=== PATIENT | male | born 1940 | race Caucasian/White ===

== ENCOUNTER 2018-08-19 12:49 | Inpatient (IN) | payer MEDICARE, SELFPAY ==
[2018-08-19 12:50] VITALS: BP 153/75; PULSE 55; RESP 16; TEMP 36.6; O2SAT 95; BMI 29.8
[2018-08-19 12:54] VITALS: PULSE 55; RESP 18; O2SAT 94
--- NOTE | 2018-08-19 13:23 | RAD_ITS ---
STUDY: X-RAY CHEST REASON FOR EXAM: Male, 78 years old. Preoperative evaluation. TECHNIQUE: Single AP portable view of the chest. COMPARISON: Comparison is made with prior study dated November 22, 2015. FINDINGS: Stable elevation of the left hemidiaphragm. Mild increased markings at the left lung base suggests above the scarring. There is no demonstrated pleural abnormality. Normal size heart. Normal mediastinum and cuca. Normal visualized pulmonary arteries. There is atherosclerotic tortuosity of the aortic arch and descending thoracic aorta. There are diffuse degenerative changes of the visualized thoracic spine. Prior fusion of the lower cervical spine. Surgical clips are seen in the left upper quadrant. RAD/Chest 1 View (Portable) IMPRESSION: Stable elevation of the left hemidiaphragm with mild left basilar scarring. Electronically Signed: Missael Sterling MD at 14:18 EDT Tel [phone], Service support ,
--- NOTE | 2018-08-19 13:23 | RAD_ITS ---
STUDY: X-RAY - PELVIS AND RIGHT HIP REASON FOR EXAM: Male, 78 years old. Right hip pain following a fall. TECHNIQUE: Radiological exam, hip, unilateral, with pelvis when performed; 2 or 3 views. COMPARISON: None. FINDINGS: There is a non-specific bowel gas pattern. There are atherosclerotic vascular calcifications of the pelvic arteries. Nondisplaced transcervical fracture of the proximal right femur. RAD/HIP, UNI W/ Pelvis 2-3 Views IMPRESSION: Nondisplaced transcervical fracture of the proximal right femur. Electronically Signed: Missael Sterling MD at 14:18 EDT Tel [phone], Service support ,
--- NOTE | 2018-08-19 13:23 | EKG12_ITS ---
Test Reason : FALL Blood Pressure : / mmHG Vent. Rate : 056 BPM Atrial Rate : 056 BPM P-R Int : 188 ms QRS Dur : 136 ms QT Int : 506 ms P-R-T Axes : 034 -18 124 degrees QTc Int : 488 ms Sinus bradycardia Left bundle branch block Abnormal ECG Confirmed by NATALIO MALCOLM, CHERRY ([id number]), book or script editor DINA KURTZ ([id number] on 08/25/2018 3:31:29 PM Referred By: James Griffiths Confirmed By:CHERRY LANCE MD
[2018-08-19] MEDS: Ondansetron 4 MG/2 ML Vial IV ×2 (13:44→20:41)
[2018-08-19] MEDS: Morphine 4 MG/ML Syringe IV ×2 (13:45→20:41)
[2018-08-19 13:50] LABS: Absolute Lymphocyte Count 2.02 X10^3/ul (0.83-4.51); Absolute Neutrophil Count 8.8 X10^3/uL (2.0-7.7); Basophil# 0.01 X10^3/uL; Basophil% 0.1 % (0-1); Eosinophil# 0.03 X10^3/uL; Eosinophils% 0.3 % (0-5); Hemoglobin 13.6 g/dl (13.0-16.5); Lymphocyte # 2.02 X10^3/ul (4.0); Lymphocyte % 17.8 % (19-41); Mean Corpuscular Hgb 31.8 pg (27.0-32.0); Mean Corpuscular Volume 93.5 fL (80-94); Mean Platelet Vol. 9.4 fl (6.2-12.0); Monocyte# 0.49 X10^3/uL; Monocyte% 4.3 % (0-10); Neutrophil # 8.76 X10^3/uL (2.7-7.7); Neutrophil % 77.3 % (47-70); POSITIVE COUNT NO; POSITIVE DIFFERENTIAL NO; POSITIVE MORPHOLOGY NO; Platelet Count 190 K/mm3 (150-450); RBC Distribution Width CV 16.2 % (11.6-14.6); RBC Distribution Width SD 53.6 fl (35.1-43.9); Red Blood Count 4.28 M/mm3 (4.6-6.2); White Blood Count 11.3 K/mm3 (4.4-11.0)
[2018-08-19 13:51] LABS: International Normalized Ratio 1.1; Prothrombin Time (Protime)PT. 14.1 SECONDS (11.7-14.9)
[2018-08-19 13:56] LABS: Anion Gap 5 (5-15); BUN 20 mg/dL (7-18); BUN/Creat Ratio 21.6 RATIO (10-20); Calcium,Total 9.2 mg/dL (8.5-10.1); Chloride 108 mmol/L (98-107); Creatinine, Serum 0.93 mg/dL (0.70-1.30); EST Glomerular Filtration Rate 84 mL/min (>60); Est Glom Filt Rate - Afr Amer 102 mL/min (>60); Estimated Creatinine Clearance 58.78 ml/min; Glucose 90 mg/dL (74-106); Potassium 4.4 mmol/L (3.5-5.1); Sodium Level 140 mmol/L (136-145)
[2018-08-19 14:47] VITALS: BP 118/58; PULSE 58; RESP 16; O2SAT 93
--- NOTE | 2018-08-19 15:12 | ED.DCSUM_ITS ---
- ER Visit Summary Date of Service: 08/19/18 Chief Complaint: Hip pain History of Present Illness: Is a pleasant 78-year-old male who presents with right hip pain after a fall. He fell while walking down the steps. He states he lost his balance. He fell down about 3 steps onto his right side. He complains of right hip pain. This is only mild while laying in the bed but is severe with attempts at movement. He was unable to ambulate unable to get up on his own. He did not have a phone with him. He was found by family member when they came home for lunch a few hours later. He denies any significant head injury. He denies loss of consciousness amnesia headache or vomiting. He is not anticoagulated. He complains of isolated right hip pain. Physical Examination: Afebrile vitals unremarkable No distress Heart regular rate and rhythm Lungs clear Abdomen soft Painful limited range of motion of the right hip he is neurovascularly intact distally with brisk capillary refill normal sensation light touch active full range of motion of the left lower and bilateral upper extremities GCS of 15 with no focal or lateralizing neurological deficits Test Results: EKG shows sinus rhythm at a rate of 56. Chest x-ray shows left basilar scarring. Right hip x-ray shows a transcervical right femur fracture. Serum laboratory studies are unremarkable. Emergency Department Course and Treatment: Patient was treated with morphine and Zofran here. Workup as above notable for right hip fracture. I spoke to Dr. Parker who will see the patient in consultation and the patient was admitted under the hospitalist service. Treatment Plan: [] Disposition: Admit Impression: Right hip fracture This note was generated with [employer] dictation software. It may contain incorrect words, spelling, and punctuation that were not noted in review of the chart prior to signing ED Disposition - Plan for ED Patient: Chief Complaint: Fall Referrals: Wilfred Vázquez III, MD [Primary Care Provider] -
--- NOTE | 2018-08-19 15:28 | PCM.HP.STD ---
<Estrella Rendon - Last Filed: 08/19/18 15:43> Problem List (1) BPH Status: Chronic (2) Chronic systolic congestive heart failur Status: Chronic Comment: Ejection fraction 35% in 2013, following with Dr. 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 Zamoarno, in remission Follow up with Dr. Mercado after discharge. (6) Hypertension Status: Chronic (7) Multilobar Pneumonia Status: Resolved (8) Ethmoid sinusitis Status: Resolved (9) Tendonitis Status: Resolved Comment: Acute Longus Colii tendonitis noted on MRI C-spine. (10) Acute kidney injury Status: Resolved Comment: Prerenal azotemia secondary to poor oral intake. (11) Hyperlipidemia Status: Chronic History of Present Illness Date of Admission: 08/19/18 Chief Complaint: Fall, right hip pain. The patient is a 78 year old M who presents to the emergency room with right hip pain after sustaining a fall this morning at home. Patient states he was walking down the steps and thinks he missed the bottom step, causing him to fall. He denies syncope. Denies hitting head. He was not able to get up due to hip pain and remained on the floor for 3 hours until returned home. He denies symptoms prior to fall. Denies recent or frequent falls at home. He has a past medical history of type 2 diabetes mellitus, chronic systolic CHF, BPH, gout, hypertension, hyperlipidemia, and remote history of hairy cell leukemia. Past Medical History Past Medical History (Chronic Problems): Chronic Problems (Last Updated 04/29/18 @ 15:17 by Pushpa Diez) BPH (Chronic) Chronic systolic congestive heart failur (Chronic) Ejection fraction 35% in 2013, following with Dr. Oliva Status post cardiac catheterization 2004, without obstructive coronary artery disease Diabetes mellitus type II (Chronic) Gout (Chronic) History of remote hairy cell leukemia (Chronic) Was following with Dr. Zamorano, in remission Follow up with Dr. Mercado after discharge. Hypertension (Chronic) Hyperlipidemia (Chronic) Medical History: Medical History (Last Updated 04/29/18 @ 15:17 by Pushpa Diez) Encephalopathy G93.40 Hairy cell leukemia C91.40 Allergies No Known Allergies Allergy (Verified 08/19/18 12:53) Home Medications: Ambulatory Orders Medication Instructions Recorded Atorvastatin Calcium [Lipitor] 10 mg PO QHS 11/20/15 Doxazosin Mesylate [Cardura] 1 mg PO QHS 11/20/15 Metformin HCl [Glucophage] 500 mg PO BIDCM 11/20/15 Donepezil HCl [Aricept] 5 mg PO DAILY 11/28/17 Meloxicam 7.5 mg PO DAILY 11/28/17 Paroxetine [Paxil] 10 mg PO DAILY 11/28/17 Allopurinol [Zyloprim] 300 mg PO DAILY 04/30/18 Surgical History: - - Splenectomy, back surgery x2, tonsillectomy, knee surgery. Psychiatric History: No pertinent psych hx Lives: Spouse/ Significant Other Smoking Status: Former smoker - 16-buog-qibi smoking history, quit in 1998. Alcohol: None Drugs: None - *Family History Maternal History Items: Cancer - Ovarian Paternal History Items: Hypertension - Passed from MD Review of Systems Constitutional: Denies: Chills, Fever, Weight Change HEENT: Denies: Head Aches, Sinus Congestion, Sinus Drainage Cardiovascular: Denies: Chest Pain, Palpitations Respiratory: Denies: Cough, Shortness of breath at rest, Sputum production Gastrointestinal: Denies: Abdominal Pain, Nausea, Vomiting Genitourinary: Denies: Dysuria Musculoskeletal: Reports: - - Right hip pain. Skin: Denies: Rash, Wounds Neurological: Denies: Numbness, Tingling, Focal weakness Psychiatric: Denies: Anxiety, Depression, Homicidal Ideations, Suicidal Ideations Hematologic/ Lymphatic: Denies: Easy Bruising, Easy Bleeding VTE Information - Inpt Only VTE Present on Admission: No VTE Mechan Device Prophylaxis: None VTE Pharm Prophylaxis ordered?: Yes Patient Problems: Active and Suspected Problems (Last Updated 04/29/18 @ 15:17 by Pushpa Diez) Closed right hip fracture (Acute) - Physical Exam General: Alert, Oriented x3, Cooperative, No apparent distress HEENT: Atraumatic, PERRLA, EOMI, Normocephalic Neck: Supple, No JVD, Negative Carotid Bruits Lungs: Clear to auscultation, Normal air movement Cardiovascular: Regular Rhythm, Normal S1, Normal S2, No murmurs, Bradycardic - Mild Abdomen: Bowel Sounds Present, Soft, Non Tender, Non-Distended Extremities: No clubbing, No cyanosis, No edema, Capillary Refill Less than 3 Seconds Skin: No rashes, No breakdown, - - Left arm skin tears. BLUE ecchymosis. Musculoskeletal: Tenderness - Right hip Neurological: Cranial nerves II-XII grossly intact, Neuro grossly intact Psych/Mental Status: Normal Affect, Appropriate Vital Signs Temp Pulse Resp BP Pulse Ox 97.8 F 58 L 16 118/58 L 93 08/19/18 12:50 08/19/18 14:47 08/19/18 14:47 08/19/18 14:47 08/19/18 14:47 Oxygen Delivery Method Room Air Weight: 179 lb 3.773 oz Body Mass Index (BMI) 29.8 Laboratory Tests Past 24 Hrs 08/19/18 08/19/18 08/19/18 13:35 13:35 13:35 WBC 11.3 H RBC 4.28 L Hgb 13.6 Hct 40.0 MCV 93.5 MCH 31.8 MCHC 34.0 RDW 16.2 H RDW Differential 53.6 H Plt Count 190 MPV 9.4 Immature Gran % (Auto) 0.200 Neut % (Auto) 77.3 H Lymph % (Auto) 17.8 L Walton % (Auto) 4.3 Eos % (Auto) 0.3 Baso % (Auto) 0.1 Absolute Neuts (auto) 8.8 H Absolute Lymphs (auto) 2.02 Total Counted Not Reportable PT 14.1 INR 1.1 Sodium 140 Potassium 4.4 Chloride 108 H Carbon Dioxide 27.0 Anion Gap 5 BUN 20 H Creatinine 0.93 Estim Creat Clear Calc 58.78 Est GFR (MDRD) Af Amer 102 Est GFR (MDRD) Non-Af 84 BUN/Creatinine Ratio 21.6 H Glucose 90 Calcium 9.2 Assessment/Plan All Active Problems (Last Updated 04/29/18 @ 15:17 by Pushpa Diez) Closed right hip fracture (Acute) Acute kidney injury (Resolved) Ethmoid sinusitis (Resolved) Multilobar Pneumonia (Resolved) Tendonitis (Resolved) 1. Traumatic proximal right femur fracture, nondisplaced, secondary to mechanical fall prior to admission- Dr. Parker, ortho consulted from ER. PT/OT. PRN pain regimen. 2. Hypertension-mildly elevated on admission, suspect secondary to pain. Patient not on regimen although reported history of HTN. Continue to monitor. 3. Hyperlipidemia-continue statin. 4. Type 2 diabetes mellitus-hold metformin regimen. Accu-Cheks before meals at bedtime with sliding scale insulin. 5. Chronic systolic CHF-patient follows with Dr. Wells, [facility] cardiology. EF reported to be 35% in 2013. Patient states he had routine cardiac workup [address] Shah which included repeat echo and EKG. Request records. 6. BPH-continue doxazosin regimen. 7. Gout-continue allopurinol regimen. 8. 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 Continue outpatient routine follow-up with oncology. 9. Mild cognitive impairment/depression-continue home Aricept and paroxetine regimen. DVT prophylaxis- Lovenox sc. This patient was seen by TAMMY Jimenez under the supervision of Dr. Griffiths. <James Griffiths - Last Filed: 08/19/18 15:54> Problem List (1) Closed right hip fracture Status: Acute Qualifiers: Encounter type: initial encounter Qualified Code(s): S72.001A - Fracture of unspecified part of neck of right femur, initial encounter for closed fracture History of Present Illness The patient is a 78 year old M who slipped off a step landed on his right hip. Patient was unable to get up and unable to contact anyone so he laid on his back for about 3 hours. Patient's arrived and noticed that he was on the floor and then 911. Patient presented to the emergency room and had a proximal right femur fracture. Dr. Sandoval of orthopedics was contacted and would see the patient in consultation. The hospital service will be admitting. [] Past Medical History Medical History: Medical History (Last Updated 08/19/18 @ 15:49 by James Griffiths DO) DM2 (diabetes mellitus, type 2) E11.9 Gout M10.9 Heart failure with reduced ejection fraction I50.20 HTN (hypertension) I10 Encephalopathy G93.40 Hairy cell leukemia C91.40 Allergies No Known Allergies Allergy (Verified 08/19/18 12:53) Surgical History: - Psychiatric History: No pertinent psych hx Lives: Spouse/ Significant Other Smoking Status: Former smoker Alcohol: None Drugs: None - *Family History Maternal History Items: Cancer Paternal History Items: Hypertension Review of Systems Constitutional: Denies: Chills, Fever, Weight Change HEENT: Denies: Head Aches, Sinus Congestion, Sinus Drainage Cardiovascular: Denies: Chest Pain, Palpitations Respiratory: Denies: Cough, Shortness of breath at rest, Sputum production Gastrointestinal: Denies: Abdominal Pain, Nausea, Vomiting Genitourinary: Denies: Dysuria Musculoskeletal: Reports: - Skin: Denies: Rash, Wounds Neurological: Denies: Focal weakness, Numbness, Tingling Psychiatric: Denies: Anxiety, Depression, Homicidal Ideations, Suicidal Ideations Hematologic/ Lymphatic: Denies: Easy Bruising, Easy Bleeding Comment: All review of systems are negative except as mentioned in the history of present illness and the other review of systems. VTE Information - Inpt Only VTE Present on Admission: No VTE Mechan Device Prophylaxis: SCD's VTE Pharm Prophylaxis ordered?: No - Physical Exam General: Alert, Cooperative, No apparent distress HEENT: Atraumatic, Normocephalic Neck: No Nodes, Thyroid Normal Size and Texture Lungs: Clear to auscultation, Normal air movement Cardiovascular: Regular Rhythm, Normal S1, Normal S2, No murmurs Abdomen: Bowel Sounds Present, Soft, Non Tender, Non-Distended Extremities: No edema, No Calf Tenderness, - - Shortened right lower extremity as compared to the left Skin: No rashes, No breakdown, - Musculoskeletal: Tenderness Neurological: Cranial nerves II-XII grossly intact, Neuro grossly intact Psych/Mental Status: Normal Affect, Appropriate Vital Signs Temp Pulse Resp BP Pulse Ox 36.6 C 58 L 16 118/58 L 93 08/19/18 12:50 08/19/18 14:47 08/19/18 14:47 08/19/18 14:47 08/19/18 14:47 Oxygen Delivery Method Room Air Weight: 81.3 kg Body Mass Index (BMI) 29.8 Laboratory Tests Past 24 Hrs 08/19/18 08/19/18 08/19/18 13:35 13:35 13:35 WBC 11.3 H RBC 4.28 L Hgb 13.6 Hct 40.0 MCV 93.5 MCH 31.8 MCHC 34.0 RDW 16.2 H RDW Differential 53.6 H Plt Count 190 MPV 9.4 Immature Gran % (Auto) 0.200 Neut % (Auto) 77.3 H Lymph % (Auto) 17.8 L Walton % (Auto) 4.3 Eos % (Auto) 0.3 Baso % (Auto) 0.1 Absolute Neuts (auto) 8.8 H Absolute Lymphs (auto) 2.02 Total Counted Not Reportable PT 14.1 INR 1.1 Sodium 140 Potassium 4.4 Chloride 108 H Carbon Dioxide 27.0 Anion Gap 5 BUN 20 H Creatinine 0.93 Estim Creat Clear Calc 58.78 Est GFR (MDRD) Af Amer 102 Est GFR (MDRD) Non-Af 84 BUN/Creatinine Ratio 21.6 H Glucose 90 Calcium 9.2 Clinical Impression(s) from Imaging Studies Chest X-Ray 08/19/18 13:23 IMPRESSION: Stable elevation of the left hemidiaphragm with mild left basilar scarring. Electronically Signed: Missael Sterling MD at 14:18 EDT Tel [phone], Service support , Hip/Pelvis X-Ray 08/19/18 13:23 IMPRESSION: Nondisplaced transcervical fracture of the proximal right femur. Electronically Signed: Missael Sterling MD at 14:18 EDT Tel [phone], Service support , EKG reviewed and showed normal sinus with a left bundle branch block. Unchanged from November 20, 2015. Assessment/Plan Patient seen and examined independently. Data reviewed. I agree with the above note by the nurse practitioner. 1. Right hip fracture/proximal right femur fracture Due to a mechanical fall Patient able to engage in greater than 4 mets of activity so patient is medically cleared to proceed with surgery Will check a 25-hydroxy vitamin D level and patient may require supplementation with vitamin D supplements based on those results. 2. Heart failure with reduced ejection fraction EF of 35% based on echocardiogram from 2013 Recently saw his beach attendant and was deemed stable at that time Caution with IV fluids if necessary 3. Diabetes mellitus type 2 Hold metformin for now Moderate dose sliding scale 4. DVT prophylaxis with SCDs for now after surgery, though will be to the discretion of orthopedics. Code Visit Inpatient E&M: 45424 Init Hosp L3
--- NOTE | 2018-08-19 15:32 | HP.PCM_ITS ---
<Estrella Rendon - Last Filed: 08/19/18 15:43> Problem List (1) BPH Status: Chronic (2) Chronic systolic congestive heart failur Status: Chronic Comment: Ejection fraction 35% in 2013, following with Dr. 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 Zamorano, in remission Follow up with Dr. Mercado after discharge. (6) Hypertension Status: Chronic (7) Multilobar Pneumonia Status: Resolved (8) Ethmoid sinusitis Status: Resolved (9) Tendonitis Status: Resolved Comment: Acute Longus Colii tendonitis noted on MRI C-spine. (10) Acute kidney injury Status: Resolved Comment: Prerenal azotemia secondary to poor oral intake. (11) Hyperlipidemia Status: Chronic History of Present Illness Date of Admission: 08/19/18 Chief Complaint: Fall, right hip pain. The patient is a 78 year old M who presents to the emergency room with right hip pain after sustaining a fall this morning at home. Patient states he was walking down the steps and thinks he missed the bottom step, causing him to fall. He denies syncope. Denies hitting head. He was not able to get up due to hip pain and remained on the floor for 3 hours until returned home. He denies symptoms prior to fall. Denies recent or frequent falls at home. He has a past medical history of type 2 diabetes mellitus, chronic systolic CHF, BPH, gout, hypertension, hyperlipidemia, and remote history of hairy cell leukemia. Past Medical History Past Medical History (Chronic Problems): Chronic Problems (Last Updated 04/29/18 @ 15:17 by Pushpa Diez) BPH (Chronic) Chronic systolic congestive heart failur (Chronic) Ejection fraction 35% in 2013, following with Dr. Oliva Status post cardiac catheterization 2004, without obstructive coronary artery disease Diabetes mellitus type II (Chronic) Gout (Chronic) History of remote hairy cell leukemia (Chronic) Was following with Dr. Zamorano, in remission Follow up with Dr. Mercado after discharge. Hypertension (Chronic) Hyperlipidemia (Chronic) Medical History: Medical History (Last Updated 04/29/18 @ 15:17 by Pushpa Diez) Encephalopathy G93.40 Hairy cell leukemia C91.40 Allergies No Known Allergies Allergy (Verified 08/19/18 12:53) Home Medications: Ambulatory Orders Medication Instructions Recorded Atorvastatin Calcium [Lipitor] 10 mg PO QHS 11/20/15 Doxazosin Mesylate [Cardura] 1 mg PO QHS 11/20/15 Metformin HCl [Glucophage] 500 mg PO BIDCM 11/20/15 Donepezil HCl [Aricept] 5 mg PO DAILY 11/28/17 Meloxicam 7.5 mg PO DAILY 11/28/17 Paroxetine [Paxil] 10 mg PO DAILY 11/28/17 Allopurinol [Zyloprim] 300 mg PO DAILY 04/30/18 Surgical History: - - Splenectomy, back surgery x2, tonsillectomy, knee surgery. Psychiatric History: No pertinent psych hx Lives: Spouse/ Significant Other Smoking Status: Former smoker - [id number] smoking history, quit in 1998. Alcohol: None Drugs: None - *Family History Maternal History Items: Cancer - Ovarian Paternal History Items: Hypertension - Passed from [place] Review of Systems Constitutional: Denies: Chills, Fever, Weight Change HEENT: Denies: Head Aches, Sinus Congestion, Sinus Drainage Cardiovascular: Denies: Chest Pain, Palpitations Respiratory: Denies: Cough, Shortness of breath at rest, Sputum production Gastrointestinal: Denies: Abdominal Pain, Nausea, Vomiting Genitourinary: Denies: Dysuria Musculoskeletal: Reports: - - Right hip pain. Skin: Denies: Rash, Wounds Neurological: Denies: Numbness, Tingling, Focal weakness Psychiatric: Denies: Anxiety, Depression, Homicidal Ideations, Suicidal Ideations Hematologic/ Lymphatic: Denies: Easy Bruising, Easy Bleeding VTE Information - Inpt Only VTE Present on Admission: No VTE Mechan Device Prophylaxis: None VTE Pharm Prophylaxis ordered?: Yes Patient Problems: Active and Suspected Problems (Last Updated 04/29/18 @ 15:17 by Pushpa Diez) Closed right hip fracture (Acute) - Physical Exam General: Alert, Oriented x3, Cooperative, No apparent distress HEENT: Atraumatic, PERRLA, EOMI, Normocephalic Neck: Supple, No JVD, Negative Carotid Bruits Lungs: Clear to auscultation, Normal air movement Cardiovascular: Regular Rhythm, Normal S1, Normal S2, No murmurs, Bradycardic - Mild Abdomen: Bowel Sounds Present, Soft, Non Tender, Non-Distended Extremities: No clubbing, No cyanosis, No edema, Capillary Refill Less than 3 Seconds Skin: No rashes, No breakdown, - - Left arm skin tears. BLUE ecchymosis. Musculoskeletal: Tenderness - Right hip Neurological: Cranial nerves II-XII grossly intact, Neuro grossly intact Psych/Mental Status: Normal Affect, Appropriate Vital Signs Temp Pulse Resp BP Pulse Ox 97.8 F 58 L 16 118/58 L 93 08/19/18 12:50 08/19/18 14:47 08/19/18 14:47 08/19/18 14:47 08/19/18 14:47 Oxygen Delivery Method Room Air Weight: 179 lb 3.773 oz Body Mass Index (BMI) 29.8 Laboratory Tests Past 24 Hrs 08/19/18 08/19/18 08/19/18 13:35 13:35 13:35 WBC 11.3 H RBC 4.28 L Hgb 13.6 Hct 40.0 MCV 93.5 MCH 31.8 MCHC 34.0 RDW 16.2 H RDW Differential 53.6 H Plt Count 190 MPV 9.4 Immature Gran % (Auto) 0.200 Neut % (Auto) 77.3 H Lymph % (Auto) 17.8 L [place] % (Auto) 4.3 Eos % (Auto) 0.3 Baso % (Auto) 0.1 Absolute Neuts (auto) 8.8 H Absolute Lymphs (auto) 2.02 Total Counted Not Reportable PT 14.1 INR 1.1 Sodium 140 Potassium 4.4 Chloride 108 H Carbon Dioxide 27.0 Anion Gap 5 BUN 20 H Creatinine 0.93 Estim Creat Clear Calc 58.78 Est GFR (MDRD) Af Amer 102 Est GFR (MDRD) Non-Af 84 BUN/Creatinine Ratio 21.6 H Glucose 90 Calcium 9.2 Assessment/Plan All Active Problems (Last Updated 04/29/18 @ 15:17 by Pushpa Diez) Closed right hip fracture (Acute) Acute kidney injury (Resolved) Ethmoid sinusitis (Resolved) Multilobar Pneumonia (Resolved) Tendonitis (Resolved) 1. Traumatic proximal right femur fracture, nondisplaced, secondary to mechanical fall prior to admission- Dr. Parker, ortho consulted from ER. PT/OT. PRN pain regimen. 2. Hypertension-mildly elevated on admission, suspect secondary to pain. Patient not on regimen although reported history of HTN. Continue to monitor. 3. Hyperlipidemia-continue statin. 4. Type 2 diabetes mellitus-hold metformin regimen. Accu-Cheks before meals at bedtime with sliding scale insulin. 5. Chronic systolic CHF-patient follows with Dr. Wells, [facility] cardiology. EF reported to be 35% in 2013. Patient states he had routine cardiac workup [address] Shah which included repeat echo and EKG. Request records. 6. BPH-continue doxazosin regimen. 7. Gout-continue allopurinol regimen. 8. 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 Continue outpatient routine follow-up with oncology. 9. Mild cognitive impairment/depression-continue home Aricept and paroxetine regimen. DVT prophylaxis- Lovenox sc. This patient was seen by TAMMY Jimenez under the supervision of Dr. Griffiths. <James Griffiths - Last Filed: 08/19/18 15:54> Problem List (1) Closed right hip fracture Status: Acute Qualifiers: Encounter type: initial encounter Qualified Code(s): S72.001A - Fracture of unspecified part of neck of right femur, initial encounter for closed fracture History of Present Illness The patient is a 78 year old M who slipped off a step landed on his right hip. Patient was unable to get up and unable to contact anyone so he laid on his back for about 3 hours. Patient's arrived and noticed that he was on the floor and then 911. Patient presented to the emergency room and had a proximal right femur fracture. Dr. Sandoval of orthopedics was contacted and would see the patient in consultation. The hospital service will be admitting. [] Past Medical History Medical History: Medical History (Last Updated 08/19/18 @ 15:49 by James Griffiths DO) DM2 (diabetes mellitus, type 2) E11.9 Gout M10.9 Heart failure with reduced ejection fraction I50.20 HTN (hypertension) I10 Encephalopathy G93.40 Hairy cell leukemia C91.40 Allergies No Known Allergies Allergy (Verified 08/19/18 12:53) Surgical History: - Psychiatric History: No pertinent psych hx Lives: Spouse/ Significant Other Smoking Status: Former smoker Alcohol: None Drugs: None - *Family History Maternal History Items: Cancer Paternal History Items: Hypertension Review of Systems Constitutional: Denies: Chills, Fever, Weight Change HEENT: Denies: Head Aches, Sinus Congestion, Sinus Drainage Cardiovascular: Denies: Chest Pain, Palpitations Respiratory: Denies: Cough, Shortness of breath at rest, Sputum production Gastrointestinal: Denies: Abdominal Pain, Nausea, Vomiting Genitourinary: Denies: Dysuria Musculoskeletal: Reports: - Skin: Denies: Rash, Wounds Neurological: Denies: Focal weakness, Numbness, Tingling Psychiatric: Denies: Anxiety, Depression, Homicidal Ideations, Suicidal Ideations Hematologic/ Lymphatic: Denies: Easy Bruising, Easy Bleeding Comment: All review of systems are negative except as mentioned in the history of present illness and the other review of systems. VTE Information - Inpt Only VTE Present on Admission: No VTE Mechan Device Prophylaxis: SCD's VTE Pharm Prophylaxis ordered?: No - Physical Exam General: Alert, Cooperative, No apparent distress HEENT: Atraumatic, Normocephalic Neck: No Nodes, Thyroid Normal Size and Texture Lungs: Clear to auscultation, Normal air movement Cardiovascular: Regular Rhythm, Normal S1, Normal S2, No murmurs Abdomen: Bowel Sounds Present, Soft, Non Tender, Non-Distended Extremities: No edema, No Calf Tenderness, - - Shortened right lower extremity as compared to the left Skin: No rashes, No breakdown, - Musculoskeletal: Tenderness Neurological: Cranial nerves II-XII grossly intact, Neuro grossly intact Psych/Mental Status: Normal Affect, Appropriate Vital Signs Temp Pulse Resp BP Pulse Ox 36.6 C 58 L 16 118/58 L 93 08/19/18 12:50 08/19/18 14:47 08/19/18 14:47 08/19/18 14:47 08/19/18 14:47 Oxygen Delivery Method Room Air Weight: 81.3 kg Body Mass Index (BMI) 29.8 Laboratory Tests Past 24 Hrs 08/19/18 08/19/18 08/19/18 13:35 13:35 13:35 WBC 11.3 H RBC 4.28 L Hgb 13.6 Hct 40.0 MCV 93.5 MCH 31.8 MCHC 34.0 RDW 16.2 H RDW Differential 53.6 H Plt Count 190 MPV 9.4 Immature Gran % (Auto) 0.200 Neut % (Auto) 77.3 H Lymph % (Auto) 17.8 L [place] % (Auto) 4.3 Eos % (Auto) 0.3 Baso % (Auto) 0.1 Absolute Neuts (auto) 8.8 H Absolute Lymphs (auto) 2.02 Total Counted Not Reportable PT 14.1 INR 1.1 Sodium 140 Potassium 4.4 Chloride 108 H Carbon Dioxide 27.0 Anion Gap 5 BUN 20 H Creatinine 0.93 Estim Creat Clear Calc 58.78 Est GFR (MDRD) Af Amer 102 Est GFR (MDRD) Non-Af 84 BUN/Creatinine Ratio 21.6 H Glucose 90 Calcium 9.2 Clinical Impression(s) from Imaging Studies Chest X-Ray 08/19/18 13:23 IMPRESSION: Stable elevation of the left hemidiaphragm with mild left basilar scarring. Electronically Signed: Missael Sterling MD at 14:18 EDT Tel [phone], Service support , Hip/Pelvis X-Ray 08/19/18 13:23 IMPRESSION: Nondisplaced transcervical fracture of the proximal right femur. Electronically Signed: Missael Sterling MD at 14:18 EDT Tel [phone], Service support , EKG reviewed and showed normal sinus with a left bundle branch block. Unchanged from November 20, 2015. Assessment/Plan Patient seen and examined independently. Data reviewed. I agree with the above note by the nurse practitioner. 1. Right hip fracture/proximal right femur fracture * Due to a mechanical fall * Patient able to engage in greater than 4 mets of activity so patient is medically cleared to proceed with surgery * Will check a 25-hydroxy vitamin D level and patient may require supplementation with vitamin D supplements based on those results. 2. Heart failure with reduced ejection fraction * EF of 35% based on echocardiogram from 2013 * Recently saw his enterprise systems manager and was deemed stable at that time * Caution with IV fluids if necessary 3. Diabetes mellitus type 2 * Hold metformin for now * Moderate dose sliding scale 4. DVT prophylaxis with SCDs for now after surgery, though will be to the discretion of orthopedics. Code Visit Inpatient E&M: 85228 Init Hosp L3
--- NOTE | 2018-08-19 15:34 | CM.ED ---
Patient lives in a one story home with stairs to the basement. He fell walking down the stairs today and now has a femur fracture. Discussed options for discharge planning with patient and spouse. Patient states his preference is for TCU. He stayed on TCU, in 2016, following a hospital admission. Call placed to Referral Line. Case discussed with Carmelina Davenport. She states she will have bed availability and will reserve a bed for the patient on TCU.
[2018-08-19 15:57] VITALS: BP 145/68; PULSE 52; RESP 16; TEMP 36.3; O2SAT 95
[2018-08-19] MEDS: Morphine 2 MG/ML Syringe IV (16:01)
[2018-08-19 16:11] VITALS: BMI 25.9
[2018-08-19 16:12] VITALS: BMI 26.0
--- NOTE | 2018-08-19 16:41 | CON.PCM_ITS ---
Reason for Consult Date of Consultation: 08/19/18 Reason for Consultation: right hip pain History of Present Illness: The patient is a 78 year old M [who fell at home today going down the stairs. He presented to [facility] ED reporting right hip pain. X-rays showed a subcapital fracture of the right hip. He was admitted to the hospital by the hospitalist and complains of only right hip pain. Denies N/T/P or other areas of pain.] Past Medical History Past Medical History (Chronic Problems): Chronic Problems (Last Updated 08/19/18 @ 15:49 by James Griffiths DO) BPH (Chronic) Chronic systolic congestive heart failur (Chronic) Ejection fraction 35% in 2013, following with Dr. Oliva Status post cardiac catheterization 2004, without obstructive coronary artery disease Diabetes mellitus type II (Chronic) Gout (Chronic) History of remote hairy cell leukemia (Chronic) Was following with Dr. Zamorano, in remission Follow up with Dr. Mercado after discharge. Hypertension (Chronic) Hyperlipidemia (Chronic) Medical History: Medical History (Last Updated 08/19/18 @ 15:49 by James Griffiths DO) DM2 (diabetes mellitus, type 2) E11.9 Gout M10.9 Heart failure with reduced ejection fraction I50.20 HTN (hypertension) I10 Encephalopathy G93.40 Hairy cell leukemia C91.40 Allergies No Known Allergies Allergy (Verified 08/19/18 12:53) Home Medications: Ambulatory Orders Medication Instructions Recorded Atorvastatin Calcium [Lipitor] 10 mg PO QHS 11/20/15 Doxazosin Mesylate [Cardura] 1 mg PO QHS 11/20/15 Metformin HCl [Glucophage] 500 mg PO BIDCM 11/20/15 Donepezil HCl [Aricept] 5 mg PO QHS 11/28/17 Meloxicam 7.5 mg PO DAILY 11/28/17 Paroxetine [Paxil] 10 mg PO DAILY 11/28/17 Allopurinol [Zyloprim] 300 mg PO DAILY 04/30/18 Surgical History: - Psychiatric History: No pertinent psych hx Lives: Spouse/ Significant Other Smoking Status: Former smoker Tobacco Use: Cigarettes Alcohol: None Drugs: None - *Family History Maternal History Items: Cancer Paternal History Items: Hypertension Patient Problems: Active and Suspected Problems (Last Updated 08/19/18 @ 15:49 by James Griffiths DO) Closed right hip fracture (Acute) - Physical Exam General: Alert, Oriented x3, No apparent distress HEENT: Atraumatic Neck: Supple, Trachea Midline Extremities: No clubbing, No cyanosis, Capillary Refill Less than 3 Seconds, No Calf Tenderness, Tenderness - Right hip RLE shortened and externally rotated. ROM not tested due to known fracture. Neurological: Neuro grossly intact Psych/Mental Status: Appropriate Vital Signs Temp Pulse Resp BP Pulse Ox 97.4 F L 52 L 16 145/68 H 95 08/19/18 15:57 08/19/18 15:57 08/19/18 15:57 08/19/18 15:57 08/19/18 15:57 Oxygen Flow Rate (L/min) 2 Oxygen Delivery Method Nasal Cannula Weight: 161 lb 2.526 oz Body Mass Index (BMI) 25.9 Laboratory Tests Past 24 Hrs 08/19/18 08/19/18 08/19/18 13:35 13:35 13:35 WBC 11.3 H RBC 4.28 L Hgb 13.6 Hct 40.0 MCV 93.5 MCH 31.8 MCHC 34.0 RDW 16.2 H RDW Differential 53.6 H Plt Count 190 MPV 9.4 Immature Gran % (Auto) 0.200 Neut % (Auto) 77.3 H Lymph % (Auto) 17.8 L [place] % (Auto) 4.3 Eos % (Auto) 0.3 Baso % (Auto) 0.1 Absolute Neuts (auto) 8.8 H Absolute Lymphs (auto) 2.02 Total Counted Not Reportable PT 14.1 INR 1.1 Sodium 140 Potassium 4.4 Chloride 108 H Carbon Dioxide 27.0 Anion Gap 5 BUN 20 H Creatinine 0.93 Estim Creat Clear Calc 58.78 Est GFR (MDRD) Af Amer 102 Est GFR (MDRD) Non-Af 84 BUN/Creatinine Ratio 21.6 H Glucose 90 Calcium 9.2 Assessment/Plan All Active Problems (Last Updated 08/19/18 @ 15:49 by James Griffiths DO) Closed right hip fracture (Acute) Acute kidney injury (Resolved) Ethmoid sinusitis (Resolved) Multilobar Pneumonia (Resolved) Tendonitis (Resolved) Garden classification IV right subcapital hip fracture Will plan on cemented hemiarthroplasty of the right hip tomorrow PM. All risks, benefits, potential complications and alternatives to surgery discusses with patient.
[2018-08-19] MEDS: oxyCODONE 5 MG Tablet PO ×2 (16:43→22:43)
[2018-08-19] MEDS: Acetaminophen 325 MG Tablet 650 MG PO ×2 (16:43→22:43)
[2018-08-19 16:55] LABS: Bedside Glucose 83 mg/dL (70-110)
[2018-08-19 20:26] VITALS: BP 134/59; PULSE 62; RESP 16; TEMP 36.6; O2SAT 97
[2018-08-19] MEDS: Atorvastatin Calcium 10 MG Tablet PO (20:41)
[2018-08-19] MEDS: Doxazosin 1 MG Tablet PO (20:41)
[2018-08-19] MEDS: 0.9% NaCl Peripheral Flush Adult/Peds IV (20:41)
[2018-08-19] MEDS: Donepezil HCl 5 MG Tablet PO (20:41)
[2018-08-19 22:41] LABS: Bedside Glucose 113 mg/dL (70-110)
[2018-08-20] VITALS (14 sets, daily range): BP systolic 108–151; BP diastolic 53–118; PULSE 58–122; RESP 16–18; TEMP 36.4–37.7; O2SAT 91–98; BMI 25.9; BMI 26.0
[2018-08-20] MEDS: 0.9% NaCl Peripheral Flush Adult/Peds IV ×2 (01:11→15:02)
[2018-08-20] MEDS: Morphine 4 MG/ML Syringe IV ×2 (01:11→21:18)
[2018-08-20] MEDS: oxyCODONE 5 MG Tablet PO (05:29)
[2018-08-20] MEDS: Acetaminophen 325 MG Tablet 650 MG PO (05:29)
[2018-08-20 06:31] LABS: Bedside Glucose 99 mg/dL (70-110)
[2018-08-20 06:34] LABS: Absolute Lymphocyte Count 1.89 X10^3/ul (0.83-4.51); Absolute Neutrophil Count 5.1 X10^3/uL (2.0-7.7); Basophil# 0.01 X10^3/uL; Basophil% 0.1 % (0-1); Eosinophil# 0.18 X10^3/uL; Eosinophils% 2.4 % (0-5); Hematocrit 41.3 % (40-54); Hemoglobin 13.1 g/dl (13.0-16.5); Lymphocyte # 1.89 X10^3/ul (4.0); Mean Corp Hgb Conc 31.7 g/gl (32-36); Mean Corpuscular Hgb 30.3 pg (27.0-32.0); Mean Corpuscular Volume 95.6 fL (80-94); Monocyte# 0.34 X10^3/uL; Monocyte% 4.5 % (0-10); Neutrophil # 5.13 X10^3/uL (2.7-7.7); Neutrophil % 67.9 % (47-70); POSITIVE COUNT NO; POSITIVE DIFFERENTIAL NO; POSITIVE MORPHOLOGY NO; Platelet Count 185 K/mm3 (150-450); RBC Distribution Width CV 16.4 % (11.6-14.6); RBC Distribution Width SD 58.1 fl (35.1-43.9); Red Blood Count 4.32 M/mm3 (4.6-6.2); White Blood Count 7.6 K/mm3 (4.4-11.0)
[2018-08-20 06:43] LABS: Anion Gap 6 (5-15); BUN 29 mg/dL (7-18); BUN/Creat Ratio 23.2 RATIO (10-20); Chloride 107 mmol/L (98-107); Creatinine, Serum 1.25 mg/dL (0.70-1.30); EST Glomerular Filtration Rate 60 mL/min (>60); Est Glom Filt Rate - Afr Amer 72 mL/min (>60); Estimated Creatinine Clearance 45.37 ml/min; Glucose 109 mg/dL (74-106); Potassium 4.5 mmol/L (3.5-5.1); Sodium Level 142 mmol/L (136-145)
[2018-08-20] MEDS: PARoxetine 10 MG Tablet PO (08:21)
[2018-08-20] MEDS: Allopurinol 300 MG Tablet PO (08:21)
[2018-08-20 08:42] LABS: Hemoglobin A1c 5.9 % (4.2-6.3)
[2018-08-20 09:17] LABS: Vitamin D,25 Hydroxy 18.3 ng/mL (29.95-100.01)
--- NOTE | 2018-08-20 10:21 | PN_ITS ---
<Estrella Rendon - Last Filed: 08/20/18 10:22> Patient Problems: Active and Suspected Problems (Last Updated 08/19/18 @ 15:49 by James Griffiths DO) Closed right hip fracture (Acute) Subjective: Patient seen and examined. Complains of increased right hip pain following recent repositioning. Denies other complaints. - Physical Exam General: Alert, Oriented x3, Cooperative HEENT: Atraumatic, PERRLA, EOMI, Normocephalic Neck: Supple, No JVD, Negative Carotid Bruits Lungs: Clear to auscultation, Normal air movement Cardiovascular: Regular rate, Regular Rhythm, Normal S1, Normal S2, No murmurs Abdomen: Bowel Sounds Present, Soft, Non Tender Extremities: No clubbing, No cyanosis, No edema, Capillary Refill Less than 3 Seconds Skin: No rashes, No breakdown Musculoskeletal: No Tenderness to Palpation of Joints or Extremities Neurological: Cranial nerves II-XII grossly intact, Neuro grossly intact Psych/Mental Status: Normal Affect, Appropriate Vital Signs Temp Pulse Resp BP Pulse Ox 98 F 80 16 134/84 H 97 08/20/18 05:33 08/20/18 05:33 08/20/18 05:33 08/20/18 05:33 08/20/18 05:33 Oxygen Flow Rate (L/min) 2 Oxygen Delivery Method Nasal Cannula Weight: 161 lb 2.526 oz Body Mass Index (BMI) 25.9 Intake and Output for Last 24 Hours 08/18/18 08/19/18 08/20/18 23:59 23:59 23:59 Intake Total 300 / 300 Output Total 125 / 125 275 / 275 Balance 175 / 175 -275 / -275 Laboratory Tests Past 24 Hrs 08/19/18 08/19/18 08/19/18 13:35 13:35 13:35 WBC 11.3 H RBC 4.28 L Hgb 13.6 Hct 40.0 MCV 93.5 MCH 31.8 MCHC 34.0 RDW 16.2 H RDW Differential 53.6 H Plt Count 190 MPV 9.4 Immature Gran % (Auto) 0.200 Neut % (Auto) 77.3 H Lymph % (Auto) 17.8 L [place] % (Auto) 4.3 Eos % (Auto) 0.3 Baso % (Auto) 0.1 Absolute Neuts (auto) 8.8 H Absolute Lymphs (auto) 2.02 Total Counted Not Reportable PT 14.1 INR 1.1 Sodium 140 Potassium 4.4 Chloride 108 H Carbon Dioxide 27.0 Anion Gap 5 BUN 20 H Creatinine 0.93 Estim Creat Clear Calc 58.78 Est GFR (MDRD) Af Amer 102 Est GFR (MDRD) Non-Af 84 BUN/Creatinine Ratio 21.6 H Glucose 90 Hemoglobin A1c Calcium 9.2 Vitamin D 25-Hydroxy Blood Type Antibody Screen 08/20/18 08/20/18 08/20/18 05:45 05:45 05:45 WBC 7.6 RBC 4.32 L Hgb 13.1 Hct 41.3 MCV 95.6 H MCH 30.3 MCHC 31.7 L RDW 16.4 H RDW Differential 58.1 H Plt Count 185 MPV 10.0 Immature Gran % (Auto) 0.100 Neut % (Auto) 67.9 Lymph % (Auto) 25.0 [place] % (Auto) 4.5 Eos % (Auto) 2.4 Baso % (Auto) 0.1 Absolute Neuts (auto) 5.1 Absolute Lymphs (auto) 1.89 Total Counted Not Reportable PT INR Sodium 142 Potassium 4.5 Chloride 107 Carbon Dioxide 29.0 Anion Gap 6 BUN 29 H Creatinine 1.25 Estim Creat Clear Calc 45.37 Est GFR (MDRD) Af Amer 72 Est GFR (MDRD) Non-Af 60 BUN/Creatinine Ratio 23.2 H Glucose 109 H Hemoglobin A1c Calcium 9.0 Vitamin D 25-Hydroxy 18.3 L Blood Type Antibody Screen 08/20/18 08/20/18 05:45 05:45 WBC RBC Hgb Hct MCV MCH MCHC RDW RDW Differential Plt Count MPV Immature Gran % (Auto) Neut % (Auto) Lymph % (Auto) [place] % (Auto) Eos % (Auto) Baso % (Auto) Absolute Neuts (auto) Absolute Lymphs (auto) Total Counted PT INR Sodium Potassium Chloride Carbon Dioxide Anion Gap BUN Creatinine Estim Creat Clear Calc Est GFR (MDRD) Af Amer Est GFR (MDRD) Non-Af BUN/Creatinine Ratio Glucose Hemoglobin A1c 5.9 Calcium Vitamin D 25-Hydroxy Blood Type O POSITIVE Antibody Screen NEGATIVE POC Glucose 08/20/18 08/19/18 08/19/18 06:25 22:35 16:47 POC Glucose 99 113 H 83 Medical Necessity - Tobacco Use Smoking Status: Former smoker Tobacco Use: Cigarettes Assessment/Plan All Active Problems (Last Updated 08/19/18 @ 15:49 by James Griffiths DO) Closed right hip fracture (Acute) Acute kidney injury (Resolved) Ethmoid sinusitis (Resolved) Multilobar Pneumonia (Resolved) Tendonitis (Resolved) 1. Traumatic proximal right femur fracture, nondisplaced, secondary to mechanical fall prior to admission- Dr. Parker, ortho consulted from ER. PT/OT. PRN pain regimen. Plan for surgery this afternoon. 2. Hypertension-mildly elevated on admission, suspect secondary to pain. [place] ent not on regimen although reported history of HTN. Continue to monitor. 3. Hyperlipidemia-continue statin. 4. Type 2 diabetes mellitus-hold metformin regimen. Accu-Cheks before meals at bedtime with sliding scale insulin. Hemoglobin A1c 5.9%. 5. Chronic systolic CHF-patient follows with Dr. Wells, F cardiology. EF reported to be 35% in 2013. Patient states he had routine cardiac workup [address] Shah which included repeat echo and EKG. Request records. 6. BPH-continue doxazosin regimen. 7. Gout-continue allopurinol regimen. 8. 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 Continue outpatient routine follow-up with oncology. Cautious of infection given immunocompromised status, S/P splenectomy. 9. Mild cognitive impairment/depression-continue home Aricept and paroxetine regimen. DVT prophylaxis- Lovenox sc. This patient was seen by TAMMY Jimenez under the supervision of Dr. Waddell. <Sabrina Waddell - Last Filed: 08/20/18 17:21> - Physical Exam Vital Signs Temp Pulse Resp BP Pulse Ox 99.2 F H 78 18 138/82 H 98 08/20/18 15:05 08/20/18 15:05 08/20/18 15:05 08/20/18 15:05 08/20/18 10:45 Oxygen Flow Rate (L/min) 2 Oxygen Delivery Method Nasal Cannula Weight: 73.1 kg Body Mass Index (BMI) 25.9 Intake and Output for Last 24 Hours 08/18/18 08/19/18 08/20/18 23:59 23:59 23:59 Intake Total 300 / 300 240 / 240 Output Total 125 / 125 425 / 425 Balance 175 / 175 -185 / -185 Laboratory Tests Past 24 Hrs 08/20/18 08/20/18 08/20/18 05:45 05:45 05:45 WBC 7.6 RBC 4.32 L Hgb 13.1 Hct 41.3 MCV 95.6 H MCH 30.3 MCHC 31.7 L RDW 16.4 H RDW Differential 58.1 H Plt Count 185 MPV 10.0 Immature Gran % (Auto) 0.100 Neut % (Auto) 67.9 Lymph % (Auto) 25.0 [place] % (Auto) 4.5 Eos % (Auto) 2.4 Baso % (Auto) 0.1 Absolute Neuts (auto) 5.1 Absolute Lymphs (auto) 1.89 Total Counted Not Reportable Sodium 142 Potassium 4.5 Chloride 107 Carbon Dioxide 29.0 Anion Gap 6 BUN 29 H Creatinine 1.25 Estim Creat Clear Calc 45.37 Est GFR (MDRD) Af Amer 72 Est GFR (MDRD) Non-Af 60 BUN/Creatinine Ratio 23.2 H Glucose 109 H Hemoglobin A1c Calcium 9.0 Vitamin D 25-Hydroxy 18.3 L Blood Type Antibody Screen 08/20/18 08/20/18 05:45 05:45 WBC RBC Hgb Hct MCV MCH MCHC RDW RDW Differential Plt Count MPV Immature Gran % (Auto) Neut % (Auto) Lymph % (Auto) [place] % (Auto) Eos % (Auto) Baso % (Auto) Absolute Neuts (auto) Absolute Lymphs (auto) Total Counted Sodium Potassium Chloride Carbon Dioxide Anion Gap BUN Creatinine Estim Creat Clear Calc Est GFR (MDRD) Af Amer Est GFR (MDRD) Non-Af BUN/Creatinine Ratio Glucose Hemoglobin A1c 5.9 Calcium Vitamin D 25-Hydroxy Blood Type O POSITIVE Antibody Screen NEGATIVE POC Glucose 08/20/18 08/20/18 08/19/18 11:50 06:25 22:35 POC Glucose 132 H 99 113 H Assessment/Plan This patient was seen in conjunction with Estrella Rendon NP. I have independently interviewed and examined the patient and reviewed pertinent historical, laboratory, and other data. Please refer to her note for patient's presentation, findings, and recommendations. 78-year-old male with past medical history of chronic systolic CHF, type II DM, history of remote heavy cell leukemia status post splenectomy who comes in after a fall and sustains right hip pain with resultant fracture. Patient was seen and examined. His pain is controlled, rates his at 4/10, will be going for hip placement in the afternoon. No acute events overnight. Records from Dr. Shah's office are pending. Denied any active cardiac symptoms such as chest pain, dizziness, palpitations or leg swelling orthopnea or PND. Vitals were reviewed -stable Reviewed, leukocytosis resolved, slight increase in his creatinine likely secondary to dehydration Physical Exam: Gen: Looks in some discomfort, not pale, not jaundiced, alert oriented x3 CVS:HS I +II, regular, no murmurs RESP: Diminished at lung bases GI: Full, firm, nontender, no ballotable organs EXT:No edema, tenderness over the right hip ASSESSMENT: 1. Acute right hip fracture, traumatic, status post acute mechanical fall 2. CHF with reduced EF, EF of 35%, follows up with Dr. Shah, will get records 3. Type II DM, sugars are controlled 4. Hypertension 5. Hyperlipidemia 6. BPH 7. Gout 8. Remote history of hairy cell leukemia 9. Dementia, mild/depression Meds reviewed Plan: We will follow-up per surgical recommendations, continue all meds Code Visit Inpatient E&M: 39471 Subs Hosp L2
[2018-08-20 11:55] LABS: Bedside Glucose 132 mg/dL (70-110)
[2018-08-20] MEDS: Morphine 2 MG/ML Syringe IV (15:02)
--- NOTE | 2018-08-20 15:31 | CHAPLAIN ---
Type of Pastoral Visit _x__ Initial Visit ___ Follow-up Visit ___ On-call Visit ___ General Patient Visit ___ Spiritual Assessment ___ Family Conference ___ Bereavement ___ Rapid Response ___ Code Blue ___ Other (describe below) Pastoral Care Referral From _x__ Patient _x__ Family ___ Nurse ___ Physician ___ Bread Slicer Machine ___ Head Of Sales Promotion ___ Other (describe below) Sacrament/Intervention _x__ Active listening ___ Anointing ___ Mormonism ___ Bereavement ___ Communion ___ Alannah exploration ___ ___ Life review _x__ Prayer ___ Reconciliation ___ Sacrament of Sick ___ Supportive presence ___ Wedding ___ Other (describe below) Pastoral Comments patient and spouse welcome spiritual support and request that transportation broker will call [place] [place] to notify of patient surgery and hospitalization; transportation broker completed request
--- NOTE | 2018-08-20 16:01 | RAD_ITS ---
STUDY: X-RAY - PELVIS AND RIGHT HIP REASON FOR EXAM: Male, 78 years old. Fracture TECHNIQUE: Radiological exam, hip, unilateral, with pelvis when performed; 2 or 3 views. COMPARISON: August 19, 2018 FINDINGS: Status post hip replacement of the right hip. The hardware components are well aligned. Postsurgical changes in the adjacent soft tissues with skin gilda laterally.. RAD/Hip Min 2 Views (Portable) IMPRESSION: Status post total replacement of the right hip. Electronically Signed: George Boston DO at 18:43 EDT Tel [phone], Service support ,
[2018-08-20] MEDS: Cefazolin 2 GM in 0.9% Normal Saline 100 ML IV (16:14)
--- NOTE | 2018-08-20 17:04 | PCM.IMDPSTOP ---
Immediate Post-Op Note Date of Procedure: 08/20/18 Primary Surgeon/Physician: Kolby Parker crate repairer: Sonny Peacock Pre-Operative Diagnosis: Garden classification IV fracture right hip Post-Operative Diagnosis: same Surgery/Procedure Performed:: Cemented Hemiarthroplasty right hip Description of Surgical Findings:: see op note Estimated Blood Loss: 125 cc Specimen's removed: femoral head Type of Anesthesia:: General ASA Class: ASA3 Severe Disease - Admit VTE Documentation VTE Present on Admission: No VTE Mechan Device Prophylaxis: SCD's, Thigh High ALIZA Hose VTE Pharm Prophylaxis ordered?: Yes
--- NOTE | 2018-08-20 17:07 | OP.PN_ITS ---
Immediate Post-Op Note Date of Procedure: 08/20/18 Primary Surgeon/Physician: Kolby Parker slat pickler: Sonny Peacock Pre-Operative Diagnosis: Garden classification IV fracture right hip Post-Operative Diagnosis: same Surgery/Procedure Performed:: Cemented Hemiarthroplasty right hip Description of Surgical Findings:: see op note Estimated Blood Loss: 125 cc Specimen's removed: femoral head Type of Anesthesia:: General ASA Class: ASA3 Severe Disease - Admit VTE Documentation VTE Present on Admission: No VTE Mechan Device Prophylaxis: SCD's, Thigh High ALIZA Hose VTE Pharm Prophylaxis ordered?: Yes
--- NOTE | 2018-08-20 17:08 | PCM.OP.BLANK ---
Operative Report Date of Procedure: 08/20/18 Primary Surgeon/Physician: Kolby Parker center line cutter operator: Allen Peacock PA-C center line cutter operator: Pre-Operative Diagnosis: Garden IV fracture right hip Post-Operative Diagnosis: same Surgery/Procedure Performed: Cemented Hemiarthroplasty right hip Estimated Blood Loss: 125 cc Specimen's Removed: femoral head Type of Anesthesia: general ASA Class: 3 Implants: [Chloe Accolade C size 6 stem 127 degrees, 52 mm +4 bipolar head ] Surgical Indications: Patient has fracture of the [right ] hip. Patient was cleared from a medical standpoint. The risks of the surgery was discussed with the patient and family at length. Procedure Description: The patient was greeted in the preoperative area. The [right ] hip was marked with surgical marker and preoperative antibiotics administered. The patient was then taken to OR suite in stable condition. Once the patient was placed in the supine position on the operating room table and once adequate anesthesia was obtained the patient was then placed in the lateral decubitus position with the surgical hip facing the field. All bony prominences were well-padded. A commercial hip position was utilized. The appropriate extremity was then prepped and draped in usual sterile fashion. Ioban was placed on the skin. Surgical timeout was performed and surgery was commenced. Standard posterior approach to the hip was then performed incision was planned and carried out with a #10 blade. Dissection was then carried length of the incision to the tensor fascia which was split proximally and distally. A Charnley retractor was then placed for soft tissue retraction exposing the gluteus medius. The hip was then approached through a posterior approach and dislocated through a posterior capsulectomy. The incarcerated femoral head was removed and measured on the back table. Findings are consistent with a femoral neck fracture. A femoral osteotomy was then created approximately 1 fingerbreadth above the lesser trochanter. No significant abnormality of the acetabulum is identified. Any remaining tissue or bone was removed from the acetabulum Attention was then turned to the femoral preparation. The hip was placed in the 90/90 position and a lateralizing box osteotome was utilized. Femoral starting awl was used followed by sequential broaching to the appropriate size. Excellent purchase was obtained with the stem no stem subsidence and excellent rotational stability was confirmed. A calcar reamer was then used in the trial head neck was placed on the broach. The hip was then located and taken through full range of motion flexion internal and external rotation as well as extension. Excellent stability was noted no impingement was identified of the components and leg lengths appear to be appropriate. The hip was at this point dislocated and the trial femoral components were removed. Cement was mixed under third generation technique and the canal was prepared with pulsatile lavage. The cement was then placed in the femoral canal in an antegrade fashion and pressurized. The final femoral stem was then implanted and impacted to the appropriate depth. Again excellent purchase was obtained no stem subsidence or rotational instability was noted. The hip was once again trialed and confirmation of leg length and stability was performed. Soft tissue tension also appeared to be appropriate. At this point the hip was redislocated and the trunnion was cleaned and dried meticulously in the appropriate size femoral head was placed on the clean dry trunnion using a 12/14 Francisco taper. The hip was once again relocated and again taken through full range of motion. Copious irrigation was performed. Anatomic closure of the gluteus medius and minimus was performed with #1 Vicryl [id number] type fashion followed by closure of the IT band with #1 Vicryl 0 Vicryl was utilized in subcutaneous tissue and surgical gilda were placed in the skin. A well-padded nonadherent dressing was applied. Patient was taken to PACU in stable condition. No complications were identified. Will follow standard postop protocol for hemiarthroplasty. My paralegal assistant, Mr. Peacock, was vital to the completion of this procedure. He assisted in positioning and provided visualization during preparation of the bone and placement of the prosthesis. Subsequently, under my direct supervision, he closed the wound and applied the sterile post-op dressing.
--- NOTE | 2018-08-20 17:17 | OP.PCM_ITS ---
Operative Report Date of Procedure: 08/20/18 Primary Surgeon/Physician: Kolby Parker venetian blind installer: Allen Peacock PA-C venetian blind installer: Pre-Operative Diagnosis: Garden IV fracture right hip Post-Operative Diagnosis: same Surgery/Procedure Performed: Cemented Hemiarthroplasty right hip Estimated Blood Loss: 125 cc Specimen's Removed: femoral head Type of Anesthesia: general ASA Class: 3 Implants: [Chloe Accolade C size 6 stem 127 degrees, 52 mm +4 bipolar head ] Surgical Indications: Patient has fracture of the [right ] hip. Patient was cleared from a medical standpoint. The risks of the surgery was discussed with the patient and family at length. Procedure Description: The patient was greeted in the preoperative area. The [right ] hip was marked with surgical marker and preoperative antibiotics adm inistered. The patient was then taken to OR suite in stable condition. Once the patient was placed in the supine position on the operating room table and once adequate anesthesia was obtained the patient was then placed in the lateral decubitus position with the surgical hip facing the field. All bony prominences were well-padded. A commercial hip position was utilized. The appropriate extremity was then prepped and draped in usual sterile fashion. Ioban was placed on the skin. Surgical timeout was performed and surgery was commenced. Standard posterior approach to the hip was then performed incision was planned and carried out with a #10 blade. Dissection was then carried length of the incision to the tensor fascia which was split proximally and distally. A Charnley retractor was then placed for soft tissue retraction exposing the gluteus medius. The hip was then approached through a posterior approach and dislocated through a posterior capsulectomy. The incarcerated femoral head was removed and measured on the back table. Findings are consistent with a femoral neck fracture. A femoral osteotomy was then created approximately 1 fingerbreadth above the lesser trochanter. No significant abnormality of the acetabulum is identified. Any remaining tissue or bone was removed from the acetabulum Attention was then turned to the femoral preparation. The hip was placed in the 90/90 position and a lateralizing box osteotome was utilized. Femoral starting awl was used followed by sequential broaching to the appropriate size. Excellent purchase was obtained with the stem no stem subsidence and excellent rotational stability was confirmed. A calcar reamer was then used in the trial head neck was placed on the broach. The hip was then located and taken through full range of motion flexion internal and external rotation as well as extension. Excellent stability was noted no impingement was identified of the components and leg lengths appear to be appropriate. The hip was at this point dislocated and the trial femoral components were removed. Cement was mixed under third generation technique and the canal was prepared with pulsatile lavage. The cement was then placed in the femoral canal in an antegrade fashion and pressurized. The final femoral stem was then implanted and impacted to the appropriate depth. Again excellent purchase was obtained no stem subsidence or rotational instability was noted. The hip was once again trialed and confirmation of leg length and stability was performed. Soft tissue tension also appeared to be appropriate. At this point the hip was redislocated and the trunnion was cleaned and dried meticulously in the appropriate size femoral head was placed on the clean dry trunnion using a 12/14 Francisco taper. The hip was once again relocated and again taken through full range of motion. Copious irrigation was performed. Anatomic closure of the gluteus medius and minimus was performed with #1 Vicryl [id number]-jy-dmdka type fashion followed by closure of the IT band with #1 Vicryl 0 Vicryl was utilized in subcutaneous tissue and surgical gilda were placed in the skin. A well-padded nonadherent dressing was applied. Patient was taken to PACU in stable condition. No complications were identified. Will follow standard postop protocol for hemiarthroplasty. My costumer assistant, Mr. Peacock, was vital to the completion of this procedure. He assisted in positioning and provided visualization during preparation of the bone and placement of the prosthesis. Subsequently, under my direct supervision, he closed the wound and applied the sterile post-op dressing.
[2018-08-20 17:50] LABS: Bedside Glucose 99 mg/dL (70-110)
--- NOTE | 2018-08-20 18:00 | EKG12_ITS ---
Test Reason : POSTOP Blood Pressure : / mmHG Vent. Rate : 109 BPM Atrial Rate : 109 BPM P-R Int : 166 ms QRS Dur : 132 ms QT Int : 384 ms P-R-T Axes : 053 -07 148 degrees QTc Int : 517 ms Sinus tachycardia Left bundle branch block Abnormal ECG When compared with ECG of 19-AUG-2018 13:30, MANUAL COMPARISON REQUIRED, DATA IS UNCONFIRMED Confirmed by NATALIO MALCOLM, CHERRY ([id number]), material expeditor DINA KURTZ ([id number]) on 08/25/2018 4:00:17 PM Referred By: James Griffiths Confirmed By:CHERRY LANCE MD
[2018-08-20 18:15] LABS: Hematocrit 40.2 % (40-54); Hemoglobin 12.8 g/dl (13.0-16.5); Mean Corp Hgb Conc 31.8 g/gl (32-36); Mean Corpuscular Hgb 30.6 pg (27.0-32.0); Mean Corpuscular Volume 96.2 fL (80-94); Mean Platelet Vol. 10.2 fl (6.2-12.0); Platelet Count 171 K/mm3 (150-450); RBC Distribution Width CV 16.5 % (11.6-14.6); RBC Distribution Width SD 58.2 fl (35.1-43.9); Red Blood Count 4.18 M/mm3 (4.6-6.2); White Blood Count 15.2 K/mm3 (4.4-11.0)
[2018-08-20 18:23] LABS: Scan Indicated on CBC? Y/N NO
[2018-08-20] MEDS: Atorvastatin Calcium 10 MG Tablet PO (21:19)
[2018-08-20] MEDS: Donepezil HCl 5 MG Tablet PO (21:19)
[2018-08-20] MEDS: Doxazosin 1 MG Tablet PO (21:19)
[2018-08-20] MEDS: Senna/Docusate Sodium 1 Tablet 2 TABLET PO (21:20)
[2018-08-20] MEDS: Acetaminophen 500 MG Tablet 1000 MG PO (21:20)
--- NOTE | 2018-08-20 22:19 | NURSING ---
PATIENT AGITATED, UNABLE TO URINATE, STOOD AT BEDSIDE X2 WITH 2 ASSIST, PATIENT WOBBLY AND UNSTEADY ON FEET. PATIENT STRAIGHT CATHED FOR 375ML
[2018-08-20] MEDS: Cefazolin 1 GM/50 ML BAG IV (23:35)
[2018-08-21] VITALS (8 sets, daily range): BP systolic 98–131; BP diastolic 46–74; PULSE 59–87; RESP 16–18; TEMP 36.6–36.9; O2SAT 94–98; BMI 26.0
--- NOTE | 2018-08-21 | HIP_PTH ---
PATIENT: JEN MULLINS LOC: [id number] U#:[id number] AGE/SX: 78/M ROOM: [facility] RE08/19/[address]: Dr. Paty Morgan MD : [id number] BED: 1 DIS: 08/22/2018 SPEC #: [id number] RECD: 08/21/18 13:29 STATUS: DONAVAN REQ #: [id number] ANDERSON: 08/21/18 00:[address]: Kolby Parker DEPT: SURGICAL PATHOLOGY RECD BY: Rafael Akers ENTERED: 08/21/18 13:29 SP TYPE: TOTAL HIP OTHR DR: MD Dr. James Fontenot DO Dr. Frank A Cebul III, MD Dr. Michael Knapic, Tissues: Hip, NOS Procedures: Decalcification bone/plaque Surgery Specimen Level IV Comments: @ Ordering doctor for DEC edited from to DR.MKNAPI Law TAO at 08/21/18 141 @ Ordering doctor for SUIV edited from to @ by DINH at 08/21/18 141 @ Submitting doctor edited from to @ by DINH at 08/21/18 1416 HEADER OPERATION: Hemiarthroplasty, hip PRE-OP DIAGNOSIS: Right hip fracture/proximal right femur fracture TISSUE SUBMITTED: Femoral head - right MICROSCOPIC DIAGNOSIS Femoral head, hemiarthroplasty: Femoral head and detached pieces of bone with focal area of hemorrhage, clinically right hip fracture/proximal right femur fracture. Fragments of fibroadipose tissue, fibroconnective tissue and synovial tissue. ANNELISE:irineo 08/27/18 MICROSCOPIC DESCRIPTION Slides are reviewed. GROSS DESCRIPTION Received is one container designated right femoral head. The specimen consists of a femoral head measuring 6 x 5 x 5 cm. The articular surface is smooth. The resection margins are irregular and hemorrhagic. Also present in the container are multiple pieces of bone measuring in aggregate 5 x 4 x 2 cm. Also present in the container are two pieces of soft tissue measuring in aggregate 1.5 x 1 x 0.3 cm. Printer Maintainer sections are submitted in two cassettes as follows: 1 - soft tissue, 2 - detached pieces of bone, 3 - femoral head. Cassettes 2 & 3 are submitted after decalcification. / Neo 08/21/18 TC:5 [facility]: [id number], [id number]
[2018-08-21] MEDS: Morphine 4 MG/ML Syringe IV (02:54)
--- NOTE | 2018-08-21 03:26 | NURSING ---
PATIENT WOKE DISORIENTED, CONFUSED AND AGITATED. UNABLE TO URINATE; BLADDER SCANNED FOR 105ML. STATED THIS SAME THING HAPPENED WITH HIS PREVIOUS SURGERY AT THE [facility]. HE WAS VERY ANXIOUS, COMBATIVE AND SHAKING. HE HAD BEEN ON ATIVAN AT THAT TIME, SO THEY WERE UNSURE IF IT WAS THE ATIVAN OR THE ANESTHESIA. PATIENT C/O PAIN, MORPHINE GIVEN.
[2018-08-21 05:18] LABS: Hematocrit 34.5 % (40-54); Hemoglobin 11.4 g/dl (13.0-16.5); Mean Corpuscular Hgb 31.6 pg (27.0-32.0); Mean Corpuscular Volume 95.6 fL (80-94); Mean Platelet Vol. 9.9 fl (6.2-12.0); Platelet Count 148 K/mm3 (150-450); RBC Distribution Width CV 16.7 % (11.6-14.6); Red Blood Count 3.61 M/mm3 (4.6-6.2); White Blood Count 8.7 K/mm3 (4.4-11.0)
[2018-08-21 05:32] LABS: Anion Gap 6 (5-15); BUN 29 mg/dL (7-18); BUN/Creat Ratio 24.6 RATIO (10-20); Calcium,Total 8.5 mg/dL (8.5-10.1); Chloride 107 mmol/L (98-107); Creatinine, Serum 1.18 mg/dL (0.70-1.30); EST Glomerular Filtration Rate 64 mL/min (>60); Est Glom Filt Rate - Afr Amer 77 mL/min (>60); Estimated Creatinine Clearance 48.06 ml/min; Glucose 103 mg/dL (74-106); Potassium 4.6 mmol/L (3.5-5.1); Sodium Level 141 mmol/L (136-145)
[2018-08-21 05:36] LABS: Scan Indicated on CBC? Y/N NO
[2018-08-21] MEDS: Rivaroxaban 10 MG Tablet PO (06:53)
[2018-08-21] MEDS: Acetaminophen 500 MG Tablet 1000 MG PO ×3 (06:53→22:05)
[2018-08-21 07:01] LABS: Bedside Glucose 82 mg/dL (70-110)
--- NOTE | 2018-08-21 07:42 | PCM.PN.ORT ---
Patient Problems: Active and Suspected Problems (Last Updated 08/19/18 @ 15:49 by James Griffiths DO) Closed right hip fracture (Acute) Subjective: Patient lying in bed sleeping, easy to awake. Patient was slightly confused place and time. Alert to person date. Patient denies chest pain, shortness breath, calf pain, nausea vomiting. No other complaints at this time Objective: Dressing is clean dry intact. Negative signs and symptoms of DVT. Vital signs labs within normal limits. Patient is afebrile neurovascular is intact. - Physical Exam General: Alert HEENT: PERRLA Oral: Moist Mucosa Neurological: Cranial nerves II-XII grossly intact Psych/Mental Status: Normal Affect Vital Signs Temp Pulse Resp BP Pulse Ox 97.9 F 87 16 131/74 H 95 08/21/18 05:00 08/21/18 05:00 08/21/18 05:00 08/21/18 05:00 08/21/18 07:21 Oxygen Flow Rate (L/min) 4 Oxygen Delivery Method Nasal Cannula Weight: 73.1 kg Body Mass Index (BMI) 25.9 Intake and Output for Last 24 Hours 08/19/18 08/20/18 08/21/18 23:59 23:59 23:59 Intake Total 300 / 300 1340 / 1340 1074 / 1074 Output Total 125 / 125 800 / 800 Balance 175 / 175 540 / 540 1074 / 1074 Laboratory Tests Past 24 Hrs 08/20/18 08/20/18 08/20/18 05:45 05:45 18:06 WBC 15.2 H RBC 4.18 L Hgb 12.8 L Hct 40.2 MCV 96.2 H MCH 30.6 MCHC 31.8 L RDW 16.5 H RDW Differential 58.2 H Plt Count 171 MPV 10.2 Sodium Potassium Chloride Carbon Dioxide Anion Gap BUN Creatinine Estim Creat Clear Calc Est GFR (MDRD) Af Amer Est GFR (MDRD) Non-Af BUN/Creatinine Ratio Glucose Hemoglobin A1c 5.9 Calcium Troponin I Vitamin D 25-Hydroxy 18.3 L 08/20/18 08/21/18 08/21/18 18:06 05:00 05:00 WBC 8.7 RBC 3.61 L Hgb 11.4 L Hct 34.5 L MCV 95.6 H MCH 31.6 MCHC 33.0 RDW 16.7 H RDW Differential 56.0 H Plt Count 148 L MPV 9.9 Sodium 141 Potassium 4.6 Chloride 107 Carbon Dioxide 28.0 Anion Gap 6 BUN 29 H Creatinine 1.18 Estim Creat Clear Calc 48.06 Est GFR (MDRD) Af Amer 77 Est GFR (MDRD) Non-Af 64 BUN/Creatinine Ratio 24.6 H Glucose 103 Hemoglobin A1c Calcium 8.5 Troponin I < 0.015 Vitamin D 25-Hydroxy POC Glucose 08/21/18 08/20/18 08/20/18 06:48 17:45 11:50 POC Glucose 82 99 132 H Medical Necessity - Tobacco Use Smoking Status: Former smoker Tobacco Use: Cigarettes Assessment/Plan All Active Problems (Last Updated 08/19/18 @ 15:49 by James Griffiths DO) Closed right hip fracture (Acute) Acute kidney injury (Resolved) Ethmoid sinusitis (Resolved) Multilobar Pneumonia (Resolved) Tendonitis (Resolved) Status post right hip hemiarthroplasty status post fracture Plan 1. Continue all pain medications as prescribed 2. Begin physical therapy today weight-bear as tolerated with walker 3. Xarelto as prescribed and directed by medicine for postop DVT prophylaxis 4. Encourage incentive spirometry 5. Possible discharge home tomorrow when cleared by medicine.
[2018-08-21] MEDS: Cefazolin 1 GM/50 ML BAG IV (08:23)
[2018-08-21] MEDS: 0.9% NaCl Peripheral Flush Adult/Peds IV (08:23)
[2018-08-21] MEDS: Ketorolac 15 MG/ML Vial IV (08:23)
[2018-08-21] MEDS: Allopurinol 300 MG Tablet PO (08:24)
[2018-08-21] MEDS: PARoxetine 10 MG Tablet PO (08:24)
[2018-08-21] MEDS: Senna/Docusate Sodium 1 Tablet 2 TABLET PO ×2 (08:24→22:05)
--- NOTE | 2018-08-21 10:00 | PCM.PN.HOSP ---
Patient Problems: Active and Suspected Problems (Last Updated 08/19/18 @ 15:49 by James Griffiths DO) Closed right hip fracture (Acute) Subjective: Patient with no acute events overnight per self and per nursing report. Patient and son do note that patient has had past poor reactions following anesthetic usage similar to current presentation with agitation and anxiety but this has since improved. He additionally had urinary retention and did require catheter which is similar to his prior presentations with anesthetics as well. Patient notes therapies are being well tolerated and he is progressing well postoperative day #1 now. Patient notes intention for transition to [facility] facility for ongoing therapies. Patient denies fevers, chills, nausea, emesis, abdominal pain, chest pain or dyspnea. Objective: Physical Examination: General: awake, alert, oriented x 3 and cooperative, seated upright in bedside chair, in no apparent distress. Skin: normal color, turgor, no icterus, cyanosis, s/p R hip fx repair w/ dressing in place. HEENT: AT/NC, EOMI, PERRLA, MMM. Lungs: CTA bilaterally, moderate effort, mild decrease BL bases, no rales, ronchi or wheezing. Heart: Regular rate and rhythm; no gallop, rub audible. Abdomen: soft, NTTP, ND, normal BS. Extremities: no cyanosis, clubbing, s/p R hip fx repair, dressing in place. Neurological: patient awake, alert, oriented x 3; cognitive function intact; pupils equally reactive to light and accomodation; cranial nerves II-XII grossly normal, moving all 4 extremities although limited RLE given recent R hip fx s/p repair, strength accordingly moderately to severely globally decreased. Psychiatric: affect appears normal, no acute evidence of depressive or anxiety feelings. Vitals/I&O's: Vital Signs Temp Pulse Resp BP Pulse Ox 97.9 F 87 16 131/74 H 95 08/21/18 05:00 08/21/18 05:00 08/21/18 05:00 08/21/18 05:00 08/21/18 07:21 Oxygen Flow Rate (L/min) 4 Oxygen Delivery Method Nasal Cannula Weight: 161 lb 2.526 oz Body Mass Index (BMI) 25.9 Intake and Output for Last 24 Hours 08/19/18 08/20/18 08/21/18 23:59 23:59 23:59 Intake Total 300 / 300 1340 / 1340 1074 / 1074 Output Total 125 / 125 800 / 800 Balance 175 / 175 540 / 540 1074 / 1074 Laboratory Results 08/20/18 11:50: POC Glucose 132 H 08/20/18 17:45: POC Glucose 99 08/20/18 18:06: WBC 15.2 H, RBC 4.18 L, Hgb 12.8 L, Hct 40.2, MCV 96.2 H, MCH 30.6, MCHC 31.8 L, RDW 16.5 H, RDW Differential 58.2 H, Plt Count 171, MPV 10.2 08/20/18 18:06: Troponin I < 0.015 08/21/18 05:00: WBC 8.7, RBC 3.61 L, Hgb 11.4 L, Hct 34.5 L, MCV 95.6 H, MCH 31.6, MCHC 33.0, RDW 16.7 H, RDW Differential 56.0 H, Plt Count 148 L, MPV 9.9 08/21/18 05:00: Sodium 141, Potassium 4.6, Chloride 107, Carbon Dioxide 28.0, Anion Gap 6, BUN 29 H, Creatinine 1.18, Estim Creat Clear Calc 48.06, Est GFR (MDRD) Af Amer 77, Est GFR (MDRD) Non-Af 64, BUN/Creatinine Ratio 24.6 H, Glucose 103, Calcium 8.5 08/21/18 06:48: POC Glucose 82 Current Medications Acetaminophen (Tylenol) 1,000 mg PO Q8 [facility] Last Admin: 08/21/18 06:53 Dose: 1,000 mg Allopurinol (Zyloprim) 300 mg PO DAILY@0800 [facility] Last Admin: 08/21/18 08:24 Dose: 300 mg Atorvastatin Calcium (Lipitor) 10 mg PO QHS [facility] Last Admin: 08/20/18 21:19 Dose: 10 mg Dextrose (D50w Syringe) 0 gm IV X1 PRN; Protocol PRN Reason: Hypoglycemia Donepezil HCl (Aricept) 5 mg PO DAILY@2200 [facility] Last Admin: 08/20/18 21:19 Dose: 5 mg Doxazosin Mesylate (Cardura) 1 mg PO QHS [facility] Last Admin: 08/20/18 21:19 Dose: 1 mg Glucagon () 1 mg IM .X1 PRN PRN Reason: Hypoglycemia Insulin Human Lispro (Humalog Kwikpen (Bkc)) 0 unit SQ TIDAC [facility]; Protocol Last Admin: 08/21/18 06:51 Dose: Not Given Ketorolac Tromethamine (Toradol) 15 mg IV Q6H PRN PRN PRN Reason: MILD-MOD PAIN (1-5/10) Last Admin: 08/21/18 08:23 Dose: 15 mg Magnesium Hydroxide (Milk Of Magnesia) 30 ml PO DAILY PRN PRN PRN Reason: Constipation Morphine Sulfate () 2 - 4 mg IV Q3H PRN PRN PRN Reason: Severe Pain (pain scale 6-10) Last Admin: 08/20/18 15:02 Dose: 2 mg Morphine Sulfate () 2 - 4 mg IV Q3H PRN PRN PRN Reason: Severe Pain (pain scale 6-10) Last Admin: 08/21/18 02:54 Dose: 4 mg Ondansetron HCl (Zofran) 4 mg IV Q8H PRN PRN PRN Reason: NAUSEA Oxycodone HCl (Oxyir) 5 mg PO Q4H PRN PRN PRN Reason: Moderate Pain (pain scale 4-5) Last Admin: 08/20/18 05:29 Dose: 5 mg Paroxetine HCl (Paxil) 10 mg PO DAILY [facility] Last Admin: 08/21/18 08:24 Dose: 10 mg Promethazine HCl (Phenergan) 12.5 mg IM Q6H PRN PRN; Protocol PRN Reason: NAUSEA/VOMITING Rivaroxaban (Xarelto) 10 mg PO DAILY@0600 [facility] Last Admin: 08/21/18 06:53 Dose: 10 mg Senna/Docusate Sodium (Senokot-S, Bertha-Colace) 2 tablet PO BID [facility] Last Admin: 08/21/18 08:24 Dose: 2 tablet Sodium Chloride () 5 - 30 ml IV UD PRN PRN Reason: SALINE FLUSH Last Admin: 08/21/18 08:23 Dose: 10 ml Medical Necessity - Tobacco Use Smoking Status: Former smoker Tobacco Use: Cigarettes Assessment/Plan All Active Problems (Last Updated 08/19/18 @ 15:49 by James Griffiths DO) Closed right hip fracture (Acute) Acute kidney injury (Resolved) Ethmoid sinusitis (Resolved) Multilobar Pneumonia (Resolved) Tendonitis (Resolved) The patient is a 75 y/o M w/ PMHx: Hairy Cell Leukemia following w/ Dr. Mercado, Chronic Systolic CHF (EF 35%, following w/ Dr. Wells, s/p cath 2004), Hypertension, Gout, Diabetes mellitus type II, BPH who presents to the [facility] ED on 08/19/18 with history of mechanical fall w/ resulting R hip pain, debility. (1) General debility, R hip pain s/p mechanical fall w/ Nondisplaced transcervical fracture of the proximal right femur: Plain film noting Nondisplaced transcervical fracture of the proximal right femur. Orthopedic surgery consulted from ED. Admitted to [place], [place] 08/20/18 w/ Dr. Parker, s/p cemented hemiarthroplasty right hip, PRN pain regimen, PRN antiemetics. PT/OT following operative intervention. CM consulted for discharge planning. Vitamin D 18.3 c/w vitamin D Deficiency, will start on vitamin D weekly 50,000 supplementation x 8 weeks with then oral transition. Plan SNF discharge tomorrow if felt appropriate per Surgery. (2) Chronic systolic congestive heart failure, nonischemic: Noted last ECHO 2013 w/ EF 35%, following w/ Dr. Shah, intolerance to beta blockers, maintain on statin. Prior was on on ARB and HCTZ, not on currently. (3) Hypertension: Not on regimen, previously had been on ARB, HCTZ, unclear why discontinued, monitor BP and if needed add regimen, following w/ [employer] thus would defer to their discretion. (4) Hyperlipidemia: Continue home statin regimen. (5) Diabetes mellitus type II: HgbA1c 5.9%. Hold oral home regimen, ADA diet, accu checks w/ ISS. (6) Depression: Continue home paxil regimen. (7) Dementia, Unclear type: Unclear behavioral disturbance history, maintain on home aricept regimen. (8) DVT prophylaxis: SCDs, xarelto. (9) CODE status: Discussed CODE status at length including difference between FULL code, DNR-CCA and DNR-CC status w/ patient and family given planned SNF transition and need for status for transition. Following discussions about the differences in these status, requested Full Code status. Patient and son present note his is his HCPOA. Advanced Care Planning Face to Face Time: 16 minutes. Code Visit Inpatient E&M: 93112 Subs Hosp L2 Procedures: 50960 Advncd Care Plan 30 Min
--- NOTE | 2018-08-21 10:08 | PN_ITS ---
Patient Problems: Active and Suspected Problems (Last Updated 08/19/18 @ 15:49 by James Griffiths DO) Closed right hip fracture (Acute) Subjective: Patient with no acute events overnight per self and per nursing report. Patient and son do note that patient has had past poor reactions following anesthetic usage similar to current presentation with agitation and anxiety but this has since improved. He additionally had urinary retention and did require catheter which is similar to his prior presentations with anesthetics as well. Patient notes therapies are being well tolerated and he is progressing well postoperative day #1 now. Patient notes intention for transition to [facility] facility for ongoing therapies. Patient denies fevers, chills, nausea, emesis, abdominal pain, chest pain or dyspnea. Objective: Physical Examination: General: awake, alert, oriented x 3 and cooperative, seated upright in bedside chair, in no apparent distress. Skin: normal color, turgor, no icterus, cyanosis, s/p R hip fx repair w/ dressing in place. HEENT: AT/NC, EOMI, PERRLA, MMM. Lungs: CTA bilaterally, moderate effort, mild decrease BL bases, no rales, ronchi or wheezing. Heart: Regular rate and rhythm; no gallop, rub audible. Abdomen: soft, NTTP, ND, normal BS. Extremities: no cyanosis, clubbing, s/p R hip fx repair, dressing in place. Neurological: patient awake, alert, oriented x 3; cognitive function intact; pupils equally reactive to light and accomodation; cranial nerves II-XII grossly normal, moving all 4 extremities although limited RLE given recent R hip fx s/p repair, strength accordingly moderately to severely globally decreased. Psychiatric: affect appears normal, no acute evidence of depressive or anxiety feelings. Vitals/I&O's: Vital Signs Temp Pulse Resp BP Pulse Ox 97.9 F 87 16 131/74 H 95 08/21/18 05:00 08/21/18 05:00 08/21/18 05:00 08/21/18 05:00 08/21/18 07:21 Oxygen Flow Rate (L/min) 4 Oxygen Delivery Method Nasal Cannula Weight: 161 lb 2.526 oz Body Mass Index (BMI) 25.9 Intake and Output for Last 24 Hours 08/19/18 08/20/18 08/21/18 23:59 23:59 23:59 Intake Total 300 / 300 1340 / 1340 1074 / 1074 Output Total 125 / 125 800 / 800 Balance 175 / 175 540 / 540 1074 / 1074 Laboratory Results 08/20/18 11:50: POC Glucose 132 H 08/20/18 17:45: POC Glucose 99 08/20/18 18:06: WBC 15.2 H, RBC 4.18 L, Hgb 12.8 L, Hct 40.2, MCV 96.2 H, MCH 30.6, MCHC 31.8 L, RDW 16.5 H, RDW Differential 58.2 H, Plt Count 171, MPV 10.2 08/20/18 18:06: Troponin I < 0.015 08/21/18 05:00: WBC 8.7, RBC 3.61 L, Hgb 11.4 L, Hct 34.5 L, MCV 95.6 H, MCH 31.6, MCHC 33.0, RDW 16.7 H, RDW Differential 56.0 H, Plt Count 148 L, MPV 9.9 08/21/18 05:00: Sodium 141, Potassium 4.6, Chloride 107, Carbon Dioxide 28.0, Anion Gap 6, BUN 29 H, Creatinine 1.18, Estim Creat Clear Calc 48.06, Est GFR (MDRD) Af Amer 77, Est GFR (MDRD) Non-Af 64, BUN/Creatinine Ratio 24.6 H, Glucose 103, Calcium 8.5 08/21/18 06:48: POC Glucose 82 Current Medications Acetaminophen (Tylenol) 1,000 mg PO Q8 [facility] Last Admin: 08/21/18 06:53 Dose: 1,000 mg Allopurinol (Zyloprim) 300 mg PO DAILY@0800 [facility] Last Admin: 08/21/18 08:24 Dose: 300 mg Atorvastatin Calcium (Lipitor) 10 mg PO QHS [facility] Last Admin: 08/20/18 21:19 Dose: 10 mg Dextrose (D50w Syringe) 0 gm IV X1 PRN; Protocol PRN Reason: Hypoglycemia Donepezil HCl (Aricept) 5 mg PO DAILY@2200 [facility] Last Admin: 08/20/18 21:19 Dose: 5 mg Doxazosin Mesylate (Cardura) 1 mg PO QHS [facility] Last Admin: 08/20/18 21:19 Dose: 1 mg Glucagon () 1 mg IM .X1 PRN PRN Reason: Hypoglycemia Insulin Human Lispro (Humalog Kwikpen (Bkc)) 0 unit SQ TIDAC [facility]; Protocol Last Admin: 08/21/18 06:51 Dose: Not Given Ketorolac Tromethamine (Toradol) 15 mg IV Q6H PRN PRN PRN Reason: MILD-MOD PAIN (1-5/10) Last Admin: 08/21/18 08:23 Dose: 15 mg Magnesium Hydroxide (Milk Of Magnesia) 30 ml PO DAILY PRN PRN PRN Reason: Constipation Morphine Sulfate () 2 - 4 mg IV Q3H PRN PRN PRN Reason: Severe Pain (pain scale 6-10) Last Admin: 08/20/18 15:02 Dose: 2 mg Morphine Sulfate () 2 - 4 mg IV Q3H PRN PRN PRN Reason: Severe Pain (pain scale 6-10) Last Admin: 08/21/18 02:54 Dose: 4 mg Ondansetron HCl (Zofran) 4 mg IV Q8H PRN PRN PRN Reason: NAUSEA Oxycodone HCl (Oxyir) 5 mg PO Q4H PRN PRN PRN Reason: Moderate Pain (pain scale 4-5) Last Admin: 08/20/18 05:29 Dose: 5 mg Paroxetine HCl (Paxil) 10 mg PO DAILY [facility] Last Admin: 08/21/18 08:24 Dose: 10 mg Promethazine HCl (Phenergan) 12.5 mg IM Q6H PRN PRN; Protocol PRN Reason: NAUSEA/VOMITING Rivaroxaban (Xarelto) 10 mg PO DAILY@0600 [facility] Last Admin: 08/21/18 06:53 Dose: 10 mg Senna/Docusate Sodium (Senokot-S, Bertha-Colace) 2 tablet PO BID [facility] Last Admin: 08/21/18 08:24 Dose: 2 tablet Sodium Chloride () 5 - 30 ml IV UD PRN PRN Reason: SALINE FLUSH Last Admin: 08/21/18 08:23 Dose: 10 ml Medical Necessity - Tobacco Use Smoking Status: Former smoker Tobacco Use: Cigarettes Assessment/Plan All Active Problems (Last Updated 08/19/18 @ 15:49 by James Griffiths DO) Closed right hip fracture (Acute) Acute kidney injury (Resolved) Ethmoid sinusitis (Resolved) Multilobar Pneumonia (Resolved) Tendonitis (Resolved) The patient is a 75 y/o M w/ PMHx: Hairy Cell Leukemia following w/ Dr. Mercado, Chronic Systolic CHF (EF 35%, following w/ Dr. Wells, s/p cath 2004), Hypertension, Gout, Diabetes mellitus type II, BPH who presents to the [facility] ED on 08/19/18 with history of mechanical fall w/ resulting R hip pain, debility. (1) General debility, R hip pain s/p mechanical fall w/ Nondisplaced transcervical fracture of the proximal right femur: Plain film noting Nondisplaced transcervical fracture of the proximal right femur. Orthopedic surgery consulted from ED. Admitted to [place], [place] 08/20/18 w/ Dr. Parker, s/p cement ed hemiarthroplasty right hip, PRN pain regimen, PRN antiemetics. PT/OT following operative intervention. CM consulted for discharge planning. Vitamin D 18.3 c/w vitamin D Deficiency, will start on vitamin D weekly 50,000 supplementation x 8 weeks with then oral transition. Plan SNF discharge tomorrow if felt appropriate per Surgery. (2) Chronic systolic congestive heart failure, nonischemic: Noted last ECHO 2013 w/ EF 35%, following w/ Dr. Shah, intolerance to beta blockers, maintain on statin. Prior was on on ARB and HCTZ, not on currently. (3) Hypertension: Not on regimen, previously had been on ARB, HCTZ, unclear why discontinued, monitor BP and if needed add regimen, following w/ [employer] thus would defer to their discretion. (4) Hyperlipidemia: Continue home statin regimen. (5) Diabetes mellitus type II: HgbA1c 5.9%. Hold oral home regimen, ADA diet, accu checks w/ ISS. (6) Depression: Continue home paxil regimen. (7) Dementia, Unclear type: Unclear behavioral disturbance history, maintain on home aricept regimen. (8) DVT prophylaxis: SCDs, xarelto. (9) CODE status: Discussed CODE status at length including difference between FULL code, DNR-CCA and DNR-CC status w/ patient and family given planned SNF transition and need for status for transition. Following discussions about the differences in these status, requested Full Code status. Patient and son present note his is his HCPOA. Advanced Care Planning Face to Face Time: 16 minutes. Code Visit Inpatient E&M: 30415 Subs Hosp L2 Procedures: 24234 Advncd Care Plan 30 Min
--- NOTE | 2018-08-21 10:20 | CASEMGMT ---
Social Work Note SW faxed clinicals to [facility]. Plan: TCU pending approval from [facility] [employer]ascale Phillips RELIGIOUS STUDIES PROFESSOR, SORTING LIVESTOCK WORKER
[2018-08-21 10:42] LABS: Magnesium 1.7 mg/dL (1.6-2.6)
[2018-08-21 11:46] LABS: Bedside Glucose 151 mg/dL (70-110)
[2018-08-21] MEDS: Insulin Lispro 100 UNIT/ML INSULN.PEN SQ ×2 (11:47→17:16)
--- NOTE | 2018-08-21 13:36 | CASEMGMT ---
Social Work Note SW received message from Ayana at [facility] who states she agrees to SNF at discharge for pt. SW placed a call to Екатерина in TCU and left her a message informing her of this. 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
[2018-08-21] MEDS: oxyCODONE 5 MG Tablet PO (14:46)
[2018-08-21] MEDS: Tamsulosin HCl 0.4 MG Capsule PO (17:16)
[2018-08-21 17:20] LABS: Bedside Glucose 119 mg/dL (70-110)
[2018-08-21] MEDS: Donepezil HCl 5 MG Tablet PO (22:04)
[2018-08-21] MEDS: Atorvastatin Calcium 10 MG Tablet PO (22:05)
[2018-08-21] MEDS: Doxazosin 1 MG Tablet PO (22:05)
[2018-08-22 02:30] VITALS: BP 126/61; PULSE 74; RESP 18; TEMP 36.7; O2SAT 95
[2018-08-22] MEDS: Acetaminophen 500 MG Tablet 1000 MG PO (05:25)
[2018-08-22] MEDS: Rivaroxaban 10 MG Tablet PO (05:25)
[2018-08-22 07:01] LABS: Bedside Glucose 119 mg/dL (70-110)
[2018-08-22 07:43] VITALS: BP 123/63; PULSE 72; RESP 21; TEMP 36.9; O2SAT 90; O2SAT 96
--- NOTE | 2018-08-22 07:55 | PCM.TXEXTCAR ---
- Diet 08/21/18 09:12 Diet: Diabetic Diet Is pt able to select menu?: Yes - Routine Orders/Code Status Enema Type: Fleetz Enema Frequency: Daily PRN Suppository Type: Dulcolax 10mg Suppository Frequency: Daily PRN Routine Lab Work: - - Repeat CBC, BMP within 1 week. Code Status: Full Code - Wound(s) LT ELBOW Wound Type: Abrasion LT WRIST Wound Type: Abrasion rt hip Wound Type: Surgical Incision Dressing Change: mepilex - Suggestions for Active Care Change Position every (hours): 2 Hours to sit in a chair: 6 Times a day to sit in chair: 3 - Therapies Weight Bearing: Weight bearing as tolerated Physical Therapy: Eval and Treat Occupational Therapy: Eval and Treat - Problem/Diagnosis (1) Closed right hip fracture Status: Acute Current Visit: Yes (2) Vitamin D deficiency Status: Acute Current Visit: Yes (3) BPH Status: Chronic Current Visit: No (4) Chronic systolic congestive heart failur Status: Chronic Comment: Ejection fraction 35% in 2013, following with Dr. Oliva Status post cardiac catheterization 2004, without obstructive coronary artery disease Current Visit: No (5) Diabetes mellitus type II Status: Chronic Current Visit: No (6) Gout Status: Chronic Current Visit: No (7) History of remote hairy cell leukemia Status: Chronic Comment: Was following with Dr. Zamorano, in remission Follow up with Dr. Mercado after discharge. Current Visit: No (8) Hypertension Status: Chronic Current Visit: No (9) Hyperlipidemia Status: Chronic Current Visit: No - Allergies/Procedures Done in Hospital Allergies/Adverse Reactions: Allergies No Known Allergies Allergy (Verified 08/19/18 19:28) Procedures: EKG, - - OR 08/20/18 w/ Dr. Parker, s/p cemented hemiarthroplasty right hip. - Type of Care/Length of Stay Estimated LOS: Convalescent Care Less Than 30 days Type of Care Needed: Skilled Rehab Potential: Good Prognosis: Good - Additional Orders/Day of Discharge Additional Orders: (1) HOB. (2) IS 10x/hr 7a-7p. (3) Fall precautions. (4) Continue vitamin D weekly supplementation x 6-8 weeks as noted and then will need transitioned to oral regimen following secondary to vitamin D deficiency noted during admission. (5) History of dementia, reorient as needed. (6) Orthopedic incision care per their discretion and please continue xarelto DVT Prophylaxis per their discretion. H&P will serve as current which was dated: 08/19/18 Day of Discharge: 08/22/18 - Follow Up Care Primary Care Physician: Wilfred Vázquez III, MD [Primary Care Provider] - Please follow up with your Primary Care Physician in: Follow-up within 1-2 days SNF discharge or within 3-5 days if prolonged SNF Please Follow Up With: Kolby Parker, DO When: Follow-up 1-2 weeks.
[2018-08-22 07:58] LABS: Hemoglobin 10.2 g/dl (13.0-16.5); Mean Corp Hgb Conc 32.9 g/gl (32-36); Mean Corpuscular Volume 94.2 fL (80-94); Mean Platelet Vol. 9.7 fl (6.2-12.0); Platelet Count 142 K/mm3 (150-450); RBC Distribution Width CV 16.4 % (11.6-14.6); Red Blood Count 3.29 M/mm3 (4.6-6.2); White Blood Count 7.3 K/mm3 (4.4-11.0)
--- NOTE | 2018-08-22 08:01 | PCM.PN.ORT ---
Patient Problems: Active and Suspected Problems (Last Updated 08/19/18 @ 15:49 by James Griffiths DO) Closed right hip fracture (Acute) Vitamin D deficiency (Acute) Subjective: Patient doing well. Wants to go home soon. - Physical Exam General: Alert, Oriented x3, No apparent distress Oral: Moist Mucosa Extremities: No cyanosis, Capillary Refill Less than 3 Seconds, No Calf Tenderness Skin: Incision - stable Neurological: Neuro grossly intact Vital Signs Temp Pulse Resp BP Pulse Ox 98.1 F 74 18 126/61 H 95 08/22/18 02:30 08/22/18 02:30 08/22/18 02:30 08/22/18 02:30 08/22/18 02:30 Oxygen Flow Rate (L/min) 2 Oxygen Delivery Method Room Air Weight: 161 lb 2.526 oz Body Mass Index (BMI) 25.9 Intake and Output for Last 24 Hours 08/20/18 08/21/18 08/22/18 23:59 23:59 23:59 Intake Total 1340 / 1340 2071 / 2071 250 / 250 Output Total 800 / 800 675 / 675 400 / 400 Balance 540 / 540 1396 / 1396 -150 / -150 Laboratory Tests Past 24 Hrs 08/21/18 08/22/18 08/22/18 05:00 07:28 07:28 WBC Pending RBC Pending Hgb Pending Hct Pending MCV Pending MCH Pending MCHC Pending RDW Pending RDW Differential Pending Plt Count Pending Sodium Pending Potassium Pending Chloride Pending Carbon Dioxide Pending Anion Gap Pending BUN Pending Creatinine Pending Est GFR (MDRD) Af Amer Pending Est GFR (MDRD) Non-Af Pending BUN/Creatinine Ratio Pending Glucose Pending Calcium Pending Magnesium 1.7 POC Glucose 08/22/18 08/21/18 08/21/18 06:45 16:54 11:40 POC Glucose 119 H 119 H 151 H Medical Necessity - Tobacco Use Smoking Status: Former smoker Tobacco Use: Cigarettes Assessment/Plan All Active Problems (Last Updated 08/19/18 @ 15:49 by James Griffiths DO) Closed right hip fracture (Acute) Vitamin D deficiency (Acute) Acute kidney injury (Resolved) Ethmoid sinusitis (Resolved) Multilobar Pneumonia (Resolved) Tendonitis (Resolved) s/p Hemiarthroplasty right hip for fracture May be d/donato when stable per hospitalist continue current DVT prophylaxis Will follow in office 10 days to 2 weeks after discharge
[2018-08-22 08:03] LABS: Scan Indicated on CBC? Y/N NO
--- NOTE | 2018-08-22 08:03 | DS.PCM_ITS ---
Discharge Date and Diagnosis - Problem List Patient Problems: Active and Suspected Problems (Last Updated 08/19/18 @ 15:49 by James Griffiths DO) Closed right hip fracture (Acute) Vitamin D deficiency (Acute) Date of Admission: 08/19/18 Date of Discharge: 08/22/18 - Primary Discharge Diagnosis Active and Suspected Problems (Last Updated 08/19/18 @ 15:49 by James Griffiths DO) (1) General debility, R hip pain s/p mechanical fall w/ Nondisplaced transcervical fracture of the proximal right femur (2) Chronic systolic congestive heart failure, nonischemic (3) Hypertension (4) Hyperlipidemia (5) Diabetes mellitus type II (6) Depression (7) Dementia, Unclear type (8) Vitamin D deficiency (9) CKD stage III (baseline Cr 1.1-1.2) - Secondary Discharge Diagnosis Chronic Problems (Last Updated 08/19/18 @ 15:49 by James Griffiths DO) BPH (Chronic) Chronic systolic congestive heart failur (Chronic) Ejection fraction 35% in 2013, following with Dr. Oliva Status post cardiac catheterization 2004, without obstructive coronary artery disease Diabetes mellitus type II (Chronic) Gout (Chronic) History of remote hairy cell leukemia (Chronic) Was following with Dr. Zamorano, in remission Follow up with Dr. Mercado after discharge. Hypertension (Chronic) Hyperlipidemia (Chronic) Hospital Course and Treatment Dr. Parker Orthopedic surgery Operations: - - 08/20/18 w/ Dr. Parker, s/p cemented hemiarthroplasty right hip. Procedures: None, EKG Summary of Care Provided: The patient is a 75 y/o M w/ PMHx: CKD stage III, Hairy Cell Leukemia following w/ Dr. Mercado, Chronic Systolic CHF (EF 35%, following w/ Dr. Wells, s/p cath 2004), Hypertension, Gout, Diabetes mellitus type II, BPH who presented to the [facility] ED on 08/19/18 with history of mechanical fall w/ resulting R hip pain, debility. Plain film noting Nondisplaced transcervical fracture of the proximal right femur. Orthopedic surgery consulted from ED. Admitted to [place], OR 08/20/18 w/ Dr. Parker, s/p cemented hemiarthroplasty right hip, PRN pain regimen, PRN antiemetics. PT/OT following operative intervention. CM consulted for discharge planning w/ SNF arranged. Vitamin D 18.3 c/w vitamin D Deficiency, started on vitamin D weekly 50,000 supplementation x 8 weeks with then recommended oral transition. Patient w/ history of Chronic systolic congestive heart failure, nonischemic w/ last ECHO 2013 w/ EF 35%, following w/ Dr. Shah, intolerance to beta blockers, maintained on statin w/ recent cardiology visit prior to ad mission. HgbA1c 5.9%. Held oral home regimen which was restarted again upon discharge w/ ADA diet, accu checks w/ ISS. Patient discharged to SNF in stable, improved condition for ongoing therapies w/ recommended PCP and Orthopedic surgery follow-up. Upon discharge to SNF, BUN/Cr 35/1.36, requested gentle amount of fluids, baseline Cr 1.1-1.2 with repeat BMP at SNF. DAY OF DISCHARGE PROGRESS NOTE: Subjective: Patient without acute event overnight per self and nursing report. Patient notes pain well controlled currently. Eager for transition to SNF from hospital setting. Patient denies fever, chills, nausea, emesis, abdominal pain, chest pain or dyspnea. Patient agreeable to discharge to SNF. Patient will be discharged with follow-up with primary care physician in addition to Orthopedic surgery. Objective: T 98.1, heart rate 74, BP 126/61, respiratory rate 16, 95% on room air. Physical Examination: General: awake, alert, oriented x 3 and cooperative, seated upright in bedside chair, in no apparent distress. Skin: normal color, turgor, no icterus, cyanosis, s/p R hip fx repair w/ dressing in place. HEENT: AT/NC, EOMI, PERRLA, MMM. Lungs: CTA bilaterally, moderate effort, mild decrease BL bases, no rales, ronchi or wheezing. Heart: Regular rate and rhythm; no gallop, rub audible. Abdomen: soft, NTTP, ND, normal BS. Extremities: no cyanosis, clubbing, s/p R hip fx repair, dressing in place. Neurological: patient awake, alert, oriented x 3; cognitive function intact; pupils equally reactive to light and accomodation; cranial nerves II-XII grossly normal, moving all 4 extremities although limited RLE given recent R hip fx s/p repair, strength accordingly moderately to severely globally decreased. Psychiatric: affect appears normal, no acute evidence of depressive or anxiety feelings. Assessment and Plan: Please see hospital summary above. Home Medications: Medications to take at Discharge Atorvastatin Calcium [Lipitor] 10 mg PO QHS 11/20/15 Doxazosin Mesylate [Cardura] 1 mg PO QHS 11/20/15 Metformin HCl [Glucophage] 500 mg PO BIDCM 11/20/15 Donepezil HCl [Aricept] 5 mg PO QHS 11/28/17 Meloxicam 7.5 mg PO DAILY 11/28/17 Paroxetine [Paxil] 10 mg PO DAILY 11/28/17 Allopurinol [Zyloprim] 300 mg PO DAILY 04/30/18 Acetaminophen [Tylenol] 1,000 mg PO Q8 3 Days tablet 08/22/18 Ergocalciferol [Vitamin D] 50,000 unit PO Q7D@1000 capsule 08/22/18 Insulin Lispro [Humalog KwikPen] See Protocol SQ TIDAC insuln.pen 08/22/18 Oxycodone [Oxyir] 5 mg PO Q4H PRN PRN 5 Days #30 tablet 08/22/18 Rivaroxaban [Xarelto] 10 mg PO DAILY@0600 tablet 08/22/18 Senna/Docusate Sodium [Senokot-S] 2 tablet PO BID tablet 08/22/18 Tamsulosin HCl [Flomax] 0.4 mg PO DAILY@1730 capsule 08/22/18 Primary Care Physician: Wilfred Vázquez III, MD [Primary Care Provider] - Please follow up with your Primary Care Physician in: Follow-up within 1-2 days SNF discharge or within 3-5 days if prolonged SNF Please Follow Up With: Kolby Parker DO When: Follow-up 1-2 weeks. Disposition: [facility] facility Minutes spent on discharge:: 35 Patient Condition:: Fair Medical Necessity - Tobacco Use Smoking Status: Former smoker Tobacco Use: Cigarettes Meaningful Use Info Meaningful Use Diagnoses (Choose all that apply): None applicable Code Visit Inpatient E&M: 89208 Disch Hosp
[2018-08-22 08:20] LABS: Anion Gap 6 (5-15); BUN 35 mg/dL (7-18); BUN/Creat Ratio 25.7 RATIO (10-20); Calcium,Total 8.4 mg/dL (8.5-10.1); Chloride 106 mmol/L (98-107); Creatinine, Serum 1.36 mg/dL (0.70-1.30); EST Glomerular Filtration Rate 54 mL/min (>60); Est Glom Filt Rate - Afr Amer 66 mL/min (>60); Glucose 140 mg/dL (74-106); Sodium Level 139 mmol/L (136-145)
[2018-08-22] MEDS: Allopurinol 300 MG Tablet PO (08:41)
[2018-08-22] MEDS: PARoxetine 10 MG Tablet PO (08:41)
[2018-08-22] MEDS: oxyCODONE 5 MG Tablet PO (08:42)
[2018-08-22] MEDS: Senna/Docusate Sodium 1 Tablet 2 TABLET PO (08:43)
--- NOTE | 2018-08-22 10:23 | CASEMGMT ---
Social Work Note PER received message from Екатерина in TCU stating that pre-cert has been obtained and pt is able to discharge today. PER updated physician, marketing secretary Christal, Charge Nurse Viridiana and RN Holly of this. PER in to update pt on this. Pt states understanding and requesting to have this SW call his Annemarie and his son Vargas. PER placed a call to pt's Annemarie and left a message and spoke with pt's son Vargas and updated them that pt has been approved and will be discharged today to TCU. Vargas states understanding. 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
--- NOTE | 2018-08-22 10:53 | NURSING ---
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
== END 2018-08-22 10:45 | disposition skilled nursing facility (03) | DRG 470 ==
LOC: ED 13:34 → MS3 15:17
PROVIDERS: Anesthesiology; Internal Medicine; Nurse Practitioner Family; Orthopaedic Surgery; Emergency Provider Emergency Medicine; Family Provider Family Medicine; PCP Family Medicine; Visit Provider Family Medicine
PROC: 0SRR0J9 Replacement of Right Hip Joint, Femoral Surface with Synthetic Substitute, Cemented, Open Approach (ICD-10-PCS; CPT 27125; principal; 2018-08-20 07:15)
DX: S72.034A Nondisplaced midcervical fracture of right femur, initial encounter for closed fracture (principal); C91.41 Hairy cell leukemia, in remission; I50.22 Chronic systolic (congestive) heart failure; F03.91 Unspecified dementia, unspecified severity, with behavioral disturbance; I13.0 Hypertensive heart and chronic kidney disease with heart failure and stage 1 through stage 4 chronic kidney disease, or unspecified chronic kidney disease; W10.9XXA Fall (on) (from) unspecified stairs and steps, initial encounter; Y92.018 Other place in single-family (private) house as the place of occurrence of the external cause; M10.9 Gout, unspecified; E78.5 Hyperlipidemia, unspecified; Z79.84 Long term (current) use of oral hypoglycemic drugs; Z79.899 Other long term (current) drug therapy; E55.9 Vitamin D deficiency, unspecified; F32.9 Major depressive disorder, single episode, unspecified; E11.22 Type 2 diabetes mellitus with diabetic chronic kidney disease; N18.3 Chronic kidney disease, stage 3 (moderate); Z87.891 Personal history of nicotine dependence
CPT/HCPCS: 36415; 71045; 73502; 80048; 82306; 82962; 83036; 83735; 84484; 85025; 85027; 85610; 86850; 86900; 88305; 88311; 93005; 97162; 97165; 99284; C1776; J7120; A4216; J2405

== ENCOUNTER 2018-08-22 11:00 | Inpatient (IN) | payer MEDICARE, SELFPAY ==
[2018-08-22 11:22] VITALS: BP 143/59; PULSE 67; PULSE 87; RESP 20; TEMP 37.2; O2SAT 92; O2SAT 93
--- NOTE | 2018-08-22 11:23 | NURSING ---
Pt admitted to room 12 from [facility]3 via bed. Patient oriented to room and call light system explained.
[2018-08-22 11:40] LABS: Bedside Glucose 120 mg/dL (70-110)
--- NOTE | 2018-08-22 12:40 | NURSING ---
Addendum entered by Zeina Jones 08/22/18 15:48: ALANA Walker called from [facility]. Order to d/c dressing on 08/27 and apply aquacel AG and CD and d/c gilda on 09/01. Original Note: Spoke with Dr. Parker's nurse, will find out when surgical dressing can be removed.
[2018-08-22 13:48] VITALS: BMI 28.8
--- NOTE | 2018-08-22 14:08 | PCM.HP.STD ---
Problem List (1) Fall Status: Acute (2) BPH (benign prostatic hyperplasia) Status: Chronic (3) Chronic systolic heart failure Status: Chronic (4) Diabetes mellitus Status: Chronic (5) Gout Status: Chronic (6) Hairy cell leukemia Status: Chronic (7) Hypertension Status: Chronic (8) Alzheimer's disease Status: Chronic (9) Depression Status: Chronic (10) Closed right hip fracture Status: Acute Qualifiers: History of Present Illness Date of Admission: 08/22/18 Chief Complaint: Here for rehabilitation, strengthening, prior to discharge home with spouse. The patient is a 78 year old Male with below past medical history presented to [facility] Emergency Department 08/19/2018 with right hip pain. 08/19/2018 Chest X-ray elevated left hemidiaphragm, mild left basilar scarring. 08/19/2018 X-ray pelvis, right hip showed right hip fracture. Fall, right hip pain. Labs okay. Morphine, Zofran IV given. 08/19/[address]. Parker consulted. PT/OT consulted. 08/20/2018 Dr. Parker performed right hip cemented hemiarthroplasty. 08/22/2018 Admit to TCU with debility, here for rehabilitation, strengthening, prior to discharge home with spouse. Past Medical History Past Medical History (Chronic Problems): Chronic Problems (Last Updated 08/19/18 @ 15:49 by James Griffiths DO) BPH (Chronic) Chronic systolic congestive heart failur (Chronic) Ejection fraction 35% in 2013, following with Dr. Oliva Status post cardiac catheterization 2004, without obstructive coronary artery disease Diabetes mellitus type II (Chronic) Gout (Chronic) History of remote hairy cell leukemia (Chronic) Was following with Dr. Zamorano, in remission Follow up with Dr. Mercado after discharge. Hypertension (Chronic) Hyperlipidemia (Chronic) BPH (benign prostatic hyperplasia) (Chronic) Chronic systolic heart failure (Chronic) Diabetes mellitus (Chronic) Gout (Chronic) Hairy cell leukemia (Chronic) Hypertension (Chronic) Alzheimer's disease (Chronic) Depression (Chronic) Medical History: Medical History (Last Updated 08/19/18 @ 15:49 by James Griffiths DO) DM2 (diabetes mellitus, type 2) E11.9 Encephalopathy G93.40 Gout M10.9 Hairy cell leukemia C91.40 Heart failure with reduced ejection fraction I50.20 HTN (hypertension) I10 Allergies No Known Allergies Allergy (Verified 08/19/18 19:28) Home Medications: Ambulatory Orders Medication Instructions Recorded Atorvastatin Calcium [Lipitor] 10 mg PO QHS 11/20/15 Doxazosin Mesylate [Cardura] 1 mg PO QHS 11/20/15 Metformin HCl [Glucophage] 500 mg PO BIDCM 11/20/15 Donepezil HCl [Aricept] 5 mg PO QHS 11/28/17 Meloxicam 7.5 mg PO DAILY 11/28/17 Paroxetine [Paxil] 10 mg PO DAILY 11/28/17 Allopurinol [Zyloprim] 300 mg PO DAILY 04/30/18 Acetaminophen [Tylenol] 1,000 mg PO Q8 08/22/18 Ergocalciferol [Vitamin D] 50,000 unit PO Q7D@1000 08/22/18 Insulin Lispro [Humalog KwikPen] See Protocol SQ TIDAC 08/22/18 Oxycodone [Oxyir] 5 mg PO Q4H PRN PRN 5 Days #30 08/22/18 tablet Rivaroxaban [Xarelto] 10 mg PO DAILY@0600 08/22/18 Senna/Docusate Sodium [Senokot-S] 2 tablet PO BID 08/22/18 Tamsulosin HCl [Flomax] 0.4 mg PO DAILY@1730 08/22/18 Surgical History: tonsillectomy, - - Splenectomy, back surgery x 2, knee surgery. Psychiatric History: Depression Lives: Spouse/ Significant Other Smoking Status: Former smoker Tobacco Use: Non-smoker Alcohol: None Drugs: None - *Family History Maternal History Items: Cancer Paternal History Items: Hypertension Review of Systems Constitutional: Denies: Chills, Fever, Weight Change HEENT: Denies: Head Aches, Sinus Congestion, Sinus Drainage Cardiovascular: Denies: Chest Pain, Palpitations Respiratory: Denies: Cough, Shortness of breath at rest, Sputum production Gastrointestinal: Denies: Abdominal Pain, Nausea, Vomiting Genitourinary: Denies: Dysuria Musculoskeletal: Denies: Joint Pain, Joint Tenderness Skin: Denies: Rash, Wounds Neurological: Denies: Numbness, Tingling, Focal weakness Psychiatric: Denies: Anxiety, Depression, Homicidal Ideations, Suicidal Ideations Hematologic/ Lymphatic: Denies: Easy Bruising, Easy Bleeding VTE Information - Inpt Only VTE Present on Admission: No VTE Mechan Device Prophylaxis: Knee High ALIZA Hose VTE Pharm Prophylaxis ordered?: Yes Patient Problems: Active and Suspected Problems (Last Updated 08/19/18 @ 15:49 by James Griffiths DO) Fall (Acute) - Physical Exam General: Alert, Oriented x3, Cooperative HEENT: Atraumatic, PERRLA, EOMI, Normocephalic Neck: Supple, No JVD, Negative Carotid Bruits Lungs: Clear to auscultation, Normal air movement Cardiovascular: Regular rate, No murmurs Abdomen: Bowel Sounds Present, Soft, Non Tender Extremities: No edema, Capillary Refill Less than 3 Seconds Skin: No rashes, No breakdown, Incision - Right hip clean, dry, intact. Musculoskeletal: No Tenderness to Palpation of Joints or Extremities Neurological: Cranial nerves II-XII grossly intact Psych/Mental Status: Normal Affect, Appropriate Vital Signs Temp Pulse Resp BP Pulse Ox 98.9 F 67 20 H 143/59 H 92 08/22/18 11:22 08/22/18 11:22 08/22/18 11:22 08/22/18 11:22 08/22/18 11:22 Oxygen Delivery Method Room Air Weight: 76.742 kg Body Mass Index (BMI) 28.8 POC Glucose 08/22/18 11:28 POC Glucose 120 H Assessment/Plan All Active Problems (Last Updated 08/19/18 @ 15:49 by James Griffiths DO) Closed right hip fracture (Acute) Vitamin D deficiency (Acute) Fall (Acute) Acute kidney injury (Resolved) Ethmoid sinusitis (Resolved) Multilobar Pneumonia (Resolved) Tendonitis (Resolved) 78 year old male with below past medical history hospitalized for right hip fracture, underwent right hip cemented hemiarthroplasty 08/20/[address] Parker, admitted to TCU with debility, here for rehabilitation, strengthening, prior to discharge home with spouse. Debility - PT/OT. Pain - Tylenol 1000MG Q8H, Oxycodone 5MG Q4H PRN moderate pain. Bowel - Miralax 17GM daily, senna/colace 2 tablets BID, Dulcolax 10MG daily PRN. Pneumonia vaccination - Administer Prevnar 13 and/or Pneumovax 23 as necessary. DVT prophylaxis - Xarelto 10MG daily thru 09/25/2018. Gout - Allopurinol 300MG daily. Hyperlipidemia - Atorvastatin 10MG QHS. Alzheimer's Disease - Donepezil 5MG QHS. Vitamin D deficiency - D2 50,000 units per week. Osteoarthritis - Meloxicam 7.5MG daily. Diabetes Mellitus II - Metformin 500MG BID. Depression - Paroxetine 10MG daily. BPH - Tamsulosin 0.4MG daily, stop Doxazosin, 1 alpha lynn is enough. Chronic systolic heart failure - EF 35%, beta blockers intolerable, start Entresto 24/26MG BID x 2 weeks, then 49/51MG BID x 2 weeks, then 97/103MG BID continuously to decrease risk of , hospitalized from heart failure.
--- NOTE | 2018-08-22 14:16 | HP.PCM_ITS ---
Problem List (1) Fall Status: Acute (2) BPH (benign prostatic hyperplasia) Status: Chronic (3) Chronic systolic heart failure Status: Chronic (4) Diabetes mellitus Status: Chronic (5) Gout Status: Chronic (6) Hairy cell leukemia Status: Chronic (7) Hypertension Status: Chronic (8) Alzheimer's disease Status: Chronic (9) Depression Status: Chronic (10) Closed right hip fracture Status: Acute Qualifiers: History of Present Illness Date of Admission: 08/22/18 Chief Complaint: Here for rehabilitation, strengthening, prior to discharge home with spouse. The patient is a 78 year old Male with below past medical history presented to [facility] Emergency Department 08/19/2018 with right hip pain. 08/19/2018 Chest X-ray elevated left hemidiaphragm, mild left basilar scarring. 08/19/2018 X-ray pelvis, right hip showed right hip fracture. Fall, right hip pain. Labs okay. Morphine, Zofran IV given. 08/19/[address]. Parker consulted. PT/OT consulted. 08/20/2018 Dr. Parker performed right hip cemented hemiarthroplasty. 08/22/2018 Admit to TCU with debility, here for rehabilitation, strengthening, prior to discharge home with spouse. Past Medical History Past Medical History (Chronic Problems): Chronic Problems (Last Updated 08/19/18 @ 15:49 by James Griffiths DO) BPH (Chronic) Chronic systolic congestive heart failur (Chronic) Ejection fraction 35% in 2013, following with Dr. Oliva Status post cardiac catheterization 2004, without obstructive coronary artery disease Diabetes mellitus type II (Chronic) Gout (Chronic) History of remote hairy cell leukemia (Chronic) Was following with Dr. Zamorano, in remission Follow up with Dr. Mercado after discharge. Hypertension (Chronic) Hyperlipidemia (Chronic) BPH (benign prostatic hyperplasia) (Chronic) Chronic systolic heart failure (Chronic) Diabetes mellitus (Chronic) Gout (Chronic) Hairy cell leukemia (Chronic) Hypertension (Chronic) Alzheimer's disease (Chronic) Depression (Chronic) Medical History: Medical History (Last Updated 08/19/18 @ 15:49 by James Griffiths DO) DM2 (diabetes mellitus, type 2) E11.9 Encephalopathy G93.40 Gout M10.9 Hairy cell leukemia C91.40 Heart failure with reduced ejection fraction I50.20 HTN (hypertension) I10 Allergies No Known Allergies Allergy (Verified 08/19/18 19:28) Home Medications: Ambulatory Orders Medication Instructions Recorded Atorvastatin Calcium [Lipitor] 10 mg PO QHS 11/20/15 Doxazosin Mesylate [Cardura] 1 mg PO QHS 11/20/15 Metformin HCl [Glucophage] 500 mg PO BIDCM 11/20/15 Donepezil HCl [Aricept] 5 mg PO QHS 11/28/17 Meloxicam 7.5 mg PO DAILY 11/28/17 Paroxetine [Paxil] 10 mg PO DAILY 11/28/17 Allopurinol [Zyloprim] 300 mg PO DAILY 04/30/18 Acetaminophen [Tylenol] 1,000 mg PO Q8 08/22/18 Ergocalciferol [Vitamin D] 50,000 unit PO Q7D@1000 08/22/18 Insulin Lispro [Humalog KwikPen] See Protocol SQ TIDAC 08/22/18 Oxycodone [Oxyir] 5 mg PO Q4H PRN PRN 5 Days #30 08/22/18 tablet Rivaroxaban [Xarelto] 10 mg PO DAILY@0600 08/22/18 Senna/Docusate Sodium [Senokot-S] 2 tablet PO BID 08/22/18 Tamsulosin HCl [Flomax] 0.4 mg PO DAILY@1730 08/22/18 Surgical History: tonsillectomy, - - Splenectomy, back surgery x 2, knee surgery. Psychiatric History: Depression Lives: Spouse/ Significant Other Smoking Status: Former smoker Tobacco Use: Non-smoker Alcohol: None Drugs: None - *Family History Maternal History Items: Cancer Paternal History Items: Hypertension Review of Systems Constitutional: Denies: Chills, Fever, Weight Change HEENT: Denies: Head Aches, Sinus Congestion, Sinus Drainage Cardiovascular: Denies: Chest Pain, Palpitations Respiratory: Denies: Cough, Shortness of breath at rest, Sputum production Gastrointestinal: Denies: Abdominal Pain, Nausea, Vomiting Genitourinary: Denies: Dysuria Musculoskeletal: Denies: Joint Pain, Joint Tenderness Skin: Denies: Rash, Wounds Neurological: Denies: Numbness, Tingling, Focal weakness Psychiatric: Denies: Anxiety, Depression, Homicidal Ideations, Suicidal Ideations Hematologic/ Lymphatic: Denies: Easy Bruising, Easy Bleeding VTE Information - Inpt Only VTE Present on Admission: No VTE Mechan Device Prophylaxis: Knee High ALIZA Hose VTE Pharm Prophylaxis ordered?: Yes Patient Problems: Active and Suspected Problems (Last Updated 08/19/18 @ 15:49 by James Griffiths DO) Fall (Acute) - Physical Exam General: Alert, Oriented x3, Cooperative HEENT: Atraumatic, PERRLA, EOMI, Normocephalic Neck: Supple, No JVD, Negative Carotid Bruits Lungs: Clear to auscultation, Normal air movement Cardiovascular: Regular rate, No murmurs Abdomen: Bowel Sounds Present, Soft, Non Tender Extremities: No edema, Capillary Refill Less than 3 Seconds Skin: No rashes, No breakdown, Incision - Right hip clean, dry, intact. Musculoskeletal: No Tenderness to Palpation of Joints or Extremities Neurological: Cranial nerves II-XII grossly intact Psych/Mental Status: Normal Affect, Appropriate Vital Signs Temp Pulse Resp BP Pulse Ox 98.9 F 67 20 H 143/59 H 92 08/22/18 11:22 08/22/18 11:22 08/22/18 11:22 08/22/18 11:22 08/22/18 11:22 Oxygen Delivery Method Room Air Weight: 76.742 kg Body Mass Index (BMI) 28.8 POC Glucose 08/22/18 11:28 POC Glucose 120 H Assessment/Plan All Active Problems (Last Updated 08/19/18 @ 15:49 by James Griffiths DO) Closed right hip fracture (Acute) Vitamin D deficiency (Acute) Fall (Acute) Acute kidney injury (Resolved) Ethmoid sinusitis (Resolved) Multilobar Pneumonia (Resolved) Tendonitis (Resolved) 78 year old male with below past medical history hospitalized for right hip fracture, underwent right hip cemented hemiarthroplasty 08/20/[address] Parker, admitted to TCU with debility, here for rehabilitation, strengthening, prior to discharge home with spouse. * Debility - PT/OT. * Pain - Tylenol 1000MG Q8H, Oxycodone 5MG Q4H PRN moderate pain. * Bowel - Miralax 17GM daily, senna/colace 2 tablets BID, Dulcolax 10MG daily PRN. * Pneumonia vaccination - Administer Prevnar 13 and/or Pneumovax 23 as necessary. * DVT prophylaxis - Xarelto 10MG daily thru 09/25/2018. * Gout - Allopurinol 300MG daily. * Hyperlipidemia - Atorvastatin 10MG QHS. * Alzheimer's Disease - Donepezil 5MG QHS. * Vitamin D deficiency - D2 50,000 units per week. * Osteoarthritis - Meloxicam 7.5MG daily. * Diabetes Mellitus II - Metformin 500MG BID. * Depression - Paroxetine 10MG daily. * BPH - Tamsulosin 0.4MG daily, stop Doxazosin, 1 alpha lynn is enough. * Chronic systolic heart failure - EF 35%, beta blockers intolerable, start Entresto 24/26MG BID x 2 weeks, then 49/51MG BID x 2 weeks, then 97/103MG BID continuously to decrease risk of , hospitalized from heart failure.
[2018-08-22 14:19] VITALS: BMI 28.9
[2018-08-22 15:53] VITALS: BP 151/78; PULSE 92; RESP 16; TEMP 37.2; O2SAT 96
[2018-08-22] MEDS: Acetaminophen 500 MG Tablet 1000 MG PO ×2 (16:08→22:29)
[2018-08-22 16:56] LABS: Bedside Glucose 141 mg/dL (70-110)
[2018-08-22] MEDS: SACUBITRIL/VALSARTAN 24/26 MG TABLET 1 EACH PO (17:37)
[2018-08-22] MEDS: Senna/Docusate Sodium 1 Tablet 2 TABLET PO (17:37)
[2018-08-22] MEDS: Tamsulosin HCl 0.4 MG Capsule PO (17:37)
--- NOTE | 2018-08-22 18:31 | NURSING ---
Patient having difficulty urinating, only dribbling very small amount of urine. Dr. De Jesus updated, okay to straight cath patient if unable to urinate, if have to sc 3 times, insert brooks and notify him.
[2018-08-22 21:25] LABS: Bedside Glucose 148 mg/dL (70-110)
[2018-08-22] MEDS: Atorvastatin Calcium 10 MG Tablet PO (22:29)
[2018-08-22] MEDS: Donepezil HCl 5 MG Tablet PO (22:29)
[2018-08-23] MEDS: Polyethylene Glycol 3350 17 GM PACKET PO (04:51)
[2018-08-23] MEDS: Senna/Docusate Sodium 1 Tablet 2 TABLET PO (04:52)
[2018-08-23] MEDS: PARoxetine 10 MG Tablet PO (04:52)
[2018-08-23] MEDS: Rivaroxaban 10 MG Tablet PO (04:52)
[2018-08-23] MEDS: Meloxicam 7.5 MG Tablet PO (04:52)
[2018-08-23] MEDS: SACUBITRIL/VALSARTAN 24/26 MG TABLET 1 EACH PO ×2 (04:52→16:57)
[2018-08-23] MEDS: Acetaminophen 500 MG Tablet 1000 MG PO ×3 (04:52→20:39)
[2018-08-23 06:41] LABS: Bedside Glucose 99 mg/dL (70-110)
[2018-08-23 07:17] LABS: Absolute Lymphocyte Count 1.56 X10^3/ul (0.83-4.51); Absolute Neutrophil Count 5.9 X10^3/uL (2.0-7.7); Basophil# 0.01 X10^3/uL; Basophil% 0.1 % (0-1); Eosinophils% 1.3 % (0-5); Hematocrit 29.8 % (40-54); Hemoglobin 10.1 g/dl (13.0-16.5); Lymphocyte # 1.56 X10^3/ul (4.0); Lymphocyte % 19.7 % (19-41); Mean Corp Hgb Conc 33.9 g/gl (32-36); Mean Corpuscular Hgb 31.6 pg (27.0-32.0); Mean Corpuscular Volume 93.1 fL (80-94); Mean Platelet Vol. 10.8 fl (6.2-12.0); Monocyte# 0.36 X10^3/uL; Monocyte% 4.6 % (0-10); Neutrophil # 5.86 X10^3/uL (2.7-7.7); Neutrophil % 74.2 % (47-70); Platelet Count 176 K/mm3 (150-450); RBC Distribution Width CV 16.6 % (11.6-14.6); White Blood Count 7.9 K/mm3 (4.4-11.0)
[2018-08-23 07:23] LABS: POSITIVE COUNT NO; POSITIVE DIFFERENTIAL NO; POSITIVE MORPHOLOGY NO
[2018-08-23 07:47] LABS: Anion Gap 7 (5-15); BUN 22 mg/dL (7-18); BUN/Creat Ratio 25.2 RATIO (10-20); Calcium,Total 8.6 mg/dL (8.5-10.1); Chloride 108 mmol/L (98-107); Creatinine, Serum 0.87 mg/dL (0.70-1.30); EST Glomerular Filtration Rate 90 mL/min (>60); Est Glom Filt Rate - Afr Amer 109 mL/min (>60); Estimated Creatinine Clearance 60.49 ml/min; Glucose 97 mg/dL (74-106); Potassium 4.1 mmol/L (3.5-5.1); Sodium Level 139 mmol/L (136-145)
[2018-08-23] MEDS: Allopurinol 300 MG Tablet PO (09:12)
[2018-08-23 11:41] LABS: Bedside Glucose 108 mg/dL (70-110)
[2018-08-23] MEDS: Tuberculin,Purif.prot.deriv. 50 TU/ML Vial 5 ML ID (12:47)
[2018-08-23 15:17] VITALS: TEMP 36.9
[2018-08-23 15:37] VITALS: BP 171/76; PULSE 90; RESP 16; TEMP 36.9; O2SAT 95
[2018-08-23] MEDS: Tamsulosin HCl 0.4 MG Capsule PO (16:57)
--- NOTE | 2018-08-23 19:20 | NURSING ---
pt urinated 200mL multiple times today in urinal w/o difficulty. Bladder scans x2 <200 both times. Pt denies any urinary discomfort. Will continue to monitor.
[2018-08-23] MEDS: Atorvastatin Calcium 10 MG Tablet PO (20:39)
[2018-08-23] MEDS: Donepezil HCl 5 MG Tablet PO (20:39)
[2018-08-24] MEDS: Acetaminophen 500 MG Tablet 1000 MG PO ×3 (04:46→20:13)
[2018-08-24] MEDS: Rivaroxaban 10 MG Tablet PO (04:46)
[2018-08-24] MEDS: Meloxicam 7.5 MG Tablet PO (04:46)
[2018-08-24] MEDS: SACUBITRIL/VALSARTAN 24/26 MG TABLET 1 EACH PO ×2 (04:46→17:03)
[2018-08-24] MEDS: PARoxetine 10 MG Tablet PO (04:46)
[2018-08-24] MEDS: oxyCODONE 5 MG Tablet PO (07:25)
[2018-08-24] MEDS: Allopurinol 300 MG Tablet PO (07:25)
[2018-08-24 07:26] LABS: Bedside Glucose 101 mg/dL (70-110)
[2018-08-24 15:46] VITALS: BP 159/68; PULSE 56; RESP 18; TEMP 36.6; O2SAT 95
[2018-08-24] MEDS: Tamsulosin HCl 0.4 MG Capsule PO (17:03)
[2018-08-24] MEDS: Atorvastatin Calcium 10 MG Tablet PO (20:14)
[2018-08-24] MEDS: Donepezil HCl 5 MG Tablet PO (20:15)
[2018-08-25] MEDS: Meloxicam 7.5 MG Tablet PO (05:53)
[2018-08-25] MEDS: SACUBITRIL/VALSARTAN 24/26 MG TABLET 1 EACH PO ×2 (05:53→17:13)
[2018-08-25] MEDS: Acetaminophen 500 MG Tablet 1000 MG PO ×3 (05:53→21:00)
[2018-08-25] MEDS: Rivaroxaban 10 MG Tablet PO (05:53)
[2018-08-25] MEDS: PARoxetine 10 MG Tablet PO (05:53)
[2018-08-25 06:30] LABS: Bedside Glucose 97 mg/dL (70-110)
[2018-08-25] MEDS: Allopurinol 300 MG Tablet PO (09:15)
[2018-08-25 10:00] VITALS: PULSE 70; O2SAT 96
--- NOTE | 2018-08-25 14:44 | PCM.PN.RX ---
<Rolando Schwartz D - Last Filed: 08/25/18 14:44> Progress Note - Pharmacy Subjective: TCU Admission Objective: Allergies No Known Allergies Allergy (Verified 08/19/18 19:28) Current Medications Generic Name Dose Route Start Last Admin Trade Name Freq PRN Reason Stop Dose Admin Acetaminophen 1,000 mg 08/22/18 14:00 08/25/18 05:53 Tylenol PO 1,000 mg Q8 [facility] Administration Allopurinol 300 mg 08/23/18 08:00 08/25/18 09:15 Zyloprim PO 300 mg DAILY@0800 [facility] Administration Atorvastatin Calcium 10 mg 08/22/18 22:00 08/24/18 20:14 Lipitor PO 10 mg QHS [facility] Administration Bisacodyl 10 mg 08/22/18 12:16 Dulcolax PO DAILY PRN Constipation Donepezil HCl 5 mg 08/22/18 22:00 08/24/18 20:15 Aricept PO 5 mg QHS [facility] Administration Ergocalciferol 50,000 unit 08/28/18 10:00 Vitamin D PO Q7D@1000 [facility] Meloxicam 7.5 mg 08/23/18 06:00 08/25/18 05:53 Mobic PO 7.5 mg DAILY [facility] Administration Metformin HCl 500 mg 08/22/18 17:00 08/25/18 09:15 Glucophage PO 500 mg BIDCM [facility] Administration Oxycodone HCl 5 mg 08/22/18 12:15 08/24/18 07:25 Oxyir PO 5 mg Q4H PRN PRN Administration Moderate Pain (pain scale 4-5) Paroxetine HCl 10 mg 08/23/18 06:00 08/25/18 05:53 Paxil PO 10 mg DAILY [facility] Administration Polyethylene Glycol 17 gm 08/23/18 06:00 08/25/18 05:54 Miralax PO Not Given DAILY [facility] Rivaroxaban 10 mg 08/23/18 06:00 08/25/18 05:53 Xarelto PO 09/25/18 23:59 10 mg DAILY@0600 [facility] Administration Senna/Docusate Sodium 2 tablet 08/22/18 18:00 08/25/18 05:54 Senokot-S, Bertha-Colace PO Not Given BID [facility] Tamsulosin HCl 0.4 mg 08/22/18 17:30 08/24/18 17:03 Flomax PO 0.4 mg DAILY@1730 [facility] Administration Tuberculin PPD 5 tu 08/30/18 10:00 Tubersol, Aplisol, Ppd ID 08/30/18 10:01 X1 ONE Problem List (Last Updated 08/19/18 @ 15:49 by James Griffiths DO) Fall (Acute) BPH (benign prostatic hyperplasia) (Chronic) Chronic systolic heart failure (Chronic) Diabetes mellitus (Chronic) Gout (Chronic) Hairy cell leukemia (Chronic) Hypertension (Chronic) Alzheimer's disease (Chronic) Depression (Chronic) Vital Signs Temp Pulse Resp BP Pulse Ox 97.8 F 70 18 159/68 H 96 08/24/18 15:46 08/25/18 10:00 08/24/18 15:46 08/24/18 15:46 08/25/18 10:00 Oxygen Delivery Method Room Air Weight: 71.668 kg Body Mass Index (BMI) 28.8 Sodium 139 mmol/L (136-145) 08/23/18 06:18 Potassium 4.1 mmol/L (3.5-5.1) 08/23/18 06:18 Chloride 108 mmol/L (98-107) H 08/23/18 06:18 Carbon Dioxide 24.0 mmol/L (21.0-32.0) 08/23/18 06:18 Anion Gap 7 (5-15) 08/23/18 06:18 BUN 22 mg/dL (7-18) H 08/23/18 06:18 Creatinine 0.87 mg/dL (0.70-1.30) 08/23/18 06:18 Est GFR (MDRD) Af Amer 109 mL/min (>60) 08/23/18 06:18 Est GFR (MDRD) Non-Af 90 mL/min (>60) 08/23/18 06:18 BUN/Creatinine Ratio 25.2 RATIO (10-20) H 08/23/18 06:18 Glucose 97 mg/dL (74-106) 08/23/18 06:18 Assessment/Plan: 1) Pain APAP, meloxicam, prn oxycodone. Continue to monitor prn medication use, daily pain scores. 2) CHF Sacubitril/valsartan. Continue to monitor swelling, renal function, electrolytes, BP/HR. 3) DM2 Metformin twice daily, atorvastatin. Continue to monitor renal function, BGT, lipids. 4) Gout Allopurinol daily. Continue to monitor gout sxs. 5) BPH Tamsulosin daily. Continue to monitor for sxs. 6) Alzheimer's Donepezil at HS. Continue to monitor clinically. 7) DVT PPx Rivaroxaban. Continue to monitor s/s bleeding/clot. Psychotropic Medications: 8) Depression Paroxetine daily. Continue to monitor s/s depression. Unnecessary Medications: None Bowel Regimen: 9) Senna/s, PEG, prn bisacodyl. Continue to monitor prn medication use, for constipation/diarrhea. Date of Note:: 08/25/18 - Provider Comments Provider responsibility: Provider responsible to enter orders to implement recommendations <Alexei De Jesus Chi - Last Filed: 08/25/18 17:39> Progress Note - Pharmacy Subjective: [] Objective: Allergies No Known Allergies Allergy (Verified 08/19/18 19:28) Current Medications Generic Name Dose Route Start Last Admin Trade Name Freq PRN Reason Stop Dose Admin Acetaminophen 1,000 mg 08/22/18 14:00 08/25/18 14:56 Tylenol PO 1,000 mg Q8 [facility] Administration Allopurinol 300 mg 08/23/18 08:00 08/25/18 09:15 Zyloprim PO 300 mg DAILY@0800 [facility] Administration Atorvastatin Calcium 10 mg 08/22/18 22:00 08/24/18 20:14 Lipitor PO 10 mg QHS [facility] Administration Bisacodyl 10 mg 08/22/18 12:16 Dulcolax PO DAILY PRN Constipation Donepezil HCl 5 mg 08/22/18 22:00 08/24/18 20:15 Aricept PO 5 mg QHS [facility] Administration Ergocalciferol 50,000 unit 08/28/18 10:00 Vitamin D PO Q7D@1000 [facility] Meloxicam 7.5 mg 08/23/18 06:00 08/25/18 05:53 Mobic PO 7.5 mg DAILY [facility] Administration Metformin HCl 500 mg 08/22/18 17:00 08/25/18 17:13 Glucophage PO 500 mg BIDCM [facility] Administration Oxycodone HCl 5 mg 08/22/18 12:15 08/24/18 07:25 Oxyir PO 5 mg Q4H PRN PRN Administration Moderate Pain (pain scale 4-5) Paroxetine HCl 10 mg 08/23/18 06:00 08/25/18 05:53 Paxil PO 10 mg DAILY [facility] Administration Polyethylene Glycol 17 gm 08/23/18 06:00 08/25/18 05:54 Miralax PO Not Given DAILY [facility] Rivaroxaban 10 mg 08/23/18 06:00 08/25/18 05:53 Xarelto PO 09/25/18 23:59 10 mg DAILY@0600 [facility] Administration Senna/Docusate Sodium 2 tablet 08/22/18 18:00 08/25/18 17:12 Senokot-S, Bertha-Colace PO Not Given BID [facility] Tamsulosin HCl 0.4 mg 08/22/18 17:30 08/25/18 17:13 Flomax PO 0.4 mg DAILY@1730 [facility] Administration Tuberculin PPD 5 tu 08/30/18 10:00 Tubersol, Aplisol, Ppd ID 08/30/18 10:01 X1 ONE Problem List (Last Updated 08/19/18 @ 15:49 by James Griffiths DO) Fall (Acute) BPH (benign prostatic hyperplasia) (Chronic) Chronic systolic heart failure (Chronic) Diabetes mellitus (Chronic) Gout (Chronic) Hairy cell leukemia (Chronic) Hypertension (Chronic) Alzheimer's disease (Chronic) Depression (Chronic) Vital Signs Temp Pulse Resp BP Pulse Ox 98.5 F 100 16 142/74 H 95 08/25/18 15:16 08/25/18 15:16 08/25/18 15:16 08/25/18 15:16 08/25/18 15:16 Oxygen Delivery Method Room Air Weight: 71.668 kg Body Mass Index (BMI) 28.8 Sodium 139 mmol/L (136-145) 08/23/18 06:18 Potassium 4.1 mmol/L (3.5-5.1) 08/23/18 06:18 Chloride 108 mmol/L (98-107) H 08/23/18 06:18 Carbon Dioxide 24.0 mmol/L (21.0-32.0) 08/23/18 06:18 Anion Gap 7 (5-15) 08/23/18 06:18 BUN 22 mg/dL (7-18) H 10/06/18 06:18 Creatinine 0.87 mg/dL (0.70-1.30) 08/23/18 06:18 Est GFR (MDRD) Af Amer 109 mL/min (>60) 08/23/18 06:18 Est GFR (MDRD) Non-Af 90 mL/min (>60) 08/23/18 06:18 BUN/Creatinine Ratio 25.2 RATIO (10-20) H 08/23/18 06:18 Glucose 97 mg/dL (74-106) 08/23/18 06:18 Assessment/Plan: Psychotropic Medications: Unnecessary Medications: Bowel Regimen: - Provider Comments Provider responsibility: Provider responsible to enter orders to implement recommendations Provider Comments to Recommendations by Pharmacy: Agree
--- NOTE | 2018-08-25 14:49 | PHA.CONS_ITS ---
<Rolando Schwartz D - Last Filed: 08/25/18 14:44> Progress Note - Pharmacy Subjective: TCU Admission Objective: Allergies No Known Allergies Allergy (Verified 08/19/18 19:28) Current Medications Generic Name Dose Route Start Last Admin Trade Name Freq PRN Reason Stop Dose Admin Acetaminophen 1,000 mg 08/22/18 14:00 08/25/18 05:53 Tylenol PO 1,000 mg Q8 [facility] Administration Allopurinol 300 mg 08/23/18 08:00 08/25/18 09:15 Zyloprim PO 300 mg DAILY@0800 [facility] Administration Atorvastatin Calcium 10 mg 08/22/18 22:00 08/24/18 20:14 Lipitor PO 10 mg QHS [facility] Administration Bisacodyl 10 mg 08/22/18 12:16 Dulcolax PO DAILY PRN Constipation Donepezil HCl 5 mg 08/22/18 22:00 08/24/18 20:15 Aricept PO 5 mg QHS [facility] Administration Ergocalciferol 50,000 unit 08/28/18 10:00 Vitamin D PO Q7D@1000 [facility] Meloxicam 7.5 mg 08/23/18 06:00 08/25/18 05:53 Mobic PO 7.5 mg DAILY [facility] Administration Metformin HCl 500 mg 08/22/18 17:00 08/25/18 09:15 Glucophage PO 500 mg BIDCM [facility] Administration Oxycodone HCl 5 mg 08/22/18 12:15 08/24/18 07:25 Oxyir PO 5 mg Q4H PRN PRN Administration Moderate Pain (pain scale 4-5) Paroxetine HCl 10 mg 08/23/18 06:00 08/25/18 05:53 Paxil PO 10 mg DAILY [facility] Administration Polyethylene Glycol 17 gm 08/23/18 06:00 08/25/18 05:54 Miralax PO Not Given DAILY [facility] Rivaroxaban 10 mg 08/23/18 06:00 08/25/18 05:53 Xarelto PO 09/25/18 23:59 10 mg DAILY@0600 [facility] Administration Senna/Docusate Sodium 2 tablet 08/22/18 18:00 08/25/18 05:54 Senokot-S, Bertha-Colace PO Not Given BID [facility] Tamsulosin HCl 0.4 mg 08/22/18 17:30 08/24/18 17:03 Flomax PO 0.4 mg DAILY@1730 [facility] Administration Tuberculin PPD 5 tu 08/30/18 10:00 Tubersol, Aplisol, Ppd ID 08/30/18 10:01 X1 ONE Problem List (Last Updated 08/19/18 @ 15:49 by James Griffiths DO) Fall (Acute) BPH (benign prostatic hyperplasia) (Chronic) Chronic systolic heart failure (Chronic) Diabetes mellitus (Chronic) Gout (Chronic) Hairy cell leukemia (Chronic) Hypertension (Chronic) Alzheimer's disease (Chronic) Depression (Chronic) Vital Signs Temp Pulse Resp BP Pulse Ox 97.8 F 70 18 159/68 H 96 08/24/18 15:46 08/25/18 10:00 08/24/18 15:46 08/24/18 15:46 08/25/18 10:00 Oxygen Delivery Method Room Air Weight: 71.668 kg Body Mass Index (BMI) 28.8 Sodium 139 mmol/L (136-145) 08/23/18 06:18 Potassium 4.1 mmol/L (3.5-5.1) 08/23/18 06:18 Chloride 108 mmol/L (98-107) H 08/23/18 06:18 Carbon Dioxide 24.0 mmol/L (21.0-32.0) 08/23/18 06:18 Anion Gap 7 (5-15) 08/23/18 06:18 BUN 22 mg/dL (7-18) H 08/23/18 06:18 Creatinine 0.87 mg/dL (0.70-1.30) 08/23/18 06:18 Est GFR (MDRD) Af Amer 109 mL/min (>60) 08/23/18 06:18 Est GFR (MDRD) Non-Af 90 mL/min (>60) 08/23/18 06:18 BUN/Creatinine Ratio 25.2 RATIO (10-20) H 08/23/18 06:18 Glucose 97 mg/dL (74-106) 08/23/18 06:18 Assessment/Plan: 1) Pain APAP, meloxicam, prn oxycodone. Continue to monitor prn medication use, daily pain scores. 2) CHF Sacubitril/valsartan. Continue to monitor swelling, renal function, electrolytes, BP/HR. 3) DM2 Metformin twice daily, atorvastatin. Continue to monitor renal function, BGT, lipids. 4) Gout Allopurinol daily. Continue to monitor gout sxs. 5) BPH Tamsulosin daily. Continue to monitor for sxs. 6) Alzheimer's Donepezil at HS. Continue to monitor clinically. 7) DVT PPx Rivaroxaban. Continue to monitor s/s bleeding/clot. Psychotropic Medications: 8) Depression Paroxetine daily. Continue to monitor s/s depression. Unnecessary Medications: None Bowel Regimen: 9) Senna/s, PEG, prn bisacodyl. Continue to monitor prn medication use, for constipation/diarrhea. Date of Note:: 08/25/18 - Provider Comments Provider responsibility: Provider responsible to enter orders to implement recommendations <Alexei De Jesus Chi - Last Filed: 08/25/18 17:39> Progress Note - Pharmacy Subjective: [] Objective: Allergies No Known Allergies Allergy (Verified 08/19/18 19:28) Current Medications Generic Name Dose Route Start Last Admin Trade Name Freq PRN Reason Stop Dose Admin Acetaminophen 1,000 mg 08/22/18 14:00 08/25/18 14:56 Tylenol PO 1,000 mg Q8 [facility] Administration Allopurinol 300 mg 08/23/18 08:00 08/25/18 09:15 Zyloprim PO 300 mg DAILY@0800 [facility] Administration Atorvastatin Calcium 10 mg 08/22/18 22:00 08/24/18 20:14 Lipitor PO 10 mg QHS [facility] Administration Bisacodyl 10 mg 08/22/18 12:16 Dulcolax PO DAILY PRN Constipation Donepezil HCl 5 mg 08/22/18 22:00 08/24/18 20:15 Aricept PO 5 mg QHS [facility] Administration Ergocalciferol 50,000 unit 08/28/18 10:00 Vitamin D PO Q7D@1000 [facility] Meloxicam 7.5 mg 08/23/18 06:00 08/25/18 05:53 Mobic PO 7.5 mg DAILY [facility] Administration Metformin HCl 500 mg 08/22/18 17:00 08/25/18 17:13 Glucophage PO 500 mg BIDCM [facility] Administration Oxycodone HCl 5 mg 08/22/18 12:15 08/24/18 07:25 Oxyir PO 5 mg Q4H PRN PRN Administration Moderate Pain (pain scale 4-5) Paroxetine HCl 10 mg 08/23/18 06:00 08/25/18 05:53 Paxil PO 10 mg DAILY [facility] Administration Polyethylene Glycol 17 gm 08/23/18 06:00 08/25/18 05:54 Miralax PO Not Given DAILY [facility] Rivaroxaban 10 mg 08/23/18 06:00 08/25/18 05:53 Xarelto PO 09/25/18 23:59 10 mg DAILY@0600 [facility] Administration Senna/Docusate Sodium 2 tablet 08/22/18 18:00 08/25/18 17:12 Senokot-S, Bertha-Colace PO Not Given BID [facility] Tamsulosin HCl 0.4 mg 08/22/18 17:30 08/25/18 17:13 Flomax PO 0.4 mg DAILY@1730 [facility] Administration Tuberculin PPD 5 tu 08/30/18 10:00 Tubersol, Aplisol, Ppd ID 08/30/18 10:01 X1 ONE Problem List (Last Updated 08/19/18 @ 15:49 by James Griffiths DO) Fall (Acute) BPH (benign prostatic hyperplasia) (Chronic) Chronic systolic heart failure (Chronic) Diabetes mellitus (Chronic) Gout (Chronic) Hairy cell leukemia (Chronic) Hypertension (Chronic) Alzheimer's disease (Chronic) Depression (Chronic) Vital Signs Temp Pulse Resp BP Pulse Ox 98.5 F 100 16 142/74 H 95 08/25/18 15:16 08/25/18 15:16 08/25/18 15:16 08/25/18 15:16 08/25/18 15:16 Oxygen Delivery Method Room Air Weight: 71.668 kg Body Mass Index (BMI) 28.8 Sodium 139 mmol/L (136-145) 08/23/18 06:18 Potassium 4.1 mmol/L (3.5-5.1) 08/23/18 06:18 Chloride 108 mmol/L (98-107) H 08/23/18 06:18 Carbon Dioxide 24.0 mmol/L (21.0-32.0) 08/23/18 06:18 Anion Gap 7 (5-15) 08/23/18 06:18 BUN 22 mg/dL (7-18) H 10/06/18 06:18 Creatinine 0.87 mg/dL (0.70-1.30) 08/23/18 06:18 Est GFR (MDRD) Af Amer 109 mL/min (>60) 08/23/18 06:18 Est GFR (MDRD) Non-Af 90 mL/min (>60) 08/23/18 06:18 BUN/Creatinine Ratio 25.2 RATIO (10-20) H 08/23/18 06:18 Glucose 97 mg/dL (74-106) 08/23/18 06:18 Assessment/Plan: Psychotropic Medications: Unnecessary Medications: Bowel Regimen: - Provider Comments Provider responsibility: Provider responsible to enter orders to implement recommendations Provider Comments to Recommendations by Pharmacy: Agree
[2018-08-25 15:16] VITALS: BP 142/74; PULSE 100; RESP 16; TEMP 36.9; O2SAT 95
[2018-08-25] MEDS: Tamsulosin HCl 0.4 MG Capsule PO (17:13)
[2018-08-25] MEDS: Atorvastatin Calcium 10 MG Tablet PO (21:00)
[2018-08-25] MEDS: Donepezil HCl 5 MG Tablet PO (21:00)
[2018-08-26] MEDS: Rivaroxaban 10 MG Tablet PO (04:55)
[2018-08-26] MEDS: Meloxicam 7.5 MG Tablet PO (04:56)
[2018-08-26] MEDS: SACUBITRIL/VALSARTAN 24/26 MG TABLET 1 EACH PO ×2 (04:56→17:28)
[2018-08-26] MEDS: PARoxetine 10 MG Tablet PO (04:56)
[2018-08-26] MEDS: Acetaminophen 500 MG Tablet 1000 MG PO ×3 (04:56→21:45)
[2018-08-26 07:01] LABS: Bedside Glucose 105 mg/dL (70-110)
[2018-08-26] MEDS: Allopurinol 300 MG Tablet PO (08:16)
[2018-08-26 14:30] VITALS: PULSE 80; RESP 16
[2018-08-26 16:00] VITALS: BP 136/73; PULSE 74; RESP 18; TEMP 36.7; O2SAT 96
--- NOTE | 2018-08-26 16:32 | CHAPLAIN ---
Type of Pastoral Visit ___ Initial Visit _x__ Follow-up Visit ___ On-call Visit ___ General Patient Visit ___ Spiritual Assessment ___ Family Conference ___ Bereavement ___ Rapid Response ___ Code Blue ___ Other (describe below) Pastoral Care Referral From _x__ Patient ___ Family ___ Nurse ___ Physician ___ Bathroom Tiling Professional ___ Cleaning Handyman ___ Other (describe below) Sacrament/Intervention _x__ Active listening ___ Anointing ___ Gnosticism ___ Bereavement ___ Communion ___ Alannah exploration ___ _x__ Life review ___ Prayer ___ Reconciliation ___ Sacrament of Sick ___ Supportive presence ___ Wedding ___ Other (describe below) Pastoral Comments patient indicated that he would like to receive communion but first to have opportunity to make confession with the fitness and wellness director; I notified [facility] with this request
[2018-08-26] MEDS: Tamsulosin HCl 0.4 MG Capsule PO (17:28)
[2018-08-26] MEDS: Atorvastatin Calcium 10 MG Tablet PO (21:46)
[2018-08-26] MEDS: Donepezil HCl 5 MG Tablet PO (21:46)
[2018-08-26] MEDS: oxyCODONE 5 MG Tablet PO (23:26)
[2018-08-27] MEDS: SACUBITRIL/VALSARTAN 24/26 MG TABLET 1 EACH PO ×2 (06:08→16:48)
[2018-08-27] MEDS: Rivaroxaban 10 MG Tablet PO (06:08)
[2018-08-27] MEDS: PARoxetine 10 MG Tablet PO (06:09)
[2018-08-27] MEDS: Acetaminophen 500 MG Tablet 1000 MG PO ×3 (06:09→21:34)
[2018-08-27] MEDS: Meloxicam 7.5 MG Tablet PO (06:10)
[2018-08-27 06:55] LABS: Bedside Glucose 96 mg/dL (70-110)
[2018-08-27] MEDS: Allopurinol 300 MG Tablet PO (08:30)
--- NOTE | 2018-08-27 09:02 | CASEMGMT ---
Plan of care meeting held. Resident present as well as resident spouse. No discharge date set at this time. Resident with an insurance update due on 08/28/18. Resident and resident family aware that continued stay approval is not guaranteed. Resident plans to discharge to home with spouse. Resident to continue with further care and treatment on the Transitional Care Unit. Support given. Will continue to follow. Paty PHELAN, UTILITY PORTER
--- NOTE | 2018-08-27 15:28 | CHAPLAIN ---
Type of Pastoral Visit ___ Initial Visit _x__ Follow-up Visit ___ On-call Visit ___ General Patient Visit ___ Spiritual Assessment ___ Family Conference ___ Bereavement ___ Rapid Response ___ Code Blue ___ Other (describe below) Pastoral Care Referral From _x__ Patient ___ Family ___ Nurse ___ Physician ___ Dietary Director ___ Dedicated Intermodal Truck Driver ___ Other (describe below) Sacrament/Intervention ___ Active listening ___ Anointing ___ Congregation ___ Bereavement ___ Communion _x__ Alannah exploration ___ ___ Life review ___ Prayer ___ Reconciliation ___ Sacrament of Sick _x__ Supportive presence ___ Wedding ___ Other (describe below) Pastoral Comments returned today to speak with patient about his questions for communion and confession; this steam and gas turbine assembler made contact with [facility] for him and gave him the response I received; pt is satisfied with answer; pt would like added to the Shinto list for communion; made call to registration to ask for this inclusion of pt name
[2018-08-27 16:00] VITALS: BP 130/55; PULSE 67; RESP 18; TEMP 36.7; O2SAT 95
--- NOTE | 2018-08-27 16:10 | CASEMGMT ---
Brief interview for mental status (BIMS) and resident mood interview (PHQ-9) completed on this day. BIMS score 13/15. PHQ-9 score
[2018-08-27] MEDS: Tamsulosin HCl 0.4 MG Capsule PO (16:48)
[2018-08-27] MEDS: oxyCODONE 5 MG Tablet PO (21:34)
[2018-08-27] MEDS: Atorvastatin Calcium 10 MG Tablet PO (21:35)
[2018-08-27] MEDS: Donepezil HCl 5 MG Tablet PO (21:35)
[2018-08-28] MEDS: Rivaroxaban 10 MG Tablet PO (05:49)
[2018-08-28] MEDS: PARoxetine 10 MG Tablet PO (05:49)
[2018-08-28] MEDS: Acetaminophen 500 MG Tablet 1000 MG PO ×2 (05:49→13:51)
[2018-08-28] MEDS: Meloxicam 7.5 MG Tablet PO (05:49)
[2018-08-28] MEDS: SACUBITRIL/VALSARTAN 24/26 MG TABLET 1 EACH PO (05:49)
[2018-08-28 07:11] LABS: Bedside Glucose 104 mg/dL (70-110)
[2018-08-28] MEDS: oxyCODONE 5 MG Tablet PO (08:59)
[2018-08-28] MEDS: Allopurinol 300 MG Tablet PO (09:00)
--- NOTE | 2018-08-28 10:57 | CASEMGMT ---
Social Work Spoke with resident in room. Resident requesting for discharge date to be set for 08/28/18. Resident reporting to have had an anxiety attack last night and that last time this happened the anxiety attack's got worse as resident stayed in a facility. This social media analyst inquiring about possible other options other then resident discharging to home such as a bigger room or walking the halls in the evening. Resident declining to continue with stay any longer. Spoke with staff/therapy, 08/28/18 is an agreeable date. Resident is agreeable to home health services for physical and occupational therapy as well as penitentiary. Resident is requesting for home health services to be set up through [facility] ([facility] Resident reporting to have all needed durable medical equipment needs already set up within the home. Resident declining for this social media analyst to contact resident family in regards to discharge date/plan. Resident planning to contact resident spouse on own. Resident reporting that resident spouse will be able to provide transportation home for resident at time of discharge. Support given[facility] This social media analyst making referral for physical and occupational therapy along with penitentiary. Order to be completed. Proposed discharge date: 08/28/18 PLAN: Discharge to home with spouse and home health services. Paty PHELAN, ACCOUNTS RECEIVABLE ASSOCIATE
--- NOTE | 2018-08-28 12:07 | DCINST_ITS ---
- Discharge Diagnoses Current Active Problems: Current Active and Chronic Problems (Last Updated 08/19/18 @ 15:49 by James Griffiths DO) Fall (Acute) BPH (benign prostatic hyperplasia) (Chronic) Chronic systolic heart failure (Chronic) Diabetes mellitus (Chronic) Gout (Chronic) Hairy cell leukemia (Chronic) Hypertension (Chronic) Alzheimer's disease (Chronic) Depression (Chronic) You will use the following diet at home:: No restrictions, Regular Your food should be the consistency of: Regular Your liquids should be the consistency of: Regular/Thin Discharge Activity: Return to Normal Activity, May Shower, Use Walker Weight Bearing Status: Weight bearing as tolerated Call your doctor if you observe: Inability to have a bowel movement, Shortness of breath, Chest pain, Uncontrolled pain Allergies/Adverse Reactions: Allergies No Known Allergies Allergy (Verified 08/19/18 19:28) Medications to take at Discharge Atorvastatin Calcium [Lipitor] 10 mg PO QHS 11/20/15 Doxazosin Mesylate [Cardura] 1 mg PO QHS 11/20/15 Metformin HCl [Glucophage] 500 mg PO BIDCM 11/20/15 Donepezil HCl [Aricept] 5 mg PO QHS 11/28/17 Meloxicam 7.5 mg PO DAILY 11/28/17 Paroxetine [Paxil] 10 mg PO DAILY 11/28/17 Allopurinol [Zyloprim] 300 mg PO DAILY 04/30/18 Acetaminophen [Tylenol] 1,000 mg PO Q8 08/22/18 Ergocalciferol [Vitamin D] 50,000 unit PO Q7D@1000 08/22/18 Oxycodone [Oxyir] 5 mg PO Q4H PRN PRN 7 Days #30 tab 08/28/18 Polyethylene Glycol 3350 [Miralax] 17 gm PO DAILY #30 packet 08/28/18 Rivaroxaban [Xarelto] 10 mg PO DAILY@0600 #30 tablet 08/28/18 Sacubitril/Valsartan 24/26 mg [Entresto 24 mg-26 mg Tablet] 1 each PO BID #60 tablet 08/28/18 The following prescriptions were given: Oxycodone [Oxyir] 5 mg PO Q4H PRN PRN 7 Days #30 tab PRN Reason: Moderate Pain (pain scale 4-5) Polyethylene Glycol 3350 [Miralax] 17 gm PO DAILY #30 packet Rivaroxaban [Xarelto] 10 mg PO DAILY@0600 #30 tablet Sacubitril/Valsartan 24/26 mg [Entresto 24 mg-26 mg Tablet] 1 each PO BID #60 tablet Primary Care Physician: Wilfred Vázquez III, MD [Primary Care Provider] - Please follow up with your Primary Care Physician in: 1 week. Test Results: Test results from this visit will be discussed in further detail at your follow- up appointment, if applicable. Please Follow Up With: Dr. Parker When: 1-2 weeks Please Follow Up With: Dr. Wilfred Vázquez III When: 1 week after discharge Proposed Discharge Date: 08/28/18
--- NOTE | 2018-08-28 12:08 | PCM.DC.SUM ---
Discharge Date and Diagnosis - Problem List Patient Problems: Active and Suspected Problems (Last Updated 08/19/18 @ 15:49 by James Griffiths DO) Fall (Acute) Date of Admission: 08/22/18 Date of Discharge: 08/28/18 - Primary Discharge Diagnosis Active and Suspected Problems (Last Updated 08/19/18 @ 15:49 by James Griffiths DO) Fall (Acute) - Secondary Discharge Diagnosis Chronic Problems (Last Updated 08/19/18 @ 15:49 by James Griffiths DO) BPH (Chronic) Chronic systolic congestive heart failur (Chronic) Ejection fraction 35% in 2013, following with Dr. Oliva Status post cardiac catheterization 2004, without obstructive coronary artery disease Diabetes mellitus type II (Chronic) Gout (Chronic) History of remote hairy cell leukemia (Chronic) Was following with Dr. Zamorano, in remission Follow up with Dr. Mercado after discharge. Hypertension (Chronic) Hyperlipidemia (Chronic) BPH (benign prostatic hyperplasia) (Chronic) Chronic systolic heart failure (Chronic) Diabetes mellitus (Chronic) Gout (Chronic) Hairy cell leukemia (Chronic) Hypertension (Chronic) Alzheimer's disease (Chronic) Depression (Chronic) Hospital Course and Treatment Imaging Results: 08/22/18 12:24 Diet: Carbohydrate Controlled Labs (Last 48 Hours) 08/27/18 08/28/18 06:18 06:40 POC Glucose 96 104 Operations: None, - - 08/20/18 w/ Dr. Parker, s/p cemented hemiarthroplasty right hip. Procedures: None Summary of Care Provided: The patient is a 78 year old Male with below past medical history hospitalized for right hip fracture, underwent right hip cemented hemiarthroplasty 08/20/[address] Parker, admitted to TCU with debility, here for rehabilitation, strengthening, prior to discharge home with spouse. On Xarelto for DVT prophylaxis. On Entresto for systolic heart failure, consider titrating to maximum dose of 97/103 BID. Discharge home with spouse, and Home Health Services. Patient Problems: Active and Suspected Problems (Last Updated 08/19/18 @ 15:49 by James Griffiths DO) Fall (Acute) - Physical Exam Vital Signs Temp Pulse Resp BP Pulse Ox 98.1 F 67 18 130/55 H 95 08/27/18 16:00 08/27/18 16:00 08/27/18 16:00 08/27/18 16:00 08/27/18 16:00 Oxygen Delivery Method Room Air Weight: 71.356 kg Body Mass Index (BMI) 28.8 Intake and Output for Last 24 Hours 08/26/18 08/27/18 08/28/18 23:59 23:59 23:59 Intake Total 540 / 540 600 / 600 360 / 360 Balance 540 / 540 600 / 600 360 / 360 POC Glucose 08/28/18 06:40 POC Glucose 104 Discharge Diet: No Restrictions Discharge Activity: Return to Normal Activity, May Shower, Use Walker Weight Bearing Status: Weight bearing as tolerated Call your doctor if you observe: Inability to have a bowel movement, Shortness of breath, Chest pain, Uncontrolled pain Home Medications: Medications to take at Discharge Atorvastatin Calcium [Lipitor] 10 mg PO QHS 11/20/15 Doxazosin Mesylate [Cardura] 1 mg PO QHS 11/20/15 Metformin HCl [Glucophage] 500 mg PO BIDCM 11/20/15 Donepezil HCl [Aricept] 5 mg PO QHS 11/28/17 Meloxicam 7.5 mg PO DAILY 11/28/17 Paroxetine [Paxil] 10 mg PO DAILY 11/28/17 Allopurinol [Zyloprim] 300 mg PO DAILY 04/30/18 Acetaminophen [Tylenol] 1,000 mg PO Q8 08/22/18 Ergocalciferol [Vitamin D] 50,000 unit PO Q7D@1000 08/22/18 Oxycodone [Oxyir] 5 mg PO Q4H PRN PRN 7 Days #30 tab 08/28/18 Polyethylene Glycol 3350 [Miralax] 17 gm PO DAILY #30 packet 08/28/18 Rivaroxaban [Xarelto] 10 mg PO DAILY@0600 #30 tablet 08/28/18 Sacubitril/Valsartan 24/26 mg [Entresto 24 mg-26 mg Tablet] 1 each PO BID #60 tablet 08/28/18 Following Prescrptions Were Given to Patient: Oxycodone [Oxyir] 5 mg PO Q4H PRN PRN 7 Days #30 tab PRN Reason: Moderate Pain (pain scale 4-5) Polyethylene Glycol 3350 [Miralax] 17 gm PO DAILY #30 packet Rivaroxaban [Xarelto] 10 mg PO DAILY@0600 #30 tablet Sacubitril/Valsartan 24/26 mg [Entresto 24 mg-26 mg Tablet] 1 each PO BID #60 tablet Primary Care Physician: Wilfred Vázquez III, MD [Primary Care Provider] - Please follow up with your Primary Care Physician in: 1 week. Please Follow Up With: Dr. Parker When: 1-2 weeks Please Follow Up With: Dr. Wilfred Vázquez III When: 1 week after discharge Disposition: Home with Home Health Minutes spent on discharge:: 35 Patient Condition:: Stable Medical Necessity - Tobacco Use Smoking Status: Former smoker Tobacco Use: Non-smoker Meaningful Use Info Meaningful Use Diagnoses (Choose all that apply): None applicable
--- NOTE | 2018-08-28 12:10 | PCM.PN.HH ---
Home Health Note - Plan Overview of reason of hospitalization: The patient is a 78 year old Male with below past medical history hospitalized for right hip fracture, underwent right hip cemented hemiarthroplasty 08/20/[address] Parker, admitted to TCU with debility, here for rehabilitation, strengthening, prior to discharge home with spouse. On Xarelto for DVT prophylaxis. On Entresto for systolic heart failure, consider titrating to maximum dose of 97/103 BID. Discharge home with spouse, and Home Health Services. Problems: Patient was seen for (Last Updated 08/19/18 @ 15:49 by James Griffiths DO) Fall (Acute) BPH (benign prostatic hyperplasia) (Chronic) Chronic systolic heart failure (Chronic) Diabetes mellitus (Chronic) Gout (Chronic) Hairy cell leukemia (Chronic) Hypertension (Chronic) Alzheimer's disease (Chronic) Depression (Chronic) Complete List of Medical Problems (Last Updated 08/19/18 @ 15:49 by James Griffiths DO) BPH (Chronic) Chronic systolic congestive heart failur (Chronic) Diabetes mellitus type II (Chronic) Gout (Chronic) History of remote hairy cell leukemia (Chronic) Hypertension (Chronic) Hyperlipidemia (Chronic) Closed right hip fracture (Acute) Vitamin D deficiency (Acute) Fall (Acute) BPH (benign prostatic hyperplasia) (Chronic) Chronic systolic heart failure (Chronic) Diabetes mellitus (Chronic) Gout (Chronic) Hairy cell leukemia (Chronic) Hypertension (Chronic) Alzheimer's disease (Chronic) Depression (Chronic) - Requirements and Reasons Disciplines Needed/Ordered: Senior Care, Physical Therapy Reason for Disciplines: Disease Specific Monitoring/education, Medication Management/Knowledge Deficit, Wound Care, Gait Training, Stair Training, Fall Prevention, Home Safety/Equipment Instruction, Balance and/or Posture Training, Transfer Training Related To: Limited/Poor Endurance, Shortness of Breath with Activity, Physical Impairments, Unsteady Gait/Balance, Intractable Pain, Fall Risk Patient is unable to leave the home: Without Aid of Supportive Devices (crutches, cane, wheelchair, walker), Without the assistance of another person - Additional Disciplines Additional Disciplines Needed/Ordered: Occupational Therapy
--- NOTE | 2018-08-28 12:58 | CASEMGMT ---
Social Work Resident reporting to now need a front wheel wheeled walker at time of discharge as resident thought to have had one at home but to not have one. Resident reporting to not have a preference of [employer], [employer] to be utilized. Support given. Telephone call to Alannah Kearns. Alannah reporting to be able to deliver walker to resident room prior to resident discharge. Order faxed. Proposed discharge date: 08/28/18 PLAN: Discharge to home with spouse and home health services. Paty PHELAN, LITHOGRAPHIC ETCHER
[2018-08-28 14:59] VITALS: BP 112/54; PULSE 54; RESP 16; TEMP 36.4; O2SAT 97
--- NOTE | 2018-08-28 17:50 | CASEMGMT ---
Insurance Notified insurance of resident discharge on 08/28/18 to home with spouse and home health services. Auth#[id number] Paty PHELAN, SUGAR CONTROLLER
--- NOTE | 2018-09-04 10:13 | MDS.RN ---
Information for the mds was obtained from review of the clinical record, interview of resident, staff, and direct observation of resident's care.
== END 2018-08-28 15:00 | disposition home health service (06) | DRG 560 ==
PROVIDERS: Admitting Provider Family Medicine Geriatric Medicine; Family Provider Family Medicine; PCP Family Medicine; Referring Provider Family Medicine Geriatric Medicine; Visit Provider Family Medicine Geriatric Medicine
DX: S72.001D Fracture of unspecified part of neck of right femur, subsequent encounter for closed fracture with routine healing (principal); I50.22 Chronic systolic (congestive) heart failure; C91.41 Hairy cell leukemia, in remission; W19.XXXD Unspecified fall, subsequent encounter; Z96.641 Presence of right artificial hip joint; M10.9 Gout, unspecified; G30.9 Alzheimer's disease, unspecified; F02.80 Dementia in other diseases classified elsewhere, unspecified severity, without behavioral disturbance, psychotic disturbance, mood disturbance, and anxiety; N40.0 Benign prostatic hyperplasia without lower urinary tract symptoms; E78.5 Hyperlipidemia, unspecified; I11.0 Hypertensive heart disease with heart failure; F32.9 Major depressive disorder, single episode, unspecified; E11.9 Type 2 diabetes mellitus without complications; Z87.891 Personal history of nicotine dependence; M19.90 Unspecified osteoarthritis, unspecified site; E55.9 Vitamin D deficiency, unspecified; Z23 Encounter for immunization
CPT/HCPCS: 36415; 80048; 82962; 85025; 97110; 97116; 97163; 97166; 97530; 97535; 97802; 90686

== ENCOUNTER 2021-05-26 03:12 | Emergency (ER) | payer MEDICARE, SELFPAY ==
[2021-05-16 14:20] VITALS: BMI 26.1
[2021-05-26 03:15] VITALS: BP 170/79; PULSE 88; RESP 16; TEMP 37.2; O2SAT 95; BMI 25.4
--- NOTE | 2021-05-26 03:35 | RAD_ITS ---
STUDY: X-RAY CHEST REASON FOR EXAM: Male, 81 years old. mental status change TECHNIQUE: Single AP portable view of the chest. COMPARISON: None. FINDINGS: The lungs are underexpanded. There is no demonstrated pleural abnormality. Normal size heart. Normal mediastinum and cuca. Normal visualized pulmonary arteries. There is atherosclerotic tortuosity of the aortic arch and descending thoracic aorta. There are diffuse degenerative changes of the visualized thoracic spine. Normal visualized ribs, clavicles, and shoulders. There is no demonstrated abnormality of the visualized soft tissue structures of the upper abdomen. RAD/Chest 1 View (Portable) IMPRESSION: No acute injury of the chest. There is no evidence of pneumonia or neoplasm. Electronically Signed: Hemant Varela MD at 5:03 EDT Tel , Service support ,
--- NOTE | 2021-05-26 03:35 | CT_ITS ---
STUDY: CT BRAIN WITHOUT CONTRAST REASON FOR EXAM: Male, 81 years old. fall, confusion RADIATION DOSAGE (If Supplied By Facility): CTDIvol = ( 44.99 ) mGy, DLP = ( 846.73 ) mGycm TECHNIQUE: Transaxial CT imaging of the brain was performed without administration of intravenous contrast material. Individualized dose optimization techniques were used for this CT. COMPARISON: No relevant priors. FINDINGS: Normal soft tissue structures. Normal calvarium. There is moderate cerebral atrophy with widening of the extra-axial spaces and ventricular dilatation. There are areas of decreased attenuation within the white matter tracts of the supratentorial brain, consistent with microvascular disease changes. Normal basal ganglia and thalami. Normal brainstem. There is mild cerebellar atrophy. There is no intracranial hemorrhage. There are no findings of an acute ischemic infarction. Normal visualized paranasal sinuses. CT/Brain/Head without Contrast IMPRESSION: Chronic involutional changes of the brain. Electronically Signed: Hemant Varela MD at 5:04 EDT Tel , Service support ,
--- NOTE | 2021-05-26 03:39 | EX.ED.DYSGE1 ---
HPI History of Present Illness Chief Complaint: Confusion Informant: patient and spouse/S.O. Onset/Context/Timing Onset: Today (see below) Current Severity: Moderate Maximum Severity: Moderate Associated Symptoms Associated Symptoms: confusion, gen weakness Narrative Narrative: Patient has a baseline of some confusion, has had a shuffling gait for the past week or so, he has been monitored with hairy cell leukemia without current treatment, and no recent illness, he has urinary frequency and nocturia chronically, possibly related to his BPH, tonight he got up a couple hours ago and started shaving. This was around 2 in the morning, he was clearly confused according to his . She got back to bed and then woke up a short time later to him falling in the living room. Patient states that he had a light on and simply lost his balance, describing the shuffling gait that his did before. No known history of Parkinson's, she states he has had a mild tremor off and on recently but nothing consistent. No recent known illness. tried to get him up on his feet but he was unable to get himself up from lying on the floor and she was unable to lift him up. When EMS came to assist, they were able to get him to stand but not on his own as he was too weak. Initially while lying on his back at home he had complained that his back was sore, right now he denies any pain or apparent injury. EMS checked his blood sugar, 130. [facility] Medical History Anxiety Benign prostate hyperplasia Cardiomyopathy Degenerative disc disease, cervical DM2 (diabetes mellitus, type 2) Encephalopathy Gout Hairy cell leukemia Heart failure with reduced ejection fraction HTN (hypertension) Left bundle branch block Mild cognitive impairment with memory loss Home Medications atorvastatin 10 mg PO QHS 11/20/15 [History Last Taken 08/18/18] doxazosin 1 mg PO QHS 11/20/15 [History Last Taken 08/18/18] metformin 500 mg PO BIDCM 11/20/15 [History Last Taken 08/19/18] donepezil 10 mg PO QHS 11/28/17 [History Last Taken 08/18/18] meloxicam 7.5 mg PO DAILY 11/28/17 [History Last Taken 08/19/18] paroxetine HCl 10 mg PO DAILY 11/28/17 [History Last Taken 08/19/18] allopurinol [Zyloprim] 300 mg PO DAILY 04/30/18 [History Last Taken 08/19/18] acetaminophen 1,000 mg PO Q8 08/22/18 [History Last Taken 08/22/18 05:30] polyethylene glycol 3350 17 g PO DAILY #30 packet 08/28/18 [Rx Last Taken Unknown] losartan 25 mg PO DAILY 05/26/21 [History Last Taken Unknown] memantine 5 mg PO BID 05/26/21 [History Last Taken Unknown] tamsulosin 0.4 mg PO DAILY 05/26/21 [History Last Taken Unknown] Allergy/AdvReac Type Severity Reaction Status Date / Time gabapentin Allergy Other Verified 05/26/21 03:15 metoprolol [From Toprol XL] Allergy PT UNSURE Verified 05/26/21 03:15 OF REACTION ramipril [From Altace] Allergy PT UNSURE Verified 05/26/21 03:15 OF REACTION Surgical History H/O total hip arthroplasty Social History Smoking Status: Former smoker ROS ROS ED Constitutional Constitutional ED: Reports weakness; Denies chills or fever(s) Eyes Eyes: Denies change in vision or diplopia ENT ENT ED: Denies rhinorrhea or sore throat Cardiovascular Cardiovascular: Reports edema; Denies chest pain or palpitations Respiratory/Chest Respiratory/Chest: Denies cough or dyspnea Gastrointestinal Gastrointestinal: Denies abdominal pain, diarrhea, nausea or vomiting Genitourinary Genitourinary ED: Denies dysuria or hematuria Musculoskeletal Musculoskeletal: Reports other Details: Chronic discomfort right knee, no worse per patient. No other extremity or joint pain at this time. ; Denies back pain or neck pain Integumentary Denies abscess or rash Neurologic Neurologic: Reports as per HPI, behavior changes and confusion; Denies headache(s), paresthesias or weakness Psychiatric Psychiatric: Denies anxiety or suicidal thoughts EXAM Physical Exam Const Vital Signs: 05/26/21 03:15 Temperature 99 F Temperature Source Oral Pulse Rate 88 Respiratory Rate 16 Blood Pressure 170/79 H Blood Pressure Mean 109 Pulse Ox 95 Oxygen Delivery Method Room Air Positive well nourished and well developed General Appearance ED: well developed and NAD HEENT Reports moist mucous membranes normocephalic and atraumatic Eyes PERRL and EOMs intact bilaterally Neck full ROM and supple Resp normal respiratory effort and clear to auscultation bilaterally Cardio regular rate, regular rhythm and no murmurs GI non-tender and non-distended Auscultation: normoactive bowel sounds Palpation: soft Back/Spine no CVA tenderness, normal ROM, normal to inspection and thoraco-lumbar ROM normal Back/Spine Narrative: Nontender throughout spine, back, and rib cage including with lateral compression Extremity normal to inspection General Extremety ED: Yes edema; Negative for pulses abnormal or tenderness General Extremity: edema bilateral lower extremity Details: mild (and symmetric); Negative for pulses abnormal Neuro CN's II-XII intact bilaterally and no sensory deficits noted Sensorium / Orientation: awake, alert, oriented to person and oriented to place; Negative for oriented to time Motor Exam: strength 5/5 throughout Psych mental status grossly normal, thought process normal, cooperative and affect normal Skin no rashes or lesions noted and no wounds MDM MDM MDM Narrative Medical decision making narrative: Other than mild renal insufficiency and proteinuria, patient's work-up is negative. He does not have any apparent injury. CT head shows nothing acute, no signs of any infection. He is not anemic. Nurses were able to walk him to and from the bathroom, he did not have any pain or major issues but he did have a fairly shuffling gait that certainly could put him at risk for falling again. I discussed this with him and his and they are in agreement, and they do have access to a walker at home that they will start using for him all of the time until he is able to follow-up. He does not appear to have a resting tremor at this time to suggest that this is obviously Parkinson's disease. understands that he does have dementia, this could be just a sign of it progressing. We discussed reasons to return. Lab Data Attestation: I reviewed the patient's lab results. Labs: Laboratory Results - last 24 hr 05/26/21 05/26/21 05/26/21 03:30 03:30 04:10 WBC 10.2 RBC 4.42 L Hgb 13.7 Hct 41.7 MCV 94.3 H MCH 31.0 MCHC 32.9 RDW Std Deviation 56.2 H RDW Coeff of Eduarda 16.2 H Plt Count 234 MPV 11.5 Immature Gran % (Auto) 0.300 Neut % (Auto) 86.7 H Lymph % (Auto) 9.9 L [place] % (Auto) 2.9 Eos % (Auto) 0.0 Baso % (Auto) 0.2 Absolute Neuts (auto) 8.8 H Absolute Lymphs (auto) 1.01 Nucleated RBC % 0.2 Sodium 138 Potassium 4.6 Chloride 106 Carbon Dioxide 26.0 Anion Gap 6 BUN 19 H Creatinine 1.31 H Estim Creat Clear Calc 42.75 Est GFR (MDRD) Af Amer 68 Est GFR (MDRD) Non-Af 56 L BUN/Creatinine Ratio 14.5 Glucose 124 H Calcium 9.2 Troponin I High Sens 26.7 Urine Color Yellow Urine Clarity Clear Urine pH 7.0 Ur Specific [place] 1.010 Urine Protein 500 H Urine Glucose (UA) Normal Urine Ketones Negative Urine Occult Blood 50 H Urine Nitrite Negative Urine Bilirubin Negative Urine Urobilinogen Normal Ur Leukocyte Esterase 25 H Urine RBC 0-5 SEEN Urine WBC 0-5 SEEN Ur Squamous Epith Cells 0 SEEN Urine Bacteria 1+ Hyaline Casts 0-5 SEEN Urine Mucus 0 SEEN Radiography Chest X-Ray - ED: 1 View, Read by ED Physician and No Acute Disease Diagnostic Testing: Radiology Impression Brain CT 05/26/21 03:35 IMPRESSION: Chronic involutional changes of the brain. Electronically Signed: Hemant Varela MD at 5:04 EDT Tel , Service support , Chest X-Ray 05/26/21 03:35 IMPRESSION: No acute injury of the chest. There is no evidence of pneumonia or neoplasm. Electronically Signed: Hemant Varela MD at 5:03 EDT Tel , Service support , Discharge Plan Triage Chief Complaint: Confusion ED Provider: Luke Terry Dx/Rx/DC Orders Clinical Impression: Chronic confusion, Mild renal insufficiency, Shuffling gait, Accidental fall Instructions: Fitting Your Walker, Preventing Falls Moving Safely ..., ED Renal Insufficiency Prescriptions: No Action metformin 500 MG tablet 500 mg PO BIDCM RF: 0 atorvastatin 10 MG tablet 10 mg PO QHS RF: 0 doxazosin 1 MG tablet 1 mg PO QHS RF: 0 allopurinol [Zyloprim] 300 MG tablet 300 mg PO DAILY RF: 0 paroxetine HCl 10 MG tablet 10 mg PO DAILY RF: 0 donepezil 5 MG tablet 10 mg PO QHS RF: 0 meloxicam 7.5 MG tablet 7.5 mg PO DAILY RF: 0 acetaminophen 500 MG tablet 1,000 mg PO Q8 RF: 0 polyethylene glycol 3350 17 GM packet 17 g PO DAILY Qty: 30 RF: 0 tamsulosin 0.4 mg capsule 0.4 mg PO DAILY RF: 0 losartan 25 mg tablet 25 mg PO DAILY RF: 0 memantine 5 mg tablet 5 mg PO BID RF: 0 Primary Care Provider: Wilfred Vázquez III Referrals: Wilfred Vázquez III, MD [Primary Care Provider] - 3-5 Days Disposition Disposition: Home, Self Care
[2021-05-26 03:49] LABS: Absolute Lymphocyte Count 1.01 X10^3/uL (0.83-4.51); Absolute Neutrophil Count 8.8 X10^3/uL (2.0-7.7); Basophil# 0.02 X10^3/uL; Basophil% 0.2 % (0-1); Hematocrit 41.7 % (40-54); Hemoglobin 13.7 g/dL (13.0-16.5); Lymphocyte # 1.01 X10^3/ul (0.83-4.51); Lymphocyte % 9.9 % (19-41); Mean Corp Hgb Conc 32.9 g/dL (32-36); Mean Corpuscular Volume 94.3 fL (80-94); Mean Platelet Vol. 11.5 fl (6.2-12.0); Monocyte% 2.9 % (0-10); NRBC Flagged by Analyzer 0.2 % (0-5); Neutrophil # 8.81 X10^3/uL (2.7-7.7); Neutrophil % 86.7 % (47-70); Platelet Count 234 K/mm3 (150-450); RBC Distribution Width CV 16.2 % (11.6-14.6); RBC Distribution Width SD 56.2 fl (35.1-43.9); Red Blood Count 4.42 M/mm3 (4.6-6.2); White Blood Count 10.2 K/mm3 (4.4-11.0)
[2021-05-26 04:06] LABS: Anion Gap 6 (5-15); BUN 19 mg/dL (7-18); BUN/Creat Ratio 14.5 RATIO (10-20); Calcium,Total 9.2 mg/dL (8.5-10.1); Chloride 106 mmol/L (98-107); Creatinine, Serum 1.31 mg/dL (0.70-1.30); EST Glomerular Filtration Rate 56 mL/min (>60); Est Glom Filt Rate - Afr Amer 68 mL/min (>60); Estimated Creatinine Clearance 42.75 ml/min; Glucose 124 mg/dL (74-106); Potassium 4.6 mmol/L (3.5-5.1); Sodium Level 138 mmol/L (136-145); Troponin-I HS 26.7 pg/mL (3.0-78.5)
[2021-05-26 04:15] LABS: Mucous, Urine 0 SEEN /hpf (<or=2+); Squamous Epithelial Cells - UA 0 SEEN /hpf (0-5)
[2021-05-26 04:16] LABS: Color, Urine Yellow (Yellow); Glucose, Dipstick Normal (Normal); Ketone-Dipstick Negative (Negative); Leukocyte Esterase-Dipstick 25 /ul (Negative); Nitrite-Dipstick Negative (Negative); Occult Blood-Urine 50 /ul (Negative); Protein-Dipstick 500 mg/dl (Negative); Urine Bilirubin Dipstick Negative (Negative); Urine Clarity Clear (Clear); Urine Urobilinogen Normal (Normal)
[2021-05-26 04:30] LABS: Bacteria 1+ /hpf (None Seen); Hyaline Cast 0-5 SEEN /lpf (0-5); Red Blood Cells-Urine 0-5 SEEN /hpf (0-5); White Blood Cells 0-5 SEEN /hpf (0-5)
[2021-05-26 05:38] VITALS: PULSE 98; RESP 16
== END 2021-05-26 05:39 | disposition home or self-care (01) ==
PROVIDERS: Emergency Provider Emergency Medicine; PCP Family Medicine
DX: R41.0 Disorientation, unspecified (principal); N28.9 Disorder of kidney and ureter, unspecified; R26.89 Other abnormalities of gait and mobility; E11.9 Type 2 diabetes mellitus without complications; I50.9 Heart failure, unspecified; Z87.891 Personal history of nicotine dependence; Z79.899 Other long term (current) drug therapy; Z79.84 Long term (current) use of oral hypoglycemic drugs
CPT/HCPCS: 70450; 71045; 80048; 81001; 84484; 85025; 99285; A4216

== ENCOUNTER 2021-05-27 21:16 | Inpatient (IN) | payer MEDICARE, SELFPAY ==
[2021-05-26 03:15] VITALS: BMI 25.4
[2021-05-27 21:17] VITALS: BP 121/65; PULSE 65; RESP 16; TEMP 37.5; O2SAT 91; BMI 24.5
[2021-05-27 21:44] VITALS: BP 129/87; PULSE 65; RESP 23; TEMP 37.2; O2SAT 91
--- NOTE | 2021-05-27 22:10 | EKG12_ITS ---
Test Reason : FEVER Blood Pressure : / mmHG Vent. Rate : 066 BPM Atrial Rate : 066 BPM P-R Int : 168 ms QRS Dur : 132 ms QT Int : 422 ms P-R-T Axes : 024 -14 176 degrees QTc Int : 442 ms Normal sinus rhythm Left bundle branch block Abnormal ECG Confirmed by RADHA MALCOLM, GABBY ([id number]), editorial project manager ELGIN ROJO ([id number]) on 05/31/2021 9:13:59 AM Referred By: SHEEBA Confirmed By:GABBY GARCIA MD
--- NOTE | 2021-05-27 22:11 | EDS_ITS ---
HPI History of Present Illness Chief Complaint: Fever Narrative Narrative: fevers,Patient presents with walks without weakness, apparently he normally a walker and can drive himself around today he can barely get out of his bed, he has had 5 or 6 episodes of loose stools. He has no cough or congestion. He has no abdominal pain. He has no dysuria or frequency. He denies any neck pain or stiffness. He is weak with not confused. His highest temperature at home was 101 Fahrenheit. [facility] Medical History Anxiety Benign prostate hyperplasia Cardiomyopathy Degenerative disc disease, cervical DM2 (diabetes mellitus, type 2) Encephalopathy Gout Hairy cell leukemia Heart failure with reduced ejection fraction HTN (hypertension) Left bundle branch block Mild cognitive impairment with memory loss Home Medications atorvastatin 10 mg PO QHS 11/20/15 [History Last Taken 08/18/18] doxazosin 1 mg PO QHS 11/20/15 [History Last Taken 08/18/18] metformin 500 mg PO BIDCM 11/20/15 [History Last Taken 08/19/18] donepezil 10 mg PO QHS 11/28/17 [History Last Taken 08/18/18] meloxicam 7.5 mg PO DAILY 11/28/17 [History Last Taken 08/19/18] paroxetine HCl 10 mg PO DAILY 11/28/17 [History Last Taken 08/19/18] allopurinol [Zyloprim] 300 mg PO DAILY 04/30/18 [History Last Taken 08/19/18] acetaminophen 1,000 mg PO Q8 08/22/18 [History Last Taken 08/22/18 05:30] polyethylene glycol 3350 17 g PO DAILY #30 packet 08/28/18 [Rx Last Taken Unknown] losartan 25 mg PO DAILY 05/26/21 [History Last Taken Unknown] memantine 5 mg PO BID 05/26/21 [History Last Taken Unknown] tamsulosin 0.4 mg PO DAILY 05/26/21 [History Last Taken Unknown] Allergy/AdvReac Type Severity Reaction Status Date / Time gabapentin Allergy Other Verified 05/26/21 03:15 metoprolol [From Toprol XL] Allergy PT UNSURE Verified 05/26/21 03:15 OF REACTION ramipril [From Altace] Allergy PT UNSURE Verified 05/26/21 03:15 OF REACTION Surgical History H/O total hip arthroplasty Social History Smoking Status: Former smoker ROS ROS ED ROS Narrative Past medical history: Reviewed, includes BPH, CHF, diabetes, gout, history of leukemia in remission, hypertension, hyperlipidemia, shuffling gait Medications: Reviewed in [facility] [place] Social history: Noncontributory Review of systems: All systems negative except as indicated General: Fever and generalized weakness Eyes: No visual changes ENT: No upper airway congestion, normal voice Neck: No neck pain Cardiovascular: No chest pain Respiratory: No shortness of breath or cough Gastrointestinal: No abdominal pain, nausea vomiting or diarrhea Genitourinary: No dysuria Musculoskeletal: No myalgias Skin: No rash Neurological: No memory loss, confusion or any focal weakness Psych: No recent behavioral changes Hematologic: No easy bleeding or easy bruising EXAM Physical Exam Narrative Exam Narrative: Physical exam General: Patient appears chronically ill, he does not seem like he is in acute distress. Head: Normocephalic, Atraumatic Eyes: Conjunctiva not pale ENT: Moist mucous membranes, no rhinorrhea or upper airway congestion Neck: Supple, Nontender, No lymphadenopathy Cardiovascular: Regular rate, Regular rhythm Respiratory: No distress, he is slightly tachypneic, he has coarse breath sounds worse on the right no wheezing. Abdomen: Soft, Nontender, Nondistended Back: Nontender, Normal Inspection. Negative for: CVA tenderness Extremities: Nontender, No edema Skin: Normal color, No rash Neurological: Alert, Normal Strength, Normal Sensation Psychological: Normal affect, quite thankful Const Vital Signs: 05/27/21 21:17 05/27/21 21:44 05/27/21 21:48 Temperature 99.5 F H 99.0 F Temperature Source Temporal Oral Pulse Rate 65 65 Respiratory Rate 16 23 H Respiratory Effort Non-Labored Blood Pressure 121/65 H 129/87 H Blood Pressure Mean 83 101 Pulse Ox 91 91 Oxygen Delivery Method Room Air Room Air 05/27/21 22:14 05/27/21 23:07 05/27/21 23:43 Temperature 99.0 F 98.6 F 98.2 F Temperature Source Oral Oral Oral Pulse Rate 78 72 74 Respiratory Rate 24 H 20 H 17 Respiratory Effort Blood Pressure 129/76 H 127/70 H 127/70 H Blood Pressure Mean 93 89 89 Pulse Ox 93 94 94 Oxygen Delivery Method Room Air Room Air Room Air MDM MDM MDM Narrative Medical decision making narrative: Patient work-up is generally unremarkable there is some evidence of dehydration and uremia, his creatinine however is basically baseline. He received IV fluids. I cannot find a source of his infection right now, he had some loose stools and diarrhea which could be C. difficile however he give us a really small sample which we could not send to the lab due to the size of the sample but I doubt this is C. difficile. He came in with a pulse ox of 91% he was slightly tachypneic and when I first saw him and he had rales on the right side of his lung when I examined him, I believe this is an early pneumonia. I will treat him as such. Otherwise I will admit him to the hospital. Lab Data Labs: Laboratory Results - last 24 hr 05/27/21 05/27/21 05/27/21 21:40 21:40 21:40 WBC 4.1 L RBC 4.27 L Hgb 13.2 Hct 39.3 L MCV 92.0 MCH 30.9 MCHC 33.6 RDW Std Deviation 55.8 H RDW Coeff of Eduarda 16.4 H Plt Count 209 MPV 11.5 Immature Gran % (Auto) 0.200 Neut % (Auto) 66.2 Lymph % (Auto) 29.5 [place] % (Auto) 3.9 Eos % (Auto) 0.0 Baso % (Auto) 0.2 Absolute Neuts (auto) 2.7 Absolute Lymphs (auto) 1.22 Nucleated RBC % 0 Differential Comment SCANNED PT 14.0 INR 1.1 APTT 35.1 Sodium 134 L Potassium 3.8 Chloride 104 Carbon Dioxide 23.0 Anion Gap 7 BUN 46 H Creatinine 1.44 H Estim Creat Clear Calc 38.89 Est GFR (MDRD) Af Amer 61 Est GFR (MDRD) Non-Af 50 L BUN/Creatinine Ratio 31.9 H Glucose 115 H Lactic Acid Calcium 9.2 Total Bilirubin 0.40 AST 55 H ALT 21 Alkaline Phosphatase 105 Total Protein 6.1 L Albumin 2.8 L Globulin 3.3 Albumin/Globulin Ratio 0.8 L Urine Color Urine Clarity Urine pH Ur Specific [place] Urine Protein Urine Glucose (UA) Urine Ketones Urine Occult Blood Urine Nitrite Urine Bilirubin Urine Urobilinogen Ur Leukocyte Esterase Urine RBC Urine WBC Ur Squamous Epith Cells Urine Bacteria Urine Mucus 05/27/21 05/27/21 21:40 23:00 WBC RBC Hgb Hct MCV MCH MCHC RDW Std Deviation RDW Coeff of Eduarda Plt Count MPV Immature Gran % (Auto) Neut % (Auto) Lymph % (Auto) [place] % (Auto) Eos % (Auto) Baso % (Auto) Absolute Neuts (auto) Absolute Lymphs (auto) Nucleated RBC % Differential Comment PT INR APTT Sodium Potassium Chloride Carbon Dioxide Anion Gap BUN Creatinine Estim Creat Clear Calc Est GFR (MDRD) Af Amer Est GFR (MDRD) Non-Af BUN/Creatinine Ratio Glucose Lactic Acid 1.1 Calcium Total Bilirubin AST ALT Alkaline Phosphatase Total Protein Albumin Globulin Albumin/Globulin Ratio Urine Color Yellow Urine Clarity Cloudy Urine pH 5.0 Ur Specific [place] 1.020 Urine Protein 100 H Urine Glucose (UA) Normal Urine Ketones Negative Urine Occult Blood 150 H Urine Nitrite Negative Urine Bilirubin Negative Urine Urobilinogen Normal Ur Leukocyte Esterase Negative Urine RBC 0-5 SEEN Urine WBC 0 SEEN Ur Squamous Epith Cells 0-5 SEEN Urine Bacteria RARE Urine Mucus 0 SEEN Radiography Diagnostic Testin view chest x-ray read by me does not show any pneumonia. Normal cardiac silhouette. No other pathologies. Discharge Plan Triage Chief Complaint: Fever ED Provider: Adama Mata Dx/Rx/DC Orders Clinical Impression: Fever, Weakness, Dehydration Prescriptions: No Action metformin 500 MG tablet 500 mg PO BIDCM RF: 0 atorvastatin 10 MG tablet 10 mg PO QHS RF: 0 doxazosin 1 MG tablet 1 mg PO QHS RF: 0 allopurinol [Zyloprim] 300 MG tablet 300 mg PO DAILY RF: 0 paroxetine HCl 10 MG tablet 10 mg PO DAILY RF: 0 donepezil 5 MG tablet 10 mg PO QHS RF: 0 meloxicam 7.5 MG tablet 7.5 mg PO DAILY RF: 0 acetaminophen 500 MG tablet 1,000 mg PO Q8 RF: 0 polyethylene glycol 3350 17 GM packet 17 g PO DAILY Qty: 30 RF: 0 tamsulosin 0.4 mg capsule 0.4 mg PO DAILY RF: 0 losartan 25 mg tablet 25 mg PO DAILY RF: 0 memantine 5 mg tablet 5 mg PO BID RF: 0 Primary Care Provider: Wilfred Vázquez III Referrals: Wilfred Vázquez III, MD [Primary Care Provider] - Disposition Disposition: Acute Care Hospital [facility]
[2021-05-27 22:14] VITALS: BP 129/76; PULSE 78; RESP 24; TEMP 37.2; O2SAT 93
--- NOTE | 2021-05-27 22:16 | RAD_ITS ---
STUDY: X-RAY CHEST REASON FOR EXAM: Male, 81 years old. FEVER, DIARRHEA AND INTERMITTENT CONFUSION TECHNIQUE: Single AP portable view of the chest. COMPARISON: May 26, 2021 FINDINGS: Chronic hypoaeration of the left lung. No focal consolidation or infiltrates are seen in either lung. The appearance is stable when compared to the prior study. There is no demonstrated pleural abnormality. Normal size heart. Normal mediastinum and cuca. Normal visualized pulmonary arteries. There is atherosclerotic calcification of the aortic arch with tortuosity. Stable osseous structures. Stable surgical clips of the left upper quadrant. There is no demonstrated abnormality of the visualized soft tissue structures of the upper abdomen. RAD/Chest 1 View (Portable) IMPRESSION: Chronic hypoaeration of the left lung. No focal consolidation or infiltrates are seen in either lung. The appearance is stable when compared to the prior study. Electronically Signed: Chaz Goodwin MD at 23:57 EDT , Service support ,
[2021-05-27 22:35] LABS: Absolute Lymphocyte Count 1.22 X10^3/uL (0.83-4.51); Absolute Neutrophil Count 2.7 X10^3/uL (2.0-7.7); Basophil# 0.01 X10^3/uL; Basophil% 0.2 % (0-1); Hematocrit 39.3 % (40-54); Hemoglobin 13.2 g/dL (13.0-16.5); Lymphocyte # 1.22 X10^3/ul (0.83-4.51); Lymphocyte % 29.5 % (19-41); Mean Corp Hgb Conc 33.6 g/dL (32-36); Mean Corpuscular Hgb 30.9 pg (27.0-32.0); Mean Platelet Vol. 11.5 fl (6.2-12.0); Monocyte# 0.16 X10^3/uL; Monocyte% 3.9 % (0-10); NRBC Flagged by Analyzer 0 % (0-5); Neutrophil # 2.73 X10^3/uL (2.7-7.7); Neutrophil % 66.2 % (47-70); POSITIVE MORPHOLOGY YES; Platelet Count 209 K/mm3 (150-450); RBC Distribution Width CV 16.4 % (11.6-14.6); RBC Distribution Width SD 55.8 fl (35.1-43.9); Red Blood Count 4.27 M/mm3 (4.6-6.2); White Blood Count 4.1 K/mm3 (4.4-11.0)
[2021-05-27 22:38] LABS: Differential Indicated SCAN CRITERIA MET
[2021-05-27 22:40] LABS: International Normalized Ratio 1.1
[2021-05-27 22:41] LABS: Partial Thromboplast Time 35.1 Seconds (24.1-36.2)
[2021-05-27 22:49] LABS: ALB/GLOB Ratio 0.8 RATIO (0.9-2.4); AST(SGOT) 55 U/L (15-37); Alanine Aminotransfer ALT/SGPT 21 U/L (16-61); Albumin, Serum 2.8 g/dL (3.2-5.0); Alkaline Phosphatase 105 U/L (45-117); Anion Gap 7 (5-15); BUN 46 mg/dL (7-18); BUN/Creat Ratio 31.9 RATIO (10-20); Calcium,Total 9.2 mg/dL (8.5-10.1); Chloride 104 mmol/L (98-107); Creatinine, Serum 1.44 mg/dL (0.70-1.30); EST Glomerular Filtration Rate 50 mL/min (>60); Est Glom Filt Rate - Afr Amer 61 mL/min (>60); Estimated Creatinine Clearance 38.89 ml/min; Globulin 3.3 g/dL (2.2-4.2); Glucose 115 mg/dL (74-106); Potassium 3.8 mmol/L (3.5-5.1); Protein, Total 6.1 g/dL (6.4-8.2); Sodium Level 134 mmol/L (136-145)
[2021-05-27 22:58] LABS: Lactic Acid 1.1 mmol/L (0.4-1.9)
[2021-05-27 23:07] VITALS: BP 127/70; PULSE 72; RESP 20; TEMP 37; O2SAT 94
[2021-05-27 23:09] LABS: Mucous, Urine 0 SEEN /hpf (<or=2+); White Blood Cells 0 SEEN /hpf (0-5)
[2021-05-27 23:12] LABS: Color, Urine Yellow (Yellow); Glucose, Dipstick Normal (Normal); Ketone-Dipstick Negative (Negative); Leukocyte Esterase-Dipstick Negative /ul (Negative); Nitrite-Dipstick Negative (Negative); Occult Blood-Urine 150 /ul (Negative); Protein-Dipstick 100 mg/dl (Negative); Urine Bilirubin Dipstick Negative (Negative); Urine Clarity Cloudy (Clear); Urine Urobilinogen Normal (Normal)
[2021-05-27 23:13] LABS: Differential Comment SCANNED
[2021-05-27] MEDS: 0.9% Normal Saline 1,000 ML 999 ML IV (23:14)
[2021-05-27 23:18] LABS: Red Blood Cells-Urine 0-5 SEEN /hpf (0-5); Squamous Epithelial Cells - UA 0-5 SEEN /hpf (0-5)
[2021-05-27 23:19] LABS: Bacteria RARE /hpf (None Seen)
[2021-05-27] MEDS: Ceftriaxone 1 GM/50 ML BAG IV (23:42)
[2021-05-27 23:43] VITALS: BP 127/70; PULSE 74; RESP 17; TEMP 36.8; O2SAT 94
--- NOTE | 2021-05-27 23:47 | HP.PCM.HOS_ITS ---
[facility] - General General Date of Admission: 05/28/21 HPI Narrative JEN MULLINS, is a 81 M with a significant history of hairy cell leukemia; hypertension; and mild cognitive impairment with memory loss who presents to the emergency department with 1.5 days history of diarrhea. Patient has had multiple episodes of loose stools. At baseline he is incontinent of stool and urine. However the last 1.5 days as above patient's has been incontinent of stool and urine. Although at baseline he is able to walk and drive patient has been too weak and has been requiring a walker. Associated with symptoms is poor appetite and mild shortness of breath. Further, at home he had a fever with temperature of 101.4 Fahrenheit. Also he had chills. He denies any burning with urination. [facility] Medical History Anxiety Benign prostate hyperplasia Cardiomyopathy Degenerative disc disease, cervical DM2 (diabetes mellitus, type 2) Encephalopathy Gout Hairy cell leukemia Heart failure with reduced ejection fraction HTN (hypertension) Left bundle branch block Mild cognitive impairment with memory loss Home Medications atorvastatin 10 mg PO QHS 11/20/15 [History Last Taken 08/18/18] doxazosin 1 mg PO QHS 11/20/15 [History Last Taken 08/18/18] metformin 500 mg PO BIDCM 11/20/15 [History Last Taken 08/19/18] donepezil 10 mg PO QHS 11/28/17 [History Last Taken 08/18/18] meloxicam 7.5 mg PO DAILY 11/28/17 [History Last Taken 08/19/18] paroxetine HCl 10 mg PO DAILY 11/28/17 [History Last Taken 08/19/18] allopurinol [Zyloprim] 300 mg PO DAILY 04/30/18 [History Last Taken 08/19/18] acetaminophen 1,000 mg PO Q8 08/22/18 [History Last Taken 08/22/18 05:30] polyethylene glycol 3350 17 g PO DAILY #30 packet 08/28/18 [Rx Last Taken Unknown] losartan 25 mg PO DAILY 05/26/21 [History Last Taken Unknown] memantine 5 mg PO BID 05/26/21 [History Last Taken Unknown] tamsulosin 0.4 mg PO DAILY 05/26/21 [History Last Taken Unknown] Allergy/AdvReac Type Severity Reaction Status Date / Time gabapentin Allergy Other Verified 05/26/21 03:15 metoprolol [From Toprol XL] Allergy PT UNSURE Verified 05/26/21 03:15 OF REACTION ramipril [From Altace] Allergy PT UNSURE Verified 05/26/21 03:15 OF REACTION Family History Other Cancer Heart disease Surgical History H/O total hip arthroplasty Social History Smoking Status: Former smoker ROS ROS Narrative 12 point review of system is negative except as stated in HPI. Vital Signs Vital Signs Vital Signs: 05/27/21 21:17 05/27/21 21:44 05/27/21 21:48 Temperature 99.5 F H 99.0 F Temperature Source Temporal Oral Pulse Rate 65 65 Respiratory Rate 16 23 H Respiratory Effort Non-Labored Blood Pressure 121/65 H 129/87 H Blood Pressure Mean 83 101 Pulse Ox 91 91 Oxygen Delivery Method Room Air Room Air 05/27/21 22:14 05/27/21 23:07 05/27/21 23:43 Temperature 99.0 F 98.6 F 98.2 F Temperature Source Oral Oral Oral Pulse Rate 78 72 74 Respiratory Rate 24 H 20 H 17 Respiratory Effort Blood Pressure 129/76 H 127/70 H 127/70 H Blood Pressure Mean 93 89 89 Pulse Ox 93 94 94 Oxygen Delivery Method Room Air Room Air Room Air Weight Weight: 71.214 kg Body Mass Index (BMI) 24.5 Physical Exam Narrative Physical exam: General: Well-nourished, well-developed, no acute distress Head: Normocephalic, atraumatic, no tenderness Eyes: PERRLA, EOMI ENT, no trauma, moist mucous membranes, no rhinorrhea Neck: Nontender, full range of motion, no spinal tenderness, deformities, step- off CVS: Regular rate and rhythm Respiratory no acute distress, clear to auscultation bilaterally, chest wall n ontender, no wheezing Abdomen: Soft, nontender, nondistended, normal bowel sounds, no masses : Deferred Extremities: 2+ swelling of the right foot (chronic); left foot with no edema. Skin: Normal color, no trauma, abrasions Neuro: Alert, oriented, cranial nerves II through XII grossly intact. Results Lab / Micro Data Result Diagrams: 05/27/21 21:40 05/27/21 21:40 Labs: Laboratory Results - last 24 hr 05/27/21 05/27/21 07 21:40 21:40 21:40 WBC 4.1 L RBC 4.27 L Hgb 13.2 Hct 39.3 L MCV 92.0 MCH 30.9 MCHC 33.6 RDW Std Deviation 55.8 H RDW Coeff of Eduarda 16.4 H Plt Count 209 MPV 11.5 Immature Gran % (Auto) 0.200 Neut % (Auto) 66.2 Lymph % (Auto) 29.5 [place] % (Auto) 3.9 Eos % (Auto) 0.0 Baso % (Auto) 0.2 Absolute Neuts (auto) 2.7 Absolute Lymphs (auto) 1.22 Nucleated RBC % 0 Differential Comment SCANNED PT 14.0 INR 1.1 APTT 35.1 Sodium 134 L Potassium 3.8 Chloride 104 Carbon Dioxide 23.0 Anion Gap 7 BUN 46 H Creatinine 1.44 H Estim Creat Clear Calc 38.89 Est GFR (MDRD) Af Amer 61 Est GFR (MDRD) Non-Af 50 L BUN/Creatinine Ratio 31.9 H Glucose 115 H Lactic Acid Calcium 9.2 Total Bilirubin 0.40 AST 55 H ALT 21 Alkaline Phosphatase 105 Total Protein 6.1 L Albumin 2.8 L Globulin 3.3 Albumin/Globulin Ratio 0.8 L Urine Color Urine Clarity Urine pH Ur Specific [place] Urine Protein Urine Glucose (UA) Urine Ketones Urine Occult Blood Urine Nitrite Urine Bilirubin Urine Urobilinogen Ur Leukocyte Esterase Urine RBC Urine WBC Ur Squamous Epith Cells Urine Bacteria Urine Mucus 05/27/21 05/27/21 21:40 23:00 WBC RBC Hgb Hct MCV MCH MCHC RDW Std Deviation RDW Coeff of Eduarda Plt Count MPV Immature Gran % (Auto) Neut % (Auto) Lymph % (Auto) [place] % (Auto) Eos % (Auto) Baso % (Auto) Absolute Neuts (auto) Absolute Lymphs (auto) Nucleated RBC % Differential Comment PT INR APTT Sodium Potassium Chloride Carbon Dioxide Anion Gap BUN Creatinine Estim Creat Clear Calc Est GFR (MDRD) Af Amer Est GFR (MDRD) Non-Af BUN/Creatinine Ratio Glucose Lactic Acid 1.1 Calcium Total Bilirubin AST ALT Alkaline Phosphatase Total Protein Albumin Globulin Albumin/Globulin Ratio Urine Color Yellow Urine Clarity Cloudy Urine pH 5.0 Ur Specific [place] 1.020 Urine Protein 100 H Urine Glucose (UA) Normal Urine Ketones Negative Urine Occult Blood 150 H Urine Nitrite Negative Urine Bilirubin Negative Urine Urobilinogen Normal Ur Leukocyte Esterase Negative Urine RBC 0-5 SEEN Urine WBC 0 SEEN Ur Squamous Epith Cells 0-5 SEEN Urine Bacteria RARE Urine Mucus 0 SEEN Assessment & Plan Assessment/Plan (1) Gastroenteritis: (2) Physical debility: PLAN: Acute gastroenteritis Emergency department labs reviewed showed white count of 4.1. Review of old records shows that baseline white count is between 7-10. Patient is a low-grade fever of 100.5 Fahrenheit at the hospital. Home medications include Tylenol [id number]. Received ceftriaxone and azithromycin at the emergency department. Acute gastroenteritis could be viral. However, with patient's age we will put patient on antibiotics. Ceftriaxone and metronidazole ordered inpatient. C. difficile was ordered at the emergency department patient did not produce enough stool for test to be done. Enteropathogenic panel and O&P ordered. Gentle IV hydration ordered. Diabetes mellitus with nephropathy Review of urinalysis showed proteinuria. Patient with mild hyperglycemia on presentation. Hold Metformin the hospital setting. Accu-Chek QA CHS with correction scale insulin ordered. MOISES Review of labs showed creatinine of 1.44 Creatinine baseline is around 1.13. BUN is 46. BUN compared to previous is about doubled. BUN over creatinine is 31.9. Likely prerenal from dehydration. Avoid nephrotoxins. Losartan held. Meloxicam held. Gentle IV hydration. [place] BMP. Debility secondary to medical illness PT OT work with patient. Hypertension Blood pressure is stable in regard to his age Losartan held secondary to MOISES. As needed hydralazine ordered. Trend blood pressure and adjust blood pressure medications. Alzheimer dementia Aricept and Namenda continued Hyperlipidemia Lipitor continued Depression Prazosin continued BPH Flomax continued DVT prophylaxis Subcutaneous heparin ordered. Charges/Coding Visit Charges Inpatient E&M: 11577 Init Hosp L3
[2021-05-28] VITALS (7 sets, daily range): BP systolic 131–150; BP diastolic 63–80; PULSE 64–74; RESP 16–22; TEMP 36.6–37.1; O2SAT 92–94; BMI 24.8
[2021-05-28] MEDS: 0.9% Normal Saline 1,000 ML 75 ML IV ×2 (02:06→15:45)
[2021-05-28] MEDS: metroNIDAZOLE 500 MG/100 ML BAG 100 MG IV (02:07)
[2021-05-28] MEDS: Acetaminophen 500 MG Tablet 1000 MG PO ×3 (05:27→21:22)
[2021-05-28 06:16] LABS: Bedside Glucose 104 mg/dL (70-110)
[2021-05-28 06:23] LABS: Absolute Lymphocyte Count 1.56 X10^3/uL (0.83-4.51); Absolute Neutrophil Count 3.2 X10^3/uL (2.0-7.7); Basophil# 0.02 X10^3/uL; Basophil% 0.4 % (0-1); Eosinophil# 0.01 X10^3/uL; Eosinophils% 0.2 % (0-5); Hematocrit 39.7 % (40-54); Hemoglobin 12.8 g/dL (13.0-16.5); Lymphocyte # 1.56 X10^3/ul (0.83-4.51); Lymphocyte % 31.3 % (19-41); Mean Corp Hgb Conc 32.2 g/dL (32-36); Mean Corpuscular Hgb 30.3 pg (27.0-32.0); Mean Corpuscular Volume 93.9 fL (80-94); Mean Platelet Vol. 11.8 fl (6.2-12.0); Monocyte# 0.23 X10^3/uL; Monocyte% 4.6 % (0-10); NRBC Flagged by Analyzer 0 % (0-5); Neutrophil # 3.16 X10^3/uL (2.7-7.7); Neutrophil % 63.3 % (47-70); POSITIVE MORPHOLOGY YES; Platelet Count 191 K/mm3 (150-450); RBC Distribution Width CV 16.7 % (11.6-14.6); RBC Distribution Width SD 57.7 fl (35.1-43.9); Red Blood Count 4.23 M/mm3 (4.6-6.2)
[2021-05-28 06:24] LABS: Differential Indicated SCAN CRITERIA MET
[2021-05-28 06:33] LABS: Anion Gap 9 (5-15); BUN 41 mg/dL (7-18); BUN/Creat Ratio 30.1 RATIO (10-20); Calcium,Total 8.8 mg/dL (8.5-10.1); Chloride 105 mmol/L (98-107); Creatinine, Serum 1.36 mg/dL (0.70-1.30); EST Glomerular Filtration Rate 54 mL/min (>60); Est Glom Filt Rate - Afr Amer 65 mL/min (>60); Estimated Creatinine Clearance 41.18 ml/min; Glucose 103 mg/dL (74-106); Potassium 3.7 mmol/L (3.5-5.1); Sodium Level 137 mmol/L (136-145)
[2021-05-28 06:57] LABS: Atypical Lymphocyte RARE %; Differential Comment SCANNED
[2021-05-28] MEDS: PARoxetine 10 MG Tablet PO (08:37)
[2021-05-28] MEDS: Heparin Injection (Vial) 5,000 UNIT/ML VIAL 5000 UNIT SC ×2 (08:37→21:21)
[2021-05-28] MEDS: Memantine Hydrochloride 5 MG Tablet PO ×2 (08:37→21:22)
[2021-05-28] MEDS: Tamsulosin HCl 0.4 MG Capsule PO (08:37)
[2021-05-28] MEDS: Allopurinol 300 MG Tablet PO (08:37)
[2021-05-28] MEDS: Glucerna Shake 120 ML LIQUID PO ×4 (08:38→21:21)
--- NOTE | 2021-05-28 10:00 | PN.HOSP_ITS ---
Subjective Subjective Doing well, feels a bit better. Still having diarrhea. Objective Data Objective Data Vital Signs: Vital Signs Temp Pulse Resp BP Pulse Ox 98.6 F 72 16 131/69 H 92 05/28/21 08:01 05/28/21 08:01 05/28/21 08:01 05/28/21 08:01 05/28/21 09:44 Oxygen Delivery Method Room Air Weight: 158 lb 8.198 oz Body Mass Index (BMI) 24.8 Intake & Output: Intake and Output for Last 24 Hours 05/27/21 05/28/21 05/29/21 03:59 03:59 03:59 Intake Total 1406.25 / 1406.25 200 / 200 Balance 1406.25 / 1406.25 200 / 200 Lab / Micro Data Result Diagrams: 05/28/21 05:28 05/28/21 05:28 Labs: Laboratory Results - last 24 hr 05/27/21 05/27/21 05/27/21 21:40 21:40 21:40 WBC 4.1 L RBC 4.27 L Hgb 13.2 Hct 39.3 L MCV 92.0 MCH 30.9 MCHC 33.6 RDW Std Deviation 55.8 H RDW Coeff of Eduarda 16.4 H Plt Count 209 MPV 11.5 Immature Gran % (Auto) 0.200 Neut % (Auto) 66.2 Lymph % (Auto) 29.5 [place] % (Auto) 3.9 Eos % (Auto) 0.0 Baso % (Auto) 0.2 Absolute Neuts (auto) 2.7 Absolute Lymphs (auto) 1.22 Nucleated RBC % 0 Differential Comment SCANNED Atypical Lymphocytes PT 14.0 INR 1.1 APTT 35.1 Sodium 134 L Potassium 3.8 Chloride 104 Carbon Dioxide 23.0 Anion Gap 7 BUN 46 H Creatinine 1.44 H Estim Creat Clear Calc 38.89 Est GFR (MDRD) Af Amer 61 Est GFR (MDRD) Non-Af 50 L BUN/Creatinine Ratio 31.9 H Glucose 115 H Lactic Acid Calcium 9.2 Total Bilirubin 0.40 AST 55 H ALT 21 Alkaline Phosphatase 105 Total Protein 6.1 L Albumin 2.8 L Globulin 3.3 Albumin/Globulin Ratio 0.8 L Urine Color Urine Clarity Urine pH Ur Specific [place] Urine Protein Urine Glucose (UA) Urine Ketones Urine Occult Blood Urine Nitrite Urine Bilirubin Urine Urobilinogen Ur Leukocyte Esterase Urine RBC Urine WBC Ur Squamous Epith Cells Urine Bacteria Urine Mucus POC Glucose 05/27/21 05/27/21 05/28/21 21:40 23:00 05:28 WBC 5.0 RBC 4.23 L Hgb 12.8 L Hct 39.7 L MCV 93.9 MCH 30.3 MCHC 32.2 RDW Std Deviation 57.7 H RDW Coeff of Eduarda 16.7 H Plt Count 191 MPV 11.8 Immature Gran % (Auto) 0.200 Neut % (Auto) 63.3 Lymph % (Auto) 31.3 [place] % (Auto) 4.6 Eos % (Auto) 0.2 Baso % (Auto) 0.4 Absolute Neuts (auto) 3.2 Absolute Lymphs (auto) 1.56 Nucleated RBC % 0 Differential Comment SCANNED Atypical Lymphocytes RARE PT INR APTT Sodium Potassium Chloride Carbon Dioxide Anion Gap BUN Creatinine Estim Creat Clear Calc Est GFR (MDRD) Af Amer Est GFR (MDRD) Non-Af BUN/Creatinine Ratio Glucose Lactic Acid 1.1 Calcium Total Bilirubin AST ALT Alkaline Phosphatase Total Protein Albumin Globulin Albumin/Globulin Ratio Urine Color Yellow Urine Clarity Cloudy Urine pH 5.0 Ur Specific [place] 1.020 Urine Protein 100 H Urine Glucose (UA) Normal Urine Ketones Negative Urine Occult Blood 150 H Urine Nitrite Negative Urine Bilirubin Negative Urine Urobilinogen Normal Ur Leukocyte Esterase Negative Urine RBC 0-5 SEEN Urine WBC 0 SEEN Ur Squamous Epith Cells 0-5 SEEN Urine Bacteria RARE Urine Mucus 0 SEEN POC Glucose 05/28/21 05/28/21 05:28 06:08 WBC RBC Hgb Hct MCV MCH MCHC RDW Std Deviation RDW Coeff of Eduarda Plt Count MPV Immature Gran % (Auto) Neut % (Auto) Lymph % (Auto) [place] % (Auto) Eos % (Auto) Baso % (Auto) Absolute Neuts (auto) Absolute Lymphs (auto) Nucleated RBC % Differential Comment Atypical Lymphocytes PT INR APTT Sodium 137 Potassium 3.7 Chloride 105 Carbon Dioxide 23.0 Anion Gap 9 BUN 41 H Creatinine 1.36 H Estim Creat Clear Calc 41.18 Est GFR (MDRD) Af Amer 65 Est GFR (MDRD) Non-Af 54 L BUN/Creatinine Ratio 30.1 H Glucose 103 Lactic Acid Calcium 8.8 Total Bilirubin AST ALT Alkaline Phosphatase Total Protein Albumin Globulin Albumin/Globulin Ratio Urine Color Urine Clarity Urine pH Ur Specific [place] Urine Protein Urine Glucose (UA) Urine Ketones Urine Occult Blood Urine Nitrite Urine Bilirubin Urine Urobilinogen Ur Leukocyte Esterase Urine RBC Urine WBC Ur Squamous Epith Cells Urine Bacteria Urine Mucus POC Glucose 104 Micro: Microbiology 05/28/21 05:26 Stool Stool Lactoferrin - Final 05/28/21 05:26 Stool Enteric Bacteriology - Final Campylobacter species 05/27/21 22:13 Stool C. difficile DNA Amplification - Final Radiography Diagnostic Testing: Radiology Impression Chest X-Ray 05/27/21 22:16 IMPRESSION: Chronic hypoaeration of the left lung. No focal consolidation or infiltrates are seen in either lung. The appearance is stable when compared to the prior study. Electronically Signed: Chaz Goodwin MD at 23:57 EDT , Service support , Physical Exam Const alert, oriented x3 and no apparent distress HEENT moist oral mucous membranes Head and Scalp: normocephalic Eyes PERRL, EOMs intact bilaterally and conjunctivae normal Neck supple and no JVD Resp normal respiratory effort, no retractions, no use of accessory muscles and clear to auscultation bilaterally Auscultation: Negative for crackles, rales, rhonchi or wheezes Cardio regular rate, regular rhythm, S1 normal heart sound, S2 normal heart sound and no murmurs GI soft to palpation, non-tender and non-distended; Negative for hepatosplenomegaly Extremity no clubbing, cyanosis or edema Skin no rashes or lesions noted Neuro no focal motor deficits and no sensory deficits noted Psych affect normal Appearance: appropriate Assessment & Plan Assessment/Plan (1) Gastroenteritis: (2) Physical debility: PLAN: 1. Gastroenteritis secondary to Campylobacter/debility -No antibiotics -Continue with IV fluids -Continue with PT/OT for his weakness and gait instability. He does have a history of dementia 2. DM 2/MOISES -Renal function is improving, will continue to monitor -Continue with sliding scale insulin and Accu-Cheks AC at bedtime -We will make adjustments as necessary 3. HTN/HLD -Continue with his blood pressure medications, will hold his ARB secondary to his MOISES -We will make adjustments as necessary -Continue with Lipitor 4. Alzheimer's dementia/depression -Continue with his home meds -Appears stable at this time -Continue with Paxil 5. BPH -Stable -Continue with doxazosin and Flomax DVT: Heparin Charges/Coding Visit Charges Inpatient E&M: 55062 Subs Hosp L2
[2021-05-28] MEDS: Atorvastatin Calcium 10 MG Tablet PO (21:21)
[2021-05-28] MEDS: Donepezil HCl 10 MG Tablet PO (21:21)
[2021-05-28] MEDS: Doxazosin 1 MG Tablet PO (21:22)
[2021-05-28 21:41] LABS: Bedside Glucose 138 mg/dL (70-110)
[2021-05-29 03:24] VITALS: BP 159/68; PULSE 65; RESP 16; TEMP 36.6; O2SAT 95
[2021-05-29] MEDS: 0.9% Normal Saline 1,000 ML 75 ML IV ×2 (03:29→17:40)
[2021-05-29 06:06] LABS: Anion Gap 5 (5-15); BUN 33 mg/dL (7-18); BUN/Creat Ratio 26.6 RATIO (10-20); Calcium,Total 8.4 mg/dL (8.5-10.1); Chloride 111 mmol/L (98-107); Creatinine, Serum 1.24 mg/dL (0.70-1.30); EST Glomerular Filtration Rate 60 mL/min (>60); Est Glom Filt Rate - Afr Amer 72 mL/min (>60); Estimated Creatinine Clearance 45.16 ml/min; Glucose 89 mg/dL (74-106); Potassium 3.5 mmol/L (3.5-5.1); Sodium Level 139 mmol/L (136-145)
[2021-05-29] MEDS: Acetaminophen 500 MG Tablet 1000 MG PO ×3 (06:44→22:35)
[2021-05-29 06:50] LABS: Bedside Glucose 83 mg/dL (70-110)
[2021-05-29 07:33] VITALS: O2SAT 94
[2021-05-29] MEDS: Allopurinol 300 MG Tablet PO (08:33)
[2021-05-29] MEDS: Glucerna Shake 120 ML LIQUID PO ×4 (10:51→22:34)
[2021-05-29] MEDS: Heparin Injection (Vial) 5,000 UNIT/ML VIAL 5000 UNIT SC ×2 (10:52→22:36)
[2021-05-29] MEDS: Memantine Hydrochloride 5 MG Tablet PO ×2 (10:52→22:36)
[2021-05-29] MEDS: Tamsulosin HCl 0.4 MG Capsule PO (10:52)
[2021-05-29] MEDS: PARoxetine 10 MG Tablet PO (10:53)
[2021-05-29 10:58] VITALS: BP 155/64; PULSE 60; RESP 18; TEMP 36.5; O2SAT 97
--- NOTE | 2021-05-29 11:19 | CASEMGMT ---
Social Work Assessment Referral Date: 05/29/2021 Date of Assessment: 05/29/2021 Reason for consult: Possible SNF placement Informant: Personal Status: SW met with pt to complete initial assessment. Pt is alert and orientated x3. SW introduced self and role at [facility]. Pt agreeable to participating in assessment and answers questions appropriately. Living Arrangements: Pt states he lives with his in a one story home with three steps to enter. Pt states he has railings on one side of the steps. DME: Pt states he has a cane, walker. PCP: Pt states The retired Dr. Vázquez. Pt states he needs to get in contact with the new doctor that is taking over for Dr. Vázquez. Pharmacy: Pt states he is unable to remember the name of his pharmacy. Pt states it is somewhere in [place], past the clinic. ADLS: Pt states he was previously independent with ADLs. Pt states his is able to assist if needed. Transportation: Pt states he still drives. HHC: Pt states he has had HHC in the past, unable to recall name of the agency. Per pt's previous vists, pt was arranged with [facility] from [facility] in 2018. SNF: Pt states he has't been to a SNF before, but pt's chart states he has been to [facility] in .8 Substance Abuse Hx: Pt denied. Mental Health Hx: Pt denied, but pt's chart does state pt has history of depression. Advanced Directives: Pt states he has completed both, states his is his HCPOA. PER informed pt that documents are not on file at [facility]. Pt states his is coming to [facility] today, she is able to bring in copies. Pt then made a phone call to his to bring in documents. PER spoke with pt about discharge plans. Pt states he was able to work with PT/OT, states he was able to walk in the hallways with his walker. Pt states he is wanting to discharge home. PER spoke with pt about HHC. Pt agreeable to HHC. SW informed pt that a HHC list will be provided to pt. Pt states his is coming to [facility]. PER informed pt that HHC can be addressed with both him and his to make sure everyone is on the same page. Pt agreeable to this. SW updated RN CM. Plan: Home with HHC, family support Pascale Phillips PROJECT SPECIALIST, LETTERER
--- NOTE | 2021-05-29 11:31 | CASEMGMT ---
Social Work Note Per skidder driver questions, pt has completed HCPOA and LW and provided documents to [facility]. SW reviewed chart, no documents found. While SW was completing assessment with pt, SW informed pt that HCPOA and LW were not on file at [facility]. Pt states his is able to bring in copies. Pascale Phillips ASSOCIATE PROFESSOR PLANT PATHOLOGY, LABORATORY SPECIALIST
[2021-05-29 12:31] LABS: Bedside Glucose 85 mg/dL (70-110)
--- NOTE | 2021-05-29 12:54 | PCM.PN.HOSP ---
Subjective Subjective Looks and feels much better, tolerating his breakfast but he still having diarrhea and family is concerned about being able to get him to the bathroom in time if they take him home. He does not want to go to SNF, but is amenable to home health care. Objective Data Objective Data Vital Signs: Vital Signs Temp Pulse Resp BP Pulse Ox 97.7 F L 60 18 155/64 H 97 05/29/21 10:58 05/29/21 10:58 05/29/21 10:58 05/29/21 10:58 05/29/21 10:58 Oxygen Delivery Method Room Air Weight: 158 lb 8.198 oz Body Mass Index (BMI) 24.8 Intake & Output: Intake and Output for Last 24 Hours 05/28/21 05/29/21 05/30/21 03:59 03:59 03:59 Intake Total 1406.25 / 1406.25 3177.5 / 3177.5 450 / 450 Balance 1406.25 / 1406.25 3177.5 / 3177.5 450 / 450 Lab / Micro Data Result Diagrams: 05/28/21 05:28 05/29/21 05:30 Labs: Laboratory Results - last 24 hr 05/28/21 21:20: POC Glucose 138 H 05/29/21 05:30: Sodium 139, Potassium 3.5, Chloride 111 H, Carbon Dioxide 23.0, Anion Gap 5, BUN 33 H, Creatinine 1.24, Estim Creat Clear Calc 45.16, Est GFR (MDRD) Af Amer 72, Est GFR (MDRD) Non-Af 60, BUN/Creatinine Ratio 26.6 H, Glucose 89, Calcium 8.4 L 05/29/21 06:43: POC Glucose 83 05/29/21 12:24: POC Glucose 85 Micro: Microbiology 05/27/21 23:00 Urine, Clean Catch Urine Culture - Preliminary Culture exhibits no growth. 05/28/21 05:26 Stool Stool Lactoferrin - Final 05/28/21 05:26 Stool Enteric Bacteriology - Final Campylobacter species 05/27/21 22:13 Stool C. difficile DNA Amplification - Final Physical Exam Const alert and no apparent distress HEENT moist oral mucous membranes Eyes PERRL, EOMs intact bilaterally and conjunctivae normal Neck supple and no JVD Resp normal respiratory effort, no retractions, no use of accessory muscles and clear to auscultation bilaterally Auscultation: Negative for crackles, rales, rhonchi or wheezes Cardio regular rate, regular rhythm, S1 normal heart sound, S2 normal heart sound and no murmurs GI soft to palpation, non-tender and non-distended; Negative for hepatosplenomegaly Extremity no clubbing, cyanosis or edema Skin no rashes or lesions noted Neuro no focal motor deficits and no sensory deficits noted Psych affect normal Appearance: appropriate Assessment & Plan Assessment/Plan (1) Gastroenteritis: (2) Physical debility: (3) Acute kidney injury: PLAN: 1. Gastroenteritis secondary to Campylobacter/debility -No antibiotics -Continue with IV fluids -Continue with PT/OT for his weakness and gait instability. He does have a history of dementia -Disposition will be home with home health, family does not want SNF 2. DM 2/MOISES -Renal function is improving, will continue to monitor -Continue with sliding scale insulin and Accu-Cheks AC at bedtime -We will make adjustments as necessary -MOISES has resolved 3. HTN/HLD -Continue with his blood pressure medications, will hold his ARB secondary to his MOISES -We will make adjustments as necessary -Continue with Lipitor 4. Alzheimer's dementia/depression -Continue with his home meds -Appears stable at this time -Continue with Paxil 5. BPH -Stable -Continue with doxazosin and Flomax DVT: Heparin Charges/Coding Visit Charges Inpatient E&M: 27189 Subs Hosp L2
[2021-05-29 13:48] VITALS: BP 143/75; PULSE 61; RESP 18; TEMP 36.5; O2SAT 96
--- NOTE | 2021-05-29 15:25 | CHAPLAIN ---
Type of Pastoral Visit _x__ Initial Visit ___ Follow-up Visit ___ On-call Visit ___ General Patient Visit ___ Spiritual Assessment ___ Family Conference ___ Bereavement ___ Rapid Response ___ Code Blue ___ Other (describe below) Pastoral Care Referral From _x__ Patient ___ Family ___ Nurse ___ Physician ___ Police Chief ___ Government Affairs Specialist ___ Other (describe below) Sacrament/Intervention _x__ Active listening ___ Anointing ___ Yarsanism ___ Bereavement ___ Communion ___ Alannah exploration ___ _x__ Life review _x__ Prayer ___ Reconciliation ___ Sacrament of Sick ___ Supportive presence ___ Wedding ___ Other (describe below) Pastoral Comments
--- NOTE | 2021-05-29 15:32 | CASEMGMT ---
Social Work Note SW reviewed PT/OT, pt walked 110ft x2 with min assist. SW in to speak with pt. Pt states his Annemarie was at [facility] already today and may be back later today. SW asked pt if he spoke with her about HHC and pt states he did. Pt states she was agreeable to [facility]. Pt states he had HHC 3-4 years in the past and it was through [facility]. Pt agreeable to [facility] again. PER updated RN CM who will call pt's . Pascale Phillips BROADBAND ENGINEER, QUALITY ASSURANCE
--- NOTE | 2021-05-29 16:15 | CASEMGMT ---
RN MARK NOTE: Per Pascale ALBARADO, pt is requesting to go home and would like [facility]. Call placed to pt's , Annemarie, via TC. states she was in to visit pt today and states she saw him OOB and walking. She states she feels she can manage him at home and would like to take him home and is agreeable to [facility] for therapy. Reviewed list of local [facility] agencies over the phone and she was made aware a more complete list of providers including quality and resource use data would be provided as well. She states would like referral sent to [facility]. Discussed options of SN, therapies, and aide. states she plans to start managing pt's medications and would like SN for teaching/education. She denies need for an aide at this time. TC to Meera @ [facility] and referral made. She was made aware anticipate pt will be ready for discharge tomorrow. TC received from Meera and they are able to accept pt. Odalys SANTIAGO RN CM
[2021-05-29 17:06] LABS: Bedside Glucose 111 mg/dL (70-110)
[2021-05-29 18:22] VITALS: BP 144/90; PULSE 58; RESP 18; TEMP 37.1; O2SAT 96
[2021-05-29 22:28] VITALS: BP 152/87; PULSE 68; RESP 17; TEMP 36.9; O2SAT 95
[2021-05-29] MEDS: Doxazosin 1 MG Tablet PO (22:36)
[2021-05-29] MEDS: Donepezil HCl 10 MG Tablet PO (22:36)
[2021-05-29] MEDS: Atorvastatin Calcium 10 MG Tablet PO (22:36)
[2021-05-29 22:45] LABS: Bedside Glucose 88 mg/dL (70-110)
[2021-05-30 02:30] VITALS: BP 138/73; PULSE 63; RESP 17; TEMP 37.2; O2SAT 92
[2021-05-30] MEDS: 0.9% Normal Saline 1,000 ML 75 ML IV (06:14)
[2021-05-30] MEDS: Acetaminophen 500 MG Tablet 1000 MG PO (06:14)
[2021-05-30 06:26] LABS: Bedside Glucose 73 mg/dL (70-110)
[2021-05-30 10:22] VITALS: BP 158/75; PULSE 67; RESP 18; TEMP 36.6; O2SAT 94
[2021-05-30] MEDS: Allopurinol 300 MG Tablet PO (10:27)
[2021-05-30] MEDS: Tamsulosin HCl 0.4 MG Capsule PO (10:27)
[2021-05-30] MEDS: Glucerna Shake 120 ML LIQUID PO (10:29)
[2021-05-30] MEDS: Memantine Hydrochloride 5 MG Tablet PO (10:29)
[2021-05-30] MEDS: Heparin Injection (Vial) 5,000 UNIT/ML VIAL 5000 UNIT SC (10:30)
[2021-05-30] MEDS: PARoxetine 10 MG Tablet PO (10:30)
--- NOTE | 2021-05-30 11:04 | PCM.DC ---
Discharge Instructions Diet Discharge Diet: 1800 Calorie Control Diet Activity Discharge Activity: Return to Normal Activity Weight Bearing Status: Full weight bearing Follow Up Care Test Results: Test results from this visit will be discussed in further detail at your follow-up appointment, if applicable. Discharge Plan Admission Admit Date/Time: 05/28/21 00:16 Primary Reason for Your Visit: enteritis Attending Provider: Vern Rao Primary Care Provider: Wilfred Vázquez III Discharge Orders/Prescriptions Prescriptions: Continued metformin 500 MG tablet 500 mg PO BIDCM RF: 0 atorvastatin 10 MG tablet 10 mg PO QHS RF: 0 doxazosin 1 MG tablet 1 mg PO QHS RF: 0 allopurinol [Zyloprim] 300 MG tablet 300 mg PO DAILY RF: 0 paroxetine HCl 10 MG tablet 10 mg PO DAILY RF: 0 donepezil 5 MG tablet 10 mg PO QHS RF: 0 meloxicam 7.5 MG tablet 7.5 mg PO DAILY RF: 0 tamsulosin 0.4 mg capsule 0.4 mg PO DAILY RF: 0 losartan 25 mg tablet 25 mg PO DAILY RF: 0 memantine 5 mg tablet 5 mg PO BID RF: 0 acetaminophen 500 mg Tablet 1,000 mg PO BID RF: 0 Referrals / Follow Up: Wilfred Vázquez III, MD [Primary Care Provider] - Within 1 Month Disposition Disposition (needs filled in before D/C Order can be placed): Home, Self Care
--- NOTE | 2021-05-30 12:18 | CASEMGMT ---
TRACY FLORES NOTE: Pt being discharged home. TRACY FLORES to room to talk w/pt and who is at bedside. They were both made aware [facility] able to accept pt. voices appreciation that a nurse will be f/u with them for med mgmt. Also discussed CCN and is interested in same. She was made aware CCN would f/u after [facility] completed to discuss their program. Order for CCN referral placed and TC to Tomy @ [facility] to notify her of referral. Call placed to Meera @ [facility] and she was notified pt is being discharged today and also CCN referral. also provided information on [facility] support group and she voices appreciation of same. She states the kids have just been besides themselves and don't know what to do. This will be so helpful. Pt screened with [facility] Palliative Care Screening Tool for strata 3, pt did not meet criteria. Odalys SANTIAGO RN, CM
[2021-05-30 13:05] VITALS: BP 138/72; PULSE 68; RESP 18; TEMP 36.5; O2SAT 95
--- NOTE | 2021-05-31 15:09 | CASEMGMT ---
TRACY FLORES Discharge Follow-up Phone Call: JAI: Theresa Strata: 3 Call Date: 05/30/12 Discharge Date: 05/31/21 Time of Call: 1505 Duration: 5 min Admitting Diagnosis: Acute Gastroenteritis TRACY FLORES completed follow-up phone call after recent hospitalization. Patient states he is doing better every hour. Patient had no questions or concerns regarding discharge instructions. Patient had no new prescriptions. Patient states his PCP is retired and is looking for new PCP and will probably see his 's PCP. TRACY FLORES encourage patient to schedule appt to get established with new PCP. Patient voiced understanding and had no further questions or concerns at this time.
--- NOTE | 2021-06-01 08:43 | DS.PCM_ITS ---
Providers Date of Admission: 05/28/21 Date of Discharge: 05/30/21 Primary Care Physician: Dr. Wilfred Vázquez III, MD Reason For Visit: ACUTE GASTROENTERITIS Diagnosis Discharge Diagnosis (1) Gastroenteritis: Status: Acute Code(s): K52.9 - Noninfective gastroenteritis and colitis, unspecified (2) Physical debility: Status: Acute Code(s): R53.81 - Other malaise (3) Acute kidney injury: Status: Resolved Code(s): N17.9 - Acute kidney failure, unspecified Plan: 1. Acute gastroenteritis secondary to Campylobacter #2 Dehydration #3 type 2 diabetes #4 essential hypertension #5 hyperlipidemia #6 Alzheimer's dementia Acute kidney injury was ruled out Medications at Discharge Home Medications atorvastatin 10 mg PO QHS 11/20/15 doxazosin 1 mg PO QHS 11/20/15 metformin 500 mg PO BIDCM 11/20/15 donepezil 10 mg PO QHS 11/28/17 meloxicam 7.5 mg PO DAILY 11/28/17 paroxetine HCl 10 mg PO DAILY 11/28/17 allopurinol [Zyloprim] 300 mg PO DAILY 04/30/18 losartan 25 mg PO DAILY 05/26/21 memantine 5 mg PO BID 05/26/21 tamsulosin 0.4 mg PO DAILY 05/26/21 acetaminophen 1,000 mg PO BID 05/28/21 Hospital Course Operations None Procedures None Summary of Care Provided Minutes Spent on Discharge: 31 Hospital Course: This 81-year-old white male was brought to the emergency room at [facility] by his family with complaints of diarrhea and fever. Patient has a history of Alzheimer's dementia. Work-up in the emergency room revealed a normal white blood cell count on his CBC, Leon profile showed an elevated creatinine at 1.44 with an elevated BUN of 46. Patient was admitted to [place] [address] for dehydration and enteritis, he was given IV fluids, and seen by physical therapy. Enteric panel was obtained of the patient's stool which was positive for Campylobacter. Patient's diarrhea resolved during his hospital stay. On 05/30/2021, patient was seen and examined: On examination he appeared in good health and spirits, patient was moderately confused. Vital signs as documented. Skin warm and dry and without overt rashes. Neck without JVD, neck was supple, trachea midline, thyroid was normal. Lungs clear bilaterally, normal air movement was noted. Heart exam notable for regular rhythm, normal sounds and absence of murmurs, rubs or gallops. Abdomen unremarkable and without evidence of organomegaly, masses, or abdominal aortic enlargement. Bowel sounds are pres ent, abdomen is not distended. Extremities nonedematous, no cyanosis was noted, no clubbing was noted. Neuro: Cranial nerves II through XII are grossly intact, no focal motor deficits were noted, sensation to light touch and pinprick intact, motor exam 5/5 throughout. Psych: Patient is alert, he is confused On 05/30/2021, patient was discharged home in stable condition. Weight / BMI Weight Weight: 71.9 kg Body Mass Index (BMI) 24.8 ABG / Lab / Microbiology Data Result Diagrams: 05/28/21 05:28 05/29/21 05:30 Microbiology: Microbiology 05/27/21 23:00 Urine, Clean Catch Urine Culture - Final Culture exhibits no growth. 05/27/21 22:40 Blood Culture (Wb) - Right Hand Blood Culture - Preliminary No growth in 48 hours. 05/27/21 21:40 Blood Culture (Wb) - Left Forearm Bacteria Detection (PCR) - Final 05/27/21 21:40 Blood Culture (Wb) - Left Forearm Blood Culture - Preliminary Presumptive Micrococcus spp. 05/28/21 05:26 Stool Stool Lactoferrin - Final 05/28/21 05:26 Stool Enteric Bacteriology - Final Campylobacter species 05/27/21 22:13 Stool C. difficile DNA Amplification - Final D/C Instructions Discharge Diet: 1800 Calorie Control Diet Weight Bearing Status: Full weight bearing Meaningful Use Info Meaningful Use Diagnoses (Choose all that apply): None applicable Discharge Plan Admission Admit Date/Time: 05/28/21 00:16 Primary Reason for Your Visit: enteritis Attending Provider: Vern Rao Primary Care Provider: Wilfred Vázquez III Discharge Orders/Prescriptions Prescriptions: Continued metformin 500 MG tablet 500 mg PO BIDCM RF: 0 atorvastatin 10 MG tablet 10 mg PO QHS RF: 0 doxazosin 1 MG tablet 1 mg PO QHS RF: 0 allopurinol [Zyloprim] 300 MG tablet 300 mg PO DAILY RF: 0 paroxetine HCl 10 MG tablet 10 mg PO DAILY RF: 0 donepezil 5 MG tablet 10 mg PO QHS RF: 0 meloxicam 7.5 MG tablet 7.5 mg PO DAILY RF: 0 tamsulosin 0.4 mg capsule 0.4 mg PO DAILY RF: 0 losartan 25 mg tablet 25 mg PO DAILY RF: 0 memantine 5 mg tablet 5 mg PO BID RF: 0 acetaminophen 500 mg Tablet 1,000 mg PO BID RF: 0 Referrals / Follow Up: Wilfred Vázquez III, MD [Primary Care Provider] - Within 1 Month Disposition Disposition (needs filled in before D/C Order can be placed): Home, Self Care Charges/Coding Visit Charges Inpatient E&M: 67882 Disch Hosp
== END 2021-05-30 13:04 | disposition home health service (06) | DRG 372 ==
LOC: ED 05-28 00:05 → MS3 05-28 05:46
PROVIDERS: Family Medicine; Admitting Provider Hospitalist; Emergency Provider Emergency Medicine; PCP Family Medicine; Visit Provider Internal Medicine
DX: A04.5 Campylobacter enteritis (principal); I50.20 Unspecified systolic (congestive) heart failure; I42.9 Cardiomyopathy, unspecified; E86.0 Dehydration; I11.0 Hypertensive heart disease with heart failure; E78.5 Hyperlipidemia, unspecified; G30.9 Alzheimer's disease, unspecified; F02.80 Dementia in other diseases classified elsewhere, unspecified severity, without behavioral disturbance, psychotic disturbance, mood disturbance, and anxiety; M50.30 Other cervical disc degeneration, unspecified cervical region; N40.0 Benign prostatic hyperplasia without lower urinary tract symptoms; M10.9 Gout, unspecified; R15.9 Full incontinence of feces; R32 Unspecified urinary incontinence; E11.21 Type 2 diabetes mellitus with diabetic nephropathy; Z79.899 Other long term (current) drug therapy; Z79.84 Long term (current) use of oral hypoglycemic drugs; Z85.6 Personal history of leukemia; Z87.891 Personal history of nicotine dependence; F32.9 Major depressive disorder, single episode, unspecified
CPT/HCPCS: 36415; 70450; 71045; 80048; 80053; 81001; 82962; 83605; 83630; 84484; 85025; 85610; 85730; 87040; 87086; 87149; 87177; 87209; 87493; 87506; 93005; 97110; 97162; 97166; 97530; 97535; 97802; 99285; J7030; J7050; A4216

== ENCOUNTER 2021-07-01 19:45 | Inpatient (IN) | payer MEDICARE, SELFPAY ==
[2021-05-28 01:17] VITALS: BMI 24.8
[2021-07-01] VITALS (10 sets, daily range): BP systolic 129–146; BP diastolic 56–68; PULSE 66–87; RESP 22–28; TEMP 36.9–37.5; O2SAT 88–96; BMI 24.2
--- NOTE | 2021-07-01 20:10 | RAD_ITS ---
INDICATION: cough hypoxia EXAMINATION/TECHNIQUE: X-RAY - XR Chest 1 View COMPARISON: 05/27/2021 FINDINGS: LINES/DEVICES: Overlying heart monitoring wires. LUNGS: Patchy airspace disease seen throughout the lungs obscuring the heart border. No visible pleural fluid. No pneumothorax. There are decreased lung volumes with asymmetric elevation left hemidiaphragm. This appears to be chronic. MEDIASTINUM AND CARDIOVASCULAR STRUCTURES: Cardiac silhouette not enlarged. Central airways are unremarkable. Heart margins are somewhat obscured by airspace disease. BONES AND SOFT TISSUES: Surgical clips left upper quadrant. Fusion hardware distal cervical spine. Multilevel degenerative endplate sclerotic and bony proliferative changes. Suspect mild vertebral body height loss at T8, poorly visualized. RAD/Chest 1 View (Portable) IMPRESSION: Patchy airspace disease seen throughout the lungs consistent with pneumonia. Asymmetric elevation left hemidiaphragm. Suspect mild vertebral body height loss at T8. Consider thoracic spine x-rays. Postsurgical changes distal cervical spine and surgical clips left upper quadrant. Electronically Signed: Kolby Giraldo DO at 22:10 EDT Tel , Service support ,
--- NOTE | 2021-07-01 20:53 | EKG12_ITS ---
Test Reason : SOB Blood Pressure : / mmHG Vent. Rate : 071 BPM Atrial Rate : 071 BPM P-R Int : 164 ms QRS Dur : 142 ms QT Int : 446 ms P-R-T Axes : 041 -10 153 degrees QTc Int : 484 ms Normal sinus rhythm Left bundle branch block Abnormal ECG Confirmed by NATALIO MALCOLM, CHERRY ([id number]), slot editor ELGIN ROJO ([id number]) on 07/04/2021 9:36:25 AM Referred By: Confirmed By:CHERRY LANCE MD
--- NOTE | 2021-07-01 20:55 | EX.ED.DYSGE1 ---
HPI History of Present Illness Chief Complaint: General Illness Informant: patient Narrative Narrative: 81-year-old male presents to the emergency department feeling ill. Patient was hospitalized he states about a month ago with gastroenteritis. He had recovered and was doing well. And then last Saturday he generally started feeling weak. Saturday he developed diarrhea again for about mid week and that has subsided. He notes basically no food or water intake for the past couple days. He notes a cough and some shortness of breath. He denies any headache. He notes chills. No abdominal pain. He has not been eating because food does not sound good to him. [facility] Medical History Anxiety Benign prostate hyperplasia Cardiomyopathy Degenerative disc disease, cervical Dehydration DM2 (diabetes mellitus, type 2) Encephalopathy Fever Former smoker Gout Hairy cell leukemia Heart failure with reduced ejection fraction HTN (hypertension) Left bundle branch block Leukemia Mild cognitive impairment with memory loss Weakness Home Medications atorvastatin 10 mg PO QHS 11/20/15 [History Last Taken 05/26/21 22:00] doxazosin 1 mg PO QHS 11/20/15 [History Last Taken 05/26/21 22:00] metformin 500 mg PO BIDCM 11/20/15 [History Last Taken 05/27/21 08:00] donepezil 10 mg PO QHS 11/28/17 [History Last Taken 05/26/21 22:00] meloxicam 7.5 mg PO DAILY 11/28/17 [History Last Taken 05/27/21 08:00] paroxetine HCl 10 mg PO DAILY 11/28/17 [History Last Taken 05/27/21 08:00] allopurinol [Zyloprim] 300 mg PO DAILY 04/30/18 [History Last Taken 05/27/21 08:00] losartan 25 mg PO DAILY 05/26/21 [History Last Taken 05/27/21 08:00] memantine 5 mg PO BID 05/26/21 [History Last Taken 05/27/21 08:00] tamsulosin 0.4 mg PO DAILY 05/26/21 [History Last Taken 05/27/21 08:00] acetaminophen 1,000 mg PO BID 05/28/21 [History Last Taken 05/27/21 08:00] finasteride 5 mg PO DAILY 07/01/21 [History Last Taken Unknown] Allergy/AdvReac Type Severity Reaction Status Date / Time gabapentin Allergy tremors Verified 05/28/21 01:20 metoprolol [From Toprol XL] Allergy PT UNSURE Verified 05/26/21 03:15 OF REACTION ramipril [From Altace] Allergy PT UNSURE Verified 05/26/21 03:15 OF REACTION Family History Other Cancer Heart disease Surgical History H/O total hip arthroplasty History of appendectomy Hx of splenectomy Social History Smoking Status: Former smoker ROS ROS ED ROS Narrative Generalized weakness Constitutional Constitutional ED: Reports chills; Denies weight loss Eyes Eyes: Denies change in vision or diplopia ENT ENT ED: Denies ear pain, rhinorrhea or sore throat Cardiovascular Cardiovascular: Denies chest pain, orthopnea, palpitations or racing heartbeat Respiratory/Chest Respiratory/Chest: Reports cough, dyspnea and dyspnea on exertion; Denies orthopnea Gastrointestinal Gastrointestinal: Reports diarrhea; Denies abdominal pain, nausea or vomiting Genitourinary Genitourinary ED: Denies dysuria, hematuria or urinary frequency Musculoskeletal Musculoskeletal: Reports myalgias; Denies arthralgias Integumentary Denies abscess or rash Neurologic Neurologic: Denies headache(s) or weakness Psychiatric Psychiatric: Denies anxiety, depression, suicidal ideation or suicidal thoughts Endocrine Endocrinology: Denies polydipsia, polyphagia or polyuria Allergic/Immunologic Allergic/Immunologic ED: Denies mouth swelling, tongue swelling or urticaria EXAM Physical Exam Const Vital Signs: 07/01/21 19:46 07/01/21 19:52 07/01/21 20:29 Temperature 99.5 F H 99.5 F H Temperature Source Oral Oral Pulse Rate 71 71 Respiratory Rate 27 H 27 H Respiratory Effort Normal Respiratory Pattern Normal Blood Pressure 134/57 H Blood Pressure Mean 82 Pulse Ox 88 93 Oxygen Delivery Method Nasal Cannula Nasal Cannula Oxygen Flow Rate (L/min) 6 6 07/01/21 20:54 07/01/21 20:56 07/01/21 21:21 Temperature 99.5 F H 98.6 F 98.6 F Temperature Source Oral Oral Oral Pulse Rate 71 67 Respiratory Rate 27 H 28 H Respiratory Effort Respiratory Pattern Blood Pressure 134/57 H 139/56 H Blood Pressure Mean 82 83 Pulse Ox 93 92 Oxygen Delivery Method Nasal Cannula Non-Rebreather Oxygen Flow Rate (L/min) 6 15 07/01/21 22:01 07/01/21 22:18 07/01/21 23:06 Temperature 98.6 F 98.4 F 98.4 F Temperature Source Oral Oral Oral Pulse Rate 76 87 66 Respiratory Rate 22 H 22 H 22 H Respiratory Effort Respiratory Pattern Blood Pressure 129/68 H 146/65 H 130/64 H Blood Pressure Mean 88 92 86 Pulse Ox 93 96 92 Oxygen Delivery Method Non-Rebreather Non-Rebreather Airvo Oxygen Flow Rate (L/min) 07/01/21 23:08 07/01/21 23:11 Temperature 98.4 F 98.4 F Temperature Source Oral Oral Pulse Rate 66 Respiratory Rate 22 H Respiratory Effort Respiratory Pattern Blood Pressure 130/64 H Blood Pressure Mean 86 Pulse Ox 92 Oxygen Delivery Method Airvo Oxygen Flow Rate (L/min) 15 Positive well nourished and well developed General Appearance ED: well developed HEENT Reports normocephalic, head/scalp atraumatic and moist mucous membranes Eyes PERRL and EOMs intact bilaterally Neck no lymphadenopathy, supple and no JVD Resp clear to auscultation bilaterally Resp Narrative: Patient is tachypneic using accessory muscles Cardio regular rate, regular rhythm and no murmurs GI normal to inspection, nondistended, normoactive bowel sounds and non-tender Palpation: soft Back/Spine no CVA tenderness and normal ROM Extremity normal to inspection General Extremety ED: Negative for edema General Extremity: Negative for edema Neuro oriented x3 and CN's II-XII intact bilaterally Sensorium / Orientation: alert Motor Exam: strength 5/5 throughout Psych mental status grossly normal Mood & Affect: Negative for depressed or tearful Skin no rashes or lesions noted and no wounds MDM MDM MDM Narrative Medical decision making narrative: Patient's white count is elevated 18.9. INR 1.1. BUN of 40 creatinine 1.91. Lactic acid 1.2. Covid test is positive. My interpretation of the chest x-ray is multifocal areas of pneumonitis. Patient had high oxygen demands and was placed on high flow nasal cannula at 15 L. He received a dose of Decadron some mild fluid hydration. Plan is admission into the ICU. I spoke with Dr. Riddle and Dr. Young. CTA will be performed prior to admission to the ICU. Lab Data Attestation: I reviewed the patient's lab results. Labs: Laboratory Results - last 24 hr 07/01/21 07/01/21 07/01/21 19:25 19:25 19:25 WBC 18.9 H RBC 4.02 L Hgb 12.2 L Hct 37.7 L MCV 93.8 MCH 30.3 MCHC 32.4 RDW Std Deviation 60.5 H RDW Coeff of Eduarda 17.5 H Plt Count 246 MPV 11.7 Immature Gran % (Auto) 3.100 H Neut % (Auto) 89.5 H Lymph % (Auto) 5.4 L [place] % (Auto) 1.0 Eos % (Auto) 0.8 Baso % (Auto) 0.2 Absolute Neuts (auto) 16.9 H Absolute Lymphs (auto) 1.02 Nucleated RBC % 0 PT 13.3 INR 1.1 APTT 38.4 H Sodium 133 L Potassium 5.7 H Chloride 101 Carbon Dioxide 24.0 Anion Gap 8 BUN 40 H Creatinine 1.91 H Estim Creat Clear Calc 29.32 Est GFR (MDRD) Af Amer 44 L Est GFR (MDRD) Non-Af 36 L BUN/Creatinine Ratio 20.9 H Glucose 82 Lactic Acid Calcium 8.9 Total Bilirubin 0.60 AST 95 H ALT 33 Alkaline Phosphatase 114 Total Protein 7.0 Albumin 2.8 L Globulin 4.2 Albumin/Globulin Ratio 0.7 L Urine Color Urine Clarity Urine pH Ur Specific [place] Urine Protein Urine Glucose (UA) Urine Ketones Urine Occult Blood Urine Nitrite Urine Bilirubin Urine Urobilinogen Ur Leukocyte Esterase Urine RBC Urine WBC Ur Squamous Epith Cells Amorphous Sediment Urine Bacteria Fine Granular Casts Urine Mucus 07/01/21 07/01/21 20:00 22:12 WBC RBC Hgb Hct MCV MCH MCHC RDW Std Deviation RDW Coeff of Eduarda Plt Count MPV Immature Gran % (Auto) Neut % (Auto) Lymph % (Auto) [place] % (Auto) Eos % (Auto) Baso % (Auto) Absolute Neuts (auto) Absolute Lymphs (auto) Nucleated RBC % PT INR APTT Sodium Potassium Chloride Carbon Dioxide Anion Gap BUN Creatinine Estim Creat Clear Calc Est GFR (MDRD) Af Amer Est GFR (MDRD) Non-Af BUN/Creatinine Ratio Glucose Lactic Acid 1.2 Calcium Total Bilirubin AST ALT Alkaline Phosphatase Total Protein Albumin Globulin Albumin/Globulin Ratio Urine Color Yellow Urine Clarity Sl. Cloudy Urine pH 5.0 Ur Specific [place] 1.020 Urine Protein 100 H Urine Glucose (UA) Normal Urine Ketones 5 H Urine Occult Blood 150 H Urine Nitrite Negative Urine Bilirubin Negative Urine Urobilinogen Normal Ur Leukocyte Esterase Negative Urine RBC 25-50 SEEN Urine WBC 0-5 SEEN Ur Squamous Epith Cells 0 SEEN Amorphous Sediment 1+ Urine Bacteria 0 SEEN Fine Granular Casts 25-50 SEEN Urine Mucus 0 SEEN Radiography Diagnostic Testing: Radiology Impression Chest X-Ray 07/01/21 20:10 IMPRESSION: Patchy airspace disease seen throughout the lungs consistent with pneumonia. Asymmetric elevation left hemidiaphragm. Suspect mild vertebral body height loss at T8. Consider thoracic spine x-rays. Postsurgical changes distal cervical spine and surgical clips left upper quadrant. Electronically Signed: Kolby Giraldo DO at 22:10 EDT Tel , Service support , EKG Initial EKG: Attestation: I personally reviewed and interpreted this EKG as follows: Comments: Normal sinus rhythm at a rate of 71 with a left bundle branch block Critical Care Time Critical Care Time: Yes Critical care time (excluding procedures): 30-74 minutes (35 min), Including time spent:, Discussing w/Patient &/or Family/Director Quality Assurance, Discussing w/Consultants, Arranging Admission or Transfer and Performing Direct Patient Care at Bedside Discharge Plan Dx/Rx/DC Orders Clinical Impression: COVID-19, Encephalopathy acute, Acute hypoxemic respiratory failure due to COVID-19 Disposition Disposition: [facility]
[2021-07-01] MEDS: 0.9% Normal Saline 1,000 ML 250 ML IV (21:11)
[2021-07-01 21:15] LABS: Absolute Lymphocyte Count 1.02 X10^3/uL (0.83-4.51); Absolute Neutrophil Count 16.9 X10^3/uL (2.0-7.7); Basophil# 0.04 X10^3/uL; Basophil% 0.2 % (0-1); Eosinophil# 0.15 X10^3/uL; Eosinophils% 0.8 % (0-5); Hematocrit 37.7 % (40-54); Hemoglobin 12.2 g/dL (13.0-16.5); Lymphocyte # 1.02 X10^3/ul (0.83-4.51); Lymphocyte % 5.4 % (19-41); Mean Corp Hgb Conc 32.4 g/dL (32-36); Mean Corpuscular Hgb 30.3 pg (27.0-32.0); Mean Corpuscular Volume 93.8 fL (80-94); Mean Platelet Vol. 11.7 fl (6.2-12.0); Monocyte# 0.19 X10^3/uL; NRBC Flagged by Analyzer 0 % (0-5); Neutrophil # 16.93 X10^3/uL (2.7-7.7); Neutrophil % 89.5 % (47-70); Platelet Count 246 K/mm3 (150-450); RBC Distribution Width CV 17.5 % (11.6-14.6); RBC Distribution Width SD 60.5 fl (35.1-43.9); Red Blood Count 4.02 M/mm3 (4.6-6.2); White Blood Count 18.9 K/mm3 (4.4-11.0)
[2021-07-01 21:36] LABS: Lactic Acid 1.2 mmol/L (0.4-1.9)
[2021-07-01 21:36] LABS: ALB/GLOB Ratio 0.7 RATIO (0.9-2.4); AST(SGOT) 95 U/L (15-37); Alanine Aminotransfer ALT/SGPT 33 U/L (16-61); Albumin, Serum 2.8 g/dL (3.2-5.0); Alkaline Phosphatase 114 U/L (45-117); Anion Gap 8 (5-15); BUN 40 mg/dL (7-18); BUN/Creat Ratio 20.9 RATIO (10-20); Calcium,Total 8.9 mg/dL (8.5-10.1); Chloride 101 mmol/L (98-107); Creatinine, Serum 1.91 mg/dL (0.70-1.30); EST Glomerular Filtration Rate 36 mL/min (>60); Est Glom Filt Rate - Afr Amer 44 mL/min (>60); Estimated Creatinine Clearance 29.32 ml/min; Globulin 4.2 g/dL (2.2-4.2); Glucose 82 mg/dL (74-106); Potassium 5.7 mmol/L (3.5-5.1); Sodium Level 133 mmol/L (136-145)
[2021-07-01 21:38] LABS: International Normalized Ratio 1.1; Prothrombin Time (Protime)PT. 13.3 SECONDS (11.7-14.9)
[2021-07-01 21:39] LABS: Partial Thromboplast Time 38.4 Seconds (24.1-36.2)
--- NOTE | 2021-07-01 22:02 | ED.RN ---
per , try hiflow o2 before bipap.
[2021-07-01] MEDS: 0.9% Normal Saline 1,000 ML 999 ML IV (22:05)
[2021-07-01] MEDS: dexAMETHasone 4 MG Tablet 6 MG PO (22:05)
[2021-07-01 22:18] LABS: Bacteria 0 SEEN /hpf (None Seen); Mucous, Urine 0 SEEN /hpf (<or=2+); Squamous Epithelial Cells - UA 0 SEEN /hpf (0-5)
[2021-07-01 22:19] LABS: Color, Urine Yellow (Yellow); Glucose, Dipstick Normal (Normal); Ketone-Dipstick 5 mg/dl (Negative); Leukocyte Esterase-Dipstick Negative /ul (Negative); Nitrite-Dipstick Negative (Negative); Occult Blood-Urine 150 /ul (Negative); Protein-Dipstick 100 mg/dl (Negative); Urine Bilirubin Dipstick Negative (Negative); Urine Clarity Sl. Cloudy (Clear); Urine Urobilinogen Normal (Normal)
[2021-07-01 22:33] LABS: Fine Granular Cast- Urine 25-50 SEEN /lpf (0-5)
[2021-07-01 22:36] LABS: Red Blood Cells-Urine 25-50 SEEN /hpf (0-5)
[2021-07-01 22:37] LABS: White Blood Cells 0-5 SEEN /hpf (0-5)
[2021-07-01 22:40] LABS: Amorphous Sediment 1+
--- NOTE | 2021-07-01 22:56 | HP.PCM.HOS_ITS ---
HPI - General General Date of Admission: 07/02/21 HPI Narrative JEN MULLINS, is a 81 M with multiple comorbidities came to ER with shortness of breath, cough for 3 to 4 days. As per his , about a week ago he felt very weak on his legs and after that he had 3 to 4 days of 3 times loose bowel movements/diarrhea. About same time is getting progressively short of breath, weak and dry cough. Patient had Pfizer Covid vaccine in January completed second dose. His has been measuring temperature but denies fever or chills. Patient tested positive for COVID-19 here. He also has systemic symptoms of loss of appetite, generalized weakness, muscle aches and pain. [facility] Medical History Anxiety Benign prostate hyperplasia Cardiomyopathy Degenerative disc disease, cervical Dehydration DM2 (diabetes mellitus, type 2) Encephalopathy Fever Former smoker Gout Hairy cell leukemia Heart failure with reduced ejection fraction HTN (hypertension) Left bundle branch block Leukemia Mild cognitive impairment with memory loss Weakness Home Medications atorvastatin 10 mg PO QHS 11/20/15 [History Last Taken 05/26/21 22:00] doxazosin 1 mg PO QHS 11/20/15 [History Last Taken 05/26/21 22:00] metformin 500 mg PO BIDCM 11/20/15 [History Last Taken 05/27/21 08:00] donepezil 10 mg PO QHS 11/28/17 [History Last Taken 05/26/21 22:00] meloxicam 7.5 mg PO DAILY 11/28/17 [History Last Taken 05/27/21 08:00] paroxetine HCl 10 mg PO DAILY 11/28/17 [History Last Taken 05/27/21 08:00] allopurinol [Zyloprim] 300 mg PO DAILY 04/30/18 [History Last Taken 05/27/21 08:00] losartan 25 mg PO DAILY 05/26/21 [History Last Taken 05/27/21 08:00] memantine 5 mg PO BID 05/26/21 [History Last Taken 05/27/21 08:00] tamsulosin 0.4 mg PO DAILY 05/26/21 [History Last Taken 05/27/21 08:00] acetaminophen 1,000 mg PO BID 05/28/21 [History Last Taken 05/27/21 08:00] finasteride 5 mg PO DAILY 07/01/21 [History Last Taken Unknown] Allergy/AdvReac Type Severity Reaction Status Date / Time gabapentin Allergy tremors Verified 05/28/21 01:20 metoprolol [From Toprol XL] Allergy PT UNSURE Verified 05/26/21 03:15 OF REACTION ramipril [From Altace] Allergy PT UNSURE Verified 05/26/21 03:15 OF REACTION Family History Other Cancer Heart disease Surgical History H/O total hip arthroplasty History of appendectomy Hx of splenectomy Social History Smoking Status: Former smoker ROS ROS Narrative Constitutional: Reports fatigue and weakness HEENT: Reports systems reviewed and no addt'l complaints, except as documented Respiratory/Chest: Denies chest pain, but SOB at rest and exertion, as mentioned in HPI Gastrointestinal: Denies coffee ground emesis, hematemesis or vomiting Genitourinary: Denies burning urination or new urinary tract symptoms Musculoskeletal: Generalized muscle aches and pain. Denies joint pain and limited range of motion Neurologic: Denies seizure-like activity skin: No ulcer. No rash Endocrinology: Reports systems reviewed and no addt'l complaints, except as documented Hematologic/Lymphatic: Reports systems reviewed and no addt'l complaints, except as documented Rest 12 ROS are negative except as mentioned in HPI Vital Signs Vital Signs Vital Signs: 07/01/21 19:46 07/01/21 19:52 07/01/21 20:29 Temperature 99.5 F H 99.5 F H Temperature Source Oral Oral Pulse Rate 71 71 Respiratory Rate 27 H 27 H Respiratory Effort Normal Respiratory Pattern Normal Blood Pressure 134/57 H Blood Pressure Mean 82 Pulse Ox 88 93 Oxygen Delivery Method Nasal Cannula Nasal Cannula Oxygen Flow Rate (L/min) 6 6 07/01/21 20:54 07/01/21 20:56 07/01/21 21:21 Temperature 99.5 F H 98.6 F 98.6 F Temperature Source Oral Oral Oral Pulse Rate 71 67 Respiratory Rate 27 H 28 H Respiratory Effort Respiratory Pattern Blood Pressure 134/57 H 139/56 H Blood Pressure Mean 82 83 Pulse Ox 93 92 Oxygen Delivery Method Nasal Cannula Non-Rebreather Oxygen Flow Rate (L/min) 6 15 07/01/21 22:01 07/01/21 22:18 Temperature 98.6 F 98.4 F Temperature Source Oral Oral Pulse Rate 76 87 Respiratory Rate 22 H 22 H Respiratory Effort Respiratory Pattern Blood Pressure 129/68 H 146/65 H Blood Pressure Mean 88 92 Pulse Ox 93 96 Oxygen Delivery Method Non-Rebreather Non-Rebreather Oxygen Flow Rate (L/min) Weight Weight: 154 lb 12.232 oz Body Mass Index (BMI) 24.2 Physical Exam Narrative General: Alert, Oriented x3, Cooperative, short of breath HEENT: Atraumatic, PERRLA, EOMI, Normocephalic Oral: No Gingival or Mucosal Lesions/ Ulcerations. Dry mucosa Neck: Supple, No JVD, Negative Carotid Bruits Lungs: Air entry diminished in bilateral lung bases. Bilateral coarse crepitations and wheezing. Cardiovascular: Regular rate, Regular Rhythm, Normal S1, Normal S2, No murmurs Abdomen: Bowel Sounds Present, Soft, Non Tender, Non-Distended : No renal angle tenderness. No suprapubic tenderness. Extremities: No edema, Capillary Refill Less than 3 Seconds Skin: No rashes, No breakdown Musculoskeletal: No Tenderness to Palpation of Joints or Extremities Neurological: Cranial nerves II-XII grossly intact, DTR 2+/4 and Symmetrical, Neuro grossly intact Psych/Mental Status: Flat affect. Results Lab / Micro Data Result Diagrams: 07/01/21 19:25 07/01/21 19:25 Labs: Laboratory Results - last 24 hr 07/01/21 19:25: WBC 18.9 H, RBC 4.02 L, Hgb 12.2 L, Hct 37.7 L, MCV 93.8, MCH 30.3, MCHC 32.4, RDW Std Deviation 60.5 H, RDW Coeff of Eduarda 17.5 H, Plt Count 246, MPV 11.7, Immature Gran % (Auto) 3.100 H, Neut % (Auto) 89.5 H, Lymph % (Auto) 5.4 L, Wood % (Auto) 1.0, Eos % (Auto) 0.8, Baso % (Auto) 0.2, Absolute Neuts (auto) 16.9 H, Absolute Lymphs (auto) 1.02, Nucleated RBC % 0 07/01/21 19:25: PT 13.3, INR 1.1, APTT 38.4 H 07/01/21 19:25: Sodium 133 L, Potassium 5.7 H, Chloride 101, Carbon Dioxide 2 4.0, Anion Gap 8, BUN 40 H, Creatinine 1.91 H, Estim Creat Clear Calc 29.32, Est GFR (MDRD) Af Amer 44 L, Est GFR (MDRD) Non-Af 36 L, BUN/Creatinine Ratio 20.9 H , Glucose 82, Calcium 8.9, Total Bilirubin 0.60, AST 95 H, ALT 33, Alkaline Phosphatase 114, Total Protein 7.0, Albumin 2.8 L, Globulin 4.2, Albumin/Gl obulin Ratio 0.7 L 07/01/21 20:00: Lactic Acid 1.2 07/01/21 22:12: Urine Color Yellow, Urine Clarity Sl. Cloudy, Urine pH 5.0, Ur Specific [place] 1.020, Urine Protein 100 H, Urine Glucose (UA) Normal, Urine Ketones 5 H, Urine Occult Blood 150 H, Urine Nitrite Negative, Urine Bilirubin Negative, Urine Urobilinogen Normal, Ur Leukocyte Esterase Negative, Urine RBC 25-50 SEEN, Urine WBC 0-5 SEEN, Ur Squamous Epith Cells 0 SEEN, Amorphous Sediment 1+, Urine Bacteria 0 SEEN, Fine Granular Casts 25-50 SEEN, Urine Mucus 0 SEEN Micro: Microbiology 07/01/21 20:58 Mucosa - Nose SARS-CoV-2 Antigen (Rapid) - Final SARS-CoV-2 (COVID 19) Radiology Impression Chest X-Ray 07/01/21 20:10 IMPRESSION: Patchy airspace disease seen throughout the lungs consistent with pneumonia. Asymmetric elevation left hemidiaphragm. Suspect mild vertebral body height loss at T8. Consider thoracic spine x-rays. Postsurgical changes distal cervical spine and surgical clips left upper quadrant. Electronically Signed: Kolby Giraldo DO at 22:10 EDT Tel , Service support , Assessment & Plan Assessment/Plan (1) Acute hypoxemic respiratory failure due to COVID-19: PLAN: This is 72-year-old male being admitted with acute hypoxic respiratory failure secondary to bilateral COVID-19 pneumonia. 1. Acute hypoxic respiratory failure secondary to bilateral COVID-19 pneumonia: Patient is on high flow oxygen in ED. Admit in ICU on AIRVO/NIPPV. Started on Decadron and remdesivir. Inflammatory markers ordered. Awning Hanger and ID consult. 2. MOISES probably prerenal/ATN from Covid infection with hyponatremia and h yperkalemia: Creatinine is 1.91. BUN 40. Sodium 133, potassium 5.7. On IV fluid normal saline at 100 mill per hour. 3. Diabetes mellitus type 2: Accu-Chek insulin coverage with Humalog sliding sc ariana. Glucose is 82. 4. Hypertension and dyslipidemia: Hold ARB secondary to MOISES. Continue atorva statin. 5. Alzheimer's dementia/depression: Patient is on donezepil and memantine continued with holding pattern for lethargy/sedation. Continue Paxil. 5. BPH On Flomax and finasteride. DVT: Heparin 5000 subcutaneous 3 times daily. Living will/advanced directive/end of life care: Patient does have living will or advanced directive. His is power of district attorney for health after discussi on of benefits/risks procedures involved with full code, DNR CC arrest and DNR CC, the patient and his opted for DNR-CC Arrest with no intubation Patient does want artificial life support including intubation, tube feed, ventilator and/chest compression, central venous catheter, vasopressor and DC shock if needed Total time spent in [id number] encounter in discussion of advanced direct dwight 16 minutes. Charges/Coding Visit Charges Inpatient E&M: 21447 Init Hosp L3 Procedures Hospitalists Procedures: 20681 Advncd Care Plan 30 Min
--- NOTE | 2021-07-01 23:07 | CT_ITS ---
HISTORY: Cough, hypoxia, COVID 19+ EXAMINATION: CTA Chest WO/W Contrast Injection TECHNIQUE: Helically acquired images were obtained of the chest following IV contrast as per pulmonary angiogram protocol with 3D reconstructions. A radiation dose optimization technique was used for this scan. IV Contrast dosage and agent: 75mL [id number] COMPARISON: None FINDINGS: LUNGS, PLEURA AND LARGE AIRWAYS: Changes of bullous emphysema. Extensive bilateral groundglass and alveolar opacities with scattered areas of confluence and septal thickening. No large consolidations. No pleural effusion THYROID: No thyroid lesions. PULMONARY ARTERIES: Normal in caliber. No pulmonary embolism. AORTA AND GREAT VESSELS: No aneurysm or dissection. HEART AND PERICARDIUM: Heart size is normal. No pericardial effusion. MEDIASTINUM AND JACQUELYN: No mediastinal or hilar adenopathy. Esophagus is unremarkable. No hiatal hernia. UPPER ABDOMEN: No acute pathology. Spleen absent. Large left renal cyst. BONES: No acute or aggressive abnormality. CT/CTA Chest W/WO Contrast IMPRESSION: Negative CTA Chest. Pulmonary changes of emphysema with superimposed airspace disease, findings consistent with Covid pneumonia. Individualized dose optimization techniques were used for this CT. at 0024 Reported and signed by: Roberth Diez MD Electronically Signed: Roberth Diez MD at 0:23 EDT Tel , Service support ,
[2021-07-02] VITALS (39 sets, daily range): BP systolic 126–184; BP diastolic 56–100; PULSE 53–95; RESP 13–26; TEMP 35.8–37; O2SAT 88–96; BMI 24.3
--- NOTE | 2021-07-02 01:30 | ED.RN ---
PT is not keeping O2 up satisfactorily. Called for Airvo after speaking with Dr. Nunez. Still pending ICU bed.
[2021-07-02 01:51] LABS: Magnesium 2.1 mg/dL (1.6-2.6)
[2021-07-02] MEDS: 0.9% Normal Saline 1,000 ML 100 ML IV (05:05)
[2021-07-02] MEDS: Heparin Injection (Vial) 5,000 UNIT/ML VIAL 5000 UNIT SC (06:03)
[2021-07-02] MEDS: 0.9% Saline Lock 10 ML Syringe IV ×2 (06:10→10:27)
[2021-07-02 06:40] LABS: Absolute Lymphocyte Count 0.75 X10^3/uL (0.83-4.51); Absolute Neutrophil Count 13.5 X10^3/uL (2.0-7.7); Basophil# 0.02 X10^3/uL; Basophil% 0.1 % (0-1); Hematocrit 31.2 % (40-54); Hemoglobin 10.5 g/dL (13.0-16.5); Lymphocyte # 0.75 X10^3/ul (0.83-4.51); Lymphocyte % 5.1 % (19-41); Mean Corp Hgb Conc 33.7 g/dL (32-36); Mean Corpuscular Hgb 30.8 pg (27.0-32.0); Mean Corpuscular Volume 91.5 fL (80-94); Mean Platelet Vol. 11.8 fl (6.2-12.0); Monocyte# 0.08 X10^3/uL; Monocyte% 0.5 % (0-10); NRBC Flagged by Analyzer 0 % (0-5); Neutrophil # 13.47 X10^3/uL (2.7-7.7); Neutrophil % 90.8 % (47-70); POSITIVE MORPHOLOGY YES; Platelet Count 248 K/mm3 (150-450); RBC Distribution Width CV 17.5 % (11.6-14.6); RBC Distribution Width SD 58.4 fl (35.1-43.9); Red Blood Count 3.41 M/mm3 (4.6-6.2); White Blood Count 14.8 K/mm3 (4.4-11.0)
[2021-07-02 06:49] LABS: Differential Indicated SCAN CRITERIA MET
--- NOTE | 2021-07-02 06:49 | CON.PCM.CC_ITS ---
"Assessment & Plan Assessment/Plan (1) Acute hypoxemic respiratory failure due to COVID-19: PLAN: RECOMMENDATIONS: 1. Continue Airvo heated high flow and wean FiO2 to maintain oxygen saturations at or above 90%. 2. Continue remdesivir and Decadron to complete treatment courses. 3. Continue Lovenox twice daily. 4. Stop continuous IV fluids. 5. Encourage incentive spirometer use and mobilize patient as tolerated. IMPRESSIONS: 1. Acute hypoxemic respiratory failure secondary to COVID-19 pneumonia The patient was previously vaccinated in the spring 2020 and presented to the hospital with weakness and dyspnea over the course of the last week. The patient has already been initiated on remdesivir and Decadron, which will be continued. We will monitor liver and renal function accordingly. D-dimer was elevated at 1.96. However, CTA showed no evidence for PE. The patient will be continued on twice daily Lovenox. Plan to continue him on Airvo heated high flow and wean FiO2 to maintain oxygen saturations at or above 90%. 2. Acute kidney injury Likely prerenal in etiology, as the patient has responded to fluid resuscitation. Creatinine has normalized at this time. Will discontinue supplemental IV fluids. Continue to monitor urine output. No current indication for renal replacement therapy. 3. Advanced age/hypertension/hyperlipidemia/Alzheimer's dementia/BPH Complicates care, management, recovery and prognosis. Continue home medications as indicated. This note was generated with [employer] Any[employer] dictation software. It may contain incorrect words, spelling, and punctuation that were not noted in checking the note before signing. HPI Consult Data Date of Consult: 07/02/21 HPI Narrative Reason for Consultation: Acute hypoxemic respiratory failure secondary to COVID- 19 pneumonia HPI Narrative: The patient is a 81-year-old male, with a history as outlined below, who presented to the emergency department via EMS on July 01 with generalized malaise, weakness, diarrhea, decreased p.o. intake, cough and shortness of breath. The patient was recently discharged from the hospital on May 30 after being admitted with gastroenteritis and acute kidney injury due to Campylobacter. The patient does have baseline Alzheimer's dementia. The patient was apparently vaccinated for coronavirus in the spring 2020. On presentation to the emergency department, the patient was noted to have a low-grade fever and was tachypneic. He was otherwise hemodynamically stable. However, the patient was hypoxemic. Initial laboratory evaluation revealed a white blood cell count of 19,000. Chemistry profile was notable for a sodium of 133, potassium of 5.7, BUN of 40 and creatinine of 1.91. Lactate was within normal limits at 1.2. AST was noted to be 95 with an ALT of 33. CTA chest revealed extensive bilateral groundglass opacities with septal thickening. No PE was identified. The patient was initially started on supplemental IV fluid hydration, remdesivir and Decadron. He was admitted to the medical intensive care unit due to his need for high flow supplemental oxygen. [facility] Medical History Anxiety Benign prostate hyperplasia Cardiomyopathy Degenerative disc disease, cervical Dehydration DM2 (diabetes mellitus, type 2) Encephalopathy Fever Former smoker Gout Hairy cell leukemia Heart failure with reduced ejection fraction HTN (hypertension) Left bundle branch block Leukemia Mild cognitive impairment with memory loss Weakness Home Medications atorvastatin 10 mg PO QHS 11/20/15 [History Last Taken 05/26/21 22:00] doxazosin 1 mg PO QHS 11/20/15 [History Last Taken 05/26/21 22:00] metformin 500 mg PO BIDCM 11/20/15 [History Last Taken 05/27/21 08:00] donepezil 10 mg PO QHS 11/28/17 [History Last Taken 05/26/21 22:00] meloxicam 7.5 mg PO DAILY 11/28/17 [History Last Taken 05/27/21 08:00] paroxetine HCl 10 mg PO DAILY 11/28/17 [History Last Taken 05/27/21 08:00] allopurinol [Zyloprim] 300 mg PO DAILY 04/30/18 [History Last Taken 05/27/21 08:00] losartan 25 mg PO DAILY 05/26/21 [History Last Taken 05/27/21 08:00] memantine 5 mg PO BID 05/26/21 [History Last Taken 05/27/21 08:00] tamsulosin 0.4 mg PO DAILY 05/26/21 [History Last Taken 05/27/21 08:00] acetaminophen 1,000 mg PO BID 05/28/21 [History Last Taken 05/27/21 08:00] finasteride 5 mg PO DAILY 07/01/21 [History Last Taken Unknown] Allergy/AdvReac Type Severity Reaction Status Date / Time gabapentin Allergy tremors Verified 05/28/21 01:20 metoprolol [From Toprol XL] Allergy PT UNSURE Verified 05/26/21 03:15 OF REACTION ramipril [From Altace] Allergy PT UNSURE Verified 05/26/21 03:15 OF REACTION Family History Other Cancer Heart disease Surgical History H/O total hip arthroplasty History of appendectomy Hx of splenectomy Social History Smoking Status: Former smoker ROS Constitutional Constitutional: Reports fatigue; Denies chills or fever(s) Eyes Eyes: Denies blurry vision or change in vision ENT HEENT: Denies dizziness, dysphagia, loss taste/smell or nasal congestion Cardiovascular Cardiovascular: Reports dyspnea Respiratory/Chest Respiratory/Chest: Reports dyspnea; Denies chest tightness or cough Gastrointestinal Gastrointestinal: Denies abdominal pain, diarrhea, nausea or vomiting Genitourinary Genitourinary: Denies difficulty urinating Musculoskeletal Musculoskeletal: Denies arthralgias or back pain Integumentary Integumentary: Denies lesions, rash or skin ulcer Neurologic Neurologic: Reports confusion; Denies abnormal gait Psychiatric Psychiatric: Denies anxiety or depression Endocrine Endocrinology: Reports fatigue Hematologic/Lymphatic Hematologic/Lymphatic: Denies easy bleeding or easy bruising Physical Exam Const alert General Appearance: cooperative Orientation / Consciousness: confused HEENT normocephalic and head/scalp atraumatic Eyes PERRL and EOMs intact bilaterally Neck supple General: trachea midline Resp Effort and Inspection: tachypneic Auscultation: diminished lung sounds; Negative for rales, rhonchi or wheezes Cardio regular rate and regular rhythm GI normal to inspection, nondistended, normoactive bowel sounds Extremity no clubbing, cyanosis or edema Skin no rashes or lesions noted Neuro moves all extremities and no focal motor deficits Psych Activity / Motor Behavior: restless Lab / Micro Data Result Diagrams: 07/02/21 06:28 07/02/21 06:28 Labs: Laboratory Results - last 24 hr 07/01/21 19:25: WBC 18.9 H, RBC 4.02 L, Hgb 12.2 L, Hct 37.7 L, MCV 93.8, MCH 30.3, MCHC 32.4, RDW Std Deviation 60.5 H, RDW Coeff of Eduarda 17.5 H, Plt Count 246, MPV 11.7, Immature Gran % (Auto) 3.100 H, Neut % (Auto) 89.5 H, Lymph % (Auto) 5.4 L, [place] % (Auto) 1.0, Eos % (Auto) 0.8, Baso % (Auto) 0.2, Absolute Neuts (auto) 16.9 H, Absolute Lymphs (auto) 1.02, Nucleated RBC % 0 07/01/21 19:25: PT 13.3, INR 1.1, APTT 38.4 H 07/01/21 19:25: Sodium 133 L, Potassium 5.7 H, Chloride 101, Carbon Dioxide 24.0, Anion Gap 8, BUN 40 H, Creatinine 1.91 H, Estim Creat Clear Calc 29.32, Est GFR (MDRD) Af Amer 44 L, Est GFR (MDRD) Non-Af 36 L, BUN/Creatinine Ratio 20.9 H, Glucose 82, Calcium 8.9, Total Bilirubin 0.60, AST 95 H, ALT 33, Alkaline Phosphatase 114, Total Protein 7.0, Albumin 2.8 L, Globulin 4.2, Albumin/Globulin Ratio 0.7 L 07/01/21 19:25: Magnesium 2.1 07/01/21 20:00: Lactic Acid 1.2 07/01/21 22:12: Urine Color Yellow, Urine Clarity Sl. Cloudy, Urine pH 5.0, Ur Specific Scalf 1.020, Urine Protein 100 H, Urine Glucose (UA) Normal, Urine Ketones 5 H, Urine Occult Blood 150 H, Urine Nitrite Negative, Urine Bilirubin Negative, Urine Urobilinogen Normal, Ur Leukocyte Esterase Negative, Urine RBC 25-50 SEEN, Urine WBC 0-5 SEEN, Ur Squamous Epith Cells 0 SEEN, Amorphous Sediment 1+, Urine Bacteria 0 SEEN, Fine Granular Casts 25-50 SEEN, Urine Mucus 0 SEEN 07/02/21 06:28: WBC 14.8 H, RBC 3.41 L, Hgb 10.5 L, Hct 31.2 L, MCV 91.5, MCH 30.8, MCHC 33.7, RDW Std Deviation 58.4 H, RDW Coeff of Eduarda 17.5 H, Plt Count 248, MPV 11.8, Immature Gran % (Auto) 3.500 H, Neut % (Auto) 90.8 H, Lymph % (Auto) 5.1 L, [place] % (Auto) 0.5, Eos % (Auto) 0.0, Baso % (Auto) 0.1, Absolute Neuts (auto) 13.5 H, Absolute Lymphs (auto) 0.75 L, Nucleated RBC % 0 Micro: Microbiology 07/01/21 20:58 Mucosa - Nose SARS-CoV-2 Antigen (Rapid) - Final SARS-CoV-2 (COVID 19) Radiology Impression Chest X-Ray 07/01/21 20:10 IMPRESSION: Patchy airspace disease seen throughout the lungs consistent with pneumonia. Asymmetric elevation left hemidiaphragm. Suspect mild vertebral body height loss at T8. Consider thoracic spine x-rays. Postsurgical changes distal cervical spine and surgical clips left upper quadrant. Electronically Signed: Kolby Giraldo DO at 22:10 EDT Tel , Service support , Chest CTA 07/01/21 23:07 IMPRESSION: Negative CTA Chest. Pulmonary changes of emphysema with superimposed airspace disease, findings consistent with Covid pneumonia. Individualized dose optimization techniques were used for this CT. at 0024 Reported and signed by: Roberth Diez MD Electronically Signed: Roberth Diez MD at 0:23 EDT Tel , Service support , Charges/Coding Visit Charges Inpatient E&M: 47624 Init Hosp L3"
[2021-07-02 06:59] LABS: Fibrinogen 688 mg/dl (203-444)
[2021-07-02 07:04] LABS: D-Dimer Quantitative (DVT/PE) 1.96 FEU/ug/m (0.27-0.49)
[2021-07-02 07:05] LABS: Phosphorus 2.8 mg/dL (2.5-4.9)
[2021-07-02 07:12] LABS: Anisocytosis 1+
[2021-07-02 07:13] LABS: Burr Cells 1+; Hypochromasia 1+
[2021-07-02 07:23] LABS: Anion Gap 10 (5-15); BUN 30 mg/dL (7-18); BUN/Creat Ratio 28.8 RATIO (10-20); CPK Total, Creatine Kinase 120 U/L (39-308); Calcium,Total 7.3 mg/dL (8.5-10.1); Chloride 111 mmol/L (98-107); Creatinine, Serum 1.04 mg/dL (0.70-1.30); EST Glomerular Filtration Rate 73 mL/min (>60); Est Glom Filt Rate - Afr Amer 89 mL/min (>60); Estimated Creatinine Clearance 53.85 ml/min; Glucose 101 mg/dL (74-106); LDH 295 U/L (87-241); Potassium 4.1 mmol/L (3.5-5.1); Sodium Level 140 mmol/L (136-145); Troponin-I HS 29.2 pg/mL (3.0-78.5)
[2021-07-02 07:52] LABS: BNP,B-Type NATRIURETIC PEPTIDE 94.2 pg/mL (0-100)
[2021-07-02 09:20] LABS: Procalcitonin 0.41 ng/mL (0.00-0.09)
[2021-07-02] MEDS: dexAMETHasone 10 MG/ML Vial 6 MG IV (10:21)
[2021-07-02] MEDS: PARoxetine 10 MG Tablet PO (10:21)
[2021-07-02] MEDS: Finasteride 5 MG Tablet PO (10:21)
[2021-07-02] MEDS: Menthol/Lanolin/Calamine/Znox 113 GM Tube 1 APPLIC TOPICAL ×2 (10:21→20:48)
[2021-07-02] MEDS: Memantine Hydrochloride 5 MG Tablet PO ×2 (10:21→20:48)
[2021-07-02] MEDS: Tamsulosin HCl 0.4 MG Capsule PO (10:21)
[2021-07-02] MEDS: Allopurinol 300 MG Tablet PO (10:21)
[2021-07-02] MEDS: Enoxaparin 40 MG/0.4 ML Syringe SC ×2 (12:35→20:48)
--- NOTE | 2021-07-02 14:32 | PCM.PN.HOSP ---
Subjective Subjective Patient is currently resting comfortably in bed on air Vo. States he feels short of breath but appears comfortable at this time. No overnight events. Objective Data Objective Data Vital Signs: Vital Signs Temp Pulse Resp BP Pulse Ox 97.0 F L 87 21 H 181/81 H 93 07/02/21 12:00 07/02/21 14:24 07/02/21 14:24 07/02/21 13:00 07/02/21 14:24 Oxygen Flow Rate (L/min) 60 Oxygen Delivery Method Airvo Weight: 70.42 kg Body Mass Index (BMI) 24.3 Intake & Output: Intake and Output for Last 24 Hours 06/30/21 07/01/21 07/02/21 23:59 23:59 23:59 Intake Total 1237.5 / 1237.5 1212.5 / 1212.5 Output Total 250 / 250 Balance 1237.5 / 1237.5 962.5 / 962.5 Medical Nutrition Assessment Dietitian: Nutrition Therapy Diagnosis Start: 07/02/21 09:48 Freq: Status: Active Protocol: Document 07/02/21 09:57 AG (Rec: 07/02/21 09:57 [id number]) Nutrition Malnutrition Evidence of Malnutrition Exists No Intake Problem Inadequate Oral Intake Etiology r/t decreased appetite, increased oxygen requirements d/t COVID-19 Signs/Symptoms as evidenced by reported decreased appetite 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 Will add 120mL Glucerna ONS w/ meals. If PO intake is poor, will consider liberalizing to regular diet given risk for acute malnutrition. Lab / Micro Data Result Diagrams: 07/02/21 06:28 07/02/21 06:28 Labs: Laboratory Results - last 24 hr 07/01/21 19:25: WBC 18.9 H, RBC 4.02 L, Hgb 12.2 L, Hct 37.7 L, MCV 93.8, MCH 30.3, MCHC 32.4, RDW Std Deviation 60.5 H, RDW Coeff of Eduarda 17.5 H, Plt Count 246, MPV 11.7, Immature Gran % (Auto) 3.100 H, Neut % (Auto) 89.5 H, Lymph % (Auto) 5.4 L, [place] % (Auto) 1.0, Eos % (Auto) 0.8, Baso % (Auto) 0.2, Absolute Neuts (auto) 16.9 H, Absolute Lymphs (auto) 1.02, Nucleated RBC % 0 07/01/21 19:25: PT 13.3, INR 1.1, APTT 38.4 H 07/01/21 19:25: Sodium 133 L, Potassium 5.7 H, Chloride 101, Carbon Dioxide 24.0, Anion Gap 8, BUN 40 H, Creatinine 1.91 H, Estim Creat Clear Calc 29.32, Est GFR (MDRD) Af Amer 44 L, Est GFR (MDRD) Non-Af 36 L, BUN/Creatinine Ratio 20.9 H, Glucose 82, Calcium 8.9, Total Bilirubin 0.60, AST 95 H, ALT 33, Alkaline Phosphatase 114, Total Protein 7.0, Albumin 2.8 L, Globulin 4.2, Albumin/Globulin Ratio 0.7 L 07/01/21 19:25: Magnesium 2.1 07/01/21 20:00: Lactic Acid 1.2 07/01/21 22:12: Urine Color Yellow, Urine Clarity Sl. Cloudy, Urine pH 5.0, Ur Specific [facility] 1.020, Urine Protein 100 H, Urine Glucose (UA) Normal, Urine Ketones 5 H, Urine Occult Blood 150 H, Urine Nitrite Negative, Urine Bilirubin Negative, Urine Urobilinogen Normal, Ur Leukocyte Esterase Negative, Urine RBC 25-50 SEEN, Urine WBC 0-5 SEEN, Ur Squamous Epith Cells 0 SEEN, Amorphous Sediment 1+, Urine Bacteria 0 SEEN, Fine Granular Casts 25-50 SEEN, Urine Mucus 0 SEEN 07/02/21 06:28: Fibrinogen 688 H, D-Dimer Quant (PE/DVT) 1.96 H* 07/02/21 06:28: Sodium 140, Potassium 4.1, Chloride 111 H, Carbon Dioxide 19.0 L, Anion Gap 10, BUN 30 H, Creatinine 1.04, Estim Creat Clear Calc 53.85, Est GFR (MDRD) Af Amer 89, Est GFR (MDRD) Non-Af 73, BUN/Creatinine Ratio 28.8 H, Glucose 101, Calcium 7.3 L, Lactate Dehydrogenase 295 H, Total Creatine Kinase 120, Troponin I High Sens 29.2, C-React Prot Ext Range 259.00 H 08/15/21 06:28: B-Natriuretic Peptide 94.2 07/02/21 06:28: Procalcitonin 0.41 H 07/02/21 06:28: WBC 14.8 H, RBC 3.41 L, Hgb 10.5 L, Hct 31.2 L, MCV 91.5, MCH 30.8, MCHC 33.7, RDW Std Deviation 58.4 H, RDW Coeff of Eduarda 17.5 H, Plt Count 248, MPV 11.8, Immature Gran % (Auto) 3.500 H, Neut % (Auto) 90.8 H, Lymph % (Auto) 5.1 L, [place] % (Auto) 0.5, Eos % (Auto) 0.0, Baso % (Auto) 0.1, Absolute Neuts (auto) 13.5 H, Absolute Lymphs (auto) 0.75 L, Nucleated RBC % 0, Hypochromasia 1+, Anisocytosis 1+, Mauricio Cells 1+ 07/02/21 06:28: Phosphorus 2.8 Micro: Microbiology 07/02/21 05:35 Mucosa - Nasopharyngeal Respiratory Panel (PCR) - Final 07/02/21 07:00 Urine, Random Legionella Antigen - Final 07/02/21 07:00 Urine, Random Streptococcus pneumoniae Antigen (M - Final 07/01/21 20:58 Mucosa - Nose SARS-CoV-2 Antigen (Rapid) - Final SARS-CoV-2 (COVID 19) Radiography Diagnostic Testing: Radiology Impression Chest X-Ray 07/01/21 20:10 IMPRESSION: Patchy airspace disease seen throughout the lungs consistent with pneumonia. Asymmetric elevation left hemidiaphragm. Suspect mild vertebral body height loss at T8. Consider thoracic spine x-rays. Postsurgical changes distal cervical spine and surgical clips left upper quadrant. Electronically Signed: Kolby Giraldo DO at 22:10 EDT Tel , Service support , Chest CTA 07/01/21 23:07 IMPRESSION: Negative CTA Chest. Pulmonary changes of emphysema with superimposed airspace disease, findings consistent with Covid pneumonia. Individualized dose optimization techniques were used for this CT. at 0024 Reported and signed by: Roberth Diez MD Electronically Signed: Roberth Diez MD at 0:23 EDT Tel , Service support , Physical Exam Const alert and no apparent distress Constitutional Narrative: Confused elderly white male sitting up in bed, resting comfortably, on air Vo, patient with dementia at baseline Exam Limitations: other limitations HEENT head/scalp atraumatic and moist oral mucous membranes Head and Scalp: normocephalic Resp normal respiratory effort, no retractions, no use of accessory muscles and clear to auscultation bilaterally Resp Narrative: Diffusely diminished but clear, slight tachypnea Auscultation: Negative for crackles, rales, rhonchi or wheezes Cardio regular rate, regular rhythm, S1 normal heart sound, S2 normal heart sound, no murmurs, no rub, no gallops, no clicks and no JVD GI normal to inspection, nondistended, normoactive bowel sounds, soft to palpation, non-tender and non-distended; Negative for hepatosplenomegaly Extremity normal to inspection and no clubbing, cyanosis or edema Peripheral Pulses: Yes pulses 2+ throughout Skin no rashes or lesions noted, no wounds, skin turgor normal, no jaundice, no petechiae and no mottling Skin Narrative: Skin is pale Neuro CN's II-XII intact bilaterally, moves all extremities and no focal motor deficits Neuro Narrative: Generalized weakness Sensorium / Orientation: awake and alert Speech: speech normal Psych Psych Narrative: Confused but pleasant Assessment & Plan Assessment/Plan (1) Acute hypoxemic respiratory failure due to COVID-19: (2) COVID-19: (3) Encephalopathy acute: (4) Chronic systolic congestive heart failur: (5) Diabetes mellitus type II: (6) Hypertension: (7) Hyperlipidemia: (8) Alzheimer's disease: (9) Hairy cell leukemia, in remission: PLAN: Acute hypoxic respiratory failure secondary to COVID-19 pneumonia -Patient was vaccinated with Pfizer vaccine with second dose completed in January -Symptom onset 3 to 4 days ago--> will need quarantine until 07/19/2021 -Remdesivir day 2 of 5 -Decadron day 2 of 10 -Continue Lovenox twice daily -I-S as able--> may be difficult for patient with dementia -CTA done secondary to elevated D-dimer and was negative for PE but showed significant bilateral scattered ground glass appearance -Lasix 40 mg IV push x1 dose -Pulmonary following appreciate input MOISES -Resolved -IV fluids discontinued -1 dose of IV Lasix -Repeat lab in a.m. DM-2 -Patient is only on home metformin which is on hold at this time -If a.m. blood sugars start to elevate would recommend initiation of Accu-Cheks and sliding scale Hyperlipidemia -Continue atorvastatin Hypertension -Restart home losartan HFrEF -Patient with documented history of an EF of 35% in 2003 and had been following with Dr. Shah -No recent echocardiogram -Monitor for signs of volume overload -Consider echo if deteriorates from a cardiac standpoint History of hairy cell leukemia -in remission BPH -Continue tamoxifen -Continue finasteride Alzheimer's type dementia -Continue Namenda and Aricept DVT prophylaxis -Continue Lovenox 40 mg twice daily CODE STATUS -Full code Charges/Coding Visit Charges Inpatient E&M: 78270 Subs Hosp L2
[2021-07-02] MEDS: CHLORHEXIDINE GLUC 2% CLOTH 1 EACH TOWELETTE TOPICAL (15:52)
[2021-07-02] MEDS: Acetaminophen 325 MG Tablet 650 MG PO (16:13)
[2021-07-02] MEDS: Furosemide 40 MG/4 ML Vial IV (16:13)
[2021-07-02] MEDS: Donepezil HCl 10 MG Tablet PO (20:48)
[2021-07-02] MEDS: Atorvastatin Calcium 10 MG Tablet PO (20:48)
[2021-07-03] VITALS (33 sets, daily range): BP systolic 123–172; BP diastolic 57–114; PULSE 53–85; RESP 12–28; TEMP 36.4–36.7; O2SAT 90–98
[2021-07-03 04:05] LABS: Absolute Lymphocyte Count 0.61 X10^3/uL (0.83-4.51); Absolute Neutrophil Count 12.5 X10^3/uL (2.0-7.7); Basophil# 0.01 X10^3/uL; Basophil% 0.1 % (0-1); Hematocrit 35.4 % (40-54); Hemoglobin 12.2 g/dL (13.0-16.5); Lymphocyte # 0.61 X10^3/ul (0.83-4.51); Lymphocyte % 4.5 % (19-41); Mean Corp Hgb Conc 34.5 g/dL (32-36); Mean Corpuscular Hgb 30.4 pg (27.0-32.0); Mean Corpuscular Volume 88.3 fL (80-94); Mean Platelet Vol. 10.7 fl (6.2-12.0); Monocyte# 0.29 X10^3/uL; Monocyte% 2.1 % (0-10); NRBC Flagged by Analyzer 0 % (0-5); Neutrophil # 12.48 X10^3/uL (2.7-7.7); Neutrophil % 92.3 % (47-70); Platelet Count 302 K/mm3 (150-450); RBC Distribution Width CV 16.8 % (11.6-14.6); RBC Distribution Width SD 54.4 fl (35.1-43.9); Red Blood Count 4.01 M/mm3 (4.6-6.2); White Blood Count 13.5 K/mm3 (4.4-11.0)
[2021-07-03 04:38] LABS: ALB/GLOB Ratio 0.7 RATIO (0.9-2.4); AST(SGOT) 71 U/L (15-37); Alanine Aminotransfer ALT/SGPT 24 U/L (16-61); Albumin, Serum 2.3 g/dL (3.2-5.0); Alkaline Phosphatase 104 U/L (45-117); Anion Gap 9 (5-15); BUN 38 mg/dL (7-18); BUN/Creat Ratio 33.3 RATIO (10-20); Bilirubin, Direct 0.12 mg/dL (0.00-0.30); Calcium,Total 8.8 mg/dL (8.5-10.1); Chloride 108 mmol/L (98-107); Creatinine, Serum 1.14 mg/dL (0.70-1.30); EST Glomerular Filtration Rate 66 mL/min (>60); Est Glom Filt Rate - Afr Amer 80 mL/min (>60); Estimated Creatinine Clearance 49.12 ml/min; Globulin 3.4 g/dL (2.2-4.2); Glucose 148 mg/dL (74-106); Potassium 4.2 mmol/L (3.5-5.1); Protein, Total 5.7 g/dL (6.4-8.2); Sodium Level 139 mmol/L (136-145)
--- NOTE | 2021-07-03 07:29 | PCM.PN.HOSP ---
Subjective Subjective Patient was seen and examined. Remains on Bipap. No acute events overnight. Objective Data Objective Data Vital Signs: Vital Signs Temp Pulse Resp BP Pulse Ox 97.9 F 62 23 H 151/79 H 98 07/03/21 02:00 07/03/21 05:00 07/03/21 05:00 07/03/21 05:00 07/03/21 05:00 Oxygen Flow Rate (L/min) 60 Oxygen Delivery Method Bi-pap Weight: 67.086 kg Body Mass Index (BMI) 24.3 Intake & Output: Intake and Output for Last 24 Hours 07/01/21 07/02/21 07/03/21 23:59 23:59 23:59 Intake Total 1237.5 / 1237.5 2089.17 / 2089.17 250 / 250 Output Total 1450 / 1450 0 / 0 Balance 1237.5 / 1237.5 639.17 / 639.17 250 / 250 Medical Nutrition Assessment Dietitian: Nutrition Therapy Diagnosis Start: 07/02/21 09:48 Freq: Status: Active Protocol: Document 07/02/21 09:57 AG (Rec: 07/02/21 09:57 [id number]) Nutrition Malnutrition Evidence of Malnutrition Exists No Intake Problem Inadequate Oral Intake Etiology r/t decreased appetite, increased oxygen requirements d/t COVID-19 Signs/Symptoms as evidenced by 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 Will add 120mL Glucerna ONS w/ meals. If PO intake is poor, will consider liberalizing to regular diet given risk for acute malnutrition. Lab / Micro Data Result Diagrams: 07/03/21 03:55 07/03/21 03:55 Labs: Laboratory Results - last 24 hr 07/02/21 06:28: B-Natriuretic Peptide 94.2 07/02/21 06:28: Procalcitonin 0.41 H 07/03/21 03:55: Sodium 139, Potassium 4.2, Chloride 108 H, Carbon Dioxide 22.0, Anion Gap 9, BUN 38 H, Creatinine 1.14, Estim Creat Clear Calc 49.12, Est GFR (MDRD) Af Amer 80, Est GFR (MDRD) Non-Af 66, BUN/Creatinine Ratio 33.3 H, Glucose 148 H, Calcium 8.8, Total Bilirubin 0.40, Direct Bilirubin 0.12, AST 71 H, ALT 24, Alkaline Phosphatase 104, Total Protein 5.7 L, Albumin 2.3 L, Globulin 3.4, Albumin/Globulin Ratio 0.7 L 07/03/21 03:55: WBC 13.5 H, RBC 4.01 L, Hgb 12.2 L, Hct 35.4 L, MCV 88.3, MCH 30.4, MCHC 34.5, RDW Std Deviation 54.4 H, RDW Coeff of Eduarda 16.8 H, Plt Count 302, MPV 10.7, Immature Gran % (Auto) 1.000 H, Neut % (Auto) 92.3 H, Lymph % (Auto) 4.5 L, [place] % (Auto) 2.1, Eos % (Auto) 0.0, Baso % (Auto) 0.1, Absolute Neuts (auto) 12.5 H, Absolute Lymphs (auto) 0.61 L, Nucleated RBC % 0 Micro: Microbiology 07/02/21 05:35 Mucosa - Nasopharyngeal Respiratory Panel (PCR) - Final 07/02/21 07:00 Urine, Random Legionella Antigen - Final 07/02/21 07:00 Urine, Random Streptococcus pneumoniae Antigen (M - Final 07/01/21 20:58 Mucosa - Nose SARS-CoV-2 Antigen (Rapid) - Final SARS-CoV-2 (COVID 19) Physical Exam Narrative General: Alert, Oriented x3, Cooperative, on BiPAP HEENT: Atraumatic, PERRLA, EOMI, Normocephalic Oral: No Gingival or Mucosal Lesions/ Ulcerations. Dry mucosa Neck: Supple Lungs: Air entry diminished in bilateral lung bases. Bilateral coarse crepitations and wheezing. Cardiovascular: Regular rate, Regular Rhythm, Normal S1, Normal S2, No murmurs Abdomen: Bowel Sounds Present, Soft, Non Tender, Non-Distended Extremities: No edema Assessment & Plan Assessment/Plan (1) Acute hypoxemic respiratory failure due to COVID-19: (2) COVID-19: (3) Encephalopathy acute: (4) Chronic systolic congestive heart failur: (5) Diabetes mellitus type II: (6) Hypertension: (7) Hyperlipidemia: (8) Alzheimer's disease: (9) Hairy cell leukemia, in remission: PLAN: 1. Acute hypoxic respiratory failure secondary to COVID-19 pneumonia, remains about the same Status post Pfizer vaccine in January Continue on Remdesivir day , Decadron IVday Pulmonology following 2. MOISES, resolved 3. Rest of chronic medical problems -type II DM, hyperlipidemia, hypertension, heart failure with reduced EF, EF 35% Will continue on rest of home meds Charges/Coding Visit Charges Inpatient E&M: 02291 Subs Hosp L3
[2021-07-03] MEDS: Menthol/Lanolin/Calamine/Znox 113 GM Tube 1 APPLIC TOPICAL ×2 (09:43→21:51)
[2021-07-03] MEDS: CHLORHEXIDINE GLUC 2% CLOTH 1 EACH TOWELETTE TOPICAL (09:43)
[2021-07-03] MEDS: Enoxaparin 40 MG/0.4 ML Syringe SC ×2 (09:44→21:51)
[2021-07-03] MEDS: Finasteride 5 MG Tablet PO (09:44)
[2021-07-03] MEDS: PARoxetine 10 MG Tablet PO (09:44)
[2021-07-03] MEDS: dexAMETHasone 10 MG/ML Vial 6 MG IV (09:44)
[2021-07-03] MEDS: Allopurinol 300 MG Tablet PO (09:45)
[2021-07-03] MEDS: Tamsulosin HCl 0.4 MG Capsule PO (09:45)
[2021-07-03] MEDS: Memantine Hydrochloride 5 MG Tablet PO ×2 (09:45→21:51)
[2021-07-03] MEDS: Losartan Potassium 25 MG Tablet PO (09:45)
--- NOTE | 2021-07-03 09:58 | PCM.PN.INT ---
Assessment & Plan Assessment/Plan (1) Acute hypoxemic respiratory failure due to COVID-19: PLAN: RECOMMENDATIONS: 1. Continue Airvo/BiPAP and wean FiO2 to maintain oxygen saturations at or above 90%. We will continue BiPAP with sleep 2. Continue remdesivir and Decadron to complete treatment courses. Monitor liver functions 3. Continue Lovenox twice daily. 4. Stop continuous IV fluids. 5. Encourage incentive spirometer use and mobilize patient as tolerated. IMPRESSIONS: 1. Acute hypoxemic respiratory failure secondary to COVID-19 pneumonia The patient was previously vaccinated in the spring 2020 and presented to the hospital with weakness and dyspnea over the course of the last week. The patient has already been initiated on remdesivir and Decadron, which will be continued. We will monitor liver and renal function accordingly. D-dimer was elevated at 1.96. However, CTA showed no evidence for PE. The patient will be continued on twice daily Lovenox. Rapid improvement after initiation of BiPAP is suggestive of decreased recruitment. Will increase activity and encourage incentive spirometer as tolerated. Mucolytic will be added. Cannot exclude patient will require intubation, especially if he stops tolerating BiPAP rescue. Patient has had a slight increase in LFTs, but not enough to discontinue Remdesivir at this time. 2. Acute kidney injury Likely prerenal in etiology, as the patient has responded to fluid resuscitation. Creatinine has normalized at this time. Will discontinue supplemental IV fluids as this can lead to worsening respiratory status and COVID-19 pneumonia. Continue to monitor urine output. No current indication for renal replacement therapy. 3. Advanced age/hypertension/hyperlipidemia/Alzheimer's dementia/BPH Complicates care, management, recovery and prognosis. Continue home medications as indicated. Despite significant baseline reported dementia, family has elected to remain aggressive at this time. TIME: 35 minutes of critical care time spent addressing patient's acute hypoxic respiratory failure, COVID-19, acute kidney injury, delirium, review of all data and collaboration with care team (8 AM to 9 AM) Subjective Subjective Patient did okay overnight. Patient did have significant hypoxia requiring transition to BiPAP therapy. However, after initiation of BiPAP, patient's FiO2 requirements have improved significantly. Patient is not able to provide much additional information at this time. Objective Data Objective Data Vital Signs: Vital Signs Temp Pulse Resp BP Pulse Ox 36.6 C 62 24 H 160/82 H 97 08/16/21 02:00 07/03/21 08:00 07/03/21 08:00 07/03/21 08:00 07/03/21 08:00 Oxygen Flow Rate (L/min) 60 Oxygen Delivery Method Bi-pap Weight: 67.086 kg Body Mass Index (BMI) 24.3 Intake & Output: Intake and Output for Last 24 Hours 07/01/21 07/02/21 07/03/21 23:59 23:59 23:59 Intake Total 1237.5 / 1237.5 2089.17 / 2089.17 250 / 250 Output Total 1450 / 1450 0 / 0 Balance 1237.5 / 1237.5 639.17 / 639.17 250 / 250 Medical Nutrition Assessment Dietitian: Malnutrition Criteria Met Start: 07/02/21 09:48 Freq: Status: Active Protocol: Document 07/02/21 09:57 AG (Rec: 07/02/21 09:57 AG [id number]) Nutrition Malnutrition Evidence of Malnutrition Exists No Intake Problem Inadequate Oral Intake Etiology r/t decreased appetite, increased oxygen requirements d/t COVID-19 Signs/Symptoms as evidenced by 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 Will add 120mL Glucerna ONS w/ meals. If PO intake is poor, will consider liberalizing to regular diet given risk for acute malnutrition. Lab / Micro Data Result Diagrams: 07/03/21 03:55 07/03/21 03:55 Labs: Laboratory Results - last 24 hr 07/03/21 03:55: Sodium 139, Potassium 4.2, Chloride 108 H, Carbon Dioxide 22.0, Anion Gap 9, BUN 38 H, Creatinine 1.14, Estim Creat Clear Calc 49.12, Est GFR (MDRD) Af Amer 80, Est GFR (MDRD) Non-Af 66, BUN/Creatinine Ratio 33.3 H, Glucose 148 H, Calcium 8.8, Total Bilirubin 0.40, Direct Bilirubin 0.12, AST 71 H, ALT 24, Alkaline Phosphatase 104, Total Protein 5.7 L, Albumin 2.3 L, Globulin 3.4, Albumin/Globulin Ratio 0.7 L 07/03/21 03:55: WBC 13.5 H, RBC 4.01 L, Hgb 12.2 L, Hct 35.4 L, MCV 88.3, MCH 30.4, MCHC 34.5, RDW Std Deviation 54.4 H, RDW Coeff of Eduarda 16.8 H, Plt Count 302, MPV 10.7, Immature Gran % (Auto) 1.000 H, Neut % (Auto) 92.3 H, Lymph % (Auto) 4.5 L, Brule % (Auto) 2.1, Eos % (Auto) 0.0, Baso % (Auto) 0.1, Absolute Neuts (auto) 12.5 H, Absolute Lymphs (auto) 0.61 L, Nucleated RBC % 0 Micro: Microbiology 07/01/21 22:12 Urine, Clean Catch Urine Culture - Preliminary Culture exhibits no growth. 07/02/21 05:35 Mucosa - Nasopharyngeal Respiratory Panel (PCR) - Final 07/02/21 07:00 Urine, Random Legionella Antigen - Final 07/02/21 07:00 Urine, Random Streptococcus pneumoniae Antigen (M - Final 07/01/21 20:58 Mucosa - Nose SARS-CoV-2 Antigen (Rapid) - Final SARS-CoV-2 (COVID 19) Physical Exam Const alert General Appearance: cooperative and on BiPAP Orientation / Consciousness: confused Nutritional Appearance: thin HEENT normocephalic and head/scalp atraumatic Eyes PERRL and EOMs intact bilaterally Neck supple General: trachea midline Chest inspection of chest normal Chest: symmetrical chest wall rise Resp Effort and Inspection: tachypneic Auscultation: diminished lung sounds; Negative for rales, rhonchi or wheezes Cardio regular rate, regular rhythm, no murmurs, no rub and no gallops GI normal to inspection, nondistended, normoactive bowel sounds Extremity no clubbing, cyanosis or edema Skin no rashes or lesions noted Neuro moves all extremities and no focal motor deficits Psych Activity / Motor Behavior: restless Charges/Coding Procedures Hospitalists Procedures: 14817 Critial Care 1st Hr
[2021-07-03 11:36] LABS: Bedside Glucose 141 mg/dL (70-110)
--- NOTE | 2021-07-03 13:50 | CASEMGMT ---
RN CM called for initial transition planning/care coordination assessment as patient is confused and on continous BiPaP. RN CM introduced self and role at [facility]. Annemarie willing to participate in assessment and is able to answer all questions appropriately. Care providers, pharmacy, and demographics verified. wishes for patient to discharge home, with [facility] states she has no further needs or concerns at this time. CM to follow for discharge planning needs that may arise. PCP: PCP retired, had appt with Alex Kim FIRE REGULATOR to get established but had to cancel due to patient being admitted. 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 Per patient is indepenent at home. and patient able to isolate at home and have family to bring groceries and supplies if needed. Transportation: self/ DME/HHC: Patient has shower chair, raised toilet, cane, walker, grab bars at home. has no preference for DME and would like [employer] after list reviewed via phone. Patient is current with [facility] HHC for SN will monitor to add therapy. Patient has previously been to TCU. Disposition Plan: Patient to discharge home with resumption of HHC, family support, and follow-up plans in place. Pascale SANTIAGO, RN, CM
--- NOTE | 2021-07-03 14:56 | PCM.CONS.GEN ---
Assessment & Plan Assessment/Plan (1) COVID-19: PLAN: Sx started around 06/25. (+) vaccine. On dex and remdesivir. CT neg for PE. MOISES resolved. Tocilizumab unavailable. Will follow, thank you. (2) Acute hypoxemic respiratory failure due to COVID-19: HPI Consult Data Date of Consult: 07/03/21 HPI Narrative HPI Narrative: JEN MULLINS, is a 81 M who presented 07/02 with one week fever, chills, cough, SOB, aches, diarrhea, and change in taste. No sick contacts. Has completed covid vaccine. Admitted here on dex and remdesivir after (+) covid test. Feeling better. Full ROS performed and neg except as noted above. [facility] Medical History Anxiety Benign prostate hyperplasia Cardiomyopathy Degenerative disc disease, cervical Dehydration DM2 (diabetes mellitus, type 2) Encephalopathy Fever Former smoker Gout Hairy cell leukemia Heart failure with reduced ejection fraction HTN (hypertension) Left bundle branch block Leukemia Mild cognitive impairment with memory loss Weakness Home Medications atorvastatin 10 mg PO QHS 11/20/15 [History Last Taken 05/26/21 22:00] doxazosin 1 mg PO QHS 11/20/15 [History Last Taken 05/26/21 22:00] metformin 500 mg PO BIDCM 11/20/15 [History Last Taken 05/27/21 08:00] donepezil 10 mg PO QHS 11/28/17 [History Last Taken 05/26/21 22:00] meloxicam 7.5 mg PO DAILY 11/28/17 [History Last Taken 05/27/21 08:00] paroxetine HCl 10 mg PO DAILY 11/28/17 [History Last Taken 05/27/21 08:00] allopurinol [Zyloprim] 300 mg PO DAILY 04/30/18 [History Last Taken 05/27/21 08:00] losartan 25 mg PO DAILY 05/26/21 [History Last Taken 05/27/21 08:00] memantine 5 mg PO BID 05/26/21 [History Last Taken 05/27/21 08:00] tamsulosin 0.4 mg PO DAILY 05/26/21 [History Last Taken 05/27/21 08:00] acetaminophen 1,000 mg PO BID 05/28/21 [History Last Taken 05/27/21 08:00] finasteride 5 mg PO DAILY 07/01/21 [History Last Taken Unknown] Allergy/AdvReac Type Severity Reaction Status Date / Time gabapentin Allergy tremors Verified 05/28/21 01:20 metoprolol [From Toprol XL] Allergy PT UNSURE Verified 05/26/21 03:15 OF REACTION ramipril [From Altace] Allergy PT UNSURE Verified 05/26/21 03:15 OF REACTION Family History Other Cancer Heart disease Surgical History H/O total hip arthroplasty History of appendectomy Hx of splenectomy Social History Smoking Status: Former smoker Physical Exam Const alert General Appearance: cooperative Exam Limitations: no limitations HEENT normocephalic and head/scalp atraumatic Eyes PERRL and EOMs intact bilaterally Neck supple and No nodes Resp Auscultation: diminished lung sounds Cardio Rate: tachycardic GI normal to inspection, nondistended, normoactive bowel sounds Extremity no clubbing, cyanosis or edema Skin no rashes or lesions noted Neuro CN's II-XII intact bilaterally Medical Records Data Medical Nutrition Assessment Dietitian: Malnutrition Criteria Met Start: 07/02/21 09:48 Freq: Status: Active Protocol: Document 07/03/21 10:50 [facility] (Rec: 07/03/21 10:50 [facility] [id number]) Nutrition Malnutrition Evidence of Malnutrition Exists Yes Malnutrition (severe): Acute Illness/Injury Evidenced By Suboptimal Energy Intake ( Severe),Weight Loss (Severe) Intake Problem Inadequate Oral Intake Etiology . Signs/Symptoms . 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 Status Active Problem Recommendation Dietitian Recommendations/Changes Rec continue Consistent carbohydrate, 1800 calorie controlled diet. Will continue 120mL Glucerna ONS w/ meals. If PO intake is poor, will consider liberalizing to regular diet given signs and symptoms of acute malnutrition . Lab / Micro Data Result Diagrams: 07/03/21 03:55 07/03/21 03:55 Labs: Laboratory Results - last 24 hr 07/03/21 03:55: Sodium 139, Potassium 4.2, Chloride 108 H, Carbon Dioxide 22.0, Anion Gap 9, BUN 38 H, Creatinine 1.14, Estim Creat Clear Calc 49.12, Est GFR (MDRD) Af Amer 80, Est GFR (MDRD) Non-Af 66, BUN/Creatinine Ratio 33.3 H, Glucose 148 H, Calcium 8.8, Total Bilirubin 0.40, Direct Bilirubin 0.12, AST 71 H, ALT 24, Alkaline Phosphatase 104, Total Protein 5.7 L, Albumin 2.3 L, Globulin 3.4, Albumin/Globulin Ratio 0.7 L 07/03/21 03:55: WBC 13.5 H, RBC 4.01 L, Hgb 12.2 L, Hct 35.4 L, MCV 88.3, MCH 30.4, MCHC 34.5, RDW Std Deviation 54.4 H, RDW Coeff of Eduarda 16.8 H, Plt Count 302, MPV 10.7, Immature Gran % (Auto) 1.000 H, Neut % (Auto) 92.3 H, Lymph % (Auto) 4.5 L, Beckham % (Auto) 2.1, Eos % (Auto) 0.0, Baso % (Auto) 0.1, Absolute Neuts (auto) 12.5 H, Absolute Lymphs (auto) 0.61 L, Nucleated RBC % 0 07/03/21 11:15: POC Glucose 141 H Micro: Microbiology 07/02/21 07:00 Sputum, Expectorated/Coughed Gram Stain - Final 07/02/21 07:00 Sputum, Expectorated/Coughed Respiratory Culture - Preliminary Appears to be normal respiratory josemanuel. Further studies to follow. 07/01/21 22:12 Urine, Clean Catch Urine Culture - Preliminary Culture exhibits no growth.
[2021-07-03] MEDS: Insulin Lispro 100 UNIT/ML INSULN.PEN SC ×2 (16:22→21:53)
[2021-07-03 16:41] LABS: Bedside Glucose 152 mg/dL (70-110)
[2021-07-03] MEDS: Donepezil HCl 10 MG Tablet PO (21:51)
[2021-07-03] MEDS: Atorvastatin Calcium 10 MG Tablet PO (21:51)
[2021-07-03] MEDS: guaiFENesin 1,200 MG Tablet 1200 MG PO (21:51)
[2021-07-03 22:31] LABS: Bedside Glucose 160 mg/dL (70-110)
[2021-07-04] VITALS (33 sets, daily range): BP systolic 82–173; BP diastolic 62–120; PULSE 32–77; RESP 12–28; TEMP 36.2–36.7; O2SAT 20–98
[2021-07-04 05:50] LABS: Basophil# 0.01 X10^3/uL; Basophil% 0.1 % (0-1); Hematocrit 38.5 % (40-54); Hemoglobin 13.2 g/dL (13.0-16.5); Lymphocyte % 5.6 % (19-41); Mean Corp Hgb Conc 34.3 g/dL (32-36); Mean Corpuscular Hgb 30.4 pg (27.0-32.0); Mean Corpuscular Volume 88.7 fL (80-94); Monocyte# 0.36 X10^3/uL; NRBC Flagged by Analyzer 0 % (0-5); Neutrophil # 7.98 X10^3/uL (2.7-7.7); Neutrophil % 89.9 % (47-70); POSITIVE DIFFERENTIAL YES; Platelet Count 312 K/mm3 (150-450); RBC Distribution Width CV 17.2 % (11.6-14.6); RBC Distribution Width SD 55.9 fl (35.1-43.9); Red Blood Count 4.34 M/mm3 (4.6-6.2); White Blood Count 8.9 K/mm3 (4.4-11.0)
[2021-07-04 05:55] LABS: Differential Indicated SCAN CRITERIA MET
[2021-07-04 06:10] LABS: ALB/GLOB Ratio 0.6 RATIO (0.9-2.4); AST(SGOT) 75 U/L (15-37); Alanine Aminotransfer ALT/SGPT 29 U/L (16-61); Albumin, Serum 2.4 g/dL (3.2-5.0); Alkaline Phosphatase 104 U/L (45-117); Anion Gap 6 (5-15); BUN 42 mg/dL (7-18); BUN/Creat Ratio 41.2 RATIO (10-20); Calcium,Total 9.1 mg/dL (8.5-10.1); Chloride 111 mmol/L (98-107); Creatinine, Serum 1.02 mg/dL (0.70-1.30); EST Glomerular Filtration Rate 75 mL/min (>60); Est Glom Filt Rate - Afr Amer 91 mL/min (>60); Globulin 3.7 g/dL (2.2-4.2); Glucose 160 mg/dL (74-106); Potassium 5.2 mmol/L (3.5-5.1); Protein, Total 6.1 g/dL (6.4-8.2); Sodium Level 140 mmol/L (136-145)
[2021-07-04 06:47] LABS: Differential Comment SCANNED
--- NOTE | 2021-07-04 07:55 | PCM.PN.INT ---
Assessment & Plan Assessment/Plan (1) Acute hypoxemic respiratory failure due to COVID-19: PLAN: RECOMMENDATIONS: 1. Continue Airvo/BiPAP and wean FiO2 to maintain oxygen saturations at or above 90%. We will continue BiPAP with sleep 2. Continue remdesivir and Decadron to complete treatment courses. Monitor liver functions 3. Continue Lovenox twice daily. 4. Attempt to limit IV fluids. P.o. intake as tolerated on Airvo 5. Encourage incentive spirometer use and mobilize patient as tolerated. IMPRESSIONS: 1. Acute hypoxemic respiratory failure secondary to COVID-19 pneumonia The patient was previously vaccinated in the spring 2020 and presented to the hospital with weakness and dyspnea over the course of the last week. The patient has already been initiated on remdesivir and Decadron, which will be continued. We will monitor liver and renal function accordingly. D-dimer was elevated at 1.96. However, CTA showed no evidence for PE. The patient will be continued on twice daily Lovenox. Rapid improvement after initiation of BiPAP is suggestive of decreased recruitment. Will increase activity and encourage incentive spirometer as tolerated. Mucolytic added yesterday. Cannot exclude patient will require intubation, especially if he stops tolerating BiPAP rescue. Patient has had a slight increase in LFTs, but not enough to discontinue Remdesivir at this time. We will continue to monitor appropriate labs. 2. Acute kidney injury Improving. Likely prerenal in etiology, as the patient has responded to fluid resuscitation. Creatinine has normalized at this time. Will discontinue supplemental IV fluids as this can lead to worsening respiratory status and COVID-19 pneumonia. Continue to monitor urine output. No current indication for renal replacement therapy. 3. Advanced age/hypertension/hyperlipidemia/Alzheimer's dementia/BPH Complicates care, management, recovery and prognosis. Continue home medications as indicated. Despite significant baseline reported dementia, family has elected to remain aggressive at this time. TIME: 32 minutes of critical care time spent addressing patient's acute hypoxic respiratory failure, COVID-19, acute kidney injury, delirium, review of all data and collaboration with care team (6:45 AM to 7:45 AM) Subjective Subjective Patient did okay overnight. Patient has been on BiPAP while sleeping and Airvo during the day. Patient continues to have confusion, but is compliant with BiPAP. No acute events were reported by nursing. Objective Data Objective Data Vital Signs: Vital Signs Temp Pulse Resp BP Pulse Ox 36.2 C L 58 L 26 H 160/84 H 97 07/04/21 04:00 07/04/21 07:48 07/04/21 07:15 07/04/21 07:00 07/04/21 07:15 Oxygen Flow Rate (L/min) 60 Oxygen Delivery Method Bi-pap Weight: 67.086 kg Body Mass Index (BMI) 24.3 Intake & Output: Intake and Output for Last 24 Hours 07/02/21 07/03/21 07/04/21 23:59 23:59 23:59 Intake Total 2089.17 / 2089.17 500 / 500 250 / 250 Output Total 1450 / 1450 400 / 400 Balance 639.17 / 639.17 100 / 100 250 / 250 Medical Nutrition Assessment Dietitian: Malnutrition Criteria Met Start: 07/02/21 09:48 Freq: Status: Active Protocol: Document 07/03/21 10:50 SLA (Rec: 07/03/21 10:50 SLA [id number]) Nutrition Malnutrition Evidence of Malnutrition Exists Yes Malnutrition (severe): Acute Illness/Injury Evidenced By Suboptimal Energy Intake ( Severe),Weight Loss (Severe) Intake Problem Inadequate Oral Intake Etiology . Signs/Symptoms . 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 Status Active Problem Recommendation Dietitian Recommendations/Changes Rec continue Consistent carbohydrate, 1800 calorie controlled diet. Will continue 120mL Glucerna ONS w/ meals. If PO intake is poor, will consider liberalizing to regular diet given signs and symptoms of acute malnutrition . Lab / Micro Data Result Diagrams: 07/04/21 05:40 07/04/21 05:40 Labs: Laboratory Results - last 24 hr 07/03/21 11:15: POC Glucose 141 H 07/03/21 16:17: POC Glucose 152 H 07/03/21 21:53: POC Glucose 160 H 07/04/21 05:40: WBC 8.9, RBC 4.34 L, Hgb 13.2, Hct 38.5 L, MCV 88.7, MCH 30.4, MCHC 34.3, RDW Std Deviation 55.9 H, RDW Coeff of Eduarda 17.2 H, Plt Count 312, MPV 10.0, Immature Gran % (Auto) 0.400, Neut % (Auto) 89.9 H, Lymph % (Auto) 5.6 L, Churchill % (Auto) 4.0, Eos % (Auto) 0.0, Baso % (Auto) 0.1, Absolute Neuts (auto) 8.0 H, Absolute Lymphs (auto) 0.50 L, Nucleated RBC % 0, Differential Comment SCANNED 07/04/21 05:40: Sodium 140, Potassium 5.2 H, Chloride 111 H, Carbon Dioxide 23.0, Anion Gap 6, BUN 42 H, Creatinine 1.02, Estim Creat Clear Calc 54.90, Est GFR (MDRD) Af Amer 91, Est GFR (MDRD) Non-Af 75, BUN/Creatinine Ratio 41.2 H, Glucose 160 H, Calcium 9.1, Total Bilirubin 0.60, AST 75 H, ALT 29, Alkaline Phosphatase 104, Total Protein 6.1 L, Albumin 2.4 L, Globulin 3.7, Albumin/Globulin Ratio 0.6 L Micro: Microbiology 07/02/21 07:00 Sputum, Expectorated/Coughed Gram Stain - Final 07/02/21 07:00 Sputum, Expectorated/Coughed Respiratory Culture - Preliminary Appears to be normal respiratory josemanuel. Further studies to follow. 07/01/21 22:12 Urine, Clean Catch Urine Culture - Preliminary Culture exhibits no growth. 07/02/21 05:35 Mucosa - Nasopharyngeal Respiratory Panel (PCR) - Final 07/02/21 07:00 Urine, Random Legionella Antigen - Final 07/02/21 07:00 Urine, Random Streptococcus pneumoniae Antigen (M - Final 07/01/21 20:58 Mucosa - Nose SARS-CoV-2 Antigen (Rapid) - Final SARS-CoV-2 (COVID 19) Physical Exam Const Constitutional Narrative: Sleeping on my evaluation General Appearance: cooperative and on BiPAP Orientation / Consciousness: confused Nutritional Appearance: thin HEENT normocephalic and head/scalp atraumatic Eyes PERRL and EOMs intact bilaterally Neck supple General: trachea midline Chest inspection of chest normal Chest: symmetrical chest wall rise Resp Effort and Inspection: tachypneic Auscultation: diminished lung sounds; Negative for rales, rhonchi or wheezes Cardio regular rate, regular rhythm, no murmurs, no rub and no gallops GI normal to inspection, nondistended, normoactive bowel sounds Extremity no clubbing, cyanosis or edema Skin no rashes or lesions noted Neuro moves all extremities and no focal motor deficits Psych Activity / Motor Behavior: restless Charges/Coding Procedures Hospitalists Procedures: 45004 Critial Care 1st Hr
[2021-07-04] MEDS: dexAMETHasone 10 MG/ML Vial 6 MG IV (08:59)
[2021-07-04] MEDS: Enoxaparin 40 MG/0.4 ML Syringe SC ×2 (09:01→21:00)
[2021-07-04] MEDS: Insulin Lispro 100 UNIT/ML INSULN.PEN SC ×3 (09:41→21:01)
[2021-07-04] MEDS: Menthol/Lanolin/Calamine/Znox 113 GM Tube 1 APPLIC TOPICAL ×2 (09:41→21:00)
[2021-07-04] MEDS: guaiFENesin 1,200 MG Tablet 1200 MG PO ×2 (09:42→21:00)
[2021-07-04] MEDS: Memantine Hydrochloride 5 MG Tablet PO ×2 (09:42→21:00)
[2021-07-04] MEDS: Allopurinol 300 MG Tablet PO (09:42)
[2021-07-04] MEDS: Losartan Potassium 50 MG Tablet PO (09:42)
[2021-07-04] MEDS: Tamsulosin HCl 0.4 MG Capsule PO (09:42)
[2021-07-04] MEDS: PARoxetine 10 MG Tablet PO (09:42)
[2021-07-04] MEDS: Finasteride 5 MG Tablet PO (09:43)
--- NOTE | 2021-07-04 10:11 | PCM.PN.HOSP ---
Subjective Subjective Patient was seen and examined. He is Airvo 60 L. He denied any new complaints. He is alert oriented to self and time but not to place Objective Data Objective Data Vital Signs: Vital Signs Temp Pulse Resp BP Pulse Ox 97.2 F L 58 L 26 H 160/84 H 97 07/04/21 04:00 07/04/21 07:48 07/04/21 07:15 07/04/21 07:00 07/04/21 07:15 Oxygen Flow Rate (L/min) 60 Oxygen Delivery Method Bi-pap Weight: 67.086 kg Body Mass Index (BMI) 24.3 Intake & Output: Intake and Output for Last 24 Hours 07/02/21 07/03/21 07/04/21 23:59 23:59 23:59 Intake Total 2089.17 / 2089.17 500 / 500 250 / 250 Output Total 1450 / 1450 400 / 400 Balance 639.17 / 639.17 100 / 100 250 / 250 Medical Nutrition Assessment Dietitian: Malnutrition Criteria Met Start: 07/02/21 09:48 Freq: Status: Active Protocol: Document 07/03/21 10:50 SLA (Rec: 07/03/21 10:50 SLA [id number]) Nutrition Malnutrition Evidence of Malnutrition Exists Yes Malnutrition (severe): Acute Illness/Injury Evidenced By Suboptimal Energy Intake ( Severe),Weight Loss (Severe) Intake Problem Inadequate Oral Intake Etiology . Signs/Symptoms . 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 Status Active Problem Recommendation Dietitian Recommendations/Changes Rec continue Consistent carbohydrate, 1800 calorie controlled diet. Will continue 120mL Glucerna ONS w/ meals. If PO intake is poor, will consider liberalizing to regular diet given signs and symptoms of acute malnutrition . Lab / Micro Data Result Diagrams: 07/04/21 05:40 07/04/21 05:40 Labs: Laboratory Results - last 24 hr 07/03/21 11:15: POC Glucose 141 H 07/03/21 16:17: POC Glucose 152 H 07/03/21 21:53: POC Glucose 160 H 07/04/21 05:40: WBC 8.9, RBC 4.34 L, Hgb 13.2, Hct 38.5 L, MCV 88.7, MCH 30.4, MCHC 34.3, RDW Std Deviation 55.9 H, RDW Coeff of Eduarda 17.2 H, Plt Count 312, MPV 10.0, Immature Gran % (Auto) 0.400, Neut % (Auto) 89.9 H, Lymph % (Auto) 5.6 L, [place] % (Auto) 4.0, Eos % (Auto) 0.0, Baso % (Auto) 0.1, Absolute Neuts (auto) 8.0 H, Absolute Lymphs (auto) 0.50 L, Nucleated RBC % 0, Differential Comment SCANNED 07/04/21 05:40: Sodium 140, Potassium 5.2 H, Chloride 111 H, Carbon Dioxide 23.0, Anion Gap 6, BUN 42 H, Creatinine 1.02, Estim Creat Clear Calc 54.90, Est GFR (MDRD) Af Amer 91, Est GFR (MDRD) Non-Af 75, BUN/Creatinine Ratio 41.2 H, Glucose 160 H, Calcium 9.1, Total Bilirubin 0.60, AST 75 H, ALT 29, Alkaline Phosphatase 104, Total Protein 6.1 L, Albumin 2.4 L, Globulin 3.7, Albumin/Globulin Ratio 0.6 L Micro: Microbiology 07/01/21 20:20 Blood Culture (Wb) - Left Wrist Blood Culture - Preliminary No growth in 48 hours. 07/01/21 20:10 Blood Culture (Wb) - Anticubital Left Blood Culture - Preliminary No growth in 48 hours. 07/02/21 07:00 Sputum, Expectorated/Coughed Gram Stain - Final 07/02/21 07:00 Sputum, Expectorated/Coughed Respiratory Culture - Final 07/01/21 22:12 Urine, Clean Catch Urine Culture - Final Culture exhibits no growth. 07/02/21 05:35 Mucosa - Nasopharyngeal Respiratory Panel (PCR) - Final 07/02/21 07:00 Urine, Random Legionella Antigen - Final 07/02/21 07:00 Urine, Random Streptococcus pneumoniae Antigen (M - Final 07/01/21 20:58 Mucosa - Nose SARS-CoV-2 Antigen (Rapid) - Final SARS-CoV-2 (COVID 19) Physical Exam Narrative General: Alert, Oriented x3, Cooperative, on Airvo HEENT: Atraumatic, PERRLA, EOMI, Normocephalic Oral: Dry mucosa Neck: Supple Lungs: Air entry diminished in bilateral lung bases. Bilateral coarse crepitations and wheezing. Cardiovascular: Regular rate, Regular Rhythm, Normal S1, Normal S2, No murmurs Abdomen: Bowel Sounds Present, Soft, Non Tender, Non-Distended Extremities: No edema Assessment & Plan Assessment/Plan (1) Acute hypoxemic respiratory failure due to COVID-19: (2) COVID-19: (3) Encephalopathy acute: (4) Chronic systolic congestive heart failur: (5) Diabetes mellitus type II: (6) Hypertension: (7) Hyperlipidemia: (8) Alzheimer's disease: (9) Hairy cell leukemia, in remission: PLAN: 1. Acute hypoxic respiratory failure secondary to COVID-19 pneumonia, remains about the same Status post Pfizer vaccine in January Continue on Remdesivir day 3 of 5, Decadron IV day 4 of 10 Pulmonology following 2. MOISES, resolved 3. Hypertension, slightly uncontrolled, will increase losartan to 50 mg daily 4. Rest of chronic medical problems -type II DM, hyperlipidemia,heart failure with reduced EF, EF 35% Will continue on rest of home meds Charges/Coding Visit Charges Inpatient E&M: 20352 Subs Hosp L3
[2021-07-04] MEDS: CHLORHEXIDINE GLUC 2% CLOTH 1 EACH TOWELETTE TOPICAL (11:23)
[2021-07-04 12:46] LABS: Bedside Glucose 171 mg/dL (70-110)
--- NOTE | 2021-07-04 16:16 | CASEMGMT ---
Palliative screening tool completed for [facility] 3. Patient does not meets criteria for palliative consult at this time.
[2021-07-04 17:21] LABS: Bedside Glucose 143 mg/dL (70-110)
[2021-07-04] MEDS: Atorvastatin Calcium 10 MG Tablet PO (21:00)
[2021-07-04] MEDS: Donepezil HCl 10 MG Tablet PO (21:00)
[2021-07-04 21:11] LABS: Bedside Glucose 168 mg/dL (70-110)
[2021-07-05] VITALS (35 sets, daily range): BP systolic 102–174; BP diastolic 50–87; PULSE 44–85; RESP 12–26; TEMP 36.1–36.6; O2SAT 90–98
[2021-07-05 05:26] LABS: Absolute Lymphocyte Count 0.41 X10^3/uL (0.83-4.51); Absolute Neutrophil Count 7.5 X10^3/uL (2.0-7.7); Basophil# 0.01 X10^3/uL; Basophil% 0.1 % (0-1); Hematocrit 35.4 % (40-54); Hemoglobin 12.1 g/dL (13.0-16.5); Lymphocyte # 0.41 X10^3/ul (0.83-4.51); Mean Corp Hgb Conc 34.2 g/dL (32-36); Mean Corpuscular Hgb 30.6 pg (27.0-32.0); Mean Corpuscular Volume 89.4 fL (80-94); Mean Platelet Vol. 10.9 fl (6.2-12.0); Monocyte# 0.26 X10^3/uL; Monocyte% 3.2 % (0-10); NRBC Flagged by Analyzer 0 % (0-5); Neutrophil % 91.1 % (47-70); POSITIVE DIFFERENTIAL YES; POSITIVE MORPHOLOGY YES; Platelet Count 359 K/mm3 (150-450); RBC Distribution Width CV 17.2 % (11.6-14.6); RBC Distribution Width SD 56.2 fl (35.1-43.9); Red Blood Count 3.96 M/mm3 (4.6-6.2); White Blood Count 8.2 K/mm3 (4.4-11.0)
[2021-07-05 05:31] LABS: Differential Indicated SCAN CRITERIA MET
[2021-07-05 05:42] LABS: ALB/GLOB Ratio 0.7 RATIO (0.9-2.4); AST(SGOT) 51 U/L (15-37); Alanine Aminotransfer ALT/SGPT 27 U/L (16-61); Albumin, Serum 2.4 g/dL (3.2-5.0); Alkaline Phosphatase 104 U/L (45-117); Anion Gap 4 (5-15); BUN 44 mg/dL (7-18); BUN/Creat Ratio 43.1 RATIO (10-20); Chloride 112 mmol/L (98-107); Creatinine, Serum 1.02 mg/dL (0.70-1.30); EST Glomerular Filtration Rate 75 mL/min (>60); Est Glom Filt Rate - Afr Amer 91 mL/min (>60); Estimated Creatinine Clearance 54.43 ml/min; Globulin 3.3 g/dL (2.2-4.2); Glucose 179 mg/dL (74-106); Potassium 4.6 mmol/L (3.5-5.1); Protein, Total 5.7 g/dL (6.4-8.2); Sodium Level 142 mmol/L (136-145)
[2021-07-05 05:46] LABS: Differential Comment SCANNED
--- NOTE | 2021-07-05 07:26 | PCM.PN.HOSP ---
Subjective Subjective Patient was seen and examined. Remains on BiPAP and Air Vo. No other acute events overnight Objective Data Objective Data Vital Signs: Vital Signs Temp Pulse Resp BP Pulse Ox 97 F L 48 L 20 H 141/78 H 92 07/05/21 00:00 07/05/21 07:17 07/05/21 07:17 07/05/21 07:00 07/05/21 07:17 Oxygen Flow Rate (L/min) 60 Oxygen Delivery Method Bi-pap Weight: 65.529 kg Body Mass Index (BMI) 24.3 Intake & Output: Intake and Output for Last 24 Hours 07/03/21 07/04/21 07/05/21 23:59 23:59 23:59 Intake Total 500 / 500 856 / 856 Output Total 400 / 400 Balance 100 / 100 856 / 856 Medical Nutrition Assessment Dietitian: Malnutrition Criteria Met Start: 07/02/21 09:48 Freq: Status: Active Protocol: Document 07/03/21 10:50 SLA (Rec: 07/03/21 10:50 SLA [id number]) Nutrition Malnutrition Evidence of Malnutrition Exists Yes Malnutrition (severe): Acute Illness/Injury Evidenced By Suboptimal Energy Intake ( Severe),Weight Loss (Severe) Intake Problem Inadequate Oral Intake Etiology . Signs/Symptoms . 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 Will continue 120mL Glucerna ONS w/ meals. If PO intake is poor, will consider liberalizing to regular diet given signs and symptoms of acute malnutrition . Lab / Micro Data Result Diagrams: 07/05/21 05:15 07/05/21 05:15 Labs: Laboratory Results - last 24 hr 07/04/21 12:22: POC Glucose 171 H 07/04/21 16:57: POC Glucose 143 H 07/04/21 20:59: POC Glucose 168 H 07/05/21 05:15: WBC 8.2, RBC 3.96 L, Hgb 12.1 L, Hct 35.4 L, MCV 89.4, MCH 30.6, MCHC 34.2, RDW Std Deviation 56.2 H, RDW Coeff of Eduarda 17.2 H, Plt Count 359, MPV 10.9, Immature Gran % (Auto) 0.600, Neut % (Auto) 91.1 H, Lymph % (Auto) 5.0 L, [place] % (Auto) 3.2, Eos % (Auto) 0.0, Baso % (Auto) 0.1, Absolute Neuts (auto) 7.5, Absolute Lymphs (auto) 0.41 L, Nucleated RBC % 0, Differential Comment SCANNED 07/05/21 05:15: Sodium 142, Potassium 4.6, Chloride 112 H, Carbon Dioxide 26.0, Anion Gap 4 L, BUN 44 H, Creatinine 1.02, Estim Creat Clear Calc 54.43, Est GFR (MDRD) Af Amer 91, Est GFR (MDRD) Non-Af 75, BUN/Creatinine Ratio 43.1 H, Glucose 179 H, Calcium 9.0, Total Bilirubin 0.50, AST 51 H, ALT 27, Alkaline Phosphatase 104, Total Protein 5.7 L, Albumin 2.4 L, Globulin 3.3, Albumin/Globulin Ratio 0.7 L Micro: Microbiology 07/01/21 20:20 Blood Culture (Wb) - Left Wrist Blood Culture - Preliminary No growth in 48 hours. 07/01/21 20:10 Blood Culture (Wb) - Anticubital Left Blood Culture - Preliminary No growth in 48 hours. 07/02/21 07:00 Sputum, Expectorated/Coughed Gram Stain - Final 07/02/21 07:00 Sputum, Expectorated/Coughed Respiratory Culture - Final 07/01/21 22:12 Urine, Clean Catch Urine Culture - Final Culture exhibits no growth. 07/02/21 05:35 Mucosa - Nasopharyngeal Respiratory Panel (PCR) - Final 07/02/21 07:00 Urine, Random Legionella Antigen - Final 07/02/21 07:00 Urine, Random Streptococcus pneumoniae Antigen (M - Final 07/01/21 20:58 Mucosa - Nose SARS-CoV-2 Antigen (Rapid) - Final SARS-CoV-2 (COVID 19) Physical Exam Narrative General: Alert, Oriented x3, Cooperative, on Bipap HEENT: Atraumatic, PERRLA, EOMI, Normocephalic Oral: Dry mucosa Neck: Supple Lungs: Air entry diminished in bilateral lung bases. Bilateral coarse crepitations and wheezing. Cardiovascular: Regular rate, Regular Rhythm, Normal S1, Normal S2, No murmurs Abdomen: Bowel Sounds Present, Soft, Non Tender, Non-Distended Extremities: No edema Const Constitutional Narrative: Confused elderly white male sitting up in bed, resting comfortably, on air Vo, patient with dementia at baseline HEENT head/scalp atraumatic and moist oral mucous membranes Skin Skin Narrative: Skin is pale Neuro Neuro Narrative: Generalized weakness Psych Psych Narrative: Confused but pleasant Assessment & Plan Assessment/Plan (1) Acute hypoxemic respiratory failure due to COVID-19: (2) COVID-19: (3) Encephalopathy acute: (4) Chronic systolic congestive heart failur: (5) Diabetes mellitus type II: (6) Hypertension: (7) Hyperlipidemia: (8) Alzheimer's disease: (9) Hairy cell leukemia, in remission: PLAN: 1. Acute hypoxic respiratory failure secondary to COVID-19 pneumonia, remains about the same Status post Pfizer vaccine in January Continue on Remdesivir day 3 of , Decadron IV day 4 of 10 Pulmonology following 2. MOISES, resolved, secondary to prerenal causes from COVID; ATN ruled out in this admission 3. Hypertension, controlled, continue losartan 50 mg daily 4. Rest of chronic medical problems -type II DM, hyperlipidemia,heart failure with reduced EF, EF 35% Will continue on rest of home meds Charges/Coding Visit Charges Inpatient E&M: 70963 Subs Hosp L2
--- NOTE | 2021-07-05 07:45 | PN.CC_ITS ---
Assessment & Plan Assessment/Plan (1) Acute hypoxemic respiratory failure due to COVID-19: PLAN: RECOMMENDATIONS: 1. Continue Airvo/BiPAP and wean FiO2 to maintain oxygen saturations at or above 90%. We will continue BiPAP with sleep 2. Continue remdesivir and Decadron to complete treatment courses. Monitor liver functions 3. Continue Lovenox twice daily. 4. Attempt to limit IV fluids. P.o. intake as tolerated on Airvo. Challenge with diuretics 5. Encourage incentive spirometer use and mobilize patient as tolerated. IMPRESSIONS: 1. Acute hypoxemic respiratory failure secondary to COVID-19 pneumonia The patient was previously vaccinated in the spring 2020 and presented to the hospital with weakness and dyspnea over the course of the last week. The patient has already been initiated on remdesivir and Decadron, which will be continued. We will monitor liver and renal function accordingly. D-dimer was elevated at 1.96. However, CTA showed no evidence for PE. The patient will be continued on low-dose twice daily Lovenox. Rapid improvement after initiation of BiPAP is suggestive of decreased recruitment. Will increase activity and encourage incentive spirometer as tolerated. Mucolytic added yesterday. Cannot exclude patient will require intubation, especially if he stops tolerating BiPAP rescue. Patient has had a slight increase in LFTs, but not enough to discontinue Remdesivir at this time. We will continue to monitor appropriate labs. We will challenge patient with Lasix 2. Acute kidney injury Improving. Likely prerenal in etiology, as the patient has responded to fluid resuscitation. Creatinine has normalized at this time. Will discontinue supplemental IV fluids as this can lead to worsening respiratory status and COVID-19 pneumonia. Continue to monitor urine output. No current indication for renal replacement therapy. 3. Advanced age/hypertension/hyperlipidemia/Alzheimer's dementia/BPH Complicates care, management, recovery and prognosis. Continue home medications as indicated. Despite significant baseline reported dementia, family has elected to remain aggressive at this time. Subjective Subjective Patient did okay overnight. Patient was able to tolerate BiPAP while sleeping, but is still on Airvo during the day and 93% FiO2. Patient with no complaints this morning, but does remain confused and oriented only to self. Patient did have some bradycardia overnight, but this was all sinus without associated hypotension. Objective Data Objective Data Vital Signs: Vital Signs Temp Pulse Resp BP Pulse Ox 36.1 C L 44 L 20 H 141/78 H 92 07/05/21 00:00 07/05/21 07:42 07/05/21 07:17 07/05/21 07:00 07/05/21 07:17 Oxygen Flow Rate (L/min) 60 Oxygen Delivery Method Bi-pap Weight: 65.529 kg Body Mass Index (BMI) 24.3 Intake & Output: Intake and Output for Last 24 Hours 07/03/21 07/04/21 07/05/21 23:59 23:59 23:59 Intake Total 500 / 500 856 / 856 Output Total 400 / 400 Balance 100 / 100 856 / 856 Medical Nutrition Assessment Dietitian: Malnutrition Criteria Met Start: 07/02/21 09:48 Freq: Status: Active Protocol: Document 07/03/21 10:50 SLA (Rec: 07/03/21 10:50 SLA [id number]) Nutrition Malnutrition Evidence of Malnutrition Exists Yes Malnutrition (severe): Acute Illness/Injury Evidenced By Suboptimal Energy Intake ( Severe),Weight Loss (Severe) Intake Problem Inadequate Oral Intake Etiology . Signs/Symptoms . 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 Will continue 120mL Glucerna ONS w/ meals. If PO intake is poor, will consider liberalizing to regular diet given signs and symptoms of acute malnutrition . Lab / Micro Data Result Diagrams: 07/05/21 05:15 07/05/21 05:15 Labs: Laboratory Results - last 24 hr 07/04/21 12:22: POC Glucose 171 H 07/04/21 16:57: POC Glucose 143 H 07/04/21 20:59: POC Glucose 168 H 07/05/21 05:15: WBC 8.2, RBC 3.96 L, Hgb 12.1 L, Hct 35.4 L, MCV 89.4, MCH 30.6, MCHC 34.2, RDW Std Deviation 56.2 H, RDW Coeff of Eduarda 17.2 H, Plt Count 359, MPV 10.9, Immature Gran % (Auto) 0.600, Neut % (Auto) 91.1 H, Lymph % (Auto) 5.0 L, [place] % (Auto) 3.2, Eos % (Auto) 0.0, Baso % (Auto) 0.1, Absolute Neuts (auto) 7.5, Absolute Lymphs (auto) 0.41 L, Nucleated RBC % 0, Differential Comment SCANNED 07/05/21 05:15: Sodium 142, Potassium 4.6, Chloride 112 H, Carbon Dioxide 26.0, Anion Gap 4 L, BUN 44 H, Creatinine 1.02, Estim Creat Clear Calc 54.43, Est GFR (MDRD) Af Amer 91, Est GFR (MDRD) Non-Af 75, BUN/Creatinine Ratio 43.1 H, Glucose 179 H, Calcium 9.0, Total Bilirubin 0.50, AST 51 H, ALT 27, Alkaline Phosphatase 104, Total Protein 5.7 L, Albumin 2.4 L, Globulin 3.3, Albumin/Globulin Ratio 0.7 L Micro: Microbiology 07/01/21 20:20 Blood Culture (Wb) - Left Wrist Blood Culture - Preliminary No growth in 48 hours. 07/01/21 20:10 Blood Culture (Wb) - Anticubital Left Blood Culture - Preliminary No growth in 48 hours. 07/02/21 07:00 Sputum, Expectorated/Coughed Gram Stain - Final 07/02/21 07:00 Sputum, Expectorated/Coughed Respiratory Culture - Final 07/01/21 22:12 Urine, Clean Catch Urine Culture - Final Culture exhibits no growth. 07/02/21 05:35 Mucosa - Nasopharyngeal Respiratory Panel (PCR) - Final 07/02/21 07:00 Urine, Random Legionella Antigen - Final 07/02/21 07:00 Urine, Random Streptococcus pneumoniae Antigen (M - Final 07/01/21 20:58 Mucosa - Nose SARS-CoV-2 Antigen (Rapid) - Final SARS-CoV-2 (COVID 19) Physical Exam Const alert Constitutional Narrative: Sleeping on my evaluation General Appearance: cooperative and on BiPAP Orientation / Consciousness: confused Nutritional Appearance: thin HEENT normocephalic and head/scalp atraumatic Eyes PERRL and EOMs intact bilaterally Neck supple General: trachea midline Chest inspection of chest normal Chest: symmetrical chest wall rise Resp Effort and Inspection: tachypneic Auscultation: diminished lung sounds; Negative for rales, rhonchi or wheezes Cardio regular rate, regular rhythm, no murmurs, no rub and no gallops GI normal to inspection, nondistended, normoactive bowel sounds Extremity no clubbing, cyanosis or edema Skin no rashes or lesions noted Neuro moves all extremities and no focal motor deficits Psych Activity / Motor Behavior: restless Charges/Coding Visit Charges Inpatient E&M: 69759 Subs Hosp L3
[2021-07-05] MEDS: Enoxaparin 40 MG/0.4 ML Syringe SC ×2 (08:26→20:56)
[2021-07-05] MEDS: dexAMETHasone 10 MG/ML Vial 6 MG IV (08:28)
[2021-07-05] MEDS: Furosemide 40 MG/4 ML Vial IV (08:29)
[2021-07-05] MEDS: 0.9% Saline Lock 10 ML Syringe IV ×2 (08:30→20:57)
[2021-07-05] MEDS: guaiFENesin 1,200 MG Tablet 1200 MG PO ×2 (08:31→20:56)
[2021-07-05] MEDS: Allopurinol 300 MG Tablet PO (08:31)
[2021-07-05] MEDS: Memantine Hydrochloride 5 MG Tablet PO ×2 (08:32→20:56)
[2021-07-05] MEDS: Finasteride 5 MG Tablet PO (08:32)
[2021-07-05] MEDS: PARoxetine 10 MG Tablet PO (08:32)
[2021-07-05] MEDS: Tamsulosin HCl 0.4 MG Capsule PO (08:32)
[2021-07-05] MEDS: Losartan Potassium 50 MG Tablet PO (08:32)
[2021-07-05] MEDS: Insulin Lispro 100 UNIT/ML INSULN.PEN SC ×4 (08:35→20:59)
[2021-07-05] MEDS: CHLORHEXIDINE GLUC 2% CLOTH 1 EACH TOWELETTE TOPICAL (08:36)
[2021-07-05] MEDS: Menthol/Lanolin/Calamine/Znox 113 GM Tube 1 APPLIC TOPICAL ×2 (08:36→20:57)
--- NOTE | 2021-07-05 11:03 | PCS.PANDOC ---
PANDEMIC DOCUMENTATION INITIATED: Date: 07/03/2021 Time: 190
[2021-07-05] MEDS: Senna/Docusate Sodium 1 Tablet 2 TABLET PO (11:53)
[2021-07-05 11:56] LABS: Bedside Glucose 245 mg/dL (70-110)
--- NOTE | 2021-07-05 13:45 | CASEMGMT ---
LW and Healthcare POA forms both scanned into summary tab of pending sale to [facility], Annemarie is listed as healthcare POA. BRANDIE Dumont
--- NOTE | 2021-07-05 14:03 | CASEMGMT ---
SW called to offer support. states is not feeling too bad, she also has COVID, but is managing. She states she is having trouble sleeping at night. We spoke about difficulty having in hospital and she cannot visit, support given. She states that they have been for 58 years. She states her daughter is in [employer] teaching and she calls for updates, having a tough time with the unknown. understands though from physician that there is no cure. also brought up that she knows pt will not be able to return home, and will need rehab. SW explained when we get a little closer to that, SW will assist in finding a facility that takes their insurance and takes COVID patients. plans to be part of rounds tomorrow via phone, SW explained will be part of that and will speak w/her in rounds tomorrow. BRANDIE Dumont
[2021-07-05 15:46] LABS: Bedside Glucose 198 mg/dL (70-110)
[2021-07-05] MEDS: Atorvastatin Calcium 10 MG Tablet PO (20:56)
[2021-07-05] MEDS: Acetaminophen 325 MG Tablet 650 MG PO (20:56)
[2021-07-05] MEDS: Donepezil HCl 10 MG Tablet PO (20:56)
[2021-07-05 21:21] LABS: Bedside Glucose 189 mg/dL (70-110)
[2021-07-06] VITALS (32 sets, daily range): BP systolic 103–164; BP diastolic 72–110; PULSE 46–81; RESP 12–25; TEMP 35.9–36.8; O2SAT 87–97
[2021-07-06 05:41] LABS: Absolute Lymphocyte Count 0.46 X10^3/uL (0.83-4.51); Absolute Neutrophil Count 9.4 X10^3/uL (2.0-7.7); Basophil# 0.01 X10^3/uL; Basophil% 0.1 % (0-1); Hematocrit 38.3 % (40-54); Hemoglobin 12.9 g/dL (13.0-16.5); Lymphocyte # 0.46 X10^3/ul (0.83-4.51); Lymphocyte % 4.4 % (19-41); Mean Corp Hgb Conc 33.7 g/dL (32-36); Mean Corpuscular Hgb 30.1 pg (27.0-32.0); Mean Corpuscular Volume 89.3 fL (80-94); Mean Platelet Vol. 11.4 fl (6.2-12.0); Monocyte# 0.41 X10^3/uL; NRBC Flagged by Analyzer 0.2 % (0-5); Neutrophil % 90.8 % (47-70); POSITIVE COUNT YES; POSITIVE DIFFERENTIAL YES; Platelet Count 352 K/mm3 (150-450); RBC Distribution Width CV 17.2 % (11.6-14.6); RBC Distribution Width SD 56.4 fl (35.1-43.9); Red Blood Count 4.29 M/mm3 (4.6-6.2); White Blood Count 10.4 K/mm3 (4.4-11.0)
[2021-07-06 05:42] LABS: Differential Indicated SCAN CRITERIA MET
[2021-07-06 06:05] LABS: ALB/GLOB Ratio 0.8 RATIO (0.9-2.4); AST(SGOT) 37 U/L (15-37); Alanine Aminotransfer ALT/SGPT 29 U/L (16-61); Albumin, Serum 2.7 g/dL (3.2-5.0); Alkaline Phosphatase 113 U/L (45-117); Anion Gap 6 (5-15); BUN 51 mg/dL (7-18); Calcium,Total 9.1 mg/dL (8.5-10.1); Chloride 109 mmol/L (98-107); Creatinine, Serum 1.16 mg/dL (0.70-1.30); EST Glomerular Filtration Rate 65 mL/min (>60); Est Glom Filt Rate - Afr Amer 78 mL/min (>60); Estimated Creatinine Clearance 46.88 ml/min; Globulin 3.5 g/dL (2.2-4.2); Glucose 160 mg/dL (74-106); Protein, Total 6.2 g/dL (6.4-8.2); Sodium Level 142 mmol/L (136-145)
[2021-07-06 06:15] LABS: Differential Comment SCANNED
--- NOTE | 2021-07-06 07:05 | PN.CC_ITS ---
Assessment & Plan Assessment/Plan (1) Acute hypoxemic respiratory failure due to COVID-19: PLAN: RECOMMENDATIONS: 1. Continue Airvo/BiPAP and wean FiO2 to maintain oxygen saturations at or above 90%. We will continue BiPAP with sleep 2. Completed remdesivir. Continue Decadron to complete treatment courses. Monitor liver functions 3. Continue Lovenox twice daily. 4. Attempt to limit IV fluids. P.o. intake as tolerated on Airvo. Challenge with diuretics today 5. Encourage incentive spirometer use and mobilize patient as tolerated. IMPRESSIONS: 1. Acute hypoxemic respiratory failure secondary to COVID-19 pneumonia The patient was previously vaccinated in the spring 2020 and presented to the hospital with weakness and dyspnea over the course of the last week. The patient has already been initiated on remdesivir and Decadron, which will be continued. We will monitor liver and renal function accordingly. D-dimer was elevated at 1.96. However, CTA showed no evidence for PE. The patient will be continued on low-dose twice daily Lovenox. Rapid improvement after initiation of BiPAP is suggestive of decreased recruitment. Will increase activity and encourage incentive spirometer as tolerated. Mucolytic added yesterday. Cannot exclude patient will require intubation, especially if he stops tolerating BiPAP rescue. Patient has had a slight increase in LFTs, but has completed Remdesivir at this time. We will continue to monitor appropriate labs. We will challenge patient with Lasix 2. Acute kidney injury Improving. Likely prerenal in etiology, as the patient has responded to fluid resuscitation. Creatinine has normalized at this time. Will discontinue supplemental IV fluids as this can lead to worsening respiratory status and COVID-19 pneumonia. Continue to monitor urine output. No current indication for renal replacement therapy. 3. Advanced age/hypertension/hyperlipidemia/Alzheimer's dementia/BPH Complicates care, management, recovery and prognosis. Continue home medications as indicated. Despite significant baseline reported dementia, family has elected to remain aggressive at this time. Subjective Subjective Patient did okay overnight. Patient did have 3 bowel movements reported by nursing and was more confused. Patient was not tolerating the BiPAP as well as he has in the past. However, on my evaluation, patient was very pleasant and stated that he felt well. Patient did report that he was generalized cold, but improved after warm blanket. Patient had good BiPAP synchrony on my evaluation. Objective Data Objective Data Vital Signs: Vital Signs Temp Pulse Resp BP Pulse Ox 36.8 C 54 L 22 H 149/76 H 93 07/06/21 04:00 07/06/21 07:00 07/06/21 07:00 07/06/21 07:00 07/06/21 07:00 Oxygen Flow Rate (L/min) 88 Oxygen Delivery Method Bi-pap Weight: 64.183 kg Body Mass Index (BMI) 24.3 Intake & Output: Intake and Output for Last 24 Hours 07/04/21 07/05/21 07/06/21 23:59 23:59 23:59 Intake Total 856 / 856 386 / 506 370 / 370 Output Total 200 / 450 450 / 450 Balance 856 / 856 186 / 56 -80 / -80 Medical Nutrition Assessment Dietitian: Malnutrition Criteria Met Start: 07/02/21 09:48 Freq: Status: Active Protocol: Document 07/03/21 10:50 SLA (Rec: 07/03/21 10:50 SLA [id number]) Nutrition Malnutrition Evidence of Malnutrition Exists Yes Malnutrition (severe): Acute Illness/Injury Evidenced By Suboptimal Energy Intake ( Severe),Weight Loss (Severe) Intake Problem Inadequate Oral Intake Etiology . Signs/Symptoms . 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 Status Active Problem Recommendation Dietitian Recommendations/Changes Rec continue Consistent carbohydrate, 1800 calorie controlled diet. Will continue 120mL Glucerna ONS w/ meals. If PO intake is poor, will consider liberalizing to regular diet given signs and symptoms of acute malnutrition . Lab / Micro Data Result Diagrams: 07/06/21 05:20 07/06/21 05:20 Labs: Laboratory Results - last 24 hr 07/05/21 11:51: POC Glucose 245 H 07/05/21 15:42: POC Glucose 198 H 07/05/21 20:59: POC Glucose 189 H 07/06/21 05:20: WBC 10.4, RBC 4.29 L, Hgb 12.9 L, Hct 38.3 L, MCV 89.3, MCH 30.1, MCHC 33.7, RDW Std Deviation 56.4 H, RDW Coeff of Eduarda 17.2 H, Plt Count 352, MPV 11.4, Immature Gran % (Auto) 0.700, Neut % (Auto) 90.8 H, Lymph % (Auto) 4.4 L, [place] % (Auto) 4.0, Eos % (Auto) 0.0, Baso % (Auto) 0.1, Absolute Neuts (auto) 9.4 H, Absolute Lymphs (auto) 0.46 L, Nucleated RBC % 0.2, Differential Comment SCANNED 07/06/21 05:20: Sodium 142, Potassium 4.0, Chloride 109 H, Carbon Dioxide 27.0, Anion Gap 6, BUN 51 H, Creatinine 1.16, Estim Creat Clear Calc 46.88, Est GFR (MDRD) Af Amer 78, Est GFR (MDRD) Non-Af 65, BUN/Creatinine Ratio 44.0 H, Glucose 160 H, Calcium 9.1, Total Bilirubin 0.70, AST 37, ALT 29, Alkaline Phosphatase 113, Total Protein 6.2 L, Albumin 2.7 L, Globulin 3.5, Albumin/Globulin Ratio 0.8 L Micro: Microbiology 07/01/21 20:20 Blood Culture (Wb) - Left Wrist Blood Culture - Preliminary No growth in 48 hours. 07/01/21 20:10 Blood Culture (Wb) - Anticubital Left Blood Culture - Preliminary No growth in 48 hours. 07/02/21 07:00 Sputum, Expectorated/Coughed Gram Stain - Final 07/02/21 07:00 Sputum, Expectorated/Coughed Respiratory Culture - Final 07/01/21 22:12 Urine, Clean Catch Urine Culture - Final Culture exhibits no growth. 07/02/21 05:35 Mucosa - Nasopharyngeal Respiratory Panel (PCR) - Final 07/02/21 07:00 Urine, Random Legionella Antigen - Final 07/02/21 07:00 Urine, Random Streptococcus pneumoniae Antigen (M - Final 07/01/21 20:58 Mucosa - Nose SARS-CoV-2 Antigen (Rapid) - Final SARS-CoV-2 (COVID 19) Physical Exam Const alert Constitutional Narrative: Good BiPAP synchrony noted. Greeted me when I walked through the store. General Appearance: cooperative and on BiPAP Orientation / Consciousness: confused Nutritional Appearance: thin HEENT normocephalic and head/scalp atraumatic Eyes PERRL and EOMs intact bilaterally Neck supple General: trachea midline Chest inspection of chest normal Chest: symmetrical chest wall rise Resp Effort and Inspection: tachypneic Auscultation: diminished lung sounds; Negative for rales, rhonchi or wheezes Cardio regular rate, regular rhythm, no murmurs, no rub and no gallops GI normal to inspection, nondistended, normoactive bowel sounds Extremity no clubbing, cyanosis or edema Skin no rashes or lesions noted Neuro moves all extremities and no focal motor deficits Psych Activity / Motor Behavior: restless Charges/Coding Visit Charges Inpatient E&M: 11654 Subs Hosp L3
--- NOTE | 2021-07-06 08:12 | PCM.PN.HOSP ---
Subjective Subjective Patient was seen and examined. No new events. He remains on Airvo and Bipap. Objective Data Objective Data Vital Signs: Vital Signs Temp Pulse Resp BP Pulse Ox 98.3 F 49 L 22 H 149/76 H 93 07/06/21 04:00 07/06/21 07:00 07/06/21 07:00 07/06/21 07:00 07/06/21 07:00 Oxygen Flow Rate (L/min) 88 Oxygen Delivery Method Bi-pap Weight: 64.183 kg Body Mass Index (BMI) 24.3 Intake & Output: Intake and Output for Last 24 Hours 07/04/21 07/05/21 07/06/21 23:59 23:59 23:59 Intake Total 856 / 856 386 / 506 370 / 370 Output Total 200 / 450 450 / 450 Balance 856 / 856 186 / 56 -80 / -80 Medical Nutrition Assessment Dietitian: Malnutrition Criteria Met Start: 07/02/21 09:48 Freq: Status: Active Protocol: Document 07/03/21 10:50 SLA (Rec: 07/03/21 10:50 SLA [id number]) Nutrition Malnutrition Evidence of Malnutrition Exists Yes Malnutrition (severe): Acute Illness/Injury Evidenced By Suboptimal Energy Intake ( Severe),Weight Loss (Severe) Intake Problem Inadequate Oral Intake Etiology . Signs/Symptoms . 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 Status Active Problem Recommendation Dietitian Recommendations/Changes Rec continue Consistent carbohydrate, 1800 calorie controlled diet. Will continue 120mL Glucerna ONS w/ meals. If PO intake is poor, will consider liberalizing to regular diet given signs and symptoms of acute malnutrition . Lab / Micro Data Result Diagrams: 07/06/21 05:20 07/06/21 05:20 Labs: Laboratory Results - last 24 hr 07/05/21 11:51: POC Glucose 245 H 07/05/21 15:42: POC Glucose 198 H 07/05/21 20:59: POC Glucose 189 H 07/06/21 05:20: WBC 10.4, RBC 4.29 L, Hgb 12.9 L, Hct 38.3 L, MCV 89.3, MCH 30.1, MCHC 33.7, RDW Std Deviation 56.4 H, RDW Coeff of Eduarda 17.2 H, Plt Count 352, MPV 11.4, Immature Gran % (Auto) 0.700, Neut % (Auto) 90.8 H, Lymph % (Auto) 4.4 L, [place] % (Auto) 4.0, Eos % (Auto) 0.0, Baso % (Auto) 0.1, Absolute Neuts (auto) 9.4 H, Absolute Lymphs (auto) 0.46 L, Nucleated RBC % 0.2, Differential Comment SCANNED 07/06/21 05:20: Sodium 142, Potassium 4.0, Chloride 109 H, Carbon Dioxide 27.0, Anion Gap 6, BUN 51 H, Creatinine 1.16, Estim Creat Clear Calc 46.88, Est GFR (MDRD) Af Amer 78, Est GFR (MDRD) Non-Af 65, BUN/Creatinine Ratio 44.0 H, Glucose 160 H, Calcium 9.1, Total Bilirubin 0.70, AST 37, ALT 29, Alkaline Phosphatase 113, Total Protein 6.2 L, Albumin 2.7 L, Globulin 3.5, Albumin/Globulin Ratio 0.8 L Micro: Microbiology 07/01/21 20:20 Blood Culture (Wb) - Left Wrist Blood Culture - Preliminary No growth in 48 hours. 07/01/21 20:10 Blood Culture (Wb) - Anticubital Left Blood Culture - Preliminary No growth in 48 hours. 07/02/21 07:00 Sputum, Expectorated/Coughed Gram Stain - Final 07/02/21 07:00 Sputum, Expectorated/Coughed Respiratory Culture - Final 07/01/21 22:12 Urine, Clean Catch Urine Culture - Final Culture exhibits no growth. 07/02/21 05:35 Mucosa - Nasopharyngeal Respiratory Panel (PCR) - Final 07/02/21 07:00 Urine, Random Legionella Antigen - Final 07/02/21 07:00 Urine, Random Streptococcus pneumoniae Antigen (M - Final 07/01/21 20:58 Mucosa - Nose SARS-CoV-2 Antigen (Rapid) - Final SARS-CoV-2 (COVID 19) Physical Exam Narrative General: Alert, Oriented x3, Cooperative, on Airvo HEENT: Atraumatic, PERRLA, EOMI, Normocephalic Oral: Dry mucosa Neck: Supple Lungs: Air entry diminished in bilateral lung bases. Bilateral coarse crepitations and wheezing. Cardiovascular: Regular rate, Regular Rhythm, Normal S1, Normal S2, No murmurs Abdomen: Bowel Sounds Present, Soft, Non Tender, Non-Distended Extremities: No edema Assessment & Plan Assessment/Plan (1) Acute hypoxemic respiratory failure due to COVID-19: (2) COVID-19: (3) Encephalopathy acute: (4) Chronic systolic congestive heart failur: (5) Diabetes mellitus type II: (6) Hypertension: (7) Hyperlipidemia: (8) Alzheimer's disease: (9) Hairy cell leukemia, in remission: PLAN: 1. Acute hypoxic respiratory failure secondary to COVID-19 pneumonia, remains about the same Status post Pfizer vaccine in January Completed Remdesivir, Decadron IV day 5 of 10 Pulmonology following 2. MOISES, resolved, secondary to prerenal causes from COVID; ATN ruled out in this admission 3. Hypertension, controlled, continue losartan 50 mg daily 4. Rest of chronic medical problems -type II DM, hyperlipidemia,heart failure with reduced EF, EF 35% Will continue on rest of home meds Charges/Coding Visit Charges Inpatient E&M: 16034 Subs Hosp L3
[2021-07-06] MEDS: Furosemide 40 MG/4 ML Vial IV (08:47)
[2021-07-06] MEDS: Menthol/Lanolin/Calamine/Znox 113 GM Tube 1 APPLIC TOPICAL ×2 (08:48→21:20)
[2021-07-06] MEDS: Memantine Hydrochloride 5 MG Tablet PO ×2 (08:48→21:01)
[2021-07-06] MEDS: Losartan Potassium 50 MG Tablet PO (08:48)
[2021-07-06] MEDS: Allopurinol 300 MG Tablet PO (08:48)
[2021-07-06] MEDS: CHLORHEXIDINE GLUC 2% CLOTH 1 EACH TOWELETTE TOPICAL (08:48)
[2021-07-06] MEDS: guaiFENesin 1,200 MG Tablet 1200 MG PO ×2 (08:48→21:01)
[2021-07-06] MEDS: Tamsulosin HCl 0.4 MG Capsule PO (08:48)
[2021-07-06] MEDS: PARoxetine 10 MG Tablet PO (08:49)
[2021-07-06] MEDS: Enoxaparin 40 MG/0.4 ML Syringe SC ×2 (08:49→21:01)
[2021-07-06] MEDS: dexAMETHasone 10 MG/ML Vial 6 MG IV (08:49)
[2021-07-06] MEDS: Finasteride 5 MG Tablet PO (08:49)
[2021-07-06 09:06] LABS: Bedside Glucose 132 mg/dL (70-110)
[2021-07-06] MEDS: Insulin Lispro 100 UNIT/ML INSULN.PEN SC ×3 (12:01→21:11)
[2021-07-06 12:26] LABS: Bedside Glucose 181 mg/dL (70-110)
[2021-07-06] MEDS: Acetaminophen 325 MG Tablet 650 MG PO (13:20)
[2021-07-06 16:55] LABS: Bedside Glucose 169 mg/dL (70-110)
[2021-07-06] MEDS: Donepezil HCl 10 MG Tablet PO (21:01)
[2021-07-06] MEDS: Atorvastatin Calcium 10 MG Tablet PO (21:01)
[2021-07-06 21:50] LABS: Bedside Glucose 180 mg/dL (70-110)
[2021-07-07] VITALS (30 sets, daily range): BP systolic 93–145; BP diastolic 46–98; PULSE 49–79; RESP 12–23; TEMP 35.7–36.6; O2SAT 89–97
[2021-07-07 03:52] LABS: Absolute Lymphocyte Count 0.59 X10^3/uL (0.83-4.51); Absolute Neutrophil Count 8.9 X10^3/uL (2.0-7.7); Basophil# 0.02 X10^3/uL; Basophil% 0.2 % (0-1); Hematocrit 39.3 % (40-54); Hemoglobin 13.3 g/dL (13.0-16.5); Lymphocyte # 0.59 X10^3/ul (0.83-4.51); Lymphocyte % 5.9 % (19-41); Mean Corp Hgb Conc 33.8 g/dL (32-36); Mean Corpuscular Hgb 30.3 pg (27.0-32.0); Mean Corpuscular Volume 89.5 fL (80-94); Mean Platelet Vol. 11.6 fl (6.2-12.0); Monocyte# 0.34 X10^3/uL; Monocyte% 3.4 % (0-10); NRBC Flagged by Analyzer 0.2 % (0-5); Neutrophil # 8.93 X10^3/uL (2.7-7.7); POSITIVE DIFFERENTIAL YES; POSITIVE MORPHOLOGY YES; Platelet Count 399 K/mm3 (150-450); RBC Distribution Width SD 55.8 fl (35.1-43.9); Red Blood Count 4.39 M/mm3 (4.6-6.2); White Blood Count 9.9 K/mm3 (4.4-11.0)
[2021-07-07 03:53] LABS: Differential Indicated SCAN CRITERIA MET
[2021-07-07 04:08] LABS: ALB/GLOB Ratio 0.8 RATIO (0.9-2.4); AST(SGOT) 28 U/L (15-37); Alanine Aminotransfer ALT/SGPT 27 U/L (16-61); Albumin, Serum 2.6 g/dL (3.2-5.0); Alkaline Phosphatase 104 U/L (45-117); Anion Gap 5 (5-15); BUN 55 mg/dL (7-18); BUN/Creat Ratio 49.1 RATIO (10-20); Calcium,Total 9.1 mg/dL (8.5-10.1); Chloride 107 mmol/L (98-107); Creatinine, Serum 1.12 mg/dL (0.70-1.30); EST Glomerular Filtration Rate 67 mL/min (>60); Est Glom Filt Rate - Afr Amer 81 mL/min (>60); Estimated Creatinine Clearance 48.55 ml/min; Globulin 3.2 g/dL (2.2-4.2); Glucose 128 mg/dL (74-106); Potassium 4.3 mmol/L (3.5-5.1); Protein, Total 5.8 g/dL (6.4-8.2); Sodium Level 140 mmol/L (136-145)
[2021-07-07 04:17] LABS: Differential Comment SCANNED
[2021-07-07 04:18] LABS: Anisocytosis RARE; Microcytosis RARE
--- NOTE | 2021-07-07 07:30 | PCM.PN.INT ---
Assessment & Plan Assessment/Plan (1) Acute hypoxemic respiratory failure due to COVID-19: PLAN: RECOMMENDATIONS: 1. Continue Airvo/BiPAP and wean FiO2 to maintain oxygen saturations at or above 90%. We will continue BiPAP with sleep 2. Completed remdesivir. Continue Decadron to complete treatment courses. Monitor liver functions 3. Continue Lovenox twice daily. 4. Attempt to limit IV fluids. P.o. intake as tolerated on Airvo. Challenge with diuretics today 5. Encourage incentive spirometer use and mobilize patient as tolerated. IMPRESSIONS: 1. Acute hypoxemic respiratory failure secondary to COVID-19 pneumonia The patient was previously vaccinated in the spring 2020 and presented to the hospital with weakness and dyspnea over the course of the last week. The patient has already been initiated on remdesivir and Decadron, which will be continued. We will monitor liver and renal function accordingly. D-dimer was elevated at 1.96. However, CTA showed no evidence for PE. The patient will be continued on low-dose twice daily Lovenox. Rapid improvement after initiation of BiPAP is suggestive of decreased recruitment. Will increase activity and encourage incentive spirometer as tolerated. Patient appears to be slowly improving. Optimistic that intubation may not be necessary as long as patient can comply with nocturnal BiPAP. We will continue with diuresis as allowed by daily labs. 2. Acute kidney injury Resolved. Likely prerenal in etiology, as the patient has responded to fluid resuscitation. Creatinine has normalized at this time. Will discontinue supplemental IV fluids as this can lead to worsening respiratory status and COVID-19 pneumonia. Continue to monitor urine output. No current indication for renal replacement therapy. 3. Advanced age/hypertension/hyperlipidemia/Alzheimer's dementia/BPH Complicates care, management, recovery and prognosis. Continue home medications as indicated. Despite significant baseline reported dementia, family has elected to remain aggressive at this time. Subjective Subjective Patient did okay overnight. Patient still with intermittent confusion, but readily directable. Patient is reporting increased appetite this morning. Patient has been able to be weaned on supplemental oxygen. Patient does continue to have a cough. Objective Data Objective Data Vital Signs: Vital Signs Temp Pulse Resp BP Pulse Ox 36.2 C L 56 L 19 H 119/98 H 89 07/07/21 04:00 07/07/21 06:00 07/07/21 06:00 07/07/21 06:00 07/07/21 06:39 Oxygen Flow Rate (L/min) 60 Oxygen Delivery Method Bi-pap Weight: 64.183 kg Body Mass Index (BMI) 24.3 Intake & Output: Intake and Output for Last 24 Hours 07/05/21 07/06/21 07/07/21 23:59 23:59 23:59 Intake Total 386 / 506 370 / 370 Output Total 200 / 450 850 / 850 400 / 400 Balance 186 / 56 -480 / -480 -400 / -400 Medical Nutrition Assessment Dietitian: Malnutrition Criteria Met Start: 07/02/21 09:48 Freq: Status: Active Protocol: Document 07/06/21 10:44 AG (Rec: 07/06/21 10:44 AG [id number]) Nutrition Malnutrition Evidence of Malnutrition Exists Yes Malnutrition (severe): Acute Illness/Injury Evidenced By Suboptimal Energy Intake ( Severe),Weight Loss (Severe) Intake Problem Inadequate Oral Intake Etiology r/t inadequate energy intake d /t resp. failure Signs/Symptoms as evidenced by estimated PO intake meeting <50% of nutritional needs Status Active Problem Clinical Problem Acute Disease or Injury Related Malnutrition Etiology severe, acute related to acute illness and decreased appetite Signs/Symptoms as evidenced by 6.237kg/8.8% wt loss x 5 days; estimated PO intake meeting <50% of estimated nutritional needs x 1 week Status Active Problem Recommendation Dietitian Recommendations/Changes Will continue regular diet d/t malnutrition and 120mL Glucerna ONS w/ meals. Will fortify foods when possible. Lab / Micro Data Result Diagrams: 07/07/21 03:40 07/07/21 03:40 Labs: Laboratory Results - last 24 hr 07/06/21 08:45: POC Glucose 132 H 07/06/21 12:00: POC Glucose 181 H 07/06/21 16:40: POC Glucose 169 H 07/06/21 21:08: POC Glucose 180 H 07/07/21 03:40: WBC 9.9, RBC 4.39 L, Hgb 13.3, Hct 39.3 L, MCV 89.5, MCH 30.3, MCHC 33.8, RDW Std Deviation 55.8 H, RDW Coeff of Eduarda 17.0 H, Plt Count 399, MPV 11.6, Immature Gran % (Auto) 0.500, Neut % (Auto) 90.0 H, Lymph % (Auto) 5.9 L, [place] % (Auto) 3.4, Eos % (Auto) 0.0, Baso % (Auto) 0.2, Absolute Neuts (auto) 8.9 H, Absolute Lymphs (auto) 0.59 L, Nucleated RBC % 0.2, Differential Comment SCANNED, Anisocytosis RARE, Microcytosis RARE 07/07/21 03:40: Sodium 140, Potassium 4.3, Chloride 107, Carbon Dioxide 28.0, Anion Gap 5, BUN 55 H, Creatinine 1.12, Estim Creat Clear Calc 48.55, Est GFR (MDRD) Af Amer 81, Est GFR (MDRD) Non-Af 67, BUN/Creatinine Ratio 49.1 H, Glucose 128 H, Calcium 9.1, Total Bilirubin 0.90, AST 28, ALT 27, Alkaline Phosphatase 104, Total Protein 5.8 L, Albumin 2.6 L, Globulin 3.2, Albumin/Globulin Ratio 0.8 L Micro: Microbiology 07/01/21 20:20 Blood Culture (Wb) - Left Wrist Blood Culture - Preliminary No growth in 48 hours. 07/01/21 20:10 Blood Culture (Wb) - Anticubital Left Blood Culture - Preliminary No growth in 48 hours. 07/02/21 07:00 Sputum, Expectorated/Coughed Gram Stain - Final 07/02/21 07:00 Sputum, Expectorated/Coughed Respiratory Culture - Final 07/01/21 22:12 Urine, Clean Catch Urine Culture - Final Culture exhibits no growth. 07/02/21 05:35 Mucosa - Nasopharyngeal Respiratory Panel (PCR) - Final 07/02/21 07:00 Urine, Random Legionella Antigen - Final 07/02/21 07:00 Urine, Random Streptococcus pneumoniae Antigen (M - Final 07/01/21 20:58 Mucosa - Nose SARS-CoV-2 Antigen (Rapid) - Final SARS-CoV-2 (COVID 19) Physical Exam Const alert Constitutional Narrative: Tolerating Airvo well. Greeted me when I walked through the door. Mild conversational dyspnea General Appearance: cooperative Orientation / Consciousness: confused Nutritional Appearance: thin HEENT normocephalic and head/scalp atraumatic Eyes PERRL and EOMs intact bilaterally Neck supple General: trachea midline Chest inspection of chest normal Chest: symmetrical chest wall rise Resp Effort and Inspection: tachypneic Auscultation: diminished lung sounds; Negative for rales, rhonchi or wheezes Cardio regular rate, regular rhythm, no murmurs, no rub and no gallops GI normal to inspection, nondistended, normoactive bowel sounds Extremity no clubbing, cyanosis or edema Skin no rashes or lesions noted Neuro moves all extremities and no focal motor deficits Psych Activity / Motor Behavior: restless Charges/Coding Visit Charges Inpatient E&M: 31184 Subs Hosp L3
[2021-07-07] MEDS: Furosemide 40 MG/4 ML Vial IV (08:19)
[2021-07-07] MEDS: Menthol/Lanolin/Calamine/Znox 113 GM Tube 1 APPLIC TOPICAL ×2 (08:29→23:37)
--- NOTE | 2021-07-07 10:19 | CASEMGMT ---
SW participated in ICU rounds, SW explained to during rounds will continue to follow for anticipated correction facility placement. BRANDIE Dumont
[2021-07-07] MEDS: guaiFENesin 1,200 MG Tablet 1200 MG PO ×2 (10:43→23:37)
[2021-07-07] MEDS: Allopurinol 300 MG Tablet PO (10:43)
[2021-07-07] MEDS: PARoxetine 10 MG Tablet PO (10:43)
[2021-07-07] MEDS: Finasteride 5 MG Tablet PO (10:43)
[2021-07-07] MEDS: Memantine Hydrochloride 5 MG Tablet PO ×2 (10:43→23:37)
[2021-07-07] MEDS: Tamsulosin HCl 0.4 MG Capsule PO (10:43)
[2021-07-07] MEDS: Losartan Potassium 50 MG Tablet PO (10:43)
[2021-07-07] MEDS: dexAMETHasone 10 MG/ML Vial 6 MG IV (10:44)
[2021-07-07] MEDS: Enoxaparin 40 MG/0.4 ML Syringe SC ×2 (10:44→23:38)
[2021-07-07] MEDS: CHLORHEXIDINE GLUC 2% CLOTH 1 EACH TOWELETTE TOPICAL (10:44)
--- NOTE | 2021-07-07 11:44 | PCM.PN.HOSP ---
Subjective Subjective Patient was seen and examined. Remains on Airvo/Bipap. No acute events overnight Objective Data Objective Data Vital Signs: Vital Signs Temp Pulse Resp BP Pulse Ox 97.3 F L 62 19 H 142/77 H 97 07/07/21 09:00 07/07/21 11:00 07/07/21 11:00 07/07/21 11:00 07/07/21 11:00 Oxygen Flow Rate (L/min) 60 Oxygen Delivery Method Airvo Weight: 63.616 kg Body Mass Index (BMI) 24.3 Intake & Output: Intake and Output for Last 24 Hours 07/05/21 07/06/21 07/07/21 23:59 23:59 23:59 Intake Total 386 / 506 370 / 370 Output Total 200 / 450 850 / 850 1200 / 1200 Balance 186 / 56 -480 / -480 -1200 / -1200 Medical Nutrition Assessment Dietitian: Malnutrition Criteria Met Start: 07/02/21 09:48 Freq: Status: Active Protocol: Document 07/06/21 10:44 AG (Rec: 07/06/21 10:44 AG [id number]) Nutrition Malnutrition Evidence of Malnutrition Exists Yes Malnutrition (severe): Acute Illness/Injury Evidenced By Suboptimal Energy Intake ( Severe),Weight Loss (Severe) Intake Problem Inadequate Oral Intake Etiology r/t inadequate energy intake d /t resp. failure Signs/Symptoms as evidenced by estimated PO intake meeting <50% of nutritional needs Status Active Problem Clinical Problem Acute Disease or Injury Related Malnutrition Etiology severe, acute related to acute illness and decreased appetite Signs/Symptoms as evidenced by 6.237kg/8.8% wt loss x 5 days; estimated PO intake meeting <50% of estimated nutritional needs x 1 week Status Active Problem Recommendation Dietitian Recommendations/Changes Will continue regular diet d/t malnutrition and 120mL Glucerna ONS w/ meals. Will fortify foods when possible. Lab / Micro Data Result Diagrams: 07/07/21 03:40 07/07/21 03:40 Labs: Laboratory Results - last 24 hr 07/06/21 12:00: POC Glucose 181 H 07/06/21 16:40: POC Glucose 169 H 07/06/21 21:08: POC Glucose 180 H 07/07/21 03:40: WBC 9.9, RBC 4.39 L, Hgb 13.3, Hct 39.3 L, MCV 89.5, MCH 30.3, MCHC 33.8, RDW Std Deviation 55.8 H, RDW Coeff of Eduarda 17.0 H, Plt Count 399, MPV 11.6, Immature Gran % (Auto) 0.500, Neut % (Auto) 90.0 H, Lymph % (Auto) 5.9 L, [place] % (Auto) 3.4, Eos % (Auto) 0.0, Baso % (Auto) 0.2, Absolute Neuts (auto) 8.9 H, Absolute Lymphs (auto) 0.59 L, Nucleated RBC % 0.2, Differential Comment SCANNED, Anisocytosis RARE, Microcytosis RARE 07/07/21 03:40: Sodium 140, Potassium 4.3, Chloride 107, Carbon Dioxide 28.0, Anion Gap 5, BUN 55 H, Creatinine 1.12, Estim Creat Clear Calc 48.55, Est GFR (MDRD) Af Amer 81, Est GFR (MDRD) Non-Af 67, BUN/Creatinine Ratio 49.1 H, Glucose 128 H, Calcium 9.1, Total Bilirubin 0.90, AST 28, ALT 27, Alkaline Phosphatase 104, Total Protein 5.8 L, Albumin 2.6 L, Globulin 3.2, Albumin/Globulin Ratio 0.8 L Micro: Microbiology 07/01/21 20:10 Blood Culture (Wb) - Anticubital Left Blood Culture - Final No growth in 5 days. 07/01/21 20:20 Blood Culture (Wb) - Left Wrist Blood Culture - Final No growth in 5 days. 07/02/21 07:00 Sputum, Expectorated/Coughed Gram Stain - Final 07/02/21 07:00 Sputum, Expectorated/Coughed Respiratory Culture - Final 07/01/21 22:12 Urine, Clean Catch Urine Culture - Final Culture exhibits no growth. 07/02/21 05:35 Mucosa - Nasopharyngeal Respiratory Panel (PCR) - Final 07/02/21 07:00 Urine, Random Legionella Antigen - Final 07/02/21 07:00 Urine, Random Streptococcus pneumoniae Antigen (M - Final 07/01/21 20:58 Mucosa - Nose SARS-CoV-2 Antigen (Rapid) - Final SARS-CoV-2 (COVID 19) Physical Exam Narrative General: Alert, Oriented x3, Cooperative, on Airvo HEENT: Atraumatic, PERRLA, EOMI, Normocephalic Oral: Dry mucosa Neck: Supple Lungs: Air entry diminished in bilateral lung bases. Bilateral coarse crepitations and wheezing. Cardiovascular: Regular rate, Regular Rhythm, Normal S1, Normal S2, No murmurs Abdomen: Bowel Sounds Present, Soft, Non Tender, Non-Distended Extremities: No edema Assessment & Plan Assessment/Plan (1) Acute hypoxemic respiratory failure due to COVID-19: (2) COVID-19: (3) Encephalopathy acute: (4) Chronic systolic congestive heart failur: (5) Diabetes mellitus type II: (6) Hypertension: (7) Hyperlipidemia: (8) Alzheimer's disease: (9) Hairy cell leukemia, in remission: PLAN: 1. Acute hypoxic respiratory failure secondary to COVID-19 pneumonia, remains about the same Status post Pfizer vaccine in January Completed Remdesivir, Decadron IV day 6 of 10 Pulmonology following 2. MOISES, resolved, secondary to prerenal causes from COVID; ATN ruled out in this admission 3. Hypertension, controlled, continue losartan 50 mg daily 4. Rest of chronic medical problems -type II DM, hyperlipidemia,heart failure with reduced EF, EF 35% Will continue on rest of home meds Charges/Coding Visit Charges Inpatient E&M: 37455 Subs Hosp L3
[2021-07-07 13:46] LABS: Bedside Glucose 145 mg/dL (70-110)
[2021-07-07] MEDS: Insulin Lispro 100 UNIT/ML INSULN.PEN SC ×2 (16:51→23:38)
[2021-07-07 17:00] LABS: Bedside Glucose 107 mg/dL (70-110)
[2021-07-07 17:56] LABS: Bedside Glucose 194 mg/dL (70-110)
[2021-07-07] MEDS: Donepezil HCl 10 MG Tablet PO (23:37)
[2021-07-07] MEDS: oxyCODONE 5 MG Tablet PO (23:37)
[2021-07-07] MEDS: Atorvastatin Calcium 10 MG Tablet PO (23:37)
[2021-07-08] VITALS (35 sets, daily range): BP systolic 86–142; BP diastolic 52–89; PULSE 55–75; RESP 12–65; TEMP 36–36.6; O2SAT 88–95
[2021-07-08 00:06] LABS: Bedside Glucose 204 mg/dL (70-110)
[2021-07-08] MEDS: oxyCODONE 5 MG Tablet PO (05:15)
[2021-07-08 08:11] LABS: Absolute Lymphocyte Count 0.46 X10^3/uL (0.83-4.51); Basophil# 0.01 X10^3/uL; Basophil% 0.1 % (0-1); Eosinophil# 0.01 X10^3/uL; Eosinophils% 0.1 % (0-5); Hematocrit 39.4 % (40-54); Hemoglobin 13.2 g/dL (13.0-16.5); Lymphocyte # 0.46 X10^3/ul (0.83-4.51); Lymphocyte % 4.6 % (19-41); Mean Corp Hgb Conc 33.5 g/dL (32-36); Mean Corpuscular Hgb 30.1 pg (27.0-32.0); Mean Corpuscular Volume 89.7 fL (80-94); Mean Platelet Vol. 11.5 fl (6.2-12.0); Monocyte# 0.33 X10^3/uL; Monocyte% 3.3 % (0-10); NRBC Flagged by Analyzer 0.2 % (0-5); Neutrophil # 9.04 X10^3/uL (2.7-7.7); Neutrophil % 91.4 % (47-70); POSITIVE DIFFERENTIAL YES; POSITIVE MORPHOLOGY YES; Platelet Count 408 K/mm3 (150-450); RBC Distribution Width CV 17.1 % (11.6-14.6); Red Blood Count 4.39 M/mm3 (4.6-6.2); White Blood Count 9.9 K/mm3 (4.4-11.0)
[2021-07-08 08:21] LABS: Anion Gap 7 (5-15); BUN 55 mg/dL (7-18); BUN/Creat Ratio 49.1 RATIO (10-20); Calcium,Total 8.8 mg/dL (8.5-10.1); Chloride 105 mmol/L (98-107); Creatinine, Serum 1.12 mg/dL (0.70-1.30); EST Glomerular Filtration Rate 67 mL/min (>60); Est Glom Filt Rate - Afr Amer 81 mL/min (>60); Glucose 115 mg/dL (74-106); Sodium Level 138 mmol/L (136-145)
[2021-07-08 08:22] LABS: Differential Indicated SCAN CRITERIA MET
--- NOTE | 2021-07-08 08:33 | PCM.PN.INT ---
Assessment & Plan Assessment/Plan (1) Acute hypoxemic respiratory failure due to COVID-19: PLAN: RECOMMENDATIONS: 1. Continue Airvo/BiPAP and wean FiO2 to maintain oxygen saturations at or above 90%. We will continue BiPAP with sleep and rescue 2. Completed remdesivir. Continue Decadron to complete treatment courses. 3. Continue Lovenox twice daily. 4. Attempt to limit IV fluids. P.o. intake as tolerated on Airvo. Challenge with diuretics today 5. Encourage incentive spirometer use and mobilize patient as tolerated. IMPRESSIONS: 1. Acute hypoxemic respiratory failure secondary to COVID-19 pneumonia The patient was previously vaccinated in the spring 2020 and presented to the hospital with weakness and dyspnea over the course of the last week. The patient has already been initiated on remdesivir and Decadron, which will be continued. We will monitor liver and renal function accordingly. D-dimer was elevated at 1.96. However, CTA showed no evidence for PE. The patient will be continued on low-dose twice daily Lovenox. Clinical suspicion for worsening respiratory status secondary to derecruitment associated with sleeping without BiPAP. Will place patient on BiPAP for recruitment. Potentially transition to Airvo during the day, but would stressed the need for BiPAP with sleep. Diuretic challenge today. We will have to watch closely today. Cannot exclude the need for intubation if patient continues to refuse BiPAP. 2. Acute kidney injury Resolved. Likely prerenal in etiology, as the patient has responded to fluid resuscitation. Creatinine has normalized at this time. Will discontinue supplemental IV fluids as this can lead to worsening respiratory status and COVID-19 pneumonia. Continue to monitor urine output. No current indication for renal replacement therapy. 3. Advanced age/hypertension/hyperlipidemia/Alzheimer's dementia/BPH Complicates care, management, recovery and prognosis. Continue home medications as indicated. Despite significant baseline reported dementia, family has elected to remain aggressive at this time. TIME: 33 minutes critical care time spent addressing patient's acute hypoxic respiratory failure, delirium, review of all data and collaboration with care team (6:45 AM to 7:45 AM) Subjective Subjective Patient did okay overnight. Patient refused BiPAP therapy, but oxygenation was maintained on Airvo. However, this morning patient has had increased oxygen demands and had to be placed on BiPAP secondary to oxygenation. Patient denied any pain, but was feeling dyspneic this morning. Objective Data Objective Data Vital Signs: Vital Signs Temp Pulse Resp BP Pulse Ox 36.1 C L 57 L 18 118/76 94 07/08/21 05:00 07/08/21 07:42 07/08/21 07:42 07/08/21 07:00 07/08/21 08:24 Oxygen Flow Rate (L/min) 60 Oxygen Delivery Method Bi-pap Weight: 63.321 kg Body Mass Index (BMI) 24.3 Intake & Output: Intake and Output for Last 24 Hours 07/06/21 07/07/21 07/08/21 23:59 23:59 23:59 Intake Total 370 / 370 100 / 100 Output Total 850 / 850 1750 / 1750 450 / 450 Balance -480 / -480 -1750 / -1750 -350 / -350 Medical Nutrition Assessment Dietitian: Malnutrition Criteria Met Start: 07/02/21 09:48 Freq: Status: Active Protocol: Document 07/06/21 10:44 AG (Rec: 07/06/21 10:44 AG [id number]) Nutrition Malnutrition Evidence of Malnutrition Exists Yes Malnutrition (severe): Acute Illness/Injury Evidenced By Suboptimal Energy Intake ( Severe),Weight Loss (Severe) Intake Problem Inadequate Oral Intake Etiology r/t inadequate energy intake d /t resp. failure Signs/Symptoms as evidenced by estimated PO intake meeting <50% of nutritional needs Status Active Problem Clinical Problem Acute Disease or Injury Related Malnutrition Etiology severe, acute related to acute illness and decreased appetite Signs/Symptoms as evidenced by 6.237kg/8.8% wt loss x 5 days; estimated PO intake meeting <50% of estimated nutritional needs x 1 week Status Active Problem Recommendation Dietitian Recommendations/Changes Will continue regular diet d/t malnutrition and 120mL Glucerna ONS w/ meals. Will fortify foods when possible. Lab / Micro Data Result Diagrams: 07/08/21 08:00 07/08/21 08:00 Labs: Laboratory Results - last 24 hr 07/07/21 08:11: POC Glucose 107 07/07/21 12:24: POC Glucose 145 H 07/07/21 16:50: POC Glucose 194 H 07/07/21 23:35: POC Glucose 204 H 07/08/21 08:00: WBC 9.9, RBC 4.39 L, Hgb 13.2, Hct 39.4 L, MCV 89.7, MCH 30.1, MCHC 33.5, RDW Std Deviation 56.0 H, RDW Coeff of Eduarda 17.1 H, Plt Count 408, MPV 11.5, Immature Gran % (Auto) 0.500, Neut % (Auto) 91.4 H, Lymph % (Auto) 4.6 L, [place] % (Auto) 3.3, Eos % (Auto) 0.1, Baso % (Auto) 0.1, Absolute Neuts (auto) 9.0 H, Absolute Lymphs (auto) 0.46 L, Nucleated RBC % 0.2 07/08/21 08:00: Sodium 138, Potassium 4.0, Chloride 105, Carbon Dioxide 26.0, Anion Gap 7, BUN 55 H, Creatinine 1.12, Estim Creat Clear Calc 47.90, Est GFR (MDRD) Af Amer 81, Est GFR (MDRD) Non-Af 67, BUN/Creatinine Ratio 49.1 H, Glucose 115 H, Calcium 8.8 Micro: Microbiology 07/01/21 20:10 Blood Culture (Wb) - Anticubital Left Blood Culture - Final No growth in 5 days. 07/01/21 20:20 Blood Culture (Wb) - Left Wrist Blood Culture - Final No growth in 5 days. 07/02/21 07:00 Sputum, Expectorated/Coughed Gram Stain - Final 07/02/21 07:00 Sputum, Expectorated/Coughed Respiratory Culture - Final 07/01/21 22:12 Urine, Clean Catch Urine Culture - Final Culture exhibits no growth. 07/02/21 05:35 Mucosa - Nasopharyngeal Respiratory Panel (PCR) - Final 07/02/21 07:00 Urine, Random Legionella Antigen - Final 07/02/21 07:00 Urine, Random Streptococcus pneumoniae Antigen (M - Final 07/01/21 20:58 Mucosa - Nose SARS-CoV-2 Antigen (Rapid) - Final SARS-CoV-2 (COVID 19) Physical Exam Const alert Constitutional Narrative: Tolerating Airvo well. Greeted me when I walked through the door. Moderate conversational dyspnea General Appearance: cooperative Orientation / Consciousness: confused Nutritional Appearance: thin HEENT normocephalic and head/scalp atraumatic Eyes PERRL and EOMs intact bilaterally Neck supple General: trachea midline Chest inspection of chest normal Chest: symmetrical chest wall rise Resp Effort and Inspection: tachypneic Auscultation: diminished lung sounds; Negative for rales, rhonchi or wheezes Cardio regular rate, regular rhythm, no murmurs, no rub and no gallops GI normal to inspection, nondistended, normoactive bowel sounds Extremity no clubbing, cyanosis or edema Skin no rashes or lesions noted Neuro moves all extremities and no focal motor deficits Psych Activity / Motor Behavior: restless Charges/Coding Procedures Hospitalists Procedures: 03027 Critial Care 1st Hr
[2021-07-08] MEDS: Menthol/Lanolin/Calamine/Znox 113 GM Tube 1 APPLIC TOPICAL ×2 (08:35→21:24)
[2021-07-08 08:36] LABS: Bedside Glucose 127 mg/dL (70-110)
[2021-07-08] MEDS: guaiFENesin 1,200 MG Tablet 1200 MG PO ×2 (08:36→21:23)
[2021-07-08] MEDS: dexAMETHasone 10 MG/ML Vial 6 MG IV (08:36)
[2021-07-08] MEDS: Losartan Potassium 50 MG Tablet PO (08:36)
[2021-07-08] MEDS: Allopurinol 300 MG Tablet PO (08:36)
[2021-07-08] MEDS: Tamsulosin HCl 0.4 MG Capsule PO (08:36)
[2021-07-08] MEDS: PARoxetine 10 MG Tablet PO (08:36)
[2021-07-08] MEDS: Memantine Hydrochloride 5 MG Tablet PO ×2 (08:36→21:23)
[2021-07-08] MEDS: Finasteride 5 MG Tablet PO (08:36)
[2021-07-08] MEDS: Enoxaparin 40 MG/0.4 ML Syringe SC ×2 (08:37→21:23)
[2021-07-08] MEDS: Furosemide 40 MG/4 ML Vial IV (08:48)
--- NOTE | 2021-07-08 10:53 | PN.HOSP_ITS ---
Subjective Subjective Patient seen and examined. No new events. Objective Data Objective Data Vital Signs: Vital Signs Temp Pulse Resp BP Pulse Ox 97.0 F L 62 18 123/61 H 94 07/08/21 05:00 07/08/21 10:00 07/08/21 10:00 07/08/21 10:00 07/08/21 10:00 Oxygen Flow Rate (L/min) 60 Oxygen Delivery Method Bi-pap Weight: 63.321 kg Body Mass Index (BMI) 24.3 Intake & Output: Intake and Output for Last 24 Hours 07/06/21 07/07/21 07/08/21 23:59 23:59 23:59 Intake Total 370 / 370 100 / 100 Output Total 850 / 850 1750 / 1750 450 / 450 Balance -480 / -480 -1750 / -1750 -350 / -350 Medical Nutrition Assessment Dietitian: Malnutrition Criteria Met Start: 07/02/21 09:48 Freq: Status: Active Protocol: Document 07/08/21 10:49 BP (Rec: 07/08/21 10:50 BP [id number]) Nutrition Malnutrition Evidence of Malnutrition Exists Yes Malnutrition (severe): Acute Illness/Injury Evidenced By Suboptimal Energy Intake ( Severe),Weight Loss (Severe) Intake Problem Inadequate Oral Intake Etiology r/t inadequate energy intake d /t resp. failure Signs/Symptoms as evidenced by estimated PO intake meeting <50% of nutritional needs Status Active Problem Clinical Problem Acute Disease or Injury Related Malnutrition Etiology severe, acute related to acute illness and decreased appetite Signs/Symptoms as evidenced by 6.237kg/8.8% wt loss x 5 days; estimated PO intake meeting <50% of estimated nutritional needs x 1 week Status Active Problem Recommendation Dietitian Recommendations/Changes Will continue regular diet d/t signs and symptoms of malnutrition. Will continue to provide fortified foods at meals. Will continue 120mL Glucerna ONS w/ meals. Lab / Micro Data Result Diagrams: 07/08/21 08:00 07/08/21 08:00 Labs: Laboratory Results - last 24 hr 07/07/21 08:11: POC Glucose 107 07/07/21 12:24: POC Glucose 145 H 07/07/21 16:50: POC Glucose 194 H 07/07/21 23:35: POC Glucose 204 H 07/08/21 08:00: WBC 9.9, RBC 4.39 L, Hgb 13.2, Hct 39.4 L, MCV 89.7, MCH 30.1, MCHC 33.5, RDW Std Deviation 56.0 H, RDW Coeff of Eduarda 17.1 H, Plt Count 408, MPV 11.5, Immature Gran % (Auto) 0.500, Neut % (Auto) 91.4 H, Lymph % (Auto) 4.6 L, [place] % (Auto) 3.3, Eos % (Auto) 0.1, Baso % (Auto) 0.1, Absolute Neuts (auto) 9.0 H, Absolute Lymphs (auto) 0.46 L, Nucleated RBC % 0.2 07/08/21 08:00: Sodium 138, Potassium 4.0, Chloride 105, Carbon Dioxide 26.0, Anion Gap 7, BUN 55 H, Creatinine 1.12, Estim Creat Clear Calc 47.90, Est GFR (MDRD) Af Amer 81, Est GFR (MDRD) Non-Af 67, BUN/Creatinine Ratio 49.1 H, Glucose 115 H, Calcium 8.8 07/08/21 08:12: POC Glucose 127 H Micro: Microbiology 07/01/21 20:10 Blood Culture (Wb) - Anticubital Left Blood Culture - Final No growth in 5 days. 07/01/21 20:20 Blood Culture (Wb) - Left Wrist Blood Culture - Final No growth in 5 days. 07/02/21 07:00 Sputum, Expectorated/Coughed Gram Stain - Final 07/02/21 07:00 Sputum, Expectorated/Coughed Respiratory Culture - Final 07/01/21 22:12 Urine, Clean Catch Urine Culture - Final Culture exhibits no growth. 07/02/21 05:35 Mucosa - Nasopharyngeal Respiratory Panel (PCR) - Final 07/02/21 07:00 Urine, Random Legionella Antigen - Final 07/02/21 07:00 Urine, Random Streptococcus pneumoniae Antigen (M - Final 07/01/21 20:58 Mucosa - Nose SARS-CoV-2 Antigen (Rapid) - Final SARS-CoV-2 (COVID 19) Physical Exam Narrative General: Alert, Oriented x3, Cooperative, on Airvo HEENT: Atraumatic, PERRLA, EOMI, Normocephalic Oral: Dry mucosa Neck: Supple Lungs: Air entry diminished in bilateral lung bases. Bilateral coarse crepitations and wheezing. Cardiovascular: Regular rate, Regular Rhythm, Normal S1, Normal S2, No murmurs Abdomen: Bowel Sounds Present, Soft, Non Tender, Non-Distended Extremities: No edema Assessment & Plan Assessment/Plan (1) Acute hypoxemic respiratory failure due to COVID-19: (2) COVID-19: (3) Encephalopathy acute: (4) Chronic systolic congestive heart failur: (5) Diabetes mellitus type II: (6) Hypertension: (7) Hyperlipidemia: (8) Alzheimer's disease: (9) Hairy cell leukemia, in remission: PLAN: 1. Acute hypoxic respiratory failure secondary to COVID-19 pneumonia, remains about the same Status post Pfizer vaccine in January Completed Remdesivir, Decadron IV day 7 of 10 Pulmonology following 2. MOISES, resolved, secondary to prerenal causes from COVID; ATN ruled out in this admission 3. Hypertension, controlled, continue losartan 50 mg daily 4. Rest of chronic medical problems -type II DM, hyperlipidemia,heart failure with reduced EF, EF 35% Will continue on rest of home meds Charges/Coding Visit Charges Inpatient E&M: 43009 Subs Hosp L3
[2021-07-08] MEDS: Insulin Lispro 100 UNIT/ML INSULN.PEN SC ×3 (11:43→21:24)
[2021-07-08] MEDS: CHLORHEXIDINE GLUC 2% CLOTH 1 EACH TOWELETTE TOPICAL (11:44)
[2021-07-08 12:00] LABS: Bedside Glucose 169 mg/dL (70-110)
[2021-07-08 12:16] LABS: Differential Comment SCANNED
[2021-07-08 16:26] LABS: Bedside Glucose 271 mg/dL (70-110)
[2021-07-08] MEDS: Donepezil HCl 10 MG Tablet PO (21:23)
[2021-07-08] MEDS: Atorvastatin Calcium 10 MG Tablet PO (21:24)
[2021-07-08 21:46] LABS: Bedside Glucose 179 mg/dL (70-110)
[2021-07-09] VITALS (37 sets, daily range): BP systolic 101–134; BP diastolic 51–89; PULSE 60–88; RESP 14–31; TEMP 35.8–36.6; O2SAT 90–97
--- NOTE | 2021-07-09 03:04 | NURSING ---
CALLED INTO PT'S ROOM HE REPORTS SOB. SPO2 86%. O2 INCREASE TO 100% AND BIPAP PRESSURES INCREASED TO 14/10. 0305 RT PRESENT IN ROOM, PT'S SETTINGS CHANGED TO AVAP. SPO2 93%. PT REPORTS MILD IMPROVEMENT IN SOB.
--- NOTE | 2021-07-09 03:17 | CPS ---
Patient changed to AVAPS BiPAP mode for increased SOB on 12/8 settings. Patient oxygenation and breathing improved after this changed made.
[2021-07-09] MEDS: Acetaminophen 325 MG Tablet 650 MG PO ×2 (05:45→21:44)
[2021-07-09 05:46] LABS: Absolute Lymphocyte Count 0.45 X10^3/uL (0.83-4.51); Basophil# 0.01 X10^3/uL; Basophil% 0.1 % (0-1); Eosinophil# 0.01 X10^3/uL; Eosinophils% 0.1 % (0-5); Hematocrit 37.3 % (40-54); Hemoglobin 12.7 g/dL (13.0-16.5); Lymphocyte # 0.45 X10^3/ul (0.83-4.51); Lymphocyte % 3.5 % (19-41); Mean Corpuscular Hgb 30.4 pg (27.0-32.0); Mean Corpuscular Volume 89.2 fL (80-94); Mean Platelet Vol. 11.7 fl (6.2-12.0); Monocyte# 0.38 X10^3/uL; Monocyte% 2.9 % (0-10); NRBC Flagged by Analyzer 0 % (0-5); Neutrophil # 11.98 X10^3/uL (2.7-7.7); Neutrophil % 92.9 % (47-70); POSITIVE DIFFERENTIAL YES; Platelet Count 419 K/mm3 (150-450); RBC Distribution Width CV 17.1 % (11.6-14.6); RBC Distribution Width SD 55.6 fl (35.1-43.9); Red Blood Count 4.18 M/mm3 (4.6-6.2); White Blood Count 12.9 K/mm3 (4.4-11.0)
[2021-07-09 05:49] LABS: Differential Indicated SCAN CRITERIA MET
[2021-07-09 05:58] LABS: Anion Gap 8 (5-15); BUN 70 mg/dL (7-18); Calcium,Total 8.6 mg/dL (8.5-10.1); Chloride 103 mmol/L (98-107); EST Glomerular Filtration Rate 52 mL/min (>60); Est Glom Filt Rate - Afr Amer 63 mL/min (>60); Estimated Creatinine Clearance 38.32 ml/min; Glucose 127 mg/dL (74-106); Magnesium 2.2 mg/dL (1.6-2.6); Phosphorus 3.5 mg/dL (2.5-4.9); Potassium 4.1 mmol/L (3.5-5.1); Sodium Level 138 mmol/L (136-145)
[2021-07-09 06:01] LABS: Bedside Glucose 126 mg/dL (70-110)
[2021-07-09 06:24] LABS: Differential Comment SCANNED
--- NOTE | 2021-07-09 07:56 | PCM.PN.INT ---
Assessment & Plan Assessment/Plan (1) Acute hypoxemic respiratory failure due to COVID-19: PLAN: RECOMMENDATIONS: 1. Continue Airvo/BiPAP and wean FiO2 to maintain oxygen saturations at or above 90%. We will continue BiPAP with sleep and rescue 2. Completed remdesivir. Continue Decadron to complete treatment courses. 3. Continue Lovenox twice daily. 4. Attempt to limit IV fluids. P.o. intake as tolerated on Airvo. No Lasix today given increase in creatinine 5. Encourage incentive spirometer use and mobilize patient as tolerated. IMPRESSIONS: 1. Acute hypoxemic respiratory failure secondary to COVID-19 pneumonia The patient was previously vaccinated in the spring 2020 and presented to the hospital with weakness and dyspnea over the course of the last week. The patient has already been initiated on remdesivir and Decadron, which will be continued. We will monitor liver and renal function accordingly. D-dimer was elevated at 1.96. However, CTA showed no evidence for PE. The patient will be continued on low-dose twice daily Lovenox. Clinical suspicion for worsening respiratory status secondary to derecruitment associated with sleeping without BiPAP. Patient has responded well to BiPAP therapy. Continue to wean FiO2 as tolerated. Likely okay to use Airvo during the day while awake, but would continue to monitor in the intensive care unit as patient is still at high risk for intubation. 2. Acute kidney injury Worse today secondary to diuretics. Likely prerenal in etiology, as the patient has responded to fluid resuscitation. Creatinine has normalized at this time. Will discontinue supplemental IV fluids as this can lead to worsening respiratory status and COVID-19 pneumonia. Continue to monitor urine output. No current indication for renal replacement therapy. 3. Advanced age/hypertension/hyperlipidemia/Alzheimer's dementia/BPH Complicates care, management, recovery and prognosis. Continue home medications as indicated. Despite significant baseline reported mild dementia, family has elected to remain aggressive at this time. Subjective Subjective Patient appears to have stabilized from yesterday. Patient has essentially been on BiPAP continuously since yesterday. Patient with no complaints this morning. Objective Data Objective Data Vital Signs: Vital Signs Temp Pulse Resp BP Pulse Ox 36.6 C 66 21 H 119/68 91 07/09/21 04:00 07/09/21 07:27 07/09/21 07:27 07/09/21 06:00 07/09/21 07:27 Oxygen Flow Rate (L/min) 60 Oxygen Delivery Method Airvo Weight: 63.321 kg Body Mass Index (BMI) 24.3 Intake & Output: Intake and Output for Last 24 Hours 07/07/21 07/08/21 07/09/21 23:59 23:59 23:59 Intake Total 700 / 700 140 / 140 Output Total 1750 / 1750 1200 / 1200 405 / 405 Balance -1750 / -1750 -500 / -500 -265 / -265 Medical Nutrition Assessment Dietitian: Malnutrition Criteria Met Start: 07/02/21 09:48 Freq: Status: Active Protocol: Document 07/08/21 10:49 BP (Rec: 07/08/21 10:50 BP [id number]) Nutrition Malnutrition Evidence of Malnutrition Exists Yes Malnutrition (severe): Acute Illness/Injury Evidenced By Suboptimal Energy Intake ( Severe),Weight Loss (Severe) Intake Problem Inadequate Oral Intake Etiology r/t inadequate energy intake d /t resp. failure Signs/Symptoms as evidenced by estimated PO intake meeting <50% of nutritional needs Status Active Problem Clinical Problem Acute Disease or Injury Related Malnutrition Etiology severe, acute related to acute illness and decreased appetite Signs/Symptoms as evidenced by 6.237kg/8.8% wt loss x 5 days; estimated PO intake meeting <50% of estimated nutritional needs x 1 week Status Active Problem Recommendation Dietitian Recommendations/Changes Will continue regular diet d/t signs and symptoms of malnutrition. Will continue to provide fortified foods at meals. Will continue 120mL Glucerna ONS w/ meals. Lab / Micro Data Result Diagrams: 07/09/21 03:35 07/09/21 03:35 Labs: Laboratory Results - last 24 hr 07/08/21 08:00: WBC 9.9, RBC 4.39 L, Hgb 13.2, Hct 39.4 L, MCV 89.7, MCH 30.1, MCHC 33.5, RDW Std Deviation 56.0 H, RDW Coeff of Eduarda 17.1 H, Plt Count 408, MPV 11.5, Immature Gran % (Auto) 0.500, Neut % (Auto) 91.4 H, Lymph % (Auto) 4.6 L, [place] % (Auto) 3.3, Eos % (Auto) 0.1, Baso % (Auto) 0.1, Absolute Neuts (auto) 9.0 H, Absolute Lymphs (auto) 0.46 L, Nucleated RBC % 0.2, Differential Comment SCANNED 07/08/21 08:00: Sodium 138, Potassium 4.0, Chloride 105, Carbon Dioxide 26.0, Anion Gap 7, BUN 55 H, Creatinine 1.12, Estim Creat Clear Calc 47.90, Est GFR (MDRD) Af Amer 81, Est GFR (MDRD) Non-Af 67, BUN/Creatinine Ratio 49.1 H, Glucose 115 H, Calcium 8.8 07/08/21 08:12: POC Glucose 127 H 07/08/21 11:42: POC Glucose 169 H 07/08/21 15:59: POC Glucose 271 H 07/08/21 21:22: POC Glucose 179 H 07/09/21 03:35: WBC 12.9 H, RBC 4.18 L, Hgb 12.7 L, Hct 37.3 L, MCV 89.2, MCH 30.4, MCHC 34.0, RDW Std Deviation 55.6 H, RDW Coeff of Eduarda 17.1 H, Plt Count 419, MPV 11.7, Immature Gran % (Auto) 0.500, Neut % (Auto) 92.9 H, Lymph % (Auto) 3.5 L, [place] % (Auto) 2.9, Eos % (Auto) 0.1, Baso % (Auto) 0.1, Absolute Neuts (auto) 12.0 H, Absolute Lymphs (auto) 0.45 L, Nucleated RBC % 0, Differential Comment SCANNED 07/09/21 03:35: Sodium 138, Potassium 4.1, Chloride 103, Carbon Dioxide 27.0, Anion Gap 8, BUN 70 H, Creatinine 1.40 H, Estim Creat Clear Calc 38.32, Est GFR (MDRD) Af Amer 63, Est GFR (MDRD) Non-Af 52 L, BUN/Creatinine Ratio 50.0 H, Glucose 127 H, Calcium 8.6, Phosphorus 3.5, Magnesium 2.2 07/09/21 05:52: POC Glucose 126 H Micro: Microbiology 07/01/21 20:10 Blood Culture (Wb) - Anticubital Left Blood Culture - Final No growth in 5 days. 07/01/21 20:20 Blood Culture (Wb) - Left Wrist Blood Culture - Final No growth in 5 days. 07/02/21 07:00 Sputum, Expectorated/Coughed Gram Stain - Final 07/02/21 07:00 Sputum, Expectorated/Coughed Respiratory Culture - Final 07/01/21 22:12 Urine, Clean Catch Urine Culture - Final Culture exhibits no growth. 07/02/21 05:35 Mucosa - Nasopharyngeal Respiratory Panel (PCR) - Final 07/02/21 07:00 Urine, Random Legionella Antigen - Final 07/02/21 07:00 Urine, Random Streptococcus pneumoniae Antigen (M - Final 07/01/21 20:58 Mucosa - Nose SARS-CoV-2 Antigen (Rapid) - Final SARS-CoV-2 (COVID 19) Physical Exam Const alert Constitutional Narrative: Tolerating BiPAP well. General Appearance: cooperative Orientation / Consciousness: confused Nutritional Appearance: thin HEENT normocephalic and head/scalp atraumatic Eyes PERRL and EOMs intact bilaterally Neck supple General: trachea midline Chest inspection of chest normal Chest: symmetrical chest wall rise Resp Effort and Inspection: tachypneic Auscultation: diminished lung sounds; Negative for rales, rhonchi or wheezes Cardio regular rate, regular rhythm, no murmurs, no rub and no gallops GI normal to inspection, nondistended, normoactive bowel sounds Extremity no clubbing, cyanosis or edema Skin no rashes or lesions noted Neuro moves all extremities and no focal motor deficits Psych Activity / Motor Behavior: restless Charges/Coding Visit Charges Inpatient E&M: 29597 Subs Hosp L3
[2021-07-09] MEDS: Menthol/Lanolin/Calamine/Znox 113 GM Tube 1 APPLIC TOPICAL ×2 (08:46→21:47)
[2021-07-09] MEDS: Allopurinol 300 MG Tablet PO (08:47)
[2021-07-09] MEDS: Tamsulosin HCl 0.4 MG Capsule PO (08:47)
[2021-07-09] MEDS: Memantine Hydrochloride 5 MG Tablet PO ×2 (08:47→21:43)
[2021-07-09] MEDS: PARoxetine 10 MG Tablet PO (08:47)
[2021-07-09] MEDS: guaiFENesin 1,200 MG Tablet 1200 MG PO ×2 (08:47→21:44)
[2021-07-09] MEDS: Losartan Potassium 50 MG Tablet PO (08:47)
[2021-07-09] MEDS: Finasteride 5 MG Tablet PO (08:47)
[2021-07-09] MEDS: dexAMETHasone 10 MG/ML Vial 6 MG IV (08:47)
[2021-07-09] MEDS: Enoxaparin 40 MG/0.4 ML Syringe SC ×2 (08:48→21:43)
--- NOTE | 2021-07-09 09:32 | PN.HOSP_ITS ---
Subjective Subjective Patient was seen and examined. He remains about the same. He is down a little in his oxygen requirements to 45 L on Airvo. He was very sleepy today. ABG was unremarkable Objective Data Objective Data Vital Signs: Vital Signs Temp Pulse Resp BP Pulse Ox 96.5 F L 88 19 H 124/80 H 92 07/09/21 09:00 07/09/21 09:00 07/09/21 09:00 07/09/21 09:00 07/09/21 09:00 Oxygen Flow Rate (L/min) 60 Oxygen Delivery Method Bi-pap Weight: 63.321 kg Body Mass Index (BMI) 24.3 Intake & Output: Intake and Output for Last 24 Hours 07/07/21 07/08/21 07/09/21 23:59 23:59 23:59 Intake Total 700 / 700 380 / 380 Output Total 1750 / 1750 1200 / 1200 405 / 405 Balance -1750 / -1750 -500 / -500 -25 / -25 Medical Nutrition Assessment Dietitian: Malnutrition Criteria Met Start: 07/02/21 09:48 Freq: Status: Active Protocol: Document 07/08/21 10:49 BP (Rec: 07/08/21 10:50 BP [id number]) Nutrition Malnutrition Evidence of Malnutrition Exists Yes Malnutrition (severe): Acute Illness/Injury Evidenced By Suboptimal Energy Intake ( Severe),Weight Loss (Severe) Intake Problem Inadequate Oral Intake Etiology r/t inadequate energy intake d /t resp. failure Signs/Symptoms as evidenced by estimated PO intake meeting <50% of nutritional needs Status Active Problem Clinical Problem Acute Disease or Injury Related Malnutrition Etiology severe, acute related to acute illness and decreased appetite Signs/Symptoms as evidenced by 6.237kg/8.8% wt loss x 5 days; estimated PO intake meeting <50% of estimated nutritional needs x 1 week Status Active Problem Recommendation Dietitian Recommendations/Changes Will continue regular diet d/t signs and symptoms of malnutrition. Will continue to provide fortified foods at meals. Will continue 120mL Glucerna ONS w/ meals. Lab / Micro Data Result Diagrams: 07/09/21 03:35 07/09/21 03:35 Labs: Laboratory Results - last 24 hr 07/08/21 08:00: Differential Comment SCANNED 07/08/21 11:42: POC Glucose 169 H 07/08/21 15:59: POC Glucose 271 H 07/08/21 21:22: POC Glucose 179 H 07/09/21 03:35: WBC 12.9 H, RBC 4.18 L, Hgb 12.7 L, Hct 37.3 L, MCV 89.2, MCH 30.4, MCHC 34.0, RDW Std Deviation 55.6 H, RDW Coeff of Eduarda 17.1 H, Plt Count 419, MPV 11.7, Immature Gran % (Auto) 0.500, Neut % (Auto) 92.9 H, Lymph % (Auto) 3.5 L, [place] % (Auto) 2.9, Eos % (Auto) 0.1, Baso % (Auto) 0.1, Absolute Neuts (auto) 12.0 H, Absolute Lymphs (auto) 0.45 L, Nucleated RBC % 0, Differential Comment SCANNED 07/09/21 03:35: Sodium 138, Potassium 4.1, Chloride 103, Carbon Dioxide 27.0, Anion Gap 8, BUN 70 H, Creatinine 1.40 H, Estim Creat Clear Calc 38.32, Est GFR (MDRD) Af Amer 63, Est GFR (MDRD) Non-Af 52 L, BUN/Creatinine Ratio 50.0 H, Glucose 127 H, Calcium 8.6, Phosphorus 3.5, Magnesium 2.2 07/09/21 05:52: POC Glucose 126 H Micro: Microbiology 07/01/21 20:10 Blood Culture (Wb) - Anticubital Left Blood Culture - Final No growth in 5 days. 07/01/21 20:20 Blood Culture (Wb) - Left Wrist Blood Culture - Final No growth in 5 days. 07/02/21 07:00 Sputum, Expectorated/Coughed Gram Stain - Final 07/02/21 07:00 Sputum, Expectorated/Coughed Respiratory Culture - Final 07/01/21 22:12 Urine, Clean Catch Urine Culture - Final Culture exhibits no growth. 07/02/21 05:35 Mucosa - Nasopharyngeal Respiratory Panel (PCR) - Final 07/02/21 07:00 Urine, Random Legionella Antigen - Final 07/02/21 07:00 Urine, Random Streptococcus pneumoniae Antigen (M - Final 07/01/21 20:58 Mucosa - Nose SARS-CoV-2 Antigen (Rapid) - Final SARS-CoV-2 (COVID 19) Physical Exam Narrative General: Alert, Oriented x3, Cooperative, on Airvo HEENT: Atraumatic, PERRLA, EOMI, Normocephalic Oral: Dry mucosa Neck: Supple Lungs: Air entry diminished in bilateral lung bases. Bilateral coarse crepitations and wheezing. Cardiovascular: Regular rate, Regular Rhythm, Normal S1, Normal S2, No murmurs Abdomen: Bowel Sounds Present, Soft, Non Tender, Non-Distended Extremities: No edema Assessment & Plan Assessment/Plan (1) COVID-19: (2) Encephalopathy acute: (3) Acute hypoxemic respiratory failure due to COVID-19: (4) Chronic systolic congestive heart failur: (5) Diabetes mellitus type II: (6) Hypertension: (7) Hyperlipidemia: QUALIFIERS: Hyperlipidemia type: unspecified Qualified Code(s): E78.5 - Hyperlipidemia, unspecified (8) Alzheimer's disease: (9) Hairy cell leukemia, in remission: PLAN: 1. Acute hypoxic respiratory failure secondary to COVID-19 pneumonia, remains about the same Status post Pfizer vaccine in January Completed Remdesivir, Decadron IV day ; will complete on 07/10/21 Pulmonology following 2. MOISES, resolved, secondary to prerenal causes from COVID; ATN ruled out in this admission 3. Hypertension, controlled, continue losartan 50 mg daily 4. Rest of chronic medical problems -type II DM, hyperlipidemia,heart failure with reduced EF, EF 35% Will continue on rest of home meds Charges/Coding Visit Charges Inpatient E&M: 74006 Subs Hosp L2
[2021-07-09 11:31] LABS: Bedside Glucose 185 mg/dL (70-110)
[2021-07-09] MEDS: Insulin Lispro 100 UNIT/ML INSULN.PEN SC ×3 (11:32→21:53)
[2021-07-09 13:35] LABS: Base Excess -1 mmol/L (-2 to +2); Bicarbonate 23.7 mmol/L (22-26); Blood Gas Specimen Type ART; FI02 91; PO2 68 mmHG (75-100); SITE R Radial; SO2 94 % (95-99); Total Carbon Dioxide 25 mmol/L; pCO2 35.4 mmHg (35-45); pH 7.43 (7.35-7.45)
[2021-07-09] MEDS: Clotrimazole 1 APPLIC Tube TOPICAL ×2 (16:53→21:54)
[2021-07-09] MEDS: CHLORHEXIDINE GLUC 2% CLOTH 1 EACH TOWELETTE TOPICAL (16:53)
[2021-07-09 17:45] LABS: Bedside Glucose 205 mg/dL (70-110)
[2021-07-09] MEDS: Donepezil HCl 10 MG Tablet PO (21:43)
[2021-07-09] MEDS: oxyCODONE 5 MG Tablet PO (21:44)
[2021-07-09] MEDS: Atorvastatin Calcium 10 MG Tablet PO (21:47)
[2021-07-09 23:05] LABS: Bedside Glucose 255 mg/dL (70-110)
[2021-07-10] VITALS (31 sets, daily range): BP systolic 93–153; BP diastolic 52–93; PULSE 49–90; RESP 13–22; TEMP 36–37.2; O2SAT 91–98
--- NOTE | 2021-07-10 05:09 | CPS ---
decreased o2 to 88%
--- NOTE | 2021-07-10 06:45 | PCM.PN.INT ---
Assessment & Plan Assessment/Plan (1) Acute hypoxemic respiratory failure due to COVID-19: PLAN: RECOMMENDATIONS: 1. Continue to wean FiO2 as tolerated to maintain saturations at or above 90%. 2. Continue Lovenox twice daily. 3. Encourage incentive spirometer use and mobilize patient as tolerated. 4. Maintain euvolemic state with IV diuretic therapy as tolerated by hemodynamics and renal function. IMPRESSIONS: 1. Acute hypoxemic respiratory failure secondary to COVID-19 pneumonia The patient was previously vaccinated in the spring 2020 and presented to the hospital with weakness and dyspnea over the course of the last week. The patient has already been initiated on remdesivir and Decadron, which will be continued. We will monitor liver and renal function accordingly. D-dimer was elevated at 1.96. However, CTA showed no evidence for PE. The patient will be continued on low-dose twice daily Lovenox. Clinical suspicion for worsening respiratory status secondary to derecruitment associated with sleeping without BiPAP. Patient has responded well to BiPAP therapy. Continue to wean FiO2 as tolerated. Likely okay to use Airvo during the day while awake, but would continue to monitor in the intensive care unit as patient is still at high risk for intubation. 2. Acute kidney injury Likely prerenal in etiology, as the patient has responded to fluid resuscitation. Continue to monitor urine output. No current indication for renal replacement therapy. 3. Advanced age/hypertension/hyperlipidemia/Alzheimer's dementia/BPH Complicates care, management, recovery and prognosis. Continue home medications as indicated. Despite significant baseline reported mild dementia, family has elected to remain aggressive at this time. This note was generated with [employer] dictation software. It may contain incorrect words, spelling, and punctuation that were not noted in checking the note before signing. Subjective Subjective The patient was seen and examined at the bedside this morning. Events from the last 24 hours have been reviewed. The patient is currently afebrile, hemodynamically stable and maintaining appropriate oxygen saturations on Airvo heated high flow with an FiO2 requirement of 88% and flow rate of 45 L/min. The patient is still periodically requiring AVAPS support as well. The patient has already completed a treatment course of remdesivir, but remains on Decadron daily. Objective Data Objective Data The patient's most recent lab work, culture data and imaging studies have all been personally reviewed. Rapid coronavirus antigen testing was positive on July 01. Vital Signs: Vital Signs Temp Pulse Resp BP Pulse Ox 98 F 51 L 14 119/64 95 07/10/21 04:00 07/10/21 06:00 07/10/21 06:00 07/10/21 06:00 07/10/21 06:00 Oxygen Flow Rate (L/min) 45 Oxygen Delivery Method Airvo Weight: 63.321 kg Body Mass Index (BMI) 24.3 Intake & Output: Intake and Output for Last 24 Hours 07/08/21 07/09/21 07/10/21 23:59 23:59 23:59 Intake Total 700 / 700 1030 / 1030 270 / 270 Output Total 1200 / 1200 1205 / 1205 250 / 250 Balance -500 / -500 -175 / -175 Medical Nutrition Assessment Dietitian: Malnutrition Criteria Met Start: 07/02/21 09:48 Freq: Status: Active Protocol: Document 07/09/21 12:10 BP (Rec: 07/09/21 12:10 BP [id number]) Nutrition Malnutrition Evidence of Malnutrition Exists Yes Malnutrition (severe): Acute Illness/Injury Evidenced By Suboptimal Energy Intake ( Severe),Weight Loss (Severe) Intake Problem Inadequate Oral Intake Etiology r/t inadequate energy intake d /t resp. failure Signs/Symptoms as evidenced by estimated PO intake meeting <50% of nutritional needs Status Resolved Problem Clinical Problem Acute Disease or Injury Related Malnutrition Etiology severe, acute related to acute illness and decreased appetite Signs/Symptoms as evidenced by 6.237kg/8.8% wt loss x 5 days; estimated PO intake meeting <50% of estimated nutritional needs x 1 week Status Active Problem Recommendation Dietitian Recommendations/Changes Will continue regular diet d/t signs and symptoms of malnutrition. Will continue to provide fortified foods at meals. Will continue 120mL Glucerna ONS w/ meals. Lab / Micro Data Attestation: I reviewed the patient's lab results. Result Diagrams: 07/09/21 03:35 07/09/21 03:35 Labs: Laboratory Results - last 24 hr 07/09/21 11:15: POC Glucose 185 H 07/09/21 16:52: POC Glucose 205 H 07/09/21 21:52: POC Glucose 255 H Micro: Microbiology 07/01/21 20:10 Blood Culture (Wb) - Anticubital Left Blood Culture - Final No growth in 5 days. 07/01/21 20:20 Blood Culture (Wb) - Left Wrist Blood Culture - Final No growth in 5 days. 07/02/21 07:00 Sputum, Expectorated/Coughed Gram Stain - Final 07/02/21 07:00 Sputum, Expectorated/Coughed Respiratory Culture - Final 07/01/21 22:12 Urine, Clean Catch Urine Culture - Final Culture exhibits no growth. 07/02/21 05:35 Mucosa - Nasopharyngeal Respiratory Panel (PCR) - Final 07/02/21 07:00 Urine, Random Legionella Antigen - Final 07/02/21 07:00 Urine, Random Streptococcus pneumoniae Antigen (M - Final 07/01/21 20:58 Mucosa - Nose SARS-CoV-2 Antigen (Rapid) - Final SARS-CoV-2 (COVID 19) ABG Data ABG results: ABG 07/09/21 13:28 Specimen Type ART Sample Site R Radial pH 7.43 Bicarbonate Actual 23.7 Total CO2 25 Base Excess -1 O2 Saturation 94 L O2 % 91 ABG pCO2 35.4 ABG pO2 68 L Clinical Comments 91% Airvo 45L Physical Exam Const alert General Appearance: cooperative Orientation / Consciousness: confused Nutritional Appearance: thin HEENT normocephalic and head/scalp atraumatic Eyes PERRL, EOMs intact bilaterally and conjunctivae normal Neck supple General: trachea midline Chest Chest: symmetrical chest wall rise Resp Auscultation: diminished lung sounds; Negative for rales, rhonchi or wheezes Cardio regular rate, regular rhythm, no murmurs and no gallops GI normal to inspection, nondistended, normoactive bowel sounds Extremity no clubbing, cyanosis or edema Skin no rashes or lesions noted Neuro moves all extremities and no focal motor deficits Psych cooperative and affect normal Charges/Coding Visit Charges Inpatient E&M: 07356 Subs Hosp L3
--- NOTE | 2021-07-10 08:19 | PCM.PN.HOSP ---
Subjective Subjective A 81-year-old gentleman admitted with progressive shortness of breath diagnosed with acute hypoxic respiratory failure secondary to SARS-CoV-2 pneumonia Objective Data Objective Data Vital Signs: Vital Signs Temp Pulse Resp BP Pulse Ox 98 F 51 L 14 119/64 96 07/10/21 04:00 07/10/21 06:00 07/10/21 06:00 07/10/21 06:00 07/10/21 07:25 Oxygen Flow Rate (L/min) 45 Oxygen Delivery Method Airvo Weight: 63.321 kg Body Mass Index (BMI) 24.3 Intake & Output: Intake and Output for Last 24 Hours 07/08/21 07/09/21 07/10/21 23:59 23:59 23:59 Intake Total 700 / 700 1030 / 1030 270 / 270 Output Total 1200 / 1200 1205 / 1205 250 / 250 Balance -500 / -500 -175 / -175 Medical Nutrition Assessment Dietitian: Malnutrition Criteria Met Start: 07/02/21 09:48 Freq: Status: Active Protocol: Document 07/09/21 12:10 BP (Rec: 07/09/21 12:10 BP [id number]) Nutrition Malnutrition Evidence of Malnutrition Exists Yes Malnutrition (severe): Acute Illness/Injury Evidenced By Suboptimal Energy Intake ( Severe),Weight Loss (Severe) Intake Problem Inadequate Oral Intake Etiology r/t inadequate energy intake d /t resp. failure Signs/Symptoms as evidenced by estimated PO intake meeting <50% of nutritional needs Status Resolved Problem Clinical Problem Acute Disease or Injury Related Malnutrition Etiology severe, acute related to acute illness and decreased appetite Signs/Symptoms as evidenced by 6.237kg/8.8% wt loss x 5 days; estimated PO intake meeting <50% of estimated nutritional needs x 1 week Status Active Problem Recommendation Dietitian Recommendations/Changes Will continue regular diet d/t signs and symptoms of malnutrition. Will continue to provide fortified foods at meals. Will continue 120mL Glucerna ONS w/ meals. Lab / Micro Data Result Diagrams: 07/09/21 03:35 07/09/21 03:35 Labs: Laboratory Results - last 24 hr 07/09/21 11:15: POC Glucose 185 H 07/09/21 16:52: POC Glucose 205 H 07/09/21 21:52: POC Glucose 255 H Micro: Microbiology 07/01/21 20:10 Blood Culture (Wb) - Anticubital Left Blood Culture - Final No growth in 5 days. 07/01/21 20:20 Blood Culture (Wb) - Left Wrist Blood Culture - Final No growth in 5 days. 07/02/21 07:00 Sputum, Expectorated/Coughed Gram Stain - Final 07/02/21 07:00 Sputum, Expectorated/Coughed Respiratory Culture - Final 07/01/21 22:12 Urine, Clean Catch Urine Culture - Final Culture exhibits no growth. 07/02/21 05:35 Mucosa - Nasopharyngeal Respiratory Panel (PCR) - Final 07/02/21 07:00 Urine, Random Legionella Antigen - Final 07/02/21 07:00 Urine, Random Streptococcus pneumoniae Antigen (M - Final 07/01/21 20:58 Mucosa - Nose SARS-CoV-2 Antigen (Rapid) - Final SARS-CoV-2 (COVID 19) ABG Data ABG results: ABG 07/09/21 13:28 Specimen Type ART Sample Site R Radial pH 7.43 Bicarbonate Actual 23.7 Total CO2 25 Base Excess -1 O2 Saturation 94 L O2 % 91 ABG pCO2 35.4 ABG pO2 68 L Clinical Comments 91% Airvo 45L Physical Exam Narrative GENERAL: Dyspneic at rest on Airvo HEENT: Atraumatic; EYES; Anicteric, Normal Conjunctiva NECK; supple, normal thyroid, RESPIRATORY: Diminished to auscultation CARDIOVASCULAR: Regular S1 S2, GI: soft, normoactive bowel sounds, : No Renal angle tenderness; EXTREMITIES: No edema, no clubbing, MUSCULOSKELETAL: no muscle waisting NEURO: Awake; no lateralizing signs. SKIN: No Rash PSYCH; Flat affect Assessment & Plan Assessment/Plan (1) COVID-19: (2) Encephalopathy acute: (3) Acute hypoxemic respiratory failure due to COVID-19: (4) Chronic systolic congestive heart failur: (5) Diabetes mellitus type II: (6) Hypertension: (7) Hyperlipidemia: QUALIFIERS: Hyperlipidemia type: unspecified Qualified Code(s): E78.5 - Hyperlipidemia, unspecified (8) Alzheimer's disease: (9) Hairy cell leukemia, in remission: PLAN: A 81-year-old gentleman admitted with progressive shortness of breath diagnosed with acute hypoxic respiratory failure secondary to SARS-CoV-2 pneumonia 1. Acute hypoxic respiratory failure secondary to SARS-CoV-2 pneumonia. Patient has completed a course of remdesivir currently on Decadron which is due to be completed on 07/10/2021. Patient remains on supplemental oxygen via Airvo 2. Acute kidney injury ?Resolved was attributed to prerenal azotemia 3. Essential hypertension ?Patient blood pressure controlled currently on losartan did continue 4. BPH ?Patient is on both finasteride as well as tamsulosin did continue 5. Diabetes mellitus type 2 ?Patient is on Metformin at home held please on Accu-Cheks before meals and at bedtime with sliding scale coverage 6. Dyslipidemia -Patient is on statin therapy, continued at home dose 7. Chronic congestive heart failure with reduced ejection fraction ?EF 35% currently stable 8. DVT prophylaxis ?Lovenox 40 mg SC twice daily Charges/Coding Visit Charges Inpatient E&M: 02969 Subs Hosp L2
[2021-07-10] MEDS: Memantine Hydrochloride 5 MG Tablet PO ×2 (08:59→20:59)
[2021-07-10] MEDS: Losartan Potassium 50 MG Tablet PO (08:59)
[2021-07-10] MEDS: Tamsulosin HCl 0.4 MG Capsule PO (08:59)
[2021-07-10] MEDS: Enoxaparin 40 MG/0.4 ML Syringe SC ×2 (08:59→20:59)
[2021-07-10] MEDS: guaiFENesin 1,200 MG Tablet 1200 MG PO ×2 (08:59→20:59)
[2021-07-10] MEDS: PARoxetine 10 MG Tablet PO (08:59)
[2021-07-10] MEDS: Finasteride 5 MG Tablet PO (08:59)
[2021-07-10] MEDS: Allopurinol 300 MG Tablet PO (08:59)
[2021-07-10] MEDS: 0.9% Saline Lock 10 ML Syringe IV (08:59)
[2021-07-10] MEDS: dexAMETHasone 10 MG/ML Vial 6 MG IV (08:59)
[2021-07-10] MEDS: Clotrimazole 1 APPLIC Tube TOPICAL ×2 (09:00→20:59)
[2021-07-10] MEDS: Menthol/Lanolin/Calamine/Znox 113 GM Tube 1 APPLIC TOPICAL ×2 (09:00→20:58)
[2021-07-10] MEDS: CHLORHEXIDINE GLUC 2% CLOTH 1 EACH TOWELETTE TOPICAL (09:00)
[2021-07-10] MEDS: Insulin Lispro 100 UNIT/ML INSULN.PEN SC ×3 (11:29→20:59)
[2021-07-10 11:40] LABS: Bedside Glucose 229 mg/dL (70-110)
[2021-07-10 16:26] LABS: Bedside Glucose 198 mg/dL (70-110)
--- NOTE | 2021-07-10 16:59 | CASEMGMT ---
Social Work Note SW following for likely SNF placement. Pt on Airvo today. SW to meet with pt once pt is more stable to [facility] SNF. Plan: Likely SNF [facility] [employer], [employer]
[2021-07-10] MEDS: Atorvastatin Calcium 10 MG Tablet PO (20:59)
[2021-07-10] MEDS: Donepezil HCl 10 MG Tablet PO (20:59)
[2021-07-10 21:06] LABS: Bedside Glucose 202 mg/dL (70-110)
[2021-07-11] VITALS (34 sets, daily range): BP systolic 100–150; BP diastolic 51–85; PULSE 53–96; RESP 14–27; TEMP 35.9–36.4; O2SAT 74–97
[2021-07-11 04:48] LABS: Absolute Lymphocyte Count 0.44 X10^3/uL (0.83-4.51); Absolute Neutrophil Count 10.5 X10^3/uL (2.0-7.7); Basophil# 0.01 X10^3/uL; Basophil% 0.1 % (0-1); Eosinophil# 0.01 X10^3/uL; Eosinophils% 0.1 % (0-5); Hematocrit 35.2 % (40-54); Hemoglobin 11.8 g/dL (13.0-16.5); Lymphocyte # 0.44 X10^3/ul (0.83-4.51); Lymphocyte % 3.8 % (19-41); Mean Corp Hgb Conc 33.5 g/dL (32-36); Mean Corpuscular Hgb 30.2 pg (27.0-32.0); Mean Platelet Vol. 11.1 fl (6.2-12.0); Monocyte# 0.56 X10^3/uL; Monocyte% 4.8 % (0-10); NRBC Flagged by Analyzer 0 % (0-5); Neutrophil # 10.48 X10^3/uL (2.7-7.7); Neutrophil % 90.8 % (47-70); POSITIVE DIFFERENTIAL YES; Platelet Count 368 K/mm3 (150-450); RBC Distribution Width CV 17.2 % (11.6-14.6); Red Blood Count 3.91 M/mm3 (4.6-6.2); White Blood Count 11.6 K/mm3 (4.4-11.0)
[2021-07-11 04:58] LABS: Differential Indicated SCAN CRITERIA MET
[2021-07-11 05:03] LABS: Anion Gap 5 (5-15); BUN 55 mg/dL (7-18); BUN/Creat Ratio 59.8 RATIO (10-20); Calcium,Total 8.5 mg/dL (8.5-10.1); Chloride 103 mmol/L (98-107); Creatinine, Serum 0.92 mg/dL (0.70-1.30); EST Glomerular Filtration Rate 84 mL/min (>60); Est Glom Filt Rate - Afr Amer 102 mL/min (>60); Estimated Creatinine Clearance 58.51 ml/min; Glucose 107 mg/dL (74-106); Potassium 4.1 mmol/L (3.5-5.1); Sodium Level 136 mmol/L (136-145)
[2021-07-11 05:25] LABS: Differential Comment SCANNED
[2021-07-11] MEDS: 0.9% Saline Lock 10 ML Syringe IV ×2 (06:40→09:05)
[2021-07-11] MEDS: oxyCODONE 5 MG Tablet PO (06:41)
[2021-07-11] MEDS: Acetaminophen 325 MG Tablet 650 MG PO (06:41)
[2021-07-11 06:51] LABS: Bedside Glucose 96 mg/dL (70-110)
--- NOTE | 2021-07-11 07:19 | PN.HOSP_ITS ---
Subjective Subjective Patient still requiring high flow oxygen Objective Data Objective Data Vital Signs: Vital Signs Temp Pulse Resp BP Pulse Ox 96.7 F L 66 22 H 146/70 H 92 07/11/21 03:00 07/11/21 06:24 07/11/21 06:24 07/11/21 05:00 07/11/21 06:24 Oxygen Flow Rate (L/min) 45 Oxygen Delivery Method Bi-pap Weight: 64.92 kg Body Mass Index (BMI) 24.3 Intake & Output: Intake and Output for Last 24 Hours 07/09/21 07/10/21 07/11/21 23:59 23:59 23:59 Intake Total 1030 / 1030 2080 / 2080 120 / 120 Output Total 1205 / 1205 1600 / 1600 300 / 300 Balance -175 / -175 480 / 480 -180 / -180 Medical Nutrition Assessment Dietitian: Malnutrition Criteria Met Start: 07/02/21 09:48 Freq: Status: Active Protocol: Document 07/09/21 12:10 BP (Rec: 07/09/21 12:10 BP [id number]) Nutrition Malnutrition Evidence of Malnutrition Exists Yes Malnutrition (severe): Acute Illness/Injury Evidenced By Suboptimal Energy Intake ( Severe),Weight Loss (Severe) Intake Problem Inadequate Oral Intake Etiology r/t inadequate energy intake d /t resp. failure Signs/Symptoms as evidenced by estimated PO intake meeting <50% of nutritional needs Status Resolved Problem Clinical Problem Acute Disease or Injury Related Malnutrition Etiology severe, acute related to acute illness and decreased appetite Signs/Symptoms as evidenced by 6.237kg/8.8% wt loss x 5 days; estimated PO intake meeting <50% of estimated nutritional needs x 1 week Status Active Problem Recommendation Dietitian Recommendations/Changes Will continue regular diet d/t signs and symptoms of malnutrition. Will continue to provide fortified foods at meals. Will continue 120mL Glucerna ONS w/ meals. Lab / Micro Data Result Diagrams: 07/11/21 04:35 07/11/21 04:35 Labs: Laboratory Results - last 24 hr 07/10/21 11:27: POC Glucose 229 H 07/10/21 16:14: POC Glucose 198 H 07/10/21 20:57: POC Glucose 202 H 07/11/21 04:35: WBC 11.6 H, RBC 3.91 L, Hgb 11.8 L, Hct 35.2 L, MCV 90.0, MCH 30.2, MCHC 33.5, RDW Std Deviation 57.0 H, RDW Coeff of Eduarda 17.2 H, Plt Count 368, MPV 11.1, Immature Gran % (Auto) 0.400, Neut % (Auto) 90.8 H, Lymph % (Auto) 3.8 L, [place] % (Auto) 4.8, Eos % (Auto) 0.1, Baso % (Auto) 0.1, Absolute Neuts (auto) 10.5 H, Absolute Lymphs (auto) 0.44 L, Nucleated RBC % 0, Differential Comment SCANNED 07/11/21 04:35: Sodium 136, Potassium 4.1, Chloride 103, Carbon Dioxide 28.0, Anion Gap 5, BUN 55 H, Creatinine 0.92, Estim Creat Clear Calc 58.51, Est GFR (MDRD) Af Amer 102, Est GFR (MDRD) Non-Af 84, BUN/Creatinine Ratio 59.8 H, Glucose 107 H, Calcium 8.5 07/11/21 06:38: POC Glucose 96 Micro: Microbiology 07/01/21 20:10 Blood Culture (Wb) - Anticubital Left Blood Culture - Final No growth in 5 days. 07/01/21 20:20 Blood Culture (Wb) - Left Wrist Blood Culture - Final No growth in 5 days. 07/02/21 07:00 Sputum, Expectorated/Coughed Gram Stain - Final 07/02/21 07:00 Sputum, Expectorated/Coughed Respiratory Culture - Final 07/01/21 22:12 Urine, Clean Catch Urine Culture - Final Culture exhibits no growth. 07/02/21 05:35 Mucosa - Nasopharyngeal Respiratory Panel (PCR) - Final 07/02/21 07:00 Urine, Random Legionella Antigen - Final 07/02/21 07:00 Urine, Random Streptococcus pneumoniae Antigen (M - Final 07/01/21 20:58 Mucosa - Nose SARS-CoV-2 Antigen (Rapid) - Final SARS-CoV-2 (COVID 19) Physical Exam Narrative GENERAL: Dyspneic at rest on Airvo HEENT: Atraumatic; EYES; Anicteric, Normal Conjunctiva NECK; supple, normal thyroid, RESPIRATORY: Diminished to auscultation CARDIOVASCULAR: Regular S1 S2, GI: soft, normoactive bowel sounds, : No Renal angle tenderness; EXTREMITIES: No edema, no clubbing, MUSCULOSKELETAL: no muscle waisting NEURO: Awake; no lateralizing signs. SKIN: No Rash PSYCH; Flat affect Assessment & Plan Assessment/Plan (1) COVID-19: (2) Encephalopathy acute: (3) Acute hypoxemic respiratory failure due to COVID-19: (4) Chronic systolic congestive heart failur: (5) Diabetes mellitus type II: (6) Hypertension: (7) Hyperlipidemia: QUALIFIERS: Hyperlipidemia type: unspecified Qualified Code(s): E78.5 - Hyperlipidemia, unspecified (8) Alzheimer's disease: (9) Hairy cell leukemia, in remission: PLAN: A 81-year-old gentleman admitted with progressive shortness of breath diagnosed with acute hypoxic respiratory failure secondary to SARS-CoV-2 pneumonia 1. Acute hypoxic respiratory failure secondary to SARS-CoV-2 pneumonia. Patient has completed a course of remdesivir currently on Decadron which is due to be completed on 07/10/2021. Patient remains on supplemental oxygen via Airvo -07/11/2021; remains in ICU requiring high flow oxygen 2. Acute kidney injury ?Resolved was attributed to prerenal azotemia 3. Essential hypertension ?Patient blood pressure controlled currently on losartan did continue 4. BPH ?Patient is on both finasteride as well as tamsulosin did continue 5. Diabetes mellitus type 2 ?Patient is on Metformin at home held please on Accu-Cheks before meals and at bedtime with sliding scale coverage 6. Dyslipidemia -Patient is on statin therapy, continued at home dose 7. Chronic congestive heart failure with reduced ejection fraction ?EF 35% currently stable 8. DVT prophylaxis ?Lovenox 40 mg SC twice daily Charges/Coding Visit Charges Inpatient E&M: 51610 Subs Hosp L2
--- NOTE | 2021-07-11 07:26 | PCM.PN.INT ---
Assessment & Plan Assessment/Plan (1) Acute hypoxemic respiratory failure due to COVID-19: PLAN: RECOMMENDATIONS: 1. Continue to wean FiO2 as tolerated to maintain saturations at or above 90%. 2. Continue Lovenox twice daily. 3. Encourage incentive spirometer use and mobilize patient as tolerated. 4. Maintain euvolemic state with IV diuretic therapy as tolerated by hemodynamics and renal function. IMPRESSIONS: 1. Acute hypoxemic respiratory failure secondary to COVID-19 pneumonia The patient was previously vaccinated in the spring 2020 and presented to the hospital with weakness and dyspnea over the course of one week. The patient has since completed treatment courses of both remdesivir and Decadron. The patient will be continued on low-dose twice daily Lovenox. He will be continued on heated high flow oxygen as tolerated. Continue to wean FiO2 as tolerated. Recommend physical therapy to work with the patient. 2. Acute kidney injury Likely prerenal in etiology, as the patient has responded to fluid resuscitation. Continue to monitor urine output. No current indication for renal replacement therapy. 3. Advanced age/hypertension/hyperlipidemia/Alzheimer's dementia/BPH Complicates care, management, recovery and prognosis. Continue home medications as indicated. This note was generated with [employer] dictation software. It may contain incorrect words, spelling, and punctuation that were not noted in checking the note before signing. Subjective Subjective The patient was seen and examined at the bedside this morning. Events from the last 24 hours have been reviewed. The patient is currently afebrile, hemodynamically stable and maintaining appropriate oxygen saturations on Airvo heated high flow with an FiO2 requirement of 91%. The patient is currently documented to be overall net +413 mL for the hospital admission. The patient has completed treatment courses of both remdesivir and Decadron. Objective Data Objective Data The patient's most recent lab work, culture data and imaging studies have all been personally reviewed. Rapid coronavirus antigen testing was positive on July 01. Vital Signs: Vital Signs Temp Pulse Resp BP Pulse Ox 96.7 F L 66 22 H 146/70 H 92 07/11/21 03:00 07/11/21 06:24 07/11/21 06:24 07/11/21 05:00 07/11/21 06:24 Oxygen Flow Rate (L/min) 45 Oxygen Delivery Method Bi-pap Weight: 64.92 kg Body Mass Index (BMI) 24.3 Intake & Output: Intake and Output for Last 24 Hours 07/09/21 07/10/21 07/11/21 23:59 23:59 23:59 Intake Total 1030 / 1030 2080 / 2080 120 / 120 Output Total 1205 / 1205 1600 / 1600 300 / 300 Balance -175 / -175 480 / 480 -180 / -180 Medical Nutrition Assessment Dietitian: Malnutrition Criteria Met Start: 07/02/21 09:48 Freq: Status: Active Protocol: Document 07/09/21 12:10 BP (Rec: 07/09/21 12:10 BP [id number]) Nutrition Malnutrition Evidence of Malnutrition Exists Yes Malnutrition (severe): Acute Illness/Injury Evidenced By Suboptimal Energy Intake ( Severe),Weight Loss (Severe) Intake Problem Inadequate Oral Intake Etiology r/t inadequate energy intake d /t resp. failure Signs/Symptoms as evidenced by estimated PO intake meeting <50% of nutritional needs Status Resolved Problem Clinical Problem Acute Disease or Injury Related Malnutrition Etiology severe, acute related to acute illness and decreased appetite Signs/Symptoms as evidenced by 6.237kg/8.8% wt loss x 5 days; estimated PO intake meeting <50% of estimated nutritional needs x 1 week Status Active Problem Recommendation Dietitian Recommendations/Changes Will continue regular diet d/t signs and symptoms of malnutrition. Will continue to provide fortified foods at meals. Will continue 120mL Glucerna ONS w/ meals. Lab / Micro Data Attestation: I reviewed the patient's lab results. Result Diagrams: 07/11/21 04:35 07/11/21 04:35 Labs: Laboratory Results - last 24 hr 07/10/21 11:27: POC Glucose 229 H 07/10/21 16:14: POC Glucose 198 H 07/10/21 20:57: POC Glucose 202 H 07/11/21 04:35: WBC 11.6 H, RBC 3.91 L, Hgb 11.8 L, Hct 35.2 L, MCV 90.0, MCH 30.2, MCHC 33.5, RDW Std Deviation 57.0 H, RDW Coeff of Eduarda 17.2 H, Plt Count 368, MPV 11.1, Immature Gran % (Auto) 0.400, Neut % (Auto) 90.8 H, Lymph % (Auto) 3.8 L, [place] % (Auto) 4.8, Eos % (Auto) 0.1, Baso % (Auto) 0.1, Absolute Neuts (auto) 10.5 H, Absolute Lymphs (auto) 0.44 L, Nucleated RBC % 0, Differential Comment SCANNED 07/11/21 04:35: Sodium 136, Potassium 4.1, Chloride 103, Carbon Dioxide 28.0, Anion Gap 5, BUN 55 H, Creatinine 0.92, Estim Creat Clear Calc 58.51, Est GFR (MDRD) Af Amer 102, Est GFR (MDRD) Non-Af 84, BUN/Creatinine Ratio 59.8 H, Glucose 107 H, Calcium 8.5 07/11/21 06:38: POC Glucose 96 Micro: Microbiology 07/01/21 20:10 Blood Culture (Wb) - Anticubital Left Blood Culture - Final No growth in 5 days. 07/01/21 20:20 Blood Culture (Wb) - Left Wrist Blood Culture - Final No growth in 5 days. 07/02/21 07:00 Sputum, Expectorated/Coughed Gram Stain - Final 07/02/21 07:00 Sputum, Expectorated/Coughed Respiratory Culture - Final 07/01/21 22:12 Urine, Clean Catch Urine Culture - Final Culture exhibits no growth. 07/02/21 05:35 Mucosa - Nasopharyngeal Respiratory Panel (PCR) - Final 07/02/21 07:00 Urine, Random Legionella Antigen - Final 07/02/21 07:00 Urine, Random Streptococcus pneumoniae Antigen (M - Final 07/01/21 20:58 Mucosa - Nose SARS-CoV-2 Antigen (Rapid) - Final SARS-CoV-2 (COVID 19) Physical Exam Const alert and no apparent distress General Appearance: cooperative and frail Orientation / Consciousness: confused HEENT normocephalic and head/scalp atraumatic Eyes PERRL, EOMs intact bilaterally and conjunctivae normal Neck supple General: trachea midline Resp Auscultation: diminished lung sounds; Negative for rales, rhonchi or wheezes Cardio regular rate and regular rhythm GI normal to inspection, nondistended, normoactive bowel sounds Extremity no clubbing, cyanosis or edema Skin no rashes or lesions noted Neuro CN's II-XII intact bilaterally and no focal motor deficits Psych cooperative and affect normal Charges/Coding Visit Charges Inpatient E&M: 86275 Subs Hosp L3
[2021-07-11] MEDS: Clotrimazole 1 APPLIC Tube TOPICAL ×2 (09:00→21:56)
[2021-07-11] MEDS: Losartan Potassium 50 MG Tablet PO (09:00)
[2021-07-11] MEDS: guaiFENesin 1,200 MG Tablet 1200 MG PO ×2 (09:00→21:55)
[2021-07-11] MEDS: Tamsulosin HCl 0.4 MG Capsule PO (09:00)
[2021-07-11] MEDS: Finasteride 5 MG Tablet PO (09:00)
[2021-07-11] MEDS: Allopurinol 300 MG Tablet PO (09:00)
[2021-07-11] MEDS: PARoxetine 10 MG Tablet PO (09:00)
[2021-07-11] MEDS: Enoxaparin 40 MG/0.4 ML Syringe SC ×2 (09:00→21:55)
[2021-07-11] MEDS: Memantine Hydrochloride 5 MG Tablet PO ×2 (09:00→21:55)
[2021-07-11] MEDS: Menthol/Lanolin/Calamine/Znox 113 GM Tube 1 APPLIC TOPICAL ×2 (09:01→21:54)
[2021-07-11] MEDS: CHLORHEXIDINE GLUC 2% CLOTH 1 EACH TOWELETTE TOPICAL (09:01)
[2021-07-11 09:11] LABS: Bedside Glucose 97 mg/dL (70-110)
--- NOTE | 2021-07-11 11:08 | CASEMGMT ---
TRACY FLORES participated in ICU multidisciplinary rounds. Patient is currently on Airvo FiO2@85% 45lpm. Patient was requiring moderate assistance of 2 with therapy. Plan is for SNF when medically ready pending precert. SW following patient. CM will continue to follow this patient, monitor progress with care, and plan for a safe discharge.
[2021-07-11] MEDS: Insulin Lispro 100 UNIT/ML INSULN.PEN SC (12:52)
[2021-07-11 13:01] LABS: Bedside Glucose 156 mg/dL (70-110)
[2021-07-11 17:20] LABS: Bedside Glucose 125 mg/dL (70-110)
[2021-07-11] MEDS: Donepezil HCl 10 MG Tablet PO (21:55)
[2021-07-11] MEDS: Atorvastatin Calcium 10 MG Tablet PO (21:55)
[2021-07-12] VITALS (35 sets, daily range): BP systolic 92–151; BP diastolic 47–78; PULSE 68–99; RESP 14–50; TEMP 36–36.6; O2SAT 88–509
[2021-07-12 00:46] LABS: Bedside Glucose 125 mg/dL (70-110)
[2021-07-12] MEDS: CHLORHEXIDINE GLUC 2% CLOTH 1 EACH TOWELETTE TOPICAL (06:25)
--- NOTE | 2021-07-12 06:48 | PCM.PN.INT ---
Assessment & Plan Assessment/Plan (1) Acute hypoxemic respiratory failure due to COVID-19: PLAN: RECOMMENDATIONS: 1. Continue to wean FiO2 as tolerated to maintain saturations at or above 90%. 2. Continue Lovenox twice daily. 3. Encourage incentive spirometer use and mobilize patient as tolerated. 4. Maintain euvolemic state with IV diuretic therapy as tolerated by hemodynamics and renal function. IMPRESSIONS: 1. Acute hypoxemic respiratory failure secondary to COVID-19 pneumonia The patient was previously vaccinated in the spring 2020 and presented to the hospital with weakness and dyspnea over the course of one week. The patient has since completed treatment courses of both remdesivir and Decadron. The patient will be continued on low-dose twice daily Lovenox. He will be continued on heated high flow oxygen as tolerated. Continue to wean FiO2 as tolerated. Recommend physical therapy to work with the patient. 2. Acute kidney injury Likely prerenal in etiology, as the patient has responded to fluid resuscitation. Continue to monitor urine output. No current indication for renal replacement therapy. 3. Advanced age/hypertension/hyperlipidemia/Alzheimer's dementia/BPH Complicates care, management, recovery and prognosis. Continue home medications as indicated. This note was generated with [employer] dictation software. It may contain incorrect words, spelling, and punctuation that were not noted in checking the note before signing. Subjective Subjective The patient was seen and examined at the bedside this morning. Events from the last 24 hours have been reviewed. The patient is currently afebrile, hemodynamically stable and maintaining appropriate oxygen saturations on BiPAP with an FiO2 requirement of 60%. Yesterday, the patient was able to be maintained on Airvo heated high flow with an FiO2 requirement of 90% and flow rate of 50 L/min. The patient is documented to be overall net +1 L for the hospital admission. Objective Data Objective Data The patient's most recent lab work, culture data and imaging studies have all been personally reviewed. Rapid coronavirus antigen testing was positive on July 01. Vital Signs: Vital Signs Temp Pulse Resp BP Pulse Ox 96.9 F L 71 21 H 119/67 94 07/12/21 04:00 07/12/21 05:01 07/12/21 05:01 07/12/21 05:00 07/12/21 05:01 Oxygen Flow Rate (L/min) 60 Oxygen Delivery Method Bi-pap Weight: 64.319 kg Body Mass Index (BMI) 24.3 Intake & Output: Intake and Output for Last 24 Hours 07/10/21 07/11/21 07/12/21 23:59 23:59 23:59 Intake Total 2080 / 2080 1560 / 1560 Output Total 1600 / 1600 600 / 825 500 / 500 Balance 480 / 480 960 / 735 -500 / -500 Medical Nutrition Assessment Dietitian: Malnutrition Criteria Met Start: 07/02/21 09:48 Freq: Status: Active Protocol: Document 07/11/21 11:02 RMA (Rec: 07/11/21 11:03 RMA [id number]) Nutrition Malnutrition Evidence of Malnutrition Exists Yes Malnutrition (severe): Acute Illness/Injury Evidenced By Suboptimal Energy Intake ( Severe),Weight Loss (Severe) Clinical Problem Acute Disease or Injury Related Malnutrition Etiology severe, acute related to acute illness and decreased appetite Signs/Symptoms as evidenced by 6.237kg/8.8% wt loss x 5 days; estimated PO intake meeting <50% of estimated nutritional needs x 1-2 weeks Status Active Problem Recommendation Dietitian Recommendations/Changes Will continue regular diet d/t signs and symptoms of malnutrition; restrict carbohydrates as needed once intake optimal at meals. Will continue to provide fortified foods at meals. Will continue 120mL Glucerna Shake TID w/ meals. Lab / Micro Data Attestation: I reviewed the patient's lab results. Result Diagrams: 07/12/21 04:19 07/12/21 04:19 Labs: Laboratory Results - last 24 hr 07/11/21 06:38: POC Glucose 96 07/11/21 08:50: POC Glucose 97 07/11/21 11:00: POC Glucose 156 H 07/11/21 17:09: POC Glucose 125 H 07/11/21 21:53: POC Glucose 125 H Micro: Microbiology 07/01/21 20:10 Blood Culture (Wb) - Anticubital Left Blood Culture - Final No growth in 5 days. 07/01/21 20:20 Blood Culture (Wb) - Left Wrist Blood Culture - Final No growth in 5 days. 07/02/21 07:00 Sputum, Expectorated/Coughed Gram Stain - Final 07/02/21 07:00 Sputum, Expectorated/Coughed Respiratory Culture - Final 07/01/21 22:12 Urine, Clean Catch Urine Culture - Final Culture exhibits no growth. 07/02/21 05:35 Mucosa - Nasopharyngeal Respiratory Panel (PCR) - Final 07/02/21 07:00 Urine, Random Legionella Antigen - Final 07/02/21 07:00 Urine, Random Streptococcus pneumoniae Antigen (M - Final 07/01/21 20:58 Mucosa - Nose SARS-CoV-2 Antigen (Rapid) - Final SARS-CoV-2 (COVID 19) Physical Exam Const alert and no apparent distress General Appearance: cooperative and frail Orientation / Consciousness: confused HEENT normocephalic and head/scalp atraumatic Eyes PERRL, EOMs intact bilaterally and conjunctivae normal Neck supple General: trachea midline Resp Auscultation: diminished lung sounds; Negative for rales, rhonchi or wheezes Cardio regular rate and regular rhythm GI normal to inspection, nondistended, normoactive bowel sounds Extremity no clubbing, cyanosis or edema Skin no rashes or lesions noted Neuro CN's II-XII intact bilaterally and no focal motor deficits Psych cooperative and affect normal Charges/Coding Visit Charges Inpatient E&M: 78622 Subs Hosp L3
--- NOTE | 2021-07-12 07:05 | PCM.PN.HOSP ---
Subjective Subjective Patient seen remains in ICU no significant change in his clinical condition still requiring high flow oxygen. Objective Data Objective Data Vital Signs: Vital Signs Temp Pulse Resp BP Pulse Ox 96.9 F L 69 22 H 120/74 96 07/12/21 04:00 07/12/21 07:00 07/12/21 07:00 07/12/21 07:00 07/12/21 07:00 Oxygen Flow Rate (L/min) 40 Oxygen Delivery Method Bi-pap Weight: 64.319 kg Body Mass Index (BMI) 24.3 Intake & Output: Intake and Output for Last 24 Hours 07/10/21 07/11/21 07/12/21 23:59 23:59 23:59 Intake Total 2080 / 2080 1560 / 1560 Output Total 1600 / 1600 600 / 825 500 / 500 Balance 480 / 480 960 / 735 -500 / -500 Medical Nutrition Assessment Dietitian: Malnutrition Criteria Met Start: 07/02/21 09:48 Freq: Status: Active Protocol: Document 07/11/21 11:02 RMA (Rec: 07/11/21 11:03 RMA [id number]) Nutrition Malnutrition Evidence of Malnutrition Exists Yes Malnutrition (severe): Acute Illness/Injury Evidenced By Suboptimal Energy Intake ( Severe),Weight Loss (Severe) Clinical Problem Acute Disease or Injury Related Malnutrition Etiology severe, acute related to acute illness and decreased appetite Signs/Symptoms as evidenced by 6.237kg/8.8% wt loss x 5 days; estimated PO intake meeting <50% of estimated nutritional needs x 1-2 weeks Status Active Problem Recommendation Dietitian Recommendations/Changes Will continue regular diet d/t signs and symptoms of malnutrition; restrict carbohydrates as needed once intake optimal at meals. Will continue to provide fortified foods at meals. Will continue 120mL Glucerna Shake TID w/ meals. Lab / Micro Data Result Diagrams: 07/11/21 04:35 07/11/21 04:35 Labs: Laboratory Results - last 24 hr 07/11/21 08:50: POC Glucose 97 07/11/21 11:00: POC Glucose 156 H 07/11/21 17:09: POC Glucose 125 H 07/11/21 21:53: POC Glucose 125 H Micro: Microbiology 07/01/21 20:10 Blood Culture (Wb) - Anticubital Left Blood Culture - Final No growth in 5 days. 07/01/21 20:20 Blood Culture (Wb) - Left Wrist Blood Culture - Final No growth in 5 days. 07/02/21 07:00 Sputum, Expectorated/Coughed Gram Stain - Final 07/02/21 07:00 Sputum, Expectorated/Coughed Respiratory Culture - Final 07/01/21 22:12 Urine, Clean Catch Urine Culture - Final Culture exhibits no growth. 07/02/21 05:35 Mucosa - Nasopharyngeal Respiratory Panel (PCR) - Final 07/02/21 07:00 Urine, Random Legionella Antigen - Final 07/02/21 07:00 Urine, Random Streptococcus pneumoniae Antigen (M - Final 07/01/21 20:58 Mucosa - Nose SARS-CoV-2 Antigen (Rapid) - Final SARS-CoV-2 (COVID 19) Physical Exam Narrative GENERAL: Dyspneic at rest on BiPAP HEENT: Atraumatic; EYES; Anicteric, Normal Conjunctiva NECK; supple, normal thyroid, RESPIRATORY: Diminished to auscultation CARDIOVASCULAR: Regular S1 S2, GI: soft, normoactive bowel sounds, : No Renal angle tenderness; EXTREMITIES: No edema, no clubbing, MUSCULOSKELETAL: no muscle waisting NEURO: Awake; no lateralizing signs. SKIN: No Rash PSYCH; Flat affect Assessment & Plan Assessment/Plan (1) COVID-19: (2) Encephalopathy acute: (3) Acute hypoxemic respiratory failure due to COVID-19: (4) Chronic systolic congestive heart failur: (5) Diabetes mellitus type II: (6) Hypertension: (7) Hyperlipidemia: QUALIFIERS: Hyperlipidemia type: unspecified Qualified Code(s): E78.5 - Hyperlipidemia, unspecified (8) Alzheimer's disease: (9) Hairy cell leukemia, in remission: PLAN: A 81-year-old gentleman admitted with progressive shortness of breath diagnosed with acute hypoxic respiratory failure secondary to SARS-CoV-2 pneumonia 1. Acute hypoxic respiratory failure secondary to SARS-CoV-2 pneumonia. Patient has completed a course of remdesivir currently on Decadron which is due to be completed on 07/10/2021. Patient remains on supplemental oxygen via Airvo -07/11/2021; remains in ICU requiring high flow oxygen -07/12/2021; patient remains in ICU with no significant improvement. Will discuss with case management regarding possible consideration for a long-term acute care 2. Acute kidney injury ?Resolved was attributed to prerenal azotemia 3. Essential hypertension ?Patient blood pressure controlled currently on losartan did continue 4. BPH ?Patient is on both finasteride as well as tamsulosin did continue 5. Diabetes mellitus type 2 ?Patient is on Metformin at home held please on Accu-Cheks before meals and at bedtime with sliding scale coverage 6. Dyslipidemia -Patient is on statin therapy, continued at home dose 7. Chronic congestive heart failure with reduced ejection fraction ?EF 35% currently stable 8. DVT prophylaxis ?Lovenox 40 mg SC twice daily Charges/Coding Visit Charges Inpatient E&M: 13751 Subs Hosp L2
[2021-07-12 09:01] LABS: Bedside Glucose 97 mg/dL (70-110)
[2021-07-12 09:09] LABS: Absolute Lymphocyte Count 0.45 X10^3/uL (0.83-4.51); Absolute Neutrophil Count 8.8 X10^3/uL (2.0-7.7); Eosinophil# 0.01 X10^3/uL; Eosinophils% 0.1 % (0-5); Hematocrit 37.7 % (40-54); Hemoglobin 12.6 g/dL (13.0-16.5); Lymphocyte # 0.45 X10^3/ul (0.83-4.51); Lymphocyte % 4.6 % (19-41); Mean Corp Hgb Conc 33.4 g/dL (32-36); Mean Corpuscular Hgb 30.2 pg (27.0-32.0); Mean Corpuscular Volume 90.4 fL (80-94); Mean Platelet Vol. 11.9 fl (6.2-12.0); Monocyte# 0.48 X10^3/uL; Monocyte% 4.9 % (0-10); NRBC Flagged by Analyzer 0 % (0-5); Neutrophil # 8.81 X10^3/uL (2.7-7.7); POSITIVE DIFFERENTIAL YES; Platelet Count 392 K/mm3 (150-450); RBC Distribution Width CV 17.1 % (11.6-14.6); RBC Distribution Width SD 56.2 fl (35.1-43.9); Red Blood Count 4.17 M/mm3 (4.6-6.2); White Blood Count 9.8 K/mm3 (4.4-11.0)
[2021-07-12 09:11] LABS: Differential Indicated SCAN CRITERIA MET
[2021-07-12 09:20] LABS: Anion Gap 5 (5-15); BUN 54 mg/dL (7-18); BUN/Creat Ratio 49.1 RATIO (10-20); Calcium,Total 8.7 mg/dL (8.5-10.1); Chloride 107 mmol/L (98-107); EST Glomerular Filtration Rate 69 mL/min (>60); Est Glom Filt Rate - Afr Amer 83 mL/min (>60); Estimated Creatinine Clearance 49.54 ml/min; Glucose 103 mg/dL (74-106); Magnesium 2.6 mg/dL (1.6-2.6); Sodium Level 138 mmol/L (136-145)
[2021-07-12] MEDS: Menthol/Lanolin/Calamine/Znox 113 GM Tube 1 APPLIC TOPICAL ×2 (09:33→21:06)
[2021-07-12] MEDS: Tamsulosin HCl 0.4 MG Capsule PO (09:33)
[2021-07-12] MEDS: Losartan Potassium 50 MG Tablet PO (09:33)
[2021-07-12] MEDS: Memantine Hydrochloride 5 MG Tablet PO ×2 (09:33→21:05)
[2021-07-12] MEDS: Furosemide 40 MG/4 ML Vial IV (09:33)
[2021-07-12] MEDS: Enoxaparin 40 MG/0.4 ML Syringe SC ×2 (09:33→21:05)
[2021-07-12] MEDS: guaiFENesin 1,200 MG Tablet 1200 MG PO ×2 (09:34→21:05)
[2021-07-12] MEDS: Clotrimazole 1 APPLIC Tube TOPICAL ×2 (09:34→21:07)
[2021-07-12] MEDS: PARoxetine 10 MG Tablet PO (09:34)
[2021-07-12] MEDS: Allopurinol 300 MG Tablet PO (09:34)
[2021-07-12] MEDS: Finasteride 5 MG Tablet PO (09:34)
[2021-07-12] MEDS: 0.9% Saline Lock 10 ML Syringe IV (09:35)
[2021-07-12 12:36] LABS: Bedside Glucose 111 mg/dL (70-110)
--- NOTE | 2021-07-12 14:12 | CASEMGMT ---
SW called to check in w/her in regard to discharge plan. still in agreement w/pt needing [facility] facility. SW reviewed w/ on the phone list of nursing homes in their preferred geographic area, that take their insurance, will take pt with [facility] recently, and quality data. asked specifically about [facility]. SW explained that they require 2 negative tests and pt will likely not test negative at this time. Also, they are not in network w/insurance. After some discussion SW did offer to find out SNF benefits for in and out of network, to see if this may offer additional choices. SW called [facility]. Pt has no out of network benefits for [facility] facility. For in network, pt would be covered at 100% for days 1-20, and would have a copay days 21-100 of $184/day, until maximum out of pocket is reached. Pt's maximum out of pocket is $4500, pt has spent $1184. SW reviewed all of this information w/ over the phone. SW explained the cost of SNF if they do not go through insurance. states that they cannot afford this, spoke about wishing they had supplemental insurance. SW offered support to . plans to call [facility] and [facility] as these are the two closest facilities that will take a pt with [facility] and take their insurance. She would like to go visit them, and will call SW back with what she would like to do. We did speak about if pt would need community engagement manager care, they could look into Medicaid. SW will continue to follow, will make referral when appropriate to SNF of 's choice, will also send information to O to start the process to get the okay to start the prior authorization. BRANDIE Dumont
[2021-07-12 17:11] LABS: Bedside Glucose 118 mg/dL (70-110)
[2021-07-12] MEDS: Donepezil HCl 10 MG Tablet PO (21:05)
[2021-07-12] MEDS: Atorvastatin Calcium 10 MG Tablet PO (21:05)
[2021-07-12 21:21] LABS: Bedside Glucose 138 mg/dL (70-110)
[2021-07-13] VITALS (20 sets, daily range): BP systolic 100–130; BP diastolic 41–95; PULSE 61–91; RESP 14–92; TEMP 36.3–37.2; O2SAT 80–96
[2021-07-13 05:29] LABS: Absolute Lymphocyte Count 0.72 X10^3/uL (0.83-4.51); Absolute Neutrophil Count 8.8 X10^3/uL (2.0-7.7); Basophil# 0.01 X10^3/uL; Basophil% 0.1 % (0-1); Eosinophil# 0.04 X10^3/uL; Eosinophils% 0.4 % (0-5); Lymphocyte # 0.72 X10^3/ul (0.83-4.51); Lymphocyte % 7.1 % (19-41); Mean Corp Hgb Conc 33.3 g/dL (32-36); Mean Corpuscular Hgb 30.6 pg (27.0-32.0); Mean Corpuscular Volume 91.8 fL (80-94); Mean Platelet Vol. 11.3 fl (6.2-12.0); Monocyte# 0.59 X10^3/uL; Monocyte% 5.8 % (0-10); NRBC Flagged by Analyzer 0 % (0-5); Neutrophil # 8.78 X10^3/uL (2.7-7.7); POSITIVE MORPHOLOGY YES; Platelet Count 363 K/mm3 (150-450); RBC Distribution Width CV 17.6 % (11.6-14.6); RBC Distribution Width SD 58.5 fl (35.1-43.9); Red Blood Count 3.92 M/mm3 (4.6-6.2); White Blood Count 10.2 K/mm3 (4.4-11.0)
[2021-07-13 05:41] LABS: Differential Indicated SCAN CRITERIA MET
[2021-07-13 05:58] LABS: BUN 58 mg/dL (7-18); Creatinine, Serum 1.43 mg/dL (0.70-1.30); Estimated Creatinine Clearance 36.84 ml/min; Glucose 119 mg/dL (74-106)
[2021-07-13 05:59] LABS: Anion Gap 4 (5-15); BUN/Creat Ratio 40.6 RATIO (10-20); Calcium,Total 9.3 mg/dL (8.5-10.1); Chloride 105 mmol/L (98-107); EST Glomerular Filtration Rate 51 mL/min (>60); Est Glom Filt Rate - Afr Amer 61 mL/min (>60); Potassium 5.6 mmol/L (3.5-5.1); Sodium Level 138 mmol/L (136-145)
--- NOTE | 2021-07-13 06:19 | PN.CC_ITS ---
Assessment & Plan Assessment/Plan (1) Acute hypoxemic respiratory failure due to COVID-19: PLAN: RECOMMENDATIONS: 1. Transition to nasal cannula supplemental oxygen and wean to maintain satu rations at or above 90%. 2. Continue Lovenox twice daily. 3. Encourage incentive spirometer use and mobilize patient as tolerated. 4. Maintain euvolemic state with IV diuretic therapy as tolerated by hemodynamics and renal function. 5. Proceed with disposition planning. IMPRESSIONS: 1. Acute hypoxemic respiratory failure secondary to COVID-19 pneumonia The patient was previously vaccinated in the spring 2020 and presented to the hospital with weakness and dyspnea over the course of one week. The patient has since completed treatment courses of both remdesivir and Decadron. The patient will be continued on low-dose twice daily Lovenox. He will be continued on supplemental oxygen to maintain saturations at or above 90%. 2. Acute kidney injury Likely prerenal in etiology, as the patient has responded to fluid resuscitation. Continue to monitor urine output. No current indication for renal replacement therapy. Hold diuretics for now. 3. Advanced age/hypertension/hyperlipidemia/Alzheimer's dementia/BPH Complicates care, management, recovery and prognosis. Continue home medications as indicated. This note was generated with [employer] dictation software. It may contain incorrect words, spelling, and punctuation that were not noted in checking the note before signing. Subjective Subjective The patient was seen and examined at the bedside this morning. Events from the last 24 hours have been reviewed. The patient is currently afebrile, hemodynamically stable and maintaining appropriate oxygen saturations on Airvo heated high flow with an FiO2 requirement of 70% and flow rate of 50 L/min. The patient was maintained on BiPAP all night, which he tolerated well. He did have periods of confusion overnight noted by the nursing staff. The patient is currently documented to be overall net +850 mL for the hospital admission. The patient did receive a one-time dose of IV Lasix yesterday. Potassium is elevated this morning at 5.6. Creatinine has increased to 1.43. Objective Data Objective Data The patient's most recent lab work, culture data and imaging studies have all been personally reviewed. Rapid coronavirus antigen testing was positive on July 01. Vital Signs: Vital Signs Temp Pulse Resp BP Pulse Ox 98 F 78 24 H 100/56 L 93 07/13/21 00:00 07/13/21 04:15 07/13/21 04:15 07/13/21 00:00 07/13/21 04:15 Oxygen Flow Rate (L/min) 50 Oxygen Delivery Method Airvo Weight: 62.188 kg Body Mass Index (BMI) 24.3 Intake & Output: Intake and Output for Last 24 Hours 07/11/21 07/12/21 07/13/21 23:59 23:59 23:59 Intake Total 1560 / 1560 Output Total 600 / 825 700 / 700 Balance 960 / 735 -700 / -700 Medical Nutrition Assessment Dietitian: Malnutrition Criteria Met Start: 07/02/21 09:48 Freq: Status: Active Protocol: Document 07/11/21 11:02 RMA (Rec: 07/11/21 11:03 RMA [id number]) Nutrition Malnutrition Evidence of Malnutrition Exists Yes Malnutrition (severe): Acute Illness/Injury Evidenced By Suboptimal Energy Intake ( Severe),Weight Loss (Severe) Clinical Problem Acute Disease or Injury Related Malnutrition Etiology severe, acute related to acute illness and decreased appetite Signs/Symptoms as evidenced by 6.237kg/8.8% wt loss x 5 days; estimated PO intake meeting <50% of estimated nutritional needs x 1-2 weeks Status Active Problem Recommendation Dietitian Recommendations/Changes Will continue regular diet d/t signs and symptoms of malnutrition; restrict carbohydrates as needed once intake optimal at meals. Will continue to provide fortified foods at meals. Will continue 120mL Glucerna Shake TID w/ meals. Lab / Micro Data Attestation: I reviewed the patient's lab results. Result Diagrams: 07/13/21 05:10 07/13/21 05:10 Labs: Laboratory Results - last 24 hr 07/12/21 04:19: WBC 9.8, RBC 4.17 L, Hgb 12.6 L, Hct 37.7 L, MCV 90.4, MCH 30.2, MCHC 33.4, RDW Std Deviation 56.2 H, RDW Coeff of Eduarda 17.1 H, Plt Count 392, MPV 11.9, Immature Gran % (Auto) 0.400, Neut % (Auto) 90.0 H, Lymph % (Auto) 4.6 L, Wright % (Auto) 4.9, Eos % (Auto) 0.1, Baso % (Auto) 0.0, Absolute Neuts (auto) 8.8 H, Absolute Lymphs (auto) 0.45 L, Nucleated RBC % 0 07/12/21 04:19: Sodium 138, Potassium 5.0, Chloride 107, Carbon Dioxide 26.0, Anion Gap 5, BUN 54 H, Creatinine 1.10, Estim Creat Clear Calc 49.54, Est GFR (MDRD) Af Amer 83, Est GFR (MDRD) Non-Af 69, BUN/Creatinine Ratio 49.1 H, Glucose 103, Calcium 8.7, Magnesium 2.6 07/12/21 08:10: POC Glucose 97 07/12/21 12:07: POC Glucose 111 H 07/12/21 17:02: POC Glucose 118 H 07/12/21 21:09: POC Glucose 138 H 07/13/21 05:10: WBC 10.2, RBC 3.92 L, Hgb 12.0 L, Hct 36.0 L, MCV 91.8, MCH 30.6, MCHC 33.3, RDW Std Deviation 58.5 H, RDW Coeff of Eduarda 17.6 H, Plt Count 363, MPV 11.3, Immature Gran % (Auto) 0.600, Neut % (Auto) 86.0 H, Lymph % (Auto) 7.1 L, Wright % (Auto) 5.8, Eos % (Auto) 0.4, Baso % (Auto) 0.1, Absolute Neuts (auto) 8.8 H, Absolute Lymphs (auto) 0.72 L, Nucleated RBC % 0 07/13/21 05:10: Sodium 138, Potassium 5.6 H, Chloride 105, Carbon Dioxide 29.0, Anion Gap 4 L, BUN 58 H, Creatinine 1.43 H, Estim Creat Clear Calc 36.84, Est GFR (MDRD) Af Amer 61, Est GFR (MDRD) Non-Af 51 L, BUN/Creatinine Ratio 40.6 H, Glucose 119 H, Calcium 9.3 Micro: Microbiology 07/01/21 20:10 Blood Culture (Wb) - Anticubital Left Blood Culture - Final No growth in 5 days. 07/01/21 20:20 Blood Culture (Wb) - Left Wrist Blood Culture - Final No growth in 5 days. 07/02/21 07:00 Sputum, Expectorated/Coughed Gram Stain - Final 07/02/21 07:00 Sputum, Expectorated/Coughed Respiratory Culture - Final 07/01/21 22:12 Urine, Clean Catch Urine Culture - Final Culture exhibits no growth. 07/02/21 05:35 Mucosa - Nasopharyngeal Respiratory Panel (PCR) - Final 07/02/21 07:00 Urine, Random Legionella Antigen - Final 07/02/21 07:00 Urine, Random Streptococcus pneumoniae Antigen (M - Final 07/01/21 20:58 Mucosa - Nose SARS-CoV-2 Antigen (Rapid) - Final SARS-CoV-2 (COVID 19) Physical Exam Const alert and no apparent distress General Appearance: cooperative and frail Orientation / Consciousness: confused HEENT normocephalic and head/scalp atraumatic Eyes PERRL, EOMs intact bilaterally and conjunctivae normal Neck supple General: trachea midline Resp Auscultation: diminished lung sounds; Negative for rales, rhonchi or wheezes Cardio regular rate and regular rhythm GI normal to inspection, nondistended, normoactive bowel sounds Extremity no clubbing, cyanosis or edema Skin no rashes or lesions noted Neuro CN's II-XII intact bilaterally and no focal motor deficits Psych cooperative and affect normal Charges/Coding Visit Charges Inpatient E&M: 59322 Subs Hosp L2
[2021-07-13] MEDS: Furosemide 40 MG/4 ML Vial IV (09:13)
[2021-07-13] MEDS: Tamsulosin HCl 0.4 MG Capsule PO (09:14)
[2021-07-13] MEDS: Allopurinol 300 MG Tablet PO (09:15)
[2021-07-13] MEDS: PARoxetine 10 MG Tablet PO (09:15)
[2021-07-13] MEDS: Losartan Potassium 50 MG Tablet PO (09:17)
[2021-07-13] MEDS: Finasteride 5 MG Tablet PO (09:17)
[2021-07-13] MEDS: Memantine Hydrochloride 5 MG Tablet PO ×2 (09:17→22:10)
[2021-07-13] MEDS: Enoxaparin 40 MG/0.4 ML Syringe SC ×2 (09:18→22:10)
[2021-07-13] MEDS: guaiFENesin 1,200 MG Tablet 1200 MG PO ×2 (09:18→22:10)
[2021-07-13] MEDS: 0.9% Saline Lock 10 ML Syringe IV (09:21)
--- NOTE | 2021-07-13 09:58 | PN.HOSP_ITS ---
Subjective Subjective Patient on 6 L of oxygen. Was on BiPAP and high flow oxygen last night Objective Data Objective Data Vital Signs: Vital Signs Temp Pulse Resp BP Pulse Ox 97.3 F L 73 20 H 121/57 H 95 07/13/21 06:00 07/13/21 07:00 07/13/21 06:00 07/13/21 06:00 07/13/21 07:00 Oxygen Flow Rate (L/min) 6 Oxygen Delivery Method Room Air Weight: 137 lb 1.6 oz Body Mass Index (BMI) 24.3 Intake & Output: Intake and Output for Last 24 Hours 07/11/21 07/12/21 07/13/21 23:59 23:59 23:59 Intake Total 1560 / 1560 140 / 140 Output Total 600 / 825 700 / 700 Balance 960 / 735 -700 / -700 140 / 140 Medical Nutrition Assessment Dietitian: Malnutrition Criteria Met Start: 07/02/21 09:48 Freq: Status: Active Protocol: Document 07/11/21 11:02 RMA (Rec: 07/11/21 11:03 RMA [id number]) Nutrition Malnutrition Evidence of Malnutrition Exists Yes Malnutrition (severe): Acute Illness/Injury Evidenced By Suboptimal Energy Intake ( Severe),Weight Loss (Severe) Clinical Problem Acute Disease or Injury Related Malnutrition Etiology severe, acute related to acute illness and decreased appetite Signs/Symptoms as evidenced by 6.237kg/8.8% wt loss x 5 days; estimated PO intake meeting <50% of estimated nutritional needs x 1-2 weeks Status Active Problem Recommendation Dietitian Recommendations/Changes Will continue regular diet d/t signs and symptoms of malnutrition; restrict carbohydrates as needed once intake optimal at meals. Will continue to provide fortified foods at meals. Will continue 120mL Glucerna Shake TID w/ meals. Lab / Micro Data Result Diagrams: 07/13/21 05:10 07/13/21 05:10 Labs: Laboratory Results - last 24 hr 07/12/21 12:07: POC Glucose 111 H 07/12/21 17:02: POC Glucose 118 H 07/12/21 21:09: POC Glucose 138 H 07/13/21 05:10: WBC 10.2, RBC 3.92 L, Hgb 12.0 L, Hct 36.0 L, MCV 91.8, MCH 30.6, MCHC 33.3, RDW Std Deviation 58.5 H, RDW Coeff of Eduarda 17.6 H, Plt Count 363, MPV 11.3, Immature Gran % (Auto) 0.600, Neut % (Auto) 86.0 H, Lymph % (Auto) 7.1 L, Stanley % (Auto) 5.8, Eos % (Auto) 0.4, Baso % (Auto) 0.1, Absolute Neuts (auto) 8.8 H, Absolute Lymphs (auto) 0.72 L, Nucleated RBC % 0 07/13/21 05:10: Sodium 138, Potassium 5.6 H, Chloride 105, Carbon Dioxide 29.0, Anion Gap 4 L, BUN 58 H, Creatinine 1.43 H, Estim Creat Clear Calc 36.84, Est GFR (MDRD) Af Amer 61, Est GFR (MDRD) Non-Af 51 L, BUN/Creatinine Ratio 40.6 H, Glucose 119 H, Calcium 9.3 Micro: Microbiology 07/01/21 20:10 Blood Culture (Wb) - Anticubital Left Blood Culture - Final No growth in 5 days. 07/01/21 20:20 Blood Culture (Wb) - Left Wrist Blood Culture - Final No growth in 5 days. 07/02/21 07:00 Sputum, Expectorated/Coughed Gram Stain - Final 07/02/21 07:00 Sputum, Expectorated/Coughed Respiratory Culture - Final 07/01/21 22:12 Urine, Clean Catch Urine Culture - Final Culture exhibits no growth. 07/02/21 05:35 Mucosa - Nasopharyngeal Respiratory Panel (PCR) - Final 07/02/21 07:00 Urine, Random Legionella Antigen - Final 07/02/21 07:00 Urine, Random Streptococcus pneumoniae Antigen (M - Final 07/01/21 20:58 Mucosa - Nose SARS-CoV-2 Antigen (Rapid) - Final SARS-CoV-2 (COVID 19) Physical Exam Narrative General: Awake. Very weak. Dyspnea at rest HEENT: Atraumatic, PERRLA, EOMI, Normocephalic Oral: No Gingival or Mucosal Lesions/ Ulcerations Neck: Supple, No JVD, Negative Carotid Bruits Lungs: Air entry diminished in bilateral lung bases. Dyspnea at rest. No crepitation/rhonchi Cardiovascular: Regular rate, Regular Rhythm, Normal S1, Normal S2, No murmurs Abdomen: Bowel Sounds Present, Soft, Non Tender, Non-Distended : No renal angle tenderness. No suprapubic tenderness. Extremities: No edema, Capillary Refill Less than 3 Seconds Skin: No rashes, No breakdown Musculoskeletal: Moderate atrophy of muscles of extremities no Tenderness to Palpation of Joints or Extremities Neurological: Cranial nerves II-XII grossly intact, DTR 2+/4 and Symmetrical, Neuro grossly intact Psych/Mental Status: Flat affect. Assessment & Plan Assessment/Plan (1) COVID-19: (2) Encephalopathy acute: (3) Acute hypoxemic respiratory failure due to COVID-19: (4) Chronic systolic congestive heart failur: (5) Diabetes mellitus type II: (6) Hypertension: (7) Hyperlipidemia: QUALIFIERS: Hyperlipidemia type: unspecified Qualified Code(s): E78.5 - Hyperlipidemia, unspecified (8) Alzheimer's disease: (9) Hairy cell leukemia, in remission: PLAN: A 81-year-old gentleman admitted with progressive shortness of breath diagnosed with acute hypoxic respiratory failure secondary to SARS-CoV-2 pneumonia 1. Acute hypoxic respiratory failure secondary to SARS-CoV-2 pneumonia. Patient has completed a course of remdesivir currently on Decadron which is due to be completed on 07/10/2021. Patient was on Airvo. Currently on oxygen through nasal cannula. Hemodynamically stable therefore transferred to PCU. 2. Acute kidney injury ?Resolved was attributed to prerenal azotemia 3. Essential hypertension ?Patient blood pressure controlled on losartan. 4. BPH ?Patient is on both finasteride as well as tamsulosin, continue 5. Diabetes mellitus type 2 ?Patient is on Metformin at home held please on Accu-Cheks before meals and at bedtime with sliding scale coverage 6. Dyslipidemia -Patient is on statin therapy, continued at home dose 7. Chronic congestive heart failure with reduced ejection fraction ?EF 35% currently stable 8. DVT prophylaxis ?Lovenox 40 mg SC twice daily Charges/Coding Visit Charges Inpatient E&M: 58985 Subs Hosp L2
[2021-07-13] MEDS: Clotrimazole 1 APPLIC Tube TOPICAL ×2 (11:43→22:12)
[2021-07-13] MEDS: Menthol/Lanolin/Calamine/Znox 113 GM Tube 1 APPLIC TOPICAL ×2 (11:43→22:10)
[2021-07-13] MEDS: CHLORHEXIDINE GLUC 2% CLOTH 1 EACH TOWELETTE TOPICAL (11:43)
[2021-07-13 11:50] LABS: Bedside Glucose 152 mg/dL (70-110)
--- NOTE | 2021-07-13 11:55 | NURSING ---
report called to [facility] [employer]UITERTRAC[facility]. pt to [id number] per chair, ICU staff in attendance
--- NOTE | 2021-07-13 12:28 | CASEMGMT ---
SW spoke w/ in regard to fdc choices, as pt is needing less oxygen and is able to leave the ICU. states she visited [facility] and would like a referral sent there. SW explained will send the the referral to [facility] and SW in PCU, Nida, will follow up with her. SW called [facility], faxed referral. SW will continue follow. BRANDIE Dumont
--- NOTE | 2021-07-13 13:42 | CASEMGMT ---
SW received a phone call from Beulah with [facility] and they can accept patient. Nida MONDRAGON
--- NOTE | 2021-07-13 15:36 | CASEMGMT ---
PER faxed information to [employer] to obtain insurance authorization for patient. Nida MONDRAGON
--- NOTE | 2021-07-13 16:30 | CASEMGMT ---
PER received a call from Madison with [facility]. She received 1 page of PER's fax. PER re-faxed from the office. Nida MONDRAGON
[2021-07-13 17:10] LABS: Bedside Glucose 116 mg/dL (70-110)
[2021-07-13] MEDS: Donepezil HCl 10 MG Tablet PO (22:10)
[2021-07-13] MEDS: Atorvastatin Calcium 10 MG Tablet PO (22:10)
[2021-07-13 22:26] LABS: Bedside Glucose 119 mg/dL (70-110)
[2021-07-14] VITALS (8 sets, daily range): BP systolic 117–146; BP diastolic 50–60; PULSE 63–80; RESP 14–25; TEMP 35.9–36.6; O2SAT 94–97
[2021-07-14 06:26] LABS: Bedside Glucose 101 mg/dL (70-110)
--- NOTE | 2021-07-14 06:54 | PN.CC_ITS ---
Assessment & Plan Assessment/Plan (1) Acute hypoxemic respiratory failure due to COVID-19: PLAN: RECOMMENDATIONS: 1. Wean supplemental oxygen to maintain saturations at or above 90%. 2. Continue Lovenox twice daily. 3. Encourage incentive spirometer use and mobilize patient as tolerated. 4. Maintain euvolemic state with IV diuretic therapy as tolerated by hemodynamics and renal function. 5. Will sign off from a critical care perspective. Please call with any additional questions. IMPRESSIONS: 1. Acute hypoxemic respiratory failure secondary to COVID-19 pneumonia The patient was previously vaccinated in the spring 2020 and presented to the hospital with weakness and dyspnea over the course of one week. The patient has since completed treatment courses of both remdesivir and Decadron. The patient will be continued on low-dose twice daily Lovenox. He will be continued on supplemental oxygen to maintain saturations at or above 90%. 2. Acute kidney injury Likely prerenal in etiology, as the patient has responded to fluid resuscitation. Continue to monitor urine output. No current indication for renal replacement therapy. Hold diuretics for now. 3. Advanced age/hypertension/hyperlipidemia/Alzheimer's dementia/BPH Complicates care, management, recovery and prognosis. Continue home medications as indicated. This note was generated with cdream network dictation software. It may contain incorrect words, spelling, and punctuation that were not noted in checking the note before signing. Subjective Subjective The patient was seen and examined at the bedside this morning. Events from the last 24 hours have been reviewed. The patient is currently afebrile, hemodynamically stable and maintaining appropriate oxygen saturations on BiPAP currently. The patient was able to be weaned to nasal cannula oxygen at 5 L/min throughout the day yesterday. He is currently documented to be overall net +780 mL for the hospital admission. Objective Data Objective Data The patient's most recent lab work, culture data and imaging studies have all been personally reviewed. Rapid coronavirus antigen testing was positive on July 01. Vital Signs: Vital Signs Temp Pulse Resp BP Pulse Ox 97.9 F 70 21 H 117/60 97 07/14/21 04:05 07/14/21 04:05 07/14/21 04:05 07/14/21 04:05 07/14/21 04:05 Oxygen Flow Rate (L/min) 5 Oxygen Delivery Method Bi-pap Weight: 62.188 kg Body Mass Index (BMI) 24.3 Intake & Output: Intake and Output for Last 24 Hours 07/12/21 07/13/21 07/14/21 23:59 23:59 23:59 Intake Total 440 / 440 240 / 240 Output Total 700 / 700 350 / 750 400 / 400 Balance -700 / -700 90 / -310 -160 / -160 Medical Nutrition Assessment Dietitian: Malnutrition Criteria Met Start: 07/02/21 09:48 Freq: Status: Active Protocol: Document 07/11/21 11:02 RMA (Rec: 07/11/21 11:03 RMA [id number]) Nutrition Malnutrition Evidence of Malnutrition Exists Yes Malnutrition (severe): Acute Illness/Injury Evidenced By Suboptimal Energy Intake ( Severe),Weight Loss (Severe) Clinical Problem Acute Disease or Injury Related Malnutrition Etiology severe, acute related to acute illness and decreased appetite Signs/Symptoms as evidenced by 6.237kg/8.8% wt loss x 5 days; estimated PO intake meeting <50% of estimated nutritional needs x 1-2 weeks Status Active Problem Recommendation Dietitian Recommendations/Changes Will continue regular diet d/t signs and symptoms of malnutrition; restrict carbohydrates as needed once intake optimal at meals. Will continue to provide fortified foods at meals. Will continue 120mL Glucerna Shake TID w/ meals. Lab / Micro Data Attestation: I reviewed the patient's lab results. Result Diagrams: 07/14/21 06:55 07/14/21 06:55 Labs: Laboratory Results - last 24 hr 07/13/21 11:22: POC Glucose 152 H 07/13/21 17:05: POC Glucose 116 H 07/13/21 22:09: POC Glucose 119 H 07/14/21 06:00: POC Glucose 101 Micro: Microbiology 07/01/21 20:10 Blood Culture (Wb) - Anticubital Left Blood Culture - Final No growth in 5 days. 07/01/21 20:20 Blood Culture (Wb) - Left Wrist Blood Culture - Final No growth in 5 days. 07/02/21 07:00 Sputum, Expectorated/Coughed Gram Stain - Final 07/02/21 07:00 Sputum, Expectorated/Coughed Respiratory Culture - Final 07/01/21 22:12 Urine, Clean Catch Urine Culture - Final Culture exhibits no growth. 07/02/21 05:35 Mucosa - Nasopharyngeal Respiratory Panel (PCR) - Final 07/02/21 07:00 Urine, Random Legionella Antigen - Final 07/02/21 07:00 Urine, Random Streptococcus pneumoniae Antigen (M - Final 07/01/21 20:58 Mucosa - Nose SARS-CoV-2 Antigen (Rapid) - Final SARS-CoV-2 (COVID 19) Physical Exam Const alert and no apparent distress General Appearance: cooperative and frail Orientation / Consciousness: confused HEENT normocephalic and head/scalp atraumatic Eyes PERRL, EOMs intact bilaterally and conjunctivae normal Neck supple General: trachea midline Resp Auscultation: diminished lung sounds; Negative for rales, rhonchi or wheezes Cardio regular rate and regular rhythm GI normal to inspection, nondistended, normoactive bowel sounds Extremity no clubbing, cyanosis or edema Skin no rashes or lesions noted Neuro CN's II-XII intact bilaterally and no focal motor deficits Psych cooperative and affect normal Charges/Coding Visit Charges Inpatient E&M: 18490 Subs Hosp L2
--- NOTE | 2021-07-14 07:33 | CASEMGMT ---
SW checked fax machine and it looks like fax did not go through again to [employer]. SW will again re-fax. Nida Vera GYROSCOPE REPAIRER SPACE STUDIES FACULTY MEMBER
[2021-07-14 07:41] LABS: Absolute Lymphocyte Count 0.54 X10^3/uL (0.83-4.51); Absolute Neutrophil Count 8.1 X10^3/uL (2.0-7.7); Basophil# 0.01 X10^3/uL; Basophil% 0.1 % (0-1); Eosinophil# 0.05 X10^3/uL; Eosinophils% 0.5 % (0-5); Hematocrit 31.7 % (40-54); Hemoglobin 10.6 g/dL (13.0-16.5); Lymphocyte # 0.54 X10^3/ul (0.83-4.51); Lymphocyte % 5.8 % (19-41); Mean Corp Hgb Conc 33.4 g/dL (32-36); Mean Corpuscular Hgb 30.5 pg (27.0-32.0); Mean Corpuscular Volume 91.1 fL (80-94); Mean Platelet Vol. 11.1 fl (6.2-12.0); Monocyte# 0.58 X10^3/uL; Monocyte% 6.2 % (0-10); NRBC Flagged by Analyzer 0.2 % (0-5); Neutrophil # 8.11 X10^3/uL (2.7-7.7); Neutrophil % 87.1 % (47-70); POSITIVE DIFFERENTIAL YES; Platelet Count 345 K/mm3 (150-450); RBC Distribution Width CV 17.4 % (11.6-14.6); RBC Distribution Width SD 57.9 fl (35.1-43.9); Red Blood Count 3.48 M/mm3 (4.6-6.2); White Blood Count 9.3 K/mm3 (4.4-11.0)
[2021-07-14 07:45] LABS: Differential Indicated SCAN CRITERIA MET
[2021-07-14 08:04] LABS: Anion Gap 4 (5-15); BUN 55 mg/dL (7-18); BUN/Creat Ratio 45.5 RATIO (10-20); Calcium,Total 8.7 mg/dL (8.5-10.1); Chloride 104 mmol/L (98-107); Creatinine, Serum 1.21 mg/dL (0.70-1.30); EST Glomerular Filtration Rate 61 mL/min (>60); Est Glom Filt Rate - Afr Amer 74 mL/min (>60); Estimated Creatinine Clearance 43.54 ml/min; Glucose 94 mg/dL (74-106); Potassium 4.5 mmol/L (3.5-5.1); Sodium Level 136 mmol/L (136-145)
[2021-07-14] MEDS: Finasteride 5 MG Tablet PO (10:03)
[2021-07-14] MEDS: Menthol/Lanolin/Calamine/Znox 113 GM Tube 1 APPLIC TOPICAL (10:03)
[2021-07-14] MEDS: Memantine Hydrochloride 5 MG Tablet PO (10:04)
[2021-07-14] MEDS: PARoxetine 10 MG Tablet PO (10:04)
[2021-07-14] MEDS: Tamsulosin HCl 0.4 MG Capsule PO (10:04)
[2021-07-14] MEDS: Allopurinol 300 MG Tablet PO (10:04)
[2021-07-14] MEDS: Furosemide 40 MG/4 ML Vial IV (10:04)
[2021-07-14] MEDS: 0.9% Saline Lock 10 ML Syringe IV (10:04)
[2021-07-14] MEDS: Enoxaparin 40 MG/0.4 ML Syringe SC (10:04)
[2021-07-14] MEDS: Losartan Potassium 50 MG Tablet PO (10:04)
[2021-07-14] MEDS: Clotrimazole 1 APPLIC Tube TOPICAL (10:05)
[2021-07-14] MEDS: guaiFENesin 1,200 MG Tablet 1200 MG PO (10:05)
--- NOTE | 2021-07-14 10:55 | CASEMGMT ---
PER received a call from Hermelinda with [facility] and patient is approved for [facility]. The pre-cert is good until 07-18. The temporary auth number is [id number]. PER faxed temp auth number and bipap settings to [facility]. PER called Beulah at [facility] and let her know this information and that it was faxed. PER told her likely weekend d/c. Green sheet on chart if ready over the weekend. Plan: d/c to [facility] under skilled level of care on a convalescent stay. Nida Vera FIELD EDUCATION DIRECTOR ALANNA
--- NOTE | 2021-07-14 11:24 | PCM.TXEXTCAR ---
Diet 07/05/21 09:58 Diet: Regular - General Dietary Modifications:: Fortified Foods Type of Dietary Supplement:: Glucerna Shake Is pt able to select menu?: No Diet Comments: 120mL w/ meals Routine Orders/Code Status Suppository Type: Dulcolax 10mg Suppository Frequency: Daily PRN Routine Lab Work: CBC (Monthly.) and BMP Code Status: Full Code Wound(s) coccyx: Wound Type: shear Therapies Weight Bearing: Weight bearing as tolerated Extremity Affected:: Bilateral Lower Physical Therapy: Eval and Treat Occupational Therapy: Eval and Treat Speech Therapy: Eval and Treat Problem/Diagnosis (1) Acute hypoxemic respiratory failure due to COVID-19: Status: Acute Allergies/Procedures Done in Hospital Allergies gabapentin Allergy (Verified 05/28/21 01:20) tremors tremors metoprolol [From Toprol XL] Allergy (Verified 05/26/21 03:15) PT UNSURE OF REACTION ramipril [From Altace] Allergy (Verified 05/26/21 03:15) PT UNSURE OF REACTION Type of Care/Length of Stay Estimated LOS: Convalescent Care Less Than 30 days Type of Care Needed: Skilled Rehab Potential: Good Prognosis: Good Additional Orders/Day of Discharge Day of Discharge: 07/14/21 Dietary and Speech Recommendations Dietitian Recommendations/Changes: Will continue regular diet d/t signs and symptoms of malnutrition. Will continue to provide fortified foods at meals. Will continue 120mL Glucerna Shake TID w/ meals. 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 Discharge Orders/Prescriptions Prescriptions: New clotrimazole 1 % Cream 1 applic topical BID Qty: 0 RF: 0 enoxaparin 40 mg/0.4 mL Syringe 40 mg subcut BID Qty: 0 RF: 0 insulin lispro [Humalog KwikPen Insulin] 100 unit/mL Insulin Pen See Protocol unit subcut ACHS Qty: 0 RF: 0 Mucus Relief ER 1,200 mg Tablet Extended Release 12hr 1,200 mg PO BID Qty: 0 RF: 0 albuterol sulfate 2.5 mg /3 mL (0.083 %) Solution For Nebulization 2.5 mg inhalation Q2H PRN PRN (Reason: SOB/Wheezing) Qty: 0 RF: 0 sennosides-docusate sodium [Stool Softener-Stimulant Laxat] 8.6-50 mg Tablet 2 tab PO BID PRN PRN (Reason: Constipation) Qty: 0 RF: 0 Continued metformin 500 MG tablet 500 mg PO BIDCM RF: 0 atorvastatin 10 MG tablet 10 mg PO QHS RF: 0 doxazosin 1 MG tablet 1 mg PO QHS RF: 0 allopurinol [Zyloprim] 300 MG tablet 300 mg PO DAILY RF: 0 paroxetine HCl 10 MG tablet 10 mg PO DAILY RF: 0 donepezil 5 MG tablet 10 mg PO QHS RF: 0 tamsulosin 0.4 mg capsule 0.4 mg PO DAILY RF: 0 memantine 5 mg tablet 5 mg PO BID RF: 0 acetaminophen 500 mg Tablet 1,000 mg PO BID RF: 0 finasteride 5 mg Tablet 5 mg PO DAILY RF: 0 Changed losartan 25 mg tablet 50 mg PO DAILY Qty: 0 RF: 0 Discontinued meloxicam 7.5 MG tablet 7.5 mg PO DAILY RF: 0 Referrals / Follow Up: Jose Young DO [STAFF PHYSICIAN] - Within 2 Weeks Wilfred Vázquez III, MD [Primary Care Provider] - Disposition Disposition (needs filled in before D/C Order can be placed[facility]
--- NOTE | 2021-07-14 11:24 | PCM.DC.SUM ---
Providers Date of Admission: 07/02/21 Primary Care Physician: Dr. Wilfred Vázquez III, MD Consultations 07/02/21 04:09 Consult: Infectious Disease Routine Consulting Provider: John Roche Reason for Consult: Covid-19 EMERGENT Consult: No Notified: Yes Date Notified: 07/03/21 Time Notified: 07:51 Method of Notification: Answering Service Consult: Felt Hat Mellowing Machine Operator / Pulmonary Medicine Routine Consulting Provider: Pulmonary Medicine [facility] [place] Reason for Consult: Covid-19 EMERGENT Consult: No Notified: Yes Date Notified: 07/02/21 Time Notified: 00:27 Method of Notification: Text Method of Consult:: In-Person Reason For Visit: ACUTE HYPOXIC RESPIRATORY FAILURE SECONDARY Diagnosis Discharge Diagnosis (1) Acute hypoxemic respiratory failure due to COVID-19: Status: Acute Code(s): U07.1 - COVID-19; J96.01 - Acute respiratory failure with hypoxia Medications at Discharge Home Medications atorvastatin 10 mg PO QHS 11/20/15 doxazosin 1 mg PO QHS 11/20/15 metformin 500 mg PO BIDCM 11/20/15 donepezil 10 mg PO QHS 11/28/17 paroxetine HCl 10 mg PO DAILY 11/28/17 allopurinol [Zyloprim] 300 mg PO DAILY 04/30/18 memantine 5 mg PO BID 05/26/21 tamsulosin 0.4 mg PO DAILY 05/26/21 acetaminophen 1,000 mg PO BID 05/28/21 finasteride 5 mg PO DAILY 07/01/21 albuterol sulfate 2.5 mg INHALATION Q2H PRN PRN #0 ml 07/14/21 clotrimazole 1 applic TOPICAL BID #0 g 07/14/21 enoxaparin 40 mg SUBCUT BID #0 ml 07/14/21 guaifenesin [Mucus Relief ER] 1,200 mg PO BID #0 tab 07/14/21 insulin lispro [Humalog KwikPen Insulin] See Protocol SUBCUT ACHS #0 ml 07/14/21 losartan 50 mg PO DAILY #0 tab 07/14/21 sennosides-docusate sodium [Stool Softener-Stimulant Laxat] 2 tab PO BID PRN PRN #0 tab 07/14/21 Hospital Course Summary of Care Provided Hospital Course: A 81-year-old gentleman admitted with progressive shortness of breath diagnosed with acute hypoxic respiratory failure secondary to SARS-CoV-2 pneumonia 1. Acute hypoxic respiratory failure secondary to SARS-CoV-2 pneumonia. Patient has completed a course of remdesivir and dexamethasone. Patient was on Airvo. Currently on oxygen through nasal cannula and requires intermittent BiPAP. The patient was transferred to PCU. Evaluated by PT and OT and transferred to SNF where they have BiPAP and oxygen, AIRVO options 2. Acute kidney injury ?Resolved was attributed to prerenal azotemia 3. Essential hypertension ?Patient blood pressure controlled on losartan. 4. BPH ?Patient is on both finasteride as well as tamsulosin, continue 5. Diabetes mellitus type 2 ?Patient is on Metformin at home held please on Accu-Cheks before meals and at bedtime with sliding scale coverage 6. Dyslipidemia -Patient is on statin therapy, continued at home dose 7. Chronic congestive heart failure with reduced ejection fraction ?EF 35% currently stable 8. DVT prophylaxis ?Lovenox 40 mg SC twice daily Discharge medication reconciliation done. Discharge follow-up instructions completed. Discharge process discussed with the patient and all questions were answered to patient's satisfaction. Total time spent, exact 35 minutes on discharge meds reconciliation, examination, coordination of care with nurses and ancillary staff, review of imaging and blood test and discussion with the patient on follow-up instructions Physical Exam Narrative Seen and examined. Fatigue. Does not have much strength to even stand up. 5 L of oxygen. General: Awake. Very weak. Dyspnea at rest HEENT: Atraumatic, PERRLA, EOMI, Normocephalic Oral: No Gingival or Mucosal Lesions/ Ulcerations Neck: Supple, No JVD, Negative Carotid Bruits Lungs: Air entry diminished in bilateral lung bases. Dyspnea at rest. No crepitation/rhonchi Cardiovascular: Regular rate, Regular Rhythm, Normal S1, Normal S2, No murmurs Abdomen: Bowel Sounds Present, Soft, Non Tender, Non-Distended : No renal angle tenderness. No suprapubic tenderness. Extremities: No edema, Capillary Refill Less than 3 Seconds Skin: No rashes, No breakdown Musculoskeletal: Moderate atrophy of muscles of extremities no Tenderness to Palpation of Joints or Extremities Neurological: Cranial nerves II-XII grossly intact, DTR 2+/4 and Symmetrical, Neuro grossly intact Psych/Mental Status: Flat affect. Medical Records Data Medical Nutrition Assessment Dietitian: Malnutrition Criteria Met Start: 07/02/21 09:48 Freq: Status: Active Protocol: Document 07/11/21 11:02 RMA (Rec: 07/11/21 11:03 RMA [id number]) Nutrition Malnutrition Evidence of Malnutrition Exists Yes Malnutrition (severe): Acute Illness/Injury Evidenced By Suboptimal Energy Intake ( Severe),Weight Loss (Severe) Clinical Problem Acute Disease or Injury Related Malnutrition Etiology severe, acute related to acute illness and decreased appetite Signs/Symptoms as evidenced by 6.237kg/8.8% wt loss x 5 days; estimated PO intake meeting <50% of estimated nutritional needs x 1-2 weeks Status Active Problem Recommendation Dietitian Recommendations/Changes Will continue regular diet d/t signs and symptoms of malnutrition; restrict carbohydrates as needed once intake optimal at meals. Will continue to provide fortified foods at meals. Will continue 120mL Glucerna Shake TID w/ meals. Weight / BMI Weight Weight: 137 lb 1.6 oz Body Mass Index (BMI) 24.3 ABG / Lab / Microbiology Data Result Diagrams: 07/14/21 06:55 07/14/21 06:55 Laboratory: Laboratory Results - last 24 hr 07/13/21 11:22: POC Glucose 152 H 07/13/21 17:05: POC Glucose 116 H 07/13/21 22:09: POC Glucose 119 H 07/14/21 06:00: POC Glucose 101 07/14/21 06:55: WBC 9.3, RBC 3.48 L, Hgb 10.6 L, Hct 31.7 L, MCV 91.1, MCH 30.5, MCHC 33.4, RDW Std Deviation 57.9 H, RDW Coeff of Eduarda 17.4 H, Plt Count 345, MPV 11.1, Immature Gran % (Auto) 0.300, Neut % (Auto) 87.1 H, Lymph % (Auto) 5.8 L, [place] % (Auto) 6.2, Eos % (Auto) 0.5, Baso % (Auto) 0.1, Absolute Neuts (auto) 8.1 H, Absolute Lymphs (auto) 0.54 L, Nucleated RBC % 0.2 07/14/21 06:55: Sodium 136, Potassium 4.5, Chloride 104, Carbon Dioxide 28.0, Anion Gap 4 L, BUN 55 H, Creatinine 1.21, Estim Creat Clear Calc 43.54, Est GFR (MDRD) Af Amer 74, Est GFR (MDRD) Non-Af 61, BUN/Creatinine Ratio 45.5 H, Glucose 94, Calcium 8.7 Microbiology: Microbiology 07/01/21 20:10 Blood Culture (Wb) - Anticubital Left Blood Culture - Final No growth in 5 days. 07/01/21 20:20 Blood Culture (Wb) - Left Wrist Blood Culture - Final No growth in 5 days. 07/02/21 07:00 Sputum, Expectorated/Coughed Gram Stain - Final 07/02/21 07:00 Sputum, Expectorated/Coughed Respiratory Culture - Final 07/01/21 22:12 Urine, Clean Catch Urine Culture - Final Culture exhibits no growth. 07/02/21 05:35 Mucosa - Nasopharyngeal Respiratory Panel (PCR) - Final 07/02/21 07:00 Urine, Random Legionella Antigen - Final 07/02/21 07:00 Urine, Random Streptococcus pneumoniae Antigen (M - Final 07/01/21 20:58 Mucosa - Nose SARS-CoV-2 Antigen (Rapid) - Final SARS-CoV-2 (COVID 19) Meaningful Use Info Meaningful Use Diagnoses (Choose all that apply): None applicable Discharge Plan Admission Admit Date/Time: 07/02/21 00:30 Primary Reason for Your Visit: Acute hypoxic respiratory failure due to bilateral COVID-19 pneumonia Attending Provider: Gavin Riddle Primary Care Provider: Wilfred Vázquez III Consulting Providers: John Roche ; Segun Edward ; Jose Young ; Princess Griffith 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 Discharge Orders/Prescriptions Prescriptions: New clotrimazole 1 % Cream 1 applic topical BID Qty: 0 RF: 0 enoxaparin 40 mg/0.4 mL Syringe 40 mg subcut BID Qty: 0 RF: 0 insulin lispro [Humalog KwikPen Insulin] 100 unit/mL Insulin Pen See Protocol unit subcut ACHS Qty: 0 RF: 0 Mucus Relief ER 1,200 mg Tablet Extended Release 12hr 1,200 mg PO BID Qty: 0 RF: 0 albuterol sulfate 2.5 mg /3 mL (0.083 %) Solution For Nebulization 2.5 mg inhalation Q2H PRN PRN (Reason: SOB/Wheezing) Qty: 0 RF: 0 sennosides-docusate sodium [Stool Softener-Stimulant Laxat] 8.6-50 mg Tablet 2 tab PO BID PRN PRN (Reason: Constipation) Qty: 0 RF: 0 Continued metformin 500 MG tablet 500 mg PO BIDCM RF: 0 atorvastatin 10 MG tablet 10 mg PO QHS RF: 0 doxazosin 1 MG tablet 1 mg PO QHS RF: 0 allopurinol [Zyloprim] 300 MG tablet 300 mg PO DAILY RF: 0 paroxetine HCl 10 MG tablet 10 mg PO DAILY RF: 0 donepezil 5 MG tablet 10 mg PO QHS RF: 0 tamsulosin 0.4 mg capsule 0.4 mg PO DAILY RF: 0 memantine 5 mg tablet 5 mg PO BID RF: 0 acetaminophen 500 mg Tablet 1,000 mg PO BID RF: 0 finasteride 5 mg Tablet 5 mg PO DAILY RF: 0 Changed losartan 25 mg tablet 50 mg PO DAILY Qty: 0 RF: 0 Discontinued meloxicam 7.5 MG tablet 7.5 mg PO DAILY RF: 0 Referrals / Follow Up: Jose Young DO [STAFF PHYSICIAN] - Within 2 Weeks Wilfred Vázquez III, MD [Primary Care Provider] - Disposition Disposition (needs filled in before D/C Order can be placed): [facility] Charges/Coding Visit Charges Inpatient E&M: 87911 Disch Hosp
--- NOTE | 2021-07-14 12:57 | CASEMGMT ---
Precert was attained and pt is ready for discharge to [facility] today. PER faxed all discharge paperwork including hospital exemption completed in the [employer] system. PER set up a 2pm ambulance w/Phys[facility]. SW called to let her know time of pickup. SW let floor RN know time of pickup as well. SW left Beulah in admissions at [facility] a message letting her know the time. PER then called and spoke to RN on floor at [facility], she put mental health unit lead psychologist Pascale on the phone who states that they cannot take pt today, put SW through to Beulah. PER then spoke w/Beulah in admissions, she reassured SW that pt CAN come today, they are getting the bipap ordered, and that pt can be discharged today from [facility] at 2pm. BRANDIE Dumont
--- NOTE | 2021-07-14 13:54 | NURSING ---
REPORT CALLED TO ADMISSIONS.
[2021-07-14 14:31] LABS: Bedside Glucose 102 mg/dL (70-110)
--- NOTE | 2021-07-14 15:24 | CASEMGMT ---
SW received a call from the company that will be supplying the bipap for patient. She could not read the fax that had the settings so SW read them to her. Nida MONDRAGON
== END 2021-07-14 14:00 | disposition skilled nursing facility (03) | DRG 871 ==
LOC: ED 23:06 → ICU 07-02 00:35 → PCU 07-13 12:21
PROVIDERS: Internal Medicine; Internal Medicine Critical Care Medicine; Admitting Provider Internal Medicine; Emergency Provider Emergency Medicine; PCP Family Medicine; Visit Provider Internal Medicine
DX: A41.89 Other specified sepsis (principal); U07.1 COVID-19; J96.01 Acute respiratory failure with hypoxia; J12.82 Pneumonia due to coronavirus disease 2019; E43 Unspecified severe protein-calorie malnutrition; N17.9 Acute kidney failure, unspecified; I50.22 Chronic systolic (congestive) heart failure; I42.9 Cardiomyopathy, unspecified; G93.40 Encephalopathy, unspecified; C91.41 Hairy cell leukemia, in remission; E87.1 Hypo-osmolality and hyponatremia; I11.0 Hypertensive heart disease with heart failure; N40.0 Benign prostatic hyperplasia without lower urinary tract symptoms; E78.5 Hyperlipidemia, unspecified; E11.9 Type 2 diabetes mellitus without complications; G30.9 Alzheimer's disease, unspecified; F02.80 Dementia in other diseases classified elsewhere, unspecified severity, without behavioral disturbance, psychotic disturbance, mood disturbance, and anxiety; M10.9 Gout, unspecified; M50.30 Other cervical disc degeneration, unspecified cervical region; Z79.899 Other long term (current) drug therapy; Z79.84 Long term (current) use of oral hypoglycemic drugs; Z87.891 Personal history of nicotine dependence; Z68.24 Body mass index [BMI] 24.0-24.9, adult; E87.5 Hyperkalemia; F32.9 Major depressive disorder, single episode, unspecified
CPT/HCPCS: 36415; 36600; 71045; 71275; 80048; 80053; 80076; 81001; 82550; 82803; 82962; 83605; 83615; 83735; 83880; 84100; 84145; 84484; 85025; 85379; 85384; 85610; 85730; 86140; 87040; 87070; 87086; 87205; 87426; 87449; 87633; 93005; 94003; 94660; 97110; 97162; 97166; 97530; 97535; 97802; 99285; J7030; J7050; Q9967; A4216; J1940

== ENCOUNTER 2023-03-05 19:14 | Observation (INO) | payer MEDICARE, SELFPAY ==
[2023-03-05 19:16] VITALS: BP 153/74; PULSE 73; RESP 18; TEMP 37.2; O2SAT 97
[2023-03-05 20:38] LABS: Absolute Lymphocyte Count 1.56 X10^3/uL (0.83-4.51); Absolute Neutrophil Count 8.9 X10^3/uL (2.0-7.7); Basophil# 0.03 X10^3/uL; Basophil% 0.3 % (0-1); Eosinophil# 0.17 X10^3/uL; Eosinophils% 1.4 % (0-5); Hematocrit 36.4 % (40-54); Hemoglobin 11.7 g/dL (13.0-16.5); Lymphocyte # 1.56 X10^3/ul (0.83-4.51); Lymphocyte % 13.3 % (19-41); Mean Corp Hgb Conc 32.1 g/dL (32-36); Mean Corpuscular Hgb 31.8 pg (27.0-32.0); Mean Corpuscular Volume 98.9 fL (80-94); Mean Platelet Vol. 10.5 fl (6.2-12.0); Monocyte% 9.3 % (0-10); NRBC Flagged by Analyzer 0 % (0-5); Neutrophil # 8.88 X10^3/uL (2.7-7.7); Neutrophil % 75.4 % (47-70); Platelet Count 225 K/mm3 (150-450); RBC Distribution Width CV 15.4 % (11.6-14.6); RBC Distribution Width SD 55.6 fl (35.1-43.9); Red Blood Count 3.68 M/mm3 (4.6-6.2); White Blood Count 11.8 K/mm3 (4.4-11.0)
[2023-03-05 20:51] LABS: Anion Gap 2 (5-15); BUN 34 mg/dL (7-18); BUN/Creat Ratio 20.7 RATIO (10-20); Calcium,Total 9.2 mg/dL (8.5-10.1); Chloride 111 mmol/L (98-107); Creatinine, Serum 1.64 mg/dL (0.70-1.30); EST Glomerular Filtration Rate 43 mL/min (>60); Est Glom Filt Rate - Afr Amer 52 mL/min (>60); Glucose 111 mg/dL (74-106); Potassium 4.5 mmol/L (3.5-5.1); Sodium Level 140 mmol/L (136-145)
[2023-03-05 21:09] LABS: Mucous, Urine 0 SEEN /hpf (<or=2+); Red Blood Cells-Urine 0 SEEN /hpf (0-5); Squamous Epithelial Cells - UA 0 SEEN /hpf (0-5)
[2023-03-05 21:22] LABS: Color, Urine Yellow (Yellow); Glucose, Dipstick Normal (Normal); Ketone-Dipstick Negative (Negative); Leukocyte Esterase-Dipstick 25 /ul (Negative); Nitrite-Dipstick Negative (Negative); Occult Blood-Urine Negative /ul (Negative); Protein-Dipstick 100 mg/dl (Negative); Urine Bilirubin Dipstick Negative (Negative); Urine Clarity Clear (Clear); Urine Urobilinogen 1 mg/dl (Normal)
[2023-03-05 21:32] VITALS: BMI 20.7
[2023-03-05 21:32] LABS: Bacteria RARE /hpf (None Seen); White Blood Cells 0-5 SEEN /hpf (0-5)
--- NOTE | 2023-03-05 22:14 | US_ITS ---
INDICATION: BILATERAL KNEE PAIN AND WEAKNESS EXAMINATION: Ultrasound US Venous Duplex LE Bilat Complete TECHNIQUE: Rudolph scale, pulse wave, and color flow Doppler imaging was performed of the lower extremity venous system. The bilateral greater saphenous, common femoral, femoral, posterior tibial, peroneal and popliteal veins were interrogated. COMPARISON: None. FINDINGS: There is normal compression, augmentation, and color flow signal throughout the visualized deep lower extremity veins. US/Venous Duplex Imag/Wily Extrem IMPRESSION: No sonographic evidence of deep venous thrombosis. Electronically Signed: Roberth Diez MD at 23:40 EDT ,
[2023-03-05] MEDS: 0.9% Normal Saline 1,000 ML 999 ML IV (22:41)
[2023-03-05 22:44] VITALS: BP 153/74; PULSE 69; RESP 15; O2SAT 91
--- NOTE | 2023-03-05 22:48 | RAD_ITS ---
INDICATION: cough EXAMINATION/TECHNIQUE: X-RAY - portable upright AP chest x-ray COMPARISON: 07/01/2021 FINDINGS: LINES/DEVICES: None. LUNGS: Persistent elevation left hemidiaphragm. Low lung volumes. No consolidation, vascular congestion or pleural effusion. MEDIASTINUM AND CARDIOVASCULAR STRUCTURES: Cardiac silhouette stable within normal limits. BONES AND SOFT TISSUES: No acute changes. RAD/Chest 1 View (Portable) IMPRESSION: Hypoinflated study without radiographic evidence of acute cardiopulmonary disease. Electronically Signed: Roberth Diez MD at 23:14 EDT ,
[2023-03-06] VITALS (7 sets, daily range): BP systolic 137–158; BP diastolic 66–89; PULSE 64–75; RESP 15–18; TEMP 36.3–37.2; O2SAT 93–96; BMI 22.1; BMI 22.0
--- NOTE | 2023-03-06 00:24 | PCM.HP.STD ---
HPI - General General Date of Admission: 03/06/23 Date of Service: 03/06/23 Chief Complaint: Weakness, debility, BL knee pain. HPI Narrative The patient is an 82 y/o M w/ PMHx: Alzheimer's disease, Hairy Cell Leukemia following w/ Dr. Andrade Dx 1982, Chronic Systolic CHF (EF 35%, following w/ Dr. Wells, s/p cath 2004), HTH, HLD Gout, Diabetes mellitus type II, BPH, Chronic anemia/iron deficiency anemia anxiety and Depression who presents to the [facility] ED on 03/06/23 with history of increasing fatigue, malaise with notable bilateral lower extremity weakness as well as bilateral knee pain reporting he did have recent unclear parathroid surgery but from description possible resection given inability to safely take care of himself and risk of fall prompted ED evaluation. He notes bilateral knee discomfort, right worse than left seem to come on more notably immediately after surgery approximately week prior, worse with activity attempts, also notes discomfort with palpation primarily the right knee. He notes the discomfort is more of a dull aching throb but more sharp with activity attempt and also with palpation primarily to the right knee is noted. Work-up in the ED included T98.9, heart rate 73, BP 153/74, respiratory rate 18, initially 97% on room air however most recent noted 91% on room air, CBC with WC 11.8, hemoglobin 11.7, MCV 98.9, platelet 225 with left shift, BMP with chloride 111, BUN/creatinine 24/1.64, glucose 111, calcium 9.2, urinalysis unremarkable, bilateral lower extremity duplex ultrasound negative, chest x-ray with no acute cardiopulmonary findings although low lung volumes noted and persistent elevation left hemidiaphragm. In the ED patient ministered 1 L normal saline bolus. [facility] Medical History Alzheimer's disease Anxiety Benign prostate hyperplasia COVID-19 Degenerative disc disease, cervical DM2 (diabetes mellitus, type 2) Former smoker Gout Hairy cell leukemia Heart failure with reduced ejection fraction HTN (hypertension) Hyperlipidemia Left bundle branch block Mild cognitive impairment with memory loss Home Medications atorvastatin 10 mg tablet 10 mg PO QHS CHOLESTEROL 11/20/15 [History Last Taken 05/26/21 22:00] doxazosin 1 mg tablet 1 mg PO QHS prostate 11/20/15 [History Last Taken 05/26/21 22:00] metformin 500 mg tablet 500 mg PO BIDCM DM 11/20/15 [History Last Taken 05/27/21 08:00] donepezil 5 mg tablet 10 mg PO QHS memory 11/28/17 [History Last Taken 05/26/21 22:00] paroxetine HCl 10 mg tablet 10 mg PO DAILY anxiety 11/28/17 [History Last Taken 05/27/21 08:00] allopurinol 300 mg tablet (Zyloprim) 300 mg PO DAILY GOUT 04/30/18 [History Last Taken 05/27/21 08:00] memantine 5 mg tablet 10 mg PO BID memory 05/26/21 [History Last Taken 05/27/21 08:00] acetaminophen 500 mg tablet 500 mg PO Q6H PRN Pain 05/28/21 [History Last Taken 05/27/21 08:00] finasteride 5 mg tablet 5 mg PO DAILY 07/01/21 [History Last Taken Unknown] albuterol sulfate 2.5 mg/3 mL (0.083 %) solution for nebulization 2.5 mg (3 mL) inhalation Q2H PRN PRN SOB/Wheezing #0 mL 07/14/21 [Rx Last Taken Unknown] losartan 25 mg tablet 50 mg PO DAILY heart #0 tabs 07/14/21 [Rx Last Taken 05/27/21 08:00] polysaccharide iron complex 150 mg iron capsule (Ferrex) 150 mg PO DAILY #90 caps 05/17/22 [Rx Last Taken Unknown] calcium carbonate-vitamin D3 1 tab PO/SL TID supplement 03/05/23 [History Last Taken Unknown] ibuprofen 200 mg capsule 200 mg PO Q4H PRN Pain 03/05/23 [History Last Taken Unknown] Allergy/AdvReac Type Severity Reaction Status Date / Time gabapentin Allergy tremors Verified 03/05/23 19:16 metoprolol [From Toprol XL] Allergy PT UNSURE Verified 03/05/23 19:16 OF REACTION ramipril [From Altace] Allergy PT UNSURE Verified 03/05/23 19:16 OF REACTION Family History Mother Cancer Father Heart disease Hypertension Surgical History H/O total hip arthroplasty History of appendectomy Hx of splenectomy Social History household members: spouse Smoking Status: Former smoker alcohol intake: never substance use type: does not use ROS ROS Narrative Admission Review of Systems: CONSTITUTIONAL: No weight loss, fever, chills, + weakness or fatigue. HEENT: Eyes: No visual loss, blurred vision, double vision or yellow sclerae. Ears, Nose, Throat: No hearing loss, sneezing, congestion, runny nose or sore throat. SKIN: No rash or itching, lesions, wounds. CARDIOVASCULAR: No chest pain, chest pressure or chest discomfort, palpitations, edema, orthopnea, syncopal events. RESPIRATORY: No shortness of breath, cough or sputum, wheezing, hemoptysis. GASTROINTESTINAL: No anorexia, nausea, vomiting or diarrhea, abdominal pain, melena, BRBPR. GENITOURINARY: + Chronic urinary frequency with BPH. No dysuria, urgency or retention. NEUROLOGICAL: + Gait debility, bilateral lower extremity weakness, knee pain associated, underlying Alzheimer's dementia with memory impairment, no headache, dizziness, syncope, paralysis, ataxia, numbness or tingling in the extremities, focal weakness, change in bowel or bladder control, seizure. MUSCULOSKELETAL: + muscle, back pain, joint pain or stiffness. HEMATOLOGIC: + anemia, bleeding or bruising. LYMPHATICS: No enlarged nodes. No history of splenectomy. PSYCHIATRIC: + history of depression or anxiety. ENDOCRINOLOGIC: No reports of sweating, cold or heat intolerance. No polyuria or polydipsia. ALLERGIES: No history of asthma, hives, eczema or rhinitis. Vital Signs Vital Signs Vital Signs: 03/05/23 19:16 03/05/23 22:44 Temperature 98.9 F Temperature Source Temporal Pulse Rate 73 69 Respiratory Rate 18 15 Blood Pressure 153/74 H 153/74 H Blood Pressure Mean 100 100 Pulse Ox 97 91 Oxygen Delivery Method Room Air Room Air Weight Weight: 132 lb 7.965 oz Body Mass Index (BMI) 20.7 Physical Exam Narrative Physical Examination: General: Awake, alert, oriented to self, place and recent events, remains cooperative, seated upright in the ED bed, fatigued but no acute distress. Skin: Normal color, normal turgor, no icterus, no cyanosis, well-healing incision along the throat status post suspected parathyroidectomy. HEENT: AT/NC, EOMI, PERRLA, mildly dry MM, no carotid bruits or JVD noted, see skin. Lungs: Mild diminished, greater bases, proper effort, no rales, ronchi or wheezing. Heart: Currently regular rate and rhythm; no gallop, rub audible. Abdomen: Soft, NTTP, ND, normal BS, no HSM. Extremities: No cyanosis, no clubbing, no significant peripheral edema but patient does have bilateral knee effusions, right greater than left with some discomfort with palpation to the right knee. Neurological: Patient awake, alert, oriented as noted, cognitive function suspect baseline intact with underlying history of dementia with memory impairment; pupils equally reactive to light and accommodation, cranial nerves grossly normal, moving all 4 extremities although limited especially right knee secondary to discomfort with activity attempts, no specific focal deficits, strength accordingly moderately to severely global decreased. Psychiatric: Affect appears mildly fatigued otherwise normal, no acute evidence of depressive or anxiety feelings. Results Lab / Micro Data Result Diagrams: 03/05/23 20:32 03/05/23 20:32 Labs: Laboratory Results - last 24 hr 03/05/23 20:32: WBC 11.8 H, RBC 3.68 L, Hgb 11.7 L, Hct 36.4 L, MCV 98.9 H, MCH 31.8, MCHC 32.1, RDW Std Deviation 55.6 H, RDW Coeff of Eduarda 15.4 H, Plt Count 225, MPV 10.5, Immature Gran % (Auto) 0.300, Neut % (Auto) 75.4 H, Lymph % (Auto) 13.3 L, [place] % (Auto) 9.3, Eos % (Auto) 1.4, Baso % (Auto) 0.3, Absolute Neuts (auto) 8.9 H, Absolute Lymphs (auto) 1.56, Nucleated RBC % 0 03/05/23 20:32: Sodium 140, Potassium 4.5, Chloride 111 H, Carbon Dioxide 27.0, Anion Gap 2 L, BUN 34 H, Creatinine 1.64 H, Est GFR (MDRD) Af Amer 52 L, Est GFR (MDRD) Non-Af 43 L, BUN/Creatinine Ratio 20.7 H, Glucose 111 H, Calcium 9.2 03/05/23 21:01: Urine Color Yellow, Urine Clarity Clear, Urine pH 8.0, Ur Specific [place] 1.010, Urine Protein 100 H, Urine Glucose (UA) Normal, Urine Ketones Negative, Urine Occult Blood Negative, Urine Nitrite Negative, Urine Bilirubin Negative, Urine Urobilinogen 1 H, Ur Leukocyte Esterase 25 H, Urine RBC 0 SEEN, Urine WBC 0-5 SEEN, Ur Squamous Epith Cells 0 SEEN, Urine Bacteria RARE, Urine Mucus 0 SEEN Radiology Impression Venous Duplex 03/05/23 22:14 IMPRESSION: No sonographic evidence of deep venous thrombosis. Electronically Signed: Roberth Diez MD at 23:40 EDT , Chest X-Ray 03/05/23 22:48 IMPRESSION: Hypoinflated study without radiographic evidence of acute cardiopulmonary disease. Electronically Signed: Roberth Diez MD at 23:14 EDT , Assessment & Plan Assessment/Plan (1) Generalized weakness: PLAN: Plan The patient is an 82 y/o M w/ PMHx: Alzheimer's disease, Hairy Cell Leukemia following w/ Dr. Andrade Dx 1982, Chronic Systolic CHF, HTH, HLD Gout, Diabetes mellitus type II, BPH, Chronic anemia/iron deficiency anemia anxiety and Depression who presents to the [facility] ED on 03/06/23 with history of increasing fatigue, malaise with notable bilateral lower extremity weakness as well as bilateral knee pain reporting he did have recent unclear parathroid surgery but from description possible resection given inability to safely take care of himself and risk of fall prompted ED evaluation. #1. Adult FTT with BL LE Weakness, Debility, no knee pain with right greater than left knee effusion noted: Will admit to MS, patient calcium level is normal although ionized calcium has been requested but this is a send out, patient does appear to be dehydrated with mild renal insufficiency otherwise no severe electrolyte disturbances, will obtain TSH/free T4 to be cautious, maintain on fall precautions, continue judicious IV fluids, pain regimen for bilateral knee discomfort, PT/OT/case management consultation for discharge planning, maintain on fall precautions, will obtain BL knee plain films to be cautious, procalcitonin requested. Patient does have bilateral effusion, right greater than left thus pending response to the above-noted evaluation and treatments could certainly consider orthopedic surgery consultation for aspiration. #2. Acute renal insufficiency on CKD stage III, unclear subtype: Admission BUN/creatinine 34/1.64, baseline creatinine function noted previously primarily 0.9-1.2, will continue judicious hydration, repeat function in a.m., if worsening hold nephrotoxic regimen and would consider FeNa/renal US. #3. Recent Parathyroid surgery, questionable parathyroidectomy: Admission calcium level is noted normal although ionized calcium has been requested but this is a send out, will attempt to obtain records. #4. Hairy Cell Leukemia: Patient following w/ Dr. Andrade Dx 1982 s/p splenectomy w/ relapse 1984 with Tx Pentastatin/ECOG protocol w/ remission achieved, encourage continued outpatient follow-up as previously arranged. #5. Chronic macrocytic anemia/iron deficiency anemia: Admission hemoglobin 11.7, MCV 98.9, baseline hemoglobin appears 11-12, stable, continue to trend, continue supplementation. #6. Chronic systolic CHF: No recent echocardiogram in the system, last noted EF 35% from remote echo with catheterization 2004 with nonobstructive disease, continue judicious hydration given his history, continue aspirin, statin, cautiously losartan as noted, not on beta-lynn therapy with it listed in the allergy section but unclear reaction. #7. Alzheimer's disease with associated dementia, no behavioral disturbance history: Complicates presentation, maintain on fall precautions, continue patient home memantine and donepezil regimen, PT/OT/case management consultation for discharge planning. #8. Anxiety and depression: We will continue patient home paroxetine regimen. #9. Diabetes mellitus type II: Hold oral home regimen, ADA diet, accu checks w/ ISS. #10. Hypertension: Continue home regimen including losartan cautiously with hold if renal function worsens as noted, PRN hydralazine. #11. Hyperlipidemia: Continue patient home statin therapy. #12. Gout: Continue patient home allopurinol regimen. #13. BPH: We will continue patient home finasteride, doxazosin home regimen. #14. DVT prophylaxis: Lovenox. #15. CODE status: Patient HCPOA is his and living will is currently in place. Discussed CODE status at length including difference between FULL code, DNR-CCA and DNR-CC status. Following discussions about the differences in these status, requested Full Code status. Advanced Care Planning Face to Face Time: 16 minutes. Admission Evaluation Time spent evaluating chart, patient history, patient evaluation, care planning and discussion with specialists: 55 minutes. Charges/Coding Visit Charges Inpatient E&M: 89784 Init Hosp L2 Procedures Hospitalists Procedures: 32720 Advncd Care Plan 30 Min
--- NOTE | 2023-03-06 00:25 | EDS_ITS ---
HPI History of Present Illness Chief Complaint: Weakness Narrative Narrative: Patient is 82-year-old male from home with past medical history of hypertension diabetes BPH and congestive heart failure. According to patient and he has had generalized weakness since COVID. However he underwent a parathyroid gland removal roughly 6 days ago and since that time has had increased weakness. Patient and state that he cannot get up on his own and once he does he just shuffles his legs in place and does not ambulate. The states that as they are at home alone they have no one who can help care for him and with his increased weakness and recent surgery brought him in for evaluation [facility] Medical History Alzheimer's disease Anxiety Benign prostate hyperplasia COVID-19 Degenerative disc disease, cervical DM2 (diabetes mellitus, type 2) Former smoker Gout Hairy cell leukemia Heart failure with reduced ejection fraction HTN (hypertension) Hyperlipidemia Left bundle branch block Mild cognitive impairment with memory loss Home Medications atorvastatin 10 mg tablet 10 mg PO QHS CHOLESTEROL 11/20/15 [History Last Taken 05/26/21 22:00] doxazosin 1 mg tablet 1 mg PO QHS prostate 11/20/15 [History Last Taken 05/26/21 22:00] metformin 500 mg tablet 500 mg PO BIDCM DM 11/20/15 [History Last Taken 05/27/21 08:00] donepezil 5 mg tablet 10 mg PO QHS memory 11/28/17 [History Last Taken 05/26/21 22:00] paroxetine HCl 10 mg tablet 10 mg PO DAILY anxiety 11/28/17 [History Last Taken 05/27/21 08:00] allopurinol 300 mg tablet (Zyloprim) 300 mg PO DAILY GOUT 04/30/18 [History Last Taken 05/27/21 08:00] memantine 5 mg tablet 10 mg PO BID memory 05/26/21 [History Last Taken 05/27/21 08:00] acetaminophen 500 mg tablet 500 mg PO Q6H PRN Pain 05/28/21 [History Last Taken 05/27/21 08:00] finasteride 5 mg tablet 5 mg PO DAILY 07/01/21 [History Last Taken Unknown] albuterol sulfate 2.5 mg/3 mL (0.083 %) solution for nebulization 2.5 mg (3 mL) inhalation Q2H PRN PRN SOB/Wheezing #0 mL 07/14/21 [Rx Last Taken Unknown] losartan 25 mg tablet 50 mg PO DAILY heart #0 tabs 07/14/21 [Rx Last Taken 05/27/21 08:00] polysaccharide iron complex 150 mg iron capsule (Ferrex) 150 mg PO DAILY #90 caps 05/17/22 [Rx Last Taken Unknown] calcium carbonate-vitamin D3 1 tab PO/SL TID supplement 03/05/23 [History Last Taken Unknown] ibuprofen 200 mg capsule 200 mg PO Q4H PRN Pain 03/05/23 [History Last Taken Unknown] Allergy/AdvReac Type Severity Reaction Status Date / Time gabapentin Allergy tremors Verified 03/05/23 19:16 metoprolol [From Toprol XL] Allergy PT UNSURE Verified 03/05/23 19:16 OF REACTION ramipril [From Altace] Allergy PT UNSURE Verified 03/05/23 19:16 OF REACTION Family History Mother Cancer Father Heart disease Hypertension Surgical History H/O total hip arthroplasty History of appendectomy Hx of splenectomy Social History household members: spouse Smoking Status: Former smoker alcohol intake: never substance use type: does not use ROS ROS ED Constitutional Constitutional ED: Denies chills or fever(s) Eyes Eyes: Denies change in vision ENT ENT ED: Denies sore throat Cardiovascular Cardiovascular: Denies chest pain Respiratory/Chest Respiratory/Chest: Denies cough or dyspnea Gastrointestinal Gastrointestinal: Denies abdominal pain, diarrhea, nausea or vomiting Genitourinary Genitourinary ED: Denies dysuria Musculoskeletal Musculoskeletal: Denies myalgias Integumentary Denies rash Neurologic Neurologic: Reports weakness; Denies headache(s) or paresthesias Hematologic/Lymphatic Hematologic/Lymphatic: Denies easy bleeding or easy bruising EXAM Physical Exam Const Vital Signs: 03/05/23 19:16 03/05/23 22:44 03/06/23 00:25 Temperature 98.9 F 98.9 F Temperature Source Temporal Temporal Pulse Rate 73 69 75 Respiratory Rate 18 15 15 Blood Pressure 153/74 H 153/74 H 158/78 H Blood Pressure Mean 100 100 104 Pulse Ox 97 91 95 Oxygen Delivery Method Room Air Room Air Room Air Positive well nourished and well developed General Appearance ED: well developed HEENT Reports dry mucous membranes HEENT Narrative: Mucous membranes are mildly dry and tacky consistent with dehydration. No airway edema or compromise and no signs of infection noted in the posterior pharynx Mouth ED: Yes dry mucous membranes Mouth: dry mucous membranes Eyes PERRL and EOMs intact bilaterally Neck supple Neck Narrative: No nuchal rigidity or meningeal signs present Chest Wall palpation of chest normal Resp normal respiratory effort and clear to auscultation bilaterally Resp Narrative: Breath sounds are diminished throughout but overall clear to auscultation with no signs of distress Cardio regular rate and regular rhythm Rate: other Other Details: Radial pulses are plus 2 out of 4 bilaterally are equal and symmetric GI normal to inspection, nondistended, normoactive bowel sounds, non-tender, non-distended and no masses GI Narrative: No voluntary guarding or rigidity no pulsatile mass Auscultation: normoactive bowel sounds Palpation: soft Back/Spine Back/Spine Narrative: No bony deformity or step-off of the cervical thoracic or lumbar spine no midline pain with palpation Extremity Extremity Narrative: .Bilateral lower extremities are neurovascularly intact. Patient has small effusions to the anterior aspect of both knees slightly greater on the right. However there is no overlying erythema or warmth no lymphangitic streaking no cellulitis or abscess formation noted. Negative Homans' sign bilaterally. Compartments are soft going against compartment syndrome and patient does have active range of motion of both knees going against septic joint Neuro oriented x3 and CN's II-XII intact bilaterally Neuro Narrative: No pronator drift no dysmetria no truncal ataxia. Strength is plus 5 out of 5 in the bilateral upper extremity. Strength is plus 5 out of 5 in the left lower extremity and plus 4 out of 5 in the right. However patient reports pain with motion of the right leg and therefore weakness is related to pain not neurologic dysfunction Sensorium / Orientation: alert Psych mental status grossly normal Skin Skin Narrative: Skin turgor is increased Healing surgical wound to the anterior neck consistent recent parathyroid gland removal. Wound is clean dry and intact without secondary changes to suggest infection MDM MDM MDM Narrative Medical decision making narrative: Patient presented to the ER slightly hypertensive but otherwise with stable vitals and does have a history of hypertension. He reported generalized weakness making it difficult to ambulate and there is no focal neurologic deficit going against acute stroke so I felt no need to activate a stroke alert to perform a CT/CTA. With his recent surgery and mild swelling to both knees I did elect to perform a venous duplex to rule out DVT as a cause of his pain. Venous duplex was negative. Labs also show no signs of acute urinary tract infection or significant anemia or acute kidney injury as a cause of his progressive weakness. At this time the patient cannot ambulate despite hydration and therefore he is not safe for home as he is unable to walk. He was informed that he may need placement in rehab or halfway since he cannot ambulate and he is agreeable to this. The case was discussed with medicine on- call and they do agree to set the patient at this time based on his persistent weakness and inability to ambulate. History & Record Review Discussion w/independent historian: Patient and Significant other Lab Data Attestation: I reviewed the patient's lab results. Labs: Laboratory Results - last 24 hr 03/05/23 03/05/23 03/05/23 20:32 20:32 21:01 WBC 11.8 H RBC 3.68 L Hgb 11.7 L Hct 36.4 L MCV 98.9 H MCH 31.8 MCHC 32.1 RDW Std Deviation 55.6 H RDW Coeff of Eduarda 15.4 H Plt Count 225 MPV 10.5 Immature Gran % (Auto) 0.300 Neut % (Auto) 75.4 H Lymph % (Auto) 13.3 L [place] % (Auto) 9.3 Eos % (Auto) 1.4 Baso % (Auto) 0.3 Absolute Neuts (auto) 8.9 H Absolute Lymphs (auto) 1.56 Nucleated RBC % 0 Sodium 140 Potassium 4.5 Chloride 111 H Carbon Dioxide 27.0 Anion Gap 2 L BUN 34 H Creatinine 1.64 H Est GFR (MDRD) Af Amer 52 L Est GFR (MDRD) Non-Af 43 L BUN/Creatinine Ratio 20.7 H Glucose 111 H Calcium 9.2 Urine Color Yellow Urine Clarity Clear Urine pH 8.0 Ur Specific [place] 1.010 Urine Protein 100 H Urine Glucose (UA) Normal Urine Ketones Negative Urine Occult Blood Negative Urine Nitrite Negative Urine Bilirubin Negative Urine Urobilinogen 1 H Ur Leukocyte Esterase 25 H Urine RBC 0 SEEN Urine WBC 0-5 SEEN Ur Squamous Epith Cells 0 SEEN Urine Bacteria RARE Urine Mucus 0 SEEN Radiography Diagnostic Testing: Clinical Impression(s) from Imaging Studies Venous Duplex 03/05/23 22:14 IMPRESSION: No sonographic evidence of deep venous thrombosis. Electronically Signed: Roberth Diez MD at 23:40 EDT , Chest X-Ray 03/05/23 22:48 IMPRESSION: Hypoinflated study without radiographic evidence of acute cardiopulmonary disease. Electronically Signed: Roberth Diez MD at 23:14 EDT , Chest x-ray as interpreted by the emergency medicine physician reveals elevation of the left hemidiaphragm which is chronic in nature without acute infiltrate pneumothorax or pleural effusion Management Discussion w/another healthcare provider: Hospitalist Discharge Plan Dx/Rx/DC Orders Clinical Impression: Generalized weakness, Hypertension, Inability to walk Disposition Disposition: Acute Care Hospital [facility] Discharge Date/Time: 03/06/23 01:14
[2023-03-06 01:13] LABS: Magnesium 1.7 mg/dL (1.6-2.6); Phosphorus 2.5 mg/dL (2.5-4.9)
[2023-03-06 01:23] LABS: Procalcitonin 0.09 ng/mL (0.00-0.09)
[2023-03-06] MEDS: 0.9% Saline Lock 10 ML Syringe IV (01:45)
[2023-03-06] MEDS: 0.9% Normal Saline 1,000 ML 100 ML IV ×2 (01:46→09:28)
[2023-03-06 06:39] LABS: Absolute Lymphocyte Count 1.59 X10^3/uL (0.83-4.51); Basophil# 0.03 X10^3/uL; Basophil% 0.3 % (0-1); Eosinophils% 0.8 % (0-5); Hemoglobin 10.6 g/dL (13.0-16.5); Lymphocyte # 1.59 X10^3/ul (0.83-4.51); Lymphocyte % 13.3 % (19-41); Mean Corp Hgb Conc 32.1 g/dL (32-36); Mean Corpuscular Hgb 31.4 pg (27.0-32.0); Mean Corpuscular Volume 97.6 fL (80-94); Mean Platelet Vol. 11.1 fl (6.2-12.0); Monocyte# 1.16 X10^3/uL; Monocyte% 9.7 % (0-10); NRBC Flagged by Analyzer 0 % (0-5); Neutrophil # 9.04 X10^3/uL (2.7-7.7); Neutrophil % 75.5 % (47-70); Platelet Count 226 K/mm3 (150-450); RBC Distribution Width CV 15.2 % (11.6-14.6); RBC Distribution Width SD 54.5 fl (35.1-43.9); Red Blood Count 3.38 M/mm3 (4.6-6.2)
[2023-03-06 07:05] LABS: Bedside Glucose 125 mg/dL (74-106)
[2023-03-06 07:18] LABS: ALB/GLOB Ratio 0.7 RATIO (0.9-2.4); AST(SGOT) 65 U/L (15-37); Alanine Aminotransfer ALT/SGPT 31 U/L (16-61); Albumin, Serum 2.6 g/dL (3.2-5.0); Alkaline Phosphatase 93 U/L (45-117); Anion Gap 0 (5-15); BUN 29 mg/dL (7-18); BUN/Creat Ratio 19.7 RATIO (10-20); Calcium,Total 8.6 mg/dL (8.5-10.1); Chloride 113 mmol/L (98-107); Creatinine, Serum 1.47 mg/dL (0.70-1.30); EST Glomerular Filtration Rate 49 mL/min (>60); Est Glom Filt Rate - Afr Amer 59 mL/min (>60); Estimated Creatinine Clearance 33.16 ml/min; Globulin 3.5 g/dL (2.2-4.2); Glucose 128 mg/dL (74-106); Potassium 3.6 mmol/L (3.5-5.1); Protein, Total 6.1 g/dL (6.4-8.2); Sodium Level 140 mmol/L (136-145); T4 Free Direct 1.46 ng/dL (0.76-1.46); Thyroid Stim Hormone (TSH) 0.26 uIU/mL (0.358-3.74)
--- NOTE | 2023-03-06 07:47 | PN.HOSP_ITS ---
Reason for Visit Reason for Visit: Diagnoses Weakness (03/06/23) Subjective Subjective Pt had been weak with shuffling gait. Saturday, he got increasingly weak. Complains of bilateral knee pain. Objective Data Objective Data Vital Signs: Vital Signs Temp Pulse Resp BP Pulse Ox O2 Del Method 36.3 C L 66 18 156/79 H 95 Room Air 03/06/23 06:36 03/06/23 06:36 03/06/23 06:36 03/06/23 06:36 03/06/23 06:36 03/06/23 06:36 Oxygen Delivery Method Room Air Weight: 58.5 kg Body Mass Index (BMI) 22.0 Intake & Output: Intake and Output for Last 24 Hours 03/04/23 03/05/23 03/06/23 23:59 23:59 23:59 Intake Total 1000 / 1000 200 / 200 Output Total 200 / 200 Balance 1000 / 1000 0 / 0 Lab / Micro Data Result Diagrams: 03/06/23 06:05 03/06/23 06:05 Labs: Laboratory Results - last 24 hr 03/05/23 20:32: WBC 11.8 H, RBC 3.68 L, Hgb 11.7 L, Hct 36.4 L, MCV 98.9 H, MCH 31.8, MCHC 32.1, RDW Std Deviation 55.6 H, RDW Coeff of Eduarda 15.4 H, Plt Count 225, MPV 10.5, Immature Gran % (Auto) 0.300, Neut % (Auto) 75.4 H, Lymph % (Auto) 13.3 L, Boyle % (Auto) 9.3, Eos % (Auto) 1.4, Baso % (Auto) 0.3, Absolute Neuts (auto) 8.9 H, Absolute Lymphs (auto) 1.56, Nucleated RBC % 0 03/05/23 20:32: Sodium 140, Potassium 4.5, Chloride 111 H, Carbon Dioxide 27.0, Anion Gap 2 L, BUN 34 H, Creatinine 1.64 H, Est GFR (MDRD) Af Amer 52 L, Est GFR (MDRD) Non-Af 43 L, BUN/Creatinine Ratio 20.7 H, Glucose 111 H, Calcium 9.2 03/05/23 21:01: Urine Color Yellow, Urine Clarity Clear, Urine pH 8.0, Ur Specific Charlotte 1.010, Urine Protein 100 H, Urine Glucose (UA) Normal, Urine Ketones Negative, Urine Occult Blood Negative, Urine Nitrite Negative, Urine Bilirubin Negative, Urine Urobilinogen 1 H, Ur Leukocyte Esterase 25 H, Urine RBC 0 SEEN, Urine WBC 0-5 SEEN, Ur Squamous Epith Cells 0 SEEN, Urine Bacteria RARE, Urine Mucus 0 SEEN 03/06/23 00:40: Phosphorus 2.5, Magnesium 1.7 03/06/23 00:40: Procalcitonin 0.09 03/06/23 03:00: COVID-19 ([facility]) Not Detected 03/06/23 06:05: WBC 12.0 H, RBC 3.38 L, Hgb 10.6 L, Hct 33.0 L, MCV 97.6 H, MCH 31.4, MCHC 32.1, RDW Std Deviation 54.5 H, RDW Coeff of Eduarda 15.2 H, Plt Count 226, MPV 11.1, Immature Gran % (Auto) 0.400, Neut % (Auto) 75.5 H, Lymph % (Auto) 13.3 L, Boyle % (Auto) 9.7, Eos % (Auto) 0.8, Baso % (Auto) 0.3, Absolute Neuts (auto) 9.0 H, Absolute Lymphs (auto) 1.59, Nucleated RBC % 0 03/06/23 06:05: Sodium 140, Potassium 3.6, Chloride 113 H, Carbon Dioxide 27.0, Anion Gap 0 L, BUN 29 H, Creatinine 1.47 H, Estim Creat Clear Calc 33.16, Est GFR (MDRD) Af Amer 59 L, Est GFR (MDRD) Non-Af 49 L, BUN/Creatinine Ratio 19.7, Glucose 128 H, Calcium 8.6, Total Bilirubin 0.50, AST 65 H, ALT 31, Alkaline Phosphatase 93, Total Protein 6.1 L, Albumin 2.6 L, Globulin 3.5, Albumin/Globulin Ratio 0.7 L, TSH 0.26 L, Free T4 1.46 03/06/23 06:41: POC Glucose 125 H Radiography Diagnostic Testing: Radiology Impression Venous Duplex 03/05/23 22:14 IMPRESSION: No sonographic evidence of deep venous thrombosis. Electronically Signed: Roberth Diez MD at 23:40 EDT , Chest X-Ray 03/05/23 22:48 IMPRESSION: Hypoinflated study without radiographic evidence of acute cardiopulmonary disease. Electronically Signed: Roberth Diez MD at 23:14 EDT , Physical Exam Const alert and no apparent distress Resp normal respiratory effort, no retractions, no use of accessory muscles and clear to auscultation bilaterally Cardio regular rate, regular rhythm, S1 normal heart sound and S2 normal heart sound GI normal to inspection, nondistended, normoactive bowel sounds, soft to palpation, non-tender and non-distended Extremity Extremity Narrative: right knee effusion w/o warmth. minimal tenderness. Assessment & Plan Assessment/Plan (1) Generalized weakness: PLAN: Adult FTT with BL LE Weakness, Debility, no knee pain with right greater than left knee effusion noted: patient does appear to be dehydrated with mild renal insufficiency otherwise no severe electrolyte disturbances, TSH low, but fT4 WNLw PT/OT/case management consultation for discharge planning, maintain on fall precautions, will obtain BL knee plain films to be cautious, procalcitonin requested. (2) Effusion, right knee: PLAN: doubt septic arthritis nor gouty arthritis start prednisone burst. consider arthrocentesis if worse. 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 Chronic conditions: * CKD stage III, unclear subtype: Admission BUN/creatinine 34/1.64, baseline creatinine function noted previously primarily 0.9-1.2, will continue judicious hydration, repeat function in a.m., if worsening hold nephrotoxic regimen and would consider FeNa/renal US. * Recent Parathyroid surgery, questionable parathyroidectomy: Admission calcium level is noted normal although ionized calcium has been requested but this is a send out, will attempt to obtain records. * hairy Cell Leukemia: Patient following w/ Dr. Andrade Dx 1982 s/p splenectomy w/ relapse 1984 with Tx Pentastatin/ECOG protocol w/ remission achieved, encourage continued outpatient follow-up as previously arranged. * Chronic macrocytic anemia/iron deficiency anemia: Admission hemoglobin 11.7, MCV 98.9, baseline hemoglobin appears 11-12, stable, continue to trend, continue supplementation. * Chronic systolic CHF: No recent echocardiogram in the system, last noted EF 35% from remote echo with catheterization 2004 with nonobstructive disease, continue judicious hydration given his history, continue aspirin, statin, cautiously losartan as noted, not on beta-lynn therapy with it listed in the allergy section but unclear reaction. * Alzheimer's disease with associated dementia, no behavioral disturbance history: Complicates presentation, maintain on fall precautions, continue patient home memantine and donepezil regimen, PT/OT/case management consultation for discharge planning. * Anxiety and depression: We will continue patient home paroxetine regimen. * Diabetes mellitus type II: Hold oral home regimen, ADA diet, accu checks w/ ISS.Hypertension: Continue home regimen including losartan cautiously with hold if renal function worsens as noted, PRN hydralazine. \ * Hyperlipidemia: Continue patient home statin therapy. * Gout: Continue patient home allopurinol regimen. * BPH: We will continue patient home finasteride, doxazosin home regimen. DVT prophylaxis: Lovenox. CODE status: Full code Charges/Coding Visit Charges Inpatient E&M: 31716 Subs Hosp L2
[2023-03-06] MEDS: Aspirin 81 MG TAB.CHEW PO (09:22)
[2023-03-06] MEDS: Enoxaparin 40 MG/0.4 ML Syringe SC (09:27)
[2023-03-06] MEDS: Memantine Hydrochloride 10 MG Tablet PO ×2 (09:27→22:01)
[2023-03-06] MEDS: Finasteride 5 MG Tablet PO (09:28)
[2023-03-06] MEDS: PARoxetine 10 MG Tablet PO (09:28)
[2023-03-06] MEDS: Allopurinol 300 MG Tablet PO (09:28)
[2023-03-06] MEDS: Losartan Potassium 50 MG Tablet PO (09:28)
[2023-03-06] MEDS: Calcium Carb/Vitamin D 1 TABLET Tablet PO ×2 (09:28→17:45)
--- NOTE | 2023-03-06 10:05 | RAD_ITS ---
STUDY: X-RAY - LEFT KNEE REASON FOR EXAM: Male, 82 years old. BL knee pain -- 2 view each TECHNIQUE: 2 view(s) of the knee. COMPARISON: Comparison is made with prior study September 04, 2017. FINDINGS: Normal visualized distal femur. Normal visualized proximal tibia and fibula. Normal proximal tibiofibular articulation. There is severe degenerative arthrosis of the medial femorotibial compartment with severe joint space narrowing. There is moderate degenerative arthrosis of the lateral femorotibial compartment with moderate joint space narrowing. There is severe degenerative arthrosis of the patellofemoral articulation. Virus deformity. Moderate-sized joint effusion. RAD/Knee 1 or 2 Views IMPRESSION: Degenerative arthrosis. Electronically Signed: Missael Sterling MD at 10:39 EDT ,
--- NOTE | 2023-03-06 10:05 | RAD_ITS ---
STUDY: X-RAY - RIGHT KNEE REASON FOR EXAM: Male, 82 years old. KNEE PAIN -- 2 view each TECHNIQUE: 2 view(s) of the knee. COMPARISON: Comparison is made with prior study dated September 04, 2017. FINDINGS: Normal visualized distal femur. Normal visualized proximal tibia and fibula. Normal proximal tibiofibular articulation. There is severe degenerative arthrosis of the medial femorotibial compartment with severe joint space narrowing. There is mild degenerative arthrosis of the lateral femorotibial compartment. There is severe degenerative arthrosis of the patellofemoral articulation. Small joint effusion. Chondrocalcinosis of the lateral meniscus. RAD/Knee 1 or 2 Views IMPRESSION: Degenerative arthrosis. Small joint effusion. Chondrocalcinosis. Electronically Signed: Missael Sterling MD at 10:38 EDT ,
[2023-03-06 11:51] LABS: Bedside Glucose 114 mg/dL (74-106)
--- NOTE | 2023-03-06 13:16 | CASEMGMT ---
TRACY CM in to discuss FERNANDEZ form with patient. RN CM explained FERNANDEZ form, patient voiced understanding. Pt signed form and filed in chart. Pt provided with a copy of signed FERNANDEZ form. Patient had no further questions or concerns at this time.
--- NOTE | 2023-03-06 14:04 | CASEMGMT ---
Addendum entered by Lani White 03/06/23 14:16: PER called pt , Annemarie, to discuss d/c plan. SW read options from SNF list to Annemarie. Annemarie expressed confusion that pt not able to transfer to SNF immediately. SW explained pt is not traditional Medicare A&B- pt has [employer] and that means pt will need an authorization before going to SNF. Annemarie frustrated with this news, still confused as pt used to be straight medicare. PER explained someone must have changed pt insurance as card on file at [facility] is [employer]. Annemarie voiced understanding. Annemarie shared preference is [facility]. SW updated discharge commercial assistant, Susannah, of preference. SW explained [facility] often hesitant to accept patients in recent months and instructed Susannah to send referral to both choices due to complexity. Susannah to send referral. Original Note: Social Work? SW in to meet with pt following update from therapy team that pt will need placement at nursing facility. SW introduced self and role at the hospital. Pt agreeable to discussing discharge planning. A list of SNF providers including quality and resource use data consistent with the patient?s preferred geographic region, medical needs, and insurance network were provided from the [employer] Guide. Pt stated is forgetful and would like to be involved in discussion on choices. Pt stated working and would not be in to [facility] until late evening. SW left SNF list on bedside table and wrote instructions for and pt to pick 2-3 choices for SNF. SW to follow up tomorrow morning for SNF choices, if not able to reach today. PLAN: SNF? [facility]?
--- NOTE | 2023-03-06 14:29 | CASEMGMT ---
Discharge Planning Referrals were sent to both [facility] and [facility] unit per wifes request. Susannah Solis
--- NOTE | 2023-03-06 14:57 | CHAPLAIN ---
Type of Pastoral Visit _x__ Initial Visit ___ Follow-up Visit ___ On-call Visit ___ General Patient Visit ___ Spiritual Assessment ___ Family Conference ___ Bereavement ___ Rapid Response ___ Code Blue ___ Other (describe below) Pastoral Care Referral From _x__ Patient ___ Family ___ Nurse ___ Physician ___ Plugman ___ Staff Registered Nurse ___ Other (describe below) Sacrament/Intervention _x__ Active listening ___ Anointing ___ Jewish ___ Bereavement ___ Communion ___ Alannah exploration ___ _x__ Life review _x__ Prayer ___ Reconciliation ___ Sacrament of Sick ___ Supportive presence ___ Wedding ___ Other (describe below) Pastoral Comments patient has been seen before in previous admissions and 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
[2023-03-06 16:35] LABS: Bedside Glucose 173 mg/dL (74-106)
[2023-03-06] MEDS: predniSONE 20 MG Tablet 40 MG PO (17:58)
[2023-03-06] MEDS: Insulin Lispro 100 UNIT/ML INSULN.PEN SC (22:00)
[2023-03-06] MEDS: Atorvastatin Calcium 10 MG Tablet PO (22:01)
[2023-03-06] MEDS: Doxazosin 1 MG Tablet PO (22:02)
[2023-03-06] MEDS: Donepezil HCl 10 MG Tablet PO (22:02)
[2023-03-06] MEDS: Clotrimazole 1 APPLIC Tube TOPICAL (22:06)
[2023-03-07 01:10] LABS: Bedside Glucose 172 mg/dL (74-106)
[2023-03-07 06:00] VITALS: BP 135/80; PULSE 70; RESP 18; TEMP 36.7; O2SAT 95; BMI 20.8
[2023-03-07 06:30] LABS: Bedside Glucose 126 mg/dL (74-106)
--- NOTE | 2023-03-07 07:23 | PN.HOSP_ITS ---
Reason for Visit Reason for Visit: Diagnoses Effusion, right knee (03/06/23) Weakness (03/06/23) Subjective Subjective Was able to work with therapy using a walker. Denies any current knee pain. Objective Data Objective Data Vital Signs: Vital Signs Temp Pulse Resp BP Pulse Ox O2 Del Method 36.7 C 70 18 135/80 H 95 Room Air 03/07/23 06:00 03/07/23 06:00 03/07/23 06:00 03/07/23 06:00 03/07/23 06:00 03/07/23 06:00 Oxygen Delivery Method Room Air Weight: 55.4 kg Body Mass Index (BMI) 20.8 Intake & Output: Intake and Output for Last 24 Hours 03/05/23 03/06/23 03/07/23 23:59 23:59 23:59 Intake Total 1000 / 1000 2345 / 2345 Output Total 400 / 400 Balance 1000 / 1000 1945 / 1945 Lab / Micro Data Result Diagrams: 03/06/23 06:05 03/06/23 06:05 Labs: Laboratory Results - last 24 hr 03/06/23 11:32: POC Glucose 114 H 03/06/23 16:15: POC Glucose 173 H 03/06/23 21:59: POC Glucose 172 H 03/07/23 06:09: POC Glucose 126 H Radiography Diagnostic Testing: Radiology Impression Knee X-Ray 03/06/23 10:05 IMPRESSION: Degenerative arthrosis. Electronically Signed: Missael Sterling MD at 10:39 EDT , Knee X-Ray 03/06/23 10:05 IMPRESSION: Degenerative arthrosis. Small joint effusion. Chondrocalcinosis. Electronically Signed: Missael Sterling MD at 10:38 EDT , Physical Exam Const alert and no apparent distress Resp normal respiratory effort, no retractions, no use of accessory muscles and clear to auscultation bilaterally Cardio regular rate, regular rhythm, S1 normal heart sound and S2 normal heart sound GI normal to inspection, nondistended, normoactive bowel sounds, soft to palpation, non-tender and non-distended Extremity normal to inspection Extremity Narrative: resolved effusion of right knee. Assessment & Plan Assessment/Plan (1) Generalized weakness: PLAN: Adult FTT with BL LE Weakness, Debility, no knee pain with right greater than left knee effusion noted: patient does appear to be dehydrated with mild renal insufficiency otherwise no severe electrolyte disturbances, TSH low, but fT4 WNLw PT/OT/case management consultation for discharge planning, maintain on fall precautions, will obtain BL knee plain films to be cautious, procalcitonin requested. (2) Effusion, right knee: PLAN: doubt septic arthritis nor gouty arthritis start prednisone burst. consider arthrocentesis if worse. PLAN: Plan The patient is an 82 y/o M w/ PMHx: Alzheimer's disease, Hairy Cell Leukemia following w/ Dr. Lupe Olvera 1982, Chronic Systolic CHF, HTH, HLD Gout, Diabetes mellitus type II, BPH, Chronic anemia/iron deficiency anemia anxiety and Depression who presents to the [facility] ED on 03/06/23 with history of increasing fatigue, malaise with notable bilateral lower extremity weakness as well as bilateral knee pain reporting he did have recent unclear parathroid surgery but from description possible resection given inability to safely take care of himself and risk of fall prompted ED evaluation. Chronic conditions: * CKD stage III, unclear subtype: Admission BUN/creatinine 34/1.64, baseline creatinine function noted previously primarily 0.9-1.2, will continue judicious hydration, repeat function in a.m., if worsening hold nephrotoxic regimen and would consider FeNa/renal US. * Recent Parathyroid surgery, questionable parathyroidectomy: Admission calcium level is noted normal although ionized calcium has been requested but this is a send out, will attempt to obtain records. * hairy Cell Leukemia: Patient following w/ Dr. Lupe Olvera 1982 s/p splenectomy w/ relapse 1984 with Tx Pentastatin/ECOG protocol w/ remission achieved, encourage continued outpatient follow-up as previously arranged. * Chronic macrocytic anemia/iron deficiency anemia: Admission hemoglobin 11.7, MCV 98.9, baseline hemoglobin appears 11-12, stable, continue to trend, continue supplementation. * Chronic systolic CHF: No recent echocardiogram in the system, last noted EF 35% from remote echo with catheterization 2004 with nonobstructive disease, continue judicious hydration given his history, continue aspirin, statin, cautiously losartan as noted, not on beta-lynn therapy with it listed in the allergy section but unclear reaction. * Alzheimer's disease with associated dementia, no behavioral disturbance history: Complicates presentation, maintain on fall precautions, continue patient home memantine and donepezil regimen, PT/OT/case management consultation for discharge planning. * Anxiety and depression: We will continue patient home paroxetine regimen. * Diabetes mellitus type II: Hold oral home regimen, ADA diet, accu checks w/ ISS.Hypertension: Continue home regimen including losartan cautiously with hold if renal function worsens as noted, PRN hydralazine. \ * Hyperlipidemia: Continue patient home statin therapy. * Gout: Continue patient home allopurinol regimen. * BPH: We will continue patient home finasteride, doxazosin home regimen. DVT prophylaxis: Lovenox. CODE status: Full code Disposition: to SNF pending insurance authorization. Charges/Coding Visit Charges Inpatient E&M: 09842 Subs Hosp L2
[2023-03-07 09:17] VITALS: BP 138/63; PULSE 83; RESP 18; TEMP 36.5; O2SAT 97
[2023-03-07] MEDS: Allopurinol 300 MG Tablet PO (09:19)
[2023-03-07] MEDS: Iron Polysaccharide Complex 150 MG CAPSULE PO (09:19)
[2023-03-07] MEDS: Memantine Hydrochloride 10 MG Tablet PO ×2 (09:19→22:06)
[2023-03-07] MEDS: Calcium Carb/Vitamin D 1 TABLET Tablet PO ×3 (09:19→16:18)
[2023-03-07] MEDS: Enoxaparin 40 MG/0.4 ML Syringe SC (09:20)
[2023-03-07] MEDS: Losartan Potassium 50 MG Tablet PO (09:20)
[2023-03-07] MEDS: PARoxetine 10 MG Tablet PO (09:20)
[2023-03-07] MEDS: Finasteride 5 MG Tablet PO (09:20)
[2023-03-07] MEDS: Aspirin 81 MG TAB.CHEW PO (09:20)
[2023-03-07] MEDS: predniSONE 20 MG Tablet 40 MG PO (09:21)
[2023-03-07] MEDS: Clotrimazole 1 APPLIC Tube TOPICAL ×2 (09:21→22:06)
--- NOTE | 2023-03-07 11:30 | CASEMGMT ---
Social Work [facility] able to accept pt. [facility] has not viewed referral. SW called pt to discuss. , Annemarie, stated [facility] but if they have not accepted yet that [facility] would be appropriate. Annemarie confirmed that [facility] is not first choice. PER updated Susannah, discharge surgical first assistant. Susannah to ask [facility] to initiate precert. PLAN: [facility], pending precert [facility]
[2023-03-07] MEDS: Insulin Lispro 100 UNIT/ML INSULN.PEN SC ×2 (11:37→22:06)
[2023-03-07 12:05] LABS: Bedside Glucose 151 mg/dL (74-106)
[2023-03-07 14:00] VITALS: BP 143/73; PULSE 60; RESP 18; TEMP 36.5; O2SAT 97
[2023-03-07 16:45] LABS: Bedside Glucose 140 mg/dL (74-106)
[2023-03-07 20:45] VITALS: BP 136/72; PULSE 68; RESP 16; TEMP 36.6; O2SAT 96
[2023-03-07 21:01] LABS: Bedside Glucose 274 mg/dL (74-106)
[2023-03-07] MEDS: Donepezil HCl 10 MG Tablet PO (22:06)
[2023-03-07] MEDS: Atorvastatin Calcium 10 MG Tablet PO (22:06)
[2023-03-07] MEDS: Doxazosin 1 MG Tablet PO (22:06)
[2023-03-08 03:21] VITALS: BMI 22.7
[2023-03-08 06:30] VITALS: BP 149/84; PULSE 62; RESP 18; TEMP 36.6; O2SAT 96
[2023-03-08 07:00] LABS: Bedside Glucose 108 mg/dL (74-106)
--- NOTE | 2023-03-08 07:13 | PN.HOSP_ITS ---
Reason for Visit Reason for Visit: Diagnoses Effusion, right knee (03/06/23) Weakness (03/06/23) Subjective Subjective Feels well. No further right knee pain nor swelling. Objective Data Objective Data Vital Signs: Vital Signs Temp Pulse Resp BP Pulse Ox O2 Del Method 36.6 C 62 18 149/84 H 96 Room Air 03/08/23 06:30 03/08/23 06:30 03/08/23 06:30 03/08/23 06:30 03/08/23 06:30 03/08/23 06:30 Oxygen Delivery Method Room Air Weight: 60.4 kg Body Mass Index (BMI) 22.7 Intake & Output: Intake and Output for Last 24 Hours 03/06/23 03/07/23 03/08/23 23:59 23:59 23:59 Intake Total 2345 / 2345 Output Total 400 / 400 Balance 1945 / 1945 Lab / Micro Data Result Diagrams: 03/06/23 06:05 03/06/23 06:05 Labs: Laboratory Results - last 24 hr 03/05/23 22:42: Ionized Calcium 4.9 03/07/23 11:35: POC Glucose 151 H 03/07/23 16:17: POC Glucose 140 H 03/07/23 20:43: POC Glucose 274 H 03/08/23 06:29: POC Glucose 108 H Physical Exam Const alert and no apparent distress HEENT head/scalp atraumatic and moist oral mucous membranes Resp normal respiratory effort, no retractions, no use of accessory muscles and clear to auscultation bilaterally Cardio regular rate, regular rhythm, S1 normal heart sound and S2 normal heart sound GI normal to inspection, nondistended, normoactive bowel sounds, soft to palpation, non-tender and non-distended Assessment & Plan Assessment/Plan (1) Generalized weakness: PLAN: Adult FTT with BL LE Weakness, Debility, no knee pain with right greater than left knee effusion noted: patient does appear to be dehydrated with mild renal insufficiency otherwise no severe electrolyte disturbances, TSH low, but fT4 WNLw PT/OT/case management consultation for discharge planning, maintain on fall precautions, will obtain BL knee plain films to be cautious, procalcitonin requested. (2) Effusion, right knee: PLAN: doubt septic arthritis nor gouty arthritis start prednisone burst. consider arthrocentesis if worse. PLAN: Plan The patient is an 82 y/o M w/ PMHx: Alzheimer's disease, Hairy Cell Leukemia following w/ Dr. Lupe Olvera 1982, Chronic Systolic CHF, HTH, HLD Gout, Diabetes mellitus type II, BPH, Chronic anemia/iron deficiency anemia anxiety and Depression who presents to the [facility] ED on 03/06/23 with history of increasing fatigue, malaise with notable bilateral lower extremity weakness as well as bilateral knee pain reporting he did have recent unclear parathroid surgery but from description possible resection given inability to safely take care of himself and risk of fall prompted ED evaluation. Chronic conditions: * CKD stage III, unclear subtype: Admission BUN/creatinine 34/1.64, baseline creatinine function noted previously primarily 0.9-1.2, will continue judicious hydration, repeat function in a.m., if worsening hold nephrotoxic regimen and would consider FeNa/renal US. * Recent Parathyroid surgery, questionable parathyroidectomy: Admission calcium level is noted normal although ionized calcium has been requested but this is a send out, will attempt to obtain records. * hairy Cell Leukemia: Patient following w/ Dr. Lupe Olvera 1982 s/p splenectomy w/ relapse 1984 with Tx Pentastatin/ECOG protocol w/ remission achieved, encourage continued outpatient follow-up as previously arranged. * Chronic macrocytic anemia/iron deficiency anemia: Admission hemoglobin 11.7, MCV 98.9, baseline hemoglobin appears 11-12, stable, continue to trend, continue supplementation. * Chronic systolic CHF: No recent echocardiogram in the system, last noted EF 35% from remote echo with catheterization 2004 with nonobstructive disease, continue judicious hydration given his history, continue aspirin, statin, cautiously losartan as noted, not on beta-lynn therapy with it listed in the allergy section but unclear reaction. * Alzheimer's disease with associated dementia, no behavioral disturbance history: Complicates presentation, maintain on fall precautions, continue patient home memantine and donepezil regimen, PT/OT/case management consultation for discharge planning. * Anxiety and depression: We will continue patient home paroxetine regimen. * Diabetes mellitus type II: Hold oral home regimen, ADA diet, accu checks w/ ISS.Hypertension: Continue home regimen including losartan cautiously with hold if renal function worsens as noted, PRN hydralazine. \ * Hyperlipidemia: Continue patient home statin therapy. * Gout: Continue patient home allopurinol regimen. * BPH: We will continue patient home finasteride, doxazosin home regimen. DVT prophylaxis: Lovenox. CODE status: Full code Disposition: to SNF pending insurance authorization. Charges/Coding Visit Charges Inpatient E&M: 68296 Subs Hosp L1
[2023-03-08 08:10] VITALS: BP 169/77; PULSE 58; RESP 18; TEMP 36.3; O2SAT 98
[2023-03-08] MEDS: Iron Polysaccharide Complex 150 MG CAPSULE PO (08:15)
[2023-03-08] MEDS: Calcium Carb/Vitamin D 1 TABLET Tablet PO ×3 (08:15→16:39)
[2023-03-08] MEDS: predniSONE 20 MG Tablet 40 MG PO (08:15)
[2023-03-08] MEDS: Allopurinol 300 MG Tablet PO (08:16)
[2023-03-08] MEDS: Enoxaparin 40 MG/0.4 ML Syringe SC (08:16)
[2023-03-08] MEDS: PARoxetine 10 MG Tablet PO (08:16)
[2023-03-08] MEDS: Aspirin 81 MG TAB.CHEW PO (08:16)
[2023-03-08] MEDS: Memantine Hydrochloride 10 MG Tablet PO ×2 (08:16→19:36)
[2023-03-08] MEDS: Losartan Potassium 50 MG Tablet PO (08:16)
[2023-03-08] MEDS: Finasteride 5 MG Tablet PO (08:16)
[2023-03-08] MEDS: Clotrimazole 1 APPLIC Tube TOPICAL (08:17)
--- NOTE | 2023-03-08 09:26 | CASEMGMT ---
Discharge Planning [facility] declined patient, no available beds. Susannah Solis
[2023-03-08 12:00] LABS: Bedside Glucose 127 mg/dL (74-106)
[2023-03-08 14:04] VITALS: BP 169/78; PULSE 61; RESP 18; TEMP 36.5; O2SAT 96
--- NOTE | 2023-03-08 14:09 | TREXTCAR_ITS ---
Diet Diet Order/Speech Therapy: 03/06/23 01:18 Diet: Consistent Carb - Calorie Controlled Food consistency:: Regular Liquid Consistency:: Regular/Thin How many daily calories?: 1800 calorie Wound(s) neck: Wound Type: Surgical Incision left lee: Wound Type: Abrasion Problem/Diagnosis (1) Generalized weakness: Status: Acute Code(s): R53.1 - Weakness Plan: Adult FTT with BL LE Weakness, Debility, no knee pain with right greater than left knee effusion noted: patient does appear to be dehydrated with mild renal insufficiency otherwise no severe electrolyte disturbances, TSH low, but fT4 WNLw PT/OT/case management consultation for discharge planning, maintain on fall precautions, will obtain BL knee plain films to be cautious, procalcitonin requested. (2) Effusion, right knee: Status: Acute Code(s): M25.461 - Effusion, right knee Plan: doubt septic arthritis nor gouty arthritis start prednisone burst. consider arthrocentesis if worse. Plan The patient is an 82 y/o M w/ PMHx: Alzheimer's disease, Hairy Cell Leukemia following w/ Dr. Lupe Olvera 1982, Chronic Systolic CHF, HTH, HLD Gout, Diabetes mellitus type II, BPH, Chronic anemia/iron deficiency anemia anxiety and Depression who presents to the [facility] ED on 03/06/23 with history of increasing fatigue, malaise with notable bilateral lower extremity weakness as well as bilateral knee pain reporting he did have recent unclear parathroid surgery but from description possible resection given inability to safely take care of himself and risk of fall prompted ED evaluation. Chronic conditions: * CKD stage III, unclear subtype: Admission BUN/creatinine 34/1.64, baseline creatinine function noted previously primarily 0.9-1.2, will continue judicious hydration, repeat function in a.m., if worsening hold nephrotoxic regimen and would consider FeNa/renal US. * Recent Parathyroid surgery, questionable parathyroidectomy: Admission calcium level is noted normal although ionized calcium has been requested but this is a send out, will attempt to obtain records. * hairy Cell Leukemia: Patient following gonzalo/ Dr. Lupe Olvera 1982 s/p splenectomy w/ relapse 1984 with Tx Pentastatin/ECOG protocol w/ remission achieved, encourage continued outpatient follow-up as previously arranged. * Chronic macrocytic anemia/iron deficiency anemia: Admission hemoglobin 11.7, MCV 98.9, baseline hemoglobin appears 11-12, stable, continue to trend, continue supplementation. * Chronic systolic CHF: No recent echocardiogram in the system, last noted EF 35% from remote echo with catheterization 2004 with nonobstructive disease, continue judicious hydration given his history, continue aspirin, statin, cautiously losartan as noted, not on beta-lynn therapy with it listed in the allergy section but unclear reaction. * Alzheimer's disease with associated dementia, no behavioral disturbance history: Complicates presentation, maintain on fall precautions, continue patient home memantine and donepezil regimen, PT/OT/case management consultation for discharge planning. * Anxiety and depression: We will continue patient home paroxetine regimen. * Diabetes mellitus type II: Hold oral home regimen, ADA diet, accu checks w/ ISS.Hypertension: Continue home regimen including losartan cautiously with hold if renal function worsens as noted, PRN hydralazine. \ * Hyperlipidemia: Continue patient home statin therapy. * Gout: Continue patient home allopurinol regimen. * BPH: We will continue patient home finasteride, doxazosin home regimen. DVT prophylaxis: Lovenox. CODE status: Full code Disposition: to SNF pending insurance authorization. Allergies/Procedures Done in Hospital Allergies gabapentin Allergy (Verified 03/05/23 19:16) tremors tremors metoprolol [From Toprol XL] Allergy (Verified 03/05/23 19:16) PT UNSURE OF REACTION ramipril [From Altace] Allergy (Verified 03/05/23 19:16) PT UNSURE OF REACTION Procedures: None Type of Care/Length of Stay Estimated LOS: Convalescent Care Less Than 30 days Type of Care Needed: Skilled Rehab Potential: Good Prognosis: Good Additional Orders/Day of Discharge Day of Discharge: 03/08/23 Discharge Plan Admission Admit Date/Time: 03/06/23 00:30 Primary Reason for Your Visit: debility. right knee effusion. Attending Provider: James Griffiths Primary Care Provider: Antony Botello Consulting Providers: Paty Morgna Discharge Orders/Prescriptions Prescriptions: New prednisone 20 mg Tablet 40 mg PO BREAKFAST 3 Days Qty: 0 0RF sennosides-docusate sodium [Stool Softener-Stimulant Laxat] 8.6-50 mg Tablet 2 tab PO BID PRN PRN (Reason: Constipation) Qty: 0 0RF Continued polysaccharide iron complex [Ferrex 150] 150 mg iron capsule 150 mg PO DAILY Qty: 90 3RF metformin 500 MG tablet 500 mg PO BIDCM Label Comments: DIABETES atorvastatin 10 MG tablet 10 mg PO QHS Label Comments: high cholesterol doxazosin 1 MG tablet 1 mg PO QHS Label Comments: heart allopurinol [Zyloprim] 300 MG tablet 300 mg PO DAILY paroxetine HCl 10 MG tablet 10 mg PO DAILY donepezil 5 MG tablet 10 mg PO QHS Label Comments: TAKE 1 TABLET BY MOUTH DAILY AT BEDTIME. memantine 5 mg tablet 10 mg PO BID acetaminophen 500 mg Tablet 500 mg PO Q6H PRN (Reason: Pain) finasteride 5 mg Tablet 5 mg PO DAILY albuterol sulfate 2.5 mg /3 mL (0.083 %) Solution For Nebulization 2.5 mg inhalation Q2H PRN PRN (Reason: SOB/Wheezing) Qty: 0 0RF losartan 25 mg tablet 50 mg PO DAILY Qty: 0 0RF Label Comments: take 1 tablet by mouth once daily Rx Instructions: Hold for SBP less than 120 mmHg calcium carbonate-vitamin D3 1 tab PO/SL TID Rx Instructions: 500mg/5mcg (200 unit) per tablet ibuprofen 200 mg Capsule 200 mg PO Q4H PRN (Reason: Pain) Referrals / Follow Up: Antony Botello MD [Primary Care Provider] - Within 2 Weeks Disposition Disposition (needs filled in before D/C Order can be placed): Shelter Facility
--- NOTE | 2023-03-08 14:13 | DS.PCM_ITS ---
Providers Date of Admission: 03/06/23 Primary Care Physician: Dr. Antony Botello MD Reason For Visit: ADULT FTT Diagnosis Discharge Diagnosis (1) Generalized weakness: Status: Acute Code(s): R53.1 - Weakness Plan: Adult FTT with BL LE Weakness, Debility, no knee pain with right greater than left knee effusion noted: patient does appear to be dehydrated with mild renal insufficiency otherwise no severe electrolyte disturbances, TSH low, but fT4 WNLw PT/OT/case management consultation for discharge planning, maintain on fall precautions, will obtain BL knee plain films to be cautious, procalcitonin requested. (2) Effusion, right knee: Status: Acute Code(s): M25.461 - Effusion, right knee Plan: doubt septic arthritis nor gouty arthritis start prednisone burst. consider arthrocentesis if worse. Plan The patient is an 82 y/o M w/ PMHx: Alzheimer's disease, Hairy Cell Leukemia following w/ Dr. Lupe Olvera 1982, Chronic Systolic CHF, HTH, HLD Gout, Diabetes mellitus type II, BPH, Chronic anemia/iron deficiency anemia anxiety and Depression who presents to the [facility] ED on 03/06/23 with history of increasing fatigue, malaise with notable bilateral lower extremity weakness as well as bilateral knee pain reporting he did have recent unclear parathroid surgery but from description possible resection given inability to safely take care of himself and risk of fall prompted ED evaluation. Chronic conditions: * CKD stage III, unclear subtype: Admission BUN/creatinine 34/1.64, baseline creatinine function noted previously primarily 0.9-1.2, will continue judicious hydration, repeat function in a.m., if worsening hold nephrotoxic regimen and would consider FeNa/renal US. * Recent Parathyroid surgery, questionable parathyroidectomy: Admission calcium level is noted normal although ionized calcium has been requested but this is a send out, will attempt to obtain records. * hairy Cell Leukemia: Patient following w/ Dr. Lupe Olvera 1982 s/p splenectomy w/ relapse 1984 with Tx Pentastatin/ECOG protocol w/ remission achieved, encourage continued outpatient follow-up as previously arranged. * Chronic macrocytic anemia/iron deficiency anemia: Admission hemoglobin 11.7, MCV 98.9, baseline hemoglobin appears 11-12, stable, continue to trend, continue supplementation. * Chronic systolic CHF: No recent echocardiogram in the system, last noted EF 35% from remote echo with catheterization 2004 with nonobstructive disease, continue judicious hydration given his history, continue aspirin, statin, cautiously losartan as noted, not on beta-lynn therapy with it listed in the allergy section but unclear reaction. * Alzheimer's disease with associated dementia, no behavioral disturbance history: Complicates presentation, maintain on fall precautions, continue patient home memantine and donepezil regimen, PT/OT/case management consultation for discharge planning. * Anxiety and depression: We will continue patient home paroxetine regimen. * Diabetes mellitus type II: Hold oral home regimen, ADA diet, accu checks w/ ISS.Hypertension: Continue home regimen including losartan cautiously with hold if renal function worsens as noted, PRN hydralazine. \ * Hyperlipidemia: Continue patient home statin therapy. * Gout: Continue patient home allopurinol regimen. * BPH: We will continue patient home finasteride, doxazosin home regimen. DVT prophylaxis: Lovenox. CODE status: Full code Disposition: to SNF pending insurance authorization. Medications at Discharge Home Medications atorvastatin 10 mg tablet 10 mg PO QHS CHOLESTEROL 11/20/15 doxazosin 1 mg tablet 1 mg PO QHS prostate 11/20/15 metformin 500 mg tablet 500 mg PO BIDCM DM 11/20/15 donepezil 5 mg tablet 10 mg PO QHS memory 11/28/17 paroxetine HCl 10 mg tablet 10 mg PO DAILY anxiety 11/28/17 allopurinol 300 mg tablet (Zyloprim) 300 mg PO DAILY GOUT 04/30/18 memantine 5 mg tablet 10 mg PO BID memory 05/26/21 acetaminophen 500 mg tablet 500 mg PO Q6H PRN Pain 05/28/21 finasteride 5 mg tablet 5 mg PO DAILY 07/01/21 albuterol sulfate 2.5 mg/3 mL (0.083 %) solution for nebulization 2.5 mg (3 mL) inhalation Q2H PRN PRN SOB/Wheezing #0 mL 07/14/21 losartan 25 mg tablet 50 mg PO DAILY heart #0 tabs 07/14/21 polysaccharide iron complex 150 mg iron capsule (Ferrex) 150 mg PO DAILY #90 caps 05/17/22 calcium carbonate-vitamin D3 1 tab PO/SL TID supplement 03/05/23 ibuprofen 200 mg capsule 200 mg PO Q4H PRN Pain 03/05/23 prednisone 20 mg tablet 40 mg PO BREAKFAST 3 days #0 tabs 03/08/23 sennosides 8.6 mg-docusate sodium 50 mg tablet (Stool Softener-Stimulant Laxative) 2 tab PO BID PRN PRN Constipation #0 tabs 03/08/23 Hospital Course Operations None Procedures None Summary of Care Provided Minutes Spent on Discharge: 28 Weight / BMI Weight Weight: 60.4 kg Body Mass Index (BMI) 22.7 ABG / Lab / Microbiology Data Result Diagrams: 03/06/23 06:05 03/06/23 06:05 Laboratory: Laboratory Results - last 24 hr 03/05/23 22:42: Ionized Calcium 4.9 03/07/23 16:17: POC Glucose 140 H 03/07/23 20:43: POC Glucose 274 H 03/08/23 06:29: POC Glucose 108 H 03/08/23 11:37: POC Glucose 127 H Meaningful Use Info Meaningful Use Diagnoses (Choose all that apply): None applicable Discharge Plan Admission Admit Date/Time: 03/06/23 00:30 Primary Reason for Your Visit: debility. right knee effusion. Attending Provider: James Griffiths Primary Care Provider: Antony Botello Consulting Providers: Paty Morgan Discharge Orders/Prescriptions Prescriptions: New prednisone 20 mg Tablet 40 mg PO BREAKFAST 3 Days Qty: 0 0RF sennosides-docusate sodium [Stool Softener-Stimulant Laxat] 8.6-50 mg Tablet 2 tab PO BID PRN PRN (Reason: Constipation) Qty: 0 0RF Continued polysaccharide iron complex [Ferrex 150] 150 mg iron capsule 150 mg PO DAILY Qty: 90 3RF metformin 500 MG tablet 500 mg PO BIDCM Label Comments: DIABETES atorvastatin 10 MG tablet 10 mg PO QHS Label Comments: high cholesterol doxazosin 1 MG tablet 1 mg PO QHS Label Comments: heart allopurinol [Zyloprim] 300 MG tablet 300 mg PO DAILY paroxetine HCl 10 MG tablet 10 mg PO DAILY donepezil 5 MG tablet 10 mg PO QHS Label Comments: TAKE 1 TABLET BY MOUTH DAILY AT BEDTIME. memantine 5 mg tablet 10 mg PO BID acetaminophen 500 mg Tablet 500 mg PO Q6H PRN (Reason: Pain) finasteride 5 mg Tablet 5 mg PO DAILY albuterol sulfate 2.5 mg /3 mL (0.083 %) Solution For Nebulization 2.5 mg inhalation Q2H PRN PRN (Reason: SOB/Wheezing) Qty: 0 0RF losartan 25 mg tablet 50 mg PO DAILY Qty: 0 0RF Label Comments: take 1 tablet by mouth once daily Rx Instructions: Hold for SBP less than 120 mmHg calcium carbonate-vitamin D3 1 tab PO/SL TID Rx Instructions: 500mg/5mcg (200 unit) per tablet ibuprofen 200 mg Capsule 200 mg PO Q4H PRN (Reason: Pain) Referrals / Follow Up: Antony Botello MD [Primary Care Provider] - Within 2 Weeks Disposition Disposition (needs filled in before D/C Order can be placed): [facility] Facility Charges/Coding Visit Charges Inpatient E&M: 12845 Disch Hosp
--- NOTE | 2023-03-08 14:50 | CASEMGMT ---
Social Work Precert has been obtained. Physician updated and pt is ready for discharge today. Discharge orders and covids results sent to [facility] via [facility]. Transportation arranged with [facility] ambulance for 6:30 pickup via cot. SW met with pt and his Annemarie and they are agreeable to discharge plan as stated above. [facility] and bedside nurse notified of discharge time. Disposition: [facility], skilled level of care. ZHANE Campos
--- NOTE | 2023-03-08 14:54 | NURSING ---
attempted to give repor to [facility]- per legal secretary receptionist, nurse is currently in with pt and not available for report. Phone number given to [facility] and requested [facility] phone back to facility when nurse is available to give report. [employer] Paster requests [facility] phone back around [phone] to give report if have not heard from [place] [facility]
[2023-03-08] MEDS: metFORMIN HCl 500 MG Tablet PO (16:39)
--- NOTE | 2023-03-08 18:15 | NURSING ---
[facility] aware of delay of transport time.
--- NOTE | 2023-03-08 19:21 | NURSING ---
phoned pt spouse listed in demographics to update on time of transport change-no answer, and states voice mail box is full.
--- NOTE | 2023-03-08 19:22 | NURSING ---
phoned son listed in demographics as well, no answer.
[2023-03-08] MEDS: Donepezil HCl 10 MG Tablet PO (19:36)
[2023-03-08] MEDS: Atorvastatin Calcium 10 MG Tablet PO (19:37)
[2023-03-08] MEDS: Doxazosin 1 MG Tablet PO (19:37)
[2023-03-08 20:06] LABS: Bedside Glucose 136 mg/dL (74-106)
[2023-03-08 20:45] VITALS: BP 155/79; PULSE 62; RESP 17; TEMP 37; O2SAT 97
--- NOTE | 2023-03-08 20:58 | NURSING ---
pt very angry about squad not here to take him to [facility]cu at [place]. Pt contacted and wants her to take him. Pt said i am leaving and sueing the [facility]. This nurse contacted the and she was on her way here. Pt given packet and wc to er for to take. [facility]cu in [place] called and informed will be taking him
== END 2023-03-08 21:00 | disposition skilled nursing facility (03) ==
LOC: ED 03-06 00:29 → MS3 03-06 01:01
PROVIDERS: Admitting Provider Family Medicine; Emergency Provider Emergency Medicine; PCP Family Medicine
DX: I13.0 Hypertensive heart and chronic kidney disease with heart failure and stage 1 through stage 4 chronic kidney disease, or unspecified chronic kidney disease (principal); G30.9 Alzheimer's disease, unspecified; F02.80 Dementia in other diseases classified elsewhere, unspecified severity, without behavioral disturbance, psychotic disturbance, mood disturbance, and anxiety; I50.22 Chronic systolic (congestive) heart failure; E11.22 Type 2 diabetes mellitus with diabetic chronic kidney disease; N18.30 Chronic kidney disease, stage 3 unspecified; F32.A Depression, unspecified; R53.81 Other malaise; Z87.891 Personal history of nicotine dependence; M25.461 Effusion, right knee; E78.5 Hyperlipidemia, unspecified; R53.1 Weakness; Z86.16 Personal history of COVID-19; Z79.84 Long term (current) use of oral hypoglycemic drugs; M10.9 Gout, unspecified; N40.1 Benign prostatic hyperplasia with lower urinary tract symptoms; Z79.899 Other long term (current) drug therapy; G31.84 Mild cognitive impairment of uncertain or unknown etiology; F41.9 Anxiety disorder, unspecified; Z85.6 Personal history of leukemia; R35.0 Frequency of micturition; R62.7 Adult failure to thrive; D50.9 Iron deficiency anemia, unspecified; M79.604 Pain in right leg
CPT/HCPCS: 36415; 71045; 73560; 80048; 80053; 81001; 82330; 82962; 83735; 84100; 84145; 84439; 84443; 85025; 87426; 87635; 93970; 94668; 96360; 96361; 96372; 97162; 97166; 97535; 99221; 99285; J7030; A4216; G0378; U0003; U0005

== ENCOUNTER 2025-04-23 20:21 | Inpatient (IN) | payer MEDICARE, SELFPAY ==
[2025-04-23] VITALS (8 sets, daily range): BP systolic 75–159; BP diastolic 35–94; PULSE 50–58; RESP 14–16; TEMP 36.6; O2SAT 86–97; BMI 24.9
--- OUTSIDE RECORDS SUMMARY | 2025-04-23 20:58 | XMS RPT_ITS | CCD ---
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 Antony Espinoza Primary Care Provider Dr. Christiano Eastman Emergency Provider Dr. Paty Morgan Admit Provider Dr. Paty Morgan Other Provider Dr. James Griffiths Attending Provider Dr. James Griffiths Other Provider Antony Espinoza MD Primary Care Provider Rock TOOL HARDENER.Meka SAHU Unavailable Antony Espinoza MD Unavailable [phone] Harinder Isaac RN Unavailable [phone] Antony Espinoza MD Primary Care Provider Dedrick Andrade Attending Unavailable Antony Espinoza Primary Care Unavailable Antony Espinoza Referring Unavailable Dedrick Andrade Attending Unavailable Antony Espinoza Primary Care Unavailable Antony Espinoza Referring Unavailable Dedrick Andrade Attending Unavailable Antony Espinoza Primary Care Unavailable Wilfred Vázquez III Referring Unavailable Chapin TOOL HARDENER.Meka SAHU Unavailable Carlie TOOL HARDENER.SHIRT IRONER, Alex BOLDEN Primary Care Provider SHAJI GAONA Attending UnavailANTONY Walker Primary Care Unavailable SHAJI GAONA Attending UnavailANTONY Walker Primary Care Unavailable Haagen TOOL HARDENER.Bisi SAHU Unavailable Suppan TOOL HARDENER.Selena SAHU Unavailable Suppan TOOL HARDENER.ADELINAAleaSelena A Unavailable [phone] ANTONY ESPINOZA Attending Unavailable SELF Referring Unavailable ANTONY ESPINOZA Primary Care Unavailable TESTRAKE, LORI Attending Unavailable TESTRAKE, LORI Referring Unavailable ANTONY ESPINOZA Primary Care Unavailable TESTRAKE, LORI Attending Unavailable TESTRAKE, LORI Referring Unavailable ANTONY ESPINOZA Primary Care Unavailable TESTRAKE, LORI Attending Unavailable ANTONY ESPINOZA Primary Care Unavailable TESTJACKIE, LORI Attending Unavailable ANTONY ESPINOZA Primary Care Unavailable ANOTNY ESPINOZA Referring Unavailable ANTONY ESPINOZA Primary Care Unavailable Allergies Allergy Classification Reported Allergen(s) Allergy Type Date of Onset Reaction(s) Facility (20 sources) gabapentin; Translations: [GABAPENTIN] Drug Allergy 3 Other: See Comments [facility] (20 sources) Metoprolol; Translations: [METOPROLOL SUCCINATE] Drug Allergy 5 [facility] (20 sources) Ramipril; Translations: [RAMIPRIL] Drug Allergy 5 PT UNSURE OF REACTION [facility] (2 sources) Metoprolol Drug Allergy 3 PT UNSURE OF REACTION [facility] (1 source) gabapentin Drug Allergy 4 [facility] (1 source) Metoprolol Drug Allergy 4 [facility] (1 source) Ramipril Drug Allergy 4 [facility] Medications Current Medications Medication Drug Class(es) Dates Sig (Normalized) Sig (Original) acetaminophen 500 mg oral tablet (20 sources) Start: 05-28-2021 take 1 tablet by mouth every six hours as needed acetaminophen (TYLENOL EXTRA STRENGTH) 500 mg tablet Take 1 tablet by mouth every 6 hours as needed for pain. 02/27/2023 Active Start: 08-22-2018 End: 08-22-2018 take 1000 mg by mouth every eight hours Acetaminophen Discontinued 1000 MG PO EVERY 8 HOURS August 22, 2018 12:00am August 22, 2018 12:14pm Start: 11-23-2015 End: 04-18-2017 take 2 tablets by mouth every six hours as needed Acetaminophen (Tylenol) 325 MG tablet Discontinued 650 MG PO EVERY 6 HOURS NEEDED November 23, 2015 1:00am April 18, 2017 3:14pm Comment on above: Take 1 tablet by sunny th every 6 hours as needed for pain. albuterol 0.83 mg/ml inhalation solution (4 sources) beta2-Adrenergic Agonist Start: 07-14-2021 take 2.5 mg by inhalation every two hours as needed Albuterol Sulfate Active 2.5 MG INHALATION EVERY 2 HOURS NEEDED July 14, 2021 12:00am Start: 11-23-2015 End: 04-18-2017 take 2.5 mg by inhalation every two hours as needed Albuterol Sulfate Discontinued 2.5 MG INHALATION EVERY 2 HOURS NEEDED November 23, 2015 1:00am April 18, 2017 3:14pm allopurinol 300 mg oral tablet (20 sources) Xanthine Oxidase Inhibitor Start: 04-30-2018 End: 03-24-2024 take 1 tablet by mouth once daily allopurinol (ZYLOPRIM) 300 mg tablet Indications: Gout, unspecified cause, unspecified chronicity, unspecified site TAKE 1 TABLET BY MOUTH ONCE DAILY. FOR GOUT. 90 tablet 3 03/24/2024 Active Comment on above: TAKE 1 TABLET BY SUNNY TH ONCE DAILY. FOR GOUT. atorvastatin 10 mg oral tablet (20 sources) HMG-CoA Reductase Inhibitor Start: 11-06-2023 End: 01-29-2025 take 1 tablet by mouth once daily atorvastatin (LIPITOR) 10 mg tablet Indications: Hyperlipidemia LDL goal Take 1 tablet by mouth once daily. 90 tablet 3 01/29/2025 Active Start: 11-20-2015 End: 09-11-2022 take 1 tablet by mouth once daily atorvastatin (LIPITOR) 10 mg tablet Indications: Hyperlipidemia LDL goal Take 1 tablet by mouth once daily. 90 tablet 3 07/07/2020 12/12/2021 Discontinued Comment on above: Take 1 tablet by sunny th once daily. betamethasone 0.5 mg/ml / clotrimazole 10 mg/ml topical cream (2 sources) Azole Antifungal, Corticosteroid Start: 02-20-20 End: 03-21-20 clotrimazole-bet amethasone (LOTRISONE) cream Apply to affected area two times a day. APPLY TO AFFECTED AREA 45 g 5 02/20/2024 03/21/2024 Active Comment on above: Apply to affected ar ea two times a day. APPLY TO AFFECTED AREA Calcium Carbonate / vitamin D3 (2 sources) Start: 03-05-20 take 1 tablet by mouth three times daily calcium carbonate-vitami n D3 Active 1 TABLET SL/PO THREE TIMES A DAY March 05, 2023 12:00am 500mg/5mcg (200 unit) per tablet cholecalciferol 0.025 mg oral capsule (20 sources) Vitamin D Start: 03-19-20 take 1 capsule by mouth once daily Cholecalciferol, Vitamin D3, 25 mcg (1,000 unit) cap Take 1,000 Units by mouth once daily. 03/19/2023 Active Start: 03-19-2023 Cholecalcifero l, Vitamin D3, (VITAMIN D) 25 mcg (1,000 unit) cap Take 1,000 Units by mouth once daily. 0 03/19/2023 Active Comment on above: Take 1,000 Units by mouth once daily. docusate sodium 50 mg / sennosides, prison 8.6 mg oral tablet (5 sources) Start: 03-08-2023 take 2 tablets by mouth twice daily as needed Sennosides-Docusa te Sodium (Stool Softener-Stimulan t Laxat) 8.6-50 mg Tablet Active 2 TABLET PO TWICE DAILY NEEDED 0 March 08, 2023 12:00am Start: 08-22-2018 End: 08-28-2018 Sennosides-Docusate Sodium ( Stool Softener-Stimulant Laxat) 1 TABLET tablet Discontinued 2 TABLET PO TWICE A DAY August 22, 2018 12:14pm August 28, 2018 12:04pm donepezil hydrochloride 10 mg oral tablet (20 sources) Start: 09-17-2023 End: 01-29-2025 take 1 tablet by mouth once daily at bedtime donepezil (ARICEPT) 10 mg tablet Take 1 tablet by mouth daily at bedtime. 90 tablet 01/29/2025 Active Start: 03-20-2021 End: 08-15-2022 take 1 tablet by mouth once daily at bedtime donepezil (ARICEPT) 10 mg tablet Take 1 tablet by mouth daily at bedtime. 90 tablet 3 03/20/2021 08/15/2022 Discontinued Start: 11-28-2017 take 10 mg by mouth at bedtime Donepezil Active 10 MG PO AT BEDTIME November 28, 2017 1:00am Comment on above: Take 1 tablet by sunny th daily at bedtime. 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 90 tablet 3 03/08/2025 Active Start: 12-31-2022 End: 03-31-2023 take 1 tablet by mouth once daily at bedtime doxazosin (CARDURA) 1 mg tablet Take 1 tablet by mouth daily at bedtime. 30 tablet 2 12/31/2022 03/22/2023 Discontinued Start: 11-20-2015 End: 12-11-2022 take 1 tablet by mouth once daily at bedtime doxazosin (CARDURA) 1 mg tablet Take 1 tablet by mouth daily at bedtime. 30 tablet 2 09/12/2022 Active Comment on above: Take 1 tablet by sunny th daily at bedtime. losartan potassium 50 mg oral tablet (20 sources) Angiotensin 2 Receptor Lynn Start: 01-25-2025 End: 07-24-2025 take 1 tablet by mouth once daily losartan (COZAAR) 50 mg tablet Take 1 tablet by mouth once daily. 90 tablet 1 01/25/2025 07/24/2025 Active Start: 12-03-2023 End: 01-22-2025 take 1 tablet by mouth once daily losartan (COZAAR) 50 mg tablet Take 1 tablet by mouth once daily. 90 tablet 1 06/30/2024 01/22/2025 Discontinued Start: 05-29-2023 End: 11-25-2023 take 1 tablet by mouth once daily losartan (COZAAR) 50 mg tablet Take 1 tablet by mouth once daily. 90 tablet 1 05/29/2023 11/25/2023 Active Start: 10-17-2021 End: 03-25-2023 take 1 tablet by mouth once daily losartan (COZAAR) 50 mg tablet Take 1 tablet by mouth once daily. 90 tablet 1 07/26/2022 Active Start: 07-14-2021 Losartan Activ e 50 MG PO DAILY 0 July 14, 2021 12:03pm Hold for SBP less than 120 mmHg Start: 01-09-2021 End: 10-17-2021 take 25 mg by mouth once daily Losartan Discontinued 2 5 MG PO DAILY May 26, 2021 12:00am July 14, 2021 12:03pm Comment on above: Take 1 tablet by sunny th once daily. Take 50 mg by mouth once daily. memantine hydrochloride 10 mg oral tablet (20 sources) B-nymwap-D-aspartate Receptor Antagonist Start: 3 End: take 1 tablet by mouth twice daily memantine (NAMENDA) 10 mg tablet Take 1 tablet by mouth two times a day. 180 tablet 2 01/29/2025 Active Start: 02-21-2023 End: 08-01-2023 take 1 tablet by mouth twice daily memantine (NAMENDA) 10 mg tablet Take 1 tablet by mouth twice daily. 90 tablet 3 08/01/2023 Active Start: 11-15-2022 End: 02-21-2023 take 2 tablets by mouth in the morning, then take 1 tablet by mouth in the evening, then take 2 tablets by mouth twice daily memantine (NAMENDA) 5 mg tablet Take 2 tabs in am and one in pm po for one week and then two tabs bid after. 120 tablet 1 11/15/2022 02/21/2023 Discontinued Start: 06-30-2021 End: 03-22-2022 take 1 tablet by mouth twice daily memantine (NAMENDA) 5 mg tablet Take 1 tablet by mouth twice daily. 60 tablet 5 06/30/2021 03/22/2022 Discontinued Start: 05-26-2021 take 10 mg by mouth twice shai y Memantine Active 10 MG PO TWICE A DAY May 26, 2021 12:00am Comment on above: Take 1 tablet by sunny th twice daily. take 1 tablet by sunny th twice a day Take 2 tabs in am an d one in pm po for one week and then two tabs bid after. Take 1 tablet by sunny th two times a day. PARoxetine hydrochloride 10 mg oral tablet (20 sources) Serotonin Reuptake Inhibitor Start: 8 End: take 1 tablet by mouth once daily PARoxetine (PAXIL) 10 mg tablet Indications: Anxiety state Take 1 tablet by mouth once daily. 90 tablet 3 03/24/2024 Active Start: 11-20-2015 End: 04-18-2017 take 20 mg by mouth once daily Paroxetine Hcl Disconti nued 20 MG PO DAILY November 20, 2015 1:00am April 18, 2017 3:16pm Comment on above: Take 1 tablet by sunny once daily. perflutren lipid microspheres 1.3 mL in NaCl (PF) 0.9% 10 mL injection (DEFINITY) (20 sources) Start: 10-30-2021 End: 01-29-2023 perflutren lipid microspheres 1.3 mL in NaCl (PF) 0.9% 10 mL injection (DEFINITY) Start: 09-19-2020 End: 12-19-2021 perflutren lipid microsphere s 1.3 mL in NaCl (PF) 0.9% 10 mL injection (DEFINITY) Start: 09-19-2020 End: 12-19-2021 perflutren lipid microsphere s 1.3 mL in NaCl (PF) 0.9% 10 mL injection (DEFINITY) phenylephrine hydrochloride 25 mg/ml ophthalmic solution (1 source) alpha-1 Adrenergic Agonist Start: 01-01-2024 End: 01-01-2024 PHENYLephrine 2.5 % 1 Drop (AK-DILATE, MAUREEN-SYNEPHRINE) polysaccharide iron complex 150 mg oral capsule (20 sources) Start: 11-23-2022 take 1 capsule by mouth once daily IFEREX 150 150 mg iron capsule Take 150 mg by mouth once daily. 11/23/2022 Active Start: 05-15-2022 End: 05-17-2022 Polysaccharide Iron Complex (Ferrex 150) 150 mg iron capsule Active 150 MG PO DAILY May 17, 2022 12:00am Comment on above: Take 150 mg by mouth once daily. predniSONE 20 mg oral tablet (5 sources) Start: 03-08-2023 take 40 mg by mouth at breakfast Prednisone Active 40 MG PO WITH BREAKFAST 0 March 08, 2023 12:00am Start: 12-01-2015 End: 04-18-2017 take 10 mg by mouth once daily Prednisone Discontinued 10 MG PO DAILY@0800 December 01, 2015 6:30pm April 18, 2017 3:17pm proparacaine hydrochloride 5 mg/ml ophthalmic solution (1 source) Local Anesthetic Start: 01-01-2024 End: 01-01-2024 proparacaine 0.5 % 1 Drop (ALCAINE) tropicamide 10 mg/ml ophthalmic solution (1 source) Anticholinergic Start: 01-01-2024 End: 01-01-2024 tropicamide 1 % 1 Drop (MYDRIACYL) Completed/Discontinued Medications Medication Drug Class(es) Dates Sig (Normalized) Sig (Original) acetaminophen 325 mg / HYDROcodone bitartrate 5 mg oral tablet (4 sources) Opioid Agonist Start: 6 End: 6 take 1 tablet by mouth every four hours as needed Hydrocodone-Acetamino phen Discontinued 1 - 2 TABLET PO EVERY 4 HOURS NEEDED November 23, 2015 12:17pm December 01, 2015 8:43am calcium carbonate 500 mg chewable tablet (20 sources) Start: 3 End: 4 take 500 mg by mouth every hour as needed calcium carbonate (TUMS) 500 mg chew Take 1 tablet by mouth every hour as needed. 02/27/2023 11/13/2024 Discontinued Comment on above: Take 1 tablet by sunny th every hour as needed. calcium carbonate 1250 mg / cholecalciferol 200 unt oral tablet (20 sources) Vitamin D Start: 3 End: 4 take 1 tablet by mouth three times daily at mealtime blayzjc-fijiceyea-stx torres D3 (CALCIUM 500+D) 500 mg-5 mcg (200 unit) per tablet Take 1 tablet by mouth three times daily with meals. 02/27/2023 11/13/2024 Discontinued Comment on above: Take 1 tablet by sunny th three times daily with meals. diazePAM 5 mg oral tablet (2 sources) Benzodiazepine Start: 6 End: 6 take 5 mg by mouth twice daily as needed Diazepam Discontinued 5 MG PO TWICE DAILY NEEDED November 21, 2015 1:00am December 01, 2015 8:43am ergocalciferol 1.25 mg oral capsule (2 sources) Provitamin D2 Compound Start: 8 End: 8 take 1 capsule by mouth every week Ergocalciferol (Vitamin D2) (Vitamin D2) 50,000 UNIT capsule Discontinued 26956 UNIT PO Q7D@1000 August 22, 2018 12:00am August 22, 2018 12:14pm Continue weekly dose x 6-8 weeks and then transition to oral regimen. finasteride 5 mg oral tablet (20 sources) 5-alpha Reductase Inhibitor Start: 1 End: 4 take 1 tablet by mouth once daily finasteride (PROSCAR) 5 mg tablet Take 1 tablet by mouth once daily. 90 tablet 3 11/23/2022 06/30/2024 Discontinued Comment on above: [facility] 12 hr guaiFENesin 1200 mg extended release oral tablet (4 sources) Start: 6 End: 7 take 1 tablet by mouth twice daily Guaifenesin (Mucus Relief Er) 1,200 MG tablet Discontinued 1200 MG PO TWICE A DAY December 01, 2015 8:44am April 18, 2017 3:17pm ibuprofen 200 mg oral capsule (4 sources) Nonsteroidal Anti-inflammatory Drug Start: 3 take 1 capsule by mouth every four hours as needed Ibuprofen 200 mg cap Take 1 capsule by mouth every 4 hours as needed for pain (for pain). 0 02/27/2023 Suspended Comment on above: Take 1 capsule by mo [facility] every 4 hours as needed for pain (for pain). 3 ml insulin aspart, human 100 unt/ml pen injector (2 sources) Insulin Analog Start: 6 End: 6 Insulin Aspart U-100 (Novolog Flexpen U-100 Insulin) 100 UNITS/ML Flexpen Discontinued 0 UNITS SC BEFORE MEALS AND AT BEDTIME November 23, 2015 1:00am December 01, 2015 8:44am 3 ml insulin lispro 100 unt/ml pen injector (4 sources) Insulin Analog Start: 8 End: 8 Insulin Lispro (Humalog Kwikpen Insulin) 100 UNIT/ML Insuln.Pen Discontinued 0 UNIT SQ THREE TIMES DAILY BEFORE MEALS August 22, 2018 12:14pm August 28, 2018 12:04pm levoFLOXacin 500 mg oral tablet (4 sources) Quinolone Antimicrobial Start: 6 End: 6 take 1 dose by mouth once daily in the morning Levofloxacin Discontinued 500 MG PO DAILY November 25, 2015 8:19am December 01, 2015 8:43am Next dose due 11/25/14, will be given 11/24/14 AM dose prior to SNF transition lidocaine hydrochloride 0.02 mg/mg topical gel (1 source) Antiarrhythmic, Amide Local Anesthetic Start: 3 End: 3 lidocaine urojet 2 % 6 mL topical gel (GLYDO) meloxicam 7.5 mg oral tablet (2 sources) Nonsteroidal Anti-inflammatory Drug Start: 8 End: 1 take 7.5 mg by mouth once daily Meloxicam Discontinued 7.5 MG PO DAILY November 28, 2017 1:00am July 14, 2021 12:00pm metFORMIN hydrochloride 500 mg oral tablet (20 sources) Biguanide Start: 6 End: 4 take 1 tablet by mouth twice daily at mealtime metFORMIN (GLUCOPHAGE) 500 mg tablet Indications: Controlled type 2 diabetes mellitus with microalbuminuria, without long-term current use of insulin (HCC) (HCC) Take 1 tablet by mouth twice daily with meals. 180 tablet 3 07/07/2020 10/04/2021 Discontinued Comment on above: Take 1 tablet by sunny twice daily with meals. methylPREDNISolone 4 mg oral tablet (2 sources) Corticosteroid Start: 6 End: 6 Methylprednisolone Discontinued 4 MG PO DIRECTED November 25, 2015 1:00am December 01, 2015 8:44am Continue medrol dose pack, 1st dose given 11/25/14 prior to TCU transition. naproxen sodium 220 mg oral tablet (20 sources) Nonsteroidal Anti-inflammatory Drug Start: 3 End: 4 take 1 tablet by mouth twice daily at mealtime as needed for pain naproxen sodium (ANAPROX) 220 mg tablet Take 220 mg by mouth two times a day with meals. as needed for pain 0 03/19/2023 01/20/2024 Discontinued (Clinical Decision) Comment on above: Take 220 mg by mouth twice daily with meals. as needed for pain Take 220 mg by mouth two times a day with meals. as needed for pain oxyCODONE hydrochloride 5 mg oral tablet (4 sources) Opioid Agonist Start: 8 End: 8 take 5 mg by mouth every four hours as needed Oxycodone Discontinued 5 MG PO EVERY 4 HOURS NEEDED 30 7 August 28, 2018 12:00am September 04, 2018 12:11am rivaroxaban 10 mg oral tablet (4 sources) Factor Xa Inhibitor Start: 8 End: 8 take 1 tablet by mouth once daily Rivaroxaban (Xarelto) 10 MG tablet Discontinued 10 MG PO DAILY@0600 August 22, 2018 12:14pm August 28, 2018 12:05pm 125 ml sodium chloride 9 mg/ml prefilled syringe (20 sources) Start: 0 End: 3 sodium chloride 0.9 % (flush) 10 mL (BD POSIFLUSH) sulfamethoxazole 800 mg / trimethoprim 160 mg oral tablet (20 sources) Dihydrofolate Reductase Inhibitor Antibacterial, Sulfonamide Antimicrobial Start: 3 End: 4 take 1 tablet by mouth twice daily sulfamethoxazole-trim ethoprim (BACTRIM DS) 800-160 mg per tablet Indications: bacterial urinary tract infection Take 1 tablet by mouth twice daily. 28 tablet 05/15/2023 11/13/2024 Discontinued Start: 2023 End: 2023 sulfamethoxazole-trimethopri m 800-160 mg 1 tablet (BACTRIM DS) Comment on above: Take 1 tablet by sunny th twice daily. tamsulosin hydrochloride 0.4 mg oral capsule (5 sources) alpha-Adrenergic Lynn Start: 1 End: 1 take 1 capsule by mouth once daily at bedtime tamsulosin (FLOMAX) 0.4 mg Indications: Benign prostatic hyperplasia with urinary obstruction Take 1 capsule by mouth daily at bedtime. 30 capsule 5 06/30/2021 11/06/2021 Discontinued Start: 08-22-2018 End: 08-28-2018 take 0.4 mg by mouth once daily Tamsulosin Discontinued 0.4 MG PO DAILY@1730 August 22, 2018 12:14pm August 28, 2018 12:04pm Problems Active Problems Problem Classification Problem Date Documented Date Episodic/Chronic Acquired foot deformities (20 sources) Hammer toe; Translations: [Other hammer toe(s) (acquired), unspecified foot] Onset: 09-01-20 10 09-01-2010 Chronic Acute and unspecified renal failure (3 sources) Injury of kidney; Translations: [Acute kidney failure, unspecified] 08-22-2018 Episodic Anxiety disorders (20 sources) Anxiety state; Translations: [Generalized anxiety disorder] Onset: 12-06-19 09 Chronic Blindness and vision defects (1 source) Amblyopia of right eye; Translations: [Unspecified amblyopia, right eye] 01-01-2024 Episodic Cataract (2 sources) After-cataract of left eye; Translations: [Other secondary cataract, left eye] 01-01-2024 Chronic Chronic kidney disease (1 source) Chronic kidney disease stage 3; Translations: [Stage 3 chronic kidney disease, unspecified whether stage 3a or 3b CKD (HCC)] 11-16-2024 Chronic Congestive heart failure; nonhypertensive (20 sources) Chronic systolic heart failure; Translations: [Chronic systolic (congestive) heart failure] Onset: 12-09-19 24 05-07-2019 Chronic Coronary atherosclerosis and other heart disease (20 sources) Coronary atherosclerosis; Translations: [Atherosclerotic heart disease of [place] coronary artery without angina pectoris] Onset: 10-18-20 09 08-30-2016 Chronic Deficiency and other anemia (3 sources) Anemia; Translations: [Anemia, unspecified] Episodic Deficiency and other anemia (2 sources) Anemia, unspecified; Translations: [Anemia, unspecified] Onset: 05-14-20 23 Episodic Diabetes mellitus with complications (20 sources) Type 2 diabetes mellitus; Translations: [Type 2 diabetes mellitus with other diabetic kidney complication] Onset: 07-24-20 16 2018 Chronic Diabetes mellitus without complication (2 sources) Diabetes mellitus; Translations: [Type 2 diabetes mellitus without complications] 05-07-2019 Chronic Disorders of lipid metabolism (20 sources) Hyperlipidemia; Translations: [Hyperlipidemia, unspecified] Onset: 09-13-20 15 09-13-2015 Chronic E Codes: Fall (4 sources) Accidental fall ; Translations: [Unspecified fall, initial encounter] 05-26-2021 Episodic Essential hypertension (20 sources) Essential hypertension; Translations: [Essential (primary) hypertension] Onset: 09-13-20 06 10-31-2020 Chronic Fracture of neck of femur (hip) (2 sources) Closed fracture of hip; Translations: [Fracture of unspecified part of neck of right femur, initial encounter for closed fracture] 08-22-2018 Episodic Gout and other crystal arthropathies (20 sources) Gout; Translations: [Gout, unspecified] Onset: 08-25-20 12 08-25-2012 Chronic Hyperplasia of prostate (20 sources) Benign prostatic hypertrophy with outflow obstruction; Translations: [Benign prostatic hyperplasia with lower urinary tract symptoms] Onset: 01-06-20 13 04-06-2019 Chronic Immunizations and screening for infectious disease (2 sources) Patient encounter status; Translations: [Encounter for immunization] 11-13-2024 Episodic Leukemias (20 sources) 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; 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] Onset: 09-13-20 06 09-13-2015 Chronic Leukemias (2 sources) Leukemias 08-22-2018 Malaise and fatigue (7 sources) Asthenia; Translations: [Other malaise] 06-03-2021 Episodic Mood disorders (2 sources) Depressive disorder; Translations: [Depression] 05-07-2019 Chronic Mycoses (8 sources) Onychomycosis; Translations: [Tinea unguium] Onset: 04-09-20 Episodic Noninfectious gastroenteritis (2 sources) Gastroenteritis; Translations: [Noninfective gastroenteritis and colitis, unspecified] 06-03-2021 Episodic Nutritional deficiencies (2 sources) Vitamin D deficiency; Translations: [Vitamin D deficiency, unspecified] 08-22-2018 Chronic Occlusion or stenosis of precerebral arteries (20 sources) Arteriosclerosis of carotid artery; Translations: [Occlusion and stenosis of bilateral carotid arteries] Onset: 10-18-20 09 08-30-2016 Chronic Osteoarthritis (1 source) Bilateral osteoarthritis of knees; Translations: [Bilateral primary osteoarthritis of knee] Chronic Other and unspecified benign neoplasm (2 sources) Benign neoplasm of soft tissue; Translations: [Melanocytic nevi, unspecified] Episodic Other connective tissue disease (7 sources) Pain of toe of left foot; Translations: [Pain in left toe(s)] Episodic Other connective tissue disease (7 sources) Pain of toe of right foot; Translations: [Pain in right toe(s)] Episodic Other connective tissue disease (2 sources) Tendinitis; Translations: [Enthesopathy, unspecified] 08-22-2018 Episodic Other connective tissue disease (1 source) Pain in left toe(s); Translations: [Pain in toe of left foot] Onset: 04-09-20 Episodic Other connective tissue disease (1 source) Pain in right toe(s); Translations: [Pain in toe of right foot] Onset: 04-09-20 25 Episodic Other diseases of kidney and ureters (1 source) Renal impairment; Translations: [Disorder of kidney and ureter, unspecified] Episodic Other diseases of kidney and ureters (2 sources) Renal insufficiency; Translations: [Disorder of kidney and ureter, unspecified] 05-26-2021 Episodic Other endocrine disorders (6 sources) Hyperparathyroidism; Translations: [Hyperparathyroidism, unspecified] Chronic Other endocrine disorders (2 sources) Primary hyperparathyroidism; Translations: [Primary hyperparathyroidism] Chronic Other endocrine disorders (1 source) Hyperparathyroidism, unspecified; Translations: [Hyperparathyroidism (HCC)] Onset: 02-28-20 Chronic Other hereditary and degenerative nervous system conditions (20 sources) Mild cognitive impairment, so stated; Translations: [Mild cognitive impairment, so stated] Onset: 09-13-20 15 09-13-2015 Chronic Other nervous system disorders (2 sources) Disorder of brain; Translations: [Encephalopathy, unspecified] 07-22-2021 Chronic Other nervous system disorders (2 sources) Unable to walk; Translations: [Difficulty in walking, not elsewhere classified] 03-06-2023 Chronic Other nervous system disorders (2 sources) Difficulty in walking, not elsewhere classified; Translations: [Difficulty in walking] 03-06-2023 Chronic Other nervous system disorders (2 sources) Shuffling gait; Translations: [Other abnormalities of gait and mobility] 05-26-2021 Episodic Other non-traumatic joint disorders (1 source) Effusion of right knee joint; Translations: [Effusion, right knee] 03-06-2023 Episodic Other non-traumatic joint disorders (1 source) Effusion, right knee; Translations: [Effusion of joint, lower leg] 03-08-2023 Episodic Other nutritional; endocrine; and metabolic disorders (6 sources) Hypercalcemia; Translations: [Hypercalcemia] Chronic Other skin disorders (2 sources) Keratosis; Translations: [Epidermal thickening, unspecified] Episodic Other skin disorders (2 sources) Asteatosis cutis; Translations: [Xerosis cutis] Episodic Other skin disorders (3 sources) Foot callus; Translations: [Corns and callosities] 02-20-2024 Episodic Other skin disorders (1 source) Corns and callosities; Translations: [Callus of foot] Onset: 04-09-20 Episodic Other upper respiratory infections (2 sources) Ethmoidal sinusitis; Translations: [Chronic ethmoidal sinusitis] 08-22-2018 Chronic Bertha-; endo-; and myocarditis; cardiomyopathy (except that caused by tuberculosis or sexually transmitted disease) (20 sources) Cardiomyopathy; Translations: [Other cardiomyopathies] Onset: 07-24-20 18 07-24-2018 Chronic Residual codes; unclassified (2 sources) Chronic confusion; Translations: [Disorientation, unspecified] 05-26-2021 Episodic Retinal detachments; defects; vascular occlusion; and retinopathy (20 sources) Retinal hemorrhage; Translations: [Retinal hemorrhage, unspecified eye] Onset: 09-13-20 15 09-13-2015 Chronic Spondylosis; intervertebral disc disorders; other back problems (20 sources) Degeneration of cervical intervertebral disc; Translations: [Other cervical disc degeneration, unspecified cervical region] Onset: 12-09-19 16 12-09-2015 Chronic Past or Other Problems Problem Classification Problem Date Documented Da te Episodic/Chronic Abdominal hernia (20 sources) Inguinal hernia; Translations: [Unilateral inguinal hernia, without obstruction or gangrene, not specified as recurrent] Onset: 04-08-2014 04-08-2014 Episodic Conduction disorders (20 sources) Left bundle branch block; Translations: [Left bundle-branch block, unspecified] Onset: 06-03-2018 Resolved: 03-25-2023 06-03-2018 Chronic Deficiency and other anemia (20 sources) Iron deficiency anemia; Translations: [Iron deficiency anemia, unspecified] Onset: 02-15-2023 02-15-2023 Episodic Genitourinary symptoms and ill-defined conditions (20 sources) Retention of urine; Translations: [Retention of urine, unspecified] Onset: 03-09-2023 Episodic Other aftercare (20 sources) Follow-up status; Translations: [Encounter for other specified aftercare] Onset: 03-08-2023 03-08-2023 Episodic Other diseases of kidney and ureters (1 source) Other obstructive and reflux uropathy; Translations: [Benign prostatic hyperplasia with urinary obstruction] Onset: 03-09-2023 Episodic Other injuries and conditions due to external causes (20 sources) History of fall; Translations: [History of falling] Onset: 07-28-2020 Resolved: 03-25-2023 07-28-2020 Episodic Other liver diseases (20 sources) Alkaline phosphatase raised; Translations: [Abnormal levels of other serum enzymes] Onset: 01-10-2021 01-10-2021 Episodic Other lower respiratory disease (20 sources) Dyspnea; Translations: [Shortness of breath] Onset: 10-30-2021 Resolved: 03-25-2023 10-30-2021 Episodic Other screening for suspected conditions (not mental disorders or infectious disease) (20 sources) Raised prostate specific antigen; Translations: [Elevated prostate specific antigen [PSA]] Onset: 06-20-2016 06-20-2016 Episodic Pneumonia (except that caused by tuberculosis or sexually transmitted disease) (2 sources) Pneumonia (except that caused by tuberculosis or sexually transmitted disease) 08-22-2018 Spondylosis; intervertebral disc disorders; other back problems (20 sources) Spinal stenosis of lumbar region; Translations: [Spinal stenosis, lumbar region without neurogenic claudication] Onset: 12-06-2008 08-30-2016 Episodic Viral infection (19 sources) COVID-19; Translations: [Acute respiratory failure] Onset: 12-09-2023 Resolved: 11-13-2024 12-09-2023 Episodic Results Test Name Value Interpretation Reference Range Facility [facility] 04-09-2025 CNOV Office Visit (PODIWS ) MICHAEL MULLINS ([id number]) 1940 M Date Time Provider Department 04/09/25 9:00 AM LORI GOODMAN During your visit today, we recorded the following information about you: Penelope Lopez MA 04/09/2025 9:23 AM Signed AMB ROOMING INTAKE FLOWSHEET DATA Risk Screening Do you have concerns about personal safety or safety in the home?: No Lori Goodman 04/09/2025 9:23 AM Signed Last saw pcp: 11/13/24 Subjective: Patient presents to clinic c/o painful toenails. They state that the nails are especially painful with shoe gear and pressure. Patient states that nails 1-5 b/l are painful. Patient admits to being diabetic. No other pedal complaints at this time. Patient states no change in medications or medical history since last visit. Objective: Patient presents to clinic ambulating in [facility] Vasc: DP and PT pulses are palpable bilateral. CFT is less than 5 seconds bilateral. Skin temperature is warm to cool proximal to distal bilateral. There is mild edema or varicosities noted. Neuro: Protective sensation is intact to the foot and toes when tested with the 5.07 SWM bilateral. Vibratory sensation is decreased at the hallux IPJ bilateral. The hallux is downgoing bilateral. Derm: Nails 1-5 b/l are painful, discolored-yellow, thick, crumbly, dystrophic and with subungal debris. Skin is of normal turgor, texture and hair growth is decreased bilateral. There are callus to the tuft of right hallux and to left 5th metatarsal. no ulcerations, scars, verruca or other lesions noted. Ortho: Muscle strength is 5/5 for all pedal groups tested. Ankle joint DF is decreased with the knee extended with no pain or crepitus noted. 1st MPJ ROM is decreased bilateral. Hammertoes are present to lesser toes of b/l feet Assessment: (B35.1) Onychomycosis (primary encounter diagnosis) (M79.675) Pain in toe of left foot (M79.674) Pain in toe of right foot (E11.42) Diabetic polyneuropathy associated with type 2 diabetes mellitus (HCC) (M20.42) Hammer toe of left foot (L84) Callus of foot Plan: Patient was seen and evaluated. Nails 1-5 bilateral were debrided in length and thickness. Callus reduced to feet with dremmel Continue with wider sneakers for hammertoe Patient was instructed on the continued importance of diabetic foot care along with proper diet and keeping their blood sugar under control to prevent complications. I stressed the importance of avoiding barefoot walking, wearing good shoes and inspection of feet. Patient is to RTC in 3-4 months. IRINEO Weeks Matthew 04/09/2025 9:08 AM Signed Diabetes Foot Care Instructions When you have diabetes, proper foot care is very important. Poor foot care may lead to amputation of a foot or leg. As a person with diabetes, you are more vulnerable to foot problems, because diabetes can damage your nerves and reduce blood flow to your feet. Here are some diabetes foot care tips to follow: Wash and Dry Your Feet Daily Use mild soaps Use warm water Pat your skin dry; do not rub. Thoroughly dry your feet. After washing, use lotion on your feet to prevent cracking. Do not put lotion between your toes. Examine Your Feet Each Day Check the tops and bottoms of your feet. Have someone else look at your feet if you cannot see them. Check for dry, cracked skin. Look for blisters, cuts, scratches, or other sores. Check for redness, increased warmth, or tenderness when touching any area of your feet. Check for ingrown toenails, corns, and calluses. If you get a blister or sore from your shoes, do not pop it. Apply a bandage and wear a different pair of shoes. Take Care of Your Toenails Cut toenails after bathing, when they are soft. Cut toenails straight across and smooth with a nail file. Avoid cutting into the corners of toes. Do not cut cuticles. If you have neuropathy (or decreased sensation in your feet) a hair designer should always cut your toenails. Be Careful When Exercising Walk and exercise in comfortable shoes. Do not exercise when you have open sores on your feet. Protect Your Feet With Shoes and Socks Never go barefoot. Always protect your feet by wearing shoes or hard-soled slippers or footwear. Avoid shoes with high heels and pointed toes. Avoid shoes that expose your toes or heels (such as open-toed shoes or sandals). These types of shoes increase your risk for injury and potential infections. Try on new footwear with the type of socks you usually wear. Do not wear new shoes for more than an hour at a time. Change your socks daily. Look and feel inside your shoes before putting them on to make sure there are no foreign objects or rough areas. Avoid tight socks. Wear natural-fiber socks (cotton, wool, or a cotton-wool blend). Wear special shoes if your health care provider recom (more content not included)... [facility] CNOVon 01-08-2025 CNOV Office Visit (PODIWS ) MICHAEL MULLINS ([id number]) 1940 M Date Time Provider Department 01/08/25 9:30 AM LORI GOODMAN PODIWS During your visit today, we recorded the following information about you: Lashay Brooke LPN 01/08/2025 9:32 AM Signed AMB ROOMING INTAKE FLOWSHEET DATA Pain Pain Level: 7 Pain Location: Foot-Right Duration Units: Months Frequency: Intermittent Intervention/Comfort measure: Medication, Reposition, Relaxation Patient presents with: Left Foot - Established Patient, Follow Up, Diabetic Foot Care Right Foot - Established Patient, Follow Up, Diabetic Foot Care TRIXIE Chapman Matthew 01/08/2025 9:20 AM Signed Diabetes Foot Care Instructions When you have diabetes, proper foot care is very important. Poor foot care may lead to amputation of a foot or leg. As a person with diabetes, you are more vulnerable to foot problems, because diabetes can damage your nerves and reduce blood flow to your feet. Here are some diabetes foot care tips to follow: Wash and Dry Your Feet Daily Use mild soaps Use warm water Pat your skin dry; do not rub. Thoroughly dry your feet. After washing, use lotion on your feet to prevent cracking. Do not put lotion between your toes. Examine Your Feet Each Day Check the tops and bottoms of your feet. Have someone else look at your feet if you cannot see them. Check for dry, cracked skin. Look for blisters, cuts, scratches, or other sores. Check for redness, increased warmth, or tenderness when touching any area of your feet. Check for ingrown toenails, corns, and calluses. If you get a blister or sore from your shoes, do not pop it. Apply a bandage and wear a different pair of shoes. Take Care of Your Toenails Cut toenails after bathing, when they are soft. Cut toenails straight across and smooth with a nail file. Avoid cutting into the corners of toes. Do not cut cuticles. If you have neuropathy (or decreased sensation in your feet) a hair designer should always cut your toenails. Be Careful When Exercising Walk and exercise in comfortable shoes. Do not exercise when you have open sores on your feet. Protect Your Feet With Shoes and Socks Never go barefoot. Always protect your feet by wearing shoes or hard-soled slippers or footwear. Avoid shoes with high heels and pointed toes. Avoid shoes that expose your toes or heels (such as open-toed shoes or sandals). These types of shoes increase your risk for injury and potential infections. Try on new footwear with the type of socks you usually wear. Do not wear new shoes for more than an hour at a time. Change your socks daily. Look and feel inside your shoes before putting them on to make sure there are no foreign objects or rough areas. Avoid tight socks. Wear natural-fiber socks (cotton, wool, or a cotton-wool blend). Wear special shoes if your health care provider recommends them. Wear shoes/boots that will protect your feet from various weather conditions (cold, moisture, etc.). Make sure your shoes fit properly. If you have neuropathy (nerve damage), you may not notice that your shoes are too tight. Perform the footwear test described below. Footwear Test Use this simple test to see if your shoes fit correctly: Stand on a piece of paper. (Make sure you are standing and not sitting, because your foot changes shape when you stand.) Trace the outline of your foot. Trace the outline of your shoe. Compare the tracings: Is the shoe too narrow? Is your foot crammed into the shoe? The shoe should be at least 1/2 inch longer than your longest toe and as wide as your foot. Proper Shoe Choices The following types of shoes are best for people with diabetes Closed toes and heels Leather uppers without a seam inside At least 1/2 inch extra space at the end of your longest toe Inside of shoe should be soft with no rough areas Outer sole should be made of stiff material Shoes should be at least as wide as your feet Tips for Foot Care in Diabetes Don't wait to treat a minor foot problem if you have diabetes. Follow your health care provider's guidelines and first aid guidelines. Report foot injuries and infections to your health care provider immediately. Check water temperature with your elbow, not your foot. Do not use a heating pad on your feet. Do not cross your legs. Do not self-treat your corns, calluses, or other foot problems. Go to your health care provider or hair designer to treat these conditions. Lori Goodman 01/08/2025 9:32 AM Signed Last saw pcp: 11/13/24 Subjective: Patient presents to clinic c/o painful toenails. They state that the nails are especially painful with shoe gear and pressure. Patient states that nails 1-5 b/l are painful. Patient admits to being diabetic. No other pedal complaints at this time. Patient states no ch (more content not included)... [facility] Juan Miguel [facility]-20[facility] MICHAEL MULLINS ([id number]) 1940 M Date Time Provider Department 11/16/24 ANTONY ESPINOZA During your visit today, we recorded the following information about you: Antony Espinoza MD 11/16/2024 11:56 AM Signed His kidney function is better but still pretty low. Given his protein in his urine. Recommend he follow with nephrology Nicole Bass LPN 11/16/2024 3:57 PM Signed Left message for to call and speak with nurse. Mirlande Keyes RN 11/17/2024 9:37 AM Signed Patient notified of results and provider's instructions. Patient verbalizes understanding. TRACY Jo Tara, LPN 11/20/2024 1:23 PM Signed Patient was in for a visit and mentioned that nephro didn't have any info when she called to set up visit. I am not sure what nephro he was trying to schedule with. Left a message for to please contact the office and let us know where to send referral info. Allergies As of Date: 11/16/2024 Noted Allergy Reaction ALTACE (RAMIPRIL) 09/18/2005 GABAPENTIN 04/06/2013 14 - Other: See Comments Comments: tremors TOPROL XL (METOPROLOL SUCCINATE) 09/18/2005 Date Reviewed: 11/13/2024 Reviewed by: Selena Hoffman LPN - Fully Assessed Reason for Visit: Results [95] Primary Visit Diagnosis:Stage 3 chronic kidney disease, unspecified whether stage 3a or 3b CKD ([facility]) [N18.30] Order(s):CONSULT TO NEPHROLOGY [9018] Order #: [id number]: 1 FUTURE Prescriptions as of 11/20/2024 - donepezil (ARICEPT) 10 mg tablet Take 1 tablet by mouth daily at bedtime. - losartan (COZAAR) 50 mg tablet Take 1 tablet by mouth once daily. - allopurinol (ZYLOPRIM) 300 mg tablet TAKE 1 TABLET BY MOUTH ONCE DAILY. FOR GOUT. - PARoxetine (PAXIL) 10 mg tablet Take 1 tablet by mouth once daily. - doxazosin (CARDURA) 8 mg tablet take 1 tablet by mouth at bedtime - atorvastatin (LIPITOR) 10 mg tablet Take 1 tablet by mouth once daily. - memantine (NAMENDA) 10 mg tablet Take 1 tablet by mouth two times a day. - Cholecalciferol, Vitamin D3, 25 mcg (1,000 unit) cap Take 1,000 Units by mouth once daily. - acetaminophen (TYLENOL EXTRA STRENGTH) 500 mg tablet Take 1 tablet by mouth every 6 hours as needed for pain. - IFEREX 150 150 mg iron capsule Take 150 mg by mouth once daily. 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 Primary hypertension [I10] 09/13/2006 Anxiety state [F41.1] 12/06/2008 Lumbar spinal stenosis [M48.061] 12/06/2008 Coronary atherosclerosis [I25.10] 10/18/2009 Arteriosclerosis of both carotid arteries [I65.*10/18/2009 Hammer toe [M20.40] 09/01/2010 Gout [M10.9] 08/25/2012 Benign prostatic hyperplasia with urinary reten*01/06/2013 Lumbar disc disease with radiculopathy [M51.16] 04/06/2013 Inguinal hernia [K40.90] 04/08/2014 BPH (benign prostatic hyperplasia) [N40.0] 04/21/2014 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] 02/07/2015 Hyperlipidemia LDL goal <100 [E78.5] 09/13/2015 Retinal hemorrhage [H35.60] 09/13/2015 Mild cognitive impairment with memory loss [G31*09/13/2015 Degenerative disc disease, cervical [M50.30] 12/09/2015 Elevated prostate specific antigen (PSA) [R97.2*06/20/2016 Controlled type 2 diabetes mellitus with microa*07/24/2016 LBBB (left bundle branch block) [I44.7] 06/03/2018 03/25/2023 Cardiomyopathy, nonischemic (HCC) [I42.8] 07/24/2018 Personal history of fall [Z91.81] 07/28/2020 03/25/2023 Elevated alkaline phosphatase level [R74.8] 01/10/2021 Shortness of breath [R06.02] 10/30/2021 03/25/2023 Type 2 diabetes mellitus, without long-term cur*05/03/2022 JOELLE (iron deficiency anemia) [D50.9] 02/15/2023 After care [Z51.89] 03/08/2023 Nocturia [R35.1] 2023 Poor urinary stream [R39.12] 2023 Pre-op examination [Z01.818] 05/07/2023 05/20/2023 Incomplete bladder emptying [R33.9] 05/07/2023 BPH with urinary obstruction [N40.1, N13.8] 05/23/2023 Acute hypoxemic respiratory failure due to COVI*12/09/2023 11/13/2024 Chronic systolic heart failure (HCC) [I50.22] 12/09/2023 Encounter Status:Closed by MIRLANDE KEYES on 11/17/24 [facility] ALBUMIN/CREATININE RATIO, UR INEon 11-13-2024 Albumin DL <= 20 mg/L (U) [Mass/Vol] 836.7 mg/L [facility] Comment on above: Order Comment: Speci men Type: URINE SPECIMENOrdering Facility: [facility] Address: [address] [place] [address] Performed By: #### U ACR ####[facility]CLIA [id number] [place] [address] [place] Albumin/Creatinine (U) [Mass ratio] 585 mg/g High <30 [facility] Comment on above: Order Comment: Speci men Type: URINE SPECIMENOrdering Facility: [facility] Address: [address] [place] [address] Result Comment: Adul t Male and Female Nephrotic Criteria: <30 mg/g is considered normal to mildly increased 30-300 mg/g is considered moderately increased >300 mg/g is considered severely increased KDIGO. (2013). KDIGO 2012 Clinical Practice Guideline for the Evaluation and Management of Chronic Kidney Disease. Official Journal of the International Society of Nephrology, 3(1), 1-150. Performed By: #### U ACR ####[facility]CLIA [id number] [place] [address] [place] Creatinine (U) [Mass/Vol] 143.0 mg/dL Normal 20.0-300.0 [facility] Comment on above: Order Comment: Speci men Type: URINE SPECIMENOrdering Facility: [facility] Address: [address] [place] [address] Performed By: #### U ACR ####[facility] [id number] [place] [address] [place] CBC W Auto Differential pane l (Bld)on 11-13-2024 Basophils (Bld) [#/Vol] 0.03 10*3/uL [facility] Basophils/100 WBC (Bld) 0.3 % C [facility] Differential cell count method Nom (Bld) Auto [facility] Eosinophils (Bld) [#/Vol] 0.11 10*3/uL [facility] Eosinophils/100 WBC (Bld) 1.2 % [facility] Erythrocyte distribution width (RBC) [Ratio] 15.5 % High 11.5 - 15.0 % [facility] Hematocrit (Bld) [Volume fraction] 42.9 % 39.0 - 51.0 % [facility] Hemoglobin (Bld) [Mass/Vol] 13.7 g/dL 13.0 - 17.0 g/dL [facility] Immature granulocytes (Bld) [#/Vol] 0.04 10*3/uL [facility] Immature granulocytes/100 WBC (Bld) 0.4 % [facility] Interpretation and review of laboratory results Abnormal [facility] Lymphocytes (Bld) [#/Vol] 2.96 10*3/uL [facility] Lymphocytes/100 WBC (Bld) 31.0 % [facility] MCH (RBC) [Entitic mass] 32.1 pg 26. 0 - 34.0 pg [facility] MCHC (RBC) [Mass/Vol] 31.9 g/dL 30.5 - 36.0 g/dL [facility] MCV (RBC) [Entitic vol] 100.5 fL High 80.0 - 100.0 fL [facility] Monocytes (Bld) [#/Vol] 0.59 10*3/uL [facility] Monocytes/100 WBC (Bld) 6.2 % [facility] Neutrophils (Bld) [#/Vol] 5.83 10*3/uL [facility] Neutrophils/100 WBC (Bld) 60.9 % [facility] Nucleated RBC (Bld) [#/Vol] [facility] Nucleated RBC/100 WBC (Bld) [Ratio] 0.0 % /100 WBC [facility] Platelet mean volume (Bld) [Entitic vol] 10.7 fL 9.0 - 12.7 fL [facility] Platelets (Bld) [#/Vol] 170 10*3/uL [facility] RBC (Bld) [#/Vol] 4.27 10*6/uL 4.20 - 6.0 0 m/uL [facility] WBC (Bld) [#/Vol] 9.56 10*3/uL [facility] Basophils (Bld) [#/Vol] 0.03 10*3/uL Normal <0.11 [facility] Comment on above: Order Comment: Speci men Type: BLOOD SPECIMENOrdering Facility: [facility] Address: [address] [place] [address] Performed By: #### 5 7021-8 ####[facility]CL[facility] [id number] [place] [address] [place] Basophils/100 WBC (Bld) 0.3 % Normal C [facility] Comment on above: Order Comment: Speci men Type: BLOOD SPECIMENOrdering Facility: [facility] Address: [address] [place] [address] Performed By: #### 5 7021-8 ####[facility]CLIA [id number] [place] [address] [place] Differential cell count method Nom (Bld) Auto [facility] Comment on above: Order Comment: Speci men Type: BLOOD SPECIMENOrdering Facility: [facility] Address: [address] [place] [address] Performed By: #### 5 7021-8 ####[facility] LABIA [id number] [place] [address] [place] Eosinophils (Bld) [#/Vol] 0.11 10*3/uL Normal <0.46 [facility] Comment on above: Order Comment: Speci men Type: BLOOD SPECIMENOrdering Facility: [facility] Address: [address] [place] [address] Performed By: #### 5 7021-8 ####[facility]CLIA [id number] [place] [address] [place] Eosinophils/100 WBC (Bld) 1.2 % [facility] Comment on above: Order Comment: Speci men Type: BLOOD SPECIMENOrdering Facility: [facility] Address: [address] [place] [address] Performed By: #### 5 7021-8 ####[facility]CL[facility] [id number] [place] [address] [place] Erythrocyte distribution width (RBC) [Ratio] 15.5 % High 11.5-15.0 [facility] Comment on above: Order Comment: Speci men Type: BLOOD SPECIMENOrdering Facility: [facility] Address: [address] [place] [address] Performed By: #### 5 7021-8 ####[facility]IA [id number] [place] [address] [place] Hematocrit (Bld) [Volume fraction] 42.9 % Normal 39.0-51.0 [facility] Comment on above: Order Comment: Speci men Type: BLOOD SPECIMENOrdering Facility: [facility] Address: [address] [place] [address] Performed By: #### 5 7021-8 ####[facility] LABCLIA [id number] [place] [address] [place] Hemoglobin (Bld) [Mass/Vol] 13.7 g/dL Normal 13.0-17.0 [facility] Comment on above: Order Comment: Speci men Type: BLOOD SPECIMENOrdering Facility: [facility] Address: [address] [place] [address] Performed By: #### 5 7021-8 ####[facility]IA [id number] [id number], [place] [address] [place] Immature granulocytes (Bld) [#/Vol] 0.04 10*3/uL Normal <0.10 [facility] Comment on above: Order Comment: Speci men Type: BLOOD SPECIMENOrdering Facility: [facility] Address: [address] [place] [address] Performed By: #### 5 7021-8 ####[facility] LABCLIA [id number] [place] [address] [place] Immature granulocytes/100 WBC (Bld) 0.4 % Normal [facility] Comment on above: Order Comment: Speci men Type: BLOOD SPECIMENOrdering Facility: [facility] Address: [address] [place] [address] Performed By: #### 5 7021-8 ####[facility] LABCLIA [id number] [place] [address] [place] Lymphocytes (Bld) [#/Vol] 2.96 10*3/uL Normal 1.00-4.00 [facility] Comment on above: Order Comment: Speci men Type: BLOOD SPECIMENOrdering Facility: [facility] Address: [address] [place] [address] Performed By: #### 5 7021-8 ####[facility] LABCLIA [id number] [place] [address] [place] Lymphocytes/100 WBC (Bld) 31.0 % Normal [facility] Comment on above: Order Comment: Speci men Type: BLOOD SPECIMENOrdering Facility: [facility] Address: [address] [place] [address] Performed By: #### 5 7021-8 ####[facility] LABCLIA [id number] [place] [address] [place] MCH (RBC) [Entitic mass] 32.1 pg Normal 26.0-34.0 [facility] Comment on above: Order Comment: Speci men Type: BLOOD SPECIMENOrdering Facility: [facility] Address: [address] [place] [address] Performed By: #### 5 7021-8 ####[facility] LABCLIA [id number] [place] [address] [place] MCHC (RBC) [Mass/Vol] 31.9 g/dL Normal 30.5-36.0 [facility] Comment on above: Order Comment: Speci men Type: BLOOD SPECIMENOrdering Facility: [facility] Address: [address] [place] [address] Performed By: #### 5 7021-8 ####[facility] [id number] [place] [address] [place] MCV (RBC) [Entitic vol] 100.5 fL High 80.0-100.0 [facility] Comment on above: Order Comment: Speci men Type: BLOOD SPECIMENOrdering Facility: [facility] Address: [address] [place] [address] Performed By: #### 5 7021-8 ####[facility] [id number] [place] [address] [place] Monocytes (Bld) [#/Vol] 0.59 10*3/uL Normal <0.87 [facility] Comment on above: Order Comment: Speci men Type: BLOOD SPECIMENOrdering Facility: [facility] Address: [address] [place] [address] Performed By: #### 5 7021-8 ####[facility]CLIA [id number] [place] [address] [place] Monocytes/100 WBC (Bld) 6.2 % Normal C [facility] Comment on above: Order Comment: Speci men Type: BLOOD SPECIMENOrdering Facility: [facility] Address: [address] [place] [address] Performed By: #### 5 7021-8 ####[facility] LABCLIA [id number] [place] [address] [place] Neutrophils (Bld) [#/Vol] 5.83 10*3/uL Normal 1.45-7.50 [facility] Comment on above: Order Comment: Speci men Type: BLOOD SPECIMENOrdering Facility: [facility] Address: [address] [place] [address] Performed By: #### 5 7021-8 ####[facility]CLIA [id number] [place] [address] [place] Neutrophils/100 WBC (Bld) 60.9 % Normal [facility] Comment on above: Order Comment: Speci men Type: BLOOD SPECIMENOrdering Facility: [facility] Address: [address] [place] [address] Performed By: #### 5 7021-8 ####[facility] LABCLIA [id number] [place] [address] [place] Nucleated RBC (Bld) [#/Vol] 10*3/uL Normal <0.01 [facility] Comment on above: Order Comment: Speci men Type: BLOOD SPECIMENOrdering Facility: [facility] Address: [address] [place] [address] Performed By: #### 5 7021-8 ####[facility] LABCLIA [id number] [place] [address] [place] Nucleated RBC/100 WBC (Bld) [Ratio] 0.0 /100 WBC Normal [facility] Comment on above: Order Comment: Speci men Type: BLOOD SPECIMENOrdering Facility: [facility] Address: [address] [place] [address] Performed By: #### 5 7021-8 ####[facility] LABCLIA [id number] [place] [address] [place] Platelet mean volume (Bld) [Entitic vol] 10.7 fL Normal 9.0-12.7 [facility] Comment on above: Order Comment: Speci men Type: BLOOD SPECIMENOrdering Facility: [facility] Address: [address] [place] [address] Performed By: #### 5 7021-8 ####[facility] [id number] [place] [address] [place] Platelets (Bld) [#/Vol] 170 10*3/uL Normal 150-400 [facility] Comment on above: Order Comment: Speci men Type: BLOOD SPECIMENOrdering Facility: [facility] Address: [address] [place] [address] Performed By: #### 5 7021-8 ####[facility] [id number] [place] [address] [place] RBC (Bld) [#/Vol] 4.27 10*6/uL Normal 4.20-6.00 [facility] Comment on above: Order Comment: Speci men Type: BLOOD SPECIMENOrdering Facility: [facility] Address: [address] [place] [address] Performed By: #### 5 7021-8 ####[facility]IA [id number] [place] [address] [place] WBC (Bld) [#/Vol] 9.56 10*3/uL Normal 3.70-11.00 [facility] Comment on above: Order Comment: Speci men Type: BLOOD SPECIMENOrdering Facility: [facility] Address: [address] [place] [address] Performed By: #### 5 7021-8 ####[facility] [id number] [address] [place] CNOVon 11-13-2024 CNOV Office Visit (FAMPWS ) MICHAEL MULLINS ([id number]) 1940 M Date Time Provider Department 11/13/24 10:00 AM ANTONY ESPINOZA During your visit today, we recorded the following information about you: Pulse Respiration Blood pressure Weight 62/minute 16/minute 134/82 65.3 kg Antony Espinoza MD 11/13/2024 11:01 AM Signed Patient presents with: Physical HPI: Patient presents today for office visit for follow up. Still seeing urology, podiatry, cardiology, heme onc.( Brenjennifer) Accompanied by his daughter. Mentally still stable. No wandering. Discussed that he should not be driving. No falls. Using cane for ambulation. No chest pain or shortness of breath. No gout issues. No new edema. No dizziness. Appetite is good. No urinary or gi issues. MEDICATIONS: Current Outpatient Medications Medication Sig donepezil (ARICEPT) 10 mg tablet Take 1 tablet by mouth daily at bedtime. losartan (COZAAR) 50 mg tablet Take 1 tablet by mouth once daily. allopurinol (ZYLOPRIM) 300 mg tablet TAKE 1 TABLET BY MOUTH ONCE DAILY. FOR GOUT. PARoxetine (PAXIL) 10 mg tablet Take 1 tablet by mouth once daily. doxazosin (CARDURA) 8 mg tablet take 1 tablet by mouth at bedtime atorvastatin (LIPITOR) 10 mg tablet Take 1 tablet by mouth once daily. memantine (NAMENDA) 10 mg tablet Take 1 tablet by mouth two times a day. Cholecalciferol, Vitamin D3, 25 mcg (1,000 unit) cap Take 1,000 Units by mouth once daily. IFEREX 150 150 mg iron capsule Take 150 mg by mouth once daily. acetaminophen (TYLENOL EXTRA STRENGTH) 500 mg tablet Take 1 tablet by mouth every 6 hours as needed for pain. No current facility-administered medications for this visit. 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 01/06/2013 Controlled type 2 diabetes mellitus without complication, without long-term current use of insulin (HCC) 07/24/2016 Degenerative disc disease, cervical 12/09/2015 Depression Diabetes mellitus (HCC) 07/14/2010 Elevated alkaline phosphatase level 01/10/2021 01/09/21 alk phos 142 Gout 08/25/2012 High cholesterol History of splenectomy 02/07/2015 Hypertension Inguinal hernia 04/08/2014 LBBB (left bundle branch block) Leukemia in remission ([facility]) Lumbar disc disease with radiculopathy 04/06/2013 Mental disorder Mild cognitive impairment with memory loss 09/13/2015 Retention of urine Snoring spinal stenosis Vitreous hemorrhage ([facility]) 2015 left eye PAST SURGICAL HISTORY Procedure Laterality Date COLONOSCOPY FLX DX W/COLLJ SPEC WHEN PFRMD 04/06/2003 Repeat in COLONOSCOPY FLX DX W/COLLJ SPEC WHEN PFRMD 02/17/2013 Colonoscopy COLONOSCOPY FLX DX W/COLLJ SPEC WHEN PFRMD 06/03/2018 Colonoscopy EGD 08/24/2003 + hpylori PAST SURGICAL HISTORY OF 2001 back surgery PAST SURGICAL HISTORY OF 2000 back surgery PAST SURGICAL HISTORY OF Right 2018 hemiarthroplasty of hip PAST SURGICAL HISTORY OF 02/2023 parathryroid removed REMV CATARACT EXTRACAP,INSERT LENS Bilateral 2012 RPR 1ST INGUN HRNA AGE 7 YRS/> REDUCIBLE 08/29/2020 Hernia repair, inguinal,left SPLENECTOMY TOTAL SEPARATE PROCEDURE 1984 Splenectomy TONSILLECTOMY PRIMARY/SECONDARY Tonsillectomy as a child FAMILY HISTORY Problem Relation Age of Onset Cancer Mother ovarian Heart Father COPD Sister Cancer Sister retroorbital Social History Tobacco Use Smoking status: Former Current packs/day: 0.00 Average packs/day: 0.5 packs/day for 20.0 years (10.0 ttl pk-yrs) Types: Cigarettes Start date: 05/21/1979 Quit date: 05/21/1999 Years since quittin.5 Smokeless tobacco: Never Vaping Use Vaping status: Never Used Substance Use Topics Alcohol use: Yes Comment: occasionally Drug use: Never Reviewed current medications, allergies, past medical history, surgical history, family history and social history today. REVIEW OF SYSTEMS All other reviewed and negative other than HPI. HEALTH MAINTENANCE: Reviewed health maintenance issues today and recommended the following in detail. Depression Screening Never done Shingrix Vaccine(1 of 2) due on 03/31/2012 RSV Vaccine(1 - 1-dose 75+ series) Never done Advance Directive Discussion -on file. HbA1C due on 11/20/2023 Influenza Vaccine(1) due on 07/19/2024 Diabetic Foot Exam- per podiatry VITALS: BP 134/82 Pulse 62 Resp 16 Wt 65.3 kg (144 lb) SpO2 97% BMI 24.72 kg/m? Last 4 Encounter Wt Readings: Date: Wt: 11/13/2024 65.3 kg (144 lb) 12/09/2023 59.9 kg (132 lb) 05/20/2023 60.3 kg (133 lb) 05/10/2023 61.2 kg (135 lb) PHYSIC (more content not included)... Normal [facility] Comprehensive metabolic 2000 panelon 11-13-2024 Albumin [Mass/Vol] 4.2 g/dL Normal 3.9-4.9 [facility] Comment on above: Order Comment: Speci men Type: BLOOD SPECIMENOrdering Facility: [facility] Address: [address] [place] [address] Performed By: #### 2 4323-8, LIPNF, 3083-1 ####[facility] LABCLIA [id number] [place] [address] [place] ALP [Catalytic activity/Vol] 115 U/L High 38-113 [facility] Comment on above: Order Comment: Speci men Type: BLOOD SPECIMENOrdering Facility: [facility] Address: [address] [place] [address] Performed By: #### 2 4323-8, LIPNF, 3083-1 ####[facility] LABCLIA [id number] [place] [address] [place] ALT [Catalytic activity/Vol] 24 U/L Normal 10-54 [facility] Comment on above: Order Comment: Speci men Type: BLOOD SPECIMENOrdering Facility: [facility] Address: [address] [place] [address] Performed By: #### 2 4323-8, LIPNF, 308-1 ####[facility] LABCLIA [id number] [place] [address] [place] Anion gap [Moles/Vol] 15 mmol/L Normal 8-15 [facility] Comment on above: Order Comment: Speci men Type: BLOOD SPECIMENOrdering Facility: [facility] Address: [address] [place] [address] Performed By: #### 2 4323-8, LIPNF, 3083-1 ####[facility] LABCLIA [id number] [place] [address] [place] AST [Catalytic activity/Vol] 39 U/L Normal 14-40 [facility] Comment on above: Order Comment: Speci men Type: BLOOD SPECIMENOrdering Facility: [facility] Address: [address] [place] [address] Performed By: #### 2 4323-8, LIPNF, 3083-1 ####[facility] LABCLIA [id number] [place] [address] [place] Bilirubin [Mass/Vol] 0.3 mg/dL Normal 0.2-1.3 [facility] Comment on above: Order Comment: Speci men Type: BLOOD SPECIMENOrdering Facility: [facility] Address: [address] [place] [address] Performed By: #### 2 4323-8, LIPNF, 3083-1 ####[facility] LABCLIA [id number] [place] [address] [place] Calcium [Mass/Vol] 9.3 mg/dL Normal 8.5-10.2 [facility] Comment on above: Order Comment: Speci men Type: BLOOD SPECIMENOrdering Facility: [facility] Address: [address] [place] [address] Performed By: #### 2 4323-8, LIPNF, 308-1 ####[facility] LABCLIA [id number] [place] [address] [place] Chloride [Moles/Vol] 107 mmol/L Normal 98-107 [facility] Comment on above: Order Comment: Speci men Type: BLOOD SPECIMENOrdering Facility: [facility] Address: [address] [place] [address] Performed By: #### 2 4323-8, LIPNF, 3084-1 ####[facility] LABCLIA [id number] [place] [address] [place] CO2 [Moles/Vol] 21 mmol/L Low 22-30 [facility] Comment on above: Order Comment: Speci men Type: BLOOD SPECIMENOrdering Facility: [facility] Address: [address] [place] [address] Performed By: #### 2 4323-8, LIPNF, 3084-1 ####[facility] LABCLIA [id number] [place] [address] [place] Creatinine [Mass/Vol] 1.84 mg/dL High 0.73-1.22 [facility] Comment on above: Order Comment: Speci men Type: BLOOD SPECIMENOrdering Facility: [facility] Address: [address] [place] [address] Performed By: #### 2 4323-8, LIPNF, 3084-1 ####[facility] LABCLIA [id number] [place] [address] [place] Creatinine and Glomerular filtration rate.predicted panel (S/P/Bld) 36 mL/min/1.73m??? Low >=60 [facility] Comment on above: Order Comment: Speci men Type: BLOOD SPECIMENOrdering Facility: [facility] Address: [address] [place] [address] Result Comment: Prachi mated Glomerular Filtration Rate (eGFR) is calculated using the 2020 CKD-EPI creatinine equation. This equation utilizes serum creatinine, sex, and age as parameters. The creatinine assay has traceable calibration to isotope dilution-mass spectrometry. Refer to KDIGO guidelines for clinical interpretation. In patients with unstable renal function, e.g. those with acute kidney injury, the eGFR may not accurately reflect actual GFR. Performed By: #### 2 4323-8, LIPJULIAN, 3083-1 ####[facility] LABCLIA [id number] [place] [address] [place] Glucose [Mass/Vol] 87 mg/dL Normal 74-99 [facility] Comment on above: Order Comment: Speci men Type: BLOOD SPECIMENOrdering Facility: [facility] Address: [address] [place] [address] Result Comment: The [place] Diabetes Association (ADA) provides guidance for cutoff values for fasting glucose and random glucose. The ADA defines fasting as no caloric intake for at least 8 hours. Fasting plasma glucose results between 100 to 125 mg/dL indicate increased risk for diabetes (prediabetes). Fasting plasma glucose results greater than or equal to 126 mg/dL meet the criteria for diagnosis of diabetes. In the absence of unequivocal hyperglycemia, results should be confirmed by repeat testing. In a patient with classic symptoms of hyperglycemia or hyperglycemic crisis, random plasma glucose results greater than or equal to 200 mg/dL meet the criteria for diagnosis of diabetes. Reference: Standards of Medical Care in Diabetes 2016, [place] Diabetes Association. Diabetes Care. 2016.39(Suppl 1). Performed By: #### 2 4323-8, ANH, 3083-1 ####[facility] LABCLIA [id number] [place] [address] [place] Potassium [Moles/Vol] 5.0 mmol/L Normal 3.7-5.1 [facility] Comment on above: Order Comment: Speci men Type: BLOOD SPECIMENOrdering Facility: [facility] Address: [address] [place] [address] Performed By: #### 2 4323-8, ANH, 3083-1 ####[facility]IA [id number] [place] [address] [place] Protein [Mass/Vol] 6.7 g/dL Normal 6.3-8.0 [facility] Comment on above: Order Comment: Speci men Type: BLOOD SPECIMENOrdering Facility: [facility] Address: [address] [place] [address] Performed By: #### 2 4323-8, LIPNF, 308-1 ####[facility] [id number] [place] [address] [place] Sodium [Moles/Vol] 143 mmol/L Normal 136-144 [facility] Comment on above: Order Comment: Speci men Type: BLOOD SPECIMENOrdering Facility: [facility] Address: [address] [place] [address] Performed By: #### 2 4323-8, LIPNF, 3083-1 ####[facility]IA [id number] [place] [address] [place] Urea nitrogen [Mass/Vol] 37 mg/dL High 9-24 [facility] Comment on above: Order Comment: Speci men Type: BLOOD SPECIMENOrdering Facility: [facility] Address: [address] [place] [address] Performed By: #### 2 4323-8, LIPNF, 3083-1 ####[facility]IA [id number] [place] [address] [place] HbA1c (Bld)on 11-13-2024 Average glucose Estimated from glycated hemoglobin (Bld) [Mass/Vol] 111 mg/dL Normal [facility] Comment on above: Order Comment: Speci men Type: BLOOD SPECIMENOrdering Facility: [facility] Address: [address] [place] [address] Result Comment: eAG: (Estimated average glucose) is a calculated value from HgbA1c and is financial sales representative of the average blood glucose level in the last 2-3 month period. Performed By: #### 5 5454-3 ####[facility] [id number] [place] [address] [place] HbA1c (Bld) [Mass fraction] 5.5 % Normal 4.3-5.6 [facility] Comment on above: Order Comment: Speci men Type: BLOOD SPECIMENOrdering Facility: [facility] Address: [address] [place] [address] Result Comment: [place] Diabetes Association guidelines indicate that patients with HgbA1c in the range 5.7-6.4% are at increased risk for development of diabetes, and intervention by lifestyle modification may be beneficial. HgbA1c greater or equal to 6.5% is considered diagnostic of diabetes. Performed By: #### 5 5454-3 ####[facility]CLIA [id number] [place] [address] [place] LIPID PANEL, NONFASTINGon Cholesterol [Mass/Vol] 135 mg/dL Normal <200 [facility] Comment on above: Order Comment: Speci men Type: BLOOD SPECIMENOrdering Facility: [facility] Address: [address] [place] [address] Result Comment: <200 mg/dL, Desirable 200-239 mg/dL, Borderline high >239 mg/dL, High Performed By: #### 2 4323-8, LIPNF, 3084-1 ####[facility]CLIA [id number] [place] [address] [place] HDL CHOLESTEROL, NF 65 mg/dL Normal >39 [facility] Comment on above: Order Comment: Speci men Type: BLOOD SPECIMENOrdering Facility: [facility] Address: [address] [place] [address] Result Comment: 40-5 9 mg/dL, Acceptable >59 mg/dL, High: Negative risk factor for coronary heart disease <40 mg/dL, Low: Positive risk factor for coronary heart disease Performed By: #### 2 4323-8, LIPNF, 3084-1 ####[facility] [id number] [place] [address] [place] LDL CHOLESTEROL, NF 57 mg/dL Normal <100 [facility] Comment on above: Order Comment: Speci men Type: BLOOD SPECIMENOrdering Facility: [facility] Address: [address] [place] [address] Result Comment: <100 mg/dL, Optimal 100-129 mg/dL, Near optimal/above optimal 130-159 mg/dL, Borderline high 160-189 mg/dL, High >189 mg/dL, Very high Secondary prevention optimal LDL Cholesterol levels are recommended to be < 70 mg/dL Performed By: #### 2 4323-8, LIPNF, 3084-1 ####[facility]CLIA [id number] [address] LDL/HDL RATIO, NF 0.88 mg/dL Normal <2.54 [facility] Comment on above: Order Comment: Speci men Type: BLOOD SPECIMENOrdering Facility: [facility] Address: [address] [place] [address] Result Comment: Refe rence: 1. National Cholesterol Education Program ATP III Guideline At-A-Glance Quick Desk Reference: National Heart, Lung, and Blood Calvin. National Institutes of Health. 2001: NIH Publication No. 01-3305. 2. An International Atherosclerosis Society position paper: global recommendations for the management of dyslipidemia: executive summary, Atherosclerosis. 2014: 232(2):410-413. Performed By: #### 2 4323-8, LIPNF, 3083-1 ####[facility]CLIA [id number] [address] [place] NON HDL CHOL, NF 70 mg/dL Normal <130 [facility] Comment on above: Order Comment: Darcie men Type: BLOOD SPECIMENOrdering Facility: [facility] Address: [address] [place] [address] Result Comment: <130 mg/dL, Optimal 130-159 mg/dL, Near optimal/above optimal 160-189 mg/dL, Borderline high 190-219 mg/dL, High >219 mg/dL, Very high Secondary prevention optimal non HDL Cholesterol levels are recommended to be <100 mg/dL Performed By: #### 2 4323-8, LIPNF, 4-1 ####[facility]CLIA [id number] [address] [place] T CHOL/HDL RATIO NF 2.08 mg/dL Normal <5.10 [facility] Comment on above: Order Comment: Speci men Type: BLOOD SPECIMENOrdering Facility: [facility] Address: [address] [place] [address] Performed By: #### 2 4323-8, LIPNF, 3084-1 ####[facility]CLIA [id number] [place] [address] [place] TRIGLYCERIDES, NF 63 mg/dL Normal <150 [facility] Comment on above: Order Comment: Speci men Type: BLOOD SPECIMENOrdering Facility: [facility] Address: [address] [place] [address] Result Comment: <150 mg/dL, Normal 150-199 mg/dL, Borderline high 200-499 mg/dL, High >499 mg/dL, Very high Performed By: #### 2 4323-8, LIPNF, 3083-1 ####[facility] LABCLIA [id number] [place] [address] [place] VLDL CHOLESTEROL, NF 13 mg/dL Normal <30 [facility] Comment on above: Order Comment: Speci men Type: BLOOD SPECIMENOrdering Facility: [facility] Address: [address] [place] [address] Performed By: #### 2 4323-8, LIPNF, 3084-1 ####[facility]CLIA [id number] [place] [address] [place] Urate SerPl-mCncon 4 Urate [Mass/Vol] 3.4 mg/dL Low 4.0-8.1 [facility] Comment on above: Order Comment: Speci men Type: BLOOD SPECIMENOrdering Facility: [facility] Address: [address] [place] [address] Performed By: #### 2 4323-8, LIPNF, 3084-1 ####[facility] LABCLIA [id number] [place] [id number] [place] [facility] CNOVon 10-02-2024 CNOV Office Visit (AKURFL ) MICHAEL MULLINS Gena ([id number]) 1940 M Date Time Provider Department 10/02/24 10:45 AM SHAJI GAONA During your visit today, we recorded the following information about you: Pulse Height 73/minute 1.626 m Shaji Gaona MD 10/02/2024 10:46 AM Signed ESTABLISHED PATIENT OFFICE VISIT PATIENT INFO: Michael Avery Susanna 84 year old HPI 10/02/2024 CC: bladder patient Lindsey presents with his today and remains on Cardura Nocturia 2-3 and daytime voiding every 2-3 hours and stream is good ever since his TURP in 2022 Dipstick urine without blood Low residual urine Is not interested in anything like Detrol etc. See me in 12 months for bladder scan Scores/PVR: Bladder scan/PVR: 5cc Past Urology Hx: 10/07/2023 CC: bph Presents with his and he feels still voiding very well and pleased Stop the Proscar but remains on Cardura and once again discussed option of stopping the Cardura and he sees his primary physician in a few weeks and they will see if that is okay Low residual urine and dipstick urine negative They want follow-up 12 months Bladder scan/PVR: 17cc ;; 06/07/2023 CC: bph Voiding on own and presents with his Very pleased with progress and remains on Cardura and Proscar He can stop the Proscar as has low residual urine Brady the Cardura and he can address with medical doctor to see if they still want him on it for medical reasons otherwise will eventually plan on stopping it from urology standpoint I will see him in 4 months to check residual urine Bladder scan/PVR: 48cc 05/03/2023 CC: cath He is doing self cath 3 times a day and not voiding in between Denies chest pain or shortness of breath Remains on Cardura and Proscar and ambulates with cane They want to move ahead with TURP and will schedule 2023 CC: cysto Patient presents with his for cystoscopy and ultrasound of prostate and he says a couple weeks ago he had an voiding trial but failed and no and offered or training with intermittent catheterization he says On med list-patient on Proscar and Cardura In November 2022-saw Lorenzo Carballo in residual urine was 0 cc Presents with his today Cystoscopy shows some BPH but not huge prostate He learn to do intermittent catheterization effectively and he wants to try that and see if starts voiding on own and see me back in 2 weeks for evaluation Gave UroLift information and also discussed TURP and both could be options but if he starts voiding on his own may be UroLift could be more of an option of TURP depending on their attitude Prostate used to be larger as noted below Patient ambulates with walker April 05, 2023-seen by Lorenzo Carballo- 82 year old male with a history of BPH for year and had been doing well on Proscar daily with no issues After his para-thyroid surgery in Nov 2022, has not been able to pass a TOV , he has had several attempted with voiding He would like to discuss possible TUR or Urolift if possible, so I ordered pre-tests and he will have them soon And then will be abl to discuss Uro-Lift vs TUR with surgeon Procedure: Performed a TOV. Bladder filled through craig with 200 ml of Sterile water/Saline, removing water from balloon the craig was removed and patient voided 0 ml. Assessment/Plan: > Craig catheter removal with failed TOV x 3 > on Cardura and Proscar , we discussed switching to Flomax , or CIC, but he is wanting to see if he can have Uro-Lift, so I will arrange the testing and consult Lorenzo Carballo, DAISY, [place], PA-C June 23, 2021-seen by Lorenzo Carballo- Patient here for 1 year follow-up. Feels fantastic. No voiding complaints. PSA - pending . Very stable. Patient prefers conservative management.has not take Proscar 5 mg for some time now Restart Proscar 5 mg June 29, 2015-seen by [facility] urology- 1 year follow-up previous prostate biopsy 1 year ago was negative. Feels fantastic. No nausea vomiting diarrhea fevers chills or weight loss. No blood pressures consistent with blood in urine. His P's XE Edita 4.2.8. Happy with his clinical status. I reviewed his previous negative biopsy. RADS: May 23, [id number] nign 2023-Cystoscopy/ultras ound prostate-volume 37.7 cc without enlarged middle lobe on sagittal view; no urethral stricture and mild trilobar BPH noted and there is a lot of white sediment in the bladder and hard to get complete visualization but there is trabeculation with some cellule formation and no obvious bladder mass but not Perfect visualization--Patient filled with 350 cc of fluid but unable to void and then able to learn intermittent catheterization May 10, 2014-ultrasound/biopsy of prostate-[facility] urology--- Volume 57 cc Creatinine Date Value Ref Range Status 12/26/2023 3.41 ( (more content not included)... Normal [facility] UA DIP, URINE (POC)on 2023 BILIRUBIN UA (POCT) Negative Negative [facility] CLARITY UA (POCT) Clear [facility] COLOR UA (POCT) Yellow [facility] GLUCOSE UA (POCT) Negative Negative mg/dL [facility] Hemoglobin Ql (U) Negative Negative [facility] Interpretation and review of laboratory results Abnormal [facility] KETONE UA (POCT) Negative Negative mg/dL [facility] LEUKOCYTES UA (POCT) Trace Abnormal Negative [facility] NITRITE UA (POCT) Negative Negative [facility] PH UA (POCT) 5.5 4.5 - 8.0 [facility] Protein Ql (U) 100 mg/dL Abnormal Negative [facility] SPECIFIC GRAVITY UA (POCT) 1.025 1.005 - 1.030 [facility] UROBILINOGEN UA (POCT) 0.2 Jocelyn l E.U./dL [facility] Location:[facility], [address] [place] [address], [place], [place], [address] [place] [address] POINT OF CARE [facility] US MSR POST-VOID RESID URINE on 10-02-2024 PVR-5 Pérez Doran MA [facility] CNOVon 09-28-2024 CNOV Office Visit (PODIWS ) MIHCAEL MULLINS ([id number]) 1940 M Date Time Provider Department 09/28/24 2:15 PM LORI GOODMAN PODIWS During your visit today, we recorded the following information about you: Lashay Brooke LPN 09/28/2024 10:22 PM Signed AMB ROOMING INTAKE FLOWSHEET DATA Patient presents with: Left Foot - Established Patient, Follow Up, Diabetic Foot Care Right Foot - Established Patient, Follow Up, Diabetic Foot Care TRIXIE Chapman Matthew 09/28/2024 10:22 PM Signed Last saw pcp: 11/06/23 Subjective: Patient presents to clinic c/o painful toenails. They state that the nails are especially painful with shoe gear and pressure. Patient states that nails 1-5 b/l are painful. Patient admits to being diabetic. . No other pedal complaints at this time. Patient states no change in medications or medical history since last visit. Objective: Patient presents to clinic ambulating in sneakers Vasc: DP and PT pulses are palpable bilateral. CFT is less than 5 seconds bilateral. Skin temperature is warm to cool proximal to distal bilateral. There is mild edema or varicosities noted. Neuro: Protective sensation is decreased to the foot and toes when tested with the 5.07 SWM bilateral. Vibratory sensation is absent at the hallux IPJ bilateral. The hallux is downgoing bilateral. Derm: Nails 1-5 b/l are painful, discolored-yellow, thick, crumbly, dystrophic and with subungal debris. Skin is of normal turgor, texture and hair growth is decreased bilateral. There are no hyperkeratosis, ulcerations, scars, verruca or other lesions noted. Ortho: Muscle strength is 5/5 for all pedal groups tested. Ankle joint DF is decresaed with the knee extended with no pain or crepitus noted. 1st MPJ ROM is decreased bilateral. Hammertoes are present to lesser toes of b/l feet Assessment: (B35.1) Onychomycosis (primary encounter diagnosis) (M79.675) Pain in toe of left foot (M79.674) Pain in toe of right foot (E11.42) Diabetic polyneuropathy associated with type 2 diabetes mellitus (HCC) (M20.42) Hammer toe of left foot Plan: Patient was seen and evaluated. Nails 1-5 bilateral were debrided in length and thickness. Patient was instructed on the continued importance of diabetic foot care along with proper diet and keeping their blood sugar under control to prevent complications. Stressed the importance of avoiding barefoot walking, wearing good shoes and inspection of feet daily. Recommend wider shoes for hammertoe. Patient is to RTC in 3-4 months. Lori Goodman DPM Referring Provider: LORI GOODMAN [[id number]] Allergies As of Date: 09/28/2024 Noted Allergy Reaction ALTACE (RAMIPRIL) 09/18/2005 GABAPENTIN 04/06/2013 14 - Other: See Comments Comments: tremors TOPROL XL (METOPROLOL SUCCINATE) 09/18/2005 Date Reviewed: 09/28/2024 Reviewed by: Lashay Brooke LPN - Fully Assessed Reason for Visit: Established Patient [175] Follow Up [171] Diabetic Foot Care [916] Established Patient [175] Follow Up [171] Diabetic Foot Care [916] Primary Visit Diagnosis:Onychomycosi s [B35.1] Other Visit Diagnoses:Pain in toe of left foot [M79.675] Pain in toe of right foot [M79.674] Diabetic polyneuropathy associated with type 2 diabetes mellitus (HCC) [E11.42] Hammer toe of left foot [M20.42] Prescriptions as of 09/28/2024 - donepezil (ARICEPT) 10 mg tablet Take 1 tablet by mouth daily at bedtime. - losartan (COZAAR) 50 mg tablet Take 1 tablet by mouth once daily. - allopurinol (ZYLOPRIM) 300 mg tablet TAKE 1 TABLET BY MOUTH ONCE DAILY. FOR GOUT. - PARoxetine (PAXIL) 10 mg tablet Take 1 tablet by mouth once daily. - doxazosin (CARDURA) 8 mg tablet take 1 tablet by mouth at bedtime - atorvastatin (LIPITOR) 10 mg tablet Take 1 tablet by mouth once daily. - memantine (NAMENDA) 10 mg tablet Take 1 tablet by mouth two times a day. - sulfamethoxazole-trime thoprim (BACTRIM DS) 800-160 mg per tablet Take 1 tablet by mouth twice daily. - Cholecalciferol, Vitamin D3, 25 mcg (1,000 unit) cap Take 1,000 Units by mouth once daily. - calcium carbonate (TUMS) 500 mg chew Take 1 tablet by mouth every hour as needed. - aucarea-uabukekib-pusg min D3 (CALCIUM 500+D) 500 mg-5 mcg (200 unit) per tablet Take 1 tablet by mouth three times daily with meals. - acetaminophen (TYLENOL EXTRA STRENGTH) 500 mg tablet Take 1 tablet by mouth every 6 hours as needed for pain. - IFEREX 150 150 mg iron capsule Take 150 mg by mouth once daily. 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 Normal [facility] Juan Miguel 06-30-2024 [facility] MICHAEL MULLINS ([id number]) 1940 M Date Time Provider Department 06/30/24 ANTONY ESPINOZA [facility] During your visit today, we recorded the following information about you: Skye Arnold 06/30/2024 2:19 PM Signed Patient requesting medication that is : losartan (COZAAR) 50 mg tablet ( Last office visit: 05-20-24 Future appt scheduled: No PHARMACY: [facility] Allergies As of Date: 06/30/2024 Noted Allergy Reaction ALTACE (RAMIPRIL) 09/18/2005 GABAPENTIN 04/06/2013 14 - Other: See Comments Comments: tremors TOPROL XL (METOPROLOL SUCCINATE) 09/18/2005 Date Reviewed: 05/26/2024 Reviewed by: Prabha Mayo RN - Fully Assessed Reason for Visit: requesting medication that is [Other] Order(s):losartan (COZAAR) 50 mg tabletTake 1 tablet by mouth once daily.Disp: 90 tabletRfl: 1 Prescriptions as of 06/30/2024 - donepezil (ARICEPT) 10 mg tablet Take 1 tablet by mouth daily at bedtime. - losartan (COZAAR) 50 mg tablet Take 1 tablet by mouth once daily. - allopurinol (ZYLOPRIM) 300 mg tablet TAKE 1 TABLET BY MOUTH ONCE DAILY. FOR GOUT. - PARoxetine (PAXIL) 10 mg tablet Take 1 tablet by mouth once daily. - doxazosin (CARDURA) 8 mg tablet take 1 tablet by mouth at bedtime - atorvastatin (LIPITOR) 10 mg tablet Take 1 tablet by mouth once daily. - memantine (NAMENDA) 10 mg tablet Take 1 tablet by mouth two times a day. - sulfamethoxazole-trime thoprim (BACTRIM DS) 800-160 mg per tablet Take 1 tablet by mouth twice daily. - Cholecalciferol, Vitamin D3, 25 mcg (1,000 unit) cap Take 1,000 Units by mouth once daily. - calcium carbonate (TUMS) 500 mg chew Take 1 tablet by mouth every hour as needed. - qglsvxy-wjfssisys-pjmb min D3 (CALCIUM 500+D) 500 mg-5 mcg (200 unit) per tablet Take 1 tablet by mouth three times daily with meals. - acetaminophen (TYLENOL EXTRA STRENGTH) 500 mg tablet Take 1 tablet by mouth every 6 hours as needed for pain. - IFEREX 150 150 mg iron capsule Take 150 mg by mouth once daily. 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 Primary hypertension [I10] 09/13/2006 Anxiety state [F41.1] 12/06/2008 Lumbar spinal stenosis [M48.061] 12/06/2008 Coronary atherosclerosis [I25.10] 10/18/2009 Arteriosclerosis of both carotid arteries [I65.*10/18/2009 Hammer toe [M20.40] 09/01/2010 Gout [M10.9] 08/25/2012 Benign prostatic hyperplasia with urinary reten*01/06/2013 Lumbar disc disease with radiculopathy [M51.16] 04/06/2013 Inguinal hernia [K40.90] 04/08/2014 BPH (benign prostatic hyperplasia) [N40.0] 04/21/2014 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] 02/07/2015 Hyperlipidemia LDL goal <100 [E78.5] 09/13/2015 Retinal hemorrhage [H35.60] 09/13/2015 Mild cognitive impairment with memory loss [G31*09/13/2015 Degenerative disc disease, cervical [M50.30] 12/09/2015 Elevated prostate specific antigen (PSA) [R97.2*06/20/2016 Controlled type 2 diabetes mellitus with microa*07/24/2016 LBBB (left bundle branch block) [I44.7] 06/03/2018 03/25/2023 Cardiomyopathy, nonischemic (HCC) [I42.8] 07/24/2018 Personal history of fall [Z91.81] 07/28/2020 03/25/2023 Elevated alkaline phosphatase level [R74.8] 01/10/2021 Shortness of breath [R06.02] 10/30/2021 03/25/2023 Type 2 diabetes mellitus, without long-term cur*05/03/2022 JOELLE (iron deficiency anemia) [D50.9] 02/15/2023 After care [Z51.89] 03/08/2023 Nocturia [R35.1] 2023 Poor urinary stream [R39.12] 2023 Pre-op examination [Z01.818] 05/07/2023 05/20/2023 Incomplete bladder emptying [R33.9] 05/07/2023 BPH with urinary obstruction [N40.1, N13.8] 05/23/2023 Acute hypoxemic respiratory failure due to COVI*12/09/2023 Chronic systolic heart failure (HCC) [I50.22] 12/09/2023 Prescriptions ordered this encounter Disp Refills Start End LOSARTAN 50 MG TABLET 90 t* 1 06/30/2024 12/27/2024 Route: ORAL Sig: Take 1 tablet by mouth once daily. Medications Discontinued During This Encounter Prescriptions - losartan (COZAAR) 50 mg tablet (Discontinued) Take 1 tablet by mouth once daily. - finasteride (PROSCAR) 5 mg tablet (Discontinued) Take 1 tablet by mouth once daily. Encounter Status:Closed by ANTONY ESPINOZA on 06/30/24 [facility] CNOVon 05-26-2024 CNOV Office Visit (PODIWS ) MICHAEL MULLINS ([id number]) 1940 M Date Time Provider Department 05/26/24 8:00 AM LORI GOODMAN PODIWS During your visit today, we recorded the following information about you: Prabha Mayo, TRACY 05/26/2024 8:25 AM Signed Patient presents with: Left Foot - Established Patient, Follow Up, Diabetic Foot Care Right Foot - Established Patient, Follow Up, Diabetic Foot Care Patient presents for follow up diabetic foot/nail care. SAMANTHA 02/20/24 Lori Goodman 05/26/2024 8:25 AM Signed Last saw pcp: 05/20/23 Subjective: Patient presents to clinic c/o painful toenails. They state that the nails are especially painful with shoe gear and pressure. Patient states that nails 1-5 b/l are painful. Patient admits to being diabetic. No other pedal complaints at this time. Patient states no change in medications or medical history since last visit. Objective: Patient presents to clinic ambulating in nike tennis shoes Vasc: DP and PT pulses are palpable bilateral. CFT is less than 5 seconds bilateral. Skin temperature is warm to cool proximal to distal bilateral. There is no edema or varicosities noted. Neuro: Protective sensation is intact to the foot and toes when tested with the 5.07 SWM bilateral. Vibratory sensation is decreased at the hallux IPJ bilateral. The hallux is downgoing bilateral. Derm: Nails 1-5 b/l are painful, discolored-yellow, thick, crumbly, dystrophic and with subungal debris. Skin is of normal turgor, texture and hair growth is present bilateral. There are callus to b/l hallux. no ulcerations, scars, verruca or other lesions noted. Ortho: Muscle strength is 5/5 for all pedal groups tested. Ankle joint DF is decreased with the knee extended with no pain or crepitus noted. 1st MPJ ROM is decreased bilateral. Hammertoes are present to lesser toes of b/l feet Assessment: (B35.1) Onychomycosis (primary encounter diagnosis) (M79.675) Pain in toe of left foot (M79.674) Pain in toe of right foot (L84) Callus of foot (E11.42) Diabetic polyneuropathy associated with type 2 diabetes mellitus (HCC) (M20.42) Hammer toe of left foot Plan: Patient was seen and evaluated. Nails 1-5 bilateral were debrided in length and thickness. Callus reduced to b/l hallux with dremmel Patient was instructed on the continued importance of diabetic foot care along with proper diet and keeping their blood sugar under control to prevent complications. Stressed the importance of avoiding barefoot walking, wearing good shoes and inspection of feet. Patient is to RTC in 3-4 months. Lori Goodman DPM Referring Provider: LORI GOODMAN [[id number]] Allergies As of Date: 05/26/2024 Noted Allergy Reaction ALTACE (RAMIPRIL) 09/18/2005 GABAPENTIN 04/06/2013 14 - Other: See Comments Comments: tremors TOPROL XL (METOPROLOL SUCCINATE) 09/18/2005 Date Reviewed: 05/26/2024 Reviewed by: Prabha Mayo RN - Fully Assessed Reason for Visit: Established Patient [175] Follow Up [171] Diabetic Foot Care [916] Established Patient [175] Follow Up [171] Diabetic Foot Care [916] Primary Visit Diagnosis:Onychomycosi s [B35.1] Other Visit Diagnoses:Pain in toe of left foot [M79.675] Pain in toe of right foot [M79.674] Callus of foot [L84] Diabetic polyneuropathy associated with type 2 diabetes mellitus (HCC) [E11.42] Hammer toe of left foot [M20.42] Prescriptions as of 05/26/2024 - allopurinol (ZYLOPRIM) 300 mg tablet TAKE 1 TABLET BY MOUTH ONCE DAILY. FOR GOUT. - PARoxetine (PAXIL) 10 mg tablet Take 1 tablet by mouth once daily. - doxazosin (CARDURA) 8 mg tablet take 1 tablet by mouth at bedtime - losartan (COZAAR) 50 mg tablet Take 1 tablet by mouth once daily. - atorvastatin (LIPITOR) 10 mg tablet Take 1 tablet by mouth once daily. - donepezil (ARICEPT) 10 mg tablet Take 1 tablet by mouth daily at bedtime. - memantine (NAMENDA) 10 mg tablet Take 1 tablet by mouth two times a day. - sulfamethoxazole-trime thoprim (BACTRIM DS) 800-160 mg per tablet Take 1 tablet by mouth twice daily. - Cholecalciferol, Vitamin D3, 25 mcg (1,000 unit) cap Take 1,000 Units by mouth once daily. - calcium carbonate (TUMS) 500 mg chew Take 1 tablet by mouth every hour as needed. - msejriv-sdfkvqtxt-dmle min D3 (CALCIUM 500+D) 500 mg-5 mcg (200 unit) per tablet Take 1 tablet by mouth three times daily with meals. - acetaminophen (TYLENOL EXTRA STRENGTH) 500 mg tablet Take 1 tablet by mouth every 6 hours as needed for pain. - IFEREX 150 150 mg iron capsule Take 150 mg by mouth once daily. - finasteride (PROSCAR) 5 mg tablet Take 1 tablet by mouth once daily. 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 Normal [facility] CBC W/Diff, Automatedon 06-2 -2023 Absolute Lymph 2.24 X10 3/uL Normal 0.83-4.51 [facility] Comment on above: Performed By: #### L 504.2610, L503.6550, L500.4050, L503.6030, L100.0100 #### [facility] [address] [place], [address] Absolute Neut 5.9 X10 3/uL Normal 2.0-7.7 [facility] Comment on above: Performed By: #### L 504.2610, L503.6550, L500.4050, L503.6030, L100.0100 #### [facility] [address] [place], [address] Basophils/100 WBC (Bld) 0.6 % Normal 0-1 [facility] Comment on above: Performed By: #### L 504.2610, L503.6550, L500.4050, L503.6030, L100.0100 #### [facility] [address] [place], [address] Eosinophils/100 WBC (Bld) 2.1 % Normal 0-5 [facility] Comment on above: Performed By: #### L 504.2610, L503.6550, L500.4050, L503.6030, L100.0100 #### [facility] [address] [place], [address] Erythrocyte distribution width (RBC) [Ratio] 14.9 % High 11.6-14.6 [facility] Comment on above: Performed By: #### L 504.2610, L503.6550, L500.4050, L503.6030, L100.0100 #### [facility] [address] [place], [address] Hematocrit (Bld) [Volume fraction] 36.5 % Low 40-54 [facility] Comment on above: Performed By: #### L 504.2610, L503.6550, L500.4050, L503.6030, L100.0100 #### [facility] [address] [place], [address] Hemoglobin (Bld) [Mass/Vol] 11.7 g/dL Low 13.0-16.5 [facility] Comment on above: Performed By: #### L 504.2610, L503.6550, L500.4050, L503.6030, L100.0100 #### [facility] [address] [place], [address] IG% 0.200 Normal 0.0-0.9 [facility] Comment on above: Result Comment: IG% - Immature Granulocytes (promyelocytes, myelocytes and metamyelocytes) > 1% indicates that a LEFT SHIFT is Present. Performed By: #### L 504.2610, L503.6550, L500.4050, L503.6030, L100.0100 #### [facility] [address] [place], [address] Lymphocytes/100 WBC (Bld) 25.0 % Normal 19-41 [facility] Comment on above: Performed By: #### L 504.2610, L503.6550, L500.4050, L503.6030, L100.0100 #### [facility] [address] [place], [address] MCH (RBC) [Entitic mass] 32.1 pg High 27.0-32.0 [facility] Comment on above: Performed By: #### L 504.2610, L503.6550, L500.4050, L503.6030, L100.0100 #### [facility] [address] [place], [address] MCHC (RBC) [Mass/Vol] 32.1 g/dL Normal 32-36 [facility] Comment on above: Performed By: #### L 504.2610, L503.6550, L500.4050, L503.6030, L100.0100 #### [facility] [address] [place], [address] MCV (RBC) [Entitic vol] 100.0 fL High 80-94 [facility] Comment on above: Performed By: #### L 504.2610, L503.6550, L500.4050, L503.6030, L100.0100 #### [facility] [address] [place], [address] Monocytes/100 WBC (Bld) 6.1 % Normal 0-10 [facility] Comment on above: Performed By: #### L 504.2610, L503.6550, L500.4050, L503.6030, L100.0100 #### [facility] [address] [place], [address] Neutrophils/100 WBC (Bld) 66.0 % Normal 47-70 [facility] Comment on above: Performed By: #### L 504.2610, L503.6550, L500.4050, L503.6030, L100.0100 #### [facility] [address] [place], [address] Nucleated RBC (Bld) [#/Vol] 0 10*3/uL Normal 0-5 [facility] Comment on above: Performed By: #### L 504.2610, L503.6550, L500.4050, L503.6030, L100.0100 #### [facility] [address] [place], [address] Platelet mean volume (Bld) [Entitic vol] 10.9 fL Normal 6.2-12.0 [facility] Comment on above: Performed By: #### L 504.2610, L503.6550, L500.4050, L503.6030, L100.0100 #### [facility] [address] [place], [address] Platelets (Bld) [#/Vol] 188 10*3/uL Normal 150-450 [facility] Comment on above: Performed By: #### L 504.2610, L503.6550, L500.4050, L503.6030, L100.0100 #### [facility] [address] [place], [address] RBC (Bld) [#/Vol] 3.65 10*6/uL Low 4.6-6.2 [facility] Comment on above: Performed By: #### L 504.2610, L503.6550, L500.4050, L503.6030, L100.0100 #### [facility] [address] [place], [address] RDW SD 54.5 fl High 35.1-43.9 [facility] Comment on above: Performed By: #### L 504.2610, L503.6550, L500.4050, L503.6030, L100.0100 #### [facility] [address] [place], [address] WBC (Bld) [#/Vol] 9.0 10*3/uL Normal 4.4-11.0 [facility] Comment on above: Performed By: #### L 504.2610, L503.6550, L500.4050, L503.6030, L100.0100 #### [facility] [address] [place], [address] Comprehensive Metabolic Prof [facility] 05-12-2024 Albumin [Mass/Vol] 3.7 g/dL Normal 3.2-5.0 [facility] Comment on above: Order Comment: 1 Performed By: #### L 504.2610, L503.6550, L500.4050, L503.6030, L100.0100 #### [facility] [address] [place], [address] Albumin/Globulin [Mass ratio] 1.3 {ratio} Normal 0.9-2.4 [facility] Comment on above: Order Comment: 1 Performed By: #### L 504.2610, L503.6550, L500.4050, L503.6030, L100.0100 #### [facility] [address] [place], [address] ALK P 139 U/L High 45-117 [facility] Comment on above: Order Comment: 1 Performed By: #### L 504.2610, L503.6550, L500.4050, L503.6030, L100.0100 #### [facility] [address] [place], [address] ALT [Catalytic activity/Vol] 46 U/L Normal 16-61 [facility] Comment on above: Order Comment: 1 Performed By: #### L 504.2610, L503.6550, L500.4050, L503.6030, L100.0100 #### [facility] [address] [place], [address] AST [Catalytic activity/Vol] 49 U/L High 15-37 [facility] Comment on above: Order Comment: 1 Performed By: #### L 504.2610, L503.6550, L500.4050, L503.6030, L100.0100 #### [facility] [address] [place], [address] Bilirubin [Mass/Vol] 0.60 mg/dL Normal 0.20-1.00 [facility] Comment on above: Order Comment: 1 Result Comment: For patients on eltrombopag therapy, use of Dimension Jay TBIL is not recommended. Performed By: #### L 504.2610, L503.6550, L500.4050, L503.6030, L100.0100 #### [facility] [address] [place], [address] BUN/CRE 16.1 RATIO Normal 10-20 [facility] Comment on above: Order Comment: 1 Performed By: #### L 504.2610, L503.6550, L500.4050, L503.6030, L100.0100 #### [facility] [address] [place], [address] CA,Total 8.5 mg/dL Normal 8.5-10.1 [facility] Comment on above: Order Comment: 1 Performed By: #### L 504.2610, L503.6550, L500.4050, L503.6030, L100.0100 #### [facility] [address] [place], [address] Chloride [Moles/Vol] 112 mmol/L High 98-107 [facility] Comment on above: Order Comment: 1 Performed By: #### L 504.2610, L503.6550, L500.4050, L503.6030, L100.0100 #### [facility] [address] [place], [address] CO2 [Moles/Vol] 26.0 mmol/L Normal 21.0-32.0 [facility] Comment on above: Order Comment: 1 Performed By: #### L 504.2610, L503.6550, L500.4050, L503.6030, L100.0100 #### [facility] [address] [place], [address] Creatinine [Mass/Vol] 1.86 mg/dL High 0.70-1.30 [facility] Comment on above: Order Comment: 1 Result Comment: The validity of the calculated GFR GFRAA in patients over 70 years has not been determined. Clinical correlation is essential. Performed By: #### L 504.2610, L503.6550, L500.4050, L503.6030, L100.0100 #### [facility] [address] [place], [address] ECRCL 23.97 ml/min Normal [facility] Comment on above: Order Comment: 1 Performed By: #### L 504.2610, L503.6550, L500.4050, L503.6030, L100.0100 #### [facility] [address] [place], [address] EST GFR - AA 45 mL/min Low >60 [facility] Comment on above: Order Comment: 1 Result Comment: Afri can Israeli GFR Calc Performed By: #### L 504.2610, L503.6550, L500.4050, L503.6030, L100.0100 #### [facility] [address] [place], [address] GAP 2 Low 5-15 [facility] Comment on above: Order Comment: 1 Performed By: #### L 504.2610, L503.6550, L500.4050, L503.6030, L100.0100 #### [facility] [address] [place], [address] GFR/1.73 sq M.predicted among non-blacks MDRD (S/P/Bld) [Vol rate/Area] 37 mL/min/{1.73_m2} Low >60 [facility] Comment on above: Order Comment: 1 Result Comment: Non- GFR Calc Performed By: #### L 504.2610, L503.6550, L500.4050, L503.6030, L100.0100 #### [facility] [address] [place], [address] Globulin (S) [Mass/Vol] 2.9 g/dL Normal 2.2-4.2 [facility] Comment on above: Order Comment: 1 Performed By: #### L 504.2610, L503.6550, L500.4050, L503.6030, L100.0100 #### [facility] [address] [place], [address] Glucose [Mass/Vol] 147 mg/dL High 74-106 [facility] Comment on above: Order Comment: 1 Result Comment: Fast ing Glucose result greater than or equal to 126 mg/dL suggests DIABETES MELLITUS per A.D.A. criteria. Performed By: #### L 504.2610, L503.6550, L500.4050, L503.6030, L100.0100 #### [facility] [address] [place], [address] Potassium [Moles/Vol] 4.7 mmol/L Normal 3.5-5.1 [facility] Comment on above: Order Comment: 1 Performed By: #### L 504.2610, L503.6550, L500.4050, L503.6030, L100.0100 #### [facility] [address] [place], [address] Sodium [Moles/Vol] 140 mmol/L Normal 136-145 [facility] Comment on above: Order Comment: 1 Performed By: #### L 504.2610, L503.6550, L500.4050, L503.6030, L100.0100 #### [facility] [address] [place], [address] T PROT 6.6 g/dL Normal 6.4-8.2 [facility] Comment on above: Order Comment: 1 Performed By: #### L 504.2610, L503.6550, L500.4050, L503.6030, L100.0100 #### [facility] [address] [place], [address] Urea nitrogen [Mass/Vol] 30 mg/dL High 7-18 [facility] Comment on above: Order Comment: 1 Performed By: #### L 504.2610, L503.6550, L500.4050, L503.6030, L100.0100 #### [facility] [address] [place], [address] Ferritinon 05-12-2024 Ferritin [Mass/Vol] 86 ng/mL Normal 26-388 [facility] Comment on above: Order Comment: 1 Performed By: #### L 504.2610, L503.6550, L500.4050, L503.6030, L100.0100 #### [facility] [address] [place], [address] Iron+Iron Binding Capacityon 05-12-2024 Iron [Mass/Vol] 75 ug/dL Normal 65-175 [facility] Comment on above: Order Comment: 1 Performed By: #### L 504.2610, L503.6550, L500.4050, L503.6030, L100.0100 #### [facility] [address] [place], [address] IRON SATURATION 27.4 Normal 15.0-55.0 [facility] Comment on above: Order Comment: 1 Performed By: #### L 504.2610, L503.6550, L500.4050, L503.6030, L100.0100 #### [facility] [address] [place], [address] TIBC 274 ug/dL Normal 250-450 [facility] Comment on above: Order Comment: 1 Performed By: #### L 504.2610, L503.6550, L500.4050, L503.6030, L100.0100 #### [facility] [address] [place], [address] LDHon 05-12-2024 LDH 204 U/L Normal 87-241 [facility] Comment on above: Order Comment: 1 Performed By: #### L 504.2610, L503.6550, L500.4050, L503.6030, L100.0100 #### [facility] [address] [place], [address] Oncology Visit Reporton 04-19 Oncology Visit Report [facility] [address] [place] [address] OFFICE VISIT Date of Service: 05/12/24 1121 MR#: [id number] Acct: [id number] Name: MICHAEL MULLINS Rep #: [id number] : 1940 From: Dedrick Andrade MD Age/Sex: 84/M Location: [facility] [place] Status: Signed HPI Subjective Date of Service 05/12/24 Chief Complaint F/u for HCL History of Present Illness 84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 He underwent splenectomy at [facility] with full normalization of his pancytopenia. Relapsed in 1984 and received Pentostatin on an ECOG protocol. Since that time, he attained remission and has remained in remission ever since. Had R hip fx and was repaired on 08/20/2018. He is on observation, comes for follow up. Feels well. [facility] Medical History COVID-19 Former smoker Degenerative disc disease, cervical Benign prostate hyperplasia Left bundle branch block Anxiety Mild cognitive impairment with memory loss Alzheimer's disease Hypertension DM2 (diabetes mellitus, type 2) HTN (hypertension) Gout Heart failure with reduced ejection fraction Hairy cell leukemia Hyperlipidemia Surgical History History of parathyroid surgery Hx of splenectomy History of appendectomy H/O total hip arthroplasty Family History Mother Cancer Father Heart disease Hypertension Social History household members: spouse Smoking Status: Former smoker alcohol intake: never substance use type: does not use Intake Vital Signs 05/16/23 10:49 05/12/24 11:21 Height 5 ft 7 in 5 ft 7 in Weight: 63.645 kg BMI 21.9 BP 147/71 H Blood Pressure Location Lt brachial Position Sitting Respiration 18 Pulse 56 L Pulse Source Monitor Temp 98.2 F Temperature Source Temporal Artery Pulse Oximetry (%) 96 Oxygen Delivery Method room air Intake Is patient in pain?: No Allergies gabapentin Allergy (Verified 05/12/24 11:22) tremors metoprolol (From Toprol XL) Allergy (Verified 05/12/24 11:22) PT UNSURE OF REACTION ramipril (From Altace) Allergy (Verified 05/12/24 11:22) PT UNSURE OF REACTION Medications ???Medication ???Instructions ???Recorded ???Confirmed ???Type atorvastatin 10 mg tablet 10 mg PO QHS CHOLESTEROL 11/20/15 05/12/24 History doxazosin 1 mg tablet 1 mg PO QHS prostate 11/20/15 05/12/24 History donepezil 5 mg tablet 10 mg PO QHS memory 11/28/17 05/12/24 History paroxetine HCl 10 mg tablet 10 mg PO DAILY anxiety 11/28/17 05/12/24 History allopurinol 300 mg tablet 300 mg PO DAILY GOUT 04/30/18 05/12/24 History (Zyloprim) memantine 5 mg tablet 10 mg PO BID memory 05/26/21 05/12/24 History losartan 25 mg tablet 50 mg (2 x 25 mg) PO DAILY heart 07/14/21 05/12/24 Rx #0 tabs calcium carbonate-vitamin D3 1 tab PO/SL TID supplement 03/05/23 05/12/24 History ibuprofen 200 mg capsule 200 mg PO Q4H PRN Pain 03/05/23 05/12/24 History cholecalciferol (vitamin D3) 25 25 mcg PO DAILY 05/14/23 05/12/24 History mcg (1,000 unit) tablet naproxen sodium 220 mg tablet 220 mg PO BID PRN pain 05/14/23 05/12/24 History (Flanax (naproxen)) Have you fallen in the past year?: No Exam Physical Exam Narrative Walking with a cane. Const alert and no apparent distress HEENT head/scalp atraumatic and moist oral mucous membranes Resp normal respiratory effort, no retractions, no use of accessory muscles and clear to auscultation bilaterally Cardio regular rate, regular rhythm, S1 normal heart sound and S2 normal heart sound GI normal to inspection, nondistended, normoactive bowel sounds, soft to palpation, non-tender and non- distended Neuro oriented x3, CN's II-XII intact bilaterally and moves all extremities Coding Level of Care Code Off vis,est,level 3 Exam Problem Focused Diagnoses Hairy cell leukemia, in remission C91.41 Leukemia Active/Remission status: in remission Low ferritin level R79.0 Iron deficiency E61.1 Assessment and Plan Assessment and Plan (1) Hairy cell leukemia: Status: Chronic Qualifiers: Leukemia Active/Remission status: in remission Qualified Code(s): C91.41 - Hairy cell leukemia, in remission Comment: CBC within normal limits. Still in remission. Plan: To continue observation. (2) Low ferritin level: Status: Resolved Comment: Ferritin is 86 today, has been taking Oral iron. Plan: To do observation. (3) Iron deficiency: Status: Chronic Comment: Iron profile is normal today, Plan: To do observation Plan Details Follow Up: 12 Months Clinical Quality Measures Falls Risk Screenin (more content not included)... Normal [facility] 12-23-2023 [facility] Telephone (UROLAE) MICHAEL MULLINS ([id number]) 1940 M Date Time Provider Department 12/23/23 SHAJI GAONA (HISTORICAL)UROLAE During your visit today, we recorded the following information about you: Behzad Cage MA 12/23/2023 1:38 PM Signed Called pt and spoke with spouse/spouse states that he is ok without taking Proscar/spouse states he has been off of medication for a week and doing well NIKKI Betancourt Cma, Nichole 12/23/2023 1:52 PM Addendum This is the previous message from Dr. Gaona's Rx response- call the patient and see if he wants to remain on the Proscar and and if he does we can refill the Proscar at my last visit with him we discussed he is allowed to stop it [employer]ya [employer] Allergies As of Date: 12/23/2023 Noted Allergy Reaction ALTTHOM (RAMIPRIL) 09/18/2005 GABAPENTIN 04/06/2013 14 - Other: See Comments Comments: tremors TOPROL XL (METOPROLOL SUCCINATE) 09/18/2005 Date Reviewed: 12/09/2023 Reviewed by: Perlita Maurice, TRACY - Fully Assessed Prescriptions as of 12/23/2023 - losartan (COZAAR) 50 mg tablet Take 1 tablet by mouth once daily. - atorvastatin (LIPITOR) 10 mg tablet Take 1 tablet by mouth once daily. - donepezil (ARICEPT) 10 mg tablet Take 1 tablet by mouth daily at bedtime. - memantine (NAMENDA) 10 mg tablet Take 1 tablet by mouth two times a day. - sulfamethoxazole-trime thoprim (BACTRIM DS) 800-160 mg per tablet Take 1 tablet by mouth twice daily. - PARoxetine (PAXIL) 10 mg tablet Take 1 tablet by mouth once daily. - doxazosin (CARDURA) 8 mg tablet Take 1 tablet by mouth daily at bedtime. - Cholecalciferol, Vitamin D3, 25 mcg (1,000 unit) cap Take 1,000 Units by mouth once daily. - naproxen sodium (ANAPROX) 220 mg tablet Take 220 mg by mouth two times a day with meals. as needed for pain - calcium carbonate (TUMS) 500 mg chew Take 1 tablet by mouth every hour as needed. - lglqvli-lgmqlxzsb-fxev min D3 (CALCIUM 500+D) 500 mg-5 mcg (200 unit) per tablet Take 1 tablet by mouth three times daily with meals. - acetaminophen (TYLENOL EXTRA STRENGTH) 500 mg tablet Take 1 tablet by mouth every 6 hours as needed for pain. - allopurinol (ZYLOPRIM) 300 mg tablet TAKE 1 TABLET BY MOUTH ONCE DAILY. FOR GOUT. - metFORMIN (GLUCOPHAGE) 500 mg tablet Take 1 tablet by mouth twice daily with meals. - IFEREX 150 150 mg iron capsule Take 150 mg by mouth once daily. - finasteride (PROSCAR) 5 mg tablet Take 1 tablet by mouth once daily. 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 *09/13/2006 Primary hypertension [I10] 09/13/2006 Anxiety state [F41.1] 12/06/2008 Lumbar spinal stenosis [M48.061] 12/06/2008 Coronary atherosclerosis [I25.10] 10/18/2009 Arteriosclerosis of both carotid arteries [I65.*10/18/2009 Hammer toe [M20.40] 09/01/2010 Gout [M10.9] 08/25/2012 Benign prostatic hyperplasia with urinary reten*01/06/2013 Lumbar disc disease with radiculopathy [M51.16] 04/06/2013 Inguinal hernia [K40.90] 04/08/2014 BPH (benign prostatic hyperplasia) [N40.0] 04/21/2014 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] 02/07/2015 Hyperlipidemia LDL goal <100 [E78.5] 09/13/2015 Retinal hemorrhage [H35.60] 09/13/2015 Mild cognitive impairment with memory loss [G31*09/13/2015 Degenerative disc disease, cervical [M50.30] 12/09/2015 Elevated prostate specific antigen (PSA) [R97.2*06/20/2016 Controlled type 2 diabetes mellitus with microa*07/24/2016 LBBB (left bundle branch block) [I44.7] 06/03/2018 03/25/2023 Cardiomyopathy, nonischemic (HCC) [I42.8] 07/24/2018 Personal history of fall [Z91.81] 07/28/2020 03/25/2023 Elevated alkaline phosphatase level [R74.8] 01/10/2021 Shortness of breath [R06.02] 10/30/2021 03/25/2023 Type 2 diabetes mellitus, without long-term cur*05/03/2022 JOELLE (iron deficiency anemia) [D50.9] 02/15/2023 After care [Z51.89] 03/08/2023 Nocturia [R35.1] 2023 Poor urinary stream [R39.12] 2023 Pre-op examination [Z01.818] 05/07/2023 05/20/2023 Incomplete bladder emptying [R33.9] 05/07/2023 BPH with urinary obstruction [N40.1, N13.8] 05/23/2023 Acute hypoxemic respiratory failure due to COVI*12/09/2023 Chronic systolic heart failure (HCC) [I50.22] 12/09/2023 Encounter Status:Closed by BEHZAD CAGE on 12/23/23 Normal [facility] CNOVon 10-07-2023 CNOV Office Visit (AKURFL ) MICHAEL MULLINS ([id number]) 1940 M Date Time Provider Department 10/07/23 9:15 AM SHAJI GAONA During your visit today, we recorded the following information about you: Height 1.626 m Shaji Gaona MD 10/07/2023 6:25 PM Signed ESTABLISHED PATIENT OFFICE VISIT PATIENT INFO: Michael Avery Susanna 83 year old HPI 10/07/2023 CC: bph Presents with his and he feels still voiding very well and pleased Stop the Proscar but remains on Cardura and once again discussed option of stopping the Cardura and he sees his primary physician in a few weeks and they will see if that is okay Low residual urine and dipstick urine negative They want follow-up 12 months Scores/PVR: Bladder scan/PVR: 17cc Past Urology Hx: 06/07/2023 CC: bph Voiding on own and presents with his Very pleased with progress and remains on Cardura and Proscar He can stop the Proscar as has low residual urine Brady the Cardura and he can address with medical doctor to see if they still want him on it for medical reasons otherwise will eventually plan on stopping it from urology standpoint I will see him in 4 months to check residual urine Bladder scan/PVR: 48cc 05/03/2023 CC: cath He is doing self cath 3 times a day and not voiding in between Denies chest pain or shortness of breath Remains on Cardura and Proscar and ambulates with cane They want to move ahead with TURP and will schedule 2023 CC: cysto Patient presents with his for cystoscopy and ultrasound of prostate and he says a couple weeks ago he had an voiding trial but failed and no and offered or training with intermittent catheterization he says On med list-patient on Proscar and Cardura In November 2022-saw Lorenzo Carballo in residual urine was 0 cc Presents with his today Cystoscopy shows some BPH but not huge prostate He learn to do intermittent catheterization effectively and he wants to try that and see if starts voiding on own and see me back in 2 weeks for evaluation Gave UroLift information and also discussed TURP and both could be options but if he starts voiding on his own may be UroLift could be more of an option of TURP depending on their attitude Prostate used to be larger as noted below Patient ambulates with walker April 05, 2023-seen by Lorenzo Carballo- 82 year old male with a history of BPH for year and had been doing well on Proscar daily with no issues After his para-thyroid surgery in Nov 2022, has not been able to pass a TOV , he has had several attempted with voiding He would like to discuss possible TUR or Urolift if possible, so I ordered pre-tests and he will have them soon And then will be abl to discuss Uro-Lift vs TUR with surgeon Procedure: Performed a TOV. Bladder filled through craig with 200 ml of Sterile water/Saline, removing water from balloon the craig was removed and patient voided 0 ml. Assessment/Plan: > Craig catheter removal with failed TOV x 3 > on Cardura and Proscar , we discussed switching to Flomax , or CIC, but he is wanting to see if he can have Uro-Lift, so I will arrange the testing and consult Lorenzo Carballo, DAISY, [place], PA-C June 23, 2021-seen by Lorenzo Carballo- Patient here for 1 year follow-up. Feels fantastic. No voiding complaints. PSA - pending . Very stable. Patient prefers conservative management.has not take Proscar 5 mg for some time now Restart Proscar 5 mg June 29, 2015-seen by [facility] urology- 1 year follow-up previous prostate biopsy 1 year ago was negative. Feels fantastic. No nausea vomiting diarrhea fevers chills or weight loss. No blood pressures consistent with blood in urine. His P's XE Edita 4.2.8. Happy with his clinical status. I reviewed his previous negative biopsy. RADS: May 23, [id number] nign 2023-Cystoscopy/ultras ound prostate-volume 37.7 cc without enlarged middle lobe on sagittal view; no urethral stricture and mild trilobar BPH noted and there is a lot of white sediment in the bladder and hard to get complete visualization but there is trabeculation with some cellule formation and no obvious bladder mass but not Perfect visualization--Patient filled with 350 cc of fluid but unable to void and then able to learn intermittent catheterization May 10, 2014-ultrasound/biopsy of prostate-[facility] urology--- Volume 57 cc Creatinine Date Value Ref Range Status 05/10/2023 1.36 (H) 0.73 - 1.22 mg/dL Final PSA (ng/mL) Date Value 01/09/2021 4.43 01/12/2019 3.30 07/18/2017 3.05 08/21/2016 2.69 04/19/2016 2.80 06/13/2015 2.83 02/02/2015 2.72 04/08/2014 3.60 01/12/2013 3.00 12/14/2006 2.09 PSA Screening (ng/mL) Date Value 11/15/2022 1.78 11/06/2021 2.51 Color (no units) Date Value 03/10/2023 Yellow Clarity (no units) (more content not included)... Normal [facility] CBC W/Diff, Automatedon 06-2 Absolute Lymph 3.52 X10 3/uL Normal 0.83-4.51 [facility] Comment on above: Performed By: #### L 500.4050, L504.2610, L100.0100 #### [facility] [address] [place], [address] Absolute Neut 6.1 X10 3/uL Normal 2.0-7.7 [facility] Comment on above: Performed By: #### L 500.4050, L504.2610, L100.0100 #### [facility] [address] [place], [address] Basophils/100 WBC (Bld) 0.5 % Normal 0-1 [facility] Comment on above: Performed By: #### L 500.4050, L504.2610, L100.0100 #### [facility] [address] [place], [address] Eosinophils/100 WBC (Bld) 2.0 % Normal 0-5 [facility] Comment on above: Performed By: #### L 500.4050, L504.2610, L100.0100 #### [facility] [address] [place], [address] Erythrocyte distribution width (RBC) [Ratio] 15.6 % High 11.6-14.6 [facility] Comment on above: Performed By: #### L 500.4050, L504.2610, L100.0100 #### [facility] [address] [place], [address] Hematocrit (Bld) [Volume fraction] 36.9 % Low 40-54 [facility] Comment on above: Performed By: #### L 500.4050, L504.2610, L100.0100 #### [facility] [address] [place], [address] Hemoglobin (Bld) [Mass/Vol] 11.7 g/dL Low 13.0-16.5 [facility] Comment on above: Performed By: #### L 500.4050, L504.2610, L100.0100 #### [facility] [address] [place], [address] IG% 0.300 Normal 0.0-0.9 [facility] Comment on above: Result Comment: IG% - Immature Granulocytes (promyelocytes, myelocytes and metamyelocytes) > 1% indicates that a LEFT SHIFT is Present. Performed By: #### L 500.4050, L504.2610, L100.0100 #### [facility] [address] [place], [address] Lymphocytes/100 WBC (Bld) 32.7 % Normal 19-41 [facility] Comment on above: Performed By: #### L 500.4050, L504.2610, L100.0100 #### [facility] [address] [place], [address] MCH (RBC) [Entitic mass] 31.3 pg Normal 27.0-32.0 [facility] Comment on above: Performed By: #### L 500.4050, L504.2610, L100.0100 #### [facility] [address] [place], [address] MCHC (RBC) [Mass/Vol] 31.7 g/dL Low 32-36 [facility] Comment on above: Performed By: #### L 500.4050, L504.2610, L100.0100 #### [facility] [address] [place], [address] MCV (RBC) [Entitic vol] 98.7 fL High 80-94 [facility] Comment on above: Performed By: #### L 500.4050, L504.2610, L100.0100 #### [facility] [address] [place], [address] Monocytes/100 WBC (Bld) 7.9 % Normal 0-10 [facility] Comment on above: Performed By: #### L 500.4050, L504.2610, L100.0100 #### [facility] [address] [place], [address] Neutrophils/100 WBC (Bld) 56.6 % Normal 47-70 [facility] Comment on above: Performed By: #### L 500.4050, L504.2610, L100.0100 #### [facility] [address] [place], [address] Nucleated RBC (Bld) [#/Vol] 0 10*3/uL Normal 0-5 [facility] Comment on above: Performed By: #### L 500.4050, L504.2610, L100.0100 #### [facility] [address] [place], [address] Platelet mean volume (Bld) [Entitic vol] 9.9 fL Normal 6.2-12.0 [facility] Comment on above: Performed By: #### L 500.4050, L504.2610, L100.0100 #### [facility] [address] [place], [address] Platelets (Bld) [#/Vol] 262 10*3/uL Normal 150-450 [facility] Comment on above: Performed By: #### L 500.4050, L504.2610, L100.0100 #### [facility] [address] [place], [address] RBC (Bld) [#/Vol] 3.74 10*6/uL Low 4.6-6.2 [facility] Comment on above: Performed By: #### L 500.4050, L504.2610, L100.0100 #### [facility] [address] [place], [address] RDW SD 55.9 fl High 35.1-43.9 [facility] Comment on above: Performed By: #### L 500.4050, L504.2610, L100.0100 #### [facility] [address] [place], [address] WBC (Bld) [#/Vol] 10.8 10*3/uL Normal 4.4-11.0 [facility] Comment on above: Performed By: #### L 500.4050, L504.2610, L100.0100 #### [facility] [address] [place], [address] Comprehensive Metabolic Prof ilon 05-14-2023 Albumin [Mass/Vol] 3.5 g/dL Normal 3.2-5.0 [facility] Comment on above: Order Comment: 1 Performed By: #### L 500.4050, L504.2610, L100.0100 #### [facility] [address] [place], [address] Albumin/Globulin [Mass ratio] 1.0 {ratio} Normal 0.9-2.4 [facility] Comment on above: Order Comment: 1 Performed By: #### L 500.4050, L504.2610, L100.0100 #### [facility] [address] [place], [address] ALK P 139 U/L High 45-117 [facility] Comment on above: Order Comment: 1 Performed By: #### L 500.4050, L504.2610, L100.0100 #### [facility] [address] [place], [address] ALT [Catalytic activity/Vol] 23 U/L Normal 16-61 [facility] Comment on above: Order Comment: 1 Performed By: #### L 500.4050, L504.2610, L100.0100 #### [facility] [address] [place], [address] AST [Catalytic activity/Vol] 29 U/L Normal 15-37 [facility] Comment on above: Order Comment: 1 Performed By: #### L 500.4050, L504.2610, L100.0100 #### [facility] [address] [place], [address] Bilirubin [Mass/Vol] 0.50 mg/dL Normal 0.20-1.00 [facility] Comment on above: Order Comment: 1 Result Comment: For patients on eltrombopag therapy, use of Dimension Jay TBIL is not recommended. Performed By: #### L 500.4050, L504.2610, L100.0100 #### [facility] [address] [place], [address] BUN/CRE 15.8 RATIO Normal 10-20 [facility] Comment on above: Order Comment: 1 Performed By: #### L 500.4050, L504.2610, L100.0100 #### [facility] [address] [place], [address] CA,Total 8.8 mg/dL Normal 8.5-10.1 [facility] Comment on above: Order Comment: 1 Performed By: #### L 500.4050, L504.2610, L100.0100 #### [facility] [address] [place], [address] Chloride [Moles/Vol] 110 mmol/L High 98-107 [facility] Comment on above: Order Comment: 1 Performed By: #### L 500.4050, L504.2610, L100.0100 #### [facility] [address] [place], [address] CO2 [Moles/Vol] 25.0 mmol/L Normal 21.0-32.0 [facility] Comment on above: Order Comment: 1 Performed By: #### L 500.4050, L504.2610, L100.0100 #### [facility] [address] [place], [address] Creatinine [Mass/Vol] 1.46 mg/dL High 0.70-1.30 [facility] Comment on above: Order Comment: 1 Result Comment: The validity of the calculated GFR GFRAA in patients over 70 years has not been determined. Clinical correlation is essential. Performed By: #### L 500.4050, L504.2610, L100.0100 #### [facility] [address] [place], [address] ECRCL 37.10 ml/min Normal [facility] Comment on above: Order Comment: 1 Performed By: #### L 500.4050, L504.2610, L100.0100 #### [facility] [address] [place], [address] EST GFR - AA 60 mL/min Normal >60 [facility] Comment on above: Order Comment: 1 Result Comment: Afri can Israeli GFR Calc Performed By: #### L 500.4050, L504.2610, L100.0100 #### [facility] [address] [place], [address] GAP 5 Normal 5-15 [facility] Comment on above: Order Comment: 1 Performed By: #### L 500.4050, L504.2610, L100.0100 #### [facility] [address] [place], [address] GFR/1.73 sq M.predicted among non-blacks MDRD (S/P/Bld) [Vol rate/Area] 49 mL/min/{1.73_m2} Low >60 [facility] Comment on above: Order Comment: 1 Result Comment: Non- GFR Calc Performed By: #### L 500.4050, L504.2610, L100.0100 #### [facility] [address] [place], [address] Globulin (S) [Mass/Vol] 3.4 g/dL Normal 2.2-4.2 [facility] Comment on above: Order Comment: 1 Performed By: #### L 500.4050, L504.2610, L100.0100 #### [facility] [address] [place], [address] Glucose [Mass/Vol] 88 mg/dL Normal 74-106 [facility] Comment on above: Order Comment: 1 Performed By: #### L 500.4050, L504.2610, L100.0100 #### [facility] [address] [place], [address] Potassium [Moles/Vol] 4.5 mmol/L Normal 3.5-5.1 [facility] Comment on above: Order Comment: 1 Performed By: #### L 500.4050, L504.2610, L100.0100 #### [facility] [address] [place], [address] Sodium [Moles/Vol] 140 mmol/L Normal 136-145 [facility] Comment on above: Order Comment: 1 Performed By: #### L 500.4050, L504.2610, L100.0100 #### [facility] [address] [place], [address] T PROT 6.9 g/dL Normal 6.4-8.2 [facility] Comment on above: Order Comment: 1 Performed By: #### L 500.4050, L504.2610, L100.0100 #### [facility] [address] [place], [address] Urea nitrogen [Mass/Vol] 23 mg/dL High 7-18 [facility] Comment on above: Order Comment: 1 Performed By: #### L 500.4050, L504.2610, L100.0100 #### [facility] [address] [place], [address] Ferritinon 05-14-2023 Ferritin [Mass/Vol] 28 ng/mL Normal 26-388 [facility] Comment on above: Order Comment: 1 Performed By: #### L 500.4050, L504.2610, L100.0100 #### [facility] [address] [place], [address] Iron+Iron Binding Capacityon 05-14-2023 Iron [Mass/Vol] 38 ug/dL Low 65-175 [facility] Comment on above: Order Comment: 1 Performed By: #### L 500.4050, L504.2610, L100.0100 #### [facility] [address] [place], [address] IRON SATURATION 11.7 Low 15.0-55.0 [facility] Comment on above: Order Comment: 1 Performed By: #### L 500.4050, L504.2610, L100.0100 #### [facility] [address] [place], [address] TIBC 326 ug/dL Normal 250-450 [facility] Comment on above: Order Comment: 1 Performed By: #### L 500.4050, L504.2610, L100.0100 #### [facility] [address] [place], [address] LDHon 05-14-2023 LDH 177 U/L Normal 87-241 [facility] Comment on above: Order Comment: 1 Performed By: #### L 500.4050, L504.2610, L100.0100 #### [facility] [address] [place], [address] Oncology Visit Reporton 04-19 Oncology Visit Report [facility] [place] [facility] [address] [place] [address] OFFICE VISIT Date of Service: 05/14/23 1349 MR#: [id number] Acct: [id number] Name: MICHAEL MULLINS Rep #: [id number] : 1940 From: Dedrick Andrade MD Age/Sex: 83/M Location: [facility] [place] Status: Signed HPI Subjective Date of Service 05/14/23 Chief Complaint F/u for HCL History of Present Illness 83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 He underwent splenectomy at [facility] with full normalization of his pancytopenia. Relapsed in 1984 and received Pentostatin on an ECOG protocol. Since that time, he attained remission and has remained in remission ever since. Had R hip fx and was repaired on 08/20/2018. He is on observation, comes for follow up. Feels well. [facility] Medical History (Updated 05/14/23 @ 14:[address] Dedrick Andrade MD) Alzheimer's disease Anxiety Benign prostate hyperplasia COVID-19 Degenerative disc disease, cervical DM2 (diabetes mellitus, type 2) Former smoker Gout Hairy cell leukemia Heart failure with reduced ejection fraction HTN (hypertension) Hyperlipidemia Hypertension Left bundle branch block Mild cognitive impairment with memory loss Surgical History (Updated 05/14/23 @ 13:58 by Estrella Mendiola) H/O total hip arthroplasty History of appendectomy History of parathyroid surgery Hx of splenectomy Family History Mother Cancer Father Heart disease Hypertension Social History household members: spouse Smoking Status: Former smoker alcohol intake: never substance use type: does not use ROS Constitutional Constitutional: Reports fatigue; Denies chills or fever(s) Eyes Eyes: Denies blurry vision or change in vision ENT HEENT: Denies dizziness, dysphagia, loss taste/smell or nasal congestion Cardiovascular Cardiovascular: Reports dyspnea Respiratory/Chest Respiratory/Chest: Reports dyspnea; Denies chest tightness or cough Gastrointestinal Gastrointestinal: Denies abdominal pain, diarrhea, nausea or vomiting Genitourinary Genitourinary: Denies difficulty urinating Musculoskeletal Musculoskeletal: Denies arthralgias or back pain Integumentary Integumentary: Denies lesions, rash or skin ulcer Neurologic Neurologic: Reports confusion; Denies abnormal gait Psychiatric Psychiatric: Denies anxiety or depression Endocrine Endocrinology: Reports fatigue Hematologic/Lymphatic Hematologic/Lymphatic: Denies easy bleeding or easy bruising Intake Vital Signs 05/15/22 11:42 05/14/23 13:52 05/14/23 13:59 Height 5 ft 7 in 5 ft 4 in 5 ft 7 in Weight: 55.338 kg BMI 19.1 BP 138/67 H Blood Pressure Location Lt brachial Position Sitting Respiration 15 Pulse 51 L Pulse Source Monitor Temp 97.1 F L Temperature Source Temporal Artery Pulse Oximetry (%) 97 Oxygen Delivery Method room air Intake Gem Cutter Required: No Accompanied by: Is patient in pain?: No Allergies gabapentin Allergy (Verified 05/14/23 13:54) tremors metoprolol [From Toprol XL] Allergy (Verified 05/14/23 13:54) PT UNSURE OF REACTION ramipril [From Altace] Allergy (Verified 05/14/23 13:54) PT UNSURE OF REACTION Medications atorvastatin 10 mg tablet 10 mg PO QHS CHOLESTEROL 11/20/15 [History Confirmed 05/14/23] doxazosin 1 mg tablet 1 mg PO QHS prostate 11/20/15 [History Confirmed 05/14/23] metformin 500 mg tablet 500 mg PO BIDCM DM 11/20/15 [History Confirmed 05/14/23] donepezil 5 mg tablet 10 mg PO QHS memory 11/28/17 [History Confirmed 05/14/23] paroxetine HCl 10 mg tablet 10 mg PO DAILY anxiety 11/28/17 [History Confirmed 05/14/23] allopurinol 300 mg tablet (Zyloprim) 300 mg PO DAILY GOUT 04/30/18 [History Confirmed 05/14/23] memantine 5 mg tablet 10 mg PO BID memory 05/26/21 [History Confirmed 05/14/23] acetaminophen 500 mg tablet 500 mg PO Q6H PRN Pain 05/28/21 [History Confirmed 05/14/23] finasteride 5 mg tablet 5 mg PO DAILY 07/01/21 [History Confirmed 05/14/23] losartan 25 mg tablet 50 mg PO DAILY heart #0 tabs 07/14/21 [Rx Confirmed 05/14/23] polysaccharide iron complex 150 mg iron capsule (Ferrex) 150 mg PO DAILY #90 caps 05/17/22 [Rx Confirmed 05/14/23] calcium carbonate-vitamin D3 1 tab PO/SL TID supplement 03/05/23 [History Confirmed 05/14/23] ibuprofen 200 mg capsule 200 mg PO Q4H PRN Pain 03/05/23 [History Confirmed 05/14/23] calcium carbonate 200 mg calcium (500 mg) chewable tablet (Antacid (calcium carbonate)) 200 mg PO TID PRN 05/14/23 [History Confirmed 05/14/23] cholecalciferol (vitamin D3) 25 mcg (1,000 unit) tablet 25 mcg PO DAILY 05/14/23 [History Confirmed 05/14/23] naproxen sodium 220 mg tablet (Flanax (naproxen)) 220 mg PO BID PRN 0 (more content not included)... Normal [facility] US CYSTO/TRUS (POC) GUKI USE ONLYon 2023 [facility] COVID-19 virus antigen assay Ordered By: Dr. Griffiths on 03-08-2023 SARS-CoV-2 (COVID-19) Ag IA.rapid Ql (Resp) [facility] Glucose Glucometer (BldC) [M ass/Vol]Ordered By: Dr. Griffiths on 03-08-2023 Glucose [Mass/Vol] 136 mg/dL 74-106 [facility] Comment on above: MANAGEMENT OF PATIEN T CARE PER NURSING PROTOCOL Absolute lymphocyte countOrd ered By: Dr. Morgan on 03-06-2023 Lymphocytes Auto (Unsp spec) [#/Vol] 1.59 10*3/uL 0.83-4.51 [facility] Basophil percentageOrdered B y: Dr. Morgan on 03-06-2023 Basophils/100 WBC (Bld) 0.3 % 0-1 [facility] Bilirubin [Mass/Vol] 0.50 mg/dL 0.20-1.00 [facility] Comment on above: For patients on eltr ombopag therapy, use of Dimension Jay TBIL is not recommended. Chloride [Moles/Vol] 113 mmol/L 98-107 [facility] Eosinophils/100 WBC (Bld) 0.8 % 0-5 [facility] Glucose [Mass/Vol] 128 mg/dL 74-106 [facility] Comment on above: Fasting Glucose resu lt greater than or equal to 126 mg/dL suggests DIABETES MELLITUS per A.D.A. criteria. Neutrophils (Bld) [#/Vol] 9.0 10*3/uL 2.0-7.7 [facility] Neutrophils/100 WBC (Bld) 75.5 % 47-70 [facility] Potassium [Moles/Vol] 3.6 mmol/L 3.5-5.1 [facility] Protein [Mass/Vol] 6.1 g/dL 6.4-8.2 [facility] Sodium [Moles/Vol] 140 mmol/L 136-145 [facility] WBC (Bld) [#/Vol] 12.0 10*3/uL 4.4-11.0 [facility] Basophil percentage 2.5 mg/dL 2.5-4.9 [facility] Blood erythrocytes count (nu mber/volume)Ordered By: Dr. Morgan on 03-06-2023 RBC (Bld) [#/Vol] 3.38 10*6/uL 4.6-6.2 [facility] Blood hemoglobin measurement (mass/volume)Ordered By: Dr. Morgan on 03-06-2023 Hemoglobin (Bld) [Mass/Vol] 10.6 g/dL 13.0-16.5 [facility] Blood lymphocytes/100 leukoc ytesOrdered By: Dr. Morgan on 03-06-2023 Lymphocytes/100 WBC (Bld) 13.3 % 19-41 [facility] Blood monocytes/100 leukocyt esOrdered By: Dr. Morgan on 03-06-2023 Monocytes/100 WBC (Bld) 9.7 % 0-10 [facility] Blood platelet mean volumeOr dered By: Dr. Morgan on 03-06-2023 Platelet mean volume (Bld) [Entitic vol] 11.1 fL 6.2-12.0 [facility] COVID-19 virus antigen assay Ordered By: Dr. Morgan on 03-06-2023 SARS-CoV-2 (COVID-19) Ag IA.rapid Ql (Resp) Not detected Not Detect [facility] Comment on above: Normal Reference Ran ge: Not DetectedMethod:(RT-PCR) real-time reverse transcriptase PCRLuminex SARAHI Instrument*The Food and Drug Administration (FDA) has issued an Emergency Use Authorization (EAU) for the SARAHI SARS-CoV-2 Assay for the rapid detection of the virus that causes COVID-19. This test has been validated, but the FDAs independent review of this validation is pending.*Negative results do not preclude infection and should not be used as the sole basis for treatment or patient management. Optimum specimen types and timing for peak viral levels during infections caused by SARS-CoV-2 have not been determined. Collection of multiple specimens from the same patient may be necessary to detect the virus. The possibility of a false negative result should be considered if the patient has clinical presentation or has had recent exposure. Determination of erythrocyte mean corpuscular volume (MCV)Ordered By: Dr. Morgan on 03-06-2023 MCV (RBC) [Entitic vol] 97.6 fL 80-94 [facility] Hematocrit Auto (Bld) [Volum e fraction]Ordered By: Dr. Morgan on 03-06-2023 Hematocrit (Bld) [Volume fraction] 33.0 % 40-54 [facility] - Chemistry and C hemistry - challengeOrdered By: Dr. Morgan on 03-06-2023 ALP [Catalytic activity/Vol] 93 U/L 45-117 [facility] ALT [Catalytic activity/Vol] 31 U/L 16-61 [facility] CO2 [Moles/Vol] 27.0 mmol/L 21.0-32.0 [facility] Free T4 [Mass/Vol] 1.46 ng/dL 0.76-1.46 [facility] Globulin (S) [Mass/Vol] 3.5 g/dL 2.2-4.2 [facility] Urea nitrogen/Creatinine [Mass ratio] 19.7 mg/mg 10-20 [facility] Magnesium [Mass/Vol] 1.7 mg/dL 1.6-2.6 [facility] - Hematology and Cell countsOrdered By: Dr. Morgan on 03-06-2023 Erythrocyte distribution width (RBC) [Entitic vol] 54.5 fL 35.1-43.9 [facility] Erythrocyte distribution width (RBC) [Ratio] 15.2 % 11.6-14.6 [facility] Immature granulocytes/100 WBC (Bld) 0.400 % 0.0-0.9 [facility] Comment on above: IG% - Immature Granu locytes (promyelocytes, myelocytes and metamyelocytes) > 1% indicates that a LEFT SHIFT is Present. MCH (RBC) [Entitic mass] 31.4 pg 27.0-32.0 [facility] Nucleated RBC/100 WBC (Bld) [Ratio] 0 % 0-5 [facility] MCHC Auto (RBC) [Mass/Vol]Or dered By: Dr. Morgan on 03-06-2023 MCHC (RBC) [Mass/Vol] 32.1 g/dL 32-36 [facility] No Panel InformationOrdered By: Dr. Morgan on 03-06-2023 Estimated Creatinine Clearance Calc 33.16 ml/min [facility] Estimated GFR (MDRD) Amer 59 mL/min >60 [facility] Comment on above: GFR Calc Estimated GFR (MDRD) Non-Af Amer 49 mL/min >60 [facility] Comment on above: Non- GFR Calc Thyroid Stimulating Hormone (TSH) 0.26 uIU/mL 0.358-3.74 [facility] Platelets bldOrdered By: Dr. Morgan on 03-06-2023 Platelets (Bld) [#/Vol] 226 10*3/uL 150-450 [facility] Serum or plasma albumin devante urement (mass/volume)Ordered By: Dr. Morgan on 03-06-2023 Albumin [Mass/Vol] 2.6 g/dL 3.2-5.0 [facility] Serum or plasma albumin/glob ulin mass ratioOrdered By: Dr. Morgan on 03-06-2023 Albumin/Globulin [Mass ratio] 0.7 {ratio} 0.9-2.4 [facility] Serum or plasma calcium devante urement (mass/volume)Ordered By: Dr. Morgan on 03-06-2023 Calcium [Mass/Vol] 8.6 mg/dL 8.5-10.1 [facility] Serum or plasma creatinine m easurement (mass/volume)Ordered By: Dr. Morgan on 03-06-2023 Creatinine [Mass/Vol] 1.47 mg/dL 0.70-1.30 [facility] Comment on above: The validity of the calculated GFR & GFRAA in patients over 70 years has not been determined. Clinical correlation is essential. Serum or plasma urea nitroge n measurement (mass/volume)Ordered By: Dr. Morgan on 03-06-2023 Urea nitrogen [Mass/Vol] 29 mg/dL 7-18 [facility] Serum procalcitonin measurem entOrdered By: Dr. Morgan on 03-06-2023 Procalcitonin [Mass/Vol] 0.09 ng/mL 0.00-0.09 [facility] Comment on above: A procalcitonin (PCT ) level above 2.0 ng/mL on the first day of ICU admission is associated with a high risk for progression to severe sepsis and/or septic shock. A PCT level below 0.5 ng/mL on the first day of ICU admission is associated with a low risk for progression to severe and/or septic shock. Note: Concentrations <0.5 ng/mL do not exclude an infection on account of localized infections (without systemic signs) which can be associated with such low concentrations, or a systemic infection in its initial stages (<6 hours). Furthermore, increased procalcitonin can occur without infection. PCT concentrations between 0.5 and 2.0 ng/mL should be interpreted taking into account the patient's history. It is recommended to retest PCT within 6-24 hours if any concentrations <2 ng/mL are obtained. Thin prep Papanicolaou smear with manual screeningOrdered By: Dr. Morgan on 03-06-2023 Thin prep Papanicolaou smear with manual screening 65 U/L 15-37 [facility] Thin prep Papanicolaou smear with manual screening 0 5-15 [facility] Absolute lymphocyte countOrd ered By: ED PROVIDER on 03-05-2023 Lymphocytes Auto (Unsp spec) [#/Vol] 1.56 10*3/uL 0.83-4.51 [facility] Basophil percentageOrdered B y: ED PROVIDER on 03-05-2023 Basophil percentage 0-5 SEEN /hpf 0-[address] [facility] Basophils/100 WBC (Bld) 0.3 % 0-1 [facility] Chloride [Moles/Vol] 111 mmol/L 98-107 [facility] Eosinophils/100 WBC (Bld) 1.4 % 0-5 [facility] Glucose [Mass/Vol] 111 mg/dL 74-106 [facility] Comment on above: Fasting Glucose resu lt from 100 to 125 mg/dL suggests IMPAIRED HOMEOSTASIS per A.D.A. criteria. Neutrophils (Bld) [#/Vol] 8.9 10*3/uL 2.0-7.7 [facility] Neutrophils/100 WBC (Bld) 75.4 % 47-70 [facility] Potassium [Moles/Vol] 4.5 mmol/L 3.5-5.1 [facility] Sodium [Moles/Vol] 140 mmol/L 136-145 [facility] WBC (Bld) [#/Vol] 11.8 10*3/uL 4.4-11.0 [facility] Bilirubin Test strip Ql (U)O rdered By: ED PROVIDER on 03-05-2023 Bilirubin Ql (U) Negative Negative [facility] Blood erythrocytes count (nu mber/volume)Ordered By: ED PROVIDER on 03-05-2023 RBC (Bld) [#/Vol] 3.68 10*6/uL 4.6-6.2 [facility] Blood hemoglobin measurement (mass/volume)Ordered By: ED PROVIDER on 03-05-2023 Hemoglobin (Bld) [Mass/Vol] 11.7 g/dL 13.0-16.5 [facility] Blood lymphocytes/100 leukoc ytesOrdered By: ED PROVIDER on 03-05-2023 Lymphocytes/100 WBC (Bld) 13.3 % 19-41 [facility] Blood monocytes/100 leukocyt esOrdered By: ED PROVIDER on 03-05-2023 Monocytes/100 WBC (Bld) 9.3 % 0-10 [facility] Blood platelet mean volumeOr dered By: ED PROVIDER on 03-05-2023 Platelet mean volume (Bld) [Entitic vol] 10.5 fL 6.2-12.0 [facility] Determination of erythrocyte mean corpuscular volume (MCV)Ordered By: ED PROVIDER on 03-05-2023 MCV (RBC) [Entitic vol] 98.9 fL 80-94 [facility] Hematocrit Auto (Bld) [Volum e fraction]Ordered By: ED PROVIDER on 03-05-2023 Hematocrit (Bld) [Volume fraction] 36.4 % 40-54 [facility] Ketones Test strip Ql (U)Ord ered By: ED PROVIDER on 03-05-2023 Ketones Ql (U) Negative Negative [facility] Laboratory - Chemistry and C hemistry - challengeOrdered By: ED PROVIDER on 03-05-2023 CO2 [Moles/Vol] 27.0 mmol/L 21.0-32.0 [facility] Urea nitrogen/Creatinine [Mass ratio] 20.7 mg/mg 10-20 [facility] Laboratory - Hematology and Cell countsOrdered By: ED PROVIDER on 03-05-2023 Erythrocyte distribution width (RBC) [Entitic vol] 55.6 fL 35.1-43.9 [facility] Erythrocyte distribution width (RBC) [Ratio] 15.4 % 11.6-14.6 [facility] Immature granulocytes/100 WBC (Bld) 0.300 % 0.0-0.9 [facility] Comment on above: IG% - Immature Granu locytes (promyelocytes, myelocytes and metamyelocytes) > 1% indicates that a LEFT SHIFT is Present. MCH (RBC) [Entitic mass] 31.8 pg 27.0-32.0 [facility] Nucleated RBC/100 WBC (Bld) [Ratio] 0 % 0-5 [facility] MCHC Auto (RBC) [Mass/Vol]Or dered By: ED PROVIDER on 03-05-2023 MCHC (RBC) [Mass/Vol] 32.1 g/dL 32-36 [facility] Mucus LM Ql (Urine sed)Order ed By: ED PROVIDER on 03-05-2023 Mucus Ql (Urine sed) 0 SEEN /hpf [facility] Nitrite Test strip Ql (U)Ord ered By: ED PROVIDER on 03-05-2023 Nitrite Ql (U) Negative Negative [facility] No Panel InformationOrdered By: Christiano Eastman on 03-05-2023 Ionized Calcium 4.9 mg/dL 4.5-5.6 [facility] Comment on above: Performed at: [place] [id number] Director: Hermann Godfrey PhD, Phone: [phone] No Panel InformationOrdered By: ED PROVIDER on 03-05-2023 Estimated GFR (MDRD) Amer 52 mL/min >60 [facility] Comment on above: GFR Calc Estimated GFR (MDRD) Non-Af Amer 43 mL/min >60 [facility] Comment on above: Non- GFR Calc Platelets bldOrdered By: ED PROVIDER on 03-05-2023 Platelets (Bld) [#/Vol] 225 10*3/uL 150-450 [facility] Protein Test strip Ql (U)Ord ered By: ED PROVIDER on 03-05-2023 Protein Ql (U) 100 mg/dl Negative [facility] Serum or plasma calcium devante urement (mass/volume)Ordered By: ED PROVIDER on 03-05-2023 Calcium [Mass/Vol] 9.2 mg/dL 8.5-10.1 [facility] Serum or plasma creatinine m easurement (mass/volume)Ordered By: ED PROVIDER on 03-05-2023 Creatinine [Mass/Vol] 1.64 mg/dL 0.70-1.30 [facility] Comment on above: The validity of the calculated GFR & GFRAA in patients over 70 years has not been determined. Clinical correlation is essential. Serum or plasma urea nitroge n measurement (mass/volume)Ordered By: ED PROVIDER on 03-05-2023 Urea nitrogen [Mass/Vol] 34 mg/dL 7- [facility] Squamous epithelial cells de tection in urine sediment by light microscopyOrdered By: ED PROVIDER on 03-05-2023 Epithelial cells.squamous LM Ql (Urine sed) 0 SEEN /hpf 0-5 [facility] Thin prep Papanicolaou smear with manual screeningOrdered By: ED PROVIDER on 03-05-2023 Thin prep Papanicolaou smear with manual screening 2 5-15 [facility] Urine blood detectionOrdered By: ED PROVIDER on 03-05-2023 RBC Ql (U) Negative Negative [facility] RBC Ql (U) 0 SEEN /hpf 0-5 [facility] Urine clarityOrdered By: ED PROVIDER on 03-05-2023 Clarity (U) Clear Clear [facility] Urine color determinationOrd ered By: ED PROVIDER on 03-05-2023 Color (U) Yellow Yellow [facility] Urine glucose detectionOrder ed By: ED PROVIDER on 03-05-2023 Glucose Ql (U) Normal mg/dl Normal [facility] Urine leukocyte esterase det ection by dipstickOrdered By: ED PROVIDER on 03-05-2023 Leukocyte esterase Test strip Ql (U) 25 /ul Negative [facility] Urine pHOrdered By: ED PROVI JE on 03-05-2023 pH (U) 8.0 [pH] 5.0 - 8.0 [facility] Urine sediment bacteria coun t by microscopy (number/high power field)Ordered By: ED PROVIDER on 03-05-2023 Bacteria LM.HPF (Urine sed) [#/Area] RARE /hpf None Seen [facility] Urine specific gravity measu rementOrdered By: ED PROVIDER on 03-05-2023 Specific gravity (U) [Rel density] 1.010 1.002-1.030 [facility] Urobilinogen Auto test strip Ql (U)Ordered By: ED PROVIDER on 03-05-2023 Urobilinogen Ql (U) 1 mg/dl Normal [facility] Calcium SerPl-mCncon 023 Calcium [Mass/Vol] 9.3 mg/dL Normal 8.5-10.2 [facility] Comment on above: Order Comment: Speci men Type: BLOOD SPECIMEN Ordering Facility: [facility] Address: [address] [place] [address] Performed By: #### 1 [id number] #### [facility] CLIA [id number] [address] [place] [address] [place] [facility] Parathyrin.intact [Mass/Vol] 11 pg/mL Low 15-65 [facility] Comment on above: Order Comment: Speci men Type: BLOOD SPECIMEN Ordering Facility: [facility] Address: [address] [place] [address] Performed By: #### 2 [id number] #### [facility] CLIA [id number] [address] [place] [address] [place] ANES POSTPROC EVALon 023 ANES POSTPROC EVAL HNO ID: [id number] Author: Urban Maritnez MD Service: Anesthesiology Author Type: Anesthesiologist Type: Anesthesia Postprocedure Evaluation Filed: 02/27/2023 1:18 PM Note Text: POST ANESTHESIA EVALUATION NOTE : 1940 Procedure Summary Date: 02/27/23 Room / Location: OR / MM OR Anesthesia Start: 726 Anesthesia Stop: 1008 Procedure: PARATHYROIDECTOMY (Thyroid) Diagnosis: Hyperparathyroidism (HCC) (Hyperparathyroidism (HCC) [E21.3]) Surgeons: Blanche Munoz MD Responsible Provider: Too Escoto MD Anesthesia Type: general ASA Status: 3 Anesthesia Type: general Airway Type: ETT Last Vitals Vitals Value Taken Time BP 116/59 02/27/23 1120 Temp 36.3 ?C (97.3 ?F) 02/27/23 1120 Pulse 78 02/27/23 1120 Resp 18 02/27/23 1120 SpO2 97 % 02/27/23 1120 Post Anesthesia Patient Status Patient Evaluation: PACU. PACU/ICU Patient Condition: stable. Anticipated Disposition: inpatient floor planned admission. Neurological Status: aware and responsive. Pulmonary Status: breathing comfortably on room air Airway Control: returned to baseline unsupported. Cardiovascular Status: stable. Pain Management: clinically adequate - multimodal analgesia pain management approach Postoperative Hydration: acceptable. Intraoperative Events: no significant anesthesia events Recommendation: continue current plan of care and further care per PACU/ICU/floor team. Anesthesia Observations No Documentation SIGNATURE: Urban Martinez MD PATIENT NAME: Michael Mullins DATE: February 27, 2023 TIME: 1:18 PM CSN: [id number] [facility] ANES PRE-OPon 02-27-2023 ANES PRE-OP HNO ID: [id number] Author: Urban Martinez MD Service: Anesthesiology Author Type: Anesthesiologist Type: Anesthesia Preprocedure Evaluation Filed: 02/27/2023 7:05 AM Note Text: ANESTHESIOLOGY DAY OF SURGERY NOTE : 1940 Procedure Information Date/Time: 02/27/23729 Procedure: PARATHYROIDECTOMY (Thyroid) Location: OR05 / OR Surgeons: Blanche Munoz MD Estimated body mass index is 22.32 kg/m? as calculated from the following: Height as of 02/15/23: 160 cm (5' 3). Weight as of 02/15/23: 57.2 kg (126 lb). 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 Mallampati: II. TM distance: >3 FB. Neck ROM: full ROM without neurological symptoms. Mouth opening: adequate. Short neck: no. Thick neck: no DENTAL Dental findings: teeth intact. Additional exam findings: no II - ANESTHESIA PLAN ASA Score: 3 Anesthetic Plan: general Airway type: ETT NPO Status: adequate Beta Lynn Monitoring Plan Monitoring plan: Standard ASA. Post Procedure Analgesic Plan Postoperative analgesic plan: parenteral or oral opioids and multimodal analgesia. Patient / Surrogate agrees to blood products: yes DNR status not reviewed with patient and/or family prior to surgery. Significant changes in the patient condition since the History and Physical, not otherwise documented in primary service progress note: no. Potential Anesthesia issues that may suggest increased risk of complications or contraindication to planned procedure: none. Vitals Value Taken Time BP 137/73 02/27/23 0642 Pulse 53 02/27/23 0642 Resp 16 02/27/23 0642 Temp 36.3 ?C (97.3 ?F) 02/27/23 0642 SpO2 100 % 02/27/23 0642 Facility-Administered Medications as of 02/27/2023 Medication Dose Route Frequency - lidocaine (PF) 10 mg/mL (1 %) 1-2 mg injection (XYLOCAINE) 0.1-0.2 mL INTRADERMAL PRN - NaCl 0.9% iv flush bag 20 mL INTRAVENOUS PRN - NaCl 0.9% iv infusion 75 mL/hr INTRAVENOUS CONTINUOUS Outpatient Medications as of 02/27/2023 Medication Sig - IFEREX 150 150 mg iron capsule Take 150 mg by mouth once daily. - finasteride (PROSCAR) 5 mg tablet Take 1 tablet by mouth once daily. - atorvastatin (LIPITOR) 10 mg tablet Take 1 tablet by mouth once daily. - PARoxetine (PAXIL) 10 mg tablet Take 1 tablet by mouth once daily. - donepezil (ARICEPT) 10 mg tablet Take 1 tablet by mouth daily at bedtime. - losartan (COZAAR) 50 mg tablet Take 1 tablet by mouth once daily. I have interviewed and examined the patient. I have reviewed the medical record and/or the pre-anesthesia evaluation, pertinent labs, and test results. This contains updated information obtained within 48 hours of Surgery/Procedure. SIGNATURE: Urban Martinez MD PATIENT NAME: Michael Mullins DATE: February 27, 2023 TIME: 7:05 AM CSN: [id number] [facility] BRIEF OP NOTon 02-27-2023 BRIEF OP NOT HNO ID: [id number] Author: Karyna Reeves Jr., MD Service: ? Author Type: Physician Type: Brief Op Note Filed: 02/27/2023 9:47 AM Note Text: Brief Operative Note Patient Name: Michael Mullins LOG ID: [id number] Surgery/Procedure Date: 02/27/2023 Surgeon(s)/Procedurali st(s) and Career Services Coordinator(s): Surgeon(s) and Role: * Blanche Munoz MD - Primary * Karyna Reeves Jr., MD - Fellow Procedure(s): parathyroidectomy Incision/Procedure Start Time: 7:58 AM Incision Close/Procedure End Time: 9:44 AM Anesthesia: General Findings: enlarged LL, suspicious RL, both removed. RU and LUCIEN normal glands Input: Crystalloid: See anesthesia record Output: See anesthesia record Estimated Blood Loss: 10 mL Specimens: ID Type Source Tests Collected by Time Destination 1 : pre pth Blood BLOOD INTRAOPERATIVE PTH Blanche Munoz MD 02/27/2023 8:29 AM 2 : post pth Blood BLOOD INTRAOPERATIVE PTH Blanche Munoz MD 02/27/2023 8:57 AM A : Left Lower Parathyroid, Totally Excised, Totally Submitted, 13 X 8 X 6 Tissue PARATHYROID GLAND LEFT SURGICAL PATHOLOGY Blanche Munoz MD 02/27/2023 8:42 AM B : Left Cervical Thymus, Rule Out Parathyroid Tissue THYMUS RESECTION SURGICAL PATHOLOGY Blanche Munoz MD 02/27/2023 8:43 AM C : right lower parathyroid neck soft tissue #1 r/o parathyroid tissue Tissue PARATHYROID GLAND RIGHT SURGICAL PATHOLOGY Blanche Munoz MD 02/27/2023 9:13 AM D : right lower parathyroid neck soft tissue #2 r/o parathyroid tissue Tissue PARATHYROID GLAND RIGHT SURGICAL PATHOLOGY Blanche Munoz MD 02/27/2023 9:13 AM E : right lower parathyroid neck soft tissue #3 Tissue PARATHYROID GLAND RIGHT SURGICAL PATHOLOGY Blanche Munoz MD 02/27/2023 9:14 AM Implants: * No implants in log * Drains: non Wound Classification: Class 1, operative wound clean, non-traumatic, with no inflammation encountered, no break in technique, gastrointestinal and genitor-urinary tracts not entered Pre-Op/Pre-Procedure Diagnosis: same Post-Op/Post-Procedure Diagnosis: same Post-Op Plan: Recover in PACU. SIGNATURE: Karyna Reeves jr, MD DATE: 02/27/23 TIME: 9:46 AM Normal [facility] INTRAOPERATIVE PTHon 023 INTRAOPERATIVE PTH 35 pg/mL Normal [facility] Comment on above: Order Comment: Speci men Type: BLOOD SPECIMEN Ordering Facility: [facility] Address: [address] [place] [address] Performed By: #### R IPTH #### [facility] CLIA [id number] [address] [place] [address] OF [facility] INTRAOPERATIVE PTH 83 pg/mL High - [facility] Comment on above: Order Comment: Speci men Type: BLOOD SPECIMEN Ordering Facility: [facility] Address: [address] [place] [address] Performed By: #### R IPTH #### [facility] CLIA [id number] [address] [place] [address] OPERATIVE NOon 02-27-2023 OPERATIVE NO HNO ID: [id number] Author: Blanche Munoz MD Service: Endocrine Surgery Author Type: Physician Type: Operative Report Filed: 02/27/2023 1:04 PM Note Text: [facility] - Operative Report MICHAEL MULLINS : 1940 AGE: 82. SEX: M PATIENT TYPE: A HOSP SVC: ENDOCRINE ALARCON LOCATION: [facility] [place] ATTENDING PHYSICIAN: Blanche Munoz M.D. CSN NUMBER: [id number] DATE OF SURGERY/PROCEDURE: 02/27/2023 Incision/Procedure Start Time: 7:58 AM Incision Close/Procedure End Time: 9:44 AM PREOPERATIVE DIAGNOSIS: Primary hyperparathyroidism following previous anterior approach cervical spine surgery. POSTOPERATIVE DIAGNOSIS: Primary hyperparathyroidism following previous anterior approach cervical spine surgery. SURGEON: Blanche Munoz M.D. RADIAL ROUTER OPERATOR: Dr. Ruth Reeves. No qualified general surgery resident was available to assist. Dr. Reeves assisted with incision, wound dissection, removal of gland, and wound closure. SURGERY/PROCEDURE: 1. Re-do neck exploration. 2. Parathyroidectomy. 3. Neck ultrasound. ANESTHESIA: General endotracheal. URINE OUTPUT: Not recorded. ESTIMATED BLOOD LOSS: Minimal. INDICATIONS: This is an 82-year-old man with biochemical evidence of primary hyperparathyroidism with calcium 11.0, PTH in the 80s. Hypercalcemia has been present since 2013. He complains of fatigue. He has fractured his right hip 3 years ago. DEXA scan shows osteoporosis. He underwent previous anterior approach cervical spine surgery through right anterior cervical approach. Preop ultrasound was suggestive of an enlarged left lower parathyroid. ULTRASOUND FINDINGS: Images were archived and sent to the medical record. Images demonstrated a hypoechoic structure in the distribution of the left lower parathyroid measuring 8 x 6 x 9 mm with typical appearance of enlarged parathyroid gland. There were scattered colloid cysts bilaterally. OPERATIVE FINDINGS: The left lower parathyroid was enlarged. It measured 13 x 8 x 6 mm. It was excised completely and confirmed parathyroid tissue. A very small left upper parathyroid was identified and left in situ. A normal-appearing right upper parathyroid was identified and left in situ. A firm and enlarged right lower parathyroid was identified in the thymic horn. It was excised completely and confirmed hypercellular parathyroid tissue. Pre-excision PTH was 83, post-excision PTH was 35. The left recurrent laryngeal nerve was identified, it was structurally and functionally intact at the end of the operation as evidenced by intraoperative nerve monitoring. The right recurrent laryngeal nerve was not identified. There was scar tissue in the right central neck from previous surgery. DESCRIPTION OF PROCEDURE: After informed consent was obtained, the patient was brought to the operating room, placed supine on the operating table. He received Ancef within 30 minutes of incision. SCDs were used for DVT prophylaxis. He was intubated with the Nirvana tube and both arms were tucked. We were unable to extend his neck beyond neutral. We then performed ultrasound. We prepped and draped the neck. We made a 4 cm transverse cervical incision below his old transverse scar. We carried this down through the platysma and scar tissue using electrocautery. We created subplatysmal flaps up to the thyroid cartilage down to the sternal notch. We divided the strap muscles in the midline. We the left sternohyoid and sternothyroid muscles from 1 another, then we the left thyroid from the overlying sternothyroid muscle and performed lateral dissection down to the carotid artery. We medially rotated the left thyroid. We identified an enlarged left lower parathyroid that was adjacent to the left lower pole of the thyroid. We dissected this free of the surrounding tissue. We ayesha a pre-excision PTH from his left internal jugular vein ,as he did not have any suitable anterior jugular veins to use. We then divided the several cuca of the left lower parathyroid with 3-0 silk ties and passed it off the field. We explored the left upper neck and identified a very small left upper parathyroid. We then explored the right neck in the same manner. This was made difficult by scar tissue. We were able to identify a normal right upper parathyroid. We searched extensively in the right lower neck and eventually found a firm and mildly enlarged right lower parathyroid. This was excised completely and confirmed hypercellular parathyroid tissue. We ayesha a post-excision PTH in the left internal jugular vein. We achieved hemostasis. We left SNoW Surgicel on both sides of the central neck. We closed the strap muscles with 2 layers of interrupted 4-0 Vicryl. We closed the platysma with 1 layer of interrupted 4-0 Vicryl. We injected the wound with 0.5% Marcaine and closed the skin using running 3-0 subcuticular Prolene, placed (more content not included)... [facility] SURGICAL PATHOLOGYon 023 CASE REPORT [facility] Comment on above: Order Comment: Speci men Type: TISSUE SPECIMEN Ordering Facility: [facility] Address: [address] [place] [id number] Result Comment: Surg [facility] Pathology Report Case: [id number] Authorizing Provider: Blanche Munoz MD Collected: 02/27/2023 08:42 AM Ordering Location: [facility] Surgery Received: 02/27/2023 08:52 AM Pathologist: Padmaja Holcomb MD Intraop: Effie Bonilla MD Specimens: A) - PARATHYROID GLAND LEFT, Left Lower Parathyroid, Totally Excised, Totally Submitted, 13 X 8 X 6 B) - THYMUS RESECTION, Left Cervical Thymus, Rule Out Parathyroid C) - PARATHYROID GLAND RIGHT, right lower parathyroid neck soft tissue #1 r/o parathyroid tissue D) - PARATHYROID GLAND RIGHT, right lower parathyroid neck soft tissue #2 r/o parathyroid tissue E) - PARATHYROID GLAND RIGHT, right lower parathyroid neck soft tissue #3 Performed By: #### S #### [facility] CLIA [id number] [address] [place] [address] CLINICAL HISTORY [facility] Comment on above: Order Comment: Speci men Type: TISSUE SPECIMEN Ordering Facility: [facility] Address: [address] [place] [address] Result Comment: Pre- op diagnosis: Hyperparathyroidism (HCC) [E21.3] Performed By: #### S #### [facility] CLIA [id number] [address] [place] [address] FINAL DIAGNOSIS [facility] Comment on above: Order Comment: Speci men Type: TISSUE SPECIMEN Ordering Facility: [facility] Address: [address] [place] [address] Result Comment: A. P arathyroid gland, left lower, parathyroidectomy: -Hypercellular parathyroid tissue. B. Thymus, left cervical, resection: -Atrophic thymus. -No parathyroid tissue identified. C. Parathyroid gland, right lower #1, biopsy: -Mildly hypercellular parathyroid tissue. D. Parathyroid gland, right lower #2, excision: -Hypercellular parathyroid tissue. E. Parathyroid gland, right lower #3, excision: -Benign fibrofatty tissue. -No parathyroid tissue identified. Performed By: #### S #### [facility] CLIA [id number] [address] [place] [address] FINAL PERFORMING LAB [facility] Comment on above: Order Comment: Speci men Type: TISSUE SPECIMEN Ordering Facility: [facility] Address: [address] [place] [address] Result Comment: Diag nostic interpretation performed at [facility], [address] [place] [address] CLIA# [id number] Product Development Coordinator: Yayo Alicea M.D. Performed By: #### S #### [facility] CLIA [id number] [address] [facility] [id number] [address] [place] GROSS DESCRIPTION Normal [facility] Comment on above: Order Comment: Speci men Type: TISSUE SPECIMEN Ordering Facility: [facility] Address: [address] [place] [address] Result Comment: A. P ARATHYROID GLAND LEFT Received fresh is a segment of reyes-red soft tissue measuring 13 x 8 x 6 mm and weighing 0.198 grams. Submitted in toto as FSA1. Gross examination performed at [facility], [address], [place] [address] CLIA# [id number]. B. THYMUS RESECTION Received fresh is a segment of yellow-reyes adipose tissue measuring 22 x 20 x 4 mm. Submitted in toto as FSB1. Gross examination performed at [facility], [address], [place] [address] CLIA# [id number]. C. PARATHYROID GLAND RIGHT Received fresh is a segment of reyes-red soft tissue measuring 6 x 4 x 3 mm and weighing 0.027 grams. Submitted in toto as FSC1. Gross examination performed at [facility], [address], [place] [address] CLIA# [id number]. D. PARATHYROID GLAND RIGHT Received fresh is a segment of reyes-red soft tissue measuring 7 x 5 x 4 mm and weighing 0.046 grams. Submitted in toto as FSD1. Gross examination performed at [facility], [address], [place] [address] CLIA# [id number]. E. PARATHYROID GLAND RIGHT Received in formalin labeled with parathyroid gland right, right lower parathyroid neck soft tissue #3 is a single fragment of yellow-pink soft tissue measuring 0.5 x 0.4 x 0.2 cm in weighing less than 0.01 g. The specimen is totally submitted intact in cassette E1. TLA February 27, 2023 2:54 PM Gross examination performed at [facility], [address] [place] [address] Performed By: #### S #### [facility] CLIA [id number] [address] [place] [address] [place] INTRAOPERATIVE DIAGNOSIS [facility] Comment on above: Order Comment: Speci men Type: TISSUE SPECIMEN Ordering Facility: [facility] Address: [address] [place] [address] Result Comment: A. P ARATHYROID GLAND LEFT FSA1 Left lower parathyroid gland: Parathyroid tissue (Dr. Effie Bonilla) Intraoperative diagnosis performed at [facility], [address], [place] [address] CLIA# [id number]. B. THYMUS RESECTION FSB1 Left cervical thymus: No parathyroid tissue identified (Dr. Effie Bonilla) Intraoperative diagnosis performed at [facility], [address], [place] [address] CLIA# [id number]. C. PARATHYROID GLAND RIGHT FSC1 Right lower parathyroid gland #1: Parathyroid tissue (Dr. Effie Bonilla) Intraoperative diagnosis performed at [facility], [address], [place] [address] CLIA# [id number]. D. PARATHYROID GLAND RIGHT FSD1 Right lower parathyroid gland #2: Hypercellular parathyroid tissue (Dr. Effie Bonilla) Intraoperative diagnosis performed at [facility], [address], [place] [id number] CLIA# [id number]. Performed By: #### S #### [facility] CLIA [id number] [address] [place] [address] [place] US THYROID/PARATHYROID (POC) ENDO USE ONLYon 02-27-2023 [facility] No Panel Informationon 12-27 LOWEST T-SCORE -3.0 [facility] US THYROID/PARATHYROID (POC) ENDO USE ONLYon 12-27-2022 [facility] UA DIP, URINE (POC)on 2022 BILIRUBIN UA (POCT) Negative Negative [facility] CLARITY UA (POCT) Clear [facility] COLOR UA (POCT) Light yellow [facility] GLUCOSE UA (POCT) Negative Negative mg/dL [facility] HEMOGLOBIN/BLOOD UA (POCT) Negative Negative [facility] KETONE UA (POCT) Negative Negative mg/dL [facility] LEUKOCYTES UA (POCT) Trace Abnormal Negative [facility] NITRITE UA (POCT) Negative Negative [facility] PH UA (POCT) 5.5 4.5 - 8.0 [facility] Protein Ql (U) 30 mg/dL Abnormal Negative mg/dL [facility] SPECIFIC GRAVITY UA (POCT) 1.025 1.005 - 1.030 [facility] UROBILINOGEN UA (POCT) 0.2 E.U./dL Jocelyn l E.U./dL [facility] XR Chest PA and Lateralon IMPRESSION: Findings likely related to known evolving viral pneumonia. Element of fibrosis is not excluded. Removable Prosthodontist: CHANA Transcribe Date/Time: Sep 26 2021 3:12P Dictated by : IGLESIA ERICKSON MD This examination was interpreted and the report reviewed and electronically signed by: IGLESIA ERICKSON MD on Sep 26 2021 3:13PM [facility] DIVISION OF RADIOLOGY * * *Final Report* * * DATE OF EXAM: Sep 26 2021 3:02PM WOX [id number] - XR CHEST 2V FRONTAL/LAT / PROCEDURE REASON: multiple diagnoses * * * * Physician Interpretation * * * * EXAMINATION: CHEST RADIOGRAPH (2 VIEW FRONTAL & LATERAL) CLINICAL HISTORY: Pneumonia due to COVID-19 virus MQ: XC2_6 EXAM DATE/TIME: 09/26/2021 3:02 PM COMPARISON: Chest x-ray dated February 02, 2016 RESULT: Lines, tubes, and devices: None. Lungs and pleura: There is prominence of the interstitial markings with bilateral patchy opacities likely related to known evolving viral pneumonia. There is moderate elevation of the left hemidiaphragm. Cardiomediastinal silhouette: Heart normal in size. Fullness of the cuca potentially reflective of reactive lymphadenopathy. Bones and soft tissues: Postsurgical changes in the cervical spine from anterior and posterior fusion. Surgical clips in the right upper quadrant. Degenerative changes in the spine. DIVISION OF RADIOLOGY Provider, Rosy You [facility] - 09/26/2021 * * *Final Report* * * DATE OF EXAM: Sep 26 2021 3:02PM WOX [id number] - XR CHEST 2V FRONTAL/LAT / PROCEDURE REASON: multiple diagnoses * * * * Physician Interpretation * * * * EXAMINATION: CHEST RADIOGRAPH (2 VIEW FRONTAL & LATERAL) CLINICAL HISTORY: Pneumonia due to COVID-19 virus MQ: XC2_6 EXAM DATE/TIME: 09/26/2021 3:02 PM COMPARISON: Chest x-ray dated February 02, 2016 RESULT: Lines, tubes, and devices: None. Lungs and pleura: There is prominence of the interstitial markings with bilateral patchy opacities likely related to known evolving viral pneumonia. There is moderate elevation of the left hemidiaphragm. Cardiomediastinal silhouette: Heart normal in size. Fullness of the cuca potentially reflective of reactive lymphadenopathy. Bones and soft tissues: Postsurgical changes in the cervical spine from anterior and posterior fusion. Surgical clips in the right upper quadrant. Degenerative changes in the spine. IMPRESSION IMPRESSION: Findings likely related to known evolving viral pneumonia. Element of fibrosis is not excluded. Removable Prosthodontist: PSCB Transcribe Date/Time: Sep 26 2021 3:12P Dictated by : IGLESIA ERICKSON MD This examination was interpreted and the report reviewed and electronically signed by: IGLESIA ERICKSON MD on Sep 26 2021 3:13PM EST [facility] Radiology Study observation (narrative) Andrew Membreno XR Chest PA and LateralOrder ed By: [facility] Provider on 09-26-2021 [facility] ANES POSTPROC EVALon 020 ANES POSTPROC EVAL HNO ID: [id number] Author: Dedrick Mccrary Service: ? Author Type: Anesthesiologist Type: Anesthesia Postprocedure Evaluation Filed: 08/29/2020 1:29 PM Note Text: POST ANESTHESIA EVALUATION NOTE : 1940 Procedure Summary Date: 08/29/20 Room / Location: TX OR02 / [place] OR Anesthesia Start: 739 Anesthesia Stop: 909 Procedure: HERNIORRHAPHY INGUINAL ELECTIVE ADULT REDUCIBLE (Left Groin) Diagnosis: Left inguinal hernia Surgeons: Nasir Villafuerte Responsible Provider: Dedrick Mccrary Anesthesia Type: MAC ASA Status: 3 Anesthesia Type: MAC Last vitals Vitals Value Taken Time BP 168/77 08/29/20 1000 Temp 36.7 ?C (98.1 ?F) 08/29/20 1000 Pulse 51 08/29/20 1000 Resp 16 08/29/20 1000 SpO2 99 % 08/29/20 1000 Post Anesthesia Patient Status Patient Evaluation: PACU. PACU/ICU Patient Condition: stable. Anticipated Disposition: phase 2 then home. Neurological Status: aware and responsive. Pulmonary Status: breathing comfortably on room air Airway Control: returned to baseline unsupported. Cardiovascular Status: stable. Pain Management: clinically adequate - multimodal analgesia pain management approach Postoperative Hydration: acceptable. Intraoperative Events: no significant anesthesia events Post Operative Nausea/Vomiting Status: Anesthetic Observations: no significant anesthetic observations Recommendation: continue current plan of care. SIGNATURE: Dedrick Mccrary MD PATIENT NAME: Michael Mullins DATE: August 29, 2020 TIME: 1:29 PM CSN: [id number] [facility] ANES PRE-OPon 08-29-2020 ANES PRE-OP HNO ID: [id number] Author: Dedrick Mccrary Service: ? Author Type: Anesthesiologist Type: Anesthesia Preprocedure Evaluation Filed: 08/29/2020 7:33 AM Note Text: ANESTHESIOLOGY DAY OF SURGERY NOTE : 1940 Procedure(s) (LRB): HERNIORRHAPHY INGUINAL ELECTIVE ADULT REDUCIBLE (Left) Surgeon(s): Nasir Villafuerte Estimated body mass index is 30 kg/m? as calculated from the following: Height as of 08/24/20: 157.5 cm (5' 2). Weight as of 08/24/20: 74.4 kg (164 lb). 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 Tracheostomy tube not present Mallampati: II. TM distance: >3 FB. Neck ROM: full ROM without neurological symptoms. Mouth opening: adequate. Additional exam findings: no II - ANESTHESIA PLAN ASA Score: 3 Anesthetic Plan: MAC NPO Status: adequate Monitoring plan: standard ASA. Postoperative analgesic plan: parenteral or oral opioids and multimodal analgesia. Anesthetic Risks, Benefits, Alternatives, Personnel Discussed. Consent obtained from: patient. Patient / Surrogate agrees to blood products: blood products not planned Significant changes in the patient condition since the History and Physical, not otherwise documented in primary service progress note: no. Vitals Value Taken Time BP 188/84 08/29/20655 Pulse 54 08/29/20653 Resp 16 08/29/20653 Temp 36.2 ?C (97.2 ?F) 08/29/20653 SpO2 97 % 08/29/20653 Facility-Administered Medications as of 08/29/2020 Medication Dose Route Frequency - lactated ringers infusion 30 mL/hr INTRAVENOUS CONTINUOUS - ceFAZolin iv piggyback 2 g in D5W (iso-osmotic) 100 mL (ANCEF) 2 g INTRAVENOUS Pre-Op Once Outpatient Medications as of 08/29/2020 Medication Sig - metFORMIN (GLUCOPHAGE) 500 mg tablet Take 1 tablet by mouth twice daily with meals. - atorvastatin (LIPITOR) 10 mg tablet Take 1 tablet by mouth once daily. - allopurinol (ZYLOPRIM) 300 mg tablet TAKE 1 TABLET BY MOUTH ONCE DAILY. FOR GOUT. - meloxicam (MOBIC) 7.5 mg tablet Take 1 tablet by mouth once daily. - donepezil (ARICEPT) 10 mg tablet Take 1 tablet by mouth daily at bedtime. - doxazosin (CARDURA) 2 mg tablet Take 1 tablet by mouth once daily. - losartan (COZAAR) 25 mg tablet Take 1 tablet by mouth once daily. - PARoxetine (PAXIL) 10 mg tablet Take 1 tablet by mouth once daily. I have interviewed and examined the patient. I have reviewed the medical record and/or the pre-anesthesia evaluation, pertinent labs, and test results. This contains updated information obtained within 48 hours of Surgery/Procedure. SIGNATURE: Dedrick Mccrary MD PATIENT NAME: Michael Mullins DATE: August 29, 2020 TIME: 7:33 AM CSN: [id number] [facility] BRIEF OP NOTon 08-29-2020 BRIEF OP NOT HNO ID: [id number] Author: Nasir Villafuerte Service: General Surgery Author Type: Physician Type: Brief Op Note Filed: 08/29/2020 9:18 AM Note Text: BRIEF OPERATIVE NOTATION FOR SURGICAL PROCEDURE. Michael Mullins 1940 [id number] male LOG ID: [id number] Surgery/Procedure Date: 08/29/2020 Incision/Procedure Start Time: 7:57 AM Incision Close/Procedure End Time: 9:03 AM Surgeon(s)/Procedurali st(s) and Career Services Coordinator(s): Surgeon(s) and Role: * Nasir Villafuerte - Primary Physician Career Services Coordinator: Bonny Perez (Pa) REFERRING PHYSICIAN: Outpatient DEPT: [facility] PROVIDER: Natalia POS: [id number] ANESTHESIA: Monitored Anesthesia Care ASA CLASS: 2 - mild DIAGNOSIS: left inguinal hernia PROCEDURE: open left inguinal hernia repair with mesh - [id number] IVF: 1000 EBL: minimal Specimens: none ADDITIONAL DIAGNOSES: FINDINGS: direct with weak floor COMPLICATIONS: None PMHx - PAST MEDICAL HISTORY Diagnosis Date - Acute leukemia of unspecified cell type in remission - Benign neoplasm of colon - BPH (benign prostatic hypertrophy) with urinary obstruction 01/06/2013 - Controlled type 2 diabetes mellitus without complication, without long-term current use of insulin (HCC) 07/24/2016 - Degenerative disc disease, cervical 12/09/2015 - Diabetes mellitus (HCC) 07/14/2010 - Gout 08/25/2012 - History of splenectomy 02/07/2015 - Hypertension - Inguinal hernia 04/08/2014 - LBBB (left bundle branch block) - Lumbar disc disease with radiculopathy 04/06/2013 - Mental disorder - Mild cognitive impairment with memory loss 09/13/2015 - Snoring - spinal stenosis COMORBIDITIES - HTN Post Op Occurrences - None Wound Classification - Clean Operative note dictated in the dictation system.[id number] Nasir Villafuerte MD [facility] HISTORY PHYSICALon 0 HISTORY PHYSICAL HNO ID: [id number] Author: Nasir Villafuerte Service: General Surgery Author Type: Physician Type: HANDP Filed: 08/29/2020 6:28 AM Note Text: HISTORY AND PHYSICAL ? Michael Mullins 1940 ? ? REFERRING PHYSICIAN: Wilfred Vázquez III, MD ? CHIEF COMPLAINT: Consult ? HPI: Michael is a 80 year old male with a complaint of a bulge which is increasing in size but with minimal discomfort in his left inguinal region. The patient notes no symptoms of bowel obstruction and denies nausea or vomiting. The patient was seen by his primary care physician who felt the patient has a hernia. Michael was referred for evaluation and treatment. ? The patient has issues including benign prostatic hypertrophy for which he has frequent voiding episodes but the patient and his state he does not have to strain or press hard to initiate stream. He has a complex surgical history including midline laparotomy for leukemia with a previous splenectomy, diabetes, bundle branch block, and a degree of mild cognitive impairment ? The patient is being seen by me today at the request of Dr. Wilfred Vázquez III MD for my opinion and advice regarding enlarging left inguinal hernia. ? ? PAST MEDICAL HISTORY PAST MEDICAL HISTORY Diagnosis Date - Acute leukemia of unspecified cell type in remission ? - Benign neoplasm of colon ? - BPH (benign prostatic hypertrophy) with urinary obstruction 01/06/2013 - Controlled type 2 diabetes mellitus without complication, without long-term current use of insulin (HCC) 07/24/2016 - Degenerative disc disease, cervical 12/09/2015 - Diabetes mellitus (HCC) 07/14/2010 - Gout 08/25/2012 - History of splenectomy 02/07/2015 - Hypertension ? - Inguinal hernia 04/08/2014 - LBBB (left bundle branch block) ? - Lumbar disc disease with radiculopathy 04/06/2013 - Mental disorder ? - Mild cognitive impairment with memory loss 09/13/2015 - Snoring ? - spinal stenosis ? ? ? PAST SURGICAL HISTORY PAST SURGICAL HISTORY Procedure Laterality Date - COLONOSCOP W/ OR W/O BRSH SPEC ? 04-06-03 ? Repeat in - COLONOSCOP W/ OR W/O BRSH SPEC ? 02/17/2013 ? Colonoscopy - COLONOSCOP W/ OR W/O BRSH SPEC ? 06/03/2018 ? Colonoscopy - EGD ? 08/24/03 ? + hpylori - PAST SURGICAL HISTORY OF ? 2002 ? back surgery - PAST SURGICAL HISTORY OF ? 2000 ? back surgery - PAST SURGICAL HISTORY OF Right 2018 ? hemiarthroplasty of hip - REMOVAL OF TONSILS,<12 Y/O ? ? ? Tonsillectomy - REMOVAL SPLEEN, TOTAL ? 1985 ? Splenectomy ? ? ? CURRENT MEDICATIONS Current Outpatient Medications Medication Sig - metFORMIN (GLUCOPHAGE) 500 mg tablet Take 1 tablet by mouth twice daily with meals. - atorvastatin (LIPITOR) 10 mg tablet Take 1 tablet by mouth once daily. - allopurinol (ZYLOPRIM) 300 mg tablet TAKE 1 TABLET BY MOUTH ONCE DAILY. FOR GOUT. - meloxicam (MOBIC) 7.5 mg tablet Take 1 tablet by mouth once daily. - donepezil (ARICEPT) 10 mg tablet Take 1 tablet by mouth daily at bedtime. - doxazosin (CARDURA) 2 mg tablet Take 1 tablet by mouth once daily. - losartan (COZAAR) 25 mg tablet Take 1 tablet by mouth once daily. - PARoxetine (PAXIL) 10 mg tablet Take 1 tablet by mouth once daily. ? No current facility-administered medications for this visit. ? ? ALLERGIES: Altace [Ramipril], Gabapentin, and Toprol Xl [Metoprolol Succinate] ? PERSONAL HISTORY: SOCIAL HISTORY Social History ? Tobacco Use - Smoking status: Former Smoker ? ? Packs/day: 0.50 ? ? Years: 20.00 ? ? Pack years: 10.00 ? ? Types: Cigarettes ? ? Quit date: 05/21/1999 ? ? Years since quittin.2 - Smokeless tobacco: Never Used Substance Use Topics - Alcohol use: Yes ? ? Comment: occasionally - Drug use: No ? FAMILY HISTORY: FAMILY HISTORY FAMILY HISTORY Problem Relation Age of Onset - Cancer Mother ? ? ovarian - Heart Father ? - COPD Sister ? - Cancer Sister ? ? retroorbital ? ? REVIEW OF SYMPTOMS: The review of systems data was entered by the nurse and reviewed by me ? Nursing Notes: Meño Yi 08/02/2020 3:40 PM Signed REVIEW OF SYSTEMS: General: The patient denies fatigue, denies weight loss, denies weight gain, denies feeling hot, and NOTES feelings of cold. Eyes: The patient denies glaucoma, denies eye injury/surgery, wears glasses or contacts. Ear/Nose/Throat: The patient NOTES allergies, denies hayfever, denies ear infections, and denies bloody noses. Cardiovascular: The patient denies chest pain, NOTES heart disease, denies high blood pressure,denies cardiac stent, denies prior heart attack, denies irregular heart beat, denies high cholesterol, denies poor circulation, denies heart failure, other cardiac issues, denies claudication, denies cold feet, denies peripheral arterial stent. Respiratory: The patient denies tuberculosis, NOTES pneumonia, denies frequent cough, denies pulmonary embolism, denies shortness of breath, and denies coughing up blood. Gastrointestinal: The patient denies difficulty swallowing, denies acid reflux, denies ulcers, denies vomiting, denies jaundice/hepatitis, denies gallbladder problems, denies black or tarry stools, denies hemorrhoids, denies bleeding from rectum, denies diverticulitis, denies constipation, denies diarrhea, denies loss of stool control, and denies hernias. Kidney/Bladder: The patient denies kidney stones, denies urine infections, and denies bloody urine. Skin: The patient denies a history of skin cancer, denies bleeding/changing moles, and denies a history of skin rash. Neurologic: The patient denies a history of epilepsy/convulsions, denies headaches, denies head/spinal injuries, and NOTES stroke/TIA. Psychiatric: The patient denies psychiatric medications, denies depression, and denies voices, denies substance abuse. Endocrine: The patient denies thyroid disorders, NOTES diabetes, and denies hormonal problems. Hematologic: The patient NOTES a history of bruising, denies bleeding, and denies anemia, denies blood clots. Infections: The patient NOTES a history of measles and mumps, denies rheumatic fever, and denies sexually transmitted diseases. Musculoskeletal: The patient NOTES back pain/injury, denies back problems, denies sciatica, NOTES knee/foot trouble, denies arthritis, or denies gout. ? ? When was patient's last Mammogram screening? N/A ? Last Colonoscopy: 2018 ? Meño Yi ? PHYSICAL EXAMINATION: ? General: The patient is 80 year old male, well nourished, well hydrated in no acute distress. The patient is oriented to time, place, and person. ? VITALS: Blood pressure 120/80, pulse 79, temperature 36.1 ?C (96.9 ?F), temperature source Temporal Artery, weight 75.3 kg (166 lb), SpO2 96 %. Body mass index is 29.6 kg/m?. ? HEENT: Normal cephalic, ataumatic, pupils are equally round, sclera are anicteric, mucous membranes are moist, oropharynx is clear. Neck has no masses, asymmetry or lymphadenopathy. Thyroid is unremarkable. ? Respiratory: Clear to auscultation and percussion. Normal respiratory excursion and pattern. ? Cardiac: Examination is regular rate and rhythm. ? Abdominal exam: Soft, nontender, with no palpable masses. No hepatosplenomegaly. A moderate reducible left inguinal hernia, likely a very small asymptomatic right inguinal, no umbilical hernia ? Rectal exam: exam deferred ? Extremities: no clubbing, cyanosis or edema. No adenopathy. ? Other: ? ? LABORATORY VALUES: As Noted ? RADIOLOGIC STUDIES: As Noted ? Assessment IMPRESSION: left inguinal hernia ? PLAN: My plan is to perform a open left inguinal hernia repair with mesh. The planned surgical procedure was discussed extensively with the patient. The risks, benefits, anticipated outcomes and possible complications were mentioned. Ray undersands that all hernia repair surgery has a chance of recurrence and/or chronic post operative pain. My staff has also explained the procedure in understandable terms and the patient was given the option to take printed material concerning the planned procedure. The patient had the opportunity to ask questions concerning the planned procedure. The patient freely consents to the planned procedure. ? I discussed with the patient is given the fact that he has a previous laparotomy incision is having some degree of prostate issues and has multiple comorbidities I feel it is safer to perform an open inguinal hernia repair under local anesthetic with sedation than attempt laparoscopic bilateral repair. They understand the risks and benefits and agree. ? ? The patient was offered a surgery/procedure at a [facility] facility. The surgeon/proceduralist and patient have discussed in detail the risk of exposure to and/or potential harm posed by the COVID-19 virus with having a surgery/procedure at this time versus the risk of? delaying the surgery/procedure. It is not possible to know either the risk of delaying the surgery or procedure or chance of getting an infection with perfect accuracy, but a joint decision was made between the patient and the surgeon/proceduralist ?to proceed at this time with the scheduled surgery/procedure as indicated on the consent form. ? ? ? My findings have been communicated to Dr. Wilfred Vázquez III MD via shared medical record. This note will be forwarded to Dr. Wilfred Vázquez III MD. ? Diagnoses: (K40.90) Non-recurrent unilateral inguinal hernia without obstruction or gangrene ? Anticipated CPT Code: open left inguinal hernia repair with mesh - 34040-446 ? Anticipated Anesthetic: MAC with local ? Patient weight: Blood pressure 120/80, pulse 79, temperature 36.1 ?C (96.9 ?F), temperature source Temporal Artery, weight 75.3 kg (166 lb), SpO2 96 %. BMI: Body mass index is 29.6 kg/m?. ? Planned antibiotic: Ancef 2gm IVPB animal surgeon to OR ? SCDs needed - Yes Return to Clinic: The patient is instructed to follow-up with me 1 week post operatively. ? Nasir Villafuerte MD [facility] OPERATIVE NOon 08-29-2020 OPERATIVE NO HNO ID: [id number] Author: Nasir Villafuerte Service: General Surgery Author Type: Physician Type: Operative Report Filed: 08/29/2020 6:42 PM Note Text: [facility] - Operative Report MICHAEL MULLINS : 1940 AGE: 80. SEX: M PATIENT [place]: [place] [facility] [place] [facility] LOCATION: [facility] ATTENDING PHYSICIAN: Nasir Villafuerte M.D. CSN NUMBER: [id number] DATE OF SURGERY/PROCEDURE: 08/29/2020 INCISION/PROCEDURE START TIME: 7:57 a.m. INCISION CLOSE/PROCEDURE END TIME: 9:03 a.m. PREOPERATIVE DIAGNOSIS: Left inguinal hernia. POSTOPERATIVE DIAGNOSIS: Direct left inguinal hernia with very weak floor. SURGEON: Nasir Villafuerte M.D. RADIAL ROUTER OPERATOR: LISA Peralta SURGERY/PROCEDURE: Open left inguinal hernia repair with mesh, using only the onlay component of a Covidien medium mesh plug, reference #[id number], lot #[id number], expires 10/17/2024. ANESTHESIA: Monitored anesthesia care. LOG ID: [id number] ANESTHESIOLOGIST: Dedrick Mccrary. ASA: 2. INTRAVENOUS FLUIDS: 1000 mL. ESTIMATED BLOOD LOSS: Minimal. URINE OUTPUT: No catheter. FINDINGS: As described above. SPECIMEN: None. DRAINS: None. COMPLICATIONS: None. DISPOSITION: Patient was taken to the PACU in stable condition. DESCRIPTION OF PROCEDURE: The left inguinal area was marked in the holding area. The patient concurred this planned operative site. Sign-in was performed verifying patient, site, procedure, position, critical nursing information, VTE, and antibiotic prophylaxis. Patient received 2 g of Ancef and sequential compression devices were placed. Following this, patient was brought back to the OR suite, moved to the operative table. The left inguinal area was prepped and draped in usual fashion. Timeout was performed verifying patient site procedure position. A 50:50 mixture of lidocaine and Marcaine was injected into the anterior iliac spine and along planned course of skin incision. Incision was made and dissection carried down to the external oblique aponeurosis. The fibers were opened in their direction. A large direct sac was identified with the spermatic cord structures very much splayed out over them. The cord and sac structures were surrounded at the level of the pubic tubercle with a Nahomy drain, brought up in the operative field. The direct sac was more adherent to the splayed out cord than usual and after significant dissection, was able to be fully reduced. There was no indirect component. The internal ring was felt to be normal diameter. The transversus arch was noted to be very attenuated and thin. At this point, an onlay mesh of polypropylene was secured to pubic tubercle and then running this 0 Prolene suture to Adonis ligament, transitioned to the ilioinguinal ligament inferiorly. The suture was sewn to the transversus arch with a second 0 Prolene suture. The mesh was slightly cut medially for the spermatic cord was repositioned slightly medially and the 2 tails closed around the internal ring with a running 0 Prolene suture, which was then secured to the lateral inguinal ligament. The spermatic cord was returned to its anatomic position. External oblique closed with running 0 Vicryl suture. Subcutaneous sac with inverted 3-0 Vicryl sutures. Skin was closed with 4-0 Monocryl running subcu suture. Steri-Strips dressings were applied. Patient tolerated procedure well, was brought to recovery in stable condition. Bonny Perez assisted in visualization, identification, and performed subcuticular closure. There were no qualified residents or surgeons to assist. Nasir Villafuerte M.D. RG:[id number] /[id number] [facility] NURSING PROGon 08-25-2020 NURSING PROG HNO ID: [id number] Author: Ashlee (Rn) TRACY Mckeon Service: ? Author Type: Registered Nurse Type: Nursing Progress Note Filed: 08/25/2020 12:46 PM Note Text: PACC Nurse Progress Note History AND Physical: PACC Visit Date: 08/24/2020 Original HANDP Date: N/A ED visit Date: N/A Outside HANDP Scanned Date: N/A Labs Within Last 6 Months: CBC: Date 05/09/2020 Hgb 12.6 BMP/CMP: Date 06/23/2020 within acceptable limits HBA1C: Date 06/23/2020 6.0 Imaging Within Last 12 Months: N/A Cardiac Testing: ECHO Date: 07/21/15, Comment: Exam indication: Cardiomyopathy/LBBB - The left ventricle is normal in size. Left ventricular systolic function is normal. EF = 53 ? 5% ( BMI Percentile (PEDS): N/A Risk Assessment: N/A Anesthesia Review: N/A Narrative: N/A Pre-op Considerations: Diabetic Mild cognitive impairment LBBB Cardiomyopathy Leukemia in remission History of falling Chart Check: IN PROGRESS HANDP needs signed Ashlee Mckeon RN August 25, 2020 12:31 PM [facility] HOSPon 08-02-2020 HOSP Patient:William Mullins MRN: Height:5' 2(1.575 m) Weight:164 lb (74.39 kg) Outpatient Medications as of 08/29/20: metFORMIN (GLUCOPHAGE) 500 mg tablet atorvastatin (LIPITOR) 10 mg tablet allopurinol (ZYLOPRIM) 300 mg tablet meloxicam (MOBIC) 7.5 mg tablet donepezil (ARICEPT) 10 mg tablet doxazosin (CARDURA) 2 mg tablet losartan (COZAAR) 25 mg tablet PARoxetine (PAXIL) 10 mg tablet Admission/Clinic Administered Medications as of 08/29/20: lactated ringers infusion ceFAZolin iv piggyback 2 g in D5W (iso-osmotic) 100 mL (ANCEF) Problem List: 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] Essential hypertension, benign [I10] Anxiety state [F41.1] Lumbar spinal stenosis [M48.061] Coronary atherosclerosis [I25.10] Arteriosclerosis of both carotid arteries [I65.23] Hammer toe [M20.40] Gout [M10.9] Benign prostatic hyperplasia with urinary obstruction [N40.1, N13.8] Lumbar disc disease with radiculopathy [M51.16] Inguinal hernia [K40.90] BPH (benign prostatic hyperplasia) [N40.0] 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] Hyperlipidemia LDL goal <100 [E78.5] Retinal hemorrhage [H35.60] Mild cognitive impairment with memory loss [G31.84] Degenerative disc disease, cervical [M50.30] Elevated prostate specific antigen (PSA) [R97.20] Controlled type 2 diabetes mellitus with microalbuminuria, without long-term current use of insulin (HCC) [E11.29, R80.9] LBBB (left bundle branch block) [I44.7] Cardiomyopathy, nonischemic (HCC) [I42.8] History of falling [Z91.81] Allergies: Altace [Ramipril] Gabapentin Toprol Xl [Metoprolol Succinate] Date Verified: 08/24/20 Lab Values No results within the last 30 days for the following basenames: K,HCT Progress Notes (PT [facility]): Mode Oshea PT 08/17/2020 3:15 PM Signed Episode Visit Count: 7 Therapist That Will Oversee The Plan Of Care: Mode Oshea PT Start of Care Date: 07/28/20 Onset Date: 07/28/19 Plan of Care Certification Date: 07/28/20 Next Certification Due Date: 09/22/20 Patient Identified by Name and Date of : Yes REHABILITATION AND SPORTS THERAPY PHYSICAL THERAPY TREATMENT NOTE ASSESSMENT: Michael Mullins demonstrated improvements in tolerance for exercises today with less feeling of being tired. Tandem stance was challenging today with eyes open. The patient will continue to benefit from ongoing skilled physical therapy for progression of balance and lower extremity strength and plan of care update. PLAN FOR NEXT VISIT: POC update SUBJECTIVE: Patient Reason for Visit: Patient reports feeling tired after last therapy. He reports going to volleyball game last night and climbed bleachers with a hand rail and felt much safer and stronger with this activiity. He reports being pleased with progress. Pain: Pain Pain Level: 0 Post Treatment Pain Post Treatment Pain Level: No Change Post Treatment Symptoms: Feels good OBJECTIVE MEASURES WITH LEVEL OF FUNCTION: One loss of balance with tandem stance requiring mod assist from therapist for recovery. TREATMENT: Therapeutic Exercise: 1: SciFit StepOne seat #10, resistance 2 x5 minutes(subjective taken) 2: seated ankle DF/PF 2x20 3: seated B hip flexion 2x12 with 3# ankle weights 4: seated B knee extension 2x12 with 3# ankle weights 6: Sit to stand from chair with UE assist 2x 10 7: lateral step ups on and over dome side of BOSU 1x10 at parallel bars. 8: B forward step ups on dome of BOSU leading with right and left x 10 each with 1 UE assist. Skilled Intervention: Patient was educated in proper exercise technique and purpose for exercises. Skilled judgment was provided in selection of appropriate interventions. Correct performance of therapeutic exercises was facilitated with verbal cuing. Neuromuscular Re-Education: 1: Semi-tandem stance on foam square with eyes closed leading with right and left LE x 30 seconds each. 2: Semi-tandem stance on foam square with eyes open leading with right and left lower extremity x 30 seconds each 3: B tandem stance x30 seconds each 5: NBOS on blue foam eyes closed x45 seconds 6: balance board side to side x15 eyes open and x15 eyes closed 7: balance board front to back x15 eyes open and x15 eyes closed 8: Forward step taps dome of BOSU with 1 UE assist 1x12 each leg Skilled Intervention: Skilled judgment used to assess appropriate program for balance and coordination activity. Insured patient safety with use of contact guard assist to moderate assist as needed. Billing: [facility]: Therapeutic Exercise (98737): 1:1 time: 28 minutes (2 units: 23-37 mins) Neuromuscular Re-education (64421): 1:1 time:15 minutes (1 unit: 8-22 mins) Total time / Length of visit: 43 minutes Effie Calvillo, PT-Almas Oshea PT Previous Version Progress Notes (PT [facility]): Mode Oshea PT 08/15/2020 3:21 PM Signed Episode Visit Count: 6 Therapist That Will Oversee The Plan Of Care: Mode Oshea PT Start of Care Date: 07/28/20 Onset Date: 07/28/19 Plan of Care Certification Date: 07/28/20 Next Certification Due Date: 09/22/20 Patient Identified by Name and Date of : Yes REHABILITATION AND SPORTS THERAPY PHYSICAL THERAPY TREATMENT NOTE ASSESSMENT: Michael Mullins demonstrated improvements in repetitive sit to stand from chair with UE assist and improved SLS right and left leg. The patient will continue to benefit from ongoing skilled physical therapy for progression of lower extremity strength and balance. PLAN FOR NEXT VISIT: Continue with progression of LE strength and challenged balance activities. SUBJECTIVE: Patient Reason for Visit: Patient reports feeling better with walking. He reports good tolerance to last therapy. He denies falls. Pain: Pain Pain Level: 0 Post Treatment Pain Post Treatment Pain Level: 0 Post Treatment Symptoms: I am tired OBJECTIVE MEASURES WITH LEVEL OF FUNCTION: Functional Performance Test Results 30 Second Chair Stand Test: 13 reps(with UE assist) 4 Stage Balance Test Single leg stance - right (sec): 7 sec Single leg stance - left (sec): 6 sec TREATMENT: Therapeutic Exercise: 1: SciFit StepOne seat #10, resistance 2 x5 minutes(subjective taken) 2: seated ankle DF/PF 2x20 3: seated B hip flexion 2x12 with 3# ankle weights 4: seated B knee extension 2x12 with 3# ankle weights 5: 30 second sit to stand from chair with UE assist x 13 6: Sit to stand from chair with UE assist x 10 7: lateral step ups on and over dome side of BOSU 1x10 at parallel bars. 8: B forward step ups on dome of BOSU leading with right and left x 10 each with 1 UE assist. Skilled Intervention: Patient was educated in proper exercise technique and purpose for exercises. Skilled judgment was provided in selection of appropriate interventions. Correct performance of therapeutic exercises was facilitated with verbal cuing. Neuromuscular Re-Education: 1: Semi-tandem stance on foam square with eyes closed leading with right and left LE x 30 seconds each. 2: Semi-tandem stance on foam square with eyes open leading with right and left lower extremity x 30 seconds each 3: B tandem stance x30 seconds each 5: NBOS on blue foam eyes closed x45 seconds 6: balance board side to side x15 eyes open and x15 eyes closed 7: balance board front to back x15 eyes open and x15 eyes closed 8: Forward step taps dome of BOSU with 1 UE assist 1x10 each leg Skilled Intervention: Skilled judgment used to assess appropriate program for balance and coordination activity. Insured patient safety with use of gait belt and contact guard assist. Billing: [facility]: Therapeutic Exercise (08049): 1:1 time: 30 minutes (2 units: 23-37 mins) Neuromuscular Re-education (81149): 1:1 time:15 minutes (1 unit: 8-22 mins) Total time / Length of visit: 45 minutes Effie Calvillo, PT-A Mode Oshea, PT Previous Version Normal [facility] No Panel Information [facility] Vital Signs Date Time Vital Sign Value Performing Clinician Facility 11-13-2024 09:51-0500 Body mass index (BMI) [Ratio] 24.72 kg/m2 Antony Espinoza MD Work Phone: [facility] 11-13-2024 09:51-0500 Body weight 65.32 kg Antony Espinoza MD Work Phone: [facility] 11-13-2024 09:51-0500 Diastolic blood pressure 82 mm[Hg] Antony Espinoza MD Work Phone: [facility] 11-13-2024 09:51-0500 Heart rate 62 /min Antony Espinoza MD Work Phone: [facility] 11-13-2024 09:51-0500 Respiratory rate 16 /min Antony Espinoza MD Work Phone: [facility] 11-13-2024 09:51-0500 SaO2% (BldA) [Mass fraction] 97 % Antony Espinoza MD Work Phone: [facility] 11-13-2024 09:51-0500 Systolic blood pressure 134 mm[Hg] Antony Espinoza MD Work Phone: [facility] 10-02-2024 10:28-0500 Body height 162.6 cm Shaji Gaona MD Work Phone: [facility] 10-02-2024 10:28-0500 Heart rate 73 /min Shaji Gaona MD Work Phone: [facility] 10-02-2024 10:28-0500 SaO2% (BldA) [Mass fraction] 94 % Shaji Gaona MD Work Phone: [facility] 05-20-2023 11:11-0400 Body height 162.6 cm Antony Espinoza MD Work Phone: [facility] 05-20-2023 11:11-0400 Body weight 60.33 kg Antony Espinoza MD Work Phone: [facility] 05-20-2023 11:11-0400 Diastolic blood pressure 48 mm[Hg] Antony Espinoza MD Work Phone: [facility] 05-20-2023 11:11-0400 Heart rate 60 /min Antony Espinoza MD Work Phone: [facility] 05-20-2023 11:11-0400 SaO2% (BldA) [Mass fraction] 96 % Antony Espinoza MD Work Phone: [facility] 05-20-2023 11:11-0400 Systolic blood pressure 110 mm[Hg] Antony Espinoza MD Work Phone: [facility] 05-10-2023 08:10-0400 Body height 162.6 cm Pst 1 [facility] 05-10-2023 08:10-0400 Body temperature 97.7 [degF] Pst 1 [facility] 05-10-2023 08:10-0400 Body weight 61.24 kg Pst 1 [facility] 05-10-2023 08:10-0400 Diastolic blood pressure 68 mm[Hg] Pst 1 [facility] 05-10-2023 08:10-0400 Heart rate 60 /min Pst 1 [facility] 05-10-2023 08:10-0400 Respiratory rate 18 /min Pst 1 [facility] 05-10-2023 08:10-0400 SaO2% (BldA) [Mass fraction] 98 % Pst 1 [facility] 05-10-2023 08:10-0400 Systolic blood pressure 135 mm[Hg] Pst 1 [facility] 05-03-2023 10:40-0400 Body height 162.6 cm Shaji Gaona MD Work Phone: [facility] 05-03-2023 10:40-0400 Heart rate 63 /min Shaji Gaona MD Work Phone: [facility] 05-03-2023 10:40-0400 SaO2% (BldA) [Mass fraction] 97 % Shaji Gaona MD Work Phone: [facility] 05-01-2023 14:41-0400 Body temperature 98.01 [degF] Jennifer Halderman-Lynch PT Work Phone: [facility] 05-01-2023 14:41-0400 Diastolic blood pressure 64 mm[Hg] Jennifer Halderman-Lynch PT Work Phone: [facility] 05-01-2023 14:41-0400 Heart rate 60 /min Jennifer Halderman-Lynch PT Work Phone: [facility] 05-01-2023 14:41-0400 Respiratory rate 18 /min Jennifer Halderman-Lynch PT Work Phone: [facility] 05-01-2023 14:41-0400 SaO2% (BldA) [Mass fraction] 96 % Jennifer Halderman-Lynch PT Work Phone: [facility] 05-01-2023 14:41-0400 Systolic blood pressure 132 mm[Hg] Jennifer Halderman-Lynch PT Work Phone: [facility] 04-25-2023 11:21-0400 Body temperature 97.59 [degF] Jade Swathi ENVIRONMENTAL SUSTAINABILITY MANAGER Work Phone: [facility] 04-25-2023 11:21-0400 Diastolic blood pressure 76 mm[Hg] Jade Swathi ENVIRONMENTAL SUSTAINABILITY MANAGER Work Phone: [facility] 04-25-2023 11:21-0400 Heart rate 62 /min Jade Swathi ENVIRONMENTAL SUSTAINABILITY MANAGER Work Phone: [facility] 04-25-2023 11:21-0400 Respiratory rate 18 /min Jade Swathi ENVIRONMENTAL SUSTAINABILITY MANAGER Work Phone: [facility] 04-25-2023 11:21-0400 SaO2% (BldA) [Mass fraction] 96 % Jade Swathi ENVIRONMENTAL SUSTAINABILITY MANAGER Work Phone: [facility] 04-25-2023 11:21-0400 Systolic blood pressure 118 mm[Hg] Jade Swathi ENVIRONMENTAL SUSTAINABILITY MANAGER Work Phone: [facility] 04-19-2023 16:34-0400 Diastolic blood pressure 70 mm[Hg] Cori Chowdhury PT Work Phone: [facility] 04-19-2023 16:34-0400 Heart rate 70 /min Cori Chowdhury PT Work Phone: [facility] 04-19-2023 16:34-0400 Respiratory rate 16 /min Cori Chowdhury PT Work Phone: [facility] 04-19-2023 16:34-0400 SaO2% (BldA) [Mass fraction] 96 % Cori Torresox PT Work Phone: [facility] 04-19-2023 16:34-0400 Systolic blood pressure 110 mm[Hg] Cori Chowdhury PT Work Phone: [facility] 04-19-2023 16:18-0400 Body temperature 98.2 [degF] Cori Chowdhury PT Work Phone: [facility] 04-17-2023 12:19-0400 Body temperature 98.1 [degF] Jade Swathi ENVIRONMENTAL SUSTAINABILITY MANAGER Work Phone: [facility] 04-17-2023 12:19-0400 Diastolic blood pressure 78 mm[Hg] Jade Swathi ENVIRONMENTAL SUSTAINABILITY MANAGER Work Phone: [facility] 04-17-2023 12:19-0400 Heart rate 65 /min Jade Swathi ENVIRONMENTAL SUSTAINABILITY MANAGER Work Phone: [facility] 04-17-2023 12:19-0400 Respiratory rate 18 /min Jade Swathi ENVIRONMENTAL SUSTAINABILITY MANAGER Work Phone: [facility] 04-17-2023 12:19-0400 SaO2% (BldA) [Mass fraction] 95 % Jade Swathi ENVIRONMENTAL SUSTAINABILITY MANAGER Work Phone: [facility] 04-17-2023 12:19-0400 Systolic blood pressure 118 mm[Hg] Jade Echevarria ENVIRONMENTAL SUSTAINABILITY MANAGER Work Phone: [facility] 2023 14:24-0400 Diastolic blood pressure 81 mm[Hg] Shaji Gaona MD Work Phone: [facility] 2023 14:24-0400 Heart rate 65 /min Shaji Gaona MD Work Phone: [facility] 2023 14:24-0400 SaO2% (BldA) [Mass fraction] 97 % Shaji Gaona MD Work Phone: [facility] 2023 14:24-0400 Systolic blood pressure 140 mm[Hg] Shaji Gaona MD Work Phone: [facility] 04-03-2023 11:33-0400 Diastolic blood pressure 68 mm[Hg] Prinkarissa Solomon ENVIRONMENTAL SUSTAINABILITY MANAGER Work Phone: [facility] 04-03-2023 11:33-0400 Heart rate 63 /min Prinston Solomon ENVIRONMENTAL SUSTAINABILITY MANAGER Work Phone: [facility] 04-03-2023 11:33-0400 Respiratory rate 18 /min Prinston Solomon ENVIRONMENTAL SUSTAINABILITY MANAGER Work Phone: [facility] 04-03-2023 11:33-0400 SaO2% (BldA) [Mass fraction] 98 % Prinston Solomon ENVIRONMENTAL SUSTAINABILITY MANAGER Work Phone: [facility] 04-03-2023 11:33-0400 Systolic blood pressure 136 mm[Hg] Prinston Solomon ENVIRONMENTAL SUSTAINABILITY MANAGER Work Phone: [facility] 04-03-2023 11:03-0400 Body temperature 98.6 [degF] Prinston Solomon ENVIRONMENTAL SUSTAINABILITY MANAGER Work Phone: [facility] 03-29-2023 14:19-0400 Body temperature 98.29 [degF] Monae Bobo RN Work Phone: [facility] 03-29-2023 14:19-0400 Diastolic blood pressure 64 mm[Hg] Monaeaustin Bobo RN Work Phone: [facility] 03-29-2023 14:19-0400 Heart rate 68 /min Monae Bobo RN Work Phone: [facility] 03-29-2023 14:19-0400 Respiratory rate 16 /min Monaeaustin Bobo RN Work Phone: [facility] 03-29-2023 14:19-0400 SaO2% (BldA) [Mass fraction] 96 % Jade Swathi ENVIRONMENTAL SUSTAINABILITY MANAGER Work Phone: [facility] 03-29-2023 14:19-0400 Systolic blood pressure 126 mm[Hg] Jade Swathi ENVIRONMENTAL SUSTAINABILITY MANAGER Work Phone: [facility] 03-29-2023 13:00-0400 Body temperature 98.1 [degF] Jade Swathi ENVIRONMENTAL SUSTAINABILITY MANAGER Work Phone: [facility] 03-29-2023 13:00-0400 Diastolic blood pressure 62 mm[Hg] Jade Swathi ENVIRONMENTAL SUSTAINABILITY MANAGER Work Phone: [facility] 03-29-2023 13:00-0400 Heart rate 64 /min Jade Swathi ENVIRONMENTAL SUSTAINABILITY MANAGER Work Phone: [facility] 03-29-2023 13:00-0400 Respiratory rate 18 /min Jade Swathi ENVIRONMENTAL SUSTAINABILITY MANAGER Work Phone: [facility] 03-27-2023 12:51-0400 Body temperature 97.81 [degF] Jade Swathi ENVIRONMENTAL SUSTAINABILITY MANAGER Work Phone: [facility] 03-27-2023 12:51-0400 Diastolic blood pressure 62 mm[Hg] Jade Swathi ENVIRONMENTAL SUSTAINABILITY MANAGER Work Phone: [facility] 03-27-2023 12:51-0400 Heart rate 65 /min Jade Swathi ENVIRONMENTAL SUSTAINABILITY MANAGER Work Phone: [facility] 03-27-2023 12:51-0400 Respiratory rate 18 /min Jade Swathi ENVIRONMENTAL SUSTAINABILITY MANAGER Work Phone: [facility] 03-27-2023 12:51-0400 SaO2% (BldA) [Mass fraction] 97 % Jade Swathi ENVIRONMENTAL SUSTAINABILITY MANAGER Work Phone: [facility] 03-27-2023 12:51-0400 Systolic blood pressure 120 mm[Hg] Jade Swathi ENVIRONMENTAL SUSTAINABILITY MANAGER Work Phone: [facility] 03-25-2023 08:51-0400 Body height 162.6 cm Antony Espinoza MD Work Phone: [facility] 03-25-2023 08:51-0400 Body weight 56.97 kg Antony Espinoza MD Work Phone: [facility] 03-25-2023 08:51-0400 Diastolic blood pressure 70 mm[Hg] Antony Espinoza MD Work Phone: [facility] 03-25-2023 08:51-0400 Heart rate 60 /min Antony Espinoza MD Work Phone: [facility] 03-25-2023 08:51-0400 SaO2% (BldA) [Mass fraction] 98 % Antony Espinoza MD Work Phone: [facility] 03-25-2023 08:51-0400 Systolic blood pressure 120 mm[Hg] Antony Espinoza MD Work Phone: [facility] 03-24-2023 10:18-0400 Body temperature 97.39 [degF] Jennifer Clark PT Work Phone: [facility] 03-24-2023 10:18-0400 Body weight 56.88 kg Jennifer Clark PT Work Phone: [facility] 03-24-2023 10:18-0400 Diastolic blood pressure 66 mm[Hg] Jennifer Clark PT Work Phone: [facility] 03-24-2023 10:18-0400 Heart rate 55 /min Jennifer Clark PT Work Phone: [facility] 03-24-2023 10:18-0400 Respiratory rate 16 /min Jennifer Clark PT Work Phone: [facility] 03-24-2023 10:18-0400 SaO2% (BldA) [Mass fraction] 97 % Jennifer RamjexiomaraDavid PT Work Phone: [facility] 03-24-2023 10:18-0400 Systolic blood pressure 148 mm[Hg] Jenniefr RamjexiomaraDavid PT Work Phone: [facility] 03-22-2023 08:10-0400 Body height 162.6 cm Lorenzo Carballo PA-C Work Phone: [facility] 03-22-2023 08:10-0400 Body temperature 97.9 [degF] Lorenzo Carballo PA-C Work Phone: [facility] 03-22-2023 08:10-0400 Body weight 60.33 kg Lorenzo Carballo PA-C Work Phone: [facility] 03-22-2023 08:10-0400 Diastolic blood pressure 60 mm[Hg] Lorenzo Carballo PA-C Work Phone: [facility] 03-22-2023 08:10-0400 Heart rate 66 /min Lorenzo Carballo PA-C Work Phone: [facility] 03-22-2023 08:10-0400 Respiratory rate 14 /min Lorenzo Carballo PA-C Work Phone: [facility] 03-22-2023 08:10-0400 SaO2% (BldA) [Mass fraction] 98 % Lorenzo Carballo PA-C Work Phone: [facility] 03-22-2023 08:10-0400 Systolic blood pressure 118 mm[Hg] Lorenzo Carballo PA-C Work Phone: [facility] 03-19-2023 13:16-0400 Body temperature 98.2 [degF] María Mcdonnell RN Work Phone: [facility] 03-19-2023 13:16-0400 Diastolic blood pressure 60 mm[Hg] María Mcdonnell RN Work Phone: [facility] 03-19-2023 13:16-0400 Heart rate 61 /min María Mcdonnell RN Work Phone: [facility] 03-19-2023 13:16-0400 Respiratory rate 16 /min María Mcdonnell RN Work Phone: [facility] 03-19-2023 13:16-0400 SaO2% (BldA) [Mass fraction] 96 % María Mcdonnell RN Work Phone: [facility] 03-19-2023 13:16-0400 Systolic blood pressure 112 mm[Hg] María Mcdonnell RN Work Phone: [facility] 03-08-2023 20:45-0400 Body temperature 98.6 [degF] Dr. Antony Espinoza Work Phone: [facility] 03-08-2023 20:45-0400 Diastolic blood pressure 79 mm[Hg] Dr. Antony Espinoza Work Phone: [facility] 03-08-2023 20:45-0400 Heart rate 62 /min Dr. Antony Espinoza Work Phone: [facility] 03-08-2023 20:45-0400 Respiratory rate 17 /min Dr. Antony Espinoza Work Phone: [facility] 03-08-2023 20:45-0400 SaO2% (BldA) [Mass fraction] 97 % Dr. Antony Espinoza Work Phone: [facility] 03-08-2023 20:45-0400 Systolic blood pressure 155 mm[Hg] Dr. Antony Espinoza Work Phone: [facility] 03-08-2023 03:21-0400 Body mass index (BMI) [Ratio] 22.7 kg/m2 Dr. Antony Espinoza Work Phone: [facility] 03-08-2023 03:21-0400 Body weight 60.[address] Antony Espinoza Work Phone: [facility] 03-06-2023 01:18-0400 Body height 162.[address] Antony Espinoza Work Phone: [facility] 03-06-2023 00:25-0400 Body temperature 98.9 [degF] [facility] 03-06-2023 00:25-0400 Diastolic blood pressure 78 mm[Hg] [facility] 03-06-2023 00:25-0400 Heart rate 75 /min [facility] 03-06-2023 00:25-0400 Respiratory rate 15 /min [facility] 03-06-2023 00:25-0400 SaO2% (BldA) [Mass fraction] 95 % [facility] 03-06-2023 00:25-0400 Systolic blood pressure 158 mm[Hg] [facility] 03-05-2023 21:32-0400 Body mass index (BMI) [Ratio] 20.7 kg/m2 [facility] 03-05-2023 21:32-0400 Body weight 60.1 kg [facility] 03-05-2023 19:16-0400 Body height 170.18 cm [facility] 12-27-2022 10:03-0500 Body height 157.5 cm Blanche Munoz MD Work Phone: [facility] 12-27-2022 10:03-0500 Body weight 59.42 kg Blanche Munoz MD Work Phone: [facility] 12-27-2022 10:03-0500 Diastolic blood pressure 70 mm[Hg] Blanche Munoz MD Work Phone: [facility] 12-27-2022 10:03-0500 Heart rate 63 /min Blanche Munoz MD Work Phone: [facility] 12-27-2022 10:03-0500 Systolic blood pressure 143 mm[Hg] Blanche Munoz MD Work Phone: [facility] 12-13-2022 13:17-0500 Body weight 58.06 kg Shanthi Rangel MD Work Phone: [facility] 12-13-2022 13:17-0500 Diastolic blood pressure 74 mm[Hg] Shanthi Rangel MD Work Phone: [facility] 12-13-2022 13:17-0500 Heart rate 61 /min Shanthi Rangel MD Work Phone: [facility] 12-13-2022 13:17-0500 Systolic blood pressure 134 mm[Hg] Shanthi Rangel MD Work Phone: [facility] 11-26-2022 14:11-0500 Body weight 60.6 kg Ian Holly MD Work Phone: [facility] 11-26-2022 14:11-0500 Diastolic blood pressure 64 mm[Hg] Ian Holly MD Work Phone: [facility] 11-26-2022 14:11-0500 Heart rate 64 /min Ian Holly MD Work Phone: [facility] 11-26-2022 14:11-0500 SaO2% (BldA) [Mass fraction] 97 % Ian Holly MD [facility] [facility] 11-26-2022 14:11-0500 Systolic blood pressure 124 mm[Hg] Ian Holly MD Work Phone: [facility] 11-23-2022 09:01-0500 Body height 157.5 cm Lorenzo Carballo PA-C Work Phone: [facility] 11-23-2022 09:01-0500 Body temperature 97.81 [degF] Lorenzo Carballo PA-C Work Phone: [facility] 11-23-2022 09:01-0500 Body weight 58.97 kg Lorenzo Carballo PA-C Work Phone: [facility] 11-23-2022 09:01-0500 Diastolic blood pressure 70 mm[Hg] Lorenzo Carballo PA-C Work Phone: [facility] 11-23-2022 09:01-0500 Heart rate 82 /min Lorenzo Carballo PA-C Work Phone: [facility] 11-23-2022 09:01-0500 Respiratory rate 16 /min Lorenzo Carballo PA-C Work Phone: [facility] 11-23-2022 09:01-0500 SaO2% (BldA) [Mass fraction] 93 % Lorenzo Carballo PA-C Work Phone: [facility] 11-23-2022 09:01-0500 Systolic blood pressure 128 mm[Hg] Lorenzo Carballo PA-C Work Phone: [facility] 06-05-2022 15:49-0400 Body weight 61.15 kg Shanthi Rangel MD Work Phone: [facility] 06-05-2022 15:49-0400 Diastolic blood pressure 66 mm[Hg] Shanthi Rangel MD Work Phone: [facility] 06-05-2022 15:49-0400 Heart rate 62 /min Shanthi Rangel MD Work Phone: [facility] 06-05-2022 15:49-0400 SaO2% (BldA) [Mass fraction] 95 % Shanthi Rangel MD Work Phone: [facility] 06-05-2022 15:49-0400 Systolic blood pressure 151 mm[Hg] Shantih Rangel MD Work Phone: [facility] 05-07-2022 10:34-0400 Body weight 60.33 kg Antony Espinoza MD Work Phone: [facility] 05-07-2022 10:34-0400 Diastolic blood pressure 72 mm[Hg] Antony Espinoza MD Work Phone: [facility] 05-07-2022 10:34-0400 Heart rate 56 /min Antony Espinoza MD Work Phone: [facility] 05-07-2022 10:34-0400 Systolic blood pressure 138 mm[Hg] Antony Espinoza MD Work Phone: [facility] Encounters Encounter Date Encounter Type Care Provider Facility Start: 04-09-2025 End: 04-09-2025 [facility] Facility:[facility] Start: 03-08-2025 End: 03-08-2025 Refill Shaji Gaona MD Work Phone: [facility] Comment on above: Refill Request Start: 01-29-2025 End: 01-29-2025 Refill Antony Espinoza MD Work Phone: [facility] Comment on above: Refill Request Start: 01-22-2025 End: 01-25-2025 Refill Antony Esp[facility]za MD [facility] Phone[facility] Comment on above: Refill Request Start: 01-08-2025 End: 01-08-2025 ambulatory LORI GOODMAN Facility:[facility] Start: 01-08-2025 End: 01-08-2025 Patient encounter procedure Lori Goodman Work Phone: Podiatry Comment on above: Onychomycosis (Prima ry Dx); Pain in toe of left foot; Pain in toe of right foot; Diabetic polyneuropathy associated with type 2 diabetes mellitus (HCC); Hammer toe of left foot; Callus of foot Start: 11-16-2024 End: 11-17-2024 Telephone encounter Antony Espinoza MD Work Phone: [facility] Comment on above: Results Start: 11-13-2024 End: 11-13-2024 ambulatory ANTONY ESPINOZA Facility:[facility] Start: 11-13-2024 End: 11-13-2024 Patient encounter procedure Antony Espinoza MD Work Phone: [facility] Comment on above: Primary hypertension (Primary Dx); Encounter for immunization; Atherosclerosis of [place] coronary artery of [place] heart without angina pectoris; Hyperlipidemia LDL goal <100; Cardiomyopathy, nonischemic (HCC); Chronic systolic heart failure (HCC); Mild cognitive impairment with memory loss; Lumbar disc disease with radiculopathy; Controlled type 2 diabetes mellitus with microalbuminuria, without long-term current use of insulin (HCC) (HCC); BPH with urinary obstruction; Type 2 diabetes mellitus with other specified complication, without long-term current use of insulin (HCC); Iron deficiency anemia, unspecified iron deficiency anemia type; 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); History of splenectomy; Elevated alkaline phosphatase level; Screening for depression; Gout, unspecified cause, unspecified chronicity, unspecified site Start: 10-14-2024 End: 10-14-2024 Refill Antony Espinoza MD [facility] Phone[facility] Comment on above: Refill Request Start: 10-02-2024 End: 10-02-2024 Patient encounter procedure Shaji Gaona MD Work Phone: [facility] Comment on above: 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); Nocturia; Incomplete bladder emptying Start: 10-02-2024 End: 10-02-2024 ambulatory SHAJI GAONA Facility:[facility] Start: 09-28-2024 End: 09-28-2024 ambulatory LORI MAXINE Facility:[facility] Start: 09-28-2024 End: 09-28-2024 Patient encounter procedure Lori Goodman Work Phone: Podiatry Comment on above: Onychomycosis (Prima ry Dx); Pain in toe of left foot; Pain in toe of right foot; Diabetic polyneuropathy associated with type 2 diabetes mellitus (HCC); Hammer toe of left foot Start: 06-30-2024 Refill Antony Espinoza MD Work Phone: [facility] Comment on above: Refill Request requesting medicatio n that is Start: 05-26-2024 End: 05-27-2024 ambulatory LORI MAXINE Facility:[facility] Start: 05-26-2024 End: 05-26-2024 Patient encounter procedure Lori Goodman Work Phone: Podiatry Comment on above: Onychomycosis (Prima ry Dx); Pain in toe of left foot; Pain in toe of right foot; Callus of foot; Diabetic polyneuropathy associated with type 2 diabetes mellitus (HCC); Hammer toe of left foot Start: 05-12-2024 End: 05-12-2024 ambulatory [facility] Facility:[facility] Start: 03-24-2024 Refill Antony Espinoza MD Work Phone: [facility] Comment on above: Refill Request requesting medicatio n not on list Start: 03-10-2024 Refill Lorenzo Carballo PA-C Work Phone: Urology Comment on above: Refill Request Start: 02-20-2024 End: 02-20-2024 Patient encounter procedure Lori Goodman Work Phone: Podiatry Comment on above: Onychomycosis (Prima ry Dx); Pain in toe of left foot; Pain in toe of right foot; Xerosis cutis; Callus of foot; Hammer toe of left foot; Diabetic polyneuropathy associated with type 2 diabetes mellitus (HCC) Start: 01-20-2024 Telephone encounter Antony Espinoza MD Work Phone: [facility] Comment on above: Results Start: 01-01-2024 End: 01-01-2024 Patient encounter procedure Dmitry Painting MD Work Phone: Ophthalmology Comment on above: Left posterior capsu lar opacification (Primary Dx); Pseudophakia; Amblyopia, right eye; Hypertensive retinopathy, bilateral Start: 10-07-2023 End: 10-07-2023 ambulatory SHAJI GAONA Facility:[facility] Start: 08-01-2023 Refill Antony Espinoza MD Work Phone: [facility] Comment on above: Refill Request Start: 05-30-2023 End: 05-30-2023 Nursing evaluation of patient and report Nurse [facility] [place] Work Phone: [facility] Comment on above: 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) Start: 05-30-2023 End: 05-30-2023 Nursing evaluation of patient and report Nurse [facility] [place] Work Phone: [facility] Comment on above: 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) Start: 05-27-2023 End: 05-27-2023 Nursing evaluation of patient and report Nurse [facility] [place] Work Phone: [facility] Comment on above: 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) Start: 05-20-2023 End: 05-20-2023 Patient encounter procedure Antony Espinoza MD Work Phone: [facility] Comment on above: Urinary retention (P rimary Dx); Anemia, unspecified type; Mild cognitive impairment with memory loss; Atherosclerosis of [place] coronary artery of [place] heart without angina pectoris; Cardiomyopathy, nonischemic (HCC); Type 2 diabetes mellitus with other specified complication, without long-term current use of insulin (HCC); 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); Benign prostatic hyperplasia, unspecified whether lower urinary tract symptoms present Start: 05-15-2023 Telephone encounter Shaji Gaona MD Work Phone: [facility] Comment on above: Patient Update surgery question Start: 05-14-2023 Telephone encounter Antony Espinoza MD Work Phone: [facility] Comment on above: Medical Clearance Fo rm-Urology Procedure Start: 05-14-2023 End: 05-14-2023 ambulatory [facility] Facility:[facility] Start: 05-10-2023 End: 05-10-2023 Admission to [facility] Start: 05-10-2023 End: 05-10-2023 ambulatory Pst 1 Pre Surgical Testing Comment on above: Pre-op examination; Benign prostatic hyperplasia with urinary retention; Retention of urine, unspecified; Hyperlipidemia LDL goal <100; Primary hypertension; Atherosclerosis of [place] coronary artery of [place] heart without angina pectoris; Cardiomyopathy, nonischemic (HCC); Controlled type 2 diabetes mellitus with microalbuminuria, without long-term current use of insulin (HCC); Iron deficiency anemia, unspecified iron deficiency anemia type; Type 2 diabetes mellitus with other specified complication, without long-term current use of insulin (HCC); Arteriosclerosis of both carotid arteries; Mild cognitive impairment with memory loss Start: 05-10-2023 End: 05-10-2023 Preprocedural examination done Pst 1 Pre Surgical Testing Start: 05-07-2023 End: 05-20-2023 Preprocedural examination done Pst 1 [facility] Work Phone: Start: 05-03-2023 Telephone encounter Shaji Gaona MD Work Phone: [facility] Comment on above: Surgery Scheduled Start: 05-03-2023 End: 05-03-2023 Patient encounter procedure Shaji Gaona MD Work Phone: [facility] Comment on above: 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); Poor urinary stream Start: 05-01-2023 End: 05-01-2023 Home visit Jennifer Clark PT Work Phone: [facility] Comment on above: PT AGENCY DC W VISIT Start: 04-25-2023 End: 04-25-2023 Home visit Jade Swathi ENVIRONMENTAL SUSTAINABILITY MANAGER Work Phone: [facility] Comment on above: ENVIRONMENTAL SUSTAINABILITY MANAGER ROUTINE Start: 04-23-2023 Telephone encounter Antony Espinoza MD Work Phone: [facility] Comment on above: Extend PT-need verba l Start: 04-23-2023 End: 04-23-2023 Home visit Cori Chowdhury PT Work Phone: [facility] Comment on above: TELEPHONE CONTACT Start: 04-19-2023 End: 04-19-2023 Home visit Cori Chowdhury PT Work Phone: [facility] Comment on above: PT REASSESSMENT Start: 04-19-2023 Telephone encounter Harinder Norris RN Work Phone: [facility] Comment on above: Home Care (Notificat ion of skilled home health nurse discipline discharge 04/09/23.) Start: 04-17-2023 End: 04-17-2023 Home visit Jade Echevarria ENVIRONMENTAL SUSTAINABILITY MANAGER Work Phone: [facility] Comment on above: ENVIRONMENTAL SUSTAINABILITY MANAGER ROUTINE Start: 2023 End: 2023 Patient encounter procedure Shaji Gaona MD Work Phone: [facility] Comment on above: 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); Nocturia; Poor urinary stream Start: 04-03-2023 End: 04-03-2023 Home visit Jose Solomon ENVIRONMENTAL SUSTAINABILITY MANAGER Work Phone: [facility] Comment on above: ENVIRONMENTAL SUSTAINABILITY MANAGER ROUTINE Start: 03-29-2023 End: 03-29-2023 Home visit Jade Echevarria ENVIRONMENTAL SUSTAINABILITY MANAGER Work Phone: [facility] Comment on above: ENVIRONMENTAL SUSTAINABILITY MANAGER ROUTINE SN ROUTINE Start: 03-29-2023 End: 03-29-2023 Nursing evaluation of patient and report Nurse [facility] Work Phone: Urology Comment on above: 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) Start: 03-27-2023 End: 03-27-2023 Home visit Jade Echevarria ENVIRONMENTAL SUSTAINABILITY MANAGER Work Phone: [facility] Comment on above: ENVIRONMENTAL SUSTAINABILITY MANAGER ROUTINE Start: 03-25-2023 Telephone encounter Self [facility] Comment on above: Home Care Appointment Start: 03-25-2023 End: 03-25-2023 Patient encounter procedure Antony Espinzoa MD Work Phone: [facility] Comment on above: Osteoarthritis of verna th knees, unspecified osteoarthritis type (Primary Dx); Type 2 diabetes mellitus with diabetic polyneuropathy, without long-term current use of insulin (HCC); Mild cognitive impairment with memory loss; Lumbar disc disease with radiculopathy; Atherosclerosis of [place] coronary artery of [place] heart without angina pectoris; Cardiomyopathy, nonischemic (HCC); Controlled type 2 diabetes mellitus with microalbuminuria, without long-term current use of insulin (HCC); Benign prostatic hyperplasia with urinary obstruction; 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); History of splenectomy; Urinary retention; Debility; Anxiety state Start: 03-24-2023 End: 03-24-2023 Home visit Jennifer Clark PT Work Phone: [facility] Comment on above: PT EVAL Start: 03-22-2023 Telephone encounter Lorenzo benoit PA-C Work Phone: Urology Comment on above: Patient Update Start: 03-22-2023 End: 03-22-2023 Patient encounter procedure Lorenzo Carballo PA-C Work Phone: Urology Comment on above: 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); 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 Ford Espinoza Work Phone: [facility] Start: 03-07-2023 Non-patient / Non-visit Dr. Ford Espinoza Work Phone: [facility] Start: 03-06-2023 End: 03-08-2023 Evaluation and management of inpatient [facility] 3 Start: 03-06-2023 End: 03-08-[address] Antony Espinoza Work Phone: [facility] Work Phone: Start: 02-27-2023 End: 02-28-2023 Orders Only Karyna Reeves MD Work Phone: Endocrine Surgery Comment on above: Hyperparathyroidism (HCC) (Primary Dx) Start: 02-26-2023 Orders Only Karyna feldman MD Work Phone: Endocrine Surgery Comment on above: Hyperparathyroidism (HCC) (Primary Dx) Start: 02-21-2023 Refill Antony Espinoza MD Work Phone: [facility] Comment on above: Refill Request Start: 02-08-2023 Refill Antony Espinoza MD Work Phone: [facility] Comment on above: Refill Request Start: 01-30-2023 Refill Antony Espinoza MD Work Phone: [facility] Comment on above: Refill Request Start: 12-27-2022 End: 12-27-2022 Orders Only Blanche Munoz MD Work Phone: Endocrine Surgery Comment on above: Hyperparathyroidism (HCC) (Primary Dx) Primary hyperparathy roidism (HCC) Hypercalcemia [E83.5 2] MM OR 02/27/23 (Parat hyroidectomy/) Start: 12-19-2022 Telephone encounter Blanche Munoz MD Work Phone: Endocrine Surgery Comment on above: Consult (Face Sheet) Start: 12-18-2022 End: 12-18-2022 Patient encounter procedure Lori Maxine Work Phone: Podiatry Comment on above: Onychomycosis (Prima ry Dx); Pain in toe of left foot; Pain in toe of right foot; Diabetic polyneuropathy associated with type 2 diabetes mellitus (HCC); Xerosis cutis Start: 12-13-2022 End: 12-13-2022 Patient encounter procedure Shanthi Rangel MD Work Phone: Endocrinology Comment on above: Hypercalcemia (Prima ry Dx); Primary hyperparathyroidism (HCC) Start: 12-07-2022 Refill Antony Espinoza MD Work Phone: [facility] Comment on above: Refill Request Start: 11-26-2022 End: 11-26-2022 Patient encounter procedure Ian Holly MD Work Phone: Cardiology Comment on above: Primary hypertension (Primary Dx); Atherosclerosis of [place] coronary artery of [place] heart without angina pectoris; Hyperlipidemia LDL goal <100; LBBB (left bundle branch block); Cardiomyopathy, nonischemic (HCC) Start: 11-23-2022 End: 11-23-2022 Patient encounter procedure Lorenzo Carballo PA-C Work Phone: Urology Comment on above: Benign prostatic hyp erplasia, unspecified whether lower urinary tract symptoms present (Primary Dx) Start: 09-11-2022 Refill Antony Espinoza MD Work Phone: [facility] Comment on above: Refill Request Start: 08-15-2022 Refill Antony Espinoza MD Work Phone: [facility] Comment on above: Refill Request Start: 07-27-2022 End: 07-27-2022 Patient encounter procedure Lori Joaquinlisette Work Phone: Podiatry Comment on above: Onychomycosis (Prima ry Dx); Pain in toe of left foot; Pain in toe of right foot; Diabetic polyneuropathy associated with type 2 diabetes mellitus (HCC); Hyperkeratosis; Nevus Start: 07-26-2022 Refill Antony Espinoza MD Work Phone: [facility] Comment on above: Refill Request Start: 06-29-2022 Refill Antony Espinoza MD Work Phone: [facility] Comment on above: Refill Request; Refi ll Request Start: 06-05-2022 End: 06-05-2022 Patient encounter procedure Shatnhi Rangel MD Work Phone: Endocrinology Comment on above: Hyperparathyroidism (HCC) (Primary Dx); Hypercalcemia Start: 05-09-2022 Telephone encounter Antony Espinoza MD Work Phone: [facility] Comment on above: Results Start: 05-07-2022 End: 05-07-2022 Patient encounter procedure Antony Espinoza MD Work Phone: [facility] Comment on above: Hypercalcemia (Prima ry Dx); Anemia, unspecified type; Type 2 diabetes mellitus with diabetic polyneuropathy, without long-term current use of insulin (HCC); Primary hypertension; Hyperlipidemia LDL goal <100; Cardiomyopathy, nonischemic (HCC); Controlled type 2 diabetes mellitus with microalbuminuria, without long-term current use of insulin (HCC); 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); Benign prostatic hyperplasia, unspecified whether lower urinary tract symptoms present; Arteriosclerosis of both carotid arteries; Renal insufficiency Start: 04-17-2022 End: 04-17-2022 Patient encounter procedure Lori Goodman Work Phone: Podiatry Comment on above: Onychomycosis (Prima ry Dx); Pain in toe of left foot; Pain in toe of right foot; Diabetic polyneuropathy associated with type 2 diabetes mellitus (HCC); Hyperkeratosis; Nevus Start: 04-13-2022 Refill Antony Espinoza MD Work Phone: [facility] Comment on above: Refill Request Start: 03-22-2022 Refill Antony Espinoza MD Work Phone: [facility] Comment on above: Refill Request Start: 03-21-2022 Refill Alex Sexton APRN.SHIRT IRONER, DNP Work Phone: [facility] Comment on above: Refill Request Start: 03-05-2022 Refill Antony Espinoza MD Work Phone: [facility] Comment on above: Refill Request Start: 09-26-2021 End: 09-26-2021 Subsequent hospital visit by physician [facility] Work Phone: Radiology Comment on above: Pneumonia due to COV ID-19 virus [U07.1, J12.82] Procedures Date Procedure Procedure Detail Performing Clinician Start: 11-13-2024 Adult depression screening assessment Antony Espinoza MD Work Phone: Start: 10-02-2024 End: 10-02-2024 Devante post-voiding residual urine&/bladder cap Shaji Gaona MD Work Phone: Start: 01-01-2024 Computerized ophthalmic imaging retina Dmitry Painting MD Work Phone: Start: 01-01-2024 Post-cataract laser surgery Dmitry Painting MD Work Phone: Start: 05-30-2023 BLADDER SCAN Shaji Gaona MD Work Phone: Start: 2023 Us pelvic nonobstetric image dcmtn limited/f/u Shaji Gaona MD Work Phone: Start: 03-06-2023 Radiologic examination of knee Dr. Antony Espinoza Work Phone: Start: 03-05-2023 Plain chest X-ray Start: 02-27-2023 Us soft tissue head & neck real time imge docfrancia Reeves MD Work Phone: Start: 12-27-2022 Us soft tissue head & neck real time imge docfrancia Munoz MD Work Phone: Start: 12-27-2022 Dxa bone density study 1/> sites axial abigail Rangel MD Work Phone: Start: 11-23-2022 Urnls dip stick/tablet rgnt auto w/o microscopy Lorenzo Carballo PA-C Work Phone: Start: 05-07-2022 Adult depression screening assessment Antony Espinoza MD Work Phone: Start: 09-26-2021 Radiologic exam chest 2 views Antony Espinzoa MD Work Phone: Start: 01-09-2021 Adult depression screening assessment Antony Espinoza MD Work Phone: Start: 02-07-2015 H/O splenectomy History of splenectomy Antony Espinoza MD Work Phone: H/O splenectomy History of splenectomy Ford Espinoza MD Work Phone: H/O splenectomy History of splenectomy Ford Espinoza MD Work Phone: Viral antigen assay Dr. Huey Espinoza Work Phone: Plan of Treatment Date Care Activity Detail Author Start: 11-28-2027 Urine microalbumin profile [facility] Start: 11-13-2025 Covid-19 Vaccine ( season) Covid-19 Vaccine ( season) [facility] Comment on above: Postponed from 07/19/2024 (Declined at t his time) Start: 11-13-2025 Depression Screening Depression Screening [facility] Start: 11-13-2025 Hepatitis B screening Urine Albumin:Creatinine Ratio [facility] Start: 11-13-2025 Hepatitis B surface antibody level LDL Cholesterol [facility] Start: 11-13-2025 RSV Vaccine (1 - 1-dose 75+ series) RSV Vaccine (1 - 1-dose 75+ series) [facility] Comment on above: Postponed from 2017 (Declined at t his time) Start: 11-13-2025 Shingrix Vaccine (1 of 2) Shingrix Vaccine (1 of 2) [facility] Comment on above: Postponed from 03/31/2012 (Declined at t his time) Start: 10-12-2025 End: 10-12-2025 Patient encounter procedure 10/12/2025 9:00 AM EST Office Visit [facility] [address] [place] [address] Shaji Gaona MD [address] [place] [address] 12 month follow up [facility] Comment on above: 12 month follow up Start: 09-28-2025 Diabetic foot examination Diabetic Foot Exam [facility] Start: 06-07-2025 End: 06-07-2025 Patient encounter procedure Cardiology Comment on above: Cardiomyopathy, nonischemic (HCC) [I42.8 ]; Chronic systolic heart failure (HCC) [I50.22]; Controlled type 2 diabetes mellitus with microalbuminuria, without long-term current use of insulin (HCC) (HCC) [E11.29, R80.9] Start: 05-17-2025 End: 05-17-2025 Patient encounter procedure 05/17/2025 1:00 PM EDT Office [facility] [address] [place] [address] Antony Espinoza MD [address] [place] [id number] [facility] Comment on above: physical Start: 05-14-2025 Hemoglobin A1c measurement HbA1C [facility] Start: 04-09-2025 End: 04-09-2025 Patient encounter procedure Podiatry Comment on above: 3mth follow up Start: 01-08-2025 End: 01-08-2025 Patient encounter procedure Podiatry Comment on above: 3mth follow up Start: 01-01-2025 Glaucoma screening Dilated Retinal Exam [facility] Start: 12-26-2024 Hepatitis B surface antibody level LDL Cholesterol [facility] Start: 11-21-2024 Diabetic foot examination Diabetic Foot Exam [facility] Start: 11-18-2024 Advance Directive Discussion Advance Directive Discussion [facility] Start: 11-13-2024 End: 02-12-2025 Comprehensive metabolic 2000 panel - Serum or Plasma [facility] Work Phone: Comment on above: Expected: 11/13/2024, Expires: Start: 11-13-2024 End: 02-12-2025 Hemoglobin A1c in Blood [facility] Comment on above: Expected: 11/13/2024, Expires: Start: 11-13-2024 End: 02-12-2025 LIPID PANEL, NONFASTING [facility] Comment on above: Expected: 11/13/2024, Expires: Start: 11-13-2024 End: 02-12-2025 Microalbumin/Creatinine [Mass Ratio] in Urine [facility] Comment on above: Expected: 11/13/2024, Expires: Start: 11-13-2024 End: 02-12-2025 Urate [Mass/volume] in Serum or Plasma [facility] Comment on above: Expected: 11/13/2024, Expires: Start: 11-13-2024 End: 11-13-2024 Patient encounter procedure 11/13/2024 10:00 AM EST Office Visit [facility] [address] [place] [address] Antony Espinoza MD [address] [place] [id number] [facility] Comment on above: Physical Start: 10-06-2024 End: 10-06-2024 Patient encounter procedure 10/06/2024 10:00 AM EST Office Visit [facility] [place] [address] Shaji Gaona MD [address] [place] [address] 12 months [facility] Comment on above: 12 months Start: 10-02-2024 End: 10-02-2024 Patient encounter procedure 10/02/2024 10:45 AM EST Office Visit [facility] [address] [place] [address] Shaji Gaona MD [address] [place] [address] 12 months/ PVR [facility] Comment on above: 12 months/ PVR Start: 08-28-2024 End: 08-28-2024 Patient encounter procedure 08/28/2024 8:00 AM EDT Office Visit Podiatry [address] [place] [address] Lori Goodman [address] [place] [address] 3 month follow up diabetic foot care Podiatry Comment on above: 3 month follow up diabetic foot care Start: 07-19-2024 Covid-19 Vaccine ( season) Covid-19 Vaccine ( season) [facility] Start: 07-19-2024 Influenza vaccination [facility] Start: 05-26-2024 End: 05-26-2024 Patient encounter procedure 05/26/2024 8:00 AM EDT Office Visit Podiatry [address] [place] [address] Lori Goodman [address] [place] [address] 3 month follow up nail care Podiatry Comment on above: 3 month follow up nail care Start: 03-29-2024 BP CONTROLLED (<130/80) BP CONTROLLED (<130/80) [facility] Start: 03-27-2024 BP CONTROLLED (<130/80) BP CONTROLLED (<130/80) [facility] Start: 03-25-2024 ANNUAL PCP TEAM CHRONIC DISEASE VISIT ANNUAL PCP TEAM CHRONIC DISEASE VISIT [facility] Start: 03-25-2024 BP CONTROLLED (<130/80) BP CONTROLLED (<130/80) [facility] Start: 03-22-2024 BP CONTROLLED (<130/80) BP CONTROLLED (<130/80) [facility] Start: 03-19-2024 BP CONTROLLED (<130/80) BP CONTROLLED (<130/80) [facility] Start: 01-20-2024 End: 04-20-2024 CBC W Auto Differential panel - Blood CBC + DIFF Lab Routine Anemia, unspecified type Expected: 01/20/2024, Expires: 04/20/2024 [facility] Work Phone: Comment on above: Expected: 01/20/2024, Expires: Start: 01-20-2024 End: 04-20-2024 Comprehensive metabolic 2000 panel - Serum or Plasma COMP METABOLIC PANEL Lab Routine MOISES (acute kidney injury) (HCC) Expected: 01/20/2024, Expires: 04/20/2024 [facility] Work Phone: Comment on above: Expected: 01/20/2024, Expires: Start: 01-20-2024 End: 04-20-2024 Ferritin [Mass/volume] in Serum or Plasma FERRITIN BLD Lab Routine Anemia, unspecified type Expected: 01/20/2024, Expires: 04/20/2024 [facility] Work Phone: Comment on above: Expected: 01/20/2024, Expires: Start: 01-20-2024 End: 04-20-2024 Iron and Iron binding capacity panel - Serum or Plasma IRON + TIBC Lab Routine Anemia, unspecified type Expected: 01/20/2024, Expires: 04/20/2024 [facility] Work Phone: Comment on above: Expected: 01/20/2024, Expires: Start: 01-20-2024 End: 04-20-2024 Magnesium [Mass/volume] in Serum or Plasma MAGNESIUM BLD Lab Routine MOISES (acute kidney injury) (HCC) Anemia, unspecified type Expected: 01/20/2024, Expires: 04/20/2024 [facility] Work Phone: Comment on above: Expected: 01/20/2024, Expires: 4 Start: 11-26-2023 BP CONTROLLED (<130/80) BP CONTROLLED (<130/80) [facility] Start: 11-23-2023 BP CONTROLLED (<130/80) BP CONTROLLED (<130/80) [facility] Start: 11-20-2023 Hemoglobin A1c measurement HbA1C [facility] Start: 11-20-2023 Hemoglobin A1c/Hemoglobin.total in Blood HBA1C [facility] Start: 11-18-2023 Advance Directive Discussion Advance Directive Discussion [facility] Start: 11-18-2023 Behavioral Health Screening Behavioral Health Screening [facility] Start: 11-18-2023 Depression Assessment Depression Assessment [facility] Start: 11-15-2023 ANNUAL PCP TEAM CHRONIC DISEASE VISIT ANNUAL PCP TEAM CHRONIC DISEASE VISIT [facility] Start: 07-19-2023 Covid-19 Vaccine () Covid-19 Vaccine () [facility] Start: 07-19-2023 Influenza vaccination [facility] Start: 05-20-2023 End: 07-20-2023 Hemoglobin A1c in Blood [facility] Work Phone: Comment on above: Expected: 05/20/2023, Expires: 3 Start: 05-16-2023 Hemoglobin A1c/Hemoglobin.total in Blood HBA1C [facility] Start: 05-07-2023 Adult depression screening assessment DEPRESSION SCREENING [facility] Start: 05-07-2023 ANNUAL PCP TEAM CHRONIC DISEASE VISIT ANNUAL PCP TEAM CHRONIC DISEASE VISIT [facility] Start: 05-07-2023 Hepatitis B screening URINE ALBUMIN:CREATININE RATIO [facility] Start: 05-07-2023 Hepatitis B surface antibody level LDL CHOLESTEROL [facility] Start: 04-17-2023 3 comp foot exam completed DIABETIC FOOT EXAM [facility] Start: 03-08-2023 Patient discharge [facility] Start: 03-06-2023 Following clinical pathway protocol [facility] Start: 03-06-2023 Aspiration precautions [facility] Start: 03-06-2023 Assessment of risk of venous thromboembolism [facility] Start: 03-06-2023 Care regimes management [facility] Start: 03-06-2023 Fall prevention [facility] Start: 03-06-2023 Inhalation therapy procedure [facility] Start: 03-06-2023 Insertion of catheter into peripheral vein [facility] Start: 03-06-2023 Introduction of urinary catheter [facility] Start: 03-06-2023 Measuring intake and output [facility] Start: 03-06-2023 Oxygen therapy [facility] Start: 03-06-2023 Providing care according to standard [facility] Start: 03-06-2023 Provision of activity privileges [facility] Start: 03-06-2023 Referral to occupational therapist [facility] Start: 03-06-2023 Referral to service [facility] Start: 03-06-2023 Verification routine [facility] Start: 03-06-2023 End: 03-06-2023 [facility] Start: 03-06-2023 Viral nucleic acid assay [facility] Start: 03-06-2023 Admission procedure [facility] Start: 01-10-2023 Covid-19 Vaccine (6 - Pfizer risk series) Covid-19 Vaccine (6 - Pfizer risk series) [facility] Start: 12-28-2022 End: 12-27-2023 Basic metabolic 2000 panel - Serum or Plasma BASIC METABOLIC PNL Lab Routine Hyperparathyroidism (HCC) Expected: 12/28/2022, Expires: 12/27/2023 [facility] Work Phone: Comment on above: Expected: 12/28/2022, Expires: 4 Start: 12-28-2022 End: 12-27-2023 CBC W Auto Differential panel - Blood CBC + DIFF Lab Routine Hyperparathyroidism (HCC) Expected: 12/28/2022, Expires: 12/27/2023 [facility] Work Phone: Comment on above: Expected: 12/28/2022, Expires: 4 Start: 12-28-2022 End: 12-27-2023 SARS-CoV-2 (COVID-19) RNA [Presence] in Respiratory specimen by FLOYD with probe detection PRE-PROCEDURE & PRE-OPERATIVE COVID Microbiology Routine Hyperparathyroidism (HCC) Expected: 12/28/2022, Expires: 12/27/2023 [facility] Work Phone: Comment on above: Expected: 12/28/2022, Expires: 4 Start: 11-18-2022 ADVANCE DIRECTIVE DISCUSSION ADVANCE DIRECTIVE DISCUSSION [facility] Start: 11-18-2022 DEPRESSION ASSESSMENT DEPRESSION ASSESSMENT [facility] Start: 11-06-2022 ANNUAL PCP TEAM CHRONIC DISEASE VISIT ANNUAL PCP TEAM CHRONIC DISEASE VISIT [facility] Start: 11-06-2022 BP CONTROLLED (<130/80) BP CONTROLLED (<130/80) [facility] Start: 11-06-2022 Hemoglobin A1c/Hemoglobin.total in Blood HBA1C [facility] Start: 07-19-2022 Influenza vaccination INFLUENZA (#1) [facility] Start: 06-05-2022 End: 08-05-2022 25-hydroxyvitamin D3 [Mass/volume] in Serum or Plasma VITAMIN D 25 HYDROXY Lab Routine Hypercalcemia Hyperparathyroidism (HCC) Expected: 06/05/2022, Expires: 08/05/2022 [facility] Work Phone: Comment on above: Expected: 06/05/2022, Expires: 2 Start: 06-05-2022 End: 08-05-2022 CALCIUM 24 HR URINE CALCIUM 24 HR URINE Lab Routine Hypercalcemia Hyperparathyroidism (HCC) Expected: 06/05/2022, Expires: 08/05/2022 [facility] Work Phone: Comment on above: Expected: 06/05/2022, Expires: 2 Start: 06-05-2022 End: 08-05-2022 Calcium.ionized [Moles/volume] in Blood CALCIUM IONIZED BLOOD Lab Routine Hypercalcemia Hyperparathyroidism (HCC) Expected: 06/05/2022, Expires: 08/05/2022 [facility] Work Phone: Comment on above: Expected: 06/05/2022, Expires: 2 Start: 06-05-2022 End: 08-05-2022 Comprehensive metabolic 2000 panel - Serum or Plasma COMP METABOLIC PANEL Lab Routine Hypercalcemia Hyperparathyroidism (HCC) Expected: 06/05/2022, Expires: 08/05/2022 [facility] Work Phone: Comment on above: Expected: 06/05/2022, Expires: 2 Start: 06-05-2022 End: 08-05-2022 CREATININE 24 HR UR CREATININE 24 HR UR Lab Routine Hypercalcemia Hyperparathyroidism (HCC) Expected: 06/05/2022, Expires: 08/05/2022 [facility] Work Phone: Comment on above: Expected: 06/05/2022, Expires: 2 Start: 06-05-2022 End: 07-05-2023 Dxa bone density study 1/ sites axial skel DXA-AXIAL [facility]KELE[facility] Radiology Routine Hypercalcemia Hyperparathyroidism (HCC) Expected: 06/05/2022, Expires: 07/05/2023 [facility] Work Phone: Comment on above: Expected: 06/05/2022, Expires: 3 Start: 06-05-2022 End: 08-05-2022 Parathyrin.intact [Mass/volume] in Serum or Plasma PTH INTACT BLD Lab Routine Hypercalcemia Hyperparathyroidism (HCC) Expected: 06/05/2022, Expires: 08/05/2022 [facility] Work Phone: Comment on above: Expected: 06/05/2022, Expires: 2 Start: 06-05-2022 End: 08-05-2022 Phosphate [Mass/volume] in Serum or Plasma PHOSPHORUS INORGANIC Lab Routine Hypercalcemia Hyperparathyroidism (HCC) Expected: 06/05/2022, Expires: 08/05/2022 [facility] Work Phone: Comment on above: Expected: 06/05/2022, Expires: 2 Start: 05-07-2022 End: 05-07-2023 25-hydroxyvitamin D3 [Mass/volume] in Serum or Plasma [facility] Work Phone: Comment on above: Expected: 05/07/2022, Expires: 3 Start: 05-07-2022 End: 07-07-2022 ALBUMIN/CREAT RATIO RND UR [facility] Work Phone: Comment on above: Expected: 05/07/2022, Expires: 2 Start: 05-07-2022 End: 07-07-2022 Basic metabolic 2000 panel - Serum or Plasma [facility] Work Phone: Comment on above: Expected: 05/07/2022, Expires: 2 Start: 05-07-2022 End: 05-07-2023 Calcium.ionized [Moles/volume] in Blood [facility] Work Phone: Comment on above: Expected: 05/07/2022, Expires: 3 Start: 05-07-2022 End: 05-07-2023 CBC W Auto Differential panel - Blood [facility] Work Phone: Comment on above: Expected: 05/07/2022, Expires: 3 Start: 05-07-2022 End: 05-07-2023 Cobalamin (Vitamin B12) [Mass/volume] in Serum or Plasma [facility] Work Phone: Comment on above: Expected: 05/07/2022, Expires: 3 Start: 05-07-2022 End: 05-07-2023 Ferritin [Mass/volume] in Serum or Plasma [facility] Work Phone: Comment on above: Expected: 05/07/2022, Expires: 3 Start: 05-07-2022 End: 05-07-2023 Folate [Mass/volume] in Serum or Plasma [facility] Work Phone: Comment on above: Expected: 05/07/2022, Expires: 3 Start: 05-07-2022 End: 07-07-2022 Hemoglobin A1c in Blood [facility] Work Phone: Comment on above: Expected: 05/07/2022, Expires: 2 Start: 05-07-2022 Hemoglobin A1c/Hemoglobin.total in Blood HBA1C [facility] Start: 05-07-2022 End: 05-07-2023 Hemoglobin.gastrointestin al.lower [Presence] in Stool by Immunoassay FECAL OCCULT BLOOD TEST Lab Routine Anemia, unspecified type Expected: 05/07/2022, Expires: 05/07/2023 [facility] Work Phone: Comment on above: Expected: 05/07/2022, Expires: 3 Start: 05-07-2022 End: 05-07-2023 Iron and Iron binding capacity panel - Serum or Plasma [facility] Work Phone: Comment on above: Expected: 05/07/2022, Expires: 3 Start: 05-07-2022 End: 07-07-2022 Lipid 1996 panel - Serum or Plasma [facility] Work Phone: Comment on above: Expected: 05/07/2022, Expires: 2 Start: 05-07-2022 End: 05-07-2023 Parathyrin.intact [Mass/volume] in Serum or Plasma [facility] Work Phone: Comment on above: Expected: 05/07/2022, Expires: 3 Start: 01-15-2022 COVID-19 VACCINE (5 - Booster) COVID-19 VACCINE (5 - Booster) [facility] Start: 01-09-2022 3 comp foot exam completed DIABETIC FOOT EXAM [facility] Start: 01-09-2022 Adult depression screening assessment DEPRESSION SCREENING [facility] Start: 01-09-2022 Hepatitis B screening URINE ALBUMIN:CREATININE RATIO [facility] Start: 01-09-2022 Hepatitis B surface antibody level LDL CHOLESTEROL [facility] Start: 11-18-2021 ADVANCE DIRECTIVE DISCUSSION ADVANCE DIRECTIVE DISCUSSION [facility] Start: 11-18-2021 DEPRESSION ASSESSMENT DEPRESSION ASSESSMENT [facility] Start: 11-10-2021 COVID-19 VACCINE (5 - Booster) COVID-19 VACCINE (5 - Booster) [facility] Start: 03-10-2020 Hepatitis C antibody, confirmatory test DILATED RETINAL EXAM [facility] Start: 09-01-2019 BP CONTROLLED (<130/80) BP CONTROLLED (<130/80) [facility] Start: 2017 RSV Vaccine (1 - 1-dose 75+ series) RSV Vaccine (1 - 1-dose 75+ series) [facility] Start: 03-31-2012 SHINGRIX VACCINE (1 of 2) SHINGRIX VACCINE (1 of 2) [facility] Start: 03-31-2012 SHINGRIX VACCINE (2 of 3) SHINGRIX VACCINE (2 of 3) [facility] Start: 2002 RSV Vaccine (1 - 1-dose 60+ series) RSV Vaccine (1 - 1-dose 60+ series) [facility] Start: 1960 Depression Screening Depression Screening [facility] Bacteria identified in Urine by Culture URINE CULTURE Microbiology Routine Benign prostatic hyperplasia, unspecified whether lower urinary tract symptoms present 11/23/2022 9:35 AM EST [facility] Work Phone: Calcium.ionized [Mass/volume] in Serum or Plasma [facility] End: 03-22-2024 CATHETER INSERT-CRAIG CATHETER INSERT-CRAIG Procedures Routine Benign prostatic hyperplasia with urinary obstruction 99 Occurrences starting 03/22/2023 until 03/22/2024 [facility] Work Phone: Comment on above: 99 Occurrences starting 03/22/2023 until 03/22/2024 CATHETER INSERT-CRAIG CATHETER I NSERT-CRAIG Procedures Routine Benign prostatic hyperplasia with urinary obstruction Ordered: 03/29/2023 [facility] Work Phone: Comment on above: Ordered: 03/29/2023 Cystourethroscopy CYSTO.PANENDO Procedures Routine Benign prostatic hyperplasia with urinary obstruction Ordered: 2023 [facility] Work Phone: Comment on above: Ordered: 2023 End: 07-05-2023 Dxa bone density study 1/>sites appendiclr skel DXA-FOREARM [facility]KELE[facility] Radiology Routine Hypercalcemia Hyperparathyroidism (HCC) 1 Occurrences starting 06/05/2022 until 07/05/2023 [facility] Work Phone: Comment on above: 1 Occurrences starting 06/05/2022 until 07/05/2023 End: 12-27-2023 ECG COMPLETE ECG COMPLETE ECG Routine Hyperparathyroidism (HCC) 1 Occurrences starting 12/28/2022 until 12/27/2023 [facility] Work Phone: Comment on above: 1 Occurrences starting 12/28/2022 until 12/27/2023 CRAIG - DISCONTINUE CRAIG - DISC ONTINUE Procedures Routine Benign prostatic hyperplasia with urinary obstruction Ordered: 03/29/2023 [facility] Work Phone: Comment on above: Ordered: 03/29/2023 Insj non-ndwellg jeremi dder catheter INSERT,NON-INDW BLADDER CATH Procedures Routine Benign prostatic hyperplasia with urinary obstruction Ordered: 2023 [facility] Work Phone: Comment on above: Ordered: 2023 End: 01-12-2024 Parathyroid imaging w/tomographic spect & ct NM PARATHYROID W SPECT/CT Radiology Routine Hypercalcemia 1 Occurrences starting 12/13/2022 until 01/12/2024 [facility] Work Phone: Comment on above: 1 Occurrences starting 12/13/2022 until 01/12/2024 End: 12-27-2022 Parathyroid imaging w/tomographic spect & ct [facility] Work Phone: Comment on above: 1 Occurrences starting 12/27/2022 until 12/27/2022 Patient referral [facility] Work Phone: POST VOID RESIDUAL POST VOID RES IDUAL Procedures Routine Benign prostatic hyperplasia, unspecified whether lower urinary tract symptoms present Ordered: 11/23/2022 [facility] Work Phone: Comment on above: Ordered: 11/23/2022 REFER FOR ADMIT INTERVIEW REFER FOR ADMIT INTERVIEW Procedures Routine Hyperparathyroidism (HCC) Ordered: 12/28/2022 [facility] Work Phone: Comment on above: Ordered: 12/28/2022 SARS-CoV-2 (COVID-19 ) Ag [Presence] in Respiratory specimen by Rapid immunoassay [facility] TRUS ONLY TRUS ONLY Proced ures Routine Benign prostatic hyperplasia with urinary obstruction Ordered: 2023 [facility] Work Phone: Comment on above: Ordered: 2023 End: 05-07-2023 US CAROTID ARTERIES [facility] US CAROTID ARTERIES [facility] Vascular Lab Routine Arteriosclerosis of both carotid arteries 1 Occurrences starting 05/07/2022 until 05/07/2023 [facility] Work Phone: Comment on above: 1 Occurrences starting 05/07/2022 until 05/07/2023 US THYROID/PARATHYRO ID (POC) ENDO USE ONLY US THYROID/PARATHYROID (POC) ENDO USE ONLY Imaging Diagnostic Routine Hyperparathyroidism (HCC) Ordered: 02/26/2023 [facility] Work Phone: Comment on above: Ordered: 02/26/2023 VOIDING TRIAL PROTOCOL VOIDING T RIAL PROTOCOL Procedures Routine Benign prostatic hyperplasia with urinary obstruction Ordered: 03/22/2023 [facility] Work Phone: Comment on above: Ordered: 03/22/2023 VOIDING TRIAL PROTOCOL VOIDING T RIAL PROTOCOL Procedures Routine Benign prostatic hyperplasia with urinary obstruction Ordered: 03/29/2023 [facility] Work Phone: Comment on above: Ordered: 03/29/2023 [facility] Immunizations Immunization Date Immunization Notes Care Provider Fa [facility] 11-13-2024 influenza, high dose seasonal, preservative-free Antony Espinoza MD Work Phone: [facility] 11-15-2022 COVID-19 booster vaccine, age 12+ yr, bivalent (PFIZER-BIONTECH) Lorenzo Carballo PA-C Work Phone: [facility] 11-15-2022 influenza, high dose seasonal, preservative-free Dr. Antony Espinoza Work Phone: [facility] 11-15-2022 influenza, high-dose , quadrivalent vaccine (FLUZONE HIGH DOSE QUADRIVALENT) Lorenzo Carballo PA-C Work Phone: [facility] 11-15-2022 influenza virus vacc ine, unspecified formulation Antony Espinoza MD Work Phone: [facility] 09-15-2021 Covid (Pfizer) Dr. Antony littlejohn Work Phone: [facility] 08-30-2021 influenza, high dose seasonal, preservative-free Antony Espinoza MD Work Phone: [facility] 02-04-2021 Covid (Pfizer) [facility] 01-18-2021 Covid (Pfizer) Dr. Antony littlejohn Work Phone: [facility] 12-28-2020 Covid (Pfizer) Dr. Antony littlejohn Work Phone: [facility] 08-24-2020 influenza, high-dose , quadrivalent vaccine (FLUZONE HIGH DOSE QUADRIVALENT) Antony Espinoza MD Work Phone: [facility] 09-07-2019 influenza, high dose seasonal, preservative-free Antony Espinoza MD Work Phone: [facility] 08-26-2018 influenza, high dose seasonal, preservative-free Antony Espinoza MD Work Phone: [facility] 08-24-2018 influenza, seasonal, injectable [facility] 08-24-2018 influenza, seasonal, injectable, preservative free Antony Espinoza MD Work Phone: [facility] 11-28-2017 tetanus and diphther ia toxoids, adsorbed, preservative free, for adult use (2 Lf of tetanus toxoid and 2 Lf of diphtheria toxoid) Antony Espinoza MD Work Phone: [facility] 11-28-2017 tetanus toxoid, redu donato diphtheria toxoid, and acellular pertussis vaccine, adsorbed [facility] 08-30-2016 tetanus and diphther ia toxoids, adsorbed, preservative free, for adult use (2 Lf of tetanus toxoid and 2 Lf of diphtheria toxoid) Dr. Antony Espinoza Work Phone: [facility] 08-30-2016 tetanus and diphther ia toxoids, adsorbed, preservative free, for adult use (5 Lf of tetanus toxoid and 2 Lf of diphtheria toxoid) Antony Espinoza MD Work Phone: [facility] 11-29-2015 pneumococcal polysaccharide vaccine, 23 valent Antony Espinoza MD Work Phone: [facility] Work Phone: 11-29-2015 pneumococcal vaccine , unspecified formulation [facility] 09-13-2015 pneumococcal conjuga te vaccine, 13 valent Antony Espinoza MD Work Phone: [facility] 08-24-2015 Influenza virus vaccine [facility] 08-24-2015 influenza, seasonal, injectable, preservative free Antony Espinoza MD Work Phone: [facility] 02-04-2012 pneumococcal polysaccharide vaccine, 23 valent Antony Espinoza MD Work Phone: [facility] 02-04-2012 zoster vaccine, live Antony Espinoza MD Work Phone: [facility] 08-31-2010 influenza virus vacc ine, whole virus Antnoy Espinoza MD Work Phone: [facility] 09-13-2006 tetanus toxoid, redu donato diphtheria toxoid, and acellular pertussis vaccine, adsorbed Antony Espinoza MD Work Phone: [facility] Work Phone: Payers Date Payer Category Payer Self-pay [id number] 2021 Medicare MMO MEDICARE MMO [employer] O [id number] 2021-Present [phone] [address] [place] [address] [facility] [id number] 2021 Medicare (Managed Care) MMO [employer] HMO [id number] 2017 Unknown [id number] 2007 Medicare [id number] Private Health Insurance [employer] [id number] Unknown [id number] Unknown [id number] Unknown [id number] Social History Date Type Detail Facility Start: 06-03-2018 End: 10-02-2024 Tobacco smoking status NHIS Ex-smoker [facility] Work Phone: Start: 05-21-1979 End: 05-21-1999 History of tobacco use Current smoker [facility] Work Phone: Start: 05-21-1979 End: 05-21-1999 History of tobacco use Cigarette Smoker [facility] Work Phone: Start: 11-06-2021 End: 01-08-2025 Alcohol intake Current drinker of alcohol (finding) [facility] Start: 06-03-2018 History SDOH Alcohol Comment occasionally [facility] Start: 1940 Sex Assigned At Not on file [facility] Start: 08-27-2021 End: 07-27-2022 Exposure to SARS-CoV-2 (event) Not sure [facility] Start: 06-03-2018 End: 03-21-2023 Cigarettes smoked current (pack per day) - Reported 0.5 [facility] Work Phone: Start: 06-03-2018 End: 10-02-2024 Tobacco use and exposure Smokeless tobacco non-user [facility] Start: 03-06-2023 End: 03-06-2023 Tobacco smoking status NHIS Unknown if ever smoked [facility] Start: 08-22-2018 None [facility] Start: 08-22-2018 Spouse/ Signif icant Other [facility] Start: 08-28-2018 Non-smoker [facility] Start: 1940 Sex Assigned At Male [facility] Start: 03-12-2023 History SDOH Financial 4 [facility] Start: 03-12-2023 History SDOH Food Worry 1 [facility] Start: 03-12-2023 History SDOH Transpo rt Med 2 [facility] Start: 03-21-2023 End: 05-23-2023 Tobacco use panel [facility] Work Phone: How hard is it for y ou to pay for the very basics like food, housing, medical care, and heating Not very hard [facility] Work Phone: Adult Depression Screening Assessment 0 [facility] Work Phone: (I/We) worried whequin er (my/our) food would run out before (I/we) got money to buy more. Never true [facility] Work Phone: In the past 12 month s, was there a time when you were not able to pay the mortgage or rent on time? 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 Start: 08-20-2018 Primary uncemented hemiarthroplasty of hip ACCOLADE C DISTAL SPACER FDA Start: 08-20-2018 Primary uncemented hemiarthroplasty of hip DOUGH,CEMENT 6191-1-010 FDA Start: 08-20-2018 Primary uncemented hemiarthroplasty of hip DOUGH,CEMENT 6191-1-010 FDA Start: 08-20-2018 Primary uncemented hemiarthroplasty of hip UHR UNVI HEAD BIPOLAR COMP FDA Start: 08-20-2018 Primary uncemented hemiarthroplasty of hip V40 FEMORAL HEAD FDA Start: 08-20-2018 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 FDA Start: 08-20-2018 Primary uncemented hemiarthroplasty of hip ACCOLADE C DISTAL SPACER FDA Start: 08-20-2018 Primary uncemented hemiarthroplasty of hip DOUGH,CEMENT 6191-1-010 FDA Start: 08-20-2018 Primary uncemented hemiarthroplasty of hip DOUGH,CEMENT 6191-1-010 FDA Start: 08-20-2018 Primary uncemented hemiarthroplasty of hip UHR UNVI HEAD BIPOLAR COMP FDA Start: 08-20-2018 Primary uncemented hemiarthroplasty of hip V40 FEMORAL HEAD FDA Start: 08-20-2018 Mesh [employer] Polypropylene Surgical Nonabsorbable Plug Knitted - [id number] Start: 08-29-2020 Goals Date Patient Goal Desired Activity /State Functional Status Date Assessment Result Facility 05-25-2023 Are you deaf, or do you have serious difficulty hearing No 05/25/2023 6:03 PM Lillian Sanchez RN No [facility] 05-25-2023 Are you blind, or do you have serious difficulty seeing, even when wearing glasses No 05/25/2023 6:03 PM Lillian Sanchez RN No [facility] 05-25-2023 Do you have serious difficulty walking or climbing stairs No 05/25/2023 6:03 PM Lillian Sanchez, TRACY No [facility] 05-25-2023 Do you have difficul ty dressing or bathing No 05/25/2023 6:03 PM Lillian Sanchez, TRACY No [facility] 05-25-2023 Because of a physica l, mental, or emotional condition, do you have difficulty doing errands alone such as visiting a physician's office or shopping Yes 05/25/2023 6:03 PM Lillian Sanchez, TRACY Yes [facility] 03-08-2023 Functional status Ambulates;Bath room Privilege [facility] Work Phone: Mental Status Date Assessment Result Facility 05-25-2023 Because of a physica l, mental, or emotional condition, do you have serious difficulty concentrating, remembering, or making decisions Yes 05/25/2023 6:03 PM Lillian Sanchez RN Yes [facility] 03-08-2023 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;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;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 [facility] Work Phone: 03-07-2023 Cognitive function Voice/Name [facility] Work Phone: 03-06-2023 Cognitive function Level Of Cons ciousness Awake;Alert;Appropriate;Fol lows Commands [facility] Work Phone: Clinical Notes 07-28-2020 to 04-09-2025 Telephone Encounter - Shakila Quiroga APRN.[facility] - 03/08/2025 11:49 AM EDTTelephone Encounter - Shakila Quiroga APRN.CNP - 03/08/2025 11:49 AM EDTTLori davila - 01/08/2025 9:20 AM EST Note Date & Type Note Facility 04-09-2025 Note HNO ID: [id number] Author: LORI GOODMAN, ? Service: ? Author Type: Physician Type: Progress Notes Filed: 04/09/2025 09:23 Note Text: Last saw pcp: 11/13/24 Subjective: Patient presents to clinic c/o painful toenails. They state that the nails are especially painful with shoe gear and pressure. Patient states that nails 1-5 b/l are painful. Patient admits to being diabetic. No other pedal complaints at this time. Patient states no change in medications or medical history since last visit. Objective: Patient presents to clinic ambulating in [facility] Vasc: DP and PT pulses are palpable bilateral. CFT is less than 5 seconds bilateral. Skin temperature is warm to cool proximal to distal bilateral. There is mild edema or varicosities noted. Neuro: Protective sensation is intact to the foot and toes when tested with the 5.07 SWM bilateral. Vibratory sensation is decreased at the hallux IPJ bilateral. The hallux is downgoing bilateral. Derm: Nails 1-5 b/l are painful, discolored-yellow, thick, crumbly, dystrophic and with subungal debris. Skin is of normal turgor, texture and hair growth is decreased bilateral. There are callus to the tuft of right hallux and to left 5th metatarsal. no ulcerations, scars, verruca or other lesions noted. Ortho: Muscle strength is 5/5 for all pedal groups tested. Ankle joint DF is decreased with the knee extended with no pain or crepitus noted. 1st MPJ ROM is decreased bilateral. Hammertoes are present to lesser toes of b/l feet Assessment: (B35.1) Onychomycosis (primary encounter diagnosis) (M79.675) Pain in toe of left foot (M79.674) Pain in toe of right foot (E11.42) Diabetic polyneuropathy associated with type 2 diabetes mellitus (HCC) (M20.42) Hammer toe of left foot (L84) Callus of foot Plan: Patient was seen and evaluated. Nails 1-5 bilateral were debrided in length and thickness. Callus reduced to feet with dremmel Continue with wider sneakers for hammertoe Patient was instructed on the continued importance of diabetic foot care along with proper diet and keeping their blood sugar under control to prevent complications. I stressed the importance of avoiding barefoot walking, wearing good shoes and inspection of feet. Patient is to RTC in 3-4 months. Lori Goodman DPM [facility] 04-09-2025 Note HNO ID: [id number] Author: PENELOPE LOPEZ MA Service: ? Author Type: Front Office Secretary Type: Progress Notes Filed: 04/09/2025 09:23 Note Text: AMB ROOMING INTAKE FLOWSHEET DATA Risk Screening Do you have concerns about personal safety or safety in the home?: No [facility] 03-08-2025 Telephone encounter Note Chart reviewed. Doxazosin refilled. Shakila Quiroga APRN.CNP [facility] 03-08-2025 Miscellaneous Notes Chart reviewed. Doxazosin refilled. Shakila Quiroga APRN.CNP Pharmacy faxed requesting the following refill. Requested Prescriptions Pending Prescriptions Disp Refills doxazosin (CARDURA) 8 mg tablet 90 tablet 3 Sig: Take 1 tablet by mouth daily at bedtime. Dr. Gaona is not in the office. Please review medication request. Patient last appointment: 10/02/2024 Patient Phone numbers: [phone] (home) Request is for script(s) to be escript to pharmacy. Niya Doran MA documented in this encounter [facility] 03-08-2025 Telephone encounter Note Pharmacy faxed requesting the following refill. Requested Prescriptions Pending Prescriptions Disp Refills doxazosin (CARDURA) 8 mg tablet 90 tablet 3 Sig: Take 1 tablet by mouth daily at bedtime. Dr. Gaona is not in the office. Please review medication request. Patient last appointment: 10/02/2024 Patient Phone numbers: [phone] (home) Request is for script(s) to be escript to pharmacy. iNya Doran MA [facility] 01-29-2025 Telephone encounter Note Last appointment 11/13/2024 Next appointment 05/17/2025 Patient has been identified by name and date of : Yes Last office visit in this department: 11/13/2024 RX INSTRUCTIONS: Patient aware RX will be sent to pharmacy. No need to notify patient. Patient phones requesting refills as follows: Requested Prescriptions Pending Prescriptions Disp Refills atorvastatin (LIPITOR) 10 mg tablet 90 tablet 3 Sig: Take 1 tablet by mouth once daily. donepezil (ARICEPT) 10 mg tablet 90 tablet 0 Sig: Take 1 tablet by mouth daily at bedtime. memantine (NAMENDA) 10 mg tablet 180 tablet 2 Sig: Take 1 tablet by mouth two times a day. Please review and advise. Susannah Long [facility] 01-29-2025 Miscellaneous Notes Last appointment 11/13/2024 Next appointment 05/17/2025 Patient has been identified by name and date of : Yes Last office visit in this department: 11/13/2024 RX INSTRUCTIONS: Patient aware RX will be sent to pharmacy. No need to notify patient. Patient phones requesting refills as follows: Requested Prescriptions Pending Prescriptions Disp Refills atorvastatin (LIPITOR) 10 mg tablet 90 tablet 3 Sig: Take 1 tablet by mouth once daily. donepezil (ARICEPT) 10 mg tablet 90 tablet 0 Sig: Take 1 tablet by mouth daily at bedtime. memantine (NAMENDA) 10 mg tablet 180 tablet 2 Sig: Take 1 tablet by mouth two times a day. Please review and advise. Susannah Long documented in this encounter [facility] 01-22-2025 Telephone encounter Note Prescription Refill Information The patient has been identified by name and date of : Yes Caregiver verified no other encounters exist for this prescription request: Yes Caregiver confirmed with patient/requestor that no other refills are due, in the near future, with this provider at this time: Yes The last office visit in the department: 11/13/24 Does the patient have a future office visit with this provider/department: Yes Requested Prescriptions Pending Prescriptions Disp Refills losartan (COZAAR) 50 mg tablet 90 tablet 1 Sig: Take 1 tablet by mouth once daily. Angie Sepulveda January 22, 2025 1:59 PM [facility] 01-22-2025 Miscellaneous Notes Prescription Refill Information The patient has been identified by name and date of : Yes Caregiver verified no other encounters exist for this prescription request: Yes Caregiver confirmed with patient/requestor that no other refills are due, in the near future, with this provider at this time: Yes The last office visit in the department: 11/13/24 Does the patient have a future office visit with this provider/department: Yes Requested Prescriptions Pending Prescriptions Disp Refills losartan (COZAAR) 50 mg tablet 90 tablet 1 Sig: Take 1 tablet by mouth once daily. Angie Sepulveda January 22, 2025 1:59 PM documented in this encounter [facility] 01-08-2025 Note HNO ID: [id number] Author: LROI GOODMAN, ? Service: ? Author Type: Physician Type: Progress Notes Filed: 01/08/2025 09:32 Note Text: Last saw pcp: 11/13/24 Subjective: Patient presents to clinic c/o painful toenails. They state that the nails are especially painful with shoe gear and pressure. Patient states that nails 1-5 b/l are painful. Patient admits to being diabetic. No other pedal complaints at this time. Patient states no change in medications or medical history since last visit. Objective: Patient presents to clinic ambulating in [place] Vasc: DP and PT pulses are palpable bilateral. CFT is less than 5 seconds bilateral. Skin temperature is warm to cool proximal to distal bilateral. There is no edema or varicosities noted. Neuro: Protective sensation is intact to the foot and toes when tested with the 5.07 SWM bilateral. Vibratory sensation is absent at the hallux IPJ bilateral. The hallux is downgoing bilateral. Derm: Nails 1-5 b/l are painful, discolored-yellow, thick, crumbly, dystrophic and with subungal debris. Skin is of normal turgor, texture and hair growth is present bilateral. There are callus to b/l hallux and left 5th metatarsal. No ulcerations, scars, verruca or other lesions noted. Ortho: Muscle strength is 5/5 for all pedal groups tested. Ankle joint DF is decreased with the knee extended with no pain or crepitus noted. 1st MPJ ROM is decreased bilateral. Hammertoes 1-5 b/l Assessment: (B35.1) Onychomycosis (primary encounter diagnosis) (M79.675) Pain in toe of left foot (M79.674) Pain in toe of right foot (E11.42) Diabetic polyneuropathy associated with type 2 diabetes mellitus (HCC) (M20.42) Hammer toe of left foot (L84) Callus of foot Plan: Patient was seen and evaluated. Nails 1-5 bilateral were debrided in length and thickness. Callus to b/l hallux and left 5th metatarsal was reduced with dremmel. Continue with supportive tennis shoes and gel memory foam insert to help with callus Patient was instructed on the continued importance of diabetic foot care along with proper diet and keeping their blood sugar under control to prevent complications. Stressed the importance of avoiding barefoot walking, wearing extra depth shoes especially given hammertoes and inspecting feet daily. Patient is to RTC in 3-4 months. Lori Goodman DPM [facility] 01-08-2025 History of Presen t illness Narrative Last saw pcp: 11/13/24 Subjective: Patient presents to clinic c/o painful toenails. They state that the nails are especially painful with shoe gear and pressure. Patient states that nails 1-5 b/l are painful. Patient admits to being diabetic. No other pedal complaints at this time. Patient states no change in medications or medical history since last visit. Objective: Patient presents to clinic ambulating in [place] Vasc: DP and PT pulses are palpable bilateral. CFT is less than 5 seconds bilateral. Skin temperature is warm to cool proximal to distal bilateral. There is no edema or varicosities noted. Neuro: Protective sensation is intact to the foot and toes when tested with the 5.07 SWM bilateral. Vibratory sensation is absent at the hallux IPJ bilateral. The hallux is downgoing bilateral. Derm: Nails 1-5 b/l are painful, discolored-yellow, thick, crumbly, dystrophic and with subungal debris. Skin is of normal turgor, texture and hair growth is present bilateral. There are callus to b/l hallux and left 5th metatarsal. No ulcerations, scars, verruca or other lesions noted. Ortho: Muscle strength is 5/5 for all pedal groups tested. Ankle joint DF is decreased with the knee extended with no pain or crepitus noted. 1st MPJ ROM is decreased bilateral. Hammertoes 1-5 b/l Assessment: (B35.1) Onychomycosis (primary encounter diagnosis) (M79.675) Pain in toe of left foot (M79.674) Pain in toe of right foot (E11.42) Diabetic polyneuropathy associated with type 2 diabetes mellitus (HCC) (M20.42) Hammer toe of left foot (L84) Callus of foot Plan: Patient was seen and evaluated. Nails 1-5 bilateral were debrided in length and thickness. Callus to b/l hallux and left 5th metatarsal was reduced with dremmel. Continue with supportive tennis shoes and gel memory foam insert to help with callus Patient was instructed on the continued importance of diabetic foot care along with proper diet and keeping their blood sugar under control to prevent complications. Stressed the importance of avoiding barefoot walking, wearing extra depth shoes especially given hammertoes and inspecting feet daily. Patient is to RTC in 3-4 months. Lori Goodman DPM AMB ROOMING INTAKE FLOWSHEET DATA Pain Pain Level: 7 Pain Location: Foot-Right Duration Units: Months Frequency: Intermittent Intervention/Comfort measure: Medication, Reposition, Relaxation Patient presents with: Left Foot - Established Patient, Follow Up, Diabetic Foot Care Right Foot - Established Patient, Follow Up, Diabetic Foot Care Lashay Brooke LPN documented in this encounter [facility] 01-08-2025 Instructions Lori Goodman - 01/08/2025 9:20 AM EST Diabetes Foot Care Instructions When you have diabetes, proper foot care is very important. Poor foot care may lead to amputation of a foot or leg. As a person with diabetes, you are more vulnerable to foot problems, because diabetes can damage your nerves and reduce blood flow to your feet. Here are some diabetes foot care tips to follow: Wash and Dry Your Feet Daily Use mild soaps Use warm water Pat your skin dry; do not rub. Thoroughly dry your feet. After washing, use lotion on your feet to prevent cracking. Do not put lotion between your toes. Examine Your Feet Each Day Check the tops and bottoms of your feet. Have someone else look at your feet if you cannot see them. Check for dry, cracked skin. Look for blisters, cuts, scratches, or other sores. Check for redness, increased warmth, or tenderness when touching any area of your feet. Check for ingrown toenails, corns, and calluses. If you get a blister or sore from your shoes, do not pop it. Apply a bandage and wear a different pair of shoes. Take Care of Your Toenails Cut toenails after bathing, when they are soft. Cut toenails straight across and smooth with a nail file. Avoid cutting into the corners of toes. Do not cut cuticles. If you have neuropathy (or decreased sensation in your feet) a hair designer should always cut your toenails. Be Careful When Exercising Walk and exercise in comfortable shoes. Do not exercise when you have open sores on your feet. Protect Your Feet With Shoes and Socks Never go barefoot. Always protect your feet by wearing shoes or hard-soled slippers or footwear. Avoid shoes with high heels and pointed toes. Avoid shoes that expose your toes or heels (such as open-toed shoes or sandals). These types of shoes increase your risk for injury and potential infections. Try on new footwear with the type of socks you usually wear. Do not wear new shoes for more than an hour at a time. Change your socks daily. Look and feel inside your shoes before putting them on to make sure there are no foreign objects or rough areas. Avoid tight socks. Wear natural-fiber socks (cotton, wool, or a cotton-wool blend). Wear special shoes if your health care provider recommends them. Wear shoes/boots that will protect your feet from various weather conditions (cold, moisture, etc.). Make sure your shoes fit properly. If you have neuropathy (nerve damage), you may not notice that your shoes are too tight. Perform the footwear test described below. Footwear Test Use this simple test to see if your shoes fit correctly: Stand on a piece of paper. (Make sure you are standing and not sitting, because your foot changes shape when you stand.) Trace the outline of your foot. Trace the outline of your shoe. Compare the tracings: Is the shoe too narrow? Is your foot crammed into the shoe? The shoe should be at least 1/2 inch longer than your longest toe and as wide as your foot. Proper Shoe Choices The following types of shoes are best for people with diabetes Closed toes and heels Leather uppers without a seam inside At least 1/2 inch extra space at the end of your longest toe Inside of shoe should be soft with no rough areas Outer sole should be made of stiff material Shoes should be at least as wide as your feet Tips for Foot Care in Diabetes Don't wait to treat a minor foot problem if you have diabetes. Follow your health care provider's guidelines and first aid guidelines. Report foot injuries and infections to your health care provider immediately. Check water temperature with your elbow, not your foot. Do not use a heating pad on your feet. Do not cross your legs. Do not self-treat your corns, calluses, or other foot problems. Go to your health care provider or hair designer to treat these conditions. documented in this encounter [facility] 01-08-2025 Note HNO ID: [id number] Author: LASHAY BROOKE LPN Service: ? Author Type: LICENSED NURSE Type: Progress Notes Filed: 01/08/2025 09:32 Note Text: AMB ROOMING INTAKE FLOWSHEET DATA Pain Pain Level: 7 Pain Location: Foot-Right Duration Units: Months Frequency: Intermittent Intervention/Comfort measure: Medication, Reposition, Relaxation Patient presents with: Left Foot - Established Patient, Follow Up, Diabetic Foot Care Right Foot - Established Patient, Follow Up, Diabetic Foot Care Lashay Brooke LPN [facility] 11-17-2024 Telephone encounter Note Patient notified of results and provider's instructions. Patient verbalizes understanding. Mirlande Keyes RN [facility] 11-17-2024 Miscellaneous Notes Patient notified of results and provider's instructions. Patient verbalizes understanding. Mirlande Keyes RN Left message for to call and speak with nurse. His kidney function is better but still pretty low. Given his protein in his urine. Recommend he follow with nephrology documented in this encounter [facility] 11-16-2024 Telephone encounter Note Left message for to call and speak with nurse. [facility] 11-16-2024 Telephone encounter Note His kidney function is better but still pretty low. Given his protein in his urine. Recommend he follow with nephrology [facility] 11-13-2024 Instructions Antony Espinoza MD - 11/13/2024 10:39 AM EST No more driving-per Dr Espinoza documented in this encounter [facility] 11-13-2024 Note HNO ID: [id number] Author: ANTONY ESPINOZA MD Service: ? Author Type: Physician Type: Progress Notes Filed: 11/13/2024 11:01 Note Text: Patient presents with: Physical HPI: Patient presents today for office visit for follow up. Still seeing urology, podiatry, cardiology, heme onc.(Dr Andraed) Accompanied by his daughter. Mentally still stable. No wandering. Discussed that he should not be driving. No falls. Using cane for ambulation. No chest pain or shortness of breath. No gout issues. No new edema. No dizziness. Appetite is good. No urinary or gi issues. MEDICATIONS: Current Outpatient Medications Medication Sig donepezil (ARICEPT) 10 mg tablet Take 1 tablet by mouth daily at bedtime. losartan (COZAAR) 50 mg tablet Take 1 tablet by mouth once daily. allopurinol (ZYLOPRIM) 300 mg tablet TAKE 1 TABLET BY MOUTH ONCE DAILY. FOR GOUT. PARoxetine (PAXIL) 10 mg tablet Take 1 tablet by mouth once daily. doxazosin (CARDURA) 8 mg tablet take 1 tablet by mouth at bedtime atorvastatin (LIPITOR) 10 mg tablet Take 1 tablet by mouth once daily. memantine (NAMENDA) 10 mg tablet Take 1 tablet by mouth two times a day. Cholecalciferol, Vitamin D3, 25 mcg (1,000 unit) cap Take 1,000 Units by mouth once daily. IFEREX 150 150 mg iron capsule Take 150 mg by mouth once daily. acetaminophen (TYLENOL EXTRA STRENGTH) 500 mg tablet Take 1 tablet by mouth every 6 hours as needed for pain. No current facility-administered medications for this visit. 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 01/06/2013 Controlled type 2 diabetes mellitus without complication, without long-term current use of insulin (HCC) 07/24/2016 Degenerative disc disease, cervical 12/09/2015 Depression Diabetes mellitus (HCC) 07/14/2010 Elevated alkaline phosphatase level 01/10/2021 01/09/21 alk phos 142 Gout 08/25/2012 High cholesterol History of splenectomy 02/07/2015 Hypertension Inguinal hernia 04/08/2014 LBBB (left bundle branch block) Leukemia in remission (HCC) Lumbar disc disease with radiculopathy 04/06/2013 Mental disorder Mild cognitive impairment with memory loss 09/13/2015 Retention of urine Snoring spinal stenosis Vitreous hemorrhage (HCC) 2015 left eye PAST SURGICAL HISTORY Procedure Laterality Date COLONOSCOPY FLX DX W/COLLJ SPEC WHEN PFRMD 04/06/2003 Repeat in -2012 COLONOSCOPY FLX DX W/COLLJ SPEC WHEN PFRMD 02/17/2013 Colonoscopy COLONOSCOPY FLX DX W/COLLJ SPEC WHEN PFRMD 06/03/2018 Colonoscopy EGD 08/24/2003 + hpylori PAST SURGICAL HISTORY OF 2001 back surgery PAST SURGICAL HISTORY OF 2000 back surgery PAST SURGICAL HISTORY OF Right 2018 hemiarthroplasty of hip PAST SURGICAL HISTORY OF 02/2023 parathryroid removed REMV CATARACT EXTRACAP,INSERT LENS Bilateral 2012 RPR 1ST INGUN HRNA AGE 7 YRS/> REDUCIBLE 08/29/2020 Hernia repair, inguinal,left 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 TONSILLECTOMY PRIMARY/SECONDARY Tonsillectomy as a child FAMILY HISTORY Problem Relation Age of Onset Cancer Mother ovarian Heart Father COPD Sister Cancer Sister retroorbital Social History Tobacco Use Smoking status: Former Current packs/day: 0.00 Average packs/day: 0.5 packs/day for 20.0 years (10.0 ttl pk-yrs) Types: Cigarettes Start date: 05/21/1979 Quit date: 05/21/1999 Years since quittin.5 Smokeless tobacco: Never Vaping Use Vaping status: Never Used Substance Use Topics Alcohol use: Yes Comment: occasionally Drug use: Never Reviewed current medications, allergies, past medical history, surgical history, family history and social history today. REVIEW OF SYSTEMS All other reviewed and negative other than HPI. HEALTH MAINTENANCE: Reviewed health maintenance issues today and recommended the following in detail. Depression Screening Never done Shingrix Vaccine(1 of 2) due on 03/31/2012 RSV Vaccine(1 - 1-dose 75+ series) Never done Advance Directive Discussion -on file. HbA1C due on 11/20/2023 Influenza Vaccine(1) due on 07/19/2024 Diabetic Foot Exam- per podiatry VITALS: BP 134/82 Pulse 62 Resp 16 Wt 65.3 kg (144 lb) SpO2 97% BMI 24.72 kg/m? Last 4 Encounter Wt Readings: Date: Wt: 11/13/2024 65.3 kg (144 lb) 12/09/2023 59.9 kg (132 lb) 05/20/2023 60.3 kg (133 lb) 05/10/2023 61.2 kg (135 lb) PHYSICAL EXAMINATION: General appearance: Well appearing, alert, in no acute distress, well-hydrated, well nourished. Skin: Skin color, texture, turgor normal, no suspicious rashes or lesions Head: Normocephalic, no masses, lesions, tenderness or abnormalitie Lungs: Lungs cl (more content not included)... [facility] 11-13-2024 History of Presen t illness Narrative Patient presents with: Physical HPI: Patient presents today for office visit for follow up. Still seeing urology, podiatry, cardiology, heme onc.(Dr Andrade) Accompanied by his daughter. Mentally still stable. No wandering. Discussed that he should not be driving. No falls. Using cane for ambulation. No chest pain or shortness of breath. No gout issues. No new edema. No dizziness. Appetite is good. No urinary or gi issues. MEDICATIONS: Current Outpatient Medications Medication Sig donepezil (ARICEPT) 10 mg tablet Take 1 tablet by mouth daily at bedtime. losartan (COZAAR) 50 mg tablet Take 1 tablet by mouth once daily. allopurinol (ZYLOPRIM) 300 mg tablet TAKE 1 TABLET BY MOUTH ONCE DAILY. FOR GOUT. PARoxetine (PAXIL) 10 mg tablet Take 1 tablet by mouth once daily. doxazosin (CARDURA) 8 mg tablet take 1 tablet by mouth at bedtime atorvastatin (LIPITOR) 10 mg tablet Take 1 tablet by mouth once daily. memantine (NAMENDA) 10 mg tablet Take 1 tablet by mouth two times a day. Cholecalciferol, Vitamin D3, 25 mcg (1,000 unit) cap Take 1,000 Units by mouth once daily. IFEREX 150 150 mg iron capsule Take 150 mg by mouth once daily. acetaminophen (TYLENOL EXTRA STRENGTH) 500 mg tablet Take 1 tablet by mouth every 6 hours as needed for pain. No current facility-administered medications for this visit. 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 01/06/2013 Controlled type 2 diabetes mellitus without complication, without long-term current use of insulin ([facility]) 07/24/2016 Degenerative disc disease, cervical 12/09/2015 Depression Diabetes mellitus ([facility]) 07/14/2010 Elevated alkaline phosphatase level 01/10/2021 01/09/21 alk phos 142 Gout 08/25/2012 High cholesterol History of splenectomy 02/07/2015 Hypertension Inguinal hernia 04/08/2014 LBBB (left bundle branch block) Leukemia in remission ([facility]) Lumbar disc disease with radiculopathy 04/06/2013 Mental disorder Mild cognitive impairment with memory loss 09/13/2015 Retention of urine Snoring spinal stenosis Vitreous hemorrhage ([facility]) 2015 left eye PAST SURGICAL HISTORY Procedure Laterality Date COLONOSCOPY FLX DX W/COLLJ SPEC WHEN PFRMD 04/06/2003 Repeat in COLONOSCOPY FLX DX W/COLLJ SPEC WHEN PFRMD 02/17/2013 Colonoscopy COLONOSCOPY FLX DX W/COLLJ SPEC WHEN PFRMD 06/03/2018 Colonoscopy EGD 08/24/2003 + hpylori PAST SURGICAL HISTORY OF 2001 back surgery PAST SURGICAL HISTORY OF 2000 back surgery PAST SURGICAL HISTORY OF Right 2018 hemiarthroplasty of hip PAST SURGICAL HISTORY OF 02/2023 parathryroid removed REMV CATARACT EXTRACAP,INSERT LENS Bilateral 2012 RPR 1ST INGUN HRNA AGE 7 YRS/> REDUCIBLE 08/29/2020 Hernia repair, inguinal,left 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 TONSILLECTOMY PRIMARY/SECONDARY <AGE 14 Tonsillectomy as a child FAMILY HISTORY Problem Relation Age of Onset Cancer Mother ovarian Heart Father COPD Sister Cancer Sister retroorbital Social History Tobacco Use Smoking status: Former Current packs/day: 0.00 Average packs/day: 0.5 packs/day for 20.0 years (10.0 ttl pk-yrs) Types: Cigarettes Start date: 05/21/1979 Quit date: 05/21/1999 Years since quittin.5 Smokeless tobacco: Never Vaping Use Vaping status: Never Used Substance Use Topics Alcohol use: Yes Comment: occasionally Drug use: Never Reviewed current medications, allergies, past medical history, surgical history, family history and social history today. REVIEW OF SYSTEMS All other reviewed and negative other than HPI. HEALTH MAINTENANCE: Reviewed health maintenance issues today and recommended the following in detail. Depression Screening Never done Shingrix Vaccine(1 of 2) due on 03/31/2012 RSV Vaccine(1 - 1-dose 75+ series) Never done Advance Directive Discussion -on file. HbA1C due on 11/20/2023 Influenza Vaccine(1) due on 07/19/2024 Diabetic Foot Exam- per podiatry VITALS: BP 134/82 Pulse 62 Resp 16 Wt 65.3 kg (144 lb) SpO2 97% BMI 24.72 kg/m Last 4 Encounter Wt Readings: Date: Wt: 11/13/2024 65.3 kg (144 lb) 12/09/2023 59.9 kg (132 lb) 05/20/2023 60.3 kg (133 lb) 05/10/2023 61.2 kg (135 lb) PHYSICAL EXAMINATION: General appearance: Well appearing, alert, in no acute distress, well-hydrated, well nourished. Skin: Skin color, texture, turgor normal, no suspicious rashes or lesions Head: Normocephalic, no masses, lesions, tenderness or abnormalitie Lungs: Lungs clear to auscultation. No wheezing, rhonchi, rales Heart: RRR without murmur, gallop, or rubs. No ectopy Abdomen: Normal abdominal exam, Abdomen soft, non-tender. Bowel sounds normal. No masses, organomegaly Extremities: No deformities, edema, skin discoloration, clubbing or cyanosis. Good capillary refill. Musculoskeletal: No joint swelling, deformity, or tenderness Peripheral pulses: Normal Neuro: Negative. ASSESSMENT/PLAN: 1. Primary hypertension - ICD9: 401.9, ICD10: I10 (primary diagnosis) - Controlled - Continue current medications 2. Encounter for immunization - ICD9: V03.89, ICD10: Z23 - INFLUENZA VACCINE, PRSV FREE, AGE 65+ YR, HIGH DOSE, TRIVALENT (FLUZONE HIGH-DOSE) 3. Atherosclerosis of [place] coronary artery of [place] heart without angina pectoris - ICD9: 414.01, ICD10: I25.10 - stable. 4. Hyperlipidemia LDL goal <100 - ICD9: 272.4, ICD10: E78.5 - Controlled - Continue current medications 5. Cardiomyopathy, nonischemic (HCC) - ICD9: 425.4, ICD10: I42.8 - overudue for follow up - CONSULT TO CARDIOLOGY 6. Chronic systolic heart failure (HCC) - ICD9: 428.22, ICD10: I50.22 - weight is up but no signs of fluid overload - CONSULT TO CARDIOLOGY 7. Mild cognitive impairment with memory loss - ICD9: 331.83, ICD10: G31.84 - continue meds. 8. Lumbar disc disease with radiculopathy - ICD9: 722.10, 724.4, ICD10: M51.16 - stable. 9. Controlled type 2 diabetes mellitus with microalbuminuria, without long-term current use of insulin (HCC) (HCC) - ICD9: 250.40, 791.0, ICD10: E11.29, R80.9 - follow labs. - COMPLETE BLOOD COUNT AND DIFFERENTIAL - COMPREHENSIVE METABOLIC PANEL - HEMOGLOBIN A1C - ALBUMIN/CREATININE RATIO, URINE - LIPID PANEL, NONFASTING 10. BPH with urinary obstruction - ICD9: 600.01, 599.69, ICD10: N40.1, N13.8 - stable. 11. Type 2 diabetes mellitus with other specified complication, without long-term current use of insulin (HCC) - ICD9: 250.80, ICD10: E11.69 - stable. 12. Iron deficiency anemia, unspecified iron deficiency anemia type - ICD9: 280.9, ICD10: D50.9 - no change. 13. 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 History of splenectomy - ICD9: V45.79, ICD10: Z90.81 - stable. 15. Elevated alkaline phosphatase level - ICD9: 790.5, ICD10: R74.8 - stable. 16. Screening for depression - ICD9: V79.0, ICD10: Z13.31 - DEPRESSION SCREENING 17. Gout, unspecified cause, unspecified chronicity, unspecified site - ICD9: 274.9, ICD10: M10.9 - URIC ACID Antony Espinoza RTO in six months and prn. documented in this encounter [facility] 10-14-2024 Telephone encounter Note Pt scheduled for Physical 11-13-24. Christina Burgess LPN [facility] 10-14-2024 Miscellaneous Notes Pt scheduled for Physical 11-13-24. Christina Burgess LPN Needs follow up with one of us Prescription Refill Information The patient has been identified by name and date of : Yes Caregiver verified no other encounters exist for this prescription request: Yes Caregiver confirmed with patient/requestor that no other refills are due, in the near future, with this provider at this time: Yes The last office visit in the department: n/a Does the patient have a future office visit with this provider/department: Yes Requested Prescriptions Pending Prescriptions Disp Refills donepezil (ARICEPT) 10 mg tablet 90 tablet 0 Sig: Take 1 tablet by mouth daily at bedtime. Dorinda Long October 14, 2024 10:35 AM documented in this encounter [facility] 10-14-2024 Telephone encounter Note Needs follow up with one of us [facility] 10-14-2024 Telephone encounter Note Prescription Refill Information The patient has been identified by name and date of : Yes Caregiver verified no other encounters exist for this prescription request: Yes Caregiver confirmed with patient/requestor that no other refills are due, in the near future, with this provider at this time: Yes The last office visit in the department: n/a Does the patient have a future office visit with this provider/department: Yes Requested Prescriptions Pending Prescriptions Disp Refills donepezil (ARICEPT) 10 mg tablet 90 tablet 0 Sig: Take 1 tablet by mouth daily at bedtime. Dorinda Long October 14, 2024 10:35 AM [facility] Work Phone: 10-02-2024 Instructions Shaji Gaona MD - 10/02/2024 10:44 AM EST INSTRUCTIONS FROM DR. GAONA: make sure to hydrate well I will see you in 12 months documented in this encounter [facility] 10-02-2024 Nurse Note patient declined park naturalist [facility] 10-02-2024 Nurse Note patient declined park naturalist documented in this encounter [facility] 10-02-2024 Note HNO ID: [id number] Author: SHAJI GAONA MD Service: ? Author Type: Physician Type: Progress Notes Filed: 10/02/2024 10:46 Note Text: ESTABLISHED PATIENT OFFICE VISIT PATIENT INFO: Michael Mullins 84 year old HPI 10/02/2024 CC: bladder patient Lindsey presents with his today and remains on Cardura Nocturia 2-3 and daytime voiding every 2-3 hours and stream is good ever since his TURP in 2022 Dipstick urine without blood Low residual urine Is not interested in anything like Detrol etc. See me in 12 months for bladder scan Scores/PVR: Bladder scan/PVR: 5cc Past Urology Hx: 10/07/2023 CC: bph Presents with his and he feels still voiding very well and pleased Stop the Proscar but remains on Cardura and once again discussed option of stopping the Cardura and he sees his primary physician in a few weeks and they will see if that is okay Low residual urine and dipstick urine negative They want follow-up 12 months Bladder scan/PVR: 17cc ;; 06/07/2023 CC: bph Voiding on own and presents with his Very pleased with progress and remains on Cardura and Proscar He can stop the Proscar as has low residual urine Brady the Cardura and he can address with medical doctor to see if they still want him on it for medical reasons otherwise will eventually plan on stopping it from urology standpoint I will see him in 4 months to check residual urine Bladder scan/PVR: 48cc 05/03/2023 CC: cath He is doing self cath 3 times a day and not voiding in between Denies chest pain or shortness of breath Remains on Cardura and Proscar and ambulates with cane They want to move ahead with TURP and will schedule 2023 CC: cysto Patient presents with his for cystoscopy and ultrasound of prostate and he says a couple weeks ago he had an voiding trial but failed and no and offered or training with intermittent catheterization he says On med list-patient on Proscar and Cardura In November 2022-saw Lorenzo Carballo in residual urine was 0 cc Presents with his today Cystoscopy shows some BPH but not huge prostate He learn to do intermittent catheterization effectively and he wants to try that and see if starts voiding on own and see me back in 2 weeks for evaluation Gave UroLift information and also discussed TURP and both could be options but if he starts voiding on his own may be UroLift could be more of an option of TURP depending on their attitude Prostate used to be larger as noted below Patient ambulates with walker April 05, 2023-seen by Lorenzo Carballo- 82 year old male with a history of BPH for year and had been doing well on Proscar daily with no issues After his para-thyroid surgery in Nov 2022, has not been able to pass a TOV , he has had several attempted with voiding He would like to discuss possible TUR or Urolift if possible, so I ordered pre-tests and he will have them soon And then will be abl to discuss Uro-Lift vs TUR with surgeon Procedure: Performed a TOV. Bladder filled through craig with 200 ml of Sterile water/Saline, removing water from balloon the craig was removed and patient voided 0 ml. Assessment/Plan: > Craig catheter removal with failed TOV x 3 > on Cardura and Proscar , we discussed switching to Flomax , or CIC, but he is wanting to see if he can have Uro-Lift, so I will arrange the testing and consult Lorenzo Carballo, MPAS, [place], PA-C June 23, 2021-seen by Lorenzo Carballo- Patient here for 1 year follow-up. Feels fantastic. No voiding complaints. PSA - pending . Very stable. Patient prefers conservative management.has not take Proscar 5 mg for some time now Restart Proscar 5 mg June 29, 2015-seen by [facility] urology- 1 year follow-up previous prostate biopsy 1 year ago was negative. Feels fantastic. No nausea vomiting diarrhea fevers chills or weight loss. No blood pressures consistent with blood in urine. His P's XE Edita 4.2.8. Happy with his clinical status. I reviewed his previous negative biopsy. RADS: May 23, [id number] 2023-Cystoscopy/ultrasound prostate-volume 37.7 cc without enlarged middle lobe on sagittal view; no urethral stricture and mild trilobar BPH noted and there is a lot of white sediment in the bladder and hard to get complete visualization but there is trabeculation with some cellule formation and no obvious bladder mass but not Perfect visualization--Patient filled with 350 cc of fluid but unable to void and then able to learn intermittent catheterization May 10, 2014-ultrasound/biopsy of prostate-[facility] urology--- Volume 57 cc Creatinine Date Value Ref Range Status 12/26/2023 3.41 (H) 0.73 - 1.22 mg/dL Final PSA (ng/mL) Date Value 01/09/2021 4.43 01/12/2019 3.30 07/18/2017 3.05 08/21/2016 2.69 04/19/2016 2.80 06/13/2015 2.83 02/02/2015 2.72 04/08/2014 3.60 01/12/2013 3.00 12/14/2006 2.09 PSA Scree (more content not included)... [facility] 10-02-2024 History of Presen t illness Narrative ESTABLISHED PATIENT OFFICE VISIT PATIENT INFO: Michael Mullins 84 year old HPI 10/02/2024 CC: bladder patient Lindsey presents with his today and remains on Cardura Nocturia 2-3 and daytime voiding every 2-3 hours and stream is good ever since his TURP in 2022 Dipstick urine without blood Low residual urine Is not interested in anything like Detrol etc. See me in 12 months for bladder scan Scores/PVR: Bladder scan/PVR: 5cc Past Urology Hx: 10/07/2023 CC: bph Presents with his and he feels still voiding very well and pleased Stop the Proscar but remains on Cardura and once again discussed option of stopping the Cardura and he sees his primary physician in a few weeks and they will see if that is okay Low residual urine and dipstick urine negative They want follow-up 12 months Bladder scan/PVR: 17cc ;; 06/07/2023 CC: bph Voiding on own and presents with his Very pleased with progress and remains on Cardura and Proscar He can stop the Proscar as has low residual urine Brady the Cardura and he can address with medical doctor to see if they still want him on it for medical reasons otherwise will eventually plan on stopping it from urology standpoint I will see him in 4 months to check residual urine Bladder scan/PVR: 48cc 05/03/2023 CC: cath He is doing self cath 3 times a day and not voiding in between Denies chest pain or shortness of breath Remains on Cardura and Proscar and ambulates with cane They want to move ahead with TURP and will schedule 2023 CC: cysto Patient presents with his for cystoscopy and ultrasound of prostate and he says a couple weeks ago he had an voiding trial but failed and no and offered or training with intermittent catheterization he says On med list-patient on Proscar and Cardura In November 2022-saw Lorenzo Carballo in residual urine was 0 cc Presents with his today Cystoscopy shows some BPH but not huge prostate He learn to do intermittent catheterization effectively and he wants to try that and see if starts voiding on own and see me back in 2 weeks for evaluation Gave UroLift information and also discussed TURP and both could be options but if he starts voiding on his own may be UroLift could be more of an option of TURP depending on their attitude Prostate used to be larger as noted below Patient ambulates with walker April 05, 2023-seen by Lorenzo Carballo- 82 year old male with a history of BPH for year and had been doing well on Proscar daily with no issues After his para-thyroid surgery in Nov 2022, has not been able to pass a TOV , he has had several attempted with voiding He would like to discuss possible TUR or Urolift if possible, so I ordered pre-tests and he will have them soon And then will be abl to discuss Uro-Lift vs TUR with surgeon Procedure: Performed a TOV. Bladder filled through craig with 200 ml of Sterile water/Saline, removing water from balloon the craig was removed and patient voided 0 ml. Assessment/Plan: > Craig catheter removal with failed TOV x 3 > on Cardura and Proscar , we discussed switching to Flomax , or CIC, but he is wanting to see if he can have Uro-Lift, so I will arrange the testing and consult Lorenzo Carballo, MPAS, [place], PA-C June 23, 2021-seen by Lorenzo Carballo- Patient here for 1 year follow-up. Feels fantastic. No voiding complaints. PSA - pending . Very stable. Patient prefers conservative management.has not take Proscar 5 mg for some time now Restart Proscar 5 mg June 29, 2015-seen by [facility] urology- 1 year follow-up previous prostate biopsy 1 year ago was negative. Feels fantastic. No nausea vomiting diarrhea fevers chills or weight loss. No blood pressures consistent with blood in urine. His P's XE Edita 4.2.8. Happy with his clinical status. I reviewed his previous negative biopsy. RADS: May 23, [id number] 2023-Cystoscopy/ultrasound prostate-volume 37.7 cc without enlarged middle lobe on sagittal view; no urethral stricture and mild trilobar BPH noted and there is a lot of white sediment in the bladder and hard to get complete visualization but there is trabeculation with some cellule formation and no obvious bladder mass but not Perfect visualization--Patient filled with 350 cc of fluid but unable to void and then able to learn intermittent catheterization May 10, 2014-ultrasound/biopsy of prostate-[facility] urology--- Volume 57 cc Creatinine Date Value Ref Range Status 12/26/2023 3.41 (H) 0.73 - 1.22 mg/dL Final PSA (ng/mL) Date Value 01/09/2021 4.43 01/12/2019 3.30 07/18/2017 3.05 08/21/2016 2.69 04/19/2016 2.80 06/13/2015 2.83 02/02/2015 2.72 04/08/2014 3.60 01/12/2013 3.00 12/14/2006 2.09 PSA Screening (ng/mL) Date Value 11/15/2022 1.78 11/06/2021 2.51 Color (no units) Date Value 03/10/2023 Yellow Clarity (no units) Date Value 03/10/2023 Clear Glucose, Urine Date Value 03/10/2023 Negative 01/06/2010 neg mg/dL Bilirubin, Urine (no units) Date Value 03/10/2023 Negative 01/06/2010 neg Ketones, Urine (no units) Date Value 03/10/2023 Negative 01/06/2010 neg Specific [place], Ur (no units) Date Value 03/10/2023 1.010 01/06/2010 1.010 Hemoglobin/Blood,Ur (no units) Date Value 03/10/2023 2+ 01/06/2010 moderate pH, Urine (no units) Date Value 03/10/2023 5.5 01/06/2010 7.0 Protein, Urine Date Value 03/10/2023 1+ 01/06/2010 30 mg/dL Urobilinogen (no units) Date Value 03/10/2023 0.2 EU/dL Nitrites (no units) Date Value 03/10/2023 Negative 01/06/2010 neg Leuk Esterase (no units) Date Value 03/10/2023 1+ Review of Systems Constitutional: Negative. HENT: Negative. Eyes: Negative. Respiratory: Negative. Cardiovascular: Negative. Gastrointestinal: Negative. Endocrine: Negative. Genitourinary: See HPI Musculoskeletal: Negative. Skin: Negative. Allergic/Immunologic: Negative. Neurological: Negative. Hematological: Negative. Psychiatric/Behavioral: Negative. 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 01/06/2013 Controlled type 2 diabetes mellitus without complication, without long-term current use of insulin ([facility]) 07/24/2016 Degenerative disc disease, cervical 12/09/2015 Depression Diabetes mellitus ([facility]) 07/14/2010 Elevated alkaline phosphatase level 01/10/2021 01/09/21 alk phos 142 Gout 08/25/2012 High cholesterol History of splenectomy 02/07/2015 Hypertension Inguinal hernia 04/08/2014 LBBB (left bundle branch block) Leukemia in remission ([facility]) Lumbar disc disease with radiculopathy 04/06/2013 Mental disorder Mild cognitive impairment with memory loss 09/13/2015 Retention of urine Snoring spinal stenosis Vitreous hemorrhage ([facility]) 2015 left eye FAMILY HISTORY Problem Relation Age of Onset Cancer Mother ovarian Heart Father COPD Sister Cancer Sister retroorbital SOCIAL HISTORY Social History Tobacco Use Smoking status: Former Current packs/day: 0.00 Average packs/day: 0.5 packs/day for 20.0 years (10.0 ttl pk-yrs) Types: Cigarettes Start date: 05/21/1979 Quit date: 05/21/1999 Years since quittin.3 Smokeless tobacco: Never Vaping Use Vaping status: Never Used Substance Use Topics Alcohol use: Yes Comment: occasionally Drug use: Never MEDICATIONS: donepezil (ARICEPT) 10 mg tablet Take 1 tablet by mouth daily at bedtime. allopurinol (ZYLOPRIM) 300 mg tablet TAKE 1 TABLET BY MOUTH ONCE DAILY. FOR GOUT. PARoxetine (PAXIL) 10 mg tablet Take 1 tablet by mouth once daily. doxazosin (CARDURA) 8 mg tablet take 1 tablet by mouth at bedtime memantine (NAMENDA) 10 mg tablet Take 1 tablet by mouth two times a day. Cholecalciferol, Vitamin D3, 25 mcg (1,000 unit) cap Take 1,000 Units by mouth once daily. acetaminophen (TYLENOL EXTRA STRENGTH) 500 mg tablet Take 1 tablet by mouth every 6 hours as needed for pain. IFEREX 150 150 mg iron capsule Take 150 mg by mouth once daily. losartan (COZAAR) 50 mg tablet Take 1 tablet by mouth once daily. atorvastatin (LIPITOR) 10 mg tablet Take 1 tablet by mouth once daily. (Patient not taking: Reported on 01/01/2024) sulfamethoxazole-trimethoprim (BACTRIM DS) 800-160 mg per tablet Take 1 tablet by mouth twice daily. (Patient not taking: Reported on 01/01/2024) calcium carbonate (TUMS) 500 mg chew Take 1 tablet by mouth every hour as needed. (Patient not taking: Reported on 12/09/2023) cmgaztq-yndxbrorm-jcvpuif D3 (CALCIUM 500+D) 500 mg-5 mcg (200 unit) per tablet Take 1 tablet by mouth three times daily with meals. (Patient not taking: Reported on 12/09/2023) Physical Exam HENT: Head: Normocephalic and atraumatic. Nose: Nose normal. Neck: Trachea: No tracheal deviation. Pulmonary: Effort: Pulmonary effort is normal. No respiratory distress. Musculoskeletal: General: No deformity. Skin: General: Skin is warm. Neurological: Mental Status: He is alert and oriented to person, place, and time. Gait: Gait is intact. Psychiatric: Mood and Affect: Mood and affect normal. Cognition and Memory: Memory normal. Risk/Benefit Discussion: FOLLOW UP (1s&1w; 3s): Return in about 1 year (around 10/02/2025). ASSESSMENT/PLAN: 1. Benign prostatic hyperplasia with urinary obstruction - ICD9: 600.01, 599.69, ICD10: N40.1, N13.8 (primary diagnosis) - US MSR POST-VOID RESID URINE 2. Nocturia - ICD9: 788.43, ICD10: R35.1 3. Incomplete bladder emptying - ICD9: 788.21, ICD10: R33.9 Shaji Gaona The sensitive exam: The sensitive examination was discussed with the Patient or Patient's Authorized Soldering Machine Operator Automatic. As applicable, any other physician, advance practice provider, medical student, or other health professional student that will be observing or involved in the sensitive examination for educational or training purposes was discussed with the Patient or Authorized Soldering Machine Operator Automatic. The Patient or Authorized Soldering Machine Operator Automatic has agreed to proceed with the sensitive examination. (Sensitive examination includes inspection and/or palpation of the breasts, pelvis, prostate and anorectal regions) Please note: This note has been produced using speech recognition software and may contain errors related to that system including grammar, punctuation, spelling, gender and words and phrases that may be inappropriate. documented in this encounter [facility] 09-28-2024 Note HNO ID: [id number] Author: LORI GOODMAN, ? Service: ? Author Type: Physician Type: Progress Notes Filed: 09/28/2024 22:22 Note Text: Last saw pcp: 11/06/23 Subjective: Patient presents to clinic c/o painful toenails. They state that the nails are especially painful with shoe gear and pressure. Patient states that nails 1-5 b/l are painful. Patient admits to being diabetic. . No other pedal complaints at this time. Patient states no change in medications or medical history since last visit. Objective: Patient presents to clinic ambulating in sneakers Vasc: DP and PT pulses are palpable bilateral. CFT is less than 5 seconds bilateral. Skin temperature is warm to cool proximal to distal bilateral. There is mild edema or varicosities noted. Neuro: Protective sensation is decreased to the foot and toes when tested with the 5.07 SWM bilateral. Vibratory sensation is absent at the hallux IPJ bilateral. The hallux is downgoing bilateral. Derm: Nails 1-5 b/l are painful, discolored-yellow, thick, crumbly, dystrophic and with subungal debris. Skin is of normal turgor, texture and hair growth is decreased bilateral. There are no hyperkeratosis, ulcerations, scars, verruca or other lesions noted. Ortho: Muscle strength is 5/5 for all pedal groups tested. Ankle joint DF is decresaed with the knee extended with no pain or crepitus noted. 1st MPJ ROM is decreased bilateral. Hammertoes are present to lesser toes of b/l feet Assessment: (B35.1) Onychomycosis (primary encounter diagnosis) (M79.675) Pain in toe of left foot (M79.674) Pain in toe of right foot (E11.42) Diabetic polyneuropathy associated with type 2 diabetes mellitus (HCC) (M20.42) Hammer toe of left foot Plan: Patient was seen and evaluated. Nails 1-5 bilateral were debrided in length and thickness. Patient was instructed on the continued importance of diabetic foot care along with proper diet and keeping their blood sugar under control to prevent complications. Stressed the importance of avoiding barefoot walking, wearing good shoes and inspection of feet daily. Recommend wider shoes for hammertoe. Patient is to RTC in 3-4 months. Lori Goodman DPM [facility] 09-28-2024 History of Presen t illness Narrative Last saw pcp: 11/06/23 Subjective: Patient presents to clinic c/o painful toenails. They state that the nails are especially painful with shoe gear and pressure. Patient states that nails 1-5 b/l are painful. Patient admits to being diabetic. . No other pedal complaints at this time. Patient states no change in medications or medical history since last visit. Objective: Patient presents to clinic ambulating in [facility] Vasc: DP and PT pulses are palpable bilateral. CFT is less than 5 seconds bilateral. Skin temperature is warm to cool proximal to distal bilateral. There is mild edema or varicosities noted. Neuro: Protective sensation is decreased to the foot and toes when tested with the 5.07 SWM bilateral. Vibratory sensation is absent at the hallux IPJ bilateral. The hallux is downgoing bilateral. Derm: Nails 1-5 b/l are painful, discolored-yellow, thick, crumbly, dystrophic and with subungal debris. Skin is of normal turgor, texture and hair growth is decreased bilateral. There are no hyperkeratosis, ulcerations, scars, verruca or other lesions noted. Ortho: Muscle strength is 5/5 for all pedal groups tested. Ankle joint DF is decresaed with the knee extended with no pain or crepitus noted. 1st MPJ ROM is decreased bilateral. Hammertoes are present to lesser toes of b/l feet Assessment: (B35.1) Onychomycosis (primary encounter diagnosis) (M79.675) Pain in toe of left foot (M79.674) Pain in toe of right foot (E11.42) Diabetic polyneuropathy associated with type 2 diabetes mellitus (HCC) (M20.42) Hammer toe of left foot Plan: Patient was seen and evaluated. Nails 1-5 bilateral were debrided in length and thickness. Patient was instructed on the continued importance of diabetic foot care along with proper diet and keeping their blood sugar under control to prevent complications. Stressed the importance of avoiding barefoot walking, wearing good shoes and inspection of feet daily. Recommend wider shoes for hammertoe. Patient is to RTC in 3-4 months. Lori Goodman DPM AMB ROOMING INTAKE FLOWSHEET DATA Patient presents with: Left Foot - Established Patient, Follow Up, Diabetic Foot Care Right Foot - Established Patient, Follow Up, Diabetic Foot Care Lashay Brooke LPN documented in this encounter [facility] 09-28-2024 Note HNO ID: [id number] Author: LASHAY BROOKE LPN Service: ? Author Type: LICENSED NURSE Type: Progress Notes Filed: 09/28/2024 22:22 Note Text: AMB ROOMING INTAKE FLOWSHEET DATA Patient presents with: Left Foot - Established Patient, Follow Up, Diabetic Foot Care Right Foot - Established Patient, Follow Up, Diabetic Foot Care Lashay Brooke LPN [facility] 06-30-2024 Telephone encounter Note Left detailed message on voicemail to return call and schedule. [facility] 06-30-2024 Miscellaneous Notes Left detailed message on voicemail to return call and schedule. Due for check up with myself, Bisi or Felisa Prescription Refill Information The patient has been identified by name and date of : Yes Caregiver verified no other encounters exist for this prescription request: Yes Caregiver confirmed with patient/requestor that no other refills are due, in the near future, with this provider at this time: Yes The last office visit in the department: 05-20-24 Does the patient have a future office visit with this provider/department: No Requested Prescriptions Pending Prescriptions Disp Refills donepezil (ARICEPT) 10 mg tablet 90 tablet 3 Sig: Take 1 tablet by mouth daily at bedtime. Skye Arnold June 30, 2024 2:15 PM documented in this encounter [facility] 06-30-2024 Telephone encounter Note Due for check up with myself, Bisi or Felisa [facility] 06-30-2024 Telephone encounter Note Patient requesting medication that is : losartan (COZAAR) 50 mg tablet ( Last office visit: 05-20-24 Future appt scheduled: No PHARMACY: [facility] 06-30-2024 Miscellaneous Notes Patient requesting medication that is : losartan (COZAAR) 50 mg tablet ( Last office visit: 05-20-24 Future appt scheduled: No PHARMACY: [facility] documented in this encounter [facility] 06-30-2024 Telephone encounter Note Prescription Refill Information The patient has been identified by name and date of : Yes Caregiver verified no other encounters exist for this prescription request: Yes Caregiver confirmed with patient/requestor that no other refills are due, in the near future, with this provider at this time: Yes The last office visit in the department: 05-20-24 Does the patient have a future office visit with this provider/department: No Requested Prescriptions Pending Prescriptions Disp Refills donepezil (ARICEPT) 10 mg tablet 90 tablet 3 Sig: Take 1 tablet by mouth daily at bedtime. Skye Arnold June 30, 2024 2:15 PM [facility] 05-26-2024 Note HNO ID: [id number] Author: LORI GOODMAN, ? Service: ? Author Type: Physician Type: Progress Notes Filed: 05/26/2024 08:25 Note Text: Last saw pcp: 05/20/23 Subjective: Patient presents to clinic c/o painful toenails. They state that the nails are especially painful with shoe gear and pressure. Patient states that nails 1-5 b/l are painful. Patient admits to being diabetic. No other pedal complaints at this time. Patient states no change in medications or medical history since last visit. Objective: Patient presents to clinic ambulating in nike tennis shoes Vasc: DP and PT pulses are palpable bilateral. CFT is less than 5 seconds bilateral. Skin temperature is warm to cool proximal to distal bilateral. There is no edema or varicosities noted. Neuro: Protective sensation is intact to the foot and toes when tested with the 5.07 SWM bilateral. Vibratory sensation is decreased at the hallux IPJ bilateral. The hallux is downgoing bilateral. Derm: Nails 1-5 b/l are painful, discolored-yellow, thick, crumbly, dystrophic and with subungal debris. Skin is of normal turgor, texture and hair growth is present bilateral. There are callus to b/l hallux. no ulcerations, scars, verruca or other lesions noted. Ortho: Muscle strength is 5/5 for all pedal groups tested. Ankle joint DF is decreased with the knee extended with no pain or crepitus noted. 1st MPJ ROM is decreased bilateral. Hammertoes are present to lesser toes of b/l feet Assessment: (B35.1) Onychomycosis (primary encounter diagnosis) (M79.675) Pain in toe of left foot (M79.674) Pain in toe of right foot (L84) Callus of foot (E11.42) Diabetic polyneuropathy associated with type 2 diabetes mellitus (HCC) (M20.42) Hammer toe of left foot Plan: Patient was seen and evaluated. Nails 1-5 bilateral were debrided in length and thickness. Callus reduced to b/l hallux with dremmel Patient was instructed on the continued importance of diabetic foot care along with proper diet and keeping their blood sugar under control to prevent complications. Stressed the importance of avoiding barefoot walking, wearing good shoes and inspection of feet. Patient is to RTC in 3-4 months. Lori Goodman DPM [facility] 05-26-2024 History of Presen t illness Narrative Last saw pcp: 05/20/23 Subjective: Patient presents to clinic c/o painful toenails. They state that the nails are especially painful with shoe gear and pressure. Patient states that nails 1-5 b/l are painful. Patient admits to being diabetic. No other pedal complaints at this time. Patient states no change in medications or medical history since last visit. Objective: Patient presents to clinic ambulating in nike tennis shoes Vasc: DP and PT pulses are palpable bilateral. CFT is less than 5 seconds bilateral. Skin temperature is warm to cool proximal to distal bilateral. There is no edema or varicosities noted. Neuro: Protective sensation is intact to the foot and toes when tested with the 5.07 SWM bilateral. Vibratory sensation is decreased at the hallux IPJ bilateral. The hallux is downgoing bilateral. Derm: Nails 1-5 b/l are painful, discolored-yellow, thick, crumbly, dystrophic and with subungal debris. Skin is of normal turgor, texture and hair growth is present bilateral. There are callus to b/l hallux. no ulcerations, scars, verruca or other lesions noted. Ortho: Muscle strength is 5/5 for all pedal groups tested. Ankle joint DF is decreased with the knee extended with no pain or crepitus noted. 1st MPJ ROM is decreased bilateral. Hammertoes are present to lesser toes of b/l feet Assessment: (B35.1) Onychomycosis (primary encounter diagnosis) (M79.675) Pain in toe of left foot (M79.674) Pain in toe of right foot (L84) Callus of foot (E11.42) Diabetic polyneuropathy associated with type 2 diabetes mellitus (HCC) (M20.42) Hammer toe of left foot Plan: Patient was seen and evaluated. Nails 1-5 bilateral were debrided in length and thickness. Callus reduced to b/l hallux with dremmel Patient was instructed on the continued importance of diabetic foot care along with proper diet and keeping their blood sugar under control to prevent complications. Stressed the importance of avoiding barefoot walking, wearing good shoes and inspection of feet. Patient is to RTC in 3-4 months. Lori Goodman DPM Patient presents with: Left Foot - Established Patient, Follow Up, Diabetic Foot Care Right Foot - Established Patient, Follow Up, Diabetic Foot Care Patient presents for follow up diabetic foot/nail care. [facility] 02/20/24 documented in this encounter [facility] 05-26-2024 Note HNO ID: [id number] Author: PRABHA MAYO RN Service: ? Author Type: Registered Nurse Type: Progress Notes Filed: 05/26/2024 08:25 Note Text: Patient presents with: Left Foot - Established Patient, Follow Up, Diabetic Foot Care Right Foot - Established Patient, Follow Up, Diabetic Foot Care Patient presents for follow up diabetic foot/nail care. [facility] 02/20/24 [facility] 03-24-2024 Telephone encounter Note Left message for patient spouse to call back and speak to NURSE on TRIAGE. Please verify what med needs refilled? Patient has never been on metformin or ever had diabetic dx. Spouse (leander) is on metfromin, is she looking at her own rx and needing refill for herself? Luzmaria Jaime MA [facility] 03-24-2024 Miscellaneous Notes Left message for patient spouse to call back and speak to NURSE on TRIAGE. Please verify what med needs refilled? Patient has never been on metformin or ever had diabetic dx. Spouse (leander) is on metfromin, is she looking at her own rx and needing refill for herself? Luzmaria Jaime MA Patient's spouse requesting metFORMIN (GLUCOPHAGE) 500 mg tablet which is no longer on patient list. [facility] documented in this encounter [facility] 03-24-2024 Telephone encounter Note Patient has been identified by name and date of : Patient phones for refill(s): Requested Prescriptions Pending Prescriptions Disp Refills allopurinol (ZYLOPRIM) 300 mg tablet 90 tablet 3 Sig: TAKE 1 TABLET BY MOUTH ONCE DAILY. FOR GOUT. PARoxetine (PAXIL) 10 mg tablet 90 tablet 3 Sig: Take 1 tablet by mouth once daily. Date of last office visit in primary care: 05/20/2023 Date of next office visit in primary care: Visit date not found Please advise. Thank you. Skye Arnold. [facility] 03-24-2024 Miscellaneous Notes Patient has been identified by name and date of : Patient phones for refill(s): Requested Prescriptions Pending Prescriptions Disp Refills allopurinol (ZYLOPRIM) 300 mg tablet 90 tablet 3 Sig: TAKE 1 TABLET BY MOUTH ONCE DAILY. FOR GOUT. PARoxetine (PAXIL) 10 mg tablet 90 tablet 3 Sig: Take 1 tablet by mouth once daily. Date of last office visit in primary care: 05/20/2023 Date of next office visit in primary care: Visit date not found Please advise. Thank you. Skye Arnold. documented in this encounter [facility] 03-24-2024 Telephone encounter Note Patient's spouse requesting metFORMIN (GLUCOPHAGE) 500 mg tablet which is no longer on patient list. [facility] 03-10-2024 Telephone encounter Note SAMANTHA: 10/07/2023 NOV: 10/06/2024 Patient phones requesting refills as follows: Requested Prescriptions Pending Prescriptions Disp Refills doxazosin (CARDURA) 8 mg tablet [Pharmacy Med Name: DOXAZOSIN MESYLATE 8 MG TAB] 90 tablet 3 Sig: take 1 tablet by mouth at bedtime Please review and advise. Dayron Torres LPN [facility] 03-10-2024 Miscellaneous Notes SAMANTHA: 10/07/2023 NOV: 10/06/2024 Patient phones requesting refills as follows: Requested Prescriptions Pending Prescriptions Disp Refills doxazosin (CARDURA) 8 mg tablet [Pharmacy Med Name: DOXAZOSIN MESYLATE 8 MG TAB] 90 tablet 3 Sig: take 1 tablet by mouth at bedtime Please review and advise. Dayron Torres LPN documented in this encounter [facility] 02-20-2024 History of Presen t illness Narrative Last saw pcp: 05/20/23 Subjective: Patient presents to clinic c/o painful toenails. They state that the nails are especially painful with shoe gear and pressure. Patient states that nails 1-5 b/l are painful. Patient admits to being diabetic . Patient does report itching in his feet. No other pedal complaints at this time. Patient states no change in medications or medical history since last visit. Objective: Patient presents to clinic ambulating in nike Vasc: DP and PT pulses are palpable bilateral. CFT is less than 5 seconds bilateral. Skin temperature is warm to cool proximal to distal bilateral. There is no edema or varicosities noted. Neuro: Protective sensation is intact to the foot and toes when tested with the 5.07 SWM bilateral. Vibratory sensation is decreased at the hallux IPJ bilateral. The hallux is downgoing bilateral. Derm: Nails 1-5 b/l are painful, discolored-yellow, thick, crumbly, dystrophic and with subungal debris. Skin is of normal turgor, texture and hair growth is present bilateral. There are callus to left 5th metatarsal and right hallux. no ulcerations, scars, verruca or other lesions noted. Ortho: Muscle strength is 5/5 for all pedal groups tested. Ankle joint DF is decreased with the knee extended with no pain or crepitus noted. 1st MPJ ROM is decreased bilateral. Hammertoes are present to lesser toes of b/l feet. Assessment: (B35.1) Onychomycosis (primary encounter diagnosis) (M79.675) Pain in toe of left foot (M79.674) Pain in toe of right foot (L85.3) Xerosis cutis (L84) Callus of foot (M20.42) Hammer toe of left foot (E11.42) Diabetic polyneuropathy associated with type 2 diabetes mellitus (HCC) Plan: Patient was seen and evaluated. Nails 1-5 bilateral were debrided in length and thickness. Callus reduced with dremmel. Patient was instructed on the continued importance of diabetic foot care along with proper diet and keeping their blood sugar under control to prevent complications. Informed patient that he does suffer from some neuropathy and it is important that he continue with wider shoes, monitoring his feet and using lotion to feet. Will try lotrisone for itching of feet. Patient is to RTC in 3-4 months. Lori Goodman DPM AMB ROOMING INTAKE FLOWSHEET DATA Risk Screening Do you have concerns about personal safety or safety in the home?: No Pain Pain Level: 5 Pain Location: Foot-Right Description: Sore Duration Units: Weeks Frequency: Intermittent Intervention/Comfort measure: Reposition, Relaxation, Medication Patient presents with: Right Foot - nail care , Established Patient, Follow Up, Pain Left Foot - Established Patient, Follow Up, nail care Lashay Brooke LPN documented in this encounter [facility] 02-20-2024 Instructions [place]anc[place]ette Lori - 02/20/2024 8:09 AM EDT Diabetes Foot Care Instructions When you have diabetes, proper foot care is very important. Poor foot care may lead to amputation of a foot or leg. As a person with diabetes, you are more vulnerable to foot problems, because diabetes can damage your nerves and reduce blood flow to your feet. Here are some diabetes foot care tips to follow: Wash and Dry Your Feet Daily Use mild soaps Use warm water Pat your skin dry; do not rub. Thoroughly dry your feet. After washing, use lotion on your feet to prevent cracking. Do not put lotion between your toes. Examine Your Feet Each Day Check the tops and bottoms of your feet. Have someone else look at your feet if you cannot see them. Check for dry, cracked skin. Look for blisters, cuts, scratches, or other sores. Check for redness, increased warmth, or tenderness when touching any area of your feet. Check for ingrown toenails, corns, and calluses. If you get a blister or sore from your shoes, do not pop it. Apply a bandage and wear a different pair of shoes. Take Care of Your Toenails Cut toenails after bathing, when they are soft. Cut toenails straight across and smooth with a nail file. Avoid cutting into the corners of toes. Do not cut cuticles. If you have neuropathy (or decreased sensation in your feet) a hair designer should always cut your toenails. Be Careful When Exercising Walk and exercise in comfortable shoes. Do not exercise when you have open sores on your feet. Protect Your Feet With Shoes and Socks Never go barefoot. Always protect your feet by wearing shoes or hard-soled slippers or footwear. Avoid shoes with high heels and pointed toes. Avoid shoes that expose your toes or heels (such as open-toed shoes or sandals). These types of shoes increase your risk for injury and potential infections. Try on new footwear with the type of socks you usually wear. Do not wear new shoes for more than an hour at a time. Change your socks daily. Look and feel inside your shoes before putting them on to make sure there are no foreign objects or rough areas. Avoid tight socks. Wear natural-fiber socks (cotton, wool, or a cotton-wool blend). Wear special shoes if your health care provider recommends them. Wear shoes/boots that will protect your feet from various weather conditions (cold, moisture, etc.). Make sure your shoes fit properly. If you have neuropathy (nerve damage), you may not notice that your shoes are too tight. Perform the footwear test described below. Footwear Test Use this simple test to see if your shoes fit correctly: Stand on a piece of paper. (Make sure you are standing and not sitting, because your foot changes shape when you stand.) Trace the outline of your foot. Trace the outline of your shoe. Compare the tracings: Is the shoe too narrow? Is your foot crammed into the shoe? The shoe should be at least 1/2 inch longer than your longest toe and as wide as your foot. Proper Shoe Choices The following types of shoes are best for people with diabetes Closed toes and heels Leather uppers without a seam inside At least 1/2 inch extra space at the end of your longest toe Inside of shoe should be soft with no rough areas Outer sole should be made of stiff material Shoes should be at least as wide as your feet Tips for Foot Care in Diabetes Don't wait to treat a minor foot problem if you have diabetes. Follow your health care provider's guidelines and first aid guidelines. Report foot injuries and infections to your health care provider immediately. Check water temperature with your elbow, not your foot. Do not use a heating pad on your feet. Do not cross your legs. Do not self-treat your corns, calluses, or other foot problems. Go to your health care provider or hair designer to treat these conditions. documented in this encounter [facility] 01-20-2024 Miscellaneous Notes Left message for patient to return call. Marisol Birmingham Ma Please let patient know that kidney function has worsened significantly. 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 Please stop naproxen immediately, metformin immediately. Drink 64 ounces of water daily to flush his kidneys Repeat renal panel on Saturday. Please let patient know that kidney function has worsened significantly. 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 Please stop naproxen immediately, metformin immediately. Drink 64 ounces of water daily to flush his kidneys Repeat renal panel on Saturday. Per Dr. Holly, could Dr. Espinoza please review pt's CMP done on 12-26-23? His BUN was elevated (49). Thank you. Perlita Maurice, RN documented in this encounter [facility] 01-01-2024 History of Presen t illness Narrative Assessment and Plan 1. Left posterior capsular opacification 2. Pseudophakia Michael Mullins has confirmed that he is no longer able to function adequately on a daily basis with his current visual condition. Further, it is my medical opinion that the posterior capsule opacity is the primary cause, or a significantly contributory cause, of his visual dysfunction. With uncomplicated YAG laser posterior capsulotomy, it is my expectation that his visual function and quality of life will improve, significantly. The risks, benefits, alternatives, personnel and complications of YAG laser posterior capsulotomy were discussed with Michael Mullins in detail. he appeared to understand and asked that I proceed with plans for surgery. 3. Amblyopia, right eye -long-standing limited vision right eye 4. Hypertensive retinopathy, bilateral -stable Plan: -asking for YAG capsulotomy left eye -risk, benefis, and alternatives reviewed and consent obtained -performed with no complications. Turbid fluid between intraocular lens and posterior capsule will release over time. Follow-up Dr. Boothe next week. If not completely clear, to consider YAG touch-up I have confirmed and edited as necessary the relevant ophthalmic history, ROS, and the neuro exam findings as obtained by others. I have seen and examined Michael Mullins. I have discussed the case and the management of this patient's care with the Resident/Fellow, if applicable. I also have reviewed and agree with the assessment and plan as stated above and agree with all of its relevant components. Dmitry Painting MD January 01, 2024 8:49 AM documented in this encounter [facility] 01-01-2024 Instructions Dmitry Painting MD - 01/01/2024 8:49 AM EST Images from the original note were not included. documented in this encounter [facility] 10-07-2023 Note HNO ID: [id number] Author: Shaji Gaona MD Service: ? Author Type: Physician Type: Progress Notes Filed: 10/07/2023 6:25 PM Note Text: ESTABLISHED PATIENT OFFICE VISIT PATIENT INFO: Michael Mullins 83 year old HPI 10/07/2023 CC: bph Presents with his and he feels still voiding very well and pleased Stop the Proscar but remains on Cardura and once again discussed option of stopping the Cardura and he sees his primary physician in a few weeks and they will see if that is okay Low residual urine and dipstick urine negative They want follow-up 12 months Scores/PVR: Bladder scan/PVR: 17cc Past Urology Hx: 06/07/2023 CC: bph Voiding on own and presents with his Very pleased with progress and remains on Cardura and Proscar He can stop the Proscar as has low residual urine Brady the Cardura and he can address with medical doctor to see if they still want him on it for medical reasons otherwise will eventually plan on stopping it from urology standpoint I will see him in 4 months to check residual urine Bladder scan/PVR: 48cc 05/03/2023 CC: cath He is doing self cath 3 times a day and not voiding in between Denies chest pain or shortness of breath Remains on Cardura and Proscar and ambulates with cane They want to move ahead with TURP and will schedule 2023 CC: cysto Patient presents with his for cystoscopy and ultrasound of prostate and he says a couple weeks ago he had an voiding trial but failed and no and offered or training with intermittent catheterization he says On med list-patient on Proscar and Cardura In November 2022-saw Lorenzo Carballo in residual urine was 0 cc Presents with his today Cystoscopy shows some BPH but not huge prostate He learn to do intermittent catheterization effectively and he wants to try that and see if starts voiding on own and see me back in 2 weeks for evaluation Gave UroLift information and also discussed TURP and both could be options but if he starts voiding on his own may be UroLift could be more of an option of TURP depending on their attitude Prostate used to be larger as noted below Patient ambulates with walker April 05, 2023-seen by Lorenzo Carballo- 82 year old male with a history of BPH for year and had been doing well on Proscar daily with no issues After his para-thyroid surgery in Nov 2022, has not been able to pass a TOV , he has had several attempted with voiding He would like to discuss possible TUR or Urolift if possible, so I ordered pre-tests and he will have them soon And then will be abl to discuss Uro-Lift vs TUR with surgeon Procedure: Performed a TOV. Bladder filled through craig with 200 ml of Sterile water/Saline, removing water from balloon the craig was removed and patient voided 0 ml. Assessment/Plan: > Craig catheter removal with failed TOV x 3 > on Cardura and Proscar , we discussed switching to Flomax , or CIC, but he is wanting to see if he can have Uro-Lift, so I will arrange the testing and consult Lorenzo Carballo, DAISY, [place], PA-C June 23, 2021-seen by Lorenzo Carballo- Patient here for 1 year follow-up. Feels fantastic. No voiding complaints. PSA - pending . Very stable. Patient prefers conservative management.has not take Proscar 5 mg for some time now Restart Proscar 5 mg June 29, 2015-seen by [facility] urology- 1 year follow-up previous prostate biopsy 1 year ago was negative. Feels fantastic. No nausea vomiting diarrhea fevers chills or weight loss. No blood pressures consistent with blood in urine. His P's XE Edita 4.2.8. Happy with his clinical status. I reviewed his previous negative biopsy. RADS: May 23, [id number]-benign 2023-Cystoscopy/ultrasound prostate-volume 37.7 cc without enlarged middle lobe on sagittal view; no urethral stricture and mild trilobar BPH noted and there is a lot of white sediment in the bladder and hard to get complete visualization but there is trabeculation with some cellule formation and no obvious bladder mass but not Perfect visualization--Patient filled with 350 cc of fluid but unable to void and then able to learn intermittent catheterization May 10, 2014-ultrasound/biopsy of prostate-[facility] urology--- Volume 57 cc Creatinine Date Value Ref Range Status 05/10/2023 1.36 (H) 0.73 - 1.22 mg/dL Final PSA (ng/mL) Date Value 01/09/2021 4.43 01/12/2019 3.30 07/18/2017 3.05 08/21/2016 2.69 04/19/2016 2.80 06/13/2015 2.83 02/02/2015 2.72 04/08/2014 3.60 01/12/2013 3.00 12/14/2006 2.09 PSA Screening (ng/mL) Date Value 11/15/2022 1.78 11/06/2021 2.51 Color (no units) Date Value 03/10/2023 Yellow Clarity (no units) Date Value 03/10/2023 Clear Glucose, Urine Date Value 03/10/2023 Negative 01/06/2010 neg mg/dL Bilirubin, Urine (no units) Date Value 03/10/2023 Negative 01/06/2010 neg Ketones, Urine (no units (more content not included)... [facility] 08-01-2023 Miscellaneous Notes Patient has been identified by name and date of : Yes Requested Prescriptions Pending Prescriptions Disp Refills memantine (NAMENDA) 10 mg tablet 90 tablet 3 Sig: Take 1 tablet by mouth twice daily. SAMANTHA:05-20-23 No appt scheduled. RX INSTRUCTIONS: Patient aware RX will be sent to pharmacy. No need to notify patient. Andie Gonzalez documented in this encounter [facility] 05-30-2023 Nurse Note Patient is back in for a PVR after having his catheter removed this AM for a voiding trial. Patient stated that he was able to urinate multiple times without difficulty. PVR result was - 98 ml Patient instructed that if he has any sudden pain or inability to urinate he is to contact this office ([phone]) during the hours of 08:00 to 16:00. If after those hours, to go to the emergency room. Patient voiced understanding of all instructions. Prahba Orellana RN documented in this encounter [facility] 05-30-2023 Nurse Note Patient presents for trial of voiding. Bladder filled with 250 cc of sterile water (as much as pt could tolerate), balloon deflated, craig catheter removed without difficulty, balloon intact. Patient voided 25 cc's of pink-tinged urine. Pt had to have a BM and states more urine was passed but unable to measure. Pt is to return to office this afternoon for a PVR check. Prabha Orellana RN documented in this encounter [facility] 05-27-2023 Nurse Note Pt in office today c/o catheter not draining since 10 pm last night. No urine noted in tubing or drainage bag. Craig catheter irrigated with sterile water. Immediate return of dark brown urine with clots noted. Craig drained of 1000 ml. Catheter irrigated with sterile water until clear/yellow. Pt scheduled for voiding trial this . Discussed with and will monitor urine and okay to do VT on . Prabha Orellana RN documented in this encounter [facility] 05-20-2023 Miscellaneous Notes Clearance form scanned into pt's chart. Bianka Gan Dr. Paige signed form and it was faxed back. Christina Jain Bianka, forestry fire aid from Dr. Gaona's urology called stating pt's PCP would like cardiac clearance, if possible, before pt has TURP on . Bianka has already faxed form to [place] office and was told additionally to send to [place] office. RN informed Bianka that Dr. Holly is not in the office today. Bianka can be reached at [phone] for further discussion. Thank you. Janna Philippe RN Form received. Holding for appointment. Bianak from Dr. Gaona's office in Urology calling and states she will be faxing over a medical clearance form to PCP office for review and completion at pt's 05/[address] Espinoza, if able. Pt is scheduled to have TURP completed 05/23/23. Please contact Bianka or patient if any questions or for information. Milagro Sheriff RN documented in this encounter [facility] 05-20-2023 History of Presen t illness Narrative Patient presents with: Medical Clearance HPI: Patient presents today for office visit for pre-op clearance. He is scheduled for a Cystoscopy, TURP at [facility] on 05/23/[address] Gaona. Seeing Hem/Onc on 05/14/23 Labs done. Iron was low. Had infusion on 05/16/23. He'll have another infusion after TURP surgery. Sees Dr Holly, cardiology for his CAD and cardiomyopathy. Has a chronic LBBB No current chest pain or shortness of breath. No edema. No bleeding or bruising issues. His naproxen is on hold. No hx of bela. No personal or family hx of anesthetic problems. No hx of dvt. No signs of symptoms of infection. No issues with sugars. MEDICATIONS: Current Outpatient Medications Medication Sig sulfamethoxazole-trimethoprim (BACTRIM DS) 800-160 mg per tablet Take 1 tablet by mouth twice daily. PARoxetine (PAXIL) 10 mg tablet Take 1 tablet by mouth once daily. doxazosin (CARDURA) 8 mg tablet Take 1 tablet by mouth daily at bedtime. Cholecalciferol, Vitamin D3, 25 mcg (1,000 unit) cap Take 1,000 Units by mouth once daily. naproxen sodium (ANAPROX) 220 mg tablet Take 220 mg by mouth twice daily with meals. as needed for pain calcium carbonate (TUMS) 500 mg chew Take 1 tablet by mouth every hour as needed. zokwuuh-ljvxfqpmt-lvurydr D3 (CALCIUM 500+D) 500 mg-5 mcg (200 unit) per tablet Take 1 tablet by mouth three times daily with meals. acetaminophen (TYLENOL EXTRA STRENGTH) 500 mg tablet Take 1 tablet by mouth every 6 hours as needed for pain. memantine (NAMENDA) 10 mg tablet Take 1 tablet by mouth twice daily. allopurinol (ZYLOPRIM) 300 mg tablet TAKE 1 TABLET BY MOUTH ONCE DAILY. FOR GOUT. metFORMIN (GLUCOPHAGE) 500 mg tablet Take 1 tablet by mouth twice daily with meals. IFEREX 150 150 mg iron capsule Take 150 mg by mouth once daily. finasteride (PROSCAR) 5 mg tablet Take 1 tablet by mouth once daily. atorvastatin (LIPITOR) 10 mg tablet Take 1 tablet by mouth once daily. donepezil (ARICEPT) 10 mg tablet Take 1 tablet by mouth daily at bedtime. losartan (COZAAR) 50 mg tablet Take 1 tablet by mouth once daily. No current facility-administered medications for this visit. ALLERGIES: ALLERGIES Allergen Reactions Altace [Ramipril] Gabapentin Other: See Comments tremors Toprol Xl [Metoprol* PAST MEDICAL HISTORY Diagnosis Date Acute leukemia of unspecified cell type in remission Ambulates with cane Benign neoplasm of colon BPH (benign prostatic hypertrophy) with urinary obstruction 01/06/2013 Controlled type 2 diabetes mellitus without complication, without long-term current use of insulin ([facility]) 07/24/2016 Degenerative disc disease, cervical 12/09/2015 Depression Diabetes mellitus ([facility]) 07/14/2010 Elevated alkaline phosphatase level 01/10/2021 01/09/21 alk phos 142 Gout 08/25/2012 High cholesterol History of splenectomy 02/07/2015 Hypertension Inguinal hernia 04/08/2014 LBBB (left bundle branch block) Leukemia in remission ([facility]) Lumbar disc disease with radiculopathy 04/06/2013 Mental disorder Mild cognitive impairment with memory loss 09/13/2015 Retention of urine Snoring spinal stenosis PAST SURGICAL HISTORY Procedure Laterality Date COLONOSCOPY FLX DX W/COLLJ SPEC WHEN PFRMD 04/06/2003 Repeat in COLONOSCOPY FLX DX W/COLLJ SPEC WHEN PFRMD 02/17/2013 Colonoscopy COLONOSCOPY FLX DX W/COLLJ SPEC WHEN PFRMD 06/03/2018 Colonoscopy EGD 08/24/2003 + hpylori PAST SURGICAL HISTORY OF 2001 back surgery PAST SURGICAL HISTORY OF 2000 back surgery PAST SURGICAL HISTORY OF Right 2018 hemiarthroplasty of hip PAST SURGICAL HISTORY OF 02/2023 parathryroid removed REMV CATARACT EXTRACAP,INSERT LENS Bilateral 2012 RPR 1ST INGUN HRNA AGE 7 YRS/> REDUCIBLE 08/29/2020 Hernia repair, inguinal,left SPLENECTOMY TOTAL SEPARATE PROCEDURE 1984 Splenectomy TONSILLECTOMY PRIMARY/SECONDARY <AGE 14 Tonsillectomy as a child FAMILY HISTORY Problem Relation Age of Onset Cancer Mother ovarian Heart Father COPD Sister Cancer Sister retroorbital Social History Tobacco Use Smoking status: Former Packs/day: 0.50 Years: 20.00 Pack years: 10.00 Types: Cigarettes Quit date: 05/21/1999 Years since quittin.0 Smokeless tobacco: Never Vaping Use Vaping Use: Never used Substance Use Topics Alcohol use: Yes Comment: occasionally Drug use: Never Reviewed current medications, allergies, past medical history, surgical history, family history and social history today. REVIEW OF SYSTEMS All other reviewed and negative other than HPI. VITALS: BP (!) 110/48 Pulse 60 Ht 162.6 cm (5' 4) Wt 60.3 kg (133 lb) SpO2 96% BMI 22.83 kg/m Last 4 Encounter Wt Readings: Date: Wt: 05/10/2023 61.2 kg (135 lb) 04/09/2023 59 kg (130 lb) 04/09/2023 59.1 kg (130 lb 3.2 oz) 04/09/2023 59 kg (130 lb) PHYSICAL EXAMINATION: General appearance: Well appearing, alert, in no acute distress, well-hydrated, well nourished. Skin: Skin color, texture, turgor normal, no suspicious rashes or lesions Head: Normocephalic, no masses, lesions, tenderness or abnormalities Lungs: Lungs clear to auscultation. No wheezing, rhonchi, rales Heart: RRR without murmur, gallop, or rubs. No ectopy Abdomen: Normal abdominal exam, Abdomen soft, non-tender. Bowel sounds normal. No masses, organomegaly Extremities: No deformities, edema, skin discoloration, clubbing or cyanosis. Good capillary refill. Musculoskeletal: No joint swelling, deformity, or tenderness ASSESSMENT/PLAN: 1. Urinary retention - ICD9: 788.20, ICD10: R33.9 (primary diagnosis) - is moderate surgical risk. Should be medically maximized for surgery as long as it is ok with cardiology. 2. Anemia, unspecified type - ICD9: 285.9, ICD10: D64.9 - per Dr Andrade 3. Mild cognitive impairment with memory loss - ICD9: 331.83, ICD10: G31.84 - stable. 4. Atherosclerosis of [place] coronary artery of [place] heart without angina pectoris - ICD9: 414.01, ICD10: I25.10 - asymptomatic. 5. Cardiomyopathy, nonischemic (HCC) - ICD9: 425.4, ICD10: I42.8 - will need cardiology to clear. 6. Type 2 diabetes mellitus with other specified complication, without long-term current use of insulin (HCC) - ICD9: 250.80, ICD10: E11.69 - follow labs. - HGB A1C 7. 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 Per oncology 8. Benign prostatic hyperplasia, unspecified whether lower urinary tract symptoms present - ICD9: 600.00, ICD10: N40.0 Antony Espinoza MD documented in this encounter [facility] 05-15-2023 Miscellaneous Notes Pt's Kyleigh notified. Bianka Gan It is safe He will be fine Patient called stating patients sees hematology oncology for history of leukemia. ([phone])has order an iron infusion for next week due to iron deficiency. Patients is concerned because he is scheduled for surgery with you next week and was told he had to stop iron tablets for surgery. Is it safe for iron infusion in the same week of surgery? documented in this encounter [facility] 05-15-2023 Miscellaneous Notes Pt's Kyleigh notified. Bianka Gan Inform that + Sent bactrim to pharm for him to start at least by fri documented in this encounter [facility] 05-10-2023 History and physical note Images from the original note were not included. HISTORY AND PHYSICAL EXAMINATION SERVICE DATE: 05/10/2023 SERVICE TIME: 8:00 AM PRIMARY CARE PHYSICIAN: Antony Espinoza MD REASON FOR VISIT: Michael Mullins is a 83 year old male who is scheduled for Procedure(s): TURP COMPLETE (N/A) CYSTOSCOPY (N/A) at the request of Dr. Shaji Gaona for routine H&P. My final recommendation will be communicated back to the requesting physician by way of shared medical record or letter. 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) Primary Hypertension Anxiety State Lumbar Spinal Stenosis Coronary Atherosclerosis Arteriosclerosis of Both Carotid Arteries Hammer Toe Gout Benign Prostatic Hyperplasia With Urinary Retention Lumbar Disc Disease With Radiculopathy Inguinal Hernia Bph (Benign Prostatic Hyperplasia) History of Splenectomy Hyperlipidemia Ldl Goal <100 Retinal Hemorrhage Mild Cognitive Impairment With Memory Loss Degenerative Disc Disease, Cervical Elevated Prostate Specific Antigen (Psa) Controlled Type 2 Diabetes Mellitus With Microalbuminuria, Without Long-Term Current Use of Insulin (Hcc) Cardiomyopathy, Nonischemic (Hcc) Elevated Alkaline Phosphatase Level Type 2 Diabetes Mellitus, Without Long-Term Current Use of Insulin (Hcc) Joelle (Iron Deficiency Anemia) After Care Nocturia Poor Urinary Stream Pre-Op Examination Retention of Urine, Unspecified COVID-19 Immunization Status COVID-19 VACCINE (Series Information) Completed 11/15/2022 Imm Admin: COVID-19 vaccine, age 12+ yr, bivalent (PFIZER-BIONTECH) 09/15/2021 Imm Admin: COVID-19 original vaccine, age 12+ yr, monovalent (PFIZER-BIONTECH - PURPLE TOP) 02/04/2021 Outside Immunization: Covid (Pfizer) Only the first 3 history entries have been loaded, but more history exists. CHIEF COMPLAINT: The reason for this visit is to perform a comprehensive review of the patients past medical history, assess their current health status and obtain any additional testing required based on anesthesia guidelines. To assess and identify potential anesthesia problems, particularly those that may suggest potential complications or contraindications to the planned procedure. HPI: Patient is a 83 year old male who presents for presurgical testing. Patient has been having difficulty with urination. He was admitted to [facility] due to weakness when he was found to have a UTI and urinary retention and ultimately resulted in a craig catheter. Patient states that his prostate was three times the size it was supposed to be. He states the craig catheter was in place for three weeks and now he straight catheterizes himself at home with the help of his . Patient denies hematuria. He states that he catheterizes 4 times a day. He states that he is starting to feel more pressure and is trying to use the restroom as normal due to the pressure being painful but is not having much success. Denies any recent fever or chills. Patient denies any other problems or concerns at this time. Risks and benefits of the procedure discussed by Surgeon and patient agreed to proceed with planned procedure. REVIEW OF SYSTEMS: General: No weight loss, malaise or fevers. Negative for: weight loss >10% of BW in last 6 months, malaise and fever. Neurological: Negative for: seizures and strokes. Respiratory: Negative for: asthma, COPD, pneumonia within 6 weeks, URI < 2 weeks and obstructive sleep apnea. Cardiovascular: Positive for: CAD, hyperlipidemia and hypertension Negative for: atrial fibrillation, chest pain, CHF and DVT/PE. GI: Negative for: GERD and liver disease. : See HPI. Endocrine: Positive for: diabetes mellitus. Patient's diabetes mellitus is controlled by oral agents. Negative for: hyperthyroidism. Hematology: Positive for: anemia and iron deficiency anemia. Oncology: No history of CA metastasis, chemo within 30 days, or radiotherapy within 90 days. No history of oncological symptoms or problems. Psych: Positive for: anxiety and depression. Musculoskeletal: Positive for: back pain and joint pain. Skin: Negative for lesions, rash and itching. PAST MEDICAL HISTORY Diagnosis Date Acute leukemia of unspecified cell type in remission Ambulates with cane Benign neoplasm of colon BPH (benign prostatic hypertrophy) with urinary obstruction 01/06/2013 Controlled type 2 diabetes mellitus without complication, without long-term current use of insulin (HCC) 07/24/2016 Degenerative disc disease, cervical 12/09/2015 Depression Diabetes mellitus (HCC) 07/14/2010 Elevated alkaline phosphatase level 01/10/2021 01/09/21 alk phos 142 Gout 08/25/2012 High cholesterol History of splenectomy 02/07/2015 Hypertension Inguinal hernia 04/08/2014 LBBB (left bundle branch block) Leukemia in remission (HCC) Lumbar disc disease with radiculopathy 04/06/2013 Mental disorder Mild cognitive impairment with memory loss 09/13/2015 Retention of urine Snoring spinal stenosis PAST SURGICAL HISTORY Procedure Laterality Date COLONOSCOPY FLX DX W/COLLJ SPEC WHEN PFRMD 04/06/2003 Repeat in COLONOSCOPY FLX DX W/COLLJ SPEC WHEN PFRMD 02/17/2013 Colonoscopy COLONOSCOPY FLX DX W/COLLJ SPEC WHEN PFRMD 06/03/2018 Colonoscopy EGD 08/24/2003 + hpylori PAST SURGICAL HISTORY OF 2001 back surgery PAST SURGICAL HISTORY OF 2000 back surgery PAST SURGICAL HISTORY OF Right 2018 hemiarthroplasty of hip PAST SURGICAL HISTORY OF 02/2023 parathryroid removed REMV CATARACT EXTRACAP,INSERT LENS Bilateral 2012 RPR 1ST INGUN HRNA AGE 7 YRS/> REDUCIBLE 08/29/2020 Hernia repair, inguinal,left 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 TONSILLECTOMY PRIMARY/SECONDARY <AGE 14 Tonsillectomy as a child FAMILY HISTORY Problem Relation Age of Onset Cancer Mother ovarian Heart Father COPD Sister Cancer Sister retroorbital Social History Tobacco Use Smoking status: Former Packs/day: 0.50 Years: 20.00 Pack years: 10.00 Types: Cigarettes Quit date: 05/21/1999 Years since quittin.9 Smokeless tobacco: Never Vaping Use Vaping Use: Never used Substance Use Topics Alcohol use: Yes Comment: occasionally Drug use: Never Prior to Admission medications as of 05/10/23 0758 Medication Sig Last Dose Taking PARoxetine (PAXIL) 10 mg tablet Take 1 tablet by mouth once daily. Yes doxazosin (CARDURA) 8 mg tablet Take 1 tablet by mouth daily at bedtime. Yes Cholecalciferol, Vitamin D3, 25 mcg (1,000 unit) cap Take 1,000 Units by mouth once daily. Yes naproxen sodium (ANAPROX) 220 mg tablet Take 220 mg by mouth twice daily with meals. as needed for pain Yes calcium carbonate (TUMS) 500 mg chew Take 1 tablet by mouth every hour as needed. Yes bxkcgmr-dkhqynoiu-keysbve D3 (CALCIUM 500+D) 500 mg-5 mcg (200 unit) per tablet Take 1 tablet by mouth three times daily with meals. Yes acetaminophen (TYLENOL EXTRA STRENGTH) 500 mg tablet Take 1 tablet by mouth every 6 hours as needed for pain. Yes memantine (NAMENDA) 10 mg tablet Take 1 tablet by mouth twice daily. Yes allopurinol (ZYLOPRIM) 300 mg tablet TAKE 1 TABLET BY MOUTH ONCE DAILY. FOR GOUT. Yes metFORMIN (GLUCOPHAGE) 500 mg tablet Take 1 tablet by mouth twice daily with meals. Yes IFEREX 150 150 mg iron capsule Take 150 mg by mouth once daily. Yes finasteride (PROSCAR) 5 mg tablet Take 1 tablet by mouth once daily. Yes atorvastatin (LIPITOR) 10 mg tablet Take 1 tablet by mouth once daily. Yes donepezil (ARICEPT) 10 mg tablet Take 1 tablet by mouth daily at bedtime. Yes losartan (COZAAR) 50 mg tablet Take 1 tablet by mouth once daily. Yes Medication Comments documented by María Mcdonnell RN on 03/19/2023 at 1329. 03/19/23 SOC no severe interactions noted ALLERGIES Allergen Reactions Altace [Ramipril] Gabapentin Other: See Comments tremors Toprol Xl [Metoprol* Objective PHYSICAL EXAM: General: alert and oriented and healthy appearance. Pertinent negatives noted - not distressed. Skin: normal color, no rash or lesions. HEENT: EOM intact and pupils equal round. Cardiovascular: regular rate and rhythm, normal S1 and S2, no rub, murmurs, or gallop. Respiratory: normal breath sounds, no wheezes or crackles. No chest wall deformity or tenderness. Abdomen: bowel sounds present. Extremities: no deformity, no edema or tenderness, no joint swelling or clubbing. Neurological: normal cognition and motor skills. Positive for abnormal gait and limb weakness. Limb weakness located left LE and right LE. PAIN ASSESSMENT: Pain Pain Level: 0 VITALS: BP 135/68 Pulse 60 Temp 97.7 Resp 18 Ht 5' 4 (1.63m) Wt 135 lb (61.2kg) SpO2 98% BMI 23.16 kg/(m^2). Diagnostic tests reviewed for today's visit: Lab Value Units Date High Low HB 10.5 g/dL 03/10/2023 17.0 13.0 HCT 31.9 % 03/10/2023 51.0 39.0 WBC 10.34 k/uL 03/10/2023 11.00 3.70 PLT 269 k/uL 03/10/2023 400 150 NA 139 mmol/L 03/25/2023 144 136 K 5.0 mmol/L 03/25/2023 5.1 3.7 GLUC 90 mg/dL 03/25/2023 99 74 BUN 25 mg/dL 03/25/2023 24 9 CREAT 1.32 mg/dL 03/25/2023 1.22 0.73 PTSEC No results within date range. INR No results within date range. APTT No results within date range. ALT 46 U/L 03/10/2023 54 10 AST 38 U/L 03/10/2023 40 14 TBILI 0.2 mg/dL 03/10/2023 1.3 0.2 TSH 3.260 mIU/L 03/10/2023 4.200 0.270 Lab Value Units Date High Low HCGQT No results within date range. UHCG No results within date range. HCG, BODY* No results within date range. Lab Value Units Date High Low ABORHD No results within date range. ABSCREEN No results within date range. Hemoglobin A1C (%) Date Value 11/15/2022 5.6 05/07/2022 5.7 11/06/2021 5.4 01/09/2021 6.0 06/23/2020 6.0 01/12/2019 6.0 2018 6.0 Hemoglobin A1C (POCT) (%) Date Value 09/07/2019 5.7 HGB A1C (no units) Date Value 10/21/2019 5.9 Recent Results (from the past 8760 hour(s)) ECG COMPLETE Collection Time: 02/15/23 8:49 AM Result Value Ventricular Rate 55 Atrial Rate 55 P-R Interval 176 QRS Duration 140 QT Interval 486 QTC Calculation (Bazett) 464 Calculated P [place] 38 Calculated R [place] -31 Calculated T [place] 137 Impression SINUS BRADYCARDIA LEFT AXIS DEVIATION COMPLETE LEFT BUNDLE BRANCH BLOCK ABNORMAL ECG Confirmed by DAYRON HUYNH DO ([id number]) on 02/20/2023 4:19:35 PM Recent Results (from the past 85614 hour(s)) ECHO Collection Time: 11/21/21 1:46 PM Impression CONCLUSIONS: - Technically difficult exam due to suboptimal positioning and body habitus. - Exam indication: Shortness of Breath - The left ventricle is normal in size. Left ventricular systolic function is mildly decreased. EF = 50 5% (visual est.) Grade I left ventricular diastolic dysfunction. - The right ventricle is normal in size. Right ventricular systolic function is normal. - There are no significant valvular abnormalities. - Exam was compared with the prior echocardiographic exam performed on 10/03/2020, no significant change. * * * Final * * * Assessment Patient has the following medical conditions which may affect bertha-operative course: Pre-op examination see note for medical conditions which may affect bertha-operative course that were addressed at today's visit. Benign prostatic hyperplasia with urinary retention Surgery scheduled 05/23/[address] Gaona Retention of urine, unspecified Surgery scheduled 05/23/[address] Gaona Hyperlipidemia LDL goal <100 Atorvastatin. Instructed patient t continue taking medication as prescribed. Primary hypertension Losartan- instructed patient to take medication morning of surgery. Cardura- instructed patient to continue taking as normal, as patient takes at bedtime. Coronary atherosclerosis Follows with cardiology- last OV 11/26/22 ECHO 11/21/21: CONCLUSIONS: - Technically difficult exam due to suboptimal positioning and body habitus. - Exam indication: Shortness of Breath - The left ventricle is normal in size. Left ventricular systolic function is mildly decreased. EF = 50 5% (visual est.) Grade I left ventricular diastolic dysfunction. - The right ventricle is normal in size. Right ventricular systolic function is normal. - There are no significant valvular abnormalities. - Exam was compared with the prior CC echocardiographic exam performed on 10/03/2020, no significant change. Cardiomyopathy, nonischemic (HCC) Follows with cardiology- last OV 11/26/22 Echo 11/21/21: CONCLUSIONS: - Technically difficult exam due to suboptimal positioning and body habitus. - Exam indication: Shortness of Breath - The left ventricle is normal in size. Left ventricular systolic function is mildly decreased. EF = 50 5% (visual est.) Grade I left ventricular diastolic dysfunction. - The right ventricle is normal in size. Right ventricular systolic function is normal. - There are no significant valvular abnormalities. - Exam was compared with the prior CC echocardiographic exam performed on 10/03/2020, no significant change. JOELLE (iron deficiency anemia) Iferex. Iron 49, TIBC 368, Transferrin 13.3 05/07/22 H&H 10.5/31.9 03/10/23. CBC ordered per surgeon in PAT. Type 2 diabetes mellitus, without long-term current use of insulin (HCC) Metformin. Instructed patient to hold medication morning of surgery. A1C 5.6 11/15/22 Arteriosclerosis of both carotid arteries US carotids 05/16/22: IMPRESSION Compared to prior study of 09/19/2015, no significant change. RIGHT SIDE Internal carotid artery: 20-39% stenosis. Vertebral artery: Patent and antegrade flow noted. LEFT SIDE Common carotid artery: Plaque visualized without evidence of hemodynamically significant stenosis. Internal carotid artery: 0-19% stenosis. Vertebral artery: Patent and antegrade flow noted. Mild cognitive impairment with memory loss Namenda and Aricept. Instructed patient to continue taking medication as prescribed. Grubbs Activity Status Index: METS: Climb a flight of stairs or walk up a hill (5.50 METs) DASI Score: 5.5 (Limited d/t knee pain and utilizing ambulatory aide) Patient denies any chest pain or undue shortness of breath with the above physical activity. Patient is partially dependent. Clinical Frailty Scale: 4. Apparently vulnerable ARISCAT Score: Age: >80 Preoperative SpO2: >=96% Respiratory infection in the last month: No Preoperative anemia: Yes Surgical incision: peripheral Duration of surgery: <2 hrs Emergency procedure: No ARISCAT Score: 27 ANESTHESIA FINDINGS: Intubation History: No history of difficult intubation. No abnormal airway history Significant Anesthesia Considerations: none Airway History: No history of difficult airway No abnormal airway history I - PHYSICAL EVALUATION AIRWAY Patient intubated: No. DENTAL Dental findings: teeth intact. Additional comments: + cap on front tooth. II - ANESTHESIA PLAN Anesthetic Plan: general Beta Lynn Monitoring Plan Post Procedure Analgesic Plan Prepared for Surgery: CONSULTS: Patient does not require consults for optimization at this time Planned Anesthetic: general The Following Tests/Procedures Have Been Initiated: BMP, CBC, and urine culture ordered in [facility] per surgeon. Patient's given sterile urine specimen cup and biohazard bag and will get urine specimen at home and take to [facility] lab due to patient needing to self catheterize. states that they will complete this on Saturday05/13/23 when patient has another appointment at [facility] that day. Implantable Devices: bilateral IOLs, and hardware in neck and back Assessment/Plan BPH with obstruction/lower urinary tract symptoms [N40.1, N13.8] Retention of urine, unspecified [R33.9] PLAN Planned Procedure: Procedure(s): TURP COMPLETE (N/A) CYSTOSCOPY (N/A) I spent a total of 50 minutes on the date of the service which included preparing to see the patient, [id number] patient care, completing clinical documentation, obtaining and/or reviewing separately obtained history, performing a medically appropriate examination, and counseling and educating the patient/family/caregiver. Instructions Given to Patient: Instructions located in the after visit summary. Patient given verbal and written preop instructions and voices comprehension and compliance. SIGNATURE: Melissa Mendez APRN.CNP PATIENT NAME: Michael Mullins DATE: May 10, 2023 TIME: 8:00 AM PAGER/CONTACT #: documented in this encounter [facility] 05-07-2023 Instructions Melissa Mendez APRN.CNP - 05/07/2023 2:45 PM EDT PATIENT PREOPERATIVE INSTRUCTIONS Your surgeon has scheduled for your procedure at this surgery center: [facility]: [phone], [address] [id number] Please enter through the main entrance and proceed to the blue elevators. The surgery welcome center is located to the left of the blue elevator. Please read below carefully for your personalized instructions. SURGERY DATE : 05/23/2023 -Your surgeon's office will call you with your ARRIVAL TIME for surgery the afternoon before surgery with a scheduled arrival time. If you are scheduled for a Saturday surgery they will call you Saturday for your arrival time. - Please be aware that emergency situations arise, which may delay or change your surgical time. If this happens, we will notify you as soon as possible and regret any inconvenience. Requirement for Vaccinations : 72-hour period between getting vaccine and date of surgery. Dietary Restrictions: - Nothing to eat after midnight. - You may have 12 ounces of clear liquids ( water, Gatorade, apple juice, carbonated beverage, clear tea or black coffee) until 4 hours before your surgery. This is important because if you do, your surgery may have to be cancelled Blood Thinning Medications: - Stop NSAIDS (Ibuprofen, Advil, Aleve, Motrin, Celebrex, Mobic, etc.) 7 days before surgery, as directed by your surgeon. You may take Tylenol (Acetaminophen) or any of your pain medications that do not contain aspirin or NSAIDS as needed. IF YOU TAKE ANY OF THE FOLLOWING BLOOD THINNERS, PLEASE CONTACT YOUR SURGEON AND THE PHYSICIAN WHO PRESCRIBES IT FOR YOU IN ORDER TO GET PERIOPERATIVE INSTRUCTIONS SOON POSSIBLE. BLOOD THINNERS: Aspirin , Coumadin, Plavix, Eliquis, Pradaxa, Xarelto, Lovenox, Brilinta, Effient, Savaysa, Arixtra, etc - Stop Vitamin E, fish oil, multivitamins, Marijuana, CBD oil and other over the counter herbals and dietary supplements 7 days before surgery. -This would not apply to cancer patients who are prescribed Marinol or any other prescription form on marijuana or CBD. Medications: Approved medications to take the morning of surgery with a sip of water: BP, HCTZ, Heart, thyroid, psych, seizure, and pain medications excluding NSAIDS. Use inhalers as prescribed. Please bring inhalers. Diabetes Please follow up with the provider that manages your diabetes and how to prepare you for surgery. If you are taking the following medications for Type 2 diabetes: Canagliflozin (INVOKANA), dapagliflozin (FARXIGA), and empagliflozin (JARDIANCE) should each be discontinued at least 3 days before scheduled surgery. Ertugliflozin (STEGLATRO) should be discontinued at least four days before scheduled surgery. If you have a stimulator, implant or pump that requires a remote please bring the remote with you day of surgery. Erectile dysfunction: If you take any medications for erectile dysfunction- Cialis (Tadalafil), Levitra, Staxyn, (Vardenafil), Viagra (Sildenenafil). Please do not take these for 48 hours before surgery. Pain Medications: Tylenol for pain as needed and if you are not allergic to. If you start any new medications after today's visit, please contact the surgeon's office. Important Reminders: - If you use CPAP/BIPAP, bring the machine with you to the surgery center. - If you are prescribed inhalers for breathing, continue using them AND bring them to the surgery center. - Candy, mints, gum and tobacco products are NOT permitted the morning of surgery. - Hearing aids, dentures and glasses may be worn the morning of surgery. - NO jewelry, body piercings, makeup, hairpins or contacts are to be worn the day of surgery. -Oral hygiene and a shower or bath is required the evening before or the morning of surgery. Use the Veodia body wash supplied to you along with the instruction. - NO lotion, creams, powders or deodorants on the skin the day of surgery -Wear loose, comfortable clothing that will accommodate bandages. -Your length of stay will be determined by your surgeon - You will need to have someone else (Family or friend) drive you home once discharged from the hospital. You are not allowed to drive yourself home after surgery. - YOU MUST HAVE A RESPONSIBLE MARINE ENGINEERING CONSULTANT TAKE YOU HOME. A GENERAL STORE MANAGER, CAB OR UBER MARINE ENGINEERING CONSULTANT CANNOT BE MADE A RESPONSIBLE MARINE ENGINEERING CONSULTANT. - You cannot stay in a hotel alone after outpatient surgery. You will not be permitted to have your surgery, if you do not have someone to take care of you. If you develop symptoms such as a fever, cold, or flu, or have other changes to your health within TWO DAYS of scheduled surgery or the morning of surgery, please contact the surgery center above. Personal Belongings: - Leave ALL valuables and money at home or with family members. - You will need a form of ID and insurance card to check in the morning of surgery. - You will have to wear a hospital gown during your stay but if you wish to bring undergarments for after surgery you may. Current Outpatient Medications on File Prior to Visit Medication Sig PARoxetine (PAXIL) 10 mg tablet Take 1 tablet by mouth once daily. Ok to continue taking doxazosin (CARDURA) 8 mg tablet Take 1 tablet by mouth daily at bedtime. Ok to continue taking Cholecalciferol, Vitamin D3, 25 mcg (1,000 unit) cap Take 1,000 Units by mouth once daily. Hold 7 days prior to surgery naproxen sodium (ANAPROX) 220 mg tablet Take 220 mg by mouth twice daily with meals. as needed for pain Hold 7 days prior to surgery calcium carbonate (TUMS) 500 mg chew Take 1 tablet by mouth every hour as needed. Hold 7 days prior to surgery vhkwxqz-yctrgflav-pvpivlw D3 (CALCIUM 500+D) 500 mg-5 mcg (200 unit) per tablet Take 1 tablet by mouth three times daily with meals. Hold 7 days prior to surgery acetaminophen (TYLENOL EXTRA STRENGTH) 500 mg tablet Take 1 tablet by mouth every 6 hours as needed for pain. Ok to continue taking memantine (NAMENDA) 10 mg tablet Take 1 tablet by mouth twice daily. Take morning of surgery allopurinol (ZYLOPRIM) 300 mg tablet TAKE 1 TABLET BY MOUTH ONCE DAILY. FOR GOUT. Ok to continue taking metFORMIN (GLUCOPHAGE) 500 mg tablet Take 1 tablet by mouth twice daily with meals. Hold morning of surgery IFEREX 150 150 mg iron capsule Take 150 mg by mouth once daily. Hold 7 days prior to surgery finasteride (PROSCAR) 5 mg tablet Take 1 tablet by mouth once daily. Ok to continue taking atorvastatin (LIPITOR) 10 mg tablet Take 1 tablet by mouth once daily. Ok to continue taking donepezil (ARICEPT) 10 mg tablet Take 1 tablet by mouth daily at bedtime. Ok to continue taking losartan (COZAAR) 50 mg tablet Take 1 tablet by mouth once daily. Take morning of surgery No current facility-administered medications on file prior to visit. Melissa Mendez APRN.CNP 05/10/23 documented in this encounter [facility] 05-07-2023 History of Past i llness Narrative Problem Noted Date Resolved Date Pre-op examination 05/07/2023 05/20/2023 Last Assessment & Plan: see note for medical conditions which may affect bertha-operative course that were addressed at today's visit. Shortness of breath 10/30/2021 03/25/2023 Personal history of fall 07/28/2020 023 Last Assessment & Plan: Assessment: hx, uses cane LBBB (left bundle branch block) 06/03/2018 03/25/2023 Last Assessment & Plan: Assessment: hx, per EKG, follows cardiology documented as of this encounter (statuses as of 05/20/2023) [facility] History of Past illness Narrative* Problem Noted Date Resolved Date Pre-op examination 05/07/2023 05/20/2023 Last Assessment & Plan: see note for medical conditions which may affect bertha-operative course that were addressed at today's visit. Shortness of breath 10/30/2021 03/25/2023 Personal history of fall 07/28/20202 023 Last Assessment & Plan: Assessment: hx, uses cane LBBB (left bundle branch block) 06/03/2018 03/25/2023 Last Assessment & Plan: Assessment: hx, per EKG, follows cardiology documented as of this encounter (statuses as of 05/21/2023) [facility] History of Past illness Narrative* Problem Noted Date Diagnosed Date Resolved Date Pre-op examination 05/07/2023 Last Assessment & Plan: see note for medical conditions which may affect bertha-operative course that were addressed at today's visit. Shortness of breath 10/30/2021 03/25/20 23 Personal history of fall 07/28/202006/2023 Last Assessment & Plan: Assessment: hx, uses cane LBBB (left bundle branch block) 06/03/2018 03/25/2023 Last Assessment & Plan: Assessment: hx, per EKG, follows cardiology documented as of this encounter (statuses as of 05/28/2023) [facility] History of Past illness Narrative* Problem Noted Date Diagnosed Date Resolved Date Pre-op examination 05/07/2023 Last Assessment & Plan: see note for medical conditions which may affect bertha-operative course that were addressed at today's visit. Shortness of breath 10/30/2021 03/25/20 23 Personal history of fall 07/28/202006/2023 Last Assessment & Plan: Assessment: hx, uses cane LBBB (left bundle branch block) 06/03/2018 03/25/2023 Last Assessment & Plan: Assessment: hx, per EKG, follows cardiology documented as of this encounter (statuses as of 05/30/2023) [facility] of Past illness Narrative* Problem Noted Date Diagnosed Date Resolved Date Pre-op examination 05/07/2023 Last Assessment & Plan: see note for medical conditions which may affect bertha-operative course that were addressed at today's visit. Shortness of breath 10/30/2021 03/25/20 23 Personal history of fall 07/28/202006/2023 Last Assessment & Plan: Assessment: hx, uses cane LBBB (left bundle branch block) 06/03/2018 03/25/2023 Last Assessment & Plan: Assessment: hx, per EKG, follows cardiology documented as of this encounter (statuses as of 05/31/2023) [facility] of Past illness Narrative* Problem Noted Date Diagnosed Date Resolved Date Pre-op examination 05/07/2023 Last Assessment & Plan: see note for medical conditions which may affect bertha-operative course that were addressed at today's visit. Shortness of breath 10/30/2021 03/25/20 23 Personal history of fall 07/28/202006/2023 Last Assessment & Plan: Assessment: hx, uses cane LBBB (left bundle branch block) 06/03/2018 03/25/2023 Last Assessment & Plan: Assessment: hx, per EKG, follows cardiology documented as of this encounter (statuses as of 08/01/2023) [facility] of Past illness Narrative* Problem Noted Date Diagnosed Date Resolved Date Pre-op examination 05/07/2023 Last Assessment & Plan: see note for medical conditions which may affect bertha-operative course that were addressed at today's visit. Shortness of breath 10/30/2021 03/25/20 23 Personal history of fall 07/28/202006/2023 Last Assessment & Plan: Assessment: hx, uses cane LBBB (left bundle branch block) 06/03/2018 03/25/2023 Last Assessment & Plan: Assessment: hx, per EKG, follows cardiology documented as of this encounter (statuses as of 01/01/2024) [facility] of Past illness Narrative* Problem Noted Date Diagnosed Date Resolved Date Pre-op examination 05/07/2023 Last Assessment & Plan: see note for medical conditions which may affect bertha-operative course that were addressed at today's visit. Shortness of breath 10/30/2021 03/25/20 23 Personal history of fall 07/28/202006/2023 Last Assessment & Plan: Assessment: hx, uses cane LBBB (left bundle branch block) 06/03/2018 03/25/2023 Last Assessment & Plan: Assessment: hx, per EKG, follows cardiology documented as of this encounter (statuses as of 01/20/2024) [facility] of Past illness Narrative* Problem Noted Date Diagnosed Date Resolved Date Pre-op examination 05/07/2023 Last Assessment & Plan: see note for medical conditions which may affect bertha-operative course that were addressed at today's visit. Shortness of breath 10/30/2021 03/25/20 23 Personal history of fall 07/28/202006/2023 Last Assessment & Plan: Assessment: hx, uses cane LBBB (left bundle branch block) 06/03/2018 03/25/2023 Last Assessment & Plan: Assessment: hx, per EKG, follows cardiology documented as of this encounter (statuses as of 02/20/2024) [facility] Miscellaneous Notes* Telephone Encounter - Bianka Gan - 05/03/2023 2:05 PM EDT Pt is scheduled for Cysto, TURP with Dr Gaona at [facility] on 05/23/23 @ 11:45 (9:45 arrival). PAT and labs on 05/10/23 @ 8:00 at [facility]. Medical clearance request faxed to pt's pcp Dr Antony Espinoza, [phone], on 05/03/23. 1 week pvr check with nurse at [facility] on 05/30/23 @ 8:30. [address] Gaona on 06/07/23 @ 9:30. Pt and given date, time, prep and arrival instructions in person on 05/03/23. Written info given also. Bianka Gan [facility]* Patient Instructions* Shaji Gaona MD - 05/03/2023 10:55 AM EDT Images from the original note were not included. INSTRUCTIONS FROM DR. GAONA: We will schedule the TURP PATIENT INFORMATION: Benign Enlargement of the Prostate Benign (noncancerous) enlargement of the prostate, known as benign prostatic hyperplasia, or BPH, is the most common prostate problem in men. Almost all men will develop some enlargement of the prostate as they age. Who is affected by prostate enlargement? Overall, the number of men with BPH increases progressively with age. By age 60, 50% of men will have some signs of BPH. By age 85, 90% of men will have signs of the condition. About half of these men will develop symptoms that need to be treated. Does having benign prostatic hyperplasia increase your risk of developing prostate cancer? Based on research to date, having BPH does not seem to increase the risk of developing prostate cancer. However, BPH and prostate cancer have similar symptoms, and a man who has BPH may have undetected cancer at the same time. To help detect prostate cancer in its early stages, the [employer] and the [employer] recommend a screening every year for men ages 50 to 70. They further recommend that men who are at high risk -- such as -[place]i men and men with a family history of prostate cancer -- begin screening at about age 40. Screening tests for prostate cancer include a blood test for a substance called prostate-specific antigen (PSA) and the digital rectal exam (ROMELIA). What are the symptoms of benign prostatic hyperplasia? Since the prostate gland surrounds the urethra (the tube that carries urine outside the body), it is easy to understand that enlargement of the prostate can lead to blockage of the tube. Therefore, you may develop: Slowness or dribbling of your urinary stream Hesitancy or difficulty starting to urinate Frequent urination Feeling of urgency (sudden need to urinate) Need to get up at night to urinate As symptoms progress, you may develop: The enlargement of the prostate can lead to blockage of the urethra. Bladder stones Bladder infection Blood in your urine Damage to your kidneys from back pressure caused by retaining large amounts of extra urine in the bladder Sudden blockage of the urinary tube, making urination impossible How is benign prostatic hyperplasia diagnosed? Your doctor will look at your medical history and give you a complete physical. Your doctor will perform a digital rectal examination by inserting a gloved, lubricated finger into your rectum to feelthe prostate. Because the prostate gland is in front of the rectum, it is relatively easy for the doctor to feel much of the gland. This enables him or her to estimate the size of the prostate and todetect any hard areas that could be cancer. Several studies may be performed to help diagnose your condition: A seven-question survey may be completed to evaluate your symptoms. A flow study may be conducted to measure how slow the urinary stream is compared with normal flow. A study may be conducted to detect how much urine is left in the bladder after urination is completed. In addition, the physician may need to look into the bladder. The procedure is called cystoscopy. How is benign prostatic hyperplasia treated? Patients with mild symptoms may not require treatment other than continued observation to make suretheir condition doesn't get worse. This approach is sometimes called watchful waiting or surveillance. There are a number of treatment options available if your symptoms are severe: Treatments for BPH include: Medication Proscar was one of the first drugs used to treat BPH. It works by slowing the production of the hormone dihydrotestosterone (DHT), which affects the growth of the prostate gland. Proscar appears to be most beneficial for men with larger prostates. Drugs that relax the muscle in the prostate (to reduce the tension on the urine tube) are more commonly used. These include Hytrin, Cardura, and Flomax. The most common side effects are light-headedness and weakness. Surgery A number of surgical procedures have been used to remove the prostate tissue blocking the flow of urine. The most common procedure is called transurethral resection of the prostate (TURP). There are several different variations on this technique. It involves removing the tissue blocking the urethra (urine tube) with a special instrument. Although TURP is an effective treatment, there are potential side effects, including bleeding, infection, impotence (inability to maintain an erection suitable for sex) and incontinence (inability to control the flow of urine). Transurethral electrovaporization: This technique uses electrical energy applied through an electrode to rapidly heat prostate tissue, turning the tissue cells into steam. This allows the doctor to vaporize an area of the enlarged tissue and relieve urinary blockage. The Greenlight laser: This is commonly used to treat BPH and is associated with less bleeding afterthe procedure. Another, less complicated procedure is transurethral incision of the prostate (TUIP). Instead of removing tissue, as with TURP, this approach involves widening the urethra by making several small cuts in the bladder neck (area where the urethra and bladder join), as well as in the prostate gland itself. This relieves some of the pressure on the urethra and improves urine flow. Transurethral resection of the prostate (TURP) A resectoscope loaded with a diathermy loop is introduced into the bladder. Under direct vision, strips of prostatic adenoma are resected one at a time and dropped into the bladder. After the entire adenoma is resected, the prostate chips are evacuated from the bladder and hemostasis is achieved with electrocautery. Graphic 72084 Version 1.0 2020 [employer] and/or its affiliates. All Rights Reserved. documented in this encounterProvidence Hospital06-16-[facility]23 History of Present illness Narrative* Shaji Gaona MD - 05/03/2023 10:42 AM EDT ESTABLISHED PATIENT OFFICE VISIT PATIENT INFO: Michael Mullins 83 year old HPI 05/03/2023 CC: cath He is doing self cath 3 times a day and not voiding in between Presents with his Denies chest pain or shortness of breath Remains on Cardura and Proscar and ambulates with cane They want to move ahead with TURP and will schedule Get medical clearance Not on blood thinners Past Urology Hx: 2023 CC: cysto Patient presents with his for cystoscopy and ultrasound of prostate and he says a couple weeksago he had an voiding trial but failed and no and offered or training with intermittent catheterization he says On med list-patient on Proscar and Cardura In November 2022-saw Lorenzo Carballo in residual urine was 0 cc Presents with his today Cystoscopy shows some BPH but not huge prostate He learn to do intermittent catheterization effectively and he wants to try that and see if starts voiding on own and see me back in 2 weeks for evaluation Gave UroLift information and also discussed TURP and both could be options but if he starts voidingon his own may be UroLift could be more of an option of TURP depending on their attitude Prostate used to be larger as noted below Patient ambulates with walker April 05, 2023-seen by Lorenzo Carballo- 82 year old male with a history of BPH for year and had been doing well on Proscar daily with no issues After his para-thyroid surgery in Nov 2022, has not been able to pass a TOV , he has had several attempted with voiding He would like to discuss possible TUR or Urolift if possible, so I ordered pre- tests and he will have them soon And then will be abl to discuss Uro-Lift vs TUR with surgeon Procedure: Performed a TOV. Bladder filled through craig with 200 ml of Sterile water/Saline, removing water from balloon the craig was removed and patient voided 0 ml. Assessment/Plan: > Craig catheter removal with failed TOV x 3 > on Cardura and Proscar , we discussed switching to Flomax , or CIC, but he is wanting to see if he can have Uro-Lift, so I will arrange the testing and consult Lorenzo Carballo, MPAS, MT, PA-C June 23, 2021-seen by Lorenzo Carballo- Patient here for 1 year follow-up. Feels fantastic. No voiding complaints. PSA - pending . Very stable. Patient prefers conservative management.has not take Proscar 5 mg for some time now Restart Proscar 5 mg June 29, 2015-seen by [facility] urology- 1 year follow-up previous prostate biopsy 1 year ago was negative. Feels fantastic. No nausea vomiting diarrhea fevers chills or weight loss. No blood pressures consistent with blood in urine. His P's XE Edita 4.2.8. Happy with his clinical status. I reviewed his previous negative biopsy. RADS: 2023-Cystoscopy/ultrasound prostate-volume 37.7 cc without enlarged middle lobe on sagittalview; no urethral stricture and mild trilobar BPH noted and there is a lot of white sediment in thebladder and hard to get complete visualization but there is trabeculation with some cellule formation and no obvious bladder mass but not Perfect visualization--Patient filled with 350 cc of fluid but unable to void and then able to learn intermittent catheterization May 10, 2014-ultrasound/biopsy of prostate-[facility] urology--- Volume 57 cc Creatinine Date Value Ref Range Status 03/25/2023 1.32 (H) 0.73 - 1.22 mg/dL Final PSA (ng/mL) Date Value 01/09/2021 4.43 01/12/2019 3.30 07/18/2017 3.05 08/21/2016 2.69 04/19/2016 2.80 06/13/2015 2.83 02/02/2015 2.72 04/08/2014 3.60 01/12/2013 3.00 12/14/2006 2.09 PSA Screening (ng/mL) Date Value 11/15/2022 1.78 11/06/2021 2.51 Color (no units) Date Value 03/10/2023 Yellow Clarity (no units) Date Value 03/10/2023 Clear Glucose, Urine Date Value 03/10/2023 Negative 01/06/2010 neg mg/dL Bilirubin, Urine (no units) Date Value 03/10/2023 Negative 01/06/2010 neg Ketones, Urine (no units) Date Value 03/10/2023 Negative 01/06/2010 neg Specific [place], Ur (no units) Date Value 03/10/2023 1.010 01/06/2010 1.010 Hemoglobin/Blood,Ur (no units) Date Value 03/10/2023 2+ 01/06/2010 moderate pH, Urine (no units) Date Value 03/10/2023 5.5 01/06/2010 7.0 Protein, Urine Date Value 03/10/2023 1+ 01/06/2010 30 mg/dL Urobilinogen (no units) Date Value 03/10/2023 0.2 EU/dL Nitrites (no units) Date Value 03/10/2023 Negative 01/06/2010 neg Leuk Esterase (no units) Date Value 03/10/2023 1+ Review of Systems Constitutional: Negative. HENT: Negative. Eyes: Negative. Respiratory: Negative. Cardiovascular: Negative. Gastrointestinal: Negative. Endocrine: Negative. Genitourinary: See HPI Musculoskeletal: Negative. Skin: Negative. Allergic/Immunologic: Negative. Neurological: Negative. Hematological: Negative. Psychiatric/Behavioral: Negative. 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 (benign prostatic hypertrophy) with urinary obstruction 01/06/2013 Controlled type 2 diabetes mellitus without complication, without long-term current use of insulin ([facility]) 07/24/2016 Degenerative disc disease, cervical 12/09/2015 Diabetes mellitus (HCC) 07/14/2010 Elevated alkaline phosphatase level 01/10/2021 01/09/21 alk phos 142 Gout 08/25/2012 History of splenectomy 02/07/2015 Hypertension Inguinal hernia 04/08/2014 LBBB (left bundle branch block) Lumbar disc disease with radiculopathy 04/06/2013 Mental disorder Mild cognitive impairment with memory loss 09/13/2015 Snoring spinal stenosis FAMILY HISTORY Problem Relation Age of Onset Cancer Mother ovarian Heart Father COPD Sister Cancer Sister retroorbital SOCIAL HISTORY Social History Tobacco Use Smoking status: Former Packs/day: 0.50 Years: 20.00 Pack years: 10.00 Types: Cigarettes Quit date: 05/21/1999 Years since quittin.9 Smokeless tobacco: Never Vaping Use Vaping Use: Never used Substance Use Topics Alcohol use: Yes Comment: occasionally Drug use: Never MEDICATIONS: PARoxetine (PAXIL) 10 mg tablet Take 1 tablet by mouth once daily. doxazosin (CARDURA) 8 mg tablet Take 1 tablet by mouth daily at bedtime. Cholecalciferol, Vitamin D3, 25 mcg (1,000 unit) cap Take 1,000 Units by mouth once daily. naproxen sodium (ANAPROX) 220 mg tablet Take 220 mg by mouth twice daily with meals. as needed for pain calcium carbonate (TUMS) 500 mg chew Take 1 tablet by mouth every hour as needed. nehoxop-konvnuszq-tadqgov D3 (CALCIUM 500+D) 500 mg-5 mcg (200 unit) per tablet Take 1 tablet by mouth three times daily with meals. acetaminophen (TYLENOL EXTRA STRENGTH) 500 mg tablet Take 1 tablet by mouth every 6 hours as neededfor pain. memantine (NAMENDA) 10 mg tablet Take 1 tablet by mouth twice daily. allopurinol (ZYLOPRIM) 300 mg tablet TAKE 1 TABLET BY MOUTH ONCE DAILY. FOR GOUT. metFORMIN (GLUCOPHAGE) 500 mg tablet Take 1 tablet by mouth twice daily with meals. IFEREX 150 150 mg iron capsule Take 150 mg by mouth once daily. finasteride (PROSCAR) 5 mg tablet Take 1 tablet by mouth once daily. atorvastatin (LIPITOR) 10 mg tablet Take 1 tablet by mouth once daily. donepezil (ARICEPT) 10 mg tablet Take 1 tablet by mouth daily at bedtime. losartan (COZAAR) 50 mg tablet Take 1 tablet by mouth once daily. Physical Exam HENT: Head: Normocephalic and atraumatic. Nose: Nose normal. Neck: Trachea: No tracheal deviation. Pulmonary: Effort: Pulmonary effort is normal. No respiratory distress. Musculoskeletal: General: No deformity. Comments: Ambulates slowly with a cane Skin: General: Skin is warm. Neurological: Mental Status: He is alert and oriented to person, place, and time. Gait: Gait is intact. Psychiatric: Mood and Affect: Mood and affect normal. Cognition and Memory: Memory normal. Risk/Benefit Discussion: TUR Prostate I explained the options concerning surgery versus medication.I explained the possibility of impotency, retrograde ejaculation, and incontinence ,the possibility of blood loss, and transfusion and thefact that he may be admitted post operatively. I explained the post operative urgency, frequency, and dysuria. Risk of anesthesia complications, stroke, NE, etc.The patient expressed an understandingwith regard to possible complications and outcome. FOLLOW UP (1s&1w; 3s): Return if symptoms worsen or fail to improve. ASSESSMENT/PLAN: 1. Benign prostatic hyperplasia with urinary retention - ICD9: 600.01, 788.20, ICD10: N40.1, R33.8 (primary diagnosis) [facility]-TURP 2. Poor urinary stream - ICD9: 788.62, ICD10: R39.12 Shaji Gaona Please note: This note has been produced using speech recognition software and may contain errors related to that system including grammar, punctuation, spelling, gender and words and phrases that may be inappropriate. documented in this encounterProvidence Hospital06-14-2023 Miscellaneous Notes* PT DISCHARGE - Jennifer Clark, PT - 05/01/2023 2:00 PM EDT SITUATION: only patient present during today's visit. patient reports the following since the last homecare visit: medications/allergies--no changes, no fall. patient reports he is very pleased with how is doing . He is hopeful that the urologist will be able to do something for his bladder and he wont have to straight cath anymore BACKGROUND: Diagnoses (reason for Home Care): [facility]- for weakness then transferred to [facility] 03/08/2023 - 03/18/2023. UTI ,MOISES Weight Bearing/Precaution Changes: no changes ASSESSMENT: Focus of visit: reassessment/discharge Physical therapy discharged: goals achieved. Functional performance at discharge - transfers independent, ambulation independent and stairs independent. Plan of care, goals, and discharge reviewed and agreed upon with patient and/or caregiver. RECOMMENDATION: Patient discharged from home health services. Instructions to include:home exercise program as directed See intervention summary for intervention/education details. documented in this encounterProvidence Hospital06-08-2023 Miscellaneous Notes* PT ROUTINE/REASSESSMENT/RECERT/CASE MGMT - Jade Swathi, ENVIRONMENTAL SUSTAINABILITY MANAGER - 04/25/2023 11:15 AM EDT SITUATION: only patient present during today's visit. patient reports the following since the last homecare visit: medications/allergies--no changes, no fall. patient reports he feels like his legs are getting stronger. BACKGROUND: Diagnoses (reason for Home Care): [facility]- for weakness then transferred to [facility] 03/08/2023 - 03/18/2023. UTI ,MOISES Weight Bearing/Precaution Changes: no changes ASSESSMENT: Focus of visit progressed standing strength exercises for HEP. Gait training w/ww Plan of care, goals, and visit frequency reviewed and agreed upon with patient and/or caregiver. Current Discharge Plan: independent with home exercise program Anticipate discharge by 05/01/23 RECOMMENDATION: Next visit to focus on increase reps for endurance See intervention summary for intervention/education details. documented in this encounterProvidence Hospital06-06-2023 Miscellaneous Notes* Telephone Encounter - Marisol Birmingham Ma - 04/23/2023 1:25 PM EDT Detailed message left for Cori * Telephone Encounter - Antony Espinoza MD - 04/23/2023 12:19 PM EDT ok * Telephone Encounter - Francia Yusuf RN - 04/23/2023 11:59 AM EDT Cori- PT- [facility]- asking for verbal order to extend PT 2 x week for 2 more weeks. documented in this encounterProvidence Hospital06-02-2023 Miscellaneous Notes* PT ROUTINE/REASSESSMENT/RECERT/CASE MGMT - Cori Chowdhury PT - 04/19/2023 4:08 PM EDT SITUATION: only patient present during today's visit. patient reports the following since the last homecare visit: medications/allergies--no changes, no fall. patient reports feeling stronger, has no SOB, has been using the cane now that they took the catheter out. still feels like he can get stronger with more PT . Does his exercises every day 2 sets of 10 reps BACKGROUND: Diagnoses (reason for Home Care): [facility]- for weakness 03/06- then [facility] 03/08/2023 - 03/18/2023. UTI ,MOISES Weight Bearing/Precaution Changes: no changes WeightASSESSMENT: Focus of visit reassessment, gait training with lowered cane, Pt will benefit from continued skilled PT to reach goals Plan of care, goals, and visit frequency reviewed and agreed upon with patient and/or caregiver. Current Discharge Plan: independent with home exercise program Anticipate discharge by 05/03/23 RECOMMENDATION: Continue PT 2w2 Next visit to focus on gait/ther ex to reach goals See intervention summary for intervention/education details. documented in this encounterProvidence Hospital06-02-2023 Miscellaneous Notes* Telephone Encounter - Harinder Isaac RN - 04/19/2023 8:[address] Antony Espinoza, Patient has been discharged per skilled home health nurse as a discipline discharge for home healthcare. Patient is still being seen per home therapy. Thank you for choosing [facility] for [facility] to serve your patient's home careneeds. Harinder Isaac RN documented in this encounterProvidence Hospital05-31-2023 Miscellaneous Notes* PT ROUTINE/REASSESSMENT/RECERT/CASE MGMT - Jade Echevarria PTA - 04/17/2023 12:15 PM EDT SITUATION: spouse present during today's visit. patient and caregiver reports the following since the last homecare visit: medications/allergies--no changes, no fall. caregiver reports got catheter removed yesterday. Patient has to felf cath every 4-5 hours. is hoping this will stimulate bladder to start working again. BACKGROUND: Diagnoses (reason for Home Care): [facility]- for weakness 03/06- then [facility] 03/08/2023 - 03/18/2023. UTI ,MOISES Weight Bearing/Precaution Changes: no changes ASSESSMENT: Focus of visit denied pain throughout, Patient is very motivated and works hard w/ exercises/ Requires verbal and tactile cues throughout for upright posture and form. Continues to fatigue and requires rest breaks throughout. Requires ww for houshold mobility and uses rollator for community distances. Plan of care, goals, and visit frequency reviewed and agreed upon with patient and/or caregiver. Current Discharge Plan: family support Anticipate discharge by TBD RECOMMENDATION: Next visit to focus on PT to see for reassessment See intervention summary for intervention/education details. documented in this encounterProvidence Hospital05-30-2023 Instructions* Patient Instructions* Shaji Gaona MD - 2023 3:34 PM EDT Images from the original note were not included. INSTRUCTIONS FROM DR. GAONA: Perform the intermittent catheterization as needed and see how you do PATIENT INFORMATION: Benign Enlargement of the Prostate Benign (noncancerous) enlargement of the prostate, known as benign prostatic hyperplasia, or BPH, is the most common prostate problem in men. Almost all men will develop some enlargement of the prostate as they age. Who is affected by prostate enlargement? Overall, the number of men with BPH increases progressively with age. By age 60, 50% of men will have some signs of BPH. By age 85, 90% of men will have signs of the condition. About half of these men will develop symptoms that need to be treated. Does having benign prostatic hyperplasia increase your risk of developing prostate cancer? Based on research to date, having BPH does not seem to increase the risk of developing prostate cancer. However, BPH and prostate cancer have similar symptoms, and a man who has BPH may have undetected cancer at the same time. To help detect prostate cancer in its early stages, the [employer] and the [employer] recommend a screening every year for men ages 50 to 70. They further recommend that men who are at high risk -- such as -[place]i men and men with a family history of prostate cancer -- begin screening at about age 40. Screening tests for prostate cancer include a blood test for a substance called prostate-specific antigen (PSA) and the digital rectal exam (ROMELIA). What are the symptoms of benign prostatic hyperplasia? Since the prostate gland surrounds the urethra (the tube that carries urine outside the body), it is easy to understand that enlargement of the prostate can lead to blockage of the tube. Therefore, you may develop: Slowness or dribbling of your urinary stream Hesitancy or difficulty starting to urinate Frequent urination Feeling of urgency (sudden need to urinate) Need to get up at night to urinate As symptoms progress, you may develop: The enlargement of the prostate can lead to blockage of the urethra. Bladder stones Bladder infection Blood in your urine Damage to your kidneys from back pressure caused by retaining large amounts of extra urine in the bladder Sudden blockage of the urinary tube, making urination impossible How is benign prostatic hyperplasia diagnosed? Your doctor will look at your medical history and give you a complete physical. Your doctor will perform a digital rectal examination by inserting a gloved, lubricated finger into your rectum to feelthe prostate. Because the prostate gland is in front of the rectum, it is relatively easy for the doctor to feel much of the gland. This enables him or her to estimate the size of the prostate and todetect any hard areas that could be cancer. Several studies may be performed to help diagnose your condition: A seven-question survey may be completed to evaluate your symptoms. A flow study may be conducted to measure how slow the urinary stream is compared with normal flow. A study may be conducted to detect how much urine is left in the bladder after urination is completed. In addition, the physician may need to look into the bladder. The procedure is called cystoscopy. How is benign prostatic hyperplasia treated? Patients with mild symptoms may not require treatment other than continued observation to make suretheir condition doesn't get worse. This approach is sometimes called watchful waiting or surveillance. There are a number of treatment options available if your symptoms are severe: Treatments for BPH include: Medication Proscar was one of the first drugs used to treat BPH. It works by slowing the production of the hormone dihydrotestosterone (DHT), which affects the growth of the prostate gland. Proscar appears to be most beneficial for men with larger prostates. Drugs that relax the muscle in the prostate (to reduce the tension on the urine tube) are more commonly used. These include Hytrin, Cardura, and Flomax. The most common side effects are light-headedness and weakness. Surgery A number of surgical procedures have been used to remove the prostate tissue blocking the flow of urine. The most common procedure is called transurethral resection of the prostate (TURP). There are several different variations on this technique. It involves removing the tissue blocking the urethra (urine tube) with a special instrument. Although TURP is an effective treatment, there are potential side effects, including bleeding, infection, impotence (inability to maintain an erection suitable for sex) and incontinence (inability to control the flow of urine). Transurethral electrovaporization: This technique uses electrical energy applied through an electrode to rapidly heat prostate tissue, turning the tissue cells into steam. This allows the doctor to vaporize an area of the enlarged tissue and relieve urinary blockage. The Greenlight laser: This is commonly used to treat BPH and is associated with less bleeding afterthe procedure. Another, less complicated procedure is transurethral incision of the prostate (TUIP). Instead of removing tissue, as with TURP, this approach involves widening the urethra by making several small cuts in the bladder neck (area where the urethra and bladder join), as well as in the prostate gland itself. This relieves some of the pressure on the urethra and improves urine flow. PATIENT INFORMATION: Clean Intermittent Catheterization for Men Clean intermittent catheterization is a procedure for people who have trouble urinating the normal way. In a clean intermittent catheterization procedure, you insert a catheter (a thin, hollow tube) into your bladder to help you urinate. People who need to perform clean intermittent catheterization include those who have certain medical conditions, including: stroke Parkinson's disease multiple sclerosis spinal cord injuries spinal surgeries erectile dysfunction trauma/accidents central nervous system tumors cerebral palsy heavy metal poisoning If you have to perform clean intermittent catheterization, you will be inserting and removing the catheter several times a day; your doctor will tell you how many times. By performing this procedure every day, you will not have to wear a catheter all the time. In addition, you will help prevent kidney infection and keep your bladder from stretching. Here are the steps for performing a clean intermittent catheterization. Supplies You will need the following supplies: a catheter soap and towels a water-based lubricant plastic bags Before you insert the catheter Try to urinate before you insert the catheter. This will help prevent infection in your bladder. Also, move your clothing out of the way before you start. You will need to remove your pants and underwear. Men Inserting the catheter Wash your hands with soap and water. Wash your genital area thoroughly with soap and water to reduce the chance of infection. If you arenot circumcised, pull back the foreskin and wash the area thoroughly. Take the catheter out of the package. Put a large amount of lubricant over the end of the catheter. This will help it slide in more easily. Do NOT use a petroleum-based lubricant. Sit on or stand near a toilet and spread your legs. Hold your penis out from your body in a horizontal position. Take the catheter in the other hand and gently insert it into the opening of the penis. Hold the other end of the catheter over the toilet bowl. Keep pushing the catheter until it reaches the bladder and urine starts to flow through the catheter. Insert the catheter another inch or so and hold it there. When the urine stops flowing, pinch off and gently remove the catheter. If you need to reuse the catheter, wash it with soap and warm water and place it in a plastic bag until the next time. However, if you are using a disposable catheter, simply throw it away. Wash your hands with soap and water. Most insurance companies are giving disposable catheters that you use once and then throw away. If you were not given disposable catheters, you can use a catheter for two to four weeks and replace itif it becomes discolored, hard, or brittle, or simply doesn t work properly anymore. Remember to always wash your hands with soap and water before you catheterize yourself, and drink plenty of liquids. These simple measures help fight infection. In addition, wear cotton boxer underwear, as these allow airflow and help keep you dry. Some troubleshooting advice What if no urine comes out of the catheter? Gently rotate the catheter in case it is blocked. Try gently pushing the catheter a little farther up into the penis or pull it back. What if I have pain or discomfort in inserting or removing the catheter? You may need to use more lubricant. Pain or discomfort may also be caused by muscle spasms. It helps to take a deep breath andtry to relax before you catheterize yourself. Breathe in, then insert or remove the catheter as youslowly let your breath out. What if there is blood on the catheter or in the urine? This may happen if the opening is too dry. Try using more lubricant. Make sure you are drinking enough fluids. Blood in the urine could also mean you have an infection. Please call your caregiver if any of the following occurs: if you run a fever; if your urine is thick, cloudy, or has mucus in it; if you have red specks in your urine or your urine looks pink or red; if your urine has a strong smell; if you have pain or burning in your bladder, abdomen, or in your urethra (opening in the penis); if you have any questions. Transurethral resection of the prostate (TURP) A resectoscope loaded with a diathermy loop is introduced into the bladder. Under direct vision, strips of prostatic adenoma are resected one at a time and dropped into the bladder. After the entire adenoma is resected, the prostate chips are evacuated from the bladder and hemostasis is achieved with electrocautery. Graphic 11359 Version 1.0 2020 [employer] and/or its affiliates. All Rights Reserved. documented in this encounterProvidence Hospital05-30-2023 Procedure note* Shaji Gaona MD - 2023 2:38 PM EDTProcedure(s): CYSTOSCOPY; US, TRANSRECTAL Pre-Procedure Diagnose(s): Benign prostatic hyperplasia with urinary retention Post-Procedure Diagnose(s): Benign prostatic hyperplasia with urinary retention CYSTOSCOPY/TRUS PROCEDURE NOTE: [id number] Craig/complex-[id number] Craig/uncomp-[id number] BLADDER IRRIGATION, SIMPLE, LAVAG [[id number] Ray Gena Mullins is a 83 year old male who presents with /for cystoscopy And TRUS Pt ID verified with patient: yes Procedure verified with patient: cystoscopy/ TRUS Procedure confirmed with physician and operations support analyst: yes Special equipment-cystoscope with ultrasound of the prostate equipment UNIVERSAL PROTOCOL / SAFETY CHECKLIST Procedure to be Performed: cysto/trus Sign In: A Moment of CARE was completed. Personnel directly involved with the procedure wore the appropriate PPE (Personal Protective Equipment). Patient/Surrogate Stated/Verified: PATIENT VERIFIED(optional for EMERGENT procedures): Patient name, Date of , Relevant allergies, and The intended procedure Time Out Communication: Intended patient and procedure match the source documents. Consent documented and matches the intended procedure. Relevant labs, photos, and/or imaging studies have been reviewed. No correct side/site applicable for marking and visibility. Medications required for procedure verified. Fire risk assessed and interventions discussed. No implant(s) inserted. Sign Out: SIGN OUT (optional for EMERGENT procedures): All specimen containers correctly labeled. All instruments, equipment, possible retained foreign bodies accounted for. Post-procedure follow-up management communicated and Plan of Care Visit completed when applicable. Shaji Gaona MD A urinalysis was performed---- revealing no evidence of infection. Antibiotic was-Bactrim The benefits, risks, alternatives of the cystoscopy procedure and personnel were discussed with thepatient. The verbal consent was obtained and the patient agrees to proceed. Craig catheter removed Procedure: The patient was placed on the procedure table in the supine position and prepped and draped in the usual sterile fashion. 2% Lidocaine Jelly was placed per urethra as an anesthetic in the standard fashion. Once adequate local anesthesia was achieved, the tip of the flexible cystoscope was carefully placed into the urethra under direct visual guidance. Cystoscopy/ultrasound prostate-volume 37.7 cc without enlarged middle lobe on sagittal view; no urethral stricture and mild trilobar BPH noted and there is a lot of white sediment in the bladder and hard to get complete visualization but there is trabeculation with some cellule formation and no obvious bladder mass but not Perfect visualization TRUS: Gland length: Gland volume: 37.7 cc Concretions: no Cysts: no Hypoechoic nodules: no Images captured for EMR At the conclusion of the procedure, the flexible cystoscope was removed atraumatically. The patient tolerated the procedure without complications. Patient was given standard post-procedure instructions, and was directed to complete the course of oral antibiotics and increase oral fluid intake as directed. ASSESSMENT/PLAN: 1. Benign prostatic hyperplasia with urinary obstruction - ICD9: 600.01, 599.69, ICD10: N40.1, N13.8 - US CYSTO/TRUS (POC) GUKI USE ONLY Shaji Gaona MD See progress note for plans Shaji Gaona MD documented in this encounterProvidence Hospital05-30-2023 History of Present illness Narrative* Shaji Gaona MD - 2023 2:18 PM EDT ESTABLISHED PATIENT OFFICE VISIT PATIENT INFO: Michael Mullins 83 year old HPI 2023 CC: cysto Patient presents with his for cystoscopy and ultrasound of prostate and he says a couple weeksago he had an voiding trial but failed and no and offered or training with intermittent catheterization he says On med list-patient on Proscar and Cardura In November 2022-saw Lorenzo Carballo in residual urine was 0 cc Presents with his today Cystoscopy shows some BPH but not huge prostate He learn to do intermittent catheterization effectively and he wants to try that and see if starts voiding on own and see me back in 2 weeks for evaluation Gave UroLift information and also discussed TURP and both could be options but if he starts voidingon his own may be UroLift could be more of an option of TURP depending on their attitude Prostate used to be larger as noted below Patient ambulates with walker Past Urology Hx: April 05, 2023-seen by Lorenzo Carballo- 82 year old male with a history of BPH for year and had been doing well on Proscar daily with no issues After his para-thyroid surgery in Nov 2022, has not been able to pass a TOV , he has had several attempted with voiding He would like to discuss possible TUR or Urolift if possible, so I ordered pre- tests and he will have them soon And then will be abl to discuss Uro-Lift vs TUR with surgeon Procedure: Performed a TOV. Bladder filled through craig with 200 ml of Sterile water/Saline, removing water from balloon the craig was removed and patient voided 0 ml. Pt was NOT able to empty his bladder on own without straining The indwelling craig was removed without difficulty. The patient tolerated the procedure well. Assessment/Plan: > Craig catheter removal with failed TOV x 3 > on Cardura and Proscar , we discussed switching to Flomax , or CIC, but he is wanting to see if he can have Uro-Lift, so I will arrange the testing and consult Lorenzo Carballo, MPAS, [place], PA-C June 23, 2021-seen by Lorenzo Carballo- Patient here for 1 year follow-up. Feels fantastic. No voiding complaints. PSA - pending . Very stable. Patient prefers conservative management.has not take Proscar 5 mg for some time now Restart Proscar 5 mg June 29, 2015-seen by [facility] urology- 1 year follow-up previous prostate biopsy 1 year ago was negative. Feels fantastic. No nausea vomiting diarrhea fevers chills or weight loss. No blood pressures consistent with blood in urine. His P's XE Edita 4.2.8. Happy with his clinical status. I reviewed his previous negative biopsy. RADS: 2023-Cystoscopy/ultrasound prostate-volume 37.7 cc without enlarged middle lobe on sagittalview; no urethral stricture and mild trilobar BPH noted and there is a lot of white sediment in thebladder and hard to get complete visualization but there is trabeculation with some cellule formation and no obvious bladder mass but not Perfect visualization--Patient filled with 350 cc of fluid but unable to void and then able to learn intermittent catheterization May 10, 2014-ultrasound/biopsy of prostate-[facility] urology--- Volume 57 cc Creatinine Date Value Ref Range Status 03/25/2023 1.32 (H) 0.73 - 1.22 mg/dL Final PSA (ng/mL) Date Value 01/09/2021 4.43 01/12/2019 3.30 07/18/2017 3.05 08/21/2016 2.69 04/19/2016 2.80 06/13/2015 2.83 02/02/2015 2.72 04/08/2014 3.60 01/12/2013 3.00 12/14/2006 2.09 PSA Screening (ng/mL) Date Value 11/15/2022 1.78 11/06/2021 2.51 Color (no units) Date Value 03/10/2023 Yellow Clarity (no units) Date Value 03/10/2023 Clear Glucose, Urine Date Value 03/10/2023 Negative 01/06/2010 neg mg/dL Bilirubin, Urine (no units) Date Value 03/10/2023 Negative 01/06/2010 neg Ketones, Urine (no units) Date Value 03/10/2023 Negative 01/06/2010 neg Specific [place], Ur (no units) Date Value 03/10/2023 1.010 01/06/2010 1.010 Hemoglobin/Blood,Ur (no units) Date Value 03/10/2023 2+ 01/06/2010 moderate pH, Urine (no units) Date Value 03/10/2023 5.5 01/06/2010 7.0 Protein, Urine Date Value 03/10/2023 1+ 01/06/2010 30 mg/dL Urobilinogen (no units) Date Value 03/10/2023 0.2 EU/dL Nitrites (no units) Date Value 03/10/2023 Negative 01/06/2010 neg Leuk Esterase (no units) Date Value 03/10/2023 1+ Review of Systems Constitutional: Negative. HENT: Negative. Eyes: Negative. Respiratory: Negative. Cardiovascular: Negative. Gastrointestinal: Negative. Endocrine: Negative. Genitourinary: See HPI Musculoskeletal: Negative. Skin: Negative. Allergic/Immunologic: Negative. Neurological: Negative. Hematological: Negative. Psychiatric/Behavioral: Negative. 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 (benign prostatic hypertrophy) with urinary obstruction 01/06/2013 Controlled type 2 diabetes mellitus without complication, without long-term current use of insulin (HCC) 07/24/2016 Degenerative disc disease, cervical 12/09/2015 Diabetes mellitus (HCC) 07/14/2010 Elevated alkaline phosphatase level 01/10/2021 01/09/21 alk phos 142 Gout 08/25/2012 History of splenectomy 02/07/2015 Hypertension Inguinal hernia 04/08/2014 LBBB (left bundle branch block) Lumbar disc disease with radiculopathy 04/06/2013 Mental disorder Mild cognitive impairment with memory loss 09/13/2015 Snoring spinal stenosis FAMILY HISTORY Problem Relation Age of Onset Cancer Mother ovarian Heart Father COPD Sister Cancer Sister retroorbital SOCIAL HISTORY Social History Tobacco Use Smoking status: Former Packs/day: 0.50 Years: 20.00 Pack years: 10.00 Types: Cigarettes Quit date: 05/21/1999 Years since quittin.9 Smokeless tobacco: Never Vaping Use Vaping Use: Never used Substance Use Topics Alcohol use: Yes Comment: occasionally Drug use: Never MEDICATIONS: PARoxetine (PAXIL) 10 mg tablet Take 1 tablet by mouth once daily. doxazosin (CARDURA) 8 mg tablet Take 1 tablet by mouth daily at bedtime. Cholecalciferol, Vitamin D3, 25 mcg (1,000 unit) cap Take 1,000 Units by mouth once daily. naproxen sodium (ANAPROX) 220 mg tablet Take 220 mg by mouth twice daily with meals. as needed for pain calcium carbonate (TUMS) 500 mg chew Take 1 tablet by mouth every hour as needed. sirkqvk-yxzknfjqa-fqdmxxy D3 (CALCIUM 500+D) 500 mg-5 mcg (200 unit) per tablet Take 1 tablet by mouth three times daily with meals. acetaminophen (TYLENOL EXTRA STRENGTH) 500 mg tablet Take 1 tablet by mouth every 6 hours as neededfor pain. memantine (NAMENDA) 10 mg tablet Take 1 tablet by mouth twice daily. allopurinol (ZYLOPRIM) 300 mg tablet TAKE 1 TABLET BY MOUTH ONCE DAILY. FOR GOUT. metFORMIN (GLUCOPHAGE) 500 mg tablet Take 1 tablet by mouth twice daily with meals. IFEREX 150 150 mg iron capsule Take 150 mg by mouth once daily. finasteride (PROSCAR) 5 mg tablet Take 1 tablet by mouth once daily. atorvastatin (LIPITOR) 10 mg tablet Take 1 tablet by mouth once daily. donepezil (ARICEPT) 10 mg tablet Take 1 tablet by mouth daily at bedtime. losartan (COZAAR) 50 mg tablet Take 1 tablet by mouth once daily. Physical Exam HENT: Head: Normocephalic and atraumatic. Nose: Nose normal. Neck: Trachea: No tracheal deviation. Pulmonary: Effort: Pulmonary effort is normal. No respiratory distress. Musculoskeletal: General: No deformity. Comments: Ambulates with a walker with wheels Skin: General: Skin is warm. Neurological: Mental Status: He is alert and oriented to person, place, and time. Gait: Gait is intact. Psychiatric: Mood and Affect: Mood and affect normal. Cognition and Memory: Memory normal. Risk/Benefit Discussion: Discussed options alpha lynn therapy vs proscar vs surical intervention and risks of these. Alpha bolckers can cause dizzines and falls. Discussed risk bladder decompinsation snf could be anissue if no surgical intervention. .dgruroli TUR Prostate I explained the options concerning surgery versus medication.I explained the possibility of impotency, retrograde ejaculation, and incontinence ,the possibility of blood loss, and transfusion and thefact that he may be admitted post operatively. I explained the post operative urgency, frequency, and dysuria. Risk of anesthesia complications, stroke, NE, etc.The patient expressed an understandingwith regard to possible complications and outcome. FOLLOW UP (1s&1w; 3s): Return in about 2 weeks (around 04/30/2023). ASSESSMENT/PLAN: 1. Benign prostatic hyperplasia with urinary obstruction - ICD9: 600.01, 599.69, ICD10: N40.1, N13.8 (primary diagnosis) - US CYSTO/TRUS (POC) GUKI USE ONLY - SULFAMETHOXAZOLE 800 MG-TRIMETHOPRIM 160 MG TABLET - LIDOCAINE 2 % MUCOSAL JELLY IN APPLICATOR - CATHETER ORDER FOR HOME - CYSTO.PANENDO - TRUS ONLY - INSERT,NON-INDW BLADDER CATH 2. Nocturia - ICD9: 788.43, ICD10: R35.1 3. Poor urinary stream - ICD9: 788.62, ICD10: R39.12 Shaji Gaona Please note: This note has been produced using speech recognition software and may contain errors related to that system including grammar, punctuation, spelling, gender and words and phrases that may be inappropriate. documented in this encounterProvidence Hospital05-17-2023 Miscellaneous Notes* PT ROUTINE/REASSESSMENT/RECERT/CASE MGMT - Jose Solomon PTA - 04/03/2023 10:56 AM EDT SITUATION: only patient present during today's visit. patient reports the following since the last homecare visit: medications/allergies--no changes, no fall. patient reports that he walks within the home every1-2 hours, has not been compliant to full HEP. Agreeable to PT. BACKGROUND: Diagnoses (reason for Home Care): [facility]- for weakness 03/06- [facility] 03[facility]18[facility]20[facility]. UTI ,MOISES Weight Bearing/Precaution Changes: no changes ASSESSMENT: Focus of visit Supine and seated ther ex for LE strengthening. Standing balance work at sink (not added to HEP). Patient reported comfort with the session. Plan of care, goals, and visit frequency reviewed and agreed upon with patient and/or caregiver. Current Discharge Plan: independent with home exercise program Anticipate discharge by TBD RECOMMENDATION: Next visit to focus on standing balance review See intervention summary for intervention/education details. documented in this encounterProvidence Hospital05-12-2023 Miscellaneous Notes* SN Routine - Monae Bobo RN - 03/29/2023 1:55 PM EDT SITUATION: Assisted routine visit completed today. only patient present during today's visit. patient reports the following: Allergies--reviewed Medications--reviewed current medications Falls--None BACKGROUND: Reason for Home Care: post hospital for weakness, urinary retention ASSESSMENT: SN greeted at door by patient utilizing walker and demonstrates stable gait. Patient appears in no acute distress. Patient/CG concerns verbalized today: Pt verbalizes that he had a voiding trial at urology this am and was not successful, craig was replaced. Vitals (see flow sheet for details): stable SN findings today: Pt ambulated to door using a walker. He has craig bag attached to walker. His gait is steady. Pt reports that he is still weak but feels that he is improving. Pt reports that the therapist just left before SN arrived. SN encouraged and instructed pt to continue his HEP on days that therapy does not come. Craig cath is drining light slightly bloody urine from when cath was reinstered today. Pt primarily drinks iced tea and states that he drinks 2-3 bottles (16 oz). Discussed other fluids that may be more appropriate to flush bladder. He states that he likes lemonade. SN highly encouraged pt to drink more lemonade as this would better flush the bladder and is also good for his kidneys. Pt reports that bowels have been moving. He states that his appetite is increasing. Pt reports that the labs were drawn at Dr Espinoza's office earlier this week, results noted in EPIC. See intervention summary for education details. Patient demonstrated a need for further skilled SN services for chronic disease management & education, safety and urinary catheter care. Current Discharge plan: family support RECOMMENDATION: Next visit to focus on (be specific): follow up on voiding trial, CP check. documented in this encounterProvidence Hospital05-12-2023 Miscellaneous Notes* PT ROUTINE/REASSESSMENT/RECERT/CASE MGMT - Jade Swathi, ERIC - 03/29/2023 12:57 PM EDT SITUATION: only patient present during today's visit. patient reports the following since the last homecare visit: medications/allergies--no changes, no fall. patient reports he just got home alittle while ago from Dr appointment. States he wasnt able to get rid of cathater today. Will go back next week and try again. BACKGROUND: Diagnoses (reason for Home Care): [facility]- for weakness 03/06- then transferred to [facility] 03/08/2023 - 03/18/2023. UTI ,MOISES Weight Bearing/Precaution Changes: no changes ASSESSMENT: Focus of visit reviewed and performed seated and supine LE strength exercises for HEP. Patient required much cueing for correct form and pace, denies any pain w/ exercises. Gait training w/ww Plan of care, goals, and visit frequency reviewed and agreed upon with patient and/or caregiver. Current Discharge Plan: family support Anticipate discharge by TBD RECOMMENDATION: Next visit to focus on try adding standing heel raises and hip abd See intervention summary for intervention/education details. documented in this encounterProvidence Hospital05-12-2023 History of Present illness Narrative* Martha Enriquez LPN - 03/29/2023 9:40 AM EDT CC Trial of Void HPI: Michael Mullins is a 82 year old male. [address] The patient is here now for a TOV and craig catheter removal. Procedure: Perform a TOV. Bladder filled through craig with 200 mL of sterile water removed fluid from balloonand the craig was removed with catheter intact and patient voided 0 mL. Pt was not able to empty his bladder on own. states they admit he did not take the Cardura length of time Lorenzo specified due to issue with pharmacy. Lorenzo notified. Reinsert craig catheter and return amara week. Inserted 18 Fr catheter using aseptic technique. 400 mLs dark yellow urine, some sediment throughout return noted. Bulb inflated with 10 mLs prefilled syringe- sterile water. Catheter secured to right inner thigh with drainage bag per patient preference. The patient tolerated the procedure well. Reviewed catheter care and verbalizes understanding. Return in one week for trial of void- continue Cardura 8 MG. Martha Enriquez LPN Assessment/Plan: > Craig catheter removal with TOV with reinsertion of craig catheter. Martha Enriquez LPN documented in this encounterProvidence Hospital05-10-2023 Miscellaneous Notes* Telephone Encounter - Martha Enriquez LPN - 03/27/2023 2:27 PM EDT Called- no answer, left message to call clinic for message. Martha Enriquez LPN * Telephone Encounter - Martha Enriquez LPN - 03/26/2023 5:46 PM EDT Called- no answer, left message to call clinic for message. Martha Enriquez LPN * Telephone Encounter - Martha Enriquez LPN - 03/26/2023 12:47 PM EDT Called- no answer, left message to call clinic for message. Martha Enriquez LPN * Telephone Encounter - Martha Enriquez LPN - 03/25/2023 10:24 AM EDT Called patient/[place]- no answer- mailbox is full. Patient was scheduled for Lorenzo Carballo PA-C on Saturday but needed scheduled with nurse. Changed appointment to 09. If not okay please reschedule. Martha Enriquez LPN documented in this encounterProvidence Hospital05-10-2023 Miscellaneous Notes* PT ROUTINE/REASSESSMENT/RECERT/CASE MGMT - Jade Echevarria PTA - 03/27/2023 12:49 PM EDT SITUATION: spouse present during today's visit. patient and caregiver reports the following since the last homecare visit: medications/allergies--no changes, no fall. patient reports he is feeling better every day. BACKGROUND: Diagnoses (reason for Home Care): [facility]- for weakness then transferred to [facility] 03/08/2023 - 03/18/2023. UTI ,MOISES Weight Bearing/Precaution Changes: no changes ASSESSMENT: Focus of visit estabolished HEP for LE strengthenig. Gait training w/ww Plan of care, goals, and visit frequency reviewed and agreed upon with patient and/or caregiver. Current Discharge Plan: family support Anticipate discharge by TBD RECOMMENDATION: Next visit to focus on increase ambulation distances See intervention summary for intervention/education details. documented in this encounterProvidence Hospital05-08-2023 Miscellaneous Notes* Telephone Encounter - Zina Garcia Hall Coordinator - 03/25/2023 9:47 AM EDT There has been a delay in service for Home Care OT Evaluation for this patient due to schedule conflict. Attempted to notify patient - the number listed went to voicemail and I was unable to leave a message because the mailbox is full. Thank you for this referral, please contact us with any questions. Zina Garcia Hall Coordinator documented in this encounterProvidence Hospital05-08-2023 History of Present illness Narrative* Antony Espinoza MD - 03/25/2023 8:51 AM EDT Patient presents with: Hospital F/U HPI: Patient presents today for office visit for hospital follow up. Admitted into [facility] on 03/06/23 Transferred to [facility] 03/08/23 for PT and discharged 03/18/23. Initially went to [facility] ER due to weakness, debility and B/L knee pain. Still complains of knee pain.Left knee is more severe. 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 UTI was discovered in [facility]. Straight cath done and over 1200 cc urine output. Craig inserted. 2 voiding trials done and he's still unable to urinate on his own. Craig still place. Urine yellow and clear. No hematuria. No fever. Seeing urology at [facility]. Goes again on Saturday. Has indwelling craig. Urine clear. Admitted with [facility] with knee pain and and knee effusion. Was placed on steroids and begun on therapy. Was admitted more for safety issues. They did not have him see ortho. Work up included labs. Had xrays and duplex. [facility] is following. Getting VN, physical and occupation therapy this week. No new falls. Appetite is good since parathyroid surgery. Recently had labs for his parathyroid. Memory seems to be worse since home from hospital. Discussed that it may improve once he gets stabilized. Bmp is pending. Had a1c one in last four to five months. MEDICATIONS: Current Outpatient Medications Medication Sig doxazosin (CARDURA) 8 mg tablet Take 1 tablet by mouth daily at bedtime. Cholecalciferol, Vitamin D3, 25 mcg (1,000 unit) cap Take 1,000 Units by mouth once daily. losartan (COZAAR) 50 mg tablet Take 50 mg by mouth once daily. naproxen sodium (ANAPROX) 220 mg tablet Take 220 mg by mouth twice daily with meals. as needed for pain calcium carbonate (TUMS) 500 mg chew Take 1 tablet by mouth every hour as needed. zqwvobf-balydhyvq-epfstte D3 (CALCIUM 500+D) 500 mg-5 mcg (200 unit) per tablet Take 1 tablet by mouth three times daily with meals. acetaminophen (TYLENOL EXTRA STRENGTH) 500 mg tablet Take 1 tablet by mouth every 6 hours as neededfor pain. memantine (NAMENDA) 10 mg tablet Take 1 tablet by mouth twice daily. allopurinol (ZYLOPRIM) 300 mg tablet TAKE 1 TABLET BY MOUTH ONCE DAILY. FOR GOUT. metFORMIN (GLUCOPHAGE) 500 mg tablet Take 1 tablet by mouth twice daily with meals. IFEREX 150 150 mg iron capsule Take 150 mg by mouth once daily. finasteride (PROSCAR) 5 mg tablet Take 1 tablet by mouth once daily. atorvastatin (LIPITOR) 10 mg tablet Take 1 tablet by mouth once daily. PARoxetine (PAXIL) 10 mg tablet Take 1 tablet by mouth once daily. donepezil (ARICEPT) 10 mg tablet Take 1 tablet by mouth daily at bedtime. losartan (COZAAR) 50 mg tablet Take 1 tablet by mouth once daily. No current facility-administered medications for this visit. ALLERGIES: ALLERGIES Allergen Reactions Altace [Ramipril] Gabapentin Other: See Comments tremors Toprol Xl [Metoprol* PAST MEDICAL HISTORY Diagnosis Date Acute leukemia of unspecified cell type in remission Benign neoplasm of colon BPH (benign prostatic hypertrophy) with urinary obstruction 01/06/2013 Controlled type 2 diabetes mellitus without complication, without long-term current use of insulin (HCC) 07/24/2016 Degenerative disc disease, cervical 12/09/2015 Diabetes mellitus (HCC) 07/14/2010 Elevated alkaline phosphatase level 01/10/2021 01/09/21 alk phos 142 Gout 08/25/2012 History of splenectomy 02/07/2015 Hypertension Inguinal hernia 04/08/2014 LBBB (left bundle branch block) Lumbar disc disease with radiculopathy 04/06/2013 Mental disorder Mild cognitive impairment with memory loss 09/13/2015 Snoring spinal stenosis PAST SURGICAL HISTORY Procedure Laterality Date COLONOSCOPY FLX DX W/COLLJ SPEC WHEN PFRMD 04-06-03 Repeat in COLONOSCOPY FLX DX W/COLLJ SPEC WHEN PFRMD 02/17/2013 Colonoscopy COLONOSCOPY FLX DX W/COLLJ SPEC WHEN PFRMD 06/03/2018 Colonoscopy EGD 08/24/03 + hpylori PAST SURGICAL HISTORY OF 2001 back surgery PAST SURGICAL HISTORY OF 2000 back surgery PAST SURGICAL HISTORY OF Right 2018 hemiarthroplasty of hip RPR 1ST INGUN HRNA AGE 7 YRS/> REDUCIBLE 08/29/2020 Hernia repair, inguinal,left 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 TONSILLECTOMY PRIMARY/SECONDARY <AGE 12 Tonsillectomy FAMILY HISTORY Problem Relation Age of Onset Cancer Mother ovarian Heart Father COPD Sister Cancer Sister retroorbital Social History Tobacco Use Smoking status: Former Packs/day: 0.50 Years: 20.00 Pack years: 10.00 Types: Cigarettes Quit date: 05/21/1999 Years since quittin.8 Smokeless tobacco: Never Vaping Use Vaping Use: Never used Substance Use Topics Alcohol use: Yes Comment: occasionally Drug use: Never Reviewed current medications, allergies, past medical history, surgical history, family history andsocial history today. REVIEW OF SYSTEMS All other reviewed and negative other than HPI. HEALTH MAINTENANCE: Reviewed health maintenance issues today and recommended the following in detail. DIABETIC FOOT EXAM- has appt to see podiatry soon. VITALS: BP 120/70 Pulse 60 Ht 162.6 cm (5' 4) Wt 57 kg (125 lb 9.6 oz) SpO2 98% BMI 21.56 kg/m Last 4 Encounter Wt Readings: Date: Wt: 03/24/2023 56.9 kg (125 lb 6.4 oz) 03/22/2023 60.3 kg (133 lb) 03/08/2023 56.1 kg (123 lb 11.2 oz) 02/15/2023 57.2 kg (126 lb) PHYSICAL EXAMINATION: General appearance: Well appearing, alert, in no acute distress, well-hydrated, well nourished. Skin: Skin color, texture, turgor normal, no suspicious rashes or lesions Head: Normocephalic, no masses, lesions, tenderness or abnormalities Lungs: Lungs clear to auscultation. No wheezing, rhonchi, rales Heart: RRR without murmur, gallop, or rubs. No ectopy Abdomen: Normal abdominal exam, Abdomen soft, non-tender. Bowel sounds normal. No masses, organomegaly Extremities: No deformities, edema, skin discoloration, clubbing or cyanosis. Good capillary refill. Craig draining clear urine. ASSESSMENT/PLAN: 1. Osteoarthritis of both knees, unspecified osteoarthritis type - ICD9: 715.96, ICD10: M17.0 (primary diagnosis) - they do not want surgery at his age and quality of life. They might go to ortho for injections etc. If therapy does not improve. 2. Type 2 diabetes mellitus with diabetic polyneuropathy, without long-term current use of insulin (HCC) - ICD9: 250.60, 357.2, ICD10: E11.42 - Controlled - Continue current medications 3. Mild cognitive impairment with memory loss - ICD9: 331.83, ICD10: G31.84 - see if improves now that he is back in his normal environment. 4. Lumbar disc disease with radiculopathy - ICD9: 722.10, 724.4, ICD10: M51.16 Chronic low back pain - continue therapy. 5. Atherosclerosis of [place] coronary artery of [place] heart without angina pectoris - ICD9: 414.01, ICD10: I25.10 - stable. 6. Cardiomyopathy, nonischemic (HCC) - ICD9: 425.4, ICD10: I42.8 - stable. 7. Controlled type 2 diabetes mellitus with microalbuminuria, without long-term current use of insulin (HCC) - ICD9: 250.40, 791.0, ICD10: E11.29, R80.9 - follow. 8. Benign prostatic hyperplasia with urinary obstruction - ICD9: 600.01, 599.69, ICD10: N40.1, N13.8 - seeing urology 9. 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 Andrade. 10. History of splenectomy - ICD9: V45.79, ICD10: Z90.81 - stable. 11. Urinary retention - ICD9: 788.20, ICD10: R33.9 supplier relationship director the cardura and use. Hopefully will improve things. 12. Debility - ICD9: 799.3, ICD10: R53.81 - as above. Antony Espinoza RTO in eight weeks or prn documented in this encounterProvidence Hospital05-07-2023 Miscellaneous Notes* PT EVALUATION - Jennifer Clark, PT - 03/24/2023 9:36 AM EDT SITUATION: spouse present during today's visit. patient reports the following since the last homecare visit: medications/allergies--no changes, no fall. patient reports Im getting better . BACKGROUND: Diagnoses (reason for Home Care): [facility]- for weakness 03/06- [facility] - 03/18[facility]2023. UTI ,MOISES PMH: Hairy Cell Leukemia of Lymph Nodes of Multiple Sites (Hcc) Primary Hypertension Lumbar Spinal Stenosis Coronary Atherosclerosis Arteriosclerosis of Both Carotid Arteries Benign Prostatic Hyperplasia With Urinary Obstruction Lumbar Disc Disease With Radiculopathy Inguinal Hernia Bph (Benign Prostatic Hyperplasia) History of Spl enectomy Hyperlipidemia Ldl Goal <100 Retinal Hemorrhage Mild Cognitive Impairment With Memory Loss Degenerative Disc Disease, Cervical Elevated Prostate Specific Antigen (Psa) Controlled Type 2 Diabetes Mellitus With Microalbuminuria, Without Long-Term Current Use of Insulin(Hcc) Lbbb (Left Bundle Branch Block) Cardiomyopathy, Nonischemic (Hcc) Personal History of Fall Elevated Alkaline Phosphatase Level Shortness of Breath Type 2 Diabetes Mellitus With Diabetic Polyneuropathy, Without Long-Term Current Use of Insulin (Hcc) Joelle (Iron Deficiency Anemia) After Care - Precautions/Activity Restrictions: fall, impulsive ASSESSMENT: [facility]. Reviewed and explained homecare services. Plan of care, goals, and visit frequency developed, reviewed, and agreed upon with patient and/or caregiver. Patient Goal: get stronger, be more independent Patient will benefit from continued physical therapy to address the following deficits: strength, balance, gait, endurance, transfers and stair negotiation. Current Discharge Plan:family support. Anticipate discharge by tbd RECOMMENDATION: Next visit to focus on develop HEP, gait, balance, See intervention summary for intervention/education details. documented in this encounterProvidence Hospital05-05-2023 Miscellaneous Notes* Telephone Encounter - Elicia Man RN - 03/22/2023 3:04 PM EDT Pt spouse calling in, name & verified. Pt calling to report blood in urine and pain 6/10 following craig insertion today in office. Gave pt some pain reliever and he was going to rest tosee if pain subsides.Elicia Man RN documented in this encounterProvidence Hospital05-05-2023 History of Present illness Narrative* Lorenzo Carballo PA-C - 03/22/2023 11:10 AM EDT CC Rcaig in Place HPI: Michael Mullins is a 82 year old male with a history of BPH with Obstruction . patient on Cardura for 1 mg for years as well as Proscar 5 mg Craig insertion occurred on March 10, 2023 after Parathyroid surgery and subsequent hospitalization. He had a UTI and was treated with Keflex at [facility] The patient is here now for a TOV and craig catheter removal, discussed he may dorita to increase the Cardura to 8 mg if fails TOV then would retry in 1 week after increasing dose Procedure: Perform a TOV. Bladder filled through craig with 200 mL of sterile water removed fluid from balloonand the craig was removed with catheter intact and patient voided 0 mL. Pt was not able to empty his bladder on own. . The patient tolerated the procedure well. Assessment/Plan: > Craig catheter removal with TOV ; patient to start Cardura 8 mg and remain on Proscar 5 mg > Failed TOV , craig placed and will increase his Cardura and try TOV in 1 week DAISY Lizarraga MT, PA-C IMPRESSION/PLAN: 82 year old male with . 1. Benign prostatic hyperplasia with urinary obstruction - ICD9: 600.01, 599.69, ICD10: N40.1, N13.8 (primary diagnosis) 2. 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 Controlled type 2 diabetes mellitus with microalbuminuria, without long-term current use of insulin (HCC) - ICD9: 250.40, 791.0, ICD10: E11.29, R80.9 > UTI while at [facility] and was given cephALEXin 500 mg cap(s) (KEFLEX) Order Report Completed EVERY 8 HOURS 03/11/23 03/17/23 DAISY Lizarraga MT, CARMEN * Martha Enriquez LPN - 03/22/2023 9:19 AM EDT CC Trial of Void HPI: Michael Mullins is a 82 year old male. [address] The patient is here now for a TOV and craig catheter removal. Procedure: Perform a TOV. Bladder filled through craig with 200 mL of sterile water removed fluid from balloonand the craig was removed with catheter intact and patient voided 0 mL. Pt was not able to empty his bladder on own. Inserted 18 Fr catheter using aseptic technique. 220 mLs clear yellow urine return noted. Bulb inflated with 10 mLs prefilled syringe- sterile water. Catheter secured to right inner thigh with drainage bag per patient preference. Did ask for leg bag to take as a extra and provided. . The patient tolerated the procedure well. Reviewed catheter care and verbalizes understanding. Return in one week for trial of void after starting Cardura 8 MG. Martha Enriquez LPN Assessment/Plan: > Craig catheter removal with TOV with reinsertion of craig catheter. Martha Enriquez LPN documented in this encounterProvidence Hospital05-05-2023 Instructions* Patient Instructions* Lorenzo Carballo PA-C - 03/22/2023 11:04 AM EDT > Failed TOV cragi back in place - today > Increase Cardura to 8 mg and remain on Proscar 5 mg > Nurse Appointment in 1 week for TOV documented in this encounterProvidence Hospital05-04-2023 Miscellaneous Notes* Telephone Encounter - Martha Enriquez LPN - 03/21/2023 9:14 AM EDT Called patient. No answer- call went to voicemail that is not set up. Patient is scheduled to see Lorenzo tomorrow and was calling to get small history for appointment as we are waiting on records from [facility]. Martha Enriquez LPN documented in this encounterProvidence Hospital05-02-2023 Miscellaneous Notes* SN SOC - María Mcdonnell RN - 03/19/2023 12:52 PM EDT SITUATION: Assisted SOC visit completed today. spouse also present during today's visit. patient and caregiver reports the following: Allergies--reviewed Medications--full medication reconciliation completed Falls--None DME-Reviewed and added to chart BACKGROUND: Discharged/Referral from acute rehab hospital on 03/18/23 following treatment for knee pain, failure to thrive, UTI, urinary retention requiring a craig. (pt admitted to [facility] then transferred to [place] for rehab). Pertinent referral information or other diagnoses that may affect plan of care: dementia, HTN, type2 DM. ASSESSMENT: SN greeted at door by caregiver. Upon entrance patient found in recliner Patient appears in no acute distress. Patient lives at home with his . Home environment: clean, uncluttered and has pets: 2 cats. SOC booklet reviewed & completed with patient and consent obtained for Home Care services. Patient/CG concerns verbalized today: none Vitals (see flow sheet for details): stable SN findings today: pt pleasant. pt lives with his , she helps pt with ADLs, meds, transportation. pt ambulates with a wheeled walker. pt performed well on mental status exam and converses easily,but pt's states pt is confused on waking and in the evenings. SN taught pt and CG falls prevention safety. pt has craig catheter in place, draining clear yellow urine. SN taught pt and CG how to care for craig and s/sx of UTI to report. CG is aware of need to schedule f/u with urology, states,I am going to call Dr. Carballo today. no change orders noted, pt to f/u for voiding trial. SN taught CG that pt also needs to f/u with Dr. Espinoza as well (PCP). pt does not check BG (and has not been instructed to do so), DM managed by oral medication. SN taught pt and CG diabetic foot care and s/sxof hypo/hyperglycemia. SN noted BMP ordered to be draw on 03/25, order placed in care plan. pt has his parathyroid removed on 02/27, pt has incision to neck, which is healing without complications, opento air. See intervention summary for education details and skills performed. Plan of care and visit frequency established with patient and plan of care agreed upon. Patient demonstrated a need for further skilled SN services for chronic disease management & education, labs and safety. RECOMMENDATION: Visit Frequency: 1w4 Need for additional services: Patient agreeable to PT and OT referrals. Patient declined N/A referrals. Additional concerns to be followed up on: NONE Next visit to focus on (be specific): draw BMP, check craig for complications, make sure f/u with urology as been scheduled. documented in this encounterProvidence Hospital04-29-2023 Miscellaneous Notes* Telephone Encounter - Marisol Medina LPN - 03/16/2023 1:19 PM EDT Welcome Home Call: a. Date and Time: 1:19 PM 03/16/2023 b. Contact name/relationship: Leander West (Spouse) c. Have you been active with any Home Care company in the last 60 days(such as help with bathing, filling medications, checking your blood pressure) ? No. d. [facility] will be providing your care, are you agreeable to starting these services? yes (yes or no) e. Do you have any upcoming appointments in the next few days, or restrictions to your schedule? no f. Caregiver: Leander West (Spouse) g. Confirmed Visited Location and preferred #: yes Please keep our your medications both over the counter and prescribed out for the home care to review, your hospital discharge instructions and write down any questions you might have. In order to maintain a safe environment for our caregivers, [facility] requires anyanimals or weapons present in the home be located in a secured location. Our clinicians will call you the night before or the morning of the appointment. Their # may come up restricted but they'll leave a VM for you. In case you have any questions or concerns in the meantime, our # is [phone], option 5 Thank you for your time and have a great day. Marisol Medina LPN documented in this encounterProvidence Hospital04-29-2023 Miscellaneous Notes* Telephone Encounter - Marisol Medina LPN - 03/16/2023 8:08 AM EDT Antony Espinoza MD Please advise if you are agreeable to signing and following for HHC services? Our Clinicians will be sending the Plan of Care to you for review and approval. They will reach out for any appropriate orders required to provide home care services for the patient. We are not able to initiate HHC services without a following provider. Home care clinicians may also obtain orders from [facility] Thank you and we would be happy to answer any questions. Marisol Medina LPN 03/16/2023 8:09 AM documented in this encounterProvidence Hospital04-21-[address] Griffiths [facility] March 08, 2023 2:14pm Note Date/Time March 08, 2023 2:1 4pm [facility] Medical Records Department [address] [place] [address] Discharge Summary 03/08/23 1413 MR#: [id number] Acct: [id number] Name: MICHAEL MULLINS Rep #:[id number] : 1940 82 From: James Griffiths DO PCP: Dr. Antony Espinoza MD Status:ADM I NO Location: [place] [id number] Providers Date of Admission: 03/06/23 Primary Care Physician: Dr. Antony Espinoza MD Reason For Visit: ADULT FTT Diagnosis Discharge Diagnosis (1) Generalized weakness: Status: Acute Code(s): R53.1 - Weakness Plan: Adult FTT with BL LE Weakness, Debility, no knee pain with right greater than left knee effusion noted: patient does appear to be dehydrated with mild renal insufficiency otherwise no severe electrolyte disturbances, TSH low, but fT4 WNLw PT/OT/case management consultation for discharge planning, maintain on fall precautions, will obtain BL knee plain films to be cautious, procalcitonin requested. (2) Effusion, right knee: Status: Acute Code(s): M25.461 - Effusion, right knee Plan: doubt septic arthritis nor gouty arthritis start prednisone burst. consider arthrocentesis if worse. 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 Chronic conditions: * CKD stage III, unclear subtype: Admission BUN/creatinine 34/1.64, baseline creatinine function noted previously primarily 0.9-1.2, will continue judicious hydration, repeat function in a.m., if worsening hold nephrotoxic regimen and would consider FeNa/renal US. * Recent Parathyroid surgery, questionable parathyroidectomy: Admission calcium level is noted normal although ionized calcium has been requested but this is a send out, will attempt to obtain records. * hairy Cell Leukemia: Patient following w/ Dr. Andrade Dx 1982 s/p splenectomy w/ relapse 1984 with Tx Pentastatin/ECOG protocol w/ remission achieved, encourage continued outpatient follow-up as previously arranged. * Chronic macrocytic anemia/iron deficiency anemia: Admission hemoglobin 11.7, MCV 98.9, baseline hemoglobin appears 11-12, stable, continue to trend, continue supplementation. * Chronic systolic CHF: No recent echocardiogram in the system, last noted EF 35% from remote echo with catheterization 2004 with nonobstructive disease, continue judicious hydration given his history, continue aspirin, statin, cautiously losartan as noted, not on beta-lynn therapy with it listed in the allergy section but unclear reaction. * Alzheimer's disease with associated dementia, no behavioral disturbance history: Complicates presentation, maintain on fall precautions, continue patient home memantine and donepezil regimen, PT/OT/case management consultation for discharge planning. * Anxiety and depression: We will continue patient home paroxetine regimen. * Diabetes mellitus type II: Hold oral home regimen, ADA diet, accu checks w/ ISS.Hypertension: Continue home regimen including losartan cautiously with hold if renal function worsens as noted, PRN hydralazine. \ * Hyperlipidemia: Continue patient home statin therapy. * Gout: Continue patient home allopurinol regimen. * BPH: We will continue patient home finasteride, doxazosin home regimen. DVT prophylaxis: Lovenox. CODE status: Full code Disposition: to SNF pending insurance authorization. Medications at Discharge Home Medications atorvastatin 10 mg tablet 10 mg PO QHS CHOLESTEROL 11/20/15 doxazosin 1 mg tablet 1 mg PO QHS prostate 11/20/15 metformin 500 mg tablet 500 mg PO BIDCM DM 11/20/15 donepezil 5 mg tablet 10 mg PO QHS memory 11/28/17 paroxetine HCl 10 mg tablet 10 mg PO DAILY anxiety 11/28/17 allopurinol 300 mg tablet (Zyloprim) 300 mg PO DAILY GOUT 04/30/18 memantine 5 mg tablet 10 mg PO BID memory 05/26/21 acetaminophen 500 mg tablet 500 mg PO Q6H PRN Pain 05/28/21 finasteride 5 mg tablet 5 mg PO DAILY 07/01/21 albuterol sulfate 2.5 mg/3 mL (0.083 %) solution for nebulization 2.5 mg (3 mL) inhalation Q2H PRN PRN SOB/Wheezing #0 mL 07/14/21 losartan 25 mg tablet 50 mg PO DAILY heart #0 tabs 07/14/21 polysaccharide iron complex 150 mg iron capsule (Ferrex) 150 mg PO DAILY #90 caps 05/17/22 calcium carbonate-vitamin D3 1 tab PO/SL TID supplement 03/05/23 ibuprofen 200 mg capsule 200 mg PO Q4H PRN Pain 03/05/23 prednisone 20 mg tablet 40 mg PO BREAKFAST 3 days #0 tabs 03/08/23 sennosides 8.6 mg-docusate sodium 50 mg tablet (Stool Softener-Stimulant Laxative) 2 tab PO BID PRN PRN Constipation #0 tabs 03/08/23 Hospital Course Operations None Procedures None Summary of Care Provided Minutes Spent on Discharge: 28 Weight / BMI Weight Weight: 60.4 kg Body Mass Index (BMI) 22.7 ABG / Lab / Microbiology Data Result Diagrams: 03/06/23 06:05 03/06/23 06:05 Laboratory: Laboratory Results - last 24 hr 03/05/23 22:42: Ionized Calcium 4.9 03/07/23 16:17: POC Glucose 140 H 03/07/23 20:43: POC Glucose 274 H 03/08/23 06:29: POC Glucose 108 H 03/08/23 11:37: POC Glucose 127 H Meaningful Use Info Meaningful Use Diagnoses (Choose all that apply): None applicable Discharge Plan Admission Admit Date/Time: 03/06/23 00:30 Primary Reason for Your Visit: debility. right knee effusion. Attending Provider: James Griffiths Primary Care Provider: Antony Espinoza Consulting Providers: Paty Morgan Discharge Orders/Prescriptions Prescriptions: New prednisone 20 mg Tablet 40 mg PO BREAKFAST 3 Days Qty: 0 0RF sennosides-docusate sodium [Stool Softener-Stimulant Laxat] 8.6-50 mg Tablet 2 tab PO BID PRN PRN (Reason: Constipation) Qty: 0 0RF Continued polysaccharide iron complex [Ferrex 150] 150 mg iron capsule 150 mg PO DAILY Qty: 90 3RF metformin 500 MG tablet 500 mg PO BIDCM Label Comments: DIABETES atorvastatin 10 MG tablet 10 mg PO QHS Label Comments: high cholesterol doxazosin 1 MG tablet 1 mg PO QHS Label Comments: heart allopurinol [Zyloprim] 300 MG tablet 300 mg PO DAILY paroxetine HCl 10 MG tablet 10 mg PO DAILY donepezil 5 MG tablet 10 mg PO QHS Label Comments: TAKE 1 TABLET BY MOUTH DAILY AT BEDTIME. memantine 5 mg tablet 10 mg PO BID acetaminophen 500 mg Tablet 500 mg PO Q6H PRN (Reason: Pain) finasteride 5 mg Tablet 5 mg PO DAILY albuterol sulfate 2.5 mg /3 mL (0.083 %) Solution For Nebulization 2.5 mg inhalation Q2H PRN PRN (Reason: SOB/Wheezing) Qty: 0 0RF losartan 25 mg tablet 50 mg PO DAILY Qty: 0 0RF Label Comments: take 1 tablet by mouth once daily Rx Instructions: Hold for SBP less than 120 mmHg calcium carbonate-vitamin D3 1 tab PO/SL TID Rx Instructions: 500mg/5mcg (200 unit) per tablet ibuprofen 200 mg Capsule 200 mg PO Q4H PRN (Reason: Pain) Referrals / Follow Up: Antony Espinoza MD [Primary Care Provider] - Within 2 Weeks Disposition Disposition (needs filled in before D/C Order can be placed): Assisted Facility Charges/Coding Visit Charges Inpatient E&M: 75625 Disch Hosp 03/08/23 1414 <Electronically signed by James Griffiths DO> Cosigner Signature (if applicable): CC: Dr. James Griffiths DO; Dr. Antony Espinoza MD~ Signed [facility] Work Phone: 1(174) 547-190504-21-[address] Griffiths [facility] March 08, 2023 2:13pm Note Date/Time March 08, 2023 2:0 9pm [facility] Medical Records Department [address] [place] [address] Transfer to [facility] MR#: [id number] Acct: [id number] Name: MICHAEL MULLINS #:[id number] : 1940 82 From: James Griffiths DO PCP: Dr. Antony Espinoza MD Status:ADM I NO Certification of patient admission REQUIRED AT TIME OF ADMISSION. I CERTIFY THAT POST-HOSPITAL ECF SERVICES ARE REQUIRED TO BE GIVEN ON AN IN-PATIENT BASIS BECAUSE OF THE ABOVE NAMED PATIENT'S NEED FOR HALFWAY CARE ON A CONTINUING BASIS FOR THE CONDITION(S) FOR WHICH HE/SHE WAS RECEIVING IN-PATIENT HOSPITAL SERVICES PRIOR TO HIS/HER TRANSFER TO THE ECF. 03/08/23 1413<Electronically signed by James Griffiths DO> Diet Diet Order/Speech Therapy: 03/06/23 01:18 Diet: Consistent Carb - Calorie Controlled Food consistency:: Regular Liquid Consistency:: Regular/Thin How many daily calories?: 1800 calorie Wound(s) neck: Wound Type: Surgical Incision left lee: Wound Type: Abrasion Problem/Diagnosis (1) Generalized weakness: Status: Acute Code(s): R53.1 - Weakness Plan: Adult FTT with BL LE Weakness, Debility, no knee pain with right greater than left knee effusion noted: patient does appear to be dehydrated with mild renal insufficiency otherwise no severe electrolyte disturbances, TSH low, but fT4 WNLw PT/OT/case management consultation for discharge planning, maintain on fall precautions, will obtain BL knee plain films to be cautious, procalcitonin requested. (2) Effusion, right knee: Status: Acute Code(s): M25.461 - Effusion, right knee Plan: doubt septic arthritis nor gouty arthritis start prednisone burst. consider arthrocentesis if worse. 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 Chronic conditions: * CKD stage III, unclear subtype: Admission BUN/creatinine 34/1.64, baseline creatinine function noted previously primarily 0.9-1.2, will continue judicious hydration, repeat function in a.m., if worsening hold nephrotoxic regimen and would consider FeNa/renal US. * Recent Parathyroid surgery, questionable parathyroidectomy: Admission calcium level is noted normal although ionized calcium has been requested but this is a send out, will attempt to obtain records. * hairy Cell Leukemia: Patient following w/ Dr. Andrade Dx 1982 s/p splenectomy w/ relapse 1984 with Tx Pentastatin/ECOG protocol w/ remission achieved, encourage continued outpatient follow-up as previously arranged. * Chronic macrocytic anemia/iron deficiency anemia: Admission hemoglobin 11.7, MCV 98.9, baseline hemoglobin appears 11-12, stable, continue to trend, continue supplementation. * Chronic systolic CHF: No recent echocardiogram in the system, last noted EF 35% from remote echo with catheterization 2004 with nonobstructive disease, continue judicious hydration given his history, continue aspirin, statin, cautiously losartan as noted, not on beta-lynn therapy with it listed in the allergy section but unclear reaction. * Alzheimer's disease with associated dementia, no behavioral disturbance history: Complicates presentation, maintain on fall precautions, continue patient home memantine and donepezil regimen, PT/OT/case management consultation for discharge planning. * Anxiety and depression: We will continue patient home paroxetine regimen. * Diabetes mellitus type II: Hold oral home regimen, ADA diet, accu checks w/ ISS.Hypertension: Continue home regimen including losartan cautiously with hold if renal function worsens as noted, PRN hydralazine. \ * Hyperlipidemia: Continue patient home statin therapy. * Gout: Continue patient home allopurinol regimen. * BPH: We will continue patient home finasteride, doxazosin home regimen. DVT prophylaxis: Lovenox. CODE status: Full code Disposition: to SNF pending insurance authorization. Allergies/Procedures Done in Hospital Allergies gabapentin Allergy (Verified 03/05/23 19:16) tremors tremors metoprolol [From Toprol XL] Allergy (Verified 03/05/23 19:16) PT UNSURE OF REACTION ramipril [From Altace] Allergy (Verified 03/05/23 19:16) PT UNSURE OF REACTION Procedures: None Type of Care/Length of Stay Estimated LOS: Convalescent Care Less Than 30 days Type of Care Needed: Skilled Rehab Potential: Good Prognosis: Good Additional Orders/Day of Discharge Day of Discharge: 03/08/23 Discharge Plan Admission Admit Date/Time: 03/06/23 00:30 Primary Reason for Your Visit: debility. right knee effusion. Attending Provider: James Griffiths Primary Care Provider: Antony Espinoza Consulting Providers: Paty Morgan Discharge Orders/Prescriptions Prescriptions: New prednisone 20 mg Tablet 40 mg PO BREAKFAST 3 Days Qty: 0 0RF sennosides-docusate sodium [Stool Softener-Stimulant Laxat] 8.6-50 mg Tablet 2 tab PO BID PRN PRN (Reason: Constipation) Qty: 0 0RF Continued polysaccharide iron complex [Ferrex 150] 150 mg iron capsule 150 mg PO DAILY Qty: 90 3RF metformin 500 MG tablet 500 mg PO BIDCM Label Comments: DIABETES atorvastatin 10 MG tablet 10 mg PO QHS Label Comments: high cholesterol doxazosin 1 MG tablet 1 mg PO QHS Label Comments: heart allopurinol [Zyloprim] 300 MG tablet 300 mg PO DAILY paroxetine HCl 10 MG tablet 10 mg PO DAILY donepezil 5 MG tablet 10 mg PO QHS Label Comments: TAKE 1 TABLET BY MOUTH DAILY AT BEDTIME. memantine 5 mg tablet 10 mg PO BID acetaminophen 500 mg Tablet 500 mg PO Q6H PRN (Reason: Pain) finasteride 5 mg Tablet 5 mg PO DAILY albuterol sulfate 2.5 mg /3 mL (0.083 %) Solution For Nebulization 2.5 mg inhalation Q2H PRN PRN (Reason: SOB/Wheezing) Qty: 0 0RF losartan 25 mg tablet 50 mg PO DAILY Qty: 0 0RF Label Comments: take 1 tablet by mouth once daily Rx Instructions: Hold for SBP less than 120 mmHg calcium carbonate-vitamin D3 1 tab PO/SL TID Rx Instructions: 500mg/5mcg (200 unit) per tablet ibuprofen 200 mg Capsule 200 mg PO Q4H PRN (Reason: Pain) Referrals / Follow Up: Antony Espinoza MD [Primary Care Provider] - Within 2 Weeks Disposition Disposition (needs filled in before D/C Order can be placed): Assisted Facility 03/08/23 1413 <Electronically signed by James Griffiths DO> Cosigner Signature (if applicable): CC: Dr. Paty Morgan MD; Dr. Antony Espinoza MD ~ [facility] Work Phone: 1(558) 346-270104-21-[address] Griffiths [facility] March 08, 2023 1:08pm Note Date/Time March 08, 2023 7:1 6am [facility] Medical Records Department [address] [place] [address] Progress Note - Hospitalist 03/08/23 0713 MR#: [id number] Acct: [id number] Name: MICHAEL MULLINS Rep #:[id number] : 1940 82 From: James Griffiths DO PCP: Dr. Antony Espinoza MD Status:ADM I NO Location: SC3 [id number] Reason for Visit Reason for Visit: Diagnoses Effusion, right knee (03/06/23) Weakness (03/06/23) Subjective Subjective Feels well. No further right knee pain nor swelling. Objective Data Objective Data Vital Signs: Vital Signs Temp Pulse Resp BP Pulse Ox O2 Del Method 36.6 C 62 18 149/84 H 96 Room Air 03/08/23 06:30 03/08/23 06:30 03/08/23 06:30 03/08/23 06:30 03/08/23 06:30 03/08/23 06:30 Oxygen Delivery Method Room Air Weight: 60.4 kg Body Mass Index (BMI) 22.7 Intake & Output: Intake and Output for Last 24 Hours 03/06/23 03/07/23 03/08/23 23:59 23:59 23:59 Intake Total 2345 / 2345 Output Total 400 / 400 Balance 1944 / 1944 Lab / Micro Data Result Diagrams: 03/06/23 06:05 03/06/23 06:05 Labs: Laboratory Results - last 24 hr 03/05/23 22:42: Ionized Calcium 4.9 03/07/23 11:35: POC Glucose 151 H 03/07/23 16:17: POC Glucose 140 H 03/07/23 20:43: POC Glucose 274 H 03/08/23 06:29: POC Glucose 108 H Physical Exam Const alert and no apparent distress HEENT head/scalp atraumatic and moist oral mucous membranes Resp normal respiratory effort, no retractions, no use of accessory muscles and clearto auscultation bilaterally Cardio regular rate, regular rhythm, S1 normal heart sound and S2 normal heart sound GI normal to inspection, nondistended, normoactive bowel sounds, soft to palpation,non-tender and non-distended Assessment & Plan Assessment/Plan (1) Generalized weakness: PLAN: Adult FTT with BL LE Weakness, Debility, no knee pain with right greater than left knee effusion noted: patient does appear to be dehydrated with mild renal insufficiency otherwise no severe electrolyte disturbances, TSH low, but fT4 WNLw PT/OT/case management consultation for discharge planning, maintain on fall precautions, will obtain BL knee plain films to be cautious, procalcitonin requested. (2) Effusion, right knee: PLAN: doubt septic arthritis nor gouty arthritis start prednisone burst. consider arthrocentesis if worse. PLAN: Plan The patient is an 82 y/o M w/ PMHx: Alzheimer's disease, Hairy Cell Leukemia following w/ Dr. Lupe Olvera 1982, Chronic Systolic CHF, HTH, HLD Gout, Diabetes mellitus type II, BPH, Chronic anemia/iron deficiency anemia anxiety and Depression who presents to the [facility] ED on 03/06/23 with history of increasing fatigue, malaise with notable bilateral lower extremity weakness as well as bilateral knee pain reporting he did have recent unclear parathroid surgery but from description possible resection given inability to safely take care of himself and risk of fall prompted ED evaluation. Chronic conditions: * CKD stage III, unclear subtype: Admission BUN/creatinine 34/1.64, baseline creatinine function noted previously primarily 0.9-1.2, will continue judicious hydration, repeat function in a.m., if worsening hold nephrotoxic regimen and would consider FeNa/renal US. * Recent Parathyroid surgery, questionable parathyroidectomy: Admission calcium level is noted normal although ionized calcium has been requested but this is a send out, will attempt to obtain records. * hairy Cell Leukemia: Patient following w/ Dr. Lupe Olvera 1982 s/p splenectomy w/ relapse 1984 with Tx Pentastatin/ECOG protocol w/ remission achieved, encourage continued outpatient follow-up as previously arranged. * Chronic macrocytic anemia/iron deficiency anemia: Admission hemoglobin 11.7, MCV 98.9, baseline hemoglobin appears 11-12, stable, continue to trend, continue supplementation. * Chronic systolic CHF: No recent echocardiogram in the system, last noted EF 35% from remote echo with catheterization 2004 with nonobstructive disease, continue judicious hydration given his history, continue aspirin, statin, cautiously losartan as noted, not on beta-lynn therapy with it listed in the allergy section but unclear reaction. * Alzheimer's disease with associated dementia, no behavioral disturbance history: Complicates presentation, maintain on fall precautions, continue patient home memantine and donepezil regimen, PT/OT/case management consultation for discharge planning. * Anxiety and depression: We will continue patient home paroxetine regimen. * Diabetes mellitus type II: Hold oral home regimen, ADA diet, accu checks w/ ISS.Hypertension: Continue home regimen including losartan cautiously with hold if renal function worsens as noted, PRN hydralazine. \ * Hyperlipidemia: Continue patient home statin therapy. * Gout: Continue patient home allopurinol regimen. * BPH: We will continue patient home finasteride, doxazosin home regimen. DVT prophylaxis: Lovenox. CODE status: Full code Disposition: to SNF pending insurance authorization. Charges/Coding Visit Charges Inpatient E&M: 44514 Subs Hosp L1 03/08/23 1308 <Electronically signed by James Griffiths DO> Cosigner Signature (if applicable): CC: ~ Signed [facility] Work Phone: 1(786) 745-464204-20-[address] Griffiths [facility] March 07, 2023 11:58am Note Date/Time March 07, 2023 7:2 6am [facility] Medical Records Department [address] [place] [address] Progress Note - Hospitalist 03/07/23 0723 MR#: [id number] Acct: [id number] Name: MICHAEL MULLINS Rep #:[id number] : 1940 82 From: James Griffiths DO PCP: Dr. Antony Espinoza MD Status:ADM I NO Location: MS3 [id number] Reason for Visit Reason for Visit: Diagnoses Effusion, right knee (03/06/23) Weakness (03/06/23) Subjective Subjective Was able to work with therapy using a walker. Denies any current knee pain. Objective Data Objective Data Vital Signs: Vital Signs Temp Pulse Resp BP Pulse Ox O2 Del Method 36.7 C 70 18 135/80 H 95 Room Air 04/20/23 06:00 03/07/23 06:00 03/07/23 06:00 03/07/23 06:00 03/07/23 06:00 03/07/23 06:00 Oxygen Delivery Method Room Air Weight: 55.4 kg Body Mass Index (BMI) 20.8 Intake & Output: Intake and Output for Last 24 Hours 03/05/23 03/06/23 03/07/23 23:59 23:59 23:59 Intake Total 1000 / 1000 2345 / 2345 Output Total 400 / 400 Balance 1000 / 1000 1945 / 1945 Lab / Micro Data Result Diagrams: 03/06/23 06:05 03/06/23 06:05 Labs: Laboratory Results - last 24 hr 03/06/23 11:32: POC Glucose 114 H 03/06/23 16:15: POC Glucose 173 H 03/06/23 21:59: POC Glucose 172 H 03/07/23 06:09: POC Glucose 126 H Radiography Diagnostic Testing: Radiology Impression Knee X-Ray 03/06/23 10:05 IMPRESSION: Degenerative arthrosis. Electronically Signed: Missael Sterling MD at 10:39 EDT , Knee X-Ray 03/06/23 10:05 IMPRESSION: Degenerative arthrosis. Small joint effusion. Chondrocalcinosis. Electronically Signed: Missael Sterling MD at 10:38 EDT , Physical Exam Const alert and no apparent distress Resp normal respiratory effort, no retractions, no use of accessory muscles and clearto auscultation bilaterally Cardio regular rate, regular rhythm, S1 normal heart sound and S2 normal heart sound GI normal to inspection, nondistended, normoactive bowel sounds, soft to palpation,non-tender and non-distended Extremity normal to inspection Extremity Narrative: resolved effusion of right knee. Assessment & Plan Assessment/Plan (1) Generalized weakness: PLAN: Adult FTT with BL LE Weakness, Debility, no knee pain with right greater than left knee effusion noted: patient does appear to be dehydrated with mild renal insufficiency otherwise no severe electrolyte disturbances, TSH low, but fT4 WNLw PT/OT/case management consultation for discharge planning, maintain on fall precautions, will obtain BL knee plain films to be cautious, procalcitonin requested. (2) Effusion, right knee: PLAN: doubt septic arthritis nor gouty arthritis start prednisone burst. consider arthrocentesis if worse. PLAN: Plan The patient is an 82 y/o M w/ PMHx: Alzheimer's disease, Hairy Cell Leukemia following w/ Dr. Lupe Olvera 1982, Chronic Systolic CHF, HTH, HLD Gout, Diabetes mellitus type II, BPH, Chronic anemia/iron deficiency anemia anxiety and Depression who presents to the [facility] ED on 03/06/23 with history of increasing fatigue, malaise with notable bilateral lower extremity weakness as well as bilateral knee pain reporting he did have recent unclear parathroid surgery but from description possible resection given inability to safely take care of himself and risk of fall prompted ED evaluation. Chronic conditions: * CKD stage III, unclear subtype: Admission BUN/creatinine 34/1.64, baseline creatinine function noted previously primarily 0.9-1.2, will continue judicious hydration, repeat function in a.m., if worsening hold nephrotoxic regimen and would consider FeNa/renal US. * Recent Parathyroid surgery, questionable parathyroidectomy: Admission calcium level is noted normal although ionized calcium has been requested but this is a send out, will attempt to obtain records. * hairy Cell Leukemia: Patient following w/ Dr. Lupe Olvera 1982 s/p splenectomy w/ relapse 1984 with Tx Pentastatin/ECOG protocol w/ remission achieved, encourage continued outpatient follow-up as previously arranged. * Chronic macrocytic anemia/iron deficiency anemia: Admission hemoglobin 11.7, MCV 98.9, baseline hemoglobin appears 11-12, stable, continue to trend, continue supplementation. * Chronic systolic CHF: No recent echocardiogram in the system, last noted EF 35% from remote echo with catheterization 2004 with nonobstructive disease, continue judicious hydration given his history, continue aspirin, statin, cautiously losartan as noted, not on beta-lynn therapy with it listed in the allergy section but unclear reaction. * Alzheimer's disease with associated dementia, no behavioral disturbance history: Complicates presentation, maintain on fall precautions, continue patient home memantine and donepezil regimen, PT/OT/case management consultation for discharge planning. * Anxiety and depression: We will continue patient home paroxetine regimen. * Diabetes mellitus type II: Hold oral home regimen, ADA diet, accu checks w/ ISS.Hypertension: Continue home regimen including losartan cautiously with hold if renal function worsens as noted, PRN hydralazine. \ * Hyperlipidemia: Continue patient home statin therapy. * Gout: Continue patient home allopurinol regimen. * BPH: We will continue patient home finasteride, doxazosin home regimen. DVT prophylaxis: Lovenox. CODE status: Full code Disposition: to SNF pending insurance authorization. Charges/Coding Visit Charges Inpatient E&M: 00027 Subs Hosp L2 03/07/23 1158 <Electronically signed by James Griffiths DO> Cosigner Signature (if applicable): CC: ~ Signed [facility] Work Phone: 1(234) 674-925504-19-[address] Griffiths [facility] March 06, 2023 2:51pm Note Date/Time March 06, 2023 7:5 4am [facility] Medical Records Department [address] [place] [address] Progress Note - Hospitalist 03/06/23 0747 MR#: [id number] Acct: [id number] Name: MICHAEL MULLINS Rep #:[id number] : 1940 82 From: James Griffiths DO PCP: Dr. Antony Espinoza MD Status:ADM I NO Location: MS3 PN092-4 Reason for Visit Reason for Visit: Diagnoses Weakness (03/06/23) Subjective Subjective Pt had been weak with shuffling gait. Saturday, he got increasingly weak. Complains of bilateral knee pain. Objective Data Objective Data Vital Signs: Vital Signs Temp Pulse Resp BP Pulse Ox O2 Del Method 36.3 C L 66 18 156/79 H 95 Room Air 03/06/23 06:36 03/06/23 06:36 03/06/23 06:36 03/06/23 06:36 03/06/23 06:36 03/06/23 06:36 Oxygen Delivery Method Room Air Weight: 58.5 kg Body Mass Index (BMI) 22.0 Intake & Output: Intake and Output for Last 24 Hours 03/04/23 03/05/23 03/06/23 23:59 23:59 23:59 Intake Total 1000 / 1000 200 / 200 Output Total 200 / 200 Balance 1000 / 1000 0 / 0 Lab / Micro Data Result Diagrams: 03/06/23 06:05 03/06/23 06:05 Labs: Laboratory Results - last 24 hr 03/05/23 20:32: WBC 11.8 H, RBC 3.68 L, Hgb 11.7 L, Hct 36.4 L, MCV 98.9 H, MCH 31.8, MCHC 32.1, RDW Std Deviation 55.6 H, RDW Coeff of Eduarda 15.4 H, Plt Count 225, MPV 10.5, Immature Gran % (Auto) 0.300, Neut % (Auto) 75.4 H, Lymph % (Auto) 13.3 L, [place] % (Auto) 9.3, Eos % (Auto) 1.4, Baso % (Auto) 0.3, Absolute Neuts (auto) 8.9 H, Absolute Lymphs (auto) 1.56, Nucleated RBC % 0 03/05/23 20:32: Sodium 140, Potassium 4.5, Chloride 111 H, Carbon Dioxide 27.0, Anion Gap 2 L, BUN 34 H, Creatinine 1.64 H, Est GFR (MDRD) Af Amer 52 L, Est GFR(MDRD) Non-Af 43 L, BUN/Creatinine Ratio 20.7 H, Glucose 111 H, Calcium 9.2 03/05/23 21:01: Urine Color Yellow, Urine Clarity Clear, Urine pH 8.0, Ur Specific [place] 1.010, Urine Protein 100 H, Urine Glucose (UA) Normal, Urine Ketones Negative, Urine Occult Blood Negative, Urine Nitrite Negative, Urine Bilirubin Negative, Urine Urobilinogen 1 H, Ur Leukocyte Esterase 25 H, Urine RBC 0 SEEN, Urine WBC 0-5 SEEN, Ur Squamous Epith Cells 0 SEEN, Urine Bacteria RARE, Urine Mucus 0 SEEN 03/06/23 00:40: Phosphorus 2.5, Magnesium 1.7 03/06/23 00:40: Procalcitonin 0.09 03/06/23 03:00: COVID-19 ([facility]) Not Detected 03/06/23 06:05: WBC 12.0 H, RBC 3.38 L, Hgb 10.6 L, Hct 33.0 L, MCV 97.6 H, MCH 31.4, MCHC 32.1, RDW Std Deviation 54.5 H, RDW Coeff of Eduarda 15.2 H, Plt Count 226, MPV 11.1, Immature Gran % (Auto) 0.400, Neut % (Auto) 75.5 H, Lymph % (Auto) 13.3 L, [place] % (Auto) 9.7, Eos % (Auto) 0.8, Baso % (Auto) 0.3, Absolute Neuts (auto) 9.0 H, Absolute Lymphs (auto) 1.59, Nucleated RBC % 0 03/06/23 06:05: Sodium 140, Potassium 3.6, Chloride 113 H, Carbon Dioxide 27.0, Anion Gap 0 L, BUN 29 H, Creatinine 1.47 H, Estim Creat Clear Calc 33.16, Est GFR (MDRD) Af Amer 59 L, Est GFR (MDRD) Non-Af 49 L, BUN/Creatinine Ratio 19.7, Glucose 128 H, Calcium 8.6, Total Bilirubin 0.50, AST 65 H, ALT 31, Alkaline Phosphatase 93, Total Protein 6.1 L, Albumin 2.6 L, Globulin 3.5, Albumin/Globulin Ratio 0.7 L, TSH 0.26 L, Free T4 1.46 03/06/23 06:41: POC Glucose 125 H Radiography Diagnostic Testing: Radiology Impression Venous Duplex 03/05/23 22:14 IMPRESSION: No sonographic evidence of deep venous thrombosis. Electronically Signed: Roberth Diez MD at 23:40 EDT , Chest X-Ray 03/05/23 22:48 IMPRESSION: Hypoinflated study without radiographic evidence of acute cardiopulmonary disease. Electronically Signed: Roberth Diez MD at 23:14 EDT , Physical Exam Const alert and no apparent distress Resp normal respiratory effort, no retractions, no use of accessory muscles and clearto auscultation bilaterally Cardio regular rate, regular rhythm, S1 normal heart sound and S2 normal heart sound GI normal to inspection, nondistended, normoactive bowel sounds, soft to palpation,non-tender and non-distended Extremity Extremity Narrative: right knee effusion w/o warmth. minimal tenderness. Assessment & Plan Assessment/Plan (1) Generalized weakness: PLAN: Adult FTT with BL LE Weakness, Debility, no knee pain with right greater than left knee effusion noted: patient does appear to be dehydrated with mild renal insufficiency otherwise no severe electrolyte disturbances, TSH low, but fT4 WNLw PT/OT/case management consultation for discharge planning, maintain on fall precautions, will obtain BL knee plain films to be cautious, procalcitonin requested. (2) Effusion, right knee: PLAN: doubt septic arthritis nor gouty arthritis start prednisone burst. consider arthrocentesis if worse. PLAN: Plan The patient is an 82 y/o M w/ PMHx: Alzheimer's disease, Hairy Cell Leukemia following w/ Dr. Lupe Olvera 1982, Chronic Systolic CHF, HTH, HLD Gout, Diabetes mellitus type II, BPH, Chronic anemia/iron deficiency anemia anxiety and Depression who presents to the [facility] ED on 03/06/23 with history of increasing fatigue, malaise with notable bilateral lower extremity weakness as well as bilateral knee pain reporting he did have recent unclear parathroid surgery but from description possible resection given inability to safely take care of himself and risk of fall prompted ED evaluation. Chronic conditions: * CKD stage III, unclear subtype: Admission BUN/creatinine 34/1.64, baseline creatinine function noted previously primarily 0.9-1.2, will continue judicious hydration, repeat function in a.m., if worsening hold nephrotoxic regimen and would consider FeNa/renal US. * Recent Parathyroid surgery, questionable parathyroidectomy: Admission calcium level is noted normal although ionized calcium has been requested but this is a send out, will attempt to obtain records. * hairy Cell Leukemia: Patient following w/ Dr. Lupe Olvera 1982 s/p splenectomy w/ relapse 1984 with Tx Pentastatin/ECOG protocol w/ remission achieved, encourage continued outpatient follow-up as previously arranged. * Chronic macrocytic anemia/iron deficiency anemia: Admission hemoglobin 11.7, MCV 98.9, baseline hemoglobin appears 11-12, stable, continue to trend, continue supplementation. * Chronic systolic CHF: No recent echocardiogram in the system, last noted EF 35% from remote echo with catheterization 2004 with nonobstructive disease, continue judicious hydration given his history, continue aspirin, statin, cautiously losartan as noted, not on beta-lynn therapy with it listed in the allergy section but unclear reaction. * Alzheimer's disease with associated dementia, no behavioral disturbance history: Complicates presentation, maintain on fall precautions, continue patient home memantine and donepezil regimen, PT/OT/case management consultation for discharge planning. * Anxiety and depression: We will continue patient home paroxetine regimen. * Diabetes mellitus type II: Hold oral home regimen, ADA diet, accu checks w/ ISS.Hypertension: Continue home regimen including losartan cautiously with hold if renal function worsens as noted, PRN hydralazine. \ * Hyperlipidemia: Continue patient home statin therapy. * Gout: Continue patient home allopurinol regimen. * BPH: We will continue patient home finasteride, doxazosin home regimen. DVT prophylaxis: Lovenox. CODE status: Full code Charges/Coding Visit Charges Inpatient E&M: 92342 Subs Hosp L2 03/06/23 1451 <Electronically signed by James Griffiths DO> Cosigner Signature (if applicable): CC: ~ Signed [facility] Work Phone: 1(813) 696-697304-19-2023 Discharge summary [facility] March 06, 2023 5:18am Note Date/Time March 06, 2023 12: 26am [facility] Medical Records Department [address] [place] [id number] Emergency Department Summary 03/06/23 MR#: [id number] Acct: [id number] Name: SUSANNAMICHAEL Gena Rep #:[id number] : 1940 82 From: Christiano Eastman DO PCP: Dr. Antony Espinoza MD Status:ADM I NO Location: [place] [id number] HPI History of Present Illness Chief Complaint: Weakness Narrative Narrative: Patient is 82-year-old male from home with past medical history of hypertension diabetes BPH and congestive heart failure. According to patient and he hashad generalized weakness since COVID. However he underwent a parathyroid gland removal roughly 6 days ago and since that time has had increased weakness. Patient and state that he cannot get up on his own and once he does he just shuffles his legs in place and does not ambulate. The states that as they are at home alone they have no one who can help care for him and with his increased weakness and recent surgery brought him in for evaluation [facility] Medical History Alzheimer's disease Anxiety Benign prostate hyperplasia COVID-19 Degenerative disc disease, cervical DM2 (diabetes mellitus, type 2) Former smoker Gout Hairy cell leukemia Heart failure with reduced ejection fraction HTN (hypertension) Hyperlipidemia Left bundle branch block Mild cognitive impairment with memory loss Home Medications atorvastatin 10 mg tablet 10 mg PO QHS CHOLESTEROL 11/20/15 [History Last Taken 05/26/21 22:00] doxazosin 1 mg tablet 1 mg PO QHS prostate 11/20/15 [History Last Taken 05/26/21 22:00] metformin 500 mg tablet 500 mg PO BIDCM DM 11/20/15 [History Last Taken 05/27/21 08:00] donepezil 5 mg tablet 10 mg PO QHS memory 11/28/17 [History Last Taken 05/26/21 22:00] paroxetine HCl 10 mg tablet 10 mg PO DAILY anxiety 11/28/17 [History Last Taken 05/27/21 08:00] allopurinol 300 mg tablet (Zyloprim) 300 mg PO DAILY GOUT 04/30/18 [History Last Taken 05/27/21 08:00] memantine 5 mg tablet 10 mg PO BID memory 05/26/21 [History Last Taken 05/27/21 08:00] acetaminophen 500 mg tablet 500 mg PO Q6H PRN Pain 05/28/21 [History Last Taken 05/27/21 08:00] finasteride 5 mg tablet 5 mg PO DAILY 07/01/21 [History Last Taken Unknown] albuterol sulfate 2.5 mg/3 mL (0.083 %) solution for nebulization 2.5 mg (3 mL) inhalation Q2H PRN PRN SOB/Wheezing #0 mL 07/14/21 [Rx Last Taken Unknown] losartan 25 mg tablet 50 mg PO DAILY heart #0 tabs 07/14/21 [Rx Last Taken 05/27/21 08:00] polysaccharide iron complex 150 mg iron capsule (Ferrex) 150 mg PO DAILY #90 caps 05/17/22 [Rx Last Taken Unknown] calcium carbonate-vitamin D3 1 tab PO/SL TID supplement 03/05/23 [History Last Taken Unknown] ibuprofen 200 mg capsule 200 mg PO Q4H PRN Pain 03/05/23 [History Last Taken Unknown] Allergy/AdvReac Type Severity Reaction Status Date / Time gabapentin Allergy tremors Verified 03/05/23 19:16 metoprolol [From Toprol XL] Allergy PT UNSURE Verified 03/05/23 19:16 OF REACTION ramipril [From Altace] Allergy PT UNSURE Verified 03/05/23 19:16 OF REACTION Family History Mother Cancer Father Heart disease Hypertension Surgical History H/O total hip arthroplasty History of appendectomy Hx of splenectomy Social History household members: spouse Smoking Status: Former smoker alcohol intake: never substance use type: does not use ROS ROS ED Constitutional Constitutional ED: Denies chills or fever(s) Eyes Eyes: Denies change in vision ENT ENT ED: Denies sore throat Cardiovascular Cardiovascular: Denies chest pain Respiratory/Chest Respiratory/Chest: Denies cough or dyspnea Gastrointestinal Gastrointestinal: Denies abdominal pain, diarrhea, nausea or vomiting Genitourinary Genitourinary ED: Denies dysuria Musculoskeletal Musculoskeletal: Denies myalgias Integumentary Denies rash Neurologic Neurologic: Reports weakness; Denies headache(s) or paresthesias Hematologic/Lymphatic Hematologic/Lymphatic: Denies easy bleeding or easy bruising EXAM Physical Exam Const Vital Signs: 03/05/23 19:16 03/05/23 22:44 03/06/23 00:25 Temperature 98.9 F 98.9 F Temperature Source Temporal Temporal Pulse Rate 73 69 75 Respiratory Rate 18 15 15 Blood Pressure 153/74 H 153/74 H 158/78 H Blood Pressure Mean 100 100 104 Pulse Ox 97 91 95 Oxygen Delivery Method Room Air Room Air Room Air Positive well nourished and well developed General Appearance ED: well developed HEENT Reports dry mucous membranes HEENT Narrative: Mucous membranes are mildly dry and tacky consistent with dehydration. No airway edema or compromise and no signs of infection noted in the posterior pharynx Mouth ED: Yes dry mucous membranes Mouth: dry mucous membranes Eyes PERRL and EOMs intact bilaterally Neck supple Neck Narrative: No nuchal rigidity or meningeal signs present Chest Wall palpation of chest normal Resp normal respiratory effort and clear to auscultation bilaterally Resp Narrative: Breath sounds are diminished throughout but overall clear to auscultation with no signs of distress Cardio regular rate and regular rhythm Rate: other Other Details: Radial pulses are plus 2 out of 4 bilaterally are equal and symmetric GI normal to inspection, nondistended, normoactive bowel sounds, non-tender, non-distended and no masses GI Narrative: No voluntary guarding or rigidity no pulsatile mass Auscultation: normoactive bowel sounds Palpation: soft Back/Spine Back/Spine Narrative: No bony deformity or step-off of the cervical thoracic or lumbar spine no midline pain with palpation Extremity Extremity Narrative: .Bilateral lower extremities are neurovascularly intact. Patient has small effusions to the anterior aspect of both knees slightly greater on the right. However there is no overlying erythema or warmth no lymphangitic streaking no cellulitis or abscess formation noted. Negative Homans' sign bilaterally. Compartments are soft going against compartment syndrome and patient does have active range of motion of both knees going against septic joint Neuro oriented x3 and CN's II-XII intact bilaterally Neuro Narrative: No pronator drift no dysmetria no truncal ataxia. Strength is plus 5 out of 5 in the bilateral upper extremity. Strength is plus 5 out of 5 in the left lowerextremity and plus 4 out of 5 in the right. However patient reports pain with motion of the right leg and therefore weakness is related to pain not neurologicdysfunction Sensorium / Orientation: alert Psych mental status grossly normal Skin Skin Narrative: Skin turgor is increased Healing surgical wound to the anterior neck consistent recent parathyroid gland removal. Wound is clean dry and intact without secondary changes to suggest infection MDM MDM MDM Narrative Medical decision making narrative: Patient presented to the ER slightly hypertensive but otherwise with stable vitals and does have a history of hypertension. He reported generalized weakness making it difficult to ambulate and there is no focal neurologic deficit going against acute stroke so I felt no need to activate a stroke alert to perform a CT/CTA. With his recent surgery and mild swelling to both knees I didelect to perform a venous duplex to rule out DVT as a cause of his pain. Venousduplex was negative. Labs also show no signs of acute urinary tract infection or significant anemia or acute kidney injury as a cause of his progressive weakness. At this time the patient cannot ambulate despite hydration and therefore he is not safe for home as he is unable to walk. He was informed thathe may need placement in rehab or detention since he cannot ambulate and he is agreeable to this. The case was discussed with medicine on- call and they do agree to set the patient at this time based on his persistent weakness and inability to ambulate. History & Record Review Discussion w/independent historian: Patient and Significant other Lab Data Attestation: I reviewed the patient's lab results. Labs: Laboratory Results - last 24 hr 03/05/23 03/05/23 03/05/23 20:32 20:32 21:01 WBC 11.8 H RBC 3.68 L Hgb 11.7 L Hct 36.4 L MCV 98.9 H MCH 31.8 MCHC 32.1 RDW Std Deviation 55.6 H RDW Coeff of Eduarda 15.4 H Plt Count 225 MPV 10.5 Immature Gran % (Auto) 0.300 Neut % (Auto) 75.4 H Lymph % (Auto) 13.3 L [place] % (Auto) 9.3 Eos % (Auto) 1.4 Baso % (Auto) 0.3 Absolute Neuts (auto) 8.9 H Absolute Lymphs (auto) 1.56 Nucleated RBC % 0 Sodium 140 Potassium 4.5 Chloride 111 H Carbon Dioxide 27.0 Anion Gap 2 L BUN 34 H Creatinine 1.64 H Est GFR (MDRD) Af Amer 52 L Est GFR (MDRD) Non-Af 43 L BUN/Creatinine Ratio 20.7 H Glucose 111 H Calcium 9.2 Urine Color Yellow Urine Clarity Clear Urine pH 8.0 Ur Specific [place] 1.010 Urine Protein 100 H Urine Glucose (UA) Normal Urine Ketones Negative Urine Occult Blood Negative Urine Nitrite Negative Urine Bilirubin Negative Urine Urobilinogen 1 H Ur Leukocyte Esterase 25 H Urine RBC 0 SEEN Urine WBC 0-5 SEEN Ur Squamous Epith Cells 0 SEEN Urine Bacteria RARE Urine Mucus 0 SEEN Radiography Diagnostic Testing: Clinical Impression(s) from Imaging Studies Venous Duplex 03/05/23 22:14 IMPRESSION: No sonographic evidence of deep venous thrombosis. Electronically Signed: Roberth Diez MD at 23:40 EDT , Chest X-Ray 03/05/23 22:48 IMPRESSION: Hypoinflated study without radiographic evidence of acute cardiopulmonary disease. Electronically Signed: Roberth Diez MD at 23:14 EDT , Chest x-ray as interpreted by the emergency medicine physician reveals elevationof the left hemidiaphragm which is chronic in nature without acute infiltrate pneumothorax or pleural effusion Management Discussion w/another healthcare provider: Hospitalist Discharge Plan Dx/Rx/DC Orders Clinical Impression: Generalized weakness, Hypertension, Inability to walk Disposition Disposition: Acute Care Hospital [facility] Discharge Date/Time: 03/06/23 01:14 What to do if you have Problems For any increased pain, shortness of breath, bleeding, nausea or vomiting, chestpain, or any unexpected problems, contact your Primary Care Provider. Call [facility] ([phone]) or report to the closest Emergency Room. Call 911 if necessary. 03/06/23517 <Electronically signed by Christiano Eastman DO> Cosigner Signature (if applicable): CC: Dr. Antony Espinoza MD ~ Signed [facility] Work Phone: [phone]) 831-679304-19-2023 History and physical note Author Dr. Morgan [facility] March 06, 2023 1:05am Note Date/Time March 06, 2023 12: 37am [facility] Medical Records Department [address] [place] [address] History & Physical Exam 03/06/23 0024 MR#: [id number] Acct: [id number] Name: MICHAEL MULLINS Rep #:[id number] : 1940 82 From: Paty Morgan MD PCP: Dr. Antony Espinoza MD Status:ADM I NO Location: [facility] [id number] HPI - General General Date of Admission: 03/06/23 Date of Service: 03/06/23 Chief Complaint: Weakness, debility, BL knee pain. HPI Narrative The patient is an 82 y/o M w/ PMHx: Alzheimer's disease, Hairy Cell Leukemia following w/ Dr. Andrade Dx 1982, Chronic Systolic CHF (EF 35%, following w/ Dr. Wells, s/p cath 2004), HTH, HLD Gout, Diabetes mellitus type II, BPH, Chronic anemia/iron deficiency anemia anxiety and Depression who presents to the [facility] ED on 03/06/23 with history of increasing fatigue, malaise with notable bilateral lower extremity weakness as well as bilateral knee pain reporting he did have recent unclear parathroid surgery but from description possible resection given inability to safely take care of himself and risk of fall prompted ED evaluation. He notes bilateral knee discomfort, right worse than left seem to come on more notably immediately after surgery approximately week prior, worse with activity attempts, also notes discomfort with palpation primarily the rightknee. He notes the discomfort is more of a dull aching throb but more sharp with activity attempt and also with palpation primarily to the right knee is noted. Work-up in the ED included T98.9, heart rate 73, BP 153/74, respiratory rate 18, initially 97% on room air however most recent noted 91% on room air, CBC with WC 11.8, hemoglobin 11.7, MCV 98.9, platelet 225 with left shift, BMP with chloride 111, BUN/creatinine 24/1.64, glucose 111, calcium 9.2, urinalysis unremarkable, bilateral lower extremity duplex ultrasound negative, chest x-ray with no acute cardiopulmonary findings although low lung volumes noted and persistent elevation left hemidiaphragm. In the ED patient ministered 1 L normal saline bolus. [facility] Medical History Alzheimer's disease Anxiety Benign prostate hyperplasia COVID-19 Degenerative disc disease, cervical DM2 (diabetes mellitus, type 2) Former smoker Gout Hairy cell leukemia Heart failure with reduced ejection fraction HTN (hypertension) Hyperlipidemia Left bundle branch block Mild cognitive impairment with memory loss Home Medications atorvastatin 10 mg tablet 10 mg PO QHS CHOLESTEROL 11/20/15 [History Last Taken 05/26/21 22:00] doxazosin 1 mg tablet 1 mg PO QHS prostate 11/20/15 [History Last Taken 05/26/21 22:00] metformin 500 mg tablet 500 mg PO BIDCM DM 11/20/15 [History Last Taken 05/27/21 08:00] donepezil 5 mg tablet 10 mg PO QHS memory 11/28/17 [History Last Taken 05/26/21 22:00] paroxetine HCl 10 mg tablet 10 mg PO DAILY anxiety 11/28/17 [History Last Taken 05/27/21 08:00] allopurinol 300 mg tablet (Zyloprim) 300 mg PO DAILY GOUT 04/30/18 [History Last Taken 05/27/21 08:00] memantine 5 mg tablet 10 mg PO BID memory 05/26/21 [History Last Taken 05/27/21 08:00] acetaminophen 500 mg tablet 500 mg PO Q6H PRN Pain 05/28/21 [History Last Taken 05/27/21 08:00] finasteride 5 mg tablet 5 mg PO DAILY 07/01/21 [History Last Taken Unknown] albuterol sulfate 2.5 mg/3 mL (0.083 %) solution for nebulization 2.5 mg (3 mL) inhalation Q2H PRN PRN SOB/Wheezing #0 mL 07/14/21 [Rx Last Taken Unknown] losartan 25 mg tablet 50 mg PO DAILY heart #0 tabs 07/14/21 [Rx Last Taken 05/27/21 08:00] polysaccharide iron complex 150 mg iron capsule (Ferrex) 150 mg PO DAILY #90 caps 05/17/22 [Rx Last Taken Unknown] calcium carbonate-vitamin D3 1 tab PO/SL TID supplement 03/05/23 [History Last Taken Unknown] ibuprofen 200 mg capsule 200 mg PO Q4H PRN Pain 03/05/23 [History Last Taken Unknown] Allergy/AdvReac Type Severity Reaction Status Date / Time gabapentin Allergy tremors Verified 03/05/23 19:16 metoprolol [From Toprol XL] Allergy PT UNSURE Verified 03/05/23 19:16 OF REACTION ramipril [From Altace] Allergy PT UNSURE Verified 03/05/23 19:16 OF REACTION Family History Mother Cancer Father Heart disease Hypertension Surgical History H/O total hip arthroplasty History of appendectomy Hx of splenectomy Social History household members: spouse Smoking Status: Former smoker alcohol intake: never substance use type: does not use ROS ROS Narrative Admission Review of Systems: CONSTITUTIONAL: No weight loss, fever, chills, + weakness or fatigue. HEENT: Eyes: No visual loss, blurred vision, double vision or yellow sclerae. Ears, Nose, Throat: No hearing loss, sneezing, congestion, runny nose or sore throat. SKIN: No rash or itching, lesions, wounds. CARDIOVASCULAR: No chest pain, chest pressure or chest discomfort, palpitations,edema, orthopnea, syncopal events. RESPIRATORY: No shortness of breath, cough or sputum, wheezing, hemoptysis. GASTROINTESTINAL: No anorexia, nausea, vomiting or diarrhea, abdominal pain, melena, BRBPR. GENITOURINARY: + Chronic urinary frequency with BPH. No dysuria, urgency or retention. NEUROLOGICAL: + Gait debility, bilateral lower extremity weakness, knee pain associated, underlying Alzheimer's dementia with memory impairment, no headache,dizziness, syncope, paralysis, ataxia, numbness or tingling in the extremities, focal weakness, change in bowel or bladder control, seizure. MUSCULOSKELETAL: + muscle, back pain, joint pain or stiffness. HEMATOLOGIC: + anemia, bleeding or bruising. LYMPHATICS: No enlarged nodes. No history of splenectomy. PSYCHIATRIC: + history of depression or anxiety. ENDOCRINOLOGIC: No reports of sweating, cold or heat intolerance. No polyuria orpolydipsia. ALLERGIES: No history of asthma, hives, eczema or rhinitis. Vital Signs Vital Signs Vital Signs: 03/05/23 19:16 03/05/23 22:44 Temperature 98.9 F Temperature Source Temporal Pulse Rate 73 69 Respiratory Rate 18 15 Blood Pressure 153/74 H 153/74 H Blood Pressure Mean 100 100 Pulse Ox 97 91 Oxygen Delivery Method Room Air Room Air Weight Weight: 132 lb 7.965 oz Body Mass Index (BMI) 20.7 Physical Exam Narrative Physical Examination: General: Awake, alert, oriented to self, place and recent events, remains cooperative, seated upright in the ED bed, fatigued but no acute distress. Skin: Normal color, normal turgor, no icterus, no cyanosis, well-healing incision along the throat status post suspected parathyroidectomy. HEENT: AT/NC, EOMI, PERRLA, mildly dry MM, no carotid bruits or JVD noted, see skin. Lungs: Mild diminished, greater bases, proper effort, no rales, ronchi or wheezing. Heart: Currently regular rate and rhythm; no gallop, rub audible. Abdomen: Soft, NTTP, ND, normal BS, no HSM. Extremities: No cyanosis, no clubbing, no significant peripheral edema but patient does have bilateral knee effusions, right greater than left with some discomfort with palpation to the right knee. Neurological: Patient awake, alert, oriented as noted, cognitive function suspect baseline intact with underlying history of dementia with memory impairment; pupils equally reactive to light and accommodation, cranial nerves grossly normal, moving all 4 extremities although limited especially right knee secondary to discomfort with activity attempts, no specific focal deficits, strength accordingly moderately to severely global decreased. Psychiatric: Affect appears mildly fatigued otherwise normal, no acute evidence of depressive or anxiety feelings. Results Lab / Micro Data Result Diagrams: 03/05/23 20:32 03/05/23 20:32 Labs: Laboratory Results - last 24 hr 03/05/23 20:32: WBC 11.8 H, RBC 3.68 L, Hgb 11.7 L, Hct 36.4 L, MCV 98.9 H, MCH 31.8, MCHC 32.1, RDW Std Deviation 55.6 H, RDW Coeff of Eduarda 15.4 H, Plt Count 225, MPV 10.5, Immature Gran % (Auto) 0.300, Neut % (Auto) 75.4 H, Lymph % (Auto) 13.3 L, [place] % (Auto) 9.3, Eos % (Auto) 1.4, Baso % (Auto) 0.3, Absolute Neuts (auto) 8.9 H, Absolute Lymphs (auto) 1.56, Nucleated RBC % 0 03/05/23 20:32: Sodium 140, Potassium 4.5, Chloride 111 H, Carbon Dioxide 27.0, Anion Gap 2 L, BUN 34 H, Creatinine 1.64 H, Est GFR (MDRD) Af Amer 52 L, Est GFR(MDRD) Non-Af 43 L, BUN/Creatinine Ratio 20.7 H, Glucose 111 H, Calcium 9.2 03/05/23 21:01: Urine Color Yellow, Urine Clarity Clear, Urine pH 8.0, Ur Specific [place] 1.010, Urine Protein 100 H, Urine Glucose (UA) Normal, Urine Ketones Negative, Urine Occult Blood Negative, Urine Nitrite Negative, Urine Bilirubin Negative, Urine Urobilinogen 1 H, Ur Leukocyte Esterase 25 H, Urine RBC 0 SEEN, Urine WBC 0-5 SEEN, Ur Squamous Epith Cells 0 SEEN, Urine Bacteria RARE, Urine Mucus 0 SEEN Radiology Impression Venous Duplex 03/05/23 22:14 IMPRESSION: No sonographic evidence of deep venous thrombosis. Electronically Signed: Roberth Diez MD at 23:40 EDT , Chest X-Ray 03/05/23 22:48 IMPRESSION: Hypoinflated study without radiographic evidence of acute cardiopulmonary disease. Electronically Signed: Roberth Diez MD at 23:14 EDT , Assessment & Plan Assessment/Plan (1) Generalized weakness: PLAN: 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 #1. Adult FTT with BL LE Weakness, Debility, no knee pain with right greater than left knee effusion noted: Will admit to [place], patient calcium level is normalalthough ionized calcium has been requested but this is a send out, patient doesappear to be dehydrated with mild renal insufficiency otherwise no severe electrolyte disturbances, will obtain TSH/free T4 to be cautious, maintain on fall precautions, continue judicious IV fluids, pain regimen for bilateral knee discomfort, PT/OT/case management consultation for discharge planning, maintain on fall precautions, will obtain BL knee plain films to be cautious, procalcitonin requested. Patient does have bilateral effusion, right greater than left thus pending response to the above- noted evaluation and treatments could certainly consider orthopedic surgery consultation for aspiration. #2. Acute renal insufficiency on CKD stage III, unclear subtype: Admission BUN/creatinine 34/1.64, baseline creatinine function noted previously primarily 0.9-1.2, will continue judicious hydration, repeat function in a.m., if worsening hold nephrotoxic regimen and would consider FeNa/renal US. #3. Recent Parathyroid surgery, questionable parathyroidectomy: Admission calcium level is noted normal although ionized calcium has been requested but this is a send out, will attempt to obtain records. #4. Hairy Cell Leukemia: Patient following w/ Dr. Andrade Dx 1982 s/p splenectomy w/ relapse 1984 with Tx Pentastatin/ECOG protocol w/ remission achieved, encourage continued outpatient follow-up as previously arranged. #5. Chronic macrocytic anemia/iron deficiency anemia: Admission hemoglobin 11.7, MCV 98.9, baseline hemoglobin appears 11-12, stable, continue to trend, continue supplementation. #6. Chronic systolic CHF: No recent echocardiogram in the system, last noted EF35% from remote echo with catheterization 2004 with nonobstructive disease, continue judicious hydration given his history, continue aspirin, statin, cautiously losartan as noted, not on beta-lynn therapy with it listed in the allergy section but unclear reaction. #7. Alzheimer's disease with associated dementia, no behavioral disturbance history: Complicates presentation, maintain on fall precautions, continue patient home memantine and donepezil regimen, PT/OT/case management consultationfor discharge planning. #8. Anxiety and depression: We will continue patient home paroxetine regimen. #9. Diabetes mellitus type II: Hold oral home regimen, ADA diet, accu checks w/ISS. #10. Hypertension: Continue home regimen including losartan cautiously with hold if renal function worsens as noted, PRN hydralazine. #11. Hyperlipidemia: Continue patient home statin therapy. #12. Gout: Continue patient home allopurinol regimen. #13. BPH: We will continue patient home finasteride, doxazosin home regimen. #14. DVT prophylaxis: Lovenox. #15. CODE status: Patient AIDAN is his and living will is currently in place. Discussed CODE status at length including difference between FULL code, DNR-CCA and DNR-CC status. Following discussions about the differences in these status, requested Full Code status. Advanced Care Planning Face to Face Time: 16minutes. Admission Evaluation Time spent evaluating chart, patient history, patient evaluation, care planning and discussion with specialists: 55 minutes. Charges/Coding Visit Charges Inpatient E&M: 38394 Init Hosp L2 Procedures Hospitalists Procedures: 39332 Advncd Care Plan 30 Min 03/06/23 0105 <Electronically signed by Paty Mrogan MD> Cosigner Signature (if applicable): CC: Dr. Paty Morgan MD; Dr. Antony Espinoza MD~ Signed [facility] Work Phone: 1(281) 946-741604-13-2023 NoteHNO ID: [id number] Author: Cliff Castro MD Service: Endocrine Surgery Author Type: Resident Type: Progress Notes Filed: 02/28/2023 6:55 AM Note Text: ENDOCRINE SURGERY PROGRESS NOTE NAME: Michael Mullins February 28, 2023 6:29 AM 1 Day Post-Op AANDP: Michael Mullins is a 82 year old male s/p parathyroidectomy. - Neuro: prn pain control, tylenol/ibuprofen - Cardiopulm: HDS, pulse-ox, monitor for difficulty breathing, cepacol/chloraseptic for sore throat - FEN/GI: Regular diet. - : Voiding - ID: ABX: none indicated - Heme: monitor for signs of hematoma - Endo: monitor for tetany/tingling/signs of hypocalcemia, tid calcium carbonate/vitamin D and prn Tums for numbness. - DVT ppx: SCDs only - Dispo: Stable for discharge today Discussed with Dr. Munoz. S: No acute events since OR. No perioral numbness/tingling. No hoarseness/difficulty swallowing. No difficulty breathing/chest pain. On exam: BP 148/64 Pulse 65 Temp 36.5 ?C (97.7 ?F) (Oral) Resp 18 Ht 160 cm (5' 3) Wt 52.9 kg (116 lb 10 oz) SpO2 95% BMI 20.66 kg/m? Gen: NAD CV: extremities warm and well perfused, pulse regular Pulm: no increased work of breathing on room air Neck incision clean/dry/intact, no ecchymosis/signs of swelling Current Facility-Administered Medications Medication Dose Route Frequency Provider Last Rate Last Admin benzocaine-menthol 1 Lozenge (CHLORASEPTIC) 1 Lozenge MUCOUS MEMBRANE (TOPICAL MOUTH AND THROAT) q 2 H PRN Karyna Reeves Jr., MD phenol 1 Gratis (CHLORASEPTIC) 1 Gratis MUCOUS MEMBRANE (TOPICAL MOUTH AND THROAT) q 2 H PRN Karyna Reeves Jr., MD ibuprofen 600 mg tab(s) (MOTRIN) 600 mg ORAL q 6 H PRN Karyna Reeves Jr., MD acetaminophen 500 mg tab(s) (TYLENOL) 500 mg ORAL q 4 H PRN Karyna Reeves Jr., MD 500 mg at 02/27/232017 ipwcofa-bdpuiikts-kavhuaa D3 500 mg-5 mcg (200 unit) 1 tablet 1 tablet ORAL TID Karyna Reeves Jr., MD 1 tablet at 02/27/232006 calcium carbonate 500 mg chewable tab(s) (TUMS) 500 mg ORAL q 1 H PRN Karyna Reeves Jr., MD ondansetron (PF) 4 mg injection (ZOFRAN) 4 mg INTRAVENOUS q 6 H PRN Karyna Reeves Jr., MD NaCl 0.9% iv flush bag 20 mL INTRAVENOUS PRN Karyna Reeves Jr., MD NaCl 0.9% iv infusion 75 mL/hr INTRAVENOUS CONTINUOUS Karyna Reeves Jr., MD memantine 10 mg tab(s) (NAMENDA) 10 mg ORAL DAILY Karyna Reeves Jr., MD 10 mg at 02/27/232005 metFORMIN 500 mg tab(s) (GLUCOPHAGE) 500 mg ORAL BID w MEALS Karyna Reeves Jr., MD 500 mg at 02/27/23 2007 PARoxetine 10 mg tab(s) (PAXIL) 10 mg ORAL DAILY Karyna Reeves Jr., MD donepezil 10 mg tab(s) (ARICEPT) 10 mg ORAL AT BEDTIME Karyna Reeves Jr., MD 10 mg at 02/27/23 2007 losartan 50 mg tab(s) (COZAAR) 50 mg ORAL DAILY Karyna Reeves Jr., MD Date 02/27/23 07 - 02/28/23 0659 02/28/23 07 - 03/01/23 0659 Shift 6417-0683 4828-5944 5548-3556 24 Hour Total 0713-3247 0903-5192 4713-8550 24 Hour Total INTAKE IV 1400 1400 Volume (mL) (NaCl 0.9% iv infusion) 1400 1400 Shift Total 1400 1400 OUTPUT Blood 10 10 Estimated Blood loss 10 10 Shift Total 10 10 Weight (kg) 52.9 52.9 52.9 52.9 52.9 52.9 52.9 52.9 Recent Labs 02/28/23 0437 CA 9.3 Calcium, Total Date Value Ref Range Status 02/28/2023 9.3 8.5 - 10.2 mg/dL Final TSH Date Value Ref Range Status 02/25/2001 0.469 0.400 - 5.500 uU/mL Final PTH, Intact Date Value Ref Range Status 02/28/2023 11 (L) 15 - 65 pg/mL Final *A review of daily goals, interventions, and plan of care with the multidisciplinary team and patient has been conducted. The patient?s concerns have been addressed and he/she agrees to proceed with today?s plan of care. Cliff Castro MD General Surgery [id number] Health [id number] NoteHNO ID: [id number] Author: Karyna Reeves Jr., MD Service: ? Author Type: Physician Type: Progress Notes Filed: 02/27/2023 4:31 PM Note Text: ENDOCRINE SURGERY PROGRESS NOTE NAME: Michael Mullins February 27, 2023 4:30 PM Day of Surgery AANDP: Michael Mullins is a 82 year old male s/p parathyroidectomy. - Neuro: prn pain control, tylenol/ibuprofen - Cardiopulm: HDS, pulse-ox, monitor for difficulty breathing, cepacol/chloraseptic for sore throat - FEN/GI: Regular diet. AM Labs. - : Voiding - ID: ABX: none indicated - Heme: monitor for signs of hematoma - Endo: monitor for tetany/tingling/signs of hypocalcemia, 500 mg tid calcium carbonate/vitamin D and prn Tums for numbness - DVT ppx: SCDs only - Dispo: Anticipate discharge in am. Discussed with Dr. Munoz. S: No acute events since OR. No perioral numbness/tingling. No hoarseness/difficulty swallowing. No difficulty breathing/chest pain. On exam: BP 135/61 Pulse 79 Temp 36.3 ?C (97.3 ?F) (Oral) Resp 18 Ht 160 cm (5' 3) Wt 52.9 kg (116 lb 10 oz) SpO2 95% BMI 20.66 kg/m? Gen: NAD CV: extremities warm and well perfused, pulse regular Pulm: no increased work of breathing on room air Neck incision clean/dry/intact, no ecchymosis/signs of swelling Current Facility-Administered Medications Medication Dose Route Frequency Provider Last Rate Last Admin benzocaine-menthol 1 Lozenge (CHLORASEPTIC) 1 Lozenge MUCOUS MEMBRANE (TOPICAL MOUTH AND THROAT) q 2 H PRN Karyna Reeves Jr., MD phenol 1 Gratis (CHLORASEPTIC) 1 Gratis MUCOUS MEMBRANE (TOPICAL MOUTH AND THROAT) q 2 H PRN Karyna Reeves Jr., MD ibuprofen 600 mg tab(s) (MOTRIN) 600 mg ORAL q 6 H PRN Karyna Reeves Jr., MD acetaminophen 500 mg tab(s) (TYLENOL) 500 mg ORAL q 4 H PRN Karyna Reeves Jr., MD 500 mg at 02/27/23 1138 frvzmii-zxaiovytf-qvxrfrr D3 500 mg-5 mcg (200 unit) 1 tablet 1 tablet ORAL TID Karyna Reeves Jr., MD 1 tablet at 02/27/23 1323 calcium carbonate 500 mg chewable tab(s) (TUMS) 500 mg ORAL q 1 H PRN Karyna Reeves Jr., MD ondansetron (PF) 4 mg injection (ZOFRAN) 4 mg INTRAVENOUS q 6 H PRN Karyna Reeves Jr., MD NaCl 0.9% iv flush bag 20 mL INTRAVENOUS PRN Karyna Reeves Jr., MD NaCl 0.9% iv infusion 75 mL/hr INTRAVENOUS CONTINUOUS Karyna Reeves Jr., MD memantine 10 mg tab(s) (NAMENDA) 10 mg ORAL DAILY Karyna Reeves Jr., MD metFORMIN 500 mg tab(s) (GLUCOPHAGE) 500 mg ORAL BID w MEALS Karyna Reeves Jr., MD PARoxetine 10 mg tab(s) (PAXIL) 10 mg ORAL DAILY Karyna Reeves Jr., MD donepezil 10 mg tab(s) (ARICEPT) 10 mg ORAL AT BEDTIME Karyna Reeves Jr., MD losartan 50 mg tab(s) (COZAAR) 50 mg ORAL DAILY Karyna Reeves Jr., MD Date 02/26/23 1500 - 02/27/23 0659(Not Admitted) 02/27/23 0700 - 02/28/23 0659 Shift 9719-0285 7036-9445 24 Hour Total 4455-5844 2115-4441 8163-5594 24 Hour Total INTAKE IV 1400 1400 Volume (mL) (NaCl 0.9% iv infusion) 1400 1400 Shift Total 1400 1400 OUTPUT Blood 10 10 Estimated Blood loss 10 10 Shift Total 10 10 Weight (kg) 52.9 52.9 52.9 52.9 Calcium, Total Date Value Ref Range Status 02/15/2023 10.4 (H) 8.5 - 10.2 mg/dL Final TSH Date Value Ref Range Status 02/25/2001 0.469 0.400 - 5.500 uU/mL Final PTH, Intact Date Value Ref Range Status 11/15/2022 87 (H) 15 - 65 pg/mL Final *A review of daily goals, interventions, and plan of care with the multidisciplinary team and patient has been conducted. The patient?s concerns have been addressed and he/she agrees to proceed with today?s plan of care. Karyna reeves Jr, MD Clinical Associate [facility]2023 NoteHNO ID: [id number] Author: GRACY Frausto Service: ? Author Type: Computer Science Instructor Type: Anesthesia Procedure Notes Filed: 02/27/2023 8:08 AM Note Text: ANESTHESIOLOGY PROCEDURE NOTE Airway General Information Procedure Start Time/Medication Administration: 02/27/2023 7:43 AM Patient location during procedure: OR Timeout Performed Pre-procedure: timeout performed Consent Obtained: Yes Patient identity confirmed: arm band, care call or contact centre team leader and patient Staffing CAA: GRACY Frausto Indications and Patient Condition Indications for airway management: anesthesia Preoxygenated: yes anesthesia circuit Method: asleep Cricoid Pressure: No Manual In-Line Stabilization: No Difficult Mask: No Final Airway Details Final airway type: endotracheal airway Final Endotracheal Airway: ETT (nerveanna) Cuffed: yes Successful intubation technique: video laryngoscopy Devices used: Pylba Endotracheal tube insertion site: oral Blade size: #4 ETT size (mm): 8.0 Measurement (cm): 22 Placement verified by: capnometry Cormack-Lehane Classification: grade I - full view of glottis Number of attempts at approach: 1 Failed airway: no Unrecognized esophageal intubation: no Airway not difficult SIGNATURE: GRACY Frausto PATIENT NAME: Michael Mullins DATE: February 27, 2023 TIME: 8:06 AM CSN: [id number] Miscellaneous Notes* Telephone Encounter - Nicole Bass LPN - 02/21/2023 1:15 PM EDT Patient has been identified by name and date of : Yes Requested Prescriptions Pending Prescriptions Disp Refills memantine (NAMENDA) 10 mg tablet 90 tablet 3 Sig: Take 1 tablet by mouth twice daily. RX INSTRUCTIONS: Patient aware RX will be sent to pharmacy. No need to notify patient. Nicole Bass LPN [facility]23 Miscellaneous Notes* Telephone Encounter - Meño Ledbetter LPN - 02/08/2023 10:47 AM EDT Patient phones requesting refills as follows: Requested Prescriptions Pending Prescriptions Disp Refills allopurinol (ZYLOPRIM) 300 mg tablet 90 tablet 3 Sig: TAKE 1 TABLET BY MOUTH ONCE DAILY. FOR GOUT. SAMANTHA 11/15/22 NOV no upcoming appt Please review and advise. Meño Ledbetter LPN documented in this encounterProv[facility]03-15-2023 Miscellaneous Notes* Telephone Encounter - NAILA Sparks - 01/30/2023 4:01 PM EDT [facility] 11/15/22 with [facility] No appointment scheduled Please advise. Thank you. NAILA Sparks * Telephone Encounter - Vera Hurtado - 01/30/2023 3:30 PM EDT Patient has been identified by name and date of : Yes Requested Prescriptions Pending Prescriptions Disp Refills metFORMIN (GLUCOPHAGE) 500 mg tablet 180 tablet 3 Sig: Take 1 tablet by mouth twice daily with meals. RX INSTRUCTIONS: Patient aware RX will be sent to pharmacy. No need to notify patient. [facility] this encounterProv[facility]02-09-[facility]23 History of Present illness Narrative* Blanche Munoz MD - 12/27/2022 11:40 AM EST Blanche Munoz M.D. Department of Endocrine Surgery Endocrin[place] [address] ENDOCRINE SURGERY NEW PATIENT VISIT NAME: Michael Mullins CLINIC NO: [id number] : 1940 History of Present Illness: Michael Mullins is a 82 year old male referred by Dr. Shanthi Rangel for evaluation of primary hyperparathyroidism with Ca 11.0 and PTH 80's. Hypercalcemia present intermittently since 2012. Patient c/o fatigue. Fractured RIGHT hip 3 years ago. DEXA and sestamibi today. He had severe COVID infection in June,, requiring prolonged ICU stay. He has been wheelchairbound since then due to severe muscle weakness and deconditioning. He c/o fatigue, memory problems. My findings and recommendations will be communicated by way of the shared medical record. ENDOCRINE SURGICAL HISTORY: New or established diagnosis: Established Prior history of radiation treatment to the neck: No Known thyroid disease: No Known parathyroid disease: Yes Prior neck operations: No Family history of hypercalcemia: None Family history of thyroid cancer: No Family history of other endocrine tumors: Pancreatic cancer in niece Pertinent medications (levothyroxine, blood thinners, calcium, diuretics, lithium, Sensipar, biotin): None PMH: PAST MEDICAL HISTORY Diagnosis Date Acute leukemia of unspecified cell type in remission Benign neoplasm of colon BPH (benign prostatic hypertrophy) with urinary obstruction 01/06/2013 Controlled type 2 diabetes mellitus without complication, without long-term current use of insulin ([facility]) 07/24/2016 Degenerative disc disease, cervical 12/09/2015 Diabetes mellitus ([facility]) 07/14/2010 Elevated alkaline phosphatase level 01/10/2021 01/09/21 alk phos 142 Gout 08/25/2012 History of splenectomy 02/07/2015 Hypertension Inguinal hernia 04/08/2014 LBBB (left bundle branch block) Lumbar disc disease with radiculopathy 04/06/2013 Mental disorder Mild cognitive impairment with memory loss 09/13/2015 Snoring spinal stenosis PSH: PAST SURGICAL HISTORY Procedure Laterality Date COLONOSCOPY FLX DX W/COLLJ SPEC WHEN PFRMD 04-06-03 Repeat in COLONOSCOPY FLX DX W/COLLJ SPEC WHEN PFRMD 02/17/2013 Colonoscopy COLONOSCOPY FLX DX W/COLLJ SPEC WHEN PFRMD 06/03/2018 Colonoscopy EGD 08/24/03 + hpylori PAST SURGICAL HISTORY OF 2001 back surgery PAST SURGICAL HISTORY OF 2000 back surgery PAST SURGICAL HISTORY OF Right 2018 hemiarthroplasty of hip RPR 1ST INGUN HRNA AGE 5 YRS/> REDUCIBLE 08/29/2020 Hernia repair, inguinal,left 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 TONSILLECTOMY PRIMARY/SECONDARY <AGE 12 Tonsillectomy CURRENT MEDICATIONS: Current Outpatient Medications on File Prior to Visit Medication Sig IFEREX 150 150 mg iron capsule Take 150 mg by mouth once daily. finasteride (PROSCAR) 5 mg tablet Take 1 tablet by mouth once daily. memantine (NAMENDA) 5 mg tablet Take 2 tabs in am and one in pm po for one week and then two tabs bid after. metFORMIN (GLUCOPHAGE) 500 mg tablet Take 1 tablet by mouth twice daily with meals. atorvastatin (LIPITOR) 10 mg tablet Take 1 tablet by mouth once daily. doxazosin (CARDURA) 1 mg tablet Take 1 tablet by mouth daily at bedtime. PARoxetine (PAXIL) 10 mg tablet Take 1 tablet by mouth once daily. donepezil (ARICEPT) 10 mg tablet Take 1 tablet by mouth daily at bedtime. losartan (COZAAR) 50 mg tablet Take 1 tablet by mouth once daily. allopurinol (ZYLOPRIM) 300 mg tablet TAKE 1 TABLET BY MOUTH ONCE DAILY. FOR GOUT. Current Facility-Administered Medications on File Prior to Visit Medication perflutren lipid microspheres 1.3 mL in NaCl (PF) 0.9% 10 mL injection (DEFINITY) sodium chloride 0.9 % (flush) 10 mL (BD POSIFLUSH) All: ALLERGIES Allergen Reactions Altace [Ramipril] Gabapentin Other: See Comments tremors Toprol Xl [Metoprol* SH: Social History Tobacco Use Smoking status: Former Packs/day: 0.50 Years: 20.00 Pack years: 10.00 Types: Cigarettes Quit date: 05/21/1999 Years since quittin.6 Smokeless tobacco: Never Vaping Use Vaping Use: Never used Substance Use Topics Alcohol use: Yes Comment: occasionally Drug use: Never FH: Pertinent history above; otherwise, non-contributory REVIEW OF SYSTEMS: CONSTITUTIONAL: Well-appearing, no malaise or fevers EYES: normal HEENT: Negative for occular, acoustic, nasal, or oral complaints RESPIRATORY: Negative for cough, hemoptysis, wheezing, or resting dyspnea CARDIOVASCULAR: Negative for resting chest pain GI: No nausea, vomiting, or diarrhea : normal MUSCULOSKELETAL: Negative for joint swelling or acute pain SKIN: no rashes, erythema, or skin cancers PSYCH: Negative for significant mood disorder or psychiatric illness NEURO: No history of recent syncope, paralysis, or seizures ENDOCRINE: See HPI PHYSICAL EXAM: BP 143/70 Pulse 63 Ht 157.5 cm (5' 2.01) Wt 59.4 kg (131 lb) BMI 23.95 kg/m CONSTITUTIONAL: Well appearing, alert, and oriented and appears euthyroid. NECK: skin over the anterior neck is smooth, no mass is visualized. Palpation revealed neck to be supple, thyroid gland is palpable and overall normal in size. No lymphadenopathy was palpated on either side of the neck. ULTRASOUND EXAMINATION: Ultrasound examination was performed in the office. Difficult due to patients inability to extend neck. Hypoechoic structure in left lower neck, only visible using small probe, measuring 1.57 x 0.78 x 0.8 cm. This may represent enlarged parathyroid vs blood vessel. No worrisome lymphadenopathy was appreciated in either central neck compartment or jugular chain. DATA: - PARATHYROID DATA SHEET Latest Ref Rng & Units 11/06/2021 05/07/2022 06/12/2022 06/15/2022 11/15/2022 CALCIUM 8.5 - 10.2 mg/dL 11.0 (H) CALCIUM 8.5 - 10.2 mg/dL 10.4 (H) 10.1 10.5 (H) CALCIUM, NORMALIZED 1.08 - 1.30 mmol/L 1.30 1.34 (H) 1.34 (H) CALCIUM IONIZED, WHOLE BLOOD 1.08 - 1.30 mmol/L 1.38 (H) 1.41 (H) 1.42 (H) PTH, INTACT 15 - 65 pg/mL 85 (H) 80 (H) 87 (H) PHOSPHORUS 2.7 - 4.8 mg/dL 3.0 ALKALINE PHOSPHATASE 38 - 113 U/L 103 109 CREAT 0.73 - 1.22 mg/dL 1.22 CREATININE 0.73 - 1.22 mg/dL 1.19 1.42 (H) 1.42 (H) VITAMIN D 25 HYDROXY 31.0 - 80.0 ng/mL 35.4 34.9 ALBUMIN 3.9 - 4.9 g/dL 4.2 ALBUMIN 3.9 - 4.9 g/dL 4.2 4.5 CREATININE 24 HR UR 1.000 - 2.000 g/24 hr 0.510 (L) CALCIUM, URINE 24 HR 100.0 - 300.0 mg/24 hr 66.2 (L) - PARATHYROID DATA SHEET Latest Ref Rng & Units 11/25/2008 07/19/2010 01/26/2012 02/09/2013 CALCIUM 8.5 - 10.2 mg/dL 10.2 9.4 9.5 10.7 (H) CALCIUM 8.5 - 10.2 mg/dL CALCIUM, NORMALIZED 1.08 - 1.30 mmol/L CALCIUM IONIZED, WHOLE BLOOD 1.08 - 1.30 mmol/L PTH, INTACT 15 - 65 pg/mL PHOSPHORUS 2.7 - 4.8 mg/dL ALKALINE PHOSPHATASE 38 - 113 U/L CREAT 0.73 - 1.22 mg/dL 1.00 0.91 0.96 0.90 CREATININE 0.73 - 1.22 mg/dL VITAMIN D 25 HYDROXY 31.0 - 80.0 ng/mL ALBUMIN 3.9 - 4.9 g/dL 4.3 ALBUMIN 3.9 - 4.9 g/dL CREATININE 24 HR UR 1.000 - 2.000 g/24 hr CALCIUM, URINE 24 HR 100.0 - 300.0 mg/24 hr DIAGNOSTIC STUDIES REVIEWED: none ASSESSMENT and PLAN: In summary, Michael Mullins has primary hyperparathyroidism with neurocognitive symptoms. DEXA andsestamibi pending. Plan for parathyroidectomy. OR scheduled for 02/27/23. Consent in chart. I spent a total of 45 minutes on the date of the service which included preparing to see the patient, [id number]-[id number] patient care, completing clinical documentation, obtaining and/or reviewing separately obtained history, performing a medically appropriate examination, counseling and educating the pat ient/family/caregiver, ordering medications, tests, or procedures, communicating with other HCPs (not separately reported), independently interpreting results (not separately reported), communicatingresults to the patient/family/caregiver, and care coordination (not separately reported). I appreciate being involved in the care of your patient, and please feel free to contact me should you have additional questions. Sincerely, Blanche Munoz M.D. Endocrine Surgeon [facility] documented in this encounterProv[facility]02-09-2023 History of Present illness Narrative* Hayley Millard, RT(R) - 12/27/2022 10:30 AM EST RADIOLOGY SERVICE PROGRESS NOTE SERVICE DATE: 12/27/2022 SERVICE TIME: 10:47 AM PATIENT IDENTITY VERIFICATION COMPLETED USING TWO (2) STANDARD IDENTIFIERS: Name and Date of confirmed by patient verbally FALL SCREENING: Has the patient had 2 falls in the last year or 1 fall with injury or currently using an Ambulatory Assistive Device (Walker, Cane, Wheelchair, Crutches, etc.)? No PATIENT GENDER DATA: .male ALLERGIES: Reviewed and unchanged MEDICATIONS REVIEWED: Yes PATIENT RELEVANT IMPLANT DATA REVIEWED: Not Applicable CREATININE: Creatinine Date Value Ref Range Status 11/15/2022 1.42 (H) 0.73 - 1.22 mg/dL Final 06/12/2022 1.42 (H) 0.73 - 1.22 mg/dL Final 05/07/2022 1.19 0.73 - 1.22 mg/dL Final Estimated Glomerular Filtration Rate Date Value Ref Range Status 11/15/2022 50 (L) >=60 mL/min/1.73m Final Comment: Estimated Glomerular Filtration Rate (eGFR) is calculated using the 2020 CKD-EPI creatinine equation. This equation utilizes serum creatinine, sex, and age as parameters. The creatinine assay has traceable calibration to isotope dilution- mass spectrometry. Refer to KDIGO guidelines for clinical interpretation. In patients with unstable renal function, e.g. those with acute kidney injury, the eGFRmay not accurately reflect actual GFR. eGFR- Date Value Ref Range Status 11/06/2021 >60 Final P.O.C.T. RESULTS: N/A December 27, [address] PERFORMED: No IV SITE: Ambulatory: A peripheral IV was started in the Right antecubital site with a Angio cath: 22 gauge. POST EXAM PIV STATUS: Discontinued PROCEDURE TYPE: NM Parathyroid: 330 microcurries of Nal 123 capsules was administered orally at 0940. 35.0 mCi of Tc99m Sestamibi was injected IV at 1334. ADMINISTRATION TIME: 0940 PATIENT DISCHARGED TO: Ambulatory patient, left [place] department area. A Diagnostic radioactive procedure has taken place, with no further precautions necessary other than routine body substance precautions. More information regarding radiation safety can be found usingthis link: [email or web address] SIGNATURE: RT Krzysztof(William) PATIENT NAME: Michael Mullins DATE: December 27, 2022 TIME: 10:47 AM PAGER/CONTACT #: documented in this encounterProvidence Hospital02-09-2023 Instructions* Patient Instructions* Florence Gan Ma - 12/27/2022 10:03 AM EST Thank you for choosing the [facility] Department of Endocrinology, Diabetes and Metabolism. Did you know that you need to call 48 hours in advance of your scheduled visit, if you are unable to make your appointment? The Endocrinology and Metabolism [place] thanks you for your commitment, because patients not showing to their appointment results in a lost opportunity for patients to receive [facility] health care at the [facility] [facility] To Cancel an appointment, please choose one of the following: - Call the Appointment Call Center at [phone] - From [facility], Go to Appointments - Cancel Appts If cancelling, consider your need to reschedule to prevent further delays in your care. To Schedule an appointment, please choose one of the following: - Call the Appointment Call Center at [phone] - From [facility], Go to Appointments - Request an Appt documented in this encounterProvidence [facility]02-09-[facility]23 History of Present illness Narrative* Destini Zamora - 12/27/2022 8:55 AM EST Radiology Service Progress Note PATIENT NAME: Michael Mullins DATE OF SERVICE: December 27, 2022 TIME: 8:37 AM PATIENT IDENTITY VERIFICATION COMPLETED USING TWO (2) IDENTIFIERS: Name and Date of confirmedby patient verbally. FALL SCREENING: Has the patient had 2 falls in the last year or 1 fall with injury or currently using an Ambulatory Assistive Device (Walker, Cane, Wheelchair, Crutches, etc.)? No PATIENT GENDER DATA: Male PATIENT RELEVANT IMPLANT DATA REVIEWED: Not Applicable RADIOLOGY DEPARTMENT: Bone Density PERIPHERAL IV DATA: Not applicable SIGNED BY: Destini Zamora December 27, 2022 8:37 AM documented in this encounterProvidence Hospital02-01-2023 Miscellaneous Notes* Telephone Encounter - Marisol Hayes - 12/19/2022 4:57 PM EST ENDOCRINE SURGERY PATIENT WORKSHEET Initial Call Date: December 19, 2022 Reason for Consult/ Referral: Hyperparathyroid PATIENT DEMOGRAPHICS Name: Michael Mullins F#: [id number] : 1940 AGE: [age] year old Contact Numbers: Home: (home) Work: There is no work phone number on file. PATIENT PHYSICIAN INFORMATION Referring Doctor: Shanthi Rangel Address: Phone: Pharmacist Helper: same Address: Phone: PCP: Antony Espinoza [address] [place] [address] PAST TREATMENT Office notes: SEE EPIC Medications: NONE THAT APPLY Pre-Visit Testing Component Latest Ref Rng & Units 05/07/2022 06/12/2022 06/15/2022 06/15/2022 11/15/2022 7:00 AM 7:00 AM Protein, Total 6.3 - 8.0 g/dL 5.9 (L) 6.2 (L) Albumin 3.9 - 4.9 g/dL 4.2 4.5 Calcium 8.5 - 10.2 mg/dL 10.4 (H) 10.1 10.5 (H) Bilirubin, Total 0.2 - 1.3 mg/dL 0.5 0.4 Alkaline Phosphatase 38 - 113 U/L 103 109 AST 14 - 40 U/L 27 26 ALT 10 - 54 U/L 15 10 Glucose 74 - 99 mg/dL 87 97 93 BUN 9 - 24 mg/dL 20 26 (H) 24 Creatinine 0.73 - 1.22 mg/dL 1.19 1.42 (H) 1.42 (H) Sodium 136 - 144 mmol/L 143 140 140 Potassium 3.7 - 5.1 mmol/L 4.8 4.7 5.1 Chloride 97 - 105 mmol/L 107 (H) 106 (H) 104 CO2 22 - 30 mmol/L 25 24 28 Anion Gap 9 - 18 mmol/L 11 10 8 (L) eGFR >=60 mL/min/1.73m 62 50 (L) 50 (L) Creatinine 24 hr Ur 1.000 - 2.000 g/24 hr 0.510 (L) Period hours 24 24 Urine Volume 24 hour mL 525 525 Calcium, 24 Hr Urine 100.0 - 300.0 mg/24 hr 66.2 (L) Normalized CAlcium 1.08 - 1.30 mmol/L 1.30 1.34 (H) 1.34 (H) Ionized Calcium 1.08 - 1.30 mmol/L 1.38 (H) 1.41 (H) 1.42 (H) Vitamin D 25 Hydroxy 31.0 - 80.0 ng/mL 35.4 34.9 PTH, Intact 15 - 65 pg/mL 85 (H) 80 (H) 87 (H) Phosphorus 2.7 - 4.8 mg/dL 3.0 Imaging Reports: SEE EPIC CD of Images: SEE EPIC FNA: no FNA Slides: N/A Has the patient ever had thyroid or parathyroid surgery before: No Operative Reports: NONE AVAILABLE Pathology Reports: NONE AVAILABLE documented in this encounterProvidence Hospital01-31-2023 History of Present illness Narrative* Lori Maxine - 12/18/2022 8:34 AM EST Last saw Dr. Espinoza: 11/15/22 Subjective: Patient presents to clinic c/o painful toenails. They state that the nails are especially painful with shoe gear and pressure. Patient states that nails 1-5 b/l are painful. Patient admits to being diabetic. No other pedal complaints at this time. Patient states no change in medications or medical history since last visit. Objective: Patient presents to clinic ambulating in [facility] Vasc: DP and PT pulses are palpable bilateral. CFT is less than 5 seconds bilateral. Skin temperature is warm to cool proximal to distal bilateral. There is no edema or varicosities noted. Neuro: Protective sensation is intact to the foot and toes when tested with the 5.07 SWM bilateral.Vibratory sensation is decreased at the hallux IPJ bilateral. The hallux is downgoing bilateral. Derm: Nails 1-5 b/l are painful, discolored-yellow, thick, crumbly, dystrophic and with subungal debris. Skin is of normal turgor, texture and hair growth is present bilateral. There are no hyperkeratosis, ulcerations, scars, verruca or other lesions noted. Ortho: Muscle strength is 5/5 for all pedal groups tested. Ankle joint DF is decreased with the knee extended with no pain or crepitus noted. 1st MPJ ROM is decreased bilateral. Hammertoes are noted to lesser toes of b/l feet. Assessment: (B35.1) Onychomycosis (primary encounter diagnosis (M79.675) Pain in toe of left foot (M79.674) Pain in toe of right foot (E11.42) Diabetic polyneuropathy associated with type 2 diabetes mellitus (HCC) (L85.3) Xerosis cutis Plan: Patient was seen and evaluated. Nails 1-5 bilateral were debrided in length and thickness. Continue with lotion for dryness to b/l feet. Small dryness of b/l hallux reduced with dremmel. Continue with wider shoes for hammertoe Patient was instructed on the continued importance of diabetic foot care along with proper diet andkeeping their blood sugar under control to prevent complications. Patient is to RTC in 3-4 months. Lori Goodman DPM * Prabha Mayo RN - 12/18/2022 8:29 AM EST Patient presents with: Right Foot - Established Patient, Follow Up, Pain, Diabetic Foot Care Left Foot - Established Patient, Follow Up, Diabetic Foot Care Patient presents for diabetic foot care. documented in this encounterProvidence Hospital01-31-2023 Instructions* Patient Instructions* Lori Goodman - 12/18/2022 8:33 AM EST Diabetes Foot Care Instructions When you have diabetes, proper foot care is very important. Poor foot care may lead to amputation of a foot or leg. As a person with diabetes, you are more vulnerable to foot problems, because diabetes can damage your nerves and reduce blood flow to your feet. Here are some diabetes foot care tips to follow: Wash and Dry Your Feet Daily Use mild soaps Use warm water Pat your skin dry; do not rub. Thoroughly dry your feet. After washing, use lotion on your feet to prevent cracking. Do not put lotion between your toes. Examine Your Feet Each Day Check the tops and bottoms of your feet. Have someone else look at your feet if you cannot see them. Check for dry, cracked skin. Look for blisters, cuts, scratches, or other sores. Check for redness, increased warmth, or tenderness when touching any area of your feet. Check for ingrown toenails, corns, and calluses. If you get a blister or sore from your shoes, do not pop it. Apply a bandage and wear a differentpair of shoes. Take Care of Your Toenails Cut toenails after bathing, when they are soft. Cut toenails straight across and smooth with a nail file. Avoid cutting into the corners of toes. Do not cut cuticles. If you have neuropathy (or decreased sensation in your feet) a hair designer should always cut your toenails. Be Careful When Exercising Walk and exercise in comfortable shoes. Do not exercise when you have open sores on your feet. Protect Your Feet With Shoes and Socks Never go barefoot. Always protect your feet by wearing shoes or hard-soled slippers or footwear. Avoid shoes with high heels and pointed toes. Avoid shoes that expose your toes or heels (such as open-toed shoes or sandals). These types of shoes increase your risk for injury and potential infections. Try on new footwear with the type of socks you usually wear. Do not wear new shoes for more than an hour at a time. Change your socks daily. Look and feel inside your shoes before putting them on to make sure there are no foreign objects orrough areas. Avoid tight socks. Wear natural-fiber socks (cotton, wool, or a cotton-wool blend). Wear special shoes if your health care provider recommends them. Wear shoes/boots that will protect your feet from various weather conditions (cold, moisture, etc.). Make sure your shoes fit properly. If you have neuropathy (nerve damage), you may not notice that your shoes are too tight. Perform the footwear test described below. Footwear Test Use this simple test to see if your shoes fit correctly: Stand on a piece of paper. (Make sure you are standing and not sitting, because your foot changes shape when you stand.) Trace the outline of your foot. Trace the outline of your shoe. Compare the tracings: Is the shoe too narrow? Is your foot crammed into the shoe? The shoe should be at least 1/2 inch longer than your longest toe and as wide as your foot. Proper Shoe Choices The following types of shoes are best for people with diabetes Closed toes and heels Leather uppers without a seam inside At least 1/2 inch extra space at the end of your longest toe Inside of shoe should be soft with no rough areas Outer sole should be made of stiff material Shoes should be at least as wide as your feet Tips for Foot Care in Diabetes Don't wait to treat a minor foot problem if you have diabetes. Follow your health care provider's guidelines and first aid guidelines. Report foot injuries and infections to your health care provider immediately. Check water temperature with your elbow, not your foot. Do not use a heating pad on your feet. Do not cross your legs. Do not self-treat your corns, calluses, or other foot problems. Go to your health care provider or hair designer to treat these conditions. documented in this encounterProvidence Hospital01-26-2023 History of Present illness Narrative* Shanthi Rangel MD - 12/13/2022 2:00 PM EST ENDOCRINOLOGY CLINIC NOTE Mr. 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 Labs in 04/2022 showed calcium 10.4 with no concomitant albumin, iCa 1.30, vitamin D 35.4 and PTH 85 Mr. Mullins denied muscle aches/pains or kidney stones, and there is no family history of calcium related issues. He had R hip fracture 3 years ago following a fall down 4 steps. He does not take calcium pills but he takes vitamin D of unknown strength Interval events: Labs in 10/2022 showed albumin adjusted calcium 10.1, iCa 1.34, GFR 50 and PTH 87. His 24-hour urine calcium was low at 66 in May 2022, but with poor collection based on the urine creatinine and volume He is doing well with no major changes in his health. He still reports fatigue. He take vitamin D of unclear strength, but no calcium supplements PAST MEDICAL HISTORY Diagnosis Date Acute leukemia of unspecified cell type in remission Benign neoplasm of colon BPH (benign prostatic hypertrophy) with urinary obstruction 01/06/2013 Controlled type 2 diabetes mellitus without complication, without long-term current use of insulin ([facility]) 07/24/2016 Degenerative disc disease, cervical 12/09/2015 Diabetes mellitus ([facility]) 07/14/2010 Elevated alkaline phosphatase level 01/10/2021 01/09/21 alk phos 142 Gout 08/25/2012 History of splenectomy 02/07/2015 Hypertension Inguinal hernia 04/08/2014 LBBB (left bundle branch block) Lumbar disc disease with radiculopathy 04/06/2013 Mental disorder Mild cognitive impairment with memory loss 09/13/2015 Snoring spinal stenosis PAST SURGICAL HISTORY Procedure Laterality Date COLONOSCOPY FLX DX W/COLLJ SPEC WHEN PFRMD 04-06-03 Repeat in COLONOSCOPY FLX DX W/COLLJ SPEC WHEN PFRMD 02/17/2013 Colonoscopy COLONOSCOPY FLX DX W/COLLJ SPEC WHEN PFRMD 06/03/2018 Colonoscopy EGD 08/24/03 + hpylori PAST SURGICAL HISTORY OF 2001 back surgery PAST SURGICAL HISTORY OF 2001 back surgery PAST SURGICAL HISTORY OF Right 2018 hemiarthroplasty of hip RPR 1ST INGUN HRNA AGE 7 YRS/> REDUCIBLE 08/29/2020 Hernia repair, inguinal,left SPLENECTOMY TOTAL SEPARATE PROCEDURE 1984 Splenectomy TONSILLECTOMY PRIMARY/SECONDARY <AGE 14 Tonsillectomy FAMILY HISTORY Problem Relation Age of Onset Cancer Mother ovarian Heart Father COPD Sister Cancer Sister retroorbital Social History Tobacco Use Smoking status: Former Packs/day: 0.50 Years: 20.00 Pack years: 10.00 Types: Cigarettes Quit date: 05/21/1999 Years since quittin.5 Smokeless tobacco: Never Vaping Use Vaping Use: Never used Substance Use Topics Alcohol use: Yes Comment: occasionally Drug use: Never (Not in a hospital admission) Allergies As of Date: 12/13/2022 Allergen Noted Reaction ALTACE [RAMIPRIL] 09/18/2005 GABAPENTIN 04/06/2013 Other: See Comments TOPROL XL [METOPROLOL SUCCINATE] 09/18/2005 Fully Assessed 11/26/2022 Current Outpatient Medications Medication Sig Dispense Refill finasteride (PROSCAR) 5 mg tablet Take 1 tablet by mouth once daily. 90 tablet 3 memantine (NAMENDA) 5 mg tablet Take 2 tabs in am and one in pm po for one week and then two tabs bid after. 120 tablet 1 metFORMIN (GLUCOPHAGE) 500 mg tablet Take 1 tablet by mouth twice daily with meals. 180 tablet 0 atorvastatin (LIPITOR) 10 mg tablet Take 1 tablet by mouth once daily. 90 tablet 3 doxazosin (CARDURA) 1 mg tablet Take 1 tablet by mouth daily at bedtime. 30 tablet 2 PARoxetine (PAXIL) 10 mg tablet Take 1 tablet by mouth once daily. 90 tablet 1 donepezil (ARICEPT) 10 mg tablet Take 1 tablet by mouth daily at bedtime. 90 tablet 3 losartan (COZAAR) 50 mg tablet Take 1 tablet by mouth once daily. 90 tablet 1 allopurinol (ZYLOPRIM) 300 mg tablet TAKE 1 TABLET BY MOUTH ONCE DAILY. FOR GOUT. 90 tablet 3 Current Facility-Administered Medications Medication Dose Route Frequency Provider Last Rate Last Admin perflutren lipid microspheres 1.3 mL in NaCl (PF) 0.9% 10 mL injection (DEFINITY) INTRAVENOUS DIRECTED PRAnika Holly MD sodium chloride 0.9 % (flush) 10 mL (BD POSIFLUSH) 10 mL INTRAVENOUS DIRECTED PRAnika Holly MD COMPLETE REVIEW OF SYSTEMS: Answers submitted by the patient for this visit: Endocrine Review of Systems (Submitted on 12/12/2022) Fatigue: Yes Night Sweats: No Recent Unintentional Weight Change: No Skin Color Changes: No Post-Nasal Drip: Yes Thyroid Pain (lower neck): No Trouble Swallowing: No Vision Disturbance: No Chest Pain: No Leg Swelling: No Blood Clots?: No Leg Pain while walking?: No Difficulty Breathing?: No Heartburn: No Nausea: No Vomiting?: No Diarrhea: No Constipation: No Abdominal Pain: No Bone Pain?: No Muscle Aches: Yes Muscle Weakness: Yes Joint Pain or Stiffness: Yes Headaches: No Dizziness: No Numbness?: Yes Flushing?: No Hot Flashes?: No Increased Thirst: No Change in Body Hair?: No Cold Intolerance: Yes Heat Intolerance?: No PHYSICAL EXAM: 12/13/22 1317 BP: 134/74 Pulse: 61 Weight: 58.1 kg (128 lb) General: NAD, alert and cooperative Previous exam HEENT: EOMI, no proptosis/stare. Neck: supple with full ROM. No thyromegaly or palpable nodules. Cardiovascular: RRR, +S1 and S2, no MRG appreciated Lungs: Clear to auscultation bilaterally Abdomen: soft, non-tender, non-distended Extremities: No LE oedema Neuro: Deep tendon reflexes are normal with a normal relaxation phase. Psych: Normal affect MSK: No back tenderness Labs: 06/23/20 09:53 01/09/21 10:55 11/06/21 13:16 05/07/22 11:31 06/12/22 08:25 06/12/22 08:26 11/15/22 09:26 Calcium 9.6 9.4 11.0 (H) 10.4 (H) 10.1 10.5 (H) Normalized CAlcium 1.30 1.34 (H) 1.34 (H) Phosphorus 3.0 Albumin 4.0 4.1 4.2 4.2 4.5 eGFR-All Other Races >60 >60 57 eGFR 62 50 (L) 50 (L) PTH, Intact 85 (H) 80 (H) 87 (H) Vitamin D 25 Hydroxy 35.4 34.9 Assessment and Recommendations: Mr. Mullins is a pleasant 82-year-old man presented for follow up of hypercalcemia. He has had mild hypercalcemia over the last few months with GFR in the 50s/60s, normal vitamin D and elevated PTH. This is therefore PTH dependent hypercalcemia, likely due to primary hyperparathyroidism. [facility] is u nlikely given the age of onset and lack of family history. His 24-hour urine calcium is low becauseof poor collection based on the volume and urine creatinine. We again discussed the management options of primary hyperparathyroidism. These include observationwith periodic monitoring, medical therapy and surgery. We discussed the indications for surgery which in his case include the low GFR. He also reported poor energy, and this could be at least in partdue to the hyperparathyroidism. After discussing the above, we will do parathyroid SPECT- CT, and hewould like to meet with my colleagues from endocrine surgery to discuss the surgical option. Some of the above has been copied from prior documentation on 06/05/2022 but bentley elements reviewed, confirmed, and/or updated by me (Shanthi Rangel MD) on 12/13/2021 I spent a total of 40 minutes on the date of the service which included preparing to see the patient, [id number] patient care, completing clinical documentation, obtaining and/or reviewing separately obtained history, counseling and educating the patient/family/caregiver, and ordering medications, tests, or procedures. This note was created using [employer] dictation software. You may find errors that were missed during proofreading. They are purely unintentional and if there are any concerns regarding this dictation, please do not hesitate to contact the dictating provider for clarification. Shanthi Rangel MD documented in this encounterProvidence Hospital01-26-2023 Instructions* Patient Instructions* Shanthi Rangel MD - 12/13/2022 1:16 PM EST - We will do parathyroid SPECT scan. Please call [phone] to schedule - We will refer you to endocrine surgery clinic to discuss surgery for the parathyroid gland Thank you [facility] the [facility] Department of Endocrinology, Diabetes and Metabolism. Did you know that you need to call 48 hours in advance of your scheduled visit, if you are unable to make your appointment? The Endocrinology and Metabolism [facility] thanks you for your commitment, because patients not showing to their appointment results in a lost opportunity for patients to receive [facility] health care at the [facility]. To Cancel an appointment, please choose one of the following: - Call the Appointment Call Center at [phone] - From [facility], Go to Appointments - Cancel Appts If cancelling, consider your need to reschedule to prevent further delays in your care. To Schedule an appointment, please choose one of the following: - Call the Appointment Call Center at [phone] - From [facility], Go to Appointments - Request an Appt documented in this encounterProvidence Hospital01-20-2023 Miscellaneous Notes* Telephone Encounter - Ayan Mahoney Ma - 12/07/2022 2:39 PM EST Patient notified via mychart. * Telephone Encounter - Ara Paniagua Pss - 12/07/2022 2:25 PM EST Pharmacy verified in Epic Patient has been identified by name and date of : Yes Patient aware RX will be sent to pharmacy. No need to notify patient. Spouse phones for refill(s): Requested Prescriptions Pending Prescriptions Disp Refills atorvastatin (LIPITOR) 10 mg tablet 90 tablet 3 Sig: Take 1 tablet by mouth once daily. Date of last office visit : 11/15/2022 Date of next office visit : Visit date not found Last 2 Encounter Wt Readings: Date: Wt: 11/26/2022 60.6 kg (133 lb 9.6 oz) 11/23/2022 59 kg (130 lb) Please advise. Ara Paniagua Pss documented in this encounterProvidence Hospital01-09-2023 History of Present illness Narrative* Ian Holly MD - 11/26/2022 2:32 PM EST Images from the original note were not included. Ian Holly MD Interventional Cardiology [address] [place] [address] Chief Complaint Patient presents with: Established Patient HISTORY OF PRESENT ILLNESS: Mr. Mullins is a 82 year old male seen in my office today for assessment management of his cardiomyopathy patient had prior history of mild LV systolic dysfunction with COVID pneumonia has been on medical therapy Last ejection fraction 50% patient asymptomatic denies symptoms of and signs of congestive heart failure No angina On ARB Cardiac Risk Factors age (male over 45, female over 55), hyperlipidemia, hypertension, family history of CAD PAST MEDICAL HISTORY Diagnosis Date Acute leukemia of unspecified cell type in remission Benign neoplasm of colon BPH (benign prostatic hypertrophy) with urinary obstruction 01/06/2013 Controlled type 2 diabetes mellitus without complication, without long-term current use of insulin (HCC) 07/24/2016 Degenerative disc disease, cervical 12/09/2015 Diabetes mellitus (HCC) 07/14/2010 Elevated alkaline phosphatase level 01/10/2021 01/09/21 alk phos 142 Gout 08/25/2012 History of splenectomy 02/07/2015 Hypertension Inguinal hernia 04/08/2014 LBBB (left bundle branch block) Lumbar disc disease with radiculopathy 04/06/2013 Mental disorder Mild cognitive impairment with memory loss 09/13/2015 Snoring spinal stenosis PAST SURGICAL HISTORY Procedure Laterality Date COLONOSCOPY FLX DX W/COLLJ SPEC WHEN PFRMD 04-06-03 Repeat in COLONOSCOPY FLX DX W/COLLJ SPEC WHEN PFRMD 02/17/2013 Colonoscopy COLONOSCOPY FLX DX W/COLLJ SPEC WHEN PFRMD 06/03/2018 Colonoscopy EGD 08/24/03 + hpylori PAST SURGICAL HISTORY OF 2001 back surgery PAST SURGICAL HISTORY OF 2000 back surgery PAST SURGICAL HISTORY OF Right 2018 hemiarthroplasty of hip RPR 1ST INGUN HRNA AGE 7 YRS/> REDUCIBLE 08/29/2020 Hernia repair, inguinal,left 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 TONSILLECTOMY PRIMARY/SECONDARY <AGE 14 Tonsillectomy FAMILY HISTORY Problem Relation Age of Onset Cancer Mother ovarian Heart Father COPD Sister Cancer Sister retroorbital Social History Tobacco Use Smoking status: Former Packs/day: 0.50 Years: 20.00 Pack years: 10.00 Types: Cigarettes Quit date: 05/21/1999 Years since quittin.5 Smokeless tobacco: Never Vaping Use Vaping Use: Never used Substance Use Topics Alcohol use: Yes Comment: occasionally Drug use: Never ALLERGIES Allergen Reactions Altace [Ramipril] Gabapentin Other: See Comments tremors Toprol Xl [Metoprol* Medications: Current Outpatient Medications Medication Sig Dispense Refill finasteride (PROSCAR) 5 mg tablet Take 1 tablet by mouth once daily. 90 tablet 3 memantine (NAMENDA) 5 mg tablet Take 2 tabs in am and one in pm po for one week and then two tabs bid after. 120 tablet 1 metFORMIN (GLUCOPHAGE) 500 mg tablet Take 1 tablet by mouth twice daily with meals. 180 tablet 0 atorvastatin (LIPITOR) 10 mg tablet Take 1 tablet by mouth once daily. 90 tablet 3 doxazosin (CARDURA) 1 mg tablet Take 1 tablet by mouth daily at bedtime. 30 tablet 2 PARoxetine (PAXIL) 10 mg tablet Take 1 tablet by mouth once daily. 90 tablet 1 donepezil (ARICEPT) 10 mg tablet Take 1 tablet by mouth daily at bedtime. 90 tablet 3 losartan (COZAAR) 50 mg tablet Take 1 tablet by mouth once daily. 90 tablet 1 allopurinol (ZYLOPRIM) 300 mg tablet TAKE 1 TABLET BY MOUTH ONCE DAILY. FOR GOUT. 90 tablet 3 Current Facility-Administered Medications Medication Dose Route Frequency Provider Last Rate Last Admin perflutren lipid microspheres 1.3 mL in NaCl (PF) 0.9% 10 mL injection (DEFINITY) INTRAVENOUS DIRECTED PRN Ian Holly MD sodium chloride 0.9 % (flush) 10 mL (BD POSIFLUSH) 10 mL INTRAVENOUS DIRECTED PRN Ian Holly MD Review of Systems Constitutional: Negative for chills, diaphoresis, fever, malaise/fatigue and weight loss. HENT: Negative for congestion, ear discharge, ear pain, hearing loss, nosebleeds, sinus pain, sore throat and tinnitus. Eyes: Negative for blurred vision, double vision, photophobia, pain, discharge and redness. Respiratory: Negative for cough, hemoptysis, sputum production, shortness of breath, wheezing and stridor. Cardiovascular: Negative for chest pain, palpitations, orthopnea, claudication, leg swelling and PND. Gastrointestinal: Negative for abdominal pain, blood in stool, constipation, diarrhea, heartburn, melena, nausea and vomiting. Genitourinary: Negative for dysuria, flank pain, frequency, hematuria and urgency. Musculoskeletal: Negative for back pain, falls, joint pain, myalgias and neck pain. Skin: Negative for itching and rash. Neurological: Negative for dizziness, tingling, tremors, sensory change, speech change, focal weakness, seizures, loss of consciousness, weakness and headaches. Endo/Heme/Allergies: Negative for environmental allergies and polydipsia. Does not bruise/bleed easily. Psychiatric/Behavioral: Negative for depression, hallucinations, memory loss, substance abuse and suicidal ideas. The patient is not nervous/anxious and does not have insomnia. Physical Examination: Vitals:BP 124/64 Pulse 64 Wt 133 lb 9.6 oz (60.6kg) SpO2 97% BP w/Orthostatic Vitals Date and Time Orthostatic BP Orthostatic Pulse BP Pulse BP Position BP Site BP Cuff Size 11/26/22 1411 -- -- 124/64 64 Sitting Right Arm Regular Adult Last 2 Encounter Wt Readings: Date: Wt: 11/26/2022 60.6 kg (133 lb 9.6 oz) 11/23/2022 59 kg (130 lb) Physical Exam Constitutional: General: He is not in acute distress. Appearance: He is not diaphoretic. HENT: Head: Normocephalic and atraumatic. Right Ear: External ear normal. Left Ear: External ear normal. Nose: Nose normal. Mouth/Throat: Pharynx: Oropharynx is clear. Eyes: General: Right eye: No discharge. Left eye: No discharge. Conjunctiva/sclera: Conjunctivae normal. Pupils: Pupils are equal, round, and reactive to light. Cardiovascular: Rate and Rhythm: Normal rate and regular rhythm. Heart sounds: Normal heart sounds, S1 normal and S2 normal. No murmur heard. No friction rub. No gallop. No S3 or S4 sounds. Pulmonary: Effort: Pulmonary effort is normal. No respiratory distress. Breath sounds: Normal breath sounds. No wheezing or rales. Chest: Chest wall: No tenderness. Musculoskeletal: General: Normal range of motion. Cervical back: Normal range of motion and neck supple. Skin: General: Skin is warm and dry. Neurological: Mental Status: He is alert and oriented to person, place, and time. Psychiatric: Mood and Affect: Mood normal. Thought Content: Thought content normal. Judgment: Judgment normal. Pertinent Labs: CBC: Hemoglobin (g/dL) Date Value 05/07/2022 13.6 11/06/2021 12.6 Hematocrit (%) Date Value 05/07/2022 43.9 11/06/2021 39.8 WBC (k/uL) Date Value 05/07/2022 9.87 11/06/2021 18.03 Platelet Count (k/uL) Date Value 05/07/2022 259 11/06/2021 274 BMP: Glucose (mg/dL) Date Value 11/15/2022 93 11/06/2021 87 Potassium (mmol/L) Date Value 11/15/2022 5.1 11/06/2021 5.0 Sodium (mmol/L) Date Value 11/15/2022 140 11/06/2021 141 Chloride (mmol/L) Date Value 11/15/2022 104 11/06/2021 102 CO2 (mmol/L) Date Value 11/15/2022 28 11/06/2021 28 Creatinine (mg/dL) Date Value 11/15/2022 1.42 11/06/2021 1.22 BUN (mg/dL) Date Value 11/15/2022 24 11/06/2021 28 Anion Gap (mmol/L) Date Value 11/15/2022 8 11/06/2021 11 Calcium (mg/dL) Date Value 11/06/2021 11.0 Calcium, Total (mg/dL) Date Value 11/15/2022 10.5 INR: Lipid Profile: Cholesterol, Total Date Value Ref Range Status 05/07/2022 124 <200 mg/dL Final Comment: <200 mg/dL, Desirable 200-239 mg/dL, Borderline high >239 mg/dL, High HDL Cholesterol Date Value Ref Range Status 05/07/2022 50 >39 mg/dL Final Comment: 40-59 mg/dL, Acceptable >59 mg/dL, High: Negative risk factor for coronary heart disease <40 mg/dL, Low: Positive risk factor for coronary heart disease LDL Cholesterol Date Value Ref Range Status 05/07/2022 58 <100 mg/dL Final Comment: <100 mg/dL, Optimal 100-129 mg/dL, Near optimal/above optimal 130-159 mg/dL, Borderline high 160-189 mg/dL, High >189 mg/dL, Very high Secondary prevention optimal LDL Cholesterol levels are recommended to be < 70 mg/dL Triglyceride Date Value Ref Range Status 05/07/2022 81 <150 mg/dL Final Comment: <150 mg/dL, Normal 150-199 mg/dL, Borderline high 200-499 mg/dL, High >499 mg/dL, Very high Hemoglobin A1C: No results found for: HGBA1C TSH: No results found for: TSHREFL Prior Cardiac Testing none Assessment and Plan: 82 years old with mild LV systolic dysfunction dilated cardiomyopathy associated with COVID-pneumonia Cardiomyopathy No evidence of CHF Continue same medical treatment Echo in 1 year Follow-up in 1 year Follow up planning: One year Electronically signed by Ian Holly MD on November 26, 2022, 2:32 PM The above note was partially created using a dictation recognition software. A reasonable attempt has been made to correct any errors. documented in this encounterProv[facility]01-06-[facility]23 Instructions* Patient Instructions* Lorenzo Carballo PA-C - 11/23/2022 2:46 PM EST > 1 year Appt w/ DAISY Villalba, [place], CARMEN for annual follow-up and refills. documented in this encounterProvidence Hospital01-06-2023 History of Present illness Narrative* Lorenzo Carballo PA-C - 11/23/2022 9:12 AM EST Images from the original note were not included. [facility] ESTABLISHED PATIENT CLINIC NOTE Some elements copied from his previous note, which have been updated where appropriate, and all reflect current medical decision making from date of this visit. SERVICE DATE: 11/23/2022 SERVICE TIME: 9:13 AM NAME: Michael Mullins CHIEF COMPLAINT: BPH HISTORY OF PRESENT ILLNESS: Michael Mullins is a 82 year old Male with PMH including DM-2 presenting with BPH follow-up The patient reports doing well but does have some Nocturia , given Leukocytes in urine I will do a urine culture LUTS: DYSURIA: no URGENCY: Yes FREQUENCY:5 per day NOCTURIA: 2 per night STRAINING TO VOID: No EMPTIES COMPLETELY: Yes UTI: No GROSS HEMATURIA: no MICROSCOPIC HEMATURIA: no UA DIPSTICK POSITIVE ONLY: no Other symptoms: LABS: Hematocrit (%) Date Value 05/07/2022 43.9 11/06/2021 39.8 01/09/2021 40.4 04/19/2016 40.0 04/08/2014 41.4 HCT (%) Date Value 05/09/2020 40.1 05/07/2019 37.8 04/28/2018 44.0 PSA (ng/mL) Date Value 01/09/2021 4.43 01/12/2019 3.30 07/18/2017 3.05 08/21/2016 2.69 PSA Screening (ng/mL) Date Value 11/15/2022 1.78 11/06/2021 2.51 No results found for: TESTOST MEDICATIONS: memantine (NAMENDA) 5 mg tablet^Take 2 tabs in am and one in pm po for one week and then two tabs bid after.^Disp: 120 tablet^Rfl: 1 metFORMIN (GLUCOPHAGE) 500 mg tablet^Take 1 tablet by mouth twice daily with meals.^Disp: 180 tablet^Rfl: 0 atorvastatin (LIPITOR) 10 mg tablet^Take 1 tablet by mouth once daily.^Disp: 90 tablet^Rfl: 3 doxazosin (CARDURA) 1 mg tablet^Take 1 tablet by mouth daily at bedtime.^Disp: 30 tablet^Rfl: 2 PARoxetine (PAXIL) 10 mg tablet^Take 1 tablet by mouth once daily.^Disp: 90 tablet^Rfl: 1 donepezil (ARICEPT) 10 mg tablet^Take 1 tablet by mouth daily at bedtime.^Disp: 90 tablet^Rfl: 3 losartan (COZAAR) 50 mg tablet^Take 1 tablet by mouth once daily.^Disp: 90 tablet^Rfl: 1 allopurinol (ZYLOPRIM) 300 mg tablet^TAKE 1 TABLET BY MOUTH ONCE DAILY. 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 BPH (benign prostatic hypertrophy) with urinary obstruction 01/06/2013 Controlled type 2 diabetes mellitus without complication, without long-term current use of insulin (HCC) 07/24/2016 Degenerative disc disease, cervical 12/09/2015 Diabetes mellitus (HCC) 07/14/2010 Elevated alkaline phosphatase level 01/10/2021 01/09/21 alk phos 142 Gout 08/25/2012 History of splenectomy 02/07/2015 Hypertension Inguinal hernia 04/08/2014 LBBB (left bundle branch block) Lumbar disc disease with radiculopathy 04/06/2013 Mental disorder Mild cognitive impairment with memory loss 09/13/2015 Snoring spinal stenosis PAST SURGICAL HISTORY: PAST SURGICAL HISTORY Procedure Laterality Date COLONOSCOPY FLX DX W/COLLJ SPEC WHEN PFRMD 04-06-03 Repeat in COLONOSCOPY FLX DX W/COLLJ SPEC WHEN PFRMD 02/17/2013 Colonoscopy COLONOSCOPY FLX DX W/COLLJ SPEC WHEN PFRMD 06/03/2018 Colonoscopy EGD 08/24/03 + hpylori PAST SURGICAL HISTORY OF 2001 back surgery PAST SURGICAL HISTORY OF 2000 back surgery PAST SURGICAL HISTORY OF Right 2018 hemiarthroplasty of hip RPR 1ST INGUN HRNA AGE 5 YRS/> REDUCIBLE 08/29/2020 Hernia repair, inguinal,left SPLENECTOMY TOTAL SEPARATE PROCEDURE 1984 Splenectomy TONSILLECTOMY PRIMARY/SECONDARY <AGE 14 Tonsillectomy FAMILY HISTORY: FAMILY HISTORY Problem Relation Age of Onset Cancer Mother ovarian Heart Father COPD Sister Cancer Sister retroorbital SOCIAL HISTORY: Social Connections: Not on file REVIEW OF SYSTEMS: GENERAL: No fever, chills, weight loss, or fatigue. All other systems reviewed and are negative PHYSICAL EXAMINATION: Blood pressure 128/70, pulse 82, temperature 36.6 C (97.8 F), temperature source Temporal, resp. rate 16, height 157.5 cm (5' 2), weight 59 kg (130 lb), SpO2 93 %. GENERAL: WNL nutrition, no deformities, healthy appearing PROBLEM LIST REVIEW: Yes LABS: Results for orders placed or performed in visit on 11/23/22 UA DIP, URINE (POC) Result Value Ref Range GLUCOSE UA (POCT) Negative Negative mg/dL BILIRUBIN UA (POCT) Negative Negative KETONE UA (POCT) Negative Negative mg/dL SPECIFIC GRAVITY UA (POCT) 1.025 1.005 - 1.030 HEMOGLOBIN/BLOOD UA (POCT) Negative Negative PH UA (POCT) 5.5 4.5 - 8.0 PROTEIN UA (POCT) 30 (A) Negative mg/dL UROBILINOGEN UA (POCT) 0.2 Normal E.U./dL NITRITE UA (POCT) Negative Negative LEUKOCYTES UA (POCT) Trace (A) Negative COLOR UA (POCT) Light yellow CLARITY UA (POCT) Clear Urine Culture - Pending PROCEDURES: PVR: 0 ml IMAGING: IMPRESSION/PLAN: 82 year old male with . 1. Benign prostatic hyperplasia, unspecified whether lower urinary tract symptoms present - ICD9: 600.00, ICD10: N40.0 Lorenzo Carballo, DAISY, [place], CARMEN * Martha Enriquez LPN - 11/23/2022 9:00 AM EST Verified name and date of . CC Post Void Residual HPI: Michael Mullins is a 82 year old male. The patient is here now for an appointment with DAISY Lizarraga, MARY, YULIANA. Procedure: Explained procedure to patient and verbalizes understanding. Performed a PVR. Patient urinated and instructed to empty bladder as much as possible just prior to having PVR done using bladder ultrasound scanner. Results of scan: 0 mL The patient tolerated the procedure well. Plan: Appointment with Lorenzo. documented in this encounterProvidence Hospital10-25-2022 Miscellaneous Notes* Telephone Encounter - Cori Bynum Pss - 09/11/2022 11:15 AM EDT Please note that pharmacy told patient he doesn't have any refills of atorvastatin left. Should have 1 refill left on current rx. * Telephone Encounter - Cori Bynum Pss - 09/11/2022 11:14 AM EDT Patient has been identified by name and date of : Yes Requested Prescriptions Pending Prescriptions Disp Refills atorvastatin (LIPITOR) 10 mg tablet 90 tablet 3 Sig: Take 1 tablet by mouth once daily. doxazosin (CARDURA) 1 mg tablet 30 tablet 2 Sig: Take 1 tablet by mouth daily at bedtime. PARoxetine (PAXIL) 10 mg tablet 90 tablet 1 Sig: Take 1 tablet by mouth once daily. RX INSTRUCTIONS: Patient aware RX will be sent to pharmacy. No need to notify patient. Cori Long documented in this encounterProvidence Hospital09-28-2022 Miscellaneous Notes* Telephone Encounter - Dorinda Heart Pss - 08/15/2022 3:52 PM EDT Patient has been identified by name and date of : Yes Requested Prescriptions Pending Prescriptions Disp Refills donepezil (ARICEPT) 10 mg tablet 90 tablet 3 Sig: Take 1 tablet by mouth daily at bedtime. RX INSTRUCTIONS: Patient aware RX will be sent to pharmacy. No need to notify patient. Dorinda Heart Pss documented in this encounterProvidence Hospital09-09-2022 History of Present illness Narrative* Lori Goodman - 07/27/2022 8:12 AM EDT Last saw Dr. Espinoza: 05/07/22 Subjective: Patient presents to clinic c/o painful toenails. They state that the nails are especially painful with shoe gear and pressure. Patient states that nails 1-5 b/l are painful. Patient admits to being diabetic. No other pedal complaints at this time. Patient states no change in medications or medical history since last visit. Objective: Patient presents to clinic ambulating in nike tennis shoes Vasc: DP and PT pulses are palpable bilateral. CFT is less than 5 seconds bilateral. Skin temperature is warm to cool proximal to distal bilateral. There is mild edema or varicosities noted. Neuro: Protective sensation is intact to the foot and toes when tested with the 5.07 SWM bilateral.Vibratory sensation is absent at the hallux IPJ bilateral. The hallux is downgoing bilateral. Derm: Nails 1-5 b/l are painful, discolored-yellow, thick, crumbly, dystrophic and with subungal debris. Skin is of normal turgor, texture and hair growth is present bilateral. There are no hyperkeratosis, ulcerations, scars, verruca or other lesions noted. 2.5 cm x 2.0 nevus to lateral left leg. Prior callus seems to have resolved to b/l hallux Ortho: Muscle strength is 5/5 for all pedal groups tested. Ankle joint DF is decreased with the knee extended with no pain or crepitus noted. 1st MPJ ROM is decreased bilateral. Hammertoe 2-5 b/l Assessment: Plan: Patient was seen and evaluated. Nails 1-5 bilateral were debrided in length and thickness. Small bleed present to left hallux. Cayla applied. Discussed likely nevus of left leg. This measures 2.5 cm x 2.0 cm. He is unsure how long it has been present. Discussed having him seen by dermatology. Could get him in with derm in [place] or [facility]. He has elected to monitor. If he reconsiders, would send him to [facility] as this is local Patient was instructed on the continued importance of diabetic foot care along with proper diet andkeeping their blood sugar under control to prevent complications. Patient is to RTC in 3-4 months. Lori Goodman DPM * Chiquita Gonzalez RN - 07/27/2022 8:09 AM EDT AMB ROOMING INTAKE FLOWSHEET DATA Risk Screening Do you have concerns about personal safety or safety in the home?: No Patient presents with: Left Foot - Established Patient, Debridement of Nail Right Foot - Established Patient, Debridement of Nail documented in this encounterProvidence Hospital09-09-2022 Instructions* Patient Instructions* Lori Goodman - 07/27/2022 8:12 AM EDT Diabetes Foot Care Instructions When you have diabetes, proper foot care is very important. Poor foot care may lead to amputation of a foot or leg. As a person with diabetes, you are more vulnerable to foot problems, because diabetes can damage your nerves and reduce blood flow to your feet. Here are some diabetes foot care tips to follow: Wash and Dry Your Feet Daily Use mild soaps Use warm water Pat your skin dry; do not rub. Thoroughly dry your feet. After washing, use lotion on your feet to prevent cracking. Do not put lotion between your toes. Examine Your Feet Each Day Check the tops and bottoms of your feet. Have someone else look at your feet if you cannot see them. Check for dry, cracked skin. Look for blisters, cuts, scratches, or other sores. Check for redness, increased warmth, or tenderness when touching any area of your feet. Check for ingrown toenails, corns, and calluses. If you get a blister or sore from your shoes, do not pop it. Apply a bandage and wear a differentpair of shoes. Take Care of Your Toenails Cut toenails after bathing, when they are soft. Cut toenails straight across and smooth with a nail file. Avoid cutting into the corners of toes. Do not cut cuticles. If you have neuropathy (or decreased sensation in your feet) a hair designer should always cut your toenails. Be Careful When Exercising Walk and exercise in comfortable shoes. Do not exercise when you have open sores on your feet. Protect Your Feet With Shoes and Socks Never go barefoot. Always protect your feet by wearing shoes or hard-soled slippers or footwear. Avoid shoes with high heels and pointed toes. Avoid shoes that expose your toes or heels (such as open-toed shoes or sandals). These types of shoes increase your risk for injury and potential infections. Try on new footwear with the type of socks you usually wear. Do not wear new shoes for more than an hour at a time. Change your socks daily. Look and feel inside your shoes before putting them on to make sure there are no foreign objects orrough areas. Avoid tight socks. Wear natural-fiber socks (cotton, wool, or a cotton-wool blend). Wear special shoes if your health care provider recommends them. Wear shoes/boots that will protect your feet from various weather conditions (cold, moisture, etc.). Make sure your shoes fit properly. If you have neuropathy (nerve damage), you may not notice that your shoes are too tight. Perform the footwear test described below. Footwear Test Use this simple test to see if your shoes fit correctly: Stand on a piece of paper. (Make sure you are standing and not sitting, because your foot changes shape when you stand.) Trace the outline of your foot. Trace the outline of your shoe. Compare the tracings: Is the shoe too narrow? Is your foot crammed into the shoe? The shoe should be at least 1/2 inch longer than your longest toe and as wide as your foot. Proper Shoe Choices The following types of shoes are best for people with diabetes Closed toes and heels Leather uppers without a seam inside At least 1/2 inch extra space at the end of your longest toe Inside of shoe should be soft with no rough areas Outer sole should be made of stiff material Shoes should be at least as wide as your feet Tips for Foot Care in Diabetes Don't wait to treat a minor foot problem if you have diabetes. Follow your health care provider's guidelines and first aid guidelines. Report foot injuries and infections to your health care provider immediately. Check water temperature with your elbow, not your foot. Do not use a heating pad on your feet. Do not cross your legs. Do not self-treat your corns, calluses, or other foot problems. Go to your health care provider or hair designer to treat these conditions. documented in this encounterProvidence Hospital09-08-2022 Miscellaneous Notes* Telephone Encounter - Meño Ledbetter LPN - 07/26/2022 11:28 AM EDT [facility] 05/07/22 NOV 11/15/22 * Telephone Encounter - Marysol Vidal Pss - 07/26/2022 11:07 AM EDT Patient has been identified by name and date of : Yes Requested Prescriptions Pending Prescriptions Disp Refills losartan (COZAAR) 50 mg tablet 90 tablet 1 Sig: Take 1 tablet by mouth once daily. RX INSTRUCTIONS: Patient aware RX will be sent to pharmacy. No need to notify patient. Marysol Vidal Pss documented in this encounterProvidence Hospital08-12-2022 Miscellaneous Notes* Telephone Encounter - Dorinda Heart Pss - 06/29/2022 9:55 AM EDT Patient has been identified by name and date of : Yes Requested Prescriptions Pending Prescriptions Disp Refills doxazosin (CARDURA) 1 mg tablet 30 tablet 2 Sig: Take 1 tablet by mouth daily at bedtime. SAMANTHA-05/07/22 Labs-06/12/22 NOV-11/15/22 med filled 03/22/22 ends 06/20/22 RX INSTRUCTIONS: Patient aware RX will be sent to pharmacy. No need to notify patient. Dorinda Heart Pss documented in this encounterProvidence Hospital07-19-2022 Instructions* Patient Instructions* Shanthi Rangel MD - 06/05/2022 4:18 PM EDT - We will do blood tests and 24 hour urine collection at your convenience - We will also do bone density scan. Please call [phone] to schedule - Avoid calcium pills, but you can take some calcium from diet. The goal is 800- 1000 mg per day from diet alone Here is the estimated calcium content of a variety of foods: Produce Serving Size Estimated Calcium* Heather greens, frozen 8 oz 360 mg Broccoli dg 8 oz 200 mg Kale, frozen 8 oz 180 mg Soy Beans, green, boiled 8 oz 175 mg Bok Edda, cooked, boiled 8 oz 160 mg Figs, dried 2 figs 65 mg Broccoli, fresh, cooked 8 oz 60 mg Oranges 1 whole 55 mg Seafood Serving Size Estimated Calcium* Sardines, canned with bones 3 oz 325 mg Sultana, canned with bones 3 oz 180 mg Shrimp, canned 3 oz 125 mg Dairy Serving Size Estimated Calcium* Ricotta, part-skim 4 oz 335 mg Yogurt, plain, low-fat 6 oz 310 mg Milk, skim, low-fat, whole 8 oz 300 mg Yogurt with fruit, low-fat 6 oz 260 mg Mozzarella, part-skim 1 oz 210 mg Cheddar 1 oz 205 mg Yogurt, Russian 6 oz 200 mg Israeli Cheese 1 oz 195 mg Feta Cheese 4 oz 140 mg Cottage Cheese, 2% 4 oz 105 mg Frozen yogurt, vanilla 8 oz 105 mg Ice Cream, vanilla 8 oz 85 mg Parmesan 1 tbsp 55 mg Fortified Food Serving Size Estimated Calcium* [place] milk, rice milk or soy milk, fortified 8 oz 300 mg [place] juice and other fruit juices, fortified 8 oz 300 mg Tofu, prepared with calcium 4 oz 205 mg Waffle, frozen, fortified 2 pieces 200 mg Oatmeal, fortified 1 packet 140 mg Belgian muffin, fortified 1 muffin 100 mg Cereal, fortified 8 oz 100-1,000 mg Other Serving Size Estimated Calcium* Mac & cheese, frozen 1 package 325 mg Pizza, cheese, frozen 1 serving 115 mg Pudding, chocolate, prepared with 2% milk 4 oz 160 mg Beans, baked, canned 4 oz 160 mg documented in this encounterProvidence Hospital07-19-2022 History of Present illness Narrative* Shanthi Rangel MD - 06/05/2022 3:40 PM EDT Images from the original note were not included. ENDOCRINOLOGY CLINIC NOTE Mr. 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 Antony Espinoza for evaluation and management of hypercalcemia HPI In 10/2021, his corrected calcium was 10.9 with GFR 57. Labs in 04/2022 showed calcium 10.4 with no concomitant albumin, iCa 1.30, vitamin D 35.4 and PTH 85 Mr. Mullins denied muscle aches/pains or kidney stones, and there is no family history of calcium related issues. He had R hip fracture 3 years ago following a fall down 4 steps. 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 BPH (benign prostatic hypertrophy) with urinary obstruction 01/06/2013 Controlled type 2 diabetes mellitus without complication, without long-term current use of insulin (HCC) 07/24/2016 Degenerative disc disease, cervical 12/09/2015 Diabetes mellitus (HCC) 07/14/2010 Elevated alkaline phosphatase level 01/10/2021 01/09/21 alk phos 142 Gout 08/25/2012 History of splenectomy 02/07/2015 Hypertension Inguinal hernia 04/08/2014 LBBB (left bundle branch block) Lumbar disc disease with radiculopathy 04/06/2013 Mental disorder Mild cognitive impairment with memory loss 09/13/2015 Snoring spinal stenosis PAST SURGICAL HISTORY Procedure Laterality Date COLONOSCOPY FLX DX W/COLLJ SPEC WHEN PFRMD 04-06-03 Repeat in COLONOSCOPY FLX DX W/COLLJ SPEC WHEN PFRMD 02/17/2013 Colonoscopy COLONOSCOPY FLX DX W/COLLJ SPEC WHEN PFRMD 06/03/2018 Colonoscopy EGD 08/24/03 + hpylori PAST SURGICAL HISTORY OF 2001 back surgery PAST SURGICAL HISTORY OF 2000 back surgery PAST SURGICAL HISTORY OF Right 2018 hemiarthroplasty of hip RPR 1ST INGUN HRNA AGE 7 YRS/> REDUCIBLE 08/29/2020 Hernia repair, inguinal,left SPLENECTOMY TOTAL SEPARATE PROCEDURE 1984 Splenectomy TONSILLECTOMY PRIMARY/SECONDARY <AGE 14 Tonsillectomy FAMILY HISTORY Problem Relation Age of Onset Cancer Mother ovarian Heart Father COPD Sister Cancer Sister retroorbital Social History Tobacco Use Smoking status: Former Smoker Packs/day: 0.50 Years: 20.00 Pack years: 10.00 Types: Cigarettes Quit date: 05/21/1999 Years since quittin.0 Smokeless tobacco: Never Used Substance Use Topics Alcohol use: Yes Comment: occasionally Drug use: No (Not in a hospital admission) Allergies As of Date: 06/05/2022 Allergen Noted Reaction ALTACE [RAMIPRIL] 09/18/2005 GABAPENTIN 04/06/2013 Other: See Comments TOPROL XL [METOPROLOL SUCCINATE] 09/18/2005 Fully Assessed 05/07/2022 Current Outpatient Medications Medication Sig Dispense Refill losartan (COZAAR) 50 mg tablet Take 1 tablet by mouth once daily. 90 tablet 1 memantine (NAMENDA) 5 mg tablet take 1 tablet by mouth twice a day 60 tablet 5 doxazosin (CARDURA) 1 mg tablet Take 1 tablet by mouth daily at bedtime. 30 tablet 2 PARoxetine (PAXIL) 10 mg tablet Take 1 tablet by mouth once daily. 90 tablet 1 allopurinol (ZYLOPRIM) 300 mg tablet TAKE 1 TABLET BY MOUTH ONCE DAILY. FOR GOUT. 90 tablet 3 atorvastatin (LIPITOR) 10 mg tablet Take 1 tablet by mouth once daily. 90 tablet 3 finasteride (PROSCAR) 5 mg tablet Take 1 tablet by mouth once daily. 90 tablet 3 metFORMIN (GLUCOPHAGE) 500 mg tablet Take 1 tablet by mouth twice daily with meals. 180 tablet 3 donepezil (ARICEPT) 10 mg tablet Take 1 tablet by mouth daily at bedtime. 90 tablet 3 Current Facility-Administered Medications Medication Dose Route Frequency Provider Last Rate Last Admin perflutren lipid microspheres 1.3 mL in NaCl (PF) 0.9% 10 mL injection (DEFINITY) INTRAVENOUS DIRECTED PRAnika Holly MD sodium chloride 0.9 % (flush) 10 mL (BD POSIFLUSH) 10 mL INTRAVENOUS DIRECTED PRAnika Holly MD COMPLETE REVIEW OF SYSTEMS: 10 point review of systems was negative other than what is mentioned in the H&P PHYSICAL EXAM: 06/05/22 1549 BP: 151/66 BP Site: Left Arm BP Position: Sitting BP Cuff Size: Regular Adult Pulse: 62 SpO2: 95% Weight: 61.1 kg (134 lb 12.8 oz) General: NAD, alert and cooperative HEENT: EOMI, no proptosis/stare. Neck: supple with full ROM. No thyromegaly or palpable nodules. Cardiovascular: RRR, +S1 and S2, no MRG appreciated Lungs: Clear to auscultation bilaterally Abdomen: soft, non-tender, non-distended Extremities: No LE oedema Neuro: Deep tendon reflexes are normal with a normal relaxation phase. Psych: Normal affect MSK: No back tenderness Labs: Assessment and Recommendations: Mr. Mullins 82-year-old man presented for evaluation and management of hypercalcemia. He has hadmild hypercalcemia over the last few months with GFR in the 50s/60s, normal vitamin D and elevated PTH. This is therefore PTH dependent hypercalcemia, likely due to primary hyperparathyroidism. FHH is unlikely given the age of onset and lack of family history. I would like him to optimize his calcium intake to target 800-1000 mg of calcium per day from diet without using calcium supplements. This is important for bone health and for the accuracy of the tests I will check his CMP, ionized calcium, PTH, P, vitamin D and do a 24-hour urine collection for calcium. We will also do a bone density scan including the forearm. We discussed the management options of primary hyperparathyroidism the diagnosis is confirmed. These include observation with periodic monitoring, medical therapy and surgery. We discussed the indications for surgery which he does not meet at this point. He stated that he would like to avoid surgery if possible. We will discuss the management again after the work-up above. Dr. Espinoza is thanked for involving me in the care of this patient My final recommendations will be communicated back to the requesting physician by way of shared Medical record or letter to requesting physician via US mail. I spent 45 minutes in the visit, with more than 50% of the total [id number] time of the visit in counseling / coordination of care. This note was created using [employer] dictation software. You may find errors that were missed during proofreading. They are purely unintentional and if there are any concerns regarding this dictation, please do not hesitate to contact the dictating provider for clarification. Shanthi Rangel MD documented in this encounterProv[facility]07-07-[facility]22 Miscellaneous Notes* Telephone Encounter - Dorinda Light - 05/24/2022 11:33 AM EDT Done. Thank you, Dorinda Light * Telephone Encounter - Marylu Burgess LPN - 05/15/2022 9:05 AM EDT Phone call placed patient advised (see prior provider encounter) Patient verbalized understanding, agreed with plan of care, declined to have scheduled to today, sent to scheduling pool. Marylu Burgess LPN * Telephone Encounter - Meño Ledbetter LPN - 05/09/2022 2:15 PM EDT TC to pt, no answer, unable to leave message d/t voicemail box is full and can not accept messages. Meño Ledbetter LPN * Telephone Encounter - Antony Espinoza MD - 05/09/2022 1:25 PM EDT His labs are stable, except his calcium and parathyroid hormone are both up. Can be from an overactive parathyroid gland. Would recommend seeing endo documented in this encounterProv[facility] Hospital06-20-2022 Instructions* Patient Instructions* Antony Espinoza MD - 05/07/2022 10:59 AM EDT Do Your Daily Exercises. -per Dr. Espinoza. documented in this encounterProvidence Hospital06-20-2022 History of Present illness Narrative* Antony Espinoza MD - 05/07/2022 10:12 AM EDT Patient presents with: 6 Month Exam HPI: Patient presents today for office visit for follow up. Overall doing well. Did not get his labs from last time. Memory is stable. Still lives his . Has a cane and walker at home. Uses cane mostly. Does not do his physical therapy exercises. Has had some falls. No chest pain or shortness of breath. No edema. Does not check sugars at home. Still seeing cardiology, heme/onc Has not been back to urology. Has protein drinks at home. Does not like to eat much which can account for weight. Decline has slowed. See previous ov: CARDIO: Echo on 11/21/21, and follow up in 6 months. HTN: Patient is compliant with meds Yes Monitors bp at home: Yes. People come to the house and do vitals. Denies side effects: Increased frequency. Chest pain: No. Dyspnea: No. Off oxygen for a few weeks now- check pulse ox. Edema: No. Palpitations: No. Syncope: No. Headache: No. Dizziness: No. DM: Reports overall feeling well. Medication side effects: No. Home sugar check frequency/results: No. Hypoglycemic spells: No. Watching diet: Yes. Unexpected weight loss: During COVID, he lost 30-40 lbs. Have regained 20 lbs. Polyuria, polydipsia: Yes. Vision Changes: No. Foot lesions or numbness or pain: Some neuropathy in right foot. Nurses check foot for sores. Sees hair designer every 3 mo. ONCOLOGY:follow with Dr. Andrade. In remission. NEURO: Works with occupational therapy. Confused most about where things are in the house. Cognitively intact. Working on concentration games. PSYCH: Anxiety has been better. Hasn't had panic attack in a long time. Had labs done earlier which are pending. MEDICATIONS: Current Outpatient Medications Medication Sig losartan (COZAAR) 50 mg tablet Take 1 tablet by mouth once daily. memantine (NAMENDA) 5 mg tablet take 1 tablet by mouth twice a day doxazosin (CARDURA) 1 mg tablet Take 1 tablet by mouth daily at bedtime. PARoxetine (PAXIL) 10 mg tablet Take 1 tablet by mouth once daily. allopurinol (ZYLOPRIM) 300 mg tablet TAKE 1 TABLET BY MOUTH ONCE DAILY. FOR GOUT. atorvastatin (LIPITOR) 10 mg tablet Take 1 tablet by mouth once daily. finasteride (PROSCAR) 5 mg tablet Take 1 tablet by mouth once daily. metFORMIN (GLUCOPHAGE) 500 mg tablet Take 1 tablet by mouth twice daily with meals. donepezil (ARICEPT) 10 mg tablet Take 1 tablet by mouth daily at bedtime. 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 BPH (benign prostatic hypertrophy) with urinary obstruction 01/06/2013 Controlled type 2 diabetes mellitus without complication, without long-term current use of insulin (HCC) 07/24/2016 Degenerative disc disease, cervical 12/09/2015 Diabetes mellitus (HCC) 07/14/2010 Elevated alkaline phosphatase level 01/10/2021 01/09/21 alk phos 142 Gout 08/25/2012 History of splenectomy 02/07/2015 Hypertension Inguinal hernia 04/08/2014 LBBB (left bundle branch block) Lumbar disc disease with radiculopathy 04/06/2013 Mental disorder Mild cognitive impairment with memory loss 09/13/2015 Snoring spinal stenosis PAST SURGICAL HISTORY Procedure Laterality Date COLONOSCOPY FLX DX W/COLLJ SPEC WHEN PFRMD 04-06-03 Repeat in COLONOSCOPY FLX DX W/COLLJ SPEC WHEN PFRMD 02/17/2013 Colonoscopy COLONOSCOPY FLX DX W/COLLJ SPEC WHEN PFRMD 06/03/2018 Colonoscopy EGD 08/24/03 + hpylori PAST SURGICAL HISTORY OF 2002 back surgery PAST SURGICAL HISTORY OF 2001 back surgery PAST SURGICAL HISTORY OF Right 2018 hemiarthroplasty of hip RPR 1ST INGUN HRNA AGE 7 YRS/> REDUCIBLE 08/29/2020 Hernia repair, inguinal,left 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 TONSILLECTOMY PRIMARY/SECONDARY <AGE 12 Tonsillectomy FAMILY HISTORY Problem Relation Age of Onset Cancer Mother ovarian Heart Father COPD Sister Cancer Sister retroorbital Social History Tobacco Use Smoking status: Former Smoker Packs/day: 0.50 Years: 20.00 Pack years: 10.00 Types: Cigarettes Quit date: 05/21/1999 Years since quittin.9 Smokeless tobacco: Never Used Substance Use Topics Alcohol use: Yes Comment: occasionally Drug use: No Reviewed current medications, allergies, past medical history, surgical history, family history andsocial history today. REVIEW OF SYSTEMS All other reviewed and negative other than HPI. HEALTH MAINTENANCE: Reviewed health maintenance issues today and recommended the following in detail. DILATED RETINAL EXAM due on 03/10/2020 ADVANCE DIRECTIVE DISCUSSION-has dpoa and living will. is his surrogate. URINE ALBUMIN:CREATININE RATIO due on 01/09/2022 LDL CHOLESTEROL due on 01/09/2022 HBA1C due on 05/07/2022 VITALS: BP 138/72 Pulse (!) 56 Wt 60.3 kg (133 lb) BMI 24.33 kg/m Last 4 Encounter Wt Readings: Date: Wt: 11/06/2021 62.1 kg (137 lb) 10/30/2021 61.2 kg (135 lb) 09/26/2021 61.7 kg (136 lb) 01/09/2021 74.1 kg (163 lb 6.4 oz) PHYSICAL EXAMINATION: General appearance: Well appearing, alert, in no acute distress, well-hydrated, well nourished. Skin: Skin color, texture, turgor normal, no suspicious rashes or lesions Lungs: Lungs clear to auscultation. No wheezing, rhonchi, rales Heart: RRR without murmur, gallop, or rubs. No ectopy Abdomen: Normal abdominal exam, Abdomen soft, non-tender. Bowel sounds normal. No masses, organomegaly Extremities: No deformities, edema, skin discoloration, clubbing or cyanosis. Good capillary refill. Musculoskeletal: No joint swelling, deformity, or tenderness Peripheral pulses: Normal Neuro: Gait normal. Reflexes normal and symmetric. Sensation grossly intact. ASSESSMENT/PLAN: 1. Hypercalcemia - ICD9: 275.42, ICD10: E83.52 (primary diagnosis) - follow labs. - VITAMIN D 25 HYDROXY - PTH INTACT BLD - CALCIUM IONIZED BLOOD 2. Anemia, unspecified type - ICD9: 285.9, ICD10: D64.9 - check labs. - CBC + DIFF - IRON + TIBC - VITAMIN B12 BLOOD - FOLATE SERUM - FERRITIN BLD - FECAL OCCULT BLOOD TEST 3. Type 2 diabetes mellitus with diabetic polyneuropathy, without long-term current use of insulin (HCC) - ICD9: 250.60, 357.2, ICD10: E11.42 Controlled. - Continue current medications - HGB A1C 4. Primary hypertension - ICD9: 401.9, ICD10: I10 - good control - Continue current medication(s) - Goal of BP <130/80 5. Hyperlipidemia LDL goal <100 - ICD9: 272.4, ICD10: E78.5 - good control - Continue current medication. - LIPID PANEL BASIC 6. Cardiomyopathy, nonischemic (HCC) - ICD9: 425.4, ICD10: I42.8 - BASIC METABOLIC PNL 7. Controlled type 2 diabetes mellitus with microalbuminuria, without long-term current use of insulin (HCC) - ICD9: 250.40, 791.0, ICD10: E11.29, R80.9 Controlled. - Continue current medications - ALBUMIN/CREAT RATIO RND UR 8. 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 9. Benign prostatic hyperplasia, unspecified whether lower urinary tract symptoms present - ICD9: 600.00, ICD10: N40.0 - stable. 10. Arteriosclerosis of both carotid arteries - ICD9: 433.10, 433.30, ICD10: I65.23 - will follow. Antony Espinoza RTO in six months and prn. documented in this encounterProvidence Hospital05-31-2022 History of Present illness Narrative* Lori Goodman - 04/17/2022 8:26 AM EDT Last saw Dr. Espinoza: 11/06/21 Subjective: Patient presents to clinic c/o painful toenails. They state that the nails are especially painful with shoe gear and pressure. Patient admits to being diabetic. No other pedal complaints at this time. Patient states no change in medications or medical history since last visit. Objective: Patient presents to clinic ambulating in sneakers Vasc: DP and PT pulses are palpable bilateral. CFT is less than 5 seconds bilateral. Skin temperature is warm to cool proximal to distal bilateral. There is mild edema or varicosities noted. Neuro: Protective sensation is intact to the foot and toes when tested with the 5.07 SWM bilateral.Vibratory sensation is decreased at the hallux IPJ bilateral. The hallux is downgoing bilateral. Derm: Nails 1-5 b/l are painful, discolored-yellow, thick, crumbly, dystrophic and with subungal debris. Skin is of normal turgor, texture and hair growth is present bilateral. 2.1 cm x 2.0 cm brown lesion to left anterior leg. There are no hyperkeratosis, ulcerations, scars, verruca or other lesions noted. Ortho: Muscle strength is 5/5 for all pedal groups tested. Ankle joint DF is full with the knee extended with no pain or crepitus noted. 1st MPJ ROM is full bilateral. Hammertoes present to lesser toes of b/l feet Assessment: (B35.1) Onychomycosis (primary encounter diagnosis) (M79.675) Pain in toe of left foot (M79.674) Pain in toe of right foot (E11.42) Diabetic polyneuropathy associated with type 2 diabetes mellitus (HCC) (D22.9) Nevus Plan: Patient was seen and evaluated. Nails 1-5 bilateral were debrided in length and thickness. Continue with wider shoes for hammertoe Discussed lesion of left anterior leg. I am going to make referral to dermatology for evaluation and treatment. Given proximal extremity, I feel this is approaching the extreme of my scope so I will refer to derm. Patient prefers to stay in tito. Patient was instructed on the continued importance of diabetic foot care along with proper diet andkeeping their blood sugar under control to prevent complications. Patient is to RTC in 3-4 months. Lori Goodman DPM documented in this encounterProvidence Hospital05-31-2022 Instructions* Patient Instructions* Lori Joaquinjackie - 04/17/2022 8:26 AM EDT Diabetes Foot Care Instructions When you have diabetes, proper foot care is very important. Poor foot care may lead to amputation of a foot or leg. As a person with diabetes, you are more vulnerable to foot problems, because diabetes can damage your nerves and reduce blood flow to your feet. Here are some diabetes foot care tips to follow: Wash and Dry Your Feet Daily Use mild soaps Use warm water Pat your skin dry; do not rub. Thoroughly dry your feet. After washing, use lotion on your feet to prevent cracking. Do not put lotion between your toes. Examine Your Feet Each Day Check the tops and bottoms of your feet. Have someone else look at your feet if you cannot see them. Check for dry, cracked skin. Look for blisters, cuts, scratches, or other sores. Check for redness, increased warmth, or tenderness when touching any area of your feet. Check for ingrown toenails, corns, and calluses. If you get a blister or sore from your shoes, do not pop it. Apply a bandage and wear a differentpair of shoes. Take Care of Your Toenails Cut toenails after bathing, when they are soft. Cut toenails straight across and smooth with a nail file. Avoid cutting into the corners of toes. Do not cut cuticles. If you have neuropathy (or decreased sensation in your feet) a hair designer should always cut your toenails. Be Careful When Exercising Walk and exercise in comfortable shoes. Do not exercise when you have open sores on your feet. Protect Your Feet With Shoes and Socks Never go barefoot. Always protect your feet by wearing shoes or hard-soled slippers or footwear. Avoid shoes with high heels and pointed toes. Avoid shoes that expose your toes or heels (such as open-toed shoes or sandals). These types of shoes increase your risk for injury and potential infections. Try on new footwear with the type of socks you usually wear. Do not wear new shoes for more than an hour at a time. Change your socks daily. Look and feel inside your shoes before putting them on to make sure there are no foreign objects orrough areas. Avoid tight socks. Wear natural-fiber socks (cotton, wool, or a cotton-wool blend). Wear special shoes if your health care provider recommends them. Wear shoes/boots that will protect your feet from various weather conditions (cold, moisture, etc.). Make sure your shoes fit properly. If you have neuropathy (nerve damage), you may not notice that your shoes are too tight. Perform the footwear test described below. Footwear Test Use this simple test to see if your shoes fit correctly: Stand on a piece of paper. (Make sure you are standing and not sitting, because your foot changes shape when you stand.) Trace the outline of your foot. Trace the outline of your shoe. Compare the tracings: Is the shoe too narrow? Is your foot crammed into the shoe? The shoe should be at least 1/2 inch longer than your longest toe and as wide as your foot. Proper Shoe Choices The following types of shoes are best for people with diabetes Closed toes and heels Leather uppers without a seam inside At least 1/2 inch extra space at the end of your longest toe Inside of shoe should be soft with no rough areas Outer sole should be made of stiff material Shoes should be at least as wide as your feet Tips for Foot Care in Diabetes Don't wait to treat a minor foot problem if you have diabetes. Follow your health care provider's guidelines and first aid guidelines. Report foot injuries and infections to your health care provider immediately. Check water temperature with your elbow, not your foot. Do not use a heating pad on your feet. Do not cross your legs. Do not self-treat your corns, calluses, or other foot problems. Go to your health care provider or hair designer to treat these conditions. documented in this encounterProvidence Hospital05-27-2022 Miscellaneous Notes* Telephone Encounter - Luzmaria Jaime Ma - 04/13/2022 11:28 AM EDT Patient last visit with PCP 11/06/2021 Follow up appointment scheduled 05/07/22 Luzmaria Jaime Ma * Telephone Encounter - Marysol Long - 04/13/2022 10:02 AM EDT Patient has been identified by name and date of : Yes Pending Prescriptions Disp Refills LOSARTAN 50 MG TABLET 90 tablet 1 Sig: Take 1 tablet by mouth once daily. WALDEMAR: No RX INSTRUCTIONS: Patient aware RX will be sent to pharmacy. No need to notify patient. Marysol Long documented in this encounterProvidence Hospital05-05-2022 Miscellaneous Notes* Telephone Encounter - Marisol Birmingham Ma - 03/22/2022 3:22 PM EDT SAMANTHA 11/06/21 Namenda was sent in today * Telephone Encounter - Marysol Long - 03/22/2022 3:11 PM EDT Patient has been identified by name and date of : Yes Pending Prescriptions Disp Refills DOXAZOSIN 1 MG TABLET 30 tablet 2 Sig: Take 1 tablet by mouth daily at bedtime. WALDEMAR: No MEMANTINE 5 MG TABLET 60 tablet 5 Sig: Take 1 tablet by mouth twice daily. WALDEMAR: No RX INSTRUCTIONS: patient completely out of memantine 5 mg few days Patient aware RX will be sent to pharmacy. No need to notify patient. Marysol Long documented in this encounterProv[facility] Hospital05-04-2022 Miscellaneous Notes* Telephone Encounter - Maru Washburn LPN - 03/21/2022 5:54 PM EDT Patient phones requesting refills as follows: Pending Prescriptions Disp Refills MEMANTINE 5 MG TABLET 60 tablet 5 Sig: take 1 tablet by mouth twice a day WALDEMAR: Yes SAMANTHA-11/06/21 Labs-11/06/21 NOV-05/07/22 med filled 06/30/21 Please review and advise. Maru Washburn LPN documented in this encounterProvidence Hospital04-18-2022 Miscellaneous Notes* Telephone Encounter - NAILA Sparks - 03/05/2022 4:11 PM EDT Last OV on 11/06/2021 Appointment scheduled for 05/07/2022 Please advise. Thank you. NAILA Sparks * Telephone Encounter - Dorinda Heart Pss - 03/05/2022 4:03 PM EDT Patient has been identified by name and date of : Yes Pending Prescriptions Disp Refills PAROXETINE 10 MG TABLET 90 tablet 3 Sig: Take 1 tablet by mouth once daily. WALDEMAR: No RX INSTRUCTIONS: Patient aware RX will be sent to pharmacy. No need to notify patient. Dorinda Heart Pss documented in this encounterProvidence Hospital12-13-2021 History of Past illness Narrative* Problem Noted Date Resolved Date Shortness of breath 10/30/2021 03/25/2023 Personal history of fall 07/28/2020 023 Last Assessment & Plan: Assessment: hx, uses cane LBBB (left bundle branch block) 06/03/2018 03/25/2023 Last Assessment & Plan: Assessment: hx, per EKG, follows cardiology documented as of this encounter (statuses as of 03/25/2023) [facility] of Past illness Narrative* Problem Noted Date Resolved Date Shortness of breath 10/30/2021 03/25/2023 Personal history of fall 07/28/2020 023 Last Assessment & Plan: Assessment: hx, uses cane LBBB (left bundle branch block) 06/03/2018 03/25/2023 Last Assessment & Plan: Assessment: hx, per EKG, follows cardiology documented as of this encounter (statuses as of 03/25/2023) [facility] of Past illness Narrative* Problem Noted Date Resolved Date Shortness of breath 10/30/2021 03/25/2023 Personal history of fall 07/28/2020 023 Last Assessment & Plan: Assessment: hx, uses cane LBBB (left bundle branch block) 06/03/2018 03/25/2023 Last Assessment & Plan: Assessment: hx, per EKG, follows cardiology documented as of this encounter (statuses as of 03/27/2023) [facility] of Past illness Narrative* Problem Noted Date Resolved Date Shortness of breath 10/30/2021 03/25/2023 Personal history of fall 07/28/2020 023 Last Assessment & Plan: Assessment: hx, uses cane LBBB (left bundle branch block) 06/03/2018 03/25/2023 Last Assessment & Plan: Assessment: hx, per EKG, follows cardiology documented as of this encounter (statuses as of 03/27/2023) [facility] Past illness Narrative* Problem Noted Date Resolved Date Shortness of breath 10/30/2021 03/25/2023 Personal history of fall 07/28/2020 023 Last Assessment & Plan: Assessment: hx, uses cane LBBB (left bundle branch block) 06/03/2018 03/25/2023 Last Assessment & Plan: Assessment: hx, per EKG, follows cardiology documented as of this encounter (statuses as of 03/29/2023) [facility] Past illness Narrative* Problem Noted Date Resolved Date Shortness of breath 10/30/2021 03/25/2023 Personal history of fall 07/28/2020 023 Last Assessment & Plan: Assessment: hx, uses cane LBBB (left bundle branch block) 06/03/2018 03/25/2023 Last Assessment & Plan: Assessment: hx, per EKG, follows cardiology documented as of this encounter (statuses as of 03/30/2023) [facility] Past illness Narrative* Problem Noted Date Resolved Date Shortness of breath 10/30/2021 03/25/2023 Personal history of fall 07/28/2020 023 Last Assessment & Plan: Assessment: hx, uses cane LBBB (left bundle branch block) 06/03/2018 03/25/2023 Last Assessment & Plan: Assessment: hx, per EKG, follows cardiology documented as of this encounter (statuses as of 04/01/2023) [facility] Past [facility] Narrative* Problem Noted Date Resolved Date Shortness of breath 10/30/2021 03/25/2023 Personal history of fall 07/28/2020 023 Last Assessment & Plan: Assessment: hx, uses cane LBBB (left bundle branch block) 06/03/2018 03/25/2023 Last Assessment & Plan: Assessment: hx, per EKG, follows cardiology documented as of this encounter (statuses as of 04/03/2023) [facility] Past illness Narrative* Problem Noted Date Resolved Date Shortness of breath 10/30/2021 03/25/2023 Personal history of fall 07/28/2020 023 Last Assessment & Plan: Assessment: hx, uses cane LBBB (left bundle branch block) 06/03/2018 03/25/2023 Last Assessment & Plan: Assessment: hx, per EKG, follows cardiology documented as of this encounter (statuses as of 04/25/2023) [facility] Narrative* Problem Noted Date Resolved Date Shortness of breath 10/30/2021 03/25/2023 Personal history of fall 07/28/2020 023 Last Assessment & Plan: Assessment: hx, uses cane LBBB (left bundle branch block) 06/03/2018 03/25/2023 Last Assessment & Plan: Assessment: hx, per EKG, follows cardiology documented as of this encounter (statuses as of 04/17/2023) [facility] Past illness Narrative* Problem Noted Date Resolved Date Shortness of breath 10/30/2021 03/25/2023 Personal history of fall 07/28/2020 023 Last Assessment & Plan: Assessment: hx, uses cane LBBB (left bundle branch block) 06/03/2018 03/25/2023 Last Assessment & Plan: Assessment: hx, per EKG, follows cardiology documented as of this encounter (statuses as of 04/18/2023) [facility] History of Past illness Narrative* Problem Noted Date Resolved Date Shortness of breath 10/30/2021 03/25/2023 Personal history of fall 07/28/2020 023 Last Assessment & Plan: Assessment: hx, uses cane LBBB (left bundle branch block) 06/03/2018 03/25/2023 Last Assessment & Plan: Assessment: hx, per EKG, follows cardiology documented as of this encounter (statuses as of 04/19/2023) [address]13-2021 History of Past illness Narrative* Problem Noted Date Resolved Date Shortness of breath 10/30/2021 03/25/2023 Personal history of fall 07/28/2020 023 Last Assessment & Plan: Assessment: hx, uses cane LBBB (left bundle branch block) 06/03/2018 03/25/2023 Last Assessment & Plan: Assessment: hx, per EKG, follows cardiology documented as of this encounter (statuses as of 04/23/2023) [facility] History of Past illness Narrative* Problem Noted Date Resolved Date Shortness of breath 10/30/2021 03/25/2023 Personal history of fall 07/28/2020 023 Last Assessment & Plan: Assessment: hx, uses cane LBBB (left bundle branch block) 06/03/2018 03/25/2023 Last Assessment & Plan: Assessment: hx, per EKG, follows cardiology documented as of this encounter (statuses as of 04/23/2023) [facility] History of Past illness Narrative* Problem Noted Date Resolved Date Shortness of breath 10/30/2021 03/25/2023 Personal history of fall 07/28/2020 023 Last Assessment & Plan: Assessment: hx, uses cane LBBB (left bundle branch block) 06/03/2018 03/25/2023 Last Assessment & Plan: Assessment: hx, per EKG, follows cardiology documented as of this encounter (statuses as of 04/24/2023) [facility] History of Past illness Narrative* Problem Noted Date Resolved Date Shortness of breath 10/30/2021 03/25/2023 Personal history of fall 07/28/2020 023 Last Assessment & Plan: Assessment: hx, uses cane LBBB (left bundle branch block) 06/03/2018 03/25/2023 Last Assessment & Plan: Assessment: hx, per EKG, follows cardiology documented as of this encounter (statuses as of 05/02/2023) [facility] History of Past illness Narrative* Problem Noted Date Resolved Date Shortness of breath 10/30/2021 03/25/2023 Personal history of fall 07/28/2020 023 Last Assessment & Plan: Assessment: hx, uses cane LBBB (left bundle branch block) 06/03/2018 03/25/2023 Last Assessment & Plan: Assessment: hx, per EKG, follows cardiology documented as of this encounter (statuses as of 05/03/2023) [facility] History of Past illness Narrative* Problem Noted Date Resolved Date Shortness of breath 10/30/2021 03/25/2023 Personal history of fall 07/28/2020 023 Last Assessment & Plan: Assessment: hx, uses cane LBBB (left bundle branch block) 06/03/2018 03/25/2023 Last Assessment & Plan: Assessment: hx, per EKG, follows cardiology documented as of this encounter (statuses as of 05/03/2023) [facility] History of Past illness Narrative* Problem Noted Date Resolved Date Shortness of breath 10/30/2021 03/25/2023 Personal history of fall 07/28/2020 05/2 023 Last Assessment & Plan: Assessment: hx, uses cane LBBB (left bundle branch block) 06/03/2018 03/25/2023 Last Assessment & Plan: Assessment: hx, per EKG, follows cardiology documented as of this encounter (statuses as of 05/10/2023) [facility] History of Past illness Narrative* Problem Noted Date Resolved Date Shortness of breath 10/30/2021 03/25/2023 Personal history of fall 07/28/20202 023 Last Assessment & Plan: Assessment: hx, uses cane LBBB (left bundle branch block) 06/03/2018 03/25/2023 Last Assessment & Plan: Assessment: hx, per EKG, follows cardiology documented as of this encounter (statuses as of 05/15/2023) [facility]11-09-2021 History of Present illness Narrative* Lorri Thomas RT(R) - 09/26/2021 2:40 PM EST Radiology Service Progress Note PATIENT NAME: Michael Mullins DATE OF SERVICE: September 26, 2021 TIME: 2:52 PM PATIENT IDENTITY VERIFICATION COMPLETED USING TWO (2) IDENTIFIERS: Name and Date of confirmedby patient verbally. FALL SCREENING: Has the patient had 2 falls in the last year or 1 fall with injury or currently using an Ambulatory Assistive Device (Walker, Cane, Wheelchair, Crutches, etc.)? Yes, Patient High Riskfor Falls What interventions were put in place to prevent falls during this visit? Offered Assistance with Transfers/Clothing and Instructed Patient to Remain Seated (Not on Exam Table) Until Exam PATIENT GENDER DATA: Male PATIENT RELEVANT IMPLANT DATA REVIEWED: Not Applicable RADIOLOGY DEPARTMENT: General X-ray: Exam(s) Completed: Chest X-Ray PERIPHERAL IV DATA: Not applicable SIGNED BY: RT Yoshi(R) September 26, 2021 2:52 PM [facility] Past illness Narrative* Problem Noted Date Resolved Date History of falling 07/28/2020 11/15/2022 documented as of this encounter (statuses as of 11/24/2022) [facility] History of Past illness Narrative* Problem Noted Date Resolved Date History of falling 07/28/2020 11/15/2022 documented as of this encounter (statuses as of 11/26/2022) [facility] History of Past illness Narrative* Problem Noted Date Resolved Date History of falling 07/28/2020 11/15/2022 documented as of this encounter (statuses as of 12/07/2022) [place] [id number] History of Past illness Narrative* Problem Noted Date Resolved Date History of falling 07/28/2020 11/15/2022 documented as of this encounter (statuses as of 12/13/2022) [place] [id number] History of Past illness Narrative* Problem Noted Date Resolved Date History of falling 07/28/2020 11/15/2022 documented as of this encounter (statuses as of 12/18/2022) [place] [id number] History of Past illness Narrative* Problem Noted Date Resolved Date History of falling 07/28/2020 11/15/2022 documented as of this encounter (statuses as of 12/20/2022) [place] [id number] History of Past illness Narrative* Problem Noted Date Resolved Date History of falling 07/28/2020 11/15/2022 documented as of this encounter (statuses as of 12/27/2022) [place] [id number] History of Past illness Narrative* Problem Noted Date Resolved Date History of falling 07/28/2020 11/15/2022 documented as of this encounter (statuses as of 12/27/2022) [place] [id number] History of Past illness Narrative* Problem Noted Date Resolved Date History of falling 07/28/2020 11/15/2022 documented as of this encounter (statuses as of 12/28/2022) [place] [id number] History of Past illness Narrative* Problem Noted Date Resolved Date History of falling 07/28/2020 11/15/2022 documented as of this encounter (statuses as of 12/28/2022) [place] [id number] History of Past illness Narrative* Problem Noted Date Resolved Date History of falling 07/28/2020 11/15/2022 documented as of this encounter (statuses as of 12/28/2022) [place] [id number] History of Past illness Narrative* Problem Noted Date Resolved Date History of falling 07/28/2020 11/15/2022 documented as of this encounter (statuses as of 01/30/2023) [place] [id number] History of Past illness Narrative* Problem Noted Date Resolved Date History of falling 07/28/2020 11/15/2022 documented as of this encounter (statuses as of 02/08/2023) [facility] Diagnosis Anxiety state Anxiety state, unspecified [facility] Diagnosis Onychomycosis- Primary Dermatophytosis of nail Pain in toe of left foot Pain in limb Pain in toe of right foot Pain in limb Diabetic polyneuropathy associated with type 2 diabetes mellitus (HCC) Hyperkeratosis Acquired keratoderma Nevus Benign neoplasm of skin, site unspecified [facility] Diagnosis Hypercalcemia- Primary Anemia, unspecified type Type 2 diabetes mellitus with diabetic polyneuropathy, without long-term current use of insulin (HCC) Primary hypertension Unspecified essential hypertension Hyperlipidemia LDL goal <100 Other and unspecified hyperlipidemia Cardiomyopathy, nonischemic (HCC) Other primary cardiomyopathies Controlled type 2 diabetes mellitus with microalbuminuria, without 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 Benign prostatic hyperplasia, unspecified whether lower urinary tract symptoms present Arteriosclerosis of both carotid arteries Renal insufficiency Unspecified disorder of kidney and ureter [facility] Diagnosis Hypercalcemia- Primary [facility] Diagnosis Hyperparathyroidism (HCC)- Primary Hyperparathyroidism, unspecified Hypercalcemia [facility] Diagnosis Onychomycosis- Primary Dermatophytosis of nail Pain in toe of left foot Pain in limb Pain in toe of right foot Pain in limb Diabetic polyneuropathy associated with type 2 diabetes mellitus (HCC) Hyperkeratosis Acquired keratoderma Nevus Benign neoplasm of skin, site unspecified [facility] Hyperlipidemia LDL goal <100 Other and unspecified hyperlipidemia Anxiety state Anxiety state, unspecified [facility] Diagnosis Benign prostatic hyperplasia, unspecified whether lower urinary tract symptoms present- Primary [facility] Diagnosis Primary hypertension- Primary Unspecified essential hypertension Atherosclerosis of [place] coronary artery of [place] heart without angina pectoris Hyperlipidemia LDL goal <100 Other and unspecified hyperlipidemia LBBB (left bundle branch block) Other left bundle branch block Cardiomyopathy, nonischemic (HCC) Other primary cardiomyopathies documented in this encounter [facility] note* Diagnosis Hyperlipidemia LDL goal <100 Other and unspecified hyperlipidemia documented in this encounter [facility] note* Diagnosis Hypercalcemia- Primary Primary hyperparathyroidism (HCC) Primary hyperparathyroidism documented in this encounter [facility] note* Diagnosis Onychomycosis- Primary Dermatophytosis of nail Pain in toe of left foot Pain in limb Pain in toe of right foot Pain in limb Diabetic polyneuropathy associated with type 2 diabetes mellitus (HCC) Xerosis cutis Other specified disease of sebaceous glands documented in this encounter [facility] note* Diagnosis Hyperparathyroidism (HCC)- Primary Hyperparathyroidism, unspecified documented in this encounter [facility] note* Diagnosis Primary hyperparathyroidism (HCC) Primary hyperparathyroidism documented in this encounter [facility] note* Diagnosis Hypercalcemia Hyperparathyroidism (HCC) Hyperparathyroidism, unspecified documented in this encounter [facility] note* Diagnosis Hypercalcemia documented in this encounter [facility] note* Diagnosis Hyperparathyroidism (HCC)- Primary Hyperparathyroidism, unspecified Hyperparathyroidism (HCC) Hyperparathyroidism, unspecified documented in this encounter [facility] note* Diagnosis Controlled type 2 diabetes mellitus with microalbuminuria, without long-term current use of insulin (HCC) Hyperparathyroidism (HCC) Hyperparathyroidism, unspecified documented in this encounter [facility] note* Diagnosis Gout, unspecified cause, unspecified chronicity, unspecified site Hyperparathyroidism (HCC) Hyperparathyroidism, unspecified documented in this encounter [facility] note* Diagnosis Hyperparathyroidism (HCC)- Primary Hyperparathyroidism, unspecified documented in this encounter [facility] note* Diagnosis Hyperparathyroidism (HCC)- Primary Hyperparathyroidism, unspecified [facility]* Diagnosis Onset Date Resolution Status Generalized weakness acute Inability to walk acute Hypertension [facility] Work Phone: Evaluation note* Diagnosis Onset Date Resolution Status Effusion, right knee acute Generalized weakness acute Inability to walk acute Hypertension [facility] Work Phone: Evaluation note* Diagnosis Benign prostatic hyperplasia with urinary obstruction- Primary 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, without long-term current use of insulin (HCC) [facility] Osteoarthritis of both knees, unspecified osteoarthritis type- Primary Type 2 diabetes mellitus with diabetic polyneuropathy, without long-term current use of insulin (HCC) Mild cognitive impairment with memory loss Mild cognitive impairment, so stated Lumbar disc disease with radiculopathy Displacement of lumbar intervertebral disc without myelopathy Atherosclerosis of [place] coronary artery of [place] heart without angina pectoris Cardiomyopathy, nonischemic (HCC) Other primary cardiomyopathies Controlled type 2 diabetes mellitus with microalbuminuria, without long-term current use of insulin (HCC) 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 Urinary retention Retention of urine, unspecified Debility Debility, unspecified Anxiety state Anxiety state, unspecified [facility] Diagnosis Benign prostatic hyperplasia with urinary obstruction- Primary [facility] Diagnosis Benign prostatic hyperplasia with urinary obstruction- Primary Nocturia Poor urinary stream Slowing of urinary stream [facility] Diagnosis Benign prostatic hyperplasia with urinary retention- Primary Poor urinary stream Slowing of urinary stream BPH with obstruction/lower urinary tract symptoms Hypertrophy of prostate with urinary obstruction and other lower urinary tract symptoms (LUTS) Retention of urine, unspecified [facility] Diagnosis Pre-op examination Preoperative examination, unspecified Benign prostatic hyperplasia with urinary retention Retention of urine, unspecified Hyperlipidemia LDL goal <100 Other and unspecified hyperlipidemia Primary hypertension Unspecified essential hypertension Atherosclerosis of [place] coronary artery of [place] heart without angina pectoris Cardiomyopathy, nonischemic (HCC) Other primary cardiomyopathies Type 2 diabetes mellitus with other specified complication, without long-term current use of insulin (HCC) Iron deficiency anemia, unspecified iron deficiency anemia type Arteriosclerosis of both carotid arteries Mild cognitive impairment with memory loss Mild cognitive impairment, so stated BPH with obstruction/lower urinary tract symptoms Hypertrophy of prostate with urinary obstruction and other lower urinary tract symptoms (LUTS) Retention of urine, unspecified [facility] Diagnosis Urinary retention- Primary Retention of urine, unspecified Anemia, unspecified type Mild cognitive impairment with memory loss Mild cognitive impairment, so stated Atherosclerosis of [place] coronary artery of [place] heart without angina pectoris Cardiomyopathy, nonischemic (HCC) Other primary cardiomyopathies Type 2 diabetes mellitus with other specified complication, without 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 Benign prostatic hyperplasia, unspecified whether lower urinary tract symptoms present BPH with obstruction/lower urinary tract symptoms Hypertrophy of prostate with urinary obstruction and other lower urinary tract symptoms (LUTS) Retention of urine, unspecified [facility] Benign prostatic hyperplasia with urinary retention- Primary [facility] Diagnosis Benign prostatic hyperplasia with urinary retention- Primary [facility] Diagnosis Left posterior capsular opacification- Primary After-cataract, unspecified Pseudophakia Lens replaced by other means Amblyopia, right eye Amblyopia, unspecified Hypertensive retinopathy, bilateral [facility] MOISES (acute kidney injury) ([facility])- Primary Acute kidney failure, unspecified Anemia, unspecified type [facility]* Diagnosis Onychomycosis- Primary Dermatophytosis of nail Pain in toe of left foot Pain in limb Pain in toe of right foot Pain in limb Xerosis cutis Other specified disease of sebaceous glands Callus of foot Corns and callosities Hammer toe of left foot Diabetic polyneuropathy associated with type 2 diabetes mellitus (HCC) [facility]* Diagnosis Benign prostatic hyperplasia with urinary obstruction [facility] Diagnosis Gout, unspecified cause, unspecified chronicity, unspecified site Anxiety state Anxiety state, unspecified [facility] Diagnosis Onychomycosis- Primary Dermatophytosis of nail Pain in toe of left foot Pain in limb Pain in toe of right foot Pain in limb Callus of foot Corns and callosities Diabetic polyneuropathy associated with type 2 diabetes mellitus (HCC) Hammer toe of left foot [facility] Diagnosis Pre-operative examination- Primary Preoperative examination, unspecified Non-recurrent unilateral inguinal hernia without obstruction or gangrene Mild cognitive impairment with memory loss Mild cognitive impairment, so stated LBBB (left bundle branch block) Other left bundle branch block Hyperlipidemia LDL goal <100 Other and unspecified hyperlipidemia Essential hypertension, benign Atherosclerosis of coronary artery of [place] heart without angina pectoris, unspecified vessel or lesion type Cardiomyopathy, nonischemic (HCC) Other primary cardiomyopathies 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, without long-term current use of insulin (HCC) (HCC) 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 Arteriosclerosis of both carotid arteries Anxiety state Anxiety state, unspecified Pneumonia due to COVID-19 virus Pre-operative examination- Primary Preoperative examination, unspecified Cardiomyopathy, nonischemic (HCC) Other primary cardiomyopathies Type 2 diabetes mellitus with diabetic polyneuropathy, without long-term current use of insulin (HCC) Primary hypertension Unspecified essential hypertension Mild cognitive impairment with memory loss Mild cognitive impairment, so stated Spinal stenosis of lumbar region, unspecified whether neurogenic claudication present Degenerative disc disease, cervical Degeneration of cervical intervertebral disc Atherosclerosis of [place] coronary artery of [place] heart without angina pectoris Benign prostatic hyperplasia, unspecified whether lower urinary tract symptoms present Arteriosclerosis of both carotid arteries Hyperlipidemia LDL goal <100 Other and unspecified hyperlipidemia LBBB (left bundle branch block) Other left bundle branch block 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 Anxiety state Anxiety state, unspecified History of splenectomy Other acquired absence of organ Personal history of fall Iron deficiency anemia, unspecified iron deficiency anemia type Pre-op examination Preoperative examination, unspecified Benign prostatic hyperplasia with urinary retention Retention of urine, unspecified Hyperlipidemia LDL goal <100 Other and unspecified hyperlipidemia Primary hypertension Unspecified essential hypertension Atherosclerosis of [place] coronary artery of [place] heart without angina pectoris Cardiomyopathy, nonischemic (HCC) Other primary cardiomyopathies Type 2 diabetes mellitus with other specified complication, without long-term current use of insulin (HCC) Iron deficiency anemia, unspecified iron deficiency anemia type Arteriosclerosis of both carotid arteries Mild cognitive impairment with memory loss Mild cognitive impairment, so stated [facility] Diagnosis Pre-operative examination- Primary Preoperative examination, unspecified Non-recurrent unilateral inguinal hernia without obstruction or gangrene Mild cognitive impairment with memory loss Mild cognitive impairment, so stated LBBB (left bundle branch block) Other left bundle branch block Hyperlipidemia LDL goal <100 Other and unspecified hyperlipidemia Essential hypertension, benign Atherosclerosis of coronary artery of [place] heart without angina pectoris, unspecified vessel or lesion type Cardiomyopathy, nonischemic (HCC) Other primary cardiomyopathies 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, without long-term current use of insulin (HCC) (HCC) 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 Arteriosclerosis of both carotid arteries Anxiety state Anxiety state, unspecified Pre-operative examination- Primary Preoperative examination, unspecified Cardiomyopathy, nonischemic (HCC) Other primary cardiomyopathies Type 2 diabetes mellitus with diabetic polyneuropathy, without long-term current use of insulin (HCC) Primary hypertension Unspecified essential hypertension Mild cognitive impairment with memory loss Mild cognitive impairment, so stated Spinal stenosis of lumbar region, unspecified whether neurogenic claudication present Degenerative disc disease, cervical Degeneration of cervical intervertebral disc Atherosclerosis of [place] coronary artery of [place] heart without angina pectoris Benign prostatic hyperplasia, unspecified whether lower urinary tract symptoms present Arteriosclerosis of both carotid arteries Hyperlipidemia LDL goal <100 Other and unspecified hyperlipidemia LBBB (left bundle branch block) Other left bundle branch block 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 Anxiety state Anxiety state, unspecified History of splenectomy Other acquired absence of organ Personal history of fall Iron deficiency anemia, unspecified iron deficiency anemia type Pre-op examination Preoperative examination, unspecified Benign prostatic hyperplasia with urinary retention Retention of urine, unspecified Hyperlipidemia LDL goal <100 Other and unspecified hyperlipidemia Primary hypertension Unspecified essential hypertension Atherosclerosis of [place] coronary artery of [place] heart without angina pectoris Cardiomyopathy, nonischemic (HCC) Other primary cardiomyopathies Type 2 diabetes mellitus with other specified complication, without long-term current use of insulin (HCC) Iron deficiency anemia, unspecified iron deficiency anemia type Arteriosclerosis of both carotid arteries Mild cognitive impairment with memory loss Mild cognitive impairment, so stated Onychomycosis- Primary Dermatophytosis of nail Pain in toe of left foot Pain in limb Pain in toe of right foot Pain in limb Diabetic polyneuropathy associated with type 2 diabetes mellitus (HCC) Hammer toe of left [facility] Pre-operative examination- Primary Preoperative examination, unspecified Non-recurrent unilateral inguinal hernia without obstruction or gangrene Mild cognitive impairment with memory loss Mild cognitive impairment, so stated LBBB (left bundle branch block) Other left bundle branch block Hyperlipidemia LDL goal <100 Other and unspecified hyperlipidemia Essential hypertension, benign Atherosclerosis of coronary artery of [place] heart without angina pectoris, unspecified vessel or lesion type Cardiomyopathy, nonischemic (HCC) Other primary cardiomyopathies 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, without long-term current use of insulin (HCC) (HCC) 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 Arteriosclerosis of both carotid arteries Anxiety state Anxiety state, unspecified Pre-operative examination- Primary Preoperative examination, unspecified Cardiomyopathy, nonischemic (HCC) Other primary cardiomyopathies Type 2 diabetes mellitus with diabetic polyneuropathy, without long-term current use of insulin (HCC) Primary hypertension Unspecified essential hypertension Mild cognitive impairment with memory loss Mild cognitive impairment, so stated Spinal stenosis of lumbar region, unspecified whether neurogenic claudication present Degenerative disc disease, cervical Degeneration of cervical intervertebral disc Atherosclerosis of [place] coronary artery of [place] heart without angina pectoris Benign prostatic hyperplasia, unspecified whether lower urinary tract symptoms present Arteriosclerosis of both carotid arteries Hyperlipidemia LDL goal <100 Other and unspecified hyperlipidemia LBBB (left bundle branch block) Other left bundle branch block 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 Anxiety state Anxiety state, unspecified History of splenectomy Other acquired absence of organ Personal history of fall Iron deficiency anemia, unspecified iron deficiency anemia type Pre-op examination Preoperative examination, unspecified Benign prostatic hyperplasia with urinary retention Retention of urine, unspecified Hyperlipidemia LDL goal <100 Other and unspecified hyperlipidemia Primary hypertension Unspecified essential hypertension Atherosclerosis of [place] coronary artery of [place] heart without angina pectoris Cardiomyopathy, nonischemic (HCC) Other primary cardiomyopathies Type 2 diabetes mellitus with other specified complication, without long-term current use of insulin (HCC) Iron deficiency anemia, unspecified iron deficiency anemia type Arteriosclerosis of both carotid arteries Mild cognitive impairment with memory loss Mild cognitive impairment, so stated Benign prostatic hyperplasia with urinary obstruction- Primary Nocturia Incomplete bladder emptying [facility] Diagnosis Pre-operative examination- Primary Preoperative examination, unspecified Non-recurrent unilateral inguinal hernia without obstruction or gangrene Mild cognitive impairment with memory loss Mild cognitive impairment, so stated LBBB (left bundle branch block) Other left bundle branch block Hyperlipidemia LDL goal <100 Other and unspecified hyperlipidemia Essential hypertension, benign Atherosclerosis of coronary artery of [place] heart without angina pectoris, unspecified vessel or lesion type Cardiomyopathy, nonischemic (HCC) Other primary cardiomyopathies 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, without long-term current use of insulin (HCC) (HCC) 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 Arteriosclerosis of both carotid arteries Anxiety state Anxiety state, unspecified Pre-operative examination- Primary Preoperative examination, unspecified Cardiomyopathy, nonischemic (HCC) Other primary cardiomyopathies Type 2 diabetes mellitus with diabetic polyneuropathy, without long-term current use of insulin (HCC) Primary hypertension Unspecified essential hypertension Mild cognitive impairment with memory loss Mild cognitive impairment, so stated Spinal stenosis of lumbar region, unspecified whether neurogenic claudication present Degenerative disc disease, cervical Degeneration of cervical intervertebral disc Atherosclerosis of [place] coronary artery of [place] heart without angina pectoris Benign prostatic hyperplasia, unspecified whether lower urinary tract symptoms present Arteriosclerosis of both carotid arteries Hyperlipidemia LDL goal <100 Other and unspecified hyperlipidemia LBBB (left bundle branch block) Other left bundle branch block 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 Anxiety state Anxiety state, unspecified History of splenectomy Other acquired absence of organ Personal history of fall Iron deficiency anemia, unspecified iron deficiency anemia type Pre-op examination Preoperative examination, unspecified Benign prostatic hyperplasia with urinary retention Retention of urine, unspecified Hyperlipidemia LDL goal <100 Other and unspecified hyperlipidemia Primary hypertension Unspecified essential hypertension Atherosclerosis of [place] coronary artery of [place] heart without angina pectoris Cardiomyopathy, nonischemic (HCC) Other primary cardiomyopathies Type 2 diabetes mellitus with other specified complication, without long-term current use of insulin (HCC) Iron deficiency anemia, unspecified iron deficiency anemia type Arteriosclerosis of both carotid arteries Mild cognitive impairment with memory loss Mild cognitive impairment, so stated Primary hypertension- Primary Unspecified essential hypertension Encounter for immunization Need for other specified prophylactic vaccination against single bacterial disease Atherosclerosis of [place] coronary artery of [place] heart without angina pectoris Hyperlipidemia LDL goal <100 Other and unspecified hyperlipidemia Cardiomyopathy, nonischemic (HCC) Other primary cardiomyopathies Chronic systolic heart failure (HCC) Chronic systolic heart failure Mild cognitive impairment with memory loss Mild cognitive impairment, so stated Lumbar disc disease with radiculopathy Displacement of lumbar intervertebral disc without myelopathy Type 2 diabetes mellitus with other specified complication, without long-term current use of insulin (HCC) BPH with urinary obstruction Hypertrophy of prostate with urinary obstruction and other lower urinary tract symptoms (LUTS) Iron deficiency anemia, unspecified iron deficiency anemia type 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 Elevated alkaline phosphatase level Other nonspecific abnormal serum enzyme levels Screening for depression Gout, unspecified cause, unspecified chronicity, unspecified site [facility] Diagnosis Pre-operative examination- Primary Preoperative examination, unspecified Non-recurrent unilateral inguinal hernia without obstruction or gangrene Mild cognitive impairment with memory loss Mild cognitive impairment, so stated LBBB (left bundle branch block) Other left bundle branch block Hyperlipidemia LDL goal <100 Other and unspecified hyperlipidemia Essential hypertension, benign Atherosclerosis of coronary artery of [place] heart without angina pectoris, unspecified vessel or lesion type Cardiomyopathy, nonischemic (HCC) Other primary cardiomyopathies 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, without long-term current use of insulin (HCC) (HCC) 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 Arteriosclerosis of both carotid arteries Anxiety state Anxiety state, unspecified Pre-operative examination- Primary Preoperative examination, unspecified Cardiomyopathy, nonischemic (HCC) Other primary cardiomyopathies Type 2 diabetes mellitus with diabetic polyneuropathy, without long-term current use of insulin (HCC) Primary hypertension Unspecified essential hypertension Mild cognitive impairment with memory loss Mild cognitive impairment, so stated Spinal stenosis of lumbar region, unspecified whether neurogenic claudication present Degenerative disc disease, cervical Degeneration of cervical intervertebral disc Atherosclerosis of [place] coronary artery of [place] heart without angina pectoris Benign prostatic hyperplasia, unspecified whether lower urinary tract symptoms present Arteriosclerosis of both carotid arteries Hyperlipidemia LDL goal <100 Other and unspecified hyperlipidemia LBBB (left bundle branch block) Other left bundle branch block 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 Anxiety state Anxiety state, unspecified History of splenectomy Other acquired absence of organ Personal history of fall Iron deficiency anemia, unspecified iron deficiency anemia type Pre-op examination Preoperative examination, unspecified Benign prostatic hyperplasia with urinary retention Retention of urine, unspecified Hyperlipidemia LDL goal <100 Other and unspecified hyperlipidemia Primary hypertension Unspecified essential hypertension Atherosclerosis of [place] coronary artery of [place] heart without angina pectoris Cardiomyopathy, nonischemic (HCC) Other primary cardiomyopathies Type 2 diabetes mellitus with other specified complication, without long-term current use of insulin (HCC) Iron deficiency anemia, unspecified iron deficiency anemia type Arteriosclerosis of both carotid arteries Mild cognitive impairment with memory loss Mild cognitive impairment, so stated Stage 3 chronic kidney disease, unspecified whether stage 3a or 3b CKD (HCC)- Primary [facility] Diagnosis Pre-operative examination- Primary Preoperative examination, unspecified Non-recurrent unilateral inguinal hernia without obstruction or gangrene Mild cognitive impairment with memory loss Mild cognitive impairment, so stated LBBB (left bundle branch block) Other left bundle branch block Hyperlipidemia LDL goal <100 Other and unspecified hyperlipidemia Essential hypertension, benign Atherosclerosis of coronary artery of [place] heart without angina pectoris, unspecified vessel or lesion type Cardiomyopathy, nonischemic (HCC) Other primary cardiomyopathies 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, without long-term current use of insulin (HCC) (HCC) 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 Arteriosclerosis of both carotid arteries Anxiety state Anxiety state, unspecified Pre-operative examination- Primary Preoperative examination, unspecified Cardiomyopathy, nonischemic (HCC) Other primary cardiomyopathies Type 2 diabetes mellitus with diabetic polyneuropathy, without long-term current use of insulin (HCC) Primary hypertension Unspecified essential hypertension Mild cognitive impairment with memory loss Mild cognitive impairment, so stated Spinal stenosis of lumbar region, unspecified whether neurogenic claudication present Degenerative disc disease, cervical Degeneration of cervical intervertebral disc Atherosclerosis of [place] coronary artery of [place] heart without angina pectoris Benign prostatic hyperplasia, unspecified whether lower urinary tract symptoms present Arteriosclerosis of both carotid arteries Hyperlipidemia LDL goal <100 Other and unspecified hyperlipidemia LBBB (left bundle branch block) Other left bundle branch block 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 Anxiety state Anxiety state, unspecified History of splenectomy Other acquired absence of organ Personal history of fall Iron deficiency anemia, unspecified iron deficiency anemia type Pre-op examination Preoperative examination, unspecified Benign prostatic hyperplasia with urinary retention Retention of urine, unspecified Hyperlipidemia LDL goal <100 Other and unspecified hyperlipidemia Primary hypertension Unspecified essential hypertension Atherosclerosis of [place] coronary artery of [place] heart without angina pectoris Cardiomyopathy, nonischemic (HCC) Other primary cardiomyopathies Type 2 diabetes mellitus with other specified complication, without long-term current use of insulin (HCC) Iron deficiency anemia, unspecified iron deficiency anemia type Arteriosclerosis of both carotid arteries Mild cognitive impairment with memory loss Mild cognitive impairment, so stated Onychomycosis- Primary Dermatophytosis of nail Pain in toe of left foot Pain in limb Pain in toe of right foot Pain in limb Diabetic polyneuropathy associated with type 2 diabetes mellitus (HCC) Hammer toe of left foot Callus of foot Corns and callosities [facility] Diagnosis Pre-operative examination- Primary Preoperative examination, unspecified Non-recurrent unilateral inguinal hernia without obstruction or gangrene Mild cognitive impairment with memory loss Mild cognitive impairment, so stated LBBB (left bundle branch block) Other left bundle branch block Hyperlipidemia LDL goal <100 Other and unspecified hyperlipidemia Essential hypertension, benign Atherosclerosis of coronary artery of [place] heart without angina pectoris, unspecified vessel or lesion type Cardiomyopathy, nonischemic (HCC) Other primary cardiomyopathies 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, without long-term current use of insulin (HCC) (HCC) 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 Arteriosclerosis of both carotid arteries Anxiety state Anxiety state, unspecified Pre-operative examination- Primary Preoperative examination, unspecified Cardiomyopathy, nonischemic (HCC) Other primary cardiomyopathies Type 2 diabetes mellitus with diabetic polyneuropathy, without long-term current use of insulin (HCC) Primary hypertension Unspecified essential hypertension Mild cognitive impairment with memory loss Mild cognitive impairment, so stated Spinal stenosis of lumbar region, unspecified whether neurogenic claudication present Degenerative disc disease, cervical Degeneration of cervical intervertebral disc Atherosclerosis of [place] coronary artery of [place] heart without angina pectoris Benign prostatic hyperplasia, unspecified whether lower urinary tract symptoms present Arteriosclerosis of both carotid arteries Hyperlipidemia LDL goal <100 Other and unspecified hyperlipidemia LBBB (left bundle branch block) Other left bundle branch block 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 Anxiety state Anxiety state, unspecified History of splenectomy Other acquired absence of organ Personal history of fall Iron deficiency anemia, unspecified iron deficiency anemia type Pre-op examination Preoperative examination, unspecified Benign prostatic hyperplasia with urinary retention Retention of urine, unspecified Hyperlipidemia LDL goal <100 Other and unspecified hyperlipidemia Primary hypertension Unspecified essential hypertension Atherosclerosis of [place] coronary artery of [place] heart without angina pectoris Cardiomyopathy, nonischemic (HCC) Other primary cardiomyopathies Type 2 diabetes mellitus with other specified complication, without long-term current use of insulin (HCC) Iron deficiency anemia, unspecified iron deficiency anemia type Arteriosclerosis of both carotid arteries Mild cognitive impairment with memory loss Mild cognitive impairment, so stated Hyperlipidemia LDL goal <100 Other and unspecified hyperlipidemia [facility] Diagnosis Pre-operative examination- Primary Preoperative examination, unspecified Non-recurrent unilateral inguinal hernia without obstruction or gangrene Mild cognitive impairment with memory loss Mild cognitive impairment, so stated LBBB (left bundle branch block) Other left bundle branch block Hyperlipidemia LDL goal <100 Other and unspecified hyperlipidemia Essential hypertension, benign Atherosclerosis of coronary artery of [place] heart without angina pectoris, unspecified vessel or lesion type Cardiomyopathy, nonischemic (HCC) Other primary cardiomyopathies 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, without 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 Arteriosclerosis of both carotid arteries Anxiety state Anxiety state, unspecified Pre-operative examination- Primary Preoperative examination, unspecified Cardiomyopathy, nonischemic (HCC) Other primary cardiomyopathies Type 2 diabetes mellitus with diabetic polyneuropathy, without long-term current use of insulin (HCC) Primary hypertension Unspecified essential hypertension Mild cognitive impairment with memory loss Mild cognitive impairment, so stated Spinal stenosis of lumbar region, unspecified whether neurogenic claudication present Degenerative disc disease, cervical Degeneration of cervical intervertebral disc Atherosclerosis of [place] coronary artery of [place] heart without angina pectoris Benign prostatic hyperplasia, unspecified whether lower urinary tract symptoms present Arteriosclerosis of both carotid arteries Hyperlipidemia LDL goal <100 Other and unspecified hyperlipidemia LBBB (left bundle branch block) Other left bundle branch block 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 Anxiety state Anxiety state, unspecified History of splenectomy Other acquired absence of organ Personal history of fall Iron deficiency anemia, unspecified iron deficiency anemia type Pre-op examination Preoperative examination, unspecified Benign prostatic hyperplasia with urinary retention Retention of urine, unspecified Hyperlipidemia LDL goal <100 Other and unspecified hyperlipidemia Primary hypertension Unspecified essential hypertension Atherosclerosis of [place] coronary artery of [place] heart without angina pectoris Cardiomyopathy, nonischemic (HCC) Other primary cardiomyopathies Type 2 diabetes mellitus with other specified complication, without long-term current use of insulin (HCC) Iron deficiency anemia, unspecified iron deficiency anemia type Arteriosclerosis of both carotid arteries Mild cognitive impairment with memory loss Mild cognitive impairment, so stated Benign prostatic hyperplasia with urinary obstruction [facility]. Morgan [facility] March 06, 2023 1:05am Note Date/Time March 06, 2023 12: 37am [facility] Medical Records Department [address] [place] [id number] History & Physical Exam 03/06/23 0024 MR#: [id number] Acct: [id number] Name: MICHAEL MULLINS Rep #:[id number] : 1940 82 From: Paty Morgan MD PCP: Dr. Antony Espinoza MD Status:ADM I NO Location: [facility] [place] [id number] HPI - General General Date of Admission: 03/06/23 Date of Service: 03/06/23 Chief Complaint: Weakness, debility, BL knee pain. HPI Narrative The patient is an 82 y/o M w/ PMHx: Alzheimer's disease, Hairy Cell Leukemia following w/ Dr. Andrade Dx 1982, Chronic Systolic CHF (EF 35%, following w/ Dr. Wells, s/p cath 2004), HTH, HLD Gout, Diabetes mellitus type II, BPH, Chronic anemia/iron deficiency anemia anxiety and Depression who presents to the [facility] ED on 03/06/23 with history of increasing fatigue, malaise with notable bilateral lower extremity weakness as well as bilateral knee pain reporting he did have recent unclear parathroid surgery but from description possible resection given inability to safely take care of himself and risk of fall prompted ED evaluation. He notes bilateral knee discomfort, right worse than left seem to come on more notably immediately after surgery approximately week prior, worse with activity attempts, also notes discomfort with palpation primarily the rightknee. He notes the discomfort is more of a dull aching throb but more sharp with activity attempt and also with palpation primarily to the right knee is noted. Work-up in the ED included T98.9, heart rate 73, BP 153/74, respiratory rate 18, initially 97% on room air however most recent noted 91% on room air, CBC with WC 11.8, hemoglobin 11.7, MCV 98.9, platelet 225 with left shift, BMP with chloride 111, BUN/creatinine 24/1.64, glucose 111, calcium 9.2, urinalysis unremarkable, bilateral lower extremity duplex ultrasound negative, chest x-ray with no acute cardiopulmonary findings although low lung volumes noted and persistent elevation left hemidiaphragm. In the ED patient ministered 1 L normal saline bolus. [facility] Medical History Alzheimer's disease Anxiety Benign prostate hyperplasia COVID-19 Degenerative disc disease, cervical DM2 (diabetes mellitus, type 2) Former smoker Gout Hairy cell leukemia Heart failure with reduced ejection fraction HTN (hypertension) Hyperlipidemia Left bundle branch block Mild cognitive impairment with memory loss Home Medications atorvastatin 10 mg tablet 10 mg PO QHS CHOLESTEROL 11/20/15 [History Last Taken 05/26/21 22:00] doxazosin 1 mg tablet 1 mg PO QHS prostate 11/20/15 [History Last Taken 05/26/21 22:00] metformin 500 mg tablet 500 mg PO BIDCM DM 11/20/15 [History Last Taken 05/27/21 08:00] donepezil 5 mg tablet 10 mg PO QHS memory 11/28/17 [History Last Taken 05/26/21 22:00] paroxetine HCl 10 mg tablet 10 mg PO DAILY anxiety 11/28/17 [History Last Taken 05/27/21 08:00] allopurinol 300 mg tablet (Zyloprim) 300 mg PO DAILY GOUT 04/30/18 [History Last Taken 05/27/21 08:00] memantine 5 mg tablet 10 mg PO BID memory 05/26/21 [History Last Taken 05/27/21 08:00] acetaminophen 500 mg tablet 500 mg PO Q6H PRN Pain 05/28/21 [History Last Taken 05/27/21 08:00] finasteride 5 mg tablet 5 mg PO DAILY 07/01/21 [History Last Taken Unknown] albuterol sulfate 2.5 mg/3 mL (0.083 %) solution for nebulization 2.5 mg (3 mL) inhalation Q2H PRN PRN SOB/Wheezing #0 mL 07/14/21 [Rx Last Taken Unknown] losartan 25 mg tablet 50 mg PO DAILY heart #0 tabs 07/14/21 [Rx Last Taken 05/27/21 08:00] polysaccharide iron complex 150 mg iron capsule (Ferrex) 150 mg PO DAILY #90 caps 05/17/22 [Rx Last Taken Unknown] calcium carbonate-vitamin D3 1 tab PO/SL TID supplement 03/05/23 [History Last Taken Unknown] ibuprofen 200 mg capsule 200 mg PO Q4H PRN Pain 03/05/23 [History Last Taken Unknown] Allergy/AdvReac Type Severity Reaction Status Date / Time gabapentin Allergy tremors Verified 03/05/23 19:16 metoprolol [From Toprol XL] Allergy PT UNSURE Verified 03/05/23 19:16 OF REACTION ramipril [From Altace] Allergy PT UNSURE Verified 03/05/23 19:16 OF REACTION Family History Mother Cancer Father Heart disease Hypertension Surgical History H/O total hip arthroplasty History of appendectomy Hx of splenectomy Social History household members: spouse Smoking Status: Former smoker alcohol intake: never substance use type: does not use ROS ROS Narrative Admission Review of Systems: CONSTITUTIONAL: No weight loss, fever, chills, + weakness or fatigue. HEENT: Eyes: No visual loss, blurred vision, double vision or yellow sclerae. Ears, Nose, Throat: No hearing loss, sneezing, congestion, runny nose or sore throat. SKIN: No rash or itching, lesions, wounds. CARDIOVASCULAR: No chest pain, chest pressure or chest discomfort, palpitations,edema, orthopnea, syncopal events. RESPIRATORY: No shortness of breath, cough or sputum, wheezing, hemoptysis. GASTROINTESTINAL: No anorexia, nausea, vomiting or diarrhea, abdominal pain, melena, BRBPR. GENITOURINARY: + Chronic urinary frequency with BPH. No dysuria, urgency or retention. NEUROLOGICAL: + Gait debility, bilateral lower extremity weakness, knee pain associated, underlying Alzheimer's dementia with memory impairment, no headache,dizziness, syncope, paralysis, ataxia, numbness or tingling in the extremities, focal weakness, change in bowel or bladder control, seizure. MUSCULOSKELETAL: + muscle, back pain, joint pain or stiffness. HEMATOLOGIC: + anemia, bleeding or bruising. LYMPHATICS: No enlarged nodes. No history of splenectomy. PSYCHIATRIC: + history of depression or anxiety. ENDOCRINOLOGIC: No reports of sweating, cold or heat intolerance. No polyuria orpolydipsia. ALLERGIES: No history of asthma, hives, eczema or rhinitis. Vital Signs Vital Signs Vital Signs: 03/05/23 19:16 03/05/23 22:44 Temperature 98.9 F Temperature Source Temporal Pulse Rate 73 69 Respiratory Rate 18 15 Blood Pressure 153/74 H 153/74 H Blood Pressure Mean 100 100 Pulse Ox 97 91 Oxygen Delivery Method Room Air Room Air Weight Weight: 132 lb 7.965 oz Body Mass Index (BMI) 20.7 Physical Exam Narrative Physical Examination: General: Awake, alert, oriented to self, place and recent events, remains cooperative, seated upright in the ED bed, fatigued but no acute distress. Skin: Normal color, normal turgor, no icterus, no cyanosis, well-healing incision along the throat status post suspected parathyroidectomy. HEENT: AT/NC, EOMI, PERRLA, mildly dry MM, no carotid bruits or JVD noted, see skin. Lungs: Mild diminished, greater bases, proper effort, no rales, ronchi or wheezing. Heart: Currently regular rate and rhythm; no gallop, rub audible. Abdomen: Soft, NTTP, ND, normal BS, no HSM. Extremities: No cyanosis, no clubbing, no significant peripheral edema but patient does have bilateral knee effusions, right greater than left with some discomfort with palpation to the right knee. Neurological: Patient awake, alert, oriented as noted, cognitive function suspect baseline intact with underlying history of dementia with memory impairment; pupils equally reactive to light and accommodation, cranial nerves grossly normal, moving all 4 extremities although limited especially right knee secondary to discomfort with activity attempts, no specific focal deficits, strength accordingly moderately to severely global decreased. Psychiatric: Affect appears mildly fatigued otherwise normal, no acute evidence of depressive or anxiety feelings. Results Lab / Micro Data Result Diagrams: 03/05/23 20:32 03/05/23 20:32 Labs: Laboratory Results - last 24 hr 03/05/23 20:32: WBC 11.8 H, RBC 3.68 L, Hgb 11.7 L, Hct 36.4 L, MCV 98.9 H, MCH 31.8, MCHC 32.1, RDW Std Deviation 55.6 H, RDW Coeff of Eduarda 15.4 H, Plt Count 225, MPV 10.5, Immature Gran % (Auto) 0.300, Neut % (Auto) 75.4 H, Lymph % (Auto) 13.3 L, [place] % (Auto) 9.3, Eos % (Auto) 1.4, Baso % (Auto) 0.3, Absolute Neuts (auto) 8.9 H, Absolute Lymphs (auto) 1.56, Nucleated RBC % 0 03/05/23 20:32: Sodium 140, Potassium 4.5, Chloride 111 H, Carbon Dioxide 27.0, Anion Gap 2 L, BUN 34 H, Creatinine 1.64 H, Est GFR (MDRD) Af Amer 52 L, Est GFR(MDRD) Non-Af 43 L, BUN/Creatinine Ratio 20.7 H, Glucose 111 H, Calcium 9.2 03/05/23 21:01: Urine Color Yellow, Urine Clarity Clear, Urine pH 8.0, Ur Specific [place] 1.010, Urine Protein 100 H, Urine Glucose (UA) Normal, Urine Ketones Negative, Urine Occult Blood Negative, Urine Nitrite Negative, Urine Bilirubin Negative, Urine Urobilinogen 1 H, Ur Leukocyte Esterase 25 H, Urine RBC 0 SEEN, Urine WBC 0-5 SEEN, Ur Squamous Epith Cells 0 SEEN, Urine Bacteria RARE, Urine Mucus 0 SEEN Radiology Impression Venous Duplex 03/05/23 22:14 IMPRESSION: No sonographic evidence of deep venous thrombosis. Electronically Signed: Roberth Diez MD at 23:40 EDT , Chest X-Ray 03/05/23 22:48 IMPRESSION: Hypoinflated study without radiographic evidence of acute cardiopulmonary disease. Electronically Signed: Roberth Diez MD at 23:14 EDT Reading Location ID and State: [facility] / [place] Tel , Service support , Assessment & Plan Assessment/Plan (1) Generalized weakness: PLAN: 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 #1. Adult FTT with BL LE Weakness, Debility, no knee pain with right greater than left knee effusion noted: Will admit to MS, patient calcium level is normalalthough ionized calcium has been requested but this is a send out, patient doesappear to be dehydrated with mild renal insufficiency otherwise no severe electrolyte disturbances, will obtain TSH/free T4 to be cautious, maintain on fall precautions, continue judicious IV fluids, pain regimen for bilateral knee discomfort, PT/OT/case management consultation for discharge planning, maintain on fall precautions, will obtain BL knee plain films to be cautious, procalcitonin requested. Patient does have bilateral effusion, right greater than left thus pending response to the above- noted evaluation and treatments could certainly consider orthopedic surgery consultation for aspiration. #2. Acute renal insufficiency on CKD stage III, unclear subtype: Admission BUN/creatinine 34/1.64, baseline creatinine function noted previously primarily 0.9-1.2, will continue judicious hydration, repeat function in a.m., if worsening hold nephrotoxic regimen and would consider FeNa/renal US. #3. Recent Parathyroid surgery, questionable parathyroidectomy: Admission calcium level is noted normal although ionized calcium has been requested but this is a send out, will attempt to obtain records. #4. Hairy Cell Leukemia: Patient following w/ Dr. Andrade Dx 1982 s/p splenectomy w/ relapse 1984 with Tx Pentastatin/ECOG protocol w/ remission achieved, encourage continued outpatient follow-up as previously arranged. #5. Chronic macrocytic anemia/iron deficiency anemia: Admission hemoglobin 11.7, MCV 98.9, baseline hemoglobin appears 11-12, stable, continue to trend, continue supplementation. #6. Chronic systolic CHF: No recent echocardiogram in the system, last noted EF35% from remote echo with catheterization 2004 with nonobstructive disease, continue judicious hydration given his history, continue aspirin, statin, cautiously losartan as noted, not on beta-lynn therapy with it listed in the allergy section but unclear reaction. #7. Alzheimer's disease with associated dementia, no behavioral disturbance history: Complicates presentation, maintain on fall precautions, continue patient home memantine and donepezil regimen, PT/OT/case management consultationfor discharge planning. #8. Anxiety and depression: We will continue patient home paroxetine regimen. #9. Diabetes mellitus type II: Hold oral home regimen, ADA diet, accu checks w/ISS. #10. Hypertension: Continue home regimen including losartan cautiously with hold if renal function worsens as noted, PRN hydralazine. #11. Hyperlipidemia: Continue patient home statin therapy. #12. Gout: Continue patient home allopurinol regimen. #13. BPH: We will continue patient home finasteride, doxazosin home regimen. #14. DVT prophylaxis: Lovenox. #15. CODE status: Patient AIDAN is his and living will is currently in place. Discussed CODE status at length including difference between FULL code, DNR-CCA and DNR-CC status. Following discussions about the differences in these status, requested Full Code status. Advanced Care Planning Face to Face Time: 16minutes. Admission Evaluation Time spent evaluating chart, patient history, patient evaluation, care planning and discussion with specialists: 55 minutes. Charges/Coding Visit Charges Inpatient E&M: 27635 Init Hosp L2 Procedures Hospitalists Procedures: 79727 Advncd Care Plan 30 Min 03/06/23 0105 <Electronically signed by Paty Morgan MD> Cosigner Signature (if applicable): CC: Dr. Paty Morgan MD; Dr. Antony Espinoza MD~ Signed [facility] Work Phone: Patient's home Plan of care note* Visit Details Visit Type -SN SOC Discipline -Assisted Problems Problem Description Start Date Status Goals Interve ntions Medication Education Disciplines: Skilled Services 03/19/2023 Active 1 goal linked to scheduled/documen deangelo intervention 1 goal intervention scheduled/documen deangelo in this visit Sepsis Disciplines: Skilled Services 03/19/2023 Active 1 goal linked to scheduled/documen deangelo intervention 1 goal intervention scheduled/documen deangelo in this visit Physician Specific Parameters Disciplines: Skilled Services 03/19/2023 Active 1 goal linked to scheduled/documen deangelo intervention 1 goal intervention scheduled/documen deangelo in this visit Risk for Falls Disciplines: Skilled Services 03/19/2023 Active 1 goal linked to scheduled/documen deangelo intervention 1 goal intervention scheduled/documen deangelo in this visit Pain Disciplines: Skilled Services 03/19/2023 Active 1 goal linked to scheduled/documen deangelo intervention 1 goal intervention scheduled/documen deangelo in this visit Diabetic Foot Care Disciplines: Skilled Services 03/19/2023 Active 1 goal linked to scheduled/documen deangelo intervention 1 goal intervention scheduled/documen deangelo in this visit High Risk Medications Disciplines: Skilled Services 03/19/2023 Active 1 goal linked to scheduled/documen deangelo intervention 1 goal intervention scheduled/documen deangelo in this visit Discharge Disciplines: Skilled Services 03/19/2023 Active 1 goal linked to scheduled/documen deangelo intervention 1 goal intervention scheduled/documen deangelo in this visit Advance Directives Disciplines: Skilled Services 03/19/2023 Resolved on 03/19/2023 1 goal linked to scheduled/documen deangelo intervention 1 goal intervention scheduled/documen deangelo in this visit SN Learning Assessment Disciplines: SN 03/19/2023 Active 1 goal linked to scheduled/documen deangelo intervention 1 goal intervention scheduled/documen deangelo in this visit SN Genitourinary disease process Disciplines: SN 03/19/2023 Active 1 goal linked to scheduled/documen deangelo intervention 2 goal interventions scheduled/documen deangelo in this visit Goals Goal Associated Problem Outcome Goal Met? Visit Notes Patient/caregiver will demonstrate ability to obtain, store, identify and administer ordered medications, keep accurate medication list in home, and adhere to medication schedule Description: Patient/caregiver will demonstrate ability to obtain, store, identify and administer ordered medications, keep accurate medication list in home, and adhere to medication schedule by 04/10/23. Medication Education No Patient/caregiver will be able to identify and report symptoms of sepsis Description: Patient/caregiver will be able to identify signs/symptoms of sepsis infection and will verbalize actions to take if suspected by 04/10/23. Sepsis No Patient to maintain parameters within physician-specified ranges throughout certification period Physician Specific Parameters No Manage Risk for falls Description: Patient/caregiver will verbalize knowledge of individualized fall prevention strategies by 04/10/23. Risk for Falls No Manage Pain Description: Patient/caregiver will verbalize knowledge and understanding of appropriate techniques to control pain, including pain medication. Patient will verbalize or demonstrate an acceptable level of pain as evidenced by a pain score of 0/10 and improvement in ability to perform activities of daily living to be achieved by 04/10/23. Pain No Manage diabetic foot care Description: Patient/caregiver will demonstrate basic understanding of and compliance with diabetic self-care management as evidenced by verbalizing purpose of daily foot care and assessment by 04/10/23. Diabetic Foot Care No Patient/caregiver will teach back high risk medication side effect and precaution education High Risk Medications No Manage discharge planning Description: Patient/caregiver will verbalize understanding of ongoing discharge plan provided related to disease management, arrangements for outpatient and/or community services, obtaining medications, supplies, and DME, as needed throughout certification period. Discharge No Patient/caregiver will make healthcare providers aware of and any changes to Advance Directives throughout certification period Advance Directives No Demonstrate understanding of education Description: Patient and/or caregiver will verbalize understanding of educational instruction provided throughout certification period. SN Learning Assessment No Patient/Caregiver will verbalize understanding and demonstrate improved management of genitourinary disease/condition. Description: Patient/Caregiver will state understanding of genitourinary disease/condition and be able to teach back management strategies by 04/10/23. SN Genitourinary disease process No Interventions Intervention Associated Problem/Goal Status Variance Visit Notes Medication Education Description: Evaluate/instruct patient/caregiver on obtaining, storing, identifying and administering ordered medications as well as keeping accurate medication list in the home and adhereing to medication schedule Problem:Medication Education Goal:Patient/caregive r will demonstrate ability to obtain, store, identify and administer ordered medications, keep accurate medication list in home, and adhere to medication schedule Completed Patient and Caregiver instructed on importance of keeping accurate medication list in home, adhering to medication schedule and Medication, route, dose, frequency, purpose, and side effects of all medications. Risk of Sepsis Description: Patient is at risk for sepsis. Monitor closely for s/s of sepsis. Problem:Sepsis Goal:Patient/caregive r will be able to identify and report symptoms of sepsis Completed SPO2 Description: Notify Dr. Espinoza if pulse ox is <92% at rest. Problem:Physician Specific Parameters Goal:Patient to maintain parameters within physician-specified ranges throughout certification period Completed Instruct on individual fall risk factors and strategies to prevent falls and injuries caused by falls. Problem:Risk for Falls Goal:Manage Risk for falls Completed SN: Patient and Caregiver instructed on Eliminating Environmental Hazards: Keep pathways clear, Keep pets out of pathways, Remove unsafe rugs, Move furniture from pathways and Keep rooms and walkways well lit Managing Cognitive Impairment/Depression : Recommended use of visual cues/reminders for safety Instruct on pain and instruct on strategies to control pain Problem:Pain Goal:Manage Pain Completed patient and caregiver instructed on techniques to control pain including Non-Pharmacological measures; rest. Monitor lower extremities for skin lesions and educate on proper foot care Problem:Diabetic Foot Care Goal:Manage diabetic foot care Completed patient and caregiver instructed on diabetic foot care including daily skin inspection and wearing proper footwear/avoiding going barefoot. Hypoglycemic (including insulin)- educated on high risk medication Problem:High Risk Medications Goal:Patient/caregive r will teach back high risk medication side effect and precaution education Completed patient and caregiver educated on taking medication(s) as prescribed by provider. Do not stop medication or skip/alter doses without speaking with your provider. Discuss medication effectiveness or side effect concerns with your provider and home care team. Check blood sugars and keep log as ordered by provider. Monitor for side effects of hypoglycemia such as increased weakness or shaking, moist skin, sweating, fast heartbeat, dizziness, sudden hunger, confusion, pale skin, numbness in mouth or tongue, irritability, nervousness, unsteadiness, nightmares, bad dreams, and restless sleep. Checking your blood sugar routinely and eating a consistent diabetic diet can help regulate blood sugars and reduce side effects. Instruct on ongoing discharge plan Problem:Discharge Goal:Manage discharge planning Completed Ongoing Discharge plan: Discharge plan discussed with patient and caregiver including frequency and duration for home SN and plan for transition to: live independently at home without ongoing services. Determine patient's Advance Directive Status Description: Patient does have advance directives. Patient's Advance Directives determined to be available in Home Healthcare DPOA and Living Will. Problem:Advance Directives Goal:Patient/caregive r will make healthcare providers aware of and any changes to Advance Directives throughout certification period Completed Discussed Advance Directives with Patient and/or Caregiver. Referred patient to Home Care handbook for further information on Healthcare DPOA & Living Will. Instruct and educate on knowledge deficits Problem:SN Learning Assessment Goal:Demonstrate understanding of education Completed patient and caregiver verbalize and/or demonstrate understanding of nursing education completed today. Education methods include: verbal cues and teach back. Further education required to improve knowledge and compliance with cardiac disease management, diabetic care management, fall prevention/home safety strategies, genitourinary care management, medication management, nutrition and pain management. Catheter- Instruct Patient/Caregiver on use and management of a urinary catheter Description: Urinary catheter is a craig catheter. Problem:SN Genitourinary disease process Goal:Patient/Caregive r will verbalize understanding and demonstrate improved management of genitourinary disease/condition. Completed patient and caregiver instructed on catheter management including: cleansing around catheter insertion site, proper care of urinary storage bags, emptying and disposing of urine from the bag, positioning the catheter and urinary bag, use of securement device, how to change securement device and potential complications and actions to take. UTI- Instruct Patient/Caregiver on signs and symptoms of urinary tract infection, treatment measures, measures to prevent reoccurence, and when to notify physician of symptoms Problem:SN Genitourinary disease process Goal:Patient/Caregive r will verbalize understanding and demonstrate improved management of genitourinary disease/condition. Completed patient and caregiver instructed on signs and symptoms of UTI and when to notify physician. documented in this encounter [facility]'s home Plan of care note* Visit Details Visit Type -PT EVAL Discipline -Physical Therapy Problems Problem Description Start Date Status Goals Interve ntions Sepsis Disciplines: Skilled Services 03/19/2023 Active 1 goal linked to scheduled/documen deangelo intervention 1 goal intervention scheduled/document ed in this visit PT Referral Disciplines: Skilled Services 03/19/2023 Active 1 goal linked to scheduled/documen deangelo intervention 1 goal intervention scheduled/document ed in this visit Physician Specific Parameters Disciplines: Skilled Services 03/19/2023 Active 1 goal linked to scheduled/documen deangelo intervention 1 goal intervention scheduled/document ed in this visit Risk for Falls Disciplines: Skilled Services 03/19/2023 Active 1 goal linked to scheduled/documen deangelo intervention 1 goal intervention scheduled/document ed in this visit Pain Disciplines: Skilled Services 03/19/2023 Active 1 goal linked to scheduled/documen deangelo intervention 1 goal intervention scheduled/document ed in this visit Diabetic Foot Care Disciplines: Skilled Services 03/19/2023 Active 1 goal linked to scheduled/documen deangelo intervention 1 goal intervention scheduled/document ed in this visit PT Learning Assessment Disciplines: PT 03/24/2023 Active 1 goal linked to scheduled/documen deangelo intervention 1 goal intervention scheduled/document ed in this visit PT Cardiovascular Disease Disciplines: PT 03/24/2023 Active 1 goal linked to scheduled/documen deangelo intervention 1 goal intervention scheduled/document ed in this visit Goals Goal Associated Problem Outcome Goal Met? Visit Notes Patient/caregiver will be able to identify and report symptoms of sepsis Description: Patient/caregiver will be able to identify signs/symptoms of sepsis infection and will verbalize actions to take if suspected by 04/10/23. Sepsis No Patient will be referred to additional discipline as needed PT Referral No Patient to maintain parameters within physician-specified ranges throughout certification period Physician Specific Parameters No Manage Risk for falls Description: Patient/caregiver will verbalize knowledge of individualized fall prevention strategies by 04/10/23. Risk for Falls No Manage Pain Description: Patient/caregiver will verbalize knowledge and understanding of appropriate techniques to control pain, including pain medication. Patient will verbalize or demonstrate an acceptable level of pain as evidenced by a pain score of 0/10 and improvement in ability to perform activities of daily living to be achieved by 04/10/23. Pain No Manage diabetic foot care Description: Patient/caregiver will demonstrate basic understanding of and compliance with diabetic self-care management as evidenced by verbalizing purpose of daily foot care and assessment by 04/10/23. Diabetic Foot Care No Demonstrate understanding of education Description: Patient and/or caregiver will understand educational instruction to be achieved by 05/17/23. . PT Learning Assessment No Manage Secondary Cardiovascular disease Description: Improve patient and/or caregiver understanding of secondary cardiovascular disease management as evidenced by patient and/or caregiver able to verbalize, demonstrate, and teach back instruction, to be achieved by 05/17/23. PT Cardiovascular Disease No Interventions Intervention Associated Problem/Goal Status Variance Visit Notes Risk of Sepsis Description: Patient is at risk for sepsis. Monitor closely for s/s of sepsis. Problem:Sepsis Goal:Patient/caregive r will be able to identify and report symptoms of sepsis Completed PT evaluation and treatment Description: Evaluate and treat for the assessment of functional deficits and establishment of appropriate interventions and education, including recommendations for functional mobility training, balance training for fall reduction, and strengthening. Problem:PT Referral Goal:Patient will be referred to additional discipline as needed Completed SPO2 Description: Notify Dr. Espinoza if pulse ox is <92% at rest. Problem:Physician Specific Parameters Goal:Patient to maintain parameters within physician-specified ranges throughout certification period Completed Instruct on individual fall risk factors and strategies to prevent falls and injuries caused by falls. Problem:Risk for Falls Goal:Manage Risk for falls Completed PT: Patient instructed on Eliminating Environmental Hazards: Keep pathways clear, Keep pets out of pathways, Remove unsafe rugs and Move furniture from pathways Managing Impaired Functional Mobility: Use assistive device(s): front wheeled walker Managing Pain Instruct on pain and instruct on strategies to control pain Problem:Pain Goal:Manage Pain Completed patient instructed on techniques to control pain including Pharmacological measures and Non-Pharmacological measures; rest. Monitor lower extremities for skin lesions and educate on proper foot care Problem:Diabetic Foot Care Goal:Manage diabetic foot care Completed patient instructed on diabetic foot care including daily skin inspection and wearing proper footwear/avoiding going barefoot. Instruct and educate on knowledge deficits Problem:PT Learning Assessment Goal:Demonstrate understanding of education Completed patient verbalize and/or demonstrate understanding of physical therapy education including cardiac disease management, fall prevention strategies, home safety and functional activity. Education methods include: verbal cues. Further education required to improve knowledge and compliance with fall prevention strategies, home safety, functional activity and home exercise program. Instruct on signs, symptoms, and management of secondary cardiovascular disease Problem:PT Cardiovascular Disease Goal:Manage Secondary Cardiovascular disease Completed Instructed patient on energy conservation and weight tracking. [facility] Visit Details Visit Type -ENVIRONMENTAL SUSTAINABILITY MANAGER ROUTINE Discipline -Physical Therapy Problems Problem Description Start Date Status Goals Interve ntions Medication Education Disciplines: Skilled Services 03/19/2023 Active 1 goal linked to scheduled/document ed intervention 1 goal intervention scheduled/documen deangelo in this visit Sepsis Disciplines: Skilled Services 03/19/2023 Active 1 goal linked to scheduled/document ed intervention 1 goal intervention scheduled/documen deangelo in this visit Physician Specific Parameters Disciplines: Skilled Services 03/19/2023 Active 1 goal linked to scheduled/document ed intervention 1 goal intervention scheduled/documen deangelo in this visit Risk for Falls Disciplines: Skilled Services 03/19/2023 Active 1 goal linked to scheduled/document ed intervention 1 goal intervention scheduled/documen deangelo in this visit Pain Disciplines: Skilled Services 03/19/2023 Active 1 goal linked to scheduled/document ed intervention 1 goal intervention scheduled/documen deangelo in this visit Discharge Disciplines: Skilled Services 03/19/2023 Active 1 goal linked to scheduled/document ed intervention 1 goal intervention scheduled/documen deaneglo in this visit PT Impaired muscle performance and/or ROM Disciplines: PT 03/24/2023 Active 1 goal linked to scheduled/document ed intervention 1 goal intervention scheduled/documen deangelo in this visit PT Impaired gait Disciplines: PT 03/24/2023 Active 2 goals linked to scheduled/document ed interventions 2 goal interventions scheduled/documen deangelo in this visit PT Learning Assessment Disciplines: PT 03/24/2023 Active 1 goal linked to scheduled/document ed intervention 1 goal intervention scheduled/documen deangelo in this visit PT Cardiovascular Disease Disciplines: PT 03/24/2023 Active 1 goal linked to scheduled/document ed intervention 1 goal intervention scheduled/documen deangelo in this visit Goals Goal Associated Problem Outcome Goal Met? Visit Notes Patient/caregiver will demonstrate ability to obtain, store, identify and administer ordered medications, keep accurate medication list in home, and adhere to medication schedule Description: Patient/caregiver will demonstrate ability to obtain, store, identify and administer ordered medications, keep accurate medication list in home, and adhere to medication schedule by 04/10/23. Medication Education No Patient/caregiver will be able to identify and report symptoms of sepsis Description: Patient/caregiver will be able to identify signs/symptoms of sepsis infection and will verbalize actions to take if suspected by 04/10/23. Sepsis No Patient to maintain parameters within physician-specified ranges throughout certification period Physician Specific Parameters No Manage Risk for falls Description: Patient/caregiver will verbalize knowledge of individualized fall prevention strategies by 04/10/23. Risk for Falls No Manage Pain Description: Patient/caregiver will verbalize knowledge and understanding of appropriate techniques to control pain, including pain medication. Patient will verbalize or demonstrate an acceptable level of pain as evidenced by a pain score of 0/10 and improvement in ability to perform activities of daily living to be achieved by 04/10/23. Pain No Manage discharge planning Description: Patient/caregiver will verbalize understanding of ongoing discharge plan provided related to disease management, arrangements for outpatient and/or community services, obtaining medications, supplies, and DME, as needed throughout certification period. Discharge No Improved Muscle Performance and/or ROM Description: LTG: Patient will demonstrate improved muscle performance to meet functional goals as evidenced by ability to tolerate 10 min utes of standing activity, to be achieved by 04/20/23. STG: Patient and/or caregiver will verbalize/demonstrate independence with home exercise program, to improve functional mobility, to be achieved by 03/30/23. PT Impaired muscle performance and/or ROM No Improved Stair Climbing Description: LTG: Patient will demonstrate improved stair negotiation as evidenced by ascend/descend 5 steps with railing independently, to safely access community and exit home, to be achieved by 04/20/23. . PT Impaired gait No Improved Gait Description: STG: Patient will demonstrate improved gait ability as evidenced by ambulation 150 feet with front wheeled walker independently with AD, in order to maneuver throughout home safely with good gait pattern , to be achieved by 04/06/23. LTG: Patient will demonstrate improved gait ability as evidenced by ambulation 150 feet with single point cane independently with AD, to return to safe household and community ambulation, in order to return to plf , to be achieved by 04/20/23. . PT Impaired gait No Demonstrate understanding of education Description: Patient and/or caregiver will understand educational instruction to be achieved by 05/17/23. . PT Learning Assessment No Manage Secondary Cardiovascular disease Description: Improve patient and/or caregiver understanding of secondary cardiovascular disease management as evidenced by patient and/or caregiver able to verbalize, demonstrate, and teach back instruction, to be achieved by 05/17/23. PT Cardiovascular Disease No Interventions Intervention Associated Problem/Goal Status Variance Visit Notes Medication Education Description: Evaluate/instruct patient/caregiver on obtaining, storing, identifying and administering ordered medications as well as keeping accurate medication list in the home and adhereing to medication schedule Problem:Medication Education Goal:Patient/caregiver will demonstrate ability to obtain, store, identify and administer ordered medications, keep accurate medication list in home, and adhere to medication schedule Completed Caregiver instructed on importance of keeping accurate medication list in home and adhering to medication schedule. Risk of Sepsis Description: Patient is at risk for sepsis. Monitor closely for s/s of sepsis. Problem:Sepsis Goal:Patient/caregiver will be able to identify and report symptoms of sepsis Completed SPO2 Description: Notify Dr. Espinoza if pulse ox is <92% at rest. Problem:Physician Specific Parameters Goal:Patient to maintain parameters within physician-specified ranges throughout certification period Completed Instruct on individual fall risk factors and strategies to prevent falls and injuries caused by falls. Problem:Risk for Falls Goal:Manage Risk for falls Completed PT: Patient and Caregiver instructed on Managing Impaired Functional Mobility: Use assistive device(s): front wheeled walker Instruct on pain and instruct on strategies to control pain Problem:Pain Goal:Manage Pain Completed patient instructed on techniques to control pain including Non-Pharmacological measures; rest. Instruct on ongoing discharge plan Problem:Discharge Goal:Manage discharge planning Completed Ongoing Discharge plan: Discharge plan discussed with patient and caregiver including frequency and duration for home PT and plan for transition to: caregiver assistance. Physical Therapy Therapeutic Exercises Problem:PT Impaired muscle performance and/or ROM Goal:Improved Muscle Performance and/or ROM Completed patient and caregiver instructed on strengthening exercises including ankle pumps, quad and glut sets, hip abd and add, heel slides . seated laq, hip flexion and heel raises x's 10each with verbal, visual and written cues for correct form and hold times. patient and caregiver instructed to perform home exercise program twice a day which included above exercises. Physical Therapy Stair Training Problem:PT Impaired gait Goal:Improved Stair Climbing Completed Stair training and instruction to patient and caregiver on safe stair climbing, ascend/descend 1 steps, without railing and with WW with stand by assist and contact guard assist and verbal cues for safety. Physical Therapy Gait Training Problem:PT Impaired gait Goal:Improved Gait Completed Gait training and instruction to patient on safe ambulation with front wheeled walker for x's 25 feet with stand by assist, with verbal cues for corrections of gait deviations including posture and pacing. Instruct and educate on knowledge deficits Problem:PT Learning Assessment Goal:Demonstrate understanding of education Completed patient and caregiver verbalize and/or demonstrate understanding of physical therapy education including home exercise program. Education methods include: verbal cues and written instructions. Further education required to improve knowledge and compliance with home exercise program. Instruct on signs, symptoms, and management of secondary cardiovascular disease Problem:PT Cardiovascular Disease Goal:Manage Secondary Cardiovascular disease Completed Instructed patient and caregiver on exercise and activity guidelines. documented in this encounter [facility] Plan of care note* Visit Details Visit Type -ENVIRONMENTAL SUSTAINABILITY MANAGER ROUTINE Discipline -Physical Therapy Problems Problem Description Start Date Status Goals Interve ntions Medication Education Disciplines: Skilled Services 03/19/2023 Active 1 goal linked to scheduled/document ed intervention 1 goal intervention scheduled/document ed in this visit Sepsis Disciplines: Skilled Services 03/19/2023 Active 1 goal linked to scheduled/document ed intervention 1 goal intervention scheduled/document ed in this visit Physician Specific Parameters Disciplines: Skilled Services 03/19/2023 Active 1 goal linked to scheduled/document ed intervention 1 goal intervention scheduled/document ed in this visit Risk for Falls Disciplines: Skilled Services 03/19/2023 Active 1 goal linked to scheduled/document ed intervention 1 goal intervention scheduled/document ed in this visit Pain Disciplines: Skilled Services 03/19/2023 Active 1 goal linked to scheduled/document ed intervention 1 goal intervention scheduled/document ed in this visit Discharge Disciplines: Skilled Services 03/19/2023 Active 1 goal linked to scheduled/document ed intervention 1 goal intervention scheduled/document ed in this visit PT Impaired muscle performance and/or ROM Disciplines: PT 03/24/2023 Active 1 goal linked to scheduled/document ed intervention 1 goal intervention scheduled/document ed in this visit PT Impaired gait Disciplines: PT 03/24/2023 Active 2 goals linked to scheduled/document ed interventions 2 goal interventions scheduled/document ed in this visit PT Learning Assessment Disciplines: PT 03/24/2023 Active 1 goal linked to scheduled/document ed intervention 1 goal intervention scheduled/document ed in this visit Goals Goal Associated Problem Outcome Goal Met? Visit Notes Patient/caregiver will demonstrate ability to obtain, store, identify and administer ordered medications, keep accurate medication list in home, and adhere to medication schedule Description: Patient/caregiver will demonstrate ability to obtain, store, identify and administer ordered medications, keep accurate medication list in home, and adhere to medication schedule by 04/10/23. Medication Education No Patient/caregiver will be able to identify and report symptoms of sepsis Description: Patient/caregiver will be able to identify signs/symptoms of sepsis infection and will verbalize actions to take if suspected by 04/10/23. Sepsis No Patient to maintain parameters within physician-specified ranges throughout certification period Physician Specific Parameters No Manage Risk for falls Description: Patient/caregiver will verbalize knowledge of individualized fall prevention strategies by 04/10/23. Risk for Falls No Manage Pain Description: Patient/caregiver will verbalize knowledge and understanding of appropriate techniques to control pain, including pain medication. Patient will verbalize or demonstrate an acceptable level of pain as evidenced by a pain score of 0/10 and improvement in ability to perform activities of daily living to be achieved by 04/10/23. Pain No Manage discharge planning Description: Patient/caregiver will verbalize understanding of ongoing discharge plan provided related to disease management, arrangements for outpatient and/or community services, obtaining medications, supplies, and DME, as needed throughout certification period. Discharge No Improved Muscle Performance and/or ROM Description: LTG: Patient will demonstrate improved muscle performance to meet functional goals as evidenced by ability to tolerate 10 min utes of standing activity, to be achieved by 04/20/23. STG: Patient and/or caregiver will verbalize/demonstrate independence with home exercise program, to improve functional mobility, to be achieved by 03/30/23. PT Impaired muscle performance and/or ROM No Improved Stair Climbing Description: LTG: Patient will demonstrate improved stair negotiation as evidenced by ascend/descend 5 steps with railing independently, to safely access community and exit home, to be achieved by 04/20/23. . PT Impaired gait No Improved Gait Description: STG: Patient will demonstrate improved gait ability as evidenced by ambulation 150 feet with front wheeled walker independently with AD, in order to maneuver throughout home safely with good gait pattern , to be achieved by 04/06/23. LTG: Patient will demonstrate improved gait ability as evidenced by ambulation 150 feet with single point cane independently with AD, to return to safe household and community ambulation, in order to return to plf , to be achieved by 04/20/23. . PT Impaired gait No Demonstrate understanding of education Description: Patient and/or caregiver will understand educational instruction to be achieved by 05/17/23. . PT Learning Assessment No Interventions Intervention Associated Problem/Goal Status Variance Visit Notes Medication Education Description: Evaluate/instruct patient/caregiver on obtaining, storing, identifying and administering ordered medications as well as keeping accurate medication list in the home and adhereing to medication schedule Problem:Medication Education Goal:Patient/caregive r will demonstrate ability to obtain, store, identify and administer ordered medications, keep accurate medication list in home, and adhere to medication schedule Completed Patient instructed on importance of keeping accurate medication list in home and adhering to medication schedule. Risk of Sepsis Description: Patient is at risk for sepsis. Monitor closely for s/s of sepsis. Problem:Sepsis Goal:Patient/caregive r will be able to identify and report symptoms of sepsis Completed SPO2 Description: Notify Dr. Espinoza if pulse ox is <92% at rest. Problem:Physician Specific Parameters Goal:Patient to maintain parameters within physician-specified ranges throughout certification period Completed Instruct on individual fall risk factors and strategies to prevent falls and injuries caused by falls. Problem:Risk for Falls Goal:Manage Risk for falls Completed PT: Patient instructed on Managing Impaired Functional Mobility: Use assistive device(s): front wheeled walker Instruct on pain and instruct on strategies to control pain Problem:Pain Goal:Manage Pain Completed Patent denies pain Instruct on ongoing discharge plan Problem:Discharge Goal:Manage discharge planning Completed Ongoing Discharge plan: Discharge plan discussed with patient including frequency and duration for home PT and plan for transition to: live independently at home without ongoing services. Physical Therapy Therapeutic Exercises Problem:PT Impaired muscle performance and/or ROM Goal:Improved Muscle Performance and/or ROM Completed patient instructed on strengthening exercises including seated faq, hip flexion and heel raises, semi reclined: quad and glut sets, ankle pumps, hip abd and adduction , saq and heel slides x's 10 each with verbal, tactile, written and visual cues for correct form and hold times. patient instructed to perform home exercise program twice a day which included above exercises. Physical Therapy Stair Training Problem:PT Impaired gait Goal:Improved Stair Climbing Completed Stair training and instruction to patient on safe stair climbing, ascend/descend 1 steps, with grab bar and walker with stand by assist and verbal cues for safety. Physical Therapy Gait Training Problem:PT Impaired gait Goal:Improved Gait Completed Gait training and instruction to patient on safe ambulation with front wheeled walker for 20 feet with stand by assist, with verbal cues for corrections of gait deviations including posture. Instruct and educate on knowledge deficits Problem:PT Learning Assessment Goal:Demonstrate understanding of education Completed patient verbalize and/or demonstrate understanding of physical therapy education including home exercise program. Education methods include: verbal cues, tactile cues, written instructions and visual cues. Further education required to improve knowledge and compliance with home exercise program. documented in this encounter [facility] Plan of care note* Visit Details Visit Type -SN ROUTINE Discipline -Assisted Problems Problem Description Start Date Status Goals Interve ntions Medication Education Disciplines: Skilled Services 03/19/2023 Active 1 goal linked to scheduled/documen deangelo intervention 1 goal intervention scheduled/documen deangelo in this visit Sepsis Disciplines: Skilled Services 03/19/2023 Active 1 goal linked to scheduled/documen deangelo intervention 1 goal intervention scheduled/documen deangelo in this visit PT Referral Disciplines: Skilled Services 03/19/2023 Resolved on 03/29/2023 1 goal linked to scheduled/documen deangelo intervention Physician Specific Parameters Disciplines: Skilled Services 03/19/2023 Active 1 goal linked to scheduled/documen deangelo intervention 1 goal intervention scheduled/documen deangelo in this visit Risk for Falls Disciplines: Skilled Services 03/19/2023 Active 1 goal linked to scheduled/documen deangelo intervention 1 goal intervention scheduled/documen deangelo in this visit Pain Disciplines: Skilled Services 03/19/2023 Resolved on 03/29/2023 1 goal linked to scheduled/documen deangelo intervention Diabetic Foot Care Disciplines: Skilled Services 03/19/2023 Active 1 goal linked to scheduled/documen deangelo intervention 1 goal intervention scheduled/documen deangelo in this visit High Risk Medications Disciplines: Skilled Services 03/19/2023 Active 1 goal linked to scheduled/documen deangelo intervention 1 goal intervention scheduled/documen deangelo in this visit Discharge Disciplines: Skilled Services 03/19/2023 Active 1 goal linked to scheduled/documen deangelo intervention SN Learning Assessment Disciplines: SN 03/19/2023 Active 1 goal linked to scheduled/documen deangelo intervention 1 goal intervention scheduled/documen deangelo in this visit SN Genitourinary disease process Disciplines: SN 03/19/2023 Active 1 goal linked to scheduled/documen deangelo intervention 2 goal interventions scheduled/documen deangelo in this visit SN Labwork Disciplines: SN 03/19/2023 Resolved on 03/29/2023 1 goal linked to scheduled/documen deangelo intervention 1 goal intervention scheduled/documen deangelo in this visit Goals Goal Associated Problem Outcome Goal Met? Visit Notes Patient/caregiver will demonstrate ability to obtain, store, identify and administer ordered medications, keep accurate medication list in home, and adhere to medication schedule Description: Patient/caregiver will demonstrate ability to obtain, store, identify and administer ordered medications, keep accurate medication list in home, and adhere to medication schedule by 04/10/23. Medication Education In Progress No Patient/caregiver will be able to identify and report symptoms of sepsis Description: Patient/caregiver will be able to identify signs/symptoms of sepsis infection and will verbalize actions to take if suspected by 04/10/23. Sepsis In Progress No Patient will be referred to additional discipline as needed PT Referral Completed Yes Patient to maintain parameters within physician-specified ranges throughout certification period Physician Specific Parameters In Progress No Manage Risk for falls Description: Patient/caregiver will verbalize knowledge of individualized fall prevention strategies by 04/10/23. Risk for Falls In Progress No Manage Pain Description: Patient/caregiver will verbalize knowledge and understanding of appropriate techniques to control pain, including pain medication. Patient will verbalize or demonstrate an acceptable level of pain as evidenced by a pain score of 0/10 and improvement in ability to perform activities of daily living to be achieved by 04/10/23. Pain Completed Yes Manage diabetic foot care Description: Patient/caregiver will demonstrate basic understanding of and compliance with diabetic self-care management as evidenced by verbalizing purpose of daily foot care and assessment by 04/10/23. Diabetic Foot Care In Progress No Patient/caregiver will teach back high risk medication side effect and precaution education High Risk Medications In Progress No Manage discharge planning Description: Patient/caregiver will verbalize understanding of ongoing discharge plan provided related to disease management, arrangements for outpatient and/or community services, obtaining medications, supplies, and DME, as needed throughout certification period. Discharge In Progress No Demonstrate understanding of education Description: Patient and/or caregiver will verbalize understanding of educational instruction provided throughout certification period. SN Learning Assessment In Progress No Patient/Caregiver will verbalize understanding and demonstrate improved management of genitourinary disease/condition. Description: Patient/Caregiver will state understanding of genitourinary disease/condition and be able to teach back management strategies by 04/10/23. SN Genitourinary disease process In Progress No SN to obtain lab specimen without difficulty when ordered throughout certification period SN Labwork Completed Yes Interventions Intervention Associated Problem/Goal Status Variance Visit Notes Medication Education Description: Evaluate/instruct patient/caregiver on obtaining, storing, identifying and administering ordered medications as well as keeping accurate medication list in the home and adhereing to medication schedule Problem:Medication Education Goal:Patient/caregiv er will demonstrate ability to obtain, store, identify and administer ordered medications, keep accurate medication list in home, and adhere to medication schedule Completed Patient instructed on adhering to medication schedule. Risk of Sepsis Description: Patient is at risk for sepsis. Monitor closely for s/s of sepsis. Problem:Sepsis Goal:Patient/caregiv er will be able to identify and report symptoms of sepsis Completed SPO2 Description: Notify Dr. Espinoza if pulse ox is <92% at rest. Problem:Physician Specific Parameters Goal:Patient to maintain parameters within physician-specified ranges throughout certification period Completed Instruct on individual fall risk factors and strategies to prevent falls and injuries caused by falls. Problem:Risk for Falls Goal:Manage Risk for falls Completed SN: Patient instructed on Eliminating Environmental Hazards: Keep pathways clear, Keep pets out of pathways and Keep rooms and walkways well lit Managing Impaired Functional Mobility: Use assistive device(s): front wheeled walker and Caregiver to provide assist with: Steps and ADL/IADLs Monitor lower extremities for skin lesions and educate on proper foot care Problem:Diabetic Foot Care Goal:Manage diabetic foot care Completed patient instructed on diabetic foot care including wearing proper footwear/avoiding going barefoot. Hypoglycemic (including insulin)- educated on high risk medication Problem:High Risk Medications Goal:Patient/caregiv er will teach back high risk medication side effect and precaution education Completed patient educated on taking medication(s) as prescribed by provider. Do not stop medication or skip/alter doses without speaking with your provider. Discuss medication effectiveness or side effect concerns with your provider and home care team. Check blood sugars and keep log as ordered by provider. Monitor for side effects of hypoglycemia such as increased weakness or shaking, moist skin, sweating, fast heartbeat, dizziness, sudden hunger, confusion, pale skin, numbness in mouth or tongue, irritability, nervousness, unsteadiness, nightmares, bad dreams, and restless sleep. Checking your blood sugar routinely and eating a consistent diabetic diet can help regulate blood sugars and reduce side effects. Instruct and educate on knowledge deficits Problem:SN Learning Assessment Goal:Demonstrate understanding of education Completed patient verbalize and/or demonstrate understanding of nursing education completed today. Education methods include: verbal cues. Further education required to improve knowledge and compliance with diabetic care management, fall prevention/home safety strategies, genitourinary care management and medication management. Catheter- Instruct Patient/Caregiver on use and management of a urinary catheter Description: Urinary catheter is a craig catheter. Problem:SN Genitourinary disease process Goal:Patient/Caregiv er will verbalize understanding and demonstrate improved management of genitourinary disease/condition. Completed patient instructed on catheter management including: cleansing around catheter insertion site. UTI- Instruct Patient/Caregiver on signs and symptoms of urinary tract infection, treatment measures, measures to prevent reoccurence, and when to notify physician of symptoms Problem:SN Genitourinary disease process Goal:Patient/Caregiv er will verbalize understanding and demonstrate improved management of genitourinary disease/condition. Completed patient instructed on signs and symptoms of UTI and when to notify physician and preventative measures including: drink plenty of liquids, especially water and clean genitalia daily and keep area dry to prevent bacteria and yeast growth. SN to obtain blood specimen (1) Description: Draw blood via venipuncture for BMP with a frequency of once on Date: 03/25/24. Results to Dr. Espinoza. 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 If unable to draw blood through IV access device, may draw blood peripherally. Problem:SN Labwork Goal:SN to obtain lab specimen without difficulty when ordered throughout certification period Other (specify reason) Was already drawn earlier this week. documented in this encounter [facility]'s home Plan of care note* Visit Details Visit Type -ENVIRONMENTAL SUSTAINABILITY MANAGER ROUTINE Discipline -Physical Therapy Problems Problem Description Start Date Status Goals Interve ntions Medication Education Disciplines: Skilled Services 03/19/2023 Active 1 goal linked to scheduled/document ed intervention 1 goal intervention scheduled/documen deangelo in this visit Physician Specific Parameters Disciplines: Skilled Services 03/19/2023 Active 1 goal linked to scheduled/document ed intervention 1 goal intervention scheduled/documen deangelo in this visit Risk for Falls Disciplines: Skilled Services 03/19/2023 Active 1 goal linked to scheduled/document ed intervention 1 goal intervention scheduled/documen deangelo in this visit Diabetic Foot Care Disciplines: Skilled Services 03/19/2023 Active 1 goal linked to scheduled/document ed intervention 1 goal intervention scheduled/documen deangelo in this visit Discharge Disciplines: Skilled Services 03/19/2023 Active 1 goal linked to scheduled/document ed intervention 1 goal intervention scheduled/documen deangelo in this visit PT Impaired Aerobic Capacity Disciplines: PT 03/24/2023 Active 1 goal linked to scheduled/document ed intervention 1 goal intervention scheduled/documen deangelo in this visit PT Impaired muscle performance and/or ROM Disciplines: PT 03/24/2023 Active 1 goal linked to scheduled/document ed intervention 1 goal intervention scheduled/documen deangelo in this visit PT Impaired gait Disciplines: PT 03/24/2023 Active 2 goals linked to scheduled/document ed interventions 2 goal interventions scheduled/documen deangelo in this visit PT Impaired balance Disciplines: PT 03/24/2023 Active 1 goal linked to scheduled/document ed intervention 1 goal intervention scheduled/documen denagelo in this visit PT Learning Assessment Disciplines: PT 03/24/2023 Active 1 goal linked to scheduled/document ed intervention 1 goal intervention scheduled/documen deangelo in this visit PT Cardiovascular Disease Disciplines: PT 03/24/2023 Active 1 goal linked to scheduled/document ed intervention 1 goal intervention scheduled/documen deangelo in this visit Goals Goal Associated Problem Outcome Goal Met? Visit Notes Patient/caregiver will demonstrate ability to obtain, store, identify and administer ordered medications, keep accurate medication list in home, and adhere to medication schedule Description: Patient/caregiver will demonstrate ability to obtain, store, identify and administer ordered medications, keep accurate medication list in home, and adhere to medication schedule by 04/10/23. Medication Education No Patient to maintain parameters within physician-specified ranges throughout certification period Physician Specific Parameters No Manage Risk for falls Description: Patient/caregiver will verbalize knowledge of individualized fall prevention strategies by 04/10/23. Risk for Falls No Manage diabetic foot care Description: Patient/caregiver will demonstrate basic understanding of and compliance with diabetic self-care management as evidenced by verbalizing purpose of daily foot care and assessment by 04/10/23. Diabetic Foot Care No Manage discharge planning Description: Patient/caregiver will verbalize understanding of ongoing discharge plan provided related to disease management, arrangements for outpatient and/or community services, obtaining medications, supplies, and DME, as needed throughout certification period. Discharge No Improved Aerobic Capacity Description: LTG: Patient will demonstrate improved aerobic capacity to meet functional goals as evidenced by Rate of Percieved Exertion (RPE) of 3/10 during walking activity, to be achieved by 04/20/23. . PT Impaired Aerobic Capacity No Improved Muscle Performance and/or ROM Description: LTG: Patient will demonstrate improved muscle performance to meet functional goals as evidenced by ability to tolerate 10 min utes of standing activity, to be achieved by 04/20/23. STG: Patient and/or caregiver will verbalize/demonstrate independence with home exercise program, to improve functional mobility, to be achieved by 03/30/23. PT Impaired muscle performance and/or ROM No Improved Stair Climbing Description: LTG: Patient will demonstrate improved stair negotiation as evidenced by ascend/descend 5 steps with railing independently, to safely access community and exit home, to be achieved by 04/20/23. . PT Impaired gait No Improved Gait Description: STG: Patient will demonstrate improved gait ability as evidenced by ambulation 150 feet with front wheeled walker independently with AD, in order to maneuver throughout home safely with good gait pattern , to be achieved by 04/06/23. LTG: Patient will demonstrate improved gait ability as evidenced by ambulation 150 feet with single point cane independently with AD, to return to safe household and community ambulation, in order to return to plf , to be achieved by 04/20/23. . PT Impaired gait No Improved Balance Description: LTG: Patient will demonstrate improved standing balance to meet functional goals as evidenced by TUG score of <18 to be achieved by 04/20/23. . PT Impaired balance No Demonstrate understanding of education Description: Patient and/or caregiver will understand educational instruction to be achieved by 05/17/23. . PT Learning Assessment No Manage Secondary Cardiovascular disease Description: Improve patient and/or caregiver understanding of secondary cardiovascular disease management as evidenced by patient and/or caregiver able to verbalize, demonstrate, and teach back instruction, to be achieved by 05/17/23. PT Cardiovascular Disease No Interventions Intervention Associated Problem/Goal Status Variance Visit Notes Medication Education Description: Evaluate/instruct patient/caregiver on obtaining, storing, identifying and administering ordered medications as well as keeping accurate medication list in the home and adhereing to medication schedule Problem:Medication Education Goal:Patient/caregive r will demonstrate ability to obtain, store, identify and administer ordered medications, keep accurate medication list in home, and adhere to medication schedule Completed Patient instructed on adhering to medication schedule. SPO2 Description: Notify Dr. Espinoza if pulse ox is <92% at rest. Problem:Physician Specific Parameters Goal:Patient to maintain parameters within physician-specified ranges throughout certification period Completed Instruct on individual fall risk factors and strategies to prevent falls and injuries caused by falls. Problem:Risk for Falls Goal:Manage Risk for falls Completed PT: Patient instructed on Eliminating Environmental Hazards: Keep pathways clear, Keep pets out of pathways, Wear supportive shoes or non-skid socks and Keep frequently used items within reach Managing Impaired Functional Mobility: Use assistive device(s): front wheeled walker Monitor lower extremities for skin lesions and educate on proper foot care Problem:Diabetic Foot Care Goal:Manage diabetic foot care Completed patient instructed on diabetic foot care including wearing proper footwear/avoiding going barefoot. Instruct on ongoing discharge plan Problem:Discharge Goal:Manage discharge planning Completed Ongoing Discharge plan: Discharge plan discussed with patient including frequency and duration for home PT and plan for transition to: live independently at home without ongoing services. Physical Therapy Aerobic Capacity Training Problem:PT Impaired Aerobic Capacity Goal:Improved Aerobic Capacity Completed patient instructed on utilization of the Rate of Percieved Exertion (RPE) scale, to not exceed 3-6/10 indicating moderate to heavy intensity of activity. Developed, implemented, and instructed patient on physical therapy interventions completing 10 minutes of paced and physiologically monitored activity. Physical Therapy Therapeutic Exercises Problem:PT Impaired muscle performance and/or ROM Goal:Improved Muscle Performance and/or ROM Completed patient instructed on strengthening and range of motion exercises including seatedL LAQ, hip flexion, AP: 2 sets of 5 each supine: heel slides, SAQ, hip add/abd x 10 with verbal, tactile, visual and written cues for slow pace on all for max benefit. patient instructed to perform home exercise program daily which included all the above as tolerated, stop if SOB/chest pain. Physical Therapy Stair Training Problem:PT Impaired gait Goal:Improved Stair Climbing Completed Stair training and instruction to patient on safe stair climbing, ascend/descend 1 steps, with railing and with fww with supervision and verbal and visual cues for use of grab bar and walker safety. Physical Therapy Gait Training Problem:PT Impaired gait Goal:Improved Gait Completed Gait training and instruction to patient on safe ambulation with front wheeled walker for 40 feet with supervision and stand by assist, with verbal and visual cues for corrections of gait deviations including decr step height RLE. Physical Therapy Balance Training Problem:PT Impaired balance Goal:Improved Balance Completed Developed, implemented, and instructed patient on standing balance exercises including calf raises, hip abd x 10, 2 hand support on sink. Instruct and educate on knowledge deficits Problem:PT Learning Assessment Goal:Demonstrate understanding of education Completed patient verbalize and/or demonstrate understanding of physical therapy education including fall prevention strategies, functional activity and home exercise program. Education methods include: verbal cues, tactile cues, written instructions and visual cues. Further education required to improve knowledge and compliance with functional activity. Instruct on signs, symptoms, and management of secondary cardiovascular disease Problem:PT Cardiovascular Disease Goal:Manage Secondary Cardiovascular disease Completed Instructed patient on energy conservation and exercise and activity guidelines. documented in this encounter [facility]'s home Plan of care note* Visit Details Visit Type -ENVIRONMENTAL SUSTAINABILITY MANAGER ROUTINE Discipline -Physical Therapy Problems Problem Description Start Date Status Goals Interve ntions Medication Education Disciplines: Skilled Services 03/19/2023 Active 1 goal linked to scheduled/document ed intervention 1 goal intervention scheduled/document ed in this visit Sepsis Disciplines: Skilled Services 03/19/2023 Active 1 goal linked to scheduled/document ed intervention 1 goal intervention scheduled/document ed in this visit Physician Specific Parameters Disciplines: Skilled Services 03/19/2023 Active 1 goal linked to scheduled/document ed intervention 1 goal intervention scheduled/document ed in this visit Discharge Disciplines: Skilled Services 03/19/2023 Active 1 goal linked to scheduled/document ed intervention 1 goal intervention scheduled/document ed in this visit PT Impaired Aerobic Capacity Disciplines: PT 03/24/2023 Active 1 goal linked to scheduled/document ed intervention 1 goal intervention scheduled/document ed in this visit PT Impaired muscle performance and/or ROM Disciplines: PT 03/24/2023 Active 1 goal linked to scheduled/document ed intervention 1 goal intervention scheduled/document ed in this visit PT Impaired gait Disciplines: PT 03/24/2023 Active 2 goals linked to scheduled/document ed interventions 2 goal interventions scheduled/document ed in this visit PT Learning Assessment Disciplines: PT 03/24/2023 Active 1 goal linked to scheduled/document ed intervention 1 goal intervention scheduled/document ed in this visit Goals Goal Associated Problem Outcome Goal Met? Visit Notes Patient/caregiver will demonstrate ability to obtain, store, identify and administer ordered medications, keep accurate medication list in home, and adhere to medication schedule Description: Patient/caregiver will demonstrate ability to obtain, store, identify and administer ordered medications, keep accurate medication list in home, and adhere to medication schedule by 04/10/23. Medication Education No Patient/caregiver will be able to identify and report symptoms of sepsis Description: Patient/caregiver will be able to identify signs/symptoms of sepsis infection and will verbalize actions to take if suspected by 04/10/23. Sepsis No Patient to maintain parameters within physician-specified ranges throughout certification period Physician Specific Parameters No Manage discharge planning Description: Patient/caregiver will verbalize understanding of ongoing discharge plan provided related to disease management, arrangements for outpatient and/or community services, obtaining medications, supplies, and DME, as needed throughout certification period. Discharge No Improved Aerobic Capacity Description: LTG: Patient will demonstrate improved aerobic capacity to meet functional goals as evidenced by Rate of Percieved Exertion (RPE) of 3/10 during walking activity, to be achieved by 04/20/23. updated 04/19/23 to be achieved by 05/03/23 . PT Impaired Aerobic Capacity No Improved Muscle Performance and/or ROM Description: LTG: Patient will demonstrate improved muscle performance to meet functional goals as evidenced by ability to tolerate 10 min utes of standing activity, to be achieved by 04/20/23. Updated 04/19/23 : to be achieved by 05/03/23 STG: Patient and/or caregiver will verbalize/demonstrate independence with home exercise program, to improve functional mobility, to be achieved by 03/30/23. PT Impaired muscle performance and/or ROM No Improved Stair Climbing Description: LTG: Patient will demonstrate improved stair negotiation as evidenced by ascend/descend 5 steps with railing independently, to safely access community and exit home, to be achieved by 04/20/23. Updated 04/19/23 : to be achieved by 05/03/23 PT Impaired gait No Improved Gait Description: STG: Patient will demonstrate improved gait ability as evidenced by ambulation 150 feet with front wheeled walker independently with AD, in order to maneuver throughout home safely with good gait pattern , to be achieved by 04/06/23. LTG: Patient will demonstrate improved gait ability as evidenced by ambulation 150 feet with single point cane independently with AD, to return to safe household and community ambulation, in order to return to plf , to be achieved by 04/20/23. Updated 04/19/23 : to be achieved by 05/03/23 . PT Impaired gait No Demonstrate understanding of education Description: Patient and/or caregiver will understand educational instruction to be achieved by 05/17/23. .Updated 04/19/23 : to be achieved by 05/03/23 PT Learning Assessment No Interventions Intervention Associated Problem/Goal Status Variance Visit Notes Medication Education Description: Evaluate/instruct patient/caregiver on obtaining, storing, identifying and administering ordered medications as well as keeping accurate medication list in the home and adhereing to medication schedule Problem:Medication Education Goal:Patient/caregive r will demonstrate ability to obtain, store, identify and administer ordered medications, keep accurate medication list in home, and adhere to medication schedule Completed Patient instructed on importance of keeping accurate medication list in home and adhering to medication schedule. Risk of Sepsis Description: Patient is at risk for sepsis. Monitor closely for s/s of sepsis. Problem:Sepsis Goal:Patient/caregive r will be able to identify and report symptoms of sepsis Completed SPO2 Description: Notify Dr. Espinoza if pulse ox is <92% at rest. Problem:Physician Specific Parameters Goal:Patient to maintain parameters within physician-specified ranges throughout certification period Completed Instruct on ongoing discharge plan Problem:Discharge Goal:Manage discharge planning Completed Ongoing Discharge plan: Discharge plan discussed with patient including frequency and duration for home PT and plan for transition to: caregiver assistance. Physical Therapy Aerobic Capacity Training Problem:PT Impaired Aerobic Capacity Goal:Improved Aerobic Capacity Completed patient instructed on utilization of the Rate of Percieved Exertion (RPE) scale, to not exceed 3-6/10 indicating moderate to heavy intensity of activity. Developed, implemented, and instructed patient on physical therapy interventions completing 15-20 minutes of paced activity. Physical Therapy Therapeutic Exercises Problem:PT Impaired muscle performance and/or ROM Goal:Improved Muscle Performance and/or ROM Completed patient instructed on strengthening exercises including standing heel raises, hip abd and flex and hams curls x's 10 each, seated laq and hip flex x's 10 each. supine quad sets, heel slides, hip abd and add, saq x's 10 each with verbal, visual and written cues for correct form. patient instructed to perform home exercise program twice a day which included above ex. Physical Therapy Stair Training Problem:PT Impaired gait Goal:Improved Stair Climbing Completed Stair training and instruction to patient on safe stair climbing, ascend/descend 1 steps x's 2 with grab bar with supervision and verbal cues for safety. Physical Therapy Gait Training Problem:PT Impaired gait Goal:Improved Gait Completed Gait training and instruction to patient on safe ambulation with front wheeled walker for 2s 50 feet with supervision, with verbal cues for corrections of gait deviations including posture. Instruct and educate on knowledge deficits Problem:PT Learning Assessment Goal:Demonstrate understanding of education Completed patient verbalize and/or demonstrate understanding of physical therapy education including home exercise program. Education methods include: verbal cues, written instructions and visual cues. Further education required to improve knowledge and compliance with home exercise program. [facility] Visit Details Visit Type -ENVIRONMENTAL SUSTAINABILITY MANAGER ROUTINE Discipline -Physical Therapy Problems Problem Description Start Date Status Goals Interve ntions Medication Education Disciplines: Skilled Services 03/19/2023 Active 1 goal linked to scheduled/document ed intervention 1 goal intervention scheduled/documen deangelo in this visit Sepsis Disciplines: Skilled Services 03/19/2023 Active 1 goal linked to scheduled/document ed intervention 1 goal intervention scheduled/documen deangelo in this visit Physician Specific Parameters Disciplines: Skilled Services 03/19/2023 Active 1 goal linked to scheduled/document ed intervention 1 goal intervention scheduled/documen deangelo in this visit Risk for Falls Disciplines: Skilled Services 03/19/2023 Active 1 goal linked to scheduled/document ed intervention 1 goal intervention scheduled/documen deangelo in this visit Diabetic Foot Care Disciplines: Skilled Services 03/19/2023 Active 1 goal linked to scheduled/document ed intervention 1 goal intervention scheduled/documen deangelo in this visit Discharge Disciplines: Skilled Services 03/19/2023 Active 1 goal linked to scheduled/document ed intervention 1 goal intervention scheduled/documen deangelo in this visit PT Impaired muscle performance and/or ROM Disciplines: PT 03/24/2023 Active 1 goal linked to scheduled/document ed intervention 1 goal intervention scheduled/documen deangelo in this visit PT Impaired gait Disciplines: PT 03/24/2023 Active 2 goals linked to scheduled/document ed interventions 2 goal interventions scheduled/documen deangelo in this visit PT Impaired balance Disciplines: PT 03/24/2023 Active 1 goal linked to scheduled/document ed intervention 1 goal intervention scheduled/documen deangelo in this visit PT Learning Assessment Disciplines: PT 03/24/2023 Active 1 goal linked to scheduled/document ed intervention 1 goal intervention scheduled/documen deangelo in this visit PT Cardiovascular Disease Disciplines: PT 03/24/2023 Active 1 goal linked to scheduled/document ed intervention 1 goal intervention scheduled/documen deangelo in this visit Goals Goal Associated Problem Outcome Goal Met? Visit Notes Patient/caregiver will demonstrate ability to obtain, store, identify and administer ordered medications, keep accurate medication list in home, and adhere to medication schedule Description: Patient/caregiver will demonstrate ability to obtain, store, identify and administer ordered medications, keep accurate medication list in home, and adhere to medication schedule by 04/10/23. Medication Education No Patient/caregiver will be able to identify and report symptoms of sepsis Description: Patient/caregiver will be able to identify signs/symptoms of sepsis infection and will verbalize actions to take if suspected by 04/10/23. Sepsis No Patient to maintain parameters within physician-specified ranges throughout certification period Physician Specific Parameters No Manage Risk for falls Description: Patient/caregiver will verbalize knowledge of individualized fall prevention strategies by 04/10/23. Risk for Falls No Manage diabetic foot care Description: Patient/caregiver will demonstrate basic understanding of and compliance with diabetic self-care management as evidenced by verbalizing purpose of daily foot care and assessment by 04/10/23. Diabetic Foot Care No Manage discharge planning Description: Patient/caregiver will verbalize understanding of ongoing discharge plan provided related to disease management, arrangements for outpatient and/or community services, obtaining medications, supplies, and DME, as needed throughout certification period. Discharge No Improved Muscle Performance and/or ROM Description: LTG: Patient will demonstrate improved muscle performance to meet functional goals as evidenced by ability to tolerate 10 min utes of standing activity, to be achieved by 04/20/23. STG: Patient and/or caregiver will verbalize/demonstrate independence with home exercise program, to improve functional mobility, to be achieved by 03/30/23. PT Impaired muscle performance and/or ROM No Improved Stair Climbing Description: LTG: Patient will demonstrate improved stair negotiation as evidenced by ascend/descend 5 steps with railing independently, to safely access community and exit home, to be achieved by 04/20/23. . PT Impaired gait No Improved Gait Description: STG: Patient will demonstrate improved gait ability as evidenced by ambulation 150 feet with front wheeled walker independently with AD, in order to maneuver throughout home safely with good gait pattern , to be achieved by 04/06/23. LTG: Patient will demonstrate improved gait ability as evidenced by ambulation 150 feet with single point cane independently with AD, to return to safe household and community ambulation, in order to return to plf , to be achieved by 04/20/23. . PT Impaired gait No Improved Balance Description: LTG: Patient will demonstrate improved standing balance to meet functional goals as evidenced by TUG score of <18 to be achieved by 04/20/23. . PT Impaired balance No Demonstrate understanding of education Description: Patient and/or caregiver will understand educational instruction to be achieved by 05/17/23. . PT Learning Assessment No Manage Secondary Cardiovascular disease Description: Improve patient and/or caregiver understanding of secondary cardiovascular disease management as evidenced by patient and/or caregiver able to verbalize, demonstrate, and teach back instruction, to be achieved by 05/17/23. PT Cardiovascular Disease No Interventions Intervention Associated Problem/Goal Status Variance Visit Notes Medication Education Description: Evaluate/instruct patient/caregiver on obtaining, storing, identifying and administering ordered medications as well as keeping accurate medication list in the home and adhereing to medication schedule Problem:Medication Education Goal:Patient/caregiver will demonstrate ability to obtain, store, identify and administer ordered medications, keep accurate medication list in home, and adhere to medication schedule Completed Patient and caregiver instructed on importance of keeping accurate medication list in home and adhering to medication schedule. Risk of Sepsis Description: Patient is at risk for sepsis. Monitor closely for s/s of sepsis. Problem:Sepsis Goal:Patient/caregiver will be able to identify and report symptoms of sepsis Completed SPO2 Description: Notify Dr. Espinoza if pulse ox is <92% at rest. Problem:Physician Specific Parameters Goal:Patient to maintain parameters within physician-specified ranges throughout certification period Completed Instruct on individual fall risk factors and strategies to prevent falls and injuries caused by falls. Problem:Risk for Falls Goal:Manage Risk for falls Completed PT: Patient instructed on Managing Impaired Functional Mobility: Use assistive device(s): front wheeled walker Monitor lower extremities for skin lesions and educate on proper foot care Problem:Diabetic Foot Care Goal:Manage diabetic foot care Completed patient instructed on diabetic foot care including wearing proper footwear/avoiding going barefoot. Instruct on ongoing discharge plan Problem:Discharge Goal:Manage discharge planning Completed Ongoing Discharge plan: Discharge plan discussed with patient including frequency and duration for home PT and plan for transition to: caregiver assistance. Physical Therapy Therapeutic Exercises Problem:PT Impaired muscle performance and/or ROM Goal:Improved Muscle Performance and/or ROM Completed patient instructed on strengthening exercises including seated laq and hip flexion, supine quad and glut sets, hip abd and add, saq and heel slides x's 10each standing hip flexion and hams curls xs 10 each with verbal, tactile and visual cues for posture and form. patient instructed to perform home exercise program twice a day which included above ex. Physical Therapy Stair Training Problem:PT Impaired gait Goal:Improved Stair Climbing Completed Stair training and instruction to patient on safe stair climbing, ascend/descend 1 steps x's 2, with grab bar with supervision and verbal cues for safety. Physical Therapy Gait Training Problem:PT Impaired gait Goal:Improved Gait Completed Gait training and instruction to patient on safe ambulation with front wheeled walker for 2x's 75 feet with supervision, with verbal and tactile cues for corrections of gait deviations including posture. Physical Therapy Balance Training Problem:PT Impaired balance Goal:Improved Balance Completed Developed, implemented, and instructed patient on standing balance exercises including standing exercises w/ Wily UE support. Instruct and educate on knowledge deficits Problem:PT Learning Assessment Goal:Demonstrate understanding of education Completed patient verbalize and/or demonstrate understanding of physical therapy education including home exercise program. Education methods include: verbal cues. Further education required to improve knowledge and compliance with home exercise program. Instruct on signs, symptoms, and management of secondary cardiovascular disease Problem:PT Cardiovascular Disease Goal:Manage Secondary Cardiovascular disease Completed Instructed patient on energy conservation. [facility] Visit Details Visit Type -PT REASSESSMENT Discipline -Physical Therapy Problems Problem Description Start Date Status Goals Interve ntions Medication Education Disciplines: Skilled Services 03/19/2023 Active 1 goal linked to scheduled/documente d intervention 1 goal intervention scheduled/documente d in this visit Sepsis Disciplines: Skilled Services 03/19/2023 Active 1 goal linked to scheduled/documente d intervention 1 goal intervention scheduled/documente d in this visit Physician Specific Parameters Disciplines: Skilled Services 03/19/2023 Active 1 goal linked to scheduled/documente d intervention 1 goal intervention scheduled/documente d in this visit Risk for Falls Disciplines: Skilled Services 03/19/2023 Active 1 goal linked to scheduled/documente d intervention 1 goal intervention scheduled/documente d in this visit PT Impaired Aerobic Capacity Disciplines: PT 03/24/2023 Active 1 goal linked to scheduled/documente d intervention 1 goal intervention scheduled/documente d in this visit PT Impaired gait Disciplines: PT 03/24/2023 Active 1 goal linked to scheduled/documente d intervention 1 goal intervention scheduled/documente d in this visit PT Learning Assessment Disciplines: PT 03/24/2023 Active 1 goal linked to scheduled/documente d intervention 1 goal intervention scheduled/documente d in this visit Goals Goal Associated Problem Outcome Goal Met? Visit Notes Patient/caregiver will demonstrate ability to obtain, store, identify and administer ordered medications, keep accurate medication list in home, and adhere to medication schedule Description: Patient/caregiver will demonstrate ability to obtain, store, identify and administer ordered medications, keep accurate medication list in home, and adhere to medication schedule by 04/10/23. Medication Education No Patient/caregiver will be able to identify and report symptoms of sepsis Description: Patient/caregiver will be able to identify signs/symptoms of sepsis infection and will verbalize actions to take if suspected by 04/10/23. Sepsis No Patient to maintain parameters within physician-specified ranges throughout certification period Physician Specific Parameters No Manage Risk for falls Description: Patient/caregiver will verbalize knowledge of individualized fall prevention strategies by 04/10/23. Risk for Falls No Improved Aerobic Capacity Description: LTG: Patient will demonstrate improved aerobic capacity to meet functional goals as evidenced by Rate of Percieved Exertion (RPE) of 3/10 during walking activity, to be achieved by 04/20/23. updated 04/19/23 to be achieved by 05/03/23 . PT Impaired Aerobic Capacity No Improved Gait Description: STG: Patient will demonstrate improved gait ability as evidenced by ambulation 150 feet with front wheeled walker independently with AD, in order to maneuver throughout home safely with good gait pattern , to be achieved by 04/06/23. LTG: Patient will demonstrate improved gait ability as evidenced by ambulation 150 feet with single point cane independently with AD, to return to safe household and community ambulation, in order to return to plf , to be achieved by 04/20/23. Updated 04/19/23 : to be achieved by 05/03/23 . PT Impaired gait No Demonstrate understanding of education Description: Patient and/or caregiver will understand educational instruction to be achieved by 05/17/23. .Updated 04/19/23 : to be achieved by 05/03/23 PT Learning Assessment No Interventions Intervention Associated Problem/Goal Status Variance Visit Notes Medication Education Description: Evaluate/instruct patient/caregiver on obtaining, storing, identifying and administering ordered medications as well as keeping accurate medication list in the home and adhereing to medication schedule Problem:Medication Education Goal:Patient/caregive r will demonstrate ability to obtain, store, identify and administer ordered medications, keep accurate medication list in home, and adhere to medication schedule Completed Patient instructed on adhering to medication schedule. Risk of Sepsis Description: Patient is at risk for sepsis. Monitor closely for s/s of sepsis. Problem:Sepsis Goal:Patient/caregive r will be able to identify and report symptoms of sepsis Completed SPO2 Description: Notify Dr. Espinoza if pulse ox is <92% at rest. Problem:Physician Specific Parameters Goal:Patient to maintain parameters within physician-specified ranges throughout certification period Completed Instruct on individual fall risk factors and strategies to prevent falls and injuries caused by falls. Problem:Risk for Falls Goal:Manage Risk for falls Completed PT: Patient instructed on Eliminating Environmental Hazards: Keep pathways clear, Keep rooms and walkways well lit and Keep frequently used items within reach Managing Impaired Functional Mobility: Use assistive device(s): front wheeled walker Physical Therapy Aerobic Capacity Training Problem:PT Impaired Aerobic Capacity Goal:Improved Aerobic Capacity Completed patient instructed on utilization of the Rate of Percieved Exertion (RPE) scale, to not exceed 3-6/10 indicating moderate to heavy intensity of activity. Developed, implemented, and instructed patient on physical therapy interventions completing 6 minutes of continuous activity. Physical Therapy Gait Training Problem:PT Impaired gait Goal:Improved Gait Completed Gait training and instruction to patient on safe ambulation with single point cane lowered significantly for 60 feet x 2 with stand by assist unsteady with turns, with verbal and visual cues for corrections of gait deviations including upright posture and equal step length. Pt with ER, flexed knees R kyphosis, scoliosis, FWW to be used moving forward until further instruction with cane Instruct and educate on knowledge deficits Problem:PT Learning Assessment Goal:Demonstrate understanding of education Completed patient verbalize and/or demonstrate understanding of physical therapy education including fall prevention strategies, functional activity and home exercise program. Education methods include: verbal cues. Further education required to improve knowledge and compliance with fall prevention strategies, functional activity and home exercise program. [facility] Visit Details Visit Type -PT AGENCY DC W Dev PARNELLT Discipline -Physical Therapy Problems Problem Description Start Date Status Goals Interve ntions Medication Education Disciplines: Skilled Services 03/19/2023 Resolved on 05/01/2023 1 goal linked to scheduled/documen deangelo intervention 1 goal intervention scheduled/documen deangelo in this visit Sepsis Disciplines: Skilled Services 03/19/2023 Resolved on 05/01/2023 1 goal linked to scheduled/documen deangelo intervention 1 goal intervention scheduled/documen deangelo in this visit Physician Specific Parameters Disciplines: Skilled Services 03/19/2023 Resolved on 05/01/2023 1 goal linked to scheduled/documen deangelo intervention 1 goal intervention scheduled/documen deangelo in this visit Risk for Falls Disciplines: Skilled Services 03/19/2023 Resolved on 05/01/2023 1 goal linked to scheduled/documen deangelo intervention 1 goal intervention scheduled/documen deangelo in this visit Diabetic Foot Care Disciplines: Skilled Services 03/19/2023 Resolved on 05/01/2023 1 goal linked to scheduled/documen deangelo intervention 1 goal intervention scheduled/documen deangelo in this visit High Risk Medications Disciplines: Skilled Services 03/19/2023 Resolved on 05/01/2023 1 goal linked to scheduled/documen deangelo intervention Discharge Disciplines: Skilled Services 03/19/2023 Resolved on 05/01/2023 1 goal linked to scheduled/documen deangelo intervention 1 goal intervention scheduled/documen deangelo in this visit PT Impaired Aerobic Capacity Disciplines: PT 03/24/2023 Resolved on 05/01/2023 1 goal linked to scheduled/documen deangelo intervention 1 goal intervention scheduled/documen deangelo in this visit PT Impaired muscle performance and/or ROM Disciplines: PT 03/24/2023 Resolved on 05/01/2023 1 goal linked to scheduled/documen deangelo intervention 1 goal intervention scheduled/documen deangelo in this visit PT Impaired gait Disciplines: PT 03/24/2023 Resolved on 05/01/2023 2 goals linked to scheduled/documen deangelo interventions 2 goal interventions scheduled/documen deangelo in this visit PT Impaired balance Disciplines: PT 03/24/2023 Resolved on 05/01/2023 1 goal linked to scheduled/documen deangelo intervention 1 goal intervention scheduled/documen deangelo in this visit PT Learning Assessment Disciplines: PT 03/24/2023 Resolved on 05/01/2023 1 goal linked to scheduled/documen deangelo intervention 1 goal intervention scheduled/documen deangelo in this visit PT Cardiovascular Disease Disciplines: PT 03/24/2023 Resolved on 05/01/2023 1 goal linked to scheduled/documen deangelo intervention 1 goal intervention scheduled/documen deangelo in this visit Goals Goal Associated Problem Outcome Goal Met? Visit Notes Patient/caregiver will demonstrate ability to obtain, store, identify and administer ordered medications, keep accurate medication list in home, and adhere to medication schedule Description: Patient/caregiver will demonstrate ability to obtain, store, identify and administer ordered medications, keep accurate medication list in home, and adhere to medication schedule by 04/10/23. Medication Education Completed Yes Patient/caregiver will be able to identify and report symptoms of sepsis Description: Patient/caregiver will be able to identify signs/symptoms of sepsis infection and will verbalize actions to take if suspected by 04/10/23. Sepsis Completed Yes Patient to maintain parameters within physician-specified ranges throughout certification period Physician Specific Parameters Completed Yes Manage Risk for falls Description: Patient/caregiver will verbalize knowledge of individualized fall prevention strategies by 04/10/23. Risk for Falls Completed Yes Manage diabetic foot care Description: Patient/caregiver will demonstrate basic understanding of and compliance with diabetic self-care management as evidenced by verbalizing purpose of daily foot care and assessment by 04/10/23. Diabetic Foot Care Completed Yes Patient/caregiver will teach back high risk medication side effect and precaution education High Risk Medications Completed Yes Manage discharge planning Description: Patient/caregiver will verbalize understanding of ongoing discharge plan provided related to disease management, arrangements for outpatient and/or community services, obtaining medications, supplies, and DME, as needed throughout certification period. Discharge Completed Yes Improved Aerobic Capacity Description: LTG: Patient will demonstrate improved aerobic capacity to meet functional goals as evidenced by Rate of Percieved Exertion (RPE) of 3/10 during walking activity, to be achieved by 04/20/23. updated 04/19/23 to be achieved by 05/03/23 . PT Impaired Aerobic Capacity Completed Yes Improved Muscle Performance and/or ROM Description: LTG: Patient will demonstrate improved muscle performance to meet functional goals as evidenced by ability to tolerate 10 min utes of standing activity, to be achieved by 04/20/23. Updated 04/19/23 : to be achieved by 05/03/23 STG: Patient and/or caregiver will verbalize/demonstrate independence with home exercise program, to improve functional mobility, to be achieved by 03/30/23. PT Impaired muscle performance and/or ROM Completed Yes Improved Stair Climbing Description: LTG: Patient will demonstrate improved stair negotiation as evidenced by ascend/descend 5 steps with railing independently, to safely access community and exit home, to be achieved by 04/20/23. Updated 04/19/23 : to be achieved by 05/03/23 PT Impaired gait Completed Yes Improved Gait Description: STG: Patient will demonstrate improved gait ability as evidenced by ambulation 150 feet with front wheeled walker independently with AD, in order to maneuver throughout home safely with good gait pattern , to be achieved by 04/06/23. LTG: Patient will demonstrate improved gait ability as evidenced by ambulation 150 feet with single point cane independently with AD, to return to safe household and community ambulation, in order to return to plf , to be achieved by 04/20/23. Updated 04/19/23 : to be achieved by 05/03/23 . PT Impaired gait Completed Yes Improved Balance Description: LTG: Patient will demonstrate improved standing balance to meet functional goals as evidenced by TUG score of <18 to be achieved by 04/20/23. updated 04/19/23 to be achieved by 05/03/23: Patient will demonstrate improved standing balance to meet functional goals as evidenced by TUG score of <18 with cane indep . PT Impaired balance Completed Yes Demonstrate understanding of education Description: Patient and/or caregiver will understand educational instruction to be achieved by 05/17/23. .Updated 04/19/23 : to be achieved by 05/03/23 PT Learning Assessment Completed Yes Manage Secondary Cardiovascular disease Description: Improve patient and/or caregiver understanding of secondary cardiovascular disease management as evidenced by patient and/or caregiver able to verbalize, demonstrate, and teach back instruction, to be achieved by 05/17/23. updated 04/19/23 to be achieved by 05/03/23 PT Cardiovascular Disease Completed Yes Interventions Intervention Associated Problem/Goal Status Variance Visit Notes Medication Education Description: Evaluate/instruct patient/caregiver on obtaining, storing, identifying and administering ordered medications as well as keeping accurate medication list in the home and adhereing to medication schedule Problem:Medication Education Goal:Patient/caregiver will demonstrate ability to obtain, store, identify and administer ordered medications, keep accurate medication list in home, and adhere to medication schedule Completed Patient instructed on importance of keeping accurate medication list in home and adhering to medication schedule. Risk of Sepsis Description: Patient is at risk for sepsis. Monitor closely for s/s of sepsis. Problem:Sepsis Goal:Patient/caregiver will be able to identify and report symptoms of sepsis Completed SPO2 Description: Notify Dr. Espinoza if pulse ox is <92% at rest. Problem:Physician Specific Parameters Goal:Patient to maintain parameters within physician-specified ranges throughout certification period Completed Instruct on individual fall risk factors and strategies to prevent falls and injuries caused by falls. Problem:Risk for Falls Goal:Manage Risk for falls Completed PT: Patient instructed on Eliminating Environmental Hazards: Keep pathways clear, Keep pets out of pathways, Remove unsafe rugs and Move furniture from pathways Managing Impaired Functional Mobility: Use assistive device(s): single point cane Managing Pain Monitor lower extremities for skin lesions and educate on proper foot care Problem:Diabetic Foot Care Goal:Manage diabetic foot care Completed patient instructed on diabetic foot care including daily skin inspection and wearing proper footwear/avoiding going barefoot. Instruct on final discharge plan and deliver discharge instructions Problem:Discharge Goal:Manage discharge planning Completed Delivered Discharge plan: Discharge plan discussed with patient for plan for transition to: live independently at home without ongoing services Physical Therapy Aerobic Capacity Training Problem:PT Impaired Aerobic Capacity Goal:Improved Aerobic Capacity Completed patient instructed on utilization of the Rate of Percieved Exertion (RPE) scale, to not exceed 3-6/10 indicating moderate to heavy intensity of activity. Developed, implemented, and instructed patient on physical therapy interventions completing 10 minutes of continuous activity. Physical Therapy Therapeutic Exercises Problem:PT Impaired muscle performance and/or ROM Goal:Improved Muscle Performance and/or ROM Completed patient instructed on strengthening exercises including standing heel raises, hip abd and flexion, hams curls and 1/4 squats x's 15 each, seated faq and hip flexion x's 15 each with verbal, tactile and visual cues for upright posture. patient instructed to perform home exercise program twice a day which included above ex. Physical Therapy Stair Training Problem:PT Impaired gait Goal:Improved Stair Climbing Completed up and down 4 steps with rail + cane descends sideways ascends straight forward Physical Therapy Gait Training Problem:PT Impaired gait Goal:Improved Gait Completed Gait training and instruction to patient on safe ambulation with single point cane for 2x's 60 feet with supervision, with verbal cues for corrections of gait deviations including posture. Physical Therapy Balance Training Problem:PT Impaired balance Goal:Improved Balance Completed pt demonstrates improved dynamic standing balance as evidenced by a TUG of 17 Instruct and educate on knowledge deficits Problem:PT Learning Assessment Goal:Demonstrate understanding of education Completed patient verbalize and/or demonstrate understanding of physical therapy education including fall prevention strategies, home safety, functional activity and home exercise program. Education methods include: verbal cues. Instruct on signs, symptoms, and management of secondary cardiovascular disease Problem:PT Cardiovascular Disease Goal:Manage Secondary Cardiovascular disease Completed Instructed patient on energy conservation and exercise and activity guidelines. documented in this encounter [facility] for referral (narrative)* Outpatient Procedure (Routine) - Authorized Specialty Diagnoses / Procedures Referred By Contac t Referred To Contact [facility] Diagnoses Arteriosclerosis of both carotid arteries Procedures US CAROTID ARTERIES WILY VAS LAB DUPLEX SCAN EXTRACRANIAL ART COMPL BI STUDY Antony Espinoza MD [address] [place] [address] [facility] [address] [place] [address] Referral ID Status Reason Start Date Expiration Date Visits Requested Visits Authorized [id number] Authorized Auto-Generat ed Referral 05/07/2022 05/07/2023 1 1 [facility] for referral (narrative)* Diagnostic Procedure Only (Routine) - Pending Review Specialty Diagnoses / Procedures Referred By Contac t Referred To Contact XR IMAGING Diagnoses Hypercalcemia Hyperparathyroidism (HCC) Procedures DXA-FOREARM SKELETON DXA BONE DENSITY STUDY 1/>SITES Shanthi Aguilera MD [address] [place] [address] Xr Imaging Referral ID Status Reason Start Date Expiration Date Visits Requested Visits Authorized [id number] Pending Review Auto-Generat ed Referral 06/05/2022 07/05/2023 1 1 [facility] for referral (narrative)* Diagnostic Procedure Only (Routine) - Closed Specialty Diagnoses / Procedures Referred By Contac t Referred To Contact XR IMAGING Diagnoses Hypercalcemia Hyperparathyroidism (HCC) Procedures DXA-FOREARM SKELETON DXA BONE DENSITY STUDY 1/>SITES Shanthi Aguilera MD [address] [place] [address] Xr Imaging Referral ID Status Reason Start Date Expiration Date V isits Requested Visits Authorized [id number] Closed Auto-Generate d Referral 06/05/2022 07/05/2023 1 1 [facility] for referral (narrative)* Diagnostic Procedure Only (Routine) - Closed Specialty Diagnoses / Procedures Referred By Contac t Referred To Contact MOLECULAR & FUNCTIONAL IMAGING Diagnoses Hypercalcemia Procedures NM PARATHYROID W SPECT/CT PARATHYROID IMAGING W/TOMOGRAPHIC SPECT & CT Shanthi Rangel MD [address] [place] [address] [facility] [address] [place] [address] Referral ID Status Reason Start Date Expiration Date V isits Requested Visits Authorized [id number] Closed Auto-Generate d Referral 12/20/2022 02/03/2023 1 1 [facility] for referral (narrative)* Outpatient Procedure (Routine) - Pending Review Specialty Diagnoses / Procedures [facility] Diagnoses Benign prostatic hyperplasia with urinary obstruction Procedures TRUS ONLY US, TRANSRECTAL Shaji Gaona MD [address] [place] [address] [facility] [address] [place] [id number] Referral ID Status Reason Start Date Expiration Date Visits Requested Visits Authorized [id number] Pending Review Auto-Generat ed Referral 2023 2024 1 1 [facility] for visit Narrative* Diagnostic Procedure Only (Routine) - Closed Specialty Diagnoses / Procedures Referred By Contac t Referred To Contact XR IMAGING Diagnoses Hypercalcemia Hyperparathyroidism (HCC) Procedures DXA-FOREARM SKELETON DXA BONE DENSITY STUDY 1/>SITES APPENDICLR Shanthi Michelle MD [address] [place] [address] Xr Imaging Referral ID Status Reason Start Date Expiration Date V isits Requested Visits Authorized [id number] Closed Auto-Generate d Referral 06/05/2022 07/05/2023 1 [facility] Procedure Only (Routine) - Closed Specialty Diagnoses / Procedures Referred By Contac t Referred To Contact MOLECULAR & FUNCTIONAL IMAGING Diagnoses Hypercalcemia Procedures NM PARATHYROID W SPECT/CT PARATHYROID IMAGING W/TOMOGRAPHIC SPECT & CT Shanthi Rangel MD [address] [place] [address] [facility] [address] [place] [address] Referral ID Status Reason Start Date Expiration Date V isits Requested Visits Authorized [id number] Closed Auto-Generate d Referral 12/20/2022 02/03/2023 1 1 [facility] Summary Purpose Family History No Family History Records Found Relationship Condition Age at Onset Recorded Date/T tommy mother Malignant neoplasm Unknown father Cardiac disease Unknown Hypertension Unknown Advance Directives No Advanced Directives Records FoundDocuments on File Type Date Recorded 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 Advance Directive(s) 03/20/2023 1:29 PM Date Activated Date Inactivated Comments 03/19/2023 9:34 PM 05/23/2023 8:32 AM Latest Code Status on File Code Status Date Activated Date Inactivated Comments Full Code 03/19/2023 9:34 PM Documents on File Type Date Recorded 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 Advance Directive(s) 08/29/2020 6:48 AM Advance Directive(s) 08/11/2020 10:04 AM Advance Directive(s) 06/03/2018 7:39 AM Documents on File Type Date Recorded 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 Advance Directive(s) 08/29/2020 6:48 AM Advance Directive(s) 08/11/2020 10:04 AM Advance Directive(s) 06/03/2018 7:39 AM Advance Directive Response Recorded Date/ Time Name of Medical Power of Teletypesetter Operator alex escobar March 05, 2023 9:33pm Advance Directives Yes November 25, 2015 6:44pm Living Will Yes March 05, 2023 9:33pm Power of Teletypesetter Operator Yes March 05 9:33pm Advance Directive Response Recorded Date/ Time Name of Medical Power of Teletypesetter Operator alex escobar March 06, 2023 1:27am Advance Directives Yes November 25, 2015 6:44pm Living Will Yes March 06, 2023 1:27am Power of Teletypesetter Operator Yes March 06 1:27am Documents on File Type Date Recorded 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 Advance Directive(s) 03/20/2023 1:29 PM Latest Code Status on File Code Status Date Activated Date Inactivated Comments Full Code 03/19/2023 9:34 PM Latest Code Status on File Code Status Date Activated Date Inactivated Comments Full Code 03/19/2023 9:34 PM 05/23/2023 8:32 AM Date Activated Date Inactivated Comments 03/19/2023 9:34 PM 05/23/2023 8:32 AM Reason for Referral Specialty Diagnoses / Procedures Referred By Arya t Referred To Contact Endocrinology Diagnoses Hypercalcemia Procedures CONSULT TO ENDOCRINOLOGY OFFICE/OUTPATIENT [facility] 60-74 MINUTES Antony Espinoza MD [address] [place] [address] Referral ID Status Reason Start Date Expiration Date Visits Requested Visits Authorized [id number] Authorized PCP Requested Referral 05/09/2022 05/09/2023 1 1 Specialty Diagnoses / Procedures Referred By Arya t Referred To Contact Diagnoses Primary hyperparathyroidism (HCC) Procedures CONSULT TO ENDOCRINE SURGERY OFFICE/OUTPATIENT [facility] 60-74 MINUTES Shanthi Rangel MD [address] [place] [address] Referral ID Status Reason Start Date Expiration Date Visits Requested Visits Authorized [id number] Authorized PCP Requested Referral 12/13/2022 12/13/2023 1 1 Specialty Diagnoses / Procedures Referred By Arya t Referred To Contact MOLECULAR & FUNCTIONAL IMAGING Diagnoses Hypercalcemia Procedures NM PARATHYROID W SPECT/CT PARATHYROID IMAGING W/TOMOGRAPHIC SPECT & CT Shanthi Rangel MD [address] [place] [address] [facility] [address] [place] [address] Referral ID Status Reason Start Date Expiration Date Visits Requested Visits Authorized [id number] Pending Review Auto-Generat ed Referral 12/13/2022 01/12/2024 1 1 Specialty Diagnoses / Procedures Referred By Contac t Referred To Contact Diagnoses Hyperparathyroidism (HCC) Procedures IN PERSON [facility] Blanche Munoz MD [address] [place] [address] Referral ID Status Reason Start Date Expiration Date Visits Requested Visits Authorized [id number] Ref Not Required PCP Requested Referral 12/28/2022 03/27/2023 1 1 Specialty Diagnoses / Procedures Referred By Contac t Referred To Contact [facility] Diagnoses Hyperparathyroidism (HCC) Procedures ECG COMPLETE ECG ROUTINE ECG W/LEAST 12 LDS W/I&R Blanche Munoz MD [address] [place] [address] [facility] [address] [address] Referral ID Status Reason Start Date Expiration Date Visits Requested Visits Authorized [id number] Pending Review Auto-Generat ed Referral 12/28/2022 12/27/2023 1 1 Specialty Diagnoses / Procedures Referred By Contac t Referred To Contact Cardiology Diagnoses Cardiomyopathy, nonischemic (HCC) Chronic systolic heart failure (HCC) Controlled type 2 diabetes mellitus with microalbuminuria, without long-term current use of insulin (HCC) (HCC) Procedures CONSULT TO CARDIOLOGY OFFICE/OUTPATIENT [facility] 60 MINUTES Antony Espinoza MD [address] [place] [address] Referral ID Status Reason Start Date Expiration Date Visits Requested Visits Authorized [id number] Authorized PCP Requested Referral 4 11/13/2025 1 1 Specialty Diagnoses / Procedures Referred By Contac t Referred To Contact Nephrology Diagnoses Stage 3 chronic kidney disease, unspecified whether stage 3a or 3b CKD (HCC) Procedures CONSULT TO NEPHROLOGY OFFICE/OUTPATIENT [facility] 60 MINUTES Antony Espinoza MD [address] [place] [id number] Referral ID Status Reason Start Date Expiration Date Visits Requested Visits Authorized [id number] Authorized PCP Requested Referral 4 11/16/2025 1 1 Chief Complaint and Reason for Visit Chief Complaint ADULT FTT Reason for Visit Generalized weakness Inability to walk Hypertension Chief Complaint ADULT FTT ADULT FTT ADULT FTT Reason for Visit Effusion, right knee Generalized weakness Inability to walk Hypertension Medications Administered Section Inactive Administered Medications - up to 3 most recent administrations Medication Order MAR Action Action Date Dose Rate Site lidocaine urojet 2 % 6 mL topical gel (GLYDO) 6 mL, URETHRAL, ONCE, 1 dose, On Sat04/16/23 at 1600, Prior to UDS Procedure Given by LIP 2023 4:04 PM EDT 6 mL O ther sulfamethoxazole-trimethoprim 800-160 mg 1 tablet (BACTRIM DS) 1 tablet, ORAL, ONCE, 1 dose, On Sat04/16/23 at 1600, One tab prior to procedure, Please document the antimicrobial indication: Prophylaxis Given 2023 4:05 PM EDT 1 tablet Oral Additional Source Comments (unrecognized sect ion and content) No Status Records FoundNo Status Records FoundNo Status Records FoundNo Status Records FoundNo Status Records Found INFORMATION SOURCE (unrecogn ized section and content) DATE CREATED AUTHOR 08/29/2020 [facility] DATE CREATED AUTHOR AUTHOR'S ORGANIZ ATION 03/04/2023 [facility] DATE CREATED AUTHOR AUTHOR'S ORGANIZ ATION 05/12/2024 [facility] DATE CREATED AUTHOR AUTHOR'S ORGANIZ ATION 10/04/2024 [facility] DATE CREATED AUTHOR AUTHOR'S ORGANIZ ATION 04/15/2025 [facility] Source Comments (unrecognize d section and content) In the event this informatio n is protected by the Federal Confidentiality of Alcohol and Drug Abuse Patient Records regulations: The Federal rules restrict any use of the information to criminally investigate or prosecute any alcohol or drug abuse patient.[facility] the event this information is protected by the Federal Confidentiality of Alcohol and Drug Abuse Patient Records regulations: The Federal rules restrict any use of the information to criminally investigate or prosecute any alcohol or drug abuse patient.[facility] the event this information is protected by the Federal Confidentiality of Alcohol and Drug Abuse Patient Records regulations: The Federal rules restrict any use of the information to criminally investigate or prosecute any alcohol or drug abuse patient.[facility] the event this information is protected by the Federal Confidentiality of Alcohol and Drug Abuse Patient Records regulations: The Federal rules restrict any use of the information to criminally investigate or prosecute any alcohol or drug abuse patient.[facility] HospitalIn the event this information is protected by the Federal Confidentiality of Alcohol and Drug Abuse Patient Records regulations: The Federal rules restrict any use of the information to criminally investigate or prosecute any alcohol or drug abuse patient.[facility] HospitalIn the event this information is protected by the Federal Confidentiality of Alcohol and Drug Abuse Patient Records regulations: The Federal rules restrict any use of the information to criminally investigate or prosecute any alcohol or drug abuse patient.[facility] HospitalIn the event this information is protected by the Federal Confidentiality of Alcohol and Drug Abuse Patient Records regulations: The Federal rules restrict any use of the information to criminally investigate or prosecute any alcohol or drug abuse patient.[facility] HospitalIn the event this information is protected by the Federal Confidentiality of Alcohol and Drug Abuse Patient Records regulations: The Federal rules restrict any use of the information to criminally investigate or prosecute any alcohol or drug abuse patient.[facility] HospitalIn the event this information is protected by the Federal Confidentiality of Alcohol and Drug Abuse Patient Records regulations: The Federal rules restrict any use of the information to criminally investigate or prosecute any alcohol or drug abuse patient.[facility] HospitalIn the event this information is protected by the Federal Confidentiality of Alcohol and Drug Abuse Patient Records regulations: The Federal rules restrict any use of the information to criminally investigate or prosecute any alcohol or drug abuse patient.[facility] HospitalIn the event this information is protected by the Federal Confidentiality of Alcohol and Drug Abuse Patient Records regulations: The Federal rules restrict any use of the information to criminally investigate or prosecute any alcohol or drug abuse patient.[facility] HospitalIn the event this information is protected by the Federal Confidentiality of Alcohol and Drug Abuse Patient Records regulations: The Federal rules restrict any use of the information to criminally investigate or prosecute any alcohol or drug abuse patient.[facility] HospitalIn the event this information is protected by the Federal Confidentiality of Alcohol and Drug Abuse Patient Records regulations: The Federal rules restrict any use of the information to criminally investigate or prosecute any alcohol or drug abuse patient.[facility] HospitalIn the event this information is protected by the Federal Confidentiality of Alcohol and Drug Abuse Patient Records regulations: The Federal rules restrict any use of the information to criminally investigate or prosecute any alcohol or drug abuse patient.[facility] HospitalIn the event this information is protected by the Federal Confidentiality of Alcohol and Drug Abuse Patient Records regulations: The Federal rules restrict any use of the information to criminally investigate or prosecute any alcohol or drug abuse patient.[facility] HospitalIn the event this information is protected by the Federal Confidentiality of Alcohol and Drug Abuse Patient Records regulations: The Federal rules restrict any use of the information to criminally investigate or prosecute any alcohol or drug abuse patient.[facility] HospitalIn the event this information is protected by the Federal Confidentiality of Alcohol and Drug Abuse Patient Records regulations: The Federal rules restrict any use of the information to criminally investigate or prosecute any alcohol or drug abuse patient.[facility] HospitalIn the event this information is protected by the Federal Confidentiality of Alcohol and Drug Abuse Patient Records regulations: The Federal rules restrict any use of the information to criminally investigate or prosecute any alcohol or drug abuse patient.[facility] HospitalIn the event this information is protected by the Federal Confidentiality of Alcohol and Drug Abuse Patient Records regulations: The Federal rules restrict any use of the information to criminally investigate or prosecute any alcohol or drug abuse patient.[facility] HospitalIn the event this information is protected by the Federal Confidentiality of Alcohol and Drug Abuse Patient Records regulations: The Federal rules restrict any use of the information to criminally investigate or prosecute any alcohol or drug abuse patient.[facility] HospitalIn the event this information is protected by the Federal Confidentiality of Alcohol and Drug Abuse Patient Records regulations: The Federal rules restrict any use of the information to criminally investigate or prosecute any alcohol or drug abuse patient.[facility] HospitalIn the event this information is protected by the Federal Confidentiality of Alcohol and Drug Abuse Patient Records regulations: The Federal rules restrict any use of the information to criminally investigate or prosecute any alcohol or drug abuse patient.[facility] HospitalIn the event this information is protected by the Federal Confidentiality of Alcohol and Drug Abuse Patient Records regulations: The Federal rules restrict any use of the information to criminally investigate or prosecute any alcohol or drug abuse patient.[facility] HospitalIn the event this information is protected by the Federal Confidentiality of Alcohol and Drug Abuse Patient Records regulations: The Federal rules restrict any use of the information to criminally investigate or prosecute any alcohol or drug abuse patient.[facility] HospitalIn the event this information is protected by the Federal Confidentiality of Alcohol and Drug Abuse Patient Records regulations: The Federal rules restrict any use of the information to criminally investigate or prosecute any alcohol or drug abuse patient.[facility] HospitalIn the event this information is protected by the Federal Confidentiality of Alcohol and Drug Abuse Patient Records regulations: The Federal rules restrict any use of the information to criminally investigate or prosecute any alcohol or drug abuse patient.[facility] HospitalIn the event this information is protected by the Federal Confidentiality of Alcohol and Drug Abuse Patient Records regulations: The Federal rules restrict any use of the information to criminally investigate or prosecute any alcohol or drug abuse patient.[facility] HospitalIn the event this information is protected by the Federal Confidentiality of Alcohol and Drug Abuse Patient Records regulations: The Federal rules restrict any use of the information to criminally investigate or prosecute any alcohol or drug abuse patient.[facility] HospitalIn the event this information is protected by the Federal Confidentiality of Alcohol and Drug Abuse Patient Records regulations: The Federal rules restrict any use of the information to criminally investigate or prosecute any alcohol or drug abuse patient.[facility] HospitalIn the event this information is protected by the Federal Confidentiality of Alcohol and Drug Abuse Patient Records regulations: The Federal rules restrict any use of the information to criminally investigate or prosecute any alcohol or drug abuse patient.[facility] HospitalIn the event this information is protected by the Federal Confidentiality of Alcohol and Drug Abuse Patient Records regulations: The Federal rules restrict any use of the information to criminally investigate or prosecute any alcohol or drug abuse patient.[facility] HospitalIn the event this information is protected by the Federal Confidentiality of Alcohol and Drug Abuse Patient Records regulations: The Federal rules restrict any use of the information to criminally investigate or prosecute any alcohol or drug abuse patient.[facility] HospitalIn the event this information is protected by the Federal Confidentiality of Alcohol and Drug Abuse Patient Records regulations: The Federal rules restrict any use of the information to criminally investigate or prosecute any alcohol or drug abuse patient.[facility] HospitalIn the event this information is protected by the Federal Confidentiality of Alcohol and Drug Abuse Patient Records regulations: The Federal rules restrict any use of the information to criminally investigate or prosecute any alcohol or drug abuse patient.[facility] HospitalIn the event this information is protected by the Federal Confidentiality of Alcohol and Drug Abuse Patient Records regulations: The Federal rules restrict any use of the information to criminally investigate or prosecute any alcohol or drug abuse patient.[facility] HospitalIn the event this information is protected by the Federal Confidentiality of Alcohol and Drug Abuse Patient Records regulations: The Federal rules restrict any use of the information to criminally investigate or prosecute any alcohol or drug abuse patient.[facility] HospitalIn the event this information is protected by the Federal Confidentiality of Alcohol and Drug Abuse Patient Records regulations: The Federal rules restrict any use of the information to criminally investigate or prosecute any alcohol or drug abuse patient.[facility] HospitalIn the event this information is protected by the Federal Confidentiality of Alcohol and Drug Abuse Patient Records regulations: The Federal rules restrict any use of the information to criminally investigate or prosecute any alcohol or drug abuse patient.[facility] HospitalIn the event this information is protected by the Federal Confidentiality of Alcohol and Drug Abuse Patient Records regulations: The Federal rules restrict any use of the information to criminally investigate or prosecute any alcohol or drug abuse patient.[facility] HospitalIn the event this information is protected by the Federal Confidentiality of Alcohol and Drug Abuse Patient Records regulations: The Federal rules restrict any use of the information to criminally investigate or prosecute any alcohol or drug abuse patient.[facility] HospitalIn the event this information is protected by the Federal Confidentiality of Alcohol and Drug Abuse Patient Records regulations: The Federal rules restrict any use of the information to criminally investigate or prosecute any alcohol or drug abuse patient.[facility] HospitalIn the event this information is protected by the Federal Confidentiality of Alcohol and Drug Abuse Patient Records regulations: The Federal rules restrict any use of the information to criminally investigate or prosecute any alcohol or drug abuse patient.[facility] HospitalIn the event this information is protected by the Federal Confidentiality of Alcohol and Drug Abuse Patient Records regulations: The Federal rules restrict any use of the information to criminally investigate or prosecute any alcohol or drug abuse patient.[facility] HospitalIn the event this information is protected by the Federal Confidentiality of Alcohol and Drug Abuse Patient Records regulations: The Federal rules restrict any use of the information to criminally investigate or prosecute any alcohol or drug abuse patient.[facility] HospitalIn the event this information is protected by the Federal Confidentiality of Alcohol and Drug Abuse Patient Records regulations: The Federal rules restrict any use of the information to criminally investigate or prosecute any alcohol or drug abuse patient.[facility] HospitalIn the event this information is protected by the Federal Confidentiality of Alcohol and Drug Abuse Patient Records regulations: The Federal rules restrict any use of the information to criminally investigate or prosecute any alcohol or drug abuse patient.[facility] HospitalIn the event this information is protected by the Federal Confidentiality of Alcohol and Drug Abuse Patient Records regulations: The Federal rules restrict any use of the information to criminally investigate or prosecute any alcohol or drug abuse patient.[facility] HospitalIn the event this information is protected by the Federal Confidentiality of Alcohol and Drug Abuse Patient Records regulations: The Federal rules restrict any use of the information to criminally investigate or prosecute any alcohol or drug abuse patient.[facility] HospitalIn the event this information is protected by the Federal Confidentiality of Alcohol and Drug Abuse Patient Records regulations: The Federal rules restrict any use of the information to criminally investigate or prosecute any alcohol or drug abuse patient.[facility] HospitalIn the event this information is protected by the Federal Confidentiality of Alcohol and Drug Abuse Patient Records regulations: The Federal rules restrict any use of the information to criminally investigate or prosecute any alcohol or drug abuse patient.[facility] HospitalIn the event this information is protected by the Federal Confidentiality of Alcohol and Drug Abuse Patient Records regulations: The Federal rules restrict any use of the information to criminally investigate or prosecute any alcohol or drug abuse patient.[facility] HospitalIn the event this information is protected by the Federal Confidentiality of Alcohol and Drug Abuse Patient Records regulations: The Federal rules restrict any use of the information to criminally investigate or prosecute any alcohol or drug abuse patient.[facility] HospitalIn the event this information is protected by the Federal Confidentiality of Alcohol and Drug Abuse Patient Records regulations: The Federal rules restrict any use of the information to criminally investigate or prosecute any alcohol or drug abuse patient.[facility] HospitalIn the event this information is protected by the Federal Confidentiality of Alcohol and Drug Abuse Patient Records regulations: The Federal rules restrict any use of the information to criminally investigate or prosecute any alcohol or drug abuse patient.[facility] HospitalIn the event this information is protected by the Federal Confidentiality of Alcohol and Drug Abuse Patient Records regulations: The Federal rules restrict any use of the information to criminally investigate or prosecute any alcohol or drug abuse patient.[facility] HospitalIn the event this information is protected by the Federal Confidentiality of Alcohol and Drug Abuse Patient Records regulations: The Federal rules restrict any use of the information to criminally investigate or prosecute any alcohol or drug abuse patient.[facility] HospitalIn the event this information is protected by the Federal Confidentiality of Alcohol and Drug Abuse Patient Records regulations: The Federal rules restrict any use of the information to criminally investigate or prosecute any alcohol or drug abuse patient.[facility] HospitalIn the event this information is protected by the Federal Confidentiality of Alcohol and Drug Abuse Patient Records regulations: The Federal rules restrict any use of the information to criminally investigate or prosecute any alcohol or drug abuse patient.[facility] HospitalIn the event this information is protected by the Federal Confidentiality of Alcohol and Drug Abuse Patient Records regulations: The Federal rules restrict any use of the information to criminally investigate or prosecute any alcohol or drug abuse patient.[facility] HospitalIn the event this information is protected by the Federal Confidentiality of Alcohol and Drug Abuse Patient Records regulations: The Federal rules restrict any use of the information to criminally investigate or prosecute any alcohol or drug abuse patient.[facility] HospitalIn the event this information is protected by the Federal Confidentiality of Alcohol and Drug Abuse Patient Records regulations: The Federal rules restrict any use of the information to criminally investigate or prosecute any alcohol or drug abuse patient.[facility] HospitalIn the event this information is protected by the Federal Confidentiality of Alcohol and Drug Abuse Patient Records regulations: The Federal rules restrict any use of the information to criminally investigate or prosecute any alcohol or drug abuse patient.[facility] HospitalIn the event this information is protected by the Federal Confidentiality of Alcohol and Drug Abuse Patient Records regulations: The Federal rules restrict any use of the information to criminally investigate or prosecute any alcohol or drug abuse patient.[facility] HospitalIn the event this information is protected by the Federal Confidentiality of Alcohol and Drug Abuse Patient Records regulations: The Federal rules restrict any use of the information to criminally investigate or prosecute any alcohol or drug abuse patient.[facility] HospitalIn the event this information is protected by the Federal Confidentiality of Alcohol and Drug Abuse Patient Records regulations: The Federal rules restrict any use of the information to criminally investigate or prosecute any alcohol or drug abuse patient.[facility] HospitalIn the event this information is protected by the Federal Confidentiality of Alcohol and Drug Abuse Patient Records regulations: The Federal rules restrict any use of the information to criminally investigate or prosecute any alcohol or drug abuse patient.[facility] HospitalIn the event this information is protected by the Federal Confidentiality of Alcohol and Drug Abuse Patient Records regulations: The Federal rules restrict any use of the information to criminally investigate or prosecute any alcohol or drug abuse patient.[facility] HospitalIn the event this information is protected by the Federal Confidentiality of Alcohol and Drug Abuse Patient Records regulations: The Federal rules restrict any use of the information to criminally investigate or prosecute any alcohol or drug abuse patient.[facility] HospitalIn the event this information is protected by the Federal Confidentiality of Alcohol and Drug Abuse Patient Records regulations: The Federal rules restrict any use of the information to criminally investigate or prosecute any alcohol or drug abuse patient.[facility] HospitalIn the event this information is protected by the Federal Confidentiality of Alcohol and Drug Abuse Patient Records regulations: The Federal rules restrict any use of the information to criminally investigate or prosecute any alcohol or drug abuse patient.[facility] HospitalIn the event this information is protected by the Federal Confidentiality of Alcohol and Drug Abuse Patient Records regulations: The Federal rules restrict any use of the information to criminally investigate or prosecute any alcohol or drug abuse patient.[facility] HospitalIn the event this information is protected by the Federal Confidentiality of Alcohol and Drug Abuse Patient Records regulations: The Federal rules restrict any use of the information to criminally investigate or prosecute any alcohol or drug abuse patient.[facility] HospitalIn the event this information is protected by the Federal Confidentiality of Alcohol and Drug Abuse Patient Records regulations: The Federal rules restrict any use of the information to criminally investigate or prosecute any alcohol or drug abuse patient.[facility] HospitalIn the event this information is protected by the Federal Confidentiality of Alcohol and Drug Abuse Patient Records regulations: The Federal rules restrict any use of the information to criminally investigate or prosecute any alcohol or drug abuse patient.[facility] HospitalIn the event this information is protected by the Federal Confidentiality of Alcohol and Drug Abuse Patient Records regulations: The Federal rules restrict any use of the information to criminally investigate or prosecute any alcohol or drug abuse patient.[facility] HospitalIn the event this information is protected by the Federal Confidentiality of Alcohol and Drug Abuse Patient Records regulations: The Federal rules restrict any use of the information to criminally investigate or prosecute any alcohol or drug abuse patient.[facility] HospitalIn the event this information is protected by the Federal Confidentiality of Alcohol and Drug Abuse Patient Records regulations: The Federal rules restrict any use of the information to criminally investigate or prosecute any alcohol or drug abuse patient.[facility] HospitalIn the event this information is protected by the Federal Confidentiality of Alcohol and Drug Abuse Patient Records regulations: The Federal rules restrict any use of the information to criminally investigate or prosecute any alcohol or drug abuse patient.[facility] HospitalIn the event this information is protected by the Federal Confidentiality of Alcohol and Drug Abuse Patient Records regulations: The Federal rules restrict any use of the information to criminally investigate or prosecute any alcohol or drug abuse patient.[facility] HospitalIn the event this information is protected by the Federal Confidentiality of Alcohol and Drug Abuse Patient Records regulations: The Federal rules restrict any use of the information to criminally investigate or prosecute any alcohol or drug abuse patient.[facility] HospitalIn the event this information is protected by the Federal Confidentiality of Alcohol and Drug Abuse Patient Records regulations: The Federal rules restrict any use of the information to criminally investigate or prosecute any alcohol or drug abuse patient.[facility] HospitalIn the event this information is protected by the Federal Confidentiality of Alcohol and Drug Abuse Patient Records regulations: The Federal rules restrict any use of the information to criminally investigate or prosecute any alcohol or drug abuse patient.[facility] HospitalIn the event this information is protected by the Federal Confidentiality of Alcohol and Drug Abuse Patient Records regulations: The Federal rules restrict any use of the information to criminally investigate or prosecute any alcohol or drug abuse patient.[facility] HospitalIn the event this information is protected by the Federal Confidentiality of Alcohol and Drug Abuse Patient Records regulations: The Federal rules restrict any use of the information to criminally investigate or prosecute any alcohol or drug abuse patient.[facility] Reason for Visit (unrecogniz ed section and content) Reason Onset Date Comments Refill Request 03/05/2022 Reason Comments Refill Request Reason Onset Date Comments Refill Request 03/22/2022 Reason Onset Date Comments Refill Request 04/13/2022 Reason Comments nail care Reason Comments 6 Month Exam Reason Comments Results Reason Comments Consult Specialty Diagnoses / Procedures Referred By Contac t Referred To Contact Endocrinology Diagnoses Hypercalcemia Procedures CONSULT TO ENDOCRINOLOGY OFFICE/OUTPATIENT [facility] MDM 60-74 MINUTES Antony Espinoza MD [address] [place] [address] Referral ID Status Reason Start Date Expiration Date V isits Requested Visits Authorized [id number] Closed PCP Requested Referral 05/09/2022 05/09/2023 1 1 Reason Onset Date Comments Refill Request 07/26/2022 Reason Comments Established Patient Debridement of Nail Reason Onset Date Comments Refill Request 06/29/2022 Refill Request 08/13/2022 Reason Onset Date Comments Refill Request 08/15/2022 Reason Onset Date Comments Refill Request 09/11/2022 Reason Comments Follow Up Benign Prostatic Hypertrophy Specialty Diagnoses / Procedures Referred By Contac t Referred To Contact Urology Diagnoses Benign prostatic hyperplasia, unspecified whether lower urinary tract symptoms present Procedures CONSULT TO UROLOGY OFFICE/OUTPATIENT [facility] 60-74 MINUTES Antony Espinoza MD [address] [place] [address] Referral ID Status Reason Start Date Expiration Date V isits Requested Visits Authorized [id number] Closed PCP Requested Referral 11/15/2022 11/15/2023 1 1 Reason Comments Established Patient Reason Onset Date Comments Refill Request 12/07/2022 Reason Comments Established Patient Follow Up Pain Diabetic Foot Care Reason Comments Consult Face Sheet Reason Comments Hyperparathyroidism Specialty Diagnoses / Procedures Referred By Contac t Referred To Contact Diagnoses Primary hyperparathyroidism (HCC) Procedures CONSULT TO ENDOCRINE SURGERY OFFICE/OUTPATIENT [facility] 60-74 MINUTES Shanthi Rangel MD [address] [place] [address] Referral ID Status Reason Start Date Expiration Date V isits Requested Visits Authorized [id number] Closed PCP Requested Referral 12/13/2022 12/13/2023 1 1 Reason Comments Radiology NM Specialty Diagnoses / Procedures [facility] To Contact MOLECULAR & FUNCTIONAL IMAGING Diagnoses Hypercalcemia Procedures NM PARATHYROID W SPECT/CT PARATHYROID IMAGING W/TOMOGRAPHIC SPECT & CT Shanthi Rangel MD [address] [place] [address] Molecular & Functional Imaging [address] [place] [address] Referral ID Status Reason Start Date Expiration Date V isits Requested Visits Authorized [id number] Closed Auto-Generate d Referral 12/20/2022 02/03/2023 1 1 Reason Comments MM OR 02/27/23 Parathyroidectomy Reason Onset Date Comments Refill Request 02/08/2023 Reason Onset Date Comments Refill Request 02/21/2023 Reason Comments Home Care MD to follow Reason Comments Home Care Pt confirmation call Reason Comments Appointment Reason Comments Follow Up Reason Comments Patient Update Reason Comments Hospital F/U Reason Comments Home Care Reason Comments Nurse Visit Trial of Void Reason Comments Cystoscopy-1 Trus Procedure Reason Comments Home Care Notification of skil led home health nurse discipline discharge 04/09/23. Reason Comments Extend PT-need verbal Reason Comments Urinary Retention Reason Comments Surgery Scheduled Specialty Diagnoses / Procedures Referred By Contac t Referred To Contact [facility] Diagnoses CYSTO, TURP Procedures COMPLETE PST YOUSUF Gaona, Shaji Arguello MD [address] [place] [address] Pre Surg Testing [facility] [address] [place] [address] Referral ID Status Reason Start Date Expiration Date Visits Re quested Visits Authorized [id number] Closed 05/06/2023 11/17/2023 1 1 Reason Comments surgery question Reason Comments Medical Clearance Reason Comments Medical Clearance Form-Urology Procedure Reason Comments Blood In Urine Reason Comments Catheter Removal Reason Comments Post Void Residual Reason Onset Date Comments Refill Request 08/01/2023 Reason Comments Posterior Capsule Opacification Evaluati on Reason Comments Results Reason Comments nail care Established Patient Follow Up Pain Reason Onset Date Comments Refill Request 03/24/2024 Reason Onset Date Comments requesting medication not on list 03/24/2024 Reason Comments Established Patient Follow Up Diabetic Foot Care Reason Onset Date Comments Refill Request 06/30/2024 Reason Comments requesting medication that is Reason Comments Benign Prostatic Hypertrophy Reason Onset Date Comments Refill Request 10/14/2024 Reason Comments Physical Reason Onset Date Comments Refill Request 01/22/2025 Reason Onset Date Comments Refill Request 01/29/2025 Reason Onset Date Comments Refill Request 03/08/2025 Care Teams (unrecognized sec tion and content) Leather Goods Assembler Relationship Specialty Start Date End Date Antony Espinoza MD [address] [place] [employer], [place] [address] PCP - General Family Practice 10/04/21 Leather Goods Assembler Relationship Specialty Start Date End Date Antony Espinoza MD [address] [place] [employer], [place] [id number] PCP - General Family Practice 10/04/21 Leather Goods Assembler Relationship Specialty Start Date End Date Antony Espinoza MD [address] [place] [address] PCP - General Family Practice 10/04/21 Leather Goods Assembler Relationship Specialty Start Date End Date Antony Espinoza MD [address] [facility] [place] [address] PCP - General Family Practice 10/04/21 Leather Goods Assembler Relationship Specialty Start Date End Date Antony Espinoza MD [address] [facility] [place] [address] PCP - General Family Practice 10/04/21 Leather Goods Assembler Relationship Specialty Start Date End Date Antony Espinoza MD [address] [facility] [place] [address] PCP - General Family Practice 10/04/21 Leather Goods Assembler Relationship Specialty Start Date End Date Antony Espinoza MD [address] [facility] [place] [address] PCP - General Family Practice 10/04/21 Leather Goods Assembler Relationship Specialty Start Date End Date Antony Espinoza MD [address] [facility] [place] [address] PCP - General Family Practice 10/04/21 Leather Goods Assembler Relationship Specialty Start Date End Date Antony Espinoza MD [address] [facility] [place] [address] PCP - General Family Medicine 10/04/21 Leather Goods Assembler Relationship Specialty Start Date End Date Antony Espinoza MD [address] [facility] [place] [address] PCP - General Family Medicine 10/04/21 Leather Goods Assembler Relationship Specialty Start Date End Date Antony Espinoza MD [address] [facility] [place] [address] PCP - General Family Medicine 10/04/21 Leather Goods Assembler Relationship Specialty Start Date End Date Antony Espinoza MD [address] [facility] [place] [address] PCP - General Family Medicine 10/04/21 Leather Goods Assembler Relationship Specialty Start Date End Date Antony Espinoza MD [address] [facility] [place] [address] PCP - General Family Medicine 10/04/21 Leather Goods Assembler Relationship Specialty Start Date End Date Antony Espinoza MD [address] [facility] [place] [address] PCP - General Family Medicine 10/04/21 Leather Goods Assembler Relationship Specialty Start Date End Date Antony Espinoza MD [address] [facility] [place] [address] PCP - General Family Medicine 10/04/21 Leather Goods Assembler Relationship Specialty Start Date End Date Antony Espinoza MD [address] [facility] [place] [address] PCP - General Family Medicine 10/04/21 Leather Goods Assembler Relationship Specialty Start Date End Date Antony Espinoza MD [address] [facility] [place] [address] PCP - General Family Medicine 10/04/21 Leather Goods Assembler Relationship Specialty Start Date End Date Antony Espinoza MD [address] [facility] [place] [address] PCP - General Family Medicine 10/04/21 Leather Goods Assembler Relationship Specialty Start Date End Date Antony Espinoza MD [address] [facility] [place] [address] PCP - General Family Medicine 10/04/21 Leather Goods Assembler Relationship Specialty Start Date End Date Antony Espinoza MD [address] [facility] [place] [address] PCP - General Family Medicine 10/04/21 Leather Goods Assembler Relationship Specialty Start Date End Date Antony Espinoza MD [address] [facility] [place], [place] [address] PCP - General Family Medicine 10/04/21 Leather Goods Assembler Relationship Specialty Start Date End Date Antony Espinoza MD [address] [place] [employer], [place] [id number] PCP - General Family Medicine 10/04/21 Team Status: Active Member Role Status Dates Dr. Wilfred Vázquez III, MD Family Provider Active Dr. Antony Espinoza MD Primary Care Provider Active Team Status: Active Member Role Status Dates Dr. Antony Espinoza MD Primary Care Provider Active Dr. Christiano Eastman , DO Emergency Provider Active Dr. Paty Morgan MD Admit Provider, Attending Prov ider Active Team Status: Active Member Role Status Dates Dr. Antony Espinoza MD Primary Care Provider Active Dr. Christiano Eastman , Emergency Provider Active Dr. Paty Morgan MD Admit Provider, Other Provider Active Dr. James Griffiths , Attending Provider, Other Provid er Active Team Status: Inactive Member Role Status Dates Dr. Antony Espinoza MD Primary Care Provider Active Dr. Christiano Eastman DO Emergency Provider Active Dr. Paty Morgan MD Admit Provider, Other Provider Active Dr. James Griffiths , DO Attending Provider Active Leather Goods Assembler Relationship Specialty Start Date End Date Antony Espinoza MD [address] [place] [employer], [place] [address] PCP - General Family Medicine 10/04/21 Meka Wilkerson, TOOL HARDENER.SHIRT IRONER [address] [place] [address] Referring Internal Medicine 03/16/23 Leather Goods Assembler Relationship Specialty Start Date End Date Antony Espinoza MD [address] [place] [employer], [place] [id number] PCP - General Family Medicine 10/04/21 Meka Wilkerson, TOOL HARDENER.SHIRT IRONER [address] [place], [place] [id number] Referring Internal Medicine 03/16/23 Antony Espinoza MD [address] [place] [address] Home Care Provider Family Medicine 03/18/23 Harinder Isaac, TRACY [address] [place] [address] Applied Psychology Professor Post Acute Care 03/18/23 Leather Goods Assembler Relationship Specialty Start Date End Date Antony Espinoza MD [address] [place] [address] PCP - General Family Medicine 10/04/21 Meka Wilkerson, TOOL HARDENER.SHIRT IRONER [address] [place] [address] Referring Internal Medicine 03/16/23 Antony Espinoza MD [address] [place] [address] Home Care Provider Family Medicine 03/18/23 Harinder Isaac RN [address] [place] [address] Applied Psychology Professor Post Acute Care 03/18/23 Leather Goods Assembler Relationship Specialty Start Date End Date Antony Espinoza MD [address] [place] [address] PCP - General Family Medicine 10/04/21 Meka Wilkerson, TOOL HARDENER.SHIRT IRONER [address] [place] [address] Referring Internal Medicine 03/16/23 Antony Espinoza MD [address] [place] [address] Home Care Provider Family Medicine 03/18/23 Harinder Isaac RN [address] [place] [address] Applied Psychology Professor Post Acute Care 03/18/23 Leather Goods Assembler Relationship Specialty Start Date End Date Antony Espinoza MD [address] [place] [address] PCP - General Family Medicine 10/04/21 Meka Wilkerson APRN.SHIRT IRONER [address] [place], [place] [id number] Referring Internal Medicine 03/16/23 Antony Espinoza MD [address] [place] [address] Home Care Provider Family Medicine 03/18/23 Harinder Isaac, RN [address] [place] [address] Applied Psychology Professor Post Acute Care 03/18/23 Leather Goods Assembler Relationship Specialty Start Date End Date Antony Espinoza MD [address] [place] [address] PCP - General Family Medicine 10/04/21 Meka Wilkerson, TOOL HARDENER.SHIRT IRONER [address] [place] [address] Referring Internal Medicine 03/16/23 Antony Espinoza MD [address] [place] [address] Home Care Provider Family Medicine 03/18/23 Harinder Isaac, RN [address] [place] [address] Applied Psychology Professor Post Acute Care 03/18/23 Leather Goods Assembler Relationship Specialty Start Date End Date Antony Espinoza MD [address] [place] [address] PCP - General Family Medicine 10/04/21 Meka Wilkerson, TOOL HARDENER.SHIRT IRONER [address] [place] [address] Referring Internal Medicine 03/16/23 Antony Espinoza MD [address] [place] [address] Home Care Provider Family Medicine 03/18/23 Harinder Isaac RN [address] [place], [place] [id number] Applied Psychology Professor Post Acute Care 03/18/23 Leather Goods Assembler Relationship Specialty Start Date End Date Antony Espinoza MD [address] [place] [address] PCP - General Family Medicine 10/04/21 Meka Wilkerson, TOOL HARDENER.SHIRT IRONER [address] [place] [address] Referring Internal Medicine 03/16/23 Antony Espinoza MD [address] [place] [address] Home Care Provider Family Medicine 03/18/23 Harinder Isaac RN [address] [place] [address] Applied Psychology Professor Post Acute Care 03/18/23 Leather Goods Assembler Relationship Specialty Start Date End Date Antony Espinoza MD [address] [place] [address] PCP - General Family Medicine 10/04/21 Meka Wilkerson, TOOL HARDENER.SHIRT IRONER [address] [place] [address] Referring Internal Medicine 03/16/23 Antony Espinoza MD [address] [place] [address] Home Care Provider Family Medicine 03/18/23 Harinder Isaac RN [address] [place] [address] Applied Psychology Professor Post Acute Care 03/18/23 Leather Goods Assembler Relationship Specialty Start Date End Date Antony Espinoza MD [address] [place] [address] PCP - General Family Medicine 10/04/21 Meka Wilkerson, TOOL HARDENER.SHIRT IRONER [address] [place] [address] Referring Internal Medicine 03/16/23 Antony Espinoza MD [address] [place] [address] Home Care Provider Family Medicine 03/18/23 Harinder Isaac, TRACY [address] [place] [address] Applied Psychology Professor Post Acute Care 03/18/23 Leather Goods Assembler Relationship Specialty Start Date End Date Antony Espinoza MD [address] [place] [address] PCP - General Family Medicine 10/04/21 Meka Wilkerson, TOOL HARDENER.SHIRT IRONER [address] [place] [address] Referring Internal Medicine 03/16/23 Antony Espinoza MD [address] [place] [address] Home Care Provider Family Medicine 03/18/23 Harinder Isaac RN [address] [place] [address] Applied Psychology Professor Post Acute Care 03/18/23 Leather Goods Assembler Relationship Specialty Start Date End Date Antony Espinoza MD [address] [place] [address] PCP - General Family Medicine 10/04/21 Meka Wilkerson, TOOL HARDENER.SHIRT IRONER [address] [place] [address] Referring Internal Medicine 03/16/23 Antony Espinoza MD [address] [place] [address] Home Care Provider Family Medicine 03/18/23 Harinder Isaac RN [address] [place] [address] Applied Psychology Professor Post Acute Care 03/18/23 Leather Goods Assembler Relationship Specialty Start Date End Date Antony Espinoza MD [address] [place] [employer], [place] [address]91 PCP - General Family Medicine 10/04/21 Meka Wilkerson, TOOL HARDENER.SHIRT IRONER [address] [place], [place] [id number] Referring Internal Medicine 03/16/23 Antony Espinoza MD [address] [place] [address] Home Care Provider Family Medicine 03/18/23 Leather Goods Assembler Relationship Specialty Start Date End Date Antony Espinoza MD [address] [place] [address] PCP - General Family Medicine 10/04/21 Meka Wilkerson TOOL HARDENER.SHIRT IRONER [address] [place] [address] Referring Internal Medicine 03/16/23 Antony Espinoza MD [address] [place] [address] Home Care Provider Family Medicine 03/18/23 Harinder Isaac, TRACY [address] [place], [place] [id number] Applied Psychology Professor Post Acute Care 03/18/23 Leather Goods Assembler Relationship Specialty Start Date End Date Antony Espinoza MD [address] [place] [address] PCP - General Family Medicine 10/04/21 Meka Wilkerson APRN.SHIRT IRONER [address] [place] [address] Referring Internal Medicine 03/16/23 Antony Espinoza MD [address] [place] [address] Home Care Provider Family Medicine 03/18/23 Harinder Isaac, TRACY [address] [place], [place] [id number] Applied Psychology Professor Post Acute Care 03/18/23 Leather Goods Assembler Relationship Specialty Start Date End Date Antony Espinoza MD [address] [place] [address] PCP - General Family Medicine 10/04/21 Meka Wilkerson, TOOL HARDENER.SHIRT IRONER [address] [place], [place] [id number] Referring Internal Medicine 03/16/23 Antony Espinoza MD [address] [place] [address] Home Care Provider Family Medicine 03/18/23 Leather Goods Assembler Relationship Specialty Start Date End Date Antony Espinoza MD [address] [place] [address] PCP - General Family Medicine 10/04/21 Meka Wilkerson, TOOL HARDENER.SHIRT IRONER [address] [place] [address] Referring Internal Medicine 03/16/23 Antony Espinoza MD [address] [place] [address] Home Care Provider Family Medicine 03/18/23 Leather Goods Assembler Relationship Specialty Start Date End Date Antony Espnioza MD [address] [place] [address] PCP - General Family Medicine 10/04/21 Meka Wilkerson, TOOL HARDENER.SHIRT IRONER [address] [place] [address] Referring Internal Medicine 03/16/23 Antony Espinoza MD [address] [place] [address] Home Care Provider Family Medicine 03/18/23 Leather Goods Assembler Relationship Specialty Start Date End Date Antony Espinoza MD [address] [place] [address] PCP - General Family Medicine 10/04/21 Meka Wilkerson, TOOL HARDENER.SHIRT IRONER [address] [place] [address] Referring Internal Medicine 03/16/23 Antony Espinoza MD [address] [place] [address] Home Care Provider Family Medicine 03/18/23 Leather Goods Assembler Relationship Specialty Start Date End Date Antony Espinoza MD [address] [place] [address] PCP - General Family Medicine 10/04/21 Meka Wilkerson, TOOL HARDENER.SHIRT IRONER [address] [place] [address] Referring Internal Medicine 03/16/23 Antony Espinoza MD [address] [place] [address] Home Care Provider Family Medicine 03/18/23 Leather Goods Assembler Relationship Specialty Start Date End Date Antony Espinoza MD [address] [place] [address] PCP - General Family Medicine 10/04/21 Meka Wilkerson, TOOL HARDENER.SHIRT IRONER [address] [place], [place] [id number] Referring Internal Medicine 03/16/23 Antony Espinoza MD [address] [place] [address] Home Care Provider Family Medicine 03/18/23 Leather Goods Assembler Relationship Specialty Start Date End Date Antony Espinoza MD [address] [place] [address] PCP - General Family Medicine 10/04/21 Meka Wilkerson, TOOL HARDENER.SHIRT IRONER [address] [place] [address] Referring Internal Medicine 03/16/23 Antony Espinoza MD [address] [place] [address] Home Care Provider Family Medicine 03/18/23 Leather Goods Assembler Relationship Specialty Start Date End Date Antony Espinoza MD [address] [place] [address] PCP - General Family Medicine 10/04/21 Meka Wilkerson, TOOL HARDENER.SHIRT IRONER [address] [place] [address] Referring Internal Medicine 03/16/23 Antony Espinoza MD [address] [place] [address] Home Care Provider Family Medicine 03/18/23 Leather Goods Assembler Relationship Specialty Start Date End Date Antony Espinoza MD [address] [place] [address] PCP - General Family Medicine 10/04/21 Meka Wilkerson, TOOL HARDENER.SHIRT IRONER [address] [place] [address] Referring Internal Medicine 03/16/23 Antony Espinoza MD [address] [place] [address] Home Care Provider Family Medicine 03/18/23 Leather Goods Assembler Relationship Specialty Start Date End Date Antony Espinoza MD [address] [place] [address] PCP - General Family Medicine 10/04/21 Meka Wilkerson, TOOL HARDENER.SHIRT IRONER [address] [place], [place] [id number] Referring Internal Medicine 03/16/23 Antony Espinoza MD [address] [place] [employer], [place] 612851 Home Care Provider Family Medicine 03/18/23 Leather Goods Assembler Relationship Specialty Start Date End Date Antony Espinoza MD [address] [place] [employer], [place] 805031 PCP - General Family Medicine 10/04/21 Meka Wilkerson, TOOL HARDENER.SHIRT IRONER [address] [place], [place] [id number] Referring Internal Medicine 03/16/23 Antony Espinoza MD [address] [place] [employer], [place] 430826[address] Home Care Provider Family Medicine 03/18/23 Leather Goods Assembler Relationship Specialty Start Date End Date Antony Espinoza MD [address] [place] [employer], [place] 434921 PCP - General Family Medicine 10/04/21 Meka Wilkerson, TOOL HARDENER.SHIRT IRONER [address] [place], [place] [id number] Referring Internal Medicine 03/16/23 Antony Espinoza MD [address] [place] [employer], [place] 110[address] Home Care Provider Family Medicine 03/18/23 Leather Goods Assembler Relationship Specialty Start Date End Date Antony Espinoza MD [address] [place] [employer], [place] 601151 PCP - General Family Medicine 10/04/21 Meka Wilkerson, ESTHER.SHIRT IRONER [address] [place] [address] [id number] Referring Internal Medicine 03/16/23 Antony Espinoza MD [address] [place] [employer], [place] 898501 Home Care Provider Family Medicine 03/18/23 Leather Goods Assembler Relationship Specialty Start Date End Date Antony Espinoza MD [address] [place] [employer], [place] [id number] PCP - General Family Medicine 10/04/21 Meka Wilkerson, TOOL HARDENER.SHIRT IRONER [address] [place] [address] [id number] Referring Internal Medicine 03/16/23 Antony Espinoza MD [address] [place] [employer], [place] 574621 Home Care Provider Family Medicine 03/18/23 Leather Goods Assembler Relationship Specialty Start Date End Date Antony Espinoza MD [address] [place] [employer], [place] 847211 PCP - General Family Medicine 10/04/21 Meka Wilkerson, ESTHER.SHIRT IRONER [address] [place] [address] [id number] Referring Internal Medicine 03/16/23 Antony Espinoza MD [address] [place] [address] Home Care Provider Family Medicine 03/18/23 Leather Goods Assembler Relationship Specialty Start Date End Date Antony Espinoza MD [address] [place] [address] PCP - General Family Medicine 10/04/21 Meka Samson APRN.SHIRT IRONER [address] [place] [address] Referring Internal Medicine 03/16/23 Antony Espinoza MD [address] [place] [address] Home Care Provider Family Medicine 03/18/23 Leather Goods Assembler Relationship Specialty Start Date End Date Antony Espinoza MD [address] [place] [address] PCP - General Family Medicine 10/04/21 Meka Samson APRN.SHIRT IRONER [address] [place] [address] Referring Internal Medicine 03/16/23 Antony Espinoza MD [address] [place] [address] Home Care Provider Family Medicine 03/18/23 Leather Goods Assembler Relationship Specialty Start Date End Date Antony Espinoza MD [address] [place] [employer], [place] 578191 PCP - General Family Medicine 10/04/21 Meka Samson APRN.SHIRT IRONER [address] [place], [place] [phone] Referring Internal Medicine 03/16/23 Antony Espinoaz MD [address] [place] [employer], [place] 577271 Home Care Provider Family Medicine 03/18/23 Leather Goods Assembler Relationship Specialty Start Date End Date Alex Sexton TOOL HARDENER.KIMI SAHU [address] [place] [employer], [place] 191131 PCP - General Family Medicine 06/01/21 10/03/21 Leather Goods Assembler Relationship Specialty Start Date End Date Antony Espinoza MD [address] [place] [employer], [place] 135361 PCP - General Family Medicine 10/04/21 Meka Samson, TOOL HARDENER.SHIRT IRONER [address] [place], [place] [id number] Referring Internal Medicine 03/16/23 Antony Espinoza MD [address] [place] [employer], [place] 238671 Home Care Provider Family Medicine 03/18/23 Leather Goods Assembler Relationship Specialty Start Date End Date Antony Espinoza MD [address] [place] [employer], [place] 428491 PCP - General Family Medicine 10/04/21 Meka Samson, TOOL HARDENER.SHIRT IRONER [address] [place], [place] [id number] Referring Internal Medicine 03/16/23 Antony Espinoza MD [address] [place] [address] Home Care Provider Family Medicine 03/18/23 Leather Goods Assembler Relationship Specialty Start Date End Date Antony Espinoza MD [address] [facility] [place], [place] [address] PCP - General Family Medicine 10/04/21 Meka Samson, TOOL HARDENER.SHIRT IRONER [address] [place], [place] [id number] Referring Internal Medicine 03/16/23 Antony Espinoza MD [address] [place] [address] Home Care Provider Family Medicine 03/18/23 Leather Goods Assembler Relationship Specialty Start Date End Date Antony Espinoza MD [address] [place] [address] PCP - General Family Medicine 10/04/21 Meka Samson TOOL HARDENER.SHIRT IRONER [address] [place] [address] Referring Internal Medicine 03/16/23 Antony Espinoza MD [address] [place] [address] Home Care Provider Family Medicine 03/18/23 Bisi Buenrostro APRN.SHIRT IRONER [address] [place] [address] Buzzsaw Operator Family Medicine 10/26/24 Selena Velásquez TOOL HARDENER.SHIRT IRONER [address] [facility] [place] [address] Buzzsaw Operator Family Medicine 10/26/24 Leather Goods Assembler Relationship Specialty Start Date End Date Antony Espinoza MD [address] [place] [address] PCP - General Family Medicine 10/04/21 Meka Samson APRN.SHIRT IRONER [address] [place], [place] [id number] Referring Internal Medicine 03/16/23 Antony Espinoza MD [address] [place] [employer], [place] 469401 Home Care Provider Family Medicine 03/18/23 Bisi Buenrostro APRN.SHIRT IRONER [address] [place] [address] [facility] 10/26/24 Selena Velásquez APRN.SHIRT IRONER [address] [place] [address] Buzzsaw Operator Family Medicine 10/26/24 Leather Goods Assembler Relationship Specialty Start Date End Date Antony Espinoza MD [address] [place] [employer], [place] 903931 PCP - General Family Medicine 10/04/21 Meka Samson APRN.SHIRT IRONER [address] [place] [address] Referring Internal Medicine 03/16/23 Antony Espinoza MD [address] [place] [employer], [place] 886771 Home Care Provider Family Medicine 03/18/23 Bisi Buenrostro APRN.SHIRT IRONER [address] [place] [address] Buzzsaw Operator Family Medicine 10/26/24 Selena Velásquez APRN.SHIRT IRONER [address] [place] [address] Buzzsaw Operator Family Medicine 10/26/24 Leather Goods Assembler Relationship Specialty Start Date End Date Antony Espinoza MD [address] [place] [address] PCP - General Family Medicine 10/04/21 Meka Samson, TOOL HARDENER.SHIRT IRONER [address] [place], [place] [phone] Referring Internal Medicine 03/16/23 Antony Espinoza MD [address] [place] [address] Home Care Provider Family Medicine 03/18/23 Bisi Buenrostro TOOL HARDENER.SHIRT IRONER [address] [place] [address] Buzzsaw Operator Family Medicine 10/26/24 Selena Velásquez APRN.SHIRT IRONER [address] [place] [address] Buzzsaw Operator Family Medicine 10/26/24 Leather Goods Assembler Relationship Specialty Start Date End Date Antony Espinoza MD [address] [place] [address] PCP - General Family Medicine 10/04/21 Meka Samson, TOOL HARDENER.SHIRT IRONER [address] [place], [place] [phone] Referring Internal Medicine 03/16/23 Antony Espinoza MD [address] [place] [address] Home Care Provider Family Medicine 03/18/23 Bisi Buenrostro APRN.SHIRT IRONER [address] [place], [place] [id number] [facility] Selena Velásquez APRN.SHIRT IRONER [address] [place] [employer], [place] [phone] [facility] 10/26/24 Leather Goods Assembler Relationship Specialty Start Date End Date Antony Espinoza MD [address] [place] [employer], [place] [id number] PCP - General Family Medicine 10/04/21 Meka Samson APRN.SHIRT IRONER [address] [place] [address] [phone] Referring Internal Medicine 03/16/23 Antony Espinoza MD [address] [place] [employer], [place] [id number] Home Care Provider Family Medicine 03/18/23 Bisi Buenrostro APRN.SHIRT IRONER [address] [place], [place] [id number] [facility] 10/26/24 Selena Velásquez TOOL HARDENER.SHIRT IRONER [address] [place] [employer], [place] [id number] [facility] 10/26/24 Goals (unrecognized section and content) Goals may be documented in a n alternate section Active Administered Medications - up to 3 most recent administrations Administered Medications (un recognized section and content) Medication Order MAR Action Action Date Dose Rate Site PHENYLephrine 2.5 % 1 Drop (AK-DILATE, MAUREEN-SYNEPHRINE) 1 Drop, BOTH EYES, DIRECTED, Starting on Sat01/01/24 at 0800, Until Sat01/01/24 at 1958, Administer for dilation PROTECT FROM LIGHT Given 01/01/2024 7:54 AM EST 1 Drop proparacaine 0.5 % 1 Drop (ALCAINE) 1 Drop, BOTH EYES, DIRECTED, Starting on Sat01/01/24 at 0800, Until Sat01/01/24 at 1958, Administer for pneumo tonometry, tonopen tonometry, or pachymetry. In the event of a proparacaine shortage, administer tetracaine 0.5% ophthalmic drops 1 drop in the left eye as directed for pneumo tonometry, tonopen tonometry, or pachymetry Given 01/01/2024 7:54 AM EST 1 Drop tropicamide 1 % 1 Drop (MYDRIACYL) 1 Drop, BOTH EYES, DIRECTED, Starting on Sat01/01/24 at 0800, Until Sat01/01/24 at 1958, Administer for dilation Given 01/01/2024 7:54 AM EST 1 Drop FOR RECORDS PERTAINING TO PATIENTS WHO ARE OR HAVE BEEN ENROLLED IN A CHEMICAL DEPENDENCY/SUBSTANCEABUSE PROGRAM, SOME INFORMATION MAY BE OMITTED. This clinical summary was aggregated from multiple sources. Caution should be exercised in using it in the provision of clinical care. This summary normalizes information from multiple sources, and as a consequence, information in this document may materially change the coding, format and clinical context of patient data. In addition, data may be omitted in some cases. CLINICAL DECISIONS SHOULD BE BASED ON THE PRIMARY CLINICAL RECORDS. [email or web address] provides no warranty or guarantee of the accuracy or completeness of information in this document.
[2025-04-23] MEDS: Ondansetron 4 MG/2 ML Vial IV (21:00)
[2025-04-23] MEDS: Morphine 2 MG/ML Syringe IV (21:00)
[2025-04-23 21:02] LABS: Absolute Lymphocyte Count 2.91 X10^3/uL (0.83-4.51); Absolute Neutrophil Count 4.1 X10^3/uL (2.0-7.7); Basophil# 0.03 X10^3/uL; Basophil% 0.4 % (0-1); Eosinophil# 0.15 X10^3/uL; Eosinophils% 1.9 % (0-5); Hematocrit 39.5 % (40-54); Hemoglobin 13.1 g/dL (13.0-16.5); Lymphocyte # 2.91 X10^3/ul (0.83-4.51); Lymphocyte % 37.3 % (19-41); Mean Corp Hgb Conc 33.2 g/dL (32-36); Mean Corpuscular Hgb 32.6 pg (27.0-32.0); Mean Corpuscular Volume 98.3 fL (80-94); Mean Platelet Vol. 11.6 fl (6.2-12.0); Monocyte# 0.62 X10^3/uL; Monocyte% 7.9 % (0-10); NRBC Flagged by Analyzer 0.3 % (0-5); Neutrophil # 4.06 X10^3/uL (2.7-7.7); Platelet Count 187 K/mm3 (150-450); RBC Distribution Width CV 15.1 % (11.6-14.6); RBC Distribution Width SD 53.9 fl (35.1-43.9); Red Blood Count 4.02 M/mm3 (4.6-6.2); White Blood Count 7.8 K/mm3 (4.4-11.0)
--- NOTE | 2025-04-23 21:05 | RAD_ITS ---
PROCEDURE: HIP, UNI W/ PELVIS 2-3 VIEWS 04/23/2025 REASON FOR EXAM: L HIP PAIN TECHNIQUE: Three views of the pelvis and left hip COMPARISON: None FINDINGS: See impression RAD/HIP, UNI W/ Pelvis 2-3 Views IMPRESSION: Acute comminuted intertrochanteric fracture of the left femur with mild shorten ing and varus angulation. No additional fractures or dislocation. Reading Location: [facility]
--- NOTE | 2025-04-23 21:08 | EX.ED.GENINJ ---
HPI <ALANA Bonilla - Last Filed: 04/23/25 21:53> History of Present Illness Chief Complaint: Fall Narrative Narrative: Patient presenting today with his due to a mechanical fall that occurred this evening. They were on their way to [place] when he tripped over the curb and landed on his left hip. He did not hit his head and denies LOC, he is not on any blood thinners. He has an externally rotated and shortened left lower extremity. He denies any other injury aside from left hip pain. He was not able to ambulate, EMS was called and brings him in for evaluation. He has a PMH of CKD, CHF, T2DM. PFSH <ALANA Bonilla - Last Filed: 04/23/25 21:53> [facility] Medical History COVID-19 Former smoker Degenerative disc disease, cervical Benign prostate hyperplasia Left bundle branch block Anxiety Mild cognitive impairment with memory loss Alzheimer's disease Hypertension DM2 (diabetes mellitus, type 2) HTN (hypertension) Gout Heart failure with reduced ejection fraction Hairy cell leukemia Hyperlipidemia Home Medications ?Medication ?Instructions ?Recorded ?Last Taken ?Type atorvastatin 10 mg tablet 10 mg PO QHS CHOLESTEROL 11/20/15 04/23/25 History doxazosin 1 mg tablet 1 mg PO QHS prostate 11/20/15 04/23/25 History donepezil 5 mg tablet 10 mg PO QHS memory 11/28/17 04/23/25 History paroxetine HCl 10 mg tablet 10 mg PO DAILY anxiety 11/28/17 04/23/25 History allopurinol 300 mg tablet 300 mg PO DAILY GOUT 04/30/18 04/23/25 History (Zyloprim) memantine 5 mg tablet 10 mg PO BID memory 05/26/21 04/22/25 History ibuprofen 200 mg capsule 200 mg PO Q4H PRN Pain 03/05/23 04/22/25 History cholecalciferol (vitamin D3) 25 25 mcg PO DAILY ordered 05/14/23 04/23/25 History mcg (1,000 unit) tablet losartan 50 mg tablet 50 mg PO DAILY BP 04/23/25 04/23/25 History Allergy/AdvReac Type Severity Reaction Status Date / Time gabapentin Allergy tremors Verified 04/23/25 20:24 metoprolol (From Toprol XL) Allergy PT UNSURE Verified 04/23/25 20:24 OF REACTION ramipril (From Altace) Allergy PT UNSURE Verified 04/23/25 20:24 OF REACTION Family History Mother Cancer Father Heart disease Hypertension Surgical History History of parathyroid surgery Hx of splenectomy History of appendectomy H/O total hip arthroplasty Social History household members: spouse Smoking Status: Former smoker alcohol intake: never substance use type: does not use ROS <ALANA Bonilla - Last Filed: 04/23/25 21:53> ROS ED Constitutional Constitutional ED: Denies chills or fever(s) Cardiovascular Cardiovascular: Denies chest pain Respiratory/Chest Respiratory/Chest: Denies dyspnea Gastrointestinal Gastrointestinal: Denies abdominal pain, nausea or vomiting Musculoskeletal Musculoskeletal: Reports arthralgias; Denies back pain or neck pain Integumentary Denies Abrasions Neurologic Neurologic: Denies paresthesias EXAM <ALANA Bonilla - Last Filed: 04/23/25 21:53> Physical Exam Const Vital Signs: 04/23/25 20:24 04/23/25 20:32 Temperature 97.9 F Temperature Source Oral Pulse Rate 58 L Respiratory Rate 16 Respiratory Effort Normal Non-Labored Blood Pressure 159/94 H Blood Pressure Mean 115 Pulse Ox 95 Oxygen Delivery Method Room Air Positive well nourished, well developed and no apparent distress General Appearance ED: well developed HEENT Reports normocephalic and head/scalp atraumatic Mouth ED: Yes moist mucous membranes normal Eyes PERRL and EOMs intact bilaterally Neck full ROM and supple General: Negative for tenderness Chest Wall inspection of chest normal and palpation of chest normal Resp normal respiratory effort and clear to auscultation bilaterally Cardio regular rate and regular rhythm GI soft to palpation, non-tender, non-distended and no masses Back/Spine normal ROM and normal to inspection Extremity Extremity Narrative: Externally rotated and shortened left lower extremity, positive logroll on the left, pain palpation to the left greater trochanter, left DP pulse 2+, good cap refill, sensation intact Neuro oriented x3, CN's II-XII intact bilaterally, moves all extremities, no focal motor deficits and no sensory deficits noted Sensorium / Orientation: awake and alert Psych mental status grossly normal and thought process normal Skin no rashes or lesions noted and no wounds <Dr. Aubrey Pascual DO - Last Filed: 04/23/25 23:35> Physical Exam Const Vital Signs: 04/23/25 20:24 04/23/25 20:32 Temperature 97.9 F Temperature Source Oral Pulse Rate 58 L Respiratory Rate 16 Respiratory Effort Normal Non-Labored Blood Pressure 159/94 H Blood Pressure Mean 115 Pulse Ox 95 Oxygen Delivery Method Room Air MDM <Margy Leroy PA - Last Filed: 04/23/25 21:53> MDM MDM Narrative Medical decision making narrative: Patient presenting today due to concerns for left hip pain following a mechanical fall that occurred this evening. He did not hit his head, no LOC occurred. He has a externally rotated and shortened left lower extremity concerning for hip fracture. X-ray will be obtained. He was given IV morphine and Zofran for pain. Labs will be obtained. CBC is unremarkable, potassium 5.3, creatinine 1.81 which is consistent with previous labs. X-ray of the hip shows a comminuted intertrochanteric fracture of the left femur. I spoke with Dr. Miranda, he will plan on repairing this tomorrow. I will speak with the hospitalist regarding admission. Additional preop labs/imaging will be obtained. Patient remains in stable condition. Lab Data Attestation: I reviewed the patient's lab results. Labs: Laboratory Results - last 24 hr 04/23/25 04/23/25 20:25 21:45 WBC 7.8 RBC 4.02 L Hgb 13.1 Hct 39.5 L MCV 98.3 H MCH 32.6 H MCHC 33.2 RDW Std Deviation 53.9 H RDW Coeff of Eduarda 15.1 H Plt Count 187 MPV 11.6 Immature Gran % (Auto) 0.500 Neut % (Auto) 52.0 Lymph % (Auto) 37.3 [place] % (Auto) 7.9 Eos % (Auto) 1.9 Baso % (Auto) 0.4 Absolute Neuts (auto) 4.1 Absolute Lymphs (auto) 2.91 Nucleated RBC % 0.3 PT 13.9 INR 1.1 Sodium 140 Potassium 5.3 H Chloride 107 Carbon Dioxide 23.5 Anion Gap 10 BUN 38 H Creatinine 1.81 H Estim Creat Clear Calc 28.91 L Est GFR (MDRD) Non-Af 37 L BUN/Creatinine Ratio 21.2 H Glucose 86 Calcium 8.9 Magnesium 2.3 H Radiography Diagnostic Testing: Clinical Impression(s) from Imaging Studies Hip/Pelvis X-Ray 04/23/25 21:05 IMPRESSION: Acute comminuted intertrochanteric fracture of the left femur with mild shortening and varus angulation. No additional fractures or dislocation. Reading Location: [facility] <Dr. Aubrey Pascual DO - Last Filed: 04/23/25 23:35> [facility] Narrative Medical decision making narrative: Patient presenting today due to concerns for left hip pain following a mechanical fall that occurred this evening. He did not hit his head, no LOC occurred. He has a externally rotated and shortened left lower extremity concerning for hip fracture. X-ray will be obtained. He was given IV morphine and Zofran for pain. Labs will be obtained. CBC is unremarkable, potassium 5.3, creatinine 1.81 which is consistent with previous labs. X-ray of the hip shows a comminuted intertrochanteric fracture of the left femur. I spoke with Dr. Miranda, he will plan on repairing this tomorrow. I will speak with the hospitalist regarding admission. Additional preop labs/imaging will be obtained. Patient remains in stable condition. EKG: Sinus bradycardia, left bundle branch block, no ST changes. Similar to June 2021. Attending note: I have personally performed a face to face assessment of the patient and have reviewed the DEMETRIUS note. I personally made/approved the management plan and take responsibility for the patient management. I performed a substantive portion of the visit including all aspects of the following. My bentley findings include: Mechanical fall left hip injury. Brought in by EMS. No head injuries. No anticoagulants. Right hip repair from fracture [address] Parker. Exam GCS 15. Left lower extremity shortened and rotated positive logroll. Treated for pain three-view x-ray left hip and pelvis intertrochanteric fracture with displacement. 1 view preop chest x-ray inter by self elevated left hemidiaphragm. No infiltrates. EKG sinus rhythm chronic left bundle branch. Labs are stable. We discussed with orthopedist Dr. Miranda admit to medicine with planned surgical intervention tomorrow. Lab Data Labs: Laboratory Results - last 24 hr 04/23/25 04/23/25 20:25 21:45 WBC 7.8 RBC 4.02 L Hgb 13.1 Hct 39.5 L MCV 98.3 H MCH 32.6 H MCHC 33.2 RDW Std Deviation 53.9 H RDW Coeff of Eduarda 15.1 H Plt Count 187 MPV 11.6 Immature Gran % (Auto) 0.500 Neut % (Auto) 52.0 Lymph % (Auto) 37.3 [place] % (Auto) 7.9 Eos % (Auto) 1.9 Baso % (Auto) 0.4 Absolute Neuts (auto) 4.1 Absolute Lymphs (auto) 2.91 Nucleated RBC % 0.3 PT 13.9 INR 1.1 Sodium 140 Potassium 5.3 H Chloride 107 Carbon Dioxide 23.5 Anion Gap 10 BUN 38 H Creatinine 1.81 H Estim Creat Clear Calc 28.91 L Est GFR (MDRD) Non-Af 37 L BUN/Creatinine Ratio 21.2 H Glucose 86 Calcium 8.9 Magnesium 2.3 H Radiography Diagnostic Testing: Clinical Impression(s) from Imaging Studies Hip/Pelvis X-Ray 04/23/25 21:05 IMPRESSION: Acute comminuted intertrochanteric fracture of the left femur with mild shortening and varus angulation. No additional fractures or dislocation. Reading Location: [facility] Discharge Plan Dx/Rx/DC Orders Clinical Impression: Closed fracture of left hip, CKD (chronic kidney disease), Fall Disposition Disposition: Acute Care Hospital [facility]
[2025-04-23 21:26] LABS: Anion Gap 10 (5-15); BUN 38 mg/dL (4-19); BUN/Creat Ratio 21.2 RATIO (10-20); Calcium,Total 8.9 mg/dL (7.6-11.0); Carbon Dioxide 23.5 mmol/L (21.0-32.0); Chloride 107 mmol/L (98-108); Creatinine, Serum 1.81 mg/dL (0.70-1.20); EST Glomerular Filtration Rate 37 (>60); Estimated Creatinine Clearance 28.91 ml/min (50-250); Glucose 86 mg/dL (70-99); Potassium 5.3 mmol/L (3.3-5.1); Sodium Level 140 mmol/L (133-145)
--- NOTE | 2025-04-23 21:33 | EKG12_ITS ---
Test Reason : PRE-OP Blood Pressure : */* mmHG Vent. Rate : 58 BPM Atrial Rate : 58 BPM P-R Int : 168 ms QRS Dur : 132 ms QT Int : 474 ms P-R-T Axes : 31 -13 155 degrees QTcB Int : 465 ms Sinus bradycardia Left bundle branch block Abnormal ECG Confirmed by ELVI MALCOLM, DAJUAN ([id number]), development editor ELGIN ROJO ([id number]) on 04/26/2025 6:55:06 AM Referred By: KHLOE Confirmed By: DAJUAN BOLES MD
--- NOTE | 2025-04-23 21:56 | PCM.HP.STD ---
HPI - General General Date of Admission: 04/23/25 Date of Service: 04/23/25 Chief Complaint: Fall, L hip pain. HPI Narrative The patient is an 85 y/o M w/ PMHx: Alzheimer's disease with mild cognitive impairment with unclear behavioral disturbance history, Hairy Cell Leukemia following w/ Dr. Andrade Dx 1982, HFrEF (EF 35%, prior was following w/ Ed Tech Dr. Wells, s/p cath 2004), CKD stage III unclear subtype per GFR trending, HTH, HLD Gout, chart reported history diabetes mellitus type II, BPH with obstructive pathology, Chronic anemia/iron deficiency anemia anxiety and Depression who presents to the [facility] ED on 04/23/25 with history of walking with his on the sidewalk specifically on the outside toward the curb on the way to getting lunch unfortunately baseline walking over hunched with a cane when his foot folded over the curb and he fell against a vehicle then landing on the ground onto his left hip and leg and eventually falling onto the sidewalk with no head trauma or loss of consciousness but significant onset immediate intractable left hip and leg pain 10 out of 10 in severity, severe sharp with obvious deformity and external rotation prompting ED evaluation. Workup in the ED included T97.9, heart rate 58, BP 159/94, respiratory rate 16, 95% on room air, CBC with WBC 7.8, hemoglobin 13.1, platelet 187 without marked shift, unremarkable coags, BMP with potassium 5.3, BUN/Frankie 38/1.81, GFR 37, chest x-ray with subtle patchy opacity right midlung zone possibly chronic changes, linear opacity left mid lung zone likely atelectasis or scarring, plain film of the left hip and pelvis with an acute comminuted intertrochanteric fracture of the left femur with mild shortening and varus angulation, pending EKG upon evaluation of patient. ED physician did discuss patient with Dr. Miranda orthopedic surgeon with surgeon preference for OR 04/24/2025. [facility] Medical History (Updated 04/24/25 @ 01:[address] Paty Morgan MD) Anxiety and depression COVID-19 Former smoker Degenerative disc disease, cervical Benign prostate hyperplasia Left bundle branch block Mild cognitive impairment with memory loss Alzheimer's disease Hypertension DM2 (diabetes mellitus, type 2) HTN (hypertension) Gout Heart failure with reduced ejection fraction Hairy cell leukemia Hyperlipidemia Home Medications ?Medication ?Instructions ?Recorded ?Last Taken ?Type atorvastatin 10 mg tablet 10 mg PO QHS CHOLESTEROL 11/20/15 04/23/25 History doxazosin 1 mg tablet 1 mg PO QHS prostate 11/20/15 04/23/25 History donepezil 5 mg tablet 10 mg PO QHS memory 11/28/17 04/23/25 History paroxetine HCl 10 mg tablet 10 mg PO DAILY anxiety 11/28/17 04/23/25 History allopurinol 300 mg tablet 300 mg PO DAILY GOUT 04/30/18 04/23/25 History (Zyloprim) memantine 5 mg tablet 10 mg PO BID memory 05/26/21 04/22/25 History ibuprofen 200 mg capsule 200 mg PO Q4H PRN Pain 03/05/23 04/22/25 History cholecalciferol (vitamin D3) 25 25 mcg PO DAILY ordered 05/14/23 04/23/25 History mcg (1,000 unit) tablet losartan 50 mg tablet 50 mg PO DAILY BP 04/23/25 04/23/25 History Allergy/AdvReac Type Severity Reaction Status Date / Time gabapentin Allergy tremors Verified 04/23/25 20:24 metoprolol (From Toprol XL) Allergy PT UNSURE Verified 04/23/25 20:24 OF REACTION ramipril (From Altace) Allergy PT UNSURE Verified 04/23/25 20:24 OF REACTION Family History Mother Cancer Father Heart disease Hypertension Surgical History History of parathyroid surgery Hx of splenectomy History of appendectomy H/O total hip arthroplasty Social History household members: spouse Smoking Status: Former smoker alcohol intake: never substance use type: does not use ROS ROS Narrative Admission Review of Systems: CONSTITUTIONAL: No weight loss, fever, chills, + weakness or fatigue. HEENT: Eyes: No visual loss, blurred vision, double vision or yellow sclerae. Ears, Nose, Throat: No hearing loss, sneezing, congestion, runny nose or sore throat. SKIN: No rash or itching, lesions, wounds except + very states ecchymoses, abrasions. CARDIOVASCULAR: No chest pain, chest pressure or chest discomfort, palpitations, edema, orthopnea, syncopal events. RESPIRATORY: No shortness of breath, cough or sputum, wheezing, hemoptysis. GASTROINTESTINAL: No anorexia, nausea, vomiting or diarrhea, abdominal pain, melena, BRBPR. GENITOURINARY: + BPH with obstructive pathology. No dysuria, frequency, urgency. NEUROLOGICAL: + Underlying Alzheimer's dementia. No headache, dizziness, syncope, paralysis, ataxia, numbness or tingling in the extremities, focal weakness, change in bowel or bladder control, seizure. MUSCULOSKELETAL: + muscle, back pain, joint pain or stiffness. HEMATOLOGIC: + Chronic anemia, easy bleeding/bruising. LYMPHATICS: No enlarged nodes. No history of splenectomy. PSYCHIATRIC: + History of anxiety and depression. ENDOCRINOLOGIC: No reports of sweating, cold or heat intolerance. No polyuria or polydipsia. ALLERGIES: No history of asthma, hives, eczema or rhinitis. Vital Signs Vital Signs Vital Signs: 04/23/25 20:24 04/23/25 20:32 Temperature 97.9 F Temperature Source Oral Pulse Rate 58 L Respiratory Rate 16 Respiratory Effort Normal Non-Labored Blood Pressure 159/94 H Blood Pressure Mean 115 Pulse Ox 95 Oxygen Delivery Method Room Air Weight Weight: 158 lb 15.253 oz Body Mass Index (BMI) 24.9 Physical Exam Narrative Physical Examination: General: Awake, alert, oriented to self, place and recent events, does have underlying Alzheimer's dementia with some mild cognitive impairment, remains cooperative, laying in ED bed, notes persistent ongoing severe left hip pain, currently 8 out of 10 in severity. Skin: Normal color, normal turgor, no icterus, no cyanosis except occasional stage ecchymoses, abrasions. HEENT: AT/NC, EOMI, PERRLA, mildly dry MM, no carotid bruits or JVD noted. Lungs: CTA bilaterally, moderate effort, mild decrease BL bases, no rales, ronchi or wheezing. Heart: Mildly bradycardic with regular rhythm; no gallop, rub audible. Abdomen: Soft, NTTP, ND, hyperactive BS, no appreciated HSM. Extremities: No cyanosis, no clubbing, status post fall with left hip fracture with left lower extremity external rotation, peripheral pulses intact, pedal to mid lee chronic edema present. Neurological: Patient awake, alert, oriented as noted, cognitive function currently appears baseline intact per report with underlying mild cognitive impairment with dementia; pupils equally reactive to light and accommodation, cranial nerves grossly normal, moving all 4 extremities except extremely limited left lower extremity given fall with left hip fracture but able to move toes, strength accordingly severely globally decreased. Psychiatric: Affect appears uncomfortable, no acute evidence of depressive or anxiety feelings but does have underlying history. Results Lab / Micro Data 04/23/25 20:25 04/23/25 20:25 Labs: Laboratory Results - last 24 hr 04/23/25 20:25: WBC 7.8, RBC 4.02 L, Hgb 13.1, Hct 39.5 L, MCV 98.3 H, MCH 32.6 H, MCHC 33.2, RDW Std Deviation 53.9 H, RDW Coeff of Eduarda 15.1 H, Plt Count 187, MPV 11.6, Immature Gran % (Auto) 0.500, Neut % (Auto) 52.0, Lymph % (Auto) 37.3, [place] % (Auto) 7.9, Eos % (Auto) 1.9, Baso % (Auto) 0.4, Absolute Neuts (auto) 4.1, Absolute Lymphs (auto) 2.91, Nucleated RBC % 0.3, Sodium 140, Potassium 5.3 H, Chloride 107, Carbon Dioxide 23.5, Anion Gap 10, BUN 38 H, Creatinine 1.81 H, Estim Creat Clear Calc 28.91 L, Est GFR (MDRD) Non-Af 37 L, BUN/Creatinine Ratio 21.2 H, Glucose 86, Calcium 8.9 Imaging Radiology Impression Hip/Pelvis X-Ray 04/23/25 21:05 IMPRESSION: Acute comminuted intertrochanteric fracture of the left femur with mild shortening and varus angulation. No additional fractures or dislocation. Reading Location: [facility] Assessment & Plan Assessment/Plan (1) Fall: (2) Closed fracture of left hip: PLAN: Plan The patient is an 85 y/o M w/ PMHx: Alzheimer's disease with mild cognitive impairment with unclear behavioral disturbance history, Hairy Cell Leukemia following w/ Dr. Andrade Dx 1982, HFrEF (EF 35%, prior was following w/ Ed Tech Dr. Wells, s/p cath 2004), CKD stage III unclear subtype per GFR trending, HTH, HLD Gout, chart reported history diabetes mellitus type II, BPH with obstructive pathology, Chronic anemia/iron deficiency anemia anxiety and Depression who presents to the [facility] ED on 04/23/25 with history of walking with his on the sidewalk specifically on the outside toward the curb on the way to getting lunch unfortunately baseline walking over hunched with a cane when his foot folded over the curb and he fell against a vehicle then landing on the ground onto his left hip and leg and eventually falling onto the sidewalk with no head trauma or loss of consciousness but significant onset immediate intractable left hip and leg pain 10 out of 10 in severity, severe sharp with obvious deformity and external rotation prompting ED evaluation. #1. General debility, left hip pain s/p mechanical fall w/ acute comminuted intertrochanteric fracture of the left femur with mild shortening and varus angulation: Orthopedic surgery consulted from ED. Will admit to MS, maintain NPO, continue gentle IVFs, brooks placement, monitor I/Os, frequent positioning, fall precautions, Pain, anti-emetic regimen. PT/OT following operative intervention. CM consulted for discharge planning. Per NSQIP patient does carry significant risk especially given underlying comorbidities and underlying cardiac disease with HF R EF with last EF noted 35%. Discussed with ED physician and EKG is being obtained in addition to plan for echocardiogram, BNP and cardiology evaluation previous to transition to the OR which was relayed to orthopedic surgery. Ideally patient would be seen earlier in the day by cardiology and echocardiogram will be obtained earlier in the day with decision for transition to the OR in the afternoon if amenable. #2. Hyperkalemia, mild: Admission potassium 5.3, judiciously hydrating given n.p.o. status, will repeat CMP in a.m. and if further elevated may consider hyperkalemic protocol. #3. CKD stage III, unclear subtype: Admission BUN/creatinine 38/1.81, GFR 37, baseline creatinine more recently has been 1.4-1.8, continue to trend CMP. #4. BPH: With obstructive pathology we will continue patient home doxazosin home regimen, monitor for retention. #5. Hairy Cell Leukemia: Patient following w/ Dr. Andrade Dx 1982 s/p splenectomy w/ relapse 1984 with Tx Pentastatin/ECOG protocol w/ remission achieved, last visit noted 05/12/2024, encourage continued outpatient follow-up as previously arranged. #6. Chronic macrocytic anemia/iron deficiency anemia: Admission hemoglobin 13.1, MCV 98.3, baseline hemoglobin appears 11-12 however last lab noted 05/12/2024 thus 1 year previous, will continue to trend CBC. #7. Chronic HFrEF: Patient with no echocardiogram noted in the system, last noted EF 35% from remote catheterization 2004 with nonobstructive disease, given his history will very judiciously hydrate preop, continue aspirin, statin, continue judicious hydration given his history, continue aspirin, statin, losartan home regimen, not on beta-lynn therapy. Echo cutting requested for preoperative clearance as well as BNP. #8. Alzheimer's disease with associated dementia with associated mild cognitive impairment with unclear behavioral disturbance history: Complicates presentation, maintain on fall precautions, continue patient home memantine and donepezil regimen, PT/OT/case management consultation for discharge planning. #9. Anxiety and depression: We will continue patient home paroxetine regimen. #10. Chart reported history diabetes mellitus type II: Not on regimen per current list, he 1 A1c requested, in the interim maintain on ADA diet until n.p.o. status, accu checks w/ ISS. #11. Hypertension: Continue home regimen including losartan cautiously with hold if renal function worsens as noted, PRN hydralazine. #12. Hyperlipidemia: Continue patient home statin therapy. #13. Gout: Continue patient home allopurinol regimen. #14. DVT prophylaxis: SCDs, defer chemoprophylaxis for planned operative intervention per orthopedic surgery. #15. CODE status: Patient HCPOA is his and living will is currently in place. Discussed CODE status at length including difference between FULL code, DNR-CCA and DNR-CC status. Following discussions about the differences in these status, requested continuation of full Code status. Advanced Care Planning Face to Face Time: 16 minutes. Charges/Coding Visit Charges Inpatient E&M: 78353 Init Hosp L3 Procedures Hospitalists Procedures: 31583 Advncd Care Plan 30 Min
--- OUTSIDE RECORDS SUMMARY | 2025-04-23 22:16 | XMS RPT_ITS | CCD ---
Author Organization [facility] Care Team Providers Care Forging Dies Final Finisher Name Role Phone Antony Espinoza MD Primary Care Provider BLANCHE MUNOZ Attending Unavailable BLANCHE MUNOZ Admitting Unavailable ANTONY ESPINOZA Primary Care Unavailable Dr. Antony Espinoza Primary Care Provider Dr. Christiano Eastman Emergency Provider Dr. Paty Morgan Admit Provider Dr. Paty Morgan Other Provider Dr. James Griffiths Attending Provider Dr. James Griffiths Other Provider Antony Espinoza MD Primary Care Provider Rock STAFFING ACCOUNT MANAGER.Meka SAHU Unavailable [phone] Antony Espinoza MD Unavailable Harinder Isaac RN Unavailable Antony Espinoza MD Primary Care Provider Dedrick Andrade Attending Unavailable Antony Espinoza Primary Care Unavailable Antony Espinoza Referring Unavailable Dedrick Andrade Attending Unavailable Antony Espinoza Primary Care Unavailable Antony Espinoza Referring Unavailable Dedrick Andrade Attending Unavailable Antony Espinoza Primary Care Unavailable Wilfred Vázquez III Referring Unavailable Chapin STAFFING ACCOUNT MANAGER.Meka SAHU Unavailable Carlie STAFFING ACCOUNT MANAGER.W[employer]ANT SUPERVISOR, Alex BOLDEN Primary Care Provider SHAJI GAONA Attending UnavailANTONY Walker Primary Care Unavailable SHAJI GAONA Attending UnavailANTONY Walker Primary Care Unavailable Haagen STAFFING ACCOUNT MANAGER.Bisi SAHU Unavailable Suppan STAFFING ACCOUNT MANAGER.Selena SAHU Unavailable [phone] Suppan STAFFING ACCOUNT MANAGER.ADELINAAleaSelena A Unavailable [phone] ANTONY ESPINOZA Attending Unavailable SELF Referring Unavailable ANTONY ESPINOZA Primary Care Unavailable TESTRAKE, LORI Attending Unavailable TESTRAKE, LORI Referring Unavailable ANTONY ESPINOZA Primary Care Unavailable TESTRAKE, LORI Attending Unavailable TESTRAKE, LORI Referring Unavailable ANTONY ESPINOZA Primary Care Unavailable TESTRAKE, LORI Attending Unavailable ANTONY ESPINOZA Primary Care Unavailable TESTJACKIE, LORI Attending Unavailable ANTONY ESPINOZA Primary Care Unavailable ANTONY ESPINOZA Referring Unavailable ANTONY ESPINOZA Primary Care Unavailable Allergies Allergy Classification Reported Allergen(s) Allergy Type Date of Onset Reaction(s) Facility (20 sources) gabapentin; Translations: [GABAPENTIN] Drug Allergy 3 Other: See Comments [facility] (20 sources) Metoprolol; Translations: [METOPROLOL SUCCINATE] Drug Allergy 5 [facility] (20 sources) Ramipril; Translations: [RAMIPRIL] Drug Allergy 5 PT UNSURE OF REACTION [facility] (2 sources) Metoprolol Drug Allergy 3 PT UNSURE OF REACTION [facility] (1 source) gabapentin Drug Allergy 4 [facility] Repository (1 source) Metoprolol Drug Allergy 4 [facility] Repository (1 source) Ramipril Drug Allergy 4 [facility] Repository Medications Current Medications Medication Drug Class(es) [...] daily. docusate sodium 50 mg / sennosides, [facility] 8.6 mg oral tablet (5 sources) Start: [...] hydrochloride 10 mg oral tablet (20 sources) O-ycdaqy-V-aspartate Receptor Antagonist Start: 3 End: take 1 [...] by mouth three times daily at mealtime ohgliky-atlhkoetn-pjv torres D3 (CALCIUM 500+D) 500 mg-5 mcg [...] D2) (Vitamin D2) 50,000 UNIT capsule Discontinued 01945 UNIT PO Q7D@1000 August 22, 2018 12:00am [...] Comment on above: [facility] 12 hr guaiFENesin 1200 [...] on above: Take [address] [facility] every 4 hours as needed for pain [...] Coronary atherosclerosis; Translations: [Atherosclerotic heart disease of [place] coronary artery without angina pectoris] Onset: [...] Test Name Value Interpretation Reference Range Facility [facility] 04-09-2025 CNOV Office Visit (PODIWS ) MICHAEL MULLINS ([id number]) 1940 M Date Time Provider Department 04/09/25 [...] Objective: Patient presents to clinic ambulating in [facility] Vasc: DP and PT pulses are [...] (or decreased sensation in your feet) a contract engineer should always cut your toenails. Be Careful [...] provider recom (more content not included)... Normal [facility] CNOVon 01-08-2025 CNOV Office Visit (PODIWS ) MICHAEL MULLINS ([id number]) 1940 M Date Time Provider Department 01/08/25 [...] (or decreased sensation in your feet) a contract engineer should always cut your toenails. Be Careful [...] Go to your health care provider or contract engineer to treat these conditions. Lori Goodman 01/08/2025 [...] no ch (more content not included)... Normal [facility] Juan Miguel [facility] MICHAEL MULLINS ([id number]) 1940 M Date Time Provider Department 11/16/24 [...] unspecified whether stage 3a or 3b CKD ([facility]) [N18.30] Order(s):CONSULT TO NEPHROLOGY [9018] Order #: [id number]: 1 FUTURE Prescriptions as of 11/20/2024 - [...] Status:Closed by MIRLANDE KEYES on 11/17/24 Normal [facility] ALBUMIN/CREATININE RATIO, UR INEon 11-13-2024 Albumin DL <= 20 mg/L (U) [Mass/Vol] 836.7 mg/L Normal [facility] Comment on above: Order Comment: Speci men Type: URINE SPECIMENOrdering Facility: [facility] Address: [address] [place] [address] Performed By: #### U ACR ####[facility] LABCLIA [id number] [place] [address] [place] Albumin/Creatinine (U) [Mass ratio] 585 mg/g High <30 [facility] Comment on above: Order Comment: Speci men Type: URINE SPECIMENOrdering Facility: [facility] Address: [address] [place] [address] Result Comment: Adul t Male and Female Nephrotic Criteria: <30 mg/g is considered normal to mildly increased 30-300 mg/g is considered moderately increased >300 mg/g is considered severely increased KDIGO. (2013). KDIGO 2012 Clinical Practice Guideline for the Evaluation and Management of Chronic Kidney Disease. Official Journal of the International Society of Nephrology, 3(1), 1-150. Performed By: #### U ACR ####[facility] LABCLIA [id number] [place] [address] [place] Creatinine (U) [Mass/Vol] 143.0 mg/dL Normal 20.0-300.0 [facility] Comment on above: Order Comment: Speci men Type: URINE SPECIMENOrdering Facility: [facility] Address: [address] [place] [address] Performed By: #### U ACR ####[facility] LABCLIA [id number] [place] [address] [place] CBC W Auto Differential pane l (Bld)on 11-13-2024 Basophils (Bld) [#/Vol] 0.03 10*3/uL [facility] Basophils/100 WBC (Bld) 0.3 % [facility] Differential cell count method Nom (Bld) Auto [facility] Eosinophils (Bld) [#/Vol] 0.11 10*3/uL [facility] Eosinophils/100 WBC (Bld) 1.2 % [facility] Erythrocyte distribution width (RBC) [Ratio] 15.5 % High 11.5 - 15.0 % [facility] Hematocrit (Bld) [Volume fraction] 42.9 % 39.0 - 51.0 % [facility] Hemoglobin (Bld) [Mass/Vol] 13.7 g/dL 13.0 - 17.0 g/dL [facility] Immature granulocytes (Bld) [#/Vol] 0.04 10*3/uL [facility] Immature granulocytes/100 WBC (Bld) 0.4 % [facility] Interpretation and review of laboratory results Abnormal [facility] Lymphocytes (Bld) [#/Vol] 2.96 10*3/uL [facility] Lymphocytes/100 WBC (Bld) 31.0 % [facility] MCH (RBC) [Entitic mass] 32.1 pg 26. 0 - 34.[address] [facility] MCHC (RBC) [Mass/Vol] 31.9 g/dL 30.5 - 36.0 g/dL [facility] MCV (RBC) [Entitic vol] 100.5 fL High 80.0 - 100.[address] [facility] Monocytes (Bld) [#/Vol] 0.59 10*3/uL [facility] Monocytes/100 WBC (Bld) 6.2 % [facility] Neutrophils (Bld) [#/Vol] 5.83 10*3/uL [facility] Neutrophils/100 WBC (Bld) 60.9 % [facility] Nucleated RBC (Bld) [#/Vol] [facility] Nucleated RBC/100 WBC (Bld) [Ratio] 0.0 % /[address] [facility] Platelet mean volume (Bld) [Entitic vol] 10.7 fL 9.0 - 12.[address] [facility] Platelets (Bld) [#/Vol] 170 10*3/uL [facility] RBC (Bld) [#/Vol] 4.27 10*6/uL 4.20 - 6.0 0 m/uL [facility] WBC (Bld) [#/Vol] 9.56 10*3/uL [facility] Basophils (Bld) [#/Vol] 0.03 10*3/uL Normal <0.11 [facility] Comment on above: Order Comment: Speci men Type: BLOOD SPECIMENOrdering Facility: [facility] Address: [address] [place] [address] Performed By: #### 5 7021-8 ####[facility] LABCLIA [id number] [place] [address] [place] Basophils/100 WBC (Bld) 0.3 % Normal C [facility] Comment on above: Order Comment: Speci men Type: BLOOD SPECIMENOrdering Facility: [facility] Address: [address] [place] [address] Performed By: #### 5 7021-8 ####[facility] LABCLIA [id number] [place] [address] [place] Differential cell count method Nom (Bld) Auto Normal [facility] Comment on above: Order Comment: Speci men Type: BLOOD SPECIMENOrdering Facility: [facility] Address: [address] [place] [address] Performed By: #### 5 7021-8 ####[facility] LABIA [id number] [place] [address] [place] Eosinophils (Bld) [#/Vol] 0.11 10*3/uL Normal <0.46 [facility] Comment on above: Order Comment: Speci men Type: BLOOD SPECIMENOrdering Facility: [facility] Address: [address] [place] [address] Performed By: #### 5 7021-8 ####[facility] LABCLIA [id number] [place] [address] [place] Eosinophils/100 WBC (Bld) 1.2 % Normal [facility] Comment on above: Order Comment: Speci men Type: BLOOD SPECIMENOrdering Facility: [facility] Address: [address] [place] [address] Performed By: #### 5 7021-8 ####[facility] LABCLIA [id number] [place] [address] [place] Erythrocyte distribution width (RBC) [Ratio] 15.5 % High 11.5-15.0 [facility] Comment on above: Order Comment: Speci men Type: BLOOD SPECIMENOrdering Facility: [facility] Address: [address] [place] [address] Performed By: #### 5 7021-8 ####[facility] LABIA [id number] [place] [address] [place] Hematocrit (Bld) [Volume fraction] 42.9 % Normal 39.0-51.0 [facility] Comment on above: Order Comment: Speci men Type: BLOOD SPECIMENOrdering Facility: [facility] Address: [address] [place] [address] Performed By: #### 5 7021-8 ####[facility] LABCLIA [id number] [place] [address] [place] Hemoglobin (Bld) [Mass/Vol] 13.7 g/dL Normal 13.0-17.0 [facility] Comment on above: Order Comment: Speci men Type: BLOOD SPECIMENOrdering Facility: [facility] Address: [address] [place] [address] Performed By: #### 5 7021-8 ####[facility] LABIA [id number] [place] [id number] [address] [place] Immature granulocytes (Bld) [#/Vol] 0.04 10*3/uL Normal <0.10 [facility] Comment on above: Order Comment: Speci men Type: BLOOD SPECIMENOrdering Facility: [facility] Address: [address] [place] [address] Performed By: #### 5 7021-8 ####[facility] LABCLIA [id number] [place] [address] [place] Immature granulocytes/100 WBC (Bld) 0.4 % Normal [facility] Comment on above: Order Comment: Speci men Type: BLOOD SPECIMENOrdering Facility: [facility] Address: [address] [place] [address] Performed By: #### 5 7021-8 ####[facility] LABCLIA [id number] [place] [address] [place] Lymphocytes (Bld) [#/Vol] 2.96 10*3/uL Normal 1.00-4.00 [facility] Comment on above: Order Comment: Speci men Type: BLOOD SPECIMENOrdering Facility: [facility] Address: [address] [place] [address] Performed By: #### 5 7021-8 ####[facility] LABCLIA [id number] [place] [address] [place] Lymphocytes/100 WBC (Bld) 31.0 % Normal [facility] Comment on above: Order Comment: Speci men Type: BLOOD SPECIMENOrdering Facility: [facility] Address: [address] [place] [address] Performed By: #### 5 7021-8 ####[facility] LABCLIA [id number] [place] [address] [place] MCH (RBC) [Entitic mass] 32.1 pg Normal 26.0-34.0 [facility] Comment on above: Order Comment: Speci men Type: BLOOD SPECIMENOrdering Facility: [facility] Address: [address] [place] [address] Performed By: #### 5 7021-8 ####[facility] LABCLIA [id number] [place] [address] [place] MCHC (RBC) [Mass/Vol] 31.9 g/dL Normal 30.5-36.0 [facility] Comment on above: Order Comment: Speci men Type: BLOOD SPECIMENOrdering Facility: [facility] Address: [address] [place] [address] Performed By: #### 5 7021-8 ####[facility] LABIA [id number] [place] [address] [place] MCV (RBC) [Entitic vol] 100.5 fL High 80.0-100.0 C [facility] Comment on above: Order Comment: Speci men Type: BLOOD SPECIMENOrdering Facility: [facility] Address: [address] [place] [address] Performed By: #### 5 7021-8 ####[facility] LABIA [id number] [place] [address] [place] Monocytes (Bld) [#/Vol] 0.59 10*3/uL Normal <0.87 [facility] Comment on above: Order Comment: Speci men Type: BLOOD SPECIMENOrdering Facility: [facility] Address: [address] [place] [address] Performed By: #### 5 7021-8 ####[facility] LABCLIA [id number] [place] [address] [place] Monocytes/100 WBC (Bld) 6.2 % Normal C [facility] Comment on above: Order Comment: Speci men Type: BLOOD SPECIMENOrdering Facility: [facility] Address: [address] [place] [address] Performed By: #### 5 7021-8 ####[facility] LABCLIA [id number] [place] [address] [place] Neutrophils (Bld) [#/Vol] 5.83 10*3/uL Normal 1.45-7.50 [facility] Comment on above: Order Comment: Speci men Type: BLOOD SPECIMENOrdering Facility: [facility] Address: [address] [place] [address] Performed By: #### 5 7021-8 ####[facility] LABCLIA [id number] [place] [address] [place] Neutrophils/100 WBC (Bld) 60.9 % Normal [facility] Comment on above: Order Comment: Speci men Type: BLOOD SPECIMENOrdering Facility: [facility] Address: [address] [place] [address] Performed By: #### 5 7021-8 ####[facility] LABCLIA [id number] [place] [address] [place] Nucleated RBC (Bld) [#/Vol] 10*3/uL Normal <0.01 [facility] Comment on above: Order Comment: Speci men Type: BLOOD SPECIMENOrdering Facility: [facility] Address: [address] [place] [address] Performed By: #### 5 7021-8 ####[facility] LABCLIA [id number] [place] [address] [place] Nucleated RBC/100 WBC (Bld) [Ratio] 0.0 /100 WBC Normal [facility] Comment on above: Order Comment: Speci men Type: BLOOD SPECIMENOrdering Facility: [facility] Address: [address] [place] [address] Performed By: #### 5 7021-8 ####[facility] LABCLIA [id number] [place] [address] [place] Platelet mean volume (Bld) [Entitic vol] 10.7 fL Normal 9.0-12.7 [facility] Comment on above: Order Comment: Speci men Type: BLOOD SPECIMENOrdering Facility: [facility] Address: [address] [place] [address] Performed By: #### 5 7021-8 ####[facility] LABIA [id number] [place] [address] [place] Platelets (Bld) [#/Vol] 170 10*3/uL Normal 150-400 [facility] Comment on above: Order Comment: Speci men Type: BLOOD SPECIMENOrdering Facility: [facility] Address: [address] [place] [address] Performed By: #### 5 7021-8 ####[facility] LABIA [id number] [place] [address] [place] RBC (Bld) [#/Vol] 4.27 10*6/uL Normal 4.20-6.00 [facility] Comment on above: Order Comment: Speci men Type: BLOOD SPECIMENOrdering Facility: [facility] Address: [address] [place] [address] Performed By: #### 5 7021-8 ####[facility] LABIA [id number] [place] [address] [place] WBC (Bld) [#/Vol] 9.56 10*3/uL Normal 3.70-11.00 [facility] Comment on above: Order Comment: Speci men Type: BLOOD SPECIMENOrdering Facility: [facility] Address: [address] [place] [address] Performed By: #### 5 7021-8 ####[facility] LABIA [id number] [address] [place] CNOVon 11-13-2024 CNOV Office Visit (FAMPWS ) MICHAEL MULLINS ([id number]) 1940 M Date Time Provider Department 11/13/24 [...] (left bundle branch block) 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 Normal [facility] Comprehensive metabolic 2000 panelon 11-13-2024 Albumin [Mass/Vol] 4.2 g/dL Normal 3.9-4.9 [facility] Comment on above: Order Comment: Speci men Type: BLOOD SPECIMENOrdering Facility: [facility] Address: [address] [place] [address] Performed By: #### 2 4323-8, LIPNF, 3083-1 ####[facility] LABCLIA [id number] [place] [address] [place] ALP [Catalytic activity/Vol] 115 U/L High 38-113 [facility] Comment on above: Order Comment: Speci men Type: BLOOD SPECIMENOrdering Facility: [facility] Address: [address] [place] [address] Performed By: #### 2 4323-8, LIPNF, 3083-1 ####[facility] LABCLIA [id number] [place] [address] [place] ALT [Catalytic activity/Vol] 24 U/L Normal 10-54 [facility] Comment on above: Order Comment: Speci men Type: BLOOD SPECIMENOrdering Facility: [facility] Address: [address] [place] [address] Performed By: #### 2 4323-8, LIPNF, 308-1 ####[facility] LABCLIA [id number] [place] [address] [place] Anion gap [Moles/Vol] 15 mmol/L Normal 8-15 [facility] Comment on above: Order Comment: Speci men Type: BLOOD SPECIMENOrdering Facility: [facility] Address: [address] [place] [address] Performed By: #### 2 4323-8, LIPNF, 3083-1 ####[facility] LABCLIA [id number] [place] [address] [place] AST [Catalytic activity/Vol] 39 U/L Normal 14-40 [facility] Comment on above: Order Comment: Speci men Type: BLOOD SPECIMENOrdering Facility: [facility] Address: [address] [place] [address] Performed By: #### 2 4323-8, LIPNF, 3083-1 ####[facility] LABCLIA [id number] [place] [address] [place] Bilirubin [Mass/Vol] 0.3 mg/dL Normal 0.2-1.3 [facility] Comment on above: Order Comment: Speci men Type: BLOOD SPECIMENOrdering Facility: [facility] Address: [address] [place] [address] Performed By: #### 2 4323-8, LIPNF, 3083-1 ####[facility] LABCLIA [id number] [place] [address] [place] Calcium [Mass/Vol] 9.3 mg/dL Normal 8.5-10.2 [facility] Comment on above: Order Comment: Speci men Type: BLOOD SPECIMENOrdering Facility: [facility] Address: [address] [place] [address] Performed By: #### 2 4323-8, LIPNF, 308-1 ####[facility] LABCLIA [id number] [place] [address] [place] Chloride [Moles/Vol] 107 mmol/L Normal 98-107 [facility] Comment on above: Order Comment: Speci men Type: BLOOD SPECIMENOrdering Facility: [facility] Address: [address] [place] [address] Performed By: #### 2 4323-8, LIPNF, 3084-1 ####[facility] LABCLIA [id number] [place] [address] [place] CO2 [Moles/Vol] 21 mmol/L Low 22-30 [facility] Comment on above: Order Comment: Speci men Type: BLOOD SPECIMENOrdering Facility: [facility] Address: [address] [place] [address] Performed By: #### 2 4323-8, LIPNF, 3084-1 ####[facility] LABCLIA [id number] [place] [address] [place] Creatinine [Mass/Vol] 1.84 mg/dL High 0.73-1.22 [facility] Comment on above: Order Comment: Speci men Type: BLOOD SPECIMENOrdering Facility: [facility] Address: [address] [place] [address] Performed By: #### 2 4323-8, LIPNF, 3084-1 ####[facility] LABCLIA [id number] [place] [address] [place] Creatinine and Glomerular filtration rate.predicted panel (S/P/Bld) 36 mL/min/1.73m??? Low >=60 [facility] Comment on above: Order Comment: Speci men Type: BLOOD SPECIMENOrdering Facility: [facility] Address: [address] [place] [address] Result Comment: Prachi mated Glomerular Filtration Rate [...] Performed By: #### 2 4323-8, LIPJULIAN, 3083-1 ####[facility] LABCLIA [id number] [place] [address] [place] Glucose [Mass/Vol] 87 mg/dL Normal 74-99 [facility] Comment on above: Order Comment: Speci men Type: BLOOD SPECIMENOrdering Facility: [facility] Address: [address] [place] [address] Result Comment: The [place] [employer] (ADA) provides guidance for cutoff [...] Standards of Medical Care in Diabetes 2016, [place] [employer]. Diabetes Care. 2016.39(Suppl 1). Performed By: #### 2 4323-8, ANH, 3083-1 ####[facility] LABCLIA [id number] [place] [address] [place] Potassium [Moles/Vol] 5.0 mmol/L Normal 3.7-5.1 [facility] Comment on above: Order Comment: Speci men Type: BLOOD SPECIMENOrdering Facility: [facility] Address: [address] [place] [address] Performed By: #### 2 4323-8, ANH, 3083-1 ####[facility] LABIA [id number] [place] [address] [place] Protein [Mass/Vol] 6.7 g/dL Normal 6.3-8.0 [facility] [facility] Comment on above: Order Comment: Speci men Type: BLOOD SPECIMENOrdering Facility: [facility] Address: [address] [place] [address] Performed By: #### 2 4323-8, LIPNF, 308-1 ####[facility] LABIA [id number] [place] [address] [place] Sodium [Moles/Vol] 143 mmol/L Normal 136-144 [facility] Comment on above: Order Comment: Speci men Type: BLOOD SPECIMENOrdering Facility: [facility] Address: [address] [place] [address] Performed By: #### 2 4323-8, LIPNF, 3083-1 ####[facility] LABIA [id number] [place] [address] [place] Urea nitrogen [Mass/Vol] 37 mg/dL High 9-24 [facility] Comment on above: Order Comment: Speci men Type: BLOOD SPECIMENOrdering Facility: [facility] Address: [address] [place] [address] Performed By: #### 2 4323-8, LIPNF, 3083-1 ####[facility] LABIA [id number] [place] [address] [place] HbA1c (Bld)on 11-13-2024 Average glucose Estimated from glycated hemoglobin (Bld) [Mass/Vol] 111 mg/dL Normal [facility] Comment on above: Order Comment: Speci men Type: BLOOD SPECIMENOrdering Facility: [facility] Address: [address] [place] [address] Result Comment: eAG: (Estimated average glucose) is a calculated value from HgbA1c and is payroll representative of the average blood glucose level in the last 2-3 month period. Performed By: #### 5 5454-3 ####[facility] LABIA [id number] [place] [address] [place] HbA1c (Bld) [Mass fraction] 5.5 % Normal 4.3-5.6 [facility] Comment on above: Order Comment: Speci men Type: BLOOD SPECIMENOrdering Facility: [facility] Address: [address] [place] [address] Result Comment: Amer ican Diabetes Association guidelines indicate that patients with HgbA1c in the range 5.7-6.4% are at increased risk for development of diabetes, and intervention by lifestyle modification may be beneficial. HgbA1c greater or equal to 6.5% is considered diagnostic of diabetes. Performed By: #### 5 5454-3 ####[facility] LABCLIA [id number] [place] [address] [place] LIPID PANEL, NONFASTINGon Cholesterol [Mass/Vol] 135 mg/dL Normal <200 [facility] Comment on above: Order Comment: Speci men Type: BLOOD SPECIMENOrdering Facility: [facility] Address: [address] [place] [address] Result Comment: <200 mg/dL, Desirable 200-239 mg/dL, Borderline high >239 mg/dL, High Performed By: #### 2 4323-8, LIPNF, 3084-1 ####[facility] LABCLIA [id number] [place] [address] [place] HDL CHOLESTEROL, NF 65 mg/dL Normal >39 [facility] Comment on above: Order Comment: Speci men Type: BLOOD SPECIMENOrdering Facility: [facility] Address: [address] [place] [address] Result Comment: 40-5 9 mg/dL, Acceptable >59 mg/dL, High: Negative risk factor for coronary heart disease <40 mg/dL, Low: Positive risk factor for coronary heart disease Performed By: #### 2 4323-8, LIPNF, 3084-1 ####[facility] LABIA [id number] [place] [address] [place] LDL CHOLESTEROL, NF 57 mg/dL Normal <100 [facility] Comment on above: Order Comment: Speci men Type: BLOOD SPECIMENOrdering Facility: [facility] Address: [address] [place] [address] Result Comment: <100 mg/dL, Optimal 100-129 mg/dL, Near optimal/above optimal 130-159 mg/dL, Borderline high 160-189 mg/dL, High >189 mg/dL, Very high Secondary prevention optimal LDL Cholesterol levels are recommended to be < 70 mg/dL Performed By: #### 2 4323-8, LIPNF, 3084-1 ####[facility] LABCLIA [id number] [address] LDL/HDL RATIO, NF 0.88 mg/dL Normal <2.54 [facility] Comment on above: Order Comment: Speci men Type: BLOOD SPECIMENOrdering Facility: [facility] Address: [address] [place] [address] Result Comment: Refe rence: 1. National Cholesterol Education Program ATP III Guideline At-A-Glance Quick Desk Reference: National Heart, Lung, and Blood [place]. National Institutes of Health. 2001: NIH Publication No. 01-3305. 2. An International Atherosclerosis Society position paper: global recommendations for the management of dyslipidemia: executive summary, Atherosclerosis. 2014: 232(2):410-413. Performed By: #### 2 4323-8, LIPNF, 3083-1 ####[facility] LABCLIA [id number] [address] [place] NON HDL CHOL, NF 70 mg/dL Normal <130 [facility] Comment on above: Order Comment: Darcie men Type: BLOOD SPECIMENOrdering Facility: [facility] Address: [address] [place] [address] Result Comment: <130 mg/dL, Optimal 130-159 mg/dL, Near optimal/above optimal 160-189 mg/dL, Borderline high 190-219 mg/dL, High >219 mg/dL, Very high Secondary prevention optimal non HDL Cholesterol levels are recommended to be <100 mg/dL Performed By: #### 2 4323-8, LIPNF, 4-1 ####[facility] LABCLIA [id number] [address] [place] T CHOL/HDL RATIO NF 2.08 mg/dL Normal <5.10 [facility] Comment on above: Order Comment: Speci men Type: BLOOD SPECIMENOrdering Facility: [facility] Address: [address] [place] [address] Performed By: #### 2 4323-8, LIPNF, 3084-1 ####[facility] LABCLIA [id number] [place] [address] [place] TRIGLYCERIDES, NF 63 mg/dL Normal <150 [facility] Comment on above: Order Comment: Speci men Type: BLOOD SPECIMENOrdering Facility: [facility] Address: [address] [place] [address] Result Comment: <150 mg/dL, Normal 150-199 mg/dL, Borderline high 200-499 mg/dL, High >499 mg/dL, Very high Performed By: #### 2 4323-8, LIPNF, 3083-1 ####[facility] LABCLIA [id number] [place] [address] [place] VLDL CHOLESTEROL, NF 13 mg/dL Normal <30 [facility] Comment on above: Order Comment: Speci men Type: BLOOD SPECIMENOrdering Facility: [facility] Address: [address] [place] [address] Performed By: #### 2 4323-8, LIPNF, 3084-1 ####[facility] LABCLIA [id number] [place] [address] [place] Urate SerPl-mCncon 4 Urate [Mass/Vol] 3.4 mg/dL Low 4.0-8.1 [facility] Comment on above: Order Comment: Speci men Type: BLOOD SPECIMENOrdering Facility: [facility] Address: [address] [place] [address] Performed By: #### 2 4323-8, LIPNF, 3084-1 ####[facility] LABCLIA [id number] [place] [id number] [place] [facility] CNOVon 10-02-2024 CNOV Office Visit (AKURFL ) MICHAEL MULLINS Gena ([id number]) 1940 M Date Time Provider Department 10/02/24 [...] Proscar 5 mg June 29, 2015-seen by [facility] urology- 1 year follow-up previous prostate biopsy 1 year ago was negative. Feels fantastic. No nausea vomiting diarrhea fevers chills or weight loss. No blood pressures consistent with blood in urine. His P's XE Edita 4.2.8. Happy with his clinical status. I reviewed his previous negative biopsy. RADS: May 23, [id number] nign 2023-Cystoscopy/ultras ound prostate-volume 37.7 cc without [...] learn intermittent catheterization May 10, 2014-ultrasound/biopsy of prostate-[facility] urology--- Volume 57 cc Creatinine Date Value Ref Range Status 12/26/2023 3.41 ( (more content not included)... Normal [facility] UA DIP, URINE (POC)on 2023 BILIRUBIN UA (POCT) Negative Negative [facility] CLARITY UA (POCT) Clear [facility] COLOR UA (POCT) Yellow [facility] GLUCOSE UA (POCT) Negative Negative mg/dL [facility] Hemoglobin Ql (U) Negative Negative [facility] Interpretation and review of laboratory results Abnormal [facility] KETONE UA (POCT) Negative Negative mg/dL [facility] LEUKOCYTES UA (POCT) Trace Abnormal Negative [facility] NITRITE UA (POCT) Negative Negative [facility] PH UA (POCT) 5.5 4.5 - 8.0 [facility] Protein Ql (U) 100 mg/dL Abnormal Negative [facility] SPECIFIC GRAVITY UA (POCT) 1.025 1.005 - 1.030 [facility] UROBILINOGEN UA (POCT) 0.2 Jocelyn l E.U./dL [facility] Location:[facility], [address] [place] [address], [place], [place], [address] [place] [address] [facility] US MSR POST-VOID RESID URINE on 10-02-2024 PVR-5 Pérez Doran MA [facility] CNOVon 09-28-2024 CNOV Office Visit (PODIWS ) MICHAEL MULLINS ([id number]) 1940 M Date Time Provider Department 09/28/24 [...] Lori Goodman DPM Referring Provider: LORI GOODMAN [[id number]] Allergies As of Date: 09/28/2024 Noted Allergy [...] by mouth every hour as needed. - deqqzmm-vdekapwjo-ssqr min D3 (CALCIUM 500+D) 500 mg-5 mcg [...] 10/18/2009 Arteri (more content not included)... Normal [facility] Juan Miguel 06-30-2024 [facility]HAEL [facility]ULL[facility] ([id number]) 1940 M Date Time Provider Department 06/30/24 ANTONY ESPINOZA [facility] During your visit today, we recorded the following information about you: Skye Arnold 06/30/2024 2:19 PM Signed Patient requesting medication that is : losartan (COZAAR) 50 mg tablet ( Last office visit: 05-20-24 Future appt scheduled: No PHARMACY: [facility] Allergies As of Date: 06/30/2024 Noted [...] by mouth every hour as needed. - rbsbkdz-kzttfzyye-esuo min D3 (CALCIUM 500+D) 500 mg-5 mcg [...] Encounter Status:Closed by ANTONY ESPINOZA on 06/30/24 [facility] CNOVon 05-26-2024 CNOV Office Visit (PODIWS ) MICHAEL MULLINS ([id number]) 1940 M Date Time Provider Department 05/26/24 [...] Lori Goodman DPM Referring Provider: LORI GOODMAN [[id number]] Allergies As of Date: 05/26/2024 Noted Allergy [...] by mouth every hour as needed. - ciurvit-uezilahrc-xdba min D3 (CALCIUM 500+D) 500 mg-5 mcg [...] hypertension [I10] (more content not included)... Normal [facility] CBC W/Diff, Automatedon 06-2 -2023 Absolute Lymph 2.24 X10 3/uL Normal 0.83-4.51 [facility] Comment on above: Performed By: #### L 504.2610, L503.6550, L500.4050, L503.6030, L100.0100 #### [facility] [address] [place], [address] Absolute Neut 5.9 X10 3/uL Normal 2.0-7.7 [facility] Comment on above: Performed By: #### L 504.2610, L503.6550, L500.4050, L503.6030, L100.0100 #### [facility] [address] [place], [address] Basophils/100 WBC (Bld) 0.6 % Normal 0-1 [facility] Comment on above: Performed By: #### L 504.2610, L503.6550, L500.4050, L503.6030, L100.0100 #### [facility] [address] [place], [address] Eosinophils/100 WBC (Bld) 2.1 % Normal 0-5 [facility] Comment on above: Performed By: #### L 504.2610, L503.6550, L500.4050, L503.6030, L100.0100 #### [facility] [address] [place], [address] Erythrocyte distribution width (RBC) [Ratio] 14.9 % High 11.6-14.6 [facility] Comment on above: Performed By: #### L 504.2610, L503.6550, L500.4050, L503.6030, L100.0100 #### [facility] [address] [place], [address] Hematocrit (Bld) [Volume fraction] 36.5 % Low 40-54 [facility] Comment on above: Performed By: #### L 504.2610, L503.6550, L500.4050, L503.6030, L100.0100 #### [facility] [address] [place], [address] Hemoglobin (Bld) [Mass/Vol] 11.7 g/dL Low 13.0-16.5 [facility] Comment on above: Performed By: #### L 504.2610, L503.6550, L500.4050, L503.6030, L100.0100 #### [facility] [address] [place], [address] IG% 0.200 Normal 0.0-0.9 [facility] Comment on above: Result Comment: IG% - Immature Granulocytes (promyelocytes, myelocytes and metamyelocytes) > 1% indicates that a LEFT SHIFT is Present. Performed By: #### L 504.2610, L503.6550, L500.4050, L503.6030, L100.0100 #### [facility] [address] [place], [address] Lymphocytes/100 WBC (Bld) 25.0 % Normal 19-41 [facility] Comment on above: Performed By: #### L 504.2610, L503.6550, L500.4050, L503.6030, L100.0100 #### [facility] [address] [place], [address] MCH (RBC) [Entitic mass] 32.1 pg High 27.0-32.0 [facility] Comment on above: Performed By: #### L 504.2610, L503.6550, L500.4050, L503.6030, L100.0100 #### [facility] [address] [place], [address] MCHC (RBC) [Mass/Vol] 32.1 g/dL Normal 32-[address] [facility] Comment on above: Performed By: #### L 504.2610, L503.6550, L500.4050, L503.6030, L100.0100 #### [facility] [address] [place], [address] MCV (RBC) [Entitic vol] 100.0 fL High 80-94 [facility] Comment on above: Performed By: #### L 504.2610, L503.6550, L500.4050, L503.6030, L100.0100 #### [facility] [address] [place], [address] Monocytes/100 WBC (Bld) 6.1 % Normal 0-10 [facility] Comment on above: Performed By: #### L 504.2610, L503.6550, L500.4050, L503.6030, L100.0100 #### [facility] [address] [place], [address] Neutrophils/100 WBC (Bld) 66.0 % Normal 47-70 [facility] Comment on above: Performed By: #### L 504.2610, L503.6550, L500.4050, L503.6030, L100.0100 #### [facility] [address] [place], [address] Nucleated RBC (Bld) [#/Vol] 0 10*3/uL Normal 0-5 [facility] Comment on above: Performed By: #### L 504.2610, L503.6550, L500.4050, L503.6030, L100.0100 #### [facility] [address] [place], [address] Platelet mean volume (Bld) [Entitic vol] 10.9 fL Normal 6.2-12.0 [facility] Comment on above: Performed By: #### L 504.2610, L503.6550, L500.4050, L503.6030, L100.0100 #### [facility] [address] [place], [address] Platelets (Bld) [#/Vol] 188 10*3/uL Normal 150-450 [facility] Comment on above: Performed By: #### L 504.2610, L503.6550, L500.4050, L503.6030, L100.0100 #### [facility] [address] [place], [address] RBC (Bld) [#/Vol] 3.65 10*6/uL Low 4.6-6.2 [facility] Comment on above: Performed By: #### L 504.2610, L503.6550, L500.4050, L503.6030, L100.0100 #### [facility] [address] [place], [address] RDW SD 54.5 fl High 35.1-43.9 [facility] Comment on above: Performed By: #### L 504.2610, L503.6550, L500.4050, L503.6030, L100.0100 #### [facility] [address] [place], [address] WBC (Bld) [#/Vol] 9.0 10*3/uL Normal 4.4-11.0 [facility] Comment on above: Performed By: #### L 504.2610, L503.6550, L500.4050, L503.6030, L100.0100 #### [facility] [address] [place], [address] Comprehensive Metabolic Prof [facility] 05-12-2024 Albumin [Mass/Vol] 3.7 g/dL Normal 3.2-5.0 [facility] Comment on above: Order Comment: 1 Performed By: #### L 504.2610, L503.6550, L500.4050, L503.6030, L100.0100 #### [facility] [address] [place], [address] Albumin/Globulin [Mass ratio] 1.3 {ratio} Normal 0.9-2.4 [facility] Comment on above: Order Comment: 1 Performed By: #### L 504.2610, L503.6550, L500.4050, L503.6030, L100.0100 #### [facility] [address] [place], [address] ALK P 139 U/L High 45-117 [facility] Comment on above: Order Comment: 1 Performed By: #### L 504.2610, L503.6550, L500.4050, L503.6030, L100.0100 #### [facility] [address] [place], [address] ALT [Catalytic activity/Vol] 46 U/L Normal 16-61 [facility] Comment on above: Order Comment: 1 Performed By: #### L 504.2610, L503.6550, L500.4050, L503.6030, L100.0100 #### [facility] [address] [place], [address] AST [Catalytic activity/Vol] 49 U/L High 15-37 [facility] Comment on above: Order Comment: 1 Performed By: #### L 504.2610, L503.6550, L500.4050, L503.6030, L100.0100 #### [facility] [address] [place], [address] Bilirubin [Mass/Vol] 0.60 mg/dL Normal 0.20-1.00 [facility] Comment on above: Order Comment: 1 Result Comment: For patients on eltrombopag therapy, use of Dimension [place] TBIL is not recommended. Performed By: #### L 504.2610, L503.6550, L500.4050, L503.6030, L100.0100 #### [facility] [address] [place], [address] BUN/CRE 16.1 RATIO Normal 10-20 [facility] Comment on above: Order Comment: 1 Performed By: #### L 504.2610, L503.6550, L500.4050, L503.6030, L100.0100 #### [facility] [address] [place], [address] CA,Total 8.5 mg/dL Normal 8.5-10.1 [facility] Comment on above: Order Comment: 1 Performed By: #### L 504.2610, L503.6550, L500.4050, L503.6030, L100.0100 #### [facility] [address] [place], [address] Chloride [Moles/Vol] 112 mmol/L High 98-107 [facility] Comment on above: Order Comment: 1 Performed By: #### L 504.2610, L503.6550, L500.4050, L503.6030, L100.0100 #### [facility] [address] [place], [address] CO2 [Moles/Vol] 26.0 mmol/L Normal 21.0-32.0 [facility] Comment on above: Order Comment: 1 Performed By: #### L 504.2610, L503.6550, L500.4050, L503.6030, L100.0100 #### [facility] [address] [place], [address] Creatinine [Mass/Vol] 1.86 mg/dL High 0.70-1.[address] [facility] Comment on above: Order Comment: 1 Result Comment: The validity of the calculated GFR GFRAA in patients over 70 years has not been determined. Clinical correlation is essential. Performed By: #### L 504.2610, L503.6550, L500.4050, L503.6030, L100.0100 #### [facility] [address] [place], [address] ECRCL 23.97 ml/min Normal [facility] Comment on above: Order Comment: 1 Performed By: #### L 504.2610, L503.6550, L500.4050, L503.6030, L100.0100 #### [facility] [address] [place], [address] EST GFR - AA 45 mL/min Low >60 [facility] Comment on above: Order Comment: 1 Result Comment: Afri can [place] GFR Calc Performed By: #### L 504.2610, L503.6550, L500.4050, L503.6030, L100.0100 #### [facility] [address] [place], [address] GAP 2 Low 5-15 [facility] Comment on above: Order Comment: 1 Performed By: #### L 504.2610, L503.6550, L500.4050, L503.6030, L100.0100 #### [facility] [address] [place], [address] GFR/1.73 sq M.predicted among non-blacks MDRD (S/P/Bld) [Vol rate/Area] 37 mL/min/{1.73_m2} Low >60 [facility] Comment on above: Order Comment: 1 Result Comment: Non- GFR Calc Performed By: #### L 504.2610, L503.6550, L500.4050, L503.6030, L100.0100 #### [facility] [address] [place], [address] Globulin (S) [Mass/Vol] 2.9 g/dL Normal 2.2-4.2 [facility] Comment on above: Order Comment: 1 Performed By: #### L 504.2610, L503.6550, L500.4050, L503.6030, L100.0100 #### [facility] [address] [place], [address] Glucose [Mass/Vol] 147 mg/dL High 74-106 [facility] Comment on above: Order Comment: 1 Result Comment: Fast ing Glucose result greater than or equal to 126 mg/dL suggests DIABETES MELLITUS per A.D.A. criteria. Performed By: #### L 504.2610, L503.6550, L500.4050, L503.6030, L100.0100 #### [facility] [address] [place], [address] Potassium [Moles/Vol] 4.7 mmol/L Normal 3.5-5.[address] [facility] Comment on above: Order Comment: 1 Performed By: #### L 504.2610, L503.6550, L500.4050, L503.6030, L100.0100 #### [facility] [address] [place], [address] Sodium [Moles/Vol] 140 mmol/L Normal 136-145 [facility] Comment on above: Order Comment: 1 Performed By: #### L 504.2610, L503.6550, L500.4050, L503.6030, L100.0100 #### [facility] [address] [place], [address] T PROT 6.6 g/dL Normal 6.4-8.2 [facility] Comment on above: Order Comment: 1 Performed By: #### L 504.2610, L503.6550, L500.4050, L503.6030, L100.0100 #### [facility] [address] [place], [address] Urea nitrogen [Mass/Vol] 30 mg/dL High 7-18 [facility] Comment on above: Order Comment: 1 Performed By: #### L 504.2610, L503.6550, L500.4050, L503.6030, L100.0100 #### [facility] [address] [place], [address] Ferritinon 05-12-2024 Ferritin [Mass/Vol] 86 ng/mL Normal 26-388 [facility] Comment on above: Order Comment: 1 Performed By: #### L 504.2610, L503.6550, L500.4050, L503.6030, L100.0100 #### [facility] [address] [place], [address] Iron+Iron Binding Capacityon 05-12-2024 Iron [Mass/Vol] 75 ug/dL Normal 65-175 [facility] Comment on above: Order Comment: 1 Performed By: #### L 504.2610, L503.6550, L500.4050, L503.6030, L100.0100 #### [facility] [address] [place], [address] IRON SATURATION 27.4 Normal 15.0-55.0 [facility] Comment on above: Order Comment: 1 Performed By: #### L 504.2610, L503.6550, L500.4050, L503.6030, L100.0100 #### [facility] [address] [place], [address] TIBC 274 ug/dL Normal 250-450 [facility] Comment on above: Order Comment: 1 Performed By: #### L 504.2610, L503.6550, L500.4050, L503.6030, L100.0100 #### [facility] [address] [place], [address] LDHon 05-12-2024 LDH 204 U/L Normal 87-241 [facility] Comment on above: Order Comment: 1 Performed By: #### L 504.2610, L503.6550, L500.4050, L503.6030, L100.0100 #### [facility] [address] [place], [address] Oncology Visit Reporton 04-19 Oncology Visit Report [facility] [facility] [address] [place] [address] OFFICE VISIT Date of Service: 05/12/24 1121 MR#: [id number] Acct: [id number] Name: MICHAEL MULLINS Rep #: [id number] : 1940 From: Dedrick Andrade MD Age/Sex: 84/M Location: [facility] [place] Status: Signed HPI Subjective Date of Service 05/12/24 Chief Complaint F/u for HCL History of Present Illness 84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 Relapsed in 1984 and received Pentostatin on an ECOG protocol. Since that time, he attained remission and has remained in remission ever since. Had R hip fx and was repaired on 08/20/2018. He is on observation, comes for follow up. Feels well. [facility] Medical History COVID-19 Former smoker Degenerative disc [...] Risk Screenin (more content not included)... Normal [facility] 12-23-2023 [facility] Telephone (UROLAE) MICHAEL MULLINS ([id number]) 1940 M Date Time Provider Department 12/23/23 [...] is allowed to stop it Niya Doran Pediatric Nurse Practitioner Allergies As of Date: 12/23/2023 Noted Allergy [...] by mouth every hour as needed. - oygtspo-mjypqsfca-kvuu min D3 (CALCIUM 500+D) 500 mg-5 mcg [...] Status:Closed by BEHZAD CAGE on 12/23/23 Normal [facility] CNOVon 10-07-2023 CNOV Office Visit (AKURFL ) MICHAEL MULLINS ([id number]) 1940 M Date Time Provider Department 10/07/23 [...] Proscar 5 mg June 29, 2015-seen by [facility] urology- 1 year follow-up previous prostate biopsy 1 year ago was negative. Feels fantastic. No nausea vomiting diarrhea fevers chills or weight loss. No blood pressures consistent with blood in urine. His P's XE Edita 4.2.8. Happy with his clinical status. I reviewed his previous negative biopsy. RADS: May 23, [id number] nign 2023-Cystoscopy/ultras ound prostate-volume 37.7 cc without [...] learn intermittent catheterization May 10, 2014-ultrasound/biopsy of prostate-[facility] urology--- Volume 57 cc Creatinine Date Value [...] (no units) (more content not included)... Normal [facility] CBC W/Diff, Automatedon 06-2 Absolute Lymph 3.52 X10 3/uL Normal 0.83-4.51 [facility] Comment on above: Performed By: #### L 500.4050, L504.2610, L100.0100 #### [facility] [address] [place], [address] Absolute Neut 6.1 X10 3/uL Normal 2.0-7.7 [facility] Comment on above: Performed By: #### L 500.4050, L504.2610, L100.0100 #### [facility] [address] [place], [address] Basophils/100 WBC (Bld) 0.5 % Normal 0-1 [facility] Comment on above: Performed By: #### L 500.4050, L504.2610, L100.0100 #### [facility] [address] [place], [address] Eosinophils/100 WBC (Bld) 2.0 % Normal 0-5 [facility] Comment on above: Performed By: #### L 500.4050, L504.2610, L100.0100 #### [facility] [address] [place], [address] Erythrocyte distribution width (RBC) [Ratio] 15.6 % High 11.6-14.6 [facility] Comment on above: Performed By: #### L 500.4050, L504.2610, L100.0100 #### [facility] [address] [place], [address] Hematocrit (Bld) [Volume fraction] 36.9 % Low 40-54 [facility] Comment on above: Performed By: #### L 500.4050, L504.2610, L100.0100 #### [facility] [address] [place], [address] Hemoglobin (Bld) [Mass/Vol] 11.7 g/dL Low 13.0-16.5 [facility] Comment on above: Performed By: #### L 500.4050, L504.2610, L100.0100 #### [facility] [address] [place], [address] IG% 0.300 Normal 0.0-0.9 [facility] Comment on above: Result Comment: IG% - Immature Granulocytes (promyelocytes, myelocytes and metamyelocytes) > 1% indicates that a LEFT SHIFT is Present. Performed By: #### L 500.4050, L504.2610, L100.0100 #### [facility] [address] [place], [address] Lymphocytes/100 WBC (Bld) 32.7 % Normal 19-41 [facility] Comment on above: Performed By: #### L 500.4050, L504.2610, L100.0100 #### [facility] [address] [place], [address] MCH (RBC) [Entitic mass] 31.3 pg Normal 27.0-32.0 [facility] Comment on above: Performed By: #### L 500.4050, L504.2610, L100.0100 #### [facility] [address] [place], [address] MCHC (RBC) [Mass/Vol] 31.7 g/dL Low 32-[address] [facility] Comment on above: Performed By: #### L 500.4050, L504.2610, L100.0100 #### [facility] [address] [place], [address] MCV (RBC) [Entitic vol] 98.7 fL High 80-94 [facility] Comment on above: Performed By: #### L 500.4050, L504.2610, L100.0100 #### [facility] [address] [place], [address] Monocytes/100 WBC (Bld) 7.9 % Normal 0-10 [facility] Comment on above: Performed By: #### L 500.4050, L504.2610, L100.0100 #### [facility] [address] [place], [address] Neutrophils/100 WBC (Bld) 56.6 % Normal 47-70 [facility] Comment on above: Performed By: #### L 500.4050, L504.2610, L100.0100 #### [facility] [address] [place], [address] Nucleated RBC (Bld) [#/Vol] 0 10*3/uL Normal 0-5 [facility] Comment on above: Performed By: #### L 500.4050, L504.2610, L100.0100 #### [facility] [address] [place], [address] Platelet mean volume (Bld) [Entitic vol] 9.9 fL Normal 6.2-12.0 [facility] Comment on above: Performed By: #### L 500.4050, L504.2610, L100.0100 #### [facility] [address] [place], [address] Platelets (Bld) [#/Vol] 262 10*3/uL Normal 150-450 [facility] Comment on above: Performed By: #### L 500.4050, L504.2610, L100.0100 #### [facility] [address] [place], [address] RBC (Bld) [#/Vol] 3.74 10*6/uL Low 4.6-6.2 [facility] Comment on above: Performed By: #### L 500.4050, L504.2610, L100.0100 #### [facility] [address] [place], [address] RDW SD 55.9 fl High 35.1-43.9 [facility] Comment on above: Performed By: #### L 500.4050, L504.2610, L100.0100 #### [facility] [address] [place], [address] WBC (Bld) [#/Vol] 10.8 10*3/uL Normal 4.4-11.0 [facility] Comment on above: Performed By: #### L 500.4050, L504.2610, L100.0100 #### [facility] [address] [place], [address] Comprehensive Metabolic Prof ilon 05-14-2023 Albumin [Mass/Vol] 3.5 g/dL Normal 3.2-5.0 [facility] Comment on above: Order Comment: 1 Performed By: #### L 500.4050, L504.2610, L100.0100 #### [facility] [address] [place], [address] Albumin/Globulin [Mass ratio] 1.0 {ratio} Normal 0.9-2.4 [facility] Comment on above: Order Comment: 1 Performed By: #### L 500.4050, L504.2610, L100.0100 #### [facility] [address] [place], [address] ALK P 139 U/L High 45-117 [facility] Comment on above: Order Comment: 1 Performed By: #### L 500.4050, L504.2610, L100.0100 #### [facility] [address] [place], [address] ALT [Catalytic activity/Vol] 23 U/L Normal 16-61 [facility] Comment on above: Order Comment: 1 Performed By: #### L 500.4050, L504.2610, L100.0100 #### [facility] [address] [place], [address] AST [Catalytic activity/Vol] 29 U/L Normal 15-37 [facility] Comment on above: Order Comment: 1 Performed By: #### L 500.4050, L504.2610, L100.0100 #### [facility] [address] [place], [address] Bilirubin [Mass/Vol] 0.50 mg/dL Normal 0.20-1.00 [facility] Comment on above: Order Comment: 1 Result Comment: For patients on eltrombopag therapy, use of Dimension [place] TBIL is not recommended. Performed By: #### L 500.4050, L504.2610, L100.0100 #### [facility] [address] [place], [address] BUN/CRE 15.8 RATIO Normal 10-20 [facility] Comment on above: Order Comment: 1 Performed By: #### L 500.4050, L504.2610, L100.0100 #### [facility] [address] [place], [address] CA,Total 8.8 mg/dL Normal 8.5-10.1 [facility] Comment on above: Order Comment: 1 Performed By: #### L 500.4050, L504.2610, L100.0100 #### [facility] [address] [place], [address] Chloride [Moles/Vol] 110 mmol/L High 98-107 [facility] Comment on above: Order Comment: 1 Performed By: #### L 500.4050, L504.2610, L100.0100 #### [facility] [address] [place], [address] CO2 [Moles/Vol] 25.0 mmol/L Normal 21.0-32.0 [facility] Comment on above: Order Comment: 1 Performed By: #### L 500.4050, L504.2610, L100.0100 #### [facility] [address] [place], [address] Creatinine [Mass/Vol] 1.46 mg/dL High 0.70-1.[address] [facility] Comment on above: Order Comment: 1 Result Comment: The validity of the calculated GFR GFRAA in patients over 70 years has not been determined. Clinical correlation is essential. Performed By: #### L 500.4050, L504.2610, L100.0100 #### [facility] [address] [place], [address] ECRCL 37.10 ml/min Normal [facility] Comment on above: Order Comment: 1 Performed By: #### L 500.4050, L504.2610, L100.0100 #### [facility] [address] [place], [address] EST GFR - AA 60 mL/min Normal >60 [facility] Comment on above: Order Comment: 1 Result Comment: Afri can [place] GFR Calc Performed By: #### L 500.4050, L504.2610, L100.0100 #### [facility] [address] [place], [address] GAP 5 Normal 5-15 [facility] Comment on above: Order Comment: 1 Performed By: #### L 500.4050, L504.2610, L100.0100 #### [facility] [address] [place], [address] GFR/1.73 sq M.predicted among non-blacks MDRD (S/P/Bld) [Vol rate/Area] 49 mL/min/{1.73_m2} Low >60 [facility] Comment on above: Order Comment: 1 Result Comment: Non- GFR Calc Performed By: #### L 500.4050, L504.2610, L100.0100 #### [facility] [address] [place], [address] Globulin (S) [Mass/Vol] 3.4 g/dL Normal 2.2-4.2 [facility] Comment on above: Order Comment: 1 Performed By: #### L 500.4050, L504.2610, L100.0100 #### [facility] [address] [place], [address] Glucose [Mass/Vol] 88 mg/dL Normal 74-106 [facility] Comment on above: Order Comment: 1 Performed By: #### L 500.4050, L504.2610, L100.0100 #### [facility] [address] [place], [address] Potassium [Moles/Vol] 4.5 mmol/L Normal 3.5-5.[address] [facility] Comment on above: Order Comment: 1 Performed By: #### L 500.4050, L504.2610, L100.0100 #### [facility] [address] [place], [address] Sodium [Moles/Vol] 140 mmol/L Normal 136-145 [facility] Comment on above: Order Comment: 1 Performed By: #### L 500.4050, L504.2610, L100.0100 #### [facility] [address] [place], [address] T PROT 6.9 g/dL Normal 6.4-8.2 [facility] Comment on above: Order Comment: 1 Performed By: #### L 500.4050, L504.2610, L100.0100 #### [facility] [address] [place], [address] Urea nitrogen [Mass/Vol] 23 mg/dL High 7-18 [facility] Comment on above: Order Comment: 1 Performed By: #### L 500.4050, L504.2610, L100.0100 #### [facility] [address] [place], [address] Ferritinon 05-14-2023 Ferritin [Mass/Vol] 28 ng/mL Normal 26-388 [facility] Comment on above: Order Comment: 1 Performed By: #### L 500.4050, L504.2610, L100.0100 #### [facility] [address] [place], [address] Iron+Iron Binding Capacityon 05-14-2023 Iron [Mass/Vol] 38 ug/dL Low 65-175 [facility] Comment on above: Order Comment: 1 Performed By: #### L 500.4050, L504.2610, L100.0100 #### [facility] [address] [place], [address] IRON SATURATION 11.7 Low 15.0-55.0 [facility] Comment on above: Order Comment: 1 Performed By: #### L 500.4050, L504.2610, L100.0100 #### [facility] [address] [place], [address] TIBC 326 ug/dL Normal 250-450 [facility] Comment on above: Order Comment: 1 Performed By: #### L 500.4050, L504.2610, L100.0100 #### [facility] [address] [place], [address] LDHon 05-14-2023 LDH 177 U/L Normal 87-241 [facility] Comment on above: Order Comment: 1 Performed By: #### L 500.4050, L504.2610, L100.0100 #### [facility] [address] [place], [address] Oncology Visit Reporton 04-19 Oncology Visit Report [facility] [facility] [address] 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 Relapsed in 1984 and received Pentostatin on an ECOG protocol. Since that time, he attained remission and has remained in remission ever since. Had R hip fx and was repaired on 08/20/2018. He is on observation, comes for follow up. Feels well. [facility] Medical History (Updated 05/14/23 @ 14:18 by [...] 97 Oxygen Delivery Method room air Intake Accounts Receivable Bookkeeper Required: No Accompanied by: Is patient in [...] PRN 0 (more content not included)... Normal [facility] US CYSTO/TRUS (POC) GUKI USE ONLYon 2023 [facility] COVID-19 virus antigen assay Ordered By: Dr. Griffiths on 03-08-2023 SARS-CoV-2 (COVID-19) Ag IA.rapid Ql (Resp) [facility] Glucose Glucometer (BldC) [M ass/Vol]Ordered By: Dr. Griffiths on 03-08-2023 Glucose [Mass/Vol] 136 mg/dL 74-106 [facility] Comment on above: MANAGEMENT OF PATIEN T CARE PER NURSING PROTOCOL Absolute lymphocyte countOrd ered By: Dr. Morgan on 03-06-2023 Lymphocytes Auto (Unsp spec) [#/Vol] 1.59 10*3/uL 0.83-4.51 [facility] Basophil percentageOrdered B y: Dr. Morgan on 03-06-2023 Basophils/100 WBC (Bld) 0.3 % 0-1 [facility] Bilirubin [Mass/Vol] 0.50 mg/dL 0.20-1.00 [facility] Comment on above: For patients on eltr ombopag therapy, use of Dimension [place] TBIL is not recommended. Chloride [Moles/Vol] 113 mmol/L 98-107 [facility] Eosinophils/100 WBC (Bld) 0.8 % 0-5 [facility] Glucose [Mass/Vol] 128 mg/dL 74-106 [facility] Comment on above: Fasting Glucose resu lt greater than or equal to 126 mg/dL suggests DIABETES MELLITUS per A.D.A. criteria. Neutrophils (Bld) [#/Vol] 9.0 10*3/uL 2.0-7.7 [facility] Neutrophils/100 WBC (Bld) 75.5 % 47-70 [facility] Potassium [Moles/Vol] 3.6 mmol/L 3.5-5.[address] [facility] Protein [Mass/Vol] 6.1 g/dL 6.4-8.2 [facility] Sodium [Moles/Vol] 140 mmol/L 136-145 [facility] WBC (Bld) [#/Vol] 12.0 10*3/uL 4.4-11.0 [facility] Basophil percentage 2.5 mg/dL 2.5-4.9 [facility] Blood erythrocytes count (nu mber/volume)Ordered By: Dr. Morgan on 03-06-2023 RBC (Bld) [#/Vol] 3.38 10*6/uL 4.6-6.2 [facility] Blood hemoglobin measurement (mass/volume)Ordered By: Dr. Morgan on 03-06-2023 Hemoglobin (Bld) [Mass/Vol] 10.6 g/dL 13.0-16.5 [facility] Blood lymphocytes/100 leukoc ytesOrdered By: Dr. Morgan on 03-06-2023 Lymphocytes/100 WBC (Bld) 13.3 % 19-41 [facility] Blood monocytes/100 leukocyt esOrdered By: Dr. Morgan on 03-06-2023 Monocytes/100 WBC (Bld) 9.7 % 0-10 [facility] Blood platelet mean volumeOr dered By: Dr. Morgan on 03-06-2023 Platelet mean volume (Bld) [Entitic vol] 11.1 fL 6.2-12.0 [facility] COVID-19 virus antigen assay Ordered By: Dr. Morgan on 03-06-2023 SARS-CoV-2 (COVID-19) Ag IA.rapid Ql (Resp) Not detected Not Detect [facility] Comment on above: Normal Reference Ran ge: [...] MCV (RBC) [Entitic vol] 97.6 fL 80-94 [facility] Hematocrit Auto (Bld) [Volum e fraction]Ordered By: Dr. Morgan on 03-06-2023 Hematocrit (Bld) [Volume fraction] 33.0 % 40-54 [facility] - Chemistry and C hemistry - challengeOrdered By: Dr. Morgan on 03-06-2023 ALP [Catalytic activity/Vol] 93 U/L 45-117 [facility] ALT [Catalytic activity/Vol] 31 U/L 16-61 [facility] CO2 [Moles/Vol] 27.0 mmol/L 21.0-32.0 [facility] Free T4 [Mass/Vol] 1.46 ng/dL 0.76-1.46 [facility] Globulin (S) [Mass/Vol] 3.5 g/dL 2.2-4.2 [facility] Urea nitrogen/Creatinine [Mass ratio] 19.7 mg/mg 10-20 [facility] Magnesium [Mass/Vol] 1.7 mg/dL 1.6-2.6 [facility] - Hematology and Cell countsOrdered By: Dr. Morgan on 03-06-2023 Erythrocyte distribution width (RBC) [Entitic vol] 54.5 fL 35.1-43.9 [facility] Erythrocyte distribution width (RBC) [Ratio] 15.2 % 11.6-14.6 [facility] Immature granulocytes/100 WBC (Bld) 0.400 % 0.0-0.9 [facility] Comment on above: IG% - Immature Granu locytes (promyelocytes, myelocytes and metamyelocytes) > 1% indicates that a LEFT SHIFT is Present. MCH (RBC) [Entitic mass] 31.4 pg 27.0-32.0 [facility] Nucleated RBC/100 WBC (Bld) [Ratio] 0 % 0-5 [facility] MCHC Auto (RBC) [Mass/Vol]Or dered By: Dr. Morgan on 03-06-2023 MCHC (RBC) [Mass/Vol] 32.1 g/dL 32-[address] [facility] No Panel InformationOrdered By: Dr. Morgan on 03-06-2023 Estimated Creatinine Clearance Calc 33.16 ml/min [facility] Estimated GFR (MDRD) Amer 59 mL/min >60 [facility] Comment on above: GFR Calc Estimated GFR (MDRD) Non-Af Amer 49 mL/min >60 [facility] Comment on above: Non- GFR Calc Thyroid Stimulating Hormone (TSH) 0.26 uIU/mL 0.358-3.74 [facility] Platelets bldOrdered By: Dr. Morgan on 03-06-2023 Platelets (Bld) [#/Vol] 226 10*3/uL 150-450 [facility] Serum or plasma albumin devante urement (mass/volume)Ordered By: Dr. Morgan on 03-06-2023 Albumin [Mass/Vol] 2.6 g/dL 3.2-5.0 [facility] Serum or plasma albumin/glob ulin mass ratioOrdered By: Dr. Morgan on 03-06-2023 Albumin/Globulin [Mass ratio] 0.7 {ratio} 0.9-2.4 [facility] Serum or plasma calcium devante urement (mass/volume)Ordered By: Dr. Morgan on 03-06-2023 Calcium [Mass/Vol] 8.6 mg/dL 8.5-10.1 [facility] Serum or plasma creatinine m easurement (mass/volume)Ordered By: Dr. Morgan on 03-06-2023 Creatinine [Mass/Vol] 1.47 mg/dL 0.70-1.[address] [facility] Comment on above: The validity of the calculated GFR & GFRAA in patients over 70 years has not been determined. Clinical correlation is essential. Serum or plasma urea nitroge n measurement (mass/volume)Ordered By: Dr. Morgan on 03-06-2023 Urea nitrogen [Mass/Vol] 29 mg/dL 7-18 [facility] Serum procalcitonin measurem entOrdered By: Dr. Morgan on 03-06-2023 Procalcitonin [Mass/Vol] 0.09 ng/mL 0.00-0.09 [facility] Comment on above: A procalcitonin (PCT ) [...] smear with manual screening 65 U/L 15-37 [facility] Thin prep Papanicolaou smear with manual screening 0 5-15 [facility] Absolute lymphocyte countOrd ered By: ED PROVIDER on 03-05-2023 Lymphocytes Auto (Unsp spec) [#/Vol] 1.56 10*3/uL 0.83-4.51 [facility] Basophil percentageOrdered B y: ED PROVIDER on 03-05-2023 Basophil percentage 0-5 SEEN /hpf 0-5 [facility] Basophils/100 WBC (Bld) 0.3 % 0-1 [facility] Chloride [Moles/Vol] 111 mmol/L 98-107 [facility] Eosinophils/100 WBC (Bld) 1.4 % 0-5 [facility] Glucose [Mass/Vol] 111 mg/dL 74-106 [facility] Comment on above: Fasting Glucose resu lt from 100 to 125 mg/dL suggests IMPAIRED HOMEOSTASIS per A.D.A. criteria. Neutrophils (Bld) [#/Vol] 8.9 10*3/uL 2.0-7.7 [facility] Neutrophils/100 WBC (Bld) 75.4 % 47-70 [facility] Potassium [Moles/Vol] 4.5 mmol/L 3.5-5.[address] [facility] Sodium [Moles/Vol] 140 mmol/L 136-145 [facility] WBC (Bld) [#/Vol] 11.8 10*3/uL 4.4-11.0 [facility] Bilirubin Test strip Ql (U)O rdered By: ED PROVIDER on 03-05-2023 Bilirubin Ql (U) Negative Negative [facility] Blood erythrocytes count (nu mber/volume)Ordered By: ED PROVIDER on 03-05-2023 RBC (Bld) [#/Vol] 3.68 10*6/uL 4.6-6.2 [facility] Blood hemoglobin measurement (mass/volume)Ordered By: ED PROVIDER on 03-05-2023 Hemoglobin (Bld) [Mass/Vol] 11.7 g/dL 13.0-16.5 [facility] Blood lymphocytes/100 leukoc ytesOrdered By: ED PROVIDER on 03-05-2023 Lymphocytes/100 WBC (Bld) 13.3 % 19-41 [facility] Blood monocytes/100 leukocyt esOrdered By: ED PROVIDER on 03-05-2023 Monocytes/100 WBC (Bld) 9.3 % 0-10 [facility] Blood platelet mean volumeOr dered By: ED PROVIDER on 03-05-2023 Platelet mean volume (Bld) [Entitic vol] 10.5 fL 6.2-12.0 [facility] Determination of erythrocyte mean corpuscular volume (MCV)Ordered By: ED PROVIDER on 03-05-2023 MCV (RBC) [Entitic vol] 98.9 fL 80-94 [facility] Hematocrit Auto (Bld) [Volum e fraction]Ordered By: ED PROVIDER on 03-05-2023 Hematocrit (Bld) [Volume fraction] 36.4 % 40-54 [facility] Ketones Test strip Ql (U)Ord ered By: ED PROVIDER on 03-05-2023 Ketones Ql (U) Negative Negative [facility] Laboratory - Chemistry and C hemistry - challengeOrdered By: ED PROVIDER on 03-05-2023 CO2 [Moles/Vol] 27.0 mmol/L 21.0-32.0 [facility] Urea nitrogen/Creatinine [Mass ratio] 20.7 mg/mg 10-20 [facility] Laboratory - Hematology and Cell countsOrdered By: ED PROVIDER on 03-05-2023 Erythrocyte distribution width (RBC) [Entitic vol] 55.6 fL 35.1-43.9 [facility] Erythrocyte distribution width (RBC) [Ratio] 15.4 % 11.6-14.6 [facility] Immature granulocytes/100 WBC (Bld) 0.300 % 0.0-0.9 [facility] Comment on above: IG% - Immature Granu locytes (promyelocytes, myelocytes and metamyelocytes) > 1% indicates that a LEFT SHIFT is Present. MCH (RBC) [Entitic mass] 31.8 pg 27.0-32.0 [facility] Nucleated RBC/100 WBC (Bld) [Ratio] 0 % 0-5 [facility] MCHC Auto (RBC) [Mass/Vol]Or dered By: ED PROVIDER on 03-05-2023 MCHC (RBC) [Mass/Vol] 32.1 g/dL 32-[address] [facility] Mucus LM Ql (Urine sed)Order ed By: ED PROVIDER on 03-05-2023 Mucus Ql (Urine sed) 0 SEEN /hpf [facility] Nitrite Test strip Ql (U)Ord ered By: ED PROVIDER on 03-05-2023 Nitrite Ql (U) Negative Negative [facility] No Panel InformationOrdered By: Christiano Eastman on 03-05-2023 Ionized Calcium 4.9 mg/dL 4.5-5.6 [facility] Comment on above: Performed at: [place] [id number] Director: Hermann Godfrey PhD, Phone: [phone] No Panel InformationOrdered By: ED PROVIDER on 03-05-2023 Estimated GFR (MDRD) Amer 52 mL/min >60 [facility] Comment on above: GFR Calc Estimated GFR (MDRD) Non-Af Amer 43 mL/min >60 [facility] Comment on above: Non- GFR Calc Platelets bldOrdered By: ED PROVIDER on 03-05-2023 Platelets (Bld) [#/Vol] 225 10*3/uL 150-450 [facility] Protein Test strip Ql (U)Ord ered By: ED PROVIDER on 03-05-2023 Protein Ql (U) 100 mg/dl Negative [facility] Serum or plasma calcium devante urement (mass/volume)Ordered By: ED PROVIDER on 03-05-2023 Calcium [Mass/Vol] 9.2 mg/dL 8.5-10.1 [facility] Serum or plasma creatinine m easurement (mass/volume)Ordered By: ED PROVIDER on 03-05-2023 Creatinine [Mass/Vol] 1.64 mg/dL 0.70-1.[address] [facility] Comment on above: The validity of the calculated GFR & GFRAA in patients over 70 years has not been determined. Clinical correlation is essential. Serum or plasma urea nitroge n measurement (mass/volume)Ordered By: ED PROVIDER on 03-05-2023 Urea nitrogen [Mass/Vol] 34 mg/dL 7- [facility] Squamous epithelial cells de tection in urine sediment by light microscopyOrdered By: ED PROVIDER on 03-05-2023 Epithelial cells.squamous LM Ql (Urine sed) 0 SEEN /hpf 0-5 [facility] Thin prep Papanicolaou smear with manual screeningOrdered By: ED PROVIDER on 03-05-2023 Thin prep Papanicolaou smear with manual screening 2 5-15 [facility] Urine blood detectionOrdered By: ED PROVIDER on 03-05-2023 RBC Ql (U) Negative Negative [facility] RBC Ql (U) 0 SEEN /hpf 0-5 [facility] Urine clarityOrdered By: ED PROVIDER on 03-05-2023 Clarity (U) Clear Clear [facility] Urine color determinationOrd ered By: ED PROVIDER on 03-05-2023 Color (U) Yellow Yellow [facility] Urine glucose detectionOrder ed By: ED PROVIDER on 03-05-2023 Glucose Ql (U) Normal mg/dl Normal [facility] Urine leukocyte esterase det ection by dipstickOrdered By: ED PROVIDER on 03-05-2023 Leukocyte esterase Test strip Ql (U) 25 /ul Negative [facility] Urine pHOrdered By: ED PROVI JE on 03-05-2023 pH (U) 8.0 [pH] 5.0 - 8.0 [facility] Urine sediment bacteria coun t by microscopy (number/high power field)Ordered By: ED PROVIDER on 03-05-2023 Bacteria LM.HPF (Urine sed) [#/Area] RARE /hpf None Seen [facility] Urine specific gravity measu rementOrdered By: ED PROVIDER on 03-05-2023 Specific gravity (U) [Rel density] 1.010 1.002-1.030 [facility] Urobilinogen Auto test strip Ql (U)Ordered By: ED PROVIDER on 03-05-2023 Urobilinogen Ql (U) 1 mg/dl Normal [facility] Calcium SerPl-mCncon 023 Calcium [Mass/Vol] 9.3 mg/dL Normal 8.5-10.2 [facility] Comment on above: Order Comment: Speci men Type: BLOOD SPECIMEN Ordering Facility: [facility] Address: [address] [place] [address] Performed By: #### 1 7861-6 #### [facility] CLIA [id number] [address] [place] [address] [place] PTH-Intact [facility]-ncon 02-16 Parathyrin.intact [Mass/Vol] 11 pg/mL Low 15-65 [facility] Comment on above: Order Comment: Speci men Type: BLOOD SPECIMEN Ordering Facility: [facility] Address: [address] [place] [address] Performed By: #### 2 731-8 #### [facility] CLIA [id number] [address] [place] [address] [place] ANES POSTPROC EVALon 023 ANES POSTPROC EVAL HNO ID: [id number] Author: Urban Martinez MD Service: Anesthesiology Author [...] February 27, 2023 TIME: 1:18 PM CSN: [id number] 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 BRIEF OP NOTon 02-27-2023 BRIEF OP NOT HNO ID: [id number] Author: Karyna Reeves Jr., MD Service: ? Author Type: Physician Type: Brief Op Note Filed: 02/27/2023 9:47 AM Note Text: Brief Operative Note Patient Name: Michael Mullins LOG ID: [id number] Surgery/Procedure Date: 02/27/2023 Surgeon(s)/Procedurali st(s) and Trimming Cutter Machine(s): Surgeon(s) and Role: * Blanche Munoz MD [...] Tissue PARATHYROID GLAND LEFT SURGICAL PATHOLOGY Blanche Muonz MD 02/27/2023 8:42 AM B : Left [...] MD DATE: 02/27/23 TIME: 9:46 AM Normal [facility] INTRAOPERATIVE PTHon 023 INTRAOPERATIVE PTH 35 pg/mL Normal [facility] Comment on above: Order Comment: Speci men Type: BLOOD SPECIMEN Ordering Facility: [facility] Address: [address] [place] [address] Performed By: #### R IPTH #### [facility] CLIA [id number] [address] [place] [address] OF [facility] INTRAOPERATIVE PTH 83 pg/mL High - [facility] Comment on above: Order Comment: Speci men Type: BLOOD SPECIMEN Ordering Facility: [facility] Address: [address] [place] [address] Performed By: #### R IPTH #### [facility] CLIA [id number] [address] [place] [address] OPERATIVE NOon 02-27-2023 OPERATIVE NO HNO ID: [id number] Author: Blanche Munoz MD Service: Endocrine Surgery Author Type: Physician Type: Operative Report Filed: 02/27/2023 1:04 PM Note Text: [facility] - Operative Report MICHAEL MULLINS : 1940 AGE: 82. SEX: M PATIENT TYPE: A HOSP SVC: ENDOCRINE ALARCON LOCATION: [facility] ATTENDING PHYSICIAN: Blanche Munoz M.D. CSN NUMBER: [id number] DATE OF SURGERY/PROCEDURE: 02/27/2023 Incision/Procedure Start Time: 7:58 AM Incision Close/Procedure End Time: 9:44 AM PREOPERATIVE DIAGNOSIS: Primary hyperparathyroidism following previous anterior approach cervical spine surgery. POSTOPERATIVE DIAGNOSIS: Primary hyperparathyroidism following previous anterior approach cervical spine surgery. SURGEON: Blanche Munoz M.D. SUPERVISOR ELECTRIC MOTOR TESTING: Dr. Ruth Reeves. No qualified general surgery [...] subcuticular Prolene, placed (more content not included)... [facility] SURGICAL PATHOLOGYon [address] [facility] Comment on above: Order Comment: Speci men Type: TISSUE SPECIMEN Ordering Facility: [facility] Address: [address] [place] [id number] Result Comment: Surg [facility] Pathology Report Case: [id number] Authorizing Provider: Blanche Munoz MD Collected: 02/27/2023 08:42 AM Ordering Location: [facility] Surgery Received: 02/27/2023 08:52 AM Pathologist: [...] tissue #3 Performed By: #### S #### [facility] CLIA [id number] [address] [place] [address] CLINICAL HISTORY [facility] Comment on above: Order Comment: Speci men Type: TISSUE SPECIMEN Ordering Facility: [facility] Address: [address] [place] [address] Result Comment: Pre- op diagnosis: Hyperparathyroidism (HCC) [E21.3] Performed By: #### S #### [facility] CLIA [id number] [address] [place] [address] [facility] Comment on above: Order Comment: Speci men Type: TISSUE SPECIMEN Ordering Facility: [facility] Address: [address] [place] [address] Result Comment: A. P arathyroid gland, left lower, parathyroidectomy: -Hypercellular parathyroid tissue. B. Thymus, left cervical, resection: -Atrophic thymus. -No parathyroid tissue identified. C. Parathyroid gland, right lower #1, biopsy: -Mildly hypercellular parathyroid tissue. D. Parathyroid gland, right lower #2, excision: -Hypercellular parathyroid tissue. E. Parathyroid gland, right lower #3, excision: -Benign fibrofatty tissue. -No parathyroid tissue identified. Performed By: #### S #### [facility] CLIA [id number] [address] [place] [address] FINAL PERFORMING LAB [facility] Comment on above: Order Comment: Speci men Type: TISSUE SPECIMEN Ordering Facility: [facility] Address: [address] [place] [address] Result Comment: Diag nostic interpretation performed at [facility], [address] [place] [address] CLIA# [id number] Bolt Cutter: Yayo Alicea M.D. Performed By: #### S #### [facility] CLIA [id number] [address] [facility] [id number] [address] [place] GROSS DESCRIPTION Normal [facility] Comment on above: Order Comment: Speci men Type: TISSUE SPECIMEN Ordering Facility: [facility] Address: [address] [place] [address] Result Comment: A. P ARATHYROID GLAND LEFT Received fresh is a segment of reyes-red soft tissue measuring 13 x 8 x 6 mm and weighing 0.198 grams. Submitted in toto as FSA1. Gross examination performed at [facility], [address], [place] [address] CLIA# [id number]. B. THYMUS RESECTION Received fresh is a segment of yellow-reyes adipose tissue measuring 22 x 20 x 4 mm. Submitted in toto as FSB1. Gross examination performed at [facility], [address], [place] [address] CLIA# [id number]. C. PARATHYROID GLAND RIGHT Received fresh is a segment of reyes-red soft tissue measuring 6 x 4 x 3 mm and weighing 0.027 grams. Submitted in toto as FSC1. Gross examination performed at [facility], [address], [place] [address] CLIA# [id number]. D. PARATHYROID GLAND RIGHT Received fresh is a segment of reyes-red soft tissue measuring 7 x 5 x 4 mm and weighing 0.046 grams. Submitted in toto as FSD1. Gross examination performed at [facility], [address], [place] [address] CLIA# [id number]. E. PARATHYROID GLAND RIGHT Received in formalin labeled with parathyroid gland right, right lower parathyroid neck soft tissue #3 is a single fragment of yellow-pink soft tissue measuring 0.5 x 0.4 x 0.2 cm in weighing less than 0.01 g. The specimen is totally submitted intact in cassette E1. TLA February 27, 2023 2:54 PM Gross examination performed at [facility], [address] [place] [address] Performed By: #### S #### [facility] CLIA [id number] [address] [place] [address] [place] INTRAOPERATIVE DIAGNOSIS [facility] Comment on above: Order Comment: Speci men Type: TISSUE SPECIMEN Ordering Facility: [facility] Address: [address] [place] [address] Result Comment: A. P ARATHYROID GLAND LEFT FSA1 Left lower parathyroid gland: Parathyroid tissue (Dr. Effie Bonilla) Intraoperative diagnosis performed at [facility], [address], [place] [address] CLIA# [id number]. B. THYMUS RESECTION FSB1 Left cervical thymus: No parathyroid tissue identified (Dr. Effie Bonilla) Intraoperative diagnosis performed at [facility], [address], [place] [address] CLIA# [id number]. C. PARATHYROID GLAND RIGHT FSC1 Right lower parathyroid gland #1: Parathyroid tissue (Dr. Effie Bonilla) Intraoperative diagnosis performed at [facility], [address], [place] [address] CLIA# [id number]. D. PARATHYROID GLAND RIGHT FSD1 Right lower parathyroid gland #2: Hypercellular parathyroid tissue (Dr. Effie Bonilla) Intraoperative diagnosis performed at [facility], [address], [place] [id number] CLIA# [id number]. Performed By: #### S #### [facility] CLIA [id number] [address] [place] [address] [place] US THYROID/PARATHYROID (POC) ENDO USE ONLYon 02-27-2023 [facility] No Panel Informationon 12-27 LOWEST T-SCORE -3.0 [facility] US THYROID/PARATHYROID (POC) ENDO USE ONLYon 12-27-2022 [facility] UA DIP, URINE (POC)on 2022 BILIRUBIN UA (POCT) Negative Negative [facility] CLARITY UA (POCT) Clear [facility] COLOR UA (POCT) Light yellow [facility] GLUCOSE UA (POCT) Negative Negative mg/dL [facility] HEMOGLOBIN/BLOOD UA (POCT) Negative Negative [facility] KETONE UA (POCT) Negative Negative mg/dL [facility] LEUKOCYTES UA (POCT) Trace Abnormal Negative [facility] NITRITE UA (POCT) Negative Negative [facility] PH UA (POCT) 5.5 4.5 - 8.0 [facility] Protein Ql (U) 30 mg/dL Abnormal Negative mg/dL [facility] SPECIFIC GRAVITY UA (POCT) 1.025 1.005 - 1.030 [facility] UROBILINOGEN UA (POCT) 0.2 E.U./dL Jocelyn l E.U./dL [facility] XR Chest PA and Lateralon IMPRESSION: Findings likely related to known evolving viral pneumonia. Element of fibrosis is not excluded. Consultant Electronics: CHANA Transcribe Date/Time: Sep 26 2021 3:12P Dictated by : IGLESIA ERICKSON MD This examination was interpreted and the report reviewed and electronically signed by: IGLESIA ERICKSON MD on Sep 26 2021 3:13PM [facility] DIVISION OF RADIOLOGY * * *Final Report* [...] spine. DIVISION OF RADIOLOGY Provider, [facility] - 09/26/2021 * * *Final Report* [...] pneumonia. Element of fibrosis is not excluded. Consultant Electronics: PSCB Transcribe Date/Time: Sep 26 2021 3:12P Dictated by : IGLESIA ERICKSON MD This examination was interpreted and the report reviewed and electronically signed by: IGLESIA ERICKSON MD on Sep 26 2021 3:13PM EST [facility] Radiology Study observation (narrative) Andrew Membreno XR Chest PA and LateralOrder ed By: Ccf Provider on 09-26-2021 [facility] ANES POSTPROC EVALon 020 ANES POSTPROC EVAL HNO ID: [id number] Author: Dedrick Mccrary Service: ? Author Type: Anesthesiologist Type: Anesthesia Postprocedure Evaluation Filed: 08/29/2020 1:29 PM Note Text: POST ANESTHESIA EVALUATION NOTE : 1940 Procedure Summary Date: 08/29/20 Room / Location: [place] OR02 / [place] Anesthesia Start: 739 Anesthesia Stop: 909 [...] August 29, 2020 TIME: 1:29 PM CSN: [id number] [facility] ANES PRE-OPon 08-29-2020 ANES PRE-OP HNO ID: [id number] Author: Dedrick Mccrary Service: ? Author Type: [...] August 29, 2020 TIME: 7:33 AM CSN: [id number] [facility] BRIEF OP NOTon 08-29-2020 BRIEF OP NOT HNO ID: [id number] Author: Nasir Villafuerte Service: General Surgery Author Type: Physician Type: Brief Op Note Filed: 08/29/2020 9:18 AM Note Text: BRIEF OPERATIVE NOTATION FOR SURGICAL PROCEDURE. Michael Mullins 1940 [id number] male LOG ID: [id number] Surgery/Procedure Date: 08/29/2020 Incision/Procedure Start Time: 7:57 AM Incision Close/Procedure End Time: 9:03 AM Surgeon(s)/Procedurali st(s) and Trimming Cutter Machine(s): Surgeon(s) and Role: * Nasir Villafuerte - Primary Physician Trimming Cutter Machine: Bonny Perez (Pa) REFERRING PHYSICIAN: Outpatient DEPT: [facility]O PROVIDER: Natalia POS: [id number] ANESTHESIA: Monitored Anesthesia Care ASA CLASS: 2 - mild DIAGNOSIS: left inguinal hernia PROCEDURE: open left inguinal hernia repair with mesh - 70418-326 IVF: 1000 EBL: minimal Specimens: none ADDITIONAL [...] Clean Operative note dictated in the dictation system.[id number] Nasir Villafuerte MD [facility] HISTORY PHYSICALon 0 HISTORY PHYSICAL HNO ID: [id number] Author: Nasir Villafuerte Service: General Surgery Author [...] patient was offered a surgery/procedure at a [facility] facility. The surgeon/proceduralist and patient have [...] left inguinal hernia repair with mesh - [id number] ? Anticipated Anesthetic: MAC with local ? Patient weight: Blood pressure 120/80, pulse 79, temperature 36.1 ?C (96.9 ?F), temperature source Temporal Artery, weight 75.3 kg (166 lb), SpO2 96 %. BMI: Body mass index is 29.6 kg/m?. ? Planned antibiotic: Ancef 2gm IVPB front office supervisor to OR ? SCDs needed - Yes Return to Clinic: The patient is instructed to follow-up with me 1 week post operatively. ? Nasir Villafuerte MD [facility] OPERATIVE NOon 08-29-2020 OPERATIVE NO HNO ID: [id number] Author: Nasir Villafuerte Service: General Surgery Author Type: Physician Type: Operative Report Filed: 08/29/2020 6:42 PM Note Text: [facility] - Operative Report MICHAEL MULLINS : 1940 AGE: 80. SEX: M PATIENT TYPE: A HOSP [facility] LOCATION: [facility] ATTENDING PHYSICIAN: Nasir Villafuerte M.D. CSN NUMBER: [id number] DATE OF SURGERY/PROCEDURE: 08/29/2020 INCISION/PROCEDURE START TIME: 7:57 a.m. INCISION CLOSE/PROCEDURE END TIME: 9:03 a.m. PREOPERATIVE DIAGNOSIS: Left inguinal hernia. POSTOPERATIVE DIAGNOSIS: Direct left inguinal hernia with very weak floor. SURGEON: Nasir Villafuerte M.D. SUPERVISOR ELECTRIC MOTOR TESTING: LISA Peralta SURGERY/PROCEDURE: Open left inguinal hernia repair with mesh, using only the onlay component of a Covidien medium mesh plug, reference #SMPL-01, lot #[id number], expires 10/17/2024. ANESTHESIA: Monitored anesthesia care. LOG ID: [id number] ANESTHESIOLOGIST: Dedrick Mccrary. ASA: 2. INTRAVENOUS FLUIDS: [...] or surgeons to assist. Nasir Villafuerte M.D. RG:[id number] /[id number] [facility] NURSING PROGon 08-25-2020 NURSING PROG HNO ID: [id number] Author: Ashlee (Rn) TRACY Mckeon Service: ? [...] Mckeon RN August 25, 2020 12:31 PM [facility] HOSPon 08-02-2020 HOSP Patient:William Mullins MRN: Height:5' [...] the following basenames: K,HCT Progress Notes (PT [facility]): Mode Oshea PT 08/17/2020 3:15 [...] assist to moderate assist as needed. Billing: [facility]: Therapeutic Exercise (53628): 1:1 time: 28 minutes (2 units: 23-37 mins) Neuromuscular Re-education (70782): 1:1 time:15 minutes (1 unit: 8-22 mins) Total time / Length of visit: 43 minutes Effie Calvillo, PT-Almas Oshea PT Previous Version Progress Notes (PT [facility]): Mode Oshea PT 08/15/2020 3:21 [...] gait belt and contact guard assist. Billing: [facility]: Therapeutic Exercise (23105): 1:1 time: 30 minutes (2 units: 23-37 mins) Neuromuscular Re-education (99564): 1:1 time:15 minutes (1 unit: 8-22 mins) Total time / Length of visit: 45 minutes Effie Calvillo, PT-A Mode Oshea, PT Previous Version Normal [facility] No Panel Information [facility] Vital Signs Date Time Vital Sign Value Performing Clinician Facility 11-13-2024 09:51-0500 Body mass index (BMI) [Ratio] 24.72 kg/m2 Antony Espinoza MD Work Phone: [facility] 11-13-2024 09:51-0500 Body weight 65.32 kg Antony Espinoza MD Work Phone: [facility] 11-13-2024 09:51-0500 Diastolic blood pressure 82 mm[Hg] Antony Espinoza MD Work Phone: [facility] 11-13-2024 09:51-0500 Heart rate 62 /min Antony Espinoza MD Work Phone: [facility] 11-13-2024 09:51-0500 Respiratory rate 16 /min Antony Espinoza MD Work Phone: [facility] 11-13-2024 09:51-0500 SaO2% (BldA) [Mass fraction] 97 % Antony Espinoza MD Work Phone: [facility] 11-13-2024 09:51-0500 Systolic blood pressure 134 mm[Hg] Antony Espinoza MD Work Phone: [facility] 10-02-2024 10:28-0500 Body height 162.6 cm Shaji Gaona MD Work Phone: [facility] 10-02-2024 10:28-0500 Heart rate 73 /min Shaji Gaona MD Work Phone: [facility] 10-02-2024 10:28-0500 SaO2% (BldA) [Mass fraction] 94 % Shaji Gaona MD Work Phone: [facility] 05-20-2023 11:11-0400 Body height 162.6 cm Antony Espinoza MD Work Phone: [facility] 05-20-2023 11:11-0400 Body weight 60.33 kg Antony Espinoza MD Work Phone: [facility] 05-20-2023 11:11-0400 Diastolic blood pressure 48 mm[Hg] Antony Espinoza MD Work Phone: [facility] 05-20-2023 11:11-0400 Heart rate 60 /min Antony Espinoza MD Work Phone: [facility] 05-20-2023 11:11-0400 SaO2% (BldA) [Mass fraction] 96 % Antony Espinoza MD Work Phone: [facility] 05-20-2023 11:11-0400 Systolic blood pressure 110 mm[Hg] Antony Espinoza MD Work Phone: [facility] 05-10-2023 08:10-0400 Body height 162.[address] [facility] 05-10-2023 08:10-0400 Body temperature 97.7 [degF] Pst 1 [facility] 05-10-2023 08:10-0400 Body weight 61.[address] [facility] 05-10-2023 08:10-0400 Diastolic blood pressure 68 mm[Hg] Pst [address] [facility] 05-10-2023 08:10-0400 Heart rate 60 /min Pst [address] [facility] 05-10-2023 08:10-0400 Respiratory rate 18 /min Pst 1 [facility] 05-10-2023 08:10-0400 SaO2% (BldA) [Mass fraction] 98 % Pst [address] [facility] 05-10-2023 08:10-0400 Systolic blood pressure 135 mm[Hg] Pst [address] [facility] 05-03-2023 10:40-0400 Body height 162.6 cm Shaji Gaona MD Work Phone: [facility] 05-03-2023 10:40-0400 Heart rate 63 /min Shaji Gaona MD Work Phone: [facility] 05-03-2023 10:40-0400 SaO2% (BldA) [Mass fraction] 97 % Shaji Gaona MD Work Phone: [facility] 05-01-2023 14:41-0400 Body temperature 98.01 [degF] Jennifer Halderman-Lynch PT Work Phone: [facility] 05-01-2023 14:41-0400 Diastolic blood pressure 64 mm[Hg] Jennifer Halderman-Lynch PT Work Phone: [facility] 05-01-2023 14:41-0400 Heart rate 60 /min Jennifer Halderman-Lynch PT Work Phone: [facility] 05-01-2023 14:41-0400 Respiratory rate 18 /min Jennifer Halderman-Lynch PT Work Phone: [facility] 05-01-2023 14:41-0400 SaO2% (BldA) [Mass fraction] 96 % Jennifer Halderman-Lynch PT Work Phone: [facility] 05-01-2023 14:41-0400 Systolic blood pressure 132 mm[Hg] Jennifer Halderman-Lynch PT Work Phone: [facility] 04-25-2023 11:21-0400 Body temperature 97.59 [degF] Jade Swathi CURRICULUM MANAGER Work Phone: [facility] 04-25-2023 11:21-0400 Diastolic blood pressure 76 mm[Hg] Jade Swathi CURRICULUM MANAGER Work Phone: [facility] 04-25-2023 11:21-0400 Heart rate 62 /min Jade Swathi CURRICULUM MANAGER Work Phone: [facility] 04-25-2023 11:21-0400 Respiratory rate 18 /min Jade Swathi CURRICULUM MANAGER Work Phone: [facility] 04-25-2023 11:21-0400 SaO2% (BldA) [Mass fraction] 96 % Jade Swathi CURRICULUM MANAGER Work Phone: [facility] 04-25-2023 11:21-0400 Systolic blood pressure 118 mm[Hg] Jade Swathi CURRICULUM MANAGER Work Phone: [facility] 04-19-2023 16:34-0400 Diastolic blood pressure 70 mm[Hg] Cori Chowdhury PT Work Phone: [facility] 04-19-2023 16:34-0400 Heart rate 70 /min Cori Chowdhury PT Work Phone: [facility] 04-19-2023 16:34-0400 Respiratory rate 16 /min Cori Chowdhury PT Work Phone: [facility] 04-19-2023 16:34-0400 SaO2% (BldA) [Mass fraction] 96 % Cori Torresox PT Work Phone: [facility] 04-19-2023 16:34-0400 Systolic blood pressure 110 mm[Hg] Cori Chowdhury PT Work Phone: [facility] 04-19-2023 16:18-0400 Body temperature 98.2 [degF] Cori Chowdhury PT Work Phone: [facility] 04-17-2023 12:19-0400 Body temperature 98.1 [degF] Jade Swathi CURRICULUM MANAGER Work Phone: [facility] 04-17-2023 12:19-0400 Diastolic blood pressure 78 mm[Hg] Jade Swathi CURRICULUM MANAGER Work Phone: [facility] 04-17-2023 12:19-0400 Heart rate 65 /min Jade Swathi CURRICULUM MANAGER Work Phone: [facility] 04-17-2023 12:19-0400 Respiratory rate 18 /min Jade Swathi CURRICULUM MANAGER Work Phone: [facility] 04-17-2023 12:19-0400 SaO2% (BldA) [Mass fraction] 95 % Jade Swathi CURRICULUM MANAGER Work Phone: [facility] 04-17-2023 12:19-0400 Systolic blood pressure 118 mm[Hg] Jade Echevarria CURRICULUM MANAGER Work Phone: [facility] 2023 14:24-0400 Diastolic blood pressure 81 mm[Hg] Shaji Gaona MD Work Phone: [facility] 2023 14:24-0400 Heart rate 65 /min Shaji Gaona MD Work Phone: [facility] 2023 14:24-0400 SaO2% (BldA) [Mass fraction] 97 % Shaji Gaona MD Work Phone: [facility] 2023 14:24-0400 Systolic blood pressure 140 mm[Hg] Shaji Gaona MD Work Phone: [facility] 04-03-2023 11:33-0400 Diastolic blood pressure 68 mm[Hg] Prinkarissa Solomon CURRICULUM MANAGER Work Phone: [facility] 04-03-2023 11:33-0400 Heart rate 63 /min Prinston Solomon CURRICULUM MANAGER Work Phone: [facility] 04-03-2023 11:33-0400 Respiratory rate 18 /min Prinston Solomon CURRICULUM MANAGER Work Phone: [facility] 04-03-2023 11:33-0400 SaO2% (BldA) [Mass fraction] 98 % Prinston Solomon CURRICULUM MANAGER Work Phone: [facility] 04-03-2023 11:33-0400 Systolic blood pressure 136 mm[Hg] Prinston Solomon CURRICULUM MANAGER Work Phone: [facility] 04-03-2023 11:03-0400 Body temperature 98.6 [degF] Prinston Solomon CURRICULUM MANAGER Work Phone: [facility] 03-29-2023 14:19-0400 Body temperature 98.29 [degF] Monae Bobo RN Work Phone: [facility] 03-29-2023 14:19-0400 Diastolic blood pressure 64 mm[Hg] Monaeaustin Boob RN Work Phone: [facility] 03-29-2023 14:19-0400 Heart rate 68 /min Monae Bobo RN Work Phone: [facility] 03-29-2023 14:19-0400 Respiratory rate 16 /min Monaeaustin Bobo RN Work Phone: [facility] 03-29-2023 14:19-0400 SaO2% (BldA) [Mass fraction] 96 % Jade Swathi CURRICULUM MANAGER Work Phone: [facility] 03-29-2023 14:19-0400 Systolic blood pressure 126 mm[Hg] Jade Swathi CURRICULUM MANAGER Work Phone: [facility] 03-29-2023 13:00-0400 Body temperature 98.1 [degF] Jade Swathi CURRICULUM MANAGER Work Phone: [facility] 03-29-2023 13:00-0400 Diastolic blood pressure 62 mm[Hg] Jade Swathi CURRICULUM MANAGER Work Phone: [facility] 03-29-2023 13:00-0400 Heart rate 64 /min Jade Swathi CURRICULUM MANAGER Work Phone: [facility] 03-29-2023 13:00-0400 Respiratory rate 18 /min Jade Swathi CURRICULUM MANAGER Work Phone: [facility] 03-27-2023 12:51-0400 Body temperature 97.81 [degF] Jade Swathi CURRICULUM MANAGER Work Phone: [facility] 03-27-2023 12:51-0400 Diastolic blood pressure 62 mm[Hg] Jade Swathi CURRICULUM MANAGER Work Phone: [facility] 03-27-2023 12:51-0400 Heart rate 65 /min Jade Swathi CURRICULUM MANAGER Work Phone: [facility] 03-27-2023 12:51-0400 Respiratory rate 18 /min Jade Swathi CURRICULUM MANAGER Work Phone: [facility] 03-27-2023 12:51-0400 SaO2% (BldA) [Mass fraction] 97 % Jade Swathi CURRICULUM MANAGER Work Phone: [facility] 03-27-2023 12:51-0400 Systolic blood pressure 120 mm[Hg] Jade Swathi CURRICULUM MANAGER Work Phone: [facility] 03-25-2023 08:51-0400 Body height 162.6 cm Antony Espinoza MD Work Phone: [facility] 03-25-2023 08:51-0400 Body weight 56.97 kg Antony Espinoza MD Work Phone: [facility] 03-25-2023 08:51-0400 Diastolic blood pressure 70 mm[Hg] Antony Espinoza MD Work Phone: [facility] 03-25-2023 08:51-0400 Heart rate 60 /min Antony Espinoza MD Work Phone: [facility] 03-25-2023 08:51-0400 SaO2% (BldA) [Mass fraction] 98 % Antony Espinoza MD Work Phone: [facility] 03-25-2023 08:51-0400 Systolic blood pressure 120 mm[Hg] Antony Espinoza MD Work Phone: [facility] 03-24-2023 10:18-0400 Body temperature 97.39 [degF] Jennifer Clark PT Work Phone: [facility] 03-24-2023 10:18-0400 Body weight 56.88 kg Jennifer Clark PT Work Phone: [facility] 03-24-2023 10:18-0400 Diastolic blood pressure 66 mm[Hg] Jennifer Clark PT Work Phone: [facility] 03-24-2023 10:18-0400 Heart rate 55 /min Jennifer Clark PT Work Phone: [facility] 03-24-2023 10:18-0400 Respiratory rate 16 /min Jennifer Clark PT Work Phone: [facility] 03-24-2023 10:18-0400 SaO2% (BldA) [Mass fraction] 97 % Jennifer RamjexiomaraDavid PT Work Phone: [facility] 03-24-2023 10:18-0400 Systolic blood pressure 148 mm[Hg] Jennifer RamjexiomaraDavid PT Work Phone: [facility] 03-22-2023 08:10-0400 Body height 162.6 cm Lorenzo Carballo PA-C Work Phone: [facility] 03-22-2023 08:10-0400 Body temperature 97.9 [degF] Lorenzo Carballo PA-C Work Phone: [facility] 03-22-2023 08:10-0400 Body weight 60.33 kg Lorenzo Carballo PA-C Work Phone: [facility] 03-22-2023 08:10-0400 Diastolic blood pressure 60 mm[Hg] Lorenzo Carballo PA-C Work Phone: [facility] 03-22-2023 08:10-0400 Heart rate 66 /min Lorenzo Carballo PA-C Work Phone: [facility] 03-22-2023 08:10-0400 Respiratory rate 14 /min Lorenzo Carballo PA-C Work Phone: [facility] 03-22-2023 08:10-0400 SaO2% (BldA) [Mass fraction] 98 % Lorenzo Carballo PA-C Work Phone: [facility] 03-22-2023 08:10-0400 Systolic blood pressure 118 mm[Hg] Lorenzo Carballo PA-C Work Phone: [facility] 03-19-2023 13:16-0400 Body temperature 98.2 [degF] María Mcdonnell RN Work Phone: [facility] 03-19-2023 13:16-0400 Diastolic blood pressure 60 mm[Hg] María Mcdonnell RN Work Phone: [facility] 03-19-2023 13:16-0400 Heart rate 61 /min María Mcdonnell RN Work Phone: [facility] 03-19-2023 13:16-0400 Respiratory rate 16 /min María Mcdonnell RN Work Phone: [facility] 03-19-2023 13:16-0400 SaO2% (BldA) [Mass fraction] 96 % María Mcdonnell RN Work Phone: [facility] 03-19-2023 13:16-0400 Systolic blood pressure 112 mm[Hg] María Mcdonnell RN Work Phone: [facility] 03-08-2023 20:45-0400 Body temperature 98.6 [degF] Dr. Antony Espinoza Work Phone: [facility] 03-08-2023 20:45-0400 Diastolic blood pressure 79 mm[Hg] Dr. Antony Espinoza Work Phone: [facility] 03-08-2023 20:45-0400 Heart rate 62 /min Dr. Antony Espinoza Work Phone: [facility] 03-08-2023 20:45-0400 Respiratory rate 17 /min Dr. Antony Espinoza Work Phone: [facility] 03-08-2023 20:45-0400 SaO2% (BldA) [Mass fraction] 97 % Dr. Antony Espinoza Work Phone: [facility] 03-08-2023 20:45-0400 Systolic blood pressure 155 mm[Hg] Dr. Antony Espinoza Work Phone: [facility] 03-08-2023 03:21-0400 Body mass index (BMI) [Ratio] 22.7 kg/m2 Dr. Antony Espinoza Work Phone: [facility] 03-08-2023 03:21-0400 Body weight 60.[address] Antony Espinoza Work Phone: [facility] 03-06-2023 01:18-0400 Body height 162.[address] Antony Espinoza Work Phone: [facility] 03-06-2023 00:25-0400 Body temperature 98.9 [degF] [facility] 03-06-2023 00:25-0400 Diastolic blood pressure 78 mm[Hg] [facility] 03-06-2023 00:25-0400 Heart rate 75 /min [facility] 03-06-2023 00:25-0400 Respiratory rate 15 /min [facility] 03-06-2023 00:25-0400 SaO2% (BldA) [Mass fraction] 95 % [facility] 03-06-2023 00:25-0400 Systolic blood pressure 158 mm[Hg] [facility] 03-05-2023 21:32-0400 Body mass index (BMI) [Ratio] 20.7 kg/m2 [facility] 03-05-2023 21:32-0400 Body weight 60.1 kg [facility] 03-05-2023 19:16-0400 Body height 170.18 cm [facility] 12-27-2022 10:03-0500 Body height 157.5 cm Blanche Munoz MD Work Phone: [facility] 12-27-2022 10:03-0500 Body weight 59.42 kg Blanche Munoz MD Work Phone: [facility] 12-27-2022 10:03-0500 Diastolic blood pressure 70 mm[Hg] Blanche Munoz MD Work Phone: [facility] 12-27-2022 10:03-0500 Heart rate 63 /min Blanche Munoz MD Work Phone: [facility] 12-27-2022 10:03-0500 Systolic blood pressure 143 mm[Hg] Blanche Munoz MD Work Phone: [facility] 12-13-2022 13:17-0500 Body weight 58.06 kg Shanthi Rangel MD Work Phone: [facility] 12-13-2022 13:17-0500 Diastolic blood pressure 74 mm[Hg] Shanthi Rangel MD Work Phone: [facility] 12-13-2022 13:17-0500 Heart rate 61 /min Shanthi Rangel MD Work Phone: [facility] 12-13-2022 13:17-0500 Systolic blood pressure 134 mm[Hg] Shanthi Rangel MD Work Phone: [facility] 11-26-2022 14:11-0500 Body weight 60.6 kg Ian Holly MD Work Phone: [facility] 11-26-2022 14:11-0500 Diastolic blood pressure 64 mm[Hg] Ian Holly MD Work Phone: [facility] 11-26-2022 14:11-0500 Heart rate 64 /min Ian Holly MD Work Phone: [facility] 11-26-2022 14:11-0500 SaO2% (BldA) [Mass fraction] 97 % Ian Holly MD Work Phone: [facility] 11-26-2022 14:11-0500 Systolic blood pressure 124 mm[Hg] Ian Holly MD Work Phone: [facility] 11-23-2022 09:01-0500 Body height 157.5 cm Lorenzo Carballo PA-C Work Phone: [facility] 11-23-2022 09:01-0500 Body temperature 97.81 [degF] Lorenzo Carballo PA-C Work Phone: [facility] 11-23-2022 09:01-0500 Body weight 58.97 kg Lorenzo Carballo PA-C Work Phone: [facility] 11-23-2022 09:01-0500 Diastolic blood pressure 70 mm[Hg] Lorenzo Carballo PA-C Work Phone: [facility] 11-23-2022 09:01-0500 Heart rate 82 /min Lorenzo Carballo PA-C Work Phone: [facility] 11-23-2022 09:01-0500 Respiratory rate 16 /min Lorenzo Carballo PA-C Work Phone: [facility] 11-23-2022 09:01-0500 SaO2% (BldA) [Mass fraction] 93 % Lorenzo Carballo PA-C Work Phone: [facility] 11-23-2022 09:01-0500 Systolic blood pressure 128 mm[Hg] Lorenzo Carballo PA-C Work Phone: [facility] 06-05-2022 15:49-0400 Body weight 61.15 kg Shanthi Rangel MD Work Phone: [facility] 06-05-2022 15:49-0400 Diastolic blood pressure 66 mm[Hg] Shanthi Rangel MD Work Phone: [facility] 06-05-2022 15:49-0400 Heart rate 62 /min Shanthi Rangel MD Work Phone: [facility] 06-05-2022 15:49-0400 SaO2% (BldA) [Mass fraction] 95 % Shanthi Rangel MD Work Phone: [facility] 06-05-2022 15:49-0400 Systolic blood pressure 151 mm[Hg] Shanthi Rangel MD Work Phone: [facility] 05-07-2022 10:34-0400 Body weight 60.33 kg Antony Espinoza MD Work Phone: [facility] 05-07-2022 10:34-0400 Diastolic blood pressure 72 mm[Hg] Antony Espinoza MD Work Phone: [facility] 05-07-2022 10:34-0400 Heart rate 56 /min Antony Espinoza MD Work Phone: [facility] 05-07-2022 10:34-0400 Systolic blood pressure 138 mm[Hg] Antony Espinoza MD Work Phone: [facility] Encounters Encounter Date Encounter Type Care Provider Facility Start: 04-09-2025 End: 04-09-2025 [facility] Facility:[facility] Start: 03-08-2025 End: 03-08-2025 Refill Shaji Gaona MD Work Phone: [facility] Comment on above: Refill Request Start: 01-29-2025 End: 01-29-2025 Refill Antony Espinoza MD Work Phone: [facility] Comment on above: Refill Request Start: 01-22-2025 End: 01-25-2025 Refill Antony Espinoza MD [facility] Phone[facility] Comment on above: Refill Request Start: 01-08-2025 End: 01-08-2025 ambulatory LORI GOODMAN Facility:[facility] Start: 01-08-2025 End: 01-08-2025 Patient encounter procedure Lori Goodman Work Phone: Podiatry Comment on above: Onychomycosis (Prima ry Dx); Pain in toe of left foot; Pain in toe of right foot; Diabetic polyneuropathy associated with type 2 diabetes mellitus (HCC); Hammer toe of left foot; Callus of foot Start: 11-16-2024 End: 11-17-2024 Telephone encounter Antony Espinoza MD Work Phone: [facility] Comment on above: Results Start: 11-13-2024 End: 11-13-2024 ambulatory ANTONY ESPINOZA Facility:[facility] Start: 11-13-2024 End: 11-13-2024 Patient encounter procedure Antony Espinoza MD Work Phone: [facility] Comment on above: Primary hypertension (Primary Dx); Encounter for immunization; Atherosclerosis of [place] coronary artery of [place] heart without angina pectoris; Hyperlipidemia LDL [...] 10-14-2024 Refill Antony Espinoza MD Work Phone: [facility] Comment on above: Refill Request Start: 10-02-2024 End: 10-02-2024 Patient encounter procedure Shaji Gaona MD Work Phone: [facility] Comment on above: 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); Nocturia; Incomplete bladder emptying Start: 10-02-2024 End: 10-02-2024 ambulatory SHAJI GAONA Facility:[facility] Start: 09-28-2024 End: 09-28-2024 ambulatory LORI MAXINE Facility:[facility] Start: 09-28-2024 End: 09-28-2024 Patient encounter procedure Lori Goodman Work Phone: Podiatry Comment on above: Onychomycosis (Prima ry Dx); Pain in toe of left foot; Pain in toe of right foot; Diabetic polyneuropathy associated with type 2 diabetes mellitus (HCC); Hammer toe of left foot Start: 06-30-2024 Refill Antony Espinoza MD Work Phone: [facility] Comment on above: Refill Request requesting medicatio n that is Start: 05-26-2024 End: 05-27-2024 ambulatory LORI MAXINE Facility:[facility] Start: 05-26-2024 End: 05-26-2024 Patient encounter procedure Lori Goodman Work Phone: Podiatry Comment on above: Onychomycosis (Prima ry Dx); Pain in toe of left foot; Pain in toe of right foot; Callus of foot; Diabetic polyneuropathy associated with type 2 diabetes mellitus (HCC); Hammer toe of left foot Start: 05-12-2024 End: 05-12-2024 ambulatory [facility] Facility:[facility] Start: 03-24-2024 Refill Antony Espinoza MD Work Phone: [facility] Comment on above: Refill Request requesting medicatio [...] Telephone encounter Antony Espinoza MD Work Phone: [facility] Comment on above: Results Start: 01-01-2024 End: 01-01-2024 Patient encounter procedure Dmitry Painting MD Work Phone: Ophthalmology Comment on above: Left posterior capsu lar opacification (Primary Dx); Pseudophakia; Amblyopia, right eye; Hypertensive retinopathy, bilateral Start: 10-07-2023 End: 10-07-2023 ambulatory SHAJI GAONA Facility:[facility] Start: 08-01-2023 Refill Antony Espinoza MD Work Phone: [facility] Comment on above: Refill Request Start: 05-30-2023 End: 05-30-2023 Nursing evaluation of patient and report Nurse Urol [place] Work Phone: [facility] Comment on above: 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) Start: 05-30-2023 End: 05-30-2023 Nursing evaluation of patient and report Nurse Urol [place] Work Phone: [facility] Comment on above: 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) Start: 05-27-2023 End: 05-27-2023 Nursing evaluation of patient and report Nurse Urol [place] Work Phone: [facility] Comment on above: 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) Start: 05-20-2023 End: 05-20-2023 Patient encounter procedure Antony Espinoza MD Work Phone: [facility] Comment on above: Urinary retention (P rimary Dx); Anemia, unspecified type; Mild cognitive impairment with memory loss; Atherosclerosis of [place] coronary artery of [place] heart without angina pectoris; Cardiomyopathy, nonischemic (HCC); Type 2 diabetes mellitus with other specified complication, without long-term current use of insulin (HCC); 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); Benign prostatic hyperplasia, unspecified whether lower urinary tract symptoms present Start: 05-15-2023 Telephone encounter Shaji Gaona MD Work Phone: [facility] Comment on above: Patient Update surgery question Start: 05-14-2023 Telephone encounter Antony Espinoza MD Work Phone: [facility] Comment on above: Medical Clearance Fo rm-Urology Procedure Start: 05-14-2023 End: 05-14-2023 ambulatory [facility] Facility:[facility] Start: 05-10-2023 End: 05-10-2023 Admission to [facility] Start: 05-10-2023 End: 05-10-[address] 1 [facility] Comment on above: Pre-op examination; Benign prostatic hyperplasia with urinary retention; Retention of urine, unspecified; Hyperlipidemia LDL goal <100; Primary hypertension; Atherosclerosis of [place] coronary artery of [place] heart without angina pectoris; Cardiomyopathy, nonischemic [...] End: 05-20-2023 Preprocedural examination done Pst 1 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 Comment on above: PT AGENCY DC W VISIT Start: 04-25-2023 End: 04-25-2023 Home visit Jade Swathi CURRICULUM MANAGER Work Phone: [facility] Comment on above: CURRICULUM MANAGER ROUTINE Start: 04-23-2023 Telephone encounter Antony Espinoza MD Work Phone: [facility] Comment on above: Extend PT-need verba l Start: 04-23-2023 End: 04-23-2023 Home visit Cori Chowdhury PT Work Phone: [facility] Comment on above: TELEPHONE CONTACT Start: 04-19-2023 End: 04-19-2023 Home visit Cori Chowdhury PT Work Phone: [facility] Comment on above: PT REASSESSMENT Start: 04-19-2023 Telephone encounter Harinder Norris RN Work Phone: [facility] Comment on above: Home Care (Notificat ion of skilled home health nurse discipline discharge 04/09/23.) Start: 04-17-2023 End: 04-17-2023 Home visit Jade Echevarria CURRICULUM MANAGER Work Phone: 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 Comment on above: CURRICULUM MANAGER ROUTINE Start: 03-29-2023 End: 03-29-2023 Home visit Jade Echevarria CURRICULUM MANAGER Work Phone: [facility] Comment on above: CURRICULUM MANAGER ROUTINE SN ROUTINE Start: 03-29-2023 End: 03-29-2023 Nursing evaluation of patient and report Nurse Urol [facility] Work Phone: Urology Comment on above: 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) Start: 03-27-2023 End: 03-27-2023 Home visit Jade Echevarria CURRICULUM MANAGER Work Phone: [facility] Comment on above: CURRICULUM MANAGER ROUTINE Start: 03-25-2023 Telephone encounter [facility] Comment on above: Home Care Appointment Start: 03-25-2023 End: 03-25-2023 Patient encounter procedure Antony Espinoza MD Work Phone: [facility] Comment on above: Osteoarthritis of verna th knees, unspecified osteoarthritis type (Primary Dx); Type 2 diabetes mellitus with diabetic polyneuropathy, without long-term current use of insulin (HCC); Mild cognitive impairment with memory loss; Lumbar disc disease with radiculopathy; Atherosclerosis of [place] coronary artery of [place] heart without angina pectoris; Cardiomyopathy, nonischemic (HCC); Controlled type 2 diabetes mellitus with microalbuminuria, without long-term current use of insulin (HCC); Benign prostatic hyperplasia with urinary obstruction; 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 Comment on above: SN SOC Start: 03-16-2023 Telephone encounter Marisol Aisha dewitt [employer] Work Phone: [facility] Comment on above: Home Care (MD yodit adams ) Home Care (Pt confir mation call ) Start: 03-08-2023 Non-patient / Non-visit Dr. Ford Espinoza Work Phone: [facility] Start: 03-07-2023 Non-patient / Non-visit Dr. Ford Espinoza Work Phone: [facility] Start: 03-06-2023 End: 03-08-2023 Evaluation and management of inpatient [facility] 3 Start: 03-06-2023 End: 03-08-[address] Antony Espinoza Work Phone: [facility] Work Phone: Start: 02-27-2023 End: 02-28-2023 Orders Only Karyna Reeves MD Work Phone: Endocrine Surgery Comment on above: Hyperparathyroidism (HCC) (Primary Dx) Start: 02-26-2023 Orders Only Karyna feldman MD Work Phone: Endocrine Surgery Comment on above: Hyperparathyroidism (HCC) (Primary Dx) Start: 02-21-2023 Refill Antony Espinoza MD Work Phone: [facility] [place] Comment on above: Refill Request Start: 02-08-2023 Refill Antony Espinoza MD Work Phone: [facility] Comment on above: Refill Request Start: 01-30-2023 Refill Antony Espinoza MD Work Phone: [facility] Comment on above: Refill Request Start: 12-27-2022 [...] 12-07-2022 Refill Antony Espinoza MD Work Phone: [facility] Comment on above: Refill Request Start: 11-26-2022 End: 11-26-2022 Patient encounter procedure Ian Holly MD Work Phone: Cardiology Comment on above: Primary hypertension (Primary Dx); Atherosclerosis of [place] coronary artery of [place] heart without angina pectoris; Hyperlipidemia LDL goal <100; LBBB (left bundle branch block); Cardiomyopathy, nonischemic (HCC) Start: 11-23-2022 End: 11-23-2022 Patient encounter procedure Lorenzo Carballo PA-C Work Phone: Urology Comment on above: Benign prostatic hyp erplasia, unspecified whether lower urinary tract symptoms present (Primary Dx) Start: 09-11-2022 Refill Antony Espinoza MD Work Phone: [facility] Comment on above: Refill Request Start: 08-15-2022 Refill Antony Espinoza MD Work Phone: [facility] Comment on above: Refill Request Start: 07-27-2022 End: 07-27-2022 Patient encounter procedure Lori Joaquinlisette Work Phone: Podiatry Comment on above: Onychomycosis (Prima ry Dx); Pain in toe of left foot; Pain in toe of right foot; Diabetic polyneuropathy associated with type 2 diabetes mellitus (HCC); Hyperkeratosis; Nevus Start: 07-26-2022 Refill Antony Espnioza MD Work Phone: [facility] Comment on above: Refill Request Start: 06-29-2022 Refill Antony Espinoza MD Work Phone: [facility] Comment on above: Refill Request; Refi ll Request Start: 06-05-2022 End: 06-05-2022 Patient encounter procedure Shanthi Rangel MD Work Phone: Endocrinology Comment on above: Hyperparathyroidism (HCC) (Primary Dx); Hypercalcemia Start: 05-09-2022 Telephone encounter Antony Espinoza MD Work Phone: [facility] Comment on above: Results Start: 05-07-2022 End: 05-07-2022 Patient encounter procedure Antony Espinoza MD Work Phone: [facility] Comment on above: Hypercalcemia (Prima ry Dx); [...] 04-13-2022 Refill Antony Espinoza MD Work Phone: [facility] [place] Comment on above: Refill Request Start: 03-22-2022 Refill Antony Espinoza MD Work Phone: [facility] [place] Comment on above: Refill Request Start: 03-21-2022 Refill Alex Sexton APRN.[employer]PER[employer], DNP Work Phone: [facility] [place] Comment on above: Refill Request Start: 03-05-2022 Refill Antony Espinoza MD Work Phone: [facility] [place] Comment on above: Refill Request Start: 09-26-2021 End: 09-26-2021 Subsequent hospital visit by physician Xr [facility] [place] Work Phone: Radiology Comment on above: [...] 09-26-2021 Radiologic exam chest 2 views Antony Espinoza MD Work Phone: Start: 01-09-2021 Adult depression [...] Detail Author Start: 11-28-[address] [facility] Start: 11-13-2025 Covid-19 Vaccine ( season) Covid-19 Vaccine ( season) [facility] Comment on above: Postponed from 07/19/2024 (Declined at t his time) Start: 11-13-2025 Depression Screening Depression Screening [facility] Start: 11-13-2025 Hepatitis B screening Urine Albumin:Creatinine Ratio [facility] Start: 11-13-2025 Hepatitis B surface antibody level LDL Cholesterol [facility] Start: 11-13-2025 RSV Vaccine (1 - 1-dose 75+ series) RSV Vaccine (1 - 1-dose 75+ series) [facility] Comment on above: Postponed from 2017 (Declined at t his time) Start: 11-13-2025 Shingrix Vaccine (1 of 2) Shingrix Vaccine (1 of 2) [facility] Comment on above: Postponed from 03/31/2012 (Declined at t his time) Start: 10-12-2025 End: 10-12-2025 Patient encounter procedure 10/12/2025 9:00 AM EST Office Visit [facility] [address] [place] [address] Shaji Gaona MD [address] [place] [address] 12 month follow up [facility] Comment on above: 12 month follow up Start: 09-28-2025 Diabetic foot examination Diabetic Foot Exam [facility] Start: 06-07-2025 End: 06-07-2025 Patient encounter procedure Cardiology Comment on above: Cardiomyopathy, nonischemic (HCC) [I42.8 ]; Chronic systolic heart failure (HCC) [I50.22]; Controlled type 2 diabetes mellitus with microalbuminuria, without long-term current use of insulin (HCC) (HCC) [E11.29, R80.9] Start: 05-17-2025 End: 05-17-2025 Patient encounter procedure 05/17/2025 1:00 PM EDT Office Visit [facility] [address] [place] [address] Antony Espinoza MD [address] [place] [id number] physical [facility] [place] Comment on above: physical Start: 05-14-2025 Hemoglobin A1c measurement HbA1C [facility] Start: 04-09-2025 End: 04-09-2025 Patient encounter procedure Podiatry Comment on above: 3mth follow up Start: 01-08-2025 End: 01-08-2025 Patient encounter procedure Podiatry Comment on above: 3mth follow up Start: 01-01-2025 Glaucoma screening Dilated Retinal Exam [facility] Start: 12-26-2024 Hepatitis B surface antibody level LDL Cholesterol [facility] Start: 11-21-2024 Diabetic foot examination Diabetic Foot Exam [facility] Start: 11-18-2024 Advance Directive Discussion Advance Directive Discussion [facility] Start: 11-13-2024 End: 02-12-2025 Comprehensive metabolic 2000 panel - Serum or Plasma [facility] Work Phone: Comment on above: Expected: 11/13/2024, Expires: Start: 11-13-2024 End: 02-12-2025 [address] A[address]c in Blood [facility] Comment on above: Expected: 11/13/2024, Expires: Start: 11-13-2024 End: 02-12-2025 LIPID PANEL, NONFASTING [facility] Comment on above: Expected: 11/13/2024, Expires: Start: 11-13-2024 End: 02-12-2025 Microalbumin/Creatinine [Mass Ratio] in Urine [facility] Comment on above: Expected: 11/13/2024, Expires: Start: 11-13-2024 End: 02-12-2025 Urate [Mass/volume] in Serum or Plasma [facility] Comment on above: Expected: 11/13/2024, Expires: Start: 11-13-2024 End: 11-13-2024 Patient encounter procedure 11/13/2024 10:00 AM EST Office [facility] [address] [place] [address] Antony Espinoza MD [address] [place] [id number] Physical [facility] Comment on above: Physical Start: 10-06-2024 End: 10-06-2024 Patient encounter procedure 10/06/2024 10:00 AM EST Office Visit [facility] [place] [address] Shaji Gaona MD [address] [place] [address] 12 months [facility] Comment on above: 12 months Start: 10-02-2024 End: 10-02-2024 Patient encounter procedure 10/02/2024 10:45 AM EST Office Visit [facility] [address] [place] [address] Shaji Gaona MD [address] [place] [address] 12 months/ PVR [facility] Comment on above: 12 months/ PVR Start: 08-28-2024 End: 08-28-2024 Patient encounter procedure 08/28/2024 8:00 AM EDT Office Visit Podiatry [address] [place] [address] Lori Goodman [address] [facility] [place] [address] 3 month follow up diabetic foot care Podiatry Comment on above: 3 month follow up diabetic foot care Start: 07-19-2024 Covid-19 Vaccine ( season) Covid-19 Vaccine ( season) [facility] Start: 07-19-[address] [facility] Start: 05-26-2024 End: 05-26-2024 Patient encounter procedure 05/26/2024 8:00 AM EDT Office Visit Podiatry [address] [place] [address] Lori Goodman [address] [facility] [place] [address] 3 month follow up nail care Podiatry Comment on above: 3 month follow up nail care Start: 03-29-2024 BP CONTROLLED (<130/80) BP CONTROLLED (<130/80) [facility] Start: 03-27-2024 BP CONTROLLED (<130/80) BP CONTROLLED (<130/80) [facility] Start: 03-25-2024 ANNUAL PCP TEAM CHRONIC DISEASE VISIT ANNUAL PCP TEAM CHRONIC DISEASE VISIT [facility] Start: 03-25-2024 BP CONTROLLED (<130/80) BP CONTROLLED (<130/80) [facility] Start: 03-22-2024 BP CONTROLLED (<130/80) BP CONTROLLED (<130/80) [facility] Start: 03-19-2024 BP CONTROLLED (<130/80) BP CONTROLLED (<130/80) [facility] Start: 01-20-2024 End: 04-20-2024 CBC W Auto Differential panel - Blood CBC + DIFF Lab Routine Anemia, unspecified type Expected: 01/20/2024, Expires: 04/20/2024 [facility] Work Phone: Comment on above: Expected: 01/20/2024, Expires: Start: 01-20-2024 End: 04-20-2024 Comprehensive metabolic 2000 panel - Serum or Plasma COMP METABOLIC PANEL Lab Routine MOISES (acute kidney injury) (HCC) Expected: 01/20/2024, Expires: 04/20/2024 [facility] Work Phone: Comment on above: Expected: 01/20/2024, Expires: Start: 01-20-2024 End: 04-20-2024 Ferritin [Mass/volume] in Serum or Plasma FERRITIN BLD Lab Routine Anemia, unspecified type Expected: 01/20/2024, Expires: 04/20/2024 [facility] Work Phone: Comment on above: Expected: 01/20/2024, Expires: Start: 01-20-2024 End: 04-20-2024 Iron and Iron binding capacity panel - Serum or Plasma IRON + TIBC Lab Routine Anemia, unspecified type Expected: 01/20/2024, Expires: 04/20/2024 [facility] Work Phone: Comment on above: Expected: 01/20/2024, Expires: Start: 01-20-2024 End: 04-20-2024 Magnesium [Mass/volume] in Serum or Plasma MAGNESIUM BLD Lab Routine MOISES (acute kidney injury) (HCC) Anemia, unspecified type Expected: 01/20/2024, Expires: 04/20/2024 [facility] Work Phone: Comment on above: Expected: 01/20/2024, Expires: 4 Start: 11-26-2023 BP CONTROLLED (<130/80) BP CONTROLLED (<130/80) [facility] Start: 11-23-2023 BP CONTROLLED (<130/80) BP CONTROLLED (<130/80) [facility] Start: 11-20-2023 Hemoglobin A1c measurement HbA1C [facility] Start: 11-20-2023 Hemoglobin A1c/Hemoglobin.total in Blood HBA1C [facility] Start: 11-18-2023 Advance Directive Discussion Advance Directive Discussion [facility] Start: 11-18-2023 Behavioral Health Screening Behavioral Health Screening [facility] Start: 11-18-2023 Depression Assessment Depression Assessment [facility] Start: 11-15-2023 ANNUAL PCP TEAM CHRONIC DISEASE VISIT ANNUAL PCP TEAM CHRONIC DISEASE VISIT [facility] Start: 07-19-2023 Covid-19 Vaccine () Covid-19 Vacc[address] () [facility] Start: 07-19-[address] [facility] Start: 05-20-2023 End: 07-20-2023 Hemoglobin A1c in Blood [facility] Work Phone: Comment on above: Expected: 05/20/2023, Expires: 3 Start: 05-16-2023 Hemoglobin A1c/Hemoglobin.total in Blood HBA1C [facility] Start: 05-07-2023 Adult depression screening assessment DEPRESSION SCREENING [facility] Start: 05-07-2023 ANNUAL PCP TEAM CHRONIC DISEASE VISIT ANNUAL PCP TEAM CHRONIC DISEASE VISIT [facility] Start: 05-07-2023 Hepatitis B screening URINE ALBUMIN:CREATININE RATIO [facility] Start: 05-07-2023 Hepatitis B surface antibody level LDL CHOLESTEROL [facility] Start: 04-17-2023 3 comp foot exam completed DIABETIC FOOT EXAM [facility] Start: 03-08-2023 Patient discharge [facility] Start: 03-06-2023 Following clinical pathway protocol [facility] Start: 03-06-2023 Aspiration precautions [facility] Start: 03-06-2023 Assessment of risk of venous thromboembolism [facility] Start: 03-06-2023 Care regimes management [facility] Start: 03-06-2023 Fall prevention [facility] Start: 03-06-2023 Inhalation therapy procedure [facility] Start: 03-06-2023 Insertion of catheter into peripheral vein [facility] Start: 03-06-2023 Introduction of urinary catheter [facility] Start: 03-06-2023 Measuring intake and output [facility] Start: 03-06-2023 Oxygen therapy [facility] Start: 03-06-2023 Providing care according to standard [facility] Start: 03-06-2023 Provision of activity privileges [facility] Start: 03-06-2023 Referral to occupational therapist [facility] Start: 03-06-2023 Referral to service [facility] Start: 03-06-2023 Verification routine [facility] Start: 03-06-2023 End: 03-06-2023 [facility] Start: 03-06-2023 Viral nucleic acid assay [facility] Start: 03-06-2023 Admission procedure [facility] Start: 01-10-2023 Covid-19 Vaccine (6 - Pfizer risk series) Covid-19 Vaccine (6 - Pfizer risk series) [facility] Start: 12-28-2022 End: 12-27-2023 Basic metabolic 2000 panel - Serum or Plasma BASIC METABOLIC PNL Lab Routine Hyperparathyroidism (HCC) Expected: 12/28/2022, Expires: 12/27/2023 [facility] Work Phone: Comment on above: Expected: 12/28/2022, Expires: 4 Start: 12-28-2022 End: 12-27-2023 CBC W Auto Differential panel - Blood CBC + DIFF Lab Routine Hyperparathyroidism (HCC) Expected: 12/28/2022, Expires: 12/27/2023 [facility] Work Phone: Comment on above: Expected: 12/28/2022, Expires: 4 Start: 12-28-2022 End: 12-27-2023 SARS-CoV-2 (COVID-19) RNA [Presence] in Respiratory specimen by FLOYD with probe detection PRE-PROCEDURE & PRE-OPERATIVE COVID Microbiology Routine Hyperparathyroidism (HCC) Expected: 12/28/2022, Expires: 12/27/2023 [facility] Work Phone: Comment on above: Expected: 12/28/2022, Expires: 4 Start: 11-18-2022 ADVANCE DIRECTIVE DISCUSSION ADVANCE DIRECTIVE DISCUSSION [facility] Start: 11-18-2022 DEPRESSION ASSESSMENT DEPRESSION ASSESSMENT [facility] Start: 11-06-2022 ANNUAL PCP TEAM CHRONIC DISEASE VISIT ANNUAL PCP TEAM CHRONIC DISEASE VISIT [facility] Start: 11-06-2022 BP CONTROLLED (<130/80) BP CONTROLLED (<130/80) [facility] Start: 11-06-2022 Hemoglobin A1c/Hemoglobin.total in Blood HBA1C [facility] Start: 07-19-2022 Influenza vaccination INFLUENZA (#1) [facility] Start: 06-05-2022 End: 08-05-2022 25-hydroxyvitamin D3 [Mass/volume] in Serum or Plasma VITAMIN D 25 HYDROXY Lab Routine Hypercalcemia Hyperparathyroidism (HCC) Expected: 06/05/2022, Expires: 08/05/2022 [facility] Work Phone: Comment on above: Expected: 06/05/2022, Expires: 2 Start: 06-05-2022 End: 08-05-2022 CALCIUM 24 HR URINE CALCIUM 24 HR URINE Lab Routine Hypercalcemia Hyperparathyroidism (HCC) Expected: 06/05/2022, Expires: 08/05/2022 [facility] Work Phone: Comment on above: Expected: 06/05/2022, Expires: 2 Start: 06-05-2022 End: 08-05-2022 Calcium.ionized [Moles/volume] in Blood CALCIUM IONIZED BLOOD Lab Routine Hypercalcemia Hyperparathyroidism (HCC) Expected: 06/05/2022, Expires: 08/05/2022 [facility] Work Phone: Comment on above: Expected: 06/05/2022, Expires: 2 Start: 06-05-2022 End: 08-05-2022 Comprehensive metabolic 2000 panel - Serum or Plasma COMP METABOLIC PANEL Lab Routine Hypercalcemia Hyperparathyroidism (HCC) Expected: 06/05/2022, Expires: 08/05/2022 [facility] Work Phone: Comment on above: Expected: 06/05/2022, Expires: 2 Start: 06-05-2022 End: 08-05-2022 CREATININE 24 HR UR CREATININE 24 HR UR Lab Routine Hypercalcemia Hyperparathyroidism (HCC) Expected: 06/05/2022, Expires: 08/05/2022 [facility] Work Phone: Comment on above: Expected: 06/05/2022, Expires: 2 Start: 06-05-2022 End: 07-05-2023 Dxa bone density study 1/ sites axial skel DXA-AXIAL SKELETON Radiology Routine Hypercalcemia Hyperparathyroidism (HCC) Expected: 06/05/2022, Expires: 07/05/2023 [facility] Work Phone: Comment on above: Expected: 06/05/2022, Expires: 3 Start: 06-05-2022 End: 08-05-2022 Parathyrin.intact [Mass/volume] in Serum or Plasma PTH INTACT BLD Lab Routine Hypercalcemia Hyperparathyroidism (HCC) Expected: 06/05/2022, Expires: 08/05/2022 [facility] Work Phone: Comment on above: Expected: 06/05/2022, Expires: 2 Start: 06-05-2022 End: 08-05-2022 Phosphate [Mass/volume] in Serum or Plasma PHOSPHORUS INORGANIC Lab Routine Hypercalcemia Hyperparathyroidism (HCC) Expected: 06/05/2022, Expires: 08/05/2022 [facility] Work Phone: Comment on above: Expected: 06/05/2022, Expires: 2 Start: 05-07-2022 End: 05-07-2023 25-hydroxyvitamin D3 [Mass/volume] in Serum or Plasma [facility] Work Phone: Comment on above: Expected: 05/07/2022, Expires: 3 Start: 05-07-2022 End: 07-07-2022 ALBUMIN/CREAT RATIO RND UR [facility] Work Phone: Comment on above: Expected: 05/07/2022, Expires: 2 Start: 05-07-2022 End: 07-07-2022 Basic metabolic 2000 panel - Serum or Plasma [facility] Work Phone: Comment on above: Expected: 05/07/2022, Expires: 2 Start: 05-07-2022 End: 05-07-2023 Calcium.ionized [Moles/volume] in Blood [facility] Work Phone: Comment on above: Expected: 05/07/2022, Expires: 3 Start: 05-07-2022 End: 05-07-2023 CBC W Auto Differential panel - Blood [facility] Work Phone: Comment on above: Expected: 05/07/2022, Expires: 3 Start: 05-07-2022 End: 05-07-2023 Cobalamin (Vitamin B12) [Mass/volume] in Serum or Plasma [facility] Work Phone: Comment on above: Expected: 05/07/2022, Expires: 3 Start: 05-07-2022 End: 05-07-2023 Ferritin [Mass/volume] in Serum or Plasma [facility] Work Phone: Comment on above: Expected: 05/07/2022, Expires: 3 Start: 05-07-2022 End: 05-07-2023 Folate [Mass/volume] in Serum or Plasma [facility] Work Phone: Comment on above: Expected: 05/07/2022, Expires: 3 Start: 05-07-2022 End: 07-07-2022 Hemoglobin A1c in Blood [facility] Work Phone: Comment on above: Expected: 05/07/2022, Expires: 2 Start: 05-07-2022 Hemoglobin A1c/Hemoglobin.total in Blood HBA1C [facility] Start: 05-07-2022 End: 05-07-2023 Hemoglobin.gastrointestin al.lower [Presence] in Stool by Immunoassay FECAL OCCULT BLOOD TEST Lab Routine Anemia, unspecified type Expected: 05/07/2022, Expires: 05/07/2023 [facility] Work Phone: Comment on above: Expected: 05/07/2022, Expires: 3 Start: 05-07-2022 End: 05-07-2023 Iron and Iron binding capacity panel - Serum or Plasma [facility] Work Phone: Comment on above: Expected: 05/07/2022, Expires: 3 Start: 05-07-2022 End: 07-07-2022 Lipid 1996 panel - Serum or Plasma [facility] Work Phone: Comment on above: Expected: 05/07/2022, Expires: 2 Start: 05-07-2022 End: 05-07-2023 Parathyrin.intact [Mass/volume] in Serum or Plasma [facility] Work Phone: Comment on above: Expected: 05/07/2022, Expires: 3 Start: 01-15-2022 COVID-19 VACCINE (5 - Booster) COVID-19 VACCINE (5 - Booster) [facility] Start: 01-09-2022 3 comp foot exam completed DIABETIC FOOT EXAM [facility] Start: 01-09-2022 Adult depression screening assessment DEPRESSION SCREENING [facility] Start: 01-09-2022 Hepatitis B screening URINE ALBUMIN:CREATININE RATIO [facility] Start: 01-09-2022 Hepatitis B surface antibody level LDL CHOLESTEROL [facility] Start: 11-18-2021 ADVANCE DIRECTIVE DISCUSSION ADVANCE DIRECTIVE DISCUSSION [facility] Start: 11-18-2021 DEPRESSION ASSESSMENT DEPRESSION ASSESSMENT [facility] Start: 11-10-2021 COVID-19 VACCINE (5 - Booster) COVID-19 VACCINE (5 - Booster) [facility] Start: 03-10-2020 Hepatitis C antibody, confirmatory test DILATED RETINAL EXAM [facility] Start: 09-01-2019 BP CONTROLLED (<130/80) BP CONTROLLED (<130/80) [facility] Start: 2017 RSV Vaccine (1 - 1-dose 75+ series) RSV Vaccine (1 - 1-dose 75+ series) [facility] Start: 03-31-2012 SHINGRIX VACCINE (1 of 2) SHINGRIX VACCINE (1 of 2) [facility] Start: 03-31-2012 SHINGRIX VACCINE (2 of 3) SHINGRIX VACCINE (2 of 3) [facility] Start: 2002 RSV Vaccine (1 - 1-dose 60+ series) RSV Vaccine (1 - 1-dose 60+ series) [facility] Start: 1960 Depression Screening Depression Screening [facility] Bacteria identified in Urine by Culture URINE CULTURE Microbiology Routine Benign prostatic hyperplasia, unspecified whether lower urinary tract symptoms present 11/23/2022 9:35 AM EST [facility] Work Phone: Calcium.ionized [Mass/volume] in Serum or Plasma [facility] End: 03-22-2024 CATHETER INSERT-CRAIG CATHETER INSERT-CRAIG Procedures Routine Benign prostatic hyperplasia with urinary obstruction 99 Occurrences starting 03/22/2023 until 03/22/2024 [facility] Work Phone: Comment on above: 99 Occurrences starting 03/22/2023 until 03/22/2024 CATHETER INSERT-CRAIG CATHETER I NSERT-CRAIG Procedures Routine Benign prostatic hyperplasia with urinary obstruction Ordered: 03/29/2023 [facility] Work Phone: Comment on above: Ordered: 03/29/2023 Cystourethroscopy CYSTO.PANENDO Procedures Routine Benign prostatic hyperplasia with urinary obstruction Ordered: 2023 [facility] Work Phone: Comment on above: Ordered: 2023 End: 07-05-2023 Dxa bone density study 1/>sites appendiclr skel DXA-FOREARM SKELETON Radiology Routine Hypercalcemia Hyperparathyroidism (HCC) 1 Occurrences starting 06/05/2022 until 07/05/2023 [facility] Work Phone: Comment on above: 1 Occurrences starting 06/05/2022 until 07/05/2023 End: 12-27-2023 ECG COMPLETE ECG COMPLETE ECG Routine Hyperparathyroidism (HCC) 1 Occurrences starting 12/28/2022 until 12/27/2023 [facility] Work Phone: Comment on above: 1 Occurrences starting 12/28/2022 until 12/27/2023 CRAIG - DISCONTINUE CRAIG - DISC ONTINUE Procedures Routine Benign prostatic hyperplasia with urinary obstruction Ordered: 03/29/2023 [facility] Work Phone: Comment on above: Ordered: 03/29/2023 Insj non-ndwellg jeremi dder catheter INSERT,NON-INDW BLADDER CATH Procedures Routine Benign prostatic hyperplasia with urinary obstruction Ordered: 2023 [facility] Work Phone: Comment on above: Ordered: 2023 End: 01-12-2024 Parathyroid imaging w/tomographic spect & ct NM PARATHYROID W SPECT/CT Radiology Routine Hypercalcemia 1 Occurrences starting 12/13/2022 until 01/12/2024 [facility] Work Phone: Comment on above: 1 Occurrences starting 12/13/2022 until 01/12/2024 End: 12-27-2022 Parathyroid imaging w/tomographic spect & ct [facility] Work Phone: Comment on above: 1 Occurrences starting 12/27/2022 until 12/27/2022 Patient referral [facility] Work Phone: POST VOID RESIDUAL POST VOID RES IDUAL Procedures Routine Benign prostatic hyperplasia, unspecified whether lower urinary tract symptoms present Ordered: 11/23/2022 [facility] Work Phone: Comment on above: Ordered: 11/23/2022 REFER FOR ADMIT INTERVIEW REFER FOR ADMIT INTERVIEW Procedures Routine Hyperparathyroidism (HCC) Ordered: 12/28/2022 [facility] Work Phone: Comment on above: Ordered: 12/28/2022 SARS-CoV-2 (COVID-19 ) Ag [Presence] in Respiratory specimen by Rapid immunoassay [facility] TRUS ONLY TRUS ONLY Proced ures Routine Benign prostatic hyperplasia with urinary obstruction Ordered: 2023 [facility] Work Phone: Comment on above: Ordered: 2023 End: 05-07-2023 US CAROTID [facility]ER[facility] US CAROTID ARTERIES [facility] Vascular Lab Routine Arteriosclerosis of both carotid arteries 1 Occurrences starting 05/07/2022 until 05/07/2023 [facility] Work Phone: Comment on above: 1 Occurrences starting 05/07/2022 until 05/07/2023 US THYROID/PARATHYRO ID (POC) ENDO USE ONLY US THYROID/PARATHYROID (POC) ENDO USE ONLY Imaging Diagnostic Routine Hyperparathyroidism (HCC) Ordered: 02/26/2023 [facility] Work Phone: Comment on above: Ordered: 02/26/2023 VOIDING TRIAL PROTOCOL VOIDING T RIAL PROTOCOL Procedures Routine Benign prostatic hyperplasia with urinary obstruction Ordered: 03/22/2023 [facility] Work Phone: Comment on above: Ordered: 03/22/2023 VOIDING TRIAL PROTOCOL VOIDING T RIAL PROTOCOL Procedures Routine Benign prostatic hyperplasia with urinary obstruction Ordered: 03/29/2023 [facility] Work Phone: Comment on above: Ordered: 03/29/2023 [facility] Immunizations Immunization Date Immunization Notes Care Provider [facility] 11-13-2024 influenza, high dose seasonal, preservative-free Antony Espinoza MD Work Phone: [facility] 11-15-2022 COVID-19 booster vaccine, age 12+ yr, bivalent (PFIZER-BIONTECH) Lorenzo Carballo PA-C Work Phone: [facility] 11-15-2022 influenza, high dose seasonal, preservative-free Dr. Antony Espinoza Work Phone: [facility] 11-15-2022 influenza, high-dose , quadrivalent vaccine (FLUZONE HIGH DOSE QUADRIVALENT) Lorenzo Carballo PA-C Work Phone: [facility] 11-15-2022 influenza virus vacc ine, unspecified formulation Antony Espinoza MD Work Phone: [facility] 09-15-2021 Covid (Pfizer) Dr. Antony littlejohn Work Phone: [facility] 08-30-2021 influenza, high dose seasonal, preservative-free Antony Espinoza MD Work Phone: [facility] 02-04-2021 Covid (Pfizer) [facility] 01-18-2021 Covid (Pfizer) Dr. Antony littlejohn Work Phone: [facility] 12-28-2020 Covid (Pfizer) Dr. Antony littlejohn Work Phone: [facility] 08-24-2020 influenza, high-dose , quadrivalent vaccine (FLUZONE HIGH DOSE QUADRIVALENT) Antony Espinoza MD Work Phone: [facility] 09-07-2019 influenza, high dose seasonal, preservative-free Antony Espinoza MD Work Phone: [facility] 08-26-2018 influenza, high dose seasonal, preservative-free Antony Espinoza MD Work Phone: [facility] 08-24-2018 influenza, seasonal, injectable [facility] 08-24-2018 influenza, seasonal, injectable, preservative free Antony Espinoza MD Work Phone: [facility] 11-28-2017 tetanus and diphther ia toxoids, adsorbed, preservative free, for adult use (2 Lf of tetanus toxoid and 2 Lf of diphtheria toxoid) Antony Espinoza MD Work Phone: [facility] 11-28-2017 tetanus toxoid, redu donato diphtheria toxoid, and acellular pertussis vaccine, adsorbed [facility] 08-30-2016 tetanus and diphther ia toxoids, adsorbed, preservative free, for adult use (2 Lf of tetanus toxoid and 2 Lf of diphtheria toxoid) Dr. Antony Espinoza Work Phone: [facility] 08-30-2016 tetanus and diphther ia toxoids, adsorbed, preservative free, for adult use (5 Lf of tetanus toxoid and 2 Lf of diphtheria toxoid) Antony Espinoza MD Work Phone: [facility] 11-29-2015 pneumococcal polysaccharide vaccine, 23 valent Antony Espinoza MD Work Phone: [facility] Work Phone: 11-29-2015 pneumococcal vaccine , unspecified formulation [facility] 09-13-2015 pneumococcal conjuga te vaccine, 13 valent Antony Espinoza MD Work Phone: [facility] 08-24-2015 Influenza virus vaccine [facility] 08-24-2015 influenza, seasonal, injectable, preservative free Antony Espinoza MD Work Phone: [facility] 02-04-2012 pneumococcal polysaccharide vaccine, 23 valent Antony Espinoza MD Work Phone: [facility] 02-04-2012 zoster vaccine, live Antony Espinoza MD Work Phone: [facility] 08-31-2010 influenza virus vacc ine, whole virus Antony Espinoza MD Work Phone: [facility] 09-13-2006 tetanus toxoid, redu donato diphtheria toxoid, and acellular pertussis vaccine, adsorbed Antony Espinoza MD Work Phone: [facility] Work Phone: Payers Date Payer Category Payer Self-pay [id number] 2021 Medicare MMO MEDICARE MMO MEDADVANTAGE [id number] 2021-Present [phone] [address] [place] [address] [facility] [id number] 2021 Medicare (Managed Care) MMO [employer]MER DVANTAGE HMO [id number] 2017 Unknown [id number] 2007 Medicare [id number] Private Health Insurance [employer] [id number] Unknown [id number] Unknown [id number] Unknown [id number] Social History Date Type Detail Facility Start: 06-03-2018 End: 10-02-2024 Tobacco smoking status NHIS Ex-smoker [facility] Work Phone: Start: 05-21-1979 End: 05-21-1999 History of tobacco use Current smoker [facility] Work Phone: Start: 05-21-1979 End: 05-21-1999 History of tobacco use Cigarette Smoker [facility] Work Phone: Start: 11-06-2021 End: 01-08-2025 Alcohol intake Current drinker of alcohol (finding) [facility] Start: 06-03-2018 History SDOH Alcohol Comment occasionally [facility] Start: 1940 Sex Assigned At Not on file [facility] Start: 08-27-2021 End: 07-27-2022 Exposure to SARS-CoV-2 (event) Not sure [facility] Start: 06-03-2018 End: 03-21-2023 Cigarettes smoked current (pack per day) - Reported 0.5 [facility] Work Phone: Start: 06-03-2018 End: 10-02-2024 Tobacco use and exposure Smokeless tobacco non-user [facility] Start: 03-06-2023 End: 03-06-2023 Tobacco smoking status NHIS Unknown if ever smoked [facility] Start: 08-22-2018 None [facility] Start: 08-22-2018 Spouse/ Signif icant Other [facility] Start: 08-28-2018 Non-smoker [facility] Start: 1940 Sex Assigned At Male [facility] Start: 03-12-2023 History SDOH Financial 4 [facility] Start: 03-12-2023 History SDOH Food Worry 1 [facility] Start: 03-12-2023 History SDOH Transpo rt Med 2 [facility] Start: 03-21-2023 End: 05-23-[address] [facility] Work Phone: How hard is it for y ou to pay for the very basics like food, housing, medical care, and heating Not very hard [facility] Work Phone: Adult Depression Screening Assessment 0 [facility] Work Phone: (I/We) worried whequin er (my/our) food would run out before (I/we) got money to buy more. Never true [facility] Work Phone: In the past 12 month s, was there a time when you were not able to pay the mortgage or rent on time? No [facility] Work Phone: Medical Equipment Procedure Code [...] rge Polypropylene Surgical Nonabsorbable Plug Knitted - [id number] Start: 08-29-2020 Goals Date Patient Goal Desired Activity /State Functional Status Date Assessment Result Facility 05-25-2023 Are you deaf, or do you have serious difficulty hearing No 05/25/2023 6:03 PM Lillian Sanchez RN No [facility] 05-25-2023 Are you blind, or do you have serious difficulty seeing, even when wearing glasses No 05/25/2023 6:03 PM Lillian Sanchez RN No [facility] 05-25-2023 Do you have serious difficulty walking or climbing stairs No 05/25/2023 6:03 PM Lillian Sanchez, TRACY No [facility] 05-25-2023 Do you have difficul ty dressing or bathing No 05/25/2023 6:03 PM Lillian Sanchez, TRACY No [facility] 05-25-2023 Because of a physica l, mental, or emotional condition, do you have difficulty doing errands alone such as visiting a physician's office or shopping Yes 05/25/2023 6:03 PM Lillian Sanchez, TRACY Yes [facility] 03-08-2023 Functional status Ambulates;Bath room Privilege [facility] Work Phone: Mental Status Date Assessment Result Facility 05-25-2023 Because of a physica l, mental, or emotional condition, do you have serious difficulty concentrating, remembering, or making decisions Yes 05/25/2023 6:03 PM Lillian Sanchez RN Yes 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;Place;Time [facility] Work Phone: 03-07-2023 Cognitive function Voice/Name [facility] Work Phone: 03-06-2023 Cognitive function Level Of Cons ciousness Awake;Alert;Appropriate;Fol lows Commands [facility] Work Phone: Clinical Notes 07-28-2020 to 04-09-2025 Telephone Encounter - Shakila Quiroga APRN.[facility] - 03/08/2025 11:49 AM EDTTelephone Encounter - Shakila Quiroga APRN.CNP - 03/08/2025 11:49 AM EDTTLori davila - 01/08/2025 9:20 AM EST Note Date & Type Note Facility 04-09-2025 Note HNO ID: [id number] Author: LORI GOODMAN, ? Service: ? Author [...] Objective: [facility] Vasc: DP and PT pulses are palpable [...] RTC in 3-4 months. Lori Goodman DPM [facility] 04-09-2025 Note HNO ID: [id number] Author: PENELOPE LOPEZ MA Service: ? Author Type: Industrial Energy Engineer Type: Progress Notes Filed: 04/09/2025 09:23 Note Text: AMB ROOMING INTAKE FLOWSHEET DATA Risk Screening Do you have concerns about personal safety or safety in the home?: No [facility] 03-08-2025 Telephone encounter Note Chart reviewed. Doxazosin refilled. Shakila Quiroga APRN.CNP [facility] 03-08-2025 Miscellaneous Notes Chart reviewed. Doxazosin refilled. Shakila Quiroga APRN.CNP Pharmacy faxed requesting the following refill. Requested Prescriptions Pending Prescriptions Disp Refills doxazosin (CARDURA) 8 mg tablet 90 tablet 3 Sig: Take 1 tablet by mouth daily at bedtime. Dr. Gaona is not in the office. Please review medication request. Patient last appointment: 10/02/2024 Patient Phone numbers: [phone] (home) Request is for script(s) to be escript to pharmacy. Niya Doran MA documented in this encounter [facility] 03-08-2025 Telephone encounter Note Pharmacy faxed requesting the following refill. Requested Prescriptions Pending Prescriptions Disp Refills doxazosin (CARDURA) 8 mg tablet 90 tablet 3 Sig: Take 1 tablet by mouth daily at bedtime. Dr. Gaona is not in the office. Please review medication request. Patient last appointment: 10/02/2024 Patient Phone numbers: [phone] (home) Request is for script(s) to be escript to pharmacy. Niya Doran MA [facility] 01-29-2025 Telephone encounter Note Last appointment [...] day. Please review and advise. Susannah Long [facility] 01-29-2025 Miscellaneous Notes Last appointment 11/13/2024 [...] advise. Susannah Long documented in this encounter [facility] 01-22-2025 Telephone encounter Note Prescription Refill [...] Angie Sepulveda January 22, 2025 1:[address] [facility] 01-22-2025 Miscellaneous Notes Prescription Refill Information [...] 2025 1:59 PM documented in this encounter [facility] 01-08-2025 Note HNO ID: [id number] Author: LORI GOODMAN, ? Service: ? Author [...] RTC in 3-4 months. Lori Goodman DPM [facility] 01-08-2025 History of Presen t illness Narrative [...] Lashay Brooke LPN documented in this encounter [facility] 01-08-2025 Instructions Lori Goodman - 01/08/2025 [...] (or decreased sensation in your feet) a contract engineer should always cut your toenails. Be Careful [...] Go to your health care provider or contract engineer to treat these conditions. documented in this encounter [facility] 01-08-2025 Note HNO ID: [id number] Author: LASHAY BROOKE LPN Service: ? Author [...] Up, Diabetic Foot Care Lashay Brooke LPN [facility] 11-17-2024 Telephone encounter Note Patient notified of results and provider's instructions. Patient verbalizes understanding. Mirlande Keyes RN [facility] 11-17-2024 Miscellaneous Notes Patient notified of results and provider's instructions. Patient verbalizes understanding. Mirlande Keyes RN Left message for to call and speak with nurse. His kidney function is better but still pretty low. Given his protein in his urine. Recommend he follow with nephrology documented in this encounter [facility] 11-16-2024 Telephone encounter Note Left message for to call and speak with nurse. [facility] 11-16-2024 Telephone encounter Note His kidney function is better but still pretty low. Given his protein in his urine. Recommend he follow with nephrology [facility] 11-13-2024 Instructions Antony Espinoza MD - 11/13/2024 10:39 AM EST No more driving-per Dr Espinoza documented in this encounter [facility] 11-13-2024 Note HNO ID: [id number] Author: ANTONY ESPINOZA MD Service: ? Author [...] Lungs: Lungs cl (more content not included)... [facility] 11-13-2024 History of Presen t illness Narrative [...] complication, without long-term current use of insulin ([facility]) 07/24/2016 Degenerative disc disease, cervical 12/09/2015 Depression Diabetes mellitus ([facility]) 07/14/2010 Elevated alkaline phosphatase level 01/10/2021 01/09/21 alk phos 142 Gout 08/25/2012 High cholesterol History of splenectomy 02/07/2015 Hypertension Inguinal hernia 04/08/2014 LBBB (left bundle branch block) Leukemia in remission ([facility]) Lumbar disc disease with radiculopathy 04/06/2013 Mental disorder Mild cognitive impairment with memory loss 09/13/2015 Retention of urine Snoring spinal stenosis Vitreous hemorrhage ([facility]) 2015 left eye PAST SURGICAL HISTORY Procedure [...] DOSE, TRIVALENT (FLUZONE HIGH-DOSE) 3. Atherosclerosis of [place] coronary artery of [place] heart without angina pectoris - ICD9: [...] months and prn. documented in this encounter [facility] 10-14-2024 Telephone encounter Note Pt scheduled for Physical 11-13-24. Christina Burgess LPN [facility] 10-14-2024 Miscellaneous Notes Pt scheduled for [...] 2024 10:35 AM documented in this encounter [facility] 10-14-2024 Telephone encounter Note Needs follow up with one of us [facility] 10-14-2024 Telephone encounter Note Prescription Refill [...] Dorinda Long October 14, 2024 10:[address] [facility] Work Phone: 10-02-2024 Instructions Shaji Gaona MD - 10/02/2024 10:44 AM EST INSTRUCTIONS FROM DR. GAONA: make sure to hydrate well I will see you in 12 months documented in this encounter [facility] 10-02-2024 Nurse Note patient declined diesel electrician [facility] 10-02-2024 Nurse Note patient declined diesel electrician documented in this encounter [facility] 10-02-2024 Note HNO ID: [id number] Author: SHAJI GAONA MD Service: ? Author [...] Proscar 5 mg June 29, 2015-seen by [facility] urology- 1 year follow-up previous prostate biopsy 1 year ago was negative. Feels fantastic. No nausea vomiting diarrhea fevers chills or weight loss. No blood pressures consistent with blood in urine. His P's XE Edita 4.2.8. Happy with his clinical status. I reviewed his previous negative biopsy. RADS: May 23, [id number] 2023-Cystoscopy/ultrasound prostate-volume 37.7 cc without enlarged middle [...] learn intermittent catheterization May 10, 2014-ultrasound/biopsy of prostate-[facility] urology--- Volume 57 cc Creatinine Date Value Ref Range Status 12/26/2023 3.41 (H) 0.73 - 1.22 mg/dL Final PSA (ng/mL) Date Value 01/09/2021 4.43 01/12/2019 3.30 07/18/2017 3.05 08/21/2016 2.69 04/19/2016 2.80 06/13/2015 2.83 02/02/2015 2.72 04/08/2014 3.60 01/12/2013 3.00 12/14/2006 2.09 PSA Scree (more content not included)... [facility] 10-02-2024 History of Presen t illness Narrative [...] Proscar 5 mg June 29, 2015-seen by [facility] urology- 1 year follow-up previous prostate biopsy 1 year ago was negative. Feels fantastic. No nausea vomiting diarrhea fevers chills or weight loss. No blood pressures consistent with blood in urine. His P's XE [place]ita 4.2.8. Happy with his clinical status. I reviewed his previous negative biopsy. RADS: May 23, [id number] 2023-Cystoscopy/ultrasound prostate-volume 37.7 cc without enlarged middle [...] learn intermittent catheterization May 10, 2014-ultrasound/biopsy of prostate-[facility] urology--- Volume 57 cc Creatinine Date Value [...] Date Value 03/10/2023 Negative 01/06/2010 neg Specific [place], Ur (no units) Date Value 03/10/2023 1.010 [...] complication, without long-term current use of insulin ([facility]) 07/24/2016 Degenerative disc disease, cervical 12/09/2015 Depression Diabetes mellitus ([facility]) 07/14/2010 Elevated alkaline phosphatase level 01/10/2021 01/09/21 alk phos 142 Gout 08/25/2012 High cholesterol History of splenectomy 02/07/2015 Hypertension Inguinal hernia 04/08/2014 LBBB (left bundle branch block) Leukemia in remission ([facility]) Lumbar disc disease with radiculopathy 04/06/2013 Mental disorder Mild cognitive impairment with memory loss 09/13/2015 Retention of urine Snoring spinal stenosis Vitreous hemorrhage ([facility]) 2015 left eye FAMILY HISTORY Problem Relation [...] needed. (Patient not taking: Reported on 12/09/2023) zjdqwgv-bsntstsao-xabrtve D3 (CALCIUM 500+D) 500 mg-5 mcg (200 [...] discussed with the Patient or Patient's Authorized Engineer Conductor. As applicable, any other physician, advance practice provider, medical student, or other health professional student that will be observing or involved in the sensitive examination for educational or training purposes was discussed with the Patient or Authorized Engineer Conductor. The Patient or Authorized Engineer Conductor has agreed to proceed with the sensitive examination. (Sensitive examination includes inspection and/or palpation of the breasts, pelvis, prostate and anorectal regions) Please note: This note has been produced using speech recognition software and may contain errors related to that system including grammar, punctuation, spelling, gender and words and phrases that may be inappropriate. documented in this encounter [facility] 09-28-2024 Note HNO ID: [id number] Author: LORI GOODMAN, ? Service: ? Author [...] RTC in 3-4 months. Lori Goodman DPM [facility] 09-28-2024 History of Presen t illness Narrative [...] Objective: Patient presents to clinic ambulating in [facility] Vasc: DP and PT pulses are [...] Lashay Brooke LPN documented in this encounter [facility] 09-28-2024 Note HNO ID: [id number] Author: LASHAY BROOKE LPN Service: ? Author Type: LICENSED NURSE Type: Progress Notes Filed: 09/28/2024 22:22 Note Text: AMB ROOMING INTAKE FLOWSHEET DATA Patient presents with: Left Foot - Established Patient, Follow Up, Diabetic Foot Care Right Foot - Established Patient, Follow Up, Diabetic Foot Care Lashay Brooke LPN [facility] 06-30-2024 Telephone encounter Note Left detailed message on voicemail to return call and schedule. [facility] 06-30-2024 Miscellaneous Notes Left detailed message [...] 2024 2:15 PM documented in this encounter [facility] 06-30-2024 Telephone encounter Note Due for check up with myself, Bisi or Felisa [facility] 06-30-2024 Telephone encounter Note Patient requesting medication that is : losartan (COZAAR) 50 mg tablet ( Last office visit: 05-20-24 Future appt scheduled: No PHARMACY: [facility] 06-30-2024 Miscellaneous Notes Patient requesting medication that is : losartan (COZAAR) 50 mg tablet ( Last office visit: 05-20-24 Future appt scheduled: No PHARMACY: [facility] documented in this encounter [facility] 06-30-2024 Telephone encounter Note Prescription Refill [...] Skye Arnold June 30, 2024 2:[address] [facility] 05-26-2024 Note HNO ID: [id number] Author: LORI GOODMAN, ? Service: ? Author [...] RTC in 3-4 months. Lori Goodman DPM [facility] 05-26-2024 History of Presen t illness Narrative [...] presents for follow up diabetic foot/nail care. [facility] 02/20/[address] encounter [facility] 05-26-2024 Note HNO ID: [id number] Author: PRABHA MAYO RN Service: ? Author Type: Registered Nurse Type: Progress Notes Filed: 05/26/2024 08:25 Note Text: Patient presents with: Left Foot - Established Patient, Follow Up, Diabetic Foot Care Right Foot - Established Patient, Follow Up, Diabetic Foot Care Patient presents for follow up diabetic foot/nail care. [facility] 02/20/24 [facility] 03-24-2024 Telephone encounter Note Left message for patient spouse to call back and speak to NURSE on TRIAGE. Please verify what med needs refilled? Patient has never been on metformin or ever had diabetic dx. Spouse (leander) is on metfromin, is she looking at her own rx and needing refill for herself? Luzmaria Jaime MA [facility] 03-24-2024 Miscellaneous Notes Left message for [...] Pharmacy [facility] documented in this encounter [facility] 03-24-2024 Telephone encounter Note Patient has [...] found Please advise. Thank you. Skye Arnold. [facility] 03-24-2024 Miscellaneous Notes Patient has been [...] you. Skye Arnold. documented in this encounter [facility] 03-24-2024 Telephone encounter Note Patient's spouse requesting metFORMIN (GLUCOPHAGE) 500 mg tablet which is no longer on patient list. Pharmacy [facility] 03-10-2024 Telephone encounter Note SAMANTHA: 10/07/2023 NOV: 10/06/2024 Patient phones requesting refills as follows: Requested Prescriptions Pending Prescriptions Disp Refills doxazosin (CARDURA) 8 mg tablet [Pharmacy Med Name: DOXAZOSIN MESYLATE 8 MG TAB] 90 tablet 3 Sig: take 1 tablet by mouth at bedtime Please review and advise. Dayron Torres LPN [facility] 03-10-2024 Miscellaneous Notes SAMANTHA: 10/07/2023 NOV: 10/06/2024 Patient phones requesting refills as follows: Requested Prescriptions Pending Prescriptions Disp Refills doxazosin (CARDURA) 8 mg tablet [Pharmacy Med Name: DOXAZOSIN MESYLATE 8 MG TAB] 90 tablet 3 Sig: take 1 tablet by mouth at bedtime Please review and advise. Dayron Torres LPN documented in this encounter [facility] 02-20-2024 History of Presen t illness [...] Lashay Brooke LPN documented in this encounter [facility] 02-20-2024 Instructions [place] Lori - 02/20/2024 [...] (or decreased sensation in your feet) a contract engineer should always cut your toenails. Be Careful [...] Go to your health care provider or contract engineer to treat these conditions. documented in this encounter [facility] 01-20-2024 Miscellaneous Notes Left message for [...] Perlita Maurice, RN documented in this encounter [facility] 01-01-2024 History of Presen t illness [...] 2024 8:49 AM documented in this encounter [facility] 01-01-2024 Instructions Dmitry Painting MD - 01/01/2024 8:49 AM EST Images from the original note were not included. documented in this encounter [facility] 10-07-2023 Note HNO ID: [id number] Author: Shaji Gaona MD Service: ? Author [...] Proscar 5 mg June 29, 2015-seen by [facility] urology- 1 year follow-up previous prostate biopsy 1 year ago was negative. Feels fantastic. No nausea vomiting diarrhea fevers chills or weight loss. No blood pressures consistent with blood in urine. His P's XE Edita 4.2.8. Happy with his clinical status. I reviewed his previous negative biopsy. RADS: May 23, [id number]-mgmfpkppf-benign 2023-Cystoscopy/ultrasound prostate-volume 37.7 cc without enlarged middle [...] learn intermittent catheterization May 10, 2014-ultrasound/biopsy of prostate-[facility] urology--- Volume 57 cc Creatinine Date Value [...] Urine (no units (more content not included)... [facility] 08-01-2023 Miscellaneous Notes Patient has been identified by name and date of : Yes Requested Prescriptions Pending Prescriptions Disp Refills memantine (NAMENDA) 10 mg tablet 90 tablet 3 Sig: Take 1 tablet by mouth twice daily. SAMANTHA:05-20-23 No appt scheduled. RX INSTRUCTIONS: Patient aware RX will be sent to pharmacy. No need to notify patient. Andie Gonzalez documented in this encounter [facility] 05-30-2023 Nurse Note Patient is back in for a PVR after having his catheter removed this AM for a voiding trial. Patient stated that he was able to urinate multiple times without difficulty. PVR result was - 98 ml Patient instructed that if he has any sudden pain or inability to urinate he is to contact this office ([phone]) during the hours of 08:00 to 16:00. If after those hours, to go to the emergency room. Patient voiced understanding of all instructions. Prabha Orellana RN documented in this encounter [facility] 05-30-2023 Nurse Note Patient presents for [...] Prabha Orellana RN documented in this encounter [facility] 05-27-2023 Nurse Note Pt in office [...] Prabha Orellana RN documented in this encounter [facility] 05-20-2023 Miscellaneous Notes Clearance form scanned into pt's chart. Bianka Gan Dr. Paige signed form and it was faxed back. Christina Jain Bianka, sugar cane planter machine operator from Dr. Gaona's urology called stating pt's PCP would like cardiac clearance, if possible, before pt has TURP on . Bianka has already faxed form to [facility] office and was told additionally to send to [facility] office. RN informed Bianka that Dr. Holly is not in the office today. Bianka can be reached at [phone] for further discussion. Thank you. Janna Philippe RN Form received. Holding for appointment. Bianka from Dr. Gaona's office in Urology calling and states she will be faxing over a medical clearance form to PCP office for review and completion at pt's 05/[address] Espinoza, if able. Pt is scheduled to have TURP completed 05/23/23. Please contact Bianka or patient if any questions or for information. Milagro Sheriff RN documented in this encounter [facility] 05-20-2023 History of Presen t illness Narrative Patient presents with: Medical Clearance HPI: Patient presents today for office visit for pre-op clearance. He is scheduled for a Cystoscopy, TURP at [facility] on 05/23/[address] Gaona. Seeing [...] tablet by mouth every hour as needed. emjldan-bzbraspxr-dnrxhms D3 (CALCIUM 500+D) 500 mg-5 mcg (200 [...] complication, without long-term current use of insulin ([facility]) 07/24/2016 Degenerative disc disease, cervical 12/09/2015 Depression Diabetes mellitus ([facility]) 07/14/2010 Elevated alkaline phosphatase level 01/10/2021 01/09/21 alk phos 142 Gout 08/25/2012 High cholesterol History of splenectomy 02/07/2015 Hypertension Inguinal hernia 04/08/2014 LBBB (left bundle branch block) Leukemia in remission ([facility]) Lumbar disc disease with radiculopathy 04/06/2013 Mental [...] ICD10: G31.84 - stable. 4. Atherosclerosis of [place] coronary artery of [place] heart without angina pectoris - ICD9: [...] Antony Espinoza MD documented in this encounter [facility] 05-15-2023 Miscellaneous Notes Pt's Kyleigh notified. Bianka Gan It is safe He will be fine Patient called stating patients sees hematology oncology for history of leukemia. ([phone])has order an iron infusion for next week due to iron deficiency. Patients is concerned because he is scheduled for surgery with you next week and was told he had to stop iron tablets for surgery. Is it safe for iron infusion in the same week of surgery? documented in this encounter [facility] 05-15-2023 Miscellaneous Notes Pt's Kyleigh notified. Bianka Gan Inform that + Sent bactrim to pharm for him to start at least by fri documented in this encounter [facility] 05-10-2023 History and physical note Images [...] difficulty with urination. He was admitted to [facility] due to weakness when he was [...] by mouth every hour as needed. Yes lbhyidn-kaqbosgoh-rlnyqte D3 (CALCIUM 500+D) 500 mg-5 mcg (200 [...] 486 QTC Calculation (Bazett) 464 Calculated P Fowler 38 Calculated R Fowler -31 Calculated T Fowler 137 Impression SINUS BRADYCARDIA LEFT AXIS DEVIATION COMPLETE LEFT BUNDLE BRANCH BLOCK ABNORMAL ECG Confirmed by DAYRON HUYNH DO ([id number]) on 02/20/2023 4:19:35 PM Recent Results (from the past 20862 hour(s)) ECHO Collection Time: 11/21/21 1:46 PM [...] and urine culture ordered in [facility] per surgeon. Patient's given sterile urine specimen cup and biohazard bag and will get urine specimen at home and take to [facility] lab due to patient needing to self catheterize. states that they will complete this on Saturday05/13/23 when patient has another appointment at [facility] that day. Implantable Devices: bilateral IOLs, and hardware in neck and back Assessment/Plan BPH with obstruction/lower urinary tract symptoms [N40.1, N13.8] Retention of urine, unspecified [R33.9] PLAN Planned Procedure: Procedure(s): TURP COMPLETE (N/A) CYSTOSCOPY (N/A) I spent a total of 50 minutes on the date of the service which included preparing to see the patient, nqnk-es-tphr patient care, completing clinical documentation, obtaining and/or [...] AM PAGER/CONTACT #: documented in this encounter [facility] 05-07-2023 Instructions Melissa Mendez APRN.CNP - 05/07/2023 2:45 PM EDT PATIENT PREOPERATIVE INSTRUCTIONS Your surgeon has scheduled for your procedure at this surgery center: [facility]: [phone], [address] [id number] Please enter through the main entrance and [...] or the morning of surgery. Use the [employer] body wash supplied to you along with [...] surgery. - YOU MUST HAVE A RESPONSIBLE SOLID CENTER WINDER TAKE YOU HOME. A FLOOR CLEANER, CAB OR UBER SOLID CENTER WINDER CANNOT BE MADE A RESPONSIBLE SOLID CENTER WINDER. - You cannot stay in a hotel [...] needed. Hold 7 days prior to surgery elqxbwb-gwgmjtjur-wntzjpx D3 (CALCIUM 500+D) 500 mg-5 mcg (200 [...] Mendez APRN.CNP 05/10/[address] [facility] 05-07-2023 History of Past i llness [...] of this encounter (statuses as of 05/20/2023) [facility] History of Past illness Narrative* Problem [...] of this encounter (statuses as of 05/21/2023) [facility] History of Past illness Narrative* Problem [...] of this encounter (statuses as of 05/28/2023) [facility] History of Past illness Narrative* Problem [...] of this encounter (statuses as of 05/30/2023) [facility] History of Past illness Narrative* Problem [...] of this encounter (statuses as of 05/31/2023) [facility] History of Past illness Narrative* Problem [...] of this encounter (statuses as of 08/01/2023) [facility] History of Past illness Narrative* Problem [...] of this encounter (statuses as of 01/01/2024) [facility] History of Past illness Narrative* Problem [...] of this encounter (statuses as of 01/20/2024) [facility] History of Past illness Narrative* Problem [...] of this encounter (statuses as of 02/20/2024) [facility] Miscellaneous Notes* Telephone Encounter - Bianka Gan - 05/03/2023 2:05 PM EDT Pt is scheduled for Cysto, TURP with Dr Gaona at [facility] on 05/23/23 @ 11:45 (9:45 arrival). PAT and labs on 05/10/23 @ 8:00 at [facility]. Medical clearance request faxed to pt's pcp Dr Antony Espinoza, f.[phone], on 05/03/23. 1 week pvr check with nurse at [place] on 05/30/23 @ 8:30. [address] Gaona on 06/07/23 @ 9:30. Pt and given date, time, prep and arrival instructions in person on 05/03/23. Written info given also. Bianka Gan documented in [facility]St[facility] Instructions* Patient Instructions* Shaji Gaona MD [...] prostate cancer in its early stages, the [place] [employer] and the [place] [employer] Society recommend a screening every year for men ages 50 to 70. They further recommend that men who are at high risk -- such as -[place] men and men with a family history [...] and hemostasis is achieved with electrocautery. Graphic 22553 Version 1.0 2020 [employer]. and/or its affiliates. All Rights Reserved. documented in this encounterSt. [facility] History of Present illness Narrative* Shaji [...] Proscar 5 mg June 29, 2015-seen by [facility] urology- 1 year follow-up previous prostate biopsy [...] learn intermittent catheterization May 10, 2014-ultrasound/biopsy of prostate-[facility] urology--- Volume 57 cc Creatinine Date Value [...] Date Value 03/10/2023 Negative 01/06/2010 neg Specific [place], Ur (no units) Date Value 03/10/2023 1.010 [...] complication, without long-term current use of insulin ([facility]) 07/24/2016 Degenerative disc disease, cervical 12/09/2015 Diabetes [...] tablet by mouth every hour as needed. gsaujhh-bygojqzhf-ftqbqwd D3 (CALCIUM 500+D) 500 mg-5 mcg (200 [...] and dysuria. Risk of anesthesia complications, stroke, UT, etc.The patient expressed an understandingwith regard to possible complications and outcome. FOLLOW UP (1s&1w; 3s): Return if symptoms worsen or fail to improve. ASSESSMENT/PLAN: 1. Benign prostatic hyperplasia with urinary retention - ICD9: 600.01, 788.20, ICD10: N40.1, R33.8 (primary diagnosis) [facility]-TURP 2. Poor urinary stream - ICD9: 788.62, ICD10: R39.12 Shaji Gaona Please note: This note has been produced using speech recognition software and may contain errors related to that system including grammar, punctuation, spelling, gender and words and phrases that may be inappropriate. documented in this encounterSt[facility] Miscellaneous Notes* PT DISCHARGE - Jennifer [...] anymore BACKGROUND: Diagnoses (reason for Home Care): [facility]- for weakness then transferred to [facility] 03/08/2023 - 03/18/2023. UTI ,MOISES Weight [...] summary for intervention/education details. documented in this encounterSt. [facility] Miscellaneous Notes* PT ROUTINE/REASSESSMENT/RECERT/CASE MGMT - Jade Swathi, CURRICULUM MANAGER - 04/25/2023 11:15 AM EDT SITUATION: only patient present during today's visit. patient reports the following since the last homecare visit: medications/allergies--no changes, no fall. patient reports he feels like his legs are getting stronger. BACKGROUND: Diagnoses (reason for Home Care): [facility]- for weakness then transferred to [facility] 03/08/2023 - 03/18/2023. UTI ,MOISES Weight [...] summary for intervention/education details. documented in this encounterSt. [facility] Miscellaneous Notes* Telephone Encounter - Marisol Birmingham Ma - 04/23/2023 1:25 PM EDT Detailed message left for Cori * Telephone Encounter - Antony Espinoza MD - 04/23/2023 12:19 PM EDT ok * Telephone Encounter - Farncia Yusuf RN - 04/23/2023 11:59 AM EDT Cori- PT- [facility]- asking for verbal order to extend PT 2 x week for 2 more weeks. documented in this encounterSt. [facility]06-[facility]23 Miscellaneous Notes* PT ROUTINE/REASSESSMENT/RECERT/CASE MGMT - [...] reps BACKGROUND: Diagnoses (reason for Home Care): [facility]- for weakness 03/06- then [facility] - 03/18/2023. UTI ,MOISES Weight Bearing/Precaution [...] summary for intervention/education details. documented in this encounterSt. [facility]06-[facility]-2023 Miscellaneous Notes* Telephone Encounter - Harinder Isaac RN - 04/19/2023 8:[address] Antony Espinoza, Patient has been discharged per skilled home health nurse as a discipline discharge for home healthcare. Patient is still being seen per home therapy. Thank you for choosing [facility] for [facility] to serve your patient's home careneeds. Harinder Isaac RN documented in this encounterSt. [facility]05-31-2023 Miscellaneous Notes* PT ROUTINE/REASSESSMENT/RECERT/CASE MGMT - [...] again. BACKGROUND: Diagnoses (reason for Home Care): [facility]- for weakness 03/06- [facility] - 03/18/2023. UTI ,MOISES Weight Bearing/Precaution [...] summary for intervention/education details. documented in this encounterSt. [facility]05-30-2023 Instructions* Patient Instructions* Shaji Gaona MD [...] prostate cancer in its early stages, the [place] [employer] and the [place] [employer] Society recommend a screening every year for men ages 50 to 70. They further recommend that men who are at high risk -- such as -[place] men and men with a family history [...] and hemostasis is achieved with electrocautery. Graphic 96580 Version 1.0 2020 [employer] and/or its affiliates. All Rights Reserved. documented in this encounterSt. [facility]05-30-2023 Procedure note* Shaji Gaona MD - 2023 2:38 PM EDTProcedure(s): CYSTOSCOPY; US, TRANSRECTAL Pre-Procedure Diagnose(s): Benign prostatic hyperplasia with urinary retention Post-Procedure Diagnose(s): Benign prostatic hyperplasia with urinary retention CYSTOSCOPY/TRUS PROCEDURE NOTE: [id number] Craig/complex-[id number] Craig/uncomp-[id number] BLADDER IRRIGATION, SIMPLE, LAVAG [[id number] Ray Gena Mullins is a 83 year old male who presents with /for cystoscopy And TRUS Pt ID verified with patient: yes Procedure verified with patient: cystoscopy/ TRUS Procedure confirmed with physician and field support representative: yes Special equipment-cystoscope with ultrasound of the [...] plans Shaji Gaona MD documented in this encounterSt. [facility]-30-[facility] History of Present illness Narrative* Shaji [...] Proscar 5 mg June 29, 2015-seen by [facility] urology- 1 year follow-up previous prostate biopsy [...] learn intermittent catheterization May 10, 2014-ultrasound/biopsy of prostate-[facility] urology--- Volume 57 cc Creatinine Date Value [...] Date Value 03/10/2023 Negative 01/06/2010 neg Specific [place], Ur (no units) Date Value 03/10/2023 1.010 [...] tablet by mouth every hour as needed. dgqykkx-ekzfatxyx-tyiyydc D3 (CALCIUM 500+D) 500 mg-5 mcg (200 [...] dizzines and falls. Discussed risk bladder decompinsation fci could be anissue if no surgical intervention. .dgruroli TUR Prostate I explained the options concerning surgery versus medication.I explained the possibility of impotency, retrograde ejaculation, and incontinence ,the possibility of blood loss, and transfusion and thefact that he may be admitted post operatively. I explained the post operative urgency, frequency, and dysuria. Risk of anesthesia complications, stroke, UT, etc.The patient expressed an understandingwith regard to [...] that may be inappropriate. documented in this encounterSt. [facility]05-17-2023 Miscellaneous Notes* PT ROUTINE/REASSESSMENT/RECERT/CASE MGMT - Jose Solomon PTA - 04/03/2023 10:56 AM EDT SITUATION: only patient present during today's visit. patient reports the following since the last homecare visit: medications/allergies--no changes, no fall. patient reports that he walks within the home every1-2 hours, has not been compliant to full HEP. Agreeable to PT. BACKGROUND: Diagnoses (reason for Home Care): [facility]- for weakness 03/06- [facility] - 03/18/2023. UTI ,MOISES Weight Bearing/Precaution [...] summary for intervention/education details. documented in this encounterSt. [facility]05-12-2023 Miscellaneous Notes* SN Routine - Monae Bobo RN - 03/29/2023 1:55 PM EDT SITUATION: Residential routine visit completed today. only patient present [...] voiding trial, CP check. documented in this encounterSt. [facility] Hospital05-12-2023 Miscellaneous Notes* PT ROUTINE/REASSESSMENT/RECERT/CASE MGMT - [...] again. BACKGROUND: Diagnoses (reason for Home Care): [facility]- for weakness 03/06- then transferred to [facility] 03/08/2023 - 03/18/2023. UTI ,MOISES Weight [...] summary for intervention/education details. documented in this encounterSt. [facility]'S Hospital05-12-2023 History of Present illness Narrative* Martha [...] catheter. Martha Enriquez LPN documented in this encounterSt. Rita'S Hospital05-10-2023 Miscellaneous Notes* Telephone Encounter - Martha [...] reschedule. Martha Enriquez LPN documented in this encounterSt. Rita'S Hospital05-10-2023 Miscellaneous Notes* PT ROUTINE/REASSESSMENT/RECERT/CASE MGMT - Jade Echevarria PTA - 03/27/2023 12:49 PM EDT SITUATION: spouse present during today's visit. patient and caregiver reports the following since the last homecare visit: medications/allergies--no changes, no fall. patient reports he is feeling better every day. BACKGROUND: Diagnoses (reason for Home Care): [facility]- for weakness then transferred to [facility] 03/08/2023 - 03/18/2023. UTI ,MOISES Weight [...] summary for intervention/education details. documented in this encounterSt. [facility] Hospital05-08-2023 Miscellaneous Notes* Telephone Encounter - Zina Garcia Collar Runner - 03/25/2023 9:47 AM EDT There has been a delay in service for Home Care OT Evaluation for this patient due to schedule conflict. Attempted to notify patient - the number listed went to voicemail and I was unable to leave a message because the mailbox is full. Thank you for this referral, please contact us with any questions. Zina Garcia Collar Runner documented in this encounterSt. [facility]'S Hospital05-08-2023 History of Present illness Narrative* Antony Espinoza MD - 03/25/2023 8:51 AM EDT Patient presents with: Hospital F/U HPI: Patient presents today for office visit for hospital follow up. Admitted into [facility] on 03/06/23 Transferred to [facility] 03/08/23 for PT and discharged 03/18/23. Initially went to [facility] ER due to weakness, debility and B/L [...] No hematuria. No fever. Seeing urology at [facility]. Goes again on Saturday. Has indwelling craig. Urine clear. Admitted with [facility] with knee pain and and knee effusion. Was placed on steroids and begun on therapy. Was admitted more for safety issues. They did not have him see ortho. Work up included labs. Had xrays and duplex. [facility] is following. Getting VN, physical and occupation [...] tablet by mouth every hour as needed. kzsmtaz-mmvsfweqx-mtyxdbm D3 (CALCIUM 500+D) 500 mg-5 mcg (200 [...] pain - continue therapy. 5. Atherosclerosis of [place] coronary artery of [place] heart without angina pectoris - ICD9: [...] Urinary retention - ICD9: 788.20, ICD10: R33.9 help desk support specialist the cardura and use. Hopefully will improve things. 12. Debility - ICD9: 799.3, ICD10: R53.81 - as above. Antony Espinoza RTO in eight weeks or prn documented in this encounterSt. [facility]05-07-2023 Miscellaneous Notes* PT EVALUATION - Jennifer Clark, PT - 03/24/2023 9:36 AM EDT SITUATION: spouse present during today's visit. patient reports the following since the last homecare visit: medications/allergies--no changes, no fall. patient reports Im getting better . BACKGROUND: Diagnoses (reason for Home Care): [facility]- for weakness 03/06- then [facility] - 03/18/2023. UTI ,MOISES PMH: Hairy [...] Restrictions: fall, impulsive ASSESSMENT: Patient evaluated by [facility] therapy. Reviewed and explained [...] summary for intervention/education details. documented in this encounterSt. [facility]'S Hospital05-05-2023 Miscellaneous Notes* Telephone Encounter - Elicia Man RN - 03/22/2023 3:04 PM EDT Pt spouse calling in, name & verified. Pt calling to report blood in urine and pain 6/10 following craig insertion today in office. Gave pt some pain reliever and he was going to rest tosee if pain subsides.Elicia Man RN documented in this encounterSt. [facility]'S Hospital05-05-2023 History of Present illness Narrative* Lorenzo Carballo PA-C - 03/22/2023 11:10 AM EDT CC Craig in Place HPI: Michael Mullins is a 82 year old male with a history of BPH with Obstruction . patient on Cardura for 1 mg for years as well as Proscar 5 mg Craig insertion occurred on March 10, 2023 after Parathyroid surgery and subsequent hospitalization. He had a UTI and was treated with Keflex at [facility] The patient is here now for [...] ICD10: E11.29, R80.9 > UTI while at [facility] and was given cephALEXin 500 mg [...] catheter. Martha Enriquez LPN documented in this encounterSt. [facility]05-05-2023 Instructions* Patient Instructions* Lorenzo Carballo PA-C - 03/22/2023 11:04 AM EDT > Failed TOV craig back in place - today > Increase Cardura to 8 mg and remain on Proscar 5 mg > Nurse Appointment in 1 week for TOV documented in this encounterSt. [facility] Hospital05-04-2023 Miscellaneous Notes* Telephone Encounter - Martha Enriquez LPN - 03/21/2023 9:14 AM EDT Called patient. No answer- call went to voicemail that is not set up. Patient is scheduled to see Lorenzo tomorrow and was calling to get small history for appointment as we are waiting on records from [facility]. Martha Enriquez LPN documented in this encounterSt. [facility] Hospital05-02-2023 Miscellaneous Notes* SN SOC - María Mcdonnell RN - 03/19/2023 12:52 PM EDT SITUATION: Residential SOC visit completed today. spouse also present during today's visit. patient and caregiver reports the following: Allergies--reviewed Medications--full medication reconciliation completed Falls--None DME-Reviewed and added to chart BACKGROUND: Discharged/Referral from acute rehab hospital on 03/18/23 following treatment for knee pain, failure to thrive, UTI, urinary retention requiring a craig. (pt admitted to [facility] then transferred to [place] for rehab). Pertinent referral information or other [...] urology as been scheduled. documented in this encounterSt. [facility]'S Hospital04-29-2023 Miscellaneous Notes* Telephone Encounter - Marisol Medina LPN - 03/16/2023 1:19 PM EDT Welcome Home Call: a. Date and Time: 1:19 PM 03/16/2023 b. Contact name/relationship: Leander West (Spouse) c. Have you been active with any Home Care company in the last 60 days(such as help with bathing, filling medications, checking your blood pressure) ? No. d. [facility] will be providing your [...] maintain a safe environment for our caregivers, [facility] requires anyanimals or weapons present in the home be located in a secured location. Our clinicians will call you the night before or the morning of the appointment. Their # may come up restricted but they'll leave a VM for you. In case you have any questions or concerns in the meantime, our # is [phone], option 5 Thank you for your time and have a great day. Marisol Medina LPN documented in this encounterSt. Rita'S Hospital04-29-2023 Miscellaneous Notes* Telephone Encounter - Marisol [...] care clinicians may also obtain orders from [facility] Virtualist Providers Thank you and we would be happy to answer any questions. Marisol Medina LPN 03/16/2023 8:09 AM documented in this encounterSt. Rita'S Hospital04-21-[address] Griffiths [facility] March 08, 2023 2:14pm Note Date/Time March 08, 2023 2:1 4pm [facility] Medical Records Department [address] [place] [address] Discharge Summary 03/08/23 1413 MR#: [id number] Acct: [id number] Name: MICHAEL MULLINS Rep #:[id number] : 1940 82 From: James Griffiths DO PCP: Dr. Antony Espinoza MD Status:ADM I NO Location: [place] [address] Providers Date of Admission: 03/06/23 Primary Care [...] anxiety and Depression who presents to the [facility] ED on 03/06/23 with history of increasing [...] in before D/C Order can be placed): Residential Facility Charges/Coding Visit Charges Inpatient E&M: 35295 Disch Hosp 03/08/23 1414 <Electronically signed by James Griffiths DO> Cosigner Signature (if applicable): CC: Dr. James Griffiths DO; Dr. Antony Espinoza MD~ Signed [facility] Work Phone: 1(265) 239-325604-21-[address] Griffiths [facility] March 08, 2023 2:13pm Note Date/Time March 08, 2023 2:0 9pm [facility] Medical Records Department [address] [place] [address] Transfer to [facility] MR#: [id number] Acct: [id number] Name: MICHAEL MULLINS #:[id number] : 1940 82 From: James Griffiths DO PCP: Dr. Antony Espinoza MD Status:ADM I NO Certification of patient admission REQUIRED AT TIME OF ADMISSION. I CERTIFY THAT POST-HOSPITAL ECF SERVICES ARE REQUIRED TO BE GIVEN ON AN IN-PATIENT BASIS BECAUSE OF THE ABOVE NAMED PATIENT'S NEED FOR INTERMEDIATE CARE ON A CONTINUING BASIS FOR THE [...] anxiety and Depression who presents to the [facility] ED on 03/06/23 with history of increasing [...] in before D/C Order can be placed): Residential Facility 03/08/23 1413 <Electronically signed by James Griffiths DO> Cosigner Signature (if applicable): CC: Dr. Paty Morgan MD; Dr. Antony Espinoza MD ~ [facility] Work Phone: 1(481) 951-628604-21-[address] Griffiths [facility] March 08, 2023 1:08pm Note Date/Time March 08, 2023 7:1 6am [facility] Medical Records Department [address] [place] [address] Progress Note - Hospitalist 03/08/23 0713 MR#: [id number] Acct: [id number] Name: MICHAEL MULLINS Rep #:[id number] : 1940 82 From: James Griffiths DO PCP: Dr. Antony Espinoza MD Status:ADM I NO Location: [place]3 SL506-8 Reason for Visit Reason for Visit: Diagnoses [...] anxiety and Depression who presents to the [facility] ED on 03/06/23 with history of increasing [...] insurance authorization. Charges/Coding Visit Charges Inpatient E&M: 16285 Subs Hosp L1 03/08/23 1308 <Electronically signed by James Griffiths DO> Cosigner Signature (if applicable): CC: ~ Signed [facility] Work Phone: 1(831) 170-846604-20-[address] Griffiths [facility] March 07, 2023 11:58am Note Date/Time March 07, 2023 7:2 6am [facility] Medical Records Department [address] [place] [address] Progress Note - Hospitalist 03/07/23 0723 MR#: [id number] Acct: [id number] Name: MICHAEL MULLINS Rep #:[id number] : 1940 82 From: James Griffiths DO PCP: Dr. Antony Espinoza MD Status:ADM I NO Location: [place]3 SW711-4 Reason for Visit Reason for Visit: Diagnoses [...] anxiety and Depression who presents to the [facility] ED on 03/06/23 with history of increasing [...] insurance authorization. Charges/Coding Visit Charges Inpatient E&M: 35278 Subs Hosp L2 03/07/23 1158 <Electronically signed by James Griffiths DO> Cosigner Signature (if applicable): CC: ~ Signed [facility] Work Phone: 1(724) 879-464804-19-[address] Griffiths [facility] March 06, 2023 2:51pm Note Date/Time March 06, 2023 7:5 4am [facility] Medical Records Department [address] [place] [address] Progress Note - Hospitalist 03/06/23 0747 MR#: [id number] Acct: [id number] Name: MICHAEL MULLINS Rep #:[id number] : 1940 82 From: James Griffiths DO PCP: Dr. Antony Espinoza MD Status:ADM I NO Location: MS3 VB295-9 Reason for Visit Reason for Visit: Diagnoses [...] 75.4 H, Lymph % (Auto) 13.3 L, Ralls % (Auto) 9.3, Eos % (Auto) 1.4, [...] Clarity Clear, Urine pH 8.0, Ur Specific [place] 1.010, Urine Protein 100 H, Urine Glucose [...] 75.5 H, Lymph % (Auto) 13.3 L, Ralls % (Auto) 9.7, Eos % (Auto) 0.8, [...] anxiety and Depression who presents to the [facility] ED on 03/06/23 with history of increasing [...] Full code Charges/Coding Visit Charges Inpatient E&M: 93699 Subs Hosp L2 03/06/23 1451 <Electronically signed by James Griffiths DO> Cosigner Signature (if applicable): CC: ~ Signed [facility] Work Phone: 1(474) 541-105804-19-2023 Discharge summary [facility], [facility] 5:18am Note Date/Time March 06, 2023 12: 26am [facility] Medical Records Department [address] [place] [address] Emergency Department Summary 03/06/23 MR#: [id number] Acct: [id number] Name: SUSANNAMICHAEL Gena Rep #:[id number] : 1940 82 From: Christiano Eastman DO PCP: Dr. Antony Espinoza MD Status:ADM I NO Location: [place] [address] HPI History of Present Illness Chief Complaint: [...] recent surgery brought him in for evaluation [facility] Medical History Alzheimer's disease Anxiety Benign prostate [...] thathe may need placement in rehab or longterm since he cannot ambulate and he is [...] 75.4 H Lymph % (Auto) 13.3 L Ralls % (Auto) 9.3 Eos % (Auto) 1.4 [...] Clarity Clear Urine pH 8.0 Ur Specific Byrned[place] 1.010 Urine Protein 100 H Urine Glucose [...] to walk Disposition Disposition: Acute Care Hospital [facility] Discharge Date/Time: 03/06/23 01:14 What to do if you have Problems For any increased pain, shortness of breath, bleeding, nausea or vomiting, chestpain, or any unexpected problems, contact your Primary Care Provider. Call [facility] ([phone]) or report to the closest Emergency Room. Call 911 if necessary. 03/06/23517 <Electronically signed by Christiano Eastman DO> Cosigner Signature (if applicable): CC: Dr. Antony Espinoza MD ~ Signed [facility] Work Phone: 1(730) 235-784904-19-2023 History and physical note Author Dr. Morgan [facility] March 06, 2023 1:05am Note Date/Time March 06, 2023 12: 37am [facility] Medical Records Department [address] [place] [address] History & Physical Exam 03/06/23 0024 MR#: [id number] Acct: [id number] Name: MICHAEL MULLINS Rep #:[id number] : 1940 82 From: Paty Morgan MD PCP: Dr. Antony Espinoza MD Status:ADM I NO Location: [place]3 NK987-0 HPI - General General Date of Admission: [...] anxiety and Depression who presents to the [facility] ED on 03/06/23 with history of increasing [...] patient ministered 1 L normal saline bolus. [facility] Medical History Alzheimer's disease Anxiety Benign [...] 75.4 H, Lymph % (Auto) 13.3 L, Ralls % (Auto) 9.3, Eos % (Auto) 1.4, [...] Clarity Clear, Urine pH 8.0, Ur Specific [place] 1.010, Urine Protein 100 H, Urine Glucose [...] anxiety and Depression who presents to the [facility] ED on 03/06/23 with history of increasing [...] left knee effusion noted: Will admit to [facility], patient calcium level is normalalthough ionized calcium [...] 55 minutes. Charges/Coding Visit Charges Inpatient E&M: 02648 Init Hosp L2 Procedures Hospitalists Procedures: 58029 Advncd Care Plan 30 Min 03/06/23 0105 <Electronically signed by Paty Morgan MD> Cosigner Signature (if applicable): CC: Dr. Paty Morgan MD; Dr. Antony Espinoza MD~ Signed [facility] Work Phone: 1(941) 520-416204-13-2023 NoteHNO ID: [id number] Author: Cliff Castro MD Service: Endocrine Surgery [...] PRN Karyna Reeves Jr., MD phenol 1 [place] (CHLORASEPTIC) 1 [place] MUCOUS MEMBRANE (TOPICAL MOUTH AND THROAT) q 2 H PRN Karyna Reeves Jr., MD ibuprofen 600 mg tab(s) (MOTRIN) 600 mg ORAL q 6 H PRN Karyna Reeves Jr., MD acetaminophen 500 mg tab(s) (TYLENOL) 500 mg ORAL q 4 H PRN Karyna Reeves Jr., MD 500 mg at 02/27/232017 gqmpikg-qlijmirbm-bxbgvgm D3 500 mg-5 mcg (200 unit) 1 [...] 0659 02/28/23 07 - 03/01/23 0659 Shift 4542-4022 6868-4450 0994-2938 24 Hour Total 6863-7339 0438-3562 8471-5974 24 Hour Total INTAKE IV 1400 1400 [...] of care. Cliff Castro MD General Surgery [id number] NoteHNO ID: [id number] Author: Karyna Reeves Jr., MD Service: ? [...] PRN Karyna Reeves Jr., MD phenol 1 [place] (CHLORASEPTIC) 1 [place] MUCOUS MEMBRANE (TOPICAL MOUTH AND THROAT) q 2 H PRN Karyna Reeves Jr., MD ibuprofen 600 mg tab(s) (MOTRIN) 600 mg ORAL q 6 H PRN Karyna Reeves Jr., MD acetaminophen 500 mg tab(s) (TYLENOL) 500 mg ORAL q 4 H PRN Karyna Reeves Jr., MD 500 mg at 02/27/23 1138 pcvktpj-znvyfzsyq-nqfdpvk D3 500 mg-5 mcg (200 unit) 1 [...] Admitted) 02/27/23 0700 - 02/28/23 0659 Shift 9940-2344 3999-2115 24 Hour Total 0861-5492 5916-9038 3974-6355 24 Hour Total INTAKE IV 1400 1400 [...] Karyna reeves Jr, MD Clinical Associate [facility]04-12-2023 NoteHNO ID: [id number] Author: GRACY Frausto Service: ? 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 Staffing CAA: GRACY Frausto Indications and Patient Condition Indications for airway management: anesthesia Preoxygenated: yes anesthesia circuit Method: asleep Cricoid Pressure: No Manual In-Line Stabilization: No Difficult Mask: No Final Airway Details Final airway type: endotracheal airway Final Endotracheal Airway: ETT (nerveanna) Cuffed: yes Successful intubation technique: video laryngoscopy Devices used: Thumbs Up Endotracheal tube insertion site: oral Blade size: #4 ETT size (mm): 8.0 Measurement (cm): 22 Placement verified by: capnometry Cormack-Lehane Classification: grade I - full view of glottis Number of attempts at approach: 1 Failed airway: no Unrecognized esophageal intubation: no Airway not difficult SIGNATURE: GRACY Frausto PATIENT NAME: Michael Mullins DATE: February 27, 2023 TIME: 8:06 AM CSN: [id number] Miscellaneous Notes* Telephone Encounter - Nicole Bass [...] patient. Nicole Bass LPN documented in this encounterSt. Rita'S Hospital03-24-2023 Miscellaneous Notes* Telephone Encounter - Meño Ledbetter LPN - 02/08/2023 10:47 AM EDT Patient phones requesting refills as follows: Requested Prescriptions Pending Prescriptions Disp Refills allopurinol (ZYLOPRIM) 300 mg tablet 90 tablet 3 Sig: TAKE 1 TABLET BY MOUTH ONCE DAILY. FOR GOUT. SAMANTHA 11/15/22 NOV no upcoming appt Please review and advise. Meño Ledbetter LPN documented in this encounterSt. Rita'S Hospital03-15-2023 Miscellaneous Notes* Telephone Encounter - NAILA Sparks - 01/30/2023 4:01 PM EDT [facility] 11/15/22 with [facility] No appointment scheduled Please advise. Thank you. NAILA Sparks * Telephone Encounter - eVra Hurtado - 01/30/2023 3:30 PM EDT Patient has been identified by name and date of : Yes Requested Prescriptions Pending Prescriptions Disp Refills metFORMIN (GLUCOPHAGE) 500 mg tablet 180 tablet 3 Sig: Take 1 tablet by mouth twice daily with meals. RX INSTRUCTIONS: Patient aware RX will be sent to pharmacy. No need to notify patient. Vera Hayward [facility] documented in this encounterSt. Rita'S Hospital02-09-2023 History of Present illness Narrative* Blanche Munoz MD - 12/27/2022 11:40 AM EST Blanche Munoz M.D. Department of Endocrine Surgery Endocrinology Met[place] [address] ENDOCRINE SURGERY NEW PATIENT VISIT NAME: Michael Mullins CLINIC NO: [id number] : 1940 History of Present Illness: Michael [...] complication, without long-term current use of insulin ([facility]) 07/24/2016 Degenerative disc disease, cervical 12/09/2015 Diabetes mellitus ([facility]) 07/14/2010 Elevated alkaline phosphatase level 01/10/2021 01/09/21 [...] which included preparing to see the patient, jgzq-wt-twcg patient care, completing clinical documentation, obtaining and/or [...] questions. Sincerely, Blanche Munoz M.D. Endocrine Surgeon [facility] documented in this encounterSt. Rita'S Hospital02-09-2023 History of Present illness Narrative* Hayley [...] 0940 PATIENT DISCHARGED TO: Ambulatory patient, left [place] department area. A Diagnostic radioactive procedure has taken place, with no further precautions necessary other than routine body substance precautions. More information regarding radiation safety can be found usingthis link: [email or web address] SIGNATURE: RT Krzysztof(William) PATIENT NAME: iMchael Mullins DATE: December 27, 2022 TIME: 10:47 AM PAGER/CONTACT #: documented in this encounterSt. Rita'S Hospital02-09-2023 Instructions* Patient Instructions* Florence Gan Ma - 12/27/2022 10:03 AM EST Thank you for choosing the [facility] Department of Endocrinology, Diabetes and Metabolism. Did you know that you need to call 48 hours in advance of your scheduled visit, if you are unable to make your appointment? The Endocrinology and Metabolism [place] thanks you for your commitment, because patients not showing to their appointment results in a lost opportunity for patients to receive [facility] health care at the [facility]. To Cancel an appointment, please choose one of the following: - Call the Appointment Call Center at [phone] - From [employer], Go to Appointments - Cancel Appts If cancelling, consider your need to reschedule to prevent further delays in your care. To Schedule an appointment, please choose one of the following: - Call the Appointment Call Center at [phone] - From [employer], Go to Appointments - Request an Appt documented in this encounterSt. Rita'S Hospital02-09-2023 History of Present illness Narrative* Destini [...] 27, 2022 8:37 AM documented in this encounterSt. Rita'S Hospital02-01-2023 Miscellaneous Notes* Telephone Encounter - Marisol Hayes - 12/19/2022 4:57 PM EST ENDOCRINE SURGERY PATIENT WORKSHEET Initial Call Date: December 19, 2022 Reason for Consult/ Referral: Hyperparathyroid PATIENT DEMOGRAPHICS Name: Michael Mullins F#: [id number] : 1940 AGE: [age] year old Contact Numbers: Home: (home) Work: There is no work phone number on file. PATIENT PHYSICIAN INFORMATION Referring Doctor: Shanthi Rangel Address: Phone: Gore Stitcher: same Address: Phone: PCP: Antony Espinoza [address] [place] [address] PAST TREATMENT Office notes: SEE EPIC Medications: [...] Pathology Reports: NONE AVAILABLE documented in this encounterSt. Rita'S Hospital01-31-2023 History of Present illness Narrative* Lori [...] Objective: Patient presents to clinic ambulating in [facility] Vasc: DP and PT pulses are [...] for diabetic foot care. documented in this encounterSt. Rita'S Hospital01-31-2023 Instructions* Patient Instructions* Lori Goodman - [...] (or decreased sensation in your feet) a contract engineer should always cut your toenails. Be Careful [...] Go to your health care provider or contract engineer to treat these conditions. documented in this encounterSt. Rita'S Hospital01-26-2023 History of Present illness Narrative* Shanthi [...] complication, without long-term current use of insulin ([facility]) 07/24/2016 Degenerative disc disease, cervical 12/09/2015 Diabetes mellitus ([facility]) 07/14/2010 Elevated alkaline phosphatase level 01/10/2021 01/09/21 [...] dependent hypercalcemia, likely due to primary hyperparathyroidism. [facility] is u nlikely given the age of [...] which included preparing to see the patient, gcma-qf-ciiy patient care, completing clinical documentation, obtaining and/or reviewing separately obtained history, counseling and educating the patient/family/caregiver, and ordering medications, tests, or procedures. This note was created using [employer] dictation software. You may find errors that were missed during proofreading. They are purely unintentional and if there are any concerns regarding this dictation, please do not hesitate to contact the dictating provider for clarification. Shanthi Rangel MD documented in this encounterSt. Rita'S Hospital01-26-2023 Instructions* Patient Instructions* Shanthi Rangel MD - 12/13/2022 1:16 PM EST - We will do parathyroid SPECT scan. Please call [phone] to schedule - We will refer you to endocrine surgery clinic to discuss surgery for the parathyroid gland Thank you for choosing the [facility] Department of Endocrinology, Diabetes and Metabolism. Did you know that you need to call 48 hours in advance of your scheduled visit, if you are unable to make your appointment? The Endocrinology and Metabolism [place] thanks you for your commitment, because patients not showing to their appointment results in a lost opportunity for patients to receive [facility] health care at the [facility]. To Cancel an appointment, please choose one of the following: - Call the Appointment Call Center at [phone] - From [employer], Go to Appointments - Cancel Appts If cancelling, consider your need to reschedule to prevent further delays in your care. To Schedule an appointment, please choose one of the following: - Call the Appointment Call Center at [phone] - From [employer], Go to Appointments - Request an Appt documented in this encounterSt. Rita'S Hospital01-20-2023 Miscellaneous Notes* Telephone Encounter - Ayan [...] advise. Ara Paniagua Pss documented in this encounterSt. Rita'S Hospital01-09-2023 History of Present illness Narrative* Ian Holly MD - 11/26/2022 2:32 PM EST Images from the original note were not included. Ian Holly MD Interventional Cardiology [address] [place] [address] Chief Complaint Patient presents with: Established Patient [...] to correct any errors. documented in this encounterSt. Rita'S Hospital01-06-2023 Instructions* Patient Instructions* Lorenzo Carballo PA-C - 11/23/2022 2:46 PM EST > 1 year Appt w/ DAISY Villalba, [place], [facility] for annual follow-up and refills. documented in this encounterSt. Rita'S Hospital01-06-2023 History of Present illness Narrative* Lorenzo Carballo PA-C - 11/23/2022 9:12 AM EST Images from the original note were not included. [facility] ESTABLISHED PATIENT CLINIC NOTE [...] Plan: Appointment with Lorenzo. documented in this encounterSt. Rita'S Hospital10-25-2022 Miscellaneous Notes* Telephone Encounter - Cori [...] notify patient. Cori Long documented in this encounterSt. Rita'S Hospital09-28-2022 Miscellaneous Notes* Telephone Encounter - Dorinda [...] patient. Dorinda Heart Pss documented in this encounterSt. Rita'S Hospital09-09-2022 History of Present illness Narrative* Lori [...] Could get him in with derm in [place] or [facility]. He has elected to monitor. If he reconsiders, would send him to [facility] as this is local Patient was [...] Patient, Debridement of Nail documented in this encounterSt. Rita'S Hospital09-09-2022 Instructions* Patient Instructions* Lori Goodman - [...] (or decreased sensation in your feet) a contract engineer should always cut your toenails. Be Careful [...] Go to your health care provider or contract engineer to treat these conditions. documented in this encounterSt. Rita'S Hospital09-08-2022 Miscellaneous Notes* Telephone Encounter - Meño Ledbetter LPN - 07/26/2022 11:28 AM EDT [facility] 05/07/22 NOV 11/15/22 * Telephone Encounter [...] patient. Marysol Vidal Pss documented in this encounterSt. Rita'S Hospital08-12-2022 Miscellaneous Notes* Telephone Encounter - Dorinda [...] patient. Dorinda Heart Pss documented in this encounterSt. Rita'S Hospital07-19-2022 Instructions* Patient Instructions* Shanthi Rangel MD - 06/05/2022 4:18 PM EDT - We will do blood tests and 24 hour urine collection at your convenience - We will also do bone density scan. Please call [phone] to schedule - Avoid calcium pills, but [...] canned with bones 3 oz 325 mg [place], canned with bones 3 oz 180 mg Shrimp, canned 3 oz 125 mg Dairy Serving Size Estimated Calcium* Ricotta, part-skim 4 oz 335 mg Yogurt, plain, low-fat 6 oz 310 mg Milk, skim, low-fat, whole 8 oz 300 mg Yogurt with fruit, low-fat 6 oz 260 mg Mozzarella, part-skim 1 oz 210 mg Cheddar 1 oz 205 mg Yogurt, Egyptian 6 oz 200 mg Saudi Arabian Cheese 1 oz 195 mg Feta Cheese 4 oz 140 mg Cottage Cheese, 2% 4 oz 105 mg Frozen yogurt, vanilla 8 oz 105 mg Ice Cream, vanilla 8 oz 85 mg Parmesan 1 tbsp 55 mg Fortified Food Serving Size Estimated Calcium* [place]ade milk, rice milk or soy milk, fortified 8 oz 300 mg [place] juice and other fruit juices, fortified 8 oz 300 mg Tofu, prepared with calcium 4 oz 205 mg Waffle, frozen, fortified 2 pieces 200 mg Oatmeal, fortified 1 packet 140 mg Lithuanian muffin, fortified 1 muffin 100 mg Cereal, fortified 8 oz 100-1,000 mg Other Serving Size Estimated Calcium* Mac & cheese, frozen 1 package 325 mg Pizza, cheese, frozen 1 serving 115 mg Pudding, chocolate, prepared with 2% milk 4 oz 160 mg Beans, baked, canned 4 oz 160 mg documented in this encounterSt. Rita'S Hospital07-19-2022 History of Present illness Narrative* Shanthi Rangel MD - 06/05/2022 3:40 PM EDT Images from the original note were not included. ENDOCRINOLOGY CLINIC NOTE Mr. 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 Antony sEpinoza for evaluation and management of hypercalcemia HPI [...] with more than 50% of the total sxcr-ua-adwn time of the visit in counseling / coordination of care. This note was created using [employer] dictation software. You may find errors that were missed during proofreading. They are purely unintentional and if there are any concerns regarding this dictation, please do not hesitate to contact the dictating provider for clarification. Shanthi Rangel MD documented in this encounterSt. Rita'S Hospital07-07-2022 Miscellaneous Notes* Telephone Encounter - Dorinda [...] Would recommend seeing endo documented in this encounterSt. [facility] Instructions* Patient Instructions* Antony Espinoza MD - 05/07/2022 10:59 AM EDT Do Your Daily Exercises. -per Dr. Espinoza. documented in this encounterSt. [facility]06-[facility] History of Present illness Narrative* Antony [...] foot. Nurses check foot for sores. Sees contract engineer every 3 mo. ONCOLOGY:follow with Dr. Andrade. [...] six months and prn. documented in this encounterSt. [facility]05-31-[facility] History of Present illness Narrative* Lori [...] months. Lori Goodman DPM documented in this encounterSt. Rita'[facility]05-31-2022 Instructions* Patient Instructions* Lori Joaquinjackie - [...] (or decreased sensation in your feet) a contract engineer should always cut your toenails. Be Careful [...] Go to your health care provider or contract engineer to treat these conditions. documented in this encounterSt. [facility]05-27-2022 Miscellaneous Notes* Telephone Encounter - Luzmaria [...] pharmacy. No need to notify patient. Marysol oLng documented in this encounterSt. Rita'[facility]05-05-2022 Miscellaneous Notes* Telephone Encounter - Marisol [...] notify patient. Marysol Long documented in this encounterSt. [facility]05-04-2022 Miscellaneous Notes* Telephone Encounter - Maru Washburn LPN - 03/21/2022 5:54 PM EDT Patient phones requesting refills as follows: Pending Prescriptions Disp Refills MEMANTINE 5 MG TABLET 60 tablet 5 Sig: take 1 tablet by mouth twice a day WALDEMAR: Yes SAMANTHA-11/06/21 Labs-11/06/21 NOV-05/07/22 med filled 06/30/21 Please review and advise. Maru Washburn LPN documented in this encounterSt. Rita'[facility]04-18-2022 Miscellaneous Notes* Telephone Encounter - NAILA [...] patient. Dorinda Heart Pss documented in this encounterSt. Rita'[facility]12-13-2021 History of Past illness Narrative* Problem Noted Date Resolved Date Shortness of breath 10/30/2021 03/25/2023 Personal history of fall 07/28/2020 023 Last Assessment & Plan: Assessment: hx, uses cane LBBB (left bundle branch block) 06/03/2018 03/25/2023 Last Assessment & Plan: Assessment: hx, per EKG, follows cardiology documented as of this encounter (statuses as of 03/25/2023) [facility] History of Past illness Narrative* Problem Noted Date Resolved Date Shortness of breath 10/30/2021 03/25/2023 Personal history of fall 07/28/2020 023 Last Assessment & Plan: Assessment: hx, uses cane LBBB (left bundle branch block) 06/03/2018 03/25/2023 Last Assessment & Plan: Assessment: hx, per EKG, follows cardiology documented as of this encounter (statuses as of 03/25/2023) [facility] History of Past illness Narrative* Problem Noted Date Resolved Date Shortness of breath 10/30/2021 03/25/2023 Personal history of fall 07/28/2020 023 Last Assessment & Plan: Assessment: hx, uses cane LBBB (left bundle branch block) 06/03/2018 03/25/2023 Last Assessment & Plan: Assessment: hx, per EKG, follows cardiology documented as of this encounter (statuses as of 03/27/2023) [facility] of Past illness Narrative* Problem Noted Date Resolved Date Shortness of breath 10/30/2021 03/25/2023 Personal history of fall 07/28/2020 023 Last Assessment & Plan: Assessment: hx, uses cane LBBB (left bundle branch block) 06/03/2018 03/25/2023 Last Assessment & Plan: Assessment: hx, per EKG, follows cardiology documented as of this encounter (statuses as of 03/27/2023) [facility] of Past illness Narrative* Problem Noted Date Resolved Date Shortness of breath 10/30/2021 03/25/2023 Personal history of fall 07/28/2020 023 Last Assessment & Plan: Assessment: hx, uses cane LBBB (left bundle branch block) 06/03/2018 03/25/2023 Last Assessment & Plan: Assessment: hx, per EKG, follows cardiology documented as of this encounter (statuses as of 03/29/2023) [facility] of Past illness Narrative* Problem Noted Date Resolved Date Shortness of breath 10/30/2021 03/25/2023 Personal history of fall 07/28/2020 023 Last Assessment & Plan: Assessment: hx, uses cane LBBB (left bundle branch block) 06/03/2018 03/25/2023 Last Assessment & Plan: Assessment: hx, per EKG, follows cardiology documented as of this encounter (statuses as of 03/30/2023) [facility] of Past illness Narrative* Problem Noted Date Resolved Date Shortness of breath 10/30/2021 03/25/2023 Personal history of fall 07/28/2020 023 Last Assessment & Plan: Assessment: hx, uses cane LBBB (left bundle branch block) 06/03/2018 03/25/2023 Last Assessment & Plan: Assessment: hx, per EKG, follows cardiology documented as of this encounter (statuses as of 04/01/2023) [facility] of Past illness Narrative* Problem Noted Date Resolved Date Shortness of breath 10/30/2021 03/25/2023 Personal history of fall 07/28/2020 023 Last Assessment & Plan: Assessment: hx, uses cane LBBB (left bundle branch block) 06/03/2018 03/25/2023 Last Assessment & Plan: Assessment: hx, per EKG, follows cardiology documented as of this encounter (statuses as of 04/03/2023) [facility] of Past illness Narrative* Problem Noted Date Resolved Date Shortness of breath 10/30/2021 03/25/2023 Personal history of fall 07/28/2020 023 Last Assessment & Plan: Assessment: hx, uses cane LBBB (left bundle branch block) 06/03/2018 03/25/2023 Last Assessment & Plan: Assessment: hx, per EKG, follows cardiology documented as of this encounter (statuses as of 04/25/2023) [facility] of Past illness Narrative* Problem Noted Date Resolved Date Shortness of breath 10/30/2021 03/25/2023 Personal history of fall 07/28/2020 023 Last Assessment & Plan: Assessment: hx, uses cane LBBB (left bundle branch block) 06/03/2018 03/25/2023 Last Assessment & Plan: Assessment: hx, per EKG, follows cardiology documented as of this encounter (statuses as of 04/17/2023) [facility] of Past illness Narrative* Problem Noted Date Resolved Date Shortness of breath 10/30/2021 03/25/2023 Personal history of fall 07/28/2020 023 Last Assessment & Plan: Assessment: hx, uses cane LBBB (left bundle branch block) 06/03/2018 03/25/2023 Last Assessment & Plan: Assessment: hx, per EKG, follows cardiology documented as of this encounter (statuses as of 04/18/2023) [facility] of Past illness Narrative* Problem Noted Date Resolved Date Shortness of breath 10/30/2021 03/25/2023 Personal history of fall 07/28/2020 023 Last Assessment & Plan: Assessment: hx, uses cane LBBB (left bundle branch block) 06/03/2018 03/25/2023 Last Assessment & Plan: Assessment: hx, per EKG, follows cardiology documented as of this encounter (statuses as of 04/19/2023) [address]13-2021 History of Past illness Narrative* Problem Noted Date Resolved Date Shortness of breath 10/30/2021 03/25/2023 Personal history of fall 07/28/2020 023 Last Assessment & Plan: Assessment: hx, uses cane LBBB (left bundle branch block) 06/03/2018 03/25/2023 Last Assessment & Plan: Assessment: hx, per EKG, follows cardiology documented as of this encounter (statuses as of 04/23/2023) [facility] of Past illness Narrative* Problem Noted Date Resolved Date Shortness of breath 10/30/2021 03/25/2023 Personal history of fall 07/28/2020 023 Last Assessment & Plan: Assessment: hx, uses cane LBBB (left bundle branch block) 06/03/2018 03/25/2023 Last Assessment & Plan: Assessment: hx, per EKG, follows cardiology documented as of this encounter (statuses as of 04/23/2023) [facility] of Past illness Narrative* Problem Noted Date Resolved Date Shortness of breath 10/30/2021 03/25/2023 Personal history of fall 07/28/2020 023 Last Assessment & Plan: Assessment: hx, uses cane LBBB (left bundle branch block) 06/03/2018 03/25/2023 Last Assessment & Plan: Assessment: hx, per EKG, follows cardiology documented as of this encounter (statuses as of 04/24/2023) [facility] of Past illness Narrative* Problem Noted Date Resolved Date Shortness of breath 10/30/2021 03/25/2023 Personal history of fall 07/28/2020 023 Last Assessment & Plan: Assessment: hx, uses cane LBBB (left bundle branch block) 06/03/2018 03/25/2023 Last Assessment & Plan: Assessment: hx, per EKG, follows cardiology documented as of this encounter (statuses as of 05/02/2023) [facility] Narrative* Problem Noted Date Resolved Date Shortness of breath 10/30/2021 03/25/2023 Personal history of fall 07/28/2020 023 Last Assessment & Plan: Assessment: hx, uses cane LBBB (left bundle branch block) 06/03/2018 03/25/2023 Last Assessment & Plan: Assessment: hx, per EKG, follows cardiology documented as of this encounter (statuses as of 05/03/2023) [facility] illness Narrative* Problem Noted Date Resolved Date Shortness of breath 10/30/2021 03/25/2023 Personal history of fall 07/28/2020 023 Last Assessment & Plan: Assessment: hx, uses cane LBBB (left bundle branch block) 06/03/2018 03/25/2023 Last Assessment & Plan: Assessment: hx, per EKG, follows cardiology documented as of this encounter (statuses as of 05/03/2023) [facility] illness Narrative* Problem Noted Date Resolved Date Shortness of breath 10/30/2021 03/25/2023 Personal history of fall 07/28/2020 05/2 023 Last Assessment & Plan: Assessment: hx, uses cane LBBB (left bundle branch block) 06/03/2018 03/25/2023 Last Assessment & Plan: Assessment: hx, per EKG, follows cardiology documented as of this encounter (statuses as of 05/10/2023) [facility] Past illness Narrative* Problem Noted Date Resolved Date Shortness of breath 10/30/2021 03/25/2023 Personal history of fall 07/28/20202 023 Last Assessment & Plan: Assessment: hx, uses cane LBBB (left bundle branch block) 06/03/2018 03/25/2023 Last Assessment & Plan: Assessment: hx, per EKG, follows cardiology documented as of this encounter (statuses as of 05/15/2023) [facility] of Present illness Narrative* Lorri [...] 26, 2021 2:52 PM documented in this encounterSt. [facility]09[facility] History of Past illness Narrative* Problem Noted Date Resolved Date History of falling 07/28/2020 11/15/2022 documented as of this encounter (statuses as of 11/24/2022) [facility] illness Narrative* Problem Noted Date Resolved Date History of falling 07/28/2020 11/15/2022 documented as of this encounter (statuses as of 11/26/2022) [facility] Narrative* Problem Noted Date Resolved Date History of falling 07/28/2020 11/15/2022 documented as of this encounter (statuses as of 12/07/2022) [place] [id number] History of Past illness Narrative* Problem Noted Date Resolved Date History of falling 07/28/2020 11/15/2022 documented as of this encounter (statuses as of 12/13/2022) [place] [id number] History of Past illness Narrative* Problem Noted Date Resolved Date History of falling 07/28/2020 11/15/2022 documented as of this encounter (statuses as of 12/18/2022) [place] [id number] History of Past illness Narrative* Problem Noted Date Resolved Date History of falling 07/28/2020 11/15/2022 documented as of this encounter (statuses as of 12/20/2022) [place] [id number] History of Past illness Narrative* Problem Noted Date Resolved Date History of falling 07/28/2020 11/15/2022 documented as of this encounter (statuses as of 12/27/2022) [place] [id number] History of Past illness Narrative* Problem Noted Date Resolved Date History of falling 07/28/2020 11/15/2022 documented as of this encounter (statuses as of 12/27/2022) [place] [address] History of Past illness Narrative* Problem Noted Date Resolved Date History of falling 07/28/2020 11/15/2022 documented as of this encounter (statuses as of 12/28/2022) [place] [id number] History of Past illness Narrative* Problem Noted Date Resolved Date History of falling 07/28/2020 11/15/2022 documented as of this encounter (statuses as of 12/28/2022) [place] [address] History of Past illness Narrative* Problem Noted Date Resolved Date History of falling 07/28/2020 11/15/2022 documented as of this encounter (statuses as of 12/28/2022) [place] [address] History of Past illness Narrative* Problem Noted Date Resolved Date History of falling 07/28/2020 11/15/2022 documented as of this encounter (statuses as of 01/30/2023) [place] [id number] History of Past illness Narrative* Problem Noted Date Resolved Date History of falling 07/28/2020 11/15/2022 documented as of this encounter (statuses as of 02/08/2023) [facility] [place] [facility] Diagnosis Anxiety state Anxiety state, unspecified [facility] [place] [facility]* Diagnosis Onychomycosis- Primary Dermatophytosis of nail Pain in toe of left foot Pain in limb Pain in toe of right foot Pain in limb Diabetic polyneuropathy associated with type 2 diabetes mellitus (HCC) Hyperkeratosis Acquired keratoderma Nevus Benign neoplasm of skin, site unspecified [facility] this [facility] [place] [facility]* Diagnosis Hypercalcemia- Primary Anemia, unspecified type [...] kidney and ureter [facility] this [facility] [place] [facility]* Diagnosis Hypercalcemia- Primary [facility]* Diagnosis Hyperparathyroidism (HCC)- Primary Hyperparathyroidism, unspecified Hypercalcemia [facility] this [facility] [place] [facility]* Diagnosis Onychomycosis- Primary Dermatophytosis of nail Pain in toe of left foot Pain in limb Pain in toe of right foot Pain in limb Diabetic polyneuropathy associated with type 2 diabetes mellitus (HCC) Hyperkeratosis Acquired keratoderma Nevus Benign neoplasm of skin, site unspecified [facility] Diagnosis Hyperlipidemia LDL goal <100 Other and unspecified hyperlipidemia Anxiety state Anxiety state, unspecified [facility] this [facility] [place] [facility]* Diagnosis Benign prostatic hyperplasia, unspecified whether lower urinary tract symptoms present- Primary [facility] this [facility] [place] [facility]* Diagnosis Primary hypertension- Primary Unspecified essential hypertension Atherosclerosis of [place] coronary artery of [place] heart without angina pectoris Hyperlipidemia LDL goal <100 Other and unspecified hyperlipidemia LBBB (left bundle branch block) Other left bundle branch block Cardiomyopathy, nonischemic (HCC) Other primary cardiomyopathies documented in this encounter [facility] note* Diagnosis Hyperlipidemia LDL goal <100 Other and unspecified hyperlipidemia documented in this encounter [facility] note* Diagnosis Hypercalcemia- Primary Primary hyperparathyroidism (HCC) Primary hyperparathyroidism documented in this encounter [facility] note* Diagnosis Onychomycosis- Primary Dermatophytosis of nail Pain in toe of left foot Pain in limb Pain in toe of right foot Pain in limb Diabetic polyneuropathy associated with type 2 diabetes mellitus (HCC) Xerosis cutis Other specified disease of sebaceous glands documented in this encounter [facility] note* Diagnosis Hyperparathyroidism (HCC)- Primary Hyperparathyroidism, unspecified documented in this encounter [facility] note* Diagnosis Primary hyperparathyroidism (HCC) Primary hyperparathyroidism documented in this encounter [facility] note* Diagnosis Hypercalcemia Hyperparathyroidism (HCC) Hyperparathyroidism, unspecified documented in this encounter [facility] note* Diagnosis Hypercalcemia documented in this encounter [facility] note* Diagnosis Hyperparathyroidism (HCC)- Primary Hyperparathyroidism, unspecified Hyperparathyroidism (HCC) Hyperparathyroidism, unspecified documented in this encounter [facility] note* Diagnosis Controlled type 2 diabetes mellitus with microalbuminuria, without long-term current use of insulin (HCC) Hyperparathyroidism (HCC) Hyperparathyroidism, unspecified documented in this encounter [facility] note* Diagnosis Gout, unspecified cause, unspecified chronicity, unspecified site Hyperparathyroidism (HCC) Hyperparathyroidism, unspecified documented in this encounter [facility] note* Diagnosis Hyperparathyroidism (HCC)- Primary Hyperparathyroidism, unspecified documented in this encounter [facility] note* Diagnosis Hyperparathyroidism (HCC)- Primary Hyperparathyroidism, unspecified [facility] [place] [facility]* Diagnosis Onset Date Resolution Status Generalized weakness acute Inability to walk acute Hypertension [facility] Work Phone: Evaluation note* Diagnosis Onset Date Resolution Status Effusion, right knee acute Generalized weakness acute Inability to walk acute Hypertension [facility] Work Phone: Evaluation note* Diagnosis Benign prostatic [...] lumbar intervertebral disc without myelopathy Atherosclerosis of [place] coronary artery of [place] heart without angina pectoris Cardiomyopathy, nonischemic [...] Anxiety state, unspecified [facility] Diagnosis Benign prostatic hyperplasia with urinary obstruction- Primary [facility] Diagnosis Benign prostatic hyperplasia with urinary obstruction- Primary Nocturia Poor urinary stream Slowing of urinary stream [facility] Diagnosis Benign prostatic hyperplasia with urinary retention- Primary Poor urinary stream Slowing of urinary stream BPH with obstruction/lower urinary tract symptoms Hypertrophy of prostate with urinary obstruction and other lower urinary tract symptoms (LUTS) Retention of urine, unspecified [facility]* Diagnosis Pre-op examination Preoperative examination, unspecified Benign prostatic hyperplasia with urinary retention Retention of urine, unspecified Hyperlipidemia LDL goal <100 Other and unspecified hyperlipidemia Primary hypertension Unspecified essential hypertension Atherosclerosis of [place] coronary artery of [place] heart without angina pectoris Cardiomyopathy, nonischemic [...] of urine, unspecified [facility] Diagnosis Urinary retention- Primary Retention of urine, unspecified Anemia, unspecified type Mild cognitive impairment with memory loss Mild cognitive impairment, so stated Atherosclerosis of [place] coronary artery of [place] heart without angina pectoris Cardiomyopathy, nonischemic [...] of urine, unspecified [facility] Benign prostatic hyperplasia with urinary retention- Primary [facility] Diagnosis Benign prostatic hyperplasia with urinary retention- Primary [facility] Diagnosis Left posterior capsular opacification- Primary After-cataract, unspecified Pseudophakia Lens replaced by other means Amblyopia, right eye Amblyopia, unspecified Hypertensive retinopathy, bilateral [facility]* Diagnosis MOISES (acute kidney injury) ([facility])- Primary Acute kidney failure, unspecified Anemia, unspecified type [facility] [place] [facility]* Diagnosis Onychomycosis- Primary Dermatophytosis of nail Pain in toe of left foot Pain in limb Pain in toe of right foot Pain in limb Xerosis cutis Other specified disease of sebaceous glands Callus of foot Corns and callosities Hammer toe of left foot Diabetic polyneuropathy associated with type 2 diabetes mellitus (HCC) [facility]* Diagnosis Benign prostatic hyperplasia with urinary obstruction [facility] this [facility] [place] [facility]* Diagnosis Gout, unspecified cause, unspecified chronicity, unspecified site Anxiety state Anxiety state, unspecified [facility] Diagnosis Onychomycosis- Primary Dermatophytosis of nail Pain in toe of left foot Pain in limb Pain in toe of right foot Pain in limb Callus of foot Corns and callosities Diabetic polyneuropathy associated with type 2 diabetes mellitus (HCC) Hammer toe of left foot [facility] Diagnosis Pre-operative examination- Primary Preoperative examination, unspecified Non-recurrent unilateral inguinal hernia without obstruction or gangrene Mild cognitive impairment with memory loss Mild cognitive impairment, so stated LBBB (left bundle branch block) Other left bundle branch block Hyperlipidemia LDL goal <100 Other and unspecified hyperlipidemia Essential hypertension, benign Atherosclerosis of coronary artery of [place] heart without angina pectoris, unspecified vessel [...] Degeneration of cervical intervertebral disc Atherosclerosis of [place] coronary artery of [place] heart without angina pectoris Benign prostatic [...] Primary hypertension Unspecified essential hypertension Atherosclerosis of [place] coronary artery of [place] heart without angina pectoris Cardiomyopathy, nonischemic (HCC) Other primary cardiomyopathies Type 2 diabetes mellitus with other specified complication, without long-term current use of insulin (HCC) Iron deficiency anemia, unspecified iron deficiency anemia type Arteriosclerosis of both carotid arteries Mild cognitive impairment with memory loss Mild cognitive impairment, so stated [facility] Diagnosis Pre-operative examination- Primary Preoperative examination, unspecified Non-recurrent unilateral inguinal hernia without obstruction or gangrene Mild cognitive impairment with memory loss Mild cognitive impairment, so stated LBBB (left bundle branch block) Other left bundle branch block Hyperlipidemia LDL goal <100 Other and unspecified hyperlipidemia Essential hypertension, benign Atherosclerosis of coronary artery of [place] heart without angina pectoris, unspecified vessel [...] Degeneration of cervical intervertebral disc Atherosclerosis of [place] coronary artery of [place] heart without angina pectoris Benign prostatic [...] Primary hypertension Unspecified essential hypertension Atherosclerosis of [place] coronary artery of [place] heart without angina pectoris Cardiomyopathy, nonischemic [...] of left foot [facility] Diagnosis Pre-operative examination- Primary Preoperative examination, unspecified Non-recurrent unilateral inguinal hernia without obstruction or gangrene Mild cognitive impairment with memory loss Mild cognitive impairment, so stated LBBB (left bundle branch block) Other left bundle branch block Hyperlipidemia LDL goal <100 Other and unspecified hyperlipidemia Essential hypertension, benign Atherosclerosis of coronary artery of [place] heart without angina pectoris, unspecified vessel [...] Degeneration of cervical intervertebral disc Atherosclerosis of [place] coronary artery of [place] heart without angina pectoris Benign prostatic [...] Primary hypertension Unspecified essential hypertension Atherosclerosis of [place] coronary artery of [place] heart without angina pectoris Cardiomyopathy, nonischemic [...] Incomplete bladder emptying [facility] [place] [facility] Diagnosis Pre-operative examination- Primary Preoperative examination, unspecified Non-recurrent unilateral inguinal hernia without obstruction or gangrene Mild cognitive impairment with memory loss Mild cognitive impairment, so stated LBBB (left bundle branch block) Other left bundle branch block Hyperlipidemia LDL goal <100 Other and unspecified hyperlipidemia Essential hypertension, benign Atherosclerosis of coronary artery of [place] heart without angina pectoris, unspecified vessel [...] Degeneration of cervical intervertebral disc Atherosclerosis of [place] coronary artery of [place] heart without angina pectoris Benign prostatic [...] Primary hypertension Unspecified essential hypertension Atherosclerosis of [place] coronary artery of [place] heart without angina pectoris Cardiomyopathy, nonischemic [...] vaccination against single bacterial disease Atherosclerosis of [place] coronary artery of [place] heart without angina pectoris Hyperlipidemia LDL [...] chronicity, unspecified site [facility] Diagnosis Pre-operative examination- Primary Preoperative examination, unspecified Non-recurrent unilateral inguinal hernia without obstruction or gangrene Mild cognitive impairment with memory loss Mild cognitive impairment, so stated LBBB (left bundle branch block) Other left bundle branch block Hyperlipidemia LDL goal <100 Other and unspecified hyperlipidemia Essential hypertension, benign Atherosclerosis of coronary artery of [place] heart without angina pectoris, unspecified vessel [...] Degeneration of cervical intervertebral disc Atherosclerosis of [place] coronary artery of [place] heart without angina pectoris Benign prostatic [...] Primary hypertension Unspecified essential hypertension Atherosclerosis of [place] coronary artery of [place] heart without angina pectoris Cardiomyopathy, nonischemic [...] CKD (HCC)- Primary [facility] Diagnosis Pre-operative examination- Primary Preoperative examination, unspecified Non-recurrent unilateral inguinal hernia without obstruction or gangrene Mild cognitive impairment with memory loss Mild cognitive impairment, so stated LBBB (left bundle branch block) Other left bundle branch block Hyperlipidemia LDL goal <100 Other and unspecified hyperlipidemia Essential hypertension, benign Atherosclerosis of coronary artery of [place] heart without angina pectoris, unspecified vessel [...] Degeneration of cervical intervertebral disc Atherosclerosis of [place] coronary artery of [place] heart without angina pectoris Benign prostatic [...] Primary hypertension Unspecified essential hypertension Atherosclerosis of [place] coronary artery of [place] heart without angina pectoris Cardiomyopathy, nonischemic [...] Corns and callosities [facility] Diagnosis Pre-operative examination- Primary Preoperative examination, unspecified Non-recurrent unilateral inguinal hernia without obstruction or gangrene Mild cognitive impairment with memory loss Mild cognitive impairment, so stated LBBB (left bundle branch block) Other left bundle branch block Hyperlipidemia LDL goal <100 Other and unspecified hyperlipidemia Essential hypertension, benign Atherosclerosis of coronary artery of [place] heart without angina pectoris, unspecified vessel [...] Degeneration of cervical intervertebral disc Atherosclerosis of [place] coronary artery of [place] heart without angina pectoris Benign prostatic [...] Primary hypertension Unspecified essential hypertension Atherosclerosis of [place] coronary artery of [place] heart without angina pectoris Cardiomyopathy, nonischemic (HCC) Other primary cardiomyopathies Type 2 diabetes mellitus with other specified complication, without long-term current use of insulin (HCC) Iron deficiency anemia, unspecified iron deficiency anemia type Arteriosclerosis of both carotid arteries Mild cognitive impairment with memory loss Mild cognitive impairment, so stated Hyperlipidemia LDL goal <100 Other and unspecified hyperlipidemia documented [facility] this [facility] Diagnosis Pre-operative examination- Primary Preoperative examination, unspecified Non-recurrent unilateral inguinal hernia without obstruction or gangrene Mild cognitive impairment with memory loss Mild cognitive impairment, so stated LBBB (left bundle branch block) Other left bundle branch block Hyperlipidemia LDL goal <100 Other and unspecified hyperlipidemia Essential hypertension, benign Atherosclerosis of coronary artery of [place] heart without angina pectoris, unspecified vessel [...] Degeneration of cervical intervertebral disc Atherosclerosis of [place] coronary artery of [place] heart without angina pectoris Benign prostatic [...] Primary hypertension Unspecified essential hypertension Atherosclerosis of [place] coronary artery of [place] heart without angina pectoris Cardiomyopathy, nonischemic (HCC) Other primary cardiomyopathies Type 2 diabetes mellitus with other specified complication, without long-term current use of insulin (HCC) Iron deficiency anemia, unspecified iron deficiency anemia type Arteriosclerosis of both carotid arteries Mild cognitive impairment with memory loss Mild cognitive impairment, so stated Benign prostatic hyperplasia with urinary obstruction documented [facility] Author Dr. Morgan [facility] March 06, 2023 1:05am Note Date/Time March 06, 2023 12: 37am [facility] Medical Records Department [address] [place] [id number] History & Physical Exam 03/06/23 0024 MR#: [id number] Acct: [id number] Name: MICHAEL MULLINS Rep #:[id number] : 1940 82 From: Paty Morgan MD PCP: Dr. Antony Espinoza MD Status:ADM I NO Location: [facility] [place] [id number] HPI - General General Date of Admission: [...] anxiety and Depression who presents to the [facility] ED on 03/06/23 with history of increasing [...] patient ministered 1 L normal saline bolus. [facility] Medical History Alzheimer's disease Anxiety Benign [...] 75.4 H, Lymph % (Auto) 13.3 L, Ralls % (Auto) 9.3, Eos % (Auto) 1.4, [...] Clarity Clear, Urine pH 8.0, Ur Specific [place] 1.010, Urine Protein 100 H, Urine Glucose [...] 23:14 EDT Reading Location ID and State: [facility] / [place] Tel , Service support , Assessment & Plan Assessment/Plan (1) Generalized weakness: PLAN: Plan The patient is an 82 y/o M w/ PMHx: Alzheimer's disease, Hairy Cell Leukemia following w/ Dr. Andrade Dx 1982, Chronic Systolic CHF, HTH, HLD Gout, Diabetes mellitus type II, BPH, Chronic anemia/iron deficiency anemia anxiety and Depression who presents to the [facility] ED on 03/06/23 with history of increasing [...] 55 minutes. Charges/Coding Visit Charges Inpatient E&M: 45161 Init Hosp L2 Procedures Hospitalists Procedures: 97280 Advncd Care Plan 30 Min 03/06/23 0105 <Electronically signed by Paty Morgan MD> Cosigner Signature (if applicable): CC: Dr. Paty Morgan MD; Dr. Antony Espinoza MD~ Signed [facility] Work Phone: Patient's home Plan of care note* Visit Details Visit Type -SN SOC Discipline -Residential Problems Problem Description Start Date Status Goals [...] to notify physician. documented in this encounter [facility]'s home Plan of care note* Visit Details [...] and weight tracking. [facility] Visit Details Visit Type -CURRICULUM MANAGER ROUTINE Discipline -Physical Therapy Problems Problem [...] and activity guidelines. documented in this encounter [facility]'s home Plan of care note* Visit Details Visit Type -CURRICULUM MANAGER ROUTINE Discipline -Physical Therapy Problems Problem [...] home exercise program. documented in this encounter [facility]'s home Plan of care note* Visit Details Visit Type -SN ROUTINE Discipline -Residential Problems Problem Description Start Date Status Goals [...] earlier this week. documented in this encounter [facility]'s home Plan of care note* Visit Details Visit Type -CURRICULUM MANAGER ROUTINE Discipline -Physical Therapy Problems Problem [...] and activity guidelines. documented in this encounter [facility]'s home Plan of care note* Visit Details Visit Type -CURRICULUM MANAGER ROUTINE Discipline -Physical Therapy Problems Problem [...] home exercise program. [facility] Visit Details Visit Type -CURRICULUM MANAGER ROUTINE Discipline -Physical Therapy Problems Problem [...] on energy conservation. [facility]* Visit [...] home exercise program. [facility]* Visit [...] scheduled/documen deangelo intervention 1 goal intervention scheduled/documen deaneglo in this visit Risk for Falls Disciplines: [...] and activity guidelines. documented in this encounter [facility] for referral (narrative)* Outpatient Procedure (Routine) - Authorized Specialty Diagnoses / Procedures Referred By Contac t Referred To Contact [facility] Diagnoses Arteriosclerosis of both carotid arteries Procedures US CAROTID ARTERIES WILY VAS LAB DUPLEX SCAN EXTRACRANIAL ART COMPL BI STUDY Antony Espinoza MD [address] [place] [address] [facility] [place] [address] [place] [address] Referral ID Status Reason Start Date Expiration Date Visits Requested Visits Authorized [id number] Authorized Auto-Generat ed Referral 05/07/2022 05/07/2023 1 1 [facility] for referral (narrative)* Diagnostic Procedure Only (Routine) - Pending Review Specialty Diagnoses / Procedures Referred By Contac t Referred To Contact XR IMAGING Diagnoses Hypercalcemia Hyperparathyroidism (HCC) Procedures DXA-FOREARM SKELETON DXA BONE DENSITY STUDY 1/>SITES Shanthi Aguilera MD [address] [place] [address] Xr Imaging Referral ID Status Reason Start Date Expiration Date Visits Requested Visits Authorized [id number] Pending Review Auto-Generat ed Referral 06/05/2022 07/05/2023 1 1 [facility] for referral (narrative)* Diagnostic Procedure Only (Routine) - Closed Specialty Diagnoses / Procedures Referred By Contac t Referred To Contact XR IMAGING Diagnoses Hypercalcemia Hyperparathyroidism (HCC) Procedures DXA-FOREARM SKELETON DXA BONE DENSITY STUDY 1/>SITES Shanthi Aguilera MD [address] [place] [address] Xr Imaging Referral ID Status Reason Start Date Expiration Date V isits Requested Visits Authorized [id number] Closed Auto-Generate d Referral 06/05/2022 07/05/2023 1 1 [facility] for referral (narrative)* Diagnostic Procedure Only (Routine) - Closed Specialty Diagnoses / Procedures Referred By Contac t Referred To Contact MOLECULAR & FUNCTIONAL IMAGING Diagnoses Hypercalcemia Procedures NM PARATHYROID W SPECT/CT PARATHYROID IMAGING W/TOMOGRAPHIC SPECT & CT Shanthi Rangel MD [address] [place] [address] Molecular [facility] [address] [place] [address] Referral ID Status Reason Start Date Expiration Date V isits Requested Visits Authorized [id number] Closed Auto-Generate d Referral 12/20/2022 02/03/2023 1 1 [facility] for referral (narrative)* Outpatient Procedure (Routine) - Pending Review Specialty Diagnoses / Procedures [facility] Diagnoses Benign prostatic hyperplasia with urinary obstruction Procedures TRUS ONLY US, TRANSRECTAL Shaji Gaona MD [address] [place] [address] [facility] [address] [place] [address] Referral ID Status Reason Start Date Expiration Date Visits Requested Visits Authorized [id number] Pending Review Auto-Generat ed Referral 2023 2024 1 1 [facility] for visit Narrative* Diagnostic Procedure Only (Routine) - Closed Specialty Diagnoses / Procedures Referred By Contac t Referred To Contact XR IMAGING Diagnoses Hypercalcemia Hyperparathyroidism (HCC) Procedures DXA-FOREARM SKELETON DXA BONE DENSITY STUDY 1/>SITES APPENDICLR Shanthi Michelle MD [address] [place] [address] Xr Imaging Referral ID Status Reason Start Date Expiration Date V isits Requested Visits Authorized [id number] Closed Auto-Generate d Referral 06/05/2022 07/05/[address] [facility]* Diagnostic Procedure Only (Routine) - Closed Specialty Diagnoses / Procedures Referred By Contac t Referred To Contact MOLECULAR & FUNCTIONAL IMAGING Diagnoses Hypercalcemia Procedures NM PARATHYROID W SPECT/CT PARATHYROID IMAGING W/TOMOGRAPHIC SPECT & CT Shanthi Rangel MD [address] [place] [address] [facility] [address] [place] [address] Referral ID Status Reason Start Date Expiration Date V isits Requested Visits Authorized [id number] Closed Auto-Generate d Referral 12/20/2022 02/03/[address] 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 Advance Directive(s) 03/20/2023 1:29 PM Date Activated Date Inactivated Comments 03/19/2023 9:34 PM 05/23/2023 8:32 AM Latest Code Status on File Code Status Date Activated Date Inactivated Comments Full Code 03/19/2023 9:34 PM Documents on File Type Date Recorded 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 Advance Directive(s) 08/29/2020 6:48 AM Advance Directive(s) 08/11/2020 10:04 AM Advance Directive(s) 06/03/2018 7:39 AM Documents on File Type Date Recorded 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 Advance Directive(s) 08/29/2020 6:48 AM Advance Directive(s) 08/11/2020 10:04 AM Advance Directive(s) 06/03/2018 7:39 AM Advance Directive Response Recorded Date/ Time Name of Medical Power of Kettle Operator Head alex escobar March 05, 2023 9:33pm Advance Directives Yes November 25, 2015 6:44pm Living Will Yes March 05, 2023 9:33pm Power of Kettle Operator Head Yes March 05 9:33pm Advance Directive Response Recorded Date/ Time Name of Medical Power of Kettle Operator Head alex escobar March 06, 2023 1:27am Advance Directives Yes November 25, 2015 6:44pm Living Will Yes March 06, 2023 1:27am Power of Kettle Operator Head Yes March 06 1:27am Documents on File Type Date Recorded 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 Advance Directive(s) 03/20/2023 1:29 PM [...] Diagnoses Hypercalcemia Procedures CONSULT TO ENDOCRINOLOGY OFFICE/OUTPATIENT [facility] 60-74 MINUTES Antony Espinoza MD [address] [place] [address] Referral ID Status Reason Start Date Expiration Date Visits Requested Visits Authorized [id number] Authorized PCP Requested Referral 05/09/2022 05/09/2023 1 1 Specialty Diagnoses / Procedures Referred By Arya t Referred To Contact Diagnoses Primary hyperparathyroidism (HCC) Procedures CONSULT TO ENDOCRINE SURGERY OFFICE/OUTPATIENT [facility] 60-74 MINUTES Shanthi Rangel MD [address] [place] [address] Referral ID Status Reason Start Date Expiration Date Visits Requested Visits Authorized [id number] Authorized PCP Requested Referral 12/13/2022 12/13/2023 1 1 Specialty Diagnoses / Procedures Referred By Arya t Referred To Contact MOLECULAR & FUNCTIONAL IMAGING Diagnoses Hypercalcemia Procedures NM PARATHYROID W SPECT/CT PARATHYROID IMAGING W/TOMOGRAPHIC SPECT & CT Shanthi Rangel MD [address] [place] [address] Molecular [facility] [address] [place] [address] Referral ID Status Reason Start Date Expiration Date Visits Requested Visits Authorized [id number] Pending Review Auto-Generat ed Referral 12/13/2022 01/12/2024 1 1 Specialty Diagnoses / Procedures Referred By Contac t Referred To Contact Diagnoses Hyperparathyroidism (HCC) Procedures IN PERSON [facility] Blanche Munoz MD [address] [place] [address] Referral ID Status Reason Start Date Expiration Date Visits Requested Visits Authorized [id number] Ref Not Required PCP Requested Referral 12/28/2022 03/27/2023 1 1 Specialty Diagnoses / Procedures Referred By Contac t Referred To Contact [facility] Diagnoses Hyperparathyroidism (HCC) Procedures ECG COMPLETE ECG ROUTINE ECG W/LEAST 12 LDS W/I&R Blanche Munoz MD [address] [place] [address] Heart [facility] [address] [address] Referral ID Status Reason Start Date Expiration Date Visits Requested Visits Authorized [id number] Pending Review Auto-Generat ed Referral 12/28/2022 12/27/2023 1 1 Specialty Diagnoses / Procedures Referred By Contac t Referred To Contact Cardiology Diagnoses Cardiomyopathy, nonischemic (HCC) Chronic systolic heart failure (HCC) Controlled type 2 diabetes mellitus with microalbuminuria, without long-term current use of insulin (HCC) (HCC) Procedures CONSULT TO CARDIOLOGY OFFICE/OUTPATIENT [facility] 60 MINUTES Antony Espinoza MD [address] [place] [address] Referral ID Status Reason Start Date Expiration Date Visits Requested Visits Authorized [id number] Authorized PCP Requested Referral 4 11/13/2025 1 1 Specialty Diagnoses / Procedures Referred By Contac t Referred To Contact Nephrology Diagnoses Stage 3 chronic kidney disease, unspecified whether stage 3a or 3b CKD (HCC) Procedures CONSULT TO NEPHROLOGY OFFICE/OUTPATIENT [facility] 60 MINUTES Antony Espinoza MD [address] [place] [address] Referral ID Status Reason Start Date Expiration Date Visits Requested Visits Authorized [id number] Authorized PCP Requested Referral 4 11/16/2025 1 [...] section and content) DATE CREATED AUTHOR 08/29/2020 [facility] DATE CREATED AUTHOR AUTHOR'S ORGANIZ ATION 03/04/2023 [facility] DATE CREATED AUTHOR AUTHOR'S ORGANIZ ATION 05/12/2024 [facility] DATE CREATED AUTHOR AUTHOR'S ORGANIZ ATION 10/04/2024 [facility] DATE CREATED AUTHOR AUTHOR'S ORGANIZ ATION 04/15/2025 [facility] Source Comments (unrecognize d section and content) In the event this informatio n is protected by the Federal Confidentiality of Alcohol and Drug Abuse Patient Records regulations: The Federal rules restrict any use of the information to criminally investigate or prosecute any alcohol or drug abuse patient.[facility] the event this information is protected by the Federal Confidentiality of Alcohol and Drug Abuse Patient Records regulations: The Federal rules restrict any use of the information to criminally investigate or prosecute any alcohol or drug abuse patient.[facility] the event this information is protected by the Federal Confidentiality of Alcohol and Drug Abuse Patient Records regulations: The Federal rules restrict any use of the information to criminally investigate or prosecute any alcohol or drug abuse patient.[facility] the event this information is protected by the Federal Confidentiality of Alcohol and Drug Abuse Patient Records regulations: The Federal rules restrict any use of the information to criminally investigate or prosecute any alcohol or drug abuse patient.[facility] the event this information is protected by the Federal Confidentiality of Alcohol and Drug Abuse Patient Records regulations: The Federal rules restrict any use of the information to criminally investigate or prosecute any alcohol or drug abuse patient.[facility] the event this information is protected by the Federal Confidentiality of Alcohol and Drug Abuse Patient Records regulations: The Federal rules restrict any use of the information to criminally investigate or prosecute any alcohol or drug abuse patient.[facility] the event this information is protected by the Federal Confidentiality of Alcohol and Drug Abuse Patient Records regulations: The Federal rules restrict any use of the information to criminally investigate or prosecute any alcohol or drug abuse patient.[facility] the event this information is protected by the Federal Confidentiality of Alcohol and Drug Abuse Patient Records regulations: The Federal rules restrict any use of the information to criminally investigate or prosecute any alcohol or drug abuse patient.[facility] the event this information is protected by the Federal Confidentiality of Alcohol and Drug Abuse Patient Records regulations: The Federal rules restrict any use of the information to criminally investigate or prosecute any alcohol or drug abuse patient.[facility] the event this information is protected by the Federal Confidentiality of Alcohol and Drug Abuse Patient Records regulations: The Federal rules restrict any use of the information to criminally investigate or prosecute any alcohol or drug abuse patient.[facility] the event this information is protected by the Federal Confidentiality of Alcohol and Drug Abuse Patient Records regulations: The Federal rules restrict any use of the information to criminally investigate or prosecute any alcohol or drug abuse patient.[facility] the event this information is protected by the Federal Confidentiality of Alcohol and Drug Abuse Patient Records regulations: The Federal rules restrict any use of the information to criminally investigate or prosecute any alcohol or drug abuse patient.[facility] Hospital[facility] the event this information is protected by the Federal Confidentiality of Alcohol and Drug Abuse Patient Records regulations: The Federal rules restrict any use of the information to criminally investigate or prosecute any alcohol or drug abuse patient.[facility] Hospital[facility] the event this information is protected by the Federal Confidentiality of Alcohol and Drug Abuse Patient Records regulations: The Federal rules restrict any use of the information to criminally investigate or prosecute any alcohol or drug abuse patient.[facility] Hospital[facility] the event this information is protected by the Federal Confidentiality of Alcohol and Drug Abuse Patient Records regulations: The Federal rules restrict any use of the information to criminally investigate or prosecute any alcohol or drug abuse patient.[facility] HospitalIn the event this information is protected by the Federal Confidentiality of Alcohol and Drug Abuse Patient Records regulations: The Federal rules restrict any use of the information to criminally investigate or prosecute any alcohol or drug abuse patient.[facility] HospitalIn the event this information is protected by the Federal Confidentiality of Alcohol and Drug Abuse Patient Records regulations: The Federal rules restrict any use of the information to criminally investigate or prosecute any alcohol or drug abuse patient.[facility] HospitalIn the event this information is protected by the Federal Confidentiality of Alcohol and Drug Abuse Patient Records regulations: The Federal rules restrict any use of the information to criminally investigate or prosecute any alcohol or drug abuse patient.[facility] HospitalIn the event this information is protected by the Federal Confidentiality of Alcohol and Drug Abuse Patient Records regulations: The Federal rules restrict any use of the information to criminally investigate or prosecute any alcohol or drug abuse patient.[facility] HospitalIn the event this information is protected by the Federal Confidentiality of Alcohol and Drug Abuse Patient Records regulations: The Federal rules restrict any use of the information to criminally investigate or prosecute any alcohol or drug abuse patient.[facility] HospitalIn the event this information is protected by the Federal Confidentiality of Alcohol and Drug Abuse Patient Records regulations: The Federal rules restrict any use of the information to criminally investigate or prosecute any alcohol or drug abuse patient.[facility] HospitalIn the event this information is protected by the Federal Confidentiality of Alcohol and Drug Abuse Patient Records regulations: The Federal rules restrict any use of the information to criminally investigate or prosecute any alcohol or drug abuse patient.[facility] HospitalIn the event this information is protected by the Federal Confidentiality of Alcohol and Drug Abuse Patient Records regulations: The Federal rules restrict any use of the information to criminally investigate or prosecute any alcohol or drug abuse patient.[facility] HospitalIn the event this information is protected by the Federal Confidentiality of Alcohol and Drug Abuse Patient Records regulations: The Federal rules restrict any use of the information to criminally investigate or prosecute any alcohol or drug abuse patient.[facility] HospitalIn the event this information is protected by the Federal Confidentiality of Alcohol and Drug Abuse Patient Records regulations: The Federal rules restrict any use of the information to criminally investigate or prosecute any alcohol or drug abuse patient.[facility] HospitalIn the event this information is protected by the Federal Confidentiality of Alcohol and Drug Abuse Patient Records regulations: The Federal rules restrict any use of the information to criminally investigate or prosecute any alcohol or drug abuse patient.[facility] HospitalIn the event this information is protected by the Federal Confidentiality of Alcohol and Drug Abuse Patient Records regulations: The Federal rules restrict any use of the information to criminally investigate or prosecute any alcohol or drug abuse patient.[facility] HospitalIn the event this information is protected by the Federal Confidentiality of Alcohol and Drug Abuse Patient Records regulations: The Federal rules restrict any use of the information to criminally investigate or prosecute any alcohol or drug abuse patient.[facility] HospitalIn the event this information is protected by the Federal Confidentiality of Alcohol and Drug Abuse Patient Records regulations: The Federal rules restrict any use of the information to criminally investigate or prosecute any alcohol or drug abuse patient.[facility] HospitalIn the event this information is protected by the Federal Confidentiality of Alcohol and Drug Abuse Patient Records regulations: The Federal rules restrict any use of the information to criminally investigate or prosecute any alcohol or drug abuse patient.[facility] HospitalIn the event this information is protected by the Federal Confidentiality of Alcohol and Drug Abuse Patient Records regulations: The Federal rules restrict any use of the information to criminally investigate or prosecute any alcohol or drug abuse patient.[facility] HospitalIn the event this information is protected by the Federal Confidentiality of Alcohol and Drug Abuse Patient Records regulations: The Federal rules restrict any use of the information to criminally investigate or prosecute any alcohol or drug abuse patient.[facility] HospitalIn the event this information is protected by the Federal Confidentiality of Alcohol and Drug Abuse Patient Records regulations: The Federal rules restrict any use of the information to criminally investigate or prosecute any alcohol or drug abuse patient.[facility] HospitalIn the event this information is protected by the Federal Confidentiality of Alcohol and Drug Abuse Patient Records regulations: The Federal rules restrict any use of the information to criminally investigate or prosecute any alcohol or drug abuse patient.[facility] HospitalIn the event this information is protected by the Federal Confidentiality of Alcohol and Drug Abuse Patient Records regulations: The Federal rules restrict any use of the information to criminally investigate or prosecute any alcohol or drug abuse patient.[facility] HospitalIn the event this information is protected by the Federal Confidentiality of Alcohol and Drug Abuse Patient Records regulations: The Federal rules restrict any use of the information to criminally investigate or prosecute any alcohol or drug abuse patient.[facility] HospitalIn the event this information is protected by the Federal Confidentiality of Alcohol and Drug Abuse Patient Records regulations: The Federal rules restrict any use of the information to criminally investigate or prosecute any alcohol or drug abuse patient.[facility] HospitalIn the event this information is protected by the Federal Confidentiality of Alcohol and Drug Abuse Patient Records regulations: The Federal rules restrict any use of the information to criminally investigate or prosecute any alcohol or drug abuse patient.[facility] HospitalIn the event this information is protected by the Federal Confidentiality of Alcohol and Drug Abuse Patient Records regulations: The Federal rules restrict any use of the information to criminally investigate or prosecute any alcohol or drug abuse patient.[facility] HospitalIn the event this information is protected by the Federal Confidentiality of Alcohol and Drug Abuse Patient Records regulations: The Federal rules restrict any use of the information to criminally investigate or prosecute any alcohol or drug abuse patient.[facility] HospitalIn the event this information is protected by the Federal Confidentiality of Alcohol and Drug Abuse Patient Records regulations: The Federal rules restrict any use of the information to criminally investigate or prosecute any alcohol or drug abuse patient.[facility] HospitalIn the event this information is protected by the Federal Confidentiality of Alcohol and Drug Abuse Patient Records regulations: The Federal rules restrict any use of the information to criminally investigate or prosecute any alcohol or drug abuse patient.[facility] HospitalIn the event this information is protected by the Federal Confidentiality of Alcohol and Drug Abuse Patient Records regulations: The Federal rules restrict any use of the information to criminally investigate or prosecute any alcohol or drug abuse patient.[facility] HospitalIn the event this information is protected by the Federal Confidentiality of Alcohol and Drug Abuse Patient Records regulations: The Federal rules restrict any use of the information to criminally investigate or prosecute any alcohol or drug abuse patient.[facility] HospitalIn the event this information is protected by the Federal Confidentiality of Alcohol and Drug Abuse Patient Records regulations: The Federal rules restrict any use of the information to criminally investigate or prosecute any alcohol or drug abuse patient.[facility] HospitalIn the event this information is protected by the Federal Confidentiality of Alcohol and Drug Abuse Patient Records regulations: The Federal rules restrict any use of the information to criminally investigate or prosecute any alcohol or drug abuse patient.[facility] HospitalIn the event this information is protected by the Federal Confidentiality of Alcohol and Drug Abuse Patient Records regulations: The Federal rules restrict any use of the information to criminally investigate or prosecute any alcohol or drug abuse patient.[facility] HospitalIn the event this information is protected by the Federal Confidentiality of Alcohol and Drug Abuse Patient Records regulations: The Federal rules restrict any use of the information to criminally investigate or prosecute any alcohol or drug abuse patient.[facility] HospitalIn the event this information is protected by the Federal Confidentiality of Alcohol and Drug Abuse Patient Records regulations: The Federal rules restrict any use of the information to criminally investigate or prosecute any alcohol or drug abuse patient.[facility] HospitalIn the event this information is protected by the Federal Confidentiality of Alcohol and Drug Abuse Patient Records regulations: The Federal rules restrict any use of the information to criminally investigate or prosecute any alcohol or drug abuse patient.[facility] HospitalIn the event this information is protected by the Federal Confidentiality of Alcohol and Drug Abuse Patient Records regulations: The Federal rules restrict any use of the information to criminally investigate or prosecute any alcohol or drug abuse patient.[facility] HospitalIn the event this information is protected by the Federal Confidentiality of Alcohol and Drug Abuse Patient Records regulations: The Federal rules restrict any use of the information to criminally investigate or prosecute any alcohol or drug abuse patient.[facility] HospitalIn the event this information is protected by the Federal Confidentiality of Alcohol and Drug Abuse Patient Records regulations: The Federal rules restrict any use of the information to criminally investigate or prosecute any alcohol or drug abuse patient.[facility] HospitalIn the event this information is protected by the Federal Confidentiality of Alcohol and Drug Abuse Patient Records regulations: The Federal rules restrict any use of the information to criminally investigate or prosecute any alcohol or drug abuse patient.[facility] HospitalIn the event this information is protected by the Federal Confidentiality of Alcohol and Drug Abuse Patient Records regulations: The Federal rules restrict any use of the information to criminally investigate or prosecute any alcohol or drug abuse patient.[facility] HospitalIn the event this information is protected by the Federal Confidentiality of Alcohol and Drug Abuse Patient Records regulations: The Federal rules restrict any use of the information to criminally investigate or prosecute any alcohol or drug abuse patient.[facility] HospitalIn the event this information is protected by the Federal Confidentiality of Alcohol and Drug Abuse Patient Records regulations: The Federal rules restrict any use of the information to criminally investigate or prosecute any alcohol or drug abuse patient.[facility] HospitalIn the event this information is protected by the Federal Confidentiality of Alcohol and Drug Abuse Patient Records regulations: The Federal rules restrict any use of the information to criminally investigate or prosecute any alcohol or drug abuse patient.[facility] HospitalIn the event this information is protected by the Federal Confidentiality of Alcohol and Drug Abuse Patient Records regulations: The Federal rules restrict any use of the information to criminally investigate or prosecute any alcohol or drug abuse patient.[facility] HospitalIn the event this information is protected by the Federal Confidentiality of Alcohol and Drug Abuse Patient Records regulations: The Federal rules restrict any use of the information to criminally investigate or prosecute any alcohol or drug abuse patient.[facility] HospitalIn the event this information is protected by the Federal Confidentiality of Alcohol and Drug Abuse Patient Records regulations: The Federal rules restrict any use of the information to criminally investigate or prosecute any alcohol or drug abuse patient.[facility] HospitalIn the event this information is protected by the Federal Confidentiality of Alcohol and Drug Abuse Patient Records regulations: The Federal rules restrict any use of the information to criminally investigate or prosecute any alcohol or drug abuse patient.[facility] HospitalIn the event this information is protected by the Federal Confidentiality of Alcohol and Drug Abuse Patient Records regulations: The Federal rules restrict any use of the information to criminally investigate or prosecute any alcohol or drug abuse patient.[facility] HospitalIn the event this information is protected by the Federal Confidentiality of Alcohol and Drug Abuse Patient Records regulations: The Federal rules restrict any use of the information to criminally investigate or prosecute any alcohol or drug abuse patient.[facility] HospitalIn the event this information is protected by the Federal Confidentiality of Alcohol and Drug Abuse Patient Records regulations: The Federal rules restrict any use of the information to criminally investigate or prosecute any alcohol or drug abuse patient.[facility] HospitalIn the event this information is protected by the Federal Confidentiality of Alcohol and Drug Abuse Patient Records regulations: The Federal rules restrict any use of the information to criminally investigate or prosecute any alcohol or drug abuse patient.[facility] HospitalIn the event this information is protected by the Federal Confidentiality of Alcohol and Drug Abuse Patient Records regulations: The Federal rules restrict any use of the information to criminally investigate or prosecute any alcohol or drug abuse patient.[facility] HospitalIn the event this information is protected by the Federal Confidentiality of Alcohol and Drug Abuse Patient Records regulations: The Federal rules restrict any use of the information to criminally investigate or prosecute any alcohol or drug abuse patient.[facility] HospitalIn the event this information is protected by the Federal Confidentiality of Alcohol and Drug Abuse Patient Records regulations: The Federal rules restrict any use of the information to criminally investigate or prosecute any alcohol or drug abuse patient.[facility] HospitalIn the event this information is protected by the Federal Confidentiality of Alcohol and Drug Abuse Patient Records regulations: The Federal rules restrict any use of the information to criminally investigate or prosecute any alcohol or drug abuse patient.[facility] HospitalIn the event this information is protected by the Federal Confidentiality of Alcohol and Drug Abuse Patient Records regulations: The Federal rules restrict any use of the information to criminally investigate or prosecute any alcohol or drug abuse patient.[facility] HospitalIn the event this information is protected by the Federal Confidentiality of Alcohol and Drug Abuse Patient Records regulations: The Federal rules restrict any use of the information to criminally investigate or prosecute any alcohol or drug abuse patient.[facility] HospitalIn the event this information is protected by the Federal Confidentiality of Alcohol and Drug Abuse Patient Records regulations: The Federal rules restrict any use of the information to criminally investigate or prosecute any alcohol or drug abuse patient.[facility] HospitalIn the event this information is protected by the Federal Confidentiality of Alcohol and Drug Abuse Patient Records regulations: The Federal rules restrict any use of the information to criminally investigate or prosecute any alcohol or drug abuse patient.[facility] HospitalIn the event this information is protected by the Federal Confidentiality of Alcohol and Drug Abuse Patient Records regulations: The Federal rules restrict any use of the information to criminally investigate or prosecute any alcohol or drug abuse patient.[facility] HospitalIn the event this information is protected by the Federal Confidentiality of Alcohol and Drug Abuse Patient Records regulations: The Federal rules restrict any use of the information to criminally investigate or prosecute any alcohol or drug abuse patient.[facility] HospitalIn the event this information is protected by the Federal Confidentiality of Alcohol and Drug Abuse Patient Records regulations: The Federal rules restrict any use of the information to criminally investigate or prosecute any alcohol or drug abuse patient.[facility] HospitalIn the event this information is protected by the Federal Confidentiality of Alcohol and Drug Abuse Patient Records regulations: The Federal rules restrict any use of the information to criminally investigate or prosecute any alcohol or drug abuse patient.[facility] HospitalIn the event this information is protected by the Federal Confidentiality of Alcohol and Drug Abuse Patient Records regulations: The Federal rules restrict any use of the information to criminally investigate or prosecute any alcohol or drug abuse patient.[facility] HospitalIn the event this information is protected by the Federal Confidentiality of Alcohol and Drug Abuse Patient Records regulations: The Federal rules restrict any use of the information to criminally investigate or prosecute any alcohol or drug abuse patient.[facility] HospitalIn the event this information is protected by the Federal Confidentiality of Alcohol and Drug Abuse Patient Records regulations: The Federal rules restrict any use of the information to criminally investigate or prosecute any alcohol or drug abuse patient.[facility] HospitalIn the event this information is protected by the Federal Confidentiality of Alcohol and Drug Abuse Patient Records regulations: The Federal rules restrict any use of the information to criminally investigate or prosecute any alcohol or drug abuse patient.[facility] HospitalIn the event this information is protected by the Federal Confidentiality of Alcohol and Drug Abuse Patient Records regulations: The Federal rules restrict any use of the information to criminally investigate or prosecute any alcohol or drug abuse patient.[facility] HospitalIn the event this information is protected by the Federal Confidentiality of Alcohol and Drug Abuse Patient Records regulations: The Federal rules restrict any use of the information to criminally investigate or prosecute any alcohol or drug abuse patient.[facility] Reason for Visit (unrecogniz ed section [...] Diagnoses Hypercalcemia Procedures CONSULT TO ENDOCRINOLOGY OFFICE/OUTPATIENT [facility] MDM 60-74 MINUTES Antony Espinoza MD [address] [place] [address] Referral ID Status Reason Start Date Expiration Date V isits Requested Visits Authorized [id number] Closed PCP Requested Referral 05/09/2022 05/09/2023 1 [...] symptoms present Procedures CONSULT TO UROLOGY OFFICE/OUTPATIENT [facility] 60-74 MINUTES Antony Espinoza MD [address] [place] [address] Referral ID Status Reason Start Date Expiration Date V isits Requested Visits Authorized [id number] Closed PCP Requested Referral 11/15/2022 11/15/2023 1 1 Reason Comments Established Patient Reason Onset Date Comments Refill Request 12/07/2022 Reason Comments Established Patient Follow Up Pain Diabetic Foot Care Reason Comments Consult Face Sheet Reason Comments Hyperparathyroidism Specialty Diagnoses / Procedures Referred By Contac t Referred To Contact Diagnoses Primary hyperparathyroidism (HCC) Procedures CONSULT TO ENDOCRINE SURGERY OFFICE/OUTPATIENT [facility] 60-74 MINUTES Shanthi Rangel MD [address] [place] [address] Referral ID Status Reason Start Date Expiration Date V isits Requested Visits Authorized [id number] Closed PCP Requested Referral 12/13/2022 12/13/2023 1 1 Reason Comments Radiology NM Specialty Diagnoses / Procedures [facility] MOLECULAR & FUNCTIONAL IMAGING Diagnoses Hypercalcemia Procedures NM PARATHYROID W SPECT/CT PARATHYROID IMAGING W/TOMOGRAPHIC SPECT & CT Shanthi Rangel MD [address] [place] [address] Molecular & Functional Imaging [address] [place] [address] Referral ID Status Reason Start Date Expiration Date V isits Requested Visits Authorized [id number] Closed Auto-Generate d Referral 12/20/2022 02/03/2023 1 [...] COMPLETE PST YOUSUF Gaona, Shaji Arguello MD [address] [place] [address] Pre Surg Testing [facility] [address] [place] [address] Referral ID Status Reason Start Date Expiration Date Visits Re quested Visits Authorized [id number] Closed 05/06/2023 11/17/2023 1 1 Reason Comments [...] Care Teams (unrecognized sec tion and content) Forging Dies Final Finisher Relationship Specialty Start Date End Date Antony Espinoza MD [address] [place], [place] [id number] PCP - General Family Practice 10/04/21 Forging Dies Final Finisher Relationship Specialty Start Date End Date Antony Espinoza MD [address] [place], [place] [id number] PCP - General Family Practice 10/04/21 Forging Dies Final Finisher Relationship Specialty Start Date End Date Antony Espinoza MD [address] [place] [address] PCP - General Family Practice 10/04/21 Forging Dies Final Finisher Relationship Specialty Start Date End Date Antony Espinoza MD [address] [facility] [address] PCP - General Family Practice 10/04/21 Forging Dies Final Finisher Relationship Specialty Start Date End Date Antony Espinoza MD [address] [facility] [place] [address] PCP - General Family Practice 10/04/21 Forging Dies Final Finisher Relationship Specialty Start Date End Date Antony Espinoza MD [address] [facility] [place] [address] PCP - General Family Practice 10/04/21 Forging Dies Final Finisher Relationship Specialty Start Date End Date Antony Espinoza MD [address] [facility] [address] PCP - General Family Practice 10/04/21 Forging Dies Final Finisher Relationship Specialty Start Date End Date Antony Espinoza MD [address] [facility] [place] [address] PCP - General Family Practice 10/04/21 Forging Dies Final Finisher Relationship Specialty Start Date End Date Antony Espinoza MD [address] [facility] [address] PCP - General Family Medicine 10/04/21 Forging Dies Final Finisher Relationship Specialty Start Date End Date Antony Espinoza MD [address] [facility] [place] [address] PCP - General Family Medicine 10/04/21 Forging Dies Final Finisher Relationship Specialty Start Date End Date Antony Espinoza MD [address] [facility] [place] [address] PCP - General Family Medicine 10/04/21 Forging Dies Final Finisher Relationship Specialty Start Date End Date Antony Espinoza MD [address] [facility] [place] [address] PCP - General Family Medicine 10/04/21 Forging Dies Final Finisher Relationship Specialty Start Date End Date Antony Espinoza MD [address] [facility] [place] [address] PCP - General Family Medicine 10/04/21 Forging Dies Final Finisher Relationship Specialty Start Date End Date Antony Espinoza MD [address] [facility] [place] [address] PCP - General Family Medicine 10/04/21 Forging Dies Final Finisher Relationship Specialty Start Date End Date Antony Espinoza MD [address] [facility] [place] [address] PCP - General Family Medicine 10/04/21 Forging Dies Final Finisher Relationship Specialty Start Date End Date Antony Espinoza MD [address] [facility] [place] [address] PCP - General Family Medicine 10/04/21 Forging Dies Final Finisher Relationship Specialty Start Date End Date Antony Espinoza MD [address] [facility] [place] [address] PCP - General Family Medicine 10/04/21 Forging Dies Final Finisher Relationship Specialty Start Date End Date Antony Espinoza MD [address] [facility] [place] [address] PCP - General Family Medicine 10/04/21 Forging Dies Final Finisher Relationship Specialty Start Date End Date Antony Espinoza MD [address] [facility] [place] [address] PCP - General Family Medicine 10/04/21 Forging Dies Final Finisher Relationship Specialty Start Date End Date Antony Espinoza MD [address] [facility] [place] [address] PCP - General Family Medicine 10/04/21 Forging Dies Final Finisher Relationship Specialty Start Date End Date Antony Espinoza MD [address] [facility], [place] [id number] PCP - General Family Medicine 10/04/21 Forging Dies Final Finisher Relationship Specialty Start Date End Date Antony Espinoza MD [address] [place], [place] [id number] PCP - General Family Medicine 10/04/21 Team [...] James Griffiths , DO Attending Provider Active Forging Dies Final Finisher Relationship Specialty Start Date End Date Antony Espinoza MD [address] [place], [place] [id number] PCP - General Family Medicine 10/04/21 Meka Wilkerson, STAFFING ACCOUNT MANAGER.WATER TREATMENT PLANT SUPERVISOR [address] [place] [address] Referring Internal Medicine 03/16/23 Forging Dies Final Finisher Relationship Specialty Start Date End Date Antony Espinoza MD [address] [place], [place] [id number] PCP - General Family Medicine 10/04/21 Meka Wilkerson, STAFFING ACCOUNT MANAGER.WATER TREATMENT PLANT SUPERVISOR [address] [place], [place] [phone] Referring Internal Medicine 03/16/23 Antony Espinoza MD [address] [place] [address] Home Care Provider Family Medicine 03/18/23 Harinder Isaac, TRACY [address] [place] [address] Financial Advisor Post Acute Care 03/18/23 Forging Dies Final Finisher Relationship Specialty Start Date End Date Antony Espinoza MD [address] [place] [address] PCP - General Family Medicine 10/04/21 Meka Wilkerson, STAFFING ACCOUNT MANAGER.WATER TREATMENT PLANT SUPERVISOR [address] [place] [address] Referring Internal Medicine 03/16/23 Antony Espinoza MD [address] [place] [address] Home Care Provider Family Medicine 03/18/23 Harinder Isaac RN [address] [place] [address] Financial Advisor Post Acute Care 03/18/23 Forging Dies Final Finisher Relationship Specialty Start Date End Date Antony Espinoza MD [address] [place] [address] PCP - General Family Medicine 10/04/21 Meka Wilkerson, STAFFING ACCOUNT MANAGER.WATER TREATMENT PLANT SUPERVISOR [address] [place] [address] Referring Internal Medicine 03/16/23 Antony Espinoza MD [address] [place] [address] Home Care Provider Family Medicine 03/18/23 Harinder Isaac RN [address] [place] [address] Financial Advisor Post Acute Care 03/18/23 Forging Dies Final Finisher Relationship Specialty Start Date End Date Antony Espinoza MD [address] [place] [address] PCP - General Family Medicine 10/04/21 Meka Wilkerson APRN.WATER TREATMENT PLANT SUPERVISOR [address] [place], [place] [phone] Referring Internal Medicine 03/16/23 Antony Espinoza MD [address] [place] [address] Home Care Provider Family Medicine 03/18/23 Harinder Isaac, RN [address] [place] [address] Financial Advisor Post Acute Care 03/18/23 Forging Dies Final Finisher Relationship Specialty Start Date End Date Antony Espinoza MD [address] [place] [address] PCP - General Family Medicine 10/04/21 Meka Wilkerson, STAFFING ACCOUNT MANAGER.WATER TREATMENT PLANT SUPERVISOR [address] [place] [address] Referring Internal Medicine 03/16/23 Antony Espinoza MD [address] [place] [address] Home Care Provider Family Medicine 03/18/23 Harinder Isaac, RN [address] [place] [address] Financial Advisor Post Acute Care 03/18/23 Forging Dies Final Finisher Relationship Specialty Start Date End Date Antony Espinoza MD [address] [place] [address] PCP - General Family Medicine 10/04/21 Meka Wilkerson, STAFFING ACCOUNT MANAGER.WATER TREATMENT PLANT SUPERVISOR [address] [place] [address] Referring Internal Medicine 03/16/23 Anotny Espinoza MD [address] [place] [address] Home Care Provider Family Medicine 03/18/23 Harinder Isaac RN [address] [place], [place] [id number] Financial Advisor Post Acute Care 03/18/23 Forging Dies Final Finisher Relationship Specialty Start Date End Date Antony Espinoza MD [address] [place] [address] PCP - General Family Medicine 10/04/21 Meka Wilkerson, STAFFING ACCOUNT MANAGER.WATER TREATMENT PLANT SUPERVISOR [address] [place] [address] Referring Internal Medicine 03/16/23 Antony Espinoza MD [address] [place] [address] Home Care Provider Family Medicine 03/18/23 Harinder Isaac RN [address] [place] [address] Financial Advisor Post Acute Care 03/18/23 Forging Dies Final Finisher Relationship Specialty Start Date End Date Antony Espinoza MD [address] [place] [address] PCP - General Family Medicine 10/04/21 Meka Wilkerson, STAFFING ACCOUNT MANAGER.WATER TREATMENT PLANT SUPERVISOR [address] [place] [address] Referring Internal Medicine 03/16/23 Antony Espinoza MD [address] [place] [address] Home Care Provider Family Medicine 03/18/23 Harinder Isaac RN [address] [place] [address] Financial Advisor Post Acute Care 03/18/23 Forging Dies Final Finisher Relationship Specialty Start Date End Date Antony Espinoza MD [address] [place] [address] PCP - General Family Medicine 10/04/21 Meka Wilkerson, STAFFING ACCOUNT MANAGER.WATER TREATMENT PLANT SUPERVISOR [address] [place] [address] Referring Internal Medicine 03/16/23 Antony Espinoza MD [address] [place] [address] Home Care Provider Family Medicine 03/18/23 Harinder Isaac, TRACY [address] [place] [address] Financial Advisor Post Acute Care 03/18/23 Forging Dies Final Finisher Relationship Specialty Start Date End Date Antony Espinoza MD [address] [place] [address] PCP - General Family Medicine 10/04/21 Meka Wilkerson, STAFFING ACCOUNT MANAGER.WATER TREATMENT PLANT SUPERVISOR [address] [place] [address] Referring Internal Medicine 03/16/23 Antony Espinoza MD [address] [place] [address] Home Care Provider Family Medicine 03/18/23 Harinder Isaac RN [address] [place] [address] Financial Advisor Post Acute Care 03/18/23 Forging Dies Final Finisher Relationship Specialty Start Date End Date Antony Espinoza MD [address] [place] [address] PCP - General Family Medicine 10/04/21 Meka Wilkerson, STAFFING ACCOUNT MANAGER.WATER TREATMENT PLANT SUPERVISOR [address] [place] [address] Referring Internal Medicine 03/16/23 Antony Espinoza MD [address] [place] [address] Home Care Provider Family Medicine 03/18/23 Harinder Isaac RN [address] [place] [address] Financial Advisor Post Acute Care 03/18/23 Forging Dies Final Finisher Relationship Specialty Start Date End Date Antony Espinoza MD [address] [place], [place] [address] PCP - General Family Medicine 10/04/21 Meka Wilkerson, STAFFING ACCOUNT MANAGER.WATER TREATMENT PLANT SUPERVISOR [address] [place], [place] [phone] Referring Internal Medicine 03/16/23 Antony Espinoza MD [address] [place] [address] Home Care Provider Family Medicine 03/18/23 Forging Dies Final Finisher Relationship Specialty Start Date End Date Antony Espinoza MD [address] [place] [address] PCP - General Family Medicine 10/04/21 Meka Wilkerson STAFFING ACCOUNT MANAGER.WATER TREATMENT PLANT SUPERVISOR [address] [place] [address] Referring Internal Medicine 03/16/23 Antony Espinoza MD [address] [place] [address] Home Care Provider Family Medicine 03/18/23 Harinder Isaac, TRACY [address] [place], [place] [id number] Financial Advisor Post Acute Care 03/18/23 Forging Dies Final Finisher Relationship Specialty Start Date End Date Antony Espinoza MD [address] [place] [address] PCP - General Family Medicine 10/04/21 Meak Wilkerson APRN.WATER TREATMENT PLANT SUPERVISOR [address] [place] [address] Referring Internal Medicine 03/16/23 Antony Espinoza MD [address] [place] [address] Home Care Provider Family Medicine 03/18/23 Harinder Isaac, TRACY [address] [place], [place] [id number] Financial Advisor Post Acute Care 03/18/23 Forging Dies Final Finisher Relationship Specialty Start Date End Date Antony Espinoza MD [address] [place] [address] PCP - General Family Medicine 10/04/21 Meka Wilkerson, STAFFING ACCOUNT MANAGER.WATER TREATMENT PLANT SUPERVISOR [address] [place], [place] [phone] Referring Internal Medicine 03/16/23 Antony Espinoza MD [address] [place] [address] Home Care Provider Family Medicine 03/18/23 Forging Dies Final Finisher Relationship Specialty Start Date End Date Antony Espinoza MD [address] [place] [address] PCP - General Family Medicine 10/04/21 Meka Wilkerson, STAFFING ACCOUNT MANAGER.WATER TREATMENT PLANT SUPERVISOR [address] [place] [address] Referring Internal Medicine 03/16/23 Antony Espinoza MD [address] [place] [address] Home Care Provider Family Medicine 03/18/23 Forging Dies Final Finisher Relationship Specialty Start Date End Date Antony Espinoza MD [address] [place] [address] PCP - General Family Medicine 10/04/21 Meka Wilkerson, STAFFING ACCOUNT MANAGER.WATER TREATMENT PLANT SUPERVISOR [address] [place] [address] Referring Internal Medicine 03/16/23 Antony Espinoza MD [address] [place] [address] Home Care Provider Family Medicine 03/18/23 Forging Dies Final Finisher Relationship Specialty Start Date End Date Antony Espinoza MD [address] [place] [address] PCP - General Family Medicine 10/04/21 Meka Wilkerson, STAFFING ACCOUNT MANAGER.WATER TREATMENT PLANT SUPERVISOR [address] [place] [address] Referring Internal Medicine 03/16/23 Antony Espinoza MD [address] [place] [address] Home Care Provider Family Medicine 03/18/23 Forging Dies Final Finisher Relationship Specialty Start Date End Date Antony Espinoza MD [address] [place] [address] PCP - General Family Medicine 10/04/21 Meka Wilkerson, STAFFING ACCOUNT MANAGER.WATER TREATMENT PLANT SUPERVISOR [address] [place] [address] Referring Internal Medicine 03/16/23 Antony Espinoza MD [address] [place] [address] Home Care Provider Family Medicine 03/18/23 Forging Dies Final Finisher Relationship Specialty Start Date End Date Antony Espinoza MD [address] [place] [address] PCP - General Family Medicine 10/04/21 Meka Wilkerson, STAFFING ACCOUNT MANAGER.WATER TREATMENT PLANT SUPERVISOR [address] [place], [place] [phone] Referring Internal Medicine 03/16/23 Antony Espinoza MD [address] [place] [address] Home Care Provider Family Medicine 03/18/23 Forging Dies Final Finisher Relationship Specialty Start Date End Date Antony Espinoza MD [address] [place] [address] PCP - General Family Medicine 10/04/21 Meka Wilkerson, STAFFING ACCOUNT MANAGER.WATER TREATMENT PLANT SUPERVISOR [address] [place] [address] Referring Internal Medicine 03/16/23 Antony Espinoza MD [address] [place] [address] Home Care Provider Family Medicine 03/18/23 Forging Dies Final Finisher Relationship Specialty Start Date End Date Antony Espinoza MD [address] [place] [address] PCP - General Family Medicine 10/04/21 Meka Wilkerson, STAFFING ACCOUNT MANAGER.WATER TREATMENT PLANT SUPERVISOR [address] [place] [address] Referring Internal Medicine 03/16/23 Antony Espinoza MD [address] [place] [address] Home Care Provider Family Medicine 03/18/23 Forging Dies Final Finisher Relationship Specialty Start Date End Date Antony Espinoza MD [address] [place] [address] PCP - General Family Medicine 10/04/21 Meka Wilkerson, STAFFING ACCOUNT MANAGER.WATER TREATMENT PLANT SUPERVISOR [address] [place] [address] Referring Internal Medicine 03/16/23 Antony Espinoza MD [address] [place] [address] Home Care Provider Family Medicine 03/18/23 Forging Dies Final Finisher Relationship Specialty Start Date End Date Antony Espinoza MD [address] [place] [address] PCP - General Family Medicine 10/04/21 Meka Wilkerson, STAFFING ACCOUNT MANAGER.WATER TREATMENT PLANT SUPERVISOR [address] [place], [place] [phone] Referring Internal Medicine 03/16/23 Antony Espinoza MD [address] [place], [place] 574151 Home Care Provider Family Medicine 03/18/23 Forging Dies Final Finisher Relationship Specialty Start Date End Date Antony Espinoza MD [address] [place], [place] 254231 PCP - General Family Medicine 10/04/21 Meka Wilkerson, STAFFING ACCOUNT MANAGER.WATER TREATMENT PLANT SUPERVISOR [address] [place], [place] [phone] Referring Internal Medicine 03/16/23 Antony Espinoza MD [address] [place], [place] [id number] Home Care Provider Family Medicine 03/18/23 Forging Dies Final Finisher Relationship Specialty Start Date End Date Antony Espinoza MD [address] [place], [place] 403581 PCP - General Family Medicine 10/04/21 Meka Wilkerson, STAFFING ACCOUNT MANAGER.WATER TREATMENT PLANT SUPERVISOR [address] [place], [place] [phone] Referring Internal Medicine 03/16/23 Antony Espinoza MD [address] [place], [place] 29038691 Home Care Provider Family Medicine 03/18/23 Forging Dies Final Finisher Relationship Specialty Start Date End Date Antony Espinoza MD [address] [place], [place] 435241 PCP - General Family Medicine 10/04/21 Meka Wilkerson, ESTHER.WATER TREATMENT PLANT SUPERVISOR [address] [place] [phone] Referring Internal Medicine 03/16/23 Antony Espinoza MD [address] [place], [place] 597451 Home Care Provider Family Medicine 03/18/23 Forging Dies Final Finisher Relationship Specialty Start Date End Date Antony Espinoza MD [address] [place], [place] [id number] PCP - General Family Medicine 10/04/21 Meka Wilkerson, STAFFING ACCOUNT MANAGER.WATER TREATMENT PLANT SUPERVISOR [address] [place] [id number] Referring Internal Medicine 03/16/23 Antony Espinoza MD [address] [place], [place] 820131 Home Care Provider Family Medicine 03/18/23 Forging Dies Final Finisher Relationship Specialty Start Date End Date Antony Espinoza MD [address] [place], [place] 435491 PCP - General Family Medicine 10/04/21 Meka Wilkerson, ESTHER.WATER TREATMENT PLANT SUPERVISOR [address] [place] [phone] Referring Internal Medicine 03/16/23 Antony Espinoza MD [address] [place] [address] Home Care Provider Family Medicine 03/18/23 Forging Dies Final Finisher Relationship Specialty Start Date End Date Antony Espinoza MD [address] [place] [address] PCP - General Family Medicine 10/04/21 Meka Samson APRN.WATER TREATMENT PLANT SUPERVISOR [address] [place] [address] Referring Internal Medicine 03/16/23 Antony Espinoza MD [address] [place] [address] Home Care Provider Family Medicine 03/18/23 Forging Dies Final Finisher Relationship Specialty Start Date End Date Antony Espinoza MD [address] [place] [address] PCP - General Family Medicine 10/04/21 Meka Samson APRN.WATER TREATMENT PLANT SUPERVISOR [address] [place] [address] Referring Internal Medicine 03/16/23 Antony Espinoza MD [address] [place] [address] Home Care Provider Family Medicine 03/18/23 Forging Dies Final Finisher Relationship Specialty Start Date End Date Antony Espinoza MD [address] [place], [place] 519391 PCP - General Family Medicine 10/04/21 Meka Samson APRN.WATER TREATMENT PLANT SUPERVISOR [address] [place], [place] [phone] Referring Internal Medicine 03/16/23 Antony Espinoza MD [address] [place], [place] 7[address]71 Home Care Provider Family Medicine 03/18/23 Forging Dies Final Finisher Relationship Specialty Start Date End Date Alex Sexton STAFFING ACCOUNT MANAGER.KIMI SAHU [address] [place], [place] [address] PCP - General Family Medicine 06/01/21 10/03/21 Forging Dies Final Finisher Relationship Specialty Start Date End Date Antony Espinoza MD [address] [place], [place] [address] PCP - General Family Medicine 10/04/21 Meka Samson, STAFFING ACCOUNT MANAGER.WATER TREATMENT PLANT SUPERVISOR [address] [place], [place] [id number] Referring Internal Medicine 03/16/23 Antony Espinoza MD [address] [place], [place] 8[address]31 Home Care Provider Family Medicine 03/18/23 Forging Dies Final Finisher Relationship Specialty Start Date End Date Antony Espinoza MD [address] [place], [place] 25[address]41 PCP - General Family Medicine 10/04/21 Meka Samsno, STAFFING ACCOUNT MANAGER.WATER TREATMENT PLANT SUPERVISOR [address] [place], [place] [phone] Referring Internal Medicine 03/16/23 Antony Espinoza MD [address] [place] [address] Home Care Provider Family Medicine 03/18/23 Forging Dies Final Finisher Relationship Specialty Start Date End Date Antony Espinoza MD [address] [facility], [place] [address] PCP - General Family Medicine 10/04/21 Meka Samson, STAFFING ACCOUNT MANAGER.WATER TREATMENT PLANT SUPERVISOR [address] [place], [place] [phone] Referring Internal Medicine 03/16/23 Antony Espinoza MD [address] [place] [address] Home Care Provider Family Medicine 03/18/23 Forging Dies Final Finisher Relationship Specialty Start Date End Date Antony Espinoza MD [address] [place] [address] PCP - General Family Medicine 10/04/21 Meka Samson STAFFING ACCOUNT MANAGER.WATER TREATMENT PLANT SUPERVISOR [address] [place] [address] Referring Internal Medicine 03/16/23 Antony Espinoza MD [address] [place] [address] Home Care Provider Family Medicine 03/18/23 Bisi Buenrostro APRN.WATER TREATMENT PLANT SUPERVISOR [address] [facility] [place] [address] Project Product Manager Family Medicine 10/26/24 Selena Velásquez STAFFING ACCOUNT MANAGER.WATER TREATMENT PLANT SUPERVISOR [address] [facility] [place] [address] Project Product Manager Family Medicine 10/26/24 Forging Dies Final Finisher Relationship Specialty Start Date End Date Antony Espinoza MD [address] [place] [address] PCP - General Family Medicine 10/04/21 Meka Samson APRN.WATER TREATMENT PLANT SUPERVISOR [address] [place], [place] [phone] Referring Internal Medicine 03/16/23 Antony Espinoza MD [address] [place], [place] 859841 Home Care Provider Family Medicine 03/18/23 Bisi Buenrostro APRN.WATER TREATMENT PLANT SUPERVISOR [address] [place] [address] Project Product Manager Family [facility] 10/26/24 Selena Velásquez APRN.WATER TREATMENT PLANT SUPERVISOR [address] [place] [address] Project Product Manager Family Medicine 10/26/24 Forging Dies Final Finisher Relationship Specialty Start Date End Date Antony Espinoza MD [address] [place], [place] [address]231 PCP - General Family Medicine 10/04/21 Meka Samson APRN.WATER TREATMENT PLANT SUPERVISOR [address] [place] [address] Referring Internal Medicine 03/16/23 Antony Espinoza MD [address] [place], [place] 149441 Home Care Provider Family Medicine 03/18/23 Bisi Buenrostro APRN.WATER TREATMENT PLANT SUPERVISOR [address] [place] [address] Project Product Manager Family Medicine 10/26/24 Selena Velásquez APRN.WATER TREATMENT PLANT SUPERVISOR [address] [place] [address] Project Product Manager Family Medicine 10/26/24 Forging Dies Final Finisher Relationship Specialty Start Date End Date Antony Espinoza MD [address] [place] [address] PCP - General Family Medicine 10/04/21 Meka Samson, STAFFING ACCOUNT MANAGER.WATER TREATMENT PLANT SUPERVISOR [address] [place], [place] [phone] Referring Internal Medicine 03/16/23 Antony Espinoza MD [address] [place] [address] Home Care Provider Family Medicine 03/18/23 Bisi Buenrostro STAFFING ACCOUNT MANAGER.WATER TREATMENT PLANT SUPERVISOR [address] [place] [address] Project Product Manager Family Medicine 10/26/24 Selena Velásquez APRN.WATER TREATMENT PLANT SUPERVISOR [address] [place] [address] Project Product Manager Family Medicine 10/26/24 Forging Dies Final Finisher Relationship Specialty Start Date End Date Antony Espinoza MD [address] [place] [address] PCP - General Family Medicine 10/04/21 Meka Samson, STAFFING ACCOUNT MANAGER.WATER TREATMENT PLANT SUPERVISOR [address] [place], [place] [phone] Referring Internal Medicine 03/16/23 Antony Espinoza MD [address] [place] [address] Home Care Provider Family Medicine 03/18/23 Bisi Buenrostro APRN.WATER TREATMENT PLANT SUPERVISOR [address] [place], [place] [id number] [facility] 10/[facility]/24 Selena Velásuqez APRN.WATER TREATMENT PLANT SUPERVISOR [address] [place], [place] [phone] [facility] 10/26/24 Forging Dies Final Finisher Relationship Specialty Start Date End Date Antony Espinoza MD [address] [place], [place] [id number] PCP - General Family Medicine 10/04/21 Meka Samson APRN.WATER TREATMENT PLANT SUPERVISOR [address] [place] [address] [phone] Referring Internal Medicine 03/16/23 Antony Espinoza MD [address] [place], [place] [id number] Home Care Provider Family Medicine 03/18/23 Bisi Buenrostro APRN.WATER TREATMENT PLANT SUPERVISOR [address] [place], [place] [id number] [facility] 10/26/24 Selena Velásquez STAFFING ACCOUNT MANAGER.WATER TREATMENT PLANT SUPERVISOR [address] [place], [place] [phone] [facility] 10/26/24 Goals (unrecognized section and content) [...] BE BASED ON THE PRIMARY CLINICAL RECORDS. [employer] provides no warranty or guarantee of the accuracy or completeness of information in this document.
[2025-04-23 22:25] LABS: International Normalized Ratio 1.1; Prothrombin Time (Protime)PT. 13.9 SECONDS (11.7-14.9)
[2025-04-23 22:40] LABS: Magnesium 2.3 mg/dL (1.5-2.2)
--- NOTE | 2025-04-23 22:45 | RAD_ITS ---
PROCEDURE: CHEST 1 VIEW 04/23/2025 REASON FOR EXAM: PRE-OP TECHNIQUE: Frontal view of the chest. COMPARISON: Chest radiograph on 03/05/2023, CT chest on 07/01/2021 FINDINGS: Unchanged elevation of the left hemidiaphragm, which obscures the cardiomediastinal silhouette. There is subtle patchy opacity in the right mid lung zone and linear opacity in the left mid lung zone. Aortic atherosclerosis. Cervical spine hardware partially imaged. Surgical clips in the upper abdomen. Degenerative changes of the spine and shoulders. RAD/Chest 1 View IMPRESSION: 1. Subtle patchy opacity in the right mid lung zone could represent chronic ch anges of the lungs, with infection also possible. Correlate with symptoms. 2. Linear opacity in the left mid lung zone likely represents atelectasis or s carring. Reading Location: [id number]
[2025-04-23] MEDS: Morphine 4 MG/ML Syringe IV (23:19)
--- NOTE | 2025-04-23 23:42 | ED.RN ---
notified Dr Pascual that pt is hypotensive and hypoxic after morphine. 3 L NC placed and 1 L NS bolus infusing.
[2025-04-23] MEDS: 0.9% Normal Saline (1000mL) 1,000 ML 999 ML IV (23:43)
--- NOTE | 2025-04-23 23:47 | ED.RN ---
pt denies feeling dizzy, resting in bed. pressure bag to saline.
[2025-04-24] VITALS (23 sets, daily range): BP systolic 82–145; BP diastolic 39–94; PULSE 43–80; RESP 12–18; TEMP 35.7–37.6; O2SAT 89–100; BMI 24.9
--- NOTE | 2025-04-24 00:28 | ECHOCS_ITS ---
Reason For Study Reason For Study: CHF Procedure This was a 2D Doppler, Color Flow transthoracic echocardiogram. The study was technically difficult. Contrast injection was performed. Exam performed portable in patient room. Left Ventricle Normal LV size. The estimated ejection fraction is 55 %. No evidence for diastolic dysfunction. No regional wall motion abnormalities noted. Right Ventricle Normal RV size. Normal systolic function. Atria The left and right atria are normal. No doppler evidence for ASD. Mitral Valve There is no mitral valve stenosis. No mitral valve insufficiency. Tricuspid Valve There is no tricuspid stenosis. No tricuspid valve insufficiency. Aortic Valve Trisinus/trileaflet aortic valve. There is no aortic stenosis. No aortic valve insufficiency. Pulmonic Valve There is no pulmonic valvular stenosis. No pulmonic valve insufficiency. Great Vessels Normal sized aortic root. Pericardium/Pleural No pericardial effusion. Medication Diluted definity 2ml given slow IV push to enhance endocardial definition. MMode/2D Measurements & Calculations LVIDd: 3.7 cm IVSd: 0.89 cm LAV(MOD-sp4): 39.5 ml LVIDs: 2.4 cm LVPWd: 1.1 cm FS: 34.5 % LVAd ap4: 34.4 cm2 SV(MOD-sp4): 69.0 ml SV(sp4-el): 61.8 ml LVLd ap4: 8.9 cm SI(MOD-sp4): 37.7 ml/m2 EDV(MOD-sp4): 124.1 ml EDV(sp4-el): 112.6 ml LVAs ap4: 21.7 cm2 LVLs ap4: 7.8 cm ESV(MOD-sp4): 55.1 ml ESV(sp4-el): 50.8 ml EF(MOD-sp4): 55.6 % EF(sp4-el): 54.9 % LA A4 area: 15.2 cm2 LA dimension(2D): 3.0 cm Time Measurements MV dec time: 0.23 sec Doppler Measurements & Calculations MV E max segun: 53.5 cm/sec Lat Peak E' Segun: 6.3 cm/sec Med Peak E' Segun: 4.3 cm/sec MV A max segun: 78.6 cm/sec E/E' lat: 8.4 E/E' med: 12.4 MV E/A: 0.68 MV V2 max: 86.1 cm/sec Ao V2 max: 94.7 cm/sec MV max P.0 mmHg MV dec slope: 233.2 cm/sec2 Ao max P.6 mmHg MV V2 mean: 42.0 cm/sec Ao V2 mean: 58.2 cm/sec MV mean P.86 mmHg Ao mean P.6 mmHg MV V2 VTI: 27.7 cm Ao V2 VTI: 22.4 cm AV (velocity ratio): 1.1 LV V1 max: 107.5 cm/sec LV V1 max P.6 mmHg LV V1 mean P.4 mmHg LV V1 mean: 72.0 cm/sec LV V1 VTI: 23.5 cm ECHO/Echo Complete W/ Contrast Interpretation Summary The estimated ejection fraction is 55 %. No evidence for diastolic dysfunction. Ordering Physician: Paty Morgan Referring Physician: BARON ESPINOZA Performed By: Anne Marie Cabello RCS
[2025-04-24 02:31] LABS: Pro- Brain NATRIURETIC PEPTIDE 1237 pg/mL (<=1800)
[2025-04-24] MEDS: oxyCODONE 5 MG Tablet PO (05:01)
[2025-04-24] MEDS: Acetaminophen 325 MG Tablet 650 MG PO (05:01)
[2025-04-24 05:36] LABS: Absolute Lymphocyte Count 1.76 X10^3/uL (0.83-4.51); Basophil# 0.02 X10^3/uL; Basophil% 0.1 % (0-1); Hematocrit 32.8 % (40-54); Hemoglobin 10.7 g/dL (13.0-16.5); Lymphocyte # 1.76 X10^3/ul (0.83-4.51); Lymphocyte % 12.7 % (19-41); Mean Corp Hgb Conc 32.6 g/dL (32-36); Mean Corpuscular Hgb 32.5 pg (27.0-32.0); Mean Corpuscular Volume 99.7 fL (80-94); Mean Platelet Vol. 10.8 fl (6.2-12.0); Monocyte# 1.01 X10^3/uL; Monocyte% 7.3 % (0-10); NRBC Flagged by Analyzer 0.1 % (0-5); Neutrophil # 11.01 X10^3/uL (2.7-7.7); Neutrophil % 79.5 % (47-70); Platelet Count 146 K/mm3 (150-450); RBC Distribution Width CV 15.5 % (11.6-14.6); RBC Distribution Width SD 57.1 fl (35.1-43.9); Red Blood Count 3.29 M/mm3 (4.6-6.2); White Blood Count 13.9 K/mm3 (4.4-11.0)
[2025-04-24 06:47] LABS: Hemoglobin A1c 5.8 % (<=5.6)
[2025-04-24 06:56] LABS: Bedside Glucose 108 mg/dL (74-106)
--- NOTE | 2025-04-24 07:47 | NURSING ---
shift production associate Nurse Janet RN informed this RN that Dr. Miranda called and spoke with Janet and said that we need Cardiology to clear Mr Pratt for surgery by 9[address] b[address] Miranda is planning on taking him to surgery at that time and wants him cleared. PT also has an Echo ordered also. This Nurse called and spoke with Boilermaker Apprentice learning consultant who is Dr. Klein and he stated that he would not be here until 1300 today and that the hospitalist would have to clear Mr. Pratt if Dr. Miranda wants to do the surgery by 929. Dr. Rao pagesterling. Nicole, electronic maintenance supervisor aware of situation.
--- NOTE | 2025-04-24 08:22 | PCM.PRE.AN2 ---
ASA Classification* ASA Classification ASA Classification: 3 and E Assessment & Plan Anesthesia* Anesthesia Assessment Anesthesia Assessment: Discussed sedation and/or anesthesia options, risks, benefits, and alternatives with patient/parents/legal guardian/POA. Questions invited. The patient/parents/legal guardian/POA seems to understand and agrees to proceed with anesthesia plan. Reviewed the physical assessment, medical history, allergy history and patient home medications list prior to surgery/procedure/anesthetic and documented any changes. Performed airway and anesthesia risk assessments. Anesthesia Type Anesthesia Type: General Anesthesia Focused Assessment* Temperature: 97.5 F Pulse Rate: 64 Blood Pressure: 103/55 Respiratory Rate: 16 Pulse Ox: 94 Oxygen Flow Rate (L/min): 2 Airway Assessment Mouth opens: >3 cm Mallampati Score: II Labs Anesthesia Preop lab: CBC WBC 13.9 K/mm3 (4.4-11.0) H 04/24/25 05:00 04/24/25 RBC 3.29 M/mm3 (4.6-6.2) L 04/24/25 05:00 04/24/25 Hgb 10.7 g/dL (13.0-16.5) L 04/24/25 05:00 04/24/25 Hct 32.8 % (40-54) L 04/24/25 05:00 04/24/25 Plt Count 146 K/mm3 (150-450) L 04/24/25 05:00 04/24/25 CHEMISTRY Potassium 5.3 mmol/L (3.3-5.1) H 04/23/25 20:25 04/23/25 Sodium 140 mmol/L (133-145) 04/23/25 20:25 04/23/25 Magnesium 2.3 mg/dL (1.5-2.2) H 04/23/25 20:25 04/23/25 Phosphorus 2.5 mg/dL (2.5-4.9) 03/06/23 00:40 03/06/23 BUN 38 mg/dL (4-19) H 04/23/25 20:25 04/23/25 Creatinine 1.81 mg/dL (0.70-1.20) H 04/23/25 20:25 04/23/25 Glucose 86 mg/dL (70-99) 04/23/25 20:25 04/23/25 POC Glucose 108 mg/dL (74-106) H 04/24/25 06:38 04/24/25 TSH 0.26 uIU/mL (0.358-3.74) L 03/06/23 06:05 03/06/23 COAG PT 13.9 SECONDS (11.7-14.9) 04/23/25 21:45 04/23/25 Pre-Assessment Diagnosis/Proposed Procedure Planned Operative Procedure(s): GAMMA NAIL LEFT HIP FX Anesthesia History Anesthesia History - pilot can router: Anesthesia History - pilot can router Hx Hospitalization Yes: currently hospitalized 08/19/18 19:25 Any Problems With Anesthesia unknown 04/24/25 02:34 Cholinesterase deficiency No 04/24/25 02:34 You/Your Family Experience unknown 04/24/25 02:34 fever (hyperthermia) with Relationship Recent Exposure to Contagious No 04/24/25 02:34 Disease Does patient have nerve No 04/24/25 02:34 stimulator Patient instructed to have No 04/24/25 02:34 device shut off --Does patient have Pacemaker or ICD? When Was Last Pacemaker Check QUESTION #4 FULL TEXT: You/Your Family Experience fever (hyperthermia) with Anesthesia Last Oral Intake Last Oral intake: Last Oral Intake NPO since Meds taken in AM with sips of water? Meds patient instructed to take am of surgery PONV PONV - pilot can router: PONV - pilot can router Female HX of Motion Sickness HX of N/V After Surgery Non-Smoker Duration of Surgery greater than 60 minutes Number of Risk Factors PONV Score Height & Weight Height & Weight: Anesthesia: Height & Weight Height 5 ft 6.93 in 04/24/25 01:32 Weight: 72.1 kg 04/24/25 05:45 Body Mass Index (BMI) 24.9 04/24/25 05:45 Respiratory Assessment Respiratory Assessment - pilot can router: Respiratory Tract Infection Hx - pilot can router Hx Respiratory Tract Infection No 04/24/25 02:34 STOP Sleep Apnea STOP Sleep Apnea - pilot can router: STOP Sleep Apnea - pilot can router Hx Hypertension Yes 04/24/25 02:27 Hx Sleep Apnea No 04/24/25 02:27 CPAP No 03/06/23 01:27 BIPAP No 03/06/23 01:27 Do you snore loudly (louder No 04/24/25 02:27 than talking or can be heard Do you often feel tired/ No 04/24/25 02:27 fatigued/ sleepy during daytime? Has anyone observed you stop No 04/24/25 02:27 breathing during sleep? STOP Results Negative 04/24/25 02:27 QUESTION #5 FULL TEXT : Do you snore loudly (louder than talking or can be heard through closed doors)? 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 Specify any problems Hx of Preganancy in last 3 Months Nurse Filling Out Transfusion & Questions: Date: Time: Patient unable to answer at Yes 04/24/25 02:27 this time (ie. confused, unrespo /Reproduction History /Reproductive History - pilot can router: /Reproductive Hx- pilot can router Hx Now Gestational Age (in weeks): EDC: Hx Hx Para Hx Section SAB Active Medications Active Medications: Current Medications Generic Name Dose Route Start Last Admin Trade Name Freq PRN Reason Stop Dose Admin Acetaminophen 650 mg 04/24/25 00:28 04/24/25 05:01 Acetaminophen 325 Mg Tablet PO 650 mg Q4H PRN PRN Administration Fever, pain 1-1010 Al Hydroxide/Mg Hydroxide 30 ml 04/24/25 00:28 Mag Hydrox/Al Hydrox/Simeth 30 Ml Udc PO Q6H PRN PRN Gastric Burning Albuterol Sulfate 2.5 mg 04/24/25 00:28 Albuterol 2.5 Mg/3 Ml Vial.Neb. INHALATION Q2H PRN PRN Dyspnea, wheezing Allopurinol 300 mg 04/24/25 08:00 [facility] Ator[facility]atin Calcium 10 mg 04/24/25 22:00 Atorvastatin Calcium 10 Mg Tablet PO QHS [facility] Donepezil HCl 10 mg 04/24/25 22:00 Done[facility]il Hcl [facility] Doxazosin Mesylate 1 mg 04/24/25 22:00 Doxazosin 1 Mg Tablet PO QHS [facility] Protocol Glucagon 1 mg 04/24/25 00:28 Glucagon 1 Mg/Ml Syringe IM X1 PRN HYPOGLYCEMIA Protocol Guaifenesin 20 ml 04/24/25 00:28 Guaifenesin 10 Ml Udc (200mg/10ml) PO Q4H PRN PRN COUGH Hydralazine HCl 10 mg 04/24/25 00:28 Hydralazine 20 Mg/Ml Vial IV Q4H PRN PRN SBP > 160 Protocol Dextrose 250 mls @ 0 mls/hr 04/24/25 00:28 Dextrose 10%-Water IV .Q0M PRN HYPOGLYCEMIA Protocol As Directed Sodium Chloride 250 mls @ 15 mls/hr 04/24/25 00:39 IV .[id number] PRN Saline Flush Sodium Chloride 250 mls @ 15 mls/hr 04/24/25 00:39 IV .[id number] PRN Additional IVPB Infusion Insulin Human Lispro 0 unit 04/24/25 07:00 04/24/25 06:43 Insulin Lispro 100 Unit/Ml Insuln.Pen SC Not Given ACHS [facility] Protocol Losartan Potassium 50 mg 04/24/25 10:00 Losartan Potassium 50 Mg Tablet PO DAILY [facility] Protocol Melatonin 3 mg 04/24/25 00:28 Melatonin 3 Mg Tablet PO QHS PRN PRN INSOMNIA Memantine 10 mg 04/24/25 10:00 Memantine Hydrochloride 10 Mg Tablet PO BID [facility] Morphine Sulfate 2 - 4 mg 04/24/25 00:28 Morphine 4 Mg/Ml Syringe IV Q2H PRN PRN PAIN 4-10 Morphine Sulfate 2 - 4 mg 04/24/25 00:37 Morphine 2 Mg/Ml Syringe IV Q2H PRN PRN PAIN 4-10 Ondansetron HCl 4 mg 04/24/25 00:28 Ondansetron 4 Mg/2 Ml Vial IV Q8H PRN PRN NAUSEA/VOMITING Oxycodone HCl 2.5 - 5 mg 04/24/25 00:28 04/24/25 05:01 Oxycodone 5 Mg Tablet PO 5 mg Q4H PRN PRN Administration PAIN 4-10 Paroxetine HCl 10 mg 04/24/25 10:00 Paroxetine 10 Mg Tablet PO DAILY [facility] Prochlorperazine Edisylate 5 mg 04/24/25 00:28 Prochlorperazine 10 Mg/2 Ml Vial IV Q4H PRN PRN Breakthrough nausea/vomiting Senna/Docusate Sodium 2 tablet 04/24/25 10:00 Senna/Docusate Sodium 1 Tablet PO BID [facility] Sodium Chloride 10 - 40 ml 04/24/25 00:39 0.9% Saline Lock 10 Ml Syringe IV UD PRN SALINE FLUSH PFSH Medical History Anxiety and depression COVID-19 Former smoker Degenerative disc disease, cervical Benign prostate hyperplasia Left bundle branch block Mild cognitive impairment with memory loss Alzheimer's disease Hypertension DM2 (diabetes mellitus, type 2) HTN (hypertension) Gout Heart failure with reduced ejection fraction Hairy cell leukemia Hyperlipidemia Home Medications ?Medication ?Instructions ?Recorded ?Last Taken ?Type atorvastatin 10 mg tablet 10 mg PO QHS CHOLESTEROL 11/20/15 04/23/25 History doxazosin 1 mg tablet 1 mg PO QHS prostate 11/20/15 04/23/25 History donepezil 5 mg tablet 10 mg PO QHS memory 11/28/17 04/23/25 History paroxetine HCl 10 mg tablet 10 mg PO DAILY anxiety 11/28/17 04/23/25 History allopurinol 300 mg tablet 300 mg PO DAILY GOUT 04/30/18 04/23/25 History (Zyloprim) memantine 5 mg tablet 10 mg PO BID memory 05/26/21 04/22/25 History ibuprofen 200 mg capsule 200 mg PO Q4H PRN Pain 03/05/23 04/22/25 History cholecalciferol (vitamin D3) 25 25 mcg PO DAILY ordered 05/14/23 04/23/25 History mcg (1,000 unit) tablet losartan 50 mg tablet 50 mg PO DAILY BP 04/23/25 04/23/25 History Allergy/AdvReac Type Severity Reaction Status Date / Time gabapentin Allergy tremors Verified 04/23/25 20:24 metoprolol (From Toprol XL) Allergy PT UNSURE Verified 04/23/25 20:24 OF REACTION ramipril (From Altace) Allergy PT UNSURE Verified 04/23/25 20:24 OF REACTION Family History Mother Cancer Father Heart disease Hypertension Surgical History History of parathyroid surgery Hx of splenectomy History of appendectomy H/O total hip arthroplasty Social History household members: spouse Smoking Status: Former smoker alcohol intake: never substance use type: does not use Review of Systems (Anesthesia) ROS Narrative System reviewed and no additional complaints, except as documented.
[2025-04-24 08:46] LABS: ALB/GLOB Ratio 1.7 RATIO (0.9-2.4); AST(SGOT) 32 U/L (<=37); Alanine Aminotransfer ALT/SGPT 20 U/L (<=46); Albumin, Serum 3.3 g/dL (3.4-4.8); Alkaline Phosphatase 98 U/L (40-129); Anion Gap 9 (5-15); BUN 42 mg/dL (4-19); BUN/Creat Ratio 19.5 RATIO (10-20); Carbon Dioxide 19.8 mmol/L (21.0-32.0); Chloride 111 mmol/L (98-108); Creatinine, Serum 2.15 mg/dL (0.70-1.20); EST Glomerular Filtration Rate 30 (>60); Estimated Creatinine Clearance 23.49 ml/min (50-250); Glucose 119 mg/dL (70-99); Potassium 5.5 mmol/L (3.3-5.1); Protein, Total 5.3 g/dL (5.9-8.4); Sodium Level 140 mmol/L (133-145); Total Bilirubin 0.53 mg/dL (0.00-1.30)
--- NOTE | 2025-04-24 09:20 | PN.HOSP_ITS ---
Reason for Visit Reason for Visit: Diagnoses Fracture of unspecified part of neck of left femur, initial encounter for closed fracture (04/23/25) Unspecified fall, initial encounter (04/23/25) Subjective Subjective Patient was seen and examined today, is in the room and I obtained some medical information from her due to the patient's dementia. Patient was admitted last night with a intertrochanteric fracture of the left hip, the plan is to do an intramedullary nail for repair. I talked with orthopedic surgery as well as anesthesia. Patient appears in no distress, he is on minimal oxygen at 2 L, echocardiogram is being performed at the time my examination. Patient's states that he has a history of leukemia but is under no treatment for it-she states it is in remission. Patient has no history of coronary disease, there is a history of cardiomyopathy not attributed to coronary disease-patient's states the last echocardiogram showed an EF of approximately 30%. Patient has a history of hypertension takes losartan and hyperlipidemia and he takes Lipitor. Patient has a history of peripheral neuropathy but according to the patient's med list, he does not take any medicine for this. Patient is on Paxil for chronic depression, otherwise I feel he is on minimal medications. Patient has no history of lung disease and does not wear supplemental oxygen at home. Patient underwent repair of his right hip years ago due to a fall with a fracture. At the time my examination, patient is alert in no distress, he does try to talk but what he says does not make any sense. Objective Data Objective Data Vital Signs: Vital Signs Temp Pulse Resp BP Pulse Ox O2 Del Method O2 Flow Rate 97.5 F L 64 16 103/55 L 94 Nasal Cannula 2 04/24/25 08:23 04/24/25 08:23 04/24/25 08:23 04/24/25 08:23 04/24/25 08:23 04/24/25 08:05 04/24/25 08:23 Oxygen Flow Rate (L/min) 2 Oxygen Delivery Method Nasal Cannula Weight: 72.1 kg Body Mass Index (BMI) 24.9 Intake & Output: Intake and Output for Last 24 Hours 04/22/25 04/23/25 04/24/25 23:59 23:59 23:59 Intake Total 0 / 0 1000 / 1000 Output Total 125 / 125 Balance 0 / 0 875 / 875 Lab / Micro Data 04/24/25 05:00 04/24/25 05:00 Labs: Laboratory Results - last 24 hr 04/23/25 20:25: WBC 7.8, RBC 4.02 L, Hgb 13.1, Hct 39.5 L, MCV 98.3 H, MCH 32.6 H, MCHC 33.2, RDW Std Deviation 53.9 H, RDW Coeff of Eduarda 15.1 H, Plt Count 187, MPV 11.6, Immature Gran % (Auto) 0.500, Neut % (Auto) 52.0, Lymph % (Auto) 37.3, Doddridge % (Auto) 7.9, Eos % (Auto) 1.9, Baso % (Auto) 0.4, Absolute Neuts (auto) 4.1, Absolute Lymphs (auto) 2.91, Nucleated RBC % 0.3, Sodium 140, Potassium 5.3 H, Chloride 107, Carbon Dioxide 23.5, Anion Gap 10, BUN 38 H, Creatinine 1.81 H, Estim Creat Clear Calc 28.91 L, Est GFR (MDRD) Non-Af 37 L, BUN/Creatinine Ratio 21.2 H, Glucose 86, Calcium 8.9, Magnesium 2.3 H, NT pro BNP II 1237 04/23/25 21:45: PT 13.9, INR 1.1 04/23/25 21:46: Blood Type O POSITIVE, Antibody Screen NEGATIVE 04/24/25 05:00: WBC 13.9 H, RBC 3.29 L, Hgb 10.7 L, Hct 32.8 L, MCV 99.7 H, MCH 32.5 H, MCHC 32.6, RDW Std Deviation 57.1 H, RDW Coeff of Eduarda 15.5 H, Plt Count 146 L, MPV 10.8, Immature Gran % (Auto) 0.400, Neut % (Auto) 79.5 H, Lymph % (Auto) 12.7 L, Doddridge % (Auto) 7.3, Eos % (Auto) 0.0, Baso % (Auto) 0.1, Absolute Neuts (auto) 11.0 H, Absolute Lymphs (auto) 1.76, Nucleated RBC % 0.1, Sodium 140, Potassium 5.5 H, Chloride 111 H, Carbon Dioxide 19.8 L, Anion Gap 9, BUN 42 H, Creatinine 2.15 H, Estim Creat Clear Calc 23.49 L, Est GFR (MDRD) Non-Af 30 L , BUN/Creatinine Ratio 19.5, Glucose 119 H, Hemoglobin A1c 5.8 H, Calcium 8.0, Total Bilirubin 0.53, AST 32, ALT 20, Alkaline Phosphatase 98, Total Protein 5.3 L, Albumin 3.3 L, Globulin 2.0 L, Albumin/Globulin Ratio 1.7 04/24/25 06:38: POC Glucose 108 H Radiography Diagnostic Testing: Radiology Impression Hip/Pelvis X-Ray 04/23/25 21:05 IMPRESSION: Acute comminuted intertrochanteric fracture of the left femur with mild shortening and varus angulation. No additional fractures or dislocation. [facility] 04/23/25 22:45 IMPRESSION: 1. Subtle patchy opacity in the right mid lung zone could represent chronic changes of the lungs, with infection also possible. Correlate with symptoms. 2. Linear opacity in the left mid lung zone likely represents atelectasis or scarring. Reading Location: [id number] Physical Exam Const alert, no apparent distress, average body habitus and healthy appearing General Appearance: cooperative, well kempt and well developed Orientation / Consciousness: awake and oriented to person HEENT normocephalic, head/scalp atraumatic and moist oral mucous membranes Head and Scalp: normocephalic Eyes PERRL, EOMs intact bilaterally and conjunctivae normal Neck supple, no JVD, thyroid normal and no carotid bruits General: trachea midline Resp normal respiratory effort, no retractions, no use of accessory muscles and clear to auscultation bilaterally Auscultation: Negative for rales, rhonchi or wheezes Cardio regular rate, regular rhythm, S1 normal heart sound, S2 normal heart sound, no murmurs, no rub and no gallops GI normal to inspection, nondistended, normoactive bowel sounds, soft to palpation, non-tender and non-distended Extremity no clubbing, cyanosis or edema Skin no rashes or lesions noted General Skin Exam: no breakdown Neuro CN's II-XII intact bilaterally, no focal motor deficits and no sensory deficits noted Neuro Narrative: Patient is alert, he is confused, he does not appear agitated Sensorium / Orientation: awake, alert and oriented to person Speech: speech normal Psych Psych Narrative: Patient exhibits cognitive impairment, he is alert and does not carry on a conversation but says a few words which do not make sense. Assessment & Plan Assessment/Plan (1) Closed fracture of left hip: PLAN: Plan 1. Intertrochanteric fracture of the left hip secondary to osteoporosis-I talked extensively with orthopedic surgery this morning, I also talked with anesthesia and cardiology. I feel the patient is stable for surgery at this time is moderate risk due to his age, he has no history of coronary disease or lung disease and he is not diabetic. #2 essential hypertension-patient is on losartan, his blood pressure is running low today and I have instructed nursing to start some fluids on the patient. Anesthesia is aware of this. 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 Patient's white blood cell count is slightly high #4 hyperkalemia-patient's potassium this morning was 5.5, I do not feel this is significant, I do not feel it needs to be treated. #5 chronic kidney disease stage IV-patient's creatinine this morning was 2.15, I feel he is a little bit dry and will need some fluids. #6 [id number] care, management, recovery, and prognosis #7 slightly low platelet count, I do not feel this will affect the patient for surgery #8 acute anemia-patient's hemoglobin is slightly lower than it was at the time of admission, I attribute this to his left hip fracture. #9 cardiomyopathy by history-patient's echocardiogram today appeared to show an ejection fraction of 50 to 55% and no significant valvular heart disease, this will be read out this afternoon when cardiology is here for rounds. I discussed this case with cardiology and I do not feel they need to see the patient, they were okay with this and I have canceled the consult. Total clinical time spent by myself addressing the patient's medical issues, reviewing all of his data, and collaborating with the patient's care team: 55 minutes Charges/Coding Visit Charges Inpatient E&M: 40370 Subs Hosp L3
--- NOTE | 2025-04-24 09:30 | RAD_ITS ---
PROCEDURE: HIP MIN 6 VIEWS (PORTABLE) 04/24/2025. Portable C-arm furnished for left hip fracture REASON FOR EXAM: NAILING TECHNIQUE: Fluoroscopic spot images were obtained with the portable C-arm COMPARISON: Left hip radiographs from 04/23/2020 FINDINGS: 6 fluoroscopic spot images are obtained with images demonstrating placement of long intramedullary left femoral nail and dynamic compression screws in the left hip. Fluoroscopy time: 93.2 seconds. Radiation dose: 18.46 mGy RAD/Hip Min 2 Views (Portable) IMPRESSION: Fluoroscopy provided for open reduction internal fixation left hip fracture. F or full details, see the operative report Reading Location: [facility]
--- NOTE | 2025-04-24 09:34 | CONS.ORTHO ---
HPI Consult Data Date of Consult: 04/24/25 HPI Narrative Reason for Consultation: Left hip pain HPI Narrative: JEN MULLINS, is a 85 M who presents today with left hip pain. Patient has significant dementia and is largely nonverbal. His is at bedside and gives the majority of his history. She notes they were leaving the house yesterday in order to go out to eat and patient had a mechanical fall. Patient was using a cane at that time. He has previously been instructed to use a walker more consistently. He walks with a kyphotic posture and gait. Patient does use a walker inside the home on a consistent basis and is supposed to use it outside the home. Patient's is unable to get him up and he was brought to the emergency department by ambulance. He was found to have a left intertrochanteric hip fracture admitted to the hospital overnight. There was some questions about his ejection fraction and echocardiogram was performed this morning showing is 55%. Patient's history is limited secondary to inability to give significant information due to his dementia. [facility] Medical History Anxiety and depression COVID-19 Former smoker Degenerative disc disease, cervical Benign prostate hyperplasia Left bundle branch block Mild cognitive impairment with memory loss Alzheimer's disease Hypertension DM2 (diabetes mellitus, type 2) HTN (hypertension) Gout Heart failure with reduced ejection fraction Hairy cell leukemia Hyperlipidemia Home Medications ?Medication ?Instructions ?Recorded ?Last Taken ?Type atorvastatin 10 mg tablet 10 mg PO QHS CHOLESTEROL 11/20/15 04/23/25 History doxazosin 1 mg tablet 1 mg PO QHS prostate 11/20/15 04/23/25 History donepezil 5 mg tablet 10 mg PO QHS memory 11/28/17 04/23/25 History paroxetine HCl 10 mg tablet 10 mg PO DAILY anxiety 11/28/17 04/23/25 History allopurinol 300 mg tablet 300 mg PO DAILY GOUT 04/30/18 04/23/25 History (Zyloprim) memantine 5 mg tablet 10 mg PO BID memory 05/26/21 04/22/25 History ibuprofen 200 mg capsule 200 mg PO Q4H PRN Pain 03/05/23 04/22/25 History cholecalciferol (vitamin D3) 25 25 mcg PO DAILY ordered 05/14/23 04/23/25 History mcg (1,000 unit) tablet losartan 50 mg tablet 50 mg PO DAILY BP 04/23/25 04/23/25 History Allergy/AdvReac Type Severity Reaction Status Date / Time gabapentin Allergy tremors Verified 04/23/25 20:24 metoprolol (From Toprol XL) Allergy PT UNSURE Verified 04/23/25 20:24 OF REACTION ramipril (From Altace) Allergy PT UNSURE Verified 04/23/25 20:24 OF REACTION Family History Mother Cancer Father Heart disease Hypertension Surgical History History of parathyroid surgery Hx of splenectomy History of appendectomy H/O total hip arthroplasty Social History household members: spouse Smoking Status: Former smoker alcohol intake: never substance use type: does not use ROS ROS Narrative Significant dementia. 14 point review of systems also was mentioned in the HPI is negative or noncontributory today. Vital Signs Vital Signs Vital Signs: 04/23/25 20:24 04/23/25 20:32 04/23/25 22:21 Temperature 97.9 F Temperature Source Oral Pulse Rate 58 L Respiratory Rate 16 Respiratory Effort Normal Non-Labored Respiratory Depth Respiratory Pattern Blood Pressure 159/94 H 94/72 Blood Pressure Mean 115 79 Blood Pressure Source Blood Pressure Position Blood Pressure Location Pulse Ox 95 92 Oxygen Delivery Method Room Air Room Air Oxygen Flow Rate (L/min) 04/23/25 22:33 04/23/25 23:39 04/23/25 23:39 Temperature 97.9 F Temperature Source Pulse Rate 58 L 54 L Respiratory Rate 16 14 Respiratory Effort Respiratory Depth Respiratory Pattern Blood Pressure 102/61 75/41 L Blood Pressure Mean 74 52 Blood Pressure Source Blood Pressure Position Blood Pressure Location Pulse Ox 91 86 97 Oxygen Delivery Method Room Air Nasal Cannula Oxygen Flow Rate (L/min) 3 04/23/25 23:46 04/23/25 23:48 04/23/25 23:50 Temperature Temperature Source Pulse Rate 54 L 53 L 51 L Respiratory Rate 16 14 Respiratory Effort Respiratory Depth Respiratory Pattern Blood Pressure 80/43 L 92/35 L 97/38 L Blood Pressure Mean 55 54 57 Blood Pressure Source Blood Pressure Position Blood Pressure Location Pulse Ox 96 96 Oxygen Delivery Method Nasal Cannula Nasal Cannula Oxygen Flow Rate (L/min) 2 2 04/23/25 23:59 04/24/25 00:10 04/24/25 01:00 Temperature 97 F L Temperature Source Oral Pulse Rate 50 L 54 L 56 L Respiratory Rate 16 16 Respiratory Effort Respiratory Depth Respiratory Pattern Blood Pressure 104/35 L 113/42 L 125/64 H Blood Pressure Mean 58 65 84 Blood Pressure Source Monitor Blood Pressure Position Semi-Fowlers Blood Pressure Location Left Arm Pulse Ox 97 99 Oxygen Delivery Method Nasal Cannula Nasal Cannula Oxygen Flow Rate (L/min) 2 2 04/24/25 01:21 04/24/25 05:00 04/24/25 05:07 Temperature 97.5 F L Temperature Source Temporal Pulse Rate 64 Respiratory Rate 16 Respiratory Effort Normal Non-Labored Respiratory Depth Normal Respiratory Pattern Normal Blood Pressure 103/55 L Blood Pressure Mean 71 Blood Pressure Source Monitor Blood Pressure Position Semi-Fowlers Blood Pressure Location Left Arm Pulse Ox 89 95 Oxygen Delivery Method Nasal Cannula Room Air Nasal Cannula Oxygen Flow Rate (L/min) 2 2 04/24/25 08:05 04/24/25 08:23 04/24/25 09:12 Temperature 97.5 F L 97.6 F L Temperature Source Temporal Pulse Rate 64 53 L Respiratory Rate 16 16 Respiratory Effort Respiratory Depth Respiratory Pattern Blood Pressure 103/55 L 99/51 L Blood Pressure Mean 67 Blood Pressure Source Monitor Blood Pressure Position Semi-Fowlers Blood Pressure Location Right Arm Pulse Ox 94 94 98 Oxygen Delivery Method Nasal Cannula Room Air Oxygen Flow Rate (L/min) 2 2 Weight Weight: 158 lb 15.253 oz Body Mass Index (BMI) 24.9 Physical Exam Const alert Constitutional Narrative: Nonverbal due to dementia HEENT normocephalic Eyes PERRL Neck no JVD Resp normal respiratory effort Cardio Cardio Narrative: Regular pulse GI non-distended Extremity Extremity Narrative: Left lower extremity: Skin clean, dry, and intact. Limb is shortened and externally rotated Motor is intact dorsiflexion, EHL and plantar flexion. Sensation is intact to light touch saphenous, hortencia,l superficial peroneal, deep peroneal and tibial distributions. Calves are soft and supple. Skin no wounds Neuro moves all extremities Speech: speech abnormal Details: Positive for other (Nonverbal due to dementia) Psych Memory / Cognition: cognition impaired Medical Records Data Attestation: I reviewed the patient's medical records Lab / Micro Data Attestation: I reviewed the patient's lab results. 04/24/25 05:00 04/24/25 05:00 Labs: Laboratory Results - last 24 hr 04/23/25 20:25: WBC 7.8, RBC 4.02 L, Hgb 13.1, Hct 39.5 L, MCV 98.3 H, MCH 32.6 H, MCHC 33.2, RDW Std Deviation 53.9 H, RDW Coeff of Eduarda 15.1 H, Plt Count 187, MPV 11.6, Immature Gran % (Auto) 0.500, Neut % (Auto) 52.0, Lymph % (Auto) 37.3, [place] % (Auto) 7.9, Eos % (Auto) 1.9, Baso % (Auto) 0.4, Absolute Neuts (auto) 4.1, Absolute Lymphs (auto) 2.91, Nucleated RBC % 0.3, Sodium 140, Potassium 5.3 H, Chloride 107, Carbon Dioxide 23.5, Anion Gap 10, BUN 38 H, Creatinine 1.81 H, Estim Creat Clear Calc 28.91 L, Est GFR (MDRD) Non-Af 37 L, BUN/Creatinine Ratio 21.2 H, Glucose 86, Calcium 8.9, Magnesium 2.3 H, NT pro BNP II 1237 04/23/25 21:45: PT 13.9, INR 1.1 04/23/25 21:46: Blood Type O POSITIVE, Antibody Screen NEGATIVE 04/24/25 05:00: WBC 13.9 H, RBC 3.29 L, Hgb 10.7 L, Hct 32.8 L, MCV 99.7 H, MCH 32.5 H, MCHC 32.6, RDW Std Deviation 57.1 H, RDW Coeff of Eduarda 15.5 H, Plt Count 146 L, MPV 10.8, Immature Gran % (Auto) 0.400, Neut % (Auto) 79.5 H, Lymph % (Auto) 12.7 L, [place] % (Auto) 7.3, Eos % (Auto) 0.0, Baso % (Auto) 0.1, Absolute Neuts (auto) 11.0 H, Absolute Lymphs (auto) 1.76, Nucleated RBC % 0.1, Sodium 140, Potassium 5.5 H, Chloride 111 H, Carbon Dioxide 19.8 L, Anion Gap 9, BUN 42 H, Creatinine 2.15 H, Estim Creat Clear Calc 23.49 L, Est GFR (MDRD) Non-Af 30 L, BUN/Creatinine Ratio 19.5, Glucose 119 H, Hemoglobin A1c 5.8 H, Calcium 8.0, Total Bilirubin 0.53, AST 32, ALT 20, Alkaline Phosphatase 98, Total Protein 5.3 L, Albumin 3.3 L, Globulin 2.0 L, Albumin/Globulin Ratio 1.7 04/24/25 06:38: POC Glucose 108 H Imaging Radiology Impression Hip/Pelvis X-Ray 04/23/25 21:05 IMPRESSION: Acute comminuted intertrochanteric fracture of the left femur with mild shortening and varus angulation. No additional fractures or dislocation. Reading Location: [facility] Independent review shows left displaced intertrochanteric hip fracture. Chest X-Ray 04/23/25 22:45 IMPRESSION: 1. Subtle patchy opacity in the right mid lung zone could represent chronic changes of the lungs, with infection also possible. Correlate with symptoms. 2. Linear opacity in the left mid lung zone likely represents atelectasis or scarring. Reading Location: [id number] Assessment & Plan Assessment/Plan (1) Intertrochanteric fracture of left femur: PLAN: Patient is nonverbal. Due to his dementia minimal communication. Primary communication was done with his who is his power of separator operator. Natural history of the disease process and treatment options were discussed with the patient's family. Did recommend cephalomedullary nail of the left hip. Nonoperative treatment was also discussed but not recommended. Risk and benefits of the procedure were discussed with patient including but not limited to blood loss, DVTs, PEs, nervous damage, infection, general risk of anesthesia including loss of life. We also discussed nonunion, malunion, hardware failure and screw cut out. Patient's /power of separator operator demonstrates understanding of these risks and wishes to move forward. Will order antibiotics on-call to the operating room. Patient is NPO. Patient has been cleared by medicine for surgery.
--- NOTE | 2025-04-24 09:37 | NURSING ---
No order for consent, therefore not signed. Report given and pt being transferred via bed at this time to surgery.
--- NOTE | 2025-04-24 10:12 | CASEMGMT ---
Social Work Pt is off the floor for surgery so assessment not completed at this time. SW did create in [facility] a list of detention facilities in network w/pt's insurance, in pt's preferred geographic area and complete w/quality and resource use data. SW will follow up w/pt postoperatively today should pt return to the floor in a timely manner. BRANDIE Dumont
[2025-04-24] MEDS: Cefazolin 2 GM in 0.9% Normal Saline (100mL Bag) 100 ML IV (10:35)
--- NOTE | 2025-04-24 10:55 | OP.PCM_ITS ---
Operative Report (Standard) Operative Information Date of Procedure: 04/24/25 Pre-Operative Diagnosis: Left intertrochanteric hip fracture Post-Operative Diagnosis: Left intertrochanteric hip fracture Surgery/Procedure Performed: Left hip cephalomedullary nail evp strategy: Yes Mold Shaker: Elsa Blunt Tasks completed by administrative assistant coordinator: Opening & closing, Implanting device, Retracting and Other (Fracture reduction and maintenance) Additional kindergarten teacher assistant?: No Type of Anesthesia: Spinal RN Documented Start/Stop Times: Operation Date: 04/24/25 11:00 Case Time Anesthesia Start 04/24/25 10:09 Into Room 04/24/25 10:09 Procedure Start 04/24/25 10:31 Procedure End 04/24/25 11:12 Anesthesia End 04/24/25 11:18 Out of Room 04/24/25 11:18 Procedure Start Time: 10:31 Procedure Stop Time: 11:12 Select all DRAINS/GRAFTS/IMPLANTS that apply: Prosthetic device Prosthetic device details: [employer] InterTAN nail long 11.5 mm x 38 cm 125 degree neck angle. 105 mm lag screw. 42.5 mm interlocking screw Special Medications: Ancef Estimated Blood Loss: 250 mL Fluids Replaced: 1200 mL crystalloid Specimen collected: No Description of surgery: Brief history operative indications: 85-year-old male with significant dementia fell sustaining a left intertrochanteric hip fracture. After extensive discussion with regards to natural history and procedure were discussed with the power of assistant attorney general including risk and benefits which include but are not limited to blood loss, PEs, DVTs, neurovascular damage, nonunions, malunions and screw cut out patient has elected to proceed with a left hip cephalo-medullary nail. Procedure: On the date of the procedure the patient's L hip was marked in the preoperative area and patient was taken back to the operating room. Anesthetic was administered and patient was transferred to the table were all bony prominence identified well-padded and the ipsilateral arm was placed across the chest. Patient was then translated down to the perineal post and the operative leg was placed in the boot while the nonoperative leg was lowered and secured. The operative leg was placed in traction and internal rotation and live fluoroscopy was used to verify adequate reduction. The operative leg was then prepped in a sterile fashion with chlorhexidine while the surgeon scrubbed. Upon reentering the room the operative extremity was draped in the standard orthopedic fashion. Skin incision was marked and a timeout was called. Everyone agreed upon the side, the site, the procedure be performed, patient's identity, and antibiotics given. Skin incision was made and the position of the entry guidepin was verified using live fluoroscopy. Once we were satisfied with our position the pin was advanced in the soft tissue protector was placed over the pin. The entry reamer was then advanced into the proximal portion of the femur. A guidewire was placed down the intramedullary canal and fluoroscopy was used to verify that the anterior cortex had not been breached distally as well as satisfactory distal positioning. We then used live fluoroscopy to verify the length of the nail and a [employer] InterTAN 38 cm by 11.5 mm 125 degree neck angle hip nail was selected. The 13 mm reamer was then passed. The nail was then attached to the inside sales and inserted into the intramedullary canal. The appropriate depth was verified and the skin incision for the lag screw was made. The lag screw guidepin was then placed under live fluoroscopy and when a satisfactory position was obtained the length of the screw was measured and the standard technique to drill for the lag screws was performed. The anti-rotation bar was used. At this time a 105 MM lag screw was selected with its corresponding compression screw. The lag screw was then passed and traction was left off the leg. The compression screw was then passed and the fracture was compressed. The final position of the lag screw was verified under fluoroscopy. Attention was then turned to the distal portion of the nail and a perfect huslia technique was used to locate the distal interlocking screw and a 42.5 mm distal interlocking screw was placed using this technique. Live fluoroscopy was used to verify the position of the interlocking screw and the final position of the hip components. Once we were satisfied with our positioning the wounds were copiously irrigated out with normal saline skin was closed with 2-0 Vicryl and gilda for final skin closure. A sterile dressing was placed with Xeroform. Patient was then awakened by anesthesia transferred from the fracture table back to their hospital bed and transferred to the PACU for recovery. Postoperative plan: Patient will be weight-bear as tolerated. Xarelto 10 mg daily for 2 weeks followed by aspirin 81 mg p.o. twice daily for total of 4 weeks for DVT prophylaxis with thigh-high stockings. Follow up in the office in 2 weeks. Surgical Findings: Stable will reduce fracture. Patient did have a trance trochanteric fracture pattern. The setscrew was left in a locked position creating a fixed angle device. Complications Complications: No Admit VTE Documentation VTE Present on Admission: No VTE Mechan Device Prophylaxis: SCD's and Thigh High ALIZA Hose VTE Pharm Prophylaxis ordered?: Yes
--- NOTE | 2025-04-24 11:30 | PCM.POST.ANE ---
Anesthesia: Postop Eval I Current Vital Signs Temperature: 96.3 F Pulse Rate: 50 Blood Pressure: 125/94 Respiratory Rate: 16 Pulse Ox: 94 Assessment Airway patent: Yes Spontaneous unlabored respirations: Yes Mental status: Awake nausea: No Vomiting: No Anesthesia Complication: No Fluid Hydration Crystalloid volume administer (ml): 1,200 Total IV fluid infused: 1,200 Progress Note Anesthesia document: Postop Eval 1 completed: Yes
[2025-04-24] MEDS: 0.9% Normal Saline (1000mL) 1,000 ML 120 ML IV ×2 (12:01→17:54)
--- NOTE | 2025-04-24 12:04 | SUR.PHASEI ---
MAP IS LOW AND PATIENT HAS BEEN IN [place] ALONG WITH FLUIDS WIDE OPEN. BP AT 1200 WAS 102/56 (70), AND THEN WHEN WE TOOK HIM OUT OF [place] HE DROPPED AGAIN TO 92/42 (57). CONTINUING TO MONITOR.
--- NOTE | 2025-04-24 12:54 | NURSING ---
back from surgery
[2025-04-24 13:51] LABS: Bedside Glucose 131 mg/dL (74-106)
--- NOTE | 2025-04-24 15:47 | CASEMGMT ---
Social Work Pt has returned from surgery, SW met w/pt's and friend in room, pt sleeping, reviewed prior level of function and anticipated discharge plan. PCP: Dr. Antony Botello Specialists: Dr. Miranda, orthopedic surgeon, [employer] Technician with [facility], Dt. Maxine--podiatry, Dr. Gaona--Urology Pharmacy: Just changed to [facility] from [facility] Insurance/Prescription plan: M[employer] Medicare LW/POA: Pt has completed, both on file, is POA LNOK: , son, daughter. Daughter in [place], coming home in two weeks Living Arrangements/Prior level of function: Pt lives home w/ in a one story home, 3 steps in. There is a basement but pt does not go to basement any longer. does the cooking, cleaning, driving, med set up. Pt is able to get up to the bathroom, shower, and dress, does do some prompting w/dressing. DME/SNF/HHC: Walker(uses inside of home), Cane(uses outside of home), shower chair, comfort height commode. Pt is not on Home O2. Pt has had [facility] many times. Pt has been to [facility] and [facility] Skilled Plan: SNF. SW did provide the SNF list to . She would like a referral to TCU. SW asked her to review the list for other choices. SW explained will make referral to TCU, and have SW follow up Saturday for additional choices if needed. states understanding. Referral made to TCU via email. SW will continue to follow. BRANDIE Dumont
[2025-04-24] MEDS: Acetaminophen 500 MG Tablet 1000 MG PO ×2 (16:10→22:31)
[2025-04-24 17:24] LABS: Bedside Glucose 135 mg/dL (74-106)
[2025-04-24] MEDS: Cefazolin 1 GM/50 ML BAG IV (18:00)
[2025-04-24] MEDS: Morphine 4 MG/ML Syringe IV (18:06)
[2025-04-24] MEDS: 0.9% Saline Lock 10 ML Syringe IV (18:06)
[2025-04-24] MEDS: 0.9% Normal Saline (1000mL) 1,000 ML 500 ML IV (19:22)
[2025-04-24] MEDS: Atorvastatin Calcium 10 MG Tablet PO (22:31)
[2025-04-24] MEDS: Memantine Hydrochloride 10 MG Tablet PO (22:31)
[2025-04-24] MEDS: Doxazosin 1 MG Tablet PO (22:31)
[2025-04-24] MEDS: Senna/Docusate Sodium 1 Tablet 2 TABLET PO (22:31)
[2025-04-24] MEDS: Donepezil HCl 10 MG Tablet PO (22:31)
[2025-04-24] MEDS: MELATONIN 3 MG TABLET PO (22:31)
[2025-04-24 23:04] LABS: Bedside Glucose 110 mg/dL (74-106)
[2025-04-25] VITALS (8 sets, daily range): BP systolic 102–156; BP diastolic 50–85; PULSE 64–96; RESP 16–20; TEMP 36.6–37.6; O2SAT 81–99; BMI 25.3
[2025-04-25] MEDS: 0.9% Normal Saline (1000mL) 1,000 ML 120 ML IV ×3 (03:57→20:55)
[2025-04-25] MEDS: Cefazolin 1 GM/50 ML BAG IV (03:57)
[2025-04-25] MEDS: Acetaminophen 500 MG Tablet 1000 MG PO ×3 (05:22→23:00)
[2025-04-25 05:53] LABS: Absolute Lymphocyte Count 2.05 X10^3/uL (0.83-4.51); Absolute Neutrophil Count 6.3 X10^3/uL (2.0-7.7); Basophil# 0.01 X10^3/uL; Basophil% 0.1 % (0-1); Eosinophil# 0.02 X10^3/uL; Eosinophils% 0.2 % (0-5); Hematocrit 24.5 % (40-54); Hemoglobin 7.9 g/dL (13.0-16.5); Lymphocyte # 2.05 X10^3/ul (0.83-4.51); Mean Corp Hgb Conc 32.2 g/dL (32-36); Mean Corpuscular Hgb 32.5 pg (27.0-32.0); Mean Corpuscular Volume 100.8 fL (80-94); Mean Platelet Vol. 12.1 fl (6.2-12.0); Monocyte% 9.6 % (0-10); NRBC Flagged by Analyzer 0.2 % (0-5); Neutrophil # 6.32 X10^3/uL (2.7-7.7); Neutrophil % 67.8 % (47-70); Platelet Count 104 K/mm3 (150-450); RBC Distribution Width CV 15.9 % (11.6-14.6); RBC Distribution Width SD 59.1 fl (35.1-43.9); Red Blood Count 2.43 M/mm3 (4.6-6.2); White Blood Count 9.3 K/mm3 (4.4-11.0)
[2025-04-25 06:05] LABS: Anion Gap 9 (5-15); BUN 49 mg/dL (4-19); BUN/Creat Ratio 20.3 RATIO (10-20); Calcium,Total 7.1 mg/dL (7.6-11.0); Chloride 116 mmol/L (98-108); EST Glomerular Filtration Rate 26 (>60); Estimated Creatinine Clearance 21.05 ml/min (50-250); Glucose 106 mg/dL (70-99); Potassium 5.6 mmol/L (3.3-5.1); Sodium Level 140 mmol/L (133-145)
[2025-04-25 06:50] LABS: Bedside Glucose 110 mg/dL (74-106)
--- NOTE | 2025-04-25 08:45 | PN.ORTHO_ITS ---
Subjective Subjective Patient doing well orthopedically. No acute events overnight. Mildly confused this morning. Reports continued pain. Nurse at bedside did note difficulty sitting at edge of bed due to kyphotic posture last evening. Objective Data Objective Data Vital Signs: Vital Signs Temp Pulse Resp BP Pulse Ox O2 Del Method O2 Flow Rate 97.9 F 64 16 102/76 95 Nasal Cannula 2 04/25/25 05:04 04/25/25 05:04 04/25/25 05:04 04/25/25 05:04 04/25/25 05:04 04/25/25 08:01 04/25/25 08:01 Oxygen Flow Rate (L/min) 2 Oxygen Delivery Method Nasal Cannula Weight: 161 lb 9.581 oz Body Mass Index (BMI) 25.3 Intake & Output: Intake and Output for Last 24 Hours 04/23/25 04/24/25 04/25/25 23:59 23:59 23:59 Intake Total 0 / 0 4142 / 4142 890 / 890 Output Total 675 / 675 100 / 100 Balance 0 / 0 3467 / 3467 790 / 790 Lab / Micro Data 04/25/25 05:03 04/25/25 05:03 Labs: Laboratory Results - last 24 hr 04/24/25 05:00: Sodium 140, Potassium 5.5 H, Chloride 111 H, Carbon Dioxide 19.8 L, Anion Gap 9, BUN 42 H, Creatinine 2.15 H, Estim Creat Clear Calc 23.49 L, Est GFR (MDRD) Non-Af 30 L, BUN/Creatinine Ratio 19.5, Glucose 119 H, Calcium 8.0, Total Bilirubin 0.53, AST 32, ALT 20, Alkaline Phosphatase 98, Total Protein 5.3 L, Albumin 3.3 L, Globulin 2.0 L, Albumin/Globulin Ratio 1.7 04/24/25 13:04: POC Glucose 131 H 04/24/25 17:05: POC Glucose 135 H 04/24/25 22:41: POC Glucose 110 H 04/25/25 05:03: WBC 9.3, RBC 2.43 L, Hgb 7.9 L, Hct 24.5 L, MCV 100.8 H, MCH 32.5 H, MCHC 32.2, RDW Std Deviation 59.1 H, RDW Coeff of Eduarda 15.9 H, Plt Count 104 L, MPV 12.1 H, Immature Gran % (Auto) 0.300, Neut % (Auto) 67.8, Lymph % (Auto) 22.0, [place] % (Auto) 9.6, Eos % (Auto) 0.2, Baso % (Auto) 0.1, Absolute Neuts (auto) 6.3, Absolute Lymphs (auto) 2.05, Nucleated RBC % 0.2, Sodium 140, Potassium 5.6 H, Chloride 116 H, Carbon Dioxide 16.0 L, Anion Gap 9, BUN 49 H, C reatinine 2.40 H, Estim Creat Clear Calc 21.05 L, Est GFR (MDRD) Non-Af 26 L, B UN/Creatinine Ratio 20.3 H, Glucose 106 H, Calcium 7.1 L 04/25/25 06:19: POC Glucose 110 H Decrease in hemoglobin noted. Radiography Diagnostic Testing: Radiology Impression Echocardiogram 04/24/25 00:28 Interpretation Summary The estimated ejection fraction is 55 %. No evidence for diastolic dysfunction. Ordering Physician: Paty Morgan Referring Physician: BARON ESPINOZA Performed By: Anne Marie Cabello RCS Hip X-Ray 04/24/25 09:30 IMPRESSION: Fluoroscopy provided for open reduction internal fixation left hip fracture. For full details, see the operative report Reading Location: [facility] Physical Exam Const alert Constitutional Narrative: Confused due to chronically altered mental status compounded by recent injury and surgery Left lower extremity: Dressing is clean dry and intact Sensations intact to light touch saphenous, sural, superficial peroneal, deep peroneal, and tibial distributions Motors intact EHL, DF, PF calves are soft and supple palpable DP pulse Assessment & Plan Assessment/Plan (1) Intertrochanteric fracture of left femur: PLAN: Postop day 1 left intertrochanteric hip fracture cephalomedullary nail fixation 1. DVT prophylaxis: Patient on Eliquis due to renal failure and concerns for limited mobility. However patient significant fall risk. Would consider baby aspirin twice a day if felt to be too great of a fall risk and bleeding risk. 2. Pain control: Per primary service. Would be careful with narcotics due to patient's mental status 3. Therapy: Weightbearing as tolerated, activity as tolerated within constraints from his mental status 4. Anemia: Acute on chronic due to recent fracture and surgery likely compounded by chronic dehydration. Would recommend beginning iron and folic acid supplements 5. Disposition: Patient is orthopedically stable at this time. Discharge will be dependent on medical stability and mobility. Based on patient's preinjury condition would anticipate need for shelter upon discharge. Plan will be for return to office in 2 weeks. If patient is institutionalized at that time would recommend x-rays at the institution and suture/staple removal on postop day 14 of wound is appropriate. Remove dressing on postoperative day 5 leave open to air if at home. Change dressing every other day and keep covered if in skilled facility until gilda are removed. At this time recommend Eliquis 2.5 mg twice a day for 2 weeks followed by aspirin twice a day for 2 weeks for DVT prophylaxis. If patient has major bleeding risk due to falls recommend 4 weeks total of baby aspirin twice a day. Will defer to medicine service for further risk assessment falls and intracranial bleeding. Please call orthopedics with any further questions or concerns. [facility] Office:
--- NOTE | 2025-04-25 08:48 | NURSING ---
This RN assisted pt with using his I.S and pep. pt was able to use pep successfully and I.S he was able to go up to 1000 6 times before pt then would not follow commands anymore. pt had taken o2 off when this RN walked into room and spo2 was 81% on Ra.
[2025-04-25] MEDS: Senna/Docusate Sodium 1 Tablet 2 TABLET PO (08:50)
[2025-04-25] MEDS: Allopurinol 300 MG Tablet PO (08:50)
[2025-04-25] MEDS: Losartan Potassium 50 MG Tablet PO (08:51)
[2025-04-25] MEDS: PARoxetine 10 MG Tablet PO (08:51)
[2025-04-25] MEDS: Memantine Hydrochloride 10 MG Tablet PO ×2 (08:52→23:00)
[2025-04-25] MEDS: APIXABAN 2.5 MG TABLET (WCH) PO ×2 (08:52→23:01)
[2025-04-25] MEDS: oxyCODONE 5 MG Tablet PO ×2 (09:02→13:02)
[2025-04-25] MEDS: Ensure Surgery 237 ML LIQUID PO ×2 (09:03→12:40)
[2025-04-25 12:59] LABS: Absolute Lymphocyte Count 1.54 X10^3/uL (0.83-4.51); Absolute Neutrophil Count 9.1 X10^3/uL (2.0-7.7); Basophil# 0.02 X10^3/uL; Basophil% 0.2 % (0-1); Eosinophil# 0.06 X10^3/uL; Eosinophils% 0.5 % (0-5); Hematocrit 25.2 % (40-54); Lymphocyte # 1.54 X10^3/ul (0.83-4.51); Lymphocyte % 13.3 % (19-41); Mean Corp Hgb Conc 31.7 g/dL (32-36); Mean Corpuscular Hgb 32.4 pg (27.0-32.0); Mean Platelet Vol. 11.9 fl (6.2-12.0); Monocyte# 0.84 X10^3/uL; Monocyte% 7.3 % (0-10); NRBC Flagged by Analyzer 0.3 % (0-5); Neutrophil # 9.06 X10^3/uL (2.7-7.7); Neutrophil % 78.4 % (47-70); Platelet Count 117 K/mm3 (150-450); RBC Distribution Width CV 15.9 % (11.6-14.6); RBC Distribution Width SD 58.4 fl (35.1-43.9); Red Blood Count 2.47 M/mm3 (4.6-6.2); White Blood Count 11.6 K/mm3 (4.4-11.0)
[2025-04-25 13:34] LABS: Bedside Glucose 112 mg/dL (74-106)
--- NOTE | 2025-04-25 13:49 | PCM.PN.HOSP ---
Reason for Visit Reason for Visit: Diagnoses Fracture of unspecified part of neck of left femur, initial encounter for closed fracture (04/23/25) Displaced intertrochanteric fracture of left femur, initial encounter for closed fracture (04/23/25) Unspecified fall, initial encounter (04/23/25) Subjective Subjective Patient was seen and examined today, his hemoglobin was low this morning at 7.9, hemoglobin was repeated this afternoon and it was 8. Patient remains confused and talks very little, nursing felt that the patient needed an evaluation by speech therapy. Objective Data Objective Data Vital Signs: Vital Signs Temp Pulse Resp BP Pulse Ox O2 Del Method O2 Flow Rate 98.2 F 67 19 H 122/50 H 96 Nasal Cannula 2 04/25/25 08:33 04/25/25 08:33 04/25/25 08:33 04/25/25 08:33 04/25/25 08:33 04/25/25 08:33 04/25/25 08:33 Oxygen Flow Rate (L/min) 2 Oxygen Delivery Method Nasal Cannula Weight: 73.3 kg Body Mass Index (BMI) 25.3 Intake & Output: Intake and Output for Last 24 Hours 04/23/25 04/24/25 04/25/25 23:59 23:59 23:59 Intake Total 0 / 0 4142 / 4142 2190 / 2190 Output Total 675 / 675 250 / 250 Balance 0 / 0 3467 / 3467 1940 / 1940 Lab / Micro Data 04/25/25 12:46 04/25/25 05:03 Labs: Laboratory Results - last 24 hr 04/24/25 13:04: POC Glucose 131 H 04/24/25 17:05: POC Glucose 135 H 04/24/25 22:41: POC Glucose 110 H 04/25/25 05:03: WBC 9.3, RBC 2.43 L, Hgb 7.9 L, Hct 24.5 L, MCV 100.8 H, MCH 32.5 H, MCHC 32.2, RDW Std Deviation 59.1 H, RDW Coeff of Eduarda 15.9 H, Plt Count 104 L, MPV 12.1 H, Immature Gran % (Auto) 0.300, Neut % (Auto) 67.8, Lymph % (Auto) 22.0, [place] % (Auto) 9.6, Eos % (Auto) 0.2, Baso % (Auto) 0.1, Absolute Neuts (auto) 6.3, Absolute Lymphs (auto) 2.05, Nucleated RBC % 0.2, Sodium 140, Potassium 5.6 H, Chloride 116 H, Carbon Dioxide 16.0 L, Anion Gap 9, BUN 49 H, Creatinine 2.40 H, Estim Creat Clear Calc 21.05 L, Est GFR (MDRD) Non-Af 26 L, BUN/Creatinine Ratio 20.3 H, Glucose 106 H, Calcium 7.1 L 04/25/25 06:19: POC Glucose 110 H 04/25/25 12:42: POC Glucose 112 H 04/25/25 12:46: WBC 11.6 H, RBC 2.47 L, Hgb 8.0 L, Hct 25.2 L, MCV 102.0 H, MCH 32.4 H, MCHC 31.7 L, RDW Std Deviation 58.4 H, RDW Coeff of Eduarda 15.9 H, Plt Count 117 L, MPV 11.9, Immature Gran % (Auto) 0.300, Neut % (Auto) 78.4 H, Lymph % (Auto) 13.3 L, [place] % (Auto) 7.3, Eos % (Auto) 0.5, Baso % (Auto) 0.2, Absolute Neuts (auto) 9.1 H, Absolute Lymphs (auto) 1.54, Nucleated RBC % 0.3 Radiography Diagnostic Testing: Radiology Impression Echocardiogram 04/24/25 00:28 Interpretation Summary The estimated ejection fraction is 55 %. No evidence for diastolic dysfunction. Ordering Physician: Paty Morgan Referring Physician: BARON ESPINOZA Performed By: Anne Marie Cabello RCS Physical Exam Narrative alert, no apparent distress, average body habitus and healthy appearing General Appearance: cooperative, well kempt and well developed Orientation / Consciousness: awake and oriented to person HEENT normocephalic, head/scalp atraumatic and moist oral mucous membranes Head and Scalp: normocephalic Eyes PERRL, EOMs intact bilaterally and conjunctivae normal Neck supple, no JVD, thyroid normal and no carotid bruits General: trachea midline Resp normal respiratory effort, no retractions, no use of accessory muscles and clear to auscultation bilaterally Auscultation: Negative for rales, rhonchi or wheezes Cardio regular rate, regular rhythm, S1 normal heart sound, S2 normal heart sound, no murmurs, no rub and no gallops GI normal to inspection, nondistended, normoactive bowel sounds, soft to palpation, non-tender and non-distended Extremity no clubbing, cyanosis or edema Skin no rashes or lesions noted General Skin Exam: no breakdown Neuro CN's II-XII intact bilaterally, no focal motor deficits and no sensory deficits noted Neuro Narrative: Patient is alert, he is confused, he does not appear agitated Sensorium / Orientation: awake, alert and oriented to person Speech: speech normal Psych Psych Narrative: Patient exhibits cognitive impairment, he is alert and does not carry on a conversation but says a few words which do not make sense. Assessment & Plan Assessment/Plan (1) Intertrochanteric fracture of left femur: (2) Closed fracture of left hip: PLAN: Plan 1. Intertrochanteric fracture of the left hip secondary to osteoporosis-postop day #1 insertion of left hip cephalomedullary nail-continue PT and OT, patient will need inpatient rehab placement #2 essential hypertension-patient is on losartan, his blood pressure is running low today and I have instructed nursing to start some fluids on the patient. Anesthesia is aware of this. 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 Patient's white blood cell count is slightly high #4 hyperkalemia-patient's potassium this morning was 5.6, this may be secondary to the patient's use of losartan, I will repeat the patient's BMP tomorrow, if potassium is more elevated it may be necessary to discontinue his losartan #5 chronic kidney disease stage IV-patient's creatinine this morning was 2.40, continue IV fluids at this time #6 ifenpqzs-mguxzxna-[id number] care, management, recovery, and prognosis #7 slightly low platelet count, I do not feel this will affect the patient for surgery #8 acute anemia-patient's hemoglobin is slightly lower than it was at the time of admission, I attribute this to his left hip fracture. CBC will be repeated tomorrow #9 cardiomyopathy by history-patient's echocardiogram showed an ejection fraction of 55% Total clinical time spent by myself addressing the patient's medical issues, reviewing all of his data, and collaborating with the patient's care team: 35 minutes Charges/Coding Visit Charges Inpatient E&M: 13785 Subs Hosp L2
--- NOTE | 2025-04-25 15:47 | NURSING ---
This RN performed mouth care on pt. Also repositioned pt onto Rt side will pillow inbetween legs and under back. Pt did not tolerate being on his side. states he never lays on his side at home while he is sleeping. New ice pack applied to LT hip. Bed exit alarm on.
[2025-04-25 19:15] LABS: Bedside Glucose 102 mg/dL (74-106)
[2025-04-25] MEDS: Doxazosin 1 MG Tablet PO (23:00)
[2025-04-25] MEDS: Atorvastatin Calcium 10 MG Tablet PO (23:01)
[2025-04-25] MEDS: Donepezil HCl 10 MG Tablet PO (23:01)
[2025-04-26] VITALS (20 sets, daily range): BP systolic 125–194; BP diastolic 51–105; PULSE 50–958; RESP 14–30; TEMP 35.7–37.2; O2SAT 88–99; BMI 25.4
[2025-04-26 02:35] LABS: Bedside Glucose 130 mg/dL (74-106)
[2025-04-26] MEDS: Acetaminophen 500 MG Tablet 1000 MG PO (04:42)
[2025-04-26 06:08] LABS: Absolute Lymphocyte Count 1.73 X10^3/uL (0.83-4.51); Absolute Neutrophil Count 7.3 X10^3/uL (2.0-7.7); Basophil# 0.01 X10^3/uL; Basophil% 0.1 % (0-1); Eosinophil# 0.06 X10^3/uL; Eosinophils% 0.6 % (0-5); Hematocrit 21.8 % (40-54); Hemoglobin 7.1 g/dL (13.0-16.5); Lymphocyte # 1.73 X10^3/ul (0.83-4.51); Lymphocyte % 17.2 % (19-41); Mean Corp Hgb Conc 32.6 g/dL (32-36); Mean Corpuscular Hgb 32.4 pg (27.0-32.0); Mean Corpuscular Volume 99.5 fL (80-94); Mean Platelet Vol. 11.4 fl (6.2-12.0); Monocyte# 0.93 X10^3/uL; Monocyte% 9.2 % (0-10); NRBC Flagged by Analyzer 0.4 % (0-5); Neutrophil # 7.28 X10^3/uL (2.7-7.7); Neutrophil % 72.4 % (47-70); Platelet Count 104 K/mm3 (150-450); RBC Distribution Width SD 58.6 fl (35.1-43.9); Red Blood Count 2.19 M/mm3 (4.6-6.2); White Blood Count 10.1 K/mm3 (4.4-11.0)
[2025-04-26] MEDS: oxyCODONE 5 MG Tablet PO (06:38)
[2025-04-26 06:54] LABS: Bedside Glucose 79 mg/dL (74-106)
--- NOTE | 2025-04-26 07:50 | NURSING ---
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
--- NOTE | 2025-04-26 08:00 | PCM.POSTANE2 ---
Anesthesia Postop Eval I Sum Postop Eval Completion status Anesthesia document: Postop Eval 1 completed: Yes Anesthesia Postop Eval I Summary Anesthesia Postop Eval I Summary: Anesthesia Postop Eval I: Assessment Summary Airway patent Yes 04/26/25 08:00 Spontaneous unlabored Yes 04/26/25 08:00 respirations Mental status Awake 04/26/25 08:00 nausea No 04/26/25 08:00 Vomiting No 04/26/25 08:00 Anesthesia Postop Eval I: Fluid Summary Crystalloid volume administer 1,200 04/26/25 08:00 (ml) Colloids volume administered ( ml) Blood Product volume administered (ml) Total IV fluid infused 1,200 04/26/25 08:00 Anesthesia Postop Eval I: Summary Notes Anesthesia Complication No 04/26/25 08:00 Anesthesia Complication Comment: Post-operative progress note Anesthesia: Postop Eval II Evaluation Mental status: Awake Pain Level: 1 nausea: No Vomiting: No Complications Anesthesia Complication: No
--- NOTE | 2025-04-26 08:34 | NURSING ---
primary RN Erica to the desk requesting stroke alert be called. states therapy with patient as is . in to see patient, therapy with patient reports right sided weakness and garbled speech. stoke alert called. Dr. Griffiths on unit responded. per primary RN pt was sleeping with even respirations earlier. last known documented well time of 05:53. OT checked 97. 157/65, HR 84. noted.
--- NOTE | 2025-04-26 08:47 | CT_ITS ---
PROCEDURE: STROKE CTA HEAD AND NECK W/CON 04/26/2025 REASON FOR EXAM: STROKE TECHNIQUE: CTA imaging of the head and neck from the aortic arch to the skull vertex with out contrast and with intravenous contrast. Multiplanar and multisequence images were obtained. CONTRAST: Isovue-300 VOLUME: 100 mL One or more dose reduction techniques were used (e.g., Automated exposure control, adjustment of the mA and/or kV according to patient size, use of iterative reconstruction technique). RADIATION DOSE SUMMARY: CTDlvol: 40.1 mGy DLP: 699.88 mGycm COMPARISON: None FINDINGS: Aortic Arch: Normal size and branching pattern. Mild atherosclerotic plaque. Brachiocephalic and Subclavians: Mild atherosclerotic plaque without significant stenosis. RIGHT Carotid: Right CCA: Unremarkable. Right ICA: Unremarkable. Right ECA: Unremarkable. LEFT Carotid: Left CCA: Unremarkable. Left ICA: Unremarkable. Left ECA: Unremarkable. Vertebrals: Codominant. Arise from the subclavians. Both vertebrals form the basilar. RIGHT Vertebral: Unremarkable. LEFT Vertebral: Unremarkable. Anatomy: Elim Ira of Simmons anatomy is normal. Aneurysm or avm: No intracranial aneurysms or large vascular malformations are identified. Anterior cerebral arteries: Unremarkable: Middle cerebral arteries: Unremarkable. Basilar artery: Unremarkable. Posterior cerebral arteries: Unremarkable. Other major branches of the posterior circulation: Unremarkable. Major venous structures: Unremarkable. Other findings: Atherosclerotic calcific plaques of the cavernous portions of the internal carotid arteries. Prior fusion of the cervical spine. CT/STROKE CTA Head AND Neck W/Con IMPRESSION: No significant stenosis seen. Red Alert: No sig stenosis The critical information above was relayed directly by me by telephone to Vern Prather on 04/26/2025 at 9:12 am with readback verification. Reading Location: [place] [id number]
--- NOTE | 2025-04-26 08:48 | CT_ITS ---
PROCEDURE: STROKE BRAIN/HEAD WITHOUT CONT 04/26/2025 REASON FOR EXAM: STROKE TECHNIQUE: Head CT without intravenous contrast. Coronal and Sagittal reconstruction series were provided. One or more dose reduction techniques were used (e.g., Automated exposure control, adjustment of the mA and/or kV according to patient size, use of iterative reconstruction technique. RADIATION DOSE SUMMARY: CTDlvol: 44.99 mGy DLP: 812.98 mGycm COMPARISON: CT brain 2020 FINDINGS: Brain: Infarct left [employer] territory measuring 8 cm AP 3 cm transverse. Finding is new compared to the previous study May 26, 2021. 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 This stable there is periventricular and deep white matter hypodensity indicating chronic small-vessel ischemic disease. CSF Spaces: Dorian cisterna magna. Dilated ventricles and prominent sulci from age-related involution Sinuses/Mastoids: Unremarkable as seen. Motion artifact. Bones: Skull intact. 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 New left [employer] territory infarct Call report to Reading Location: [place] [address]
[2025-04-26 08:54] LABS: Bedside Glucose 97 mg/dL (74-106)
--- NOTE | 2025-04-26 09:39 | NURSING ---
report called to icu
--- NOTE | 2025-04-26 10:06 | NURSING ---
Unable to accurately get NIH when stroke team first arrived due to patient confusion and inability to follow commands. Able to get more accurate NIH after CT. See NIH at 0905
[2025-04-26 11:40] LABS: Bedside Glucose 83 mg/dL (74-106)
[2025-04-26 16:09] LABS: Bedside Glucose 82 mg/dL (74-106)
--- NOTE | 2025-04-26 18:44 | PCM.PN.HOSP ---
Reason for Visit Reason for Visit: Diagnoses Fracture of unspecified part of neck of left femur, initial encounter for closed fracture (04/23/25) Displaced intertrochanteric fracture of left femur, initial encounter for closed fracture (04/23/25) Unspecified fall, initial encounter (04/23/25) Subjective Subjective Patient was seen and examined today, a stroke alert was called earlier today and the patient underwent a CT of the brain which showed a subacute stroke in the occipital area of the left brain. Patient was able to follow most commands on the neuroexam, he denied any vision loss to this examiner. Telestroke neurology recommended the patient not received tenecteplase as the timeframe of the patient's neurological deficit was not well-documented. It was recommended the patient remain on his prophylactic DVT dose of apixaban and receive aspirin. Patient is currently n.p.o. per speech therapy, I will transition him over to rectal aspirin. Objective Data Objective Data Vital Signs: Vital Signs Temp Pulse Resp BP Pulse Ox O2 Del Method O2 Flow Rate 97.9 F 95 20 H 194/87 H 89 Room Air 4 04/26/25 17:15 04/26/25 18:00 04/26/25 18:00 04/26/25 18:00 04/26/25 18:00 04/26/25 18:00 04/26/25 17:15 Oxygen Flow Rate (L/min) 4 Oxygen Delivery Method Room Air Weight: 73.5 kg Body Mass Index (BMI) 25.4 Intake & Output: Intake and Output for Last 24 Hours 04/24/25 04/25/25 04/26/25 23:59 23:59 23:59 Intake Total 4142 / 4142 3180 / 3180 1048 / 1048 Output Total 675 / 675 250 / 650 1025 / 1025 Balance 3467 / 3467 2930 / 2530 Lab / Micro Data 04/26/25 05:53 04/25/25 05:03 Labs: Laboratory Results - last 24 hr 04/23/25 21:46: Crossmatch See Detail 04/25/25 16:57: POC Glucose 102 04/25/25 23:08: POC Glucose 130 H 04/26/25 05:53: WBC 10.1, RBC 2.19 L, Hgb 7.1 L, Hct 21.8 L, MCV 99.5 H, MCH 32.4 H, MCHC 32.6, RDW Std Deviation 58.6 H, RDW Coeff of Eduarda 16.0 H, Plt Count 104 L, MPV 11.4, Immature Gran % (Auto) 0.500, Neut % (Auto) 72.4 H, Lymph % (Auto) 17.2 L, [place] % (Auto) 9.2, Eos % (Auto) 0.6, Baso % (Auto) 0.1, Absolute Neuts (auto) 7.3, Absolute Lymphs (auto) 1.73, Nucleated RBC % 0.4 04/26/25 06:36: POC Glucose 79 04/26/25 08:36: POC Glucose 97 04/26/25 11:15: POC Glucose 83 04/26/25 15:36: POC Glucose 82 Radiography Diagnostic Testing: Radiology Impression Head/Neck CTA 04/26/25 08:47 IMPRESSION: No significant stenosis seen. Red Alert: No sig stenosis The critical information above was relayed directly by me by telephone to Vern Rao on 04/26/2025 at 9:12 am with readback verification. Reading Location: [facility]- Brain CT 04/26/25 08:48 IMPRESSION: Several old infarcts as detailed above. New left [employer] territory infarct Call report to Reading Location: [facility]-IR-1 Physical Exam Narrative alert, no apparent distress, average body habitus and healthy appearing General Appearance: cooperative, well kempt and well developed Orientation / Consciousness: awake and oriented to person HEENT normocephalic, head/scalp atraumatic and moist oral mucous membranes Head and Scalp: normocephalic Eyes PERRL, EOMs intact bilaterally and conjunctivae normal Neck supple, no JVD, thyroid normal and no carotid bruits General: trachea midline Resp normal respiratory effort, no retractions, no use of accessory muscles and clear to auscultation bilaterally Auscultation: Negative for rales, rhonchi or wheezes Cardio regular rate, regular rhythm, S1 normal heart sound, S2 normal heart sound, no murmurs, no rub and no gallops GI normal to inspection, nondistended, normoactive bowel sounds, soft to palpation, non-tender and non-distended Extremity no clubbing, cyanosis or edema Skin no rashes or lesions noted General Skin Exam: no breakdown Neuro CN's II-XII intact bilaterally, no focal motor deficits and no sensory deficits noted Neuro Narrative: Patient is alert, he is confused, he does not appear agitated Sensorium / Orientation: awake, alert and oriented to person Speech: speech normal Psych Psych Narrative: Patient exhibits cognitive impairment, he is alert and does not carry on a conversation but says a few words which do not make sense. Assessment & Plan Assessment/Plan (1) Intertrochanteric fracture of left femur: (2) Closed fracture of left hip: PLAN: Plan 1. 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 Total clinical time spent by myself addressing the patient's medical issues, reviewing all of his data, and collaborating with the patient's care team: 35 minutes Charges/Coding Visit Charges Inpatient E&M: 68922 Subs Hosp L2 NIHSS NIHSS Nursing Documentation NIHSS Nursing Documentation: NIHSS: Ischemic Stroke/TIA Start: 04/26/25 10:12 Freq: Q4H Status: Active Protocol: Activity Type Activity Date Activity User E-sign Co-sign Detail Recorded Client Recorded Date Recorded By Document 04/26/25 14:14 CD [id number] 04/26/25 14:17 CD 04/26/25 14:14 NIH Stroke Scale [NIHSS] A score of 0 is normal or asymptomatic . Total possible score is 42. Inpatient: RN or Physician to activate a stroke alert for onset of new stroke symptoms or with NIHSS increase >/= 3 points. Following change in neurological status, NIHSS will be performed per physician order or more frequently PRN. -1a. Level of Consciousness 1 - Not alert; Arousable by minor stimuli to obey, answer & respond -1b. LOC Questions 1 - Answers ONE question correctly -1c. LOC Commands 1 - Performs ONE task correctly -2. Best Gaze 0 - Normal -3. Visual 0 - No visual loss -4. Facial Palsy 0 - Normal symmetrical movements -5a. Left Arm 2 - Some effort against gravity; -5b. Right Arm 3 - No effort against gravity ; arm falls -6a. Left Leg 3 - No effort against gravity ; leg falls to bed immediately -6b. Right Leg 3 - No effort against gravity ; leg falls to bed immediately -7. Limb Ataxia 0 - Absent -8. Sensory 0 - Normal; no sensory loss -9. Best Language 2 - Severe aphasia; -10. Dysarthria 2 - Severe dysarthria; -11. Extinction and Inattention 0 - No abnormality -Total 18 Query Text:A score of 0 is normal or asymptomatic. Total possible score is 42 . ED: Notify Physician for NIHSS increase by > / = 3 points. Inpatient: RN or Physician to activate a stroke alert for NIHSS increase of > / = 3 points.
[2025-04-26] MEDS: hydrALAZINE 20 MG/ML Vial 10 MG IV (18:56)
[2025-04-26] MEDS: 0.9% Normal Saline (1000mL) 1,000 ML 75 ML IV (18:56)
[2025-04-26] MEDS: Morphine 2 MG/ML Syringe IV (19:59)
[2025-04-26] MEDS: 0.9% Saline Lock 10 ML Syringe IV (20:00)
[2025-04-26] MEDS: Enoxaparin 30 MG/0.3 ML Syringe SC (20:00)
[2025-04-26] MEDS: Aspirin 300 MG Suppository RC (20:00)
[2025-04-26 23:16] LABS: Bedside Glucose 77 mg/dL (74-106)
[2025-04-27] VITALS (15 sets, daily range): BP systolic 127–175; BP diastolic 61–92; PULSE 81–114; RESP 19–28; TEMP 36.6–37.3; O2SAT 92–98; BMI 25.4; BMI 25.2
[2025-04-27] MEDS: 0.9% Saline Lock 10 ML Syringe IV ×3 (00:56→22:01)
[2025-04-27] MEDS: hydrALAZINE 20 MG/ML Vial 10 MG IV ×4 (00:56→19:26)
[2025-04-27] MEDS: Enoxaparin 30 MG/0.3 ML Syringe SC (06:11)
[2025-04-27 06:14] LABS: Bedside Glucose 78 mg/dL (74-106)
[2025-04-27] MEDS: 0.9% Normal Saline (1000mL) 1,000 ML 75 ML IV (08:34)
--- NOTE | 2025-04-27 09:00 | MRI_ITS ---
PROCEDURE: BRAIN WITHOUT CONTRAST 04/27/2025 REASON FOR EXAM: SUBACUTE STROKE TECHNIQUE: Noncontrast brain MRI. Multiplanar and multisequence images were obtained. COMPARISON: Head CT of 04/26/2025 FINDINGS: Brain: A moderately large area of diffusion restriction is seen of the left parieto- occipital region, consistent with posterior cerebral artery infarction noted on the CT examination of 04/26/2025. No midline shift or significant mass effect is associated. At least moderate bilateral cerebral and pontine white matter changes are seen, consistent with chronic ischemic changes of small-vessel disease. 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 Small chronic appearing left cerebellar infarction. No extra-axial fluid collection is noted. Ventricles: Moderate generalized cerebral and cerebellar atrophy is seen, with symmetric ventricular enlargement consistent with the degree of atrophy. Major Intracranial Vessels: Unremarkable. Sinuses: Moderate bilateral ethmoid air cell mucosal thickening is seen. No air-fluid level is noted. The remaining paranasal sinuses appear clear. Mastoids: Partial opacification of left mastoid air cells is seen, of uncertain chronicity; recommend clinical and historical correlation. Right mastoid air cells appear clear. MRI/Brain without Contrast IMPRESSION: 1. Moderately large left parieto-occipital infarction, without associated midli ne shift or significant mass effect. 2. Moderate generalized cerebral and cerebellar atrophy. 3. At least moderate bilateral cerebral and pontine white matter changes are se en, consistent with chronic ischemic changes of small-vessel disease. 4. Partial opacification of left mastoid air cells, of uncertain chronicity; re commend clinical and historical correlation. 5. Additional findings as noted. Reading Location: [address]
[2025-04-27] MEDS: Lorazepam 2 MG/ML WCH Syringe 1 MG IV (09:34)
[2025-04-27] MEDS: Morphine 4 MG/ML Syringe IV (10:14)
[2025-04-27] MEDS: Aspirin 300 MG Suppository RC (12:59)
[2025-04-27 13:37] LABS: Bedside Glucose 90 mg/dL (74-106)
--- NOTE | 2025-04-27 14:34 | CASEMGMT ---
Social Work- SW participated in interdisciplinary rounds with care team. Pt reported to not be appropriate for PT to work with at this time. Pt previously accepted at TCU prior to admittance to ICU. SW continue to follow. ZHANE Alvarez
[2025-04-27] MEDS: Losartan Potassium 50 MG Tablet PO (15:59)
[2025-04-27] MEDS: PARoxetine 10 MG Tablet PO (15:59)
[2025-04-27] MEDS: Allopurinol 300 MG Tablet PO (15:59)
[2025-04-27] MEDS: Memantine Hydrochloride 10 MG Tablet PO (15:59)
[2025-04-27] MEDS: Acetaminophen 500 MG Tablet 1000 MG PO (16:01)
[2025-04-27 17:04] LABS: Bedside Glucose 99 mg/dL (74-106)
--- NOTE | 2025-04-27 18:09 | PN.HOSP_ITS ---
Reason for Visit Reason for Visit: Diagnoses Fracture of unspecified part of neck of left femur, initial encounter for closed fracture (04/23/25) Displaced intertrochanteric fracture of left femur, initial encounter for closed fracture (04/23/25) Unspecified fall, initial encounter (04/23/25) Subjective Subjective Patient was seen and examined today, he had an MRI which again showed a left occipital parietal infarct, there was also 2 smaller infarcts-read out did not mention whether they were new or old. I talked at length to his who was in the room at the time of my examination, patient's mental status is still somnolent, he does take ice cream orally and he does take his pills with applesauce. I feel he is stable for transfer to PCU for further care at this time. I do not think he is a candidate to go to the rehab unit due to the fact I do not think he can perform 3 hours of physical therapy. I asked the to think about whether she would want a feeding tube if it came down to that scenario, she will discuss this with her children. Objective Data Objective Data Vital Signs: Vital Signs Temp Pulse Resp BP Pulse Ox O2 Del Method O2 Flow Rate 97.9 F 92 19 H 137/82 H 92 Room Air 2 04/27/25 16:00 04/27/25 16:00 04/27/25 16:00 04/27/25 16:00 04/27/25 16:00 04/27/25 16:00 04/27/25 13:20 Oxygen Flow Rate (L/min) 2 Oxygen Delivery Method Room Air Weight: 73 kg Body Mass Index (BMI) 25.2 Intake & Output: Intake and Output for Last 24 Hours 04/25/25 04/26/25 04/27/25 23:59 23:59 23:59 Intake Total 3180 / 3180 1448 / 1448 1113.75 / 1113.75 Output Total 250 / 650 1225 / 1575 1350 / 1350 Balance 2930 / 2530 223 / -127 -236.25 / -236.25 Lab / Micro Data 04/26/25 05:53 04/25/25 05:03 Labs: Laboratory Results - last 24 hr 04/23/25 21:46: Crossmatch See Detail 04/26/25 22:56: POC Glucose 77 04/27/25 05:44: POC Glucose 78 04/27/25 13:19: POC Glucose 90 04/27/25 16:15: POC Glucose 99 Radiography Diagnostic Testing: Radiology Impression Brain MRI 04/27/25 09:00 IMPRESSION: 1. Moderately large left parieto-occipital infarction, without associated midline shift or significant mass effect. 2. Moderate generalized cerebral and cerebellar atrophy. 3. At least moderate bilateral cerebral and pontine white matter changes are seen, consistent with chronic ischemic changes of small-vessel disease. 4. Partial opacification of left mastoid air cells, of uncertain chronicity; recommend clinical and historical correlation. 5. Additional findings as noted. Reading Location: [address] Physical Exam Narrative alert, no apparent distress, average body habitus and healthy appearing General Appearance: cooperative, well kempt and well developed Orientation / Consciousness: awake and oriented to person HEENT normocephalic, head/scalp atraumatic and moist oral mucous membranes Head and Scalp: normocephalic Eyes PERRL, EOMs intact bilaterally and conjunctivae normal Neck supple, no JVD, thyroid normal and no carotid bruits General: trachea midline Resp normal respiratory effort, no retractions, no use of accessory muscles and clear to auscultation bilaterally Auscultation: Negative for rales, rhonchi or wheezes Cardio regular rate, regular rhythm, S1 normal heart sound, S2 normal heart sound, no murmurs, no rub and no gallops GI normal to inspection, nondistended, normoactive bowel sounds, soft to palpation, non-tender and non-distended Extremity no clubbing, cyanosis or edema Skin no rashes or lesions noted General Skin Exam: no breakdown Neuro CN's II-XII intact bilaterally, no focal motor deficits and no sensory deficits noted Neuro Narrative: Patient is alert, he is confused, he does not appear agitated Sensorium / Orientation: awake, alert and oriented to person Speech: speech normal Psych Psych Narrative: Patient exhibits cognitive impairment, he is alert and does not carry on a conversation but says a few words which do not make sense. Assessment & Plan Assessment/Plan (1) Intertrochanteric fracture of left femur: (2) Closed fracture of left hip: PLAN: Plan 1. 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 Patient's white blood cell count is slightly high #4 hyperkalemia-BMP will be repeated tomorrow #5 chronic kidney disease stage IV-patient's IV fluids will be continued at 75/h #6 dzljhbia-hlgydqib-izfkipvlcko care, management, recovery, and prognosis #7 slightly low platelet count-CBC will be rechecked tomorrow #8 acute anemia-secondary to acute blood loss from left hip fracture- CBC will be rechecked tomorrow #9 cardiomyopathy by history-patient's echocardiogram showed an ejection fraction of 55% #10 subacute occipital infarction-patient will remain on rectal aspirin, I will place him on Lovenox for DVT prophylaxis since he is n.p.o. Total clinical time spent by myself addressing the patient's medical issues, reviewing all of his data, and collaborating with the patient's care team: 35 minutes Charges/Coding Visit Charges Inpatient E&M: 73366 Subs Hosp L2 NIHSS NIHSS Nursing Documentation NIHSS Nursing Documentation: NIHSS: Ischemic Stroke/TIA Start: 04/26/25 10:12 Freq: Q4H Status: Active Protocol: Activity Type Activity Date Activity User E-sign Co-sign Detail Recorded Client Recorded Date Recorded By Document 04/27/25 16:00 DS [id number] 04/27/25 16:32 DS 04/27/25 16:00 NIH Stroke Scale [NIHSS] A score of 0 is normal or asymptomatic . Total possible score is 42. Inpatient: RN or Physician to activate a stroke alert for onset of new stroke symptoms or with NIHSS increase >/= 3 points. Following change in neurological status, NIHSS will be performed per physician order or more frequently PRN. -1a. Level of Consciousness 1 - Not alert; Arousable by minor stimuli to obey, answer & respond -1b. LOC Questions 2 - Answers NEITHER question correctly -1c. LOC Commands 2 - Performs NEITHER task correctly -3. Visual 0 - No visual loss -4. Facial Palsy 0 - Normal symmetrical movements -5a. Left Arm 2 - Some effort against gravity; -5b. Right Arm 3 - No effort against gravity ; arm falls -6a. Left Leg 3 - No effort against gravity ; leg falls to bed immediately -6b. Right Leg 3 - No effort against gravity ; leg falls to bed immediately -7. Limb Ataxia 0 - Absent -8. Sensory 0 - Normal; no sensory loss -9. Best Language 2 - Severe aphasia; -10. Dysarthria 2 - Severe dysarthria; -11. Extinction and Inattention 0 - No abnormality -Total 20 Query Text:A score of 0 is normal or asymptomatic. Total possible score is 42 . ED: Notify Physician for NIHSS increase by > / = 3 points. Inpatient: RN or Physician to activate a stroke alert for NIHSS increase of > / = 3 points.
--- NOTE | 2025-04-27 21:18 | NURSING ---
This RN taking over care for this pt who was transferred to PCU from ICU at 2048 on 04/27/25.
[2025-04-27] MEDS: Morphine 2 MG/ML Syringe IV (22:01)
[2025-04-28] VITALS (15 sets, daily range): BP systolic 102–162; BP diastolic 52–84; PULSE 74–96; RESP 16–24; TEMP 36.4–37; O2SAT 91–97; BMI 25.2; BMI 25.0
[2025-04-28] MEDS: 0.9% Normal Saline (1000mL) 1,000 ML 75 ML IV ×2 (00:51→15:58)
[2025-04-28] MEDS: hydrALAZINE 20 MG/ML Vial 10 MG IV ×3 (01:12→12:54)
[2025-04-28] MEDS: 0.9% Saline Lock 10 ML Syringe IV ×2 (01:13→20:56)
[2025-04-28] MEDS: Morphine 2 MG/ML Syringe IV ×6 (01:13→20:56)
[2025-04-28 01:43] LABS: Bedside Glucose 87 mg/dL (74-106)
[2025-04-28] MEDS: Enoxaparin 30 MG/0.3 ML Syringe SC (05:12)
[2025-04-28 06:54] LABS: Absolute Neutrophil Count 9.5 X10^3/uL (2.0-7.7); Basophil# 0.01 X10^3/uL; Basophil% 0.1 % (0-1); Eosinophil# 0.04 X10^3/uL; Eosinophils% 0.3 % (0-5); Hematocrit 25.4 % (40-54); Hemoglobin 8.6 g/dL (13.0-16.5); Lymphocyte % 9.6 % (19-41); Mean Corp Hgb Conc 33.9 g/dL (32-36); Mean Corpuscular Hgb 31.9 pg (27.0-32.0); Mean Corpuscular Volume 94.1 fL (80-94); Monocyte# 0.82 X10^3/uL; Monocyte% 7.1 % (0-10); NRBC Flagged by Analyzer 0.9 % (0-5); Neutrophil # 9.46 X10^3/uL (2.7-7.7); Neutrophil % 82.5 % (47-70); Platelet Count 133 K/mm3 (150-450); RBC Distribution Width CV 16.1 % (11.6-14.6); RBC Distribution Width SD 55.3 fl (35.1-43.9); White Blood Count 11.5 K/mm3 (4.4-11.0)
[2025-04-28 07:17] LABS: Bedside Glucose 94 mg/dL (74-106)
[2025-04-28 07:50] LABS: Anion Gap 12 (5-15); BUN 52 mg/dL (4-19); Calcium,Total 8.3 mg/dL (7.6-11.0); Carbon Dioxide 13.3 mmol/L (21.0-32.0); Chloride 122 mmol/L (98-108); Creatinine, Serum 1.73 mg/dL (0.70-1.20); EST Glomerular Filtration Rate 39 (>60); Glucose 101 mg/dL (70-99); Sodium Level 147 mmol/L (133-145)
--- NOTE | 2025-04-28 09:39 | ST.MBS ---
Modified Barium Swallow Patient Information Study Date: 04/28/25 Study Time: 09:00 Direct Billable Minutes: 120 Total Minutes procedure & reportin Diagnosis: subacute occipital infarction, Alzheimer's disease Referring Physician: Vern Rao Medical History: The patient is an 85-year-old male with a complex medical history, including Alzheimer?s disease with mild cognitive impairment and behavioral changes, Hairy Cell Leukemia (diagnosed in 1982), heart failure with reduced ejection fraction (EF 35%), stage III chronic kidney disease (subtype unspecified), hypertension, hyperlipidemia, gout, type II diabetes mellitus (per chart), benign prostatic hyperplasia with obstructive symptoms, chronic/iron deficiency anemia, anxiety, and depression. He presented to the [facility] Emergency Department on 04/23/25 after a mechanical fall while walking with his . The patient, who ambulated hunched over with a cane, tripped over a curb and fell into a vehicle, then to the ground, impacting his left hip and leg. Imaging confirmed a left intertrochanteric hip fracture, and he underwent surgical repair with insertion of a cephalomedullary nail (post-op day #4). On 04/26/25, a stroke alert was initiated due to new right-sided weakness and garbled speech. MRI revealed a left occipital-parietal infarct along with two smaller infarcts of unclear chronicity. Additionally, the patient is showing signs of aspiration with oral intake, prompting evaluation with a Modified Barium Swallow Study (MBSS). Current Diet Ordered: NPO Mental Status: Impaired Respiratory Status: Oxygenating on 4L/M nasal cannula Penetration-Aspiration Scale Penetration-Aspiration Scale: OBJECTIVE ASSESSMENT OF SWALLOW FUNCTION (QUANTITATIVE ? PER TRIAL): PENETRATION / ASPIRATION SCALE (CARRANZA): 1 = does not enter airway 2 = enters airway/above vocal folds/ejected 3 = enters airway/above vocal folds/not ejected 4 = enters airway/contacts vocal folds/ejected 5 = enters airway/contacts vocal folds/not ejected 6 = enters airway/below vocal folds/ejected 7 = enters airway/below vocal folds/not ejected despite effort 8 = enters airway/below vocal folds/no effort VIDEOFLOROSCOPIC SCALE SCORE (CARRANZA): Grade I = aspiration of material that has penetrated into the laryngeal vestibule, intact cough reflex Grade II = aspiration < 10 % of the bolus, intact cough reflex Grade III = aspiration of < 10 % of the bolus, reduced cough reflex or aspiration of > 10 % of the bolus, intact cough reflex Grade IV = aspiration of > 10 % of the bolus, reduced cough reflex Penetration-Aspiration Scale Score Thin Liquid via teaspoon: Result: 1= does not enter airway Thin Liquid via small single sip: cup: Result: 5= enters airways/contacts vocal folds/not ejected Thin Liquid via single sip: straw: Result: 5= enters airways/contacts vocal folds/not ejected Comment: Due to body habitus, aspiration cannot be confidently ruled out. Thin Liquid via single sip: straw Trial 2: Result: 5= enters airways/contacts vocal folds/not ejected [place] Thick Liquid via small single sip: cup: Result: 2= enter airway/above vocal folds/ejected [place] Thick Liquid via small single sip: cup Trial 2: Result: 1= does not enter airway Pudding: Result: 1= does not enter airway Pudding Trial 2: Result: 1= does not enter airway Cookie: Result: 1= does not enter airway [place] Thick Liquid via small single sip: cup Trial 3: Result: 1= does not enter airway [place] Thick Liquid via sequential sips:straw: Result: 7= enters airways/below vocal folds/not ejected despite effort [place] Thick Liquid via small single sip: cup Trial 4: Result: 2= enter airway/above vocal folds/ejected Oral Phase Labial Seal: Escape beyond interlabial space; no extension beyond sean border Tongue Control During Bolus Hold: Posterior escape of greater than half of bolus Bolus Preparation/Mastication: Disorganized chewing/mashing with solid pieces of bolus unchewed Bolus Transport/Lingual Motion: Repetitive/disorganized tongue motion Oral Residue: Residue collection on oral structures Pharyngeal Phase Initiation of Pharyngeal Swallow: Bolus head in pyriforms Soft Palate Elevation: Escape to nasopharynx Laryngeal Elevation: Partial superior movement thyroid cart/partial apprx aryt-epig petiole Anterior Hyoid Excursion: Partial anterior movement Epiglottic Movement: Complete inversion Laryngeal Vestibule Closure at Height of Swallow: Incomplete; narrow column of air/contrast in laryngeal vestibule Pharyngeal Stripping Wave: Present - diminished Pharyngoesophageal Segment Opening: Parital distension and partial duration; parital obstruction of flow Tongue Base Retraction: Wide column of contrast between tongue base & post. pharyngeal wall Pharyngeal Residue: Collection of residue within or on pharyngeal structures Diagnosis/Impression Diagnosis: OROPHARYNGEAL DYSPHAGIA R13.12 Impression: The patient presents with oropharyngeal dysphagia. Oral Phase: Significant oral phase deficits are noted, likely related to underlying Alzheimer?s disease and altered mental status. These include impaired labial seal, poor bolus control with premature spillage, and disorganized mastication. AP transit is slowed, with repetitive, uncoordinated lingual movements observed. Pharyngeal Phase: There is evidence of nasopharyngeal escape. Poor airway protection, attributed to delayed pharyngeal swallow initiation and inadequate bolus control. Bolus entry into the airway occurs prior to swallow onset. Laryngeal elevation and closure are incomplete, with reduced anterior hyoid excursion. Consistent laryngeal penetration to the level of the vocal cords and/or aspiration is observed with thin liquids. Notably, single sips of nectar-thick liquids result in improved airway protection. Additional findings include a wide tongue base and diminished pharyngeal stripping wave, contributing to post-swallow residue in the valleculae and pyriform sinuses. Double swallows are most effective in clearing this residue. Recommendations Diet: Puree Textures and Mildly Thick Liquids Compensatory Strategies: Small Bites, Small Sips, No Straws, Slow Rate, Feed only when alert, Multiple Swallows, Alternate bites/solids and sips/liquids, Sitting upright, Remain sitting upright for 30 minutes after PO intake and Assist with verbal cues to use recommended strategies Supervision: Total Feed and 1:1 Direct Supervision Recommend Repeat Modified Barium Swallow: Yes Need for Skilled Speech Therapy Services: Yes Education Completed: 1. Described result of evaluation., 2. Pt understands evaluation & agrees with goals and treatment plan. and 4. Family/caregivers understand evaluation & agree w/ goals & tx plan. Status Active ST Patient: Active Contact Information [facility] Speech Therapy:: Beulah Hunter M.A., [facility]TRANSPORTATION SALES CONSULTANT Speech-Language Pathologist [facility] [phone]? ?FAX [phone]? ?[email or web address] [address] [place] [address]? ?[place] [address]
--- NOTE | 2025-04-28 10:48 | CASEMGMT ---
PER checked in with Lillian in TCU and she has not officially accepted patient yet. She was reviewing patient when he was a Stroke alert. Lillian will review patient. Nida Vera QUALITATIVE FIELD PROJECT MANAGER ALANNA
[2025-04-28 12:57] LABS: Bedside Glucose 112 mg/dL (74-106)
[2025-04-28] MEDS: Aspirin 300 MG Suppository RC (12:59)
[2025-04-28] MEDS: Acetaminophen 500 MG Tablet 1000 MG PO ×2 (15:58→23:04)
[2025-04-28 16:58] LABS: Bedside Glucose 119 mg/dL (74-106)
--- NOTE | 2025-04-28 19:10 | PCM.PN.HOSP ---
Reason for Visit Reason for Visit: Diagnoses Fracture of unspecified part of neck of left femur, initial encounter for closed fracture (04/23/25) Displaced intertrochanteric fracture of left femur, initial encounter for closed fracture (04/23/25) Unspecified fall, initial encounter (04/23/25) Subjective Subjective Patient was seen and examined today, I talked briefly with high school social studies teacher today and they stated that they have patient's ability to do PT and OT is severely compromised, it is their opinion they feel that his insurance may not pay for a longterm stay for rehab services. I relayed this to the , I asked her to think about whether she would want the patient seen by hospice, I also stated that she should be prepared if his insurance does not approve a penitentiary stay-this means she will have to pay for the penitentiary [id number]. Objective Data Objective Data Vital Signs: Vital Signs Temp Pulse Resp BP Pulse Ox O2 Del Method O2 Flow Rate 97.6 F L 74 16 102/52 L 95 Nasal Cannula 4 04/28/25 16:00 04/28/25 16:00 04/28/25 16:00 04/28/25 17:38 04/28/25 16:00 04/28/25 16:00 04/28/25 12:30 Oxygen Flow Rate (L/min) 4 Oxygen Delivery Method Nasal Cannula Weight: 72.5 kg Body Mass Index (BMI) 25.0 Intake & Output: Intake and Output for Last 24 Hours 04/26/25 04/27/25 04/28/25 23:59 23:59 23:59 Intake Total 1448 / 1448 1999.00 / 1999.00 1120 / 1120 Output Total 1225 / 1575 2175 / 2175 1500 / 1500 Balance 223 / -127 -175.00 / -175.00 -380 / -380 Lab / Micro Data 04/28/25 06:39 04/28/25 06:39 Labs: Laboratory Results - last 24 hr 04/28/25 01:10: POC Glucose 87 04/28/25 06:39: WBC 11.5 H, RBC 2.70 L, Hgb 8.6 L, Hct 25.4 L, MCV 94.1 H D, MCH 31.9, MCHC 33.9, RDW Std Deviation 55.3 H, RDW Coeff of Eduarda 16.1 H, Plt Count 133 L, MPV 11.0, Immature Gran % (Auto) 0.400, Neut % (Auto) 82.5 H, Lymph % (Auto) 9.6 L, Davison % (Auto) 7.1, Eos % (Auto) 0.3, Baso % (Auto) 0.1, Absolute Neuts (auto) 9.5 H, Absolute Lymphs (auto) 1.10, Nucleated RBC % 0.9, Sodium 147 H, Potassium 5.0, Chloride 122 H, Carbon Dioxide 13.3 L, Anion Gap 12, BUN 52 H, Creatinine 1.73 H, Estim Creat Clear Calc 29.20 L, Est GFR (MDRD) Non-Af 39 L, BUN/Creatinine Ratio 30.0 H, Glucose 101 H, Calcium 8.3 04/28/25 06:58: POC Glucose 94 04/28/25 12:29: POC Glucose 112 H 04/28/25 16:37: POC Glucose 119 H Physical Exam Narrative alert, no apparent distress, average body habitus and healthy appearing General Appearance: cooperative, well kempt and well developed Orientation / Consciousness: awake and oriented to person HEENT normocephalic, head/scalp atraumatic and moist oral mucous membranes Head and Scalp: normocephalic Eyes PERRL, EOMs intact bilaterally and conjunctivae normal Neck supple, no JVD, thyroid normal and no carotid bruits General: trachea midline Resp normal respiratory effort, no retractions, no use of accessory muscles and clear to auscultation bilaterally Auscultation: Negative for rales, rhonchi or wheezes Cardio regular rate, regular rhythm, S1 normal heart sound, S2 normal heart sound, no murmurs, no rub and no gallops GI normal to inspection, nondistended, normoactive bowel sounds, soft to palpation, non-tender and non-distended Extremity no clubbing, cyanosis or edema Skin no rashes or lesions noted General Skin Exam: no breakdown Neuro CN's II-XII intact bilaterally, no focal motor deficits and no sensory deficits noted Neuro Narrative: Patient is alert, he is confused, he does not appear agitated Sensorium / Orientation: awake, alert and oriented to person Speech: speech normal Psych Psych Narrative: Patient exhibits cognitive impairment, he is alert and does not carry on a conversation but says a few words which do not make sense. Assessment & Plan Assessment/Plan (1) Intertrochanteric fracture of left femur: (2) Closed fracture of left hip: PLAN: Plan 1. 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 Patient's white blood cell count is slightly high #4 hyperkalemia-resolved at this time #5 chronic kidney disease stage IV-patient's IV fluids will be continued at 75/h #6 eucfopso-ftaiygue-evjjclneexg care, management, recovery, and prognosis #7 slightly low platelet count-no treatment necessary #8 acute anemia-secondary to acute blood loss from left hip fracture-hemoglobin was 8.6 today and appears stable #9 cardiomyopathy by history-patient's echocardiogram showed an ejection fraction of 55% #10 subacute occipital infarction-patient is on a baby aspirin a day Total clinical time spent by myself addressing the patient's medical issues, reviewing all of his data, and collaborating with the patient's care team: 35 minutes Charges/Coding Visit Charges Inpatient E&M: 63435 Subs Hosp L2 NIHSS NIHSS Nursing Documentation NIHSS Nursing Documentation: NIHSS: Ischemic Stroke/TIA Start: 04/26/25 10:12 Freq: Q4H Status: Active Protocol: Activity Type Activity Date Activity User E-sign Co-sign Detail Recorded Client Recorded Date Recorded By Document 04/28/25 16:00 ML [id number] 04/28/25 18:57 ML 04/28/25 16:00 NIH Stroke Scale [NIHSS] A score of 0 is normal or asymptomatic . Total possible score is 42. Inpatient: RN or Physician to activate a stroke alert for onset of new stroke symptoms or with NIHSS increase >/= 3 points. Following change in neurological status, NIHSS will be performed per physician order or more frequently PRN. -1a. Level of Consciousness 0 - Alert; keenly responsive -1b. LOC Questions 2 - Answers NEITHER question correctly -1c. LOC Commands 1 - Performs ONE task correctly -2. Best Gaze 0 - Normal -3. Visual 0 - No visual loss -4. Facial Palsy 0 - Normal symmetrical movements -5a. Left Arm 2 - Some effort against gravity; -5b. Right Arm 2 - Some effort against gravity; -6a. Left Leg UN - Amputation or joint fusion, explain : -'UN' explanation recent fracture -6b. Right Leg 3 - No effort against gravity ; leg falls to bed immediately -7. Limb Ataxia 0 - Absent -8. Sensory 0 - Normal; no sensory loss -9. Best Language 2 - Severe aphasia; -10. Dysarthria 2 - Severe dysarthria; -11. Extinction and Inattention 0 - No abnormality -Total 14 Query Text:A score of 0 is normal or asymptomatic. Total possible score is 42 . ED: Notify Physician for NIHSS increase by > / = 3 points. Inpatient: RN or Physician to activate a stroke alert for NIHSS increase of > / = 3 points. Coma Scale [Assess] -Eye Opening To Voice -Motor Localizes to Pain -Verbal Confused [Total] -Coma Scale Total 12
[2025-04-28] MEDS: Memantine Hydrochloride 10 MG Tablet PO (23:00)
[2025-04-28] MEDS: Senna/Docusate Sodium 1 Tablet 2 TABLET PO (23:00)
[2025-04-28] MEDS: Atorvastatin Calcium 80 MG Tablet PO (23:00)
[2025-04-28] MEDS: Donepezil HCl 10 MG Tablet PO (23:00)
[2025-04-28] MEDS: Doxazosin 1 MG Tablet PO (23:00)
[2025-04-28] MEDS: oxyCODONE 5 MG Tablet PO (23:04)
[2025-04-28 23:36] LABS: Bedside Glucose 99 mg/dL (74-106)
[2025-04-29] VITALS (11 sets, daily range): BP systolic 138–164; BP diastolic 62–79; PULSE 81–101; RESP 17–20; TEMP 36.6–37.2; O2SAT 83–98; BMI 25.3
[2025-04-29] MEDS: Morphine 2 MG/ML Syringe IV ×3 (02:22→21:01)
[2025-04-29] MEDS: 0.9% Saline Lock 10 ML Syringe IV ×2 (02:22→21:01)
[2025-04-29] MEDS: Acetaminophen 500 MG Tablet 1000 MG PO ×3 (05:02→22:45)
[2025-04-29] MEDS: oxyCODONE 5 MG Tablet PO ×4 (05:02→22:52)
[2025-04-29] MEDS: Enoxaparin 30 MG/0.3 ML Syringe SC (05:08)
[2025-04-29] MEDS: 0.9% Normal Saline (1000mL) 1,000 ML 75 ML IV ×2 (05:09→18:37)
[2025-04-29 06:45] LABS: Bedside Glucose 111 mg/dL (74-106)
[2025-04-29 06:50] LABS: Anion Gap 11 (5-15); BUN 56 mg/dL (4-19); BUN/Creat Ratio 31.5 RATIO (10-20); Calcium,Total 8.4 mg/dL (7.6-11.0); Chloride 126 mmol/L (98-108); Creatinine, Serum 1.77 mg/dL (0.70-1.20); EST Glomerular Filtration Rate 38 (>60); Estimated Creatinine Clearance 28.54 ml/min (50-250); Glucose 115 mg/dL (70-99); Magnesium 2.3 mg/dL (1.5-2.2); Potassium 4.2 mmol/L (3.3-5.1); Sodium Level 152 mmol/L (133-145)
--- NOTE | 2025-04-29 07:55 | EKG12_ITS ---
Test Reason : CP Blood Pressure : */* mmHG Vent. Rate : 88 BPM Atrial Rate : 88 BPM P-R Int : 148 ms QRS Dur : 120 ms QT Int : 404 ms P-R-T Axes : 41 -6 171 degrees QTcB Int : 488 ms Sinus rhythm with frequent Premature ventricular complexes Cannot rule out Anterior infarct , age undetermined Marked ST abnormality, possible lateral subendocardial injury Abnormal ECG When compared with ECG of 23-Apr-2025 21:55, Premature ventricular complexes are now Present Vent. rate has increased by 30 bpm Left bundle branch block is no longer Present Minimal criteria for Anterior infarct are now Present Confirmed by Kolby Cr ([id number]), website/blog editor ELGIN ROJO ([id number]) on 04/29/2025 1:18:40 PM Referred By: LUAN Confirmed By: Kolby Cr
[2025-04-29] MEDS: Allopurinol 300 MG Tablet PO (09:11)
[2025-04-29] MEDS: PARoxetine 10 MG Tablet PO (09:11)
[2025-04-29] MEDS: Aspirin 81 MG TAB.CHEW PO (09:11)
[2025-04-29] MEDS: Memantine Hydrochloride 10 MG Tablet PO ×2 (09:11→22:45)
[2025-04-29] MEDS: Losartan Potassium 50 MG Tablet PO (09:11)
[2025-04-29] MEDS: Senna/Docusate Sodium 1 Tablet 2 TABLET PO ×2 (09:14→22:45)
[2025-04-29] MEDS: Ensure Plus High Protein 120 ML LIQUID PO ×3 (09:32→16:31)
[2025-04-29 11:47] LABS: Bedside Glucose 122 mg/dL (74-106)
--- NOTE | 2025-04-29 11:51 | CASEMGMT ---
Addendum entered by Nida Vera 04/29/25 12:13: PER checked back with Annemarie and asked if it was okay if SW sent a referral to [facility] to see if they can accept him and if insurance will approve. Annemarie said that would be fine. PER asked Susannah d/c development and planning engineer to please send a referral to [facility]. Nida Vera CUSTOMER EQUIPMENT ENGINEER SENIOR MECHANICAL TECHNICIAN Original Note: SW went to patient's room. SW met with patient's , Annemarie. Introduced self and role at [facility]. PER explained that [facility]CU is unable to take patient as he needs more longterm care. Annemarie said the only other places around here on the list would be [facility]. Annemarie said the Dr told her insurance won't approve him to go get rehab. PER explained it is a good possibility, but we do not know until information is submitted to insurance. The senior care is the one that submits information to insurance. PER explained patient would stay at [facility] until we receive an answer. Annemarie asked what happens if he is denied. PER told her patient would be private pay. Annemarie said patient only has $8,000. Annemarie needed to think about what to do. Plan: TBD Nida Vera CUSTOMER EQUIPMENT ENGINEERCal [place]
--- NOTE | 2025-04-29 12:28 | CASEMGMT ---
Addendum entered by Susannah Solis 04/29/25 15:48: Call placed to [facility]. Lexy in admission is out for the day. left for DON. SW updated. Susannah Solis DC Planning Asst. Original Note: Discharge Planning Referral sent to [facility]. Susannah Solis DC Planning Asst.
[2025-04-29 17:01] LABS: Bedside Glucose 120 mg/dL (74-106)
--- NOTE | 2025-04-29 19:27 | PN.HOSP_ITS ---
Reason for Visit Reason for Visit: Diagnoses Fracture of unspecified part of neck of left femur, initial encounter for closed fracture (04/23/25) Displaced intertrochanteric fracture of left femur, initial encounter for closed fracture (04/23/25) Unspecified fall, initial encounter (04/23/25) Subjective Subjective Patient was seen and examined today, I talked with his who was in the room at the time my examination. Patient is talking more today but appears to be agitated at times grabbing at his left knee. Patient complained of chest pain earlier this morning, an EKG was obtained which showed a normal sinus rhythm with no changes from his previous EKG. Patient's sodium was high today at 152 and his chloride was high at 126. I have elected to change him to D5 half- normal saline. Patient's decided that she wanted to try to have him go to [facility], a request to [facility] was submitted today. Objective Data Objective Data Vital Signs: Vital Signs Temp Pulse Resp BP Pulse Ox O2 Del Method O2 Flow Rate 98.0 F 86 20 H 138/62 H 94 Nasal Cannula 2 04/29/25 16:32 04/29/25 16:32 04/29/25 16:32 04/29/25 16:32 04/29/25 16:32 04/29/25 16:32 04/29/25 16:32 Oxygen Flow Rate (L/min) 2 Oxygen Delivery Method Nasal Cannula Weight: 73.2 kg Body Mass Index (BMI) 25.3 Intake & Output: Intake and Output for Last 24 Hours 04/27/25 04/28/25 04/29/25 23:59 23:59 23:59 Intake Total 1999. 1120 / 1120 1987.5 / 1986.5 Output Total 2175 / 2175 1999 1200 / 1200 Balance -175.00 / -175.00 -880 / -880 787.5 / 787.5 Lab / Micro Data 04/28/25 06:39 04/30/25 04:32 Labs: Laboratory Results - last 24 hr 04/28/25 23:15: POC Glucose 99 04/29/25 05:16: Sodium 152 H, Potassium 4.2, Chloride 126 H, Carbon Dioxide 15.0 L, Anion Gap 11, BUN 56 H, Creatinine 1.77 H, Estim Creat Clear Calc 28.54 L, E st GFR (MDRD) Non-Af 38 L, BUN/Creatinine Ratio 31.5 H, Glucose 115 H, Calcium 8.4, Magnesium 2.3 H 04/29/25 06:26: POC Glucose 111 H 04/29/25 11:29: POC Glucose 122 H 04/29/25 16:29: POC Glucose 120 H Physical Exam Narrative alert, no apparent distress, average body habitus and healthy appearing General Appearance: cooperative, well kempt and well developed Orientation / Consciousness: awake and oriented to person HEENT normocephalic, head/scalp atraumatic and moist oral mucous membranes Head and Scalp: normocephalic Eyes PERRL, EOMs intact bilaterally and conjunctivae normal Neck supple, no JVD, thyroid normal and no carotid bruits General: trachea midline Resp normal respiratory effort, no retractions, no use of accessory muscles and clear to auscultation bilaterally Auscultation: Negative for rales, rhonchi or wheezes Cardio regular rate, regular rhythm, S1 normal heart sound, S2 normal heart sound, no murmurs, no rub and no gallops GI normal to inspection, nondistended, normoactive bowel sounds, soft to palpation, non-tender and non-distended Extremity no clubbing, cyanosis or edema Skin no rashes or lesions noted General Skin Exam: no breakdown Neuro CN's II-XII intact bilaterally, no focal motor deficits and no sensory deficits noted Neuro Narrative: Patient is alert, he is confused, he does not appear agitated Sensorium / Orientation: awake, alert and oriented to person Speech: speech normal Psych Psych Narrative: Patient exhibits cognitive impairment, he is alert and does not carry on a conversation but says a few words which do not make sense. Assessment & Plan Assessment/Plan (1) Intertrochanteric fracture of left femur: (2) Closed fracture of left hip: PLAN: Plan 1. 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 Patient's white blood cell count is slightly high #4 hyperkalemia-resolved at this time #5 chronic kidney disease stage IV-patient's IV fluids will be continued at 75/h-I have switched to D5 half-normal due to increased sodium #6 ptjhazat-hgaoeuyz-kdjzpyuupxe care, management, recovery, and prognosis #7 slightly low platelet count-no treatment necessary #8 acute anemia-secondary to acute blood loss from left hip fracture-hemoglobin was 8.6 today and appears stable #9 cardiomyopathy by history-patient's echocardiogram showed an ejection fraction of 55% #10 subacute occipital infarction-patient is on a baby aspirin a day Total clinical time spent by myself addressing the patient's medical issues, reviewing all of his data, and collaborating with the patient's care team: 35 minutes Charges/Coding Visit Charges Inpatient E&M: 01834 Subs Hosp L2 NIHSS NIHSS Nursing Documentation NIHSS Nursing Documentation: NIHSS: Ischemic Stroke/TIA Start: 04/26/25 10:12 Freq: Q4H Status: Complete Protocol: Activity Type Activity Date Activity User E-sign Co-sign Detail Recorded Client Recorded Date Recorded By Document 04/29/25 12:00 SS [id number] 04/29/25 12:36 SS 04/29/25 12:00 NIH Stroke Scale [NIHSS] A score of 0 is normal or asymptomatic . Total possible score is 42. Inpatient: RN or Physician to activate a stroke alert for onset of new stroke symptoms or with NIHSS increase >/= 3 points. Following change in neurological status, NIHSS will be performed per physician order or more frequently PRN. -1a. Level of Consciousness 0 - Alert; keenly responsive -1b. LOC Questions 2 - Answers NEITHER question correctly -1c. LOC Commands 0 - Performs BOTH tasks correctly -2. Best Gaze 0 - Normal -3. Visual 0 - No visual loss -4. Facial Palsy 0 - Normal symmetrical movements -5a. Left Arm 2 - Some effort against gravity; -5b. Right Arm 1 - Drift; arm drifts downward but doesn?t hit the bed -6a. Left Leg UN - Amputation or joint fusion, explain : -'UN' explanation Recent hip fx -6b. Right Leg 2 - Some effort against gravity; -7. Limb Ataxia UN - Amputation or joint fusion, explain -'UN' explanation LFT HIP FX, PT NOT COOPERATING BUE ASESSMENT -8. Sensory 0 - Normal; no sensory loss -9. Best Language 2 - Severe aphasia; -10. Dysarthria 1 = Mild-to- moderate dysarthria; -11. Extinction and Inattention 0 - No abnormality -Total 10 Query Text:A score of 0 is normal or asymptomatic. Total possible score is 42 . ED: Notify Physician for NIHSS increase by > / = 3 points. Inpatient: RN or Physician to activate a stroke alert for NIHSS increase of > / = 3 points. Coma Scale [Assess] -Eye Opening Spontaneous -Motor Obeys Commands -Verbal Confused [Total] -Coma Scale Total 14
[2025-04-29] MEDS: Dext 5%-0.45% NS 1,000 ML 75 ML IV (21:16)
[2025-04-29] MEDS: Doxazosin 1 MG Tablet PO (22:45)
[2025-04-29] MEDS: Atorvastatin Calcium 80 MG Tablet PO (22:45)
[2025-04-29] MEDS: Donepezil HCl 10 MG Tablet PO (22:45)
[2025-04-29 23:20] LABS: Bedside Glucose 142 mg/dL (74-106)
[2025-04-30] VITALS (8 sets, daily range): BP systolic 116–160; BP diastolic 56–85; PULSE 73–96; RESP 18–20; TEMP 36.2–37; O2SAT 77–97; BMI 25.3; BMI 25.6
[2025-04-30] MEDS: 0.9% Saline Lock 10 ML Syringe IV ×3 (00:49→20:31)
[2025-04-30] MEDS: Morphine 2 MG/ML Syringe IV ×2 (00:49→04:51)
[2025-04-30 05:51] LABS: Anion Gap 10 (5-15); BUN 61 mg/dL (4-19); BUN/Creat Ratio 31.5 RATIO (10-20); Calcium,Total 8.4 mg/dL (7.6-11.0); Carbon Dioxide 16.4 mmol/L (21.0-32.0); Chloride 126 mmol/L (98-108); Creatinine, Serum 1.93 mg/dL (0.70-1.20); EST Glomerular Filtration Rate 34 (>60); Estimated Creatinine Clearance 26.17 ml/min (50-250); Glucose 121 mg/dL (70-99); Potassium 4.5 mmol/L (3.3-5.1); Sodium Level 153 mmol/L (133-145)
[2025-04-30] MEDS: Enoxaparin 30 MG/0.3 ML Syringe SC (06:29)
[2025-04-30] MEDS: oxyCODONE 5 MG Tablet PO (06:29)
[2025-04-30] MEDS: Acetaminophen 500 MG Tablet 1000 MG PO ×3 (06:29→21:08)
[2025-04-30 06:52] LABS: Bedside Glucose 110 mg/dL (74-106)
[2025-04-30] MEDS: Memantine Hydrochloride 10 MG Tablet PO ×2 (08:47→21:08)
[2025-04-30] MEDS: Losartan Potassium 50 MG Tablet PO (08:47)
[2025-04-30] MEDS: Aspirin 81 MG TAB.CHEW PO (08:47)
[2025-04-30] MEDS: PARoxetine 10 MG Tablet PO (08:47)
[2025-04-30] MEDS: Senna/Docusate Sodium 1 Tablet 2 TABLET PO ×2 (08:48→21:08)
[2025-04-30] MEDS: Allopurinol 300 MG Tablet PO (08:48)
--- NOTE | 2025-04-30 09:33 | CASEMGMT ---
Discharge Planning [facility] has accepted and will submit for precert. SW updated. Susannah Solis DC Planning Asst.
[2025-04-30] MEDS: Dext 5%-0.45% NS 1,000 ML 75 ML IV (11:07)
--- NOTE | 2025-04-30 11:23 | CASEMGMT ---
PER notified patient's Annemarie that [facility] has accepted patient. PER explained that we will have to wait the insurance to approve or deny. PER let Annemarie know someone will let her know as soon as we hear. Annemarie thanked PER for the update. Plan: d/c to [facility] pending insurance approval. Nida MONDRAGNO
[2025-04-30 11:49] LABS: Bedside Glucose 127 mg/dL (74-106)
--- NOTE | 2025-04-30 12:33 | CASEMGMT ---
SW completed a PASRR in [facility] system. Plan: [facility] pending insurance approval. Nida MONDRAGON
--- NOTE | 2025-04-30 14:28 | CASEMGMT ---
PER placed a green sheet on patient's chart in the event patient is approved by insurance to go to [facility]. Plan: d/c to [facility] pending insurance approval. Nida MONDRAGON
[2025-04-30 16:49] LABS: Bedside Glucose 131 mg/dL (74-106)
--- NOTE | 2025-04-30 18:59 | PN.HOSP_ITS ---
Reason for Visit Reason for Visit: Diagnoses Fracture of unspecified part of neck of left femur, initial encounter for closed fracture (04/23/25) Displaced intertrochanteric fracture of left femur, initial encounter for closed fracture (04/23/25) Unspecified fall, initial encounter (04/23/25) Subjective Subjective Patient was seen and examined today, his sodium is 153 today and his chloride remains high, I have decided to increase the patient's IV fluids to 100 an hour and recheck his BMP tomorrow. Patient is still confused and pulling off his oxygen, his tries to replace it but he gets frustrated and pulls it off again. I have elected to take the patient off telemetry at this time. We are waiting pre-CERT for a correction facility. Objective Data Objective Data Vital Signs: Vital Signs Temp Pulse Resp BP Pulse Ox O2 Del Method O2 Flow Rate 97.8 F 79 18 116/85 H 92 Nasal Cannula 3 04/30/25 13:58 04/30/25 13:58 04/30/25 13:58 04/30/25 13:58 04/30/25 13:59 04/30/25 14:00 04/30/25 14:00 Oxygen Flow Rate (L/min) 3 Oxygen Delivery Method Nasal Cannula Weight: 74.1 kg Body Mass Index (BMI) 25.6 Intake & Output: Intake and Output for Last 24 Hours 04/28/25 04/29/25 04/30/25 23:59 23:59 23:59 Intake Total 1120 / 1120 2186.25 / 2186.25 1240 / 1240 Output Total 1999 / 1999 1600 / 1600 900 / 900 Balance -880 / -880 586.25 / 586.25 340 / 340 Lab / Micro Data 04/28/25 06:39 05/01/25 04:05 Labs: Laboratory Results - last 24 hr 04/29/25 23:00: POC Glucose 142 H 04/30/25 04:32: Sodium 153 H, Potassium 4.5, Chloride 126 H, Carbon Dioxide 16.4 L, Anion Gap 10, BUN 61 H, Creatinine 1.93 H, Estim Creat Clear Calc 26.17 L, E st GFR (MDRD) Non-Af 34 L, BUN/Creatinine Ratio 31.5 H, Glucose 121 H, Calcium 8.4 04/30/25 06:28: POC Glucose 110 H 04/30/25 11:06: POC Glucose 127 H 04/30/25 16:30: POC Glucose 131 H Physical Exam Narrative alert, no apparent distress, average body habitus and healthy appearing General Appearance: cooperative, well kempt and well developed Orientation / Consciousness: awake and oriented to person HEENT normocephalic, head/scalp atraumatic and moist oral mucous membranes Head and Scalp: normocephalic Eyes PERRL, EOMs intact bilaterally and conjunctivae normal Neck supple, no JVD, thyroid normal and no carotid bruits General: trachea midline Resp normal respiratory effort, no retractions, no use of accessory muscles and clear to auscultation bilaterally Auscultation: Negative for rales, rhonchi or wheezes Cardio regular rate, regular rhythm, S1 normal heart sound, S2 normal heart sound, no murmurs, no rub and no gallops GI normal to inspection, nondistended, normoactive bowel sounds, soft to palpation, non-tender and non-distended Extremity no clubbing, cyanosis or edema Skin no rashes or lesions noted General Skin Exam: no breakdown Neuro CN's II-XII intact bilaterally, no focal motor deficits and no sensory deficits noted Neuro Narrative: Patient is alert, he is confused, he does not appear agitated Sensorium / Orientation: awake, alert and oriented to person Speech: speech normal Psych Psych Narrative: Patient exhibits cognitive impairment, he is alert and does not carry on a conversation but says a few words which do not make sense. Assessment & Plan Assessment/Plan (1) Intertrochanteric fracture of left femur: (2) Closed fracture of left hip: PLAN: Plan 1. 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 Patient's white blood cell count is slightly high #4 hyperkalemia-resolved at this time #5 chronic kidney disease stage IV-patient's IV fluids will be continued, I have decided to increase the IV rate to 100 cc/h, patient is on D5 half-normal saline #6 mhmwaugi-japhayrd-bmhizhwfqpl care, management, recovery, and prognosis #7 slightly low platelet count-no treatment necessary #8 acute anemia-secondary to acute blood loss from left hip fracture-hemoglobin was 8.6 today and appears stable #9 cardiomyopathy by history-patient's echocardiogram showed an ejection fraction of 55% #10 subacute occipital infarction-patient is on a baby aspirin a day Total clinical time spent by myself addressing the patient's medical issues, reviewing all of his data, and collaborating with the patient's care team: 35 minutes Charges/Coding Visit Charges Inpatient E&M: 83962 Subs Hosp L2 NIHSS NIHSS Nursing Documentation NIHSS Nursing Documentation: NIHSS: Ischemic Stroke/TIA Start: 04/26/25 10:12 Freq: Q4H Status: Complete Protocol: Activity Type Activity Date Activity User E-sign Co-sign Detail Recorded Client Recorded Date Recorded By Document 04/29/25 12:00 [id number] 04/29/25 12:36 SS 04/29/25 12:00 NIH Stroke Scale [NIHSS] A score of 0 is normal or asymptomatic . Total possible score is 42. Inpatient: RN or Physician to activate a stroke alert for onset of new stroke symptoms or with NIHSS increase >/= 3 points. Following change in neurological status, NIHSS will be performed per physician order or more frequently PRN. -1a. Level of Consciousness 0 - Alert; keenly responsive -1b. LOC Questions 2 - Answers NEITHER question correctly -1c. LOC Commands 0 - Performs BOTH tasks correctly -2. Best Gaze 0 - Normal -3. Visual 0 - No visual loss -4. Facial Palsy 0 - Normal symmetrical movements -5a. Left Arm 2 - Some effort against gravity; -5b. Right Arm 1 - Drift; arm drifts downward but doesn?t hit the bed -6a. Left Leg UN - Amputation or joint fusion, explain : -'UN' explanation Recent hip fx -6b. Right Leg 2 - Some effort against gravity; -7. Limb Ataxia UN - Amputation or joint fusion, explain -'UN' explanation LFT HIP FX, PT NOT COOPERATING BUE ASESSMENT -8. Sensory 0 - Normal; no sensory loss -9. Best Language 2 - Severe aphasia; -10. Dysarthria 1 = Mild-to- moderate dysarthria; -11. Extinction and Inattention 0 - No abnormality -Total 10 Query Text:A score of 0 is normal or asymptomatic. Total possible score is 42 . ED: Notify Physician for NIHSS increase by > / = 3 points. Inpatient: RN or Physician to activate a stroke alert for NIHSS increase of > / = 3 points. Coma Scale [Assess] -Eye Opening Spontaneous -Motor Obeys Commands -Verbal Confused [Total] -Coma Scale Total 14
[2025-04-30] MEDS: Atorvastatin Calcium 80 MG Tablet PO (21:07)
[2025-04-30] MEDS: Donepezil HCl 10 MG Tablet PO (21:07)
[2025-04-30] MEDS: Doxazosin 1 MG Tablet PO (21:08)
[2025-04-30] MEDS: Dext 5%-0.45% NS 1,000 ML 100 ML IV (21:22)
[2025-04-30 22:11] LABS: Bedside Glucose 114 mg/dL (74-106)
[2025-05-01] VITALS (12 sets, daily range): BP systolic 136–162; BP diastolic 69–98; PULSE 85–107; RESP 18–40; TEMP 36.6–37.1; O2SAT 91–97; BMI 25.8
[2025-05-01] MEDS: traMADol 50 MG Tablet PO ×2 (02:16→17:49)
[2025-05-01] MEDS: Acetaminophen 500 MG Tablet 1000 MG PO ×3 (05:12→22:04)
[2025-05-01] MEDS: Enoxaparin 30 MG/0.3 ML Syringe SC (05:13)
[2025-05-01] MEDS: Dext 5%-0.45% NS 1,000 ML 100 ML IV ×2 (06:28→16:56)
[2025-05-01 06:40] LABS: Anion Gap 9 (5-15); BUN 58 mg/dL (4-19); BUN/Creat Ratio 31.8 RATIO (10-20); Calcium,Total 8.1 mg/dL (7.6-11.0); Carbon Dioxide 15.3 mmol/L (21.0-32.0); Chloride 127 mmol/L (98-108); Creatinine, Serum 1.83 mg/dL (0.70-1.20); EST Glomerular Filtration Rate 36 (>60); Glucose 142 mg/dL (70-99); Potassium 4.5 mmol/L (3.3-5.1); Sodium Level 151 mmol/L (133-145)
[2025-05-01 07:01] LABS: Bedside Glucose 132 mg/dL (74-106)
[2025-05-01] MEDS: PARoxetine 10 MG Tablet PO (08:42)
[2025-05-01] MEDS: Losartan Potassium 50 MG Tablet PO (08:42)
[2025-05-01] MEDS: Memantine Hydrochloride 10 MG Tablet PO ×2 (08:42→22:04)
[2025-05-01] MEDS: Allopurinol 300 MG Tablet PO (08:43)
[2025-05-01] MEDS: Aspirin 81 MG TAB.CHEW PO (08:43)
[2025-05-01] MEDS: Senna/Docusate Sodium 1 Tablet 2 TABLET PO (08:43)
[2025-05-01] MEDS: Ensure Plus High Protein 120 ML LIQUID PO ×3 (08:44→16:56)
[2025-05-01] MEDS: Albuterol 2.5 MG/3 ML VIAL.NEB. INHALATION ×3 (11:46→23:13)
[2025-05-01 12:17] LABS: Bedside Glucose 120 mg/dL (74-106)
[2025-05-01 17:24] LABS: Bedside Glucose 121 mg/dL (74-106)
--- NOTE | 2025-05-01 17:28 | PN.HOSP_ITS ---
Reason for Visit Reason for Visit: Diagnoses Fracture of unspecified part of neck of left femur, initial encounter for closed fracture (04/23/25) Displaced intertrochanteric fracture of left femur, initial encounter for closed fracture (04/23/25) Unspecified fall, initial encounter (04/23/25) Subjective Subjective Patient was seen and examined today, I talked briefly with the , she would like him to receive medication for his agitation. Patient has been pulling his oxygen off today, he is on 2 L. I placed the patient on Seroquel 12.5 mg twice a day. Patient's sodium level was notably improved, I have decided to reduce the patient's IV rate to 75 an hour. I will get a repeat BMP tomorrow Objective Data Objective Data Vital Signs: Vital Signs Temp Pulse Resp BP Pulse Ox O2 Del Method O2 Flow Rate 97.8 F 99 22 H 147/98 H 91 Nasal Cannula 2 05/01/25 14:49 05/01/25 14:49 05/01/25 14:49 05/01/25 14:49 05/01/25 14:49 05/01/25 14:49 05/01/25 14:49 Oxygen Flow Rate (L/min) 2 Oxygen Delivery Method Nasal Cannula Weight: 74.7 kg Body Mass Index (BMI) 25.8 Intake & Output: Intake and Output for Last 24 Hours 04/29/25 04/30/25 05/01/25 23:59 23:59 23:59 Intake Total 2186.25 / 2186.25 2023.33 / 2023.33 2628.33 / 2628.33 Output Total 1600 / 1600 1300 / 1300 775 / 775 Balance 586.25 / 586.25 723.33 / 723.33 1853.33 / 1853.33 Lab / Micro Data 04/28/25 06:39 05/01/25 04:05 Labs: Laboratory Results - last 24 hr 04/30/25 21:16: POC Glucose 114 H 05/01/25 04:05: Sodium 151 H, Potassium 4.5, Chloride 127 H*, Carbon Dioxide 15.3 L, Anion Gap 9, BUN 58 H, Creatinine 1.83 H, Estim Creat Clear Calc 27.60 L , Est GFR (MDRD) Non-Af 36 L, BUN/Creatinine Ratio 31.8 H, Glucose 142 H, Calcium 8.1 05/01/25 06:23: POC Glucose 132 H 05/01/25 11:34: POC Glucose 120 H 05/01/25 16:54: POC Glucose 121 H Physical Exam Narrative alert, no apparent distress, average body habitus and healthy appearing General Appearance: cooperative, well kempt and well developed Orientation / Consciousness: awake and oriented to person HEENT normocephalic, head/scalp atraumatic and moist oral mucous membranes Head and Scalp: normocephalic Eyes PERRL, EOMs intact bilaterally and conjunctivae normal Neck supple, no JVD, thyroid normal and no carotid bruits General: trachea midline Resp normal respiratory effort, no retractions, no use of accessory muscles and clear to auscultation bilaterally Auscultation: Negative for rales, rhonchi or wheezes Cardio regular rate, regular rhythm, S1 normal heart sound, S2 normal heart sound, no murmurs, no rub and no gallops GI normal to inspection, nondistended, normoactive bowel sounds, soft to palpation, non-tender and non-distended Extremity no clubbing, cyanosis or edema Skin no rashes or lesions noted General Skin Exam: no breakdown Neuro CN's II-XII intact bilaterally, no focal motor deficits and no sensory deficits noted Neuro Narrative: Patient is alert, he is confused, he does not appear agitated Sensorium / Orientation: awake, alert and oriented to person Speech: speech normal Psych Psych Narrative: Patient exhibits cognitive impairment, he is alert and does not carry on a conversation but says a few words which do not make sense. Assessment & Plan Assessment/Plan (1) Intertrochanteric fracture of left femur: (2) Closed fracture of left hip: PLAN: Plan 1. 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 Patient's white blood cell count is slightly high #4 hyperkalemia-resolved at this time #5 chronic kidney disease stage IV-patient's IV fluids will be continued, I have decided to decrease his IV rate to 75 cc/h, patient is still on D5 half-normal saline #6 bgaiunci-qwzlnvas-couhqyspeuy care, management, recovery, and prognosis #7 slightly low platelet count-no treatment necessary #8 acute anemia-secondary to acute blood loss from left hip fracture-hemoglobin was 8.6 today and appears stable #9 cardiomyopathy by history-patient's echocardiogram showed an ejection fraction of 55% #10 subacute occipital infarction-patient is on a baby aspirin a day #11 hypernatremia-patient's IV rate will be reduced to 75/h, he is on D5 half- normal saline, BMP will be rechecked tomorrow Total clinical time spent by myself addressing the patient's medical issues, reviewing all of his data, and collaborating with the patient's care team: 35 minutes Charges/Coding Visit Charges Inpatient E&M: 32674 Subs Hosp L2 NIHSS NIHSS Nursing Documentation NIHSS Nursing Documentation: NIHSS: Ischemic Stroke/TIA Start: 04/26/25 10:12 Freq: Q4H Status: Complete Protocol: Activity Type Activity Date Activity User E-sign Co-sign Detail Recorded Client Recorded Date Recorded By Document 04/29/25 12:00 SS [id number] 04/29/25 12:36 SS 04/29/25 12:00 NIH Stroke Scale [NIHSS] A score of 0 is normal or asymptomatic . Total possible score is 42. Inpatient: RN or Physician to activate a stroke alert for onset of new stroke symptoms or with NIHSS increase >/= 3 points. Following change in neurological status, NIHSS will be performed per physician order or more frequently PRN. -1a. Level of Consciousness 0 - Alert; keenly responsive -1b. LOC Questions 2 - Answers NEITHER question correctly -1c. LOC Commands 0 - Performs BOTH tasks correctly -2. Best Gaze 0 - Normal -3. Visual 0 - No visual loss -4. Facial Palsy 0 - Normal symmetrical movements -5a. Left Arm 2 - Some effort against gravity; -5b. Right Arm 1 - Drift; arm drifts downward but doesn?t hit the bed -6a. Left Leg UN - Amputation or joint fusion, explain : -'UN' explanation Recent hip fx -6b. Right Leg 2 - Some effort against gravity; -7. Limb Ataxia UN - Amputation or joint fusion, explain -'UN' explanation LFT HIP FX, PT NOT COOPERATING BUE ASESSMENT -8. Sensory 0 - Normal; no sensory loss -9. Best Language 2 - Severe aphasia; -10. Dysarthria 1 = Mild-to- moderate dysarthria; -11. Extinction and Inattention 0 - No abnormality -Total 10 Query Text:A score of 0 is normal or asymptomatic. Total possible score is 42 . ED: Notify Physician for NIHSS increase by > / = 3 points. Inpatient: RN or Physician to activate a stroke alert for NIHSS increase of > / = 3 points. Coma Scale [Assess] -Eye Opening Spontaneous -Motor Obeys Commands -Verbal Confused [Total] -Coma Scale Total 14
[2025-05-01] MEDS: QUEtiapine 25 MG Tablet 12.5 MG PO (22:03)
[2025-05-01] MEDS: Donepezil HCl 10 MG Tablet PO (22:03)
[2025-05-01] MEDS: Atorvastatin Calcium 80 MG Tablet PO (22:04)
[2025-05-01] MEDS: Doxazosin 1 MG Tablet PO (22:08)
[2025-05-01 22:31] LABS: Bedside Glucose 129 mg/dL (74-106)
[2025-05-01 23:46] LABS: Base Excess -8 mmol/L (-2 to +2); Bicarbonate 16.6 mmol/L (22-26); Blood Gas Specimen Type ART; Mode Not entered; O2 Delivery Device Cannula; PO2 79 mmHG (75-100); SITE R Radial; SO2 96 % (95-99); Total Carbon Dioxide 17 mmol/L; pCO2 26.8 mmHg (35-45)
--- NOTE | 2025-05-01 23:57 | PCM.HOSP.N ---
Hospitalist Note Called secondary to increased work of breathing with respiratory rate between 30 and 40. Requiring more oxygen up to 4 L with expiratory wheezes. ABG was just performed at 2342 and showed pH of 7.40PCO2 of 26.8 and pO2 of 79 on 4 L nasal cannula. Will check BNP, CBC, and stat chest x-ray. Start aerosols. If workup is unremarkable, may need to consider DVT with hip surgery. Would need to discuss with neurology if anticoagulation is needed due to recent stroke.
--- NOTE | 2025-05-01 23:59 | RAD_ITS ---
PROCEDURE: CHEST 1 VIEW (PORTABLE) 05/01/2025 REASON FOR EXAM: SOB Shortness of breath TECHNIQUE: Frontal view of the chest. COMPARISON: 04/23/2025 FINDINGS: Hardware: Metallic clips left upper quadrant abdomen. Postsurgical changes of the cervical spine. Heart: Heart normal size. Mediastinal silhouette appears stable. Lungs: Chronic elevation left hemidiaphragm. Chronic linear atelectasis left mid to lower lung zone. Mild patchy right lung atelectasis versus infiltrate. No pneumothorax. Bones: Osseous structures grossly appear intact. Other: Low lung volume RAD/Chest 1 View (Portable) IMPRESSION: 1. Low lung volume 2. Chronic elevation left hemidiaphragm with mild linear atelectasis left mid to lower lung zone. 3. Mild patchy right lung atelectasis versus infiltrate Reading [facility]
[2025-05-02] VITALS (14 sets, daily range): BP systolic 144–163; BP diastolic 70–95; PULSE 66–116; RESP 20–40; TEMP 36.9–37.3; O2SAT 91–97; BMI 25.8; BMI 25.7
[2025-05-02 01:18] LABS: Absolute Lymphocyte Count 0.28 X10^3/uL (0.83-4.51); Absolute Neutrophil Count 11.6 X10^3/uL (2.0-7.7); Basophil# 0.01 X10^3/uL; Basophil% 0.1 % (0-1); Eosinophil# 0.02 X10^3/uL; Eosinophils% 0.2 % (0-5); Hematocrit 21.3 % (40-54); Hemoglobin 7.2 g/dL (13.0-16.5); Lymphocyte # 0.28 X10^3/ul (0.83-4.51); Lymphocyte % 2.2 % (19-41); Mean Corp Hgb Conc 33.8 g/dL (32-36); Mean Corpuscular Hgb 32.4 pg (27.0-32.0); Mean Corpuscular Volume 95.9 fL (80-94); Mean Platelet Vol. 10.8 fl (6.2-12.0); Monocyte# 0.57 X10^3/uL; Monocyte% 4.5 % (0-10); Neutrophil # 11.57 X10^3/uL (2.7-7.7); POSITIVE DIFFERENTIAL YES; Platelet Count 208 K/mm3 (150-450); RBC Distribution Width CV 16.9 % (11.6-14.6); RBC Distribution Width SD 57.7 fl (35.1-43.9); Red Blood Count 2.22 M/mm3 (4.6-6.2); White Blood Count 12.6 K/mm3 (4.4-11.0)
[2025-05-02 03:05] LABS: Pro- Brain NATRIURETIC PEPTIDE 15323 pg/mL (<=1800)
[2025-05-02] MEDS: Ipratropium/Albuterol Sulfate 3 ML AMPUL.NEB INHALATION ×5 (03:42→23:30)
[2025-05-02] MEDS: HYDROmorphone 0.5 MG/0.5 ML SYRINGE IV ×3 (03:56→23:07)
[2025-05-02] MEDS: Bumetanide 1 MG/4 ML Vial 2 MG IV (03:59)
[2025-05-02] MEDS: Piperacil/Tazobactam 3.375 GM in 0.9% Normal Saline (50mL MB+) 50 ML IV ×3 (05:07→21:24)
[2025-05-02] MEDS: Enoxaparin 30 MG/0.3 ML Syringe SC (05:09)
[2025-05-02 06:14] LABS: Absolute Lymphocyte Count 0.92 X10^3/uL (0.83-4.51); Absolute Neutrophil Count 10.1 X10^3/uL (2.0-7.7); Basophil# 0.01 X10^3/uL; Basophil% 0.1 % (0-1); Eosinophil# 0.05 X10^3/uL; Eosinophils% 0.4 % (0-5); Hematocrit 21.9 % (40-54); Hemoglobin 7.3 g/dL (13.0-16.5); Lymphocyte # 0.92 X10^3/ul (0.83-4.51); Lymphocyte % 7.7 % (19-41); Mean Corp Hgb Conc 33.3 g/dL (32-36); Mean Corpuscular Hgb 31.9 pg (27.0-32.0); Mean Corpuscular Volume 95.6 fL (80-94); Mean Platelet Vol. 11.3 fl (6.2-12.0); Monocyte# 0.69 X10^3/uL; Monocyte% 5.8 % (0-10); NRBC Flagged by Analyzer 4.5 % (0-5); Neutrophil # 10.12 X10^3/uL (2.7-7.7); Neutrophil % 84.8 % (47-70); Platelet Count 226 K/mm3 (150-450); RBC Distribution Width CV 16.6 % (11.6-14.6); RBC Distribution Width SD 56.1 fl (35.1-43.9); Red Blood Count 2.29 M/mm3 (4.6-6.2); White Blood Count 11.9 K/mm3 (4.4-11.0)
[2025-05-02 07:22] LABS: Bedside Glucose 95 mg/dL (74-106)
[2025-05-02 07:48] LABS: Anion Gap 12 (5-15); BUN 54 mg/dL (4-19); BUN/Creat Ratio 29.8 RATIO (10-20); Calcium,Total 8.2 mg/dL (7.6-11.0); Carbon Dioxide 15.2 mmol/L (21.0-32.0); Chloride 125 mmol/L (98-108); Creatinine, Serum 1.81 mg/dL (0.70-1.20); EST Glomerular Filtration Rate 37 (>60); Estimated Creatinine Clearance 27.91 ml/min (50-250); Glucose 106 mg/dL (70-99); Potassium 4.4 mmol/L (3.3-5.1); Sodium Level 152 mmol/L (133-145)
[2025-05-02] MEDS: PARoxetine 10 MG Tablet PO (09:58)
[2025-05-02] MEDS: Losartan Potassium 50 MG Tablet PO (09:58)
[2025-05-02] MEDS: Allopurinol 300 MG Tablet PO (09:59)
[2025-05-02] MEDS: Aspirin 81 MG TAB.CHEW PO (09:59)
[2025-05-02] MEDS: Memantine Hydrochloride 10 MG Tablet PO ×2 (10:00→21:15)
[2025-05-02] MEDS: QUEtiapine 25 MG Tablet PO ×2 (10:15→21:15)
[2025-05-02] MEDS: Furosemide 20 MG/2 ML VIAL IV ×2 (10:19→18:52)
[2025-05-02] MEDS: 0.9% Saline Lock 10 ML Syringe IV ×3 (10:19→23:08)
[2025-05-02] MEDS: Dextrose 5%-Water (1000mL Bag) 1,000 ML 60 ML IV (11:55)
[2025-05-02 12:10] LABS: Bedside Glucose 100 mg/dL (74-106)
--- NOTE | 2025-05-02 12:25 | PCM.PN.HOSP ---
Reason for Visit Reason for Visit: Diagnoses Fracture of unspecified part of neck of left femur, initial encounter for closed fracture (04/23/25) Displaced intertrochanteric fracture of left femur, initial encounter for closed fracture (04/23/25) Unspecified fall, initial encounter (04/23/25) Subjective Subjective Patient was seen and examined today, his sodium is still mildly elevated, I have elected to place him on D5 at 60 cc an hour and repeat the BMP tomorrow. Patient was evaluated by the night hospitalist who felt that the patient had pneumonia based on chest x-ray, he was placed on Zosyn, at this time I will continue the Zosyn but I am not absolutely sure he has pneumonia. He was also placed on IV Bumex but I feel the dose is too high for the patient, I have switched him to Lasix 20 mg every 12 hours IV. Patient remains confused and mildly agitated, I talked to the son who was in the room at the time my examination and told him that I would increase patient's Seroquel to see if it could provide some relief for the patient. Objective Data Objective Data Vital Signs: Vital Signs Temp Pulse Resp BP Pulse Ox O2 Del Method O2 Flow Rate 98.4 F 66 20 H 161/73 H 94 Nasal Cannula 2 05/02/25 11:58 05/02/25 11:58 05/02/25 11:58 05/02/25 11:58 05/02/25 11:58 05/02/25 11:58 05/02/25 11:58 Oxygen Flow Rate (L/min) 2 Oxygen Delivery Method Nasal Cannula Weight: 74.5 kg Body Mass Index (BMI) 25.7 Intake & Output: Intake and Output for Last 24 Hours 04/30/25 05/01/25 05/02/25 23:59 23:59 23:59 Intake Total 2023.33 / 2023.33 2830.00 / 2830.00 815 / 815 Output Total 1300 / 1300 1425 / 1425 1250 / 1250 Balance 723.33 / 723.33 1405.00 / 1405.00 -435 / -435 Lab / Micro Data 05/02/25 05:46 05/02/25 05:46 Labs: Laboratory Results - last 24 hr 05/01/25 01:10: WBC 12.6 H, RBC 2.22 L, Hgb 7.2 L, Hct 21.3 L, MCV 95.9 H, MCH 32.4 H, MCHC 33.8, RDW Std Deviation 57.7 H, RDW Coeff of Eduarda 16.9 H, Plt Count 208, MPV 10.8, Immature Gran % (Auto) 1.000 H, Neut % (Auto) 92.0 H, Lymph % (Auto) 2.2 L, [place] % (Auto) 4.5, Eos % (Auto) 0.2, Baso % (Auto) 0.1, Absolute Neuts (auto) 11.6 H, Absolute Lymphs (auto) 0.28 L, Nucleated RBC % 4.0 05/01/25 16:54: POC Glucose 121 H 05/01/25 22:02: POC Glucose 129 H 05/02/25 01:10: [place] [address] H 05/02/25 05:46: WBC 11.9 H, RBC 2.29 L, Hgb 7.3 L, Hct 21.9 L, MCV 95.6 H, MCH 31.9, MCHC 33.3, RDW Std Deviation 56.1 H, RDW Coeff of Eduarda 16.6 H, Plt Count 226, MPV 11.3, Immature Gran % (Auto) 1.200 H, Neut % (Auto) 84.8 H, Lymph % (Auto) 7.7 L, [place] % (Auto) 5.8, Eos % (Auto) 0.4, Baso % (Auto) 0.1, Absolute Neuts (auto) 10.1 H, Absolute Lymphs (auto) 0.92, Nucleated RBC % 4.5, Sodium 152 H, Potassium 4.4, Chloride 125 H, Carbon Dioxide 15.2 L, Anion Gap 12, BUN 54 H, Creatinine 1.81 H, Estim Creat Clear Calc 27.91 L, Est GFR (MDRD) Non-Af 37 L, BUN/Creatinine Ratio 29.8 H, Glucose 106 H, Calcium 8.2 05/02/25 06:43: POC Glucose 95 05/02/25 11:52: POC Glucose 100 ABG Data ABG results: ABG 05/01/25 23:42 Specimen Type ART Sample Site R Radial pH 7.40 Bicarbonate Actual 16.6 L Total CO2 17 Base Excess -8 L O2 Saturation 96 O2 % 4.0 ABG pCO2 26.8 L ABG pO2 79 Teto Test N/A O2 Delivery Device Cannula Vent Mode Not entered Radiography Diagnostic Testing: Radiology Impression Chest X-Ray 05/01/25 23:59 IMPRESSION: 1. Low lung volume 2. Chronic elevation left hemidiaphragm with mild linear atelectasis left mid to lower lung zone. 3. Mild patchy right lung atelectasis versus infiltrate Reading Location: [facility] Physical Exam Narrative alert, no apparent distress, average body habitus and healthy appearing General Appearance: cooperative, well kempt and well developed Orientation / Consciousness: awake and oriented to person HEENT normocephalic, head/scalp atraumatic and moist oral mucous membranes Head and Scalp: normocephalic Eyes PERRL, EOMs intact bilaterally and conjunctivae normal Neck supple, no JVD, thyroid normal and no carotid bruits General: trachea midline Resp normal respiratory effort, no retractions, no use of accessory muscles and clear to auscultation bilaterally Auscultation: Negative for rales, rhonchi or wheezes Cardio regular rate, regular rhythm, S1 normal heart sound, S2 normal heart sound, no murmurs, no rub and no gallops GI normal to inspection, nondistended, normoactive bowel sounds, soft to palpation, non-tender and non-distended Extremity no clubbing, cyanosis or edema Skin no rashes or lesions noted General Skin Exam: no breakdown Neuro CN's II-XII intact bilaterally, no focal motor deficits and no sensory deficits noted Neuro Narrative: Patient is alert, he is confused, he does not appear agitated Sensorium / Orientation: awake, alert and oriented to person Speech: speech normal Psych Psych Narrative: Patient exhibits cognitive impairment, he is alert and does not carry on a conversation but says a few words which do not make sense. Assessment & Plan Assessment/Plan (1) Intertrochanteric fracture of left femur: (2) Closed fracture of left hip: PLAN: Plan 1. 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 Patient's white blood cell count is slightly high #4 hyperkalemia-resolved at this time #5 chronic kidney disease stage IV-patient's IV fluids will be continued, I have decided to decrease his IV rate to 75 cc/h, patient is still on D5 half-normal saline #6 siqebgyk-xxjzrxlx-esghqddleoc care, management, recovery, and prognosis #7 slightly low platelet count-no treatment necessary #8 acute anemia-secondary to acute blood loss from left hip fracture-hemoglobin was 8.6 today and appears stable #9 cardiomyopathy by history-patient's echocardiogram showed an ejection fraction of 55% #10 subacute occipital infarction-patient is on a baby aspirin a day #11 hypernatremia-patient is on D5W at 60 an hour, BMP will be rechecked tomorrow #12 pneumonia versus possible CHF-patient remains on Zosyn and IV Lasix for now, I would reevaluate him tomorrow Total clinical time spent by myself addressing the patient's medical issues, reviewing all of his data, and collaborating with the patient's care team: 35 minutes Charges/Coding Visit Charges Inpatient E&M: 85561 Subs Hosp L2 NIHSS NIHSS Nursing Documentation NIHSS Nursing Documentation: NIHSS: Ischemic Stroke/TIA Start: 04/26/25 10:12 Freq: Q4H Status: Complete Protocol: Activity Type Activity Date Activity User E-sign Co-sign Detail Recorded Client Recorded Date Recorded By Document 04/29/25 12:00 [id number] 04/29/25 12:36 04/29/25 12:00 NIH Stroke Scale [NIHSS] A score of 0 is normal or asymptomatic . Total possible score is 42. Inpatient: RN or Physician to activate a stroke alert for onset of new stroke symptoms or with NIHSS increase >/= 3 points. Following change in neurological status, NIHSS will be performed per physician order or more frequently PRN. -1a. Level of Consciousness 0 - Alert; keenly responsive -1b. LOC Questions 2 - Answers NEITHER question correctly -1c. LOC Commands 0 - Performs BOTH tasks correctly -2. Best Gaze 0 - Normal -3. Visual 0 - No visual loss -4. Facial Palsy 0 - Normal symmetrical movements -5a. Left Arm 2 - Some effort against gravity; -5b. Right Arm 1 - Drift; arm drifts downward but doesn?t hit the bed -6a. Left Leg UN - Amputation or joint fusion, explain : -'UN' explanation Recent hip fx -6b. Right Leg 2 - Some effort against gravity; -7. Limb Ataxia UN - Amputation or joint fusion, explain -'UN' explanation LFT HIP FX, PT NOT COOPERATING BUE ASESSMENT -8. Sensory 0 - Normal; no sensory loss -9. Best Language 2 - Severe aphasia; -10. Dysarthria 1 = Mild-to- moderate dysarthria; -11. Extinction and Inattention 0 - No abnormality -Total 10 Query Text:A score of 0 is normal or asymptomatic. Total possible score is 42 . ED: Notify Physician for NIHSS increase by > / = 3 points. Inpatient: RN or Physician to activate a stroke alert for NIHSS increase of > / = 3 points. Coma Scale [Assess] -Eye Opening Spontaneous -Motor Obeys Commands -Verbal Confused [Total] -Coma Scale Total 14
[2025-05-02 12:27] LABS: Anion Gap 10 (5-15); BUN 56 mg/dL (4-19); BUN/Creat Ratio 28.4 RATIO (10-20); Calcium,Total 8.2 mg/dL (7.6-11.0); Chloride 124 mmol/L (98-108); Creatinine, Serum 1.97 mg/dL (0.70-1.20); EST Glomerular Filtration Rate 33 (>60); Estimated Creatinine Clearance 25.64 ml/min (50-250); Glucose 107 mg/dL (70-99); Potassium 4.7 mmol/L (3.3-5.1); Sodium Level 151 mmol/L (133-145)
[2025-05-02] MEDS: Acetaminophen 500 MG Tablet 1000 MG PO ×2 (15:02→21:16)
[2025-05-02 17:25] LABS: Bedside Glucose 122 mg/dL (74-106)
--- NOTE | 2025-05-02 20:41 | EKG12_ITS ---
Test Reason : cp Blood Pressure : */* mmHG Vent. Rate : 86 BPM Atrial Rate : 86 BPM P-R Int : 144 ms QRS Dur : 120 ms QT Int : 402 ms P-R-T Axes : 30 -11 136 degrees QTcB Int : 481 ms Normal sinus rhythm with sinus arrhythmia Cannot rule out Anterior infarct (cited on or before 29-Apr-2025) ST & T wave abnormality, consider lateral ischemia Abnormal ECG Confirmed by NATALIO MALCOLM, CHERRY ([id number]), legal editor ELGIN ROJO ([id number]) on 05/04/2025 8:26:08 AM Referred By: Confirmed By: CHERRY LANCE MD
[2025-05-02] MEDS: Donepezil HCl 10 MG Tablet PO (21:15)
[2025-05-02] MEDS: Atorvastatin Calcium 80 MG Tablet PO (21:16)
[2025-05-02] MEDS: Doxazosin 1 MG Tablet PO (21:17)
[2025-05-02 21:43] LABS: Bedside Glucose 107 mg/dL (74-106)
[2025-05-03] VITALS (11 sets, daily range): BP systolic 110–151; BP diastolic 54–83; PULSE 70–101; RESP 18–28; TEMP 37–37.4; O2SAT 92–100; BMI 25.4
[2025-05-03] MEDS: HYDROmorphone 0.5 MG/0.5 ML SYRINGE IV ×5 (03:11→23:55)
[2025-05-03] MEDS: Dextrose 5%-Water (1000mL Bag) 1,000 ML 60 ML IV ×2 (04:46→20:07)
[2025-05-03] MEDS: Albuterol 2.5 MG/3 ML VIAL.NEB. INHALATION (05:12)
[2025-05-03 06:05] LABS: Absolute Lymphocyte Count 1.79 X10^3/uL (0.83-4.51); Basophil# 0.03 X10^3/uL; Basophil% 0.2 % (0-1); Eosinophil# 0.44 X10^3/uL; Eosinophils% 3.1 % (0-5); Hematocrit 24.9 % (40-54); Hemoglobin 8.4 g/dL (13.0-16.5); Lymphocyte # 1.79 X10^3/ul (0.83-4.51); Lymphocyte % 12.7 % (19-41); Mean Corp Hgb Conc 33.7 g/dL (32-36); Mean Corpuscular Hgb 32.6 pg (27.0-32.0); Mean Corpuscular Volume 96.5 fL (80-94); Mean Platelet Vol. 12.4 fl (6.2-12.0); Monocyte# 0.73 X10^3/uL; Monocyte% 5.2 % (0-10); NRBC Flagged by Analyzer 3.9 % (0-5); Neutrophil # 11.01 X10^3/uL (2.7-7.7); Neutrophil % 77.9 % (47-70); Platelet Count 295 K/mm3 (150-450); RBC Distribution Width CV 17.4 % (11.6-14.6); RBC Distribution Width SD 56.5 fl (35.1-43.9); Red Blood Count 2.58 M/mm3 (4.6-6.2); White Blood Count 14.1 K/mm3 (4.4-11.0)
[2025-05-03] MEDS: Piperacil/Tazobactam 3.375 GM in 0.9% Normal Saline (50mL MB+) 50 ML IV ×3 (06:26→22:01)
[2025-05-03] MEDS: Enoxaparin 30 MG/0.3 ML Syringe SC (06:28)
[2025-05-03 06:30] LABS: Anion Gap 13 (5-15); BUN 56 mg/dL (4-19); BUN/Creat Ratio 24.8 RATIO (10-20); Calcium,Total 8.4 mg/dL (7.6-11.0); Carbon Dioxide 18.5 mmol/L (21.0-32.0); Chloride 118 mmol/L (98-108); Creatinine, Serum 2.27 mg/dL (0.70-1.20); EST Glomerular Filtration Rate 28 (>60); Estimated Creatinine Clearance 22.25 ml/min (50-250); Glucose 112 mg/dL (70-99); Potassium 4.2 mmol/L (3.3-5.1); Sodium Level 150 mmol/L (133-145)
[2025-05-03] MEDS: Ipratropium/Albuterol Sulfate 3 ML AMPUL.NEB INHALATION ×2 (07:42→11:13)
[2025-05-03] MEDS: 0.9% Saline Lock 10 ML Syringe IV ×2 (07:46→14:28)
--- NOTE | 2025-05-03 08:27 | CASEMGMT ---
Discharge Planning Updates sent to [facility]. Susannah Solis DC Planning Asst.
[2025-05-03] MEDS: Furosemide 20 MG/2 ML VIAL IV ×2 (09:16→17:10)
[2025-05-03] MEDS: QUEtiapine 25 MG Tablet PO ×2 (09:16→21:55)
[2025-05-03 12:32] LABS: Bedside Glucose 137 mg/dL (74-106)
[2025-05-03 17:30] LABS: Bedside Glucose 131 mg/dL (74-106)
--- NOTE | 2025-05-03 19:08 | PCM.PN.HOSP ---
Reason for Visit Reason for Visit: Diagnoses Fracture of unspecified part of neck of left femur, initial encounter for closed fracture (04/23/25) Displaced intertrochanteric fracture of left femur, initial encounter for closed fracture (04/23/25) Unspecified fall, initial encounter (04/23/25) Subjective Subjective Patient was seen and examined today, he appears to be somewhat calmer, his family is in the room and I talked to his for a short period of time. She states that the patient needs nutrition and he cannot eat she would like a PEG tube inserted. According to nursing, speech made him n.p.o. again because they were concerned he was aspirating due to a drop in his pulse ox after he ate. Objective Data Objective Data Vital Signs: Vital Signs Temp Pulse Resp BP Pulse Ox O2 Del Method O2 Flow Rate 99.0 F 94 20 H 110/83 H 97 Nasal Cannula 4 05/03/25 18:00 05/03/25 18:00 05/03/25 18:00 05/03/25 18:00 05/03/25 18:00 05/03/25 18:00 05/03/25 18:00 Oxygen Flow Rate (L/min) 4 Oxygen Delivery Method Nasal Cannula Weight: 73.6 kg Body Mass Index (BMI) 25.4 Intake & Output: Intake and Output for Last 24 Hours 05/01/25 05/02/25 05/03/25 23:59 23:59 23:59 Intake Total 2830.00 / 2830.00 865 / 865 1150 / 1150 Output Total 1425 / 1425 3400 / 4650 2950 / 2950 Balance 1405.00 / 1405.00 -2535 / -3785 -1800 / -1800 Lab / Micro Data 05/03/25 05:15 05/04/25 08:21 Labs: Laboratory Results - last 24 hr 05/02/25 21:07: POC Glucose 107 H 05/03/25 05:15: WBC 14.1 H, RBC 2.58 L, Hgb 8.4 L, Hct 24.9 L, MCV 96.5 H, MCH 32.6 H, MCHC 33.7, RDW Std Deviation 56.5 H, RDW Coeff of Eduarda 17.4 H, Plt Count 295, MPV 12.4 H, Immature Gran % (Auto) 0.900, Neut % (Auto) 77.9 H, Lymph % (Auto) 12.7 L, [place] % (Auto) 5.2, Eos % (Auto) 3.1, Baso % (Auto) 0.2, Absolute Neuts (auto) 11.0 H, Absolute Lymphs (auto) 1.79, Nucleated RBC % 3.9, Sodium 150 H, Potassium 4.2, Chloride 118 H, Carbon Dioxide 18.5 L, Anion Gap 13, BUN 56 H, Creatinine 2.27 H, Estim Creat Clear Calc 22.25 L, Est GFR (MDRD) Non-Af 28 L, BUN/Creatinine Ratio 24.8 H, Glucose 112 H, Calcium 8.4 05/03/25 12:14: POC Glucose 137 H 05/03/25 17:08: POC Glucose 131 H Physical Exam Narrative alert, no apparent distress, average body habitus and healthy appearing General Appearance: cooperative, well kempt and well developed Orientation / Consciousness: awake and oriented to person HEENT normocephalic, head/scalp atraumatic and moist oral mucous membranes Head and Scalp: normocephalic Eyes PERRL, EOMs intact bilaterally and conjunctivae normal Neck supple, no JVD, thyroid normal and no carotid bruits General: trachea midline Resp normal respiratory effort, no retractions, no use of accessory muscles and clear to auscultation bilaterally Auscultation: Negative for rales, rhonchi or wheezes Cardio regular rate, regular rhythm, S1 normal heart sound, S2 normal heart sound, no murmurs, no rub and no gallops GI normal to inspection, nondistended, normoactive bowel sounds, soft to palpation, non-tender and non-distended Extremity no clubbing, cyanosis or edema Skin no rashes or lesions noted General Skin Exam: no breakdown Neuro CN's II-XII intact bilaterally, no focal motor deficits and no sensory deficits noted Neuro Narrative: Patient is alert, he is confused, he does not appear agitated Sensorium / Orientation: awake, alert and oriented to person Speech: speech normal Psych Psych Narrative: Patient exhibits cognitive impairment, he is alert and does not carry on a conversation but says a few words which do not make sense. Assessment & Plan Assessment/Plan (1) Intertrochanteric fracture of left femur: (2) Closed fracture of left hip: PLAN: Plan 1. 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 Patient's white blood cell count is slightly high #4 hyperkalemia-resolved at this time #5 chronic kidney disease stage IV-patient's IV fluids will be continued, I have decided to decrease his IV rate to 75 cc/h, patient is still on D5 half-normal saline #6 fvuecrzv-ypfbtkwq-tjeszzydxgg care, management, recovery, and prognosis, patient is currently on Seroquel for agitation #7 slightly low platelet count-no treatment necessary #8 acute anemia-secondary to acute blood loss from left hip fracture-hemoglobin was 8.6 today and appears stable #9 cardiomyopathy by history-patient's echocardiogram showed an ejection fraction of 55% #10 subacute occipital infarction-patient is on a baby aspirin a day #11 hypernatremia-patient is on D5W at 60 an hour, BMP will be rechecked tomorrow #12 pneumonia versus possible CHF-patient remains on Zosyn and IV Lasix for now, I would reevaluate him tomorrow Total clinical time spent by myself addressing the patient's medical issues, reviewing all of his data, and collaborating with the patient's care team: 35 minutes Charges/Coding Visit Charges Inpatient E&M: 93311 Subs Hosp L2 NIHSS NIHSS Nursing Documentation NIHSS Nursing Documentation: NIHSS: Ischemic Stroke/TIA Start: 04/26/25 10:12 Freq: Q4H Status: Complete Protocol: Activity Type Activity Date Activity User E-sign Co-sign Detail Recorded Client Recorded Date Recorded By Document 04/29/25 12:00 [id number] 04/29/25 12:36 04/29/25 12:00 NIH Stroke Scale [NIHSS] A score of 0 is normal or asymptomatic . Total possible score is 42. Inpatient: RN or Physician to activate a stroke alert for onset of new stroke symptoms or with NIHSS increase >/= 3 points. Following change in neurological status, NIHSS will be performed per physician order or more frequently PRN. -1a. Level of Consciousness 0 - Alert; keenly responsive -1b. LOC Questions 2 - Answers NEITHER question correctly -1c. LOC Commands 0 - Performs BOTH tasks correctly -2. Best Gaze 0 - Normal -3. Visual 0 - No visual loss -4. Facial Palsy 0 - Normal symmetrical movements -5a. Left Arm 2 - Some effort against gravity; -5b. Right Arm 1 - Drift; arm drifts downward but doesn?t hit the bed -6a. Left Leg UN - Amputation or joint fusion, explain : -'UN' explanation Recent hip fx -6b. Right Leg 2 - Some effort against gravity; -7. Limb Ataxia UN - Amputation or joint fusion, explain -'UN' explanation LFT HIP FX, PT NOT COOPERATING BUE ASESSMENT -8. Sensory 0 - Normal; no sensory loss -9. Best Language 2 - Severe aphasia; -10. Dysarthria 1 = Mild-to- moderate dysarthria; -11. Extinction and Inattention 0 - No abnormality -Total 10 Query Text:A score of 0 is normal or asymptomatic. Total possible score is 42 . ED: Notify Physician for NIHSS increase by > / = 3 points. Inpatient: RN or Physician to activate a stroke alert for NIHSS increase of > / = 3 points. Coma Scale [Assess] -Eye Opening Spontaneous -Motor Obeys Commands -Verbal Confused [Total] -Coma Scale Total 14
[2025-05-03] MEDS: Memantine Hydrochloride 10 MG Tablet PO (21:55)
[2025-05-03] MEDS: Atorvastatin Calcium 80 MG Tablet PO (21:57)
[2025-05-03] MEDS: Doxazosin 1 MG Tablet PO (21:57)
[2025-05-03] MEDS: Donepezil HCl 10 MG Tablet PO (21:57)
[2025-05-03 22:20] LABS: Bedside Glucose 102 mg/dL (74-106)
[2025-05-04] VITALS (7 sets, daily range): BP systolic 132–145; BP diastolic 56–93; PULSE 63–99; RESP 18–24; TEMP 36.6–38.1; O2SAT 94–98; BMI 24.4
[2025-05-04] MEDS: HYDROmorphone 0.5 MG/0.5 ML SYRINGE IV (04:50)
[2025-05-04] MEDS: Enoxaparin 30 MG/0.3 ML Syringe SC (04:51)
[2025-05-04] MEDS: Piperacil/Tazobactam 3.375 GM in 0.9% Normal Saline (50mL MB+) 50 ML IV (04:54)
[2025-05-04 06:39] LABS: Bedside Glucose 93 mg/dL (74-106)
[2025-05-04] MEDS: Ipratropium/Albuterol Sulfate 3 ML AMPUL.NEB INHALATION (07:02)
[2025-05-04 09:10] LABS: Anion Gap 14 (5-15); BUN 59 mg/dL (4-19); BUN/Creat Ratio 22.9 RATIO (10-20); Calcium,Total 8.2 mg/dL (7.6-11.0); Carbon Dioxide 20.5 mmol/L (21.0-32.0); Chloride 113 mmol/L (98-108); Creatinine, Serum 2.57 mg/dL (0.70-1.20); EST Glomerular Filtration Rate 24 (>60); Estimated Creatinine Clearance 19.65 ml/min (50-250); Glucose 100 mg/dL (70-99); Potassium 4.1 mmol/L (3.3-5.1); Sodium Level 148 mmol/L (133-145)
--- NOTE | 2025-05-04 09:37 | CASEMGMT ---
TRACY [facility]ORES NOTE: [facility]. Odalys SANTIAGO RN CM
[2025-05-04] MEDS: 0.9% Saline Lock 10 ML Syringe IV (10:13)
[2025-05-04] MEDS: Furosemide 20 MG/2 ML VIAL IV (10:13)
[2025-05-04] MEDS: QUEtiapine 25 MG Tablet PO ×2 (10:14→21:05)
[2025-05-04] MEDS: Memantine Hydrochloride 10 MG Tablet PO ×2 (10:14→21:05)
--- NOTE | 2025-05-04 10:32 | CASEMGMT ---
Per Speech Therapy patient now has a diet. Speech is not recommending a peg tube as it will increase patient's risk for aspiration. PER sent Speech Therapy's note to [facility]. Nida MONDRAGON
[2025-05-04] MEDS: Dextrose 5%-Water (1000mL Bag) 1,000 ML 60 ML IV (12:03)
[2025-05-04 12:18] LABS: Bedside Glucose 133 mg/dL (74-106)
[2025-05-04] MEDS: Ensure Plus High Protein 120 ML LIQUID PO ×2 (12:34→18:12)
[2025-05-04] MEDS: Acetaminophen 500 MG Tablet 1000 MG PO ×2 (12:35→21:06)
[2025-05-04 16:46] LABS: Bedside Glucose 131 mg/dL (74-106)
--- NOTE | 2025-05-04 18:57 | PN.HOSP_ITS ---
Reason for Visit Reason for Visit: Diagnoses Fracture of unspecified part of neck of left femur, initial encounter for closed fracture (04/23/25) Displaced intertrochanteric fracture of left femur, initial encounter for closed fracture (04/23/25) Unspecified fall, initial encounter (04/23/25) Subjective Subjective Patient was seen and examined today, patient appears to be restless but not severely restless at this time. I talked at length with the patient's daughter and today, we have not heard from his insurance carrier regarding permission for him to go to a retirement facility. I made the decision today to take the patient off of Zosyn-I am not sure he has pneumonia, and I have made the decision to convert his Lasix to oral Lasix. Finally, I have decided to place him on gabapentin 200 mg twice daily for neuropathy pain, patient had gabapentin listed as an allergy due to tremors-the does not remember this and the patient has baseline tremors anyway. I decided not to increase the patient's Seroquel at this time, I do not want to cause excessive sedation. Objective Data Objective Data Vital Signs: Vital Signs Temp Pulse Resp BP Pulse Ox O2 Del Method O2 Flow Rate 97.8 F 92 18 142/56 H 98 Nasal Cannula 4 05/04/25 15:35 05/04/25 15:35 05/04/25 15:35 05/04/25 15:35 05/04/25 15:35 05/04/25 15:35 05/04/25 15:35 Oxygen Flow Rate (L/min) 4 Oxygen Delivery Method Nasal Cannula Weight: 70.7 kg Body Mass Index (BMI) 24.4 Intake & Output: Intake and Output for Last 24 Hours 05/02/25 05/03/25 05/04/25 23:59 23:59 23:59 Intake Total 865 / 865 2071 / 2071 1056 / 1056 Output Total 3400 / 4650 2950 / 2950 1400 / 1400 Balance -2535 / -3785 -879 / -879 -344 / -344 Lab / Micro Data 05/03/25 05:15 05/04/25 08:21 Labs: Laboratory Results - last 24 hr 05/03/25 22:00: POC Glucose 102 05/04/25 05:52: POC Glucose 93 06/17/25 08:21: Sodium 148 H, Potassium 4.1, Chloride 113 H, Carbon Dioxide 20.5 L, Anion Gap 14, BUN 59 H, Creatinine 2.57 H, Estim Creat Clear Calc 19.65 L, E st GFR (MDRD) Non-Af 24 L, BUN/Creatinine Ratio 22.9 H, Glucose 100 H, Calcium 8.2 05/04/25 11:53: POC Glucose 133 H 05/04/25 16:27: POC Glucose 131 H Physical Exam Narrative alert, no apparent distress, average body habitus and healthy appearing General Appearance: cooperative, well kempt and well developed Orientation / Consciousness: awake and oriented to person HEENT normocephalic, head/scalp atraumatic and moist oral mucous membranes Head and Scalp: normocephalic Eyes PERRL, EOMs intact bilaterally and conjunctivae normal Neck supple, no JVD, thyroid normal and no carotid bruits General: trachea midline Resp normal respiratory effort, no retractions, no use of accessory muscles and clear to auscultation bilaterally Auscultation: Negative for rales, rhonchi or wheezes Cardio regular rate, regular rhythm, S1 normal heart sound, S2 normal heart sound, no murmurs, no rub and no gallops GI normal to inspection, nondistended, normoactive bowel sounds, soft to palpation, non-tender and non-distended Extremity no clubbing, cyanosis or edema Skin no rashes or lesions noted General Skin Exam: no breakdown Neuro CN's II-XII intact bilaterally, no focal motor deficits and no sensory deficits noted Neuro Narrative: Patient is alert, he is confused, he does not appear agitated Sensorium / Orientation: awake, alert and oriented to person Speech: speech normal Psych Psych Narrative: Patient exhibits cognitive impairment, he is alert and does not carry on a conversation but says a few words which do not make sense. Assessment & Plan Assessment/Plan (1) Intertrochanteric fracture of left femur: (2) Closed fracture of left hip: PLAN: Plan 1. 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 Patient's white blood cell count is slightly high #4 hyperkalemia-resolved at this time #5 chronic kidney disease stage IV-patient's IV fluids will be continued, I have decided to decrease his IV rate to 75 cc/h, patient is still on D5 half-normal saline #6 hstyxfvv-auglzclf-muvlgquijip care, management, recovery, and prognosis, patient is currently on Seroquel for agitation #7 slightly low platelet count-resolved at this time #8 acute anemia-secondary to acute blood loss from left hip fracture-hemoglobin was 8.4 today and appears stable, recheck CBC tomorrow #9 cardiomyopathy by history-patient's echocardiogram showed an ejection fraction of 55% #10 subacute occipital infarction-patient is on a baby aspirin a day #11 hypernatremia-patient is on D5W at 60 an hour, BMP will be rechecked tomorrow, sodium is improved I have ruled out pneumonia and CHF at this time, patient's Zosyn was stopped, I have elected to keep the patient on Lasix 40 mg p.o. daily Total clinical time spent by myself addressing the patient's medical issues, reviewing all of his data, and collaborating with the patient's care team: 35 minutes Charges/Coding Visit Charges Inpatient E&M: 19040 Subs Hosp L2 NIHSS NIHSS Nursing Documentation NIHSS Nursing Documentation: NIHSS: Ischemic Stroke/TIA Start: 04/26/25 10:12 Freq: Q4H Status: Complete Protocol: Activity Type Activity Date Activity User E-sign Co-sign Detail Recorded Client Recorded Date Recorded By Document 04/29/25 12:00 [id number] 04/29/25 12:36 04/29/25 12:00 NIH Stroke Scale [NIHSS] A score of 0 is normal or asymptomatic . Total possible score is 42. Inpatient: RN or Physician to activate a stroke alert for onset of new stroke symptoms or with NIHSS increase >/= 3 points. Following change in neurological status, NIHSS will be performed per physician order or more frequently PRN. -1a. Level of Consciousness 0 - Alert; keenly responsive -1b. LOC Questions 2 - Answers NEITHER question correctly -1c. LOC Commands 0 - Performs BOTH tasks correctly -2. Best Gaze 0 - Normal -3. Visual 0 - No visual loss -4. Facial Palsy 0 - Normal symmetrical movements -5a. Left Arm 2 - Some effort against gravity; -5b. Right Arm 1 - Drift; arm drifts downward but doesn?t hit the bed -6a. Left Leg UN - Amputation or joint fusion, explain : -'UN' explanation Recent hip fx -6b. Right Leg 2 - Some effort against gravity; -7. Limb Ataxia UN - Amputation or joint fusion, explain -'UN' explanation LFT HIP FX, PT NOT COOPERATING BUE ASESSMENT -8. Sensory 0 - Normal; no sensory loss -9. Best Language 2 - Severe aphasia; -10. Dysarthria 1 = Mild-to- moderate dysarthria; -11. Extinction and Inattention 0 - No abnormality -Total 10 Query Text:A score of 0 is normal or asymptomatic. Total possible score is 42 . ED: Notify Physician for NIHSS increase by > / = 3 points. Inpatient: RN or Physician to activate a stroke alert for NIHSS increase of > / = 3 points. Coma Scale [Assess] -Eye Opening Spontaneous -Motor Obeys Commands -Verbal Confused [Total] -Coma Scale Total 14
[2025-05-04] MEDS: Donepezil HCl 10 MG Tablet PO (21:03)
[2025-05-04] MEDS: Atorvastatin Calcium 80 MG Tablet PO (21:04)
[2025-05-04] MEDS: Doxazosin 1 MG Tablet PO (21:04)
[2025-05-04] MEDS: Senna/Docusate Sodium 1 Tablet 2 TABLET PO (21:05)
[2025-05-04 22:18] LABS: Bedside Glucose 147 mg/dL (74-106)
[2025-05-05] VITALS (11 sets, daily range): BP systolic 101–134; BP diastolic 46–80; PULSE 73–91; RESP 18–24; TEMP 36.1–37.1; O2SAT 91–98; BMI 24.4; BMI 28.2
[2025-05-05] MEDS: Dextrose 5%-Water (1000mL Bag) 1,000 ML 60 ML IV (04:52)
[2025-05-05] MEDS: Enoxaparin 30 MG/0.3 ML Syringe SC (05:25)
[2025-05-05] MEDS: Acetaminophen 500 MG Tablet 1000 MG PO ×3 (05:26→22:13)
[2025-05-05] MEDS: Ipratropium/Albuterol Sulfate 3 ML AMPUL.NEB INHALATION ×3 (06:48→19:15)
[2025-05-05 06:55] LABS: Bedside Glucose 118 mg/dL (74-106)
[2025-05-05 07:11] LABS: Absolute Lymphocyte Count 1.57 X10^3/uL (0.83-4.51); Absolute Neutrophil Count 9.4 X10^3/uL (2.0-7.7); Basophil# 0.02 X10^3/uL; Basophil% 0.2 % (0-1); Eosinophils% 2.5 % (0-5); Hematocrit 20.9 % (40-54); Hemoglobin 7.1 g/dL (13.0-16.5); Lymphocyte # 1.57 X10^3/ul (0.83-4.51); Mean Corpuscular Hgb 32.6 pg (27.0-32.0); Mean Corpuscular Volume 95.9 fL (80-94); Mean Platelet Vol. 11.8 fl (6.2-12.0); Monocyte# 0.69 X10^3/uL; Monocyte% 5.7 % (0-10); NRBC Flagged by Analyzer 4.4 % (0-5); Neutrophil # 9.39 X10^3/uL (2.7-7.7); Neutrophil % 77.8 % (47-70); Platelet Count 318 K/mm3 (150-450); RBC Distribution Width SD 53.8 fl (35.1-43.9); Red Blood Count 2.18 M/mm3 (4.6-6.2); White Blood Count 12.1 K/mm3 (4.4-11.0)
[2025-05-05 08:01] LABS: ALB/GLOB Ratio 1.2 RATIO (0.9-2.4); AST(SGOT) 82 U/L (<=37); Alanine Aminotransfer ALT/SGPT 34 U/L (<=46); Albumin, Serum 2.6 g/dL (3.4-4.8); Alkaline Phosphatase 107 U/L (40-129); Anion Gap 12 (5-15); BUN 59 mg/dL (4-19); BUN/Creat Ratio 24.2 RATIO (10-20); Calcium,Total 7.5 mg/dL (7.6-11.0); Carbon Dioxide 20.1 mmol/L (21.0-32.0); Chloride 112 mmol/L (98-108); Creatinine, Serum 2.43 mg/dL (0.70-1.20); EST Glomerular Filtration Rate 26 (>60); Globulin 2.2 g/dL (2.2-4.2); Glucose 117 mg/dL (70-99); Protein, Total 4.8 g/dL (5.9-8.4); Sodium Level 144 mmol/L (133-145); Total Bilirubin 1.08 mg/dL (0.00-1.30)
--- NOTE | 2025-05-05 08:53 | CASEMGMT ---
Discharge Planning Updates sent to [facility]. Precert remains pending. Susannah Solis DC Planning Asst.
[2025-05-05] MEDS: Aspirin 81 MG TAB.CHEW PO (10:39)
[2025-05-05] MEDS: Ensure Plus High Protein 120 ML LIQUID PO ×3 (10:39→17:13)
[2025-05-05] MEDS: Allopurinol 300 MG Tablet PO (10:40)
[2025-05-05] MEDS: Memantine Hydrochloride 10 MG Tablet PO ×2 (10:40→22:12)
[2025-05-05] MEDS: PARoxetine 10 MG Tablet PO (10:40)
[2025-05-05] MEDS: QUEtiapine 25 MG Tablet PO ×2 (10:41→22:12)
[2025-05-05] MEDS: Gabapentin 100 MG Capsule 200 MG PO (10:43)
[2025-05-05] MEDS: Furosemide 40 MG Tablet PO (10:43)
--- NOTE | 2025-05-05 14:50 | CASEMGMT ---
Addendum entered by Nida Vera 05/05/25 15:12: Mere notified PER that she can be up to meet with Kate around 345. SW notified Annemarie. Nida Vera [facility] [place] [facility] Addendum entered by Nida Vera 05/05/25 15:09: SW went to patient's room and notified Annemarie that SW left a message for Mere. Patient's daughter was in the room and she said they could wait to leave tomorrow around noon. SW also answered patient's daughter's questions. Nida MONDRAGON Original Note: PER spoke with patient's Annemarie per her request. Annemarie asked what happens if insurance does not approve patient. PER explained it would be private pay or they could apply for Medicaid. Annemarie said she isn't sure if he would qualify. PER explained [facility] has a financial person that assists patient's with Medicaid. PER could see if Mere could come and talk with her. Annemarie said that would be good. Her daughter is in from out of town, but leaves tomorrow. PER called Mere with [employer] and left her a message asking if she could see Kate's . PER let Annemarie know that PER left Mere a message. Nida Vera PRESENTATION DESIGNERCal MONDRAGON
--- NOTE | 2025-05-05 15:41 | CASEMGMT ---
Discharge Planning [facility] has obtained auth to admit. SW updated. Susannah Solis DC Planning Asst.
[2025-05-05] MEDS: Potassium Chloride Oral Soln 20 MEQ/15 ML UDC PO (17:13)
--- NOTE | 2025-05-05 19:33 | PCM.PN.HOSP ---
Reason for Visit Reason for Visit: Diagnoses Fracture of unspecified part of neck of left femur, initial encounter for closed fracture (04/23/25) Displaced intertrochanteric fracture of left femur, initial encounter for closed fracture (04/23/25) Unspecified fall, initial encounter (04/23/25) Subjective Subjective Per family this morning patient was doing very well and was up and moving around with therapy and was awake and alert and interactive, after therapy he got the gabapentin and Tylenol and has been very tired and will wake up but falls back asleep quickly, also having some jerking movements at times. Patient would wake up but was somewhat nonsensical with questions. Family endorses his fatigue and tiredness was progressive after the medications did not happen suddenly with no sudden focal complaints Objective Data Objective Data Vital Signs: Vital Signs Temp Pulse Resp BP Pulse Ox O2 Del Method O2 Flow Rate 98.4 F 86 18 101/58 L 91 Nasal Cannula 2 05/05/25 09:02 05/05/25 15:00 05/05/25 15:00 05/05/25 09:02 05/05/25 10:21 05/05/25 14:00 05/05/25 14:00 Oxygen Flow Rate (L/min) 2 Oxygen Delivery Method Nasal Cannula Weight: 81.6 kg Body Mass Index (BMI) 28.2 Intake & Output: Intake and Output for Last 24 Hours 05/03/25 05/04/25 05/05/25 23:59 23:59 23:59 Intake Total 2071 / 2071 1086 / 1086 1708 / 1708 Output Total 2950 / 2950 1650 / 1650 450 / 450 Balance -879 / -879 -564 / -564 1258 / 1258 Lab / Micro Data 05/05/25 06:21 05/05/25 06:21 Labs: Laboratory Results - last 24 hr 05/04/25 20:54: POC Glucose 147 H 05/05/25 06:21: WBC 12.1 H, RBC 2.18 L, Hgb 7.1 L, Hct 20.9 L, MCV 95.9 H, MCH 32.6 H, MCHC 34.0, RDW Std Deviation 53.8 H, RDW Coeff of Eduarda 17.0 H, Plt Count 318, MPV 11.8, Immature Gran % (Auto) 0.800, Neut % (Auto) 77.8 H, Lymph % (Auto) 13.0 L, [place] % (Auto) 5.7, Eos % (Auto) 2.5, Baso % (Auto) 0.2, Absolute Neuts (auto) 9.4 H, Absolute Lymphs (auto) 1.57, Nucleated RBC % 4.4, Sodium 144, Potassium 3.0 L, Chloride 112 H, Carbon Dioxide 20.1 L, Anion Gap 12, BUN 59 H, Creatinine 2.43 H, Estim Creat Clear Calc 23.10 L, Est GFR (MDRD) Non-Af 26 L, BUN/Creatinine Ratio 24.2 H, Glucose 117 H, Calcium 7.5 L, Total Bilirubin 1.08, AST 82 H, ALT 34, Alkaline Phosphatase 107, Total Protein 4.8 L, Albumin 2.6 L, Globulin 2.2, Albumin/Globulin Ratio 1.2 05/05/25 06:28: POC Glucose 118 H Physical Exam Narrative General: Will wake up but falls back asleep quickly HEENT: Atraumatic, normocephalic Eyes: Anicteric, normal conjunctiva, extraocular movements grossly intact Neck: Supple Respiratory: No significant wheezes or rhonchi, normal respiratory effort Cardiovascular: Regular rate and rhythm GI: Soft, nontender, nondistended Extremities: No edema Musculoskeletal: Moving all extremities in bed Neuro: Some decreased strength right compared to left per but patient not particularly waking up to participate in exam, does have what occasionally appears to be myoclonic jerking Skin: No rashes appreciated Psych: Attempts to be cooperative but falls back asleep quickly Assessment & Plan Assessment/Plan (1) Intertrochanteric fracture of left femur: PLAN: Plan #Intertrochanteric fx of left femur -Status post left hip cephalomedullary nail postop day 11 - Plan is for SNF once medically stable - Will need to follow-up with Ortho on discharge #AMS -Suspect this is due to the gabapentin with patient's significant decrease in kidney function given the direct correlation between patient receiving the gabapentin and the progressive decline in mental status throughout the day with accompanying myoclonic jerking - Discontinue gabapentin - Continue to monitor #Subacute occipital infarct - Continue aspirin and statin - Patient go to SNF for therapy, likely tomorrow if mental status improves and labs/vitally stable # CKD stage IV -Appears to be at baseline -Avoid nephrotoxic agents -Daily BMPs # Chronic anemia - Suspect multifactorial with component of anemia of chronic disease given kidney function - No evidence of ongoing blood loss #Hypokalemia -Replace -Repeat in the AM #Dementia -Supportive care -Continue home medications #Depression/anxiety -Continue home medications #DVT ppx: hep subcu Raven Ayala MD Charges/Coding Visit Charges Inpatient E&M: 67288 Subs Hosp L2 NIHSS NIHSS Nursing Documentation NIHSS Nursing Documentation: NIHSS: Ischemic Stroke/TIA Start: 04/26/25 10:12 Freq: Q4H Status: Complete Protocol: Activity Type Activity Date Activity User E-sign Co-sign Detail Recorded Client Recorded Date Recorded By Document 04/29/25 12:00 [id number] 04/29/25 12:36 SS 04/29/25 12:00 NIH Stroke Scale [NIHSS] A score of 0 is normal or asymptomatic . Total possible score is 42. Inpatient: RN or Physician to activate a stroke alert for onset of new stroke symptoms or with NIHSS increase >/= 3 points. Following change in neurological status, NIHSS will be performed per physician order or more frequently PRN. -1a. Level of Consciousness 0 - Alert; keenly responsive -1b. LOC Questions 2 - Answers NEITHER question correctly -1c. LOC Commands 0 - Performs BOTH tasks correctly -2. Best Gaze 0 - Normal -3. Visual 0 - No visual loss -4. Facial Palsy 0 - Normal symmetrical movements -5a. Left Arm 2 - Some effort against gravity; -5b. Right Arm 1 - Drift; arm drifts downward but doesn?t hit the bed -6a. Left Leg UN - Amputation or joint fusion, explain : -'UN' explanation Recent hip fx -6b. Right Leg 2 - Some effort against gravity; -7. Limb Ataxia UN - Amputation or joint fusion, explain -'UN' explanation LFT HIP FX, PT NOT COOPERATING BUE ASESSMENT -8. Sensory 0 - Normal; no sensory loss -9. Best Language 2 - Severe aphasia; -10. Dysarthria 1 = Mild-to- moderate dysarthria; -11. Extinction and Inattention 0 - No abnormality -Total 10 Query Text:A score of 0 is normal or asymptomatic. Total possible score is 42 . ED: Notify Physician for NIHSS increase by > / = 3 points. Inpatient: RN or Physician to activate a stroke alert for NIHSS increase of > / = 3 points. Coma Scale [Assess] -Eye Opening Spontaneous -Motor Obeys Commands -Verbal Confused [Total] -Coma Scale Total 14
[2025-05-05] MEDS: Atorvastatin Calcium 80 MG Tablet PO (22:12)
[2025-05-05] MEDS: Doxazosin 1 MG Tablet PO (22:13)
[2025-05-05] MEDS: Donepezil HCl 10 MG Tablet PO (22:13)
[2025-05-05] MEDS: Heparin Injection (Vial) 5,000 UNIT/ML VIAL 5000 UNIT SC (22:28)
[2025-05-06] VITALS (13 sets, daily range): BP systolic 110–153; BP diastolic 42–98; PULSE 77–98; RESP 16–22; TEMP 36.1–36.3; O2SAT 92–100; BMI 28.2; BMI 22.6
[2025-05-06] MEDS: Acetaminophen 500 MG Tablet 1000 MG PO ×2 (05:04→13:39)
[2025-05-06 06:12] LABS: Absolute Lymphocyte Count 1.26 X10^3/uL (0.83-4.51); Absolute Neutrophil Count 6.8 X10^3/uL (2.0-7.7); Basophil# 0.01 X10^3/uL; Basophil% 0.1 % (0-1); Eosinophil# 0.24 X10^3/uL; Eosinophils% 2.7 % (0-5); Hematocrit 20.2 % (40-54); Hemoglobin 6.7 g/dL (13.0-16.5); Lymphocyte # 1.26 X10^3/ul (0.83-4.51); Lymphocyte % 14.1 % (19-41); Mean Corp Hgb Conc 33.2 g/dL (32-36); Mean Corpuscular Hgb 32.7 pg (27.0-32.0); Mean Corpuscular Volume 98.5 fL (80-94); Mean Platelet Vol. 11.5 fl (6.2-12.0); Monocyte# 0.56 X10^3/uL; Monocyte% 6.3 % (0-10); NRBC Flagged by Analyzer 2.5 % (0-5); Neutrophil # 6.81 X10^3/uL (2.7-7.7); Neutrophil % 76.4 % (47-70); Platelet Count 341 K/mm3 (150-450); RBC Distribution Width CV 17.4 % (11.6-14.6); RBC Distribution Width SD 56.8 fl (35.1-43.9); Red Blood Count 2.05 M/mm3 (4.6-6.2); White Blood Count 8.9 K/mm3 (4.4-11.0)
[2025-05-06 06:34] LABS: Anion Gap 11 (5-15); BUN 57 mg/dL (4-19); BUN/Creat Ratio 23.9 RATIO (10-20); Calcium,Total 7.5 mg/dL (7.6-11.0); Chloride 114 mmol/L (98-108); Creatinine, Serum 2.37 mg/dL (0.70-1.20); EST Glomerular Filtration Rate 27 (>60); Estimated Creatinine Clearance 21.31 ml/min (50-250); Glucose 92 mg/dL (70-99); Potassium 3.4 mmol/L (3.3-5.1); Sodium Level 146 mmol/L (133-145)
[2025-05-06] MEDS: Ipratropium/Albuterol Sulfate 3 ML AMPUL.NEB INHALATION ×3 (06:54→15:35)
[2025-05-06] MEDS: Ensure Plus High Protein 120 ML LIQUID PO ×2 (09:01→11:29)
[2025-05-06] MEDS: Aspirin 81 MG TAB.CHEW PO (09:01)
[2025-05-06] MEDS: Allopurinol 300 MG Tablet PO (09:02)
[2025-05-06] MEDS: Heparin Injection (Vial) 5,000 UNIT/ML VIAL 5000 UNIT SC (09:02)
[2025-05-06] MEDS: Memantine Hydrochloride 10 MG Tablet PO (09:02)
[2025-05-06] MEDS: PARoxetine 10 MG Tablet PO (09:02)
[2025-05-06] MEDS: QUEtiapine 25 MG Tablet PO (09:03)
--- NOTE | 2025-05-06 12:03 | EKG12_ITS ---
Test Reason : ekg change Blood Pressure : */* mmHG Vent. Rate : 88 BPM Atrial Rate : 88 BPM P-R Int : 152 ms QRS Dur : 124 ms QT Int : 410 ms P-R-T Axes : 17 -5 159 degrees QTcB Int : 496 ms Sinus rhythm with Premature atrial complexes Left bundle branch block Abnormal ECG When compared with ECG of 02-May-2025 21:08, Premature atrial complexes are now Present Left bundle branch block is now Present Minimal criteria for Anterior infarct are no longer Present Confirmed by NATALIO MALCOLM, CHERRY ([id number]), photography editor ADRIANNA MADRIGAL ([id number]) on 05/11/2025 6:39:46 AM Referred By: Confirmed By: CHERRY LANCE MD
--- NOTE | 2025-05-06 13:02 | TREXTCAR_ITS ---
Diet Diet Order/Speech Therapy: INPATIENT Hospital Diet / Speech Therapy Order(s) 05/04/25 10:04 Diet: Regular - General Food consistency:: Pureed Liquid Consistency:: [place]/Mildly Thick Type of Dietary Supplement:: [place]. pudding w/meals Diet Comments: TOTAL FEED BY STAFF, LIQUID BY TSP ONLY, MOIST PUREES, MONITOR SPO2 Routine Orders/Code Status Suppository Type: Dulcolax 10mg Suppository Frequency: Daily PRN Routine Lab Work: CBC (2-3 days, hemaglobin) and BMP (2-3 days sodium) Code Status: Full Code DC O2, CPAP, BIPAP needs Home O2 Discharge instructions: Yes Type of respiratory needs?: Oxygen Oxygen frequency: Continuous Continuous oxygen liters per minute: 2 Wound(s) LEFT HIP: Wound Type: Surgical Incision Left Knee: Wound Type: Surgical Incision left thigh: Wound Type: Surgical Incision left upper hip: Wound Type: Surgical Incision L Elbow: Wound Type: Skin Tear Therapies Weight Bearing: Weight bearing as tolerated Extremity Affected:: Left Lower Physical Therapy: Eval and Treat Occupational Therapy: Eval and Treat Speech Therapy: Eval and Treat Problem/Diagnosis (1) Intertrochanteric fracture of left femur: Status: Acute Code(s): S72.142A - Displaced intertrochanteric fracture of left femur, initial encounter for closed fracture Plan #Intertrochanteric fx of left femur -Status post left hip cephalomedullary nail postop day 11 #Subacute occipital infarct, left # CKD stage IV #acute on Chronic anemia #Dementia #Depression/anxiety 85-year-old male history of CKD IV, dementia, depression, chronic anemia, hairy cell leukemia who presented [facility] ED 04/23/2025 after a fall with subsequent left hip pain. X-ray showed acute comminuted intertrochanteric fracture of left femur. ED discussed with Ortho who recommended medical admission with Ortho consult with plans for surgery. Patient underwent left hip cephalomedullary nail 04/24/2025. patient did have postoperative anemia. Postoperative course also complicated by acute CVA with right sided weakness and garbled speech. Stroke call 04/26/[address] of the brain showed subacute stroke in the occipital area of the left brain. Subsequent dysphagia and difficulty with speech/communication/garbled speech and was working with speech therapy with adjustments to his diet. Patient had elevated sodium during admission and was started on fluids, presume this is due to difficulty with free water intake, this improved with fluids and they were d/c'd and patient was taken off of home Lasix especially given normal EF and lack of fluid overload. On day of discharge patient noted to have hemoglobin of 6.7 (7.1 previous day , 8.4 the day before that however 1 day before that was 7.3 )however patient has been anemic since his surgery on 04/24 with hemoglobin fluctuating in the 7-8 range, there is no evidence of ongoing blood loss, suspect that the dip below 7 is due to blood draws, patient's chronic illnesses and kidney disease causing decreased production as well as dilution with the fluids that patient was on. Patient transfused 1 unit because he reached the threshold but again do not think patient is actively bleeding and feel it is reasonable to transfer to SNF and this can be repeated in several days. PPI has been added for gastric protection given eliquis and aspirin. Discussed blood counts and sodium with family and they are comfortable with this plan. Also on day of discharge EKG obtained as patient appeared somewhat irregular on telemetry, this shows sinus arrhythmia which is consistent with previous EKGs and does not appear to have A-fib. On day of discharge patient very difficult historian (has been since stroke) with difficulty getting words out and answering questions, and daughter at bedside report he is actually much better than he had been and that he has continued to improve. They said that earlier he felt like he was going to fall to the right but patient was unable to expand upon that history and tended to say yes to any question asked and then at other times would answer differently to the same questions. Does not appear to have any acute complaints or clinical changes at this time. Pt stable for d/c to SNF DISCHARGE INSTRUCTIONS PLEASE READ *Please take this with you to your next doctors appointment* -Please follow-up with Orthopedic surgery upon discharge. Please call their office to schedule hospital follow-up appointment upon discharge. Per orthopedic recommendations can also consider x-rays and suture/staple removal at skilled facility versus Ortho office on 05/09/2025 (14 days postop) - dressing changes every other day as recommended by orthopedic surgery - will need to continue Eliquis twice daily for DVT prophylaxis as well as an 81mg aspirin per neurology recommendations for 2 weeks postop ( until 6/22) and then aspirin 81 mg twice daily for 2 weeks thereafter before going back down to once daily - Protonix has been added to your medication regimen as well to decrease stomach irritation given need for aspirin and blood thinner - your atorvastatin has been increased to 40 mg due to your stroke -Would recommend lab work ( CBC and BMP) to check your hemoglobin and sodium in 2 to 3 days -Recommend speech/language evaluation at assisted facility, was being seen by speech primarily for dysphagia during his hospitalization -Please follow-up with neurology upon discharge, please call Dr. Braswell's office upon discharge to schedule an appointment to establish care or establish with a provider of your preference ) - you were started on Seroquel 25 mg twice daily to help with anxiety and agitation, ultimately this may be discontinued at the discretion of the assisted facility -Please call your primary care provider's office upon discharge to schedule a hospital follow up within 1 week. -For any concerning signs or symptoms please call 911 or proceed to the nearest emergency department Allergies/Procedures Done in Hospital Allergies gabapentin Allergy (Verified 04/23/25 20:24) tremors tremors metoprolol (From Toprol XL) Allergy (Verified 04/23/25 20:24) PT UNSURE OF REACTION ramipril (From Altace) Allergy (Verified 04/23/25 20:24) PT UNSURE OF REACTION Procedures: 2-D Echocardiogram and - (Left hip cephalomedullary nail 04/24/2025 Dr. Miranda) Type of Care/Length of Stay Estimated LOS: Convalescent Care Less Than 30 days Type of Care Needed: Skilled Rehab Potential: Fair Prognosis: Fair Additional Orders/Day of Discharge Day of Discharge: 05/06/25 Dietary and Speech Recommendations Dietitian Recommendations/Changes: Continue regular per [employer]INE recommendations per texture/consistency. Continue 120ml EPHP TID with medpass. Will order vanilla fortified pudding TID with meals. PO will need to be established. Will monitor weight trends. Discharge Plan Admission Admit Date/Time: 04/23/25 21:57 Primary Reason for Your Visit: Fall with left hip fracture Attending Provider: Raven Ayala Primary Care Provider: Antony Botello Consulting Providers: Paty Morgan; Jose Miranda; Alfonso Albarado; Sonia Torres; Ara Nunez; Naima Bennett; Karli Rollins ARCHITECTURAL TECHNICIAN; Edita Gr; Vern Rao Instructions Patient Instructions: ED Fall Prevention Additional Instructions / Restrictions: DISCHARGE INSTRUCTIONS PLEASE READ *Please take this with you to your next doctors appointment* -Please follow-up with Orthopedic surgery upon discharge. Please call their office to schedule hospital follow-up appointment upon discharge. Per orthopedic recommendations can also consider x-rays and suture/staple removal at skilled facility versus Ortho office on 05/09/2025 (14 days postop) - dressing changes every other day as recommended by orthopedic surgery - will need to continue Eliquis twice daily for DVT prophylaxis as well as an 81mg aspirin per neurology recommendations for 2 weeks postop ( until 05/09) and then aspirin 81 mg twice daily for 2 weeks thereafter before going back down to once daily - Protonix has been added to your medication regimen as well to decrease stomach irritation given need for aspirin and blood thinner - your atorvastatin has been increased to 40 mg due to your stroke -Would recommend lab work ( CBC and BMP) to check your hemoglobin and sodium in 2 to 3 days -Recommend speech/language evaluation at [facility], was being seen by speech primarily for dysphagia during his hospitalization -Please follow-up with neurology upon discharge, please call Dr. Braswell's office upon discharge to schedule an appointment to establish care or establish with a provider of your preference (ph [phone]) - you were started on Seroquel 25 mg twice daily to help with anxiety and agitation, ultimately this may be discontinued at the discretion of the assisted facility -Please call your primary care provider's office upon discharge to schedule a hospital follow up within 1 week. -For any concerning signs or symptoms please call 911 or proceed to the nearest emergency department Discharge Orders/Prescriptions Prescriptions: New acetaminophen 500 mg Tablet 1,000 mg PO Q8 Qty: 0 0RF aspirin 81 mg Tablet,Chewable 81 mg PO BREAKFAST Qty: 0 0RF Rx Instructions: Take once daily and on 05/10 discontinue Eliquis and take 81 mg of aspirin twice daily for 14 days, decrease to once daily thereafter Ensure Plus High Protein 0.08 gram-1.5 kcal/mL Liquid 120 ml PO TIDCM Qty: 0 0RF quetiapine 25 mg Tablet 25 mg PO BID Qty: 0 0RF ipratropium-albuterol 0.5 mg-3 mg(2.5 mg base)/3 mL Solution For Nebulization 3 ml inhalation TID PRN (Reason: shortness of breath) Qty: 0 0RF pantoprazole 40 mg Tablet,Delayed Release (Dr/Ec) 40 mg PO DAILY Qty: 0 0RF Eliquis 5 mg Tablet 2.5 mg PO BID 3 Days Qty: 3 0RF Rx Instructions: Take through 05/09 then aspirin 81mg BID as detailed Continued cholecalciferol (vitamin D3) 25 mcg (1,000 unit) tablet 25 mcg PO DAILY doxazosin 1 MG tablet 1 mg PO QHS Patient Comments: heart allopurinol [Zyloprim] 300 MG tablet 300 mg PO DAILY paroxetine HCl 10 MG tablet 10 mg PO DAILY donepezil 5 MG tablet 10 mg PO QHS Patient Comments: TAKE 1 TABLET BY MOUTH DAILY AT BEDTIME. memantine 5 mg tablet 10 mg PO BID Changed atorvastatin 10 MG tablet 40 mg PO QHS Qty: 30 0RF Patient Comments: high cholesterol Discontinued ibuprofen 200 mg Capsule 200 mg PO Q4H PRN (Reason: Pain) losartan 50 mg tablet 50 mg PO DAILY Referrals / Follow Up: Canelo Braswell MD [Non-Staff -Ordering Privileges] - (-Please follow-up with neurology upon discharge, please call Dr. Braswell's office upon discharge to schedule an appointment to establish care or establish with a provider of your preference (ph [phone])) Jose Miranda MD [Med Staff - Active Staff] - Within 1 Week Antony Botello MD [Primary Care Provider] - Disposition Disposition (needs filled in before D/C Order can be placed): Senior Living Facility
--- NOTE | 2025-05-06 13:45 | PCM.DC.SUM ---
Providers Date of Admission: 04/23/25 Date of Discharge: 05/06/25 Primary Care Physician: Dr. Antony Botello MD Consultations 04/24/25 00:28 Consult: Cardiology Routine Consulting Provider: Marcelle Klein Reason for Consult: fall w/ L hip fx, HFpEF 35%, needs preop assessment EMERGENT Consult: No MD Notified: Yes Date Notified: 04/23/25 Time Notified: 22:07 Method of Notification: Text Consult: Orthopedics Routine Consulting Provider: Jose Miranda Reason for Consult: Fall, L hip fx EMERGENT Consult: No MD Notified: Yes Date Notified: 04/23/25 Time Notified: 22:07 Method of Notification: ED Physician Initiated 05/03/25 11:39 Consult: Hospice / Palliative Care Routine Consulting Provider: [facility] Reason for Consult: Goals of care EMERGENT Consult: No MD Notified: Yes Date Notified: 05/03/25 Time Notified: 11:39 Method of Notification: Answering Service Comments:: paliative Reason For Visit: FALL, L HIP FRACTURE Diagnosis Discharge Diagnosis (1) Acute ischemic stroke: Status: Acute Code(s): I63.9 - Cerebral infarction, unspecified (2) Intertrochanteric fracture of left femur: Status: Acute Code(s): S72.142A - Displaced intertrochanteric fracture of left femur, initial encounter for closed fracture Plan #Intertrochanteric fx of left femur -Status post left hip cephalomedullary nail postop day 11 #Subacute occipital infarct, left # CKD stage IV #acute on Chronic anemia #Dementia #Depression/anxiety Medications at Discharge Home Medications doxazosin 1 mg tablet 1 mg PO QHS prostate 11/20/15 donepezil 5 mg tablet 10 mg PO QHS memory 11/28/17 paroxetine HCl 10 mg tablet 10 mg PO DAILY anxiety 11/28/17 allopurinol 300 mg tablet (Zyloprim) 300 mg PO DAILY GOUT 04/30/18 memantine 5 mg tablet 10 mg PO BID memory 05/26/21 cholecalciferol (vitamin D3) 25 mcg (1,000 unit) tablet 25 mcg PO DAILY ordered 05/14/23 acetaminophen 500 mg tablet 1,000 mg (2 x 500 mg) PO Q8 #0 tabs 05/06/25 apixaban 5 mg tablet (Eliquis) 2.5 mg (1/2 x 5 mg) PO BID 3 days #3 tabs 05/06/25 aspirin 81 mg chewable tablet 81 mg PO BREAKFAST #0 tabs 05/06/25 atorvastatin 10 mg tablet 40 mg (4 x 10 mg) PO QHS CHOLESTEROL #30 tabs 05/06/25 food supplemt, lactose-reduced 0.08 gram-1.5 kcal/mL oral liquid (Ensure Plus High Protein) 120 ml PO TIDCM #0 mL 05/06/25 ipratropium 0.5 mg-albuterol 3 mg (2.5 mg base)/3 mL nebulization soln 3 ml inhalation TID PRN shortness of breath #0 mL 05/06/25 pantoprazole 40 mg tablet,delayed release 40 mg PO DAILY #0 tabs 05/06/25 quetiapine 25 mg tablet 25 mg PO BID #0 tabs 05/06/25 Hospital Course Operations - (Left hip cephalomedullary nail 04/24/[address] Miranda) Procedures Transthoracic echo Summary of Care Provided Minutes Spent on Discharge: 40 Hospital Course: 85-year-old male history of CKD IV, dementia, depression, chronic anemia, hairy cell leukemia who presented [facility] ED 04/23/2025 after a fall with subsequent left hip pain. X-ray showed acute comminuted intertrochanteric fracture of left femur. ED discussed with Ortho who recommended medical admission with Ortho consult with plans for surgery. Patient underwent left hip cephalomedullary nail 04/24/2025. patient did have postoperative anemia. Postoperative course also complicated by acute CVA with right sided weakness and garbled speech. Stroke call 04/26/[address] of the brain showed subacute stroke in the occipital area of the left brain. Subsequent dysphagia and difficulty with speech/communication/garbled speech and was working with speech therapy with adjustments to his diet. Patient had elevated sodium during admission and was started on fluids, presume this is due to difficulty with free water intake, this improved with fluids and they were d/c'd and patient was taken off of home Lasix especially given normal EF and lack of fluid overload. On day of discharge patient noted to have hemoglobin of 6.7 (7.1 previous day , 8.4 the day before that however 1 day before that was 7.3 )however patient has been anemic since his surgery on 04/24 with hemoglobin fluctuating in the 7-8 range, there is no evidence of ongoing blood loss, suspect that the dip below 7 is due to blood draws, patient's chronic illnesses and kidney disease causing decreased production as well as dilution with the fluids that patient was on. Patient transfused 1 unit because he reached the threshold but again do not think patient is actively bleeding and feel it is reasonable to transfer to SNF and this can be repeated in several days. PPI has been added for gastric protection given eliquis and aspirin. Discussed blood counts and sodium with family and they are comfortable with this plan. Also on day of discharge EKG obtained as patient appeared somewhat irregular on telemetry, this shows sinus arrhythmia which is consistent with previous EKGs and does not appear to have A-fib. On day of discharge patient very difficult historian (has been since stroke) with difficulty getting words out and answering questions, and daughter at bedside report he is actually much better than he had been and that he has continued to improve. They said that earlier he felt like he was going to fall to the right but patient was unable to expand upon that history and tended to say yes to any question asked and then at other times would answer differently to the same questions. Does not appear to have any acute complaints or clinical changes at this time. Pt stable for d/c to SNF DISCHARGE INSTRUCTIONS PLEASE READ *Please take this with you to your next doctors appointment* -Please follow-up with Orthopedic surgery upon discharge. Please call their office to schedule hospital follow-up appointment upon discharge. Per orthopedic recommendations can also consider x-rays and suture/staple removal at skilled facility versus Ortho office on 05/09/2025 (14 days postop) - dressing changes every other day as recommended by orthopedic surgery - will need to continue Eliquis twice daily for DVT prophylaxis as well as an 81mg aspirin per neurology recommendations for 2 weeks postop ( until 05/09) and then aspirin 81 mg twice daily for 2 weeks thereafter before going back down to once daily - Protonix has been added to your medication regimen as well to decrease stomach irritation given need for aspirin and blood thinner - your atorvastatin has been increased to 40 mg due to your stroke -Would recommend lab work ( CBC and BMP) to check your hemoglobin and sodium in 2 to 3 days -Recommend speech/language evaluation at [facility], was being seen by speech primarily for dysphagia during his hospitalization -Please follow-up with neurology upon discharge, please call Dr. Braswell's office upon discharge to schedule an appointment to establish care or establish with a provider of your preference ( [phone]) - you were started on Seroquel 25 mg twice daily to help with anxiety and agitation, ultimately this may be discontinued at the discretion of the [facility] facility -Please call your primary care provider's office upon discharge to schedule a hospital follow up within 1 week. -For any concerning signs or symptoms please call 911 or proceed to the nearest emergency department Physical Exam Narrative General: Patient is awake and alert today however unable to answer orientation questions, garbled speech with word finding difficulty HEENT: Atraumatic Eyes: Anicteric, normal conjunctiva, extraocular movements grossly intact Neck: Supple Respiratory: Clear to auscultation bilaterally, normal respiratory effort Cardiovascular: Regular rate, occasional extra beats, EKG confirmed sinus arrhythmia GI: Soft, did not appear tender while palpating, nondistended Extremities: No edema Musculoskeletal: Is currently moving all extremities with improving strength in right side, difficulty moving left lower extremity due to recent hip fracture surgery Neuro: Garbled speech, word finding difficulty, difficulties with communication Skin: No rashes appreciated Psych: Cooperative Weight / BMI Weight Weight: 65.6 kg Body Mass Index (BMI) 22.6 ABG / Lab / Microbiology Data 05/06/25 05:28 05/06/25 05:28 Laboratory: Laboratory Results - last 24 hr 05/06/25 05:28: WBC 8.9, RBC 2.05 L, Hgb 6.7 L, Hct 20.2 L, MCV 98.5 H, MCH 32.7 H, MCHC 33.2, RDW Std Deviation 56.8 H, RDW Coeff of Eduarda 17.4 H, Plt Count 341, MPV 11.5, Immature Gran % (Auto) 0.400, Neut % (Auto) 76.4 H, Lymph % (Auto) 14.1 L, [place] % (Auto) 6.3, Eos % (Auto) 2.7, Baso % (Auto) 0.1, Absolute Neuts (auto) 6.8, Absolute Lymphs (auto) 1.26, Nucleated RBC % 2.5, Sodium 146 H, Potassium 3.4, Chloride 114 H, Carbon Dioxide 21.0, Anion Gap 11, BUN 57 H, Creatinine 2.37 H, Estim Creat Clear Calc 21.31 L, Est GFR (MDRD) Non-Af 27 L, BUN/Creatinine Ratio 23.9 H, Glucose 92, Calcium 7.5 L 05/06/25 09:41: Blood Type O POSITIVE, Antibody Screen NEGATIVE, Crossmatch See Detail D/C Instructions DC O2, CPAP, BIPAP Needs Home O2 Discharge instructions: Yes Type of respiratory needs?: Oxygen Oxygen frequency: Continuous Continuous oxygen liters per minute: 2 DC home with Oxygen: Yes Home O2 MD Review: I have reviewed the oxygen testing, and the patient qualifies for home oxygen equipment and portability. The patient is mobile in the home and the community. Meaningful Use Info Meaningful Use Meaningful Use Diagnoses (Choose all that apply): Ischemic CVA CVA Therapy Assessed for PT,OT and/or ST?: Yes Ischemic Stroke Antithrombotic order at d/c?: Yes Dx of Atrial fib/flutter?: No Statin Dosing Therapy Reference: STATIN DOSE THERAPY REFERENCE: * Patients > 75 years receive moderate or high dose statin therapy. * Patients 75 years or YOUNGER should receive HIGH intensity statin dose unless contraindicated. You will be required to document reason for non-treatment if statin daily dose does not meet guidelines. HIGH DOSE STATIN THERAPY DAILY Atorvastatin > than or = to 40 mg Rosuvastatin > than or = to 20 mg Amlodipine + Atorvastatin > than or = to 2.5/40 mg Ezetimibe + Simvastatin 10/80 mg Simvastatin 80mg Statins at discharge?: Yes Primary Dx Acute Ischemic CVA?: Yes Discharge Plan Admission Admit Date/Time: 04/23/25 21:57 Primary Reason for Your Visit: Fall with left hip fracture Attending Provider: Raven Ayala Primary Care Provider: Antony Botello Consulting Providers: Paty Morgan; Jose Miranda; Alfonso Albarado; Sonia Torres; Ara Nunez; Naima Bennett; Karli Rollins NP; Edita Gr; Vern Rao Instructions Patient Instructions: ED Fall Prevention Additional Instructions / Restrictions: DISCHARGE INSTRUCTIONS PLEASE READ *Please take this with you to your next doctors appointment* -Please follow-up with Orthopedic surgery upon discharge. Please call their office to schedule hospital follow-up appointment upon discharge. Per orthopedic recommendations can also consider x-rays and suture/staple removal at [facility] versus Ortho office on 05/09/2025 (14 days postop) - dressing changes every other day as recommended by orthopedic surgery - will need to continue Eliquis twice daily for DVT prophylaxis as well as an 81mg aspirin per neurology recommendations for 2 weeks postop ( until 05/09) and then aspirin 81 mg twice daily for 2 weeks thereafter before going back down to once daily - Protonix has been added to your medication regimen as well to decrease stomach irritation given need for aspirin and blood thinner - your atorvastatin has been increased to 40 mg due to your stroke -Would recommend lab work ( CBC and BMP) to check your hemoglobin and sodium in 2 to 3 days -Recommend speech/language evaluation at [facility], was being seen by speech primarily for dysphagia during his hospitalization -Please follow-up with neurology upon discharge, please call Dr. Braswell's office upon discharge to schedule an appointment to establish care or establish with a provider of your preference ) - you were started on Seroquel 25 mg twice daily to help with anxiety and agitation, ultimately this may be discontinued at the discretion of the [facility] facility -Please call your primary care provider's office upon discharge to schedule a hospital follow up within 1 week. -For any concerning signs or symptoms please call 911 or proceed to the nearest emergency department Discharge Orders/Prescriptions Prescriptions: New acetaminophen 500 mg Tablet 1,000 mg PO Q8 Qty: 0 0RF aspirin 81 mg Tablet,Chewable 81 mg PO BREAKFAST Qty: 0 0RF Rx Instructions: Take once daily and on 05/10 discontinue Eliquis and take 81 mg of aspirin twice daily for 14 days, decrease to once daily thereafter Ensure Plus High Protein 0.08 gram-1.5 kcal/mL Liquid 120 ml PO TIDCM Qty: 0 0RF quetiapine 25 mg Tablet 25 mg PO BID Qty: 0 0RF ipratropium-albuterol 0.5 mg-3 mg(2.5 mg base)/3 mL Solution For Nebulization 3 ml inhalation TID PRN (Reason: shortness of breath) Qty: 0 0RF pantoprazole 40 mg Tablet,Delayed Release (Dr/Ec) 40 mg PO DAILY Qty: 0 0RF Eliquis 5 mg Tablet 2.5 mg PO BID 3 Days Qty: 3 0RF Rx Instructions: Take through 6/22 then aspirin 81mg BID as detailed Continued cholecalciferol (vitamin D3) 25 mcg (1,000 unit) tablet 25 mcg PO DAILY doxazosin 1 MG tablet 1 mg PO QHS Patient Comments: heart allopurinol [Zyloprim] 300 MG tablet 300 mg PO DAILY paroxetine HCl 10 MG tablet 10 mg PO DAILY donepezil 5 MG tablet 10 mg PO QHS Patient Comments: TAKE 1 TABLET BY MOUTH DAILY AT BEDTIME. memantine 5 mg tablet 10 mg PO BID Changed atorvastatin 10 MG tablet 40 mg PO QHS Qty: 30 0RF Patient Comments: high cholesterol Discontinued ibuprofen 200 mg Capsule 200 mg PO Q4H PRN (Reason: Pain) losartan 50 mg tablet 50 mg PO DAILY Referrals / Follow Up: Canelo Braswell MD [Non-Staff -Ordering Privileges] - (-Please follow-up with neurology upon discharge, please call Dr. Braswell's office upon discharge to schedule an appointment to establish care or establish with a provider of your preference (ph [phone])) Jose Miranda MD [Med Staff - Active Staff] - Within 1 Week Antony Botello MD [Primary Care Provider] - Disposition Disposition (needs filled in before D/C Order can be placed): [facility] Charges/Coding Visit Charges Inpatient E&M: 43641 Disch Hosp >30min
--- NOTE | 2025-05-06 14:34 | CASEMGMT ---
Discharge Planning Discharge orders, signed med list, and transport time sent to [facility]. Physicians will transport pt by cot at 4p. Nursing, SW, and pts updated. Susannah Solis DC Planning Asst.
--- NOTE | 2025-05-06 14:44 | NURSING ---
Report given to Mirlande MOLINA from [facility] via phone call at 14:44.
--- NOTE | 2025-05-06 18:10 | CASEMGMT ---
Social Work Patient discharged today to [facility], skilled level of care. PASRR screen completed earlier in hospital stay. Placed copy of PASRR in envelope to accompany patient to the [facility]. Discharge planning advisor arranging transportation and communications with SNF/nursing/family regarding final discharge time frames. No other services requested or indicated. -KATYA Gongora
== END 2025-05-06 20:10 | disposition skilled nursing facility (03) | DRG 480 ==
LOC: ED 21:46 → MS3 22:12 → ICU 04-26 09:39 → PCU 04-27 21:11
PROVIDERS: Internal Medicine; Physician Assistant; Specialist; Admitting Provider Family Medicine; Emergency Provider Emergency Medicine; PCP Family Medicine; Visit Provider Internal Medicine
PROC: 0QS706Z Reposition Left Upper Femur with Intramedullary Internal Fixation Device, Open Approach (ICD-10-PCS; CPT 27245; principal; 2025-04-24 10:30)
DX: M80.052A Age-related osteoporosis with current pathological fracture, left femur, initial encounter for fracture (principal); I63.89 Other cerebral infarction; E87.0 Hyperosmolality and hypernatremia; F03.B18 Unspecified dementia, moderate, with other behavioral disturbance; G81.91 Hemiplegia, unspecified affecting right dominant side; C91.41 Hairy cell leukemia, in remission; I13.0 Hypertensive heart and chronic kidney disease with heart failure and stage 1 through stage 4 chronic kidney disease, or unspecified chronic kidney disease; N18.4 Chronic kidney disease, stage 4 (severe); D62 Acute posthemorrhagic anemia; I42.9 Cardiomyopathy, unspecified; I50.22 Chronic systolic (congestive) heart failure; I97.821 Postprocedural cerebrovascular infarction following other surgery; R29.718 NIHSS score 18; D63.1 Anemia in chronic kidney disease; E11.22 Type 2 diabetes mellitus with diabetic chronic kidney disease; F32.A Depression, unspecified; G25.3 Myoclonus; D50.9 Iron deficiency anemia, unspecified; D53.9 Nutritional anemia, unspecified; E11.42 Type 2 diabetes mellitus with diabetic polyneuropathy; E87.5 Hyperkalemia; E78.5 Hyperlipidemia, unspecified; M10.9 Gout, unspecified; E87.6 Hypokalemia; R13.10 Dysphagia, unspecified; Z90.81 Acquired absence of spleen; Z86.16 Personal history of COVID-19; Z79.82 Long term (current) use of aspirin; Z87.891 Personal history of nicotine dependence; Z79.1 Long term (current) use of non-steroidal anti-inflammatories (NSAID); R29.714 NIHSS score 14; T42.6X5A Adverse effect of other antiepileptic and sedative-hypnotic drugs, initial encounter; Y69 Unspecified misadventure during surgical and medical care; R29.3 Abnormal posture; R26.9 Unspecified abnormalities of gait and mobility; Z79.02 Long term (current) use of antithrombotics/antiplatelets; Z75.1 Person awaiting admission to adequate facility elsewhere; R47.81 Slurred speech; R94.31 Abnormal electrocardiogram [ECG] [EKG]
CPT/HCPCS: 36415; 36600; 70450; 70496; 70498; 70551; 71045; 73502; 74230; 76000; 80048; 80053; 82803; 82962; 83036; 83735; 83880; 85025; 85610; 86850; 86900; 86901; 92526; 92610; 92611; 93005; 93306; 94640; 94762; 97110; 97112; 97163; 97164; 97166; 97168; 97530; 97535; 99285; C1713; P9016; Q9957; Q9967; A4216; C8929; J1938; J2405

== ENCOUNTER 2025-05-10 09:41 | Emergency (ER) | payer MEDICARE, SELFPAY ==
[2025-05-10] VITALS (16 sets, daily range): BP systolic 88–141; BP diastolic 69–116; PULSE 77–100; RESP 12–31; TEMP 36.4–36.9; O2SAT 88–100; BMI 23.6
--- NOTE | 2025-05-10 10:11 | CT_ITS ---
PROCEDURE: CTA CHEST W/WO CONTRAST 05/10/2025 REASON FOR EXAM: SOB, RECENT SURGERY TECHNIQUE: CTA CHEST W/WO CONTRAST Multiplanar Sagittal and Coronal images were obtained. One or more dose reduction techniques were used (e.g., Automated exposure control, adjustment of the mA and/or kV according to patient size, use of iterative reconstruction technique). CONTRAST: Isovue 370 VOLUME: 75 mL RADIATION DOSE SUMMARY: CTDlvol: 20.83 mGy DLP: 1119.95 mGycm . COMPARISON: Prior chest radiograph dated May 02, 2025. FINDINGS: Hardware: None Lymph nodes: No suspicious lymph. Heart: Heart is nonenlarged. No evidence of coronary artery calcification. There is elevation of the left hemidiaphragm. Mild degree of increased linear markings at the lung bases suggestive of scarring and/or linear atelectasis. Emphysematous changes seen in both upper lobes worse in the right lung apex. Degenerative changes of the thoracic spine. CT/CTA Chest W/WO Contrast IMPRESSION: No evidence of pneumothorax. Elevation of the left hemidiaphragm. Linear atelectasis and/or scarring at the lung bases. Reading Location: [id number]
--- NOTE | 2025-05-10 10:11 | CT_ITS ---
PROCEDURE: BRAIN/HEAD WITHOUT CONTRAST 05/10/2025 REASON FOR EXAM: AMS TECHNIQUE: BRAIN/HEAD WITHOUT CONTRAST Coronal and Sagittal reconstruction series were provided. One or more dose reduction techniques were used (e.g., Automated exposure control, adjustment of the mA and/or kV according to patient size, use of iterative reconstruction technique. RADIATION DOSE SUMMARY: DLP: 2844 mGycm COMPARISON: April 26, 2025 CT FINDINGS: Brain: There is a developing infarct in the left posterior parietal and occipital lobes measuring 7 x 3 cm, similar to the prior. There is development of focal punctate increased density in the periphery of the midportion, axial image 35/55, which may represent punctate hemorrhagic components. Ventricles and sulci are prominent consistent with severe atrophy. There is no extra-axial collection or midline shift. Sinuses are clear. There is no acute bony abnormality. CT/Brain/Head without Contrast IMPRESSION: There is a developing infarct in the left posterior parietal and occipital lobe s measuring 7 x 3 cm, similar to the prior. There is development of focal punctate increased density in the periphery of the midp ortion, axial image 35/55, which may represent punctate hemorrhagic components, new. Critical results were discussed with Kristy by Nicolle at the time of dictat ion. Reading Location: [facility]
--- NOTE | 2025-05-10 10:11 | CT_ITS ---
PROCEDURE: Bilateral renal cysts as described. Prior splenectomy. 05/10/2025 REASON FOR EXAM: ANEMIA History of recent hip surgery. TECHNIQUE: ABDOMEN/PELVIS W IV CONT ONLY. Coronal and Sagittal reconstruction series were provided. CONTRAST: Isovue-300 VOLUME: 100 mL One or more dose reduction techniques were used (e.g., Automated exposure control, adjustment of the mA and/or kV according to patient size, use of iterative reconstruction technique. RADIATION DOSE SUMMARY: CTDlvol: 28 mGy DLP: 2844.49 mGycm COMPARISON: None FINDINGS: Lung bases: Mild increased linear markings at the lung bases more prominent on the right side suggestive of scarring. There is elevation of the left hemidiaphragm. Liver: Unremarkable. Gallbladder: Questionable sludge or tiny gallstones along the dependent portion of the gallbladder lumen. Spleen: Prior splenectomy. Pancreas: Diffuse fatty atrophy. Adrenals: Unremarkable Kidneys: There is a 5.2 cm by 2.8 cm cyst in the lateral aspect of the right kidney. There is a 4.1 cm x 4.8 cm cyst in the upper lateral aspect of the left kidney. There is evidence of a 9.1 cm by 2.9 cm cystic structure along the posterior aspect of the right kidney. This may represent a pedunculated left renal cyst. Bladder: Distended urinary bladder. Bowel: Colonic diverticulosis without diverticulitis. Appendix: Patient is status post appendectomy. Lymph nodes: Unremarkable. Vasculature: Mild diffuse atherosclerotic calcifications are noted. Peritoneum / Retroperitoneum: Unremarkable Bones: Degenerative changes of the spine. 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 Status post bilateral hip replacements. CT/Abdomen/Pelvis W IV Cont ONLY IMPRESSION: There is elevation of the left hemidiaphragm. Findings suggestive of sludge in the gallbladder lumen. Reading Location: [facility]
--- NOTE | 2025-05-10 10:12 | EKG12_ITS ---
Test Reason : sob Blood Pressure : */* mmHG Vent. Rate : 94 BPM Atrial Rate : 94 BPM P-R Int : 120 ms QRS Dur : 124 ms QT Int : 382 ms P-R-T Axes : 34 -6 152 degrees QTcB Int : 477 ms Sinus rhythm with Premature supraventricular complexes Non-specific intra-ventricular conduction delay ST & T wave abnormality, consider lateral ischemia Abnormal ECG Confirmed by NATALIO MALCOLM, CHERRY ([id number]), dictionary editor ADRIANNA MADRIGAL ([id number]) on 05/11/2025 11:13:57 AM Referred By: Confirmed By: CHERRY LANCE MD
[2025-05-10 10:34] LABS: Absolute Lymphocyte Count 1.04 X10^3/uL (0.83-4.51); Absolute Neutrophil Count 12.5 X10^3/uL (2.0-7.7); Basophil# 0.01 X10^3/uL; Basophil% 0.1 % (0-1); Lymphocyte # 1.04 X10^3/ul (0.83-4.51); Lymphocyte % 7.2 % (19-41); Mean Corp Hgb Conc 30.7 g/dL (32-36); Mean Corpuscular Hgb 33.6 pg (27.0-32.0); Mean Corpuscular Volume 109.5 fL (80-94); Mean Platelet Vol. 11.6 fl (6.2-12.0); Monocyte# 0.71 X10^3/uL; Monocyte% 4.9 % (0-10); NRBC Flagged by Analyzer 16.7 % (0-5); Neutrophil # 12.45 X10^3/uL (2.7-7.7); Neutrophil % 86.8 % (47-70); POSITIVE COUNT YES; POSITIVE MORPHOLOGY YES; Platelet Count 440 K/mm3 (150-450); RBC Distribution Width CV 21.8 % (11.6-14.6); RBC Distribution Width SD 67.7 fl (35.1-43.9); Red Blood Count 1.37 M/mm3 (4.6-6.2); White Blood Count 14.4 K/mm3 (4.4-11.0)
[2025-05-10 10:35] LABS: Differential Indicated SCAN CRITERIA MET; Hemoglobin 4.6 g/dL (13.0-16.5)
[2025-05-10] MEDS: 0.9% Normal Saline (500mL Bag) 500 ML 999 ML IV (10:35)
[2025-05-10 10:45] LABS: International Normalized Ratio 1.8; Prothrombin Time (Protime)PT. 20.8 SECONDS (11.7-14.9)
[2025-05-10 10:46] LABS: Partial Thromboplast Time 30.4 Seconds (24.1-36.2)
[2025-05-10 10:57] LABS: Lactic Acid 2.7 mmol/L (0.0-2.0)
[2025-05-10 10:57] LABS: Anisocytosis 2+; Differential Comment SCANNED
[2025-05-10 10:58] LABS: Polychromasia 1+
[2025-05-10 11:15] LABS: ALB/GLOB Ratio 1.2 RATIO (0.9-2.4); AST(SGOT) 48 U/L (<=37); Alanine Aminotransfer ALT/SGPT 29 U/L (<=46); Albumin, Serum 2.7 g/dL (3.4-4.8); Alkaline Phosphatase 111 U/L (40-129); Anion Gap 13 (5-15); BUN 108 mg/dL (4-19); Calcium,Total 7.8 mg/dL (7.6-11.0); Carbon Dioxide 19.4 mmol/L (21.0-32.0); Chloride 124 mmol/L (98-108); Creatinine, Serum 2.84 mg/dL (0.70-1.20); EST Glomerular Filtration Rate 21 (>60); Estimated Creatinine Clearance 17.78 ml/min (50-250); Globulin 2.3 g/dL (2.2-4.2); Glucose 171 mg/dL (70-99); Potassium 4.7 mmol/L (3.3-5.1); Sodium Level 156 mmol/L (133-145); Total Bilirubin 0.61 mg/dL (0.00-1.30); Troponin T High Sensitivity 143 ng/L (<=22)
[2025-05-10 11:43] LABS: Pro- Brain NATRIURETIC PEPTIDE 2527 pg/mL (<=1800)
[2025-05-10] MEDS: Lorazepam 2 MG/ML WCH Syringe 0.5 MG IV ×2 (11:55→16:00)
--- NOTE | 2025-05-10 12:08 | EDS_ITS ---
HPI History of Present Illness Chief Complaint: Shortness of Breath Narrative Narrative: Patient is a 85-year-old male with past medical history of hypertension, type 2 diabetes, Alzheimer's disease, hyperlipidemia, recent stroke after hip replacement who presents to the emergency department the chief complaint of low oxygen levels, altered mental status with increased agitation. History of present illness was unobtainable from the patient secondary to his altered mental status therefore acute care caveat applies [facility] Medical History Anxiety and depression COVID-19 Former smoker Degenerative disc disease, cervical Benign prostate hyperplasia Left bundle branch block Mild cognitive impairment with memory loss Alzheimer's disease Hypertension DM2 (diabetes mellitus, type 2) HTN (hypertension) Gout Heart failure with reduced ejection fraction Hairy cell leukemia Hyperlipidemia Home Medications ?Medication ?Instructions ?Recorded ?Last Taken ?Type paroxetine HCl 10 mg tablet 10 mg PO DAILY anxiety 10/0504/23/25 History allopurinol 300 mg tablet 300 mg PO DAILY GOUT 8 04/23/25 History (Zyloprim) cholecalciferol (vitamin D3) 25 25 mcg PO DAILY ordere d 05/14/23 04/23/25 History mcg (1,000 unit) tablet acetaminophen 500 mg tablet 1,000 mg (2 x 500 mg) PO Q 8 #0 tabs 05/06/25 Unknown Rx aspirin 81 mg chewable tablet 81 mg PO BREAKFAST #0 ta bs 05/06/25 Unknown Rx atorvastatin 10 mg tablet 40 mg (4 x 10 mg) PO QHS 04/23/25 Rx CHOLESTEROL #30 tabs food supplemt, lactose-reduced 120 ml PO TIDCM #0 mL 0 05/06/25 Unknown Rx 0.08 gram-1.5 kcal/mL oral liquid (Ensure Plus High Protein) ipratropium 0.5 mg-albuterol 3 mg 3 ml inhalation TID PRN shortness 05/06/25 Unknown Rx (2.5 mg base)/3 mL nebulization of breath #0 mL
--- NOTE | 2025-05-10 12:08 | EX.ED.DYSGE1 ---
HPI History of Present Illness Chief Complaint: Shortness of Breath Narrative Narrative: Patient is a 85-year-old male with past medical history of hypertension, type 2 diabetes, Alzheimer's disease, hyperlipidemia, recent stroke after hip replacement who presents to the emergency department the chief complaint of low oxygen levels, altered mental status with increased agitation. History of present illness was unobtainable from the patient secondary to his altered mental status therefore acute care caveat applies [facility] Medical History Anxiety and depression COVID-19 Former smoker Degenerative disc disease, cervical Benign prostate hyperplasia Left bundle branch block Mild cognitive impairment with memory loss Alzheimer's disease Hypertension DM2 (diabetes mellitus, type 2) HTN (hypertension) Gout Heart failure with reduced ejection fraction Hairy cell leukemia Hyperlipidemia Home Medications ?Medication ?Instructions ?Recorded ?Last Taken ?Type paroxetine HCl 10 mg tablet 10 mg PO DAILY anxiety 11/28/17 04/23/25 History allopurinol 300 mg tablet 300 mg PO DAILY GOUT 04/30/18 04/23/25 History (Zyloprim) cholecalciferol (vitamin D3) 25 25 mcg PO DAILY ordered 05/14/23 04/23/25 History mcg (1,000 unit) tablet acetaminophen 500 mg tablet 1,000 mg (2 x 500 mg) PO Q8 #0 tabs 05/06/25 Unknown Rx aspirin 81 mg chewable tablet 81 mg PO BREAKFAST #0 tabs 05/06/25 Unknown Rx atorvastatin 10 mg tablet 40 mg (4 x 10 mg) PO QHS 05/06/25 04/23/25 Rx CHOLESTEROL #30 tabs food supplemt, lactose-reduced 120 ml PO TIDCM #0 mL 05/06/25 Unknown Rx 0.08 gram-1.5 kcal/mL oral liquid (Ensure Plus High Protein) ipratropium 0.5 mg-albuterol 3 mg 3 ml inhalation TID PRN shortness 05/06/25 Unknown Rx (2.5 mg base)/3 mL nebulization of breath #0 mL soln pantoprazole 40 mg tablet,delayed 40 mg PO DAILY #0 tabs 05/06/25 Unknown Rx release quetiapine 25 mg tablet 25 mg PO BID #0 tabs 05/06/25 Unknown Rx donepezil 10 mg tablet 10 mg PO QHS 05/10/25 Unknown History doxazosin 1 mg tablet (Cardura) 1 mg PO QHS 05/10/25 Unknown History glucagon HCl 1 mg solution for 1 mg IM Q20M PRN hypoglycemia 05/10/25 Unknown History injection (Glucagon (HCl) Emergency Kit) memantine 10 mg tablet 10 mg PO BID 05/10/25 Unknown History Allergy/AdvReac Type Severity Reaction Status Date / Time gabapentin Allergy tremors Verified 05/10/25 09:56 metoprolol (From Toprol XL) Allergy PT UNSURE Verified 05/10/25 09:56 OF REACTION ramipril (From Altace) Allergy PT UNSURE Verified 05/10/25 09:56 OF REACTION Family History Mother Cancer Father Heart disease Hypertension Surgical History History of left hip replacement History of parathyroid surgery Hx of splenectomy History of appendectomy H/O total hip arthroplasty Social History household members: spouse Smoking Status: Never smoker alcohol intake: never substance use type: does not use ROS ROS ED ROS Narrative Review of systems unobtainable from the patient secondary to his altered mental status therefore acute care caveat applies EXAM Physical Exam Narrative Exam Narrative: General: Patient was lying in bed did appear to be agitated overall Head: Atraumatic, normocephalic Eyes: PERRL bilaterally, no conjunctival injection noted Neck: Soft, supple, trachea midline Cardiovascular: Regular rate and rhythm no murmurs gallops rubs noted Respiratory: Diminished breath sounds bilaterally Abdomen: Soft, nondistended Extremities: Patient moving all extremities, radial pulses +2/4 in bilateral extremities Neurological: Patient was agitated and altered according to at bedside Skin: Warm, dry, tact no rashes or lesions noted Const Vital Signs: 05/10/25 09:43 05/10/25 09:53 05/10/25 09:55 Temperature 98.5 F 98.5 F Temperature Source Axillary Axillary Pulse Rate 96 96 Respiratory Rate 30 H 30 H Respiratory Effort Respiratory Depth Respiratory Pattern Blood Pressure 139/112 H 139/112 H Blood Pressure Mean 121 121 Pulse Ox 100 100 88 Oxygen Delivery Method Non-Rebreather Non-Rebreather Non-Rebreather Oxygen Flow Rate (L/min) 15 15 15 Fraction of Inspired Oxygen (FIO2) 05/10/25 10:02 05/10/25 10:12 05/10/25 10:16 Temperature Temperature Source Pulse Rate 97 Respiratory Rate 22 H Respiratory Effort Short of Breath Labored Accessory Muscle Use Respiratory Depth Shallow Respiratory Pattern Tachypnea Blood Pressure 109/96 H Blood Pressure Mean 100 Pulse Ox 100 Oxygen Delivery Method Non-Rebreather Bi-pap Oxygen Flow Rate (L/min) 15 Fraction of Inspired Oxygen (FIO2) 05/10/25 10:23 05/10/25 10:30 05/10/25 11:00 Temperature Temperature Source Pulse Rate 93 92 91 Respiratory Rate 25 H 27 H Respiratory Effort Respiratory Depth Respiratory Pattern Tachypnea Blood Pressure 124/111 H Blood Pressure Mean 115 Pulse Ox 100 100 100 Oxygen Delivery Method Non-Rebreather Oxygen Flow Rate (L/min) 15 Fraction of Inspired Oxygen (FIO2) 50 05/10/25 12:00 05/10/25 12:30 05/10/25 13:00 Temperature Temperature Source Pulse Rate 100 82 78 Respiratory Rate 26 H 31 H Respiratory Effort Respiratory Depth Respiratory Pattern Blood Pressure 131/114 H 139/106 H Blood Pressure Mean 119 117 Pulse Ox 100 100 Oxygen Delivery Method Nasal Cannula Nasal Cannula Oxygen Flow Rate (L/min) 15 15 Fraction of Inspired Oxygen (FIO2) 05/10/25 13:30 05/10/25 14:30 05/10/25 15:00 Temperature Temperature Source Pulse Rate 80 78 79 Respiratory Rate 31 H 30 H 27 H Respiratory Effort Respiratory Depth Respiratory Pattern Blood Pressure 141/107 H 119/73 135/102 H Blood Pressure Mean 118 88 113 Pulse Ox 100 100 100 Oxygen Delivery Method Nasal Cannula Nasal Cannula Oxygen Flow Rate (L/min) 15 15 Fraction of Inspired Oxygen (FIO2) MDM MDM MDM Narrative Medical decision making narrative: Patient is a 85-year-old male who presented to the emergency department via EMS with a chief complaint of shortness of breath altered mental status and not feeling well. On the differential diagnosis includes but limited to intracranial hemorrhage, pneumothorax, PE, ACS, pneumonia, CHF. Once workup is obtained reviewed he will be reevaluated. did arrive at bedside and we discussed CODE STATUS and she states that she would like to go DNR CCA DO NOT INTUBATE. Patient will not be given 30 cc/kg bolus of IV fluids secondary concern for hypervolemic state. She did notify me that he recently had a hip replacement and while having surgery he had a large stroke which she was sent to a rehab facility for states that he was on chronic nasal cannula however she cannot tell me how many liters. Patient's CBC was reviewed showed a white blood count of 14,000, hemoglobin of 4.6 which is consistent with the earlier blood drawl, platelet count of 440. Patient's INR was 1.8. Patient sodium was elevated and getting hyponatremia at 156, potassium 4.7, creatinine was 2.84 this appears to be around his baseline BUN of 108. Patient lactic acid elevated 2.7, AST and ALT are 40 and 29 respectively. Patient troponin was noted be 143, EKG was reviewed showed multiple areas of artifact showed sinus rhythm with a rate of 94 bpm. Patient's AST and ALT are 48 and 29 respectively, proBNP elevated 2527. Patient's CT head and brain without contrast reviewed and showed developing infarct in the left posterior parietal and occipital lobes measuring 7 x 3 cm which similar to prior there is development of focal punctate increased density in the periphery of the midportion may represent punctate hemorrhage. Patient CT abdomen pelvis with IV contrast reviewed showed elevation of left hemidiaphragm findings suggest sludge in the gallbladder lumen. I went back in and discussed these results at this point with the at bedside and she would ultimately like to make him comfortable and placed him on hospice. Will discuss case with hospitalist for admission. Discussed case with hospitalist Dr. Basilio who is requesting consulting hospitalist and seeing if they will take him to the inpatient unit prior to admitting here to the hospital. I am waiting further recommendations from hospice at this point time 1:27 PM Hospice came in and evaluated the patient at bedside and they are planning to make arrangements to take him to the inpatient unit. All question concerns were answered at bedside. Lab Data Labs: Laboratory Results - last 24 hr 05/10/25 05/10/25 05/10/25 09:30 09:50 10:13 WBC 14.4 H RBC 1.37 L Hgb 4.6 L* Hct 15.0 L MCV 109.5 H MCH 33.6 H MCHC 30.7 L RDW Std Deviation 67.7 H RDW Coeff of Eduarda 21.8 H Plt Count 440 MPV 11.6 Immature Gran % (Auto) 1.000 H Neut % (Auto) 86.8 H Lymph % (Auto) 7.2 L Sauk % (Auto) 4.9 Eos % (Auto) 0.0 Baso % (Auto) 0.1 Absolute Neuts (auto) 12.5 H Absolute Lymphs (auto) 1.04 Nucleated RBC % 16.7 H Differential Comment SCANNED Polychromasia 1+ Anisocytosis 2+ PT 20.8 H INR 1.8 APTT 30.4 Sodium 156 H Potassium 4.7 Chloride 124 H Carbon Dioxide 19.4 L Anion Gap 13 BUN 108 H* Creatinine 2.84 H Estim Creat Clear Calc 17.78 L Est GFR (MDRD) Non-Af 21 L BUN/Creatinine Ratio 38.0 H Glucose 171 H Lactic Acid 2.7 H* Calcium 7.8 Total Bilirubin 0.61 AST 48 H ALT 29 Alkaline Phosphatase 111 Troponin T High Sens 143 H* Troponin T Hi Sens 2 Hr NT pro BNP II 2527 H Total Protein 5.0 L Albumin 2.7 L Globulin 2.3 Albumin/Globulin Ratio 1.2 Blood Type O POSITIVE Antibody Screen NEGATIVE Crossmatch See Detail 05/10/25 14:12 WBC RBC Hgb Hct MCV MCH MCHC RDW Std Deviation RDW Coeff of Eduarda Plt Count MPV Immature Gran % (Auto) Neut % (Auto) Lymph % (Auto) Sauk % (Auto) Eos % (Auto) Baso % (Auto) Absolute Neuts (auto) Absolute Lymphs (auto) Nucleated RBC % Differential Comment Polychromasia Anisocytosis PT INR APTT Sodium Potassium Chloride Carbon Dioxide Anion Gap BUN Creatinine Estim Creat Clear Calc Est GFR (MDRD) Non-Af BUN/Creatinine Ratio Glucose Lactic Acid Calcium Total Bilirubin AST ALT Alkaline Phosphatase Troponin T High Sens Troponin T Hi Sens 2 Hr 127 H* NT pro BNP II Total Protein Albumin Globulin Albumin/Globulin Ratio Blood Type Antibody Screen Crossmatch Radiography Diagnostic Testing: Clinical Impression(s) from Imaging Studies Abdomen/Pelvis CT 05/10/25 10:11 IMPRESSION: There is elevation of the left hemidiaphragm. Findings suggestive of sludge in the gallbladder lumen. Reading Location: [id number] Brain CT 05/10/25 10:11 IMPRESSION: There is a developing infarct in the left posterior parietal and occipital lobes measuring 7 x 3 cm, similar to the prior. There is development of focal punctate increased density in the periphery of the midportion, axial image 35/, which may represent punctate hemorrhagic components, new. Critical results were discussed with Kristy by Nicolle at the time of dictation. Reading Location: [facility] Chest CTA 05/10/25 10:11 IMPRESSION: No evidence of pneumothorax. Elevation of the left hemidiaphragm. Linear atelectasis and/or scarring at the lung bases. Reading Location: [id number] Discharge Plan Triage Chief Complaint: Shortness of Breath ED Provider: Chris Wagner Dx/Rx/DC Orders Clinical Impression: Intracranial hemorrhage, Chronic systolic heart failure, Chronic kidney disease, History of stroke, Acute hypernatremia, Anemia Prescriptions: No Action cholecalciferol (vitamin D3) 25 mcg (1,000 unit) tablet 25 mcg PO DAILY allopurinol [Zyloprim] 300 MG tablet 300 mg PO DAILY paroxetine HCl 10 MG tablet 10 mg PO DAILY donepezil 10 mg tablet 10 mg PO QHS memantine 10 mg tablet 10 mg PO BID doxazosin [Cardura] 1 mg tablet 1 mg PO QHS glucagon HCl [Glucagon (HCl) Emergency Kit] 1 mg recon soln 1 mg IM Q20M PRN (Reason: hypoglycemia) Rx Instructions: until target blood sugar attained acetaminophen 500 mg Tablet 1,000 mg PO Q8 Qty: 0 0RF aspirin 81 mg Tablet,Chewable 81 mg PO BREAKFAST Qty: 0 0RF Rx Instructions: Take once daily and on 05/10 discontinue Eliquis and take 81 mg of aspirin twice daily for 14 days, decrease to once daily thereafter Ensure Plus High Protein 0.08 gram-1.5 kcal/mL Liquid 120 ml PO TIDCM Qty: 0 0RF atorvastatin 10 MG tablet 40 mg PO QHS Qty: 30 0RF Patient Comments: high cholesterol quetiapine 25 mg Tablet 25 mg PO BID Qty: 0 0RF ipratropium-albuterol 0.5 mg-3 mg(2.5 mg base)/3 mL Solution For Nebulization 3 ml inhalation TID PRN (Reason: shortness of breath) Qty: 0 0RF pantoprazole 40 mg Tablet,Delayed Release (Dr/Ec) 40 mg PO DAILY Qty: 0 0RF Primary Care Provider: Fei Mullins Referrals: Fei Mullins MD [Primary Care Provider] - Print Language: Arabic Disposition Disposition: Hospice in Medical Facility
--- NOTE | 2025-05-10 12:25 | ED.RN ---
Dr. Wagner gave verbal order to hold blood transfusion until he speaks with hospitalist
[2025-05-10] MEDS: Ondansetron 4 MG/2 ML Vial IV (12:34)
[2025-05-10] MEDS: Morphine 2 MG/ML Syringe IV (12:34)
[2025-05-10 14:26] LABS: Reflex Lactate? Y
[2025-05-10 15:23] LABS: Troponin T High Sens 2 HR 127 ng/L (<=22)
[2025-05-10 15:48] LABS: Lactic Acid 1.5 mmol/L (0.0-2.0)
== END 2025-05-10 17:35 | disposition hospice, inpatient (51) ==
PROVIDERS: Emergency Provider Emergency Medicine; PCP Family Medicine; Visit Provider Emergency Medicine
DX: I61.9 Nontraumatic intracerebral hemorrhage, unspecified (principal); I13.0 Hypertensive heart and chronic kidney disease with heart failure and stage 1 through stage 4 chronic kidney disease, or unspecified chronic kidney disease; I50.22 Chronic systolic (congestive) heart failure; G30.9 Alzheimer's disease, unspecified; F02.83 Dementia in other diseases classified elsewhere, unspecified severity, with mood disturbance; F02.84 Dementia in other diseases classified elsewhere, unspecified severity, with anxiety; E11.22 Type 2 diabetes mellitus with diabetic chronic kidney disease; E87.0 Hyperosmolality and hypernatremia; D64.9 Anemia, unspecified; N18.9 Chronic kidney disease, unspecified; E78.5 Hyperlipidemia, unspecified; M10.9 Gout, unspecified; Z66 Do not resuscitate; Z86.73 Personal history of transient ischemic attack (TIA), and cerebral infarction without residual deficits; Z79.82 Long term (current) use of aspirin; Z79.899 Other long term (current) drug therapy
CPT/HCPCS: 70450; 71275; 74177; 80053; 83605; 83880; 84484; 85025; 85610; 85730; 86850; 86900; 86901; 87040; 93005; 94002; 96361; 96374; 96375; 96376; 99285; Q9967; A4216; J2405

== ENCOUNTER → 2025-05-10 | Outpatient (REF) | payer MEDICARE, SELFPAY ==
--- OUTSIDE RECORDS SUMMARY | 2025-05-10 03:34 | XMS RPT_ITS | CCD ---
Author Organization [facility] CliniSyal Care Team Providers Care Java Web Architect Name Role Phone Baron Espinoza MD Primary Care Provider VALERIE MUNOZ Attending Unavailable VALERIE MUNOZ Admitting Unavailable BARON ESPINOZA Primary Care Unavailable Dr. Baron Espinoza Primary Care Provider Dr. Christiano Eastman Emergency Provider Dr. Paty Morgan Admit Provider Dr. Paty Morgan Other Provider Dr. James Griffiths Attending Provider Dr. James Griffiths Other Provider Baron Espinoza MD Primary Care Provider Rock BRICK DROPPER.Meka SAHU Unavailable Baron Espinoza MD Unavailable Harinder Isaac RN Unavailable Baron Espinoza MD Primary Care Provider Chapin BRICK DROPPER.Meka SAHU Unavailable Carlie BRICK DROPPER.PROCESS LINE OPERATOR, Alex BOLDEN Primary Care Provider DUNG GAONA Attending UnavailBARON Walker Primary Care Unavailable DUNG GAONA Attending UnavailBARON Walker Primary Care Unavailable Haagen BRICK DROPPER.Bisi SAHU Unavailable Suppan BRICK DROPPER.Selena SAHU A Unavailable Suppan BRICK DROPPER.Alea SAHUline A Unavailable BARON ESPINOZA Attending Unavailable SELF Referring Unavailable BARON ESPINOZA Primary Care Unavailable TESTRAKE, LORI Attending Unavailable TESTRAKE, LORI Referring Unavailable OLGA, BARON Wick Primary Care Unavailable TESTRAKE, LORI Attending Unavailable TESTRAKE, LORI Referring Unavailable OLGA, BARON Wick Primary Care Unavailable TESTRAKE, LORI Attending Unavailable OLGA, BARON Wick Primary Care Unavailable TESTRAKE, LORI Attending Unavailable OLGA, BARON Wick Primary Care Unavailable OLGA, BARON Wick Referring Unavailable OLGA, BARON Wick Primary Care Unavailable Olga MALCOLM, Dr. Hardy Primary Care Provider Dr. Aubrey Pascual DO Emergency Provider Eddie MALCOLM, Dr. Paty West Admit Provider Eddie MALCOLM, Dr. Paty West Attending Provider Eddie MALCOLM, Dr. Paty West Other Provider Ruben MALCOLM, Dr. Garcia Other Provider Per PEREA, Dr. Alfonso Thoams Other Provider [phone] Melissa MALCOLM, Dr. Scott Other Provider Mayra MALCOLM, Dr. Bullock Other Provider [phone] Donald FLAME CUTTING MACHINE OPERATOR HELPER-C, Naima Other Provider Unavailabl edward Rollins FLAME CUTTING MACHINE OPERATOR HELPER-C, Karli Other Provider [phone] Edita Valadez Other Provider Jamie MALCOLM, Dr. Carbajal Attending Provider Luan PEREA, Dr. Porras Other Provider Ernie MALCOLM, Dr. Ibanez Attending Provider Ernie MALCOLM, Dr. Ibanez Other Provider Dr. Vern Rao DO Attending Provider Dr. Kolby Cr MD Attending Provider Dr. Vern Rao DO Referring Provider Jamie MALCOLM, Dr. Carbajal Other Provider Olga, Baron Primary Care Unavailable Paty Morgan Consulting Unavailable Paty Morgan Admitting Unavailable Raven Ayala Attending Unavailable Jose Miranda Consulting Unavailable Alfonso Albarado Consulting Unavailable Sonia Torres Consulting Unavailable Mayra Ara Consulting Unavailable Donald, Naima Consulting Unavailable Ayo OBRIEN, Karli Consulting Unavailable Maile, Edita Consulting Unavailable Vern Rao Consulting Unavailable Vern Rao Attending Unavailable [facility] Unavailable Paty Morgan Admitting Unavailable Paty Morgan Consulting Unavailable Jose Miranda Consulting Unavailable Vern Rao Consulting Unavailable [facility] Unavailable Vern Rao Referring Unavailable Kolby Cr Attending Unavailable [facility] Unavailable Marcelle Klein Attending UnavailAlfonso Ragland Consulting Unavailable Melissa, Sonia Consulting Unavailable Nunez, Ara Consulting Unavailable Donald, Naima Consulting Unavailable Ayo OBRIEN, Karli Consulting Unavailable Masci, Edita Consulting Unavailable Raven Ayala Attending Unavailable Raevn Ayala Consulting Unavailable [facility] Unavailable Dedrick Andrade Attending Unavailable Wilfred Vázquez III Referring Unavailable [facility] Referring Unavailable [facility] Unavailable Dedrick Andrade Attending Unavailable Paty Morgan Attending Unavailable Marcelle Klein Consulting Unavailabl edward Allergies Allergy Classification Reported Allergen(s) Allergy Type Date of Onset Reaction(s) Facility (20 sources) gabapentin; Translations: [GABAPENTIN] Drug Allergy 3 Other: See Comments [facility] Comment on above: tremors (20 sources) Metoprolol; Translations: [METOPROLOL SUCCINATE] Drug Allergy 5 [facility] (20 sources) Ramipril; Translations: [RAMIPRIL] Drug Allergy 5 PT UNSURE OF REACTION [facility] (4 sources) Metoprolol Drug Allergy 3 PT UNSURE OF REACTION [facility] (1 source) gabapentin Drug Allergy 5 [facility] (1 source) Metoprolol Drug Allergy 5 [facility] (1 source) Ramipril Drug Allergy 5 [facility] Medications Current Medications Medication Drug Class(es) Dates Sig (Normalized) Sig (Original) acetaminophen 500 mg oral tablet (20 sources) Start: 05-06-2025 take 2 tablets by mouth every eight hours Acetaminophen 500 mg Tablet Active 1000 mg PO EVERY 8 HOURS 0 May 06, 2025 12:00am Start: 05-28-2021 End: 05-12-2024 take 1 tablet by mouth every six hours as needed for pain Acetaminophen 500 mg Tablet Discontinued 500 mg PO EVERY 6 HOURS as needed for Pain May 28, 2021 12:00am May 12, 2024 11:24am Start: 08-22-2018 End: 08-22-2018 take 2 tablets by mouth every eight hours Acetaminophen 500 MG tablet Discontinued 1000 mg PO EVERY 8 HOURS August 22, 2018 12:00am August 24, 2018 12:00am August 22, 2018 12:14pm Start: 08-22-2018 End: 08-22-2018 take 1000 mg by mouth every eight hours Acetaminophen Discontinued 1000 MG PO EVERY 8 HOURS August 22, 2018 12:00am August 22, 2018 12:14pm Start: 11-23-2015 End: 04-18-2017 Acetaminophen (Tylenol) 325 MG tablet Discontinued 650 mg PO EVERY 6 HOURS NEEDED as needed for Mild Pain (scale 0-3)/T>100.7 November 23, 2015 1:00am April 18, 2017 3:14pm Start: 11-23-2015 End: 04-18-2017 take 2 tablets by mouth every six hours as needed Acetaminophen (Tylenol) 325 MG tablet Discontinued 650 MG PO EVERY 6 HOURS NEEDED November 23, 2015 1:00am April 18, 2017 3:14pm Comment on above: Take 1 tablet by alex every 6 hours as needed for pain. albuterol 0.833 mg/ml / ipratropium bromide 0.167 mg/ml inhalation solution (1 source) Anticholinergic, beta2-Adrenergic Agonist Start: 05-06-20 take 1 mL by inhalation three times daily as needed Ipratropium-Albuter ol 0.5 mg-3 mg(2.5 mg base)/3 mL Solution For Nebulization Active 3 mL INHALATION THREE TIMES A DAY as needed for shortness of breath 0 May 06, 2025 12:00am allopurinol 300 mg oral tablet (20 sources) Xanthine Oxidase Inhibitor Start: 04-30-20 End: 03-24-20 24 take 1 tablet by mouth once daily Allopurinol (Zyloprim) 300 MG tablet Active 300 mg PO DAILY April 30, 2018 12:00am Comment on above: TAKE 1 TABLET BY ALEX TH ONCE DAILY. FOR GOUT. apixaban 5 mg oral tablet (1 source) Factor Xa Inhibitor Start: 05-06-20 Apixaban (Eliquis) 5 mg Tablet Active 2.5 mg PO TWICE A DAY 3 May 06, 2025 12:00am Take through 05/09 then aspirin 81mg BID as detailed aspirin 81 mg chewable tablet (1 source) Platelet Aggregation Inhibitor, Nonsteroidal Anti-inflammatory Drug Start: 05-06-20 Aspirin 81 mg Tablet,Chewable Active 81 mg PO WITH BREAKFAST 0 May 06, 2025 12:00am Take once daily and on 05/10 discontinue Eliquis and take 81 mg of aspirin twice daily for 14 days, decrease to once daily thereafter atorvastatin 10 mg oral tablet (20 sources) HMG-CoA Reductase Inhibitor Start: 05-06-20 take 4 tablets by mouth at bedtime Atorvastatin 10 MG tablet Active 40 mg PO AT BEDTIME May 06, 2025 1:31pm Start: 11-20-2015 End: 05-06-2025 take 1 tablet by mouth at bedtime Atorvastatin 10 MG tablet Discontinued 10 mg PO AT BEDTIME November 20, 2015 1:00am May 06, 2025 1:32pm Comment on above: Take 1 tablet by alex th once daily. betamethasone 0.5 mg/ml / clotrimazole 10 mg/ml topical cream (2 sources) Azole Antifungal, Corticosteroid Start: End: clotrimazole-betametha sone (LOTRISONE) cream Apply to affected area two times a day. APPLY TO AFFECTED AREA 45 g 5 02/20/2024 03/21/2024 Active Comment on above: Apply to affected ar ea two times a day. APPLY TO AFFECTED AREA cholecalciferol 0.025 mg oral tablet (20 sources) Vitamin D Start: take 1 tablet by mouth once daily Cholecalciferol (Vitamin D3) 25 mcg (1,000 unit) tablet Active 25 ug PO DAILY May 14, 2023 12:00am Start: 03-19-2023 take [address] [facility] once daily Cholecalciferol, Vitamin D3, 25 mcg (1,000 unit) cap Take 1,000 Units by mouth once daily. 03/19/2023 Active Start: 03-19-2023 Cholecalcifero l, Vitamin D3, (VITAMIN D) 25 mcg (1,000 unit) cap Take 1,000 Units by mouth once daily. 0 03/19/2023 Active Comment on above: Take 1,000 Units by mouth once daily. donepezil hydrochloride 10 mg oral tablet (20 [...] 3 03/20/2021 08/15/2022 Discontinued Start: 11-28-2017 take 2 tablets by mo uth at bedtime Donepezil 5 MG tablet Active 10 mg PO AT BEDTIME November 28, 2017 1:00am Start: 11-28-2017 take 10 mg by mouth at bedtime Donepezil Active 10 MG PO AT BEDTIME November 28, 2017 1:00am Comment on above: Take 1 tablet by alex th daily at bedtime. 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 90 tablet 3 03/08/2025 Active Start: 11-20-2015 End: 03-31-2023 take 1 tablet by mouth at bedtime Doxazosin 1 MG table t Active 1 mg PO AT BEDTIME November 20, 2015 1:00am Comment on above: Take 1 tablet by alex th daily at bedtime. Food Supplemt, Lactose-Reduced (Ensure Plus High Protein) 0.08 gram-1.5 kcal/mL Liquid (1 source) Start: Food Supplemt, Lactose-Reduced (Ensure Plus High Protein) 0.08 gram-1.5 kcal/mL Liquid Active 120 mL PO 3 TIMES DAILY WITH MEALS 0 May 06, 2025 12:00am memantine hydrochloride 10 mg oral tablet (20 sources) C-szjkue-Q-aspartate Receptor Antagonist Start: 3 End: take 1 tablet by mouth twice daily memantine (NAMENDA) 10 mg tablet Take 1 tablet by mouth two times a day. 180 tablet 2 01/29/2025 Active Start: 02-21-2023 End: 08-01-2023 take 1 tablet by mouth twice daily memantine (NAMENDA) 10 mg tablet Take 1 tablet by mouth twice daily. 90 tablet 3 08/01/2023 Active Start: 06-30-2021 End: 03-22-2022 take 1 tablet by mouth twice daily memantine (NAMENDA) 5 mg tablet Take 1 tablet by mouth twice daily. 60 tablet 5 06/30/2021 03/22/2022 Discontinued Start: 05-26-2021 End: 02-21-2023 take 2 tablets by mouth twice daily Memantine 5 mg tablet Active 10 mg PO TWICE A DAY May 26, 2021 12:00am Start: 05-26-2021 take 10 mg by mouth twice shai y Memantine Active 10 MG PO TWICE A DAY May 26, 2021 12:00am Comment on above: Take 1 tablet by alex th twice daily. take 1 tablet by alex twice a day Take 2 tabs in am an d one in pm po for one week and then two tabs bid after. Take 1 tablet by alex th two times a day. pantoprazole 40 mg delayed release oral tablet (1 source) Proton Pump Inhibitor Start: 5 take 1 tablet by mouth once daily Pantoprazole 40 mg Tablet,Delayed Release (Dr/Ec) Active 40 mg PO DAILY 0 May 06, 2025 12:00am PARoxetine hydrochloride 10 mg oral tablet (20 sources) Serotonin Reuptake Inhibitor Start: End: 4 take 1 tablet by mouth once daily Paroxetine Hcl 10 MG tablet Active 10 mg PO DAILY November 28, 2017 1:00am Start: 11-20-2015 End: 04-18-2017 take 1 tablet by mouth once daily Paroxetine Hcl 20 MG tablet Discontinued 20 mg PO DAILY November 20, 2015 1:00am April 18, 2017 3:16pm Comment on above: Take 1 tablet by alex th once daily. perflutren lipid microspheres 1.3 mL [...] PHENYLephrine 2.5 % 1 Drop (AK-DILATE, MAUREEN-SYNEPHRINE) proparacaine hydrochloride 5 mg/ml ophthalmic solution (1 source) Local Anesthetic Start: 01-01-2024 End: 01-01-2024 proparacaine 0.5 % 1 Drop (ALCAINE) QUEtiapine 25 mg oral tablet (1 source) Atypical Antipsychotic Start: 05-06-2025 take 1 tablet by mouth twice daily Quetiapine 25 mg Tablet Active 25 mg PO TWICE A DAY 0 May 06, 2025 12:00am tropicamide 10 mg/ml ophthalmic solution (1 source) Anticholinergic Start: 01-01-2024 End: 01-01-2024 tropicamide 1 % 1 Drop (MYDRIACYL) Completed/Discontinued Medications Medication Drug Class(es) Dates Sig (Normalized) Sig (Original) acetaminophen 325 mg / HYDROcodone bitartrate 5 mg oral tablet (8 sources) Opioid Agonist Start: 11-21-2015 End: 12-01-2015 Hydrocodone-Acetami nophen 1 EACH tablet Discontinued 1 - 2 {tbl} PO EVERY 4 HOURS NEEDED as needed for pain November 23, 2015 12:17pm December 01, 2015 8:43am Start: 11-21-2015 End: 12-01-2015 take 1 tablet by mouth every four hours as needed Hydrocodone-Acetaminophen Discontinued 1 - 2 TABLET PO EVERY 4 HOURS NEEDED November 23, 2015 12:17pm December 01, 2015 8:43am albuterol 0.83 mg/ml inhalation solution (8 sources) beta2-Adrenergic Agonist Start: 07-14-2021 End: 05-14-2023 take 2.5 mg by inhalation every two hours as needed for wheezing Albuterol Sulfate 2.5 mg /3 mL (0.083 %) Solution For Nebulization Discontinued 2.5 mg INHALATION EVERY 2 HOURS NEEDED as needed for SOB/Wheezing 0 July 14, 2021 12:00am May 14, 2023 1:57pm Start: 11-23-2015 End: 04-18-2017 take 2.5 mg by inhalation every two hours as needed for dyspnea Albuterol Sulfate 2.5 MG/3 ML Vial.Neb. Discontinued 2.5 mg INHALATION EVERY 2 HOURS NEEDED as needed for dyspnea, wheezing 1 November 23, 2015 1:00am April 18, 2017 3:14pm calcium carbonate 500 mg chewable tablet (20 sources) Start: 05-14-2023 End: 05-12-2024 take 1 tablet by mouth three times daily as needed Calcium Carbonate (Antacid (Calcium Carbonate)) 200 mg calcium (500 mg) tablet,chewable Discontinued 200 mg PO THREE TIMES A DAY as needed for indigestion May 14, 2023 12:00am May 12, 2024 11:23am Start: 02-27-2023 End: 11-13-2024 take 500 mg by mouth every hour as needed calcium carbonate (TUMS) 500 mg chew Take 1 tablet by mouth every hour as needed. 02/27/2023 11/13/2024 Discontinued Comment on above: Take 1 tablet by alex th every hour as needed. calcium carbonate 1250 mg / cholecalciferol 200 unt oral tablet (20 sources) Vitamin D Start: 3 End: 4 take 1 tablet by mouth three times daily at mealtime [id number] tamin D3 (CALCIUM 500+D) 500 mg-5 mcg (200 unit) per tablet Take 1 tablet by mouth three times daily with meals. 02/27/2023 11/13/2024 Discontinued Comment on above: Take 1 tablet by alex th three times daily with meals. Calcium Carbonate / vitamin D3 (4 sources) Start: 3 End: 5 take 1 tablet by mouth three times daily calcium carbonate-vitamin D3 Discontinued 1 {tbl} SL/PO THREE TIMES A DAY March 05, 2023 12:00am April 23, 2025 10:30pm 500mg/5mcg (200 unit) per tablet Start: 03-05-2023 take 1 tablet by alex th three times daily calcium carbonate-vitamin D3 Active 1 TABLET SL/PO THREE TIMES A DAY March 05, 2023 12:00am 500mg/5mcg (200 unit) per tablet diazePAM 5 mg oral tablet (4 sources) Benzodiazepine Start: 11-21-2015 End: 12-01-2015 take 1 tablet by mouth twice daily as needed for muscle spasms Diazepam 5 MG tablet Discontinued 5 mg PO TWICE DAILY NEEDED as needed for spasms November 21, 2015 1:00am December 01, 2015 8:43am docusate sodium 50 mg / sennosides, retirement 8.6 mg oral tablet (11 sources) Start: 03-08-2023 End: 05-14-2023 Sennosides-Docusate Sodium (Stool Softener-Stimulant Laxat) 8.6-50 mg Tablet Discontinued 2 {tbl} PO TWICE DAILY NEEDED as needed for Constipation 0 March 08, 2023 12:00am May 14, 2023 1:57pm Start: 08-22-2018 End: 08-28-2018 take 1 tablet by mouth twice daily Sennosides-Docusate Sodium (Stool Softener-Stimulant Laxat) 1 TABLET tablet Discontinued 2 {tbl} PO TWICE A DAY August 22, 2018 12:14pm August 28, 2018 12:04pm ergocalciferol 1.25 mg oral capsule (4 sources) Provitamin D2 Compound Start: 08-22-2018 End: 08-22-2018 take 1 capsule by mouth every week Ergocalciferol (Vitamin D2) (Vitamin D2) 50,000 UNIT capsule Discontinued 29804 U PO Q7D@1000 August 22, 2018 12:00am August 22, 2018 12:14pm Continue weekly dose x 6-8 weeks and then transition to oral regimen. finasteride 5 mg oral tablet (20 sources) 5-alpha Reductase Inhibitor Start: 07-01-2021 End: 06-30-2024 take 1 tablet by mouth once daily Finasteride 5 mg Tablet Discontinued 5 mg PO DAILY July 01, 2021 12:00am May 12, 2024 11:23am Comment on above: Take 1 tablet by alex once daily. 12 hr guaiFENesin 1200 mg extended release oral tablet (8 sources) Start: 11-23-2015 End: 04-18-2017 take 1 tablet by mouth twice daily Guaifenesin (Mucus Relief Er) 1,200 MG tablet Discontinued 1200 mg PO TWICE A DAY December 01, 2015 8:44am April 18, 2017 3:17pm ibuprofen 200 mg oral capsule (6 sources) Nonsteroidal Anti-inflammatory Drug Start: 02-27-2023 End: 05-06-2025 take 1 capsule by mouth every four hours as needed for pain Ibuprofen 200 mg Capsule Discontinued 200 mg PO Q4H as needed for Pain March 05, 2023 12:00am May 06, 2025 1:34pm Comment on above: Take [address] [facility] every 4 hours as needed for pain (for pain). 3 ml insulin aspart, human 100 unt/ml pen injector (4 sources) Insulin Analog Start: 11-23-2015 End: 12-01-2015 Insulin Aspart U-100 (Novolog Flexpen U-100 Insulin) 100 UNITS/ML Flexpen Discontinued 0 U SC BEFORE MEALS AND AT BEDTIME November 23, 2015 1:00am December 01, 2015 8:44am 3 ml insulin lispro 100 unt/ml pen injector (8 sources) Insulin Analog Start: 08-22-2018 End: 08-28-2018 Insulin Lispro (Humalog Kwikpen Insulin) 100 UNIT/ML Insuln.Pen Discontinued 0 U SQ THREE TIMES DAILY BEFORE MEALS August 22, 2018 12:14pm August 28, 2018 12:04pm Please contact the information source for Protocol details. Start: 08-22-2018 End: 08-28-2018 Insulin Lispro (Humalog Kwik pen Insulin) 100 UNIT/ML Insuln.Pen Discontinued 0 UNIT SQ THREE TIMES DAILY BEFORE MEALS August 22, 2018 12:14pm August 28, 2018 12:04pm levoFLOXacin 500 mg oral tablet (8 sources) Quinolone Antimicrobial Start: 11-23-2015 End: 12-01-2015 take 1 tablet by mouth once daily in the morning Levofloxacin 500 MG tablet Discontinued 500 mg PO DAILY November 25, 2015 8:19am December 01, 2015 8:43am Next dose due 11/25/14, will be given 11/24/14 AM dose prior to SNF transition lidocaine hydrochloride 0.02 mg/mg topical gel (1 source) Antiarrhythmic, Amide Local Anesthetic Start: 2023 End: 2023 lidocaine urojet 2 % 6 mL topical gel (GLYDO) losartan potassium 50 mg oral tablet (20 sources) Angiotensin 2 Receptor Lynn Start: 01-25-2025 End: 07-24-2025 take 1 tablet by mouth once daily Losartan 50 mg tablet Discontinued 50 mg PO DAILY April 23, 2025 12:00am May 06, 2025 1:34pm Start: 12-03-2023 End: 01-22-2025 take 1 tablet [...] 90 tablet 1 07/26/2022 Active Start: 07-14-2021 End: 04-23-2025 Losartan 25 mg tablet Discon tinued 50 mg PO DAILY 0 July 14, 2021 12:03pm April 23, 2025 10:32pm Hold for SBP less than 120 mmHg Start: 07-14-2021 Losartan Activ e 50 MG PO DAILY 0 July 14, 2021 12:03pm Hold for SBP less than 120 mmHg Start: 01-09-2021 End: 10-17-2021 take 1 tablet by mouth once daily Losartan 25 mg tablet Discontinued 25 mg PO DAILY May 26, 2021 12:00am July 14, 2021 12:03pm Comment on above: Take 1 tablet by alex th once daily. Take 50 mg by mouth once daily. meloxicam 7.5 mg oral tablet (4 sources) Nonsteroidal Anti-inflammatory Drug Start : 11-28 End: 07-14 take 1 tablet by mouth once daily Meloxicam 7.5 MG tablet Discontinued 7.5 mg PO DAILY November 28, 2017 1:00am July 14, 2021 12:00pm metFORMIN hydrochloride 500 mg oral tablet (20 sources) Biguanide Start : 11-20 End: 05-12 take 1 tablet by mouth twice daily at mealtime Metformin 500 MG tablet Discontinued 500 mg PO TWICE DAILY WITH MEALS November 20, 2015 1:00am May 12, 2024 11:23am Comment on above: Take 1 tablet by alex th twice daily with meals. methylPREDNISolone 4 mg oral tablet (4 sources) Corticosteroid Start : 11-25 End: 12-01 Methylprednisolone 4 MG tablet Discontinued 4 mg PO DIRECTED November 25, 2015 1:00am December 01, 2015 8:44am Continue medrol dose pack, 1st dose given 11/25/14 prior to TCU transition. naproxen sodium 220 mg oral tablet (20 sources) Nonsteroidal Anti-inflammatory Drug Start : 03-19 End: 04-23 take 1 tablet by mouth twice daily as needed for pain Naproxen Sodium (Flanax (Naproxen)) 220 mg tablet Discontinued 220 mg PO TWICE A DAY as needed for pain May 14, 2023 12:00am April 23, 2025 10:31pm Comment on above: Take 220 mg by mouth twice daily with meals. as needed for pain Take 220 mg by mouth two times a day with meals. as needed for pain oxyCODONE hydrochloride 5 mg oral tablet (8 sources) Opioid Agonist Start : 08-22 End: 09-04 take 1 tablet by mouth every four hours as needed for pain Oxycodone 5 MG tablet Discontinued 5 mg PO EVERY 4 HOURS NEEDED as needed for Moderate Pain (pain scale 4-5) 30 7 August 28, 2018 12:00am September 03, 2018 12:00am September 04, 2018 12:11am polysaccharide iron complex 150 mg oral capsule (20 sources) Start : 05-15 End: 05-12 take 1 capsule by mouth once daily Polysaccharide Iron Complex (Iferex 150) 150 mg iron capsule Discontinued 0 .ROUTE .COMPLEX 90 July 04, 2023 4:15pm May 12, 2024 11:23am take 1 capsule by mouth once daily Comment on above: Take 150 mg by mouth once daily. predniSONE 20 mg oral tablet (11 sources) Start : 03-08 End: 03-12 take 2 tablets by mouth at breakfast Prednisone 20 mg Tablet Discontinued 40 mg PO WITH BREAKFAST 0 3 March 08, 2023 12:00am March 11, 2023 12:00am March 12, 2023 12:04am Start: 03-08-2023 take 40 mg by mouth at breakfa st Prednisone Active 40 MG PO WITH BREAKFAST 0 March 08, 2023 12:00am Start: 12-01-2015 End: 04-18-2017 take 1 tablet by mouth once daily Prednisone 10 MG tablet Discontinued 10 mg PO DAILY@0800 10 December 01, 2015 6:30pm April 18, 2017 3:17pm rivaroxaban 10 mg oral tablet (8 sources) Factor Xa Inhibitor Start: 08-22-2018 End: 08-28-2018 take 1 tablet by mouth once daily Rivaroxaban (Xarelto) 10 MG tablet Discontinued 10 mg PO DAILY@0600 August 22, 2018 12:14pm August 28, 2018 12:05pm 125 ml sodium chloride 9 mg/ml prefilled syringe (20 sources) Start: 09-19-2020 End: 01-29-2023 sodium chloride 0.9 % (flush) 10 mL (BD POSIFLUSH) sulfamethoxazole 800 mg / trimethoprim 160 mg oral tablet (20 sources) Dihydrofolate Reductase Inhibitor Antibacterial, Sulfonamide Antimicrobial Start: 05-15-2023 End: 11-13-2024 take 1 tablet by mouth twice daily sulfamethoxazole- trimethoprim (BACTRIM DS) 800-160 mg per tablet Indications: bacterial urinary tract infection Take 1 tablet by mouth twice daily. 28 tablet 05/15/2023 11/13/2024 Discontinued Start: 2023 End: 2023 sulfamethoxazole-trimethopri m 800-160 mg 1 tablet (BACTRIM DS) Comment on above: Take 1 tablet by alex twice daily. 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 30 capsule 5 06/30/2021 11/06/2021 Discontinued Start: 08-22-2018 End: 08-28-2018 take 1 capsule by mouth once daily Tamsulosin 0.4 MG capsule Discontinued 0.4 mg PO DAILY@1730 August 22, 2018 12:14pm August 28, 2018 12:04pm Problems Active Problems Problem Classification Problem Date Documented Date Episodic/Chronic Acquired foot deformities (20 sources) Hammer toe; Translations: [Other hammer toe(s) (acquired), unspecified foot] Onset: 09-01-20 10 09-01-2010 Chronic Acute and unspecified renal failure (5 sources) Injury of kidney; Translations: [Acute kidney failure, unspecified] 08-22-2018 Episodic Comment on above: Prerenal azotemia se condary to poor oral intake. Acute cerebrovascular disease (3 sources) Ischemic stroke; Translations: [Cerebral infarction, unspecified] Onset: 05-06-20 25 05-06-2025 Chronic Anxiety disorders (20 sources) Anxiety state; Translations: [Generalized anxiety disorder] Onset: 12-06-19 09 Chronic Blindness and vision defects (1 source) Amblyopia of right eye; Translations: [Unspecified amblyopia, right eye] 01-01-2024 Episodic Cataract (2 sources) After-cataract of left eye; Translations: [Other secondary cataract, left eye] 01-01-2024 Chronic Chronic kidney disease (3 sources) Chronic kidney disease stage 3; Translations: [Stage 3 chronic kidney disease, unspecified whether stage 3a or 3b CKD (HCC)] 11-16-2024 Chronic Congestive heart failure; nonhypertensive (20 sources) Chronic systolic heart failure; Translations: [Chronic systolic (congestive) heart failure] Onset: 12-09-19 24 05-07-2019 Chronic Coronary atherosclerosis and other heart disease (20 sources) Coronary atherosclerosis; Translations: [Atherosclerotic heart disease of [place] coronary artery without angina pectoris] Onset: 10-18-20 09 08-30-2016 Chronic Deficiency and other anemia (3 sources) Anemia; Translations: [Anemia, unspecified] Episodic Diabetes mellitus with complications (20 sources) Type 2 diabetes mellitus; Translations: [Type 2 diabetes mellitus with other diabetic kidney complication] Onset: 07-24-20 16 2018 Chronic Diabetes mellitus without complication (4 sources) Diabetes mellitus; Translations: [Type 2 diabetes mellitus without complications] 05-07-2019 Chronic Disorders of lipid metabolism (20 sources) Hyperlipidemia; Translations: [Hyperlipidemia, unspecified] Onset: 09-13-20 15 09-13-2015 Chronic E Codes: Fall (14 sources) Accidental fall ; Translations: [Unspecified fall, initial encounter] Onset: 05-06-20 25 05-26-2021 Episodic Essential hypertension (20 sources) Essential hypertension; Translations: [Essential (primary) hypertension] Onset: 09-13-20 06 10-31-2020 Chronic Fracture of neck of femur (hip) (4 sources) Closed fracture of hip; Translations: [Fracture of unspecified part of neck of right femur, initial encounter for closed fracture] 08-22-2018 Episodic Fracture of neck of femur (hip) (9 sources) Closed fracture of hip; Translations: [Fracture of unspecified part of neck of left femur, initial encounter for closed fracture] Onset: 05-06-2004-23-2025 Episodic 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 Still in remission. Leukemias (4 sources) Leukemias 08-22-2018 Comment on above: Was following with Gali Zamorano, in remissionFollow up with Dr. Mercado after discharge. Malaise and fatigue (11 sources) Asthenia; Translations: [Other malaise] 06-03-2021 Episodic Mood disorders (4 sources) Depressive disorder; Translations: [Depression] 05-07-2019 Chronic Mycoses (8 sources) Onychomycosis; Translations: [Tinea unguium] Onset: 04-09-20 Episodic Noninfectious gastroenteritis (4 sources) Gastroenteritis; Translations: [Noninfective gastroenteritis and colitis, unspecified] 06-03-2021 Episodic Nutritional deficiencies (4 sources) Vitamin D deficiency; Translations: [Vitamin D deficiency, unspecified] 08-22-2018 Chronic Nutritional deficiencies (2 sources) Iron deficiency; Translations: [Iron deficiency] 05-12-2024 Episodic Comment on above: Iron profile is norm al today, Occlusion or stenosis of precerebral arteries (20 [...] right toe(s)] Episodic Other connective tissue disease (4 sources) Tendinitis; Translations: [Enthesopathy, unspecified] 08-22-2018 Episodic Comment on above: Acute Longus Colii t endonitis noted on MRI C-spine. Other connective tissue disease (1 source) Pain in left toe(s); Translations: [Pain in toe of left foot] Onset: 04-09-20 Episodic Other connective tissue disease (1 source) Pain in right toe(s); Translations: [Pain in toe of right foot] Onset: 04-09-20 Episodic Other diseases of kidney and ureters (1 source) Renal impairment; Translations: [Disorder of kidney and ureter, unspecified] Episodic Other diseases of kidney and ureters (4 sources) Renal insufficiency; Translations: [Disorder of kidney [...] 15 09-13-2015 Chronic Other nervous system disorders (4 sources) Disorder of brain; Translations: [Encephalopathy, unspecified] 07-22-2021 Chronic Other nervous system disorders (4 sources) Unable to walk; Translations: [Difficulty in walking, not elsewhere classified] 03-06-2023 Chronic Other nervous system disorders (2 sources) Difficulty in walking, not elsewhere classified; Translations: [Difficulty in walking] 03-06-2023 Chronic Other nervous system disorders (4 sources) Shuffling gait; Translations: [Other abnormalities of gait and mobility] 05-26-2021 Episodic Other non-traumatic joint disorders (3 sources) Effusion of right knee joint; Translations: [Effusion, [...] Onset: 04-09-20 Episodic Other upper respiratory infections (4 sources) Ethmoidal sinusitis; Translations: [Chronic ethmoidal sinusitis] 08-22-2018 Chronic Bertha-; endo-; and myocarditis; cardiomyopathy (except that caused by tuberculosis or sexually transmitted disease) (20 sources) Cardiomyopathy; Translations: [Other cardiomyopathies] Onset: 07-24-20 18 07-24-2018 Chronic Residual codes; unclassified (4 sources) Chronic confusion; Translations: [Disorientation, unspecified] 05-26-2021 Episodic Retinal detachments; defects; vascular occlusion; and retinopathy (20 sources) Retinal hemorrhage; Translations: [Retinal hemorrhage, unspecified eye] Onset: 09-13-20 15 09-13-2015 Chronic Spondylosis; intervertebral disc disorders; other back problems (20 sources) Degeneration of cervical intervertebral disc; Translations: [Other cervical disc degeneration, unspecified cervical region] Onset: 12-09-19 16 12-09-2015 Chronic Unclassified (1 source) -Please follow-up with neurology upon discharge, please call Dr. Braswell's office upon discharge to schedule an appointment to establish care or establish with a provider of your preference ) Past or Other Problems Problem Classification Problem [...] deficiency anemia, unspecified] Onset: 02-15-2023 02-15-2023 Episodic Deficiency and other anemia (1 source) Anemia, unspecified; Translations: [Anemia, unspecified] Onset: 05-12-2024 Episodic Genitourinary symptoms and ill-defined conditions (20 [...] specific antigen [PSA]] Onset: 06-20-2016 06-20-2016 Episodic Comment on above: Ferritin is 86 today , has been taking Oral iron. Pneumonia (except that caused by tuberculosis or sexually transmitted disease) (4 sources) Pneumonia (except that caused by tuberculosis or sexually transmitted disease) 08-22-2018 Spondylosis; intervertebral disc disorders; other back problems (20 sources) Spinal stenosis of lumbar region; Translations: [Spinal stenosis, lumbar region without neurogenic claudication] Onset: 12-06-2008 08-30-2016 Episodic Viral infection (19 sources) COVID-19; Translations: [Acute respiratory failure] Onset: 12-09-2023 Resolved: 11-13-2024 12-09-2023 Episodic Results Test Name Value Interpretation Reference Range Facility Basic Metabolic Profile (BMP )on 05-12-2025 BUN Normal - [facility] Comment on above: Result Comment: Canc elled via OM: Order cancelled - Patient discharged Performed By: #### L 500.2500, L100.0100 ####[facility] [address] [facility] [address] BUN/CRE Normal - [facility] Comment on above: Result Comment: Canc elled via OM: Order cancelled - Patient discharged Performed By: #### L 500.2500, L100.0100 ####[facility] [address] [facility] [address] Calcium Normal 7.6-11.0 [facility] Comment on above: Result Comment: Canc elled via OM: Order cancelled - Patient discharged Performed By: #### L 500.2500, L100.0100 ####[facility] [address] [facility] [address] CL Normal 98-108 [facility] Comment on above: Result Comment: Canc elled via OM: Order cancelled - Patient discharged Performed By: #### L 500.2500, L100.0100 ####[facility] [address] [place], [address] CO2 Normal 21.0-32.0 [facility] Comment on above: Result Comment: Canc elled via OM: Order cancelled - Patient discharged Performed By: #### L 500.2500, L100.0100 ####[facility] [address] [place], [address] CREAT,SERUM Normal 0.70-1.20 [facility] Comment on above: Result Comment: Canc elled via OM: Order cancelled - Patient discharged Performed By: #### L 500.2500, L100.0100 ####[facility] [address] [place], [address] eGFR Normal >60 [facility] Comment on above: Result Comment: Canc elled via OM: Order cancelled - Patient discharged Performed By: #### L 500.2500, L100.0100 ####[facility] [address] [place], [address] GAP Normal 5-15 [facility] Comment on above: Result Comment: Canc elled via OM: Order cancelled - Patient discharged Performed By: #### L 500.2500, L100.0100 ####[facility] [address] [place], [address] GLU Normal 70-99 [facility] Comment on above: Result Comment: Canc elled via OM: Order cancelled - Patient discharged Performed By: #### L 500.2500, L100.0100 ####[facility] [address] [place], [address] Potassium Normal 3.3-5.1 [facility] Comment on above: Result Comment: Canc elled via OM: Order cancelled - Patient discharged Performed By: #### L 500.2500, L100.0100 ####[facility] [address] [place], [address] Basic Metabolic Profile (BMP) Normal 133-145 [facility] Comment on above: Result Comment: Canc elled via OM: Order cancelled - Patient discharged Performed By: #### L 500.2500, L100.0100 ####[facility] [address] [place], [address] CBC W/Diff, Automatedon 06-2 Absolute Neut Normal 2.0-7.7 [facility] Comment on above: Result Comment: Canc elled via OM: Order cancelled - Patient discharged Performed By: #### L 500.2500, L100.0100 ####[facility] [address] [place], [address] HCT Normal 40-54 [facility] Comment on above: Result Comment: Canc elled via OM: Order cancelled - Patient discharged Performed By: #### L 500.2500, L100.0100 ####[facility] [address] [place], [address] HGB Normal 13.0-16.5 [facility] Comment on above: Result Comment: Canc elled via OM: Order cancelled - Patient discharged Performed By: #### L 500.2500, L100.0100 ####[facility] [address] [place], [address] MCH Normal 27.0-32.0 [facility] Comment on above: Result Comment: Canc elled via OM: Order cancelled - Patient discharged Performed By: #### L 500.2500, L100.0100 ####[facility] [address] [place], [address] MCHC Normal 32-36 [facility] Comment on above: Result Comment: Canc elled via OM: Order cancelled - Patient discharged Performed By: #### L 500.2500, L100.0100 ####[facility] [address] [place], [address] MCV Normal 80-94 [facility] Comment on above: Result Comment: Canc elled via OM: Order cancelled - Patient discharged Performed By: #### L 500.2500, L100.0100 ####[facility] [address] [place], [address] NEUT% Normal 47-70 [facility] Comment on above: Result Comment: Canc elled via OM: Order cancelled - Patient discharged Performed By: #### L 500.2500, L100.0100 ####[facility] [address] [place], [address] PLT Normal 150-450 [facility] Comment on above: Result Comment: Canc elled via OM: Order cancelled - Patient discharged Performed By: #### L 500.2500, L100.0100 ####[facility] [address] [place], [address] RBC Normal 4.6-6.2 [facility] Comment on above: Result Comment: Canc elled via OM: Order cancelled - Patient discharged Performed By: #### L 500.2500, L100.0100 ####[facility] [address] [place], [address] RDW CV Normal 11.6-14.6 [facility] Comment on above: Result Comment: Canc elled via OM: Order cancelled - Patient discharged Performed By: #### L 500.2500, L100.0100 ####[facility] [address] [place], [address] RDW SD Normal 35.1-43.9 [facility] Comment on above: Result Comment: Canc elled via OM: Order cancelled - Patient discharged Performed By: #### L 500.2500, L100.0100 ####[facility] [address] [place], [address] WBC Normal 4.4-11.0 [facility] Comment on above: Result Comment: Canc elled via OM: Order cancelled - Patient discharged Performed By: #### L 500.2500, L100.0100 ####[facility] [address] [place], [address] Basic Metabolic Profile (BMP )on 05-11-2025 BUN Normal 4-19 [facility] Comment on above: Result Comment: Canc elled via OM: Order cancelled - Patient discharged Performed By: #### L 500.2500, L100.0100 ####[facility] [address] [place], [address] BUN/CRE Normal 10-20 [facility] Comment on above: Result Comment: Canc elled via OM: Order cancelled - Patient discharged Performed By: #### L 500.2500, L100.0100 ####[facility] [address] [place], [address] Calcium Normal 7.6-11.0 [facility] Comment on above: Result Comment: Canc elled via OM: Order cancelled - Patient discharged Performed By: #### L 500.2500, L100.0100 ####[facility] [address] [place], [address] CL Normal 98-108 [facility] Comment on above: Result Comment: Canc elled via OM: Order cancelled - Patient discharged Performed By: #### L 500.2500, L100.0100 ####[facility] [address] [place], [address] CO2 Normal 21.0-32.0 [facility] Comment on above: Result Comment: Canc elled via OM: Order cancelled - Patient discharged Performed By: #### L 500.2500, L100.0100 ####[facility] [address] [place], [address] CREAT,SERUM Normal 0.70-1.20 [facility] Comment on above: Result Comment: Canc elled via OM: Order cancelled - Patient discharged Performed By: #### L 500.2500, L100.0100 ####[facility] [address] [place], [address] eGFR Normal >60 [facility] Comment on above: Result Comment: Canc elled via OM: Order cancelled - Patient discharged Performed By: #### L 500.2500, L100.0100 ####[facility] [address] [place], [address] GAP Normal 5-15 [facility] Comment on above: Result Comment: Canc elled via OM: Order cancelled - Patient discharged Performed By: #### L 500.2500, L100.0100 ####[facility] [address] [place], [address] GLU Normal 70-99 [facility] Comment on above: Result Comment: Canc elled via OM: Order cancelled - Patient discharged Performed By: #### L 500.2500, L100.0100 ####[facility] [address] [place], [address] Potassium Normal 3.3-5.1 [facility] Comment on above: Result Comment: Canc elled via OM: Order cancelled - Patient discharged Performed By: #### L 500.2500, L100.0100 ####[facility] [address] [place], [address] Basic Metabolic Profile (BMP) Normal 133-145 [facility] Comment on above: Result Comment: Canc elled via OM: Order cancelled - Patient discharged Performed By: #### L 500.2500, L100.0100 ####[facility] [address] [place], [address] CBC W/Diff, Automatedon 06-2 Absolute Neut Normal 2.0-7.7 [facility] Comment on above: Result Comment: Canc elled via OM: Order cancelled - Patient discharged Performed By: #### L 500.2500, L100.0100 ####[facility] [address] [place], [address] HCT Normal 40-54 [facility] Comment on above: Result Comment: Canc elled via OM: Order cancelled - Patient discharged Performed By: #### L 500.2500, L100.0100 ####[facility] [address] [place], [address] HGB Normal 13.0-16.5 [facility] Comment on above: Result Comment: Canc elled via OM: Order cancelled - Patient discharged Performed By: #### L 500.2500, L100.0100 ####[facility] [address] [place], [address] MCH Normal 27.0-32.0 [facility] Comment on above: Result Comment: Canc elled via OM: Order cancelled - Patient discharged Performed By: #### L 500.2500, L100.0100 ####[facility] [address] [place], [address] MCHC Normal 32-36 [facility] Comment on above: Result Comment: Canc elled via OM: Order cancelled - Patient discharged Performed By: #### L 500.2500, L100.0100 ####[facility] [address] [place], [address] MCV Normal 80-94 [facility] Comment on above: Result Comment: Canc elled via OM: Order cancelled - Patient discharged Performed By: #### L 500.2500, L100.0100 ####[facility] [address] [place], [address] NEUT% Normal 47-70 [facility] Comment on above: Result Comment: Canc elled via OM: Order cancelled - Patient discharged Performed By: #### L 500.2500, L100.0100 ####[facility] [address] [place], [address] PLT Normal 150-450 [facility] Comment on above: Result Comment: Canc elled via OM: Order cancelled - Patient discharged Performed By: #### L 500.2500, L100.0100 ####[facility] [address] [place], [address] RBC Normal 4.6-6.2 [facility] Comment on above: Result Comment: Canc elled via OM: Order cancelled - Patient discharged Performed By: #### L 500.2500, L100.0100 ####[facility] [address] [place], [address] RDW CV Normal 11.6-14.6 [facility] Comment on above: Result Comment: Canc elled via OM: Order cancelled - Patient discharged Performed By: #### L 500.2500, L100.0100 ####[facility] [address] [place], [address] RDW SD Normal 35.1-43.9 [facility] Comment on above: Result Comment: Canc elled via OM: Order cancelled - Patient discharged Performed By: #### L 500.2500, L100.0100 ####[facility] [address] [place], [address] WBC Normal 4.4-11.0 [facility] Comment on above: Result Comment: Canc elled via OM: Order cancelled - Patient discharged Performed By: #### L 500.2500, L100.0100 ####[facility] [address] [place], [address] Basic Metabolic Profile (BMP )on 05-10-2025 BUN Normal 4-19 [facility] Comment on above: Result Comment: Canc elled via OM: Order cancelled - Patient discharged Performed By: #### L 500.2500, L100.0100 ####[facility] [address] [place], [address] BUN/CRE Normal 10-20 [facility] Comment on above: Result Comment: Canc elled via OM: Order cancelled - Patient discharged Performed By: #### L 500.2500, L100.0100 ####[facility] [address] [place], [address] Calcium Normal 7.6-11.0 [facility] Comment on above: Result Comment: Canc elled via OM: Order cancelled - Patient discharged Performed By: #### L 500.2500, L100.0100 ####[facility] [address] [place], [address] CL Normal 98-108 [facility] Comment on above: Result Comment: Canc elled via OM: Order cancelled - Patient discharged Performed By: #### L 500.2500, L100.0100 ####[facility] [address] [place], [address] CO2 Normal 21.0-32.0 [facility] Comment on above: Result Comment: Canc elled via OM: Order cancelled - Patient discharged Performed By: #### L 500.2500, L100.0100 ####[facility] [address] [place], [address] CREAT,SERUM Normal 0.70-1.20 [facility] Comment on above: Result Comment: Canc elled via OM: Order cancelled - Patient discharged Performed By: #### L 500.2500, L100.0100 ####[facility] [address] [place], [address] eGFR Normal >60 [facility] Comment on above: Result Comment: Canc elled via OM: Order cancelled - Patient discharged Performed By: #### L 500.2500, L100.0100 ####[facility] [address] [place], [address] GAP Normal 5-15 [facility] Comment on above: Result Comment: Canc elled via OM: Order cancelled - Patient discharged Performed By: #### L 500.2500, L100.0100 ####[facility] [address] [place], [address] GLU Normal 70-99 [facility] Comment on above: Result Comment: Canc elled via OM: Order cancelled - Patient discharged Performed By: #### L 500.2500, L100.0100 ####[facility] [address] [place], [address] Potassium Normal 3.3-5.1 [facility] Comment on above: Result Comment: Canc elled via OM: Order cancelled - Patient discharged Performed By: #### L 500.2500, L100.0100 ####[facility] [address] [place], [address] Basic Metabolic Profile (BMP) Normal 133-145 [facility] Comment on above: Result Comment: Canc elled via OM: Order cancelled - Patient discharged Performed By: #### L 500.2500, L100.0100 ####[facility] [address] [place], [address] CBC W/Diff, Automatedon 06-2 -2024 Absolute Neut Normal 2.0-7.7 [facility] Comment on above: Result Comment: Canc elled via OM: Order cancelled - Patient discharged Performed By: #### L 500.2500, L100.0100 ####[facility] [address] [place], [address] HCT Normal 40-54 [facility] Comment on above: Result Comment: Canc elled via OM: Order cancelled - Patient discharged Performed By: #### L 500.2500, L100.0100 ####[facility] [address] [place], [address] HGB Normal 13.0-16.5 [facility] Comment on above: Result Comment: Canc elled via OM: Order cancelled - Patient discharged Performed By: #### L 500.2500, L100.0100 ####[facility] [address] [place], [address] MCH Normal 27.0-32.0 [facility] Comment on above: Result Comment: Canc elled via OM: Order cancelled - Patient discharged Performed By: #### L 500.2500, L100.0100 ####[facility] [address] [place], [address] MCHC Normal 32-36 [facility] Comment on above: Result Comment: Canc elled via OM: Order cancelled - Patient discharged Performed By: #### L 500.2500, L100.0100 ####[facility] [address] [place], [address] MCV Normal 80-94 [facility] Comment on above: Result Comment: Canc elled via OM: Order cancelled - Patient discharged Performed By: #### L 500.2500, L100.0100 ####[facility] [address] [place], [address] NEUT% Normal 47-70 [facility] Comment on above: Result Comment: Canc elled via OM: Order cancelled - Patient discharged Performed By: #### L 500.2500, L100.0100 ####[facility] [address] [place], [address] PLT Normal 150-450 [facility] Comment on above: Result Comment: Canc elled via OM: Order cancelled - Patient discharged Performed By: #### L 500.2500, L100.0100 ####[facility] [address] [place], [address] RBC Normal 4.6-6.2 [facility] Comment on above: Result Comment: Canc elled via OM: Order cancelled - Patient discharged Performed By: #### L 500.2500, L100.0100 ####[facility] [address] [place], [address] RDW CV Normal 11.6-14.6 [facility] Comment on above: Result Comment: Canc elled via OM: Order cancelled - Patient discharged Performed By: #### L 500.2500, L100.0100 ####[facility] [address] [place], [address] RDW SD Normal 35.1-43.9 [facility] Comment on above: Result Comment: Canc elled via OM: Order cancelled - Patient discharged Performed By: #### L 500.2500, L100.0100 ####[facility] [address] [place], [address] WBC Normal 4.4-11.0 [facility] Comment on above: Result Comment: Canc elled via OM: Order cancelled - Patient discharged Performed By: #### L 500.2500, L100.0100 ####[facility] [address] [place], [address] Basic Metabolic Profile (BMP )on 05-09-2025 BUN Normal -19 [facility] Comment on above: Result Comment: Canc elled via OM: Order cancelled - Patient discharged Performed By: #### L 500.2500, L100.0100 ####[facility] [address] [place], [address] BUN/CRE Normal 10-20 [facility] Comment on above: Result Comment: Canc elled via OM: Order cancelled - Patient discharged Performed By: #### L 500.2500, L100.0100 ####[facility] [address] [place], [address] Calcium Normal 7.6-11.0 [facility] Comment on above: Result Comment: Canc elled via OM: Order cancelled - Patient discharged Performed By: #### L 500.2500, L100.0100 ####[facility] [address] [place], [address] CL Normal 98-108 [facility] Comment on above: Result Comment: Canc elled via OM: Order cancelled - Patient discharged Performed By: #### L 500.2500, L100.0100 ####[facility] [address] [place], [address] CO2 Normal 21.0-32.0 [facility] Comment on above: Result Comment: Canc elled via OM: Order cancelled - Patient discharged Performed By: #### L 500.2500, L100.0100 ####[facility] [address] [place], [address] CREAT,SERUM Normal 0.70-1.20 [facility] Comment on above: Result Comment: Canc elled via OM: Order cancelled - Patient discharged Performed By: #### L 500.2500, L100.0100 ####[facility] [address] [place], [address] eGFR Normal >60 [facility] Comment on above: Result Comment: Canc elled via OM: Order cancelled - Patient discharged Performed By: #### L 500.2500, L100.0100 ####[facility] [address] [place], [address] GAP Normal 5-15 [facility] Comment on above: Result Comment: Canc elled via OM: Order cancelled - Patient discharged Performed By: #### L 500.2500, L100.0100 ####[facility] [address] [place], [address] GLU Normal 70-99 [facility] Comment on above: Result Comment: Canc elled via OM: Order cancelled - Patient discharged Performed By: #### L 500.2500, L100.0100 ####[facility] [address] [place], [address] Potassium Normal 3.3-5.1 [facility] Comment on above: Result Comment: Canc elled via OM: Order cancelled - Patient discharged Performed By: #### L 500.2500, L100.0100 ####[facility] [address] [place], [address] Basic Metabolic Profile (BMP) Normal 133-145 [facility] Comment on above: Result Comment: Canc elled via OM: Order cancelled - Patient discharged Performed By: #### L 500.2500, L100.0100 ####[facility] [address] [place], [address] CBC W/Diff, Automatedon - Absolute Neut Normal 2.0-7.7 [facility] Comment on above: Result Comment: Canc elled via OM: Order cancelled - Patient discharged Performed By: #### L 500.2500, L100.0100 ####[facility] [address] [place], [address] HCT Normal 40-54 [facility] Comment on above: Result Comment: Canc elled via OM: Order cancelled - Patient discharged Performed By: #### L 500.2500, L100.0100 ####[facility] [address] [place], [address] HGB Normal 13.0-16.5 [facility] Comment on above: Result Comment: Canc elled via OM: Order cancelled - Patient discharged Performed By: #### L 500.2500, L100.0100 ####[facility] [address] [place], [address] MCH Normal 27.0-32.0 [facility] Comment on above: Result Comment: Canc elled via OM: Order cancelled - Patient discharged Performed By: #### L 500.2500, L100.0100 ####[facility] [address] [place], [address] MCHC Normal 32-36 [facility] Comment on above: Result Comment: Canc elled via OM: Order cancelled - Patient discharged Performed By: #### L 500.2500, L100.0100 ####[facility] [address] [place], [address] MCV Normal 80-94 [facility] Comment on above: Result Comment: Canc elled via OM: Order cancelled - Patient discharged Performed By: #### L 500.2500, L100.0100 ####[facility] [address] [place], [address] NEUT% Normal 47-70 [facility] Comment on above: Result Comment: Canc elled via OM: Order cancelled - Patient discharged Performed By: #### L 500.2500, L100.0100 ####[facility] [address] [place], [address] PLT Normal 150-450 [facility] Comment on above: Result Comment: Canc elled via OM: Order cancelled - Patient discharged Performed By: #### L 500.2500, L100.0100 ####[facility] [address] [place], [address] RBC Normal 4.6-6.2 [facility] Comment on above: Result Comment: Canc elled via OM: Order cancelled - Patient discharged Performed By: #### L 500.2500, L100.0100 ####[facility] [address] [place], [address] RDW CV Normal 11.6-14.6 [facility] Comment on above: Result Comment: Canc elled via OM: Order cancelled - Patient discharged Performed By: #### L 500.2500, L100.0100 ####[facility] [address] [place], [address] RDW SD Normal 35.1-43.9 [facility] Comment on above: Result Comment: Canc elled via OM: Order cancelled - Patient discharged Performed By: #### L 500.2500, L100.0100 ####[facility] [address] [place], [address] WBC Normal 4.4-11.0 [facility] Comment on above: Result Comment: Canc elled via OM: Order cancelled - Patient discharged Performed By: #### L 500.2500, L100.0100 ####[facility] [address] [place], [address] Basic Metabolic Profile (BMP )on 05-08-2025 BUN Normal 4-19 [facility] Comment on above: Result Comment: Canc elled via OM: Order cancelled - Patient discharged Performed By: #### L 500.2500, L100.0100 ####[facility] [address] [place], [address] BUN/CRE Normal 10-20 [facility] Comment on above: Result Comment: Canc elled via OM: Order cancelled - Patient discharged Performed By: #### L 500.2500, L100.0100 ####[facility] [address] [place], [address] Calcium Normal 7.6-11.0 [facility] Comment on above: Result Comment: Canc elled via OM: Order cancelled - Patient discharged Performed By: #### L 500.2500, L100.0100 ####[facility] [address] [place], [address] CL Normal 98-108 [facility] Comment on above: Result Comment: Canc elled via OM: Order cancelled - Patient discharged Performed By: #### L 500.2500, L100.0100 ####[facility] [address] [place], [address] CO2 Normal 21.0-32.0 [facility] Comment on above: Result Comment: Canc elled via OM: Order cancelled - Patient discharged Performed By: #### L 500.2500, L100.0100 ####[facility] [address] [place], [address] CREAT,SERUM Normal 0.70-1.20 [facility] Comment on above: Result Comment: Canc elled via OM: Order cancelled - Patient discharged Performed By: #### L 500.2500, L100.0100 ####[facility] [address] [place], [address] eGFR Normal >60 [facility] Comment on above: Result Comment: Canc elled via OM: Order cancelled - Patient discharged Performed By: #### L 500.2500, L100.0100 ####[facility] [address] [place], [address] GAP Normal 5-15 [facility] Comment on above: Result Comment: Canc elled via OM: Order cancelled - Patient discharged Performed By: #### L 500.2500, L100.0100 ####[facility] [address] [place], [address] GLU Normal 70-99 [facility] Comment on above: Result Comment: Canc elled via OM: Order cancelled - Patient discharged Performed By: #### L 500.2500, L100.0100 ####[facility] [address] [place], [address] Potassium Normal 3.3-5.1 [facility] Comment on above: Result Comment: Canc elled via OM: Order cancelled - Patient discharged Performed By: #### L 500.2500, L100.0100 ####[facility] [address] [place], [address] Basic Metabolic Profile (BMP) Normal 133-145 [facility] Comment on above: Result Comment: Canc elled via OM: Order cancelled - Patient discharged Performed By: #### L 500.2500, L100.0100 ####[facility] [address] [place], [address] CBC W/Diff, Automatedon 06-2 Absolute Neut Normal 2.0-7.7 [facility] Comment on above: Result Comment: Canc elled via OM: Order cancelled - Patient discharged Performed By: #### L 500.2500, L100.0100 ####[facility] [address] [place], [address] HCT Normal 40-54 [facility] Comment on above: Result Comment: Canc elled via OM: Order cancelled - Patient discharged Performed By: #### L 500.2500, L100.0100 ####[facility] [address] [place], [address] HGB Normal 13.0-16.5 [facility] Comment on above: Result Comment: Canc elled via OM: Order cancelled - Patient discharged Performed By: #### L 500.2500, L100.0100 ####[facility] [address] [place], [address] MCH Normal 27.0-32.0 [facility] Comment on above: Result Comment: Canc elled via OM: Order cancelled - Patient discharged Performed By: #### L 500.2500, L100.0100 ####[facility] [address] [place], [address] MCHC Normal 32-36 [facility] Comment on above: Result Comment: Canc elled via OM: Order cancelled - Patient discharged Performed By: #### L 500.2500, L100.0100 ####[facility] [address] [place], [address] MCV Normal 80-94 [facility] Comment on above: Result Comment: Canc elled via OM: Order cancelled - Patient discharged Performed By: #### L 500.2500, L100.0100 ####[facility] [address] [place], [address] NEUT% Normal 47-70 [facility] Comment on above: Result Comment: Canc elled via OM: Order cancelled - Patient discharged Performed By: #### L 500.2500, L100.0100 ####[facility] [address] [place], [address] PLT Normal 150-450 [facility] Comment on above: Result Comment: Canc elled via OM: Order cancelled - Patient discharged Performed By: #### L 500.2500, L100.0100 ####[facility] [address] [place], [address] RBC Normal 4.6-6.2 [facility] Comment on above: Result Comment: Canc elled via OM: Order cancelled - Patient discharged Performed By: #### L 500.2500, L100.0100 ####[facility] [address] [place], [address] RDW CV Normal 11.6-14.6 [facility] Comment on above: Result Comment: Canc elled via OM: Order cancelled - Patient discharged Performed By: #### L 500.2500, L100.0100 ####[facility] [address] [place], [address] RDW SD Normal 35.1-43.9 [facility] Comment on above: Result Comment: Canc elled via OM: Order cancelled - Patient discharged Performed By: #### L 500.2500, L100.0100 ####[facility] [address] [place], [address] WBC Normal 4.4-11.0 [facility] Comment on above: Result Comment: Canc elled via OM: Order cancelled - Patient discharged Performed By: #### L 500.2500, L100.0100 ####[facility] [address] [place], [address] Basic Metabolic Profile (BMP )on 05-07-2025 BUN Normal 4-19 [facility] Comment on above: Result Comment: Canc elled via OM: Order cancelled - Patient discharged Performed By: #### L 100.0100, L500.2500 ####[facility] [address] [place], [address] BUN/CRE Normal 10-20 [facility] Comment on above: Result Comment: Canc elled via OM: Order cancelled - Patient discharged Performed By: #### L 100.0100, L500.2500 ####[facility] [address] [place], [address] Calcium Normal 7.6-11.0 [facility] Comment on above: Result Comment: Canc elled via OM: Order cancelled - Patient discharged Performed By: #### L 100.0100, L500.2500 ####[facility] [address] [place], [address] CL Normal 98-108 [facility] Comment on above: Result Comment: Canc elled via OM: Order cancelled - Patient discharged Performed By: #### L 100.0100, L500.2500 ####[facility] [address] [place], [address] CO2 Normal 21.0-32.0 [facility] Comment on above: Result Comment: Canc elled via OM: Order cancelled - Patient discharged Performed By: #### L 100.0100, L500.2500 ####[facility] [address] [place], [address] CREAT,SERUM Normal 0.70-1.20 [facility] Comment on above: Result Comment: Canc elled via OM: Order cancelled - Patient discharged Performed By: #### L 100.0100, L500.2500 ####[facility] [address] [place], [address] eGFR Normal >60 [facility] Comment on above: Result Comment: Canc elled via OM: Order cancelled - Patient discharged Performed By: #### L 100.0100, L500.2500 ####[facility] [address] [place], [address] GAP Normal 5-15 [facility] Comment on above: Result Comment: Canc elled via OM: Order cancelled - Patient discharged Performed By: #### L 100.0100, L500.2500 ####[facility] [address] [place], [address] GLU Normal 70-99 [facility] Comment on above: Result Comment: Canc elled via OM: Order cancelled - Patient discharged Performed By: #### L 100.0100, L500.2500 ####[facility] [address] [place], [address] Potassium Normal 3.3-5.1 [facility] Comment on above: Result Comment: Canc elled via OM: Order cancelled - Patient discharged Performed By: #### L 100.0100, L500.2500 ####[facility] [address] [place], [address] Basic Metabolic Profile (BMP) Normal 133-145 [facility] Comment on above: Result Comment: Canc elled via OM: Order cancelled - Patient discharged Performed By: #### L 100.0100, L500.2500 ####[facility] [address] [place], [address] CBC W/Diff, Automatedon 06-2 0-2024 Absolute Neut Normal 2.0-7.7 [facility] Comment on above: Result Comment: Canc elled via OM: Order cancelled - Patient discharged Performed By: #### L 100.0100, L500.2500 ####[facility] [address] [place], [address] HCT Normal 40-54 [facility] Comment on above: Result Comment: Canc elled via OM: Order cancelled - Patient discharged Performed By: #### L 100.0100, L500.2500 ####[facility] [address] [place], [address] HGB Normal 13.0-16.5 [facility] Comment on above: Result Comment: Canc elled via OM: Order cancelled - Patient discharged Performed By: #### L 100.0100, L500.2500 ####[facility] [address] [place], [address] MCH Normal 27.0-32.0 [facility] Comment on above: Result Comment: Canc elled via OM: Order cancelled - Patient discharged Performed By: #### L 100.0100, L500.2500 ####[facility] [address] [place], [address] MCHC Normal 32-36 [facility] Comment on above: Result Comment: Canc elled via OM: Order cancelled - Patient discharged Performed By: #### L 100.0100, L500.2500 ####[facility] [address] [place], [address] MCV Normal 80-94 [facility] Comment on above: Result Comment: Canc elled via OM: Order cancelled - Patient discharged Performed By: #### L 100.0100, L500.2500 ####[facility] [address] [place], [address] NEUT% Normal 47-70 [facility] Comment on above: Result Comment: Canc elled via OM: Order cancelled - Patient discharged Performed By: #### L 100.0100, L500.2500 ####[facility] [address] [place], [address] PLT Normal 150-450 [facility] Comment on above: Result Comment: Canc elled via OM: Order cancelled - Patient discharged Performed By: #### L 100.0100, L500.2500 ####[facility] [address] [place], [address] RBC Normal 4.6-6.2 [facility] Comment on above: Result Comment: Canc elled via OM: Order cancelled - Patient discharged Performed By: #### L 100.0100, L500.2500 ####[facility] [address] [place], [address] RDW CV Normal 11.6-14.6 [facility] Comment on above: Result Comment: Canc elled via OM: Order cancelled - Patient discharged Performed By: #### L 100.0100, L500.2500 ####[facility] [address] [place], [address] RDW SD Normal 35.1-43.9 [facility] Comment on above: Result Comment: Canc elled via OM: Order cancelled - Patient discharged Performed By: #### L 100.0100, L500.2500 ####[facility] [address] [place], [address] WBC Normal 4.4-11.0 [facility] Comment on above: Result Comment: Canc elled via OM: Order cancelled - Patient discharged Performed By: #### L 100.0100, L500.2500 ####[facility] [address] [place], [address] Absolute lymphocyte countOrd ered By: Raven Ayala on 05-06-2025 Lymphocytes Auto (Unsp spec) [#/Vol] 1.26 10*3/uL 0.83-4.51 [facility] Absolute neutrophil countOrd ered By: Raven Ayala on 05-06-2025 Neutrophils (Bld) [#/Vol] 6.8 10*3/uL 2.0-7.7 [facility] Anion gap in Serum or Plasma Ordered By: Raven Ayala on 05-06-2025 Anion gap [Moles/Vol] 11 mmol/L 5-15 [facility] Automated lymphocyte count a s percentage of total leukocytesOrdered By: Raven Ayala on 05-06-2025 Lymphocytes/100 WBC Auto (Unsp spec) 14.1 % Low 19-41 [facility] BRCon 05-06-2025 RC Normal [facility] Comment on above: Result Comment: [id number] OP RC TRANSFUSED 05/06/25 1046 Performed By: #### B MARYCHUY, BTS ####[facility] [address] [place], [address] BUN/creatinine ratioOrdered By: Raven Ayala on 05-06-2025 Urea nitrogen/Creatinine [Mass ratio] 23.9 mg/mg High 10-20 [facility] Basic Metabolic Profile (BMP )on 05-06-2025 BUN/CRE 23.9 RATIO High 10-20 [facility] Comment on above: Performed By: #### L 100.0100, L500.2500 ####[facility] [address] [place], [address] Calcium [Mass/Vol] 7.5 mg/dL Low 7.6-11.0 [facility] Comment on above: Performed By: #### L 100.0100, L500.2500 ####[facility] [address] [place], [address] Chloride [Moles/Vol] 114 mmol/L High 98-108 [facility] Comment on above: Performed By: #### L 100.0100, L500.2500 ####[facility] [address] [place], [address] CO2 [Moles/Vol] 21.0 mmol/L Normal 21.0-32.0 [facility] Comment on above: Performed By: #### L 100.0100, L500.2500 ####[facility] [address] [place], [address] Creatinine [Mass/Vol] 2.37 mg/dL High 0.70-1.20 [facility] Comment on above: Performed By: #### L 100.0100, L500.2500 ####[facility] [address] [place], [address] ECRCL 21.31 ml/min Low 50-250 [facility] Comment on above: Performed By: #### L 100.0100, L500.2500 ####[facility] [address] [place], [address] GAP 11 Normal 5-15 [facility] Comment on above: Performed By: #### L 100.0100, L500.2500 ####[facility] [address] [place], [address] GFR/1.73 sq M.predicted among non-blacks MDRD (S/P/Bld) [Vol rate/Area] 27 mL/min/{1.73_m2} Low >60 [facility] Comment on above: Result Comment: mL/m in/1.73m2 CKD-EPI Creatinine Equation (2020) Performed By: #### L 100.0100, L500.2500 ####[facility] [address] [place], [address] Glucose [Mass/Vol] 92 mg/dL Normal 70-99 [facility] Comment on above: Performed By: #### L 100.0100, L500.2500 ####[facility] [address] [place], [address] Potassium [Moles/Vol] 3.4 mmol/L Normal 3.3-5.1 [facility] Comment on above: Performed By: #### L 100.0100, L500.2500 ####[facility] [address] [place], [address] Sodium [Moles/Vol] 146 mmol/L High 133-145 [facility] Comment on above: Performed By: #### L 100.0100, L500.2500 ####[facility] [address] [place], [address] Urea nitrogen [Mass/Vol] 57 mg/dL High 4-19 [facility] Comment on above: Performed By: #### L 100.0100, L500.2500 ####[facility] [address] [place], [address] Basophil percentageOrdered B y: Raven Ayala on 05-06-2024 Basophils/100 WBC (Bld) 0.1 % 0-1 [facility] CBC W/Diff, Automatedon 04-18 Absolute Lymph 1.26 X10 3/uL Normal 0.83-4.51 [facility] Comment on above: Performed By: #### L 100.0100, L500.2500 ####[facility] [address] [place], [address] Absolute Neut 6.8 X10 3/uL Normal 2.0-7.7 [facility] Comment on above: Performed By: #### L 100.0100, L500.2500 ####[facility] [address] [place], [address] Basophils/100 WBC (Bld) 0.1 % Normal 0-1 [facility] Comment on above: Performed By: #### L 100.0100, L500.2500 ####[facility] [address] [place], [address] Eosinophils/100 WBC (Bld) 2.7 % Normal 0-5 [facility] Comment on above: Performed By: #### L 100.0100, L500.2500 ####[facility] [address] [place], [address] Erythrocyte distribution width (RBC) [Ratio] 17.4 % High 11.6-14.6 [facility] Comment on above: Performed By: #### L 100.0100, L500.2500 ####[facility] [address] [place], [address] Hematocrit (Bld) [Volume fraction] 20.2 % Low 40-54 [facility] Comment on above: Performed By: #### L 100.0100, L500.2500 ####[facility] [address] [place], [address] Hemoglobin (Bld) [Mass/Vol] 6.7 g/dL Low 13.0-16.5 [facility] Comment on above: Performed By: #### L 100.0100, L500.2500 ####[facility] [address] [place], [address] IG% 0.400 Normal 0.0-0.9 [facility] Comment on above: Result Comment: IG% - Immature Granulocytes (promyelocytes, myelocytes andmetamyelocytes) > 1% indicates that a LEFT SHIFT is Present. Performed By: #### L 100.0100, L500.2500 ####[facility] [address] [place], [address] Lymphocytes/100 WBC (Bld) 14.1 % Low 19-41 [facility] Comment on above: Performed By: #### L 100.0100, L500.2500 ####[facility] [address] [place], [address] MCH (RBC) [Entitic mass] 32.7 pg High 27.0-32.0 [facility] Comment on above: Performed By: #### L 100.0100, L500.2500 ####[facility] [address] [place], [address] MCHC (RBC) [Mass/Vol] 33.2 g/dL Normal 32-36 [facility] Comment on above: Performed By: #### L 100.0100, L500.2500 ####[facility] [address] [place], [address] MCV (RBC) [Entitic vol] 98.5 fL High 80-94 [facility] Comment on above: Performed By: #### L 100.0100, L500.2500 ####[facility] [address] [place], [address] Monocytes/100 WBC (Bld) 6.3 % Normal 0-10 [facility] Comment on above: Performed By: #### L 100.0100, L500.2500 ####[facility] [address] [place], [address] Neutrophils/100 WBC (Bld) 76.4 % High 47-70 [facility] Comment on above: Performed By: #### L 100.0100, L500.2500 ####[facility] [address] [place], [address] Nucleated RBC (Bld) [#/Vol] 2.5 10*3/uL Normal 0-5 [facility] Comment on above: Performed By: #### L 100.0100, L500.2500 ####[facility] [address] [place], [address] Platelet mean volume (Bld) [Entitic vol] 11.5 fL Normal 6.2-12.0 [facility] Comment on above: Performed By: #### L 100.0100, L500.2500 ####[facility] [address] [place], [address] Platelets (Bld) [#/Vol] 341 10*3/uL Normal 150-450 [facility] Comment on above: Performed By: #### L 100.0100, L500.2500 ####[facility] [address] [place], [address] RBC (Bld) [#/Vol] 2.05 10*6/uL Low 4.6-6.2 [facility] Comment on above: Performed By: #### L 100.0100, L500.2500 ####[facility] [address] [place], [address] RDW SD 56.8 fl High 35.1-43.9 [facility] Comment on above: Performed By: #### L 100.0100, L500.2500 ####[facility] [address] [place], [address] WBC (Bld) [#/Vol] 8.9 10*3/uL Normal 4.4-11.0 [facility] Comment on above: Performed By: #### L 100.0100, L500.2500 ####[facility] [address] [place], [address] Carbon dioxide, total [Moles /volume] in Central venous bloodOrdered By: Raven Ayala on 05-06-2025 CO2 [Moles/Vol] 21.0 mmol/L 21.0-32.0 [facility] Chloride assayOrdered By: Alana Ayala on 05-06-2025 Chloride [Moles/Vol] 114 mmol/L High 98-108 [facility] Eosinophil percentageOrdered By: Raven Ayala on 05-06-2025 Eosinophils/100 WBC (Bld) 2.7 % 0-5 [facility] Erythrocyte distribution wid th ratioOrdered By: Raven Ayala on 05-06-2025 Erythrocyte distribution width (RBC) [Ratio] 17.4 % High 11.6-14.6 [facility] Erythrocyte distribution wid th standard deviationOrdered By: Raven Ayala on 05-06-2025 Erythrocyte distribution width (RBC) [Ratio] 56.8 fl High 35.1-43.9 [facility] Glomerular filtration rate ( GFR) estimation/1.73 sq m using serum, plasma, or whole bOrdered By: Raven Ayala on 05-06-2025 GFR/1.73 sq M.predicted among non-blacks MDRD (S/P/Bld) [Vol rate/Area] 27 mL/min/{1.73_m2} Low >60 [facility] Comment on above: mL/min/1.73m2 CKD-EP I Creatinine Equation (2020) Hematocrit Auto (Bld) [Volum e fraction]Ordered By: Raven Ayala on 05-06-2025 Hematocrit (Bld) [Volume fraction] 20.2 % Low 40-54 [facility] Hemoglobin measurementOrdere d By: Raven Ayala on 05-06-2025 Hemoglobin (Bld) [Mass/Vol] 6.7 g/dL Low 13.0-16.5 [facility] Immature granulocytes/100 WB C Auto (Bld)Ordered By: Raven Ayala on 05-06-2025 Immature granulocytes/100 WBC (Bld) 0.400 % 0.0-0.9 [facility] Comment on above: IG% - Immature Granu locytes (promyelocytes, myelocytes and metamyelocytes) > 1% indicates that a LEFT SHIFT is Present. MCV (mean corpuscular volume ) determinationOrdered By: Raven Ayala on 05-06-2025 MCV (RBC) [Entitic vol] 98.5 fL High 80-94 [facility] Mean corpuscular hemoglobin (MCH) determinationOrdered By: Raven Ayala on 05-06-2025 MCH (RBC) [Entitic mass] 32.7 pg High 27.0-32.0 [facility] Mean corpuscular hemoglobin concentration (MCHC) determinationOrdered By: Raven Ayala on 05-06-2025 MCHC (RBC) [Mass/Vol] 33.2 g/dL 32-36 [facility] Mean platelet volume determi nationOrdered By: Raven Ayala on 05-06-2025 Platelet mean volume (Bld) [Entitic vol] 11.5 fL 6.2-12.0 [facility] Monocyte percentageOrdered B y: Raven Ayala on 05-06-2025 Monocytes/100 WBC (Bld) 6.3 % 0-10 [facility] Neutrophil percentageOrdered By: Raven Ayala on 05-06-2025 Neutrophils/100 WBC (Bld) 76.4 % High 47-70 [facility] Nucleated red blood cell per centageOrdered By: Raven Ayala on 05-06-2025 Nucleated RBC/100 WBC (Bld) [Ratio] 2.5 % 0-5 [facility] Platelet countOrdered By: Alana Ayala on 05-06-2025 Platelets (Bld) [#/Vol] 341 10*3/uL 150-450 [facility] Potassium measurement (mass/ volume)Ordered By: Raven Ayala on 05-06-2025 Potassium (Unsp spec) [Mass/Vol] 3.4 mmol/L 3.3-5.1 [facility] RBC Auto (Bld) [#/Vol]Ordere d By: Raven Ayala on 05-06-2025 RBC (Bld) [#/Vol] 2.05 10*6/uL Low 4.6-6.2 [facility] Serum creatinine measurement (mass/volume)Ordered By: Raven Ayala on 05-06-2025 Creatinine [Mass/Vol] 2.37 mg/dL High 0.70-1.20 [facility] Serum glucose measurement (m ass/volume)Ordered By: Raven Ayala on 05-06-2025 Glucose [Mass/Vol] 92 mg/dL 70-99 [facility] Serum or plasma calcium devante urement (mass/volume)Ordered By: Raven Ayala on 05-06-2025 Calcium [Mass/Vol] 7.5 mg/dL Low 7.6-11.0 [facility] Serum or plasma urea nitroge n measurement (mass/volume)Ordered By: Raven Ayala on 05-06-2025 Urea nitrogen [Mass/Vol] 57 mg/dL High 4-19 [facility] Sodium levelOrdered By: Ale Ayala on 05-06-2025 Sodium [Moles/Vol] 146 mmol/L High 133-145 [facility] Type AND Screenon 05-06-2025 Ab SCREEN GEL Negative Normal [facility] Comment on above: Order Comment: CMV N EG? NNumber of units to transfuse: 1Is pt's Hgb is = to 7.0 mg/dl or Hct </= 21%? YReason for Ordering Blood: ChronicAre the blood/blood products to be transfused? YIs the patient having/had surgery? Young Dubon Performed By: #### B MARYCHUY BTS ####[facility] [address] [place], [place], [id number] White blood cell (WBC) count Ordered By: Raven Ayala on 05-06-2025 WBC (Bld) [#/Vol] 8.9 10*3/uL 4.4-11.0 [facility] Bedside Glucoseon 05-05-2025 FINGERSTICK GLU 118 mg/dL High 74-106 [facility] Comment on above: Result Comment: DIOR BUCIO OF PATIENT CARE PER NURSING PROTOCOL Performed By: #### L 501.080 ####[facility] [address] [place], [address] Bilirubin, totalOrdered By: Vern Rao on 05-05-2025 Bilirubin [Mass/Vol] 1.08 mg/dL 0.00-1.30 [facility] CBC W/Diff, Automatedon 04-18 Absolute Lymph 1.57 X10 3/uL Normal 0.83-4.51 [facility] Comment on above: Performed By: #### L 500.4050, L100.0100 ####[facility] [address] [place], [address] Absolute Neut 9.4 X10 3/uL High 2.0-7.7 [facility] Comment on above: Performed By: #### L 500.4050, L100.0100 ####[facility] [address] [place], [address] Basophils/100 WBC (Bld) 0.2 % Normal 0-1 [facility] Comment on above: Performed By: #### L 500.4050, L100.0100 ####[facility] [address] [place], [address] Eosinophils/100 WBC (Bld) 2.5 % Normal 0-5 [facility] Comment on above: Performed By: #### L 500.4050, L100.0100 ####[facility] [address] [place], [address] Erythrocyte distribution width (RBC) [Ratio] 17.0 % High 11.6-14.6 [facility] Comment on above: Performed By: #### L 500.4050, L100.0100 ####[facility] [address] [place], [address] Hematocrit (Bld) [Volume fraction] 20.9 % Low 40-54 [facility] Comment on above: Performed By: #### L 500.4050, L100.0100 ####[facility] [address] [place], [address] Hemoglobin (Bld) [Mass/Vol] 7.1 g/dL Low 13.0-16.5 [facility] Comment on above: Performed By: #### L 500.4050, L100.0100 ####[facility] [address] [place], [address] IG% 0.800 Normal 0.0-0.9 [facility] Comment on above: Result Comment: IG% - Immature Granulocytes (promyelocytes, myelocytes andmetamyelocytes) > 1% indicates that a LEFT SHIFT is Present. Performed By: #### L 500.4050, L100.0100 ####[facility] [address] [place], [address] Lymphocytes/100 WBC (Bld) 13.0 % Low 19-41 [facility] Comment on above: Performed By: #### L 500.4050, L100.0100 ####[facility] [address] [place], [address] MCH (RBC) [Entitic mass] 32.6 pg High 27.0-32.0 [facility] Comment on above: Performed By: #### L 500.4050, L100.0100 ####[facility] [address] [place], [address] MCHC (RBC) [Mass/Vol] 34.0 g/dL Normal 32-36 [facility] Comment on above: Performed By: #### L 500.4050, L100.0100 ####[facility] [address] [place], [address] MCV (RBC) [Entitic vol] 95.9 fL High 80-94 [facility] Comment on above: Performed By: #### L 500.4050, L100.0100 ####[facility] [address] [place], [address] Monocytes/100 WBC (Bld) 5.7 % Normal 0-10 [facility] Comment on above: Performed By: #### L 500.4050, L100.0100 ####[facility] [address] [place], [address] Neutrophils/100 WBC (Bld) 77.8 % High 47-70 [facility] Comment on above: Performed By: #### L 500.4050, L100.0100 ####[facility] [address] [place], [address] Nucleated RBC (Bld) [#/Vol] 4.4 10*3/uL Normal 0-5 [facility] Comment on above: Performed By: #### L 500.4050, L100.0100 ####[facility] [address] [place], [address] Platelet mean volume (Bld) [Entitic vol] 11.8 fL Normal 6.2-12.0 [facility] Comment on above: Performed By: #### L 500.4050, L100.0100 ####[facility] [address] [place], [address] Platelets (Bld) [#/Vol] 318 10*3/uL Normal 150-450 [facility] Comment on above: Performed By: #### L 500.4050, L100.0100 ####[facility] [address] [place], [address] RBC (Bld) [#/Vol] 2.18 10*6/uL Low 4.6-6.2 [facility] Comment on above: Performed By: #### L 500.4050, L100.0100 ####[facility] [address] [place], [address] RDW SD 53.8 fl High 35.1-43.9 [facility] Comment on above: Performed By: #### L 500.4050, L100.0100 ####[facility] [address] [place], [address] WBC (Bld) [#/Vol] 12.1 10*3/uL High 4.4-11.0 [facility] Comment on above: Performed By: #### L 500.4050, L100.0100 ####[facility] [address] [place], [address] Comprehensive Metabolic Prof [facility] 05-05-2025 Albumin [Mass/Vol] 2.6 g/dL Low 3.4-4.8 [facility] Comment on above: Performed By: #### L 500.4050, L100.0100 ####[facility] [address] [place], [address] Albumin/Globulin [Mass ratio] 1.2 {ratio} Normal 0.9-2.4 [facility] Comment on above: Performed By: #### L 500.4050, L100.0100 ####[facility] [address] [place], [address] ALK PHOS 107 U/L Normal 40-129 [facility] Comment on above: Performed By: #### L 500.4050, L100.0100 ####[facility] [address] [place], [address] ALT [Catalytic activity/Vol] 34 U/L Normal <=46 [facility] Comment on above: Performed By: #### L 500.4050, L100.0100 ####[facility] [address] [place], [address] AST [Catalytic activity/Vol] 82 U/L High <=37 [facility] Comment on above: Performed By: #### L 500.4050, L100.0100 ####[facility] [address] [place], [address] Bilirubin [Mass/Vol] 1.08 mg/dL Normal 0.00-1.30 [facility] Comment on above: Performed By: #### L 500.4050, L100.0100 ####[facility] [address] [place], [address] BUN/CRE 24.2 RATIO High 10-20 [facility] Comment on above: Performed By: #### L 500.4050, L100.0100 ####[facility] [address] [place], [address] Calcium [Mass/Vol] 7.5 mg/dL Low 7.6-11.0 [facility] Comment on above: Performed By: #### L 500.4050, L100.0100 ####[facility] [address] [place], [address] Chloride [Moles/Vol] 112 mmol/L High 98-108 [facility] Comment on above: Performed By: #### L 500.4050, L100.0100 ####[facility] [address] [place], [address] CO2 [Moles/Vol] 20.1 mmol/L Low 21.0-32.0 [facility] Comment on above: Performed By: #### L 500.4050, L100.0100 ####[facility] [address] [place], [address] Creatinine [Mass/Vol] 2.43 mg/dL High 0.70-1.20 [facility] Comment on above: Performed By: #### L 500.4050, L100.0100 ####[facility] [address] [place], [address] ECRCL 23.10 ml/min Low 50-250 [facility] Comment on above: Performed By: #### L 500.4050, L100.0100 ####[facility] [address] [place], [address] GAP 12 Normal 5-15 [facility] Comment on above: Performed By: #### L 500.4050, L100.0100 ####[facility] [address] [place], [address] GFR/1.73 sq M.predicted among non-blacks MDRD (S/P/Bld) [Vol rate/Area] 26 mL/min/{1.73_m2} Low >60 [facility] Comment on above: Result Comment: mL/m in/1.73m2 CKD-EPI Creatinine Equation (2020) Performed By: #### L 500.4050, L100.0100 ####[facility] [address] [place], [address] Globulin (S) [Mass/Vol] 2.2 g/dL Normal 2.2-4.2 [facility] Comment on above: Performed By: #### L 500.4050, L100.0100 ####[facility] [address] [place], [address] Glucose [Mass/Vol] 117 mg/dL High 70-99 [facility] Comment on above: Performed By: #### L 500.4050, L100.0100 ####[facility] [address] [place], [address] Potassium [Moles/Vol] 3.0 mmol/L Low 3.3-5.1 [facility] Comment on above: Performed By: #### L 500.4050, L100.0100 ####[facility] [address] [place], [address] Sodium [Moles/Vol] 144 mmol/L Normal 133-145 [facility] Comment on above: Performed By: #### L 500.4050, L100.0100 ####[facility] [address] [place], [address] T PROT 4.8 g/dL Low 5.9-8.4 [facility] Comment on above: Performed By: #### L 500.4050, L100.0100 ####[facility] [address] [place], [address] Urea nitrogen [Mass/Vol] 59 mg/dL High 4-19 [facility] Comment on above: Performed By: #### L 500.4050, L100.0100 ####[facility] [address] [place], [address] [facility] deOrdered By: Vern Rao on 05-05-2025 Glucose [Mass/Vol] 118 mg/dL High 74-106 [facility] Comment on above: MANAGEMENT OF PATIEN T CARE PER NURSING PROTOCOL Laboratory - Chemistry and C hemistry - challengeOrdered By: Vern Rao on 05-05-2025 AST [Catalytic activity/Vol] 82 U/L High <38 [facility] Serum globulin measurementOr dered By: Vern Rao on 05-05-2025 Globulin (S) [Mass/Vol] 2.2 g/dL 2.2-4.2 [facility] Serum or plasma alanine torres otransferase (ALT) measurementOrdered By: Vern Rao on 05-05-2025 ALT [Catalytic activity/Vol] 34 U/L <47 [facility] Serum or plasma albumin devante urement (mass/volume)Ordered By: Vern Rao on 05-05-2025 Albumin [Mass/Vol] 2.6 g/dL Low 3.4-4.8 [facility] Serum or plasma albumin/glob ulin mass ratioOrdered By: Vern Rao on 05-05-2025 Albumin/Globulin [Mass ratio] 1.2 {ratio} 0.9-2.4 [facility] Serum or plasma alkaline cricket sphatase measurementOrdered By: Vern Luan on 05-05-2025 ALP [Catalytic activity/Vol] 107 U/L 40-129 [facility] Total proteinOrdered By: Gris cooper Luan on 05-05-2025 Protein [Mass/Vol] 4.8 g/dL Low 5.9-8.4 [facility] Basic Metabolic Profile (BMP )on 05-04-2025 BUN/CRE 22.9 RATIO High 10-20 [facility] Comment on above: Performed By: #### L 500.2500 ####[facility] [address] [place], [address] Calcium [Mass/Vol] 8.2 mg/dL Normal 7.6-11.0 [facility] Comment on above: Performed By: #### L 500.2500 ####[facility] [address] [place], [address] Chloride [Moles/Vol] 113 mmol/L High 98-108 [facility] Comment on above: Performed By: #### L 500.2500 ####[facility] [address] [place], [address] CO2 [Moles/Vol] 20.5 mmol/L Low 21.0-32.0 [facility] Comment on above: Performed By: #### L 500.2500 ####[facility] [address] [place], [address] Creatinine [Mass/Vol] 2.57 mg/dL High 0.70-1.20 [facility] Comment on above: Performed By: #### L 500.2500 ####[facility] [address] [place], [address] ECRCL 19.65 ml/min Low 50-250 [facility] Comment on above: Performed By: #### L 500.2500 ####[facility] [address] [place], [address] GAP 14 Normal 5-15 [facility] Comment on above: Performed By: #### L 500.2500 ####[facility] [address] [place], [address] GFR/1.73 sq M.predicted among non-blacks MDRD (S/P/Bld) [Vol rate/Area] 24 mL/min/{1.73_m2} Low >60 [facility] Comment on above: Result Comment: mL/m in/1.73m2 CKD-EPI Creatinine Equation (2020) Performed By: #### L 500.2500 ####[facility] [address] [place], [address] Glucose [Mass/Vol] 100 mg/dL High 70-99 [facility] Comment on above: Performed By: #### L 500.2500 ####[facility] [address] [place], [address] Potassium [Moles/Vol] 4.1 mmol/L Normal 3.3-5.1 [facility] Comment on above: Performed By: #### L 500.2500 ####[facility] [address] [place], [address] Sodium [Moles/Vol] 148 mmol/L High 133-145 [facility] Comment on above: Performed By: #### L 500.2500 ####[facility] [address] [place], [address] Urea nitrogen [Mass/Vol] 59 mg/dL High 4-19 [facility] Comment on above: Performed By: #### L 500.2500 ####[facility] [address] [place], [address] Bedside Glucoseon 05-04-2025 FINGERSTICK GLU 147 mg/dL High 74-106 [facility] Comment on above: Result Comment: DIOR GEMENT OF PATIENT CARE PER NURSING PROTOCOL Performed By: #### L 501.080 ####[facility] [address] [place], [address] FINGERSTICK GLU 131 mg/dL High 74-106 [facility] Comment on above: Result Comment: DIOR GEMENT OF PATIENT CARE PER NURSING PROTOCOL Performed By: #### L 501.080 ####[facility] [address] [place], [address] FINGERSTICK GLU 133 mg/dL High 74-106 [facility] Comment on above: Result Comment: DIOR GEMENT OF PATIENT CARE PER NURSING PROTOCOL Performed By: #### L 501.080 ####[facility] [address] [place], [address] FINGERSTICK GLU 93 mg/dL Normal 74-106 [facility] Comment on above: Result Comment: DIOR GEMENT OF PATIENT CARE PER NURSING PROTOCOL Performed By: #### L 501.080 ####[facility] [address] [place], [address] Electrocardiogram reportOrde red By: Tono Carr on 05-04-2025 EKG study [facility] [address] [place] [address] 12 Lead EKG 05/02/25 2108 MR#: [id number] Acct: [id number] Name: MICHAEL MULLINS Rep #:[id number] : 1940 85 From: Tono Carr MD Attending Dr: Dr. Vern Rao, DO Status: ADM IN Ordering Dr: Mira Mims DO Date: Location: [facility] Sex: M C Admitted: 04/23/25 Test Reason : cp Blood Pressure : */* mmHG Vent. Rate : 86 BPM Atrial Rate : 86 BPM P-R Int : 144 ms QRS Dur : 120 ms QT Int : 402 ms P-R-T Axes : 30 -11 136 degrees QTcB Int : 481 ms Normal sinus rhythm with sinus arrhythmia Cannot rule out Anterior infarct (cited on or before 29-Apr-2025) ST & T wave abnormality, consider lateral ischemia Abnormal ECG Confirmed by NATALIO MALCOLM, TONO ([id number]), publication editor ELGIN ROJO ([id number]) on 58:26:08 AM Referred By: Confirmed By: TONO CARR MD 05/04/25825 Date _ Tono Carr MD CC: Dr. Mira Mims DO; Dr. Vern Rao DO; Dr. Baron Espinoza MD ~ Signed [facility] Other Phone: Basic Metabolic Profile (BMP )on 05-03-2025 BUN/CRE 24.8 RATIO High 10-20 [facility] Comment on above: Performed By: #### L 500.2500, L100.0100 ####[facility] [address] [place], [address] Calcium [Mass/Vol] 8.4 mg/dL Normal 7.6-11.0 [facility] Comment on above: Performed By: #### L 500.2500, L100.0100 ####[facility] [address] [place], [address] Chloride [Moles/Vol] 118 mmol/L High 98-108 [facility] Comment on above: Performed By: #### L 500.2500, L100.0100 ####[facility] [address] [place], [address] CO2 [Moles/Vol] 18.5 mmol/L Low 21.0-32.0 [facility] Comment on above: Performed By: #### L 500.2500, L100.0100 ####[facility] [address] [place], [address] Creatinine [Mass/Vol] 2.27 mg/dL High 0.70-1.20 [facility] Comment on above: Performed By: #### L 500.2500, L100.0100 ####[facility] [address] [place], [address] ECRCL 22.25 ml/min Low 50-250 [facility] Comment on above: Performed By: #### L 500.2500, L100.0100 ####[facility] [address] [place], [address] GAP 13 Normal 5-15 [facility] Comment on above: Performed By: #### L 500.2500, L100.0100 ####[facility] [facility] [address] [place], [address] GFR/1.73 sq M.predicted among non-blacks MDRD (S/P/Bld) [Vol rate/Area] 28 mL/min/{1.73_m2} Low >60 [facility] Comment on above: Result Comment: mL/m in/1.73m2 CKD-EPI Creatinine Equation (2020) Performed By: #### L 500.2500, L100.0100 ####[facility] [address] [place], [address] Glucose [Mass/Vol] 112 mg/dL High 70-99 [facility] Comment on above: Performed By: #### L 500.2500, L100.0100 ####[facility] [address] [place], [address] Potassium [Moles/Vol] 4.2 mmol/L Normal 3.3-5.1 [facility] Comment on above: Performed By: #### L 500.2500, L100.0100 ####[facility] [address] [place], [address] Sodium [Moles/Vol] 150 mmol/L High 133-145 [facility] Comment on above: Performed By: #### L 500.2500, L100.0100 ####[facility] [address] [place], [address] Urea nitrogen [Mass/Vol] 56 mg/dL High 4-19 [facility] Comment on above: Performed By: #### L 500.2500, L100.0100 ####[facility] [address] [place], [address] Bedside Glucoseon 05-03-2025 FINGERSTICK GLU 102 mg/dL Normal 74-106 [facility] Comment on above: Result Comment: DIOR GEMENT OF PATIENT CARE PER NURSING PROTOCOL Performed By: #### L 501.080 ####[facility] [address] [place], [address] FINGERSTICK GLU 131 mg/dL High 74-106 [facility] Comment on above: Result Comment: DIOR GEMENT OF PATIENT CARE PER NURSING PROTOCOL Performed By: #### L 501.080 ####[facility] [address] [place], [address] FINGERSTICK GLU 137 mg/dL High 74-106 [facility] Comment on above: Result Comment: DIOR GEMENT OF PATIENT CARE PER NURSING PROTOCOL Performed By: #### L 501.080 ####[facility] [address] [place], [address] CBC W/Diff, Automatedon 04-18 Absolute Lymph 1.79 X10 3/uL Normal 0.83-4.51 [facility] Comment on above: Performed By: #### L 500.2500, L100.0100 ####[facility] [address] [place], [address] Absolute Neut 11.0 X10 3/uL High 2.0-7.7 [facility] Comment on above: Performed By: #### L 500.2500, L100.0100 ####[facility] [address] [place], [address] Basophils/100 WBC (Bld) 0.2 % Normal 0-1 [facility] Comment on above: Performed By: #### L 500.2500, L100.0100 ####[facility] [address] [place], [address] Eosinophils/100 WBC (Bld) 3.1 % Normal 0-5 [facility] Comment on above: Performed By: #### L 500.2500, L100.0100 ####[facility] [address] [place], [address] Erythrocyte distribution width (RBC) [Ratio] 17.4 % High 11.6-14.6 [facility] Comment on above: Performed By: #### L 500.2500, L100.0100 ####[facility] [address] [place], [address] Hematocrit (Bld) [Volume fraction] 24.9 % Low 40-54 [facility] Comment on above: Performed By: #### L 500.2500, L100.0100 ####[facility] [address] [place], [address] Hemoglobin (Bld) [Mass/Vol] 8.4 g/dL Low 13.0-16.5 [facility] Comment on above: Performed By: #### L 500.2500, L100.0100 ####[facility] [address] [place], [address] IG% 0.900 Normal 0.0-0.9 [facility] Comment on above: Result Comment: IG% - Immature Granulocytes (promyelocytes, myelocytes andmetamyelocytes) > 1% indicates that a LEFT SHIFT is Present. Performed By: #### L 500.2500, L100.0100 ####[facility] [address] [place], [address] Lymphocytes/100 WBC (Bld) 12.7 % Low 19-41 [facility] Comment on above: Performed By: #### L 500.2500, L100.0100 ####[facility] [address] [place], [address] MCH (RBC) [Entitic mass] 32.6 pg High 27.0-32.0 [facility] Comment on above: Performed By: #### L 500.2500, L100.0100 ####[facility] [address] [place], [address] MCHC (RBC) [Mass/Vol] 33.7 g/dL Normal 32-36 [facility] Comment on above: Performed By: #### L 500.2500, L100.0100 ####[facility] [address] [place], [address] MCV (RBC) [Entitic vol] 96.5 fL High 80-94 [facility] Comment on above: Performed By: #### L 500.2500, L100.0100 ####[facility] [address] [place], [address] Monocytes/100 WBC (Bld) 5.2 % Normal 0-10 [facility] Comment on above: Performed By: #### L 500.2500, L100.0100 ####[facility] [address] [place], [address] Neutrophils/100 WBC (Bld) 77.9 % High 47-70 [facility] Comment on above: Performed By: #### L 500.2500, L100.0100 ####[facility] [address] [place], [address] Nucleated RBC (Bld) [#/Vol] 3.9 10*3/uL Normal 0-5 [facility] Comment on above: Performed By: #### L 500.2500, L100.0100 ####[facility] [address] [place], [address] Platelet mean volume (Bld) [Entitic vol] 12.4 fL High 6.2-12.0 [facility] Comment on above: Performed By: #### L 500.2500, L100.0100 ####[facility] [address] [place], [address] Platelets (Bld) [#/Vol] 295 10*3/uL Normal 150-450 [facility] Comment on above: Performed By: #### L 500.2500, L100.0100 ####[facility] [address] [place], [address] RBC (Bld) [#/Vol] 2.58 10*6/uL Low 4.6-6.2 [facility] Comment on above: Performed By: #### L 500.2500, L100.0100 ####[facility] [address] [place], [address] RDW SD 56.5 fl High 35.1-43.9 [facility] Comment on above: Performed By: #### L 500.2500, L100.0100 ####[facility] [address] [place], [address] WBC (Bld) [#/Vol] 14.1 10*3/uL High 4.4-11.0 [facility] Comment on above: Performed By: #### L 500.2500, L100.0100 ####[facility] [address] [place], [address] 12 Lead EKGon 05-02-2025 12 Lead EKG Normal [facility] Basic Metabolic Profile (BMP )on 05-02-2025 BUN/CRE 28.4 RATIO High 10-20 [facility] Comment on above: Performed By: #### L 500.2500 ####[facility] [address] [place], [address] Calcium [Mass/Vol] 8.2 mg/dL Normal 7.6-11.0 [facility] Comment on above: Performed By: #### L 500.2500 ####[facility] [address] [place], [address] Chloride [Moles/Vol] 124 mmol/L High 98-108 [facility] Comment on above: Performed By: #### L 500.2500 ####[facility] [address] [place], [address] CO2 [Moles/Vol] 17.0 mmol/L Low 21.0-32.0 [facility] Comment on above: Performed By: #### L 500.2500 ####[facility] [address] [place], [address] Creatinine [Mass/Vol] 1.97 mg/dL High 0.70-1.20 [facility] Comment on above: Performed By: #### L 500.2500 ####[facility] [address] [place], [address] ECRCL 25.64 ml/min Low 50-250 [facility] Comment on above: Performed By: #### L 500.2500 ####[facility] [address] [place], [address] GAP 10 Normal 5-15 [facility] Comment on above: Performed By: #### L 500.2500 ####[facility] [address] [place], [address] GFR/1.73 sq M.predicted among non-blacks MDRD (S/P/Bld) [Vol rate/Area] 33 mL/min/{1.73_m2} Low >60 [facility] Comment on above: Result Comment: mL/m in/1.73m2 CKD-EPI Creatinine Equation (2020) Performed By: #### L 500.2500 ####[facility] [address] [place], [address] Glucose [Mass/Vol] 107 mg/dL High 70-99 [facility] Comment on above: Performed By: #### L 500.2500 ####[facility] [address] [place], [address] Potassium [Moles/Vol] 4.7 mmol/L Normal 3.3-5.1 [facility] Comment on above: Performed By: #### L 500.2500 ####[facility] [address] [place], [address] Sodium [Moles/Vol] 151 mmol/L High 133-145 [facility] Comment on above: Performed By: #### L 500.2500 ####[facility] [address] [place], [address] Urea nitrogen [Mass/Vol] 56 mg/dL High 4-19 [facility] Comment on above: Performed By: #### L 500.2500 ####[facility] [address] [place], [address] BUN/CRE 29.8 RATIO High 10-20 [facility] Comment on above: Performed By: #### L 500.2500 ####[facility] [address] [place], [address] Calcium [Mass/Vol] 8.2 mg/dL Normal 7.6-11.0 [facility] Comment on above: Performed By: #### L 500.2500 ####[facility] [address] [place], [address] Chloride [Moles/Vol] 125 mmol/L High 98-108 [facility] Comment on above: Performed By: #### L 500.2500 ####[facility] [address] [place], [address] CO2 [Moles/Vol] 15.2 mmol/L Low 21.0-32.0 [facility] Comment on above: Performed By: #### L 500.2500 ####[facility] [address] [place], [address] Creatinine [Mass/Vol] 1.81 mg/dL High 0.70-1.20 [facility] Comment on above: Performed By: #### L 500.2500 ####[facility] [address] [place], [address] ECRCL 27.91 ml/min Low 50-250 [facility] Comment on above: Performed By: #### L 500.2500 ####[facility] [address] [place], [address] GAP 12 Normal 5-15 [facility] Comment on above: Performed By: #### L 500.2500 ####[facility] [address] [place], [address] GFR/1.73 sq M.predicted among non-blacks MDRD (S/P/Bld) [Vol rate/Area] 37 mL/min/{1.73_m2} Low >60 [facility] Comment on above: Result Comment: mL/m in/1.73m2 CKD-EPI Creatinine Equation (2020) Performed By: #### L 500.2500 ####[facility] [address] [place], [address] Glucose [Mass/Vol] 106 mg/dL High 70-99 [facility] Comment on above: Performed By: #### L 500.2500 ####[facility] [address] [place], [address] Potassium [Moles/Vol] 4.4 mmol/L Normal 3.3-5.1 [facility] Comment on above: Performed By: #### L 500.2500 ####[facility] [address] [place], [address] Sodium [Moles/Vol] 152 mmol/L High 133-145 [facility] Comment on above: Performed By: #### L 500.2500 ####[facility] [address] [place], [address] Urea nitrogen [Mass/Vol] 54 mg/dL High 4-19 [facility] Comment on above: Performed By: #### L 500.2500 ####[facility] [address] [place], [address] Bedside Glucoseon 05-02-2025 FINGERSTICK GLU 107 mg/dL High 74-106 [facility] Comment on above: Result Comment: DIOR GEMENT OF PATIENT CARE PER NURSING PROTOCOL Performed By: #### L 501.080 ####[facility] [address] [place], [address] FINGERSTICK GLU 122 mg/dL High 74-106 [facility] Comment on above: Result Comment: DIOR GEMENT OF PATIENT CARE PER NURSING PROTOCOL Performed By: #### L 501.080 ####[facility] [address] [place], [address] FINGERSTICK GLU 100 mg/dL Normal 74-106 [facility] Comment on above: Result Comment: DIOR GEMENT OF PATIENT CARE PER NURSING PROTOCOL Performed By: #### L 501.080 ####[facility] [address] [place], [address] FINGERSTICK GLU 95 mg/dL Normal 74-106 [facility] Comment on above: Result Comment: DIOR GEMENT OF PATIENT CARE PER NURSING PROTOCOL Performed By: #### L 501.080 ####[facility] [address] [place], [address] CBC W/Diff, Automatedon - Absolute Lymph 0.92 X10 3/uL Normal 0.83-4.51 [facility] Comment on above: Performed By: #### L 100.0100 ####[facility] [address] [place], [address] Absolute Neut 10.1 X10 3/uL High 2.0-7.7 [facility] Comment on above: Performed By: #### L 100.0100 ####[facility] [address] [place], [address] Basophils/100 WBC (Bld) 0.1 % Normal 0-1 [facility] Comment on above: Performed By: #### L 100.0100 ####[facility] [address] [place], [address] Eosinophils/100 WBC (Bld) 0.4 % Normal 0-5 [facility] Comment on above: Performed By: #### L 100.0100 ####[facility] [address] [place], [address] Erythrocyte distribution width (RBC) [Ratio] 16.6 % High 11.6-14.6 [facility] Comment on above: Performed By: #### L 100.0100 ####[facility] [address] [place], [address] Hematocrit (Bld) [Volume fraction] 21.9 % Low 40-54 [facility] Comment on above: Performed By: #### L 100.0100 ####[facility] [address] [place], [address] Hemoglobin (Bld) [Mass/Vol] 7.3 g/dL Low 13.0-16.5 [facility] Comment on above: Performed By: #### L 100.0100 ####[facility] [address] [place], [address] IG% 1.200 High 0.0-0.9 [facility] Comment on above: Result Comment: IG% - Immature Granulocytes (promyelocytes, myelocytes andmetamyelocytes) > 1% indicates that a LEFT SHIFT is Present. Performed By: #### L 100.0100 ####[facility] [address] [place], [address] Lymphocytes/100 WBC (Bld) 7.7 % Low 19-41 [facility] Comment on above: Performed By: #### L 100.0100 ####[facility] [address] [place], [address] MCH (RBC) [Entitic mass] 31.9 pg Normal 27.0-32.0 [facility] Comment on above: Performed By: #### L 100.0100 ####[facility] [address] [place], [address] MCHC (RBC) [Mass/Vol] 33.3 g/dL Normal 32-36 [facility] Comment on above: Performed By: #### L 100.0100 ####[facility] [address] [place], [address] MCV (RBC) [Entitic vol] 95.6 fL High 80-94 [facility] Comment on above: Performed By: #### L 100.0100 ####[facility] [address] [place], [address] Monocytes/100 WBC (Bld) 5.8 % Normal 0-10 [facility] Comment on above: Performed By: #### L 100.0100 ####[facility] [address] [place], [address] Neutrophils/100 WBC (Bld) 84.8 % High 47-70 [facility] Comment on above: Performed By: #### L 100.0100 ####[facility] [address] [place], [address] Nucleated RBC (Bld) [#/Vol] 4.5 10*3/uL Normal 0-5 [facility] Comment on above: Performed By: #### L 100.0100 ####[facility] [address] [place], [address] Platelet mean volume (Bld) [Entitic vol] 11.3 fL Normal 6.2-12.0 [facility] Comment on above: Performed By: #### L 100.0100 ####[facility] [address] [place], [address] Platelets (Bld) [#/Vol] 226 10*3/uL Normal 150-450 [facility] Comment on above: Performed By: #### L 100.0100 ####[facility] [address] [place], [address] RBC (Bld) [#/Vol] 2.29 10*6/uL Low 4.6-6.2 [facility] Comment on above: Performed By: #### L 100.0100 ####[facility] [address] [place], [address] RDW SD 56.1 fl High 35.1-43.9 [facility] Comment on above: Performed By: #### L 100.0100 ####[facility] [address] [place], [address] WBC (Bld) [#/Vol] 11.9 10*3/uL High 4.4-11.0 [facility] Comment on above: Performed By: #### L 100.0100 ####[facility] [address] [place], [address] Absolute Lymph 0.28 X10 3/uL Low 0.83-4.51 [facility] Comment on above: Performed By: #### L 503.7505, L100.0100 ####[facility] [address] [place], [address] Absolute Neut 11.6 X10 3/uL High 2.0-7.7 [facility] Comment on above: Performed By: #### L 503.7505, L100.0100 ####[facility] [address] [place], [address] Basophils/100 WBC (Bld) 0.1 % Normal 0-1 [facility] Comment on above: Performed By: #### L 503.7505, L100.0100 ####[facility] [address] [place], [address] Eosinophils/100 WBC (Bld) 0.2 % Normal 0-5 [facility] Comment on above: Performed By: #### L 503.7505, L100.0100 ####[facility] [address] [place], [address] Erythrocyte distribution width (RBC) [Ratio] 16.9 % High 11.6-14.6 [facility] Comment on above: Performed By: #### L 503.7505, L100.0100 ####[facility] [address] [place], [address] Hematocrit (Bld) [Volume fraction] 21.3 % Low 40-54 [facility] Comment on above: Performed By: #### L 503.7505, L100.0100 ####[facility] [address] [place], [address] Hemoglobin (Bld) [Mass/Vol] 7.2 g/dL Low 13.0-16.5 [facility] Comment on above: Performed By: #### L 503.7505, L100.0100 ####[facility] [address] [place], [address] IG% 1.000 High 0.0-0.9 [facility] Comment on above: Result Comment: IG% - Immature Granulocytes (promyelocytes, myelocytes andmetamyelocytes) > 1% indicates that a LEFT SHIFT is Present. Performed By: #### L 503.7505, L100.0100 ####[facility] [address] [place], [address] Lymphocytes/100 WBC (Bld) 2.2 % Low 19-41 [facility] Comment on above: Performed By: #### L 503.7505, L100.0100 ####[facility] [address] [place], [address] MCH (RBC) [Entitic mass] 32.4 pg High 27.0-32.0 [facility] Comment on above: Performed By: #### L 503.7505, L100.0100 ####[facility] [address] [place], [address] MCHC (RBC) [Mass/Vol] 33.8 g/dL Normal 32-36 [facility] Comment on above: Performed By: #### L 503.7505, L100.0100 ####[facility] [address] [place], [address] MCV (RBC) [Entitic vol] 95.9 fL High 80-94 [facility] Comment on above: Performed By: #### L 503.7505, L100.0100 ####[facility] [address] [place], [address] Monocytes/100 WBC (Bld) 4.5 % Normal 0-10 [facility] Comment on above: Performed By: #### L 503.7505, L100.0100 ####[facility] [address] [place], [address] Neutrophils/100 WBC (Bld) 92.0 % High 47-70 [facility] Comment on above: Performed By: #### L 503.7505, L100.0100 ####[facility] [address] [place], [address] Nucleated RBC (Bld) [#/Vol] 4.0 10*3/uL Normal 0-5 [facility] Comment on above: Performed By: #### L 503.7505, L100.0100 ####[facility] [address] [place], [address] Platelet mean volume (Bld) [Entitic vol] 10.8 fL Normal 6.2-12.0 [facility] Comment on above: Performed By: #### L 503.7505, L100.0100 ####[facility] [address] [place], [address] Platelets (Bld) [#/Vol] 208 10*3/uL Normal 150-450 [facility] Comment on above: Performed By: #### L 503.7505, L100.0100 ####[facility] [address] [place], [address] RBC (Bld) [#/Vol] 2.22 10*6/uL Low 4.6-6.2 [facility] Comment on above: Performed By: #### L 503.7505, L100.0100 ####[facility] [address] [place], [address] RDW SD 57.7 fl High 35.1-43.9 [facility] Comment on above: Performed By: #### L 503.7505, L100.0100 ####[facility] [address] [place], [address] WBC (Bld) [#/Vol] 12.6 10*3/uL High 4.4-11.0 [facility] Comment on above: Performed By: #### L 503.7505, L100.0100 ####[facility] [address] [place], [address] L503.7505on 05-02-2025 Natriuretic peptide B (Bld) [Mass/Vol] 44689 pg/mL High <=1800 [facility] Comment on above: Result Comment: Hear t Failure Unlikely: < 300 pg/mLHeart Failure Likely< 50 Years: > 450 pg/mL50-75 Years: > 900 pg/mL>75 Years: > 1800 pg/mL Performed By: #### L 503.7505, L100.0100 ####[facility] [address] [place], [address] Natriuretic peptide.B prohor tabby N-Terminal [Mass/volume] in Serum or PlasmaOrdered By: Mira Mims on 05-02-2025 Natriuretic peptide.B prohormone N-Terminal [Mass/Vol] 77413 pg/mL High <1800 [facility] Comment on above: Heart Failure Unlike ly: < 300 pg/mLHeart Failure Likely< 50 Years: > 450 pg/mL50-75 Years: > 900 pg/mL>75 Years: > 1800 pg/mL Assessment of wrist artery p atency prior to arterial punctureOrdered By: Vern Rao on 05-01-2025 Arterial patency Wrist artery --pre arterial puncture N/A [facility] Basic Metabolic Profile (BMP )on 05-01-2025 BUN/CRE 31.8 RATIO High 10-20 [facility] Comment on above: Performed By: #### L 500.2500 ####[facility] [address] [place], [address] Calcium [Mass/Vol] 8.1 mg/dL Normal 7.6-11.0 [facility] Comment on above: Performed By: #### L 500.2500 ####[facility] [address] [place], [address] Chloride [Moles/Vol] 127 mmol/L Invalid Interpretation Code 98-108 [facility] Comment on above: Result Comment: Crit ical Result(s) Called at: 05/01/2025-06:38 by: Yogi Corrigan??Results read back by same. Performed By: #### L 500.2500 ####[facility] [address] [place], [address] CO2 [Moles/Vol] 15.3 mmol/L Low 21.0-32.0 [facility] Comment on above: Performed By: #### L 500.2500 ####[facility] [address] [place], [address] Creatinine [Mass/Vol] 1.83 mg/dL High 0.70-1.20 [facility] Comment on above: Performed By: #### L 500.2500 ####[facility] [address] [place], [address] ECRCL 27.60 ml/min Low 50-250 [facility] Comment on above: Performed By: #### L 500.2500 ####[facility] [address] [place], [address] GAP 9 Normal 5-15 [facility] Comment on above: Performed By: #### L 500.2500 ####[facility] [address] [place], [address] GFR/1.73 sq M.predicted among non-blacks MDRD (S/P/Bld) [Vol rate/Area] 36 mL/min/{1.73_m2} Low >60 [facility] Comment on above: Result Comment: mL/m in/1.73m2 CKD-EPI Creatinine Equation (2020) Performed By: #### L 500.2500 ####[facility] [address] [place], [address] Glucose [Mass/Vol] 142 mg/dL High 70-99 [facility] Comment on above: Performed By: #### L 500.2500 ####[facility] [address] [place], [address] Potassium [Moles/Vol] 4.5 mmol/L Normal 3.3-5.1 [facility] Comment on above: Performed By: #### L 500.2500 ####[facility] [address] [place], [address] Sodium [Moles/Vol] 151 mmol/L High 133-145 [facility] Comment on above: Performed By: #### L 500.2500 ####[facility] [address] [place], [address] Urea nitrogen [Mass/Vol] 58 mg/dL High 4-19 [facility] Comment on above: Performed By: #### L 500.2500 ####[facility] [address] [place], [address] Bedside Glucoseon 05-01-2025 FINGERSTICK GLU 129 mg/dL High 74-106 [facility] Comment on above: Result Comment: DIOR GEMENT OF PATIENT CARE PER NURSING PROTOCOL Performed By: #### L 501.080 ####[facility] [address] [place], [address] FINGERSTICK GLU 121 mg/dL High 74-106 [facility] Comment on above: Result Comment: DIOR GEMENT OF PATIENT CARE PER NURSING PROTOCOL Performed By: #### L 501.080 ####[facility] [address] [place], [address] FINGERSTICK GLU 120 mg/dL High 74-106 [facility] Comment on above: Result Comment: DIOR GEMENT OF PATIENT CARE PER NURSING PROTOCOL Performed By: #### L 501.080 ####[facility] [address] [place], [address] FINGERSTICK GLU 132 mg/dL High 74-106 [facility] Comment on above: Result Comment: DIOR GEMENT OF PATIENT CARE PER NURSING PROTOCOL Performed By: #### L 501.080 ####[facility] [address] [place], [address] [facility] SAM[facility]THA TEST N/A Normal [facility] Comment on above: Performed By: #### L 9000.0800 ####[facility] [address] [place], [address] Base excess Calc (Bld) [Moles/Vol] -8 mmol/L Low -2 to +2 [facility] Comment on above: Performed By: #### L 9000.0800 ####[facility] [address] [place], [address] Blood Gas Type ART Normal [facility] Comment on above: Performed By: #### L 0.0800 ####[facility] [address] [place], [address] CO2 [Moles/Vol] 17 mmol/L Normal [facility] Comment on above: Performed By: #### L 9000.0800 ####[facility] [address] [place], [address] FI02 4.0 Normal [facility] Comment on above: Performed By: #### L 0.0800 ####[facility] [address] [place], [address] HCO3 (Bld) [Moles/Vol] 16.6 mmol/L Low 22-26 [facility] Comment on above: Performed By: #### L 9000.0800 ####[facility] [address] [place], [address] Mode Not entered Normal [facility] Comment on above: Performed By: #### L 9000.0800 ####[facility] [address] [place], [address] O2 Delivery Dev Cannula Normal [facility] Comment on above: Performed By: #### L 0.0800 ####[facility] [address] [place], [address] pCO2 26.8 mmHg Low 35-45 [facility] Comment on above: Performed By: #### L 0.0800 ####[facility] [address] [place], [address] pH (Bld) 7.40 [pH] Normal 7.35-7.45 [facility] Comment on above: Performed By: #### L 9000.0800 ####[facility] [address] [place], [address] PO2 79 mmHG Normal 75-100 [facility] Comment on above: Performed By: #### L 9000.0800 ####[facility] [address] [place], [address] SITE R Radial Normal [facility] Comment on above: Performed By: #### L 9000.0800 ####[facility] [address] [place], [address] SO2 96 Normal 95-99 [facility] Comment on above: Performed By: #### L 9000.0800 ####[facility] [address] [place], [address] Blood base excess determinat ionOrdered By: Vern Rao on 05-01-2025 Base excess Calc (BldV) [Moles/Vol] -8 mmol/L Low -2-2 [facility] Blood bicarbonate measuremen tOrdered By: Vern Rao on 05-01-2025 HCO3 (Bld) [Moles/Vol] 16.6 mmol/L Low 22-26 [facility] Chest 1 View (Portable)on Chest 1 View (Portable) Normal [facility] Measurement, pHOrdered By: Michelle Rao on 05-01-2025 pH (Unsp spec) 7.40 [pH] 7.35-7.45 [facility] No Panel InformationOrdered By: Vern Rao on 05-01-2025 Blood Gas Sample Site R Radial [facility] Blood Gas Specimen Type ART [facility] Blood Gas Vent Mode Not entered [facility] Oxygen Delivery Device Cannula [facility] Total carbon dioxide measure mentOrdered By: Vern Rao on 05-01-2025 CO2 [Moles/Vol] 17 mmol/L [facility] Basic Metabolic Profile (BMP )on 04-30-2025 BUN/CRE 31.5 RATIO High 10-20 [facility] Comment on above: Performed By: #### L 500.2500 ####[facility] [address] [place], [address] Calcium [Mass/Vol] 8.4 mg/dL Normal 7.6-11.0 [facility] Comment on above: Performed By: #### L 500.2500 ####[facility] [address] [place], [address] Chloride [Moles/Vol] 126 mmol/L High 98-108 [facility] Comment on above: Performed By: #### L 500.2500 ####[facility] [address] [place], [address] CO2 [Moles/Vol] 16.4 mmol/L Low 21.0-32.0 [facility] Comment on above: Performed By: #### L 500.2500 ####[facility] [address] [place], [address] Creatinine [Mass/Vol] 1.93 mg/dL High 0.70-1.20 [facility] Comment on above: Performed By: #### L 500.2500 ####[facility] [address] [place], [address] ECRCL 26.17 ml/min Low 50-250 [facility] Comment on above: Performed By: #### L 500.2500 ####[facility] [address] [place], [address] GAP 10 Normal 5-15 [facility] Comment on above: Performed By: #### L 500.2500 ####[facility] [address] [place], [address] GFR/1.73 sq M.predicted among non-blacks MDRD (S/P/Bld) [Vol rate/Area] 34 mL/min/{1.73_m2} Low >60 [facility] Comment on above: Result Comment: mL/m in/1.73m2 CKD-EPI Creatinine Equation (2020) Performed By: #### L 500.2500 ####[facility] [address] [place], [address] Glucose [Mass/Vol] 121 mg/dL High 70-99 [facility] Comment on above: Performed By: #### L 500.2500 ####[facility] [address] [place], [address] Potassium [Moles/Vol] 4.5 mmol/L Normal 3.3-5.1 [facility] Comment on above: Performed By: #### L 500.2500 ####[facility] [address] [place], [address] Sodium [Moles/Vol] 153 mmol/L High 133-145 [facility] Comment on above: Performed By: #### L 500.2500 ####[facility] [address] [place], [address] Urea nitrogen [Mass/Vol] 61 mg/dL High 4-19 [facility] Comment on above: Performed By: #### L 500.2500 ####[facility] [address] [place], [address] Bedside Glucoseon 04-30-2025 FINGERSTICK GLU 114 mg/dL High 74-106 [facility] Comment on above: Result Comment: DIOR GEMENT OF PATIENT CARE PER NURSING PROTOCOL Performed By: #### L 501.080 ####[facility] [address] [place], [address] FINGERSTICK GLU 131 mg/dL High 74-106 [facility] Comment on above: Result Comment: DIOR GEMENT OF PATIENT CARE PER NURSING PROTOCOL Performed By: #### L 501.080 ####[facility] [address] [place], [address] FINGERSTICK GLU 127 mg/dL High 74-106 [facility] Comment on above: Result Comment: DIOR GEMENT OF PATIENT CARE PER NURSING PROTOCOL Performed By: #### L 501.080 ####[facility] [address] [place], [address] FINGERSTICK GLU 110 mg/dL High 74-106 [facility] Comment on above: Result Comment: DIOR GEMENT OF PATIENT CARE PER NURSING PROTOCOL Performed By: #### L 501.080 ####[facility] [address] [place], [address] 12 Lead EKGon 04-29-2025 12 Lead EKG Normal [facility] Basic Metabolic Profile (BMP )on 04-29-2025 BUN/CRE 31.5 RATIO High 10-20 [facility] Comment on above: Performed By: #### L 501.5200, L500.2500 ####[facility] [address] [place], [address] Calcium [Mass/Vol] 8.4 mg/dL Normal 7.6-11.0 [facility] Comment on above: Performed By: #### L 501.5200, L500.2500 ####[facility] [address] [place], [address] Chloride [Moles/Vol] 126 mmol/L High 98-108 [facility] Comment on above: Performed By: #### L 501.5200, L500.2500 ####[facility] [address] [place], [address] CO2 [Moles/Vol] 15.0 mmol/L Low 21.0-32.0 [facility] Comment on above: Performed By: #### L 501.5200, L500.2500 ####[facility] [address] [place], [address] Creatinine [Mass/Vol] 1.77 mg/dL High 0.70-1.20 [facility] Comment on above: Performed By: #### L 501.5200, L500.2500 ####[facility] [address] [place], [address] ECRCL 28.54 ml/min Low 50-250 [facility] Comment on above: Performed By: #### L 501.5200, L500.2500 ####[facility] [address] [place], [address] GAP 11 Normal 5-15 [facility] Comment on above: Performed By: #### L 501.5200, L500.2500 ####[facility] [address] [place], [address] GFR/1.73 sq M.predicted among non-blacks MDRD (S/P/Bld) [Vol rate/Area] 38 mL/min/{1.73_m2} Low >60 [facility] Comment on above: Result Comment: mL/m in/1.73m2 CKD-EPI Creatinine Equation (2020) Performed By: #### L 501.5200, L500.2500 ####[facility] [address] [place], [address] Glucose [Mass/Vol] 115 mg/dL High 70-99 [facility] Comment on above: Performed By: #### L 501.5200, L500.2500 ####[facility] [address] [place], [address] Potassium [Moles/Vol] 4.2 mmol/L Normal 3.3-5.1 [facility] Comment on above: Performed By: #### L 501.5200, L500.2500 ####[facility] [address] [place], [address] Sodium [Moles/Vol] 152 mmol/L High 133-145 [facility] Comment on above: Performed By: #### L 501.5200, L500.2500 ####[facility] [address] [place], [address] Urea nitrogen [Mass/Vol] 56 mg/dL High 4-19 [facility] Comment on above: Performed By: #### L 501.5200, L500.2500 ####[facility] [address] [place], [address] Bedside Glucoseon 04-29-2025 FINGERSTICK GLU 142 mg/dL High 74-106 [facility] Comment on above: Result Comment: DIOR GEMENT OF PATIENT CARE PER NURSING PROTOCOL Performed By: #### L 501.080 ####[facility] [address] [place], [address] FINGERSTICK GLU 120 mg/dL High 74-106 [facility] Comment on above: Result Comment: DIOR GEMENT OF PATIENT CARE PER NURSING PROTOCOL Performed By: #### L 501.080 ####[facility] [address] [place], [address] FINGERSTICK GLU 122 mg/dL High 74-106 [facility] Comment on above: Result Comment: DIOR GEMENT OF PATIENT CARE PER NURSING PROTOCOL Performed By: #### L 501.080 ####[facility] [address] [place], [address] FINGERSTICK GLU 111 mg/dL High 74-106 [facility] Comment on above: Result Comment: DIOR GEMENT OF PATIENT CARE PER NURSING PROTOCOL Performed By: #### L 501.080 ####[facility] [address] [place], [address] Electrocardiogram reportOrde red By: Kolby Cr on 04-29-2025 EKG study [facility] Cardiovascular Services [address] [place] [address] 12 Lead EKG 04/29/25 0755 MR#: [id number] Acct: [id number] Name: MICHAEL MULLINS Rep #:[id number] : 1940 85 From: Kolby hampton MD Attending Dr: Dr. Vern Rao DO Status: ADM IN Ordering Dr: Vern Rao DO Date: 04/29/25 Location: [facility] Sex: M C Admitted: 04/23/25 Test Reason : CP Blood Pressure : */* mmHG Vent. Rate : 88 BPM Atrial Rate : 88 BPM P-R Int : 148 ms QRS Dur : 120 ms QT Int : 404 ms P-R-T Axes : 41 -6 171 degrees QTcB Int : 488 ms Sinus rhythm with frequent Premature ventricular complexes Cannot rule out Anterior infarct , age undetermined Marked ST abnormality, possible lateral subendocardial injury Abnormal ECG When compared with ECG of 23-Apr-2025 21:55, Premature ventricular complexes are now Present Vent. rate has increased by 30 bpm Left bundle branch block is no longer Present Minimal criteria for Anterior infarct are now Present Confirmed by Kolby Cr ([id number]), publication editor ELGIN ROJO ([id number]) on 51:18:40 PM Referred By: LUAN Confirmed By: Kolby Cr 04/29/25 1318 Date _ Kolby Cr MD CC: Dr. Vern Rao DO; Dr. Baron Espinoza MD ~ Signed [facility] Work Phone: Magnesiumon 04-29-2025 Magnesium [Mass/Vol] 2.3 mg/dL High 1.5-2.2 [facility] Comment on above: Performed By: #### L 501.5200, L500.2500 ####[facility] [address] [place], [place], [address] Magnesium measurement (mass/ volume)Ordered By: Mira Mims on 04-29-2025 Magnesium (Unsp spec) [Mass/Vol] 2.3 mg/dL High 1.5-2.2 [facility] Basic Metabolic Profile (BMP )on 04-28-2025 BUN/CRE 30.0 RATIO High 10-20 [facility] Comment on above: Performed By: #### L 500.2500, L100.0100 ####[facility] [address] [place], [address] Calcium [Mass/Vol] 8.3 mg/dL Normal 7.6-11.0 [facility] Comment on above: Performed By: #### L 500.2500, L100.0100 ####[facility] [address] [place], [address] Chloride [Moles/Vol] 122 mmol/L High 98-108 [facility] Comment on above: Performed By: #### L 500.2500, L100.0100 ####[facility] [address] [place], [address] CO2 [Moles/Vol] 13.3 mmol/L Low 21.0-32.0 [facility] Comment on above: Performed By: #### L 500.2500, L100.0100 ####[facility] [address] [place], [address] Creatinine [Mass/Vol] 1.73 mg/dL High 0.70-1.20 [facility] Comment on above: Performed By: #### L 500.2500, L100.0100 ####[facility] [address] [place], [address] ECRCL 29.20 ml/min Low 50-250 [facility] Comment on above: Performed By: #### L 500.2500, L100.0100 ####[facility] [address] [place], [address] GAP 12 Normal 5-15 [facility] Comment on above: Performed By: #### L 500.2500, L100.0100 ####[facility] [address] [place], [address] GFR/1.73 sq M.predicted among non-blacks MDRD (S/P/Bld) [Vol rate/Area] 39 mL/min/{1.73_m2} Low >60 [facility] Comment on above: Result Comment: mL/m in/1.73m2 CKD-EPI Creatinine Equation (2020) Performed By: #### L 500.2500, L100.0100 ####[facility] [address] [place], [address] Glucose [Mass/Vol] 101 mg/dL High 70-99 [facility] Comment on above: Performed By: #### L 500.2500, L100.0100 ####[facility] [address] [place], [address] Potassium [Moles/Vol] 5.0 mmol/L Normal 3.3-5.1 [facility] Comment on above: Performed By: #### L 500.2500, L100.0100 ####[facility] [address] [place], [address] Sodium [Moles/Vol] 147 mmol/L High 133-145 [facility] Comment on above: Performed By: #### L 500.2500, L100.0100 ####[facility] [address] [place], [address] Urea nitrogen [Mass/Vol] 52 mg/dL High 4-19 [facility] Comment on above: Performed By: #### L 500.2500, L100.0100 ####[facility] [address] [place], [address] Bedside Glucoseon 04-28-2025 FINGERSTICK GLU 99 mg/dL Normal 74-106 [facility] Comment on above: Result Comment: DIOR BUCIO OF PATIENT CARE PER NURSING PROTOCOL Performed By: #### L 501.080 ####[facility] [address] [place], [address] FINGERSTICK GLU 119 mg/dL High 74-106 [facility] Comment on above: Result Comment: DIRO GEMENT OF PATIENT CARE PER NURSING PROTOCOL Performed By: #### L 501.080 ####[facility] [address] [place], [address] FINGERSTICK GLU 112 mg/dL High 74-106 [facility] Comment on above: Result Comment: DIOR GEMENT OF PATIENT CARE PER NURSING PROTOCOL Performed By: #### L 501.080 ####[facility] [address] [place], [address] FINGERSTICK GLU 94 mg/dL Normal 74-106 [facility] Comment on above: Result Comment: DIOR GEMENT OF PATIENT CARE PER NURSING PROTOCOL Performed By: #### L 501.080 ####[facility] [address] [place], [address] FINGERSTICK GLU 87 mg/dL Normal 74-106 [facility] Comment on above: Result Comment: DIOR GEMENT OF PATIENT CARE PER NURSING PROTOCOL Performed By: #### L 501.080 ####[facility] [address] [place], [address] CBC W/Diff, Automatedon - Absolute Lymph 1.10 X10 3/uL Normal 0.83-4.51 [facility] Comment on above: Performed By: #### L 500.2500, L100.0100 ####[facility] [address] [place], [address] Absolute Neut 9.5 X10 3/uL High 2.0-7.7 [facility] Comment on above: Performed By: #### L 500.2500, L100.0100 ####[facility] [address] [place], [address] Basophils/100 WBC (Bld) 0.1 % Normal 0-1 [facility] Comment on above: Performed By: #### L 500.2500, L100.0100 ####[facility] [address] [place], [address] Eosinophils/100 WBC (Bld) 0.3 % Normal 0-5 [facility] Comment on above: Performed By: #### L 500.2500, L100.0100 ####[facility] [address] [place], [address] Erythrocyte distribution width (RBC) [Ratio] 16.1 % High 11.6-14.6 [facility] Comment on above: Performed By: #### L 500.2500, L100.0100 ####[facility] [address] [place], [address] Hematocrit (Bld) [Volume fraction] 25.4 % Low 40-54 [facility] Comment on above: Performed By: #### L 500.2500, L100.0100 ####[facility] [address] [place], [address] Hemoglobin (Bld) [Mass/Vol] 8.6 g/dL Low 13.0-16.5 [facility] Comment on above: Performed By: #### L 500.2500, L100.0100 ####[facility] [address] [place], [address] IG% 0.400 Normal 0.0-0.9 [facility] Comment on above: Result Comment: IG% - Immature Granulocytes (promyelocytes, myelocytes andmetamyelocytes) > 1% indicates that a LEFT SHIFT is Present. Performed By: #### L 500.2500, L100.0100 ####[facility] [address] [place], [address] Lymphocytes/100 WBC (Bld) 9.6 % Low 19-41 [facility] Comment on above: Performed By: #### L 500.2500, L100.0100 ####[facility] [address] [place], [address] MCH (RBC) [Entitic mass] 31.9 pg Normal 27.0-32.0 [facility] Comment on above: Performed By: #### L 500.2500, L100.0100 ####[facility] [address] [place], [address] MCHC (RBC) [Mass/Vol] 33.9 g/dL Normal 32-36 [facility] Comment on above: Performed By: #### L 500.2500, L100.0100 ####[facility] [address] [place], [address] MCV (RBC) [Entitic vol] 94.1 fL High 80-94 [facility] Comment on above: Performed By: #### L 500.2500, L100.0100 ####[facility] [address] [place], [address] Monocytes/100 WBC (Bld) 7.1 % Normal 0-10 [facility] Comment on above: Performed By: #### L 500.2500, L100.0100 ####[facility] [address] [place], [address] Neutrophils/100 WBC (Bld) 82.5 % High 47-70 [facility] Comment on above: Performed By: #### L 500.2500, L100.0100 ####[facility] [address] [place], [address] Nucleated RBC (Bld) [#/Vol] 0.9 10*3/uL Normal 0-5 [facility] Comment on above: Performed By: #### L 500.2500, L100.0100 ####[facility] [address] [place], [address] Platelet mean volume (Bld) [Entitic vol] 11.0 fL Normal 6.2-12.0 [facility] Comment on above: Performed By: #### L 500.2500, L100.0100 ####[facility] [address] [place], [address] Platelets (Bld) [#/Vol] 133 10*3/uL Low 150-450 [facility] Comment on above: Performed By: #### L 500.2500, L100.0100 ####[facility] [address] [place], [address] RBC (Bld) [#/Vol] 2.70 10*6/uL Low 4.6-6.2 [facility] Comment on above: Performed By: #### L 500.2500, L100.0100 ####[facility] [address] [place], [address] RDW SD 55.3 fl High 35.1-43.9 [facility] Comment on above: Performed By: #### L 500.2500, L100.0100 ####[facility] [address] [place], [address] WBC (Bld) [#/Vol] 11.5 10*3/uL High 4.4-11.0 [facility] Comment on above: Performed By: #### L 500.2500, L100.0100 ####[facility] [address] [place], [address] Modified Barium Swallow Stud yon 04-28-2025 Modified Barium Swallow Study Normal [facility] Bedside Glucoseon 04-27-2025 FINGERSTICK GLU 99 mg/dL Normal 74-106 [facility] Comment on above: Result Comment: DIOR BUCIO OF PATIENT CARE PER NURSING PROTOCOL Performed By: #### L 501.080 ####[facility] [address] [place], [address] FINGERSTICK GLU 90 mg/dL Normal 74-106 [facility] Comment on above: Result Comment: DIOR BUCIO OF PATIENT CARE PER NURSING PROTOCOL Performed By: #### L 501.080 ####[facility] [address] [place], [address] FINGERSTICK GLU 78 mg/dL Normal 74-106 [facility] Comment on above: Result Comment: DIOR RUPINDER OF PATIENT CARE PER NURSING PROTOCOL Performed By: #### L 501.080 ####[facility] [address] [place], [address] Brain without Contraston Brain without Contrast Normal [facility] Magnetic resonance imaging r eportOrdered By: Alfonso Carter on 04-27-2025 Study report [facility] Imaging Services [address] [place] [address] Brain without Contrast MR#: [id number] Acct: [id number] Name: MICHAEL MULLINS Rep #: [id number] : 1940 M 85 From: Obinna Carter MD PCP: Dr. Baron Espinoza MD Status: ADM I N Study:Brain without Contrast Date of Exam: 04/27/25 Exam# [id number] Ordering Dr: Vern Lay DO PROCEDURE: BRAIN WITHOUT CONTRAST 04/27/2025 REASON FOR EXAM: SUBACUTE STROKE TECHNIQUE: Noncontrast brain MRI. Multiplanar and multisequence images were obtained. COMPARISON: Head CT of 04/26/2025 FINDINGS: Brain: A moderately large area of diffusion restriction is seen of the left parieto-occipital region, consistent with posterior cerebral artery infarction noted on the CT examination of 04/26/2025. No midline shift or significant mass effect is associated. At least moderate bilateral cerebral and pontine white matter changes are seen, consistent with chronic ischemic changes of small-vessel disease. 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 Small chronic appearing left cerebellar infarction. No extra-axial fluid collection is noted. Ventricles: Moderate generalized cerebral and cerebellar atrophy is seen, with symmetric ventricular enlargement consistent with the degree of atrophy. Major Intracranial Vessels: Unremarkable. Sinuses: Moderate bilateral ethmoid air cell mucosal thickening is seen. No air-fluid level is noted. The remaining paranasal sinuses appear clear. Mastoids: Partial opacification of left mastoid air cells is seen, of uncertain chronicity; recommend clinical and historical correlation. Right mastoid air cells appear clear. MRI/Brain without Contrast IMPRESSION: 1. Moderately large left parieto-occipital infarction, without associated midline shift or significant mass effect. 2. Moderate generalized cerebral and cerebellar atrophy. 3. At least moderate bilateral cerebral and pontine white matter changes are seen, consistent with chronic ischemic changes of small-vessel disease. 4. Partial opacification of left mastoid air cells, of uncertain chronicity; recommend clinical and historical correlation. 5. Additional findings as noted. Reading Location: [address] CC: Dr. Vern Rao DO; Dr. Baron Espinoza MD ~ Unit Supervisor: Signed [facility] Bedside Glucoseon 04-26-2025 FINGERSTICK GLU 77 mg/dL Normal 74-106 [facility] Comment on above: Result Comment: DIOR GEMENT OF PATIENT CARE PER NURSING PROTOCOL Performed By: #### L 501.080 ####[facility] [address] [place], [address] FINGERSTICK GLU 82 mg/dL Normal 74-106 [facility] Comment on above: Result Comment: DIOR GEMENT OF PATIENT CARE PER NURSING PROTOCOL Performed By: #### L 501.080 ####[facility] [address] [place], [address] FINGERSTICK GLU 83 mg/dL Normal 74-106 [facility] Comment on above: Result Comment: DIOR GEMENT OF PATIENT CARE PER NURSING PROTOCOL Performed By: #### L 501.080 ####[facility] [address] [place], [address] FINGERSTICK GLU 97 mg/dL Normal 74-106 [facility] Comment on above: Result Comment: DIOR GEMENT OF PATIENT CARE PER NURSING PROTOCOL Performed By: #### L 501.080 ####[facility] [address] [place], [address] FINGERSTICK GLU 79 mg/dL Normal 74-106 [facility] Comment on above: Result Comment: DIOR GEMENT OF PATIENT CARE PER NURSING PROTOCOL Performed By: #### L 501.080 ####[facility] [address] [place], [address] FINGERSTICK GLU 130 mg/dL High 74-106 [facility] Comment on above: Result Comment: DIOR GEMENT OF PATIENT CARE PER NURSING PROTOCOL Performed By: #### L 501.080 ####[facility] [address] [place], [address] CBC W/Diff, Automatedon 06-0 9-2024 Absolute Lymph 1.73 X10 3/uL Normal 0.83-4.51 [facility] Comment on above: Performed By: #### L 100.0100 ####[facility] [address] [place], [address] Absolute Neut 7.3 X10 3/uL Normal 2.0-7.7 [facility] Comment on above: Performed By: #### L 100.0100 ####[facility] [address] [place], [address] Basophils/100 WBC (Bld) 0.1 % Normal 0-1 [facility] Comment on above: Performed By: #### L 100.0100 ####[facility] [address] [place], [address] Eosinophils/100 WBC (Bld) 0.6 % Normal 0-5 [facility] Comment on above: Performed By: #### L 100.0100 ####[facility] [address] [place], [address] Erythrocyte distribution width (RBC) [Ratio] 16.0 % High 11.6-14.6 [facility] Comment on above: Performed By: #### L 100.0100 ####[facility] [address] [place], [address] Hematocrit (Bld) [Volume fraction] 21.8 % Low 40-54 [facility] Comment on above: Performed By: #### L 100.0100 ####[facility] [address] [place], [address] Hemoglobin (Bld) [Mass/Vol] 7.1 g/dL Low 13.0-16.5 [facility] Comment on above: Performed By: #### L 100.0100 ####[facility] [address] [place], [address] IG% 0.500 Normal 0.0-0.9 [facility] Comment on above: Result Comment: IG% - Immature Granulocytes (promyelocytes, myelocytes andmetamyelocytes) > 1% indicates that a LEFT SHIFT is Present. Performed By: #### L 100.0100 ####[facility] [address] [place], [address] Lymphocytes/100 WBC (Bld) 17.2 % Low 19-41 [facility] Comment on above: Performed By: #### L 100.0100 ####[facility] [address] [place], [address] MCH (RBC) [Entitic mass] 32.4 pg High 27.0-32.0 [facility] Comment on above: Performed By: #### L 100.0100 ####[facility] [address] [place], [address] MCHC (RBC) [Mass/Vol] 32.6 g/dL Normal 32-36 [facility] Comment on above: Performed By: #### L 100.0100 ####[facility] [address] [place], [address] MCV (RBC) [Entitic vol] 99.5 fL High 80-94 [facility] Comment on above: Performed By: #### L 100.0100 ####[facility] [address] [place], [address] Monocytes/100 WBC (Bld) 9.2 % Normal 0-10 [facility] Comment on above: Performed By: #### L 100.0100 ####[facility] [address] [place], [address] Neutrophils/100 WBC (Bld) 72.4 % High 47-70 [facility] Comment on above: Performed By: #### L 100.0100 ####[facility] [address] [place], [address] Nucleated RBC (Bld) [#/Vol] 0.4 10*3/uL Normal 0-5 [facility] Comment on above: Performed By: #### L 100.0100 ####[facility] [address] [place], [address] Platelet mean volume (Bld) [Entitic vol] 11.4 fL Normal 6.2-12.0 [facility] Comment on above: Performed By: #### L 100.0100 ####[facility] [address] [place], [address] Platelets (Bld) [#/Vol] 104 10*3/uL Low 150-450 [facility] Comment on above: Performed By: #### L 100.0100 ####[facility] [address] [place], [address] RBC (Bld) [#/Vol] 2.19 10*6/uL Low 4.6-6.2 [facility] Comment on above: Performed By: #### L 100.0100 ####[facility] [address] [place], [address] RDW SD 58.6 fl High 35.1-43.9 [facility] Comment on above: Performed By: #### L 100.0100 ####[facility] [address] [place], [address] WBC (Bld) [#/Vol] 10.1 10*3/uL Normal 4.4-11.0 [facility] Comment on above: Performed By: #### L 100.0100 ####[facility] [address] [place], [address] Electrocardiogram reportOrde red By: Marcelle Klein on 04-26-2025 EKG study [facility] [address] [place] [address] 12 Lead EKG 04/23/25 2155 MR#: [id number] Acct: [id number] Name: MICHAEL MULLINS Rep #:[id number] : 1940 85 From: Marcelle guerra MD Attending Dr: Dr. Vern Rao DO Status: ADM IN Ordering Dr: Margy Leroy te: 04/23/25 Location: [facility] Sex: M C Admitted: 04/23/25 Test Reason : PRE-OP Blood Pressure : */* mmHG Vent. Rate : 58 BPM Atrial Rate : 58 BPM P-R Int : 168 ms QRS Dur : 132 ms QT Int : 474 ms P-R-T Axes : 31 -13 155 degrees QTcB Int : 465 ms Sinus bradycardia Left bundle branch block Abnormal ECG Confirmed by ERNIE MALCOLM, DAR ([id number]), publication editor ELGIN ROJO ([id number]) on04/26/2025 6:55:06 AM Referred By: KHLOE Confirmed By: DAR KLEIN MD 04/26/25 0655 Date _ Marcelle Klein MD CC: Dr. Vern Rao DO; Dr. Baron Espinoza MD; ALANA Bonilla ~ Signed [facility] Work Phone: [id number] 04-26-2025 MR/POSTOPAN2 Normal [facility] STROKE Brain/Head without Co nton 04-26-2025 STROKE Brain/Head without Cont Normal [facility] STROKE CTA Head AND Neck W/C onon 04-26-2025 STROKE CTA Head AND Neck W/Con Normal [facility] Basic Metabolic Profile (BMP )on 04-25-2025 BUN/CRE 20.3 RATIO High 10-20 [facility] Comment on above: Performed By: #### L 100.0100, L500.2500 ####[facility] [address] [place], [address] Calcium [Mass/Vol] 7.1 mg/dL Low 7.6-11.0 [facility] Comment on above: Performed By: #### L 100.0100, L500.2500 ####[facility] [address] [place], [address] Chloride [Moles/Vol] 116 mmol/L High 98-108 [facility] Comment on above: Performed By: #### L 100.0100, L500.2500 ####[facility] [address] [place], [address] CO2 [Moles/Vol] 16.0 mmol/L Low 21.0-32.0 [facility] Comment on above: Performed By: #### L 100.0100, L500.2500 ####[facility] [address] [place], [address] Creatinine [Mass/Vol] 2.40 mg/dL High 0.70-1.20 [facility] Comment on above: Performed By: #### L 100.0100, L500.2500 ####[facility] [address] [place], [address] ECRCL 21.05 ml/min Low 50-250 [facility] Comment on above: Performed By: #### L 100.0100, L500.2500 ####[facility] [address] [place], [address] GAP 9 Normal 5-15 [facility] Comment on above: Performed By: #### L 100.0100, L500.2500 ####[facility] [address] [place], [address] GFR/1.73 sq M.predicted among non-blacks MDRD (S/P/Bld) [Vol rate/Area] 26 mL/min/{1.73_m2} Low >60 [facility] Comment on above: Result Comment: mL/m in/1.73m2 CKD-EPI Creatinine Equation (2020) Performed By: #### L 100.0100, L500.2500 ####[facility] [address] [place], [address] Glucose [Mass/Vol] 106 mg/dL High 70-99 [facility] Comment on above: Performed By: #### L 100.0100, L500.2500 ####[facility] [address] [place], [address] Potassium [Moles/Vol] 5.6 mmol/L High 3.3-5.1 [facility] Comment on above: Performed By: #### L 100.0100, L500.2500 ####[facility] [address] [place], [address] Sodium [Moles/Vol] 140 mmol/L Normal 133-145 [facility] Comment on above: Performed By: #### L 100.0100, L500.2500 ####[facility] [address] [place], [address] Urea nitrogen [Mass/Vol] 49 mg/dL High 4-19 [facility] Comment on above: Performed By: #### L 100.0100, L500.2500 ####[facility] [address] [place], [address] Bedside Glucoseon 04-25-2025 FINGERSTICK GLU 102 mg/dL Normal 74-106 [facility] Comment on above: Result Comment: DIOR GEMENT OF PATIENT CARE PER NURSING PROTOCOL Performed By: #### L 501.080 ####[facility] [address] [place], [address] FINGERSTICK GLU 112 mg/dL High 74-106 [facility] Comment on above: Result Comment: DIOR GEMENT OF PATIENT CARE PER NURSING PROTOCOL Performed By: #### L 501.080 ####[facility] [address] [place], [address] FINGERSTICK GLU 110 mg/dL High 74-106 [facility] Comment on above: Result Comment: DIOR GEMENT OF PATIENT CARE PER NURSING PROTOCOL Performed By: #### L 501.080 ####[facility] [address] [place], [address] CBC W/Diff, Automatedon 06-0 -2024 Absolute Lymph 1.54 X10 3/uL Normal 0.83-4.51 [facility] Comment on above: Performed By: #### L 100.0100 ####[facility] [address] [place], [address] Absolute Neut 9.1 X10 3/uL High 2.0-7.7 [facility] Comment on above: Performed By: #### L 100.0100 ####[facility] [address] [place], [address] Basophils/100 WBC (Bld) 0.2 % Normal 0-1 [facility] Comment on above: Performed By: #### L 100.0100 ####[facility] [address] [place], [address] Eosinophils/100 WBC (Bld) 0.5 % Normal 0-5 [facility] Comment on above: Performed By: #### L 100.0100 ####[facility] [address] [place], [address] Erythrocyte distribution width (RBC) [Ratio] 15.9 % High 11.6-14.6 [facility] Comment on above: Performed By: #### L 100.0100 ####[facility] [address] [place], [address] Hematocrit (Bld) [Volume fraction] 25.2 % Low 40-54 [facility] Comment on above: Performed By: #### L 100.0100 ####[facility] [address] [place], [address] Hemoglobin (Bld) [Mass/Vol] 8.0 g/dL Low 13.0-16.5 [facility] Comment on above: Performed By: #### L 100.0100 ####[facility] [address] [place], [address] IG% 0.300 Normal 0.0-0.9 [facility] Comment on above: Result Comment: IG% - Immature Granulocytes (promyelocytes, myelocytes andmetamyelocytes) > 1% indicates that a LEFT SHIFT is Present. Performed By: #### L 100.0100 ####[facility] [address] [place], [address] Lymphocytes/100 WBC (Bld) 13.3 % Low 19-41 [facility] Comment on above: Performed By: #### L 100.0100 ####[facility] [address] [place], [address] MCH (RBC) [Entitic mass] 32.4 pg High 27.0-32.0 [facility] Comment on above: Performed By: #### L 100.0100 ####[facility] [address] [place], [address] MCHC (RBC) [Mass/Vol] 31.7 g/dL Low 32-36 [facility] Comment on above: Performed By: #### L 100.0100 ####[facility] [address] [place], [address] MCV (RBC) [Entitic vol] 102.0 fL High 80-94 [facility] Comment on above: Performed By: #### L 100.0100 ####[facility] [address] [place], [address] Monocytes/100 WBC (Bld) 7.3 % Normal 0-10 [facility] Comment on above: Performed By: #### L 100.0100 ####[facility] [address] [place], [address] Neutrophils/100 WBC (Bld) 78.4 % High 47-70 [facility] Comment on above: Performed By: #### L 100.0100 ####[facility] [address] [place], [address] Nucleated RBC (Bld) [#/Vol] 0.3 10*3/uL Normal 0-5 [facility] Comment on above: Performed By: #### L 100.0100 ####[facility] [address] [place], [address] Platelet mean volume (Bld) [Entitic vol] 11.9 fL Normal 6.2-12.0 [facility] Comment on above: Performed By: #### L 100.0100 ####[facility] [address] [place], [address] Platelets (Bld) [#/Vol] 117 10*3/uL Low 150-450 [facility] Comment on above: Performed By: #### L 100.0100 ####[facility] [address] [place], [address] RBC (Bld) [#/Vol] 2.47 10*6/uL Low 4.6-6.2 [facility] Comment on above: Performed By: #### L 100.0100 ####[facility] [address] [place], [address] RDW SD 58.4 fl High 35.1-43.9 [facility] Comment on above: Performed By: #### L 100.0100 ####[facility] [address] [place], [address] WBC (Bld) [#/Vol] 11.6 10*3/uL High 4.4-11.0 [facility] Comment on above: Performed By: #### L 100.0100 ####[facility] [address] [place], [address] Absolute Lymph 2.05 X10 3/uL Normal 0.83-4.51 [facility] Comment on above: Performed By: #### L 100.0100, L500.2500 ####[facility] [address] [place], [address] Absolute Neut 6.3 X10 3/uL Normal 2.0-7.7 [facility] Comment on above: Performed By: #### L 100.0100, L500.2500 ####[facility] [address] [place], [address] Basophils/100 WBC (Bld) 0.1 % Normal 0-1 [facility] Comment on above: Performed By: #### L 100.0100, L500.2500 ####[facility] [address] [place], [address] Eosinophils/100 WBC (Bld) 0.2 % Normal 0-5 [facility] Comment on above: Performed By: #### L 100.0100, L500.2500 ####[facility] [address] [place], [address] Erythrocyte distribution width (RBC) [Ratio] 15.9 % High 11.6-14.6 [facility] Comment on above: Performed By: #### L 100.0100, L500.2500 ####[facility] [address] [place], [address] Hematocrit (Bld) [Volume fraction] 24.5 % Low 40-54 [facility] Comment on above: Performed By: #### L 100.0100, L500.2500 ####[facility] [address] [place], [address] Hemoglobin (Bld) [Mass/Vol] 7.9 g/dL Low 13.0-16.5 [facility] Comment on above: Performed By: #### L 100.0100, L500.2500 ####[facility] [address] [place], [address] IG% 0.300 Normal 0.0-0.9 [facility] Comment on above: Result Comment: IG% - Immature Granulocytes (promyelocytes, myelocytes andmetamyelocytes) > 1% indicates that a LEFT SHIFT is Present. Performed By: #### L 100.0100, L500.2500 ####[facility] [address] [place], [address] Lymphocytes/100 WBC (Bld) 22.0 % Normal 19-41 [facility] Comment on above: Performed By: #### L 100.0100, L500.2500 ####[facility] [address] [place], [address] MCH (RBC) [Entitic mass] 32.5 pg High 27.0-32.0 [facility] Comment on above: Performed By: #### L 100.0100, L500.2500 ####[facility] [address] [place], [address] MCHC (RBC) [Mass/Vol] 32.2 g/dL Normal 32-36 [facility] Comment on above: Performed By: #### L 100.0100, L500.2500 ####[facility] [address] [place], [address] MCV (RBC) [Entitic vol] 100.8 fL High 80-94 [facility] Comment on above: Performed By: #### L 100.0100, L500.2500 ####[facility] [address] [place], [address] Monocytes/100 WBC (Bld) 9.6 % Normal 0-10 [facility] Comment on above: Performed By: #### L 100.0100, L500.2500 ####[facility] [address] [place], [address] Neutrophils/100 WBC (Bld) 67.8 % Normal 47-70 [facility] Comment on above: Performed By: #### L 100.0100, L500.2500 ####[facility] [address] [place], [address] Nucleated RBC (Bld) [#/Vol] 0.2 10*3/uL Normal 0-5 [facility] Comment on above: Performed By: #### L 100.0100, L500.2500 ####[facility] [address] [place], [address] Platelet mean volume (Bld) [Entitic vol] 12.1 fL High 6.2-12.0 [facility] Comment on above: Performed By: #### L 100.0100, L500.2500 ####[facility] [address] [place], [address] Platelets (Bld) [#/Vol] 104 10*3/uL Low 150-450 [facility] Comment on above: Performed By: #### L 100.0100, L500.2500 ####[facility] [address] [place], [address] RBC (Bld) [#/Vol] 2.43 10*6/uL Low 4.6-6.2 [facility] Comment on above: Performed By: #### L 100.0100, L500.2500 ####[facility] [address] [place], [address] RDW SD 59.1 fl High 35.1-43.9 [facility] Comment on above: Performed By: #### L 100.0100, L500.2500 ####[facility] [address] [place], [address] WBC (Bld) [#/Vol] 9.3 10*3/uL Normal 4.4-11.0 [facility] Comment on above: Performed By: #### L 100.0100, L500.2500 ####[facility] [address] [place], [address] Bedside Glucoseon 04-24-2025 FINGERSTICK GLU 110 mg/dL High 74-106 [facility] Comment on above: Result Comment: DIOR GEMENT OF PATIENT CARE PER NURSING PROTOCOL Performed By: #### L 501.080 ####[facility] [address] [place], [address] FINGERSTICK GLU 135 mg/dL High 74-106 [facility] Comment on above: Result Comment: DIOR GEMENT OF PATIENT CARE PER NURSING PROTOCOL Performed By: #### L 501.080 ####[facility] [address] [place], [address] FINGERSTICK GLU 131 mg/dL High 74-106 [facility] Comment on above: Result Comment: DIOR GEMENT OF PATIENT CARE PER NURSING PROTOCOL Performed By: #### L 501.080 ####[facility] [address] [place], [address] FINGERSTICK GLU 108 mg/dL High 74-106 [facility] Comment on above: Result Comment: DIOR GEMENT OF PATIENT CARE PER NURSING PROTOCOL Performed By: #### L 501.080 ####[facility] [address] [place], [address] CBC W/Diff, Automatedon 06-0 7-2024 Absolute Lymph 1.76 X10 3/uL Normal 0.83-4.51 [facility] Comment on above: Performed By: #### L 100.0100, L500.4050 ####[facility] [address] [place], [address] Absolute Neut 11.0 X10 3/uL High 2.0-7.7 [facility] Comment on above: Performed By: #### L 100.0100, L500.4050 ####[facility] [address] [place], [address] Basophils/100 WBC (Bld) 0.1 % Normal 0-1 [facility] Comment on above: Performed By: #### L 100.0100, L500.4050 ####[facility] [address] [place], [address] Eosinophils/100 WBC (Bld) 0.0 % Normal 0-5 [facility] Comment on above: Performed By: #### L 100.0100, L500.4050 ####[facility] [address] [place], [address] Erythrocyte distribution width (RBC) [Ratio] 15.5 % High 11.6-14.6 [facility] Comment on above: Performed By: #### L 100.0100, L500.4050 ####[facility] [address] [place], [address] Hematocrit (Bld) [Volume fraction] 32.8 % Low 40-54 [facility] Comment on above: Performed By: #### L 100.0100, L500.4050 ####[facility] [address] [place], [address] Hemoglobin (Bld) [Mass/Vol] 10.7 g/dL Low 13.0-16.5 [facility] Comment on above: Performed By: #### L 100.0100, L500.4050 ####[facility] [address] [place], [address] IG% 0.400 Normal 0.0-0.9 [facility] Comment on above: Result Comment: IG% - Immature Granulocytes (promyelocytes, myelocytes andmetamyelocytes) > 1% indicates that a LEFT SHIFT is Present. Performed By: #### L 100.0100, L500.4050 ####[facility] [address] [place], [address] Lymphocytes/100 WBC (Bld) 12.7 % Low 19-41 [facility] Comment on above: Performed By: #### L 100.0100, L500.4050 ####[facility] [address] [place], [address] MCH (RBC) [Entitic mass] 32.5 pg High 27.0-32.0 [facility] Comment on above: Performed By: #### L 100.0100, L500.4050 ####[facility] [address] [place], [address] MCHC (RBC) [Mass/Vol] 32.6 g/dL Normal 32-36 [facility] Comment on above: Performed By: #### L 100.0100, L500.4050 ####[facility] [address] [place], [address] MCV (RBC) [Entitic vol] 99.7 fL High 80-94 [facility] Comment on above: Performed By: #### L 100.0100, L500.4050 ####[facility] [address] [place], [address] Monocytes/100 WBC (Bld) 7.3 % Normal 0-10 [facility] Comment on above: Performed By: #### L 100.0100, L500.4050 ####[facility] [address] [place], [address] Neutrophils/100 WBC (Bld) 79.5 % High 47-70 [facility] Comment on above: Performed By: #### L 100.0100, L500.4050 ####[facility] [address] [place], [address] Nucleated RBC (Bld) [#/Vol] 0.1 10*3/uL Normal 0-5 [facility] Comment on above: Performed By: #### L 100.0100, L500.4050 ####[facility] [address] [place], [address] Platelet mean volume (Bld) [Entitic vol] 10.8 fL Normal 6.2-12.0 [facility] Comment on above: Performed By: #### L 100.0100, L500.4050 ####[facility] [address] [place], [address] Platelets (Bld) [#/Vol] 146 10*3/uL Low 150-450 [facility] Comment on above: Performed By: #### L 100.0100, L500.4050 ####[facility] [address] [place], [address] RBC (Bld) [#/Vol] 3.29 10*6/uL Low 4.6-6.2 [facility] Comment on above: Performed By: #### L 100.0100, L500.4050 ####[facility] [address] [place], [address] RDW SD 57.1 fl High 35.1-43.9 [facility] Comment on above: Performed By: #### L 100.0100, L500.4050 ####[facility] [address] [place], [address] WBC (Bld) [#/Vol] 13.9 10*3/uL High 4.4-11.0 [facility] Comment on above: Performed By: #### L 100.0100, L500.4050 ####[facility] [address] [place], [address] Comprehensive Metabolic Prof ilon 04-24-2025 Albumin [Mass/Vol] 3.3 g/dL Low 3.4-4.8 [facility] Comment on above: Performed By: #### L 100.0100, L500.4050 ####[facility] [address] [place], [address] Albumin/Globulin [Mass ratio] 1.7 {ratio} Normal 0.9-2.4 [facility] Comment on above: Performed By: #### L 100.0100, L500.4050 ####[facility] [address] [place], [address] ALK PHOS 98 U/L Normal 40-129 [facility] Comment on above: Performed By: #### L 100.0100, L500.4050 ####[facility] [address] [place], [address] ALT [Catalytic activity/Vol] 20 U/L Normal <=46 [facility] Comment on above: Performed By: #### L 100.0100, L500.4050 ####[facility] [address] [place], [address] AST [Catalytic activity/Vol] 32 U/L Normal <=37 [facility] Comment on above: Performed By: #### L 100.0100, L500.4050 ####[facility] [address] [place], [address] Bilirubin [Mass/Vol] 0.53 mg/dL Normal 0.00-1.30 [facility] Comment on above: Performed By: #### L 100.0100, L500.4050 ####[facility] [address] [place], [address] BUN/CRE 19.5 RATIO Normal 10-20 [facility] Comment on above: Performed By: #### L 100.0100, L500.4050 ####[facility] [address] [place], [address] Calcium [Mass/Vol] 8.0 mg/dL Normal 7.6-11.0 [facility] Comment on above: Performed By: #### L 100.0100, L500.4050 ####[facility] [address] [place], [address] Chloride [Moles/Vol] 111 mmol/L High 98-108 [facility] Comment on above: Performed By: #### L 100.0100, L500.4050 ####[facility] [address] [place], [address] CO2 [Moles/Vol] 19.8 mmol/L Low 21.0-32.0 [facility] Comment on above: Performed By: #### L 100.0100, L500.4050 ####[facility] [address] [place], [address] Creatinine [Mass/Vol] 2.15 mg/dL High 0.70-1.20 [facility] Comment on above: Performed By: #### L 100.0100, L500.4050 ####[facility] [address] [place], [address] ECRCL 23.49 ml/min Low 50-250 [facility] Comment on above: Performed By: #### L 100.0100, L500.4050 ####[facility] [address] [place], [address] GAP 9 Normal 5-15 [facility] Comment on above: Performed By: #### L 100.0100, L500.4050 ####[facility] [address] [place], [address] GFR/1.73 sq M.predicted among non-blacks MDRD (S/P/Bld) [Vol rate/Area] 30 mL/min/{1.73_m2} Low >60 [facility] Comment on above: Result Comment: mL/m in/1.73m2 CKD-EPI Creatinine Equation (2020) Performed By: #### L 100.0100, L500.4050 ####[facility] [address] [place], [address] Globulin (S) [Mass/Vol] 2.0 g/dL Low 2.2-4.2 [facility] Comment on above: Performed By: #### L 100.0100, L500.4050 ####[facility] [address] [place], [address] Glucose [Mass/Vol] 119 mg/dL High 70-99 [facility] Comment on above: Performed By: #### L 100.0100, L500.4050 ####[facility] [address] [place], [address] Potassium [Moles/Vol] 5.5 mmol/L High 3.3-5.1 [facility] Comment on above: Performed By: #### L 100.0100, L500.4050 ####[facility] [address] [place], [address] Sodium [Moles/Vol] 140 mmol/L Normal 133-145 [facility] Comment on above: Performed By: #### L 100.0100, L500.4050 ####[facility] [address] [place], [address] T PROT 5.3 g/dL Low 5.9-8.4 [facility] Comment on above: Performed By: #### L 100.0100, L500.4050 ####[facility] [address] [place], [address] Urea nitrogen [Mass/Vol] 42 mg/dL High 4-19 [facility] Comment on above: Performed By: #### L 100.0100, L500.4050 ####[facility] [address] [place], [address] Consultation - Orthopedicson 04-24-2025 Consultation - Orthopedics Normal [facility] Echo Complete W/ Contraston 04-24-2025 Echo Complete W/ Contrast Normal [facility] Echocardiogram study reportO rdered By: Marcelle Klein on 04-24-2025 Study report [facility] [address] [place] [address] Echo Complete W/ Contrast 04/24/25 0849 MR#: [id number] Acct: [id number] Name: MICHAEL MULLINS Rep #:[id number] : [id number] 85 From: Marcelle shafer MD Attending Dr: Dr. Vern Rao, DO Status: ADM IN Ordering Dr: Paty Morgan MD Date: 04/24/25 Location: [facility] Sex: M C Admitted: 04/23/25 Reason For Study Reason For Study: CHF Procedure This was a 2D Doppler, Color Flow transthoracic echocardiogram. The study was technically difficult. Contrast injection was performed. Exam performed portable in patient room. Left Ventricle Normal LV size. The estimated ejection fraction is 55 %. No evidence for diastolic dysfunction. No regional wall motion abnormalities noted. Right Ventricle Normal RV size. Normal systolic function. Atria The left and right atria are normal. No doppler evidence for ASD. Mitral Valve There is no mitral valve stenosis. No mitral valve insufficiency. Tricuspid Valve There is no tricuspid stenosis. No tricuspid valve insufficiency. Aortic Valve Trisinus/trileaflet aortic valve. There is no aortic stenosis. No aortic valve insufficiency. Pulmonic Valve There is no pulmonic valvular stenosis. No pulmonic valve insufficiency. Great Vessels Normal sized aortic root. Pericardium/Pleural No pericardial effusion. Medication Diluted definity 2ml given slow IV push to enhance endocardial definition. MMode/2D Measurements & Calculations LVIDd: 3.7 cm IVSd: 0.89 cm LAV(MOD-sp4): 39.5 ml LVIDs: 2.4 cm LVPWd: 1.1 cm FS: 34.5 % LVAd ap4: 34.4 cm2 SV(MOD-sp4): 69.0 ml SV(sp4-el): 61.8 ml LVLd ap4: 8.9 cm SI(MOD-sp4): 37.7 ml/m2 EDV(MOD-sp4): 124.1 ml EDV(sp4-el): 112.6 ml LVAs ap4: 21.7 cm2 LVLs ap4: 7.8 cm ESV(MOD-sp4): 55.1 ml ESV(sp4-el): 50.8 ml EF(MOD-sp4): 55.6 % EF(sp4-el): 54.9 % LA A4 area: 15.2 cm2 LA dimension(2D): 3.0 cm Time Measurements MV dec time: 0.23 sec Doppler Measurements & Calculations MV E max william: 53.5 cm/sec Lat Peak E' William: 6.3 cm/sec Med Peak E' William: 4.3 cm/sec MV A max william: 78.6 cm/sec E/E' lat: 8.4 E/E' med: 12.4 MV E/A: 0.68 MV V2 max: 86.1 cm/sec Ao V2 max: 94.7 cm/sec MV max P.0 mmHg MV dec slope: 233.2 cm/sec2 Ao max P.6 mmHg MV V2 mean: 42.0 cm/sec Ao V2 mean: 58.2 cm/sec MV mean P.86 mmHg Ao mean P.6 mmHg MV V2 VTI: 27.7 cm Ao V2 VTI: 22.4 cm AV (velocity ratio): 1.1 LV V1 max: 107.5 cm/sec LV V1 max P.6 mmHg LV V1 mean P.4 mmHg LV V1 mean: 72.0 cm/sec LV V1 VTI: 23.5 cm ECHO/Echo Complete W/ Contrast Interpretation Summary The estimated ejection fraction is 55 %. No evidence for diastolic dysfunction. Ordering Physician: Paty Morgan Referring Physician: BARON ESPINOZA Performed By: Anne Marie Cabello RCS 04/24/25 1359 Date _ Marcelle Klein MD CC: Dr. Paty Morgan MD; Dr. Vern Rao DO; Dr. Baron Espinoza MD ~ Date Dictated: 04/24/25 0849 Date Transcribed: 04/24/25 135 Unit Supervisor: Signed [facility] Work Phone: Hemoglobin A1c percentageOrd ered By: Paty Morgan on 04-24-2025 HbA1c (Bld) [Mass fraction] 5.8 % High <=5.6 [facility] Comment on above: Normal < 5.7 % Predi abetic 5.7 - 6.4 % Diabetic >or= 6.5 % Please note range changes. Result Comment: Norm al < 5.7 % Prediabetic 5.7 - 6.4 % Diabetic >or= 6.5 % Please note range changes. Performed By: #### L 501.0712 ####[facility] [address] [place], [address] Hip Min 2 Views (Portable)on 04-24-2025 Hip Min 2 Views (Portable) Normal [facility] L503.7505on 04-24-2025 Natriuretic peptide B (Bld) [Mass/Vol] 1237 pg/mL Normal <=1800 [facility] Comment on above: Result Comment: Hear t Failure Unlikely: < 300 pg/mLHeart Failure Likely< 50 Years: > 450 pg/mL50-75 Years: > 900 pg/mL>75 Years: > 1800 pg/mL Performed By: #### L 503.7507 ####[facility] [address] [place], [address] MR/POSTOP.ANEon 04-24-2025 MR/POSTOP.ANE Normal [facility] Operative Reporton Operative Report Normal [facility] 12 Lead EKGon 04-23-2025 12 Lead EKG Normal [facility] Absolute lymphocyte countOrd ered By: Margy Leroy on 04-23-2025 Lymphocytes Auto (Unsp spec) [#/Vol] 2.91 10*3/uL 0.83-4.51 [facility] Absolute neutrophil countOrd ered By: Margy Leroy on 04-23-2025 Neutrophils (Bld) [#/Vol] 4.1 10*3/uL 2.0-7.7 [facility] Anion gap in Serum or Plasma Ordered By: Margy Leroy on 04-23-2025 Anion gap [Moles/Vol] 10 mmol/L 5-15 [facility] Automated lymphocyte count a s percentage of total leukocytesOrdered By: Margy Leroy on 04-23-2025 Lymphocytes/100 WBC Auto (Unsp spec) 37.3 % 19-41 [facility] BRCon 04-23-2025 RC Normal [facility] Comment on above: Result Comment: [id number] OP RC TRANSFUSED 04/26/25 1447 Performed By: #### B RC ####[facility] [address] [place], [address] BUN/creatinine ratioOrdered By: Margy Leroy on 04-23-2025 Urea nitrogen/Creatinine [Mass ratio] 21.2 mg/mg High 10-20 [facility] Basic Metabolic Profile (BMP )on 04-23-2025 BUN/CRE 21.2 RATIO High 10- [facility] Comment on above: Performed By: #### L 500.2500, L100.0100 ####[facility] [address] [place], [address] Calcium [Mass/Vol] 8.9 mg/dL Normal 7.6-11.0 [facility] Comment on above: Performed By: #### L 500.2500, L100.0100 ####[facility] [address] [place], [address] Chloride [Moles/Vol] 107 mmol/L Normal 98-108 [facility] Comment on above: Performed By: #### L 500.2500, L100.0100 ####[facility] [address] [place], [address] CO2 [Moles/Vol] 23.5 mmol/L Normal 21.0-32.0 [facility] Comment on above: Performed By: #### L 500.2500, L100.0100 ####[facility] [address] [place], [address] Creatinine [Mass/Vol] 1.81 mg/dL High 0.70-1.20 [facility] Comment on above: Performed By: #### L 500.2500, L100.0100 ####[facility] [address] [place], [address] ECRCL 28.91 ml/min Low 50-250 [facility] Comment on above: Performed By: #### L 500.2500, L100.0100 ####[facility] [address] [place], [address] GAP 10 Normal 5-15 [facility] Comment on above: Performed By: #### L 500.2500, L100.0100 ####[facility] [address] [place], [address] GFR/1.73 sq M.predicted among non-blacks MDRD (S/P/Bld) [Vol rate/Area] 37 mL/min/{1.73_m2} Low >60 [facility] Comment on above: Result Comment: mL/m in/1.73m2 CKD-EPI Creatinine Equation (2020) Performed By: #### L 500.2500, L100.0100 ####[facility] [address] [place], [address] Glucose [Mass/Vol] 86 mg/dL Normal 70-99 [facility] Comment on above: Performed By: #### L 500.2500, L100.0100 ####[facility] [address] [place], [address] Potassium [Moles/Vol] 5.3 mmol/L High 3.3-5.1 [facility] Comment on above: Performed By: #### L 500.2500, L100.0100 ####[facility] [address] [place], [address] Sodium [Moles/Vol] 140 mmol/L Normal 133-145 [facility] Comment on above: Performed By: #### L 500.2500, L100.0100 ####[facility] [address] [place], [address] Urea nitrogen [Mass/Vol] 38 mg/dL High 4-19 [facility] Comment on above: Performed By: #### L 500.2500, L100.0100 ####[facility] [address] [place], [address] Basophil percentageOrdered B y: Margy Leroy on 04-23-2025 Basophils/100 WBC (Bld) 0.4 % 0-1 [facility] CBC W/Diff, Automatedon Absolute Lymph 2.91 X10 3/uL Normal 0.83-4.51 [facility] Comment on above: Performed By: #### L 500.2500, L100.0100 ####[facility] [address] [place], [address] Absolute Neut 4.1 X10 3/uL Normal 2.0-7.7 [facility] Comment on above: Performed By: #### L 500.2500, L100.0100 ####[facility] [address] [place], [address] Basophils/100 WBC (Bld) 0.4 % Normal 0-1 [facility] Comment on above: Performed By: #### L 500.2500, L100.0100 ####[facility] [address] [place], [address] Eosinophils/100 WBC (Bld) 1.9 % Normal 0-5 [facility] Comment on above: Performed By: #### L 500.2500, L100.0100 ####[facility] [address] [place], [address] Erythrocyte distribution width (RBC) [Ratio] 15.1 % High 11.6-14.6 [facility] Comment on above: Performed By: #### L 500.2500, L100.0100 ####[facility] [address] [place], [address] Hematocrit (Bld) [Volume fraction] 39.5 % Low 40-54 [facility] Comment on above: Performed By: #### L 500.2500, L100.0100 ####[facility] [address] [place], [address] Hemoglobin (Bld) [Mass/Vol] 13.1 g/dL Normal 13.0-16.5 [facility] Comment on above: Performed By: #### L 500.2500, L100.0100 ####[facility] [address] [place], [address] IG% 0.500 Normal 0.0-0.9 [facility] Comment on above: Result Comment: IG% - Immature Granulocytes (promyelocytes, myelocytes andmetamyelocytes) > 1% indicates that a LEFT SHIFT is Present. Performed By: #### L 500.2500, L100.0100 ####[facility] [address] [place], [address] Lymphocytes/100 WBC (Bld) 37.3 % Normal 19-41 [facility] Comment on above: Performed By: #### L 500.2500, L100.0100 ####[facility] [address] [place], [address] MCH (RBC) [Entitic mass] 32.6 pg High 27.0-32.0 [facility] Comment on above: Performed By: #### L 500.2500, L100.0100 ####[facility] [address] [place], [address] MCHC (RBC) [Mass/Vol] 33.2 g/dL Normal 32-36 [facility] Comment on above: Performed By: #### L 500.2500, L100.0100 ####[facility] [address] [place], [address] MCV (RBC) [Entitic vol] 98.3 fL High 80-94 [facility] Comment on above: Performed By: #### L 500.2500, L100.0100 ####[facility] [address] [place], [address] Monocytes/100 WBC (Bld) 7.9 % Normal 0-10 [facility] Comment on above: Performed By: #### L 500.2500, L100.0100 ####[facility] [address] [place], [address] Neutrophils/100 WBC (Bld) 52.0 % Normal 47-70 [facility] Comment on above: Performed By: #### L 500.2500, L100.0100 ####[facility] [address] [place], [address] Nucleated RBC (Bld) [#/Vol] 0.3 10*3/uL Normal 0-5 [facility] Comment on above: Performed By: #### L 500.2500, L100.0100 ####[facility] [address] [place], [address] Platelet mean volume (Bld) [Entitic vol] 11.6 fL Normal 6.2-12.0 [facility] Comment on above: Performed By: #### L 500.2500, L100.0100 ####[facility] [address] [place], [address] Platelets (Bld) [#/Vol] 187 10*3/uL Normal 150-450 [facility] Comment on above: Performed By: #### L 500.2500, L100.0100 ####[facility] [address] [place], [address] RBC (Bld) [#/Vol] 4.02 10*6/uL Low 4.6-6.2 [facility] Comment on above: Performed By: #### L 500.2500, L100.0100 ####[facility] [address] [place], [address] RDW SD 53.9 fl High 35.1-43.9 [facility] Comment on above: Performed By: #### L 500.2500, L100.0100 ####[facility] [address] [place], [address] WBC (Bld) [#/Vol] 7.8 10*3/uL Normal 4.4-11.0 [facility] Comment on above: Performed By: #### L 500.2500, L100.0100 ####[facility] [address] [place], [address] Carbon dioxide, total [Moles /volume] in Central venous bloodOrdered By: Margy Leroy on 04-23-2025 CO2 [Moles/Vol] 23.5 mmol/L 21.0-32.0 [facility] Chest 1 Viewon 04-23-2025 Chest 1 View Normal [facility] Chloride assayOrdered By: Marissa Leroy on 04-23-2025 Chloride [Moles/Vol] 107 mmol/L 98-108 [facility] Emergency Department Summary on 04-23-2025 Emergency Department Summary Normal [facility] Eosinophil percentageOrdered By: Margy Leroy on 04-23-2025 Eosinophils/100 WBC (Bld) 1.9 % 0-5 [facility] Erythrocyte distribution wid th ratioOrdered By: Margy Leroy on 04-23-2025 Erythrocyte distribution width (RBC) [Ratio] 15.1 % High 11.6-14.6 [facility] Erythrocyte distribution wid th standard deviationOrdered By: Margy Leroy on 04-23-2025 Erythrocyte distribution width (RBC) [Ratio] 53.9 fl High 35.1-43.9 [facility] Glomerular filtration rate ( GFR) estimation/1.73 sq m using serum, plasma, or whole bOrdered By: Margy Leroy on 04-23-2025 GFR/1.73 sq M.predicted among non-blacks MDRD (S/P/Bld) [Vol rate/Area] 37 mL/min/{1.73_m2} Low >60 [facility] Comment on above: mL/min/1.73m2 CKD-EP I Creatinine Equation (2020) H AND P Exam - Hospital[place] 04-23-2025 H&P Exam - Hospitalist Normal [facility] HIP, UNI W/ Pelvis 2-3 Views on 04-23-2025 HIP, UNI W/ Pelvis 2-3 Views Normal [facility] Hematocrit Auto (Bld) [Volum e fraction]Ordered By: Margy Leroy on 04-23-2025 Hematocrit (Bld) [Volume fraction] 39.5 % Low 40-54 [facility] Hemoglobin measurementOrdere d By: Margy Leroy on 04-23-2025 Hemoglobin (Bld) [Mass/Vol] 13.1 g/dL 13.0-16.5 [facility] Immature granulocytes/100 WB C Auto (Bld)Ordered By: Margy Leroy on 04-23-2025 Immature granulocytes/100 WBC (Bld) 0.500 % 0.0-0.9 [facility] Comment on above: IG% - Immature Granu locytes (promyelocytes, myelocytes and metamyelocytes) > 1% indicates that a LEFT SHIFT is Present. International normalized rat io (INR) calculationOrdered By: Margy Leroy on 04-23-2025 INR Coag (Bld) [Relative time] 1.1 {INR} [facility] MCV (mean corpuscular volume ) determinationOrdered By: Margy Leroy on 04-23-2025 MCV (RBC) [Entitic vol] 98.3 fL High 80-94 [facility] Magnesiumon 04-23-2025 Magnesium [Mass/Vol] 2.3 mg/dL High 1.5-2.2 [facility] Comment on above: Order Comment: Comme nts: may add to ED labs Performed By: #### L 501.5200 ####[facility] [address] [place], [address] Magnesium measurement (mass/ volume)Ordered By: Paty Morgan on 04-23-2025 Magnesium (Unsp spec) [Mass/Vol] 2.3 mg/dL High 1.5-2.2 [facility] Mean corpuscular hemoglobin (MCH) determinationOrdered By: Margy Leroy on 04-23-2025 MCH (RBC) [Entitic mass] 32.6 pg High 27.0-32.0 [facility] Mean corpuscular hemoglobin concentration (MCHC) determinationOrdered By: Margy Leroy on 04-23-2025 MCHC (RBC) [Mass/Vol] 33.2 g/dL 32-36 [facility] Mean platelet volume determi nationOrdered By: Margy Leroy on 04-23-2025 Platelet mean volume (Bld) [Entitic vol] 11.6 fL 6.2-12.0 [facility] Monocyte percentageOrdered B y: Margy Leroy on 04-23-2025 Monocytes/100 WBC (Bld) 7.9 % 0-10 [facility] Neutrophil percentageOrdered By: Margy Leroy on 04-23-2025 Neutrophils/100 WBC (Bld) 52.0 % 47-70 [facility] Nucleated red blood cell per centageOrdered By: Margy Leroy on 04-23-2025 Nucleated RBC/100 WBC (Bld) [Ratio] 0.3 % 0-5 [facility] Platelet countOrdered By: Marissa Leroy on 04-23-2025 Platelets (Bld) [#/Vol] 187 10*3/uL 150-450 [facility] Potassium measurement (mass/ volume)Ordered By: Margy Leroy on 04-23-2025 Potassium (Unsp spec) [Mass/Vol] 5.3 mmol/L High 3.3-5.1 [facility] Prothrombin Time w/INRon INR Coag (PPP) [Relative time] 1.1 {INR} Normal [facility] Comment on above: Performed By: #### L 300.3900, BTS ####[facility] [address] [place], [address] PT Coag (PPP) [Time] 13.9 s Normal 11.7-14.9 [facility] Comment on above: Performed By: #### L 300.3900, BTS ####[facility] [address] [place], [address] Prothrombin timeOrdered By: Margy Leroy on 04-23-2025 PT Coag (PPP) [Time] 13.9 s 11.7-14.9 [facility] RBC Auto (Bld) [#/Vol]Ordere d By: Margy Leroy on 04-23-2025 RBC (Bld) [#/Vol] 4.02 10*6/uL Low 4.6-6.2 [facility] Serum creatinine measurement (mass/volume)Ordered By: Margy Leroy on 04-23-2025 Creatinine [Mass/Vol] 1.81 mg/dL High 0.70-1.20 [facility] Serum glucose measurement (m ass/volume)Ordered By: Margy Leroy on 04-23-2025 Glucose [Mass/Vol] 86 mg/dL 70-99 [facility] Serum or plasma calcium devante urement (mass/volume)Ordered By: Margy Leroy on 04-23-2025 Calcium [Mass/Vol] 8.9 mg/dL 7.6-11.0 [facility] Serum or plasma urea nitroge n measurement (mass/volume)Ordered By: Margy Leroy on 04-23-2025 Urea nitrogen [Mass/Vol] 38 mg/dL High 4-19 [facility] Sodium levelOrdered By: Constantino Leroy on 04-23-2025 Sodium [Moles/Vol] 140 mmol/L 133-145 [facility] Type AND Screenon 04-23-2025 Ab SCREEN GEL Negative Normal [facility] Comment on above: Order Comment: S Performed By: #### L 300.3900, BTS ####[facility] [address] [place], [place], [id number] ABO and Rh group Nom (Bld) Blood group O Rh(D) positive Normal [facility] Comment on above: Order Comment: S Performed By: #### L 300.3900, BTS ####[facility] [address] [place], [place], [id number] White blood cell (WBC) count Ordered By: Margy Leroy on 04-23-2025 WBC (Bld) [#/Vol] 7.8 10*3/uL 4.4-11.0 [facility] CNOVon 04-09-2025 CNOV Office Visit (PODIWS ) MICHAEL MULLINS ([id number]) 1940 Michelle Date Time Provider Department 04/09/25 9:00 AM LORI GOODMAN PODIWS During your visit [...] Objective: Patient presents to clinic ambulating in [facility] Vasc: DP and PT pulses [...] or sore from your shoes, do not "pop" it. Apply a bandage and wear a different pair of shoes. Take Care of Your Toenails Cut toenails after bathing, when they are soft. Cut toenails straight across and smooth with a nail file. Avoid cutting into the corners of toes. Do not cut cuticles. If you have neuropathy (or decreased sensation in your feet) a billing analyst should always cut your toenails. Be Careful [...] provider recom (more content not included)... Normal [facility] CNOVon 01-08-2025 CNOV Office Visit (PODIWS ) MICHAEL MULLINS ([id number]) 1940 M Date Time Provider Department 01/08/25 [...] or sore from your shoes, do not "pop" it. Apply a bandage and wear a different pair of shoes. Take Care of Your Toenails Cut toenails after bathing, when they are soft. Cut toenails straight across and smooth with a nail file. Avoid cutting into the corners of toes. Do not cut cuticles. If you have neuropathy (or decreased sensation in your feet) a billing analyst should always cut your toenails. Be Careful [...] your shoes are too tight. Perform the "footwear test" described below. Footwear Test Use this simple [...] Go to your health care provider or billing analyst to treat these conditions. Lori Goodman 01/08/2025 [...] no ch (more content not included)... Normal [facility] MICHAEL [facility]ULL[facility] ([id number]) 1940 M Date Time Provider Department 11/16/24 BARON ESPINOZA [facility] During your visit today, we recorded the following information about you: Baron Espinoza MD 11/16/2024 11:56 AM Signed His [...] whether stage 3a or 3b CKD (HCC) [N18.30] Order(s):CONSULT TO NEPHROLOGY [9018] Order #: [id number]: 1 FUTURE Prescriptions as of 11/20/2024 - [...] Status:Closed by MIRLANDE KEYES on 11/17/24 Normal [facility] ALBUMIN/CREATININE RATIO, UR NIESHAon 11-13-2024 Albumin DL <= 20 mg/L (U) [Mass/Vol] 836.7 mg/L Normal [facility] Comment on above: Order Comment: Speci men Type: URINE SPECIMENOrdering Facility: [facility] Address: [address] [place] [address] Performed By: #### U ACR ####[facility] LABCLIA [id number] [place] [address] [place] Albumin/Creatinine (U) [Mass ratio] 585 mg/g High <30 [facility] Comment on above: Order Comment: Speci men Type: URINE SPECIMENOrdering Facility: [facility] Address: [address] [place] [address] Result Comment: Adul t Male and Female Nephrotic Criteria: <30 mg/g is considered normal to mildly increased 30-300 mg/g is considered moderately increased >300 mg/g is considered severely increased KDIGO. (2013). KDIGO 2012 Clinical Practice Guideline for the Evaluation and Management of Chronic Kidney Disease. Official Journal of the International Society of Nephrology, 3(1), 1-150. Performed By: #### U ACR ####[facility] LABCLIA [id number] [place] [id number] [place] Creatinine (U) [Mass/Vol] 143.0 mg/dL Normal 20.0-300.0 [facility] Comment on above: Order Comment: Speci men Type: URINE SPECIMENOrdering Facility: [facility] Address: [address] [place] [address] Performed By: #### U ACR ####[facility] LABCLIA [id number] [place] [id number] [place] CBC W Auto Differential pane l (Bld)on 11-13-2024 Basophils (Bld) [#/Vol] 0.03 10*3/uL [facility] Basophils/100 WBC (Bld) 0.3 % C [facility] Differential cell count method Nom (Bld) Auto [facility] Eosinophils (Bld) [#/Vol] 0.11 10*3/uL [facility] Eosinophils/100 WBC (Bld) 1.2 % [facility] Erythrocyte distribution width (RBC) [Ratio] 15.5 % High 11.5 - 15.0 % [facility] Hematocrit (Bld) [Volume fraction] 42.9 % 39.0 - 51.0 % [facility] Hemoglobin (Bld) [Mass/Vol] 13.7 g/dL 13.0 - 17.0 g/dL [facility] Immature granulocytes (Bld) [#/Vol] 0.04 10*3/uL [facility] Immature granulocytes/100 WBC (Bld) 0.4 % [facility] Interpretation and review of laboratory results Abnormal [facility] Lymphocytes (Bld) [#/Vol] 2.96 10*3/uL [facility] Lymphocytes/100 WBC (Bld) 31.0 % [facility] MCH (RBC) [Entitic mass] 32.1 pg 26.0 - 34.0 pg [facility] MCHC (RBC) [Mass/Vol] 31.9 g/dL 30.5 - 36.0 g/dL [facility] MCV (RBC) [Entitic vol] 100.5 fL High 80.0 - 100.0 fL [facility] Monocytes (Bld) [#/Vol] 0.59 10*3/uL [facility] Monocytes/100 WBC (Bld) 6.2 % [facility] Neutrophils (Bld) [#/Vol] 5.83 10*3/uL [facility] Neutrophils/100 WBC (Bld) 60.9 % [facility] Nucleated RBC (Bld) [#/Vol[facility] Nucleated RBC/100 WBC (Bld) [Ratio] 0.0 % /100 WBC [facility] Platelet mean volume (Bld) [Entitic vol] 10.7 fL 9.0 - 12.7 fL [facility] Platelets (Bld) [#/Vol] 170 10*3/uL [facility] RBC (Bld) [#/Vol] 4.27 10*6/uL 4.20 - 6.0 0 m/uL [facility] WBC (Bld) [#/Vol] 9.56 10*3/uL [facility] Basophils (Bld) [#/Vol] 0.03 10*3/uL Normal <0.11 [facility] Comment on above: Order Comment: Speci men Type: BLOOD SPECIMENOrdering Facility: [facility] Address: [address] [place] [address] Performed By: #### 5 7021-8 ####[facility] LABCLIA [id number] [place] [address] [place] Basophils/100 WBC (Bld) 0.3 % Normal [facility] Comment on above: Order Comment: Speci men Type: BLOOD SPECIMENOrdering Facility: [facility] Address: [address] [place] [address] Performed By: #### 5 7021-8 ####[facility] LABCLIA [id number] [place] [address] [place] Differential cell count method Nom (Bld) Auto Normal [facility] Comment on above: Order Comment: Speci men Type: BLOOD SPECIMENOrdering Facility: [facility] Address: [address] [place] [address] Performed By: #### 5 7021-8 ####[facility] LABCLIA [id number] [place] [address] [place] Eosinophils (Bld) [#/Vol] 0.11 10*3/uL Normal <0.46 [facility] Comment on above: Order Comment: Speci men Type: BLOOD SPECIMENOrdering Facility: [facility] Address: [address] [place] [address] Performed By: #### 5 7021-8 ####[facility] LABCLIA [id number] [address] [address] [place] Eosinophils/100 WBC (Bld) 1.2 % Normal [facility] Comment on above: Order Comment: Speci men Type: BLOOD SPECIMENOrdering Facility: [facility] Address: [address] [place] [address] Performed By: #### 5 7021-8 ####[facility] LABCLIA [id number] [place] [address] [place] Erythrocyte distribution width (RBC) [Ratio] 15.5 % High 11.5-15.0 [facility] Comment on above: Order Comment: Speci men Type: BLOOD SPECIMENOrdering Facility: [facility] Address: [address] [place] [address] Performed By: #### 5 7021-8 ####[facility] LABCLIA [id number] [place] [address] [place] Hematocrit (Bld) [Volume fraction] 42.9 % Normal 39.0-51.0 [facility] Comment on above: Order Comment: Speci men Type: BLOOD SPECIMENOrdering Facility: [facility] Address: [address] [place] [address] Performed By: #### 5 7021-8 ####[facility] LABCLIA [id number] [place] [address] [place] Hemoglobin (Bld) [Mass/Vol] 13.7 g/dL Normal 13.0-17.0 [facility] Comment on above: Order Comment: Speci men Type: BLOOD SPECIMENOrdering Facility: [facility] Address: [address] [place] [address] Performed By: #### 5 7021-8 ####[facility] LABCLIA [id number] [place] [address] [place] Immature granulocytes (Bld) [#/Vol] 0.04 10*3/uL Normal <0.10 [facility] Comment on above: Order Comment: Speci men Type: BLOOD SPECIMENOrdering Facility: [facility] Address: [address] [place] [address] Performed By: #### 5 7021-8 ####[facility] LABCLIA [id number] [place] [address] [place] Immature granulocytes/100 WBC (Bld) 0.4 % Normal [facility] Comment on above: Order Comment: Speci men Type: BLOOD SPECIMENOrdering Facility: [facility] Address: [address] [place] [address] Performed By: #### 5 7021-8 ####[facility] LABCLIA [id number] [place] [address] [place] Lymphocytes (Bld) [#/Vol] 2.96 10*3/uL Normal 1.00-4.00 [facility] Comment on above: Order Comment: Speci men Type: BLOOD SPECIMENOrdering Facility: [facility] Address: [address] [place] [address] Performed By: #### 5 7021-8 ####[facility] LABIA [id number] [place] [address] [place] Lymphocytes/100 WBC (Bld) 31.0 % Normal [facility] Comment on above: Order Comment: Speci men Type: BLOOD SPECIMENOrdering Facility: [facility] Address: [address] [place] [address] Performed By: #### 5 7021-8 ####[facility] LABCLIA [id number] [place] [address] [place] MCH (RBC) [Entitic mass] 32.1 pg Normal 26.0-34.0 [facility] Comment on above: Order Comment: Speci men Type: BLOOD SPECIMENOrdering Facility: [facility] Address: [address] [place] [address] Performed By: #### 5 7021-8 ####[facility] LABCLIA [id number] [place] [address] [place] MCHC (RBC) [Mass/Vol] 31.9 g/dL Normal 30.5-36.0 [facility] Comment on above: Order Comment: Speci men Type: BLOOD SPECIMENOrdering Facility: [facility] Address: [address] [place] [address] Performed By: #### 5 7021-8 ####[facility] LABIA [id number] [place] [address] [place] MCV (RBC) [Entitic vol] 100.5 fL High 80.0-100.0 C [facility] Comment on above: Order Comment: Speci men Type: BLOOD SPECIMENOrdering Facility: [facility] Address: [address] [place] [address] Performed By: #### 5 7021-8 ####[facility] LABIA [id number] [place] [address] [place] Monocytes (Bld) [#/Vol] 0.59 10*3/uL Normal <0.87 [facility] Comment on above: Order Comment: Speci men Type: BLOOD SPECIMENOrdering Facility: [facility] Address: [address] [place] [address] Performed By: #### 5 7021-8 ####[facility] LABIA [id number] [place] [address] [place] Monocytes/100 WBC (Bld) 6.2 % Normal [facility] Comment on above: Order Comment: Speci men Type: BLOOD SPECIMENOrdering Facility: [facility] Address: [address] [place] [address] Performed By: #### 5 7021-8 ####[facility] LABCLIA [id number] [place] [address] [place] Neutrophils (Bld) [#/Vol] 5.83 10*3/uL Normal 1.45-7.50 [facility] Comment on above: Order Comment: Speci men Type: BLOOD SPECIMENOrdering Facility: [facility] Address: [address] [place] [address] Performed By: #### 5 7021-8 ####[facility] LABCLIA [id number] [place] [address] [place] Neutrophils/100 WBC (Bld) 60.9 % Normal [facility] Comment on above: Order Comment: Speci men Type: BLOOD SPECIMENOrdering Facility: [facility] Address: [address] [place] [address] Performed By: #### 5 7021-8 ####[facility] LABCLIA [id number] [place] [address] [place] Nucleated RBC (Bld) [#/Vol] 10*3/uL Normal <0.01 [facility] Comment on above: Order Comment: Speci men Type: BLOOD SPECIMENOrdering Facility: [facility] Address: [address] [place] [address] Performed By: #### 5 7021-8 ####[facility] LABCLIA [id number] [place] [address] [place] Nucleated RBC/100 WBC (Bld) [Ratio] 0.0 /100 WBC Normal [facility] Comment on above: Order Comment: Speci men Type: BLOOD SPECIMENOrdering Facility: [facility] Address: [address] [place] [address] Performed By: #### 5 7021-8 ####[facility] LABCLIA [id number] [place] [address] [place] Platelet mean volume (Bld) [Entitic vol] 10.7 fL Normal 9.0-12.7 [facility] Comment on above: Order Comment: Speci men Type: BLOOD SPECIMENOrdering Facility: [facility] Address: [address] [place] [address] Performed By: #### 5 7021-8 ####[facility] LABCLIA [id number] [place] [address] [place] Platelets (Bld) [#/Vol] 170 10*3/uL Normal 150-400 [facility] Comment on above: Order Comment: Speci men Type: BLOOD SPECIMENOrdering Facility: [facility] Address: [address] [place] [address] Performed By: #### 5 7021-8 ####[facility] [id number] [place] [address] [place] RBC (Bld) [#/Vol] 4.27 10*6/uL Normal 4.20-6.00 [facility] Comment on above: Order Comment: Speci men Type: BLOOD SPECIMENOrdering Facility: [facility] Address: [address] [place] [address] Performed By: #### 5 7021-8 ####[facility] [id number] [place] [address] [place] WBC (Bld) [#/Vol] 9.56 10*3/uL Normal 3.70-11.00 [facility] Comment on above: Order Comment: Speci men Type: BLOOD SPECIMENOrdering Facility: [facility] Address: [address] [place] [address] Performed By: #### 5 7021-8 ####[facility] [id number] [place] [address] [place] CNOVon 11-13-2024 CNOV Office Visit (FAMPWS ) MICHAEL MULLINS ([id number]) 1940 M Date Time Provider Department 11/13/24 10:00 AM BARON ESPINOZAWS During your visit today, we recorded the following information about you: Pulse Respiration Blood pressure Weight 62/minute 16/minute 134/82 65.3 kg Baron Espinoza MD 11/13/2024 11:01 AM Signed Patient [...] complication, without long-term current use of insulin ([facility]) 07/24/2016 Degenerative disc disease, cervical 12/09/2015 Depression [...] lb) PHYSIC (more content not included)... Normal [facility] Comprehensive metabolic 2000 panelon 11-13-2024 Albumin [Mass/Vol] 4.2 g/dL Normal 3.9-4.9 [facility] Comment on above: Order Comment: Speci men Type: BLOOD SPECIMENOrdering Facility: [facility] Address: [address] [place] [address] Performed By: #### 2 4323-8, LIPNF, 3083-1 ####[facility] LABCLIA [id number] [place] [address] [place] ALP [Catalytic activity/Vol] 115 U/L High 38-113 [facility] Comment on above: Order Comment: Speci men Type: BLOOD SPECIMENOrdering Facility: [facility] Address: [address] [place] [address] Performed By: #### 2 4323-8, LIPNF, 308-1 ####[facility] LABCLIA [id number] [place] [address] [place] ALT [Catalytic activity/Vol] 24 U/L Normal 10-54 [facility] Comment on above: Order Comment: Speci men Type: BLOOD SPECIMENOrdering Facility: [facility] Address: [address] [place] [address] Performed By: #### 2 4323-8, LIPNF, 308-1 ####[facility] LABCLIA [id number] [place] [address] [place] Anion gap [Moles/Vol] 15 mmol/L Normal 8-15 [facility] Comment on above: Order Comment: Speci men Type: BLOOD SPECIMENOrdering Facility: [facility] Address: [address] [place] [address] Performed By: #### 2 4323-8, LIPNF, 3083- ####[facility] LABCLIA [id number] [place] [address] [place] AST [Catalytic activity/Vol] 39 U/L Normal 14-40 [facility] Comment on above: Order Comment: Speci men Type: BLOOD SPECIMENOrdering Facility: [facility] Address: [address] [place] [address] Performed By: #### 2 4323-8, LIPNF, 3083- ####[facility] LABCLIA [id number] [place] [address] [place] Bilirubin [Mass/Vol] 0.3 mg/dL Normal 0.2-1.3 [facility] Comment on above: Order Comment: Speci men Type: BLOOD SPECIMENOrdering Facility: [facility] Address: [address] [place] [address] Performed By: #### 2 4323-8, LIPNF, 3083-1 ####[facility] LABIA [id number] [place] [address] [place] Calcium [Mass/Vol] 9.3 mg/dL Normal 8.5-10.2 [facility] Comment on above: Order Comment: Speci men Type: BLOOD SPECIMENOrdering Facility: [facility] Address: [address] [place], [place] [address] Performed By: #### 2 4323-8, LIPNF, 3083-1 ####[facility] LABIA [id number] [place] [address] [place] Chloride [Moles/Vol] 107 mmol/L Normal 98-107 [facility] Comment on above: Order Comment: Speci men Type: BLOOD SPECIMENOrdering Facility: [facility] Address: [address] [place], [place] [address] Performed By: #### 2 4323-8, LIPNF, 3083- ####[facility] LABCLIA [id number] [place] [address] [place] CO2 [Moles/Vol] 21 mmol/L Low 22-30 [facility] Comment on above: Order Comment: Speci men Type: BLOOD SPECIMENOrdering Facility: [facility] Address: [address] [place] [address] Performed By: #### 2 4323-8, LIPNF, 3083- ####[facility] LABCLIA [id number] [place] [address] [place] Creatinine [Mass/Vol] 1.84 mg/dL High 0.73-1.22 [facility] Comment on above: Order Comment: Speci men Type: BLOOD SPECIMENOrdering Facility: [facility] Address: [address] [place] [address] Performed By: #### 2 4323-8, LIPNF, 3083-11 ####[facility] LABCLIA [id number] [place] [address] [place] Creatinine and Glomerular filtration rate.predicted panel (S/P/Bld) 36 mL/min/1.73m??? Low >=60 [facility] Comment on above: Order Comment: Speci men Type: BLOOD SPECIMENOrdering Facility: [facility] Address: [address] [place] [address] Result Comment: Prachi mated Glomerular Filtration Rate [...] actual GFR. Performed By: #### 2 4323-8, LIPNF, 3083-1 ####[facility] LABCLIA [id number] [place] [address] [place] Glucose [Mass/Vol] 87 mg/dL Normal 74-99 [facility] Comment on above: Order Comment: Speci men Type: BLOOD SPECIMENOrdering Facility: [facility] Address: [address] [place] [address] Result Comment: The [place] Diabetes Association (ADA) provides guidance for cutoff [...] Standards of Medical Care in Diabetes 2016, [place] [employer]. Diabetes Care. 2016.39(Suppl 1). Performed By: #### 2 4323-8, LIPNF, 3084-1 ####[facility] LABCLIA [id number] [place] [address] [place] Potassium [Moles/Vol] 5.0 mmol/L Normal 3.7-5.1 [facility] Comment on above: Order Comment: Speci men Type: BLOOD SPECIMENOrdering Facility: [facility] Address: [address] [place] [address] Performed By: #### 2 4323-8, LIPNF, 3083-1 ####[facility] LABCLIA [id number] [place] [id number] [place] Protein [Mass/Vol] 6.7 g/dL Normal 6.3-8.0 [facility] Comment on above: Order Comment: Speci men Type: BLOOD SPECIMENOrdering Facility: [facility] Address: [address] [place] [address] Performed By: #### 2 4323-8, LIPNF, 3083-1 ####[facility] LABCLIA [id number] [place] [address] [place] Sodium [Moles/Vol] 143 mmol/L Normal 136-144 [facility] Comment on above: Order Comment: Speci men Type: BLOOD SPECIMENOrdering Facility: [facility] Address: [address] [place] [address] Performed By: #### 2 4323-8, LIPJULIAN, 3084-1 ####[facility] [id number] [place] [address] [place] Urea nitrogen [Mass/Vol] 37 mg/dL High 9-24 [facility] Comment on above: Order Comment: Speci men Type: BLOOD SPECIMENOrdering Facility: [facility] Address: [address] [place] [address] Performed By: #### 2 4323-8, LIPNF, 3084-1 ####[facility] [id number] [place] [address] [place] HbA1c (Bld)on 11-13-2024 Average glucose Estimated from glycated hemoglobin (Bld) [Mass/Vol] 111 mg/dL Normal [facility] Comment on above: Order Comment: Speci men Type: BLOOD SPECIMENOrdering Facility: [facility] Address: [address] [place] [address] Result Comment: eAG: (Estimated average glucose) is a calculated value from HgbA1c and is hospital insurance representative of the average blood glucose level in the last 2-3 month period. Performed By: #### 5 5454-3 ####[facility] [id number] [place] [address] [place] HbA1c (Bld) [Mass fraction] 5.5 % Normal 4.3-5.6 [facility] Comment on above: Order Comment: Speci men Type: BLOOD SPECIMENOrdering Facility: [facility] Address: [address] [place] [address] Result Comment: Amer ican Diabetes Association guidelines indicate that patients with HgbA1c in the range 5.7-6.4% are at increased risk for development of diabetes, and intervention by lifestyle modification may be beneficial. HgbA1c greater or equal to 6.5% is considered diagnostic of diabetes. Performed By: #### 5 5454-3 ####[facility] LABCLIA [id number] [place] [address] [place] LIPID PANEL, NONFASTINGon Cholesterol [Mass/Vol] 135 mg/dL Normal <200 [facility] Comment on above: Order Comment: Speci men Type: BLOOD SPECIMENOrdering Facility: [facility] Address: [address] [place] [address] Result Comment: <200 mg/dL, Desirable 200-239 mg/dL, Borderline high >239 mg/dL, High Performed By: #### 2 4323-8, LIPNF, 3084-1 ####[facility] LABCLIA [id number] [address] [place] HDL CHOLESTEROL, NF 65 mg/dL Normal >39 [facility] Comment on above: Order Comment: Speci men Type: BLOOD SPECIMENOrdering Facility: [facility] Address: [address] [place] [address] Result Comment: 40-5 9 mg/dL, Acceptable >59 mg/dL, High: Negative risk factor for coronary heart disease <40 mg/dL, Low: Positive risk factor for coronary heart disease Performed By: #### 2 4323-8, LIPNF, 3084-1 ####[facility] LABCLIA [id number] [address] [place] LDL CHOLESTEROL, NF 57 mg/dL Normal <100 [facility] Comment on above: Order Comment: Speci men Type: BLOOD SPECIMENOrdering Facility: [facility] Address: [address] [place] [address] Result Comment: <100 mg/dL, Optimal 100-129 mg/dL, Near optimal/above optimal 130-159 mg/dL, Borderline high 160-189 mg/dL, High >189 mg/dL, Very high Secondary prevention optimal LDL Cholesterol levels are recommended to be < 70 mg/dL Performed By: #### 2 4323-8, LIPNF, 3083-1 ####[facility] LABCLIA [id number] [place] [address] [place] LDL/HDL RATIO, NF 0.88 mg/dL Normal <2.54 [facility] Comment on above: Order Comment: Speci men Type: BLOOD SPECIMENOrdering Facility: [facility] Address: [address] [place] [address] Result Comment: Refe rence: 1. National Cholesterol Education Program ATP III Guideline At-A-Glance Quick Desk Reference: National Heart, Lung, and Blood [place]. National Institutes of Health. 2001: NIH Publication No. 01-3305. 2. An International Atherosclerosis Society position paper: global recommendations for the management of dyslipidemia: executive summary, Atherosclerosis. 2014: 232(2):410-413. Performed By: #### 2 4323-8, LIPJULIAN, 3083- ####[facility] LABCLIA [id number] [place] [address] [place] NON HDL CHOL, NF 70 mg/dL Normal <130 [facility] Comment on above: Order Comment: Speci men Type: BLOOD SPECIMENOrdering Facility: [facility] Address: [address] [place] [address] Result Comment: <130 mg/dL, Optimal 130-159 mg/dL, Near optimal/above optimal 160-189 mg/dL, Borderline high 190-219 mg/dL, High >219 mg/dL, Very high Secondary prevention optimal non HDL Cholesterol levels are recommended to be <100 mg/dL Performed By: #### 2 4323-8, LIPNF, 3083-1 ####[facility] LABIA [id number] [place] [address] [place] T CHOL/HDL RATIO NF 2.08 mg/dL Normal <5.10 [facility] Comment on above: Order Comment: Speci men Type: BLOOD SPECIMENOrdering Facility: [facility] Address: [address] [place] [address] Performed By: #### 2 4323-8, LIPNF, 3083-1 ####[facility] LABCLIA [id number] [place] [address] [place] TRIGLYCERIDES, NF 63 mg/dL Normal <150 [facility] Comment on above: Order Comment: Speci men Type: BLOOD SPECIMENOrdering Facility: [facility] Address: [address] [place] [address] Result Comment: <150 mg/dL, Normal 150-199 mg/dL, Borderline high 200-499 mg/dL, High >499 mg/dL, Very high Performed By: #### 2 4323-8, LIPNF, 3083- ####[facility] LABCLIA [id number] [place] [address] [place] VLDL CHOLESTEROL, NF 13 mg/dL Normal <30 [facility] Comment on above: Order Comment: Speci men Type: BLOOD SPECIMENOrdering Facility: [facility] Address: [address] [place] [address] Performed By: #### 2 4323-8, LIPNF, 3083- ####[facility] LABIA [id number] [place] [address] [place] Urate SerPl-mCncon 4 Urate [Mass/Vol] 3.4 mg/dL Low 4.0-8.1 [facility] Comment on above: Order Comment: Speci men Type: BLOOD SPECIMENOrdering Facility: [facility] Address: [address] [place] [address] Performed By: #### 2 4323-8, LIPNF, 3083- ####[facility] LABCLIA [id number] [place] [address] [place] CNOVon 10-02-2024 CNOV Office Visit (AKURFL ) MICHAEL MULLINS ([id number]) 1940 M Date Time Provider Department 10/02/24 10:45 AM DUNG GAONA During your visit today, we recorded the following information about you: Pulse Height 73/minute 1.626 m Dung Gaona MD 10/02/2024 10:46 AM Signed ESTABLISHED PATIENT OFFICE VISIT PATIENT INFO: Michael Mullins 84 year old [facility] 10/02/2024 CC: bladder patient Lindsey presents with [...] ambulates with walker April 05, 2023-seen by Lorezno Carballo- 82 year old male with a [...] Proscar 5 mg June 29, 2015-seen by [facility] urology- 1 year follow-up previous prostate biopsy 1 year ago was negative. Feels fantastic. No nausea vomiting diarrhea fevers chills or weight loss. No blood pressures consistent with blood in urine. His P's XE Edita 4.2.8. Happy with his clinical status. I reviewed his previous negative biopsy. RADS: May 23, [id number]-be nign 2023-Cystoscopy/ultras ound prostate-volume 37.7 cc without [...] learn intermittent catheterization May 10, 2014-ultrasound/biopsy of prostate-[facility] urology--- Volume 57 cc Creatinine Date Value Ref Range Status 12/26/2023 3.41 ( (more content not included)... Normal [facility] UA DIP, URINE (POC)on 2023 BILIRUBIN UA (POCT) Negative Negative [facility] CLARITY UA (POCT) Clear [facility] COLOR UA (POCT) Yellow [facility] GLUCOSE UA (POCT) Negative Negative mg/dL [facility] Hemoglobin Ql (U) Negative Negative [facility] Interpretation and review of laboratory results Abnormal [facility] KETONE UA (POCT) Negative Negative mg/dL [facility] LEUKOCYTES UA (POCT) Trace Abnormal Negative [facility] NITRITE UA (POCT) Negative Negative [facility] PH UA (POCT) 5.5 4.5 - 8.0 [facility] Protein Ql (U) 100 mg/dL Abnormal Negative [facility] SPECIFIC GRAVITY UA (POCT) 1.025 1.005 - 1.030 [facility] UROBILINOGEN UA (POCT) 0.2 Jocelyn l E.U./dL [facility] Location:[facility], [address] [place] [address], [address] [place] [address] POINT OF CARE [facility] US MSR POST-VOID RESID URINE on 10-02-2024 PVR-5 mL Niya Doran MA [facility] CNOVon 09-28-2024 CNOV Office Visit (PODIWS ) FARIBAPHILASTERJOOMICHAEL Gaines ([id number]) 1940 M Date Time Provider Department 09/28/24 2:15 PM LORI GOODMAN During your visit today, we [...] Objective: Patient presents to clinic ambulating in [facility] Vasc: DP and PT pulses are [...] Lori Goodman DPM Referring Provider: LORI GOODMAN [[id number]] Allergies As of Date: 09/28/2024 Noted Allergy [...] by mouth every hour as needed. - ebsicgm-zfbdiydjd-fqbu min D3 (CALCIUM 500+D) 500 mg-5 mcg [...] 10/18/2009 Arteri (more content not included)... Normal [facility] Juan Miguel 06-30-2024 [facility] Telephone (KHRISWS) MICHAEL MULLINS ([id number]) 1940 M Date Time Provider Department 06/30/24 [facility] During your visit today, we recorded the following information about you: Skye Arnold 06/30/2024 2:19 PM Signed Patient requesting medication that is : losartan (COZAAR) 50 mg tablet ( Last office visit: 05-20-24 Future appt scheduled: No PHARMACY: [facility] Allergies As of Date: 06/30/2024 Noted Allergy Reaction ALTACE (RAMIPRIL) 09/18/2005 GABAPENTIN 04/06/2013 14 - Other: See Comments Comments: tremors TOPROL XL (METOPROLOL SUCCINATE) 09/18/2005 Date Reviewed: 05/26/2024 Reviewed by: Elgin Mayo RN - Fully Assessed Reason for [...] by mouth every hour as needed. - qcxwquk-oozbbzljp-btbg min D3 (CALCIUM 500+D) 500 mg-5 mcg [...] by mouth once daily. Encounter Status:Closed by BARON ESPINOZA on 06/30/24 [facility] CNOVon 05-26-2024 CNOV Office Visit (PODIWS ) MICHAEL MULLINS ([id number]) 1940 M Date Time Provider Department 05/26/24 8:00 AM LORI GOODMAN PODIWS During your visit today, we recorded the following information about you: Elgin Mayo, TRACY 05/26/2024 8:25 AM Signed Patient presents with: Left Foot - Established Patient, Follow Up, Diabetic Foot Care Right Foot - Established Patient, Follow Up, Diabetic Foot Care Patient presents for follow up diabetic foot/nail care. [facility] 02/20/24 Lori Goodman 05/26/2024 8:25 AM Signed [...] Lori Goodman DPM Referring Provider: LORI GOODMAN [[id number]] Allergies As of Date: 05/26/2024 Noted Allergy Reaction ALTACE (RAMIPRIL) 09/18/2005 GABAPENTIN 04/06/2013 14 - Other: See Comments Comments: tremors TOPROL XL (METOPROLOL SUCCINATE) 09/18/2005 Date Reviewed: 05/26/2024 Reviewed by: Elgin Mayo, TRACY - Fully Assessed Reason for Visit: Established [...] by mouth every hour as needed. - rdzcevd-oaqhurxay-rabf min D3 (CALCIUM 500+D) 500 mg-5 mcg [...] hypertension [I10] (more content not included)... Normal [facility] CBC W/Diff, Automatedon 04-19 Absolute Lymph 2.24 X10 3/uL Normal 0.83-4.51 [facility] Comment on above: Performed By: #### L 504.2610, L100.0100, L500.4050, L503.6030, L503.6550 ####[facility] [address] [place], [address] Absolute Neut 5.9 X10 3/uL Normal 2.0-7.7 [facility] Comment on above: Performed By: #### L 504.2610, L100.0100, L500.4050, L503.6030, L503.6550 ####[facility] [address] [place], [address] Basophils/100 WBC (Bld) 0.6 % Normal 0-1 [facility] Comment on above: Performed By: #### L 504.2610, L100.0100, L500.4050, L503.6030, L503.6550 ####[facility] [address] [place], [address] Eosinophils/100 WBC (Bld) 2.1 % Normal 0-5 [facility] Comment on above: Performed By: #### L 504.2610, L100.0100, L500.4050, L503.6030, L503.6550 ####[facility] [address] [place], [address] Erythrocyte distribution width (RBC) [Ratio] 14.9 % High 11.6-14.6 [facility] Comment on above: Performed By: #### L 504.2610, L100.0100, L500.4050, L503.6030, L503.6550 ####[facility] [address] [place], [address] Hematocrit (Bld) [Volume fraction] 36.5 % Low 40-54 [facility] Comment on above: Performed By: #### L 504.2610, L100.0100, L500.4050, L503.6030, L503.6550 ####[facility] [address] [place], [address] Hemoglobin (Bld) [Mass/Vol] 11.7 g/dL Low 13.0-16.5 [facility] Comment on above: Performed By: #### L 504.2610, L100.0100, L500.4050, L503.6030, L503.6550 ####[facility] [address] [place], [address] IG% 0.200 Normal 0.0-0.9 [facility] Comment on above: Result Comment: IG% - Immature Granulocytes (promyelocytes, myelocytes andmetamyelocytes) > 1% indicates that a LEFT SHIFT is Present. Performed By: #### L 504.2610, L100.0100, L500.4050, L503.6030, L503.6550 ####[facility] [address] [place], [address] Lymphocytes/100 WBC (Bld) 25.0 % Normal 19-41 [facility] Comment on above: Performed By: #### L 504.2610, L100.0100, L500.4050, L503.6030, L503.6550 ####[facility] [address] [place], [address] MCH (RBC) [Entitic mass] 32.1 pg High 27.0-32.0 [facility] Comment on above: Performed By: #### L 504.2610, L100.0100, L500.4050, L503.6030, L503.6550 ####[facility] [address] [place], [address] MCHC (RBC) [Mass/Vol] 32.1 g/dL Normal 32-36 [facility] Comment on above: Performed By: #### L 504.2610, L100.0100, L500.4050, L503.6030, L503.6550 ####[facility] [address] [place], [address] MCV (RBC) [Entitic vol] 100.0 fL High 80-94 [facility] Comment on above: Performed By: #### L 504.2610, L100.0100, L500.4050, L503.6030, L503.6550 ####[facility] [address] [place], [address] Monocytes/100 WBC (Bld) 6.1 % Normal 0-10 [facility] Comment on above: Performed By: #### L 504.2610, L100.0100, L500.4050, L503.6030, L503.6550 ####[facility] [address] [place], [address] Neutrophils/100 WBC (Bld) 66.0 % Normal 47-70 [facility] Comment on above: Performed By: #### L 504.2610, L100.0100, L500.4050, L503.6030, L503.6550 ####[facility] [address] [place], [address] Nucleated RBC (Bld) [#/Vol] 0 10*3/uL Normal 0-5 [facility] Comment on above: Performed By: #### L 504.2610, L100.0100, L500.4050, L503.6030, L503.6550 ####[facility] [address] [place], [address] Platelet mean volume (Bld) [Entitic vol] 10.9 fL Normal 6.2-12.0 [facility] Comment on above: Performed By: #### L 504.2610, L100.0100, L500.4050, L503.6030, L503.6550 ####[facility] [address] [place], [address] Platelets (Bld) [#/Vol] 188 10*3/uL Normal 150-450 [facility] Comment on above: Performed By: #### L 504.2610, L100.0100, L500.4050, L503.6030, L503.6550 ####[facility] [address] [place], [address] RBC (Bld) [#/Vol] 3.65 10*6/uL Low 4.6-6.2 [facility] Comment on above: Performed By: #### L 504.2610, L100.0100, L500.4050, L503.6030, L503.6550 ####[facility] [address] [place], [address] RDW SD 54.5 fl High 35.1-43.9 [facility] Comment on above: Performed By: #### L 504.2610, L100.0100, L500.4050, L503.6030, L503.6550 ####[facility] [address] [place], [address] WBC (Bld) [#/Vol] 9.0 10*3/uL Normal 4.4-11.0 [facility] Comment on above: Performed By: #### L 504.2610, L100.0100, L500.4050, L503.6030, L503.6550 ####[facility] [address] [place], [address] Comprehensive Metabolic Prof ncon 05-12-2024 Albumin [Mass/Vol] 3.7 g/dL Normal 3.2-5.0 [facility] Comment on above: Order Comment: 1 Performed By: #### L 504.2610, L100.0100, L500.4050, L503.6030, L503.6550 ####[facility] [address] [place], [address] Albumin/Globulin [Mass ratio] 1.3 {ratio} Normal 0.9-2.4 [facility] Comment on above: Order Comment: 1 Performed By: #### L 504.2610, L100.0100, L500.4050, L503.6030, L503.6550 ####[facility] [address] [place], [address] ALK P 139 U/L High 45-117 [facility] Comment on above: Order Comment: 1 Performed By: #### L 504.2610, L100.0100, L500.4050, L503.6030, L503.6550 ####[facility] [address] [place], [address] ALT [Catalytic activity/Vol] 46 U/L Normal 16-61 [facility] Comment on above: Order Comment: 1 Performed By: #### L 504.2610, L100.0100, L500.4050, L503.6030, L503.6550 ####[facility] [address] [place], [address] AST [Catalytic activity/Vol] 49 U/L High 15-37 [facility] Comment on above: Order Comment: 1 Performed By: #### L 504.2610, L100.0100, L500.4050, L503.6030, L503.6550 ####[facility] [address] [place], [address] Bilirubin [Mass/Vol] 0.60 mg/dL Normal 0.20-1.00 [facility] Comment on above: Order Comment: 1 Result Comment: For patients on eltrombopag therapy, use of Dimension [place] TBIL is not recommended. Performed By: #### L 504.2610, L100.0100, L500.4050, L503.6030, L503.6550 ####[facility] [address] [place], [address] BUN/CRE 16.1 RATIO Normal 10-20 [facility] Comment on above: Order Comment: 1 Performed By: #### L 504.2610, L100.0100, L500.4050, L503.6030, L503.6550 ####[facility] [address] [place], [address] CA,Total 8.5 mg/dL Normal 8.5-10.1 [facility] Comment on above: Order Comment: 1 Performed By: #### L 504.2610, L100.0100, L500.4050, L503.6030, L503.6550 ####[facility] [address] [place], [address] Chloride [Moles/Vol] 112 mmol/L High 98-107 [facility] Comment on above: Order Comment: 1 Performed By: #### L 504.2610, L100.0100, L500.4050, L503.6030, L503.6550 ####[facility] [address] [place], [address] CO2 [Moles/Vol] 26.0 mmol/L Normal 21.0-32.0 [facility] Comment on above: Order Comment: 1 Performed By: #### L 504.2610, L100.0100, L500.4050, L503.6030, L503.6550 ####[facility] [address] [place], [address] Creatinine [Mass/Vol] 1.86 mg/dL High 0.70-1.30 [facility] Comment on above: Order Comment: 1 Result Comment: The validity of the calculated GFR GFRAA in patients over70 years has not been determined. Clinical correlation isessential. Performed By: #### L 504.2610, L100.0100, L500.4050, L503.6030, L503.6550 ####[facility] [address] [place], [address] ECRCL 23.97 ml/min Normal [facility] Comment on above: Order Comment: 1 Performed By: #### L 504.2610, L100.0100, L500.4050, L503.6030, L503.6550 ####[facility] [address] [place], [address] EST GFR - AA 45 mL/min Low >60 [facility] Comment on above: Order Comment: 1 Result Comment: Afri can [place] GFR Calc Performed By: #### L 504.2610, L100.0100, L500.4050, L503.6030, L503.6550 ####[facility] [address] [place], [address] GAP 2 Low 5-15 [facility] Comment on above: Order Comment: 1 Performed By: #### L 504.2610, L100.0100, L500.4050, L503.6030, L503.6550 ####[facility] [address] [place], [address] GFR/1.73 sq M.predicted among non-blacks MDRD (S/P/Bld) [Vol rate/Area] 37 mL/min/{1.73_m2} Low >60 [facility] Comment on above: Order Comment: 1 Result Comment: Non- GFR Calc Performed By: #### L 504.2610, L100.0100, L500.4050, L503.6030, L503.6550 ####[facility] [address] [place], [address] Globulin (S) [Mass/Vol] 2.9 g/dL Normal 2.2-4.2 [facility] Comment on above: Order Comment: 1 Performed By: #### L 504.2610, L100.0100, L500.4050, L503.6030, L503.6550 ####[facility] [address] [place], [address] Glucose [Mass/Vol] 147 mg/dL High 74-106 [facility] Comment on above: Order Comment: 1 Result Comment: Fast ing Glucose result greater than or equal to 126 mg/dLsuggests DIABETES MELLITUS per A.D.A. criteria. Performed By: #### L 504.2610, L100.0100, L500.4050, L503.6030, L503.6550 ####[facility] [address] [place], [address] Potassium [Moles/Vol] 4.7 mmol/L Normal 3.5-5.1 [facility] Comment on above: Order Comment: 1 Performed By: #### L 504.2610, L100.0100, L500.4050, L503.6030, L503.6550 ####[facility] [address] [place], [address] Sodium [Moles/Vol] 140 mmol/L Normal 136-145 [facility] Comment on above: Order Comment: 1 Performed By: #### L 504.2610, L100.0100, L500.4050, L503.6030, L503.6550 ####[facility] [address] [place], [address] T PROT 6.6 g/dL Normal 6.4-8.2 [facility] Comment on above: Order Comment: 1 Performed By: #### L 504.2610, L100.0100, L500.4050, L503.6030, L503.6550 ####[facility] [address] [place], [address] Urea nitrogen [Mass/Vol] 30 mg/dL High 7-18 [facility] Comment on above: Order Comment: 1 Performed By: #### L 504.2610, L100.0100, L500.4050, L503.6030, L503.6550 ####[facility] [address] [place], [address] Ferritinon 05-12-2024 Ferritin [Mass/Vol] 86 ng/mL Normal 26-388 [facility] Comment on above: Order Comment: 1 Performed By: #### L 504.2610, L100.0100, L500.4050, L503.6030, L503.6550 ####[facility] [address] [place], [address] Iron+Iron Binding Capacityon 05-12-2024 Iron [Mass/Vol] 75 ug/dL Normal 65-175 [facility] Comment on above: Order Comment: 1 Performed By: #### L 504.2610, L100.0100, L500.4050, L503.6030, L503.6550 ####[facility] [address] [place], [address] IRON SATURATION 27.4 Normal 15.0-55.0 [facility] Comment on above: Order Comment: 1 Performed By: #### L 504.2610, L100.0100, L500.4050, L503.6030, L503.6550 ####[facility] [address] [place], [address] TIBC 274 ug/dL Normal 250-450 [facility] Comment on above: Order Comment: 1 Performed By: #### L 504.2610, L100.0100, L500.4050, L503.6030, L503.6550 ####[facility] [address] [place], [address] LDHon 05-12-2024 LDH 204 U/L Normal 87-241 [facility] Comment on above: Order Comment: 1 Performed By: #### L 504.2610, L100.0100, L500.4050, L503.6030, L503.6550 ####[facility] [address] [place], [address] Oncology Visit Reporton 04-19 Oncology Visit Report Normal [facility] CNPTamra 12-23-2023 CNPN Telephone (UROLAE) MICHAEL MULLINS ([id number]) 1940 M Date Time Provider Department 12/23/23 DUNG GAONA (HISTORICAL)ANGELES During your visit today, we recorded the following information about you: Behzad Cage MA 12/23/2023 1:38 PM Signed Called pt and spoke with spouse/spouse states that he is ok without taking Proscar/spouse states he has been off of medication for a week and doing well NIKKI Betancourt Cma, Niya 12/23/2023 1:52 PM Addendum This is the previous message from Dr. Gaona's Rx response- call the patient and see if he wants to remain on the Proscar and and if he does we can refill the Proscar at my last visit with him we discussed he is allowed to stop it Niya Doran Cma Allergies As of Date: 12/23/2023 Noted Allergy Reaction ALTACE (RAMIPRIL) 09/18/2005 GABAPENTIN 04/06/2013 14 - Other: See Comments Comments: tremors TOPROL XL (METOPROLOL SUCCINATE) 09/18/2005 Date Reviewed: 12/09/2023 Reviewed by: Perlita Maurice, RN - Fully Assessed Prescriptions as of 12/23/2023 [...] by mouth every hour as needed. - mrwhwfh-iutgjjhiz-eiav min D3 (CALCIUM 500+D) 500 mg-5 mcg [...] Encounter Status:Closed by BEHZAD CAGE on 12/23/23 [facility] CNOVon 10-07-2023 [facility] Office Visit (AKURFL ) MICHAEL MULLINS ([id number]) 1940 M Date Time Provider Department 10/07/23 9:15 AM DUNG GAONA During your visit today, we recorded the following information about you: Height 1.626 m Dung Gaona MD 10/07/2023 6:25 PM Signed ESTABLISHED [...] Proscar and Cardura In November 2022-saw Lorenzo Kait in residual urine was 0 cc Presents [...] Proscar 5 mg June 29, 2015-seen by [facility] urology- 1 year follow-up previous prostate biopsy 1 year ago was negative. Feels fantastic. No nausea vomiting diarrhea fevers chills or weight loss. No blood pressures consistent with blood in urine. His P's XE Edita 4.2.8. Happy with his clinical status. I reviewed his previous negative biopsy. RADS: May 23, [id number] nign 2023-Cystoscopy/ultras ound prostate-volume 37.7 cc without [...] learn intermittent catheterization May 10, 2014-ultrasound/biopsy of prostate-[facility] urology--- Volume 57 cc Creatinine Date [...] (no units) (more content not included)... Normal [facility] US CYSTO/TRUS (POC) GUKI USE ONLYon 2023 [facility] COVID-19 virus antigen assay Ordered By: Dr. Griffiths on 03-08-2023 SARS-CoV-2 (COVID-19) Ag IA.rapid Ql (Resp) [facility] Glucose Glucometer (BldC) [M ass/Vol]Ordered By: Dr. Griffiths on 03-08-2023 Glucose [Mass/Vol] 136 mg/dL 74-106 [facility] Comment on above: MANAGEMENT OF PATIEN T CARE PER NURSING PROTOCOL Absolute lymphocyte countOrd ered By: Dr. Morgan on 03-06-2023 Lymphocytes Auto (Unsp spec) [#/Vol] 1.59 10*3/uL 0.83-4.51 [facility] Basophil percentageOrdered B y: Dr. Morgan on 03-06-2023 Basophils/100 WBC (Bld) 0.3 % 0-1 [facility] Bilirubin [Mass/Vol] 0.50 mg/dL 0.20-1.00 [facility] Comment on above: For patients on eltr ombopag therapy, use of Dimension [place] TBIL is not recommended. Chloride [Moles/Vol] 113 mmol/L 98-107 [facility] Eosinophils/100 WBC (Bld) 0.8 % 0-5 [facility] Glucose [Mass/Vol] 128 mg/dL 74-106 [facility] Comment on above: Fasting Glucose resu lt greater than or equal to 126 mg/dL suggests DIABETES MELLITUS per A.D.A. criteria. Neutrophils (Bld) [#/Vol] 9.0 10*3/uL 2.0-7.7 [facility] Neutrophils/100 WBC (Bld) 75.5 % 47-70 [facility] Potassium [Moles/Vol] 3.6 mmol/L 3.5-5.1 [facility] Protein [Mass/Vol] 6.1 g/dL 6.4-8.2 [facility] Sodium [Moles/Vol] 140 mmol/L 136-145 [facility] WBC (Bld) [#/Vol] 12.0 10*3/uL 4.4-11.0 [facility] Basophil percentage 2.5 mg/dL 2.5-4.9 [facility] Blood erythrocytes count (nu mber/volume)Ordered By: Dr. Morgan on 03-06-2023 RBC (Bld) [#/Vol] 3.38 10*6/uL 4.6-6.2 [facility] Blood hemoglobin measurement (mass/volume)Ordered By: Dr. Morgan on 03-06-2023 Hemoglobin (Bld) [Mass/Vol] 10.6 g/dL 13.0-16.5 [facility] Blood lymphocytes/100 leukoc ytesOrdered By: Dr. Morgan on 03-06-2023 Lymphocytes/100 WBC (Bld) 13.3 % 19-41 [facility] Blood monocytes/100 leukocyt esOrdered By: Dr. Morgan on 03-06-2023 Monocytes/100 WBC (Bld) 9.7 % 0-10 [facility] Blood platelet mean volumeOr dered By: Dr. Morgan on 03-06-2023 Platelet mean volume (Bld) [Entitic vol] 11.1 fL 6.2-12.0 [facility] COVID-19 virus antigen assay Ordered By: Dr. Morgan on 03-06-2023 SARS-CoV-2 (COVID-19) Ag IA.rapid Ql (Resp) Not detected Not Detect [facility] Comment on above: Normal Reference Ran ge: Not DetectedMethod:(RT-PCR) real-time reverse transcriptase PCRLuMillicanx Staff Ranker Instrument*The Food and Drug Administration (FDA) has [...] MCV (RBC) [Entitic vol] 97.6 fL 80-94 [facility] Hematocrit Auto (Bld) [Volum e fraction]Ordered By: Dr. Morgan on 03-06-2023 Hematocrit (Bld) [Volume fraction] 33.0 % 40-54 [facility] Laboratory - Chemistry and C hemistry - challengeOrdered By: Dr. Morgan on 03-06-2023 ALP [Catalytic activity/Vol] 93 U/L 45-117 [facility] ALT [Catalytic activity/Vol] 31 U/L 16-61 [facility] CO2 [Moles/Vol] 27.0 mmol/L 21.0-32.0 [facility] Free T4 [Mass/Vol] 1.46 ng/dL 0.76-1.46 [facility] Globulin (S) [Mass/Vol] 3.5 g/dL 2.2-4.2 [facility] Urea nitrogen/Creatinine [Mass ratio] 19.7 mg/mg 10-20 [facility] Magnesium [Mass/Vol] 1.7 mg/dL 1.6-2.6 [facility] Laboratory - Hematology and Cell countsOrdered By: Dr. Morgan on 03-06-2023 Erythrocyte distribution width (RBC) [Entitic vol] 54.5 fL 35.1-43.9 [facility] Erythrocyte distribution width (RBC) [Ratio] 15.2 % 11.6-14.6 [facility] Immature granulocytes/100 WBC (Bld) 0.400 % 0.0-0.9 [facility] Comment on above: IG% - Immature Granu locytes (promyelocytes, myelocytes and metamyelocytes) > 1% indicates that a LEFT SHIFT is Present. MCH (RBC) [Entitic mass] 31.4 pg 27.0-32.0 [facility] Nucleated RBC/100 WBC (Bld) [Ratio] 0 % 0-5 [facility] MCHC Auto (RBC) [Mass/Vol]Or dered By: Dr. Morgan on 03-06-2023 MCHC (RBC) [Mass/Vol] 32.1 g/dL 32-36 [facility] No Panel InformationOrdered By: Dr. Morgan on 03-06-2023 Estimated Creatinine Clearance Calc 33.16 ml/min [facility] Estimated GFR (MDRD) Amer 59 mL/min >60 [facility] Comment on above: GFR Calc Estimated GFR (MDRD) Non-Af Amer 49 mL/min >60 [facility] Comment on above: Non- GFR Calc Thyroid Stimulating Hormone (TSH) 0.26 uIU/mL 0.358-3.74 [facility] Platelets bldOrdered By: Dr. Morgan on 03-06-2023 Platelets (Bld) [#/Vol] 226 10*3/uL 150-450 [facility] Serum or plasma albumin devante urement (mass/volume)Ordered By: Dr. Morgan on 03-06-2023 Albumin [Mass/Vol] 2.6 g/dL 3.2-5.0 [facility] Serum or plasma albumin/glob ulin mass ratioOrdered By: Dr. Morgan on 03-06-2023 Albumin/Globulin [Mass ratio] 0.7 {ratio} 0.9-2.4 [facility] Serum or plasma calcium devante urement (mass/volume)Ordered By: Dr. Morgan on 03-06-2023 Calcium [Mass/Vol] 8.6 mg/dL 8.5-10.1 [facility] Serum or plasma creatinine m easurement (mass/volume)Ordered By: Dr. Morgan on 03-06-2023 Creatinine [Mass/Vol] 1.47 mg/dL 0.70-1.30 [facility] Comment on above: The validity of the calculated GFR & GFRAA in patients over 70 years has not been determined. Clinical correlation is essential. Serum or plasma urea nitroge n measurement (mass/volume)Ordered By: Dr. Morgan on 03-06-2023 Urea nitrogen [Mass/Vol] 29 mg/dL 7-18 [facility] Serum procalcitonin measurem entOrdered By: Dr. Morgan on 03-06-2023 Procalcitonin [Mass/Vol] 0.09 ng/mL 0.00-0.09 [facility] Comment on above: A procalcitonin (PCT [...] smear with manual screening 65 U/L 15-37 [facility] Thin prep Papanicolaou smear with manual screening 0 5-15 [facility] Absolute lymphocyte countOrd ered By: ED PROVIDER on 03-05-2023 Lymphocytes Auto (Unsp spec) [#/Vol] 1.56 10*3/uL 0.83-4.51 [facility] Basophil percentageOrdered B y: ED PROVIDER on 03-05-2023 Basophil percentage 0-5 SEEN /hpf 0-5 [facility] Basophils/100 WBC (Bld) 0.3 % 0-1 [facility] Chloride [Moles/Vol] 111 mmol/L 98-107 [facility] Eosinophils/100 WBC (Bld) 1.4 % 0-5 [facility] Glucose [Mass/Vol] 111 mg/dL 74-106 [facility] Comment on above: Fasting Glucose resu lt from 100 to 125 mg/dL suggests IMPAIRED HOMEOSTASIS per A.D.A. criteria. Neutrophils (Bld) [#/Vol] 8.9 10*3/uL 2.0-7.7 [facility] Neutrophils/100 WBC (Bld) 75.4 % 47-70 [facility] Potassium [Moles/Vol] 4.5 mmol/L 3.5-5.1 [facility] Sodium [Moles/Vol] 140 mmol/L 136-145 [facility] WBC (Bld) [#/Vol] 11.8 10*3/uL 4.4-11.0 [facility] Bilirubin Test strip Ql (U)O rdered By: ED PROVIDER on 03-05-2023 Bilirubin Ql (U) Negative Negative [facility] Blood erythrocytes count (nu mber/volume)Ordered By: ED PROVIDER on 03-05-2023 RBC (Bld) [#/Vol] 3.68 10*6/uL 4.6-6.2 [facility] Blood hemoglobin measurement (mass/volume)Ordered By: ED PROVIDER on 03-05-2023 Hemoglobin (Bld) [Mass/Vol] 11.7 g/dL 13.0-16.5 [facility] Blood lymphocytes/100 leukoc ytesOrdered By: ED PROVIDER on 03-05-2023 Lymphocytes/100 WBC (Bld) 13.3 % 19-41 [facility] Blood monocytes/100 leukocyt esOrdered By: ED PROVIDER on 03-05-2023 Monocytes/100 WBC (Bld) 9.3 % 0-10 [facility] Blood platelet mean volumeOr dered By: ED PROVIDER on 03-05-2023 Platelet mean volume (Bld) [Entitic vol] 10.5 fL 6.2-12.0 [facility] Determination of erythrocyte mean corpuscular volume (MCV)Ordered By: ED PROVIDER on 03-05-2023 MCV (RBC) [Entitic vol] 98.9 fL 80-94 [facility] Hematocrit Auto (Bld) [Volum e fraction]Ordered By: ED PROVIDER on 03-05-2023 Hematocrit (Bld) [Volume fraction] 36.4 % 40-54 [facility] Ketones Test strip Ql (U)Ord ered By: ED PROVIDER on 03-05-2023 Ketones Ql (U) Negative Negative [facility] Laboratory - Chemistry and C hemistry - challengeOrdered By: ED PROVIDER on 03-05-2023 CO2 [Moles/Vol] 27.0 mmol/L 21.0-32.0 [facility] Urea nitrogen/Creatinine [Mass ratio] 20.7 mg/mg 10-20 [facility] Laboratory - Hematology and Cell countsOrdered By: ED PROVIDER on 03-05-2023 Erythrocyte distribution width (RBC) [Entitic vol] 55.6 fL 35.1-43.9 [facility] Erythrocyte distribution width (RBC) [Ratio] 15.4 % 11.6-14.6 [facility] Immature granulocytes/100 WBC (Bld) 0.300 % 0.0-0.9 [facility] Comment on above: IG% - Immature Granu locytes (promyelocytes, myelocytes and metamyelocytes) > 1% indicates that a LEFT SHIFT is Present. MCH (RBC) [Entitic mass] 31.8 pg 27.0-32.0 [facility] Nucleated RBC/100 WBC (Bld) [Ratio] 0 % 0-5 [facility] MCHC Auto (RBC) [Mass/Vol]Or dered By: ED PROVIDER on 03-05-2023 MCHC (RBC) [Mass/Vol] 32.1 g/dL 32-36 [facility] Mucus LM Ql (Urine sed)Order ed By: ED PROVIDER on 03-05-2023 Mucus Ql (Urine sed) 0 SEEN /hpf [facility] Nitrite Test strip Ql (U)Ord ered By: ED PROVIDER on 03-05-2023 Nitrite Ql (U) Negative Negative [facility] No Panel InformationOrdered By: Christiano Eastman on 03-05-2023 Ionized Calcium 4.9 mg/dL 4.5-5.6 [facility] Comment on above: Performed at: [facility] [address] [id number] Director: Hermann Godfrey PhD, Phone: [phone] No Panel InformationOrdered By: ED PROVIDER on 03-05-2023 Estimated GFR (MDRD) Amer 52 mL/min >60 [facility] Comment on above: GFR Calc Estimated GFR (MDRD) Non-Af Amer 43 mL/min >60 [facility] Comment on above: Non- GFR Calc Platelets bldOrdered By: ED PROVIDER on 03-05-2023 Platelets (Bld) [#/Vol] 225 10*3/uL 150-450 [facility] Protein Test strip Ql (U)Ord ered By: ED PROVIDER on 03-05-2023 Protein Ql (U) 100 mg/dl Negative [facility] Serum or plasma calcium devante urement (mass/volume)Ordered By: ED PROVIDER on 03-05-2023 Calcium [Mass/Vol] 9.2 mg/dL 8.5-10.1 [facility] Serum or plasma creatinine m easurement (mass/volume)Ordered By: ED PROVIDER on 03-05-2023 Creatinine [Mass/Vol] 1.64 mg/dL 0.70-1.30 [facility] Comment on above: The validity of the calculated GFR & GFRAA in patients over 70 years has not been determined. Clinical correlation is essential. Serum or plasma urea nitroge n measurement (mass/volume)Ordered By: ED PROVIDER on 03-05-2023 Urea nitrogen [Mass/Vol] 34 mg/dL 7-18 [facility] Squamous epithelial cells de tection in urine sediment by light microscopyOrdered By: ED PROVIDER on 03-05-2023 Epithelial cells.squamous LM Ql (Urine sed) 0 SEEN /hpf 0-5 [facility] Thin prep Papanicolaou smear with manual screeningOrdered By: ED PROVIDER on 03-05-2023 Thin prep Papanicolaou smear with manual screening 2 5-15 [facility] Urine blood detectionOrdered By: ED PROVIDER on 03-05-2023 RBC Ql (U) Negative Negative [facility] RBC Ql (U) 0 SEEN /hpf 0-5 [facility] Urine clarityOrdered By: ED PROVIDER on 03-05-2023 Clarity (U) Clear Clear [facility] Urine color determinationOrd ered By: ED PROVIDER on 03-05-2023 Color (U) Yellow Yellow [facility] Urine glucose detectionOrder ed By: ED PROVIDER on 03-05-2023 Glucose Ql (U) Normal mg/dl Normal [facility] Urine leukocyte esterase det ection by dipstickOrdered By: ED PROVIDER on 03-05-2023 Leukocyte esterase Test strip Ql (U) 25 /ul Negative [facility] Urine pHOrdered By: ED PROVI JE on 03-05-2023 pH (U) 8.0 [pH] 5.0 - 8.0 [facility] Urine sediment bacteria coun t by microscopy (number/high power field)Ordered By: ED PROVIDER on 03-05-2023 Bacteria LM.HPF (Urine sed) [#/Area] RARE /hpf None Seen [facility] Urine specific gravity measu rementOrdered By: ED PROVIDER on 03-05-2023 Specific gravity (U) [Rel density] 1.010 1.002-1.030 [facility] Urobilinogen Auto test strip Ql (U)Ordered By: ED PROVIDER on 03-05-2023 Urobilinogen Ql (U) 1 mg/dl Normal [facility] Calcium SerPl-mCncon 023 Calcium [Mass/Vol] 9.3 mg/dL Normal 8.5-10.2 [place] Comment on above: Order Comment: Speci men Type: BLOOD SPECIMEN Ordering Facility: [facility] Address: [address] [place] [address] Performed By: #### 1 [id number] #### [facility] [place] [id number] [address] [place] [address] [place] PTH-Intact SerPl-ncon 02-16 Parathyrin.intact [Mass/Vol] 11 pg/mL Low 15-65 [facility] Comment on above: Order Comment: Speci men Type: BLOOD SPECIMEN Ordering Facility: [facility] Address: [address] [place] [address] Performed By: #### 2 [id number] #### [facility] [place] [id number] [address] [place] [address] [place] ANES POSTPROC EVALon 023 ANES POSTPROC EVAL HNO ID: [id number] Author: Urban Martinez MD Service: Anesthesiology Author Type: Anesthesiologist Type: Anesthesia Postprocedure Evaluation Filed: 02/27/2023 1:18 PM Note Text: POST ANESTHESIA EVALUATION NOTE : 1940 Procedure Summary Date: 02/27/23 Room / Location: MM OR05 / MM OR Anesthesia Start: 726 Anesthesia Stop: 1008 Procedure: PARATHYROIDECTOMY (Thyroid) Diagnosis: Hyperparathyroidism (HCC) (Hyperparathyroidism (HCC) [E21.3]) Surgeons: Valerie Munoz MD Responsible Provider: Too Escoto MD [...] February 27, 2023 TIME: 1:18 PM CSN: [id number] [facility] ANES PRE-OPon 02-27-2023 ANES PRE-OP HNO ID: [id number] Author: Urban Martinez MD Service: Anesthesiology Author Type: Anesthesiologist Type: Anesthesia Preprocedure Evaluation Filed: 02/27/2023 7:05 AM Note Text: ANESTHESIOLOGY DAY OF SURGERY NOTE : 1940 Procedure Information Date/Time: 02/27/23729 Procedure: PARATHYROIDECTOMY (Thyroid) Location: MM OR05 / MM OR Surgeons: Valerie Munoz MD Estimated body mass index is 22.32 kg/m? as calculated from the following: Height as of 02/15/23: 160 cm (5' 3"). 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 Author Type: Physician Type: Brief Op Note Filed: 02/27/2023 9:47 AM Note Text: Brief Operative Note Patient Name: Michael Mullins LOG ID: [id number] Surgery/Procedure Date: 02/27/2023 Surgeon(s)/Procedurali st(s) and Property Specialist(s): Surgeon(s) and Role: * Valerie Munoz MD - Primary * Karyna Reeves [...] : pre pth Blood BLOOD INTRAOPERATIVE PTH Valerie Munoz MD 02/27/2023 8:29 AM 2 : post pth Blood BLOOD INTRAOPERATIVE PTH Valerie Munoz MD 02/27/2023 8:57 AM A : Left Lower Parathyroid, Totally Excised, Totally Submitted, 13 X 8 X 6 Tissue PARATHYROID GLAND LEFT SURGICAL PATHOLOGY Valerie Munoz MD 02/27/2023 8:42 AM B : Left Cervical Thymus, Rule Out Parathyroid Tissue THYMUS RESECTION SURGICAL PATHOLOGY Valerie Munoz MD 02/27/2023 8:43 AM C : right lower parathyroid neck soft tissue #1 r/o parathyroid tissue Tissue PARATHYROID GLAND RIGHT SURGICAL PATHOLOGY Valerie Munoz MD 02/27/2023 9:13 AM D : right lower parathyroid neck soft tissue #2 r/o parathyroid tissue Tissue PARATHYROID GLAND RIGHT SURGICAL PATHOLOGY Valerie Munoz MD 02/27/2023 9:13 AM E : right lower parathyroid neck soft tissue #3 Tissue PARATHYROID GLAND RIGHT SURGICAL PATHOLOGY Valerie Munoz MD 02/27/2023 9:14 AM Implants: * No implants in log * Drains: non Wound Classification: Class 1, operative wound clean, non-traumatic, with no inflammation encountered, no break in technique, gastrointestinal and genitor-urinary tracts not entered Pre-Op/Pre-Procedure Diagnosis: same Post-Op/Post-Procedure Diagnosis: same Post-Op Plan: Recover in PACU. SIGNATURE: Karyna Reeves jr, MD DATE: 02/27/23 TIME: 9:46 AM [facility] INTRAOPERATIVE PTHon 023 INTRAOPERATIVE PTH 35 pg/mL Normal [address] [place] [address] Comment on above: Order Comment: Speci men Type: BLOOD SPECIMEN Ordering Facility: [facility] Address: [address] [place] [address] Performed By: #### R IPTH #### [facility] CLIA [id number] [address] [place] [address] [place] INTRAOPERATIVE PTH 83 pg/mL High [address] [place] [address] Comment on above: Order Comment: Speci men Type: BLOOD SPECIMEN Ordering Facility: [facility] Address: [address] [place] [address] Performed By: #### R IPTH #### [facility] CLIA [id number] [address] [place] [address] [place] OPERATIVE NOon 02-27-2023 OPERATIVE NO HNO ID: [id number] Author: Valerie Munoz MD Service: Endocrine Surgery Author Type: Physician Type: Operative Report Filed: 02/27/2023 1:04 PM Note Text: [facility] - Operative Report MICHAEL MULLINS : 1940 AGE: 82. SEX: M PATIENT TYPE: A HOSP SVC: ENDOCRINE ALARCON LOCATION: [facility] ATTENDING PHYSICIAN: Valerie Munoz M.D. CSN NUMBER: [id number] DATE OF SURGERY/PROCEDURE: 02/27/2023 Incision/Procedure Start Time: 7:58 AM Incision Close/Procedure End Time: 9:44 AM PREOPERATIVE DIAGNOSIS: Primary hyperparathyroidism following previous anterior approach cervical spine surgery. POSTOPERATIVE DIAGNOSIS: Primary hyperparathyroidism following previous anterior approach cervical spine surgery. SURGEON: Valerie Munoz M.D. FLAME CUTTING MACHINE OPERATOR HELPER: Dr. Ruth Reeves. No qualified general surgery [...] subcuticular Prolene, placed (more content not included)... [facility] SURGICAL PATHOLOGYon 023 CASE REPORT [facility] Comment on above: Order Comment: Speci men Type: TISSUE SPECIMEN Ordering Facility: [facility] Address: [address] [place], [place] [id number] Result Comment: Surg ical Pathology Report Case: [id number] Authorizing Provider: Valerie Munoz MD Collected: 02/27/2023 08:42 AM Ordering Location: [facility] Surgery Received: 02/27/2023 08:52 AM Pathologist: Padmaja [...] tissue #3 Performed By: #### S #### [facility] CLIA [id number] [address] [place] [address] OF [facility] CLINICAL HISTORY Normal [facility] Comment on above: Order Comment: Speci men Type: TISSUE SPECIMEN Ordering Facility: [facility] Address: [address] [place] [address] Result Comment: Pre- op diagnosis: Hyperparathyroidism (HCC) [E21.3] Performed By: #### S #### [facility] CLIA [id number] [address] [place] [address] FINAL DIAGNOSIS [facility] Comment on above: Order Comment: Speci men Type: TISSUE SPECIMEN Ordering Facility: [facility] Address: [address] [place], [place] [id number] Result Comment: A. P arathyroid gland, left lower, parathyroidectomy: -Hypercellular parathyroid tissue. B. Thymus, left cervical, resection: -Atrophic thymus. -No parathyroid tissue identified. C. Parathyroid gland, right lower #1, biopsy: -Mildly hypercellular parathyroid tissue. D. Parathyroid gland, right lower #2, excision: -Hypercellular parathyroid tissue. E. "Parathyroid gland," right lower #3, excision: -Benign fibrofatty tissue. -No parathyroid tissue identified. Performed By: #### S #### [facility] CLIA [id number] OF [facility] FINAL PERFORMING LAB [facility] Comment on above: Order Comment: Speci men Type: TISSUE SPECIMEN Ordering Facility: [facility] Address: [address] [address] Result Comment: Diag nostic interpretation performed at [facility], [address] [address] CLIA# [id number] Injection Wax Molder: Yayo Alicea M.D. Performed By: #### S #### [facility] CLIA [id number] [address] [place] [address] [facility] Comment on above: Order Comment: Speci men Type: TISSUE SPECIMEN [facility] [facility] Address: [address] [address] Result Comment: A. P ARATHYROID GLAND LEFT Received fresh is a segment of reyes-red soft tissue measuring 13 x 8 x 6 mm and weighing 0.198 grams. Submitted in toto as FSA1. Gross examination performed at [facility], [address] , [place] [address] CLIA# [id number]. B. THYMUS RESECTION Received fresh is a segment of yellow-reyes adipose tissue measuring 22 x 20 x 4 mm. Submitted in toto as FSB1. Gross examination performed at [facility], [address], [place] [address] CLIA# [id number]. C. PARATHYROID GLAND RIGHT Received fresh is a segment of reyes-red soft tissue measuring 6 x 4 x 3 mm and weighing 0.027 grams. Submitted in toto as FSC1. Gross examination performed at [facility], [address], [place] [id number] CLIA# [id number]. D. PARATHYROID GLAND RIGHT Received fresh is a segment of reyes-red soft tissue measuring 7 x 5 x 4 mm and weighing 0.046 grams. Submitted in toto as FSD1. Gross examination performed at [facility], [address], [place] [address] CLIA# [id number]. E. PARATHYROID GLAND RIGHT Received in formalin labeled with "parathyroid gland right, right lower parathyroid neck soft tissue #3" is a single fragment of yellow-pink soft tissue measuring 0.5 x 0.4 x 0.2 cm in weighing less than 0.01 g. The specimen is totally submitted intact in cassette E1. TLA February 27, 2023 2:54 PM Gross examination performed at [facility], [address] [place] [address] Performed By: #### S #### [facility] CLIA [id number] [address] [place] [address] OF [facility] INTRAOPERATIVE DIAGNOSIS [facility] Comment on above: Order Comment: Speci men Type: TISSUE SPECIMEN Ordering Facility: [facility] Address: [address] [place] [address] Result Comment: A. P ARATHYROID GLAND LEFT FSA1 Left lower parathyroid gland: Parathyroid tissue (Dr. Effie Bonilla) Intraoperative diagnosis performed at [facility], [address], [place] [address] CLIA# [id number]. B. THYMUS RESECTION FSB1 Left cervical thymus: No parathyroid tissue identified (Dr. Effie Bonilla) Intraoperative diagnosis performed at [facility], [address], [place] [address] CLIA# [id number]. C. PARATHYROID GLAND RIGHT FSC1 Right lower parathyroid gland #1: Parathyroid tissue (Dr. Effie Bonilla) Intraoperative diagnosis performed at [facility], [address], [place] [address] CLIA# [id number]. D. PARATHYROID GLAND RIGHT FSD1 Right lower parathyroid gland #2: Hypercellular parathyroid tissue (Dr. Effie Bonilla) Intraoperative diagnosis performed at [facility], [address], [place] [id number] CLIA# [id number]. Performed By: #### S #### [facility] CLIA [id number] [address] [place] [address] [place] US THYROID/PARATHYROID (POC) ENDO USE ONLYon 02-27-2023 [facility] No Panel Informationon 12-27 LOWEST T-SCORE -3.0 [facility] US THYROID/PARATHYROID (POC) ENDO USE ONLYon 12-27-2022 [facility] UA DIP, URINE (POC)on 2022 BILIRUBIN UA (POCT) Negative Negative [facility] CLARITY UA (POCT) [facility] COLOR UA (POCT) Light yellow [facility] GLUCOSE UA (POCT) Negative Negative mg/dL [facility] HEMOGLOBIN/BLOOD UA (POCT) Negative Negative [facility] KETONE UA (POCT) Negative Negative mg/dL [facility] LEUKOCYTES UA (POCT) Trace Abnormal Negative [facility] NITRITE UA (POCT) Negative Negative [facility] PH UA (POCT) 5.5 4.5 - 8.0 [facility] Protein Ql (U) 30 mg/dL Abnormal Negative mg/dL [facility] SPECIFIC GRAVITY UA (POCT) 1.025 1.005 - 1.030 [facility] UROBILINOGEN UA (POCT) 0.2 E.U./dL Jocelyn l E.U./dL [facility] XR Chest PA and Lateralon IMPRESSION: Findings likely related to known evolving viral pneumonia. Element of fibrosis is not excluded. Unit Supervisor: PSCGena Transcribe Date/Time: Sep 26 2021 3:12P Dictated by : IGLESIA ERICKSON MD This examination was interpreted and the report reviewed and electronically signed by: IGLESIA ERICKSON MD on Sep 26 2021 3:13PM [facility] DIVISION OF RADIOLOGY * * *Final Report* [...] in the spine. DIVISION OF RADIOLOGY Provider, [facility] - 09/26/2021 * * *Final Report* * [...] pneumonia. Element of fibrosis is not excluded. Unit Supervisor: CHANA Transcribe Date/Time: Sep 26 2021 3:12P Dictated by : IGLESIA ERICKSON MD This examination was interpreted and the report reviewed and electronically signed by: IGLESIA ERICKSON MD on Sep 26 2021 3:13PM [facility] Radiology Study observation (narrative) Andrew Membreno XR Chest PA and LateralOrder ed By: Ccf Provider on 09-26-2021 [facility] ANES POSTPROC EVALon 020 ANES POSTPROC EVAL HNO ID: [id number] Author: eDdrick Mccrary Service: ? Author Type: Anesthesiologist Type: Anesthesia Postprocedure Evaluation Filed: 08/29/2020 1:29 PM Note Text: POST ANESTHESIA EVALUATION NOTE : 1940 Procedure Summary Date: 08/29/20 Room / Location: [place] / [place] Anesthesia Start: 739 Anesthesia Stop: 909 [...] August 29, 2020 TIME: 1:29 PM CSN: [id number] [facility] ANES PRE-OPon 08-29-2020 ANES PRE-OP HNO ID: [id number] Author: Dedrick cMcrary Service: ? Author Type: Anesthesiologist Type: Anesthesia Preprocedure Evaluation Filed: 08/29/2020 7:33 AM Note Text: ANESTHESIOLOGY DAY OF SURGERY NOTE : 1940 Procedure(s) (LRB): HERNIORRHAPHY INGUINAL ELECTIVE ADULT REDUCIBLE (Left) Surgeon(s): Nasir Villafuerte Estimated body mass index is 30 kg/m? as calculated from the following: Height as of 08/24/20: 157.5 cm (5' 2"). Weight as of 08/24/20: 74.4 kg (164 [...] no. Vitals Value Taken Time BP 188/84 08/29/20 0656 Pulse 54 08/29/20653 Resp 16 08/29/20653 Temp 36.2 ?C (97.2 ?F) 08/29/20 06 SpO2 97 % 08/29/20653 Facility-Administered Medications as [...] Surgery/Procedure. SIGNATURE: Dedrick Mccrary MD PATIENT NAME: iMchael Mullins DATE: August 29, 2020 TIME: 7:33 AM CSN: [id number] [facility] BRIEF OP NOTon 08-29-2020 BRIEF OP NOT HNO ID: [id number] Author: Nasir Villafuerte Service: General Surgery Author Type: Physician Type: Brief Op Note Filed: 08/29/2020 9:18 AM Note Text: BRIEF OPERATIVE NOTATION FOR SURGICAL PROCEDURE. Michael Mullins 1940 [id number] male LOG ID: [id number] Surgery/Procedure Date: 08/29/2020 Incision/Procedure Start Time: 7:57 AM Incision Close/Procedure End Time: 9:03 AM Surgeon(s)/Procedurali st(s) and Property Specialist(s): Surgeon(s) and Role: * Nasir Villafuerte - Primary Physician Property Specialist: oBnny Perez ([place]) REFERRING PHYSICIAN: Outpatient DEPT: [facility] PROVIDER: Natalia POS: [id number] ANESTHESIA: Monitored Anesthesia Care ASA CLASS: 2 - mild DIAGNOSIS: left inguinal hernia PROCEDURE: open left inguinal hernia repair with mesh - [id number] IVF: 1000 EBL: minimal Specimens: none ADDITIONAL [...] Clean Operative note dictated in the dictation system.[id number] Nasir Villafuerte MD [facility] HISTORY PHYSICALon 0 HISTORY PHYSICAL HNO ID: [id number] Author: Nasir Villafuerte Service: General Surgery Author [...] Repeat in - COLONOSCOP W/ OR W/O [facility] SPEC ? 02/17/2013 ? Colonoscopy - COLONOSCOP W/ OR W/O [facility] SPEC ? 06/03/2018 ? Colonoscopy - EGD ? 08/24/03 ? + hpylori - PAST SURGICAL HISTORY OF ? 2001 ? back surgery - PAST SURGICAL HISTORY OF ? 2000 ? back surgery - PAST SURGICAL HISTORY OF Right 2018 ? hemiarthroplasty of hip - REMOVAL OF TONSILS,<12 Y/O ? ? ? Tonsillectomy - REMOVAL SPLEEN, TOTAL ? 1984 ? Splenectomy ? ? ? CURRENT MEDICATIONS [...] last Mammogram screening? N/A ? Last Colonoscopy: 2017 ? Meño Yi ? PHYSICAL EXAMINATION: ? [...] patient was offered a surgery/procedure at a [facility]. The surgeon/proceduralist and patient have discussed in [...] left inguinal hernia repair with mesh - [id number] ? Anticipated Anesthetic: MAC with local ? Patient weight: Blood pressure 120/80, pulse 79, temperature 36.1 ?C (96.9 ?F), temperature source Temporal Artery, weight 75.3 kg (166 lb), SpO2 96 %. BMI: Body mass index is 29.6 kg/m?. ? Planned antibiotic: Ancef 2gm IVPB dean of education to OR ? SCDs needed - Yes Return to Clinic: The patient is instructed to follow-up with me 1 week post operatively. ? Nasir Villafuerte MD [facility] OPERATIVE NOon 08-29-2020 OPERATIVE NO HNO ID: [id number] Author: Nasir Villafuerte Service: General Surgery Author Type: Physician Type: Operative Report Filed: 08/29/2020 6:42 PM Note Text: [facility] - Operative Report MICHAEL MULLINS : 1940 AGE: 80. SEX: M PATIENT TYPE: A [facility] LOCATION: [facility] ATTENDING PHYSICIAN: Nasir Villafuerte M.D. CSN NUMBER: [id number] DATE OF SURGERY/PROCEDURE: 08/29/2020 INCISION/PROCEDURE START TIME: 7:57 a.m. INCISION CLOSE/PROCEDURE END TIME: 9:03 a.m. PREOPERATIVE DIAGNOSIS: Left inguinal hernia. POSTOPERATIVE DIAGNOSIS: Direct left inguinal hernia with very weak floor. SURGEON: Nasir Villafuerte M.D. FLAME CUTTING MACHINE OPERATOR HELPER: LISA Peralta SURGERY/PROCEDURE: Open left inguinal hernia repair with mesh, using only the onlay component of a Covidien medium mesh plug, reference #[id number], lot #[id number], expires 10/17/2024. ANESTHESIA: Monitored anesthesia care. LOG ID: [id number] ANESTHESIOLOGIST: Dedrick Mccrary. ASA: 2. INTRAVENOUS FLUIDS: [...] level of the pubic tubercle with a [place] drain, brought up in the operative field. [...] or surgeons to assist. Nasir Villafuerte M.D. RG:[id number] /[id number] [facility] NURSING PROGon 08-25-2020 NURSING PROG HNO ID: [id number] Author: Ashlee ZarcoRn) TRACY Mckeon Service: ? Author Type: Registered [...] Mckeon RN August 25, 2020 12:31 PM [facility] HOSPon 08-02-2020 HOSP Patient:William Mullins samir Gena MRN: Height:5' 2"(1.575 m) Weight:164 lb (74.39 kg) Outpatient Medications [...] the following basenames: K,HCT Progress Notes (PT [facility]): Mode Oshea PT 08/17/2020 3:15 PM [...] after last therapy. He reports going to [employer] game last night and climbed bleachers with [...] assist to moderate assist as needed. Billing: [facility]: Therapeutic Exercise (20024): 1:1 time: 28 minutes (2 units: 23-37 mins) Neuromuscular Re-education (26351): 1:1 time:15 minutes (1 unit: 8-22 mins) Total time / Length of visit: 43 minutes Effie Calvillo PT-Almas Oshea PT Previous Version Progress Notes (PT [facility]): Mode Oshea PT 08/15/2020 3:21 PM [...] gait belt and contact guard assist. Billing: [facility]: Therapeutic Exercise (54226): 1:1 time: 30 minutes (2 units: 23-37 mins) Neuromuscular Re-education (50272): 1:1 time:15 minutes (1 unit: 8-22 mins) Total time / Length of visit: 45 minutes Effie Calvillo, PT-Almas Oshea PT Previous Version Normal [facility] No Panel Information [facility] Vital Signs Date Time Vital Sign Value Performing Clinician Facility 05-06-2025 20:03-0400 Body temperature 97.3 [degF] Dr. Baron Espinoza MD Work Phone: [facility] 05-06-2025 20:03-0400 Diastolic blood pressure 63 mm[Hg] Dr. Baron Espinoza MD Work Phone: [facility] 05-06-2025 20:03-0400 Heart rate 98 /min Dr. Baron Espinoza MD Work Phone: [facility] 05-06-2025 20:03-0400 Inhaled oxygen flow rate 2 L/min Dr. Baron Espinoza MD Work Phone: [facility] 05-06-2025 20:03-0400 Respiratory rate 18 /min Dr. Baron Espinoza MD Work Phone: [facility] 05-06-2025 20:03-0400 SaO2% (BldA) [Mass fraction] 96 % Dr. Baron Espinoza MD Work Phone: 7(332)617-233300 [place] [address] 05-06-2025 20:03-0400 Systolic blood pressure 145 mm[Hg] Dr. Baron Espinoza MD Work Phone: 9(290)726-375279 [place] [address] 05-06-2025 11:12-0400 Inhaled oxygen concentration 2 % Dr. Baron Espinoza MD Work Phone: 4(214)246-364379 [place] [address] 05-06-2025 03:58-0400 Body mass index (BMI) [Ratio] 22.6 kg/m2 Dr. Baron Espinoza MD Work Phone: 3(872)711-203879 [place] [address] 05-06-2025 03:58-0400 Body weight 65.[address] Baron Espinoza MD Work Phone: 1(564)265-123879 [place] [address] 05-05-2025 14:55-0400 Body height [address] Baron Espinoza MD Work Phone: 7(572)401-718479 [place] [address] 04-23-2025 23:39-0400 Diastolic blood pressure 41 mm[Hg] Dr. Baron Espinoza MD Work Phone: 7(608)355-674379 [place] [address] 04-23-2025 23:39-0400 Heart rate 54 /min Dr. Baron Espinoza MD Work Phone: 9(619)331-638079 [place] [address] 04-23-2025 23:39-0400 Inhaled oxygen flow rate 3 L/min Dr. Baron Espinoza MD Work Phone: 0(353)059-211279 [place] [address] 04-23-2025 23:39-0400 Respiratory rate 14 /min Dr. Baron Espinoza MD Work Phone: 9(005)228-980179 [place] [address] 04-23-2025 23:39-0400 SaO2% (BldA) [Mass fraction] 97 % Dr. Baron Espinoza MD Work Phone: 3(935)220-100679 [place] [address] 04-23-2025 23:39-0400 Systolic blood pressure 75 mm[Hg] Dr. Baron Espinoza MD Work Phone: 6(383)523-213079 [place] [address] 04-23-2025 22:33-0400 Body temperature 97.9 [degF] Dr. Baron Espinoza MD Work Phone: 5(236)288-710079 [place] [address] 04-23-2025 20:24-0400 Body height 170.[address] Baron Espinoza MD Work Phone: [facility] 04-23-2025 20:24-0400 Body mass index (BMI) [Ratio] 24.9 kg/m2 Dr. Baron Espinoza MD Work Phone: [facility] 04-23-2025 20:24-0400 Body weight 72.[address] Baron Espinoza MD Work Phone: [facility] 11-13-2024 09:51-0500 Body mass index (BMI) [Ratio] 24.72 kg/m2 Baron Espinoza MD Work Phone: [facility] 11-13-2024 09:51-0500 Body weight 65.32 kg Baron Espinoza MD Work Phone: [facility] 11-13-2024 09:51-0500 Diastolic blood pressure 82 mm[Hg] Baron Espinoza MD Work Phone: [facility] 11-13-2024 09:51-0500 Heart rate 62 /min Baron Espinoza MD Work Phone: [facility] 11-13-2024 09:51-0500 Respiratory rate 16 /min Baron Espinoza MD Work Phone: [facility] 11-13-2024 09:51-0500 SaO2% (BldA) [Mass fraction] 97 % Baron Espinoza MD Work Phone: [facility] 11-13-2024 09:51-0500 Systolic blood pressure 134 mm[Hg] Baron Espinoza MD Work Phone: [facility] 10-02-2024 10:28-0500 Body height 162.6 cm Dung Gaona MD Work Phone: [facility] 10-02-2024 10:28-0500 Heart rate 73 /min Dung Gaona MD Work Phone: [facility] 10-02-2024 10:28-0500 SaO2% (BldA) [Mass fraction] 94 % Dung Gaona MD Work Phone: [place] [address]-03-2023 11:11-0400 Body height 162.6 cm Baron Espinoza MD Work Phone: [facility] 05-20-2023 11:11-0400 Body weight 60.33 kg Baron Espinoza MD Work Phone: [facility] 05-20-2023 11:11-0400 Diastolic blood pressure 48 mm[Hg] Baron Espinoza MD Work Phone: [facility] 05-20-2023 11:11-0400 Heart rate 60 /min Baron Espinoza MD Work Phone: [facility] 05-20-2023 11:11-0400 SaO2% (BldA) [Mass fraction] 96 % Baron Espinoza MD Work Phone: [facility] 05-20-2023 11:11-0400 Systolic blood pressure 110 mm[Hg] Baron Espinoza MD Work Phone: [facility] 05-10-2023 08:10-0400 Body height 162.6 cm Pst 1 [facility] 05-10-2023 08:10-0400 Body temperature 97.7 [degF] Pst 1 [facility] 05-10-2023 08:10-0400 Body weight 61.24 kg Pst 1 [facility] 05-10-2023 08:10-0400 Diastolic blood pressure 68 mm[Hg] Pst 1 [facility] 05-10-2023 08:10-0400 Heart rate 60 /min Pst 1 [facility] 05-10-2023 08:10-0400 Respiratory rate 18 /min Pst 1 [facility] 05-10-2023 08:10-0400 SaO2% (BldA) [Mass fraction] 98 % Pst 1 [facility] 05-10-2023 08:10-0400 Systolic blood pressure 135 mm[Hg] Pst 1 [facility] 05-03-2023 10:40-0400 Body height 162.6 cm Dung Gaona MD Work Phone: [facility] 05-03-2023 10:40-0400 Heart rate 63 /min Dung Gaona MD Work Phone: [facility] 05-03-2023 10:40-0400 SaO2% (BldA) [Mass fraction] 97 % Dung Goana MD Work Phone: [facility] 05-01-2023 14:41-0400 Body temperature 98.01 [degF] Jennifer Haljexiomara-Lynch PT Work Phone: [facility] 05-01-2023 14:41-0400 Diastolic blood pressure 64 mm[Hg] Jennifer Halderman-Lynch PT Work Phone: [facility] 05-01-2023 14:41-0400 Heart rate 60 /min Jennifer Halderman-Lynch PT Work Phone: [facility] 05-01-2023 14:41-0400 Respiratory rate 18 /min Jennifer Haljexiomara-Lynch PT Work Phone: [facility] 05-01-2023 14:41-0400 SaO2% (BldA) [Mass fraction] 96 % Jennifer Halderman-Lynch PT Work Phone: [facility] 05-01-2023 14:41-0400 Systolic blood pressure 132 mm[Hg] Jennifer Ramderman-Lynch PT Work Phone: [facility] 04-25-2023 11:21-0400 Body temperature 97.59 [degF] Jade Swathi SHIP JOINER Work Phone: [facility] 04-25-2023 11:21-0400 Diastolic blood pressure 76 mm[Hg] Jade Swathi SHIP JOINER Work Phone: [facility] 04-25-2023 11:21-0400 Heart rate 62 /min Jade Swathi SHIP JOINER Work Phone: [facility] 04-25-2023 11:21-0400 Respiratory rate 18 /min Jade Swathi SHIP JOINER Work Phone: [facility] 04-25-2023 11:21-0400 SaO2% (BldA) [Mass fraction] 96 % Jade Swathi SHIP JOINER Work Phone: [facility] 04-25-2023 11:21-0400 Systolic blood pressure 118 mm[Hg] Jade Swathi SHIP JOINER Work Phone: [facility] 04-19-2023 16:34-0400 Diastolic blood pressure 70 mm[Hg] Cori Chowdhury PT Work Phone: [facility] 04-19-2023 16:34-0400 Heart rate 70 /min Cori Chowdhury PT Work Phone: [facility] 04-19-2023 16:34-0400 Respiratory rate 16 /min Cori Chowdhury PT Work Phone: [facility] 04-19-2023 16:34-0400 SaO2% (BldA) [Mass fraction] 96 % Cori Chowdhury PT Work Phone: [facility] 04-19-2023 16:34-0400 Systolic blood pressure 110 mm[Hg] Cori Chowdhury PT Work Phone: [facility] 04-19-2023 16:18-0400 Body temperature 98.2 [degF] Cori Chowdhury PT Work Phone: [facility] 04-17-2023 12:19-0400 Body temperature 98.1 [degF] Jade Swathi SHIP JOINER Work Phone: [facility] 04-17-2023 12:19-0400 Diastolic blood pressure 78 mm[Hg] Jade Swathi SHIP JOINER Work Phone: [facility] 04-17-2023 12:19-0400 Heart rate 65 /min Jade Swathi SHIP JOINER Work Phone: [facility] 04-17-2023 12:19-0400 Respiratory rate 18 /min Jade Swathi SHIP JOINER Work Phone: [facility] 04-17-2023 12:19-0400 SaO2% (BldA) [Mass fraction] 95 % Jade Swathi SHIP JOINER Work Phone: [facility] 04-17-2023 12:19-0400 Systolic blood pressure 118 mm[Hg] Jade Swathi SHIP JOINER Work Phone: [facility] 2023 14:24-0400 Diastolic blood pressure 81 mm[Hg] Dung Gaona MD Work Phone: [facility] 2023 14:24-0400 Heart rate 65 /min Dung Gaona MD Work Phone: [facility] 2023 14:24-0400 SaO2% (BldA) [Mass fraction] 97 % Dung Gaona MD Work Phone: [facility] 2023 14:24-0400 Systolic blood pressure 140 mm[Hg] Dung Gaona MD Work Phone: [facility] 04-03-2023 11:33-0400 Diastolic blood pressure 68 mm[Hg] Jose Solomon SHIP JOINER Work Phone: [facility] 04-03-2023 11:33-0400 Heart rate 63 /min Prinston Solomon SHIP JOINER Work Phone: [facility] 04-03-2023 11:33-0400 Respiratory rate 18 /min Prinston Solomon SHIP JOINER Work Phone: [facility] 04-03-2023 11:33-0400 SaO2% (BldA) [Mass fraction] 98 % Prinkarissa Solomon SHIP JOINER Work Phone: [facility] 04-03-2023 11:33-0400 Systolic blood pressure 136 mm[Hg] Prinkarissa Solomon SHIP JOINER Work Phone: [facility] 04-03-2023 11:03-0400 Body temperature 98.6 [degF] Prinkarissa Solomon SHIP JOINER Work Phone: [facility] 03-29-2023 14:19-0400 Body temperature 98.29 [degF] Monae Bobo RN Work Phone: [facility] 03-29-2023 14:19-0400 Diastolic blood pressure 64 mm[Hg] Monae Bobo RN Work Phone: [facility] 05-12-2023 14:19-0400 Heart rate 68 /min Monae Bobo RN Work Phone: [facility] 03-29-2023 14:19-0400 Respiratory rate 16 /min Monae Bobo RN Work Phone: [facility] 03-29-2023 14:19-0400 SaO2% (BldA) [Mass fraction] 96 % Jade Swathi SHIP JOINER Work Phone: [facility] 03-29-2023 14:19-0400 Systolic blood pressure 126 mm[Hg] Jade Swathi SHIP JOINER Work Phone: [facility] 03-29-2023 13:00-0400 Body temperature 98.1 [degF] Jade Swathi SHIP JOINER Work Phone: [facility] 03-29-2023 13:00-0400 Diastolic blood pressure 62 mm[Hg] Jade Swathi SHIP JOINER Work Phone: [facility] 03-29-2023 13:00-0400 Heart rate 64 /min Jade Swathi SHIP JOINER Work Phone: [facility] 03-29-2023 13:00-0400 Respiratory rate 18 /min Jade Swathi SHIP JOINER Work Phone: [facility] 03-27-2023 12:51-0400 Body temperature 97.81 [degF] Jade Swathi SHIP JOINER Work Phone: [facility] 03-27-2023 12:51-0400 Diastolic blood pressure 62 mm[Hg] Jade Swathi SHIP JOINER Work Phone: [facility] 03-27-2023 12:51-0400 Heart rate 65 /min Jade Swathi SHIP JOINER Work Phone: [facility] 03-27-2023 12:51-0400 Respiratory rate 18 /min Jade Swathi SHIP JOINER Work Phone: [facility] 03-27-2023 12:51-0400 SaO2% (BldA) [Mass fraction] 97 % Jade Swathi SHIP JOINER Work Phone: [facility] 03-27-2023 12:51-0400 Systolic blood pressure 120 mm[Hg] Jade Echevarria SHIP JOINER Work Phone: [facility] 03-25-2023 08:51-0400 Body height 162.6 cm Baron Espinoza MD Work Phone: [facility] 03-25-2023 08:51-0400 Body weight 56.97 kg Baron Espinoza MD Work Phone: [facility] 03-25-2023 08:51-0400 Diastolic blood pressure 70 mm[Hg] Baron Espinoza MD Work Phone: [facility] 03-25-2023 08:51-0400 Heart rate 60 /min Baron Espinoza MD Work Phone: [facility] 03-25-2023 08:51-0400 SaO2% (BldA) [Mass fraction] 98 % Baron Espinoza MD Work Phone: [facility] 03-25-2023 08:51-0400 Systolic blood pressure 120 mm[Hg] Barno Espinoza MD Work Phone: [facility] [facility] 03-24-2023 10:18-0400 Body temperature 97.39 [degF] Jennifer Clark PT Work Phone: [facility] 03-24-2023 10:18-0400 Body weight 56.88 kg Jennifer Clark PT Work Phone: [facility] 03-24-2023 10:18-0400 Diastolic blood pressure 66 mm[Hg] Jennifer Clark PT Work Phone: [facility] 03-24-2023 10:18-0400 Heart rate 55 /min Jennifer Clark PT Work Phone: [facility] 03-24-2023 10:18-0400 Respiratory rate 16 /min Jennifer Clark PT Work Phone: [facility] 03-24-2023 10:18-0400 SaO2% (BldA) [Mass fraction] 97 % Jennifer Clark PT Work Phone: [facility] 03-24-2023 10:18-0400 Systolic blood pressure 148 mm[Hg] Jennifer Amber PT Work Phone: [facility] 03-22-2023 08:10-0400 Body height 162.6 cm Lorenzo Carballo PA-C Work Phone: [facility] 03-22-2023 08:10-0400 Body temperature 97.9 [degF] Lorenzo Carballo PA-C Work Phone: [facility] 03-22-2023 08:10-0400 Body weight 60.33 kg Lorenzo Carballo PA-C Work Phone: [facility] 03-22-2023 08:10-0400 Diastolic blood pressure 60 mm[Hg] Olrenzo Carballo PA-C Work Phone: [facility] 03-22-2023 08:10-0400 Heart rate 66 /min Lorenzo Carballo PA-C Work Phone: [facility] 03-22-2023 08:10-0400 Respiratory rate 14 /min Lorenzo Carballo PA-C Work Phone: [facility] 03-22-2023 08:10-0400 SaO2% (BldA) [Mass fraction] 98 % Lorenzo Carballo PA-C Work Phone: [facility] 03-22-2023 08:10-0400 Systolic blood pressure 118 mm[Hg] Lorenzo Carballo PA-C Work Phone: [facility] 03-19-2023 13:16-0400 Body temperature 98.2 [degF] María Mcdonnell RN Work Phone: [facility] 03-19-2023 13:16-0400 Diastolic blood pressure 60 mm[Hg] María Mcdonnell RN Work Phone: [facility] 03-19-2023 13:16-0400 Heart rate 61 /min María Mcdonnell RN Work Phone: [facility] 03-19-2023 13:16-0400 Respiratory rate 16 /min María Mcdonnell RN Work Phone: [facility] 03-19-2023 13:16-0400 SaO2% (BldA) [Mass fraction] 96 % María Mcdonnell RN Work Phone: [facility] 03-19-2023 13:16-0400 Systolic blood pressure 112 mm[Hg] María Mcdonnell RN Work Phone: [facility] 03-08-2023 20:45-0400 Body temperature 98.6 [degF] Dr. Baron Espinoza Work Phone: [facility] 03-08-2023 20:45-0400 Diastolic blood pressure 79 mm[Hg] Dr. Baron Espinoza Work Phone: [phone] [place] [address] 03-08-2023 20:45-0400 Heart rate 62 /min Dr. Baron Espinoza Work Phone: [facility] 03-08-2023 20:45-0400 Respiratory rate 17 /min Dr. Baron Espinoza Work Phone: [facility] 03-08-2023 20:45-0400 SaO2% (BldA) [Mass fraction] 97 % Dr. Baron Espinoza Work Phone: [facility] 03-08-2023 20:45-0400 Systolic blood pressure 155 mm[Hg] Dr. Baron Espinoza Work Phone: [facility] 03-08-2023 03:21-0400 Body mass index (BMI) [Ratio] 22.7 kg/m2 Dr. Baron Espinoza Work Phone: [facility] 03-08-2023 03:21-0400 Body weight 60.[address] Baron Espinoza Work Phone: [facility] 03-06-2023 01:18-0400 Body height 162.[address] Baron Espinoza Work Phone: [facility] 03-06-2023 00:25-0400 Body temperature 98.9 [degF] [facility] 03-06-2023 00:25-0400 Diastolic blood pressure 78 mm[Hg] [facility] 03-06-2023 00:25-0400 Heart rate 75 /min [facility] 03-06-2023 00:25-0400 Respiratory rate 15 /min [facility] 03-06-2023 00:25-0400 SaO2% (BldA) [Mass fraction] 95 % [facility] 03-06-2023 00:25-0400 Systolic blood pressure 158 mm[Hg] [facility] 03-05-2023 21:32-0400 Body mass index (BMI) [Ratio] 20.7 kg/m2 [facility] 03-05-2023 21:32-0400 Body weight 60.1 kg [facility] 03-05-2023 19:16-0400 Body height 170.18 cm [facility] 12-27-2022 10:03-0500 Body height 157.5 cm Valerie Munoz MD Work Phone: [facility] 12-27-2022 10:03-0500 Body weight 59.42 kg Valerie Munoz MD Work Phone: [facility] 12-27-2022 10:03-0500 Diastolic blood pressure 70 mm[Hg] Valerie Munoz MD Work Phone: [facility] 12-27-2022 10:03-0500 Heart rate 63 /min Valerie Munoz MD Work Phone: [facility] 12-27-2022 10:03-0500 Systolic blood pressure 143 mm[Hg] Valerie Munoz MD Work Phone: [facility] 12-13-2022 13:17-0500 Body weight 58.06 kg Shanthi Rangel MD Work Phone: [facility] 12-13-2022 13:17-0500 Diastolic blood pressure 74 mm[Hg] Shanthi Rangel MD Work Phone: [facility] 12-13-2022 13:17-0500 Heart rate 61 /min Shanthi Rangel MD Work Phone: [facility] 12-13-2022 13:17-0500 Systolic blood pressure 134 mm[Hg] Shanthi Rangel MD Work Phone: [facility] 11-26-2022 14:11-0500 Body weight 60.6 kg Ian Holly MD Work Phone: [facility] 11-26-2022 14:11-0500 Diastolic blood pressure 64 mm[Hg] Ian Holly MD Work Phone: [facility] 11-26-2022 14:11-0500 Heart rate 64 /min Ian Holly MD Work Phone: [facility] 11-26-2022 14:11-0500 SaO2% (BldA) [Mass fraction] 97 % Ian Holly MD Work Phone: [facility] 11-26-2022 14:11-0500 Systolic blood pressure 124 mm[Hg] Ian Holly MD Work Phone: [facility] 11-23-2022 09:01-0500 Body height 157.5 cm Lorenzo Carballo PA-C Work Phone: [facility] 11-23-2022 09:01-0500 Body temperature 97.81 [degF] Lorenzo Carballo PA-C Work Phone: [facility] 11-23-2022 09:01-0500 Body weight 58.97 kg Lorenzo Carballo PA-C Work Phone: [facility] 11-23-2022 09:01-0500 Diastolic blood pressure 70 mm[Hg] Lorenzo Carballo PA-C Work Phone: [facility] 11-23-2022 09:01-0500 Heart rate 82 /min Lorenzo Carballo PA-C Work Phone: [facility] 11-23-2022 09:01-0500 Respiratory rate 16 /min Lorenzo Carballo PA-C Work Phone: [facility] 11-23-2022 09:01-0500 SaO2% (BldA) [Mass fraction] 93 % Lorenzo Carballo PA-C Work Phone: [facility] 11-23-2022 09:01-0500 Systolic blood pressure 128 mm[Hg] Lorenzo Carballo PA-C Work Phone: [facility] 06-05-2022 15:49-0400 Body weight 61.15 kg Shanthi Rangel MD Work Phone: [facility] 06-05-2022 15:49-0400 Diastolic blood pressure 66 mm[Hg] Shanthi Rangel MD Work Phone: [facility] 06-05-2022 15:49-0400 Heart rate 62 /min Shanthi Rangel MD Work Phone: [facility] 06-05-2022 15:49-0400 SaO2% (BldA) [Mass fraction] 95 % Shanthi Rangel MD Work Phone: [facility] 06-05-2022 15:49-0400 Systolic blood pressure 151 mm[Hg] Shanthi Rangel MD Work Phone: [facility] 05-07-2022 10:34-0400 Body weight 60.33 kg Baron Espinoza MD Work Phone: [facility] 05-07-2022 10:34-0400 Diastolic blood pressure 72 mm[Hg] Baron Espinoza MD Work Phone: [facility] 05-07-2022 10:34-0400 Heart rate 56 /min Baron Espinoza MD Work Phone: [facility] 05-07-2022 10:34-0400 Systolic blood pressure 138 mm[Hg] Baron Espinoza MD Work Phone: [facility] Encounters Encounter Date Encounter Type Care Provider Facility Start: 05-06-2025 Non-patient / Non-visit Dr. Alana Jung [facility] Work Phone: Start: 05-05-2025 Non-patient / Non-visit Dr. Alana Jung [facility] Work Phone: Start: 05-04-2025 Non-patient / Non-visit Dr. Nikki Rao [facility] Work Phone: Start: 05-03-2025 Non-patient / Non-visit Dr. Nikki Rao [facility] Work Phone: Start: 05-02-2025 Non-patient / Non-visit Dr. Nikki Rao [facility] Work Phone: Start: 05-01-2025 Non-patient / Non-visit Dr. Nikki Rao [facility] Work Phone: Start: 04-30-2025 Non-patient / Non-visit Dr. Nikki Rao [facility] Work Phone: Start: 04-29-2025 Non-patient / Non-visit Dr. Nikki Rao [facility] Work Phone: Start: 04-29-2025 End: 04-29-2025 [facility] Start: 04-29-2025 End: 04-29-2025 Non-patient / Non-visit Dr. Kolby Cr MD -[facility] Work Phone: Start: 04-28-2025 Non-patient / Non-visit Dr. Nikki Rao [facility] Work Phone: Start: 04-27-2025 Non-patient / Non-visit Dr. Nikki Rao [facility] Work Phone: Start: 04-26-2025 Non-patient / Non-visit Dr. Nikki Rao [facility] Work Phone: Start: 04-25-2025 Non-patient / Non-visit Dr. Nikki Rao [facility] Work Phone: Start: 04-24-2025 [facility] Start: 04-24-2025 Non-patient / Non-visit Dr. Nikki Rao DO -[facility] Work Phone: Start: 04-23-2025 ambulatory Vern Interiano y:[facility] Start: 04-23-2025 End: 05-06-2025 Evaluation and management of inpatient Dr. Paty Morgan MD -Medical Surgical 3 Work Phone: Start: 04-09-2025 End: 04-09-2025 ambulatory LORI GOODMAN Facility:[facility] Start: 03-08-2025 End: 03-08-2025 Refill Dung Gaona MD Work Phone: [facility] Comment on above: Refill Request Start: 01-29-2025 End: 01-29-2025 Refill Baron Espinoza MD Work Phone: [facility] Comment on above: Refill Request Start: 01-22-2025 End: 01-25-2025 Refill Baron Espinoza MD Work Phone: [facility] Comment on above: Refill Request Start: 01-08-2025 End: 01-08-2025 ambulatory LORI GOODMAN Facility:[facility] Start: 01-08-2025 End: 01-08-2025 Patient encounter procedure Lori Goodman Work Phone: Podiatry Comment on above: Onychomycosis (Prima ry Dx); Pain in toe of left foot; Pain in toe of right foot; Diabetic polyneuropathy associated with type 2 diabetes mellitus (HCC); Hammer toe of left foot; Callus of foot Start: 11-16-2024 End: 11-17-2024 Telephone encounter Baron Espinoza MD Work Phone: [facility] Comment on above: Results Start: 11-13-2024 End: 11-13-2024 ambulatory BARON ESPINOZA Facility:[facility] Start: 11-13-2024 End: 11-13-2024 Patient encounter procedure Baron Espinoza MD Work Phone: [facility] Comment on above: Primary hypertension (Primary Dx); Encounter for immunization; Atherosclerosis of [place] coronary artery of [place] heart without angina pectoris; Hyperlipidemia LDL goal [...] unspecified site Start: 10-14-2024 End: 10-14-2024 Refill Baron Espinoza MD Work Phone: 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 Start: 09-28-2024 End: 09-28-2024 ambulatory LORIGAIL GOODMAN Facility:[facility] Start: 09-28-2024 End: 09-28-2024 Patient encounter procedure Lori Goodman Work Phone: Podiatry Comment on above: Onychomycosis (Prima ry Dx); Pain in toe of left foot; Pain in toe of right foot; Diabetic polyneuropathy associated with type 2 diabetes mellitus (HCC); Hammer toe of left foot Start: 06-30-2024 Refill Baron Espinoza MD Work Phone: [facility] Comment on above: Refill Request requesting medicatio n that is Start: 05-26-2024 End: 05-27-2024 [facility] Start: 05-26-2024 End: 05-26-2024 Patient encounter procedure Lori Goodman Work Phone: Podiatry Comment on above: Onychomycosis (Prima ry Dx); Pain in toe of left foot; Pain in toe of right foot; Callus of foot; Diabetic polyneuropathy associated with type 2 diabetes mellitus (HCC); Hammer toe of left foot Start: 05-12-2024 End: 05-12-2024 ambulatory Baron Espinoza Facility:[facility] Start: 03-24-2024 Refill Baron Espinoza MD Work Phone: [facility] Comment on above: Refill Request requesting medicatio n not on list Start: 03-10-2024 Refill Lorenzo Carballo PA-C Work Phone: Urology Comment on above: Refill Request Start: 02-20-2024 End: 02-20-2024 Patient encounter procedure Lori Joaquinloan Work Phone: Podiatry Comment on above: Onychomycosis (Prima ry Dx); Pain in toe of left foot; Pain in toe of right foot; Xerosis cutis; Callus of foot; Hammer toe of left foot; Diabetic polyneuropathy associated with type 2 diabetes mellitus (HCC) Start: 01-20-2024 Telephone encounter Baron Espinoza MD Work Phone: [facility] Comment on above: Results Start: 01-01-2024 End: 01-01-2024 Patient encounter procedure Dmitry Painting MD Work Phone: Ophthalmology Comment on above: Left posterior capsu lar opacification (Primary Dx); Pseudophakia; Amblyopia, right eye; Hypertensive retinopathy, bilateral Start: 10-07-2023 End: 10-07-2023 ambulatory DUNG STACEY [place]STNUTRIDGE Facility: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) Start: 05-27-2023 End: 05-27-2023 Nursing evaluation of patient and report Nurse Joan Alvarez Work Phone: [facility] Comment on above: 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) Start: 05-20-2023 End: 05-20-2023 Patient encounter procedure Baron Espinoza MD Work Phone: [facility] Comment on above: Urinary retention (P rimary Dx); Anemia, unspecified type; Mild cognitive impairment with memory loss; Atherosclerosis of [place] coronary artery of [place] heart without angina pectoris; Cardiomyopathy, nonischemic (HCC); Type 2 diabetes mellitus with other specified complication, without long-term current use of insulin (HCC); 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 Comment on above: Patient Update surgery question Start: 05-14-2023 Telephone encounter Baron Espinoza MD Work Phone: [facility] Comment on above: Medical Clearance Fo rm-Urology Procedure Start: 05-10-2023 End: 05-10-2023 Admission to [address] Start: 05-10-2023 End: 05-10-2023 ambulatory Pst 1 Pre Surgical Testing Comment on above: Pre-op examination; Benign prostatic hyperplasia with urinary retention; Retention of urine, unspecified; Hyperlipidemia LDL goal <100; Primary hypertension; Atherosclerosis of [place] coronary artery of [place] heart without angina pectoris; Cardiomyopathy, nonischemic (HCC); [...] End: 05-20-2023 Preprocedural examination done Pst 1 [facility] Work Phone: Start: 05-03-2023 Telephone encounter Dung Gaona MD Work Phone: [facility] Comment on above: Surgery Scheduled Start: 05-03-2023 End: 05-03-2023 Patient encounter procedure Dung Gaona MD Work Phone: [facility] Comment on above: 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); Poor urinary stream Start: 05-01-2023 End: 05-01-2023 Home visit Jennifer Clrak PT Work Phone: [facility] Comment on above: PT AGENCY DC W VISIT Start: 04-25-2023 End: 04-25-2023 Home visit Jade Echevarria SHIP JOINER Work Phone: [facility] Comment on above: SHIP JOINER ROUTINE Start: 04-23-2023 Telephone encounter Baron Espinoza MD Work Phone: [facility] [place] Comment on above: Extend PT-need verba l Start: 04-23-2023 End: 04-23-2023 Home visit Cori Chowdhury PT Work Phone: [facility] Comment on above: TELEPHONE CONTACT Start: 04-19-2023 End: 04-19-2023 Home visit Cori Chowdhury PT Work Phone: [facility] Comment on above: PT REASSESSMENT Start: 04-19-2023 Telephone encounter Harinder Norris RN Work Phone: [facility] Comment on above: Home Care (Notificat ion of skilled home health nurse discipline discharge 04/09/23.) Start: 04-17-2023 End: 04-17-2023 Home visit Jade Echevarria SHIP JOINER Work Phone: [facility] Comment on above: SHIP JOINER ROUTINE Start: 2023 End: 2023 Patient encounter procedure Dung Gaona MD Work Phone: [facility] Comment on above: 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); Nocturia; Poor urinary stream Start: 04-03-2023 End: 04-03-2023 Home visit Jose Solomon SHIP JOINER Work Phone: [facility] Comment on above: SHIP JOINER ROUTINE Start: 03-29-2023 End: 03-29-2023 Home visit Jade Echevarria SHIP JOINER Work Phone: [facility] Comment on above: SHIP JOINER ROUTINE SN ROUTINE Start: 03-29-2023 End: 03-29-2023 Nursing evaluation of patient and report Nurse Urol [facility] Work Phone: Urology Comment on above: 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) Start: 03-27-2023 End: 03-27-2023 Home visit Jade Echevarria SHIP JOINER Work Phone: [facility] Comment on above: SHIP JOINER ROUTINE Start: 03-25-2023 Telephone encounter Self [facility] Comment on above: Home Care Appointment Start: 03-25-2023 End: 03-25-2023 Patient encounter procedure Baron Espinoza MD Work Phone: [facility] Comment on above: Osteoarthritis of verna th knees, unspecified osteoarthritis type (Primary Dx); Type 2 diabetes mellitus with diabetic polyneuropathy, without long-term current use of insulin ([facility]); Mild cognitive impairment with memory loss; Lumbar disc disease with radiculopathy; Atherosclerosis of [place] coronary artery of [place] heart without angina pectoris; Cardiomyopathy, nonischemic ([facility]); Controlled type 2 diabetes mellitus with microalbuminuria, without long-term current use of insulin ([facility]); Benign prostatic hyperplasia with urinary obstruction; 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); History of splenectomy; Urinary retention; Debility; Anxiety state Start: 03-24-2023 End: 03-24-2023 Home visit Jennifer Clark PT Work Phone: [facility] Comment on above: PT EVAL Start: 03-22-2023 Telephone encounter Lorenzo Charles benoit PA-C Work Phone: Urology Comment on above: Patient Update Start: 03-22-2023 End: 03-22-2023 Patient encounter procedure Lorenzo Sotocy MORALES Work Phone: Urology Comment on above: 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); 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); Controlled type 2 diabetes mellitus with microalbuminuria, without long-term current use of insulin (HCC) Start: 03-21-2023 Telephone encounter Lorenzo Charles benoit PA-C Work Phone: Urology Comment on above: Appointment Start: 03-19-2023 End: 03-19-2023 Home visit María Mcdonnell RN Work Phone: [facility] Comment on above: SN SOC Start: 03-16-2023 Telephone encounter Marisol dewitt LPN Work Phone: [facility] Comment on above: Home Care (MD yodit adams ) Home Care (Pt confir mation call ) Start: 03-08-2023 Non-patient / Non-visit Dr. Ford Espinoza Work Phone: [facility] Start: 03-07-2023 Non-patient / Non-visit Dr. Ford Espinoza Work Phone: [facility] Start: 03-06-2023 End: 03-08-2023 Evaluation and management of inpatient [facility] 3 Start: 03-06-2023 End: 03-08-[address] Baron Espinoza Work Phone: [facility] Work Phone: Start: 02-27-2023 End: 02-28-2023 Orders Only Karyna Reeves MD Work Phone: Endocrine Surgery Comment on above: Hyperparathyroidism (HCC) (Primary Dx) Start: 02-26-2023 Orders Only Karyna feldman MD Work Phone: Endocrine Surgery Comment on above: Hyperparathyroidism (HCC) (Primary Dx) Start: 02-21-2023 Refill Baron Espinoza MD Work Phone: [facility] Comment on above: Refill Request Start: 02-08-2023 Refill Baron Espinoza MD Work Phone: [facility] Comment on above: Refill Request Start: 01-30-2023 Refill Baron Espinoza MD Work Phone: [facility] Comment on above: Refill Request Start: 12-27-2022 End: 12-27-2022 Orders Only Valerie Munoz MD Work Phone: Endocrine Surgery Comment on above: Hyperparathyroidism (HCC) (Primary Dx) Primary hyperparathy roidism (HCC) Hypercalcemia [E83.5 2] MM OR 02/27/23 (Parat hyroidectomy/) Start: 12-19-2022 Telephone encounter Valerie Munoz MD Work Phone: Endocrine Surgery Comment on above: Consult (Face Sheet) Start: 12-18-2022 End: 12-18-2022 Patient encounter procedure Lori Goodman Work Phone: [...] Dx); Primary hyperparathyroidism (HCC) Start: 12-07-2022 Refill Baron Espinoza MD Work Phone: [facility] Comment on above: Refill Request Start: 11-26-2022 End: 11-26-2022 Patient encounter procedure Ian Holly MD Work Phone: Cardiology Comment on above: Primary hypertension (Primary Dx); Atherosclerosis of [place] coronary artery of [place] heart without angina pectoris; Hyperlipidemia LDL goal <100; LBBB (left bundle branch block); Cardiomyopathy, nonischemic (HCC) Start: 11-23-2022 End: 11-23-2022 Patient encounter procedure Lorenzo Carballo PA-C Work Phone: Urology Comment on above: Benign prostatic hyp erplasia, unspecified whether lower urinary tract symptoms present (Primary Dx) Start: 09-11-2022 Refill Baron Espinoza MD Work Phone: [facility] Comment on above: Refill Request Start: 08-15-2022 Refill Baron Espinoza MD Work Phone: [facility] Comment on above: Refill Request Start: 07-27-2022 End: 07-27-2022 Patient encounter procedure Lori Maxine Work Phone: Podiatry Comment on above: Onychomycosis (Prima ry Dx); Pain in toe of left foot; Pain in toe of right foot; Diabetic polyneuropathy associated with type 2 diabetes mellitus (HCC); Hyperkeratosis; Nevus Start: 07-26-2022 Refill Baron Espinoza MD Work Phone: [facility] Comment on above: Refill Request Start: 06-29-2022 Refill Baron Espinoza MD Work Phone: [facility] Comment on above: Refill Request; Refi ll Request Start: 06-05-2022 End: 06-05-2022 Patient encounter procedure Shanthi Rangel MD Work Phone: Endocrinology Comment on above: Hyperparathyroidism (HCC) (Primary Dx); Hypercalcemia Start: 05-09-2022 Telephone encounter Baron Espinoza MD Work Phone: [facility] Comment on above: Results Start: 05-07-2022 End: 05-07-2022 Patient encounter procedure Baron Espinoza MD Work Phone: [facility] [place] Comment on above: Hypercalcemia (Prima ry Dx); [...] mellitus (HCC); Hyperkeratosis; Nevus Start: 04-13-2022 Refill Baron Espinoza MD Work Phone: [facility] [place] Comment on above: Refill Request Start: 03-22-2022 Refill [facility] Comment on above: Refill Request Start: 03-21-2022 Refill Alex Sexton APRN.PROCESS LINE OPERATOR, DNP Work Phone: [facility] [place] Comment on above: Refill Request Start: 03-05-2022 Refill Baron Espinoza MD Work Phone: [facility] [place] Comment on above: Refill Request Start: 09-26-2021 End: 09-26-2021 Subsequent hospital visit by physician Gina [facility] [place] Work Phone: Radiology Comment on above: Pneumonia due to COV ID-19 virus [U07.1, J12.82] Procedures Date Procedure Procedure Detail Performing Clinician Start: 05-06-[address] Baron Espinoza MD Work Phone: Start: 05-01-2025 Plain chest X-ray Dr. Baron Espinoza MD Work Phone: Start: 05-01-2025 Carbon dioxide measurement, partial pressure Dr. Baron Espinoza MD Work Phone: Start: 05-01-2025 Gases blood o2 saturation only direct devante Dr. Baron Espinoza MD Work Phone: Start: 05-01-2025 Measurement of partial pressure of oxygen in blood Dr. Baron Espinoza MD Work Phone: Start: 05-01-[address] Baron Espinoza MD Work Phone: Start: 04-28-[address] Baron Espinoza MD Work Phone: Start: 04-27-2025 MRI of brain without contrast Dr. Baron Espinoza MD Work Phone: Start: 04-26-2025 CT of head without contrast Dr. Baron Espinoza MD Work Phone: Start: 04-26-2025 CT angiography of head and neck Dr. Baron Espinoza MD Work Phone: Start: 04-24-[address] Baron Espinoza MD Work Phone: Start: 04-24-[address] Baron Talbert Work Phone: Start: 04-24-2025 Plain X-ray of hip Dr. Baron Espinoza MD Work Phone: Start: 04-23-2025 Plain chest X-ray Dr. Baron Espinoza MD Work Phone: Start: 04-23-2025 Plain x-ray of pelvis and lower extremity Dr. Baron Espinoza MD Work Phone: Start: 04-23-[address] Baron Espinoza MD Work Phone: Start: 11-13-2024 Adult depression screening assessment Baron Espinoza MD Work Phone: Start: 10-02-2024 End: 10-02-2024 Devante post-voiding residual urine&/bladder cap Dung Gaona MD Work Phone: Start: 01-01-2024 Computerized ophthalmic imaging retina Dmitry Painting MD Work Phone: Start: 01-01-2024 Post-cataract laser surgery Dmitry Painting MD Work Phone: Start: 05-30-2023 BLADDER SCAN Dung Gaona MD Work Phone: Start: 2023 Us pelvic nonobstetric image dcmtn limited/f/u Dung Gaona MD Work Phone: Start: 03-06-2023 Radiologic examination of knee Dr. Baron Espinoza Work Phone: Start: 03-05-2023 Plain chest X-ray Start: 02-27-2023 Us soft tissue head & neck real time imge docm Karyna Reeves MD Work Phone: Start: 12-27-2022 Us soft tissue head & neck real time imge docm Valerie Munoz MD Work Phone: Start: 12-27-2022 Dxa bone density study 1/> sites axial abigail Rangel MD Work Phone: Start: 11-23-2022 Urnls dip stick/tablet rgnt auto w/o microscopy Lorenzo Carballo PA-C Work Phone: Start: 05-07-2022 Adult depression screening assessment Baron Espinoza MD Work Phone: Start: 09-26-2021 Radiologic exam chest 2 views Baron Espinoza MD Work Phone: Start: 01-09-2021 Adult depression screening assessment Baron Espinoza MD Work Phone: Start: 02-07-2015 H/O splenectomy History of splenectomy Baron Espinoza MD Work Phone: H/O splenectomy History of splenectomy Wi bernice Espinoza MD Work Phone: H/O splenectomy History of splenectomy Ford Espinoza MD Work Phone: Viral antigen assay Dr. Huey Espinoza Work Phone: Plan of Treatment Date Care Activity Detail Author Start: 11-28-2027 Urine microalbumin profile [facility] Start: 11-13-2025 Covid-19 Vaccine ( season) Covid-19 Vaccine ( season) [facility] Comment on above: Postponed from 07/19/2024 (Declined at t his time) Start: 11-13-2025 Depression Screening Depression Screening [facility] Start: 11-13-2025 Hepatitis B screening Urine Albumin:Creatinine Ratio [facility] Start: 11-13-2025 Hepatitis B surface antibody level LDL Cholesterol [facility] Start: 11-13-2025 RSV Vaccine (1 - 1-dose 75+ series) RSV Vaccine (1 - 1-dose 75+ series) [facility] Comment on above: Postponed from 2017 (Declined at t his time) Start: 11-13-2025 Shingrix Vaccine (1 of 2) Shingrix Vaccine (1 of 2) [facility] Comment on above: Postponed from 03/31/2012 (Declined at t his time) Start: 10-12-2025 End: 10-12-2025 Patient encounter procedure 10/12/2025 9:00 AM EST Office Visit [facility] [address] [place] [address] Dung Gaona MD [address] [place] [id number] 12 month follow up [facility] Comment on above: 12 month follow up Start: 09-28-2025 Diabetic foot examination Diabetic Foot Exam [facility] Start: 06-07-2025 End: 06-07-2025 Patient encounter procedure Cardiology Comment on above: Cardiomyopathy, nonischemic (HCC) [I42.8 ]; Chronic systolic heart failure (HCC) [I50.22]; Controlled type 2 diabetes mellitus with microalbuminuria, without long-term current use of insulin (HCC) (HCC) [E11.29, R80.9] Start: 05-17-2025 End: 05-17-2025 Patient encounter procedure 05/17/2025 1:00 PM EDT Office Visit [facility] [address] [place] [id number] Baron Espinoza MD [address] [place] [id number] [facility] [place] Comment on above: physical Start: 05-14-2025 Hemoglobin A1c measurement HbA1C [facility] Start: 05-06-2025 Patient discharge [facility] Start: 05-06-2025 Administration of blood product [facility] Start: 05-05-2025 [facility] Start: 05-04-2025 [facility] Start: 05-03-2025 Palliative care [facility] Start: 05-03-2025 [facility] Start: 05-02-2025 Inhalation therapy procedure [facility] Start: 05-02-2025 [facility] Start: 04-30-2025 Care planning and problem solving actions [facility] Start: 04-29-2025 End: 04-30-2025 [facility] Start: 04-26-2025 Administration of blood product [facility] Start: 04-25-2025 Implementation of planned interventions [facility] Start: 04-25-2025 Notification of physician [facility] Start: 04-25-2025 End: 04-25-2025 Speech therapy assessment [facility] Start: 04-25-2025 Provision of overbed trapeze [facility] Start: 04-25-2025 End: 04-25-2025 [facility] Start: 04-24-2025 Measuring intake and output [facility] Start: 04-24-2025 Measuring intake and output [facility] Start: 04-24-2025 Recommendation to continue with treatment [facility] Start: 04-24-2025 Ambulation therapy management [facility] Start: 04-24-2025 Application of device [facility] Start: 04-24-2025 Catheterization of vein [facility] Start: 04-24-2025 Exercises [facility] Start: 04-24-2025 Following clinical pathway protocol [facility] Start: 04-24-2025 Introduction of urinary catheter [facility] Start: 04-24-2025 Neurovascular assessment [facility] Start: 04-24-2025 Patient education [facility] Start: 04-24-2025 Procedure discontinued [facility] Start: 04-24-2025 Provision of activity privileges [facility] Start: 04-24-2025 Provision of overbed trapeze [facility] Start: 04-24-2025 Referral to occupational therapist [facility] Start: 04-24-2025 Referral to service [facility] Start: 04-24-2025 Vital signs measurements [facility] Start: 04-24-2025 Wound care [facility] Start: 04-24-2025 End: 04-25-2025 [facility] Start: 04-24-2025 End: 04-24-2025 Measuring intake and output [facility] Start: 04-24-2025 Following clinical pathway protocol [facility] Start: 04-24-2025 Application of intermittent pneumatic compression device [facility] Start: 04-24-2025 Application of ice collar, cap or bag [facility] Start: 04-24-2025 Care regimes management [facility] Start: 04-24-2025 Consultation [facility] Start: 04-24-2025 Fall prevention [facility] Start: 04-24-2025 Insertion of catheter into peripheral vein [facility] Start: 04-24-2025 Introduction of urinary catheter [facility] Start: 04-24-2025 Neurovascular assessment [facility] Start: 04-24-2025 Notification of physician [facility] Start: 04-24-2025 Oxygen therapy [facility] Start: 04-24-2025 Providing care according to standard [facility] Start: 04-24-2025 Referral to service [facility] Start: 04-24-2025 Skin care [facility] Start: 04-24-2025 End: 04-24-2025 [facility] Start: 04-24-2025 Measuring intake and output [facility] Start: 04-23-2025 Verification routine [facility] Start: 04-23-2025 Admission procedure [facility] Start: 04-23-2025 Hospital admission, emergency, from emergency room, medical nature [facility] Start: 04-23-2025 [facility] Start: 04-09-2025 End: 04-09-2025 Patient encounter procedure Podiatry Comment on above: 3mth follow up Start: 01-08-2025 End: 01-08-2025 Patient encounter procedure Podiatry Comment on above: 3mth follow up Start: 01-01-2025 Glaucoma screening Dilated Retinal Exam [facility] Start: 12-26-2024 Hepatitis B surface antibody level LDL Cholesterol [facility] Start: 11-21-2024 Diabetic foot examination Diabetic Foot Exam [facility] Start: 11-18-2024 Advance Directive Discussion Advance Directive Discussion [facility] Start: 11-13-2024 End: 02-12-2025 Comprehensive metabolic 2000 panel - Serum or Plasma [facility] Work Phone: Comment on above: Expected: 11/13/2024, Expires: Start: 11-13-2024 End: 02-12-2025 Hemoglobin A1c in Blood [facility] Comment on above: Expected: 11/13/2024, Expires: Start: 11-13-2024 End: 02-12-2025 LIPID PANEL, NONFASTING [facility] Comment on above: Expected: 11/13/2024, Expires: Start: 11-13-2024 End: 02-12-2025 Microalbumin/Creatinine [Mass Ratio] in Urine [facility] Comment on above: Expected: 11/13/2024, Expires: Start: 11-13-2024 End: 02-12-2025 Urate [Mass/volume] in Serum or Plasma [facility] Comment on above: Expected: 11/13/2024, Expires: Start: 11-13-2024 End: 11-13-2024 Patient encounter procedure 11/13/2024 10:00 AM EST Office Visit Family [facility] [address] [place] [address] Baron Espinoza MD [address] [place] [address] Physical [facility] Comment on above: Physical Start: 10-06-2024 End: 10-06-2024 Patient encounter procedure 10/06/2024 10:00 AM EST Office Visit [facility] [address] [place] [address] Dung Gaona MD [address] [place] [phone] 12 months [facility] Comment on above: 12 months Start: 10-02-2024 End: 10-02-2024 Patient encounter procedure 10/02/2024 10:45 AM EST Office Visit [facility] [address] [place] [phone] Dung Gaona MD [address] [place] [address] 12 months/ PVR [facility] Comment on above: 12 months/ PVR Start: 08-28-2024 End: 08-28-2024 Patient encounter procedure 08/28/2024 8:00 AM EDT Office Visit Podiatry [address] [place] [address] Lori Goodman [address] [facility] [place] [address] 3 month follow up diabetic foot care Podiatry Comment on above: 3 month follow up diabetic foot care Start: 07-19-2024 Covid-19 Vaccine ( season) Covid-19 Vaccine ( season) [facility] Start: 07-19-2024 Influenza vaccination [facility] Start: 05-26-2024 End: 05-26-2024 Patient encounter procedure 05/26/2024 8:00 AM EDT Office Visit Podiatry [address] [place] [address] Lori Goodman [address] [facility] [place], [place] [id number] 3 month follow up nail care Podiatry Comment on above: 3 month follow up nail care Start: 03-29-2024 BP CONTROLLED (<130/80) BP CONTROLLED (<130/80) [facility] Start: 03-27-2024 BP CONTROLLED (<130/80) BP CONTROLLED (<130/80) [facility] Start: 03-25-2024 ANNUAL PCP TEAM CHRONIC DISEASE VISIT ANNUAL PCP TEAM CHRONIC DISEASE VISIT [facility] Start: 03-25-2024 BP CONTROLLED (<130/80) BP CONTROLLED (<130/80) [facility] Start: 03-22-2024 BP CONTROLLED (<130/80) BP CONTROLLED (<130/80) [facility] Start: 03-19-2024 BP CONTROLLED (<130/80) BP CONTROLLED (<130/80) [facility] Start: 01-20-2024 End: 04-20-2024 CBC W Auto Differential panel - Blood CBC + DIFF Lab Routine Anemia, unspecified type Expected: 01/20/2024, Expires: 04/20/2024 [facility] Work Phone: Comment on above: Expected: 01/20/2024, Expires: Start: 01-20-2024 End: 04-20-2024 Comprehensive metabolic 2000 panel - Serum or Plasma COMP METABOLIC PANEL Lab Routine MOISES (acute kidney injury) (HCC) Expected: 01/20/2024, Expires: 04/20/2024 [facility] Work Phone: Comment on above: Expected: 01/20/2024, Expires: 4 Start: 01-20-2024 End: 04-20-2024 Ferritin [Mass/volume] in Serum or Plasma FERRITIN BLD Lab Routine Anemia, unspecified type Expected: 01/20/2024, Expires: 04/20/2024 [facility] Work Phone: Comment on above: Expected: 01/20/2024, Expires: 4 Start: 01-20-2024 End: 04-20-2024 Iron and Iron binding capacity panel - Serum or Plasma IRON + TIBC Lab Routine Anemia, unspecified type Expected: 01/20/2024, Expires: 04/20/2024 [facility] Work Phone: Comment on above: Expected: 01/20/2024, Expires: 4 Start: 01-20-2024 End: 04-20-2024 Magnesium [Mass/volume] in Serum or Plasma MAGNESIUM BLD Lab Routine MOISES (acute kidney injury) (HCC) Anemia, unspecified type Expected: 01/20/2024, Expires: 04/20/2024 [facility] Work Phone: Comment on above: Expected: 01/20/2024, Expires: 4 Start: 11-26-2023 BP CONTROLLED (<130/80) BP CONTROLLED (<130/80) [facility] Start: 11-23-2023 BP CONTROLLED (<130/80) BP CONTROLLED (<130/80) [facility] Start: 11-20-2023 Hemoglobin A1c measurement HbA1C [facility] Start: 11-20-2023 Hemoglobin A1c/Hemoglobin.total in Blood HBA1C [facility] Start: 11-18-2023 Advance Directive Discussion Advance Directive Discussion [facility] Start: 11-18-2023 Behavioral Health Screening Behavioral Health Screening [facility] Start: 11-18-2023 Depression Assessment Depression Assessment [facility] Start: 11-15-2023 ANNUAL PCP TEAM CHRONIC DISEASE VISIT ANNUAL PCP TEAM CHRONIC DISEASE VISIT [facility] Start: 07-19-2023 Covid-19 Vaccine ( season) Covid-19 Vaccine ( season) [facility] Start: 07-19-2023 Influenza vaccination [facility] Start: 05-20-2023 End: 07-20-2023 Hemoglobin A1c in Blood [facility] Work Phone: Comment on above: Expected: 05/20/2023, Expires: 3 Start: 05-16-2023 Hemoglobin A1c/Hemoglobin.total in Blood HBA1C [facility] Start: 05-07-2023 Adult depression screening assessment DEPRESSION SCREENING [facility] Start: 05-07-2023 ANNUAL PCP TEAM CHRONIC DISEASE VISIT ANNUAL PCP TEAM CHRONIC DISEASE VISIT [facility] Start: 05-07-2023 Hepatitis B screening URINE ALBUMIN:CREATININE RATIO [facility] Start: 05-07-2023 Hepatitis B surface antibody level LDL CHOLESTEROL [facility] Start: 04-17-2023 3 comp foot exam completed DIABETIC FOOT EXAM [facility] Start: 03-08-2023 Patient discharge [facility] Start: 03-06-2023 Following clinical pathway protocol [facility] Start: 03-06-2023 Aspiration precautions [facility] Start: 03-06-2023 Assessment of risk of venous thromboembolism [facility] Start: 03-06-2023 Care regimes management [facility] Start: 03-06-2023 Fall prevention [facility] Start: 03-06-2023 Inhalation therapy procedure [facility] Start: 03-06-2023 Insertion of catheter into peripheral vein [facility] Start: 03-06-2023 Introduction of urinary catheter [facility] Start: 03-06-2023 Measuring intake and output [facility] Start: 03-06-2023 Oxygen therapy [facility] Start: 03-06-2023 Providing care according to standard [facility] Start: 03-06-2023 Provision of activity privileges [facility] Start: 03-06-2023 Referral to occupational therapist [facility] Start: 03-06-2023 Referral to service [facility] Start: 03-06-2023 Verification routine [facility] Start: 03-06-2023 End: 03-06-2023 [facility] Start: 03-06-2023 Viral nucleic acid assay [facility] Start: 03-06-2023 Admission procedure [facility] Start: 01-10-2023 Covid-19 Vaccine (6 - Pfizer risk series) Covid-19 Vaccine (6 - Pfizer risk series) [facility] Start: 12-28-2022 End: 12-27-2023 Basic metabolic 2000 panel - Serum or Plasma BASIC METABOLIC PNL Lab Routine Hyperparathyroidism (HCC) Expected: 12/28/2022, Expires: 12/27/2023 [facility] Work Phone: Comment on above: Expected: 12/28/2022, Expires: 4 Start: 12-28-2022 End: 12-27-2023 CBC W Auto Differential panel - Blood CBC + DIFF Lab Routine Hyperparathyroidism (HCC) Expected: 12/28/2022, Expires: 12/27/2023 [facility] Work Phone: Comment on above: Expected: 12/28/2022, Expires: 4 Start: 12-28-2022 End: 12-27-2023 SARS-CoV-2 (COVID-19) RNA [Presence] in Respiratory specimen by FLOYD with probe detection PRE-PROCEDURE & PRE-OPERATIVE COVID Microbiology Routine Hyperparathyroidism (HCC) Expected: 12/28/2022, Expires: 12/27/2023 [facility] Work Phone: Comment on above: Expected: 12/28/2022, Expires: 4 Start: 11-18-2022 ADVANCE DIRECTIVE DISCUSSION ADVANCE DIRECTIVE DISCUSSION [facility] Start: 11-18-2022 DEPRESSION ASSESSMENT DEPRESSION ASSESSMENT [facility] Start: 11-06-2022 ANNUAL PCP TEAM CHRONIC DISEASE VISIT ANNUAL PCP TEAM CHRONIC DISEASE VISIT [facility] Start: 11-06-2022 BP CONTROLLED (<130/80) BP CONTROLLED (<130/80) [facility] in Start: 11-06-2022 Hemoglobin A1c/Hemoglobin.total in Blood HBA1C [facility] Start: 07-19-2022 Influenza vaccination INFLUENZA (#1) [facility] Start: 06-05-2022 End: 08-05-2022 25-hydroxyvitamin D3 [Mass/volume] in Serum or Plasma VITAMIN D 25 HYDROXY Lab Routine Hypercalcemia Hyperparathyroidism (HCC) Expected: 06/05/2022, Expires: 08/05/2022 [facility] Work Phone: Comment on above: Expected: 06/05/2022, Expires: 2 Start: 06-05-2022 End: 08-05-2022 CALCIUM 24 HR URINE CALCIUM 24 HR URINE Lab Routine Hypercalcemia Hyperparathyroidism (HCC) Expected: 06/05/2022, Expires: 08/05/2022 [facility] Work Phone: Comment on above: Expected: 06/05/2022, Expires: 2 Start: 06-05-2022 End: 08-05-2022 Calcium.ionized [Moles/volume] in Blood CALCIUM IONIZED BLOOD Lab Routine Hypercalcemia Hyperparathyroidism (HCC) Expected: 06/05/2022, Expires: 08/05/2022 [facility] Work Phone: Comment on above: Expected: 06/05/2022, Expires: 2 Start: 06-05-2022 End: 08-05-2022 Comprehensive metabolic 2000 panel - Serum or Plasma COMP METABOLIC PANEL Lab Routine Hypercalcemia Hyperparathyroidism (HCC) Expected: 06/05/2022, Expires: 08/05/2022 [facility] Work Phone: Comment on above: Expected: 06/05/2022, Expires: 2 Start: 06-05-2022 End: 08-05-2022 CREATININE 24 HR UR CREATININE 24 HR UR Lab Routine Hypercalcemia Hyperparathyroidism (HCC) Expected: 06/05/2022, Expires: 08/05/2022 [facility] Work Phone: Comment on above: Expected: 06/05/2022, Expires: 2 Start: 06-05-2022 End: 07-05-2023 Dxa bone density study sites axial skel DXA-AXIAL SKELETON Radiology Routine Hypercalcemia Hyperparathyroidism (HCC) Expected: 06/05/2022, Expires: 07/05/2023 [facility] Work Phone: Comment on above: Expected: 06/05/2022, Expires: 3 Start: 06-05-2022 End: 08-05-2022 Parathyrin.intact [Mass/volume] in Serum or Plasma PTH INTACT BLD Lab Routine Hypercalcemia Hyperparathyroidism (HCC) Expected: 06/05/2022, Expires: 08/05/2022 [facility] Work Phone: Comment on above: Expected: 06/05/2022, Expires: 2 Start: 06-05-2022 End: 08-05-2022 Phosphate [Mass/volume] in Serum or Plasma PHOSPHORUS INORGANIC Lab Routine Hypercalcemia Hyperparathyroidism (HCC) Expected: 06/05/2022, Expires: 08/05/2022 [facility] Work Phone: Comment on above: Expected: 06/05/2022, Expires: 2 Start: 05-07-2022 End: 05-07-2023 25-hydroxyvitamin D3 [Mass/volume] in Serum or Plasma [facility] Work Phone: Comment on above: Expected: 05/07/2022, Expires: 3 Start: 05-07-2022 End: 07-07-2022 ALBUMIN/CREAT RATIO RND UR [facility] Work Phone: Comment on above: Expected: 05/07/2022, Expires: 2 Start: 05-07-2022 End: 07-07-2022 Basic metabolic 2000 panel - Serum or Plasma [facility] Work Phone: Comment on above: Expected: 05/07/2022, Expires: 2 Start: 05-07-2022 End: 05-07-2023 Calcium.ionized [Moles/volume] in Blood [facility] Work Phone: Comment on above: Expected: 05/07/2022, Expires: 3 Start: 05-07-2022 End: 05-07-2023 CBC W Auto Differential panel - Blood [facility] Work Phone: Comment on above: Expected: 05/07/2022, Expires: 3 Start: 05-07-2022 End: 05-07-2023 Cobalamin (Vitamin B12) [Mass/volume] in Serum or Plasma [facility] Work Phone: Comment on above: Expected: 05/07/2022, Expires: 3 Start: 05-07-2022 End: 05-07-2023 Ferritin [Mass/volume] in Serum or Plasma [facility] Work Phone: Comment on above: Expected: 05/07/2022, Expires: 3 Start: 05-07-2022 End: 05-07-2023 Folate [Mass/volume] in Serum or Plasma [facility] Work Phone: Comment on above: Expected: 05/07/2022, Expires: 3 Start: 05-07-2022 End: 07-07-2022 Hemoglobin A1c in Blood [facility] Work Phone: Comment on above: Expected: 05/07/2022, Expires: 2 Start: 05-07-2022 Hemoglobin A1c/Hemoglobin.total in Blood HBA1C [facility] Start: 05-07-2022 End: 05-07-2023 Hemoglobin.gastrointestin al.lower [Presence] in Stool by Immunoassay FECAL OCCULT BLOOD TEST Lab Routine Anemia, unspecified type Expected: 05/07/2022, Expires: 05/07/2023 [facility] Work Phone: Comment on above: Expected: 05/07/2022, Expires: 3 Start: 05-07-2022 End: 05-07-2023 Iron and Iron binding capacity panel - Serum or Plasma [facility] Work Phone: Comment on above: Expected: 05/07/2022, Expires: 3 Start: 05-07-2022 End: 07-07-2022 Lipid 1996 panel - Serum or Plasma [facility] Work Phone: Comment on above: Expected: 05/07/2022, Expires: 2 Start: 05-07-2022 End: 05-07-2023 Parathyrin.intact [Mass/volume] in Serum or Plasma [facility] Work Phone: Comment on above: Expected: 05/07/2022, Expires: 3 Start: 01-15-2022 COVID-19 VACCINE (5 - Booster) COVID-19 VACCINE (5 - Booster) [facility] Start: 01-09-2022 3 comp foot exam completed DIABETIC FOOT EXAM [facility] Start: 01-09-2022 Adult depression screening assessment DEPRESSION SCREENING [facility] Start: 01-09-2022 Hepatitis B screening URINE ALBUMIN:CREATININE RATIO [facility] Start: 01-09-2022 Hepatitis B surface antibody level LDL CHOLESTEROL [facility] Start: 11-18-2021 ADVANCE DIRECTIVE DISCUSSION ADVANCE DIRECTIVE DISCUSSION [facility] Start: 11-18-2021 DEPRESSION ASSESSMENT DEPRESSION ASSESSMENT [facility] Start: 11-10-2021 COVID-19 VACCINE (5 - Booster) COVID-19 VACCINE (5 - Booster) [facility] Start: 03-10-2020 Hepatitis C antibody, confirmatory test DILATED RETINAL EXAM [facility] Start: 09-01-2019 BP CONTROLLED (<130/80) BP CONTROLLED (<130/80) [facility] Start: 2017 RSV Vaccine (1 - 1-dose 75+ series) RSV Vaccine (1 - 1-dose 75+ series) [facility] Start: 03-31-2012 SHINGRIX VACCINE (1 of 2) SHINGRIX VACCINE (1 of 2) [facility] Start: 03-31-2012 SHINGRIX VACCINE (2 of 3) SHINGRIX VACCINE (2 of 3) [facility] Start: 2002 RSV Vaccine (1 - 1-dose 60+ series) RSV Vaccine (1 - 1-dose 60+ series) [facility] Start: 1960 Depression Screening Depression Screening [facility] Bacteria identified in Urine by Culture URINE CULTURE Microbiology Routine Benign prostatic hyperplasia, unspecified whether lower urinary tract symptoms present 11/23/2022 9:35 AM EST [facility] Work Phone: Calcium.ionized [Mass/volume] in Serum or Plasma [facility] End: 03-22-2024 CATHETER INSERT-CRAIG CATHETER INSERT-CRAIG Procedures Routine Benign prostatic hyperplasia with urinary obstruction 99 Occurrences starting 03/22/2023 until 03/22/2024 [facility] Work Phone: Comment on above: 99 Occurrences starting 03/22/2023 until 03/22/2024 CATHETER INSERT-CRAIG CATHETER I NSERT-CRAIG Procedures Routine Benign prostatic hyperplasia with urinary obstruction Ordered: 03/29/2023 [facility] Work Phone: Comment on above: Ordered: 03/29/2023 Cystourethroscopy CYSTO.PANENDO Procedures Routine Benign prostatic hyperplasia with urinary obstruction Ordered: 2023 [facility] Work Phone: Comment on above: Ordered: 2023 End: 07-05-2023 Dxa bone density study 1/>sites appendiclr skel DXA-FOREARM SKELETON Radiology Routine Hypercalcemia Hyperparathyroidism (HCC) 1 Occurrences starting 06/05/2022 until 07/05/2023 [facility] Work Phone: Comment on above: 1 Occurrences starting 06/05/2022 until 07/05/2023 End: 12-27-2023 ECG COMPLETE ECG COMPLETE ECG Routine Hyperparathyroidism (HCC) 1 Occurrences starting 12/28/2022 until 12/27/2023 [facility] Work Phone: Comment on above: 1 Occurrences starting 12/28/2022 until 12/27/2023 CRAIG - DISCONTINUE CRAIG - DISC ONTINUE Procedures Routine Benign prostatic hyperplasia with urinary obstruction Ordered: 03/29/2023 [facility] Work Phone: Comment on above: Ordered: 03/29/2023 Insj non-ndwellg jeremi dder catheter INSERT,NON-INDW BLADDER CATH Procedures Routine Benign prostatic hyperplasia with urinary obstruction Ordered: 2023 [facility] Work Phone: Comment on above: Ordered: 2023 End: 01-12-2024 Parathyroid imaging w/tomographic spect & ct NM PARATHYROID W SPECT/CT Radiology Routine Hypercalcemia 1 Occurrences starting 12/13/2022 until 01/12/2024 [facility] Work Phone: Comment on above: 1 Occurrences starting 12/13/2022 until 01/12/2024 End: 12-27-2022 Parathyroid imaging w/tomographic spect & ct [facility] Work Phone: Comment on above: 1 Occurrences starting 12/27/2022 until 12/27/2022 Patient Education ED Fall Prevention [facility] Work Phone: Patient referral [facility] Work Phone: POST VOID RESIDUAL POST VOID RES IDUAL Procedures Routine Benign prostatic hyperplasia, unspecified whether lower urinary tract symptoms present Ordered: 11/23/2022 [facility] Work Phone: Comment on above: Ordered: 11/23/2022 REFER FOR ADMIT INTERVIEW REFER FOR ADMIT INTERVIEW Procedures Routine Hyperparathyroidism (HCC) Ordered: 12/28/2022 [facility] Work Phone: Comment on above: Ordered: 12/28/2022 SARS-CoV-2 (COVID-19 ) Ag [Presence] in Respiratory specimen by Rapid immunoassay [facility] TRUS ONLY TRUS ONLY Proced ures Routine Benign prostatic hyperplasia with urinary obstruction Ordered: 2023 [facility] Work Phone: Comment on above: Ordered: 2023 End: 05-07-2023 US CAROTID ARTERIES [facility] US CAROTID ARTERIES [facility] Vascular Lab Routine Arteriosclerosis of both carotid arteries 1 Occurrences starting 05/07/2022 until 05/07/2023 [facility] Work Phone: Comment on above: 1 Occurrences starting 05/07/2022 until 05/07/2023 US THYROID/PARATHYRO ID (POC) ENDO USE ONLY US THYROID/PARATHYROID (POC) ENDO USE ONLY Imaging Diagnostic Routine Hyperparathyroidism (HCC) Ordered: 02/26/2023 [facility] Work Phone: Comment on above: Ordered: 02/26/2023 VOIDING TRIAL PROTOCOL VOIDING T RIAL PROTOCOL Procedures Routine Benign prostatic hyperplasia with urinary obstruction Ordered: 03/22/2023 [facility] Work Phone: Comment on above: Ordered: 03/22/2023 VOIDING TRIAL PROTOCOL VOIDING T RIAL PROTOCOL Procedures Routine Benign prostatic hyperplasia with urinary obstruction Ordered: 03/29/2023 [facility] Work Phone: Comment on above: Ordered: 03/29/2023 [facility] Immunizations Immunization Date Immunization Notes Care Provider [facility] 11-13-2024 influenza, high dose seasonal, preservative-free Baron Espinoza MD Work Phone: [facility] 11-15-2022 COVID-19 booster vaccine, age 12+ yr, bivalent (PFIZER-BIONTECH) Lorenzo Carballo PA-C Work Phone: [facility] 11-15-2022 Influenza, high dose seasonal Dr. Baron Espinoza MD Work Phone: [facility] 11-15-2022 influenza, high dose seasonal, preservative-free Dr. Baron Espinoza Work Phone: [facility] 11-15-2022 influenza, high-dose , quadrivalent vaccine (FLUZONE HIGH DOSE QUADRIVALENT) Lorenzo Carballo PA-C Work Phone: [facility] 11-15-2022 influenza virus vacc ine, unspecified formulation Baron Espinoza MD Work Phone: [facility] 09-15-2021 Covid (Pfizer) Dr. Baron littlejohn Work Phone: [facility] 08-30-2021 influenza, high dose seasonal, preservative-free Baron Espinoza MD Work Phone: [facility] 02-04-2021 Covid (Pfizer) [facility] 01-18-2021 Covid (Pfizer) Dr. Baron littlejohn Work Phone: [facility] 12-28-2020 Covid (Pfizer) Dr. Baron littlejohn Work Phone: [facility] 08-24-2020 influenza, high-dose , quadrivalent vaccine (FLUZONE HIGH DOSE QUADRIVALENT) Baron Espinoza MD Work Phone: [facility] 09-07-2019 influenza, high dose seasonal, preservative-free Baron Espinoza MD Work Phone: [facility] 08-26-2018 influenza, high dose seasonal, preservative-free Baron Espinoza MD Work Phone: [facility] 08-24-2018 influenza, injectabl e, quadrivalent, preservative free Dr. Baron Espinoza MD Work Phone: [facility] 08-24-2018 influenza, seasonal, injectable [facility] 08-24-2018 influenza, seasonal, injectable, preservative free Baron Espinoza MD Work Phone: [facility] 11-28-2017 tetanus and diphther ia toxoids, adsorbed, preservative free, for adult use (2 Lf of tetanus toxoid and 2 Lf of diphtheria toxoid) Baron Espinoza MD Work Phone: [facility] 11-28-2017 tetanus toxoid, redu donato diphtheria toxoid, and acellular pertussis vaccine, adsorbed [facility] 08-30-2016 tetanus and diphther ia toxoids, adsorbed, preservative free, for adult use (2 Lf of tetanus toxoid and 2 Lf of diphtheria toxoid) Dr. Baron Espinoza Work Phone: [facility] 08-30-2016 tetanus and diphther ia toxoids, adsorbed, preservative free, for adult use (5 Lf of tetanus toxoid and 2 Lf of diphtheria toxoid) Baron Espinoza MD Work Phone: [facility] 11-29-2015 pneumococcal polysaccharide vaccine, 23 valent Baron Espinoza MD Work Phone: [facility] Work Phone: 11-29-2015 pneumococcal vaccine , unspecified formulation [facility] 09-13-2015 pneumococcal conjuga te vaccine, 13 valent Baron Espinoza MD Work Phone: [facility] 08-24-2015 Influenza virus vaccine [facility] 08-24-2015 influenza, seasonal, injectable, preservative free Baron Espinoza MD Work Phone: [facility] 02-04-2012 pneumococcal polysaccharide vaccine, 23 valent Baron Espinoza MD Work Phone: [facility] 02-04-2012 zoster vaccine, live Baron Espinoza MD Work Phone: [facility] 08-31-2010 influenza virus vacc ine, whole virus Baron Espinoza MD Work Phone: [facility] 09-13-2006 tetanus toxoid, redu donato diphtheria toxoid, and acellular pertussis vaccine, adsorbed Baron Espinoza MD Work Phone: [facility] Work Phone: Payers Date Payer Category Payer Self-pay [id number] 2021 Medicare MMO MEDICARE MMO MEDADVANTAGE O [id number] 2021-Present [phone] [address] [place] [address] [facility] [id number] 2021 Medicare (Managed Care) MMO SUMMER DVANTAGE HMO [id number] 2017 Unknown [id number] 2007 Medicare [id number] Private Health Insurance [employer] [id number] Unknown [id number] .2.462 Unknown [id number] 2.16.840.1.472407.3.579 .2.462 Unknown [id number] 2.16.840.1.629097.3.579 .2.462 Unknown [id number] 2.16.840.1.277547.3.579 .2.462 Unknown [id number] 2.16.840.1.597180.3.579 .2.462 Unknown [id number] 2.16.840.1.816815.3.579 .2.462 Unknown [id number] 2.16.840.1.745617.3.579 .2.462 Unknown [id number] 2.16.840.1.278391.3.579 .2.462 Unknown [id number] 2.16.840.1.152135.3.579 .2.462 Unknown [id number] 2.16.840.1.146179.3.579 .2.462 Unknown [id number] 2.16.840.1.241762.3.579 .2.462 Unknown [id number] 2.16.840.1.712714.3.579 .2.462 Unknown [id number] 2.16.840.1.493750.3.579 .2.462 Unknown [id number] 2.16.840.1.255477.3.579 .2.462 Unknown [id number] 2.16.840.1.484197.3.579 .2.462 Unknown [id number] 2.16.840.1.395592.3.579 .2.462 Unknown [id number] 2.16.840.1.852576.3.579 .2.462 Unknown [id number] 2.16.840.1.791299.3.579 .2.462 Unknown [id number] .2.462 Social History Date Type Detail Facility Start: 06-03-2018 End: 04-23-2025 Tobacco smoking status NHIS Ex-smoker [facility] Work Phone: Start: 05-21-1979 End: 05-21-1999 History of tobacco use Current smoker [facility] Work Phone: Start: 05-21-1979 End: 05-21-1999 History of tobacco use Cigarette Smoker [facility] Work Phone: Start: 11-06-2021 End: 01-08-2025 Alcohol intake Current drinker of alcohol (finding) [facility] Start: 06-03-2018 History SDOH Alcohol Comment occasionally [facility] Start: 1940 Sex Assigned At Not on file [facility] Start: 08-27-2021 End: 07-27-2022 Exposure to SARS-CoV-2 (event) Not sure [facility] Start: 06-03-2018 End: 03-21-2023 Cigarettes smoked current (pack per day) - Reported 0.5 [facility] Work Phone: Start: 06-03-2018 End: 10-02-2024 Tobacco use and exposure Smokeless tobacco non-user [facility] Start: 03-06-2023 End: 03-06-2023 Tobacco smoking status NHIS Unknown if ever smoked [facility] Start: 08-22-2018 None [facility] Start: 08-22-2018 Spouse/ Signif icant Other [facility] Start: 08-28-2018 Non-smoker [facility] Start: 1940 Sex Assigned At Male [facility] Start: 03-12-2023 History SDOH Financial 4 [facility] Start: 03-12-2023 History SDOH Food Worry 1 [facility] Start: 03-12-2023 History SDOH Transpo rt Med 2 [facility] Start: 03-21-2023 End: 05-23-2023 Tobacco use panel [facility] Work Phone: How hard is it for y ou to pay for the very basics like food, housing, medical care, and heating Not very hard [facility] Work Phone: Adult Depression Screening Assessment 0 [facility] Work Phone: (I/We) worried whequin er (my/our) food would run out before (I/we) got money to buy more. Never true [facility] Work Phone: In the past 12 month s, was there a time when you were not able to pay the mortgage or rent on time? No [facility] Work Phone: Start: 05-06-2025 Tobacco smoking stat us NHIS Never smoked tobacco (finding) [facility] Medical Equipment Procedure Code Equipment Code Equipment [...] hip V40 FEMORAL HEAD FDA Start: 08-20-2018 Insertion, trochanteric nail, femur, proximal intertan nail FDA Start: 04-24-2025 Insertion, trochanteric nail, femur, proximal Orthopaedic bone screw, non-bioabsorbable, sterile ()[id number] FDA Start: 04-24-2025 Insertion, trochanteric nail, femur, proximal ([id number]) Orthopaedic bone screw, non-bioabsorbable, sterile ()[id number] FDA Start: 04-24-2025 Mesh Surgipro La rge Polypropylene Surgical Nonabsorbable Plug Knitted - [id number] Start: 08-29-2020 Goals Date Patient Goal Desired Activity /State Functional Status Date Assessment Result Facility 05-06-2025 Functional status Bedrest [facility] Work Phone: 05-25-2023 Are you deaf, or do you have serious difficulty hearing No 05/25/2023 6:03 PM Lillian Sanchez RN No [facility] 05-25-2023 Are you blind, or do you have serious difficulty seeing, even when wearing glasses No 05/25/2023 6:03 PM Lillian Sanchez RN No [facility] 05-25-2023 Do you have serious difficulty walking or climbing stairs No 05/25/2023 6:03 PM Lillian Sanchez RN No [facility] 05-25-2023 Do you have difficul ty dressing or bathing No 05/25/2023 6:03 PM Lillian Sanchez RN No [facility] 05-25-2023 Because of a physica l, mental, or emotional condition, do you have difficulty doing errands alone such as visiting a physician's office or shopping Yes 05/25/2023 6:03 PM Lillian Sanchez RN Yes [facility] 03-08-2023 Functional status Ambulates;Bath room Privilege [facility] Work Phone: Mental Status Date Assessment Result Facility 05-06-2025 Cognitive function Voice/Name;Touch/Shaki ng 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 Work Phone: 03-07-2023 Cognitive function Voice/Name [facility] Work Phone: 03-06-2023 Cognitive function Level Of Cons ciousness Awake;Alert;Appropriate;Fol lows Commands [facility] Work Phone: Clinical Notes 07-28-2020 to 05-06-2025 Note Date & Type Note Facility 05-06-2025 Discharge summary Note Date/Time May 06, 2025 1:51pm [facility] Medical Records Department [address] [place] [address] Discharge Summary 05/06/25 1345 MR#: [id number] Acct: [id number] Name: MICHAEL MULLINS Rep #:[id number] : 1940 85 From: Raven Ayala MD PCP: Dr. Baron Espinoza MD Status:ADM I N Location: [place] [address] Providers Date of Admission: 04/23/25 Date of Discharge: 05/06/25 Primary Care Physician: Dr. Baron Espinoza MD Consultations 04/24/25 00:28 Consult: Cardiology Routine Consulting Provider: Marcelle Klein Reason for Consult: fall w/ L hip fx, HFpEF 35%, needs preop assessment EMERGENT Consult: No MD Notified: Yes Date Notified: 04/23/25 Time Notified: 22:07 Method of Notification: Text Consult: Orthopedics Routine Consulting Provider: Jose Miranda Reason for Consult: Fall, L hip fx EMERGENT Consult: No MD Notified: Yes Date Notified: 04/23/25 Time Notified: 22:07 Method of Notification: ED Physician Initiated 05/03/25 11:39 Consult: Hospice / Palliative Care Routine Consulting Provider: [facility] Reason for Consult: Goals of care EMERGENT Consult: No MD Notified: Yes Date Notified: 05/03/25 Time Notified: 11:39 Method of Notification: Answering Service Comments:: paliative Reason For Visit: FALL, L HIP FRACTURE Diagnosis Discharge Diagnosis (1) Acute ischemic stroke: Status: Acute Code(s): I63.9 - Cerebral infarction, unspecified (2) Intertrochanteric fracture of left femur: Status: Acute Code(s): S72.142A - Displaced intertrochanteric fracture of left femur, initial encounterfor closed fracture Plan #Intertrochanteric fx of left femur -Status post left hip cephalomedullary nail postop day 11 #Subacute occipital infarct, left # CKD stage IV #acute on Chronic anemia #Dementia #Depression/anxiety Medications at Discharge Home Medications doxazosin 1 mg tablet 1 mg PO QHS prostate 11/20/15 donepezil 5 mg tablet 10 mg PO QHS memory 11/28/17 paroxetine HCl 10 mg tablet 10 mg PO DAILY anxiety 11/28/17 allopurinol 300 mg tablet (Zyloprim) 300 mg PO DAILY GOUT 04/30/18 memantine 5 mg tablet 10 mg PO BID memory 05/26/21 cholecalciferol (vitamin D3) 25 mcg (1,000 unit) tablet 25 mcg PO DAILY ordered 05/14/23 acetaminophen 500 mg tablet 1,000 mg (2 x 500 mg) PO Q8 #0 tabs 05/06/25 apixaban 5 mg tablet (Eliquis) 2.5 mg (1/2 x 5 mg) PO BID 3 days #3 tabs 05/06/25 aspirin 81 mg chewable tablet 81 mg PO BREAKFAST #0 tabs 05/06/25 atorvastatin 10 mg tablet 40 mg (4 x 10 mg) PO QHS CHOLESTEROL #30 tabs 05/06/25 food supplemt, lactose-reduced 0.08 gram-1.5 kcal/mL oral liquid (Ensure Plus High Protein) 120 ml PO TIDCM #0 mL 05/06/25 ipratropium 0.5 mg-albuterol 3 mg (2.5 mg base)/3 mL nebulization soln 3 ml inhalation TID PRN shortness of breath #0 mL 05/06/25 pantoprazole 40 mg tablet,delayed release 40 mg PO DAILY #0 tabs 05/06/25 quetiapine 25 mg tablet 25 mg PO BID #0 tabs 05/06/25 Hospital Course Operations - (Left hip cephalomedullary nail 04/24/[address] Miranda) Procedures Transthoracic echo Summary of Care Provided Minutes Spent on Discharge: 40 Hospital Course: 85-year-old male history of CKD IV, dementia, depression, chronic anemia, hairy cell leukemia who presented [facility] ED 04/23/2025 after a fall with subsequent left hip pain. X-ray showed acute comminuted intertrochanteric fracture of left femur. ED discussed with Ortho who recommended medical admission with Ortho consult with plans for surgery. Patient underwent left hipcephalomedullary nail 04/24/2025. patient did have postoperative anemia. Postoperative course also complicated by acute CVA with right sided weakness andgarbled speech. Stroke call 04/26/[address] of the brain showed subacute strokein the occipital area of the left brain. Subsequent dysphagia and difficulty with speech/communication/garbled speech and was working with speech therapy with adjustments to his diet. Patient had elevated sodium during admission and was started on fluids, presume this is due to difficulty with free water intake,this improved with fluids and they were d/c'd and patient was taken off of home Lasix especially given normal EF and lack of fluid overload. On day of discharge patient noted to have hemoglobin of 6.7 (7.1 previous day , 8.4 the day before that however 1 day before that was 7.3 )however patient has been anemic since his surgery on 04/24 with hemoglobin fluctuating in the 7-8 range, there is no evidence of ongoing blood loss, suspect that the dip below 7 is due to blood draws, patient's chronic illnesses and kidney disease causing decreasedproduction as well as dilution with the fluids that patient was on. Patient transfused 1 unit because he reached the threshold but again do not think patient is actively bleeding and feel it is reasonable to transfer to SNF and this can be repeated in several days. PPI has been added for gastric protection given eliquis and aspirin. Discussed blood counts and sodium with family and they are comfortable with this plan. Also on day of discharge EKG obtained as patient appeared somewhat irregular on telemetry, this shows sinus arrhythmia which is consistent with previous EKGs and does not appear to have A-fib. On day of discharge patient very difficult historian (has been since stroke) with difficulty getting words out and answering questions, and daughter at bedside report he is actually much better than he had been and that he has continued to improve. They said that earlier he felt like he was going to fall to the right but patient was unable to expand upon that history and tended to say yes to any question asked and then at other times would answer differently to the same questions. Does not appear to have any acute complaints or clinical changes at this time. Pt stable for d/c to SNF DISCHARGE INSTRUCTIONS PLEASE READ *Please take this with you to your next doctors appointment* -Please follow-up with Orthopedic surgery upon discharge. Please call their office to schedule hospital follow-up appointment upon discharge. Per orthopedic recommendations can also consider x-rays and suture/staple removal atskilled facility versus Ortho office on 05/09/2025 (14 days postop) - dressing changes every other day as recommended by orthopedic surgery - will need to continue Eliquis twice daily for DVT prophylaxis as well as an 81mg aspirin per neurology recommendations for 2 weeks postop ( until 05/09) and then aspirin 81 mg twice daily for 2 weeks thereafter before going back down to once daily - Protonix has been added to your medication regimen as well to decrease stomachirritation given need for aspirin and blood thinner - your atorvastatin has been increased to 40 mg due to your stroke -Would recommend lab work ( CBC and BMP) to check your hemoglobin and sodium in 2 to 3 days -Recommend speech/language evaluation at fpc facility, was being seen by speech primarily for dysphagia during his hospitalization -Please follow-up with neurology upon discharge, please call Dr. Braswell's office upon discharge to schedule an appointment to establish care or establishwith a provider of your preference ) - you were started on Seroquel 25 mg twice daily to help with anxiety and agitation, ultimately this may be discontinued at the discretion of the fpc facility -Please call your primary care provider's office upon discharge to schedule a hospital follow up within 1 week. -For any concerning signs or symptoms please call 911 or proceed to the nearest emergency department Physical Exam Narrative General: Patient is awake and alert today however unable to answer orientation questions, garbled speech with word finding difficulty HEENT: Atraumatic Eyes: Anicteric, normal conjunctiva, extraocular movements grossly intact Neck: Supple Respiratory: Clear to auscultation bilaterally, normal respiratory effort Cardiovascular: Regular rate, occasional extra beats, EKG confirmed sinus arrhythmia GI: Soft, did not appear tender while palpating, nondistended Extremities: No edema Musculoskeletal: Is currently moving all extremities with improving strength in right side, difficulty moving left lower extremity due to recent hip fracture surgery Neuro: Garbled speech, word finding difficulty, difficulties with communication Skin: No rashes appreciated Psych: Cooperative Weight / BMI Weight Weight: 65.6 kg Body Mass Index (BMI) 22.6 ABG / Lab / Microbiology Data 05/06/25 05:28 05/06/25 05:28 Laboratory: Laboratory Results - last 24 hr 05/06/25 05:28: WBC 8.9, RBC 2.05 L, Hgb 6.7 L, Hct 20.2 L, MCV 98.5 H, MCH 32.7H, MCHC 33.2, RDW Std Deviation 56.8 H, RDW Coeff of Eduarda 17.4 H, Plt Count 341, MPV 11.5, Immature Gran % (Auto) 0.400, Neut % (Auto) 76.4 H, Lymph % (Auto) 14.1 L, Parker % (Auto) 6.3, Eos % (Auto) 2.7, Baso % (Auto) 0.1, Absolute Neuts (auto) 6.8, Absolute Lymphs (auto) 1.26, Nucleated RBC % 2.5, Sodium 146 H, Potassium 3.4, Chloride 114 H, Carbon Dioxide 21.0, Anion Gap 11, BUN 57 H, Creatinine 2.37 H, Estim Creat Clear Calc 21.31 L, Est GFR (MDRD) Non-Af 27 L, BUN/Creatinine Ratio 23.9 H, Glucose 92, Calcium 7.5 L 05/06/25 09:41: Blood Type O POSITIVE, Antibody Screen NEGATIVE, Crossmatch See Detail D/C Instructions DC O2, CPAP, BIPAP Needs Home O2 Discharge instructions: Yes Type of respiratory needs?: Oxygen Oxygen frequency: Continuous Continuous oxygen liters per minute: 2 DC home with Oxygen: Yes Home O2 MD Review: I have reviewed the oxygen testing, and the patient qualifies for home oxygen equipment and portability. The patient is mobile in the home and the community. Meaningful Use Info Meaningful Use Meaningful Use Diagnoses (Choose all that apply): Ischemic CVA CVA Therapy Assessed for PT,OT and/or ST?: Yes Ischemic Stroke Antithrombotic order at d/c?: Yes Dx of Atrial fib/flutter?: No Statin Dosing Therapy Reference: STATIN DOSE THERAPY REFERENCE: * Patients > 75 years receive moderate or high dose statin therapy. * Patients 75 years or YOUNGER should receive HIGH intensity statin dose unless contraindicated. You will be required to document reason for non-treatment if statin daily dose does not meet guidelines. HIGH DOSE STATIN THERAPY DAILY Atorvastatin > than or = to 40 mg Rosuvastatin > than or = to 20 mg Amlodipine + Atorvastatin > than or = to 2.5/40 mg Ezetimibe + Simvastatin 10/80 mg Simvastatin 80mg Statins at discharge?: Yes Primary Dx Acute Ischemic CVA?: Yes Discharge Plan Admission Admit Date/Time: 04/23/25 21:57 Primary Reason for Your Visit: Fall with left hip fracture Attending Provider: Raven Ayala Primary Care Provider: Baron Espinoza Consulting Providers: Paty Morgan; Jose Miranda; Alfonso Albarado; Sonia Torres;Ara Nunez; Naima Bennett; Karli Rollins NP; Edita Gr; Vern Rao Instructions Patient Instructions: ED Fall Prevention Additional Instructions / Restrictions: DISCHARGE INSTRUCTIONS PLEASE READ *Please take this with you to your next doctors appointment* -Please follow-up with Orthopedic surgery upon discharge. Please call their office to schedule hospital follow-up appointment upon discharge. Per orthopedic recommendations can also consider x-rays and suture/staple removal atskilled facility versus Ortho office on 05/09/2025 (14 days postop) - dressing changes every other day as recommended by orthopedic surgery - will need to continue Eliquis twice daily for DVT prophylaxis as well as an 81mg aspirin per neurology recommendations for 2 weeks postop ( until 05/09) and then aspirin 81 mg twice daily for 2 weeks thereafter before going back down to once daily - Protonix has been added to your medication regimen as well to decrease stomachirritation given need for aspirin and blood thinner - your atorvastatin has been increased to 40 mg due to your stroke -Would recommend lab work ( CBC and BMP) to check your hemoglobin and sodium in 2 to 3 days -Recommend speech/language evaluation at [facility], was being seen by speech primarily for dysphagia during his hospitalization -Please follow-up with neurology upon discharge, please call Dr. Braswell's office upon discharge to schedule an appointment to establish care or establishwith a provider of your preference ) - you were started on Seroquel 25 mg twice daily to help with anxiety and agitation, ultimately this may be discontinued at the discretion of the fpc facility -Please call your primary care provider's office upon discharge to schedule a hospital follow up within 1 week. -For any concerning signs or symptoms please call 911 or proceed to the nearest emergency department Discharge Orders/Prescriptions Prescriptions: New acetaminophen 500 mg Tablet 1,000 mg PO Q8 Qty: 0 0RF aspirin 81 mg Tablet,Chewable 81 mg PO BREAKFAST Qty: 0 0RF Rx Instructions: Take once daily and on 05/10 discontinue Eliquis and take 81 mg of aspirin twice daily for 14 days, decrease to once daily thereafter Ensure Plus High Protein 0.08 gram-1.5 kcal/mL Liquid 120 ml PO TIDCM Qty: 0 0RF quetiapine 25 mg Tablet 25 mg PO BID Qty: 0 0RF ipratropium-albuterol 0.5 mg-3 mg(2.5 mg base)/3 mL Solution For Nebulization 3 ml inhalation TID PRN (Reason: shortness of breath) Qty: 0 0RF pantoprazole 40 mg Tablet,Delayed Release (Dr/Ec) 40 mg PO DAILY Qty: 0 0RF Eliquis 5 mg Tablet 2.5 mg PO BID 3 Days Qty: 3 0RF Rx Instructions: Take through 05/09 then aspirin 81mg BID as detailed Continued cholecalciferol (vitamin D3) 25 mcg (1,000 unit) tablet 25 mcg PO DAILY doxazosin 1 MG tablet 1 mg PO QHS Patient Comments: heart allopurinol [Zyloprim] 300 MG tablet 300 mg PO DAILY paroxetine HCl 10 MG tablet 10 mg PO DAILY donepezil 5 MG tablet 10 mg PO QHS Patient Comments: TAKE 1 TABLET BY MOUTH DAILY AT BEDTIME. memantine 5 mg tablet 10 mg PO BID Changed atorvastatin 10 MG tablet 40 mg PO QHS Qty: 30 0RF Patient Comments: high cholesterol Discontinued ibuprofen 200 mg Capsule 200 mg PO Q4H PRN (Reason: Pain) losartan 50 mg tablet 50 mg PO DAILY Referrals / Follow Up: Canelo Braswell MD [Non-Staff -Ordering Privileges] - (-Please follow-up with neurology upon discharge, please call Dr. Braswell's office upon discharge to schedule an appointment to establish care or establish with a provider of your preference ( [phone])) Jose Miranda MD [Med Staff - Active Staff] - Within 1 Week Baron Espinoza MD [Primary Care Provider] - Disposition Disposition (needs filled in before D/C Order can be placed): [facility] Charges/Coding Visit Charges Inpatient E&M: 53324 Disch Hosp >30min 05/06/25 1351 <Electronically signed by Raven Ayala MD> Cosigner Signature (if applicable): CC: Dr. Raven Ayala MD; Dr. Baron Espinoza MD~ Signed [facility] Work Phone: 1(723) 662-243106-19-2025 Discharge summary Author Raven Ayala [facility] Note Date/Time May 06, 2025 1:45 pm [facility] Medical Records Department [address] [place] [address] Transfer to [facility] MR#: [id number] Acct: [id number] Name: MICHAEL MULLINS Rep #:[id number] : 1940 85 From: Raven Ayala MD PCP: Dr. Baron Espinoza MD Status:ADM I N Certification of patient admission REQUIRED AT TIME OF ADMISSION. I CERTIFY THAT POST-HOSPITAL ECF SERVICES ARE REQUIRED TO BE GIVEN ON AN IN-PATIENT BASIS BECAUSE OF THE ABOVE NAMED PATIENT'S NEED FOR SHELTER CARE ON A CONTINUING BASIS FOR THE CONDITION(S) FOR WHICH HE/SHE WAS RECEIVINGIN-PATIENT HOSPITAL SERVICES PRIOR TO HIS/HER TRANSFER TO THE ECF. 05/06/25 1345<Electronically signed by Raven Ayala MD> Diet Diet Order/Speech Therapy: INPATIENT Hospital Diet / Speech Therapy Order(s) 05/04/25 10:04 Diet: Regular - General Food consistency:: Pureed Liquid Consistency:: [place]/Mildly Thick Type of Dietary Supplement:: [place]. pudding w/meals Diet Comments: TOTAL FEED BY STAFF, LIQUID BY TSP ONLY, MOIST PUREES, MONITORSPO2 Routine Orders/Code Status Suppository Type: Dulcolax 10mg Suppository Frequency: Daily PRN Routine Lab Work: CBC (2-3 days, hemaglobin) and BMP (2-3 days sodium) Code Status: Full Code DC O2, CPAP, BIPAP needs Home O2 Discharge instructions: Yes Type of respiratory needs?: Oxygen Oxygen frequency: Continuous Continuous oxygen liters per minute: 2 Wound(s) LEFT HIP: Wound Type: Surgical Incision Left Knee: Wound Type: Surgical Incision left thigh: Wound Type: Surgical Incision left upper hip: Wound Type: Surgical Incision L Elbow: Wound Type: Skin Tear Therapies Weight Bearing: Weight bearing as tolerated Extremity Affected:: Left Lower Physical Therapy: Eval and Treat Occupational Therapy: Eval and Treat Speech Therapy: Eval and Treat Problem/Diagnosis (1) Intertrochanteric fracture of left femur: Status: Acute Code(s): S72.142A - Displaced intertrochanteric fracture of left femur, initial encounterfor closed fracture Plan #Intertrochanteric fx of left femur -Status post left hip cephalomedullary nail postop day 11 #Subacute occipital infarct, left # CKD stage IV #acute on Chronic anemia #Dementia #Depression/anxiety 85-year-old male history of CKD IV, dementia, depression, chronic anemia, hairy cell leukemia who presented [facility] ED 04/23/2025 after a fall with subsequent left hip pain. X-ray showed acute comminuted intertrochanteric fracture of left femur. ED discussed with Ortho who recommended medical admission with Ortho consult with plans for surgery. Patient underwent left hipcephalomedullary nail 04/24/2025. patient did have postoperative anemia. Postoperative course also complicated by acute CVA with right sided weakness andgarbled speech. Stroke call 04/26/[address] of the brain showed subacute strokein the occipital area of the left brain. Subsequent dysphagia and difficulty with speech/communication/garbled speech and was working with speech therapy with adjustments to his diet. Patient had elevated sodium during admission and was started on fluids, presume this is due to difficulty with free water intake,this improved with fluids and they were d/c'd and patient was taken off of home Lasix especially given normal EF and lack of fluid overload. On day of discharge patient noted to have hemoglobin of 6.7 (7.1 previous day , 8.4 the day before that however 1 day before that was 7.3 )however patient has been anemic since his surgery on 04/24 with hemoglobin fluctuating in the 7-8 range, there is no evidence of ongoing blood loss, suspect that the dip below 7 is due to blood draws, patient's chronic illnesses and kidney disease causing decreasedproduction as well as dilution with the fluids that patient was on. Patient transfused 1 unit because he reached the threshold but again do not think patient is actively bleeding and feel it is reasonable to transfer to SNF and this can be repeated in several days. PPI has been added for gastric protection given eliquis and aspirin. Discussed blood counts and sodium with family and they are comfortable with this plan. Also on day of discharge EKG obtained as patient appeared somewhat irregular on telemetry, this shows sinus arrhythmia which is consistent with previous EKGs and does not appear to have A-fib. On day of discharge patient very difficult historian (has been since stroke) with difficulty getting words out and answering questions, and daughter at bedside report he is actually much better than he had been and that he has continued to improve. They said that earlier he felt like he was going to fall to the right but patient was unable to expand upon that history and tended to say yes to any question asked and then at other times would answer differently to the same questions. Does not appear to have any acute complaints or clinical changes at this time. Pt stable for d/c to SNF DISCHARGE INSTRUCTIONS PLEASE READ *Please take this with you to your next doctors appointment* -Please follow-up with Orthopedic surgery upon discharge. Please call their office to schedule hospital follow-up appointment upon discharge. Per orthopedic recommendations can also consider x-rays and suture/staple removal atskilled facility versus Ortho office on 05/09/2025 (14 days postop) - dressing changes every other day as recommended by orthopedic surgery - will need to continue Eliquis twice daily for DVT prophylaxis as well as an 81mg aspirin per neurology recommendations for 2 weeks postop ( until 05/09) and then aspirin 81 mg twice daily for 2 weeks thereafter before going back down to once daily - Protonix has been added to your medication regimen as well to decrease stomachirritation given need for aspirin and blood thinner - your atorvastatin has been increased to 40 mg due to your stroke -Would recommend lab work ( CBC and BMP) to check your hemoglobin and sodium in 2 to 3 days -Recommend speech/language evaluation at [facility], was being seen by speech primarily for dysphagia during his hospitalization -Please follow-up with neurology upon discharge, please call Dr. Braswell's office upon discharge to schedule an appointment to establish care or establishwith a provider of your preference (ph [phone]) - you were started on Seroquel 25 mg twice daily to help with anxiety and agitation, ultimately this may be discontinued at the discretion of the [facility]pc facility -Please call your primary care provider's office upon discharge to schedule a hospital follow up within 1 week. -For any concerning signs or symptoms please call 911 or proceed to the nearest emergency department Allergies/Procedures Done in Hospital Allergies gabapentin Allergy (Verified 04/23/25 20:24) tremors tremors metoprolol (From Toprol XL) Allergy (Verified 04/23/25 20:24) PT UNSURE OF REACTION ramipril (From Altace) Allergy (Verified 04/23/25 20:24) PT UNSURE OF REACTION Procedures: 2-D Echocardiogram and - (Left hip cephalomedullary nail 04/24/2025 Dr. Miranda) Type of Care/Length of Stay Estimated LOS: Convalescent Care Less Than 30 days Type of Care Needed: Skilled Rehab Potential: Fair Prognosis: Fair Additional Orders/Day of Discharge Day of Discharge: 05/06/25 Dietary and Speech Recommendations Dietitian Recommendations/Changes: Continue regular per BILINGUAL MANAGER recommendations per texture/consistency. Continue 120ml EPHP TID with medpass. Will order vanilla fortified pudding TID with meals. PO will need to be established. Will monitor weight trends. Discharge Plan Admission Admit Date/Time: 04/23/25 21:57 Primary Reason for Your Visit: Fall with left hip fracture Attending Provider: Raven Ayala Primary Care Provider: Baron Espinoza Consulting Providers: Paty Morgan; Jose Miranda; Alfonso Albarado; Sonia Torres;Ara Nunez; Naima Bennett; Karli Rollins NP; Edita Gr; Vern Rao Instructions Patient Instructions: ED Fall Prevention Additional Instructions / Restrictions: DISCHARGE INSTRUCTIONS PLEASE READ *Please take this with you to your next doctors appointment* -Please follow-up with Orthopedic surgery upon discharge. Please call their office to schedule hospital follow-up appointment upon discharge. Per orthopedic recommendations can also consider x-rays and suture/staple removal at skilled facility versus Ortho office on 05/09/2025 (14 days postop) - dressing changes every other day as recommended by orthopedic surgery - will need to continue Eliquis twice daily for DVT prophylaxis as well as an 81mg aspirin per neurology recommendations for 2 weeks postop ( until 05/09) and then aspirin 81 mg twice daily for 2 weeks thereafter before going back down to once daily - Protonix has been added to your medication regimen as well to decrease stomachirritation given need for aspirin and blood thinner - your atorvastatin has been increased to 40 mg due to your stroke -Would recommend lab work ( CBC and BMP) to check your hemoglobin and sodium in 2 to 3 days -Recommend speech/language evaluation at [facility], was being seen by speech primarily for dysphagia during his hospitalization -Please follow-up with neurology upon discharge, please call Dr. Braswell's office upon discharge to schedule an appointment to establish care or establishwith a provider of your preference (ph [phone]) - you were started on Seroquel 25 mg twice daily to help with anxiety and agitation, ultimately this may be discontinued at the discretion of the [facility]pc facility -Please call your primary care provider's office upon discharge to schedule a hospital follow up within 1 week. -For any concerning signs or symptoms please call 911 or proceed to the nearest emergency department Discharge Orders/Prescriptions Prescriptions: New acetaminophen 500 mg Tablet 1,000 mg PO Q8 Qty: 0 0RF aspirin 81 mg Tablet,Chewable 81 mg PO BREAKFAST Qty: 0 0RF Rx Instructions: Take once daily and on 05/10 discontinue Eliquis and take 81 mg of aspirin twice daily for 14 days, decrease to once daily thereafter Ensure Plus High Protein 0.08 gram-1.5 kcal/mL Liquid 120 ml PO TIDCM Qty: 0 0RF quetiapine 25 mg Tablet 25 mg PO BID Qty: 0 0RF ipratropium-albuterol 0.5 mg-3 mg(2.5 mg base)/3 mL Solution For Nebulization 3 ml inhalation TID PRN (Reason: shortness of breath) Qty: 0 0RF pantoprazole 40 mg Tablet,Delayed Release (Dr/Ec) 40 mg PO DAILY Qty: 0 0RF Eliquis 5 mg Tablet 2.5 mg PO BID 3 Days Qty: 3 0RF Rx Instructions: Take through 05/09 then aspirin 81mg BID as detailed Continued cholecalciferol (vitamin D3) 25 mcg (1,000 unit) tablet 25 mcg PO DAILY doxazosin 1 MG tablet 1 mg PO QHS Patient Comments: heart allopurinol [Zyloprim] 300 MG tablet 300 mg PO DAILY paroxetine HCl 10 MG tablet 10 mg PO DAILY donepezil 5 MG tablet 10 mg PO QHS Patient Comments: TAKE 1 TABLET BY MOUTH DAILY AT BEDTIME. memantine 5 mg tablet 10 mg PO BID Changed atorvastatin 10 MG tablet 40 mg PO QHS Qty: 30 0RF Patient Comments: high cholesterol Discontinued ibuprofen 200 mg Capsule 200 mg PO Q4H PRN (Reason: Pain) losartan 50 mg tablet 50 mg PO DAILY Referrals / Follow Up: Canelo Braswell MD [Non-Staff -Ordering Privileges] - (-Please follow-up with neurology upon discharge, please call Dr. Braswell's office upon discharge to schedule an appointment to establish care or establish with a provider of your preference (ph [phone])) Jose Miranda MD [Med Staff - Active Staff] - Within 1 Week Baron Espinoza MD [Primary Care Provider] - Disposition Disposition (needs filled in before D/C Order can be placed): [facility] Facility 05/06/25 1495 <Electronically signed by Raven Ayala MD> Cosigner Signature (if applicable): CC: FLAME CUTTING MACHINE OPERATOR HELPERLavinia Bennett; FLAME CUTTING MACHINE OPERATOR HELPERLavinia Rollins; Dr. Paty Morgan MD; Dr. Alfonso Albarado DO; Dr. Ara Nunez MD; Dr. Sonia Torres MD; Dr. Vern Rao DO; Dr. Jose Miranda MD; Dr. Baron Espinoza MD; ALANA Starr ~ [facility] Work Phone: [phone]) 799-330306-19-2025 Discharge summary [facility] Medical Records Department [address] [place] [address] Discharge Summary 05/06/25 1345 MR#: [id number] Acct: [id number] Name: MICHAEL MULLINS Rep #:[id number] : 1940 85 From: Raven Ayala MD PCP: Dr. Baron Espinoza MD Status:ADM I N Location: [place] [address] Providers Date of Admission: 04/23/25 Date of Discharge: 05/06/25 Primary Care Physician: Dr. Baron Espinoza MD Consultations 04/24/25 00:28 Consult: Cardiology Routine Consulting Provider: Marcelle Klein Reason for Consult: fall w/ L hip fx, HFpEF 35%, needs preop assessment EMERGENT Consult: No MD Notified: Yes Date Notified: 04/23/25 Time Notified: 22:07 Method of Notification: Text Consult: Orthopedics Routine Consulting Provider: Jose Miranda Reason for Consult: Fall, L hip fx EMERGENT Consult: No MD Notified: Yes Date Notified: 04/23/25 Time Notified: 22:07 Method of Notification: ED Physician Initiated 05/03/25 11:39 Consult: Hospice / Palliative Care Routine Consulting Provider: [facility] Reason for Consult: Goals of care EMERGENT Consult: No MD Notified: Yes Date Notified: 05/03/25 Time Notified: 11:39 Method of Notification: Answering Service Comments:: paliative Reason For Visit: FALL, L HIP FRACTURE Diagnosis Discharge Diagnosis (1) Acute ischemic stroke: Status: Acute Code(s): I63.9 - Cerebral infarction, unspecified (2) Intertrochanteric fracture of left femur: Status: Acute Code(s): S72.142A - Displaced intertrochanteric fracture of left femur, initial encounterfor closed fracture Plan #Intertrochanteric fx of left femur -Status post left hip cephalomedullary nail postop day 11 #Subacute occipital infarct, left # CKD stage IV #acute on Chronic anemia #Dementia #Depression/anxiety Medications at Discharge Home Medications doxazosin 1 mg tablet 1 mg PO QHS prostate 11/20/15 donepezil 5 mg tablet 10 mg PO QHS memory 11/28/17 paroxetine HCl 10 mg tablet 10 mg PO DAILY anxiety 11/28/17 allopurinol 300 mg tablet (Zyloprim) 300 mg PO DAILY GOUT 04/30/18 memantine 5 mg tablet 10 mg PO BID memory 05/26/21 cholecalciferol (vitamin D3) 25 mcg (1,000 unit) tablet 25 mcg PO DAILY ordered 05/14/23 acetaminophen 500 mg tablet 1,000 mg (2 x 500 mg) PO Q8 #0 tabs 05/06/25 apixaban 5 mg tablet (Eliquis) 2.5 mg (1/2 x 5 mg) PO BID 3 days #3 tabs 05/06/25 aspirin 81 mg chewable tablet 81 mg PO BREAKFAST #0 tabs 05/06/25 atorvastatin 10 mg tablet 40 mg (4 x 10 mg) PO QHS CHOLESTEROL #30 tabs 05/06/25 food supplemt, lactose-reduced 0.08 gram-1.5 kcal/mL oral liquid (Ensure Plus High Protein) 120 ml PO TIDCM #0 mL 05/06/25 ipratropium 0.5 mg-albuterol 3 mg (2.5 mg base)/3 mL nebulization soln 3 ml inhalation TID PRN shortness of breath #0 mL 05/06/25 pantoprazole 40 mg tablet,delayed release 40 mg PO DAILY #0 tabs 05/06/25 quetiapine 25 mg tablet 25 mg PO BID #0 tabs 05/06/25 Hospital Course Operations - (Left hip cephalomedullary nail 04/24/[address] Miranda) Procedures Transthoracic echo Summary of Care Provided Minutes Spent on Discharge: 40 Hospital Course: 85-year-old male history of CKD IV, dementia, depression, chronic anemia, hairy cell leukemia who presented [facility] ED 04/23/2025 after a fall with subsequent left hip pain. X-ray showed acute comminuted intertrochanteric fracture of left femur. ED discussed with Ortho who recommended medical admission with Ortho consult with plans for surgery. Patient underwent left hipcephalomedullary nail 04/24/2025. patient did have postoperative anemia. Postoperative course also complicated by acute CVA with right sided weakness andgarbled speech. Stroke call 04/26/[address] of the brain showed subacute strokein the occipital area of the left brain. Subsequent dysphagia and difficulty with speech/communication/garbled speech and was working with speech therapy with adjustments to his diet. Patient had elevated sodium during admission and was started on fluids, presume this is due to difficulty with free water intake,this improved with fluids and they were d/c'd and patient was taken off of home Lasix especially given normal EF and lack of fluid overload. On day of discharge patient noted to have hemoglobin of 6.7 (7.1 previous day , 8.4 the day before that however 1 day before that was 7.3 )however patient has been anemic since his surgery on 04/24 with hemoglobin fluctuating in the 7-8 range, there is no evidence of ongoing blood loss, suspect that the dip below 7 is due to blood draws, patient's chronic illnesses and kidney disease causing decreasedproduction as well as dilution with the fluids that patient was on. Patient transfused 1 unit because he reached the threshold but again do not think patient is actively bleeding and feel it is reasonable to transfer to SNF and this can be repeated in several days. PPI has been added for gastric protection given eliquis and aspirin. Discussed blood counts and sodium with family and they are comfortable with this plan. Also on day of discharge EKG obtained as patient appeared somewhat irregular on telemetry, this showssinus arrhythmia which is consistent with previous EKGs and does not appear to have A- fib. On day of discharge patient very difficult historian (has been since stroke) with difficulty getting words out and answering questions, and daughter at bedside report he is actually much better than he had been and that he has continued to improve. They said that earlier he felt like he was going to fall to the right but patient was unable to expand upon that history and tended to say yes to any question asked and then at other times would answer differently to the same questions. Does not appear to have any acute complaints or clinical changes at this time. Pt stable for d/c to SNF DISCHARGE INSTRUCTIONS PLEASE READ *Please take this with you to your next doctors appointment* -Please follow-up with Orthopedic surgery upon discharge. Please call their office to schedule hospital follow-up appointment upon discharge. Per orthopedic recommendations can also consider x-rays and suture/staple removal atskilled facility versus Ortho office on 05/09/2025 (14 days postop) - dressing changes every other day as recommended by orthopedic surgery - will need to continue Eliquis twice daily for DVT prophylaxis as well as an 81mg aspirin per neurology recommendations for 2 weeks postop ( until 05/09) and then aspirin 81 mg twice daily for 2 weeks thereafter before going back down to once daily - Protonix has been added to your medication regimen as well to decrease stomachirritation given need for aspirin and blood thinner - your atorvastatin has been increased to 40 mg due to your stroke -Would recommend lab work ( CBC and BMP) to check your hemoglobin and sodium in 2 to 3 days -[facility], was being seen by speech primarily for dysphagia during his hospitalization -Please follow-up with neurology upon discharge, please call Dr. Braswell's office upon discharge toschedule an appointment to establish care or establishwith a provider of your preference ) - you were started on Seroquel 25 mg twice daily to help with anxiety and agitation, ultimately this may be discontinued at the discretion of the [facility] facility -Please call your primary care provider's office upon discharge to schedule a hospital follow up within 1 week. -For any concerning signs or symptoms please call 911 or proceed to the nearest emergency department Physical Exam Narrative General: Patient is awake and alert today however unable to answer orientation questions, garbled speech with word finding difficulty HEENT: Atraumatic Eyes: Anicteric, normal conjunctiva, extraocular movements grossly intact Neck: Supple Respiratory: Clear to auscultation bilaterally, normal respiratory effort Cardiovascular: Regular rate, occasional extra beats, EKG confirmed sinus arrhythmia GI: Soft, did not appear tender while palpating, nondistended Extremities: No edema Musculoskeletal: Is currently moving all extremities with improving strength in right side, difficulty moving left lower extremity due to recent hip fracture surgery Neuro: Garbled speech, word finding difficulty, difficulties with communication Skin: No rashes appreciated Psych: Cooperative Weight / BMI Weight Weight: 65.6 kg Body Mass Index (BMI) 22.6 ABG / Lab / Microbiology Data 05/06/25 05:28 05/06/25 05:28 Laboratory: Laboratory Results - last 24 hr 05/06/25 05:28: WBC 8.9, RBC 2.05 L, Hgb 6.7 L, Hct 20.2 L, MCV 98.5 H, MCH 32.7H, MCHC 33.2, RDW Std Deviation 56.8 H, RDW Coeff of Eduarda 17.4 H, Plt Count 341, MPV 11.5, Immature Gran % (Auto) 0.400,Neut % (Auto) 76.4 H, Lymph % (Auto) 14.1 L, Parker % (Auto) 6.3, Eos % (Auto) 2.7, Baso % (Auto) 0.1, Absolute Neuts (auto) 6.8, Absolute Lymphs (auto) 1.26, Nucleated RBC % 2.5, Sodium 146 H, Potassium 3.4, Chloride 114 H, Carbon Dioxide 21.0, Anion Gap 11, BUN 57 H, Creatinine 2.37 H, Estim Creat Clear Calc 21.31 L, Est GFR (MDRD) Non-Af 27 L, BUN/Creatinine Ratio 23.9 H, Glucose 92, Calcium 7.5L 05/06/25 09:41: Blood Type O POSITIVE, Antibody Screen NEGATIVE, Crossmatch See Detail D/C Instructions DC O2, CPAP, BIPAP Needs Home O2 Discharge instructions: Yes Type of respiratory needs?: Oxygen Oxygen frequency: ContinuousContinuous oxygen liters per minute: 2 DC home with Oxygen: Yes Home O2 MD Review: I have reviewed the oxygen testing, and the patient qualifies for home oxygen equipment and portability. The patient is mobile in the home and the community. Meaningful Use Info Meaningful Use Meaningful Use Diagnoses (Choose all that apply): Ischemic CVA CVA Therapy Assessed for PT,OT and/or ST?: Yes Ischemic Stroke Antithrombotic order at d/c?: Yes Dx of Atrial fib/flutter?: No Statin Dosing Therapy Reference: STATIN DOSE THERAPY REFERENCE: * Patients > 75 years receive moderate or high dose statin therapy. * Patients 75 years or YOUNGER should receive HIGH intensity statin dose unless contraindicated. You will be required to document reason for non-treatment if statin daily dose does not meet guidelines. HIGH DOSE STATIN THERAPY DAILY Atorvastatin > than or = to 40 mg Rosuvastatin > than or = to 20 mg Amlodipine + Atorvastatin > than or = to 2.5/40 mg Ezetimibe + Simvastatin 10/80 mg Simvastatin 80mg Statins at discharge?: Yes Primary Dx Acute Ischemic CVA?: Yes Discharge Plan Admission Admit Date/Time: 04/23/25 21:57 Primary Reason for Your Visit: Fall with left hip fracture Attending Provider: Raven Ayala Primary Care Provider: Baron Espinoza Consulting Providers: Paty Morgan; Jose Miranda; Alfonso Albarado; Sonia Torres;Ara Nunez; Naima Bennett; Karli Rollins NP; Edita Gr; Vern Rao Instructions Patient Instructions: ED Fall Prevention Additional Instructions / Restrictions: DISCHARGE INSTRUCTIONS PLEASE READ *Please take this with you to your next doctors appointment* -Please follow-up with Orthopedic surgery upon discharge. Please call their office to schedule hospital follow-up appointment upon discharge. Per orthopedic recommendations can also consider x-rays and suture/staple removal atskilled facility versus Ortho office on 05/09/2025 (14 days postop) - dressing changes every other day as recommended by orthopedic surgery - will need to continue Eliquis twice daily for DVT prophylaxis as well as an 81mg aspirin per neurology recommendations for 2 weeks postop ( until 05/09) and then aspirin 81 mg twice daily for 2 weeks thereafter before going back down to once daily - Protonix has been added to your medication regimen as well to decrease stomachirritation given need for aspirin and blood thinner - your atorvastatin has been increased to 40 mg due to your stroke -Would recommend lab work ( CBC and BMP) to check your hemoglobin and sodium in 2 to 3 days -Recommend speech/language evaluation at [facility] facility, was being seen by speech primarily for dysphagia during his hospitalization -Please follow-up with neurology upon discharge, please call Dr. Braswell's office upon discharge toschedule an appointment to establish care or establishwith a provider of your preference (ph [phone]) - you were started on Seroquel 25 mg twice daily to help with anxiety and agitation, ultimately this may be discontinued at the discretion of the [facility] facility -Please call your primary care provider's office upon discharge to schedule a hospital follow up within 1 week. -For any concerning signs or symptoms please call 911 or proceed to the nearest emergency department Discharge Orders/Prescriptions Prescriptions: New acetaminophen 500 mg Tablet 1,000 mg PO Q8 Qty: 0 0RF aspirin 81 mg Tablet,Chewable 81 mg PO BREAKFAST Qty: 0 0RF Rx Instructions: Take once daily and on 05/10 discontinue Eliquis and take 81 mg of aspirin twice daily for 14 days, decrease to once daily thereafter Ensure Plus High Protein 0.08 gram-1.5 kcal/mL Liquid 120 ml PO TIDCM Qty: 0 0RF quetiapine 25 mg Tablet 25 mg PO BID Qty: 0 0RF ipratropium-albuterol 0.5 mg-3 mg(2.5 mg base)/3 mL Solution For Nebulization 3 ml inhalation TID PRN (Reason: shortness of breath) Qty: 0 0RF pantoprazole 40 mg Tablet,Delayed Release (Dr/Ec) 40 mg PO DAILY Qty: 0 0RF Eliquis 5 mg Tablet 2.5 mg PO BID 3 Days Qty: 3 0RF Rx Instructions: Take through 05/09 then aspirin 81mg BID as detailed Continued cholecalciferol (vitamin D3) 25 mcg (1,000 unit) tablet 25 mcg PO DAILY doxazosin 1 MG tablet 1 mg PO QHS Patient Comments: heart allopurinol [Zyloprim] 300 MG tablet 300 mg PO DAILY paroxetine HCl 10 MG tablet 10 mg PO DAILY donepezil 5 MG tablet 10 mg PO QHS Patient Comments: TAKE 1 TABLET BY MOUTH DAILY AT BEDTIME. memantine 5 mg tablet 10 mg PO BID Changed atorvastatin 10 MG tablet 40 mg PO QHS Qty: 30 0RF Patient Comments: high cholesterol Discontinued ibuprofen 200 mg Capsule 200 mg PO Q4H PRN (Reason: Pain) losartan 50 mg tablet 50 mg PO DAILY Referrals / Follow Up: Canelo Braswell MD [Non-Staff -Ordering Privileges] - (-Please follow-up with neurology upon discharge, please call Dr. Braswell's office upon discharge to schedule an appointment to establish care or establish with a provider of your preference (ph [phone])) Jose Miranda MD [Med Staff - Active Staff] - Within 1 Week Baron Espinoza MD [Primary Care Provider] - Disposition Disposition (needs filled in before D/C Order can be placed): [facility] Charges/Coding Visit Charges Inpatient E&M: 48467 Disch Hosp >30min 05/06/25 1351 Cosigner Signature (if applicable): CC: Dr. Raven Ayala MD; Dr. Baron Espinoza MD~ Signed [facility]06-19-2025 Discharge summary [facility] Medical Records Department [address] [place] [address] Transfer to [facility] MR#: [id number] Acct: [id number] Name: MICHAEL MULLINS Rep #:[id number] : 1940 85 From: Raven Ayala MD PCP: Dr. Baron Espinoza MD Status:ADM I N Certification of patient admission REQUIRED AT TIME OF ADMISSION. I CERTIFY THAT POST-HOSPITAL ECF SERVICES ARE REQUIRED TO BE GIVEN ON AN IN-PATIENT BASIS BECAUSE OF THE ABOVE NAMED PATIENT'S NEED FOR SHELTER CARE ON A CONTINUING BASIS FOR THE CONDITION(S) FOR WHICH HE/SHE WAS RECEIVINGIN-PATIENT HOSPITAL SERVICES PRIOR TO HIS/HER TRANSFER TO THE [facility]. 05/06/25 1345 Diet Diet Order/Speech Therapy: INPATIENT Hospital Diet / Speech Therapy Order(s) 05/04/25 10:04 Diet: Regular - General Food consistency:: Pureed Liquid Consistency:: [place]/Mildly Thick Type of Dietary Supplement:: [place]. pudding w/meals Diet Comments: TOTAL FEED BY STAFF, LIQUID BY TSP ONLY, MOIST PUREES, MONITORSPO2 Routine Orders/Code Status Suppository Type: Dulcolax 10mg Suppository Frequency: Daily PRN Routine Lab Work: CBC (2-3 days, hemaglobin) and BMP (2-3 days sodium) Code Status: Full Code DC O2, CPAP, BIPAP needs Home O2 Discharge instructions: Yes Type of respiratory needs?: Oxygen Oxygen frequency: ContinuousContinuous oxygen liters per minute: 2 Wound(s) LEFT HIP: Wound Type: Surgical Incision Left Knee: Wound Type: Surgical Incision left thigh: Wound Type: Surgical Incision left upper hip: Wound Type: Surgical Incision L Elbow: Wound Type: Skin Tear Therapies Weight Bearing: Weight bearing as tolerated Extremity Affected:: Left Lower Physical Therapy: Eval and Treat Occupational Therapy: Eval and Treat Speech Therapy: Eval and Treat Problem/Diagnosis (1) Intertrochanteric fracture of left femur: Status: Acute Code(s): S72.142A - Displaced intertrochanteric fracture of left femur, initial encounterfor closed fracture Plan #Intertrochanteric fx of left femur -Status post left hip cephalomedullary nail postop day 11 #Subacute occipital infarct, left # CKD stage IV #acute on Chronic anemia #Dementia #Depression/anxiety 85-year-old male history of CKD IV, dementia, depression, chronic anemia, hairy cell leukemia who presented [facility] ED 04/23/2025 after a fall with subsequent left hip pain. X-ray showed acute comminuted intertrochanteric fracture of left femur. ED discussed with Ortho who recommended medical admission with Ortho consult with plans for surgery. Patient underwent left hipcephalomedullary nail 04/24/2025. patient did have postoperative anemia. Postoperative course also complicated by acute CVA with right sided weakness andgarbled speech. Stroke call 04/26/[address] of the brain showed subacute strokein the occipital area of the left brain. Subsequent dysphagia and difficulty with speech/communication/garbled speech and was working with speech therapy with adjustments to his diet. Patient had elevated sodium during admission and was started on fluids, presume this is due to difficulty with free water intake,this improved with fluids and they were d/c'd and patient was taken off of home Lasix especially given normal EF and lack of fluid overload. On day of discharge patient noted to have hemoglobin of 6.7 (7.1 previous day , 8.4 the day before that however 1 day before that was 7.3 )however patient has been anemic since his surgery on 04/24 with hemoglobin fluctuating in the 7-8 range, there is no evidence of ongoing blood loss, suspect that the dip below 7 is due to blood draws, patient's chronic illnesses and kidney disease causing decreasedproduction as well as dilution with the fluids that patient was on. Patient transfused 1 unit because he reached the threshold but again do not think patient is actively bleeding and feel it is reasonable to transfer to SNF and this can be repeated in several days. PPI has been added for gastric protection given eliquis and aspirin. Discussed blood counts and sodium with family and they are comfortable with this plan. Also on day of discharge EKG obtained as patient appeared somewhat irregular on telemetry, this showssinus arrhythmia which is consistent with previous EKGs and does not appear to have A- fib. On day of discharge patient very difficult historian (has been since stroke) with difficulty getting words out and answering questions, and daughter at bedside report he is actually much better than he had been and that he has continued to improve. They said that earlier he felt like he was going to fall to the right but patient was unable to expand upon that history and tended to say yes to any question asked and then at other times would answer differently to the same questions. Does not appear to have any acute complaints or clinical changes at this time. Pt stable for d/c to SNF DISCHARGE INSTRUCTIONS PLEASE READ *Please take this with you to your next doctors appointment* -Please follow-up with Orthopedic surgery upon discharge. Please call their office to schedule hospital follow-up appointment upon discharge. Per orthopedic recommendations can also consider x-rays and suture/staple removal atskilled facility versus Ortho office on 05/09/2025 (14 days postop) - dressing changes every other day as recommended by orthopedic surgery - will need to continue Eliquis twice daily for DVT prophylaxis as well as an 81mg aspirin per neurology recommendations for 2 weeks postop ( until 05/09) and then aspirin 81 mg twice daily for 2 weeks thereafter before going back down to once daily - Protonix has been added to your medication regimen as well to decrease stomachirritation given need for aspirin and blood thinner - your atorvastatin has been increased to 40 mg due to your stroke -Would recommend lab work ( CBC and BMP) to check your hemoglobin and sodium in 2 to 3 days -Recommend speech/language evaluation at [facility] facility, was being seen by speech primarily for dysphagia during his hospitalization -Please follow-up with neurology upon discharge, please call Dr. Braswell's office upon discharge toschedule an appointment to establish care or establishwith a provider of your preference (ph [phone]) - you were started on Seroquel 25 mg twice daily to help with anxiety and agitation, ultimately this may be discontinued at the discretion of the [facility] facility -Please call your primary care provider's office upon discharge to schedule a hospital follow up within 1 week. -For any concerning signs or symptoms please call 911 or proceed to the nearest emergency department Allergies/Procedures Done in Hospital Allergies gabapentin Allergy (Verified 04/23/25 20:24) tremors tremors metoprolol (From Toprol XL) Allergy (Verified 04/23/25 20:24) PT UNSURE OF REACTION ramipril (From Altace) Allergy (Verified 04/23/25 20:24) PT UNSURE OF REACTION Procedures: 2-D Echocardiogram and - (Left hip cephalomedullary nail 04/24/2025 Dr. Miranda) Type of Care/Length of Stay Estimated LOS: Convalescent Care Less Than 30 days Type of Care Needed: Skilled Rehab Potential: Fair Prognosis: Fair Additional Orders/Day of Discharge Day of Discharge: 05/06/25 Dietary and Speech Recommendations Dietitian Recommendations/Changes: Continue regular per BILINGUAL MANAGER recommendations per texture/consistency. Continue 120ml EPHP TID with medpass. Will order vanilla fortified pudding TID with meals. PO will need to be established. Will monitor weight trends. Discharge Plan Admission Admit Date/Time: 04/23/25 21:57 Primary Reason for Your Visit: Fall with left hip fracture Attending Provider: Raven Ayala Primary Care Provider: Baron Espinoza Consulting Providers: Paty Morgan; Jose Miranda; Alfonso Albarado; Sonia Torres;Ara Nunez; Naima Bennett; Karli Rollins FLAME CUTTING MACHINE OPERATOR HELPER; Edita Gr; Vern Rao Instructions Patient Instructions: ED Fall Prevention Additional Instructions / Restrictions: DISCHARGE INSTRUCTIONS PLEASE READ *Please take this with you to your next doctors appointment* -Please follow-up with Orthopedic surgery upon discharge. Please call their office to schedule hospital follow-up appointment upon discharge. Per orthopedic recommendations can also consider x-rays and suture/staple removal at skilled facility versus Ortho office on 05/09/2025 (14 days postop) - dressing changes every other day as recommended by orthopedic surgery - will need to continue Eliquis twice daily for DVT prophylaxis as well as an 81mg aspirin per neurology recommendations for 2 weeks postop ( until 05/09) and then aspirin 81 mg twice daily for 2 weeks thereafter before going back down to once daily - Protonix has been added to your medication regimen as well to decrease stomachirritation given need for aspirin and blood thinner - your atorvastatin has been increased to 40 mg due to your stroke -Would recommend lab work ( CBC and BMP) to check your hemoglobin and sodium in 2 to 3 days -Recommend speech/language evaluation at [facility] facility, was being seen by speech primarily for dysphagia during his hospitalization -Please follow-up with neurology upon discharge, please call Dr. Braswell's office upon discharge toschedule an appointment to establish care or establishwith a provider of your preference ) - you were started on Seroquel 25 mg twice daily to help with anxiety and agitation, ultimately this may be discontinued at the discretion of the [facility] facility -Please call your primary care provider's office upon discharge to schedule a hospital follow up within 1 week. -For any concerning signs or symptoms please call 911 or proceed to the nearest emergency department Discharge Orders/Prescriptions Prescriptions: New acetaminophen 500 mg Tablet 1,000 mg PO Q8 Qty: 0 0RF aspirin 81 mg Tablet,Chewable 81 mg PO BREAKFAST Qty: 0 0RF Rx Instructions: Take once daily and on 05/10 discontinue Eliquis and take 81 mg of aspirin twice daily for 14 days, decrease to once daily thereafter Ensure Plus High Protein 0.08 gram-1.5 kcal/mL Liquid 120 ml PO TIDCM Qty: 0 0RF quetiapine 25 mg Tablet 25 mg PO BID Qty: 0 0RF ipratropium-albuterol 0.5 mg-3 mg(2.5 mg base)/3 mL Solution For Nebulization 3 ml inhalation TID PRN (Reason: shortness of breath) Qty: 0 0RF pantoprazole 40 mg Tablet,Delayed Release (Dr/Ec) 40 mg PO DAILY Qty: 0 0RF Eliquis 5 mg Tablet 2.5 mg PO BID 3 Days Qty: 3 0RF Rx Instructions: Take through 05/09 then aspirin 81mg BID as detailed Continued cholecalciferol (vitamin D3) 25 mcg (1,000 unit) tablet 25 mcg PO DAILY doxazosin 1 MG tablet 1 mg PO QHS Patient Comments: heart allopurinol [Zyloprim] 300 MG tablet 300 mg PO DAILY paroxetine HCl 10 MG tablet 10 mg PO DAILY donepezil 5 MG tablet 10 mg PO QHS Patient Comments: TAKE 1 TABLET BY MOUTH DAILY AT BEDTIME. memantine 5 mg tablet 10 mg PO BID Changed atorvastatin 10 MG tablet 40 mg PO QHS Qty: 30 0RF Patient Comments: high cholesterol Discontinued ibuprofen 200 mg Capsule 200 mg PO Q4H PRN (Reason: Pain) losartan 50 mg tablet 50 mg PO DAILY Referrals / Follow Up: Canelo Braswell MD [Non-Staff -Ordering Privileges] - (-Please follow-up with neurology upon discharge, please call Dr. Braswell's office upon discharge to schedule an appointment to establish care or establish with a provider of your preference )) Jose Miranda MD [Med Staff - Active Staff] - Within 1 Week Baron Espinoza MD [Primary Care Provider] - Disposition Disposition (needs filled in before D/C Order can be placed): [facility] 05/06/25 1345 Cosigner Signature (if applicable): CC: FLAME CUTTING MACHINE OPERATOR HELPER-C Naima Bennett; FLAME CUTTING MACHINE OPERATOR HELPER-C Karli Rollins; Dr. Paty Morgan MD; Dr. Alfonso Albarado DO; Dr.Jennifer Mayra MD; Dr. Sonia Torres MD; Dr. Vern Rao DO; Dr. Jose Miranda MD; Dr. Baron Espinoza MD; ALANA Starr ~ [facility]06-19-2025 [facility]06-18-2025 Progress note Author Raven Ayala [facility] Note Date/Time May 05, 2025 7:42 pm [facility] Medical Records Department [address] [place] [address] Progress Note - Hospitalist 05/05/251932 MR#: [id number] Acct: [id number] Name: MICHAEL MULLINS Rep #:[id number] : 1940 85 From: Raven Ayala MD PCP: Dr. Baron Espinoza MD Status:ADM I N Location: [place] [address] Reason for Visit Reason for Visit: Diagnoses Fracture of unspecified part of neck of left femur, initial encounter for closedfracture (04/23/25) Displaced intertrochanteric fracture of left femur, initial encounter for closedfracture (04/23/25) Unspecified fall, initial encounter (04/23/25) Subjective Subjective Per family this morning patient was doing very well and was up and moving aroundwith therapy and was awake and alert and interactive, after therapy he got the gabapentin and Tylenol and has been very tired and will wake up but falls back asleep quickly, also having some jerking movements at times. Patient would wakeup but was somewhat nonsensical with questions. Family endorses his fatigue andtiredness was progressive after the medications did not happen suddenly with no sudden focal complaints Objective Data Objective Data Vital Signs: Vital Signs Temp Pulse Resp BP Pulse Ox O2 Del Method O2 Flow Rate 98.4 F 86 18 101/58 L 91 Nasal Cannula 2 05/05/25 09:02 05/05/25 15:00 05/05/25 15:00 05/05/25 09:02 05/05/25 10:21 05/05/25 14:00 05/05/25 14:00 Oxygen Flow Rate (L/min) 2 Oxygen Delivery Method Nasal Cannula Weight: 81.6 kg Body Mass Index (BMI) 28.2 Intake & Output: Intake and Output for Last 24 Hours 05/03/25 05/04/25 05/05/25 23:59 23:59 23:59 Intake Total 2071 / 2071 1086 / 1086 1708 / 1708 Output Total 2950 / 2950 1650 / 1650 450 / 450 Balance -879 / -879 -564 / -564 1258 / 1258 Lab / Micro Data 05/05/25 06:21 05/05/25 06:21 Labs: Laboratory Results - last 24 hr 05/04/25 20:54: POC Glucose 147 H 05/05/25 06:21: WBC 12.1 H, RBC 2.18 L, Hgb 7.1 L, Hct 20.9 L, MCV 95.9 H, MCH 32.6 H, MCHC 34.0, RDW Std Deviation 53.8 H, RDW Coeff of Eduarda 17.0 H, Plt Count 318, MPV 11.8, Immature Gran % (Auto) 0.800, Neut % (Auto) 77.8 H, Lymph % (Auto) 13.0 L, Parker % (Auto) 5.7, Eos % (Auto) 2.5, Baso % (Auto) 0.2, Absolute Neuts (auto) 9.4 H, Absolute Lymphs (auto) 1.57, Nucleated RBC % 4.4, Sodium 144, Potassium 3.0 L, Chloride 112 H, Carbon Dioxide 20.1 L, Anion Gap 12, BUN 59 H, Creatinine 2.43 H, Estim Creat Clear Calc 23.10 L, Est GFR (MDRD) Non-Af 26 L, BUN/Creatinine Ratio 24.2 H, Glucose 117 H, Calcium 7.5 L, Total Bilirubin1.08, AST 82 H, ALT 34, Alkaline Phosphatase 107, Total Protein 4.8 L, Albumin 2.6 L, Globulin 2.2, Albumin/Globulin Ratio 1.2 05/05/25 06:28: POC Glucose 118 H Physical Exam Narrative General: Will wake up but falls back asleep quickly HEENT: Atraumatic, normocephalic Eyes: Anicteric, normal conjunctiva, extraocular movements grossly intact Neck: Supple Respiratory: No significant wheezes or rhonchi, normal respiratory effort Cardiovascular: Regular rate and rhythm GI: Soft, nontender, nondistended Extremities: No edema Musculoskeletal: Moving all extremities in bed Neuro: Some decreased strength right compared to left per but patient not particularly waking up to participate in exam, does have what occasionally appears to be myoclonic jerking Skin: No rashes appreciated Psych: Attempts to be cooperative but falls back asleep quickly Assessment & Plan Assessment/Plan (1) Intertrochanteric fracture of left femur: PLAN: Plan #Intertrochanteric fx of left femur -Status post left hip cephalomedullary nail postop day 11 - Plan is for SNF once medically stable - Will need to follow-up with Ortho on discharge #AMS -Suspect this is due to the gabapentin with patient's significant decrease in kidney function given the direct correlation between patient receiving the gabapentin and the progressive decline in mental status throughout the day with accompanying myoclonic jerking - Discontinue gabapentin - Continue to monitor #Subacute occipital infarct - Continue aspirin and statin - Patient go to SNF for therapy, likely tomorrow if mental status improves and labs/vitally stable # CKD stage IV -Appears to be at baseline -Avoid nephrotoxic agents -Daily BMPs # Chronic anemia - Suspect multifactorial with component of anemia of chronic disease given kidney function - No evidence of ongoing blood loss #Hypokalemia -Replace -Repeat in the AM #Dementia -Supportive care -Continue home medications #Depression/anxiety -Continue home medications #DVT ppx: hep subcu Raven Ayala MD Charges/Coding Visit Charges Inpatient E&M: 16371 Subs Hosp L2 NIHSS NIHSS Nursing Documentation NIHSS Nursing Documentation: NIHSS: Ischemic Stroke/TIA Start: 04/26/25 10:12 Freq: Q4H Status: Complete Protocol: Activity Type Activity Date Activity User E-sign Co-sign Detail Recorded Client Recorded Date Recorded By Document 04/29/25 12:00 [id number] 04/29/25 12:36 04/29/25 12:00 NIH Stroke Scale [NIHSS] A score of 0 is "normal" or asymptomatic . Total possible score is 42. Inpatient: RN or Physician to activate a stroke alert for onset of new stroke symptoms or with NIHSS increase >/= 3 points. Following change in neurological status, NIHSS will be performed per physician order or more frequently PRN. -1a. Level of Consciousness 0 - Alert; keenly responsive -1b. LOC Questions 2 - Answers NEITHER question correctly -1c. LOC Commands 0 - Performs BOTH tasks correctly -2. Best Gaze 0 - Normal -3. Visual 0 - No visual loss -4. Facial Palsy 0 - Normal symmetrical movements -5a. Left Arm 2 - Some effort against gravity; -5b. Right Arm 1 - Drift; arm drifts downward but doesn?t hit the bed -6a. Left Leg UN - Amputation or joint fusion, explain : -'UN' explanation Recent hip fx -6b. Right Leg 2 - Some effort against gravity; -7. Limb Ataxia UN - Amputation or joint fusion, explain -'UN' explanation LFT HIP FX, PT NOT COOPERATING BUE ASESSMENT -8. Sensory 0 - Normal; no sensory loss -9. Best Language 2 - Severe aphasia; -10. Dysarthria 1 = Mild-to- moderate dysarthria; -11. Extinction and Inattention 0 - No abnormality -Total 10 Query Text:A score of 0 is "normal" or asymptomatic. Total possible score is 42 . ED: Notify Physician for NIHSS increase by > / = 3 points. Inpatient: RN or Physician to activate a stroke alert for NIHSS increase of > / = 3 points. Coma Scale [Assess] -Eye Opening Spontaneous -Motor Obeys Commands -Verbal Confused [Total] -Coma Scale Total 14 05/05/251941 <Electronically signed by Raven Ayala MD> Cosigner Signature (if applicable): CC: ~ Signed [facility] Work Phone: [phone]) 688-749206-18-2025 Progress note [facility] Medical Records Department [address] [place] [address] Progress Note - Hospitalist 05/05/251932 MR#: [id number] Acct: [id number] Name: MICHAEL MULLINS Rep #:[id number] : 1940 85 From: Raven Ayala MD PCP: Dr. Baron Espinoza MD Status:ADM I N Location: [place] [address] Reason for Visit Reason for Visit: Diagnoses Fracture of unspecified part of neck of left femur, initial encounter for closedfracture (04/23/25) Displaced intertrochanteric fracture of left femur, initial encounter for closedfracture (04/23/25) Unspecified fall, initial encounter (04/23/25) Subjective Subjective Per family this morning patient was doing very well and was up and moving aroundwith therapy and was awake and alert and interactive, after therapy he got the gabapentin and Tylenol and has been verytired and will wake up but falls back asleep quickly, also having some jerking movements at times. Patient would wakeup but was somewhat nonsensical with questions. Family endorses his fatigue andtiredness was progressive after the medications did not happen suddenly with no sudden focal complaints Objective Data Objective Data Vital Signs: Vital Signs Temp Pulse Resp BP Pulse Ox O2 Del Method O2 Flow Rate 98.4 F 86 18 101/58 L 91 Nasal Cannula 2 05/05/25 09:02 05/05/25 15:00 05/05/25 15:00 05/05/25 09:02 05/05/25 10:21 05/05/25 14:00 05/05/25 14:00 Oxygen Flow Rate (L/min) 2 Oxygen Delivery Method Nasal Cannula Weight: 81.6 kg Body Mass Index (BMI) 28.2 Intake & Output: Intake and Output for Last 24 Hours 05/03/25 05/04/25 05/05/25 23:59 23:59 23:59 Intake Total 2071 / 2071 1086 / 1086 1708 / 1708 Output Total 2950 / 2950 1650 / 1650 450 / 450 Balance -879 / -879 -564 / -564 1258 / 1258 Lab / Micro Data 05/05/25 06:21 05/05/25 06:21 Labs: Laboratory Results - last 24 hr 05/04/25 20:54: POC Glucose 147 H 05/05/25 06:21: WBC 12.1 H, RBC 2.18 L, Hgb 7.1 L, Hct 20.9 L, MCV 95.9 H, MCH 32.6 H, MCHC 34.0, RDW Std Deviation 53.8 H, RDW Coeff of Eduarda 17.0 H, Plt Count 318, MPV 11.8, Immature Gran % (Auto) 0.800, Neut % (Auto) 77.8 H, Lymph % (Auto) 13.0 L, Parker % (Auto) 5.7, Eos % (Auto) 2.5, Baso % (Auto)0.2, Absolute Neuts (auto) 9.4 H, Absolute Lymphs (auto) 1.57, Nucleated RBC % 4.4, Sodium 144, Potassium 3.0 L, Chloride 112 H, Carbon Dioxide 20.1 L, Anion Gap 12, BUN 59 H, Creatinine 2.43 H, Estim Creat Clear Calc 23.10 L, Est GFR (MDRD) Non-Af 26 L, BUN/Creatinine Ratio 24.2 H, Glucose 117 H, Calcium 7.5 L, Total Bilirubin1.08, AST 82 H, ALT 34, Alkaline Phosphatase 107, Total Protein 4.8 L, Albumin 2.6 L, Globulin 2.2, Albumin/Globulin Ratio 1.2 05/05/25 06:28: POC Glucose 118 H Physical Exam Narrative General: Will wake up but falls back asleep quickly HEENT: Atraumatic, normocephalic Eyes: Anicteric, normal conjunctiva, extraocular movements grossly intact Neck: Supple Respiratory: No significant wheezes or rhonchi, normal respiratory effort Cardiovascular: Regular rate and rhythm GI: Soft, nontender, nondistended Extremities: No edema Musculoskeletal: Moving all extremities in bed Neuro: Some decreased strength right compared to left per but patient not particularly waking up to participate in exam, does have what occasionally appears to be myoclonic jerking Skin: No rashes appreciated Psych: Attempts to be cooperative but falls back asleep quickly Assessment & Plan Assessment/Plan (1) Intertrochanteric fracture of left femur: PLAN: Plan #Intertrochanteric fx of left femur -Status post left hip cephalomedullary nail postop day 11 - Plan is for SNF once medically stable - Will need to follow-up with Ortho on discharge #AMS -Suspect this is due to the gabapentin with patient's significant decrease in kidney function giventhe direct correlation between patient receiving the gabapentin and the progressive decline in mental status throughout the day with accompanying myoclonic jerking - Discontinue gabapentin - Continue to monitor #Subacute occipital infarct - Continue aspirin and statin - Patient go to SNF for therapy, likely tomorrow if mental status improves and labs/vitally stable # CKD stage IV -Appears to be at baseline -Avoid nephrotoxic agents -Daily BMPs # Chronic anemia - Suspect multifactorial with component of anemia of chronic disease given kidney function - No evidence of ongoing blood loss #Hypokalemia -Replace -Repeat in the AM #Dementia -Supportive care -Continue home medications #Depression/anxiety -Continue home medications #DVT ppx: hep subcu Raven Ayala MD Charges/Coding Visit Charges Inpatient E&M: 17916 Subs Hosp L2 NIHSS NIHSS Nursing Documentation NIHSS Nursing Documentation: NIHSS: Ischemic Stroke/TIA Start: 04/26/25 10:12 Freq: Q4H Status: Complete Protocol: Activity Type Activity Date Activity User E-sign Co-sign Detail Recorded Client Recorded Date Recorded By Document 04/29/25 12:00 [id number] 04/29/25 12:36 SS 04/29/25 12:00 NIH Stroke Scale [NIHSS] A score of 0 is "normal" or asymptomatic . Total possible score is 42. Inpatient: RN or Physician to activate a stroke alert for onset of new stroke symptoms or with NIHSS increase >/= 3 points. Following change in neurological status, NIHSS will be performed per physician order or more frequently PRN. -1a. Level of Consciousness 0 - Alert; keenly responsive -1b. LOC Questions 2 - Answers NEITHER question correctly -1c. LOC Commands 0 - Performs BOTH tasks correctly -2. Best Gaze 0 - Normal -3. Visual 0 - No visual loss -4. Facial Palsy 0 - Normal symmetrical movements -5a. Left Arm 2 - Some effort against gravity; -5b. Right Arm 1 - Drift; arm drifts downward but doesn?t hit the bed -6a. Left Leg UN - Amputation or joint fusion, explain : -'UN' explanation Recent hip fx -6b. Right Leg 2 - Some effort against gravity; -7. Limb Ataxia UN - Amputation or joint fusion, explain -'UN' explanation LFT HIP FX, PT NOT COOPERATING BUE ASESSMENT -8. Sensory 0 - Normal; no sensory loss -9. Best Language 2 - Severe aphasia; -10. Dysarthria 1 = Mild-to- moderate dysarthria; -11. Extinction and Inattention 0 - No abnormality -Total 10 Query Text:A score of 0 is "normal" or asymptomatic. Total possible score is 42 . ED: Notify Physician for NIHSS increase by > / = 3 points. Inpatient: RN or Physician to activate a stroke alert for NIHSS increase of > / = 3 points. Coma Scale [Assess] -Eye Opening Spontaneous -Motor Obeys Commands -Verbal Confused [Total] -Coma Scale Total 14 05/05/251941 Cosigner Signature (if applicable): CC: ~ Signed [facility]06-17-2025 Progress note Author [facility] Note Date/Time May 04, 2025 7:02 pm [facility] Medical Records Department [address] [place] [id number] Progress Note - Hospitalist 05/04/25 1857 MR#: [id number] Acct: [id number] Name: MICHAEL MULLINS Rep #:[id number] : 1940 85 From: Vern Rao DO PCP: Dr. Baron Espinoza MD Status:ADM I N Location: [place] [address] Reason for Visit Reason for Visit: Diagnoses Fracture of unspecified part of neck of left femur, initial encounter for closedfracture (04/23/25) Displaced intertrochanteric fracture of left femur, initial encounter for closedfracture (04/23/25) Unspecified fall, initial encounter (04/23/25) Subjective Subjective Patient was seen and examined today, patient appears to be restless but not severely restless at this time. I talked at length with the patient's daughter and today, we have not heard from his insurance carrier regarding permission for him to go to a fpc facility. I made the decision today to take the patient off of Zosyn-I am not sure he has pneumonia, and I have made the decision to convert his Lasix to oral Lasix. Finally, I have decided to place him on gabapentin 200 mg twice daily for neuropathy pain, patient had gabapentin listed as an allergy due to "tremors"-the does not remember this and the patient has baseline tremors anyway. I decided not to increase the patient's Seroquel at this time, I do not want to cause excessive sedation. Objective Data Objective Data Vital Signs: Vital Signs Temp Pulse Resp BP Pulse Ox O2 Del Method O2 Flow Rate 97.8 F 92 18 142/56 H 98 Nasal Cannula 4 05/04/25 15:35 05/04/25 15:35 05/04/25 15:35 05/04/25 15:35 05/04/25 15:35 05/04/25 15:35 05/04/25 15:35 Oxygen Flow Rate (L/min) 4 Oxygen Delivery Method Nasal Cannula Weight: 70.7 kg Body Mass Index (BMI) 24.4 Intake & Output: Intake and Output for Last 24 Hours 05/02/25 05/03/25 05/04/25 23:59 23:59 23:59 Intake Total 865 / 865 2071 / 2071 1056 / 1056 Output Total 3400 / 4650 2950 / 2950 1400 / 1400 Balance -2535 / -3785 -879 / -879 -344 / -344 Lab / Micro Data 05/03/25 05:15 05/04/25 08:21 Labs: Laboratory Results - last 24 hr 05/03/25 22:00: POC Glucose 102 05/04/25 05:52: POC Glucose 93 05/04/25 08:21: Sodium 148 H, Potassium 4.1, Chloride 113 H, Carbon Dioxide 20.5L, Anion Gap 14, BUN 59 H, Creatinine 2.57 H, Estim Creat Clear Calc 19.65 L, Est GFR (MDRD) Non-Af 24 L, BUN/Creatinine Ratio 22.9 H, Glucose 100 H, Calcium 8.2 05/04/25 11:53: POC Glucose 133 H 05/04/25 16:27: POC Glucose 131 H Physical Exam Narrative alert, no apparent distress, average body habitus and healthy appearing General Appearance: cooperative, well kempt and well developed Orientation / Consciousness: awake and oriented to person HEENT normocephalic, head/scalp atraumatic and moist oral mucous membranes Head and Scalp: normocephalic Eyes PERRL, EOMs intact bilaterally and conjunctivae normal Neck supple, no JVD, thyroid normal and no carotid bruits General: trachea midline Resp normal respiratory effort, no retractions, no use of accessory muscles and clearto auscultation bilaterally Auscultation: Negative for rales, rhonchi or wheezes Cardio regular rate, regular rhythm, S1 normal heart sound, S2 normal heart sound, no murmurs, no rub and no gallops GI normal to inspection, nondistended, normoactive bowel sounds, soft to palpation,non-tender and non-distended Extremity no clubbing, cyanosis or edema Skin no rashes or lesions noted General Skin Exam: no breakdown Neuro CN's II-XII intact bilaterally, no focal motor deficits and no sensory deficits noted Neuro Narrative: Patient is alert, he is confused, he does not appear agitated Sensorium / Orientation: awake, alert and oriented to person Speech: speech normal Psych Psych Narrative: Patient exhibits cognitive impairment, he is alert and does not carry on a conversation but says a few words which do not make sense. Assessment & Plan Assessment/Plan (1) Intertrochanteric fracture of left femur: (2) Closed fracture of left hip: PLAN: Plan 1. 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 Patient's white blood cell count is slightly high #4 hyperkalemia-resolved at this time #5 chronic kidney disease stage IV-patient's IV fluids will be continued, I havedecided to decrease his IV rate to 75 cc/h, patient is still on D5 half- normal saline #6 jmiygkav-qnckppzf-lhutxeyuksz care, management, recovery, and prognosis, patient is currently on Seroquel for agitation #7 slightly low platelet count-resolved at this time #8 acute anemia-secondary to acute blood loss from left hip fracture-hemoglobin was 8.4 today and appears stable, recheck CBC tomorrow #9 cardiomyopathy by history-patient's echocardiogram showed an ejection fraction of 55% #10 subacute occipital infarction-patient is on a baby aspirin a day #11 hypernatremia-patient is on D5W at 60 an hour, BMP will be rechecked tomorrow, sodium is improved I have ruled out pneumonia and CHF at this time, patient's Zosyn was stopped, I have elected to keep the patient on Lasix 40 mg p.o. daily Total clinical time spent by myself addressing the patient's medical issues, reviewing all of his data, and collaborating with the patient's care team: 35 minutes Charges/Coding Visit Charges Inpatient E&M: 20170 Subs Hosp L2 NIHSS NIHSS Nursing Documentation NIHSS Nursing Documentation: NIHSS: Ischemic Stroke/TIA Start: 04/26/25 10:12 Freq: Q4H Status: Complete Protocol: Activity Type Activity Date Activity User E-sign Co-sign Detail Recorded Client Recorded Date Recorded By Document 04/29/25 12:00 [id number] 04/29/25 12:36 SS 04/29/25 12:00 NIH Stroke Scale [NIHSS] A score of 0 is "normal" or asymptomatic . Total possible score is 42. Inpatient: RN or Physician to activate a stroke alert for onset of new stroke symptoms or with NIHSS increase >/= 3 points. Following change in neurological status, NIHSS will be performed per physician order or more frequently PRN. -1a. Level of Consciousness 0 - Alert; keenly responsive -1b. LOC Questions 2 - Answers NEITHER question correctly -1c. LOC Commands 0 - Performs BOTH tasks correctly -2. Best Gaze 0 - Normal -3. Visual 0 - No visual loss -4. Facial Palsy 0 - Normal symmetrical movements -5a. Left Arm 2 - Some effort against gravity; -5b. Right Arm 1 - Drift; arm drifts downward but doesn?t hit the bed -6a. Left Leg UN - Amputation or joint fusion, explain : -'UN' explanation Recent hip fx -6b. Right Leg 2 - Some effort against gravity; -7. Limb Ataxia UN - Amputation or joint fusion, explain -'UN' explanation LFT HIP FX, PT NOT COOPERATING BUE ASESSMENT -8. Sensory 0 - Normal; no sensory loss -9. Best Language 2 - Severe aphasia; -10. Dysarthria 1 = Mild-to- moderate dysarthria; -11. Extinction and Inattention 0 - No abnormality -Total 10 Query Text:A score of 0 is "normal" or asymptomatic. Total possible score is 42 . ED: Notify Physician for NIHSS increase by > / = 3 points. Inpatient: RN or Physician to activate a stroke alert for NIHSS increase of > / = 3 points. Coma Scale [Assess] -Eye Opening Spontaneous -Motor Obeys Commands -Verbal Confused [Total] -Coma Scale Total 14 05/04/251901 <Electronically signed by Vern Rao DO> Cosigner Signature (if applicable): CC: ~ Signed [facility] Work Phone: 1(922) 915-287206-17-2025 Progress note Author [facility] Note Date/Time May 04, 2025 6:57 pm [facility] Medical Records Department [address] [place] [address] Progress Note - Hospitalist 05/03/251907 MR#: [id number] Acct: [id number] Name: MICHAEL MULLINS Rep #:[id number] : 1940 85 From: Vern Rao DO PCP: Dr. Baron Espinoza MD Status:ADM I N Location: [place] [address] Reason for Visit Reason for Visit: Diagnoses Fracture of unspecified part of neck of left femur, initial encounter for closedfracture (04/23/25) Displaced intertrochanteric fracture of left femur, initial encounter for closedfracture (04/23/25) Unspecified fall, initial encounter (04/23/25) Subjective Subjective Patient was seen and examined today, he appears to be somewhat calmer, his family is in the room and I talked to his for a short period of time. She states that the patient needs nutrition and he cannot eat she would like a PEG tube inserted. According to nursing, speech made him n.p.o. again because they were concerned he was aspirating due to a drop in his pulse ox after he ate. Objective Data Objective Data Vital Signs: Vital Signs Temp Pulse Resp BP Pulse Ox O2 Del Method O2 Flow Rate 99.0 F 94 20 H 110/83 H 97 Nasal Cannula 4 05/03/25 18:00 05/03/25 18:00 05/03/25 18:00 05/03/25 18:00 05/03/25 18:00 05/03/25 18:00 05/03/25 18:00 Oxygen Flow Rate (L/min) 4 Oxygen Delivery Method Nasal Cannula Weight: 73.6 kg Body Mass Index (BMI) 25.4 Intake & Output: Intake and Output for Last 24 Hours 05/01/25 05/02/25 05/03/25 23:59 23:59 23:59 Intake Total 2830.00 / 2830.00 865 / 865 1150 / 1150 Output Total 1425 / 1425 3400 / 4650 2950 / 2950 Balance 1405.00 / 1405.00 -2535 / -3785 -1800 / -1800 Lab / Micro Data 05/03/25 05:15 05/04/25 08:21 Labs: Laboratory Results - last 24 hr 05/02/25 21:07: POC Glucose 107 H 05/03/25 05:15: WBC 14.1 H, RBC 2.58 L, Hgb 8.4 L, Hct 24.9 L, MCV 96.5 H, MCH 32.6 H, MCHC 33.7, RDW Std Deviation 56.5 H, RDW Coeff of Eduarda 17.4 H, Plt Count 295, MPV 12.4 H, Immature Gran % (Auto) 0.900, Neut % (Auto) 77.9 H, Lymph % (Auto) 12.7 L, Parker % (Auto) 5.2, Eos % (Auto) 3.1, Baso % (Auto) 0.2, Absolute Neuts (auto) 11.0 H, Absolute Lymphs (auto) 1.79, Nucleated RBC % 3.9, Sodium 150 H, Potassium 4.2, Chloride 118 H, Carbon Dioxide 18.5 L, Anion Gap 13, BUN 56 H, Creatinine 2.27 H, Estim Creat Clear Calc 22.25 L, Est GFR (MDRD) Non-Af 28 L, BUN/Creatinine Ratio 24.8 H, Glucose 112 H, Calcium 8.4 05/03/25 12:14: POC Glucose 137 H 05/03/25 17:08: POC Glucose 131 H Physical Exam Narrative alert, no apparent distress, average body habitus and healthy appearing General Appearance: cooperative, well kempt and well developed Orientation / Consciousness: awake and oriented to person HEENT normocephalic, head/scalp atraumatic and moist oral mucous membranes Head and Scalp: normocephalic Eyes PERRL, EOMs intact bilaterally and conjunctivae normal Neck supple, no JVD, thyroid normal and no carotid bruits General: trachea midline Resp normal respiratory effort, no retractions, no use of accessory muscles and clearto auscultation bilaterally Auscultation: Negative for rales, rhonchi or wheezes Cardio regular rate, regular rhythm, S1 normal heart sound, S2 normal heart sound, no murmurs, no rub and no gallops GI normal to inspection, nondistended, normoactive bowel sounds, soft to palpation,non-tender and non-distended Extremity no clubbing, cyanosis or edema Skin no rashes or lesions noted General Skin Exam: no breakdown Neuro CN's II-XII intact bilaterally, no focal motor deficits and no sensory deficits noted Neuro Narrative: Patient is alert, he is confused, he does not appear agitated Sensorium / Orientation: awake, alert and oriented to person Speech: speech normal Psych Psych Narrative: Patient exhibits cognitive impairment, he is alert and does not carry on a conversation but says a few words which do not make sense. Assessment & Plan Assessment/Plan (1) Intertrochanteric fracture of left femur: (2) Closed fracture of left hip: PLAN: Plan 1. 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 Patient's white blood cell count is slightly high #4 hyperkalemia-resolved at this time #5 chronic kidney disease stage IV-patient's IV fluids will be continued, I havedecided to decrease his IV rate to 75 cc/h, patient is still on D5 half- normal saline #6 timslgew-jirpulzq-xruvbrquhre care, management, recovery, and prognosis, patient is currently on Seroquel for agitation #7 slightly low platelet count-no treatment necessary #8 acute anemia-secondary to acute blood loss from left hip fracture-hemoglobin was 8.6 today and appears stable #9 cardiomyopathy by history-patient's echocardiogram showed an ejection fraction of 55% #10 subacute occipital infarction-patient is on a baby aspirin a day #11 hypernatremia-patient is on D5W at 60 an hour, BMP will be rechecked tomorrow #12 pneumonia versus possible CHF-patient remains on Zosyn and IV Lasix for now,I would reevaluate him tomorrow Total clinical time spent by myself addressing the patient's medical issues, reviewing all of his data, and collaborating with the patient's care team: 35 minutes Charges/Coding Visit Charges Inpatient E&M: 60831 Subs Hosp L2 NIHSS NIHSS Nursing Documentation NIHSS Nursing Documentation: NIHSS: Ischemic Stroke/TIA Start: 04/26/25 10:12 Freq: Q4H Status: Complete Protocol: Activity Type Activity Date Activity User E-sign Co-sign Detail Recorded Client Recorded Date Recorded By Document 04/29/25 12:00 [id number] 04/29/25 12:36 04/29/25 12:00 NIH Stroke Scale [NIHSS] A score of 0 is "normal" or asymptomatic . Total possible score is 42. Inpatient: RN or Physician to activate a stroke alert for onset of new stroke symptoms or with NIHSS increase >/= 3 points. Following change in neurological status, NIHSS will be performed per physician order or more frequently PRN. -1a. Level of Consciousness 0 - Alert; keenly responsive -1b. LOC Questions 2 - Answers NEITHER question correctly -1c. LOC Commands 0 - Performs BOTH tasks correctly -2. Best Gaze 0 - Normal -3. Visual 0 - No visual loss -4. Facial Palsy 0 - Normal symmetrical movements -5a. Left Arm 2 - Some effort against gravity; -5b. Right Arm 1 - Drift; arm drifts downward but doesn?t hit the bed -6a. Left Leg UN - Amputation or joint fusion, explain : -'UN' explanation Recent hip fx -6b. Right Leg 2 - Some effort against gravity; -7. Limb Ataxia UN - Amputation or joint fusion, explain -'UN' explanation LFT HIP FX, PT NOT COOPERATING BUE ASESSMENT -8. Sensory 0 - Normal; no sensory loss -9. Best Language 2 - Severe aphasia; -10. Dysarthria 1 = Mild-to- moderate dysarthria; -11. Extinction and Inattention 0 - No abnormality -Total 10 Query Text:A score of 0 is "normal" or asymptomatic. Total possible score is 42 . ED: Notify Physician for NIHSS increase by > / = 3 points. Inpatient: RN or Physician to activate a stroke alert for NIHSS increase of > / = 3 points. Coma Scale [Assess] -Eye Opening Spontaneous -Motor Obeys Commands -Verbal Confused [Total] -Coma Scale Total 14 05/04/25 185 <Electronically signed by Vern Rao DO> Cosigner Signature (if applicable): CC: ~ Signed [facility] Work Phone: [phone] 716-987606-17-2025 Progress note [facility] Medical Records Department [address] [place] [address] Progress Note - Hospitalist 05/04/251856 MR#: [id number] Acct: [id number] Name: MICHAEL MULLINS Rep #:[id number] : 1940 85 From: Vern Rao DO PCP: Dr. Baron Espinoza MD Status:ADM I N Location: [place] [address] Reason for Visit Reason for Visit: Diagnoses Fracture of unspecified part of neck of left femur, initial encounter for closedfracture (04/23/25) Displaced intertrochanteric fracture of left femur, initial encounter for closedfracture (04/23/25) Unspecified fall, initial encounter (04/23/25) Subjective Subjective Patient was seen and examined today, patient appears to be restless but not severely restless at this time. I talked at length with the patient's daughter and today, we have not heard from his insurance carrier regarding permission for him to go to a fpc facility. I made the decision today to take the patient off of Zosyn-I am not sure he has pneumonia, and I have made the decision to convert his Lasix to oral Lasix. Finally, I have decided to place him on gabapentin 200 mg twice daily for neuropathy pain, patient had gabapentin listed as an allergy due to "tremors"-the does not remember this and the patient has baseline tremors anyway. I decided not to increase the patient's Seroquel at this time, I do not want to cause excessive sedation. Objective Data Objective Data Vital Signs: Vital Signs Temp Pulse Resp BP Pulse Ox O2 Del Method O2 Flow Rate 97.8 F 92 18 142/56 H 98 Nasal Cannula 4 05/04/25 15:35 05/04/25 15:35 05/04/25 15:35 05/04/25 15:35 05/04/25 15:35 05/04/25 15:35 05/04/25 15:35 Oxygen Flow Rate (L/min) 4 Oxygen Delivery Method Nasal Cannula Weight: 70.7 kg Body Mass Index (BMI) 24.4 Intake & Output: Intake and Output for Last 24 Hours 05/02/25 05/03/25 05/04/25 23:59 23:59 23:59 Intake Total 865 / 865 2071 / 2071 1056 / 1056 Output Total 3400 / 4650 2950 / 2950 1400 / 1400 Balance -2535 / -3785 -879 / -879 -344 / -344 Lab / Micro Data 05/03/25 05:15 05/04/25 08:21 Labs: Laboratory Results - last 24 hr 05/03/25 22:00: POC Glucose 102 05/04/25 05:52: POC Glucose 93 05/04/25 08:21: Sodium 148 H, Potassium 4.1, Chloride 113 H, Carbon Dioxide 20.5L, Anion Gap 14, BUN 59 H, Creatinine 2.57 H, Estim Creat Clear Calc 19.65 L, Est GFR (MDRD) Non-Af 24 L, BUN/Creatinine Ratio 22.9 H, Glucose 100 H, Calcium 8.2 05/04/25 11:53: POC Glucose 133 H 05/04/25 16:27: POC Glucose 131 H Physical Exam Narrative alert, no apparent distress, average body habitus and healthy appearing General Appearance: cooperative, well kempt and well developed Orientation / Consciousness: awake and oriented to person HEENT normocephalic, head/scalp atraumatic and moist oral mucous membranes Head and Scalp: normocephalic Eyes PERRL, EOMs intact bilaterally and conjunctivae normal Neck supple, no JVD, thyroid normal and no carotid bruits General: trachea midline Resp normal respiratory effort, no retractions, no use of accessory muscles and clearto auscultation bilaterally Auscultation: Negative for rales, rhonchi or wheezes Cardio regular rate, regular rhythm, S1 normal heart sound, S2 normal heart sound, no murmurs, no rub and no gallops GI normal to inspection, nondistended, normoactive bowel sounds, soft to palpation,non-tender and non-distended Extremity no clubbing, cyanosis or edema Skin no rashes or lesions noted General Skin Exam: no breakdown Neuro CN's II-XII intact bilaterally, no focal motor deficits and no sensory deficits noted Neuro Narrative: Patient is alert, he is confused, he does not appear agitated Sensorium / Orientation: awake, alert and oriented to person Speech: speech normal Psych Psych Narrative: Patient exhibits cognitive impairment, he is alert and does not carry on a conversation but says a few words which do not make sense. Assessment & Plan Assessment/Plan (1) Intertrochanteric fracture of left femur: (2) Closed fracture of left hip: PLAN: Plan 1. 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 Patient's white blood cell count is slightly high #4 hyperkalemia-resolved at this time #5 chronic kidney disease stage IV-patient's IV fluids will be continued, I havedecided to decreasehis IV rate to 75 cc/h, patient is still on D5 half- normal saline #6 gwksapwc-bzrvltrh-tbdzqryxofj care, management, recovery, and prognosis, patient is currently onSeroquel for agitation #7 slightly low platelet count-resolved at this time #8 acute anemia-secondary to acute blood loss from left hip fracture-hemoglobin was 8.4 today and appears stable, recheck CBC tomorrow #9 cardiomyopathy by history-patient's echocardiogram showed an ejection fraction of 55% #10 subacute occipital infarction-patient is on a baby aspirin a day #11 hypernatremia-patient is on D5W at 60 an hour, BMP will be rechecked tomorrow, sodium is improved I have ruled out pneumonia and CHF at this time, patient's Zosyn was stopped, I have elected to keep the patient on Lasix 40 mg p.o. daily Total clinical time spent by myself addressing the patient's medical issues, reviewing all of his data, and collaborating with the patient's care team: 35 minutes Charges/Coding Visit Charges Inpatient E&M: 75261 Subs Hosp L2 NIHSS NIHSS Nursing Documentation NIHSS Nursing Documentation: NIHSS: Ischemic Stroke/TIA Start: 04/26/25 10:12 Freq: Q4H Status: Complete Protocol: Activity Type Activity Date Activity User E-sign Co-sign Detail Recorded Client Recorded Date Recorded By Document 04/29/25 12:00 [id number] 04/29/25 12:36 04/29/25 12:00 NIH Stroke Scale [NIHSS] A score of 0 is "normal" or asymptomatic . Total possible score is 42. Inpatient: RN or Physician to activate a stroke alert for onset of new stroke symptoms or with NIHSS increase >/= 3 points. Following change in neurological status, NIHSS will be performed per physician order or more frequently PRN. -1a. Level of Consciousness 0 - Alert; keenly responsive -1b. LOC Questions 2 - Answers NEITHER question correctly -1c. LOC Commands 0 - Performs BOTH tasks correctly -2. Best Gaze 0 - Normal -3. Visual 0 - No visual loss -4. Facial Palsy 0 - Normal symmetrical movements -5a. Left Arm 2 - Some effort against gravity; -5b. Right Arm 1 - Drift; arm drifts downward but doesn?t hit the bed -6a. Left Leg UN - Amputation or joint fusion, explain : -'UN' explanation Recent hip fx -6b. Right Leg 2 - Some effort against gravity; -7. Limb Ataxia UN - Amputation or joint fusion, explain -'UN' explanation LFT HIP FX, PT NOT COOPERATING BUE ASESSMENT -8. Sensory 0 - Normal; no sensory loss -9. Best Language 2 - Severe aphasia; -10. Dysarthria 1 = Mild-to- moderate dysarthria; -11. Extinction and Inattention 0 - No abnormality -Total 10 Query Text:A score of 0 is "normal" or asymptomatic. Total possible score is 42 . ED: Notify Physician for NIHSS increase by > / = 3 points. Inpatient: RN or Physician to activate a stroke alert for NIHSS increase of > / = 3 points. Coma Scale [Assess] -Eye Opening Spontaneous -Motor Obeys Commands -Verbal Confused [Total] -Coma Scale Total 14 05/04/25 190 Cosigner Signature (if applicable): CC: ~ Signed [facility]06-17-2025 Progress note [facility] Medical Records Department [address] [place] [address] Progress Note - Hospitalist 05/03/251907 MR#: [id number] Acct: [id number] Name: MICHAEL MULLINS Rep #:[id number] : 1940 85 From: Vern Rao DO PCP: Dr. Baron Espinoza MD Status:ADM I N Location: [place] [address] Reason for Visit Reason for Visit: Diagnoses Fracture of unspecified part of neck of left femur, initial encounter for closedfracture (04/23/25) Displaced intertrochanteric fracture of left femur, initial encounter for closedfracture (04/23/25) Unspecified fall, initial encounter (04/23/25) Subjective Subjective Patient was seen and examined today, he appears to be somewhat calmer, his family is in the room and I talked to his for a short period of time. She states that the patient needs nutrition and he cannot eat she would like a PEG tube inserted. According to nursing, speech made him n.p.o. again because they were concerned he was aspirating due to a drop in his pulse ox after he ate. Objective Data Objective Data Vital Signs: Vital Signs Temp Pulse Resp BP Pulse Ox O2 Del Method O2 Flow Rate 99.0 F 94 20 H 110/83 H 97 Nasal Cannula 4 05/03/25 18:00 05/03/25 18:00 05/03/25 18:00 05/03/25 18:00 05/03/25 18:00 05/03/25 18:00 05/03/25 18:00 Oxygen Flow Rate (L/min) 4 Oxygen Delivery Method Nasal Cannula Weight: 73.6 kg Body Mass Index (BMI) 25.4 Intake & Output: Intake and Output for Last 24 Hours 05/01/25 05/02/25 05/03/25 23:59 23:59 23:59 Intake Total 2830.00 / 2830.00 865 / 865 1150 / 1150 Output Total 1425 / 1425 3400 / 4650 2950 / 2950 Balance 1405.00 / 1405.00 -2535 / -3785 -1800 / -1800 Lab / Micro Data 05/03/25 05:15 05/04/25 08:21 Labs: Laboratory Results - last 24 hr 05/02/25 21:07: POC Glucose 107 H 05/03/25 05:15: WBC 14.1 H, RBC 2.58 L, Hgb 8.4 L, Hct 24.9 L, MCV 96.5 H, MCH 32.6 H, MCHC 33.7, RDW Std Deviation 56.5 H, RDW Coeff of Eduarda 17.4 H, Plt Count 295, MPV 12.4 H, Immature Gran % (Auto) 0.900, Neut % (Auto) 77.9 H, Lymph % (Auto) 12.7 L, Parker % (Auto) 5.2, Eos % (Auto) 3.1, Baso % (Auto) 0.2, Absolute Neuts (auto) 11.0 H, Absolute Lymphs (auto) 1.79, Nucleated RBC % 3.9, Sodium 150 H, Potassium 4.2, Chloride 118 H, Carbon Dioxide 18.5 L, Anion Gap 13, BUN 56 H, Creatinine 2.27 H, Estim Creat Clear Calc 22.25 L, Est GFR (MDRD) Non-Af 28 L, BUN/Creatinine Ratio 24.8 H, Glucose 112 H, Calcium 8.4 05/03/25 12:14: POC Glucose 137 H 05/03/25 17:08: POC Glucose 131 H Physical Exam Narrative alert, no apparent distress, average body habitus and healthy appearing General Appearance: cooperative, well kempt and well developed Orientation / Consciousness: awake and oriented to person HEENT normocephalic, head/scalp atraumatic and moist oral mucous membranes Head and Scalp: normocephalic Eyes PERRL, EOMs intact bilaterally and conjunctivae normal Neck supple, no JVD, thyroid normal and no carotid bruits General: trachea midline Resp normal respiratory effort, no retractions, no use of accessory muscles and clearto auscultation bilaterally Auscultation: Negative for rales, rhonchi or wheezes Cardio regular rate, regular rhythm, S1 normal heart sound, S2 normal heart sound, no murmurs, no rub and no gallops GI normal to inspection, nondistended, normoactive bowel sounds, soft to palpation,non-tender and non-distended Extremity no clubbing, cyanosis or edema Skin no rashes or lesions noted General Skin Exam: no breakdown Neuro CN's II-XII intact bilaterally, no focal motor deficits and no sensory deficits noted Neuro Narrative: Patient is alert, he is confused, he does not appear agitated Sensorium / Orientation: awake, alert and oriented to person Speech: speech normal Psych Psych Narrative: Patient exhibits cognitive impairment, he is alert and does not carry on a conversation but says a few words which do not make sense. Assessment & Plan Assessment/Plan (1) Intertrochanteric fracture of left femur: (2) Closed fracture of left hip: PLAN: Plan 1. 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 Patient's white blood cell count is slightly high #4 hyperkalemia-resolved at this time #5 chronic kidney disease stage IV-patient's IV fluids will be continued, I havedecided to decreasehis IV rate to 75 cc/h, patient is still on D5 half- normal saline #6 agnmkieh-rrkwwdxw-oruapfaiiex care, management, recovery, and prognosis, patient is currently onSeroquel for agitation #7 slightly low platelet count-no treatment necessary #8 acute anemia-secondary to acute blood loss from left hip fracture-hemoglobin was 8.6 today and appears stable #9 cardiomyopathy by history-patient's echocardiogram showed an ejection fraction of 55% #10 subacute occipital infarction-patient is on a baby aspirin a day #11 hypernatremia-patient is on D5W at 60 an hour, BMP will be rechecked tomorrow #12 pneumonia versus possible CHF-patient remains on Zosyn and IV Lasix for now,I would reevaluate him tomorrow Total clinical time spent by myself addressing the patient's medical issues, reviewing all of his data, and collaborating with the patient's care team: 35 minutes Charges/Coding Visit Charges Inpatient E&M: 95377 Subs Hosp L2 NIHSS NIHSS Nursing Documentation NIHSS Nursing Documentation: NIHSS: Ischemic Stroke/TIA Start: 04/26/25 10:12 Freq: Q4H Status: Complete Protocol: Activity Type Activity Date Activity User E-sign Co-sign Detail Recorded Client Recorded Date Recorded By Document 04/29/25 12:00 [id number] 04/29/25 12:36 SS 04/29/25 12:00 NIH Stroke Scale [NIHSS] A score of 0 is "normal" or asymptomatic . Total possible score is 42. Inpatient: RN or Physician to activate a stroke alert for onset of new stroke symptoms or with NIHSS increase >/= 3 points. Following change in neurological status, NIHSS will be performed per physician order or more frequently PRN. -1a. Level of Consciousness 0 - Alert; keenly responsive -1b. LOC Questions 2 - Answers NEITHER question correctly -1c. LOC Commands 0 - Performs BOTH tasks correctly -2. Best Gaze 0 - Normal -3. Visual 0 - No visual loss -4. Facial Palsy 0 - Normal symmetrical movements -5a. Left Arm 2 - Some effort against gravity; -5b. Right Arm 1 - Drift; arm drifts downward but doesn?t hit the bed -6a. Left Leg UN - Amputation or joint fusion, explain : -'UN' explanation Recent hip fx -6b. Right Leg 2 - Some effort against gravity; -7. Limb Ataxia UN - Amputation or joint fusion, explain -'UN' explanation LFT HIP FX, PT NOT COOPERATING BUE ASESSMENT -8. Sensory 0 - Normal; no sensory loss -9. Best Language 2 - Severe aphasia; -10. Dysarthria 1 = Mild-to- moderate dysarthria; -11. Extinction and Inattention 0 - No abnormality -Total 10 Query Text:A score of 0 is "normal" or asymptomatic. Total possible score is 42 . ED: Notify Physician for NIHSS increase by > / = 3 points. Inpatient: RN or Physician to activate a stroke alert for NIHSS increase of > / = 3 points. Coma Scale [Assess] -Eye Opening Spontaneous -Motor Obeys Commands -Verbal Confused [Total] -Coma Scale Total 14 05/04/25 7497 Cosigner Signature (if applicable): CC: ~ Signed [facility]06-15-2025 Progress note Author Vern Rao [facility] Note Date/Time May 02, 2025 12:2 9pm [facility] Medical Records Department [address] [place] [address] Progress Note - Hospitalist 05/02/25 1225 MR#: [id number] Acct: [id number] Name: MICHAEL MULLINS Rep #:[id number] : 1940 85 From: Vern Rao DO PCP: Dr. Baron Espinoza MD Status:ADM I N Location: [place] [address] Reason for Visit Reason for Visit: Diagnoses Fracture of unspecified part of neck of left femur, initial encounter for closedfracture (04/23/25) Displaced intertrochanteric fracture of left femur, initial encounter for closedfracture (04/23/25) Unspecified fall, initial encounter (04/23/25) Subjective Subjective Patient was seen and examined today, his sodium is still mildly elevated, I haveelected to place him on D5 at 60 cc an hour and repeat the BMP tomorrow. Patient was evaluated by the night hospitalist who felt that the patient had pneumonia based on chest x-ray, he was placed on Zosyn, at this time I will continue the Zosyn but I am not absolutely sure he has pneumonia. He was also placed on IV Bumex but I feel the dose is too high for the patient, I have switched him to Lasix 20 mg every 12 hours IV. Patient remains confused and mildly agitated, I talked to the son who was in the room at the time my examination and told him that I would increase patient's Seroquel to see if it could provide some relief for the patient. Objective Data Objective Data Vital Signs: Vital Signs Temp Pulse Resp BP Pulse Ox O2 Del Method O2 Flow Rate 98.4 F 66 20 H 161/73 H 94 Nasal Cannula 2 05/02/25 11:58 05/02/25 11:58 05/02/25 11:58 05/02/25 11:58 05/02/25 11:58 05/02/25 11:58 05/02/25 11:58 Oxygen Flow Rate (L/min) 2 Oxygen Delivery Method Nasal Cannula Weight: 74.5 kg Body Mass Index (BMI) 25.7 Intake & Output: Intake and Output for Last 24 Hours 04/30/25 05/01/25 05/02/25 23:59 23:59 23:59 Intake Total 2023.33 / 202.33 2830.00 / 2830.00 815 / 815 Output Total 1300 / 1300 1425 / 1425 1250 / 1250 Balance 723.33 / 723.33 1405.00 / 1405.00 -435 / -435 Lab / Micro Data 05/02/25 05:46 05/02/25 05:46 Labs: Laboratory Results - last 24 hr 05/01/25 01:10: WBC 12.6 H, RBC 2.22 L, Hgb 7.2 L, Hct 21.3 L, MCV 95.9 H, MCH 32.4 H, MCHC 33.8, RDW Std Deviation 57.7 H, RDW Coeff of Eduarda 16.9 H, Plt Count 208, MPV 10.8, Immature Gran % (Auto) 1.000 H, Neut % (Auto) 92.0 H, Lymph % (Auto) 2.2 L, Parker % (Auto) 4.5, Eos % (Auto) 0.2, Baso % (Auto) 0.1, Absolute Neuts (auto) 11.6 H, Absolute Lymphs (auto) 0.28 L, Nucleated RBC % 4.0 05/01/25 16:54: POC Glucose 121 H 05/01/25 22:02: POC Glucose 129 H 05/02/25 01:10: [place] [address] H 05/02/25 05:46: WBC 11.9 H, RBC 2.29 L, Hgb 7.3 L, Hct 21.9 L, MCV 95.6 H, MCH 31.9, MCHC 33.3, RDW Std Deviation 56.1 H, RDW Coeff of Eduarda 16.6 H, Plt Count 226, MPV 11.3, Immature Gran % (Auto) 1.200 H, Neut % (Auto) 84.8 H, Lymph % (Auto) 7.7 L, Parker % (Auto) 5.8, Eos % (Auto) 0.4, Baso % (Auto) 0.1, Absolute Neuts (auto) 10.1 H, Absolute Lymphs (auto) 0.92, Nucleated RBC % 4.5, Sodium 152 H, Potassium 4.4, Chloride 125 H, Carbon Dioxide 15.2 L, Anion Gap 12, BUN 54 H, Creatinine 1.81 H, Estim Creat Clear Calc 27.91 L, Est GFR (MDRD) Non-Af 37 L, BUN/Creatinine Ratio 29.8 H, Glucose 106 H, Calcium 8.2 05/02/25 06:43: POC Glucose 95 05/02/25 11:52: POC Glucose 100 ABG Data ABG results: ABG 05/01/25 23:42 Specimen Type ART Sample Site R Radial pH 7.40 Bicarbonate Actual 16.6 L Total CO2 17 Base Excess -8 L O2 Saturation 96 O2 % 4.0 ABG pCO2 26.8 L ABG pO2 79 Samantha Test N/A O2 Delivery Device Cannula Vent Mode Not entered Radiography Diagnostic Testing: Radiology Impression Chest X-Ray 05/01/25 23:59 IMPRESSION: 1. Low lung volume 2. Chronic elevation left hemidiaphragm with mild linear atelectasis left mid to lower lung zone. 3. Mild patchy right lung atelectasis versus infiltrate Reading Location: [facility] Physical Exam Narrative alert, no apparent distress, average body habitus and healthy appearing General Appearance: cooperative, well kempt and well developed Orientation / Consciousness: awake and oriented to person HEENT normocephalic, head/scalp atraumatic and moist oral mucous membranes Head and Scalp: normocephalic Eyes PERRL, EOMs intact bilaterally and conjunctivae normal Neck supple, no JVD, thyroid normal and no carotid bruits General: trachea midline Resp normal respiratory effort, no retractions, no use of accessory muscles and clearto auscultation bilaterally Auscultation: Negative for rales, rhonchi or wheezes Cardio regular rate, regular rhythm, S1 normal heart sound, S2 normal heart sound, no murmurs, no rub and no gallops GI normal to inspection, nondistended, normoactive bowel sounds, soft to palpation,non-tender and non-distended Extremity no clubbing, cyanosis or edema Skin no rashes or lesions noted General Skin Exam: no breakdown Neuro CN's II-XII intact bilaterally, no focal motor deficits and no sensory deficits noted Neuro Narrative: Patient is alert, he is confused, he does not appear agitated Sensorium / Orientation: awake, alert and oriented to person Speech: speech normal Psych Psych Narrative: Patient exhibits cognitive impairment, he is alert and does not carry on a conversation but says a few words which do not make sense. Assessment & Plan Assessment/Plan (1) Intertrochanteric fracture of left femur: (2) Closed fracture of left hip: PLAN: Plan 1. 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 Patient's white blood cell count is slightly high #4 hyperkalemia-resolved at this time #5 chronic kidney disease stage IV-patient's IV fluids will be continued, I havedecided to decrease his IV rate to 75 cc/h, patient is still on D5 half- normal saline #6 zgiaphyd-borrcesb-hdrkwhqjugr care, management, recovery, and prognosis #7 slightly low platelet count-no treatment necessary #8 acute anemia-secondary to acute blood loss from left hip fracture-hemoglobin was 8.6 today and appears stable #9 cardiomyopathy by history-patient's echocardiogram showed an ejection fraction of 55% #10 subacute occipital infarction-patient is on a baby aspirin a day #11 hypernatremia-patient is on D5W at 60 an hour, BMP will be rechecked tomorrow #12 pneumonia versus possible CHF-patient remains on Zosyn and IV Lasix for now,I would reevaluate him tomorrow Total clinical time spent by myself addressing the patient's medical issues, reviewing all of his data, and collaborating with the patient's care team: 35 minutes Charges/Coding Visit Charges Inpatient E&M: 01378 Subs Hosp L2 NIHSS NIHSS Nursing Documentation NIHSS Nursing Documentation: NIHSS: Ischemic Stroke/TIA Start: 04/26/25 10:12 Freq: Q4H Status: Complete Protocol: Activity Type Activity Date Activity User E-sign Co-sign Detail Recorded Client Recorded Date Recorded By Document 04/29/25 12:00 [id number] 04/29/25 12:36 SS 04/29/25 12:00 NIH Stroke Scale [NIHSS] A score of 0 is "normal" or asymptomatic . Total possible score is 42. Inpatient: RN or Physician to activate a stroke alert for onset of new stroke symptoms or with NIHSS increase >/= 3 points. Following change in neurological status, NIHSS will be performed per physician order or more frequently PRN. -1a. Level of Consciousness 0 - Alert; keenly responsive -1b. LOC Questions 2 - Answers NEITHER question correctly -1c. LOC Commands 0 - Performs BOTH tasks correctly -2. Best Gaze 0 - Normal -3. Visual 0 - No visual loss -4. Facial Palsy 0 - Normal symmetrical movements -5a. Left Arm 2 - Some effort against gravity; -5b. Right Arm 1 - Drift; arm drifts downward but doesn?t hit the bed -6a. Left Leg UN - Amputation or joint fusion, explain : -'UN' explanation Recent hip fx -6b. Right Leg 2 - Some effort against gravity; -7. Limb Ataxia UN - Amputation or joint fusion, explain -'UN' explanation LFT HIP FX, PT NOT COOPERATING BUE ASESSMENT -8. Sensory 0 - Normal; no sensory loss -9. Best Language 2 - Severe aphasia; -10. Dysarthria 1 = Mild-to- moderate dysarthria; -11. Extinction and Inattention 0 - No abnormality -Total 10 Query Text:A score of 0 is "normal" or asymptomatic. Total possible score is 42 . ED: Notify Physician for NIHSS increase by > / = 3 points. Inpatient: RN or Physician to activate a stroke alert for NIHSS increase of > / = 3 points. Coma Scale [Assess] -Eye Opening Spontaneous -Motor Obeys Commands -Verbal Confused [Total] -Coma Scale Total 14 05/02/25 1221 <Electronically signed by Vern Rao DO> Cosigner Signature (if applicable): CC: ~ Signed [facility] Work Phone: 1(132) 163-997606-15-2025 Progress note [facility] Medical Records Department [address] [place] [address] Progress Note - Hospitalist 05/02/25 1225 MR#: [id number] Acct: [id number] Name: MICHAEL MULLINS Rep #:[id number] : 1940 85 From: Vern Rao DO PCP: Dr. Baron Espinoza MD Status:ADM I N Location: [place] [address] Reason for Visit Reason for Visit: Diagnoses Fracture of unspecified part of neck of left femur, initial encounter for closedfracture (04/23/25) Displaced intertrochanteric fracture of left femur, initial encounter for closedfracture (04/23/25) Unspecified fall, initial encounter (04/23/25) Subjective Subjective Patient was seen and examined today, his sodium is still mildly elevated, I haveelected to place him on D5 at 60 cc an hour and repeat the BMP tomorrow. Patient was evaluated by the night hospitalistwho felt that the patient had pneumonia based on chest x-ray, he was placed on Zosyn, at this time I will continue the Zosyn but I am not absolutely sure he has pneumonia. He was also placed on IV Bumex but I feel the dose is too high for the patient, I have switched him to Lasix 20 mg every 12 hours IV. Patient remains confused and mildly agitated, I talked to the son who was in the room at the time my examination and told him that I would increase patient's Seroquel to see if it could providesome relief for the patient. Objective Data Objective Data Vital Signs: Vital Signs Temp Pulse Resp BP Pulse Ox O2 Del Method O2 Flow Rate 98.4 F 66 20 H 161/73 H 94 Nasal Cannula 2 05/02/25 11:58 05/02/25 11:58 05/02/25 11:58 05/02/25 11:58 05/02/25 11:58 05/02/25 11:58 05/02/25 11:58 Oxygen Flow Rate (L/min) 2 Oxygen Delivery Method Nasal Cannula Weight: 74.5 kg Body Mass Index (BMI) 25.7 Intake & Output: Intake and Output for Last 24 Hours 04/30/25 05/01/2525 23:59 23:59 23:59 Intake Total 2022.33 / 2022.33 2830.00 / 2830.00 815 / 815 Output Total 1300 / 1300 1425 / 1425 1250 / 1250 Balance 723.33 / 723.33 1405.00 / 1405.00 -435 / -435 Lab / Micro Data 05/02/25 05:46 05/02/25 05:46 Labs: Laboratory Results - last 24 hr 05/01/25 01:10: WBC 12.6 H, RBC 2.22 L, Hgb 7.2 L, Hct 21.3 L, MCV 95.9 H, MCH 32.4 H, MCHC 33.8, RDW Std Deviation 57.7 H, RDW Coeff of Eduarda 16.9 H, Plt Count 208, MPV 10.8, Immature Gran % (Auto) 1.000 H, Neut % (Auto) 92.0 H, Lymph % (Auto) 2.2 L, Parker % (Auto) 4.5, Eos % (Auto) 0.2, Baso % (Auto) 0.1, Absolute Neuts (auto) 11.6 H, Absolute Lymphs (auto) 0.28 L, Nucleated RBC % 4.0 05/01/25 16:54: POC Glucose 121 H 05/01/25 22:02: POC Glucose 129 H 05/02/25 01:10: [place] [address] H 05/02/25 05:46: WBC 11.9 H, RBC 2.29 L, Hgb 7.3 L, Hct 21.9 L, MCV 95.6 H, MCH 31.9, MCHC 33.3, RDWStd Deviation 56.1 H, RDW Coeff of Eduarda 16.6 H, Plt Count 226, MPV 11.3, Immature Gran % (Auto) 1.200 H, Neut % (Auto) 84.8 H, Lymph % (Auto) 7.7 L, Parker % (Auto) 5.8, Eos % (Auto) 0.4, Baso % (Auto) 0.1, Absolute Neuts (auto) 10.1 H, Absolute Lymphs (auto) 0.92, Nucleated RBC % 4.5, Sodium 152 H, Potassium 4.4, Chloride 125 H, Carbon Dioxide 15.2 L, Anion Gap 12, BUN 54 H, Creatinine 1.81 H, Estim Creat Clear Calc 27.91 L, Est GFR (MDRD) Non-Af 37 L, BUN/Creatinine Ratio 29.8 H, Glucose 106 H, Calcium 8.2 05/02/25 06:43: POC Glucose 95 05/02/25 11:52: POC Glucose 100 ABG Data ABG results: ABG 05/01/25 23:42 Specimen Type ART Sample Site R Radial pH 7.40 Bicarbonate Actual 16.6 L Total CO2 17 Base Excess -8 L O2 Saturation 96 O2 % 4.0 ABG pCO2 26.8 L ABG pO2 79 Samantha Test N/A O2 Delivery Device Cannula Vent Mode Not entered Radiography Diagnostic Testing: Radiology Impression Chest X-Ray 05/01/25 23:59 IMPRESSION: 1. Low lung volume 2. Chronic elevation left hemidiaphragm with mild linear atelectasis left mid to lower lung zone. 3. Mild patchy right lung atelectasis versus infiltrate Reading Location: [facility] Physical Exam Narrative alert, no apparent distress, average body habitus and healthy appearing General Appearance: cooperative, well kempt and well developed Orientation / Consciousness: awake and oriented to person HEENT normocephalic, head/scalp atraumatic and moist oral mucous membranes Head and Scalp: normocephalic Eyes PERRL, EOMs intact bilaterally and conjunctivae normal Neck supple, no JVD, thyroid normal and no carotid bruits General: trachea midline Resp normal respiratory effort, no retractions, no use of accessory muscles and clearto auscultation bilaterally Auscultation: Negative for rales, rhonchi or wheezes Cardio regular rate, regular rhythm, S1 normal heart sound, S2 normal heart sound, no murmurs, no rub and no gallops GI normal to inspection, nondistended, normoactive bowel sounds, soft to palpation,non-tender and non-distended Extremity no clubbing, cyanosis or edema Skin no rashes or lesions noted General Skin Exam: no breakdown Neuro CN's II-XII intact bilaterally, no focal motor deficits and no sensory deficits noted Neuro Narrative: Patient is alert, he is confused, he does not appear agitated Sensorium / Orientation: awake, alert and oriented to person Speech: speech normal Psych Psych Narrative: Patient exhibits cognitive impairment, he is alert and does not carry on a conversation but says a few words which do not make sense. Assessment & Plan Assessment/Plan (1) Intertrochanteric fracture of left femur: (2) Closed fracture of left hip: PLAN: Plan 1. 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 Patient's white blood cell count is slightly high #4 hyperkalemia-resolved at this time #5 chronic kidney disease stage IV-patient's IV fluids will be continued, I havedecided to decreasehis IV rate to 75 cc/h, patient is still on D5 half- normal saline #6 whranqgp-ycuukzez-ilrueifjwbi care, management, recovery, and prognosis #7 slightly low platelet count-no treatment necessary #8 acute anemia-secondary to acute blood loss from left hip fracture-hemoglobin was 8.6 today and appears stable #9 cardiomyopathy by history-patient's echocardiogram showed an ejection fraction of 55% #10 subacute occipital infarction-patient is on a baby aspirin a day #11 hypernatremia-patient is on D5W at 60 an hour, BMP will be rechecked tomorrow #12 pneumonia versus possible CHF-patient remains on Zosyn and IV Lasix for now,I would reevaluate him tomorrow Total clinical time spent by myself addressing the patient's medical issues, reviewing all of his data, and collaborating with the patient's care team: 35 minutes Charges/Coding Visit Charges Inpatient E&M: 68987 Subs Hosp L2 NIHSS NIHSS Nursing Documentation NIHSS Nursing Documentation: NIHSS: Ischemic Stroke/TIA Start: 04/26/25 10:12 Freq: Q4H Status: Complete Protocol: Activity Type Activity Date Activity User E-sign Co-sign Detail Recorded Client Recorded Date Recorded By Document 04/29/25 12:00 [id number] 04/29/25 12:36 SS 04/29/25 12:00 NIH Stroke Scale [NIHSS] A score of 0 is "normal" or asymptomatic . Total possible score is 42. Inpatient: RN or Physician to activate a stroke alert for onset of new stroke symptoms or with NIHSS increase >/= 3 points. Following change in neurological status, NIHSS will be performed per physician order or more frequently PRN. -1a. Level of Consciousness 0 - Alert; keenly responsive -1b. LOC Questions 2 - Answers NEITHER question correctly -1c. LOC Commands 0 - Performs BOTH tasks correctly -2. Best Gaze 0 - Normal -3. Visual 0 - No visual loss -4. Facial Palsy 0 - Normal symmetrical movements -5a. Left Arm 2 - Some effort against gravity; -5b. Right Arm 1 - Drift; arm drifts downward but doesn?t hit the bed -6a. Left Leg UN - Amputation or joint fusion, explain : -'UN' explanation Recent hip fx -6b. Right Leg 2 - Some effort against gravity; -7. Limb Ataxia UN - Amputation or joint fusion, explain -'UN' explanation LFT HIP FX, PT NOT COOPERATING BUE ASESSMENT -8. Sensory 0 - Normal; no sensory loss -9. Best Language 2 - Severe aphasia; -10. Dysarthria 1 = Mild-to- moderate dysarthria; -11. Extinction and Inattention 0 - No abnormality -Total 10 Query Text:A score of 0 is "normal" or asymptomatic. Total possible score is 42 . ED: Notify Physician for NIHSS increase by > / = 3 points. Inpatient: RN or Physician to activate a stroke alert for NIHSS increase of > / = 3 points. Coma Scale [Assess] -Eye Opening Spontaneous -Motor Obeys Commands -Verbal Confused [Total] -Coma Scale Total 14 05/02/25 1229 Cosigner Signature (if applicable): CC: ~ Signed [facility]06-15-2025 Progress note Author Mira Mims [facility] Note Date/Time May 02, 2025 3:45 am [facility] Medical Records Department [address] [place] [address] Progress Note - Hospitalist 05/01/25 3227 MR#: [id number] Acct: [id number] Name: MICHAEL MULLINS Rep #:[id number] : 1940 85 From: Mira Mims DO PCP: Dr. Barno Espinoza MD Status:ADM I N Location: [place] [address] Hospitalist Note Called secondary to increased work of breathing with respiratory rate between 30and 40. Requiring more oxygen up to 4 L with expiratory wheezes. ABG was just performed at 2342 and showed pH of 7.40PCO2 of 26.8 and pO2 of 79 on 4 L nasal cannula. Will check BNP, CBC, and stat chest x-ray. Start aerosols. If workupis unremarkable, may need to consider DVT with hip surgery. Would need to discuss with neurology if anticoagulation is needed due to recent stroke. 05/02/25 0001 <Electronically signed by Mira Mims DO> Cosigner Signature (if applicable): CC: ~ Signed ADDENDUM by Dr. Mira Mims DO on 05/02/25 at 0138 Addendum Chest x-ray is consistent with a right middle lobe pneumonia. Will make n.p.o. Patient did have a modified barium swallow done on the with modified diet in place. Speech therapy will need to reevaluate. Start Zosyn. CBC and BMP are still pending however with chest x-ray appearing like it appears at this time I really do think his increased oxygenation is most likely related to a developed aspiration pneumonia. 05/02/25 0138<Electronically signed by Mira Mims DO> Cosigner Signature (if applicable): cc: ~* Signed ADDENDUM by Dr. Mira Mims DO on 05/02/25 at 0345 Addendum BNP is also markedly elevated. Stop IV fluids. Bumex 2 mg p.o. twice daily. Repeat BMP at 12 PM. 05/02/25 0345<Electronically signed by Mira Mims DO> Cosigner Signature (if applicable): cc: ~* Signed [facility] Work Phone: 1(320) 355-336706-15-2025 Progress note [facility] Medical Records Department [address] [place] [address] Progress Note - Hospitalist 05/01/25 9673 MR#: [id number] Acct: [id number] Name: MICHAEL MULLINS Rep #:[id number] : 1940 85 From: Mira Mims DO PCP: Dr. Baron Espinoza MD Status:ADM I N Location: [place] [address] Hospitalist Note Called secondary to increased work of breathing with respiratory rate between 30and 40. Requiring more oxygen up to 4 L with expiratory wheezes. ABG was just performed at 2342 and showed pH of 7.40PCO2 of 26.8 and pO2 of 79 on 4 L nasal cannula. Will check BNP, CBC, and stat chest x-ray. Start aerosols. If workupis unremarkable, may need to consider DVT with hip surgery. Would need to discuss with neurology if anticoagulation is needed due to recent stroke. 05/02/25 0001 Cosigner Signature (if applicable): CC: ~ Signed ADDENDUM by Dr. Mira Mims DO on 05/02/25 at 0138 Addendum Chest x-ray is consistent with a right middle lobe pneumonia. Will make n.p.o. Patient did have a modified barium swallow done on the with modified diet in place. Speech therapy will need to reevaluate. Start Zosyn. CBC and BMP are still pending however with chest x-ray appearing like it appears at this time I really do think his increased oxygenation is most likely related to a developed aspiration pneumonia. 05/02/25 0138 Cosigner Signature (if applicable): cc: ~* Signed ADDENDUM by Dr. Mira Mims DO on 05/02/25 at 0345 Addendum BNP is also markedly elevated. Stop IV fluids. Bumex 2 mg p.o. twice daily. Repeat BMP at 12 PM. 05/02/25 0345 Cosigner Signature (if applicable): cc: ~* Signed [facility]06-15-2025 Radiology Diagnostic study note [facility] Imaging Services [address] [place] [address] Chest 1 View (Portable) MR#: [id number] Acct: [id number] Name: MICHAEL MULLINS Rep #: [id number] : 1940 M 85 From: Yvan Esqueda MD PCP: Dr. Baron Espinoza MD Status: ADM I N Study:Chest 1 View (Portable) Date of Exam: 05/01/25 Exam# [id number] Ordering Dr: Trisha Mims DO PROCEDURE: CHEST 1 VIEW (PORTABLE) 05/01/2025 REASON FOR EXAM: SOB Shortness of breath TECHNIQUE: Frontal view of the chest. COMPARISON: 04/23/2025 FINDINGS: Hardware: Metallic clips left upper quadrant abdomen. Postsurgical changes of the cervical spine. Heart: Heart normal size. Mediastinal silhouette appears stable. Lungs: Chronic elevation left hemidiaphragm. Chronic linear atelectasis left mid to lower lung zone. Mild patchy right lung atelectasis versus infiltrate. No pneumothorax. Bones: Osseous structures grossly appear intact. Other: Low lung volume RAD/Chest 1 View (Portable) IMPRESSION: 1. Low lung volume 2. Chronic elevation left hemidiaphragm with mild linear atelectasis left mid to lower lung zone. 3. Mild patchy right lung atelectasis versus infiltrate Reading [facility] CC: Dr. Mira Mims DO; Dr. Baron Espinoza MD ~ Unit Supervisor: Signed [facility]06-14-2025 Progress note Author [facility] Note Date/Time May 01, 2025 5:33 pm [facility] Medical Records Department [address] [place] [address] Progress Note - Hospitalist 05/01/25 1728 MR#: [id number] Acct: [id number] Name: MICHAEL MULLINS Rep #:[id number] : 1940 85 From: Vern Rao DO PCP: Dr. Baron Espinoza MD Status:ADM I N Location: [place] [address] Reason for Visit Reason for Visit: Diagnoses Fracture of unspecified part of neck of left femur, initial encounter for closedfracture (04/23/25) Displaced intertrochanteric fracture of left femur, initial encounter for closedfracture (04/23/25) Unspecified fall, initial encounter (04/23/25) Subjective Subjective Patient was seen and examined today, I talked briefly with the , she would like him to receive medication for his agitation. Patient has been pulling his oxygen off today, he is on 2 L. I placed the patient on Seroquel 12.5 mg twice a day. Patient's sodium level was notably improved, I have decided to reduce the patient's IV rate to 75 an hour. I will get a repeat BMP tomorrow Objective Data Objective Data Vital Signs: Vital Signs Temp Pulse Resp BP Pulse Ox O2 Del Method O2 Flow Rate 97.8 F 99 22 H 147/98 H 91 Nasal Cannula 2 05/01/25 14:49 05/01/25 14:49 05/01/25 14:49 05/01/25 14:49 05/01/25 14:49 05/01/25 14:49 05/01/25 14:49 Oxygen Flow Rate (L/min) 2 Oxygen Delivery Method Nasal Cannula Weight: 74.7 kg Body Mass Index (BMI) 25.8 Intake & Output: Intake and Output for Last 24 Hours 04/29/25 04/30/25 05/01/25 23:59 23:59 23:59 Intake Total 2186.25 / 2186.25 2023.33 / 2023.33 2628.33 / 2628.33 Output Total 1600 / 1600 1300 / 1300 775 / 775 Balance 586.25 / 586.25 723.33 / 723.33 1853.33 / 1853.33 Lab / Micro Data 04/28/25 06:39 05/01/25 04:05 Labs: Laboratory Results - last 24 hr 04/30/25 21:16: POC Glucose 114 H 05/01/25 04:05: Sodium 151 H, Potassium 4.5, Chloride 127 H*, Carbon Dioxide 15.3 L, Anion Gap 9, BUN 58 H, Creatinine 1.83 H, Estim Creat Clear Calc 27.60 L, Est GFR (MDRD) Non-Af 36 L, BUN/Creatinine Ratio 31.8 H, Glucose 142 H, Calcium 8.1 05/01/25 06:23: POC Glucose 132 H 05/01/25 11:34: POC Glucose 120 H 05/01/25 16:54: POC Glucose 121 H Physical Exam Narrative alert, no apparent distress, average body habitus and healthy appearing General Appearance: cooperative, well kempt and well developed Orientation / Consciousness: awake and oriented to person HEENT normocephalic, head/scalp atraumatic and moist oral mucous membranes Head and Scalp: normocephalic Eyes PERRL, EOMs intact bilaterally and conjunctivae normal Neck supple, no JVD, thyroid normal and no carotid bruits General: trachea midline Resp normal respiratory effort, no retractions, no use of accessory muscles and clearto auscultation bilaterally Auscultation: Negative for rales, rhonchi or wheezes Cardio regular rate, regular rhythm, S1 normal heart sound, S2 normal heart sound, no murmurs, no rub and no gallops GI normal to inspection, nondistended, normoactive bowel sounds, soft to palpation,non-tender and non-distended Extremity no clubbing, cyanosis or edema Skin no rashes or lesions noted General Skin Exam: no breakdown Neuro CN's II-XII intact bilaterally, no focal motor deficits and no sensory deficits noted Neuro Narrative: Patient is alert, he is confused, he does not appear agitated Sensorium / Orientation: awake, alert and oriented to person Speech: speech normal Psych Psych Narrative: Patient exhibits cognitive impairment, he is alert and does not carry on a conversation but says a few words which do not make sense. Assessment & Plan Assessment/Plan (1) Intertrochanteric fracture of left femur: (2) Closed fracture of left hip: PLAN: Plan 1. 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 Patient's white blood cell count is slightly high #4 hyperkalemia-resolved at this time #5 chronic kidney disease stage IV-patient's IV fluids will be continued, I havedecided to decrease his IV rate to 75 cc/h, patient is still on D5 half- normal saline #6 bhajmmcf-rnoxhxue-qazuhcbmypu care, management, recovery, and prognosis #7 slightly low platelet count-no treatment necessary #8 acute anemia-secondary to acute blood loss from left hip fracture-hemoglobin was 8.6 today and appears stable #9 cardiomyopathy by history-patient's echocardiogram showed an ejection fraction of 55% #10 subacute occipital infarction-patient is on a baby aspirin a day #11 hypernatremia-patient's IV rate will be reduced to 75/h, he is on D5 half- normal saline, BMP will be rechecked tomorrow Total clinical time spent by myself addressing the patient's medical issues, reviewing all of his data, and collaborating with the patient's care team: 35 minutes Charges/Coding Visit Charges Inpatient E&M: 22984 Subs Hosp L2 NIHSS NIHSS Nursing Documentation NIHSS Nursing Documentation: NIHSS: Ischemic Stroke/TIA Start: 04/26/25 10:12 Freq: Q4H Status: Complete Protocol: Activity Type Activity Date Activity User E-sign Co-sign Detail Recorded Client Recorded Date Recorded By Document 04/29/25 12:00 [id number] 04/29/25 12:36 SS 04/29/25 12:00 NIH Stroke Scale [NIHSS] A score of 0 is "normal" or asymptomatic . Total possible score is 42. Inpatient: RN or Physician to activate a stroke alert for onset of new stroke symptoms or with NIHSS increase >/= 3 points. Following change in neurological status, NIHSS will be performed per physician order or more frequently PRN. -1a. Level of Consciousness 0 - Alert; keenly responsive -1b. LOC Questions 2 - Answers NEITHER question correctly -1c. LOC Commands 0 - Performs BOTH tasks correctly -2. Best Gaze 0 - Normal -3. Visual 0 - No visual loss -4. Facial Palsy 0 - Normal symmetrical movements -5a. Left Arm 2 - Some effort against gravity; -5b. Right Arm 1 - Drift; arm drifts downward but doesn?t hit the bed -6a. Left Leg UN - Amputation or joint fusion, explain : -'UN' explanation Recent hip fx -6b. Right Leg 2 - Some effort against gravity; -7. Limb Ataxia UN - Amputation or joint fusion, explain -'UN' explanation LFT HIP FX, PT NOT COOPERATING BUE ASESSMENT -8. Sensory 0 - Normal; no sensory loss -9. Best Language 2 - Severe aphasia; -10. Dysarthria 1 = Mild-to- moderate dysarthria; -11. Extinction and Inattention 0 - No abnormality -Total 10 Query Text:A score of 0 is "normal" or asymptomatic. Total possible score is 42 . ED: Notify Physician for NIHSS increase by > / = 3 points. Inpatient: RN or Physician to activate a stroke alert for NIHSS increase of > / = 3 points. Coma Scale [Assess] -Eye Opening Spontaneous -Motor Obeys Commands -Verbal Confused [Total] -Coma Scale Total 14 05/01/25 1733 <Electronically signed by Vern Rao DO> Cosigner Signature (if applicable): CC: ~ Signed [facility] Work Phone: 1(282) 117-262006-14-2025 Progress note Author [facility] Note Date/Time May 01, 2025 5:26 pm [facility] Medical Records Department [address] [place] [address] Progress Note - Hospitalist 04/30/25 185 MR#: [id number] Acct: [id number] Name: MICHAEL MULLINS Rep #:[id number] : 1940 85 From: Vern Rao DO PCP: Dr. Baron Espinoza MD Status:ADM I N Location: [place] [address] Reason for Visit Reason for Visit: Diagnoses Fracture of unspecified part of neck of left femur, initial encounter for closedfracture (04/23/25) Displaced intertrochanteric fracture of left femur, initial encounter for closedfracture (04/23/25) Unspecified fall, initial encounter (04/23/25) Subjective Subjective Patient was seen and examined today, his sodium is 153 today and his chloride remains high, I have decided to increase the patient's IV fluids to 100 an hour and recheck his BMP tomorrow. Patient is still confused and pulling off his oxygen, his tries to replace it but he gets frustrated and pulls it off again. I have elected to take the patient off telemetry at this time. We are waiting pre-CERT for a fpc facility. Objective Data Objective Data Vital Signs: Vital Signs Temp Pulse Resp BP Pulse Ox O2 Del Method O2 Flow Rate 97.8 F 79 18 116/85 H 92 Nasal Cannula 3 04/30/25 13:58 04/30/25 13:58 04/30/25 13:58 04/30/25 13:58 04/30/25 13:59 04/30/25 14:00 04/30/25 14:00 Oxygen Flow Rate (L/min) 3 Oxygen Delivery Method Nasal Cannula Weight: 74.1 kg Body Mass Index (BMI) 25.6 Intake & Output: Intake and Output for Last 24 Hours 04/28/25 04/29/25 04/30/25 23:59 23:59 23:59 Intake Total 1120 / 1120 2186.25 / 2186.25 1240 / 1240 Output Total 1999 / 1999 1600 / 1600 900 / 900 Balance -880 / -880 586.25 / 586.25 340 / 340 Lab / Micro Data 04/28/25 06:39 05/01/25 04:05 Labs: Laboratory Results - last 24 hr 04/29/25 23:00: POC Glucose 142 H 04/30/25 04:32: Sodium 153 H, Potassium 4.5, Chloride 126 H, Carbon Dioxide 16.4L, Anion Gap 10, BUN 61 H, Creatinine 1.93 H, Estim Creat Clear Calc 26.17 L, Est GFR (MDRD) Non-Af 34 L, BUN/Creatinine Ratio 31.5 H, Glucose 121 H, Calcium 8.4 04/30/25 06:28: POC Glucose 110 H 04/30/25 11:06: POC Glucose 127 H 04/30/25 16:30: POC Glucose 131 H Physical Exam Narrative alert, no apparent distress, average body habitus and healthy appearing General Appearance: cooperative, well kempt and well developed Orientation / Consciousness: awake and oriented to person HEENT normocephalic, head/scalp atraumatic and moist oral mucous membranes Head and Scalp: normocephalic Eyes PERRL, EOMs intact bilaterally and conjunctivae normal Neck supple, no JVD, thyroid normal and no carotid bruits General: trachea midline Resp normal respiratory effort, no retractions, no use of accessory muscles and clearto auscultation bilaterally Auscultation: Negative for rales, rhonchi or wheezes Cardio regular rate, regular rhythm, S1 normal heart sound, S2 normal heart sound, no murmurs, no rub and no gallops GI normal to inspection, nondistended, normoactive bowel sounds, soft to palpation,non-tender and non-distended Extremity no clubbing, cyanosis or edema Skin no rashes or lesions noted General Skin Exam: no breakdown Neuro CN's II-XII intact bilaterally, no focal motor deficits and no sensory deficits noted Neuro Narrative: Patient is alert, he is confused, he does not appear agitated Sensorium / Orientation: awake, alert and oriented to person Speech: speech normal Psych Psych Narrative: Patient exhibits cognitive impairment, he is alert and does not carry on a conversation but says a few words which do not make sense. Assessment & Plan Assessment/Plan (1) Intertrochanteric fracture of left femur: (2) Closed fracture of left hip: PLAN: Plan 1. 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 Patient's white blood cell count is slightly high #4 hyperkalemia-resolved at this time #5 chronic kidney disease stage IV-patient's IV fluids will be continued, I havedecided to increase the IV rate to 100 cc/h, patient is on D5 half-normal saline #6 kgdptbiv-dhcsugvg-jcvvpcyuwop care, management, recovery, and prognosis #7 slightly low platelet count-no treatment necessary #8 acute anemia-secondary to acute blood loss from left hip fracture-hemoglobin was 8.6 today and appears stable #9 cardiomyopathy by history-patient's echocardiogram showed an ejection fraction of 55% #10 subacute occipital infarction-patient is on a baby aspirin a day Total clinical time spent by myself addressing the patient's medical issues, reviewing all of his data, and collaborating with the patient's care team: 35 minutes Charges/Coding Visit Charges Inpatient E&M: 83900 Subs Hosp L2 NIHSS NIHSS Nursing Documentation NIHSS Nursing Documentation: NIHSS: Ischemic Stroke/TIA Start: 04/26/25 10:12 Freq: Q4H Status: Complete Protocol: Activity Type Activity Date Activity User E-sign Co-sign Detail Recorded Client Recorded Date Recorded By Document 04/29/25 12:00 [id number] 04/29/25 12:36 SS 04/29/25 12:00 NIH Stroke Scale [NIHSS] A score of 0 is "normal" or asymptomatic . Total possible score is 42. Inpatient: RN or Physician to activate a stroke alert for onset of new stroke symptoms or with NIHSS increase >/= 3 points. Following change in neurological status, NIHSS will be performed per physician order or more frequently PRN. -1a. Level of Consciousness 0 - Alert; keenly responsive -1b. LOC Questions 2 - Answers NEITHER question correctly -1c. LOC Commands 0 - Performs BOTH tasks correctly -2. Best Gaze 0 - Normal -3. Visual 0 - No visual loss -4. Facial Palsy 0 - Normal symmetrical movements -5a. Left Arm 2 - Some effort against gravity; -5b. Right Arm 1 - Drift; arm drifts downward but doesn?t hit the bed -6a. Left Leg UN - Amputation or joint fusion, explain : -'UN' explanation Recent hip fx -6b. Right Leg 2 - Some effort against gravity; -7. Limb Ataxia UN - Amputation or joint fusion, explain -'UN' explanation LFT HIP FX, PT NOT COOPERATING BUE ASESSMENT -8. Sensory 0 - Normal; no sensory loss -9. Best Language 2 - Severe aphasia; -10. Dysarthria 1 = Mild-to- moderate dysarthria; -11. Extinction and Inattention 0 - No abnormality -Total 10 Query Text:A score of 0 is "normal" or asymptomatic. Total possible score is 42 . ED: Notify Physician for NIHSS increase by > / = 3 points. Inpatient: RN or Physician to activate a stroke alert for NIHSS increase of > / = 3 points. Coma Scale [Assess] -Eye Opening Spontaneous -Motor Obeys Commands -Verbal Confused [Total] -Coma Scale Total 14 05/01/25 1726 <Electronically signed by Vern Rao DO> Cosigner Signature (if applicable): CC: ~ Signed [facility] Work Phone: [phone] 145-945506-14-2025 Progress note [facility] Medical Records Department [address] [place] [address] Progress Note - Hospitalist 05/01/25 1728 MR#: [id number] Acct: [id number] Name: MICHAEL MULLINS Rep #:[id number] : 1940 85 From: Vern Rao DO PCP: Dr. Baron Espinoza MD Status:ADM I N Location: [place] [address] Reason for Visit Reason for Visit: Diagnoses Fracture of unspecified part of neck of left femur, initial encounter for closedfracture (04/23/25) Displaced intertrochanteric fracture of left femur, initial encounter for closedfracture (04/23/25) Unspecified fall, initial encounter (04/23/25) Subjective Subjective Patient was seen and examined today, I talked briefly with the , she would like him to receive medication for his agitation. Patient has been pulling his oxygen off today, he is on 2 L. I placed the patient on Seroquel 12.5 mg twice a day. Patient's sodium level was notably improved, I have decided to reduce the patient's IV rate to 75 an hour. I will get a repeat BMP tomorrow Objective Data Objective Data Vital Signs: Vital Signs Temp Pulse Resp BP Pulse Ox O2 Del Method O2 Flow Rate 97.8 F 99 22 H 147/98 H 91 Nasal Cannula 2 05/01/25 14:49 05/01/25 14:49 05/01/25 14:49 05/01/25 14:49 05/01/25 14:49 05/01/25 14:49 05/01/25 14:49 Oxygen Flow Rate (L/min) 2 Oxygen Delivery Method Nasal Cannula Weight: 74.7 kg Body Mass Index (BMI) 25.8 Intake & Output: Intake and Output for Last 24 Hours 04/29/25 04/30/25 05/01/25 23:59 23:59 23:59 Intake Total 2186.25 / 2186.25 2023.33 / 2023.33 2628.33 / 2628.33 Output Total 1600 / 1600 1300 / 1300 775 / 775 Balance 586.25 / 586.25 723.33 / 723.33 1853.33 / 1853.33 Lab / Micro Data 04/28/25 06:39 05/01/25 04:05 Labs: Laboratory Results - last 24 hr 04/30/25 21:16: POC Glucose 114 H 05/01/25 04:05: Sodium 151 H, Potassium 4.5, Chloride 127 H*, Carbon Dioxide 15.3 L, Anion Gap 9, BUN 58 H, Creatinine 1.83 H, Estim Creat Clear Calc 27.60 L, Est GFR (MDRD) Non-Af 36 L, BUN/Creatinine Ratio 31.8 H, Glucose 142 H, Calcium 8.1 05/01/25 06:23: POC Glucose 132 H 05/01/25 11:34: POC Glucose 120 H 05/01/25 16:54: POC Glucose 121 H Physical Exam Narrative alert, no apparent distress, average body habitus and healthy appearing General Appearance: cooperative, well kempt and well developed Orientation / Consciousness: awake and oriented to person HEENT normocephalic, head/scalp atraumatic and moist oral mucous membranes Head and Scalp: normocephalic Eyes PERRL, EOMs intact bilaterally and conjunctivae normal Neck supple, no JVD, thyroid normal and no carotid bruits General: trachea midline Resp normal respiratory effort, no retractions, no use of accessory muscles and clearto auscultation bilaterally Auscultation: Negative for rales, rhonchi or wheezes Cardio regular rate, regular rhythm, S1 normal heart sound, S2 normal heart sound, no murmurs, no rub and no gallops GI normal to inspection, nondistended, normoactive bowel sounds, soft to palpation,non-tender and non-distended Extremity no clubbing, cyanosis or edema Skin no rashes or lesions noted General Skin Exam: no breakdown Neuro CN's II-XII intact bilaterally, no focal motor deficits and no sensory deficits noted Neuro Narrative: Patient is alert, he is confused, he does not appear agitated Sensorium / Orientation: awake, alert and oriented to person Speech: speech normal Psych Psych Narrative: Patient exhibits cognitive impairment, he is alert and does not carry on a conversation but says a few words which do not make sense. Assessment & Plan Assessment/Plan (1) Intertrochanteric fracture of left femur: (2) Closed fracture of left hip: PLAN: Plan 1. 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 Patient's white blood cell count is slightly high #4 hyperkalemia-resolved at this time #5 chronic kidney disease stage IV-patient's IV fluids will be continued, I havedecided to decreasehis IV rate to 75 cc/h, patient is still on D5 half- normal saline #6 kxlywifb-sbfonhwv-sunbjvvxflb care, management, recovery, and prognosis #7 slightly low platelet count-no treatment necessary #8 acute anemia-secondary to acute blood loss from left hip fracture-hemoglobin was 8.6 today and appears stable #9 cardiomyopathy by history-patient's echocardiogram showed an ejection fraction of 55% #10 subacute occipital infarction-patient is on a baby aspirin a day #11 hypernatremia-patient's IV rate will be reduced to 75/h, he is on D5 half- normal saline, BMP will be rechecked tomorrow Total clinical time spent by myself addressing the patient's medical issues, reviewing all of his data, and collaborating with the patient's care team: 35 minutes Charges/Coding Visit Charges Inpatient E&M: 55977 Subs Hosp L2 NIHSS NIHSS Nursing Documentation NIHSS Nursing Documentation: NIHSS: Ischemic Stroke/TIA Start: 04/26/25 10:12 Freq: Q4H Status: Complete Protocol: Activity Type Activity Date Activity User E-sign Co-sign Detail Recorded Client Recorded Date Recorded By Document 04/29/25 12:00 [id number] 04/29/25 12:36 04/29/25 12:00 NIH Stroke Scale [NIHSS] A score of 0 is "normal" or asymptomatic . Total possible score is 42. Inpatient: RN or Physician to activate a stroke alert for onset of new stroke symptoms or with NIHSS increase >/= 3 points. Following change in neurological status, NIHSS will be performed per physician order or more frequently PRN. -1a. Level of Consciousness 0 - Alert; keenly responsive -1b. LOC Questions 2 - Answers NEITHER question correctly -1c. LOC Commands 0 - Performs BOTH tasks correctly -2. Best Gaze 0 - Normal -3. Visual 0 - No visual loss -4. Facial Palsy 0 - Normal symmetrical movements -5a. Left Arm 2 - Some effort against gravity; -5b. Right Arm 1 - Drift; arm drifts downward but doesn?t hit the bed -6a. Left Leg UN - Amputation or joint fusion, explain : -'UN' explanation Recent hip fx -6b. Right Leg 2 - Some effort against gravity; -7. Limb Ataxia UN - Amputation or joint fusion, explain -'UN' explanation LFT HIP FX, PT NOT COOPERATING BUE ASESSMENT -8. Sensory 0 - Normal; no sensory loss -9. Best Language 2 - Severe aphasia; -10. Dysarthria 1 = Mild-to- moderate dysarthria; -11. Extinction and Inattention 0 - No abnormality -Total 10 Query Text:A score of 0 is "normal" or asymptomatic. Total possible score is 42 . ED: Notify Physician for NIHSS increase by > / = 3 points. Inpatient: RN or Physician to activate a stroke alert for NIHSS increase of > / = 3 points. Coma Scale [Assess] -Eye Opening Spontaneous -Motor Obeys Commands -Verbal Confused [Total] -Coma Scale Total 14 05/01/25 5619 Cosigner Signature (if applicable): CC: ~ Signed [facility]06-14-2025 Progress note [facility] Medical Records Department [address] [place] [address] Progress Note - Hospitalist 04/30/25 1850 MR#: [id number] Acct: [id number] Name: MICHAEL MULLINS Rep #:[id number] : 1940 85 From: Vern Rao DO PCP: Dr. Baron Espinoza MD Status:ADM I N Location: [place] [address] Reason for Visit Reason for Visit: Diagnoses Fracture of unspecified part of neck of left femur, initial encounter for closedfracture (04/23/25) Displaced intertrochanteric fracture of left femur, initial encounter for closedfracture (04/23/25) Unspecified fall, initial encounter (04/23/25) Subjective Subjective Patient was seen and examined today, his sodium is 153 today and his chloride remains high, I have decided to increase the patient's IV fluids to 100 an hour and recheck his BMP tomorrow. Patient is still confused and pulling off his oxygen, his tries to replace it but he gets frustrated and pulls it off again. I have elected to take the patient off telemetry at this time. We are waiting pre-CERT for a fpc facility. Objective Data Objective Data Vital Signs: Vital Signs Temp Pulse Resp BP Pulse Ox O2 Del Method O2 Flow Rate 97.8 F 79 18 116/85 H 92 Nasal Cannula 3 04/30/25 13:58 04/30/25 13:58 04/30/25 13:58 04/30/25 13:58 04/30/25 13:59 04/30/25 14:00 04/30/25 14:00 Oxygen Flow Rate (L/min) 3 Oxygen Delivery Method Nasal Cannula Weight: 74.1 kg Body Mass Index (BMI) 25.6 Intake & Output: Intake and Output for Last 24 Hours 04/28/25 04/29/25 04/30/25 23:59 23:59 23:59 Intake Total 1120 / 1120 2186.25 / 2186.25 1240 / 1240 Output Total 1999 / 1999 1600 / 1600 900 / 900 Balance -880 / -880 586.25 / 586.25 340 / 340 Lab / Micro Data 04/28/25 06:39 05/01/25 04:05 Labs: Laboratory Results - last 24 hr 04/29/25 23:00: POC Glucose 142 H 04/30/25 04:32: Sodium 153 H, Potassium 4.5, Chloride 126 H, Carbon Dioxide 16.4L, Anion Gap 10, BUN 61 H, Creatinine 1.93 H, Estim Creat Clear Calc 26.17 L, Est GFR (MDRD) Non-Af 34 L, BUN/Creatinine Ratio 31.5 H, Glucose 121 H, Calcium 8.4 04/30/25 06:28: POC Glucose 110 H 04/30/25 11:06: POC Glucose 127 H 04/30/25 16:30: POC Glucose 131 H Physical Exam Narrative alert, no apparent distress, average body habitus and healthy appearing General Appearance: cooperative, well kempt and well developed Orientation / Consciousness: awake and oriented to person HEENT normocephalic, head/scalp atraumatic and moist oral mucous membranes Head and Scalp: normocephalic Eyes PERRL, EOMs intact bilaterally and conjunctivae normal Neck supple, no JVD, thyroid normal and no carotid bruits General: trachea midline Resp normal respiratory effort, no retractions, no use of accessory muscles and clearto auscultation bilaterally Auscultation: Negative for rales, rhonchi or wheezes Cardio regular rate, regular rhythm, S1 normal heart sound, S2 normal heart sound, no murmurs, no rub and no gallops GI normal to inspection, nondistended, normoactive bowel sounds, soft to palpation,non-tender and non-distended Extremity no clubbing, cyanosis or edema Skin no rashes or lesions noted General Skin Exam: no breakdown Neuro CN's II-XII intact bilaterally, no focal motor deficits and no sensory deficits noted Neuro Narrative: Patient is alert, he is confused, he does not appear agitated Sensorium / Orientation: awake, alert and oriented to person Speech: speech normal Psych Psych Narrative: Patient exhibits cognitive impairment, he is alert and does not carry on a conversation but says a few words which do not make sense. Assessment & Plan Assessment/Plan (1) Intertrochanteric fracture of left femur: (2) Closed fracture of left hip: PLAN: Plan 1. 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 Patient's white blood cell count is slightly high #4 hyperkalemia-resolved at this time #5 chronic kidney disease stage IV-patient's IV fluids will be continued, I havedecided to increasethe IV rate to 100 cc/h, patient is on D5 half-normal saline #6 khqtufak-pyhhilvy-sdzvnjxbcoi care, management, recovery, and prognosis #7 slightly low platelet count-no treatment necessary #8 acute anemia-secondary to acute blood loss from left hip fracture-hemoglobin was 8.6 today and appears stable #9 cardiomyopathy by history-patient's echocardiogram showed an ejection fraction of 55% #10 subacute occipital infarction-patient is on a baby aspirin a day Total clinical time spent by myself addressing the patient's medical issues, reviewing all of his data, and collaborating with the patient's care team: 35 minutes Charges/Coding Visit Charges Inpatient E&M: 72017 Subs Hosp L2 NIHSS NIHSS Nursing Documentation NIHSS Nursing Documentation: NIHSS: Ischemic Stroke/TIA Start: 04/26/25 10:12 Freq: Q4H Status: Complete Protocol: Activity Type Activity Date Activity User E-sign Co-sign Detail Recorded Client Recorded Date Recorded By Document 04/29/25 12:00 [id number] 04/29/25 12:36 04/29/25 12:00 NIH Stroke Scale [NIHSS] A score of 0 is "normal" or asymptomatic . Total possible score is 42. Inpatient: RN or Physician to activate a stroke alert for onset of new stroke symptoms or with NIHSS increase >/= 3 points. Following change in neurological status, NIHSS will be performed per physician order or more frequently PRN. -1a. Level of Consciousness 0 - Alert; keenly responsive -1b. LOC Questions 2 - Answers NEITHER question correctly -1c. LOC Commands 0 - Performs BOTH tasks correctly -2. Best Gaze 0 - Normal -3. Visual 0 - No visual loss -4. Facial Palsy 0 - Normal symmetrical movements -5a. Left Arm 2 - Some effort against gravity; -5b. Right Arm 1 - Drift; arm drifts downward but doesn?t hit the bed -6a. Left Leg UN - Amputation or joint fusion, explain : -'UN' explanation Recent hip fx -6b. Right Leg 2 - Some effort against gravity; -7. Limb Ataxia UN - Amputation or joint fusion, explain -'UN' explanation LFT HIP FX, PT NOT COOPERATING BUE ASESSMENT -8. Sensory 0 - Normal; no sensory loss -9. Best Language 2 - Severe aphasia; -10. Dysarthria 1 = Mild-to- moderate dysarthria; -11. Extinction and Inattention 0 - No abnormality -Total 10 Query Text:A score of 0 is "normal" or asymptomatic. Total possible score is 42 . ED: Notify Physician for NIHSS increase by > / = 3 points. Inpatient: RN or Physician to activate a stroke alert for NIHSS increase of > / = 3 points. Coma Scale [Assess] -Eye Opening Spontaneous -Motor Obeys Commands -Verbal Confused [Total] -Coma Scale Total 14 05/01/25 404 Cosigner Signature (if applicable): CC: ~ Signed [facility]06-13-2025 Progress note Author Vern Rao [facility] Note Date/Time April 30, 2025 6:59 pm [facility] Medical Records Department [address] [place] [address] Progress Note - Hospitalist 04/29/251926 MR#: [id number] Acct: [id number] Name: MICHAEL MULLINS Rep #:[id number] : 1940 85 From: Vern Rao DO PCP: Dr. Baron Espinoza MD Status:ADM I N Location: [place] [address] Reason for Visit Reason for Visit: Diagnoses Fracture of unspecified part of neck of left femur, initial encounter for closedfracture (04/23/25) Displaced intertrochanteric fracture of left femur, initial encounter for closedfracture (04/23/25) Unspecified fall, initial encounter (04/23/25) Subjective Subjective Patient was seen and examined today, I talked with his who was in the room at the time my examination. Patient is talking more today but appears to be agitated at times grabbing at his left knee. Patient complained of chest pain earlier this morning, an EKG was obtained which showed a normal sinus rhythm with no changes from his previous EKG. Patient's sodium was high today at 152 and his chloride was high at 126. I have elected to change him to D5 half-normal saline. Patient's decided that she wanted to try to have him go to [facility], a request to [facility] was submitted today. Objective Data Objective Data Vital Signs: Vital Signs Temp Pulse Resp BP Pulse Ox O2 Del Method O2 Flow Rate 98.0 F 86 20 H 138/62 H 94 Nasal Cannula 2 04/29/25 16:32 04/29/25 16:32 04/29/25 16:32 04/29/25 16:32 04/29/25 16:32 04/29/25 16:32 04/29/25 16:32 Oxygen Flow Rate (L/min) 2 Oxygen Delivery Method Nasal Cannula Weight: 73.2 kg Body Mass Index (BMI) 25.3 Intake & Output: Intake and Output for Last 24 Hours 04/27/25 04/28/25 04/29/25 23:59 23:59 23:59 Intake Total 1120 / 1120 1987.5 / 1986.5 Output Total 5 / 2174 1200 / 1200 Balance -175.00 / -175.00 -880 / -880 787.5 / 787.5 Lab / Micro Data 04/28/25 06:39 04/30/25 04:32 Labs: Laboratory Results - last 24 hr 04/28/25 23:15: POC Glucose 99 04/29/25 05:16: Sodium 152 H, Potassium 4.2, Chloride 126 H, Carbon Dioxide 15.0L, Anion Gap 11, BUN 56 H, Creatinine 1.77 H, Estim Creat Clear Calc 28.54 L, Est GFR (MDRD) Non-Af 38 L, BUN/Creatinine Ratio 31.5 H, Glucose 115 H, Calcium 8.4, Magnesium 2.3 H 04/29/25 06:26: POC Glucose 111 H 04/29/25 11:29: POC Glucose 122 H 04/29/25 16:29: POC Glucose 120 H Physical Exam Narrative alert, no apparent distress, average body habitus and healthy appearing General Appearance: cooperative, well kempt and well developed Orientation / Consciousness: awake and oriented to person HEENT normocephalic, head/scalp atraumatic and moist oral mucous membranes Head and Scalp: normocephalic Eyes PERRL, EOMs intact bilaterally and conjunctivae normal Neck supple, no JVD, thyroid normal and no carotid bruits General: trachea midline Resp normal respiratory effort, no retractions, no use of accessory muscles and clearto auscultation bilaterally Auscultation: Negative for rales, rhonchi or wheezes Cardio regular rate, regular rhythm, S1 normal heart sound, S2 normal heart sound, no murmurs, no rub and no gallops GI normal to inspection, nondistended, normoactive bowel sounds, soft to palpation,non-tender and non-distended Extremity no clubbing, cyanosis or edema Skin no rashes or lesions noted General Skin Exam: no breakdown Neuro CN's II-XII intact bilaterally, no focal motor deficits and no sensory deficits noted Neuro Narrative: Patient is alert, he is confused, he does not appear agitated Sensorium / Orientation: awake, alert and oriented to person Speech: speech normal Psych Psych Narrative: Patient exhibits cognitive impairment, he is alert and does not carry on a conversation but says a few words which do not make sense. Assessment & Plan Assessment/Plan (1) Intertrochanteric fracture of left femur: (2) Closed fracture of left hip: PLAN: Plan 1. 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 Patient's white blood cell count is slightly high #4 hyperkalemia-resolved at this time #5 chronic kidney disease stage IV-patient's IV fluids will be continued at 75/h-I have switched to D5 half-normal due to increased sodium #6 ubtjssfc-pyeyyavd-tgvhljkpjsx care, management, recovery, and prognosis #7 slightly low platelet count-no treatment necessary #8 acute anemia-secondary to acute blood loss from left hip fracture-hemoglobin was 8.6 today and appears stable #9 cardiomyopathy by history-patient's echocardiogram showed an ejection fraction of 55% #10 subacute occipital infarction-patient is on a baby aspirin a day Total clinical time spent by myself addressing the patient's medical issues, reviewing all of his data, and collaborating with the patient's care team: 35 minutes Charges/Coding Visit Charges Inpatient E&M: 94540 Subs Hosp L2 NIHSS NIHSS Nursing Documentation NIHSS Nursing Documentation: NIHSS: Ischemic Stroke/TIA Start: 04/26/25 10:12 Freq: Q4H Status: Complete Protocol: Activity Type Activity Date Activity User E-sign Co-sign Detail Recorded Client Recorded Date Recorded By Document 04/29/25 12:00 [id number] 04/29/25 12:36 04/29/25 12:00 NIH Stroke Scale [NIHSS] A score of 0 is "normal" or asymptomatic . Total possible score is 42. Inpatient: RN or Physician to activate a stroke alert for onset of new stroke symptoms or with NIHSS increase >/= 3 points. Following change in neurological status, NIHSS will be performed per physician order or more frequently PRN. -1a. Level of Consciousness 0 - Alert; keenly responsive -1b. LOC Questions 2 - Answers NEITHER question correctly -1c. LOC Commands 0 - Performs BOTH tasks correctly -2. Best Gaze 0 - Normal -3. Visual 0 - No visual loss -4. Facial Palsy 0 - Normal symmetrical movements -5a. Left Arm 2 - Some effort against gravity; -5b. Right Arm 1 - Drift; arm drifts downward but doesn?t hit the bed -6a. Left Leg UN - Amputation or joint fusion, explain : -'UN' explanation Recent hip fx -6b. Right Leg 2 - Some effort against gravity; -7. Limb Ataxia UN - Amputation or joint fusion, explain -'UN' explanation LFT HIP FX, PT NOT COOPERATING BUE ASESSMENT -8. Sensory 0 - Normal; no sensory loss -9. Best Language 2 - Severe aphasia; -10. Dysarthria 1 = Mild-to- moderate dysarthria; -11. Extinction and Inattention 0 - No abnormality -Total 10 Query Text:A score of 0 is "normal" or asymptomatic. Total possible score is 42 . ED: Notify Physician for NIHSS increase by > / = 3 points. Inpatient: RN or Physician to activate a stroke alert for NIHSS increase of > / = 3 points. Coma Scale [Assess] -Eye Opening Spontaneous -Motor Obeys Commands -Verbal Confused [Total] -Coma Scale Total 14 04/30/25 1859 <Electronically signed by Vern Rao DO> Cosigner Signature (if applicable): CC: ~ Signed [facility] Work Phone: [phone]) [phone] Progress note [facility] Medical Records Department [address] [place] [address] Progress Note - Hospitalist 04/29/251926 MR#: [id number] Acct: [id number] Name: MICHAEL MULLINS Rep #:[id number] : 1940 85 From: Vern Rao DO PCP: Dr. Baron Espinoza MD Status:ADM I N Location: [place] [address] Reason for Visit Reason for Visit: Diagnoses Fracture of unspecified part of neck of left femur, initial encounter for closedfracture (04/23/25) Displaced intertrochanteric fracture of left femur, initial encounter for closedfracture (04/23/25) Unspecified fall, initial encounter (04/23/25) Subjective Subjective Patient was seen and examined today, I talked with his who was in the room at the time my examination. Patient is talking more today but appears to be agitated at times grabbing at his left knee. Patient complained of chest pain earlier this morning, an EKG was obtained which showed a normal sinus rhythm with no changes from his previous EKG. Patient's sodium was high today at 152 and his chloride was high at 126. I have elected to change him to D5 half-normal saline. Patient's decided that she wanted to try to have him go to [facility], a request to [facility] was submitted today. Objective Data Objective Data Vital Signs: Vital Signs Temp Pulse Resp BP Pulse Ox O2 Del Method O2 Flow Rate 98.0 F 86 20 H 138/62 H 94 Nasal Cannula 2 04/29/25 16:32 04/29/25 16:32 04/29/25 16:32 04/29/25 16:32 04/29/25 16:32 04/29/25 16:32 04/29/25 16:32 Oxygen Flow Rate (L/min) 2 Oxygen Delivery Method Nasal Cannula Weight: 73.2 kg Body Mass Index (BMI) 25.3 Intake & Output: Intake and Output for Last 24 Hours 04/27/25 04/28/25 04/29/25 23:59 23:59 23:59 Intake Total 1999. / 1999. 1120 / 1120 1987.5 / 1987.5 Output Total 2175 / 2175 1999 1200 / 1200 Balance -175.00 / -175.00 -880 / -880 787.5 / 787.5 Lab / Micro Data 04/28/25 06:39 04/30/25 04:32 Labs: Laboratory Results - last 24 hr 04/28/25 23:15: POC Glucose 99 04/29/25 05:16: Sodium 152 H, Potassium 4.2, Chloride 126 H, Carbon Dioxide 15.0L, Anion Gap 11, BUN 56 H, Creatinine 1.77 H, Estim Creat Clear Calc 28.54 L, Est GFR (MDRD) Non-Af 38 L, BUN/Creatinine Ratio 31.5 H, Glucose 115 H, Calcium 8.4, Magnesium 2.3 H 04/29/25 06:26: POC Glucose 111 H 04/29/25 11:29: POC Glucose 122 H 04/29/25 16:29: POC Glucose 120 H Physical Exam Narrative alert, no apparent distress, average body habitus and healthy appearing General Appearance: cooperative, well kempt and well developed Orientation / Consciousness: awake and oriented to person HEENT normocephalic, head/scalp atraumatic and moist oral mucous membranes Head and Scalp: normocephalic Eyes PERRL, EOMs intact bilaterally and conjunctivae normal Neck supple, no JVD, thyroid normal and no carotid bruits General: trachea midline Resp normal respiratory effort, no retractions, no use of accessory muscles and clearto auscultation bilaterally Auscultation: Negative for rales, rhonchi or wheezes Cardio regular rate, regular rhythm, S1 normal heart sound, S2 normal heart sound, no murmurs, no rub and no gallops GI normal to inspection, nondistended, normoactive bowel sounds, soft to palpation,non-tender and non-distended Extremity no clubbing, cyanosis or edema Skin no rashes or lesions noted General Skin Exam: no breakdown Neuro CN's II-XII intact bilaterally, no focal motor deficits and no sensory deficits noted Neuro Narrative: Patient is alert, he is confused, he does not appear agitated Sensorium / Orientation: awake, alert and oriented to person Speech: speech normal Psych Psych Narrative: Patient exhibits cognitive impairment, he is alert and does not carry on a conversation but says a few words which do not make sense. Assessment & Plan Assessment/Plan (1) Intertrochanteric fracture of left femur: (2) Closed fracture of left hip: PLAN: Plan 1. 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 Patient's white blood cell count is slightly high #4 hyperkalemia-resolved at this time #5 chronic kidney disease stage IV-patient's IV fluids will be continued at 75/h-I have switched toD5 half-normal due to increased sodium #6 fpxdyvla-dteylbxa-lzwnjjbdklc care, management, recovery, and prognosis #7 slightly low platelet count-no treatment necessary #8 acute anemia-secondary to acute blood loss from left hip fracture-hemoglobin was 8.6 today and appears stable #9 cardiomyopathy by history-patient's echocardiogram showed an ejection fraction of 55% #10 subacute occipital infarction-patient is on a baby aspirin a day Total clinical time spent by myself addressing the patient's medical issues, reviewing all of his data, and collaborating with the patient's care team: 35 minutes Charges/Coding Visit Charges Inpatient E&M: 67064 Subs Hosp L2 NIHSS NIHSS Nursing Documentation NIHSS Nursing Documentation: NIHSS: Ischemic Stroke/TIA Start: 04/26/25 10:12 Freq: Q4H Status: Complete Protocol: Activity Type Activity Date Activity User E-sign Co-sign Detail Recorded Client Recorded Date Recorded By Document 04/29/25 12:00 SS [id number] 04/29/25 12:36 SS 04/29/25 12:00 NIH Stroke Scale [NIHSS] A score of 0 is "normal" or asymptomatic . Total possible score is 42. Inpatient: RN or Physician to activate a stroke alert for onset of new stroke symptoms or with NIHSS increase >/= 3 points. Following change in neurological status, NIHSS will be performed per physician order or more frequently PRN. -1a. Level of Consciousness 0 - Alert; keenly responsive -1b. LOC Questions 2 - Answers NEITHER question correctly -1c. LOC Commands 0 - Performs BOTH tasks correctly -2. Best Gaze 0 - Normal -3. Visual 0 - No visual loss -4. Facial Palsy 0 - Normal symmetrical movements -5a. Left Arm 2 - Some effort against gravity; -5b. Right Arm 1 - Drift; arm drifts downward but doesn?t hit the bed -6a. Left Leg UN - Amputation or joint fusion, explain : -'UN' explanation Recent hip fx -6b. Right Leg 2 - Some effort against gravity; -7. Limb Ataxia UN - Amputation or joint fusion, explain -'UN' explanation LFT HIP FX, PT NOT COOPERATING BUE ASESSMENT -8. Sensory 0 - Normal; no sensory loss -9. Best Language 2 - Severe aphasia; -10. Dysarthria 1 = Mild-to- moderate dysarthria; -11. Extinction and Inattention 0 - No abnormality -Total 10 Query Text:A score of 0 is "normal" or asymptomatic. Total possible score is 42 . ED: Notify Physician for NIHSS increase by > / = 3 points. Inpatient: RN or Physician to activate a stroke alert for NIHSS increase of > / = 3 points. Coma Scale [Assess] -Eye Opening Spontaneous -Motor Obeys Commands -Verbal Confused [Total] -Coma Scale Total 14 04/30/25 2319 Cosigner Signature (if applicable): CC: ~ Signed [facility]06-11-2025 Progress note Author Vern Rao [facility] Note Date/Time April 28, 2025 7:54 pm [facility] Medical Records Department [address] [facility] [place] [address] Progress Note - Hospitalist 04/28/251909 MR#: [id number] Acct: [id number] Name: MICHAEL MULLINS Rep #:[id number] : 1940 85 From: Vern Roa DO PCP: Dr. Baron Espinoza MD Status:ADM I N Location: [place] [address] Reason for Visit Reason for Visit: Diagnoses Fracture of unspecified part of neck of left femur, initial encounter for closedfracture (04/23/25) Displaced intertrochanteric fracture of left femur, initial encounter for closedfracture (04/23/25) Unspecified fall, initial encounter (04/23/25) Subjective Subjective Patient was seen and examined today, I talked briefly with social services manager todayand they stated that they have patient's ability to do PT and OT is severely compromised, it is their opinion they feel that his insurance may not pay for a fpc stay for rehab services. I relayed this to the , I asked her to think about whether she would want the patient seen by hospice, I also stated that she should be prepared if his insurance does not approve a residential stay-this means she will have to pay for the residential [id number]. Objective Data Objective Data Vital Signs: Vital Signs Temp Pulse Resp BP Pulse Ox O2 Del Method O2 Flow Rate 97.6 F L 74 16 102/52 L 95 Nasal Cannula 4 04/28/25 16:00 04/28/25 16:00 04/28/25 16:00 04/28/25 17:38 04/28/25 16:00 04/28/25 16:00 04/28/25 12:30 Oxygen Flow Rate (L/min) 4 Oxygen Delivery Method Nasal Cannula Weight: 72.5 kg Body Mass Index (BMI) 25.0 Intake & Output: Intake and Output for Last 24 Hours 04/26/25 04/27/25 04/28/25 23:59 23:59 23:59 Intake Total 1448 / 1448 1999.00 / 1999. 1120 / 1120 Output Total 1225 / 1575 2175 / 2175 1500 / 1500 Balance 223 / -127 -175.00 / -175.00 -380 / -380 Lab / Micro Data 04/28/25 06:39 04/28/25 06:39 Labs: Laboratory Results - last 24 hr 04/28/25 01:10: POC Glucose 87 04/28/25 06:39: WBC 11.5 H, RBC 2.70 L, Hgb 8.6 L, Hct 25.4 L, MCV 94.1 H D, MCH31.9, MCHC 33.9, RDW Std Deviation 55.3 H, RDW Coeff of Eduarda 16.1 H, Plt Count 133 L, MPV 11.0, Immature Gran % (Auto) 0.400, Neut % (Auto) 82.5 H, Lymph % (Auto) 9.6 L, Parker % (Auto) 7.1, Eos % (Auto) 0.3, Baso % (Auto) 0.1, Absolute Neuts (auto) 9.5 H, Absolute Lymphs (auto) 1.10, Nucleated RBC % 0.9, Sodium 147H, Potassium 5.0, Chloride 122 H, Carbon Dioxide 13.3 L, Anion Gap 12, BUN 52 H,Creatinine 1.73 H, Estim Creat Clear Calc 29.20 L, Est GFR (MDRD) Non-Af 39 L, BUN/Creatinine Ratio 30.0 H, Glucose 101 H, Calcium 8.3 04/28/25 06:58: POC Glucose 94 04/28/25 12:29: POC Glucose 112 H 04/28/25 16:37: POC Glucose 119 H Physical Exam Narrative alert, no apparent distress, average body habitus and healthy appearing General Appearance: cooperative, well kempt and well developed Orientation / Consciousness: awake and oriented to person HEENT normocephalic, head/scalp atraumatic and moist oral mucous membranes Head and Scalp: normocephalic Eyes PERRL, EOMs intact bilaterally and conjunctivae normal Neck supple, no JVD, thyroid normal and no carotid bruits General: trachea midline Resp normal respiratory effort, no retractions, no use of accessory muscles and clearto auscultation bilaterally Auscultation: Negative for rales, rhonchi or wheezes Cardio regular rate, regular rhythm, S1 normal heart sound, S2 normal heart sound, no murmurs, no rub and no gallops GI normal to inspection, nondistended, normoactive bowel sounds, soft to palpation,non-tender and non-distended Extremity no clubbing, cyanosis or edema Skin no rashes or lesions noted General Skin Exam: no breakdown Neuro CN's II-XII intact bilaterally, no focal motor deficits and no sensory deficits noted Neuro Narrative: Patient is alert, he is confused, he does not appear agitated Sensorium / Orientation: awake, alert and oriented to person Speech: speech normal Psych Psych Narrative: Patient exhibits cognitive impairment, he is alert and does not carry on a conversation but says a few words which do not make sense. Assessment & Plan Assessment/Plan (1) Intertrochanteric fracture of left femur: (2) Closed fracture of left hip: PLAN: Plan 1. 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 Patient's white blood cell count is slightly high #4 hyperkalemia-resolved at this time #5 chronic kidney disease stage IV-patient's IV fluids will be continued at 75/h #6 hzzdfmbr-busoyaar-psmdywznunw care, management, recovery, and prognosis #7 slightly low platelet count-no treatment necessary #8 acute anemia-secondary to acute blood loss from left hip fracture-hemoglobin was 8.6 today and appears stable #9 cardiomyopathy by history-patient's echocardiogram showed an ejection fraction of 55% #10 subacute occipital infarction-patient is on a baby aspirin a day Total clinical time spent by myself addressing the patient's medical issues, reviewing all of his data, and collaborating with the patient's care team: 35 minutes Charges/Coding Visit Charges Inpatient E&M: 50114 Subs Hosp L2 NIHSS NIHSS Nursing Documentation NIHSS Nursing Documentation: NIHSS: Ischemic Stroke/TIA Start: 04/26/25 10:12 Freq: Q4H Status: Active Protocol: Activity Type Activity Date Activity User E-sign Co-sign Detail Recorded Client Recorded Date Recorded By Document 04/28/25 16:00 ML [id number] 04/28/25 18:57 ML 04/28/25 16:00 NIH Stroke Scale [NIHSS] A score of 0 is "normal" or asymptomatic . Total possible score is 42. Inpatient: RN or Physician to activate a stroke alert for onset of new stroke symptoms or with NIHSS increase >/= 3 points. Following change in neurological status, NIHSS will be performed per physician order or more frequently PRN. -1a. Level of Consciousness 0 - Alert; keenly responsive -1b. LOC Questions 2 - Answers NEITHER question correctly -1c. LOC Commands 1 - Performs ONE task correctly -2. Best Gaze 0 - Normal -3. Visual 0 - No visual loss -4. Facial Palsy 0 - Normal symmetrical movements -5a. Left Arm 2 - Some effort against gravity; -5b. Right Arm 2 - Some effort against gravity; -6a. Left Leg UN - Amputation or joint fusion, explain : -'UN' explanation recent fracture -6b. Right Leg 3 - No effort against gravity ; leg falls to bed immediately -7. Limb Ataxia 0 - Absent -8. Sensory 0 - Normal; no sensory loss -9. Best Language 2 - Severe aphasia; -10. Dysarthria 2 - Severe dysarthria; -11. Extinction and Inattention 0 - No abnormality -Total 14 Query Text:A score of 0 is "normal" or asymptomatic. Total possible score is 42 . ED: Notify Physician for NIHSS increase by > / = 3 points. Inpatient: RN or Physician to activate a stroke alert for NIHSS increase of > / = 3 points. Coma Scale [Assess] -Eye Opening To Voice -Motor Localizes to Pain -Verbal Confused [Total] -Coma Scale Total 12 04/28/251953 <Electronically signed by Vern Rao DO> Cosigner Signature (if applicable): CC: ~ Signed [facility] Work Phone: 1([phone]) 347-211306-11-2025 Progress note [facility] Medical Records Department [address] [place] [address] Progress Note - Hospitalist 04/28/251909 MR#: [id number] Acct: [id number] Name: MICHAEL MULLINS Rep #:[id number] : 1940 85 From: Vern Rao DO PCP: Dr. Baron Espinoza MD Status:ADM I N Location: [place] [address] Reason for Visit Reason for Visit: Diagnoses Fracture of unspecified part of neck of left femur, initial encounter for closedfracture (04/23/25) Displaced intertrochanteric fracture of left femur, initial encounter for closedfracture (04/23/25) Unspecified fall, initial encounter (04/23/25) Subjective Subjective Patient was seen and examined today, I talked briefly with social services manager todayand they stated that they have patient's ability to do PT and OT is severely compromised, it is their opinion they feelthat his insurance may not pay for a fpc stay for rehab services. I relayed this to thewife, I asked her to think about whether she would want the patient seen by hospice, I also stated that she should be prepared if his insurance does not approve a residential stay-this means she will have to pay for the residential [id number]. Objective Data Objective Data Vital Signs: Vital Signs Temp Pulse Resp BP Pulse Ox O2 Del Method O2 Flow Rate 97.6 F L 74 16 102/52 L 95 Nasal Cannula 4 04/28/25 16:00 04/28/25 16:00 04/28/25 16:00 04/28/25 17:38 04/28/25 16:00 04/28/25 16:00 04/28/25 12:30 Oxygen Flow Rate (L/min) 4 Oxygen Delivery Method Nasal Cannula Weight: 72.5 kg Body Mass Index (BMI) 25.0 Intake & Output: Intake and Output for Last 24 Hours 04/26/25 04/27/25 04/28/25 23:59 23:59 23:59 Intake Total 1448 / 1448 2000.00 / 1999.00 1120 / 1120 Output Total 1225 / 1575 2175 / 2175 1500 / 1500 Balance 223 / -127 -175.00 / -175.00 -380 / -380 Lab / Micro Data 04/28/25 06:39 04/28/25 06:39 Labs: Laboratory Results - last 24 hr 04/28/25 01:10: POC Glucose 87 04/28/25 06:39: WBC 11.5 H, RBC 2.70 L, Hgb 8.6 L, Hct 25.4 L, MCV 94.1 H D, MCH31.9, MCHC 33.9, RDW Std Deviation 55.3 H, RDW Coeff of Eduarda 16.1 H, Plt Count 133 L, MPV 11.0, Immature Gran % (Auto) 0.400, Neut % (Auto) 82.5 H, Lymph % (Auto) 9.6 L, Parker % (Auto) 7.1, Eos % (Auto) 0.3, Baso % (Auto)0.1, Absolute Neuts (auto) 9.5 H, Absolute Lymphs (auto) 1.10, Nucleated RBC % 0.9, Sodium 147H, Potassium 5.0, Chloride 122 H, Carbon Dioxide 13.3 L, Anion Gap 12, BUN 52 H,Creatinine 1.73 H, Estim Creat Clear Calc 29.20 L, Est GFR (MDRD) Non-Af 39 L, BUN/Creatinine Ratio 30.0 H, Glucose 101 H, Calcium 8.3 04/28/25 06:58: POC Glucose 94 04/28/25 12:29: POC Glucose 112 H 04/28/25 16:37: POC Glucose 119 H Physical Exam Narrative alert, no apparent distress, average body habitus and healthy appearing General Appearance: cooperative, well kempt and well developed Orientation / Consciousness: awake and oriented to person HEENT normocephalic, head/scalp atraumatic and moist oral mucous membranes Head and Scalp: normocephalic Eyes PERRL, EOMs intact bilaterally and conjunctivae normal Neck supple, no JVD, thyroid normal and no carotid bruits General: trachea midline Resp normal respiratory effort, no retractions, no use of accessory muscles and clearto auscultation bilaterally Auscultation: Negative for rales, rhonchi or wheezes Cardio regular rate, regular rhythm, S1 normal heart sound, S2 normal heart sound, no murmurs, no rub and no gallops GI normal to inspection, nondistended, normoactive bowel sounds, soft to palpation,non-tender and non-distended Extremity no clubbing, cyanosis or edema Skin no rashes or lesions noted General Skin Exam: no breakdown Neuro CN's II-XII intact bilaterally, no focal motor deficits and no sensory deficits noted Neuro Narrative: Patient is alert, he is confused, he does not appear agitated Sensorium / Orientation: awake, alert and oriented to person Speech: speech normal Psych Psych Narrative: Patient exhibits cognitive impairment, he is alert and does not carry on a conversation but says a few words which do not make sense. Assessment & Plan Assessment/Plan (1) Intertrochanteric fracture of left femur: (2) Closed fracture of left hip: PLAN: Plan 1. 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 Patient's white blood cell count is slightly high #4 hyperkalemia-resolved at this time #5 chronic kidney disease stage IV-patient's IV fluids will be continued at 75/h #6 jswsuszm-brifnjla-qmugevghtyx care, management, recovery, and prognosis #7 slightly low platelet count-no treatment necessary #8 acute anemia-secondary to acute blood loss from left hip fracture-hemoglobin was 8.6 today and appears stable #9 cardiomyopathy by history-patient's echocardiogram showed an ejection fraction of 55% #10 subacute occipital infarction-patient is on a baby aspirin a day Total clinical time spent by myself addressing the patient's medical issues, reviewing all of his data, and collaborating with the patient's care team: 35 minutes Charges/Coding Visit Charges Inpatient E&M: 42415 Subs Hosp L2 NIHSS NIHSS Nursing Documentation NIHSS Nursing Documentation: NIHSS: Ischemic Stroke/TIA Start: 04/26/25 10:12 Freq: Q4H Status: Active Protocol: Activity Type Activity Date Activity User E-sign Co-sign Detail Recorded Client Recorded Date Recorded By Document 04/28/25 16:00 ML [id number] 04/28/25 18:57 ML 04/28/25 16:00 NIH Stroke Scale [NIHSS] A score of 0 is "normal" or asymptomatic . Total possible score is 42. Inpatient: RN or Physician to activate a stroke alert for onset of new stroke symptoms or with NIHSS increase >/= 3 points. Following change in neurological status, NIHSS will be performed per physician order or more frequently PRN. -1a. Level of Consciousness 0 - Alert; keenly responsive -1b. LOC Questions 2 - Answers NEITHER question correctly -1c. LOC Commands 1 - Performs ONE task correctly -2. Best Gaze 0 - Normal -3. Visual 0 - No visual loss -4. Facial Palsy 0 - Normal symmetrical movements -5a. Left Arm 2 - Some effort against gravity; -5b. Right Arm 2 - Some effort against gravity; -6a. Left Leg UN - Amputation or joint fusion, explain : -'UN' explanation recent fracture -6b. Right Leg 3 - No effort against gravity ; leg falls to bed immediately -7. Limb Ataxia 0 - Absent -8. Sensory 0 - Normal; no sensory loss -9. Best Language 2 - Severe aphasia; -10. Dysarthria 2 - Severe dysarthria; -11. Extinction and Inattention 0 - No abnormality -Total 14 Query Text:A score of 0 is "normal" or asymptomatic. Total possible score is 42 . ED: Notify Physician for NIHSS increase by > / = 3 points. Inpatient: RN or Physician to activate a stroke alert for NIHSS increase of > / = 3 points. Coma Scale [Assess] -Eye Opening To Voice -Motor Localizes to Pain -Verbal Confused [Total] -Coma Scale Total 04/28/251953 Cosigner Signature (if applicable): CC: ~ Signed [facility]06-11-2025 Procedure note [facility] Speech Pathology [address] [place] [address] Modified Barium Swallow Study MR#: [id number] Acct: [id number] Name: MICHAEL MULLINS Rep #:[id number] : 1940 85 From: Beulah Hunter Modified Barium Swallow Patient Information Study Date: 04/28/25 Study Time: 09:00 Direct Billable Minutes: 120 Total Minutes procedure & reportin Diagnosis: subacute occipital infarction, Alzheimer's disease Referring Physician: Vern Rao Medical History: The patient is an 85-year-old male with a complex medical history, including Alzheimer?s disease with mild cognitive impairment and behavioral changes, HairyCell Leukemia (diagnosed in 1982), heart failure with reduced ejection fraction (EF 35%), stage III chronic kidney disease (subtype unspecified), hypertension, hyperlipidemia, gout, type II diabetes mellitus (per chart), benign prostatic hyperplasia with obstructive symptoms, chronic/iron deficiency anemia, anxiety, and depression. He presented to the [facility] Emergency Department on 04/23/25 after a mechanical fall while walking with his . The patient, who ambulated hunched over with a cane, tripped over a curb and fell into a vehicle, then to the ground, impacting his left hip and leg. Imaging confirmed a left intertrochanteric hip fracture, and he underwent surgical repair with insertion of a cephalomedullary nail (post-op day #4). On 04/26/25, a stroke alert was initiated due to new right-sided weakness and garbled speech. MRI revealed a left occipital-parietal infarct along with two smaller infarcts of unclear chronicity. Additionally, the patient is showing signs of aspiration with oral intake, prompting evaluation with a Modified Barium Swallow Study (MBSS). Current Diet Ordered: NPO Mental Status: Impaired Respiratory Status: Oxygenating on 4L/M nasal cannula Penetration-Aspiration Scale Penetration-Aspiration Scale: OBJECTIVE ASSESSMENT OF SWALLOW FUNCTION (QUANTITATIVE ? PER TRIAL): PENETRATION / ASPIRATION SCALE (BENTLEY): 1 = does not enter airway 2 = enters airway/above vocal folds/ejected 3 = enters airway/above vocal folds/not ejected 4 = enters airway/contacts vocal folds/ejected 5 = enters airway/contacts vocal folds/not ejected 6 = enters airway/below vocal folds/ejected 7 = enters airway/below vocal folds/not ejected despite effort 8 = enters airway/below vocal folds/no effort VIDEOFLOROSCOPIC SCALE SCORE (BENTLEY): Grade I = aspiration of material that has penetrated into the laryngeal vestibule, intact cough reflex Grade II = aspiration < 10 % of the bolus, intact cough reflex Grade III = aspiration of < 10 % of the bolus, reduced cough reflex or aspiration of > 10 % of the bolus, intact cough reflex Grade IV = aspiration of > 10 % of the bolus, reduced cough reflex Penetration-Aspiration Scale Score Thin Liquid via teaspoon: Result: 1= does not enter airway Thin Liquid via small single sip: cup: Result: 5= enters airways/contacts vocal folds/not ejected Thin Liquid via single sip: straw: Result: 5= enters airways/contacts vocal folds/not ejected Comment: Due to body habitus, aspiration cannot be confidently ruled out. Thin Liquid via single sip: straw Trial 2: Result: 5= enters airways/contacts vocal folds/not ejected [place] Thick Liquid via small single sip: cup: Result: 2= enter airway/above vocal folds/ejected [place] Thick Liquid via small single sip: cup Trial 2: Result: 1= does not enter airway Pudding: Result: 1= does not enter airway Pudding Trial 2: Result: 1= does not enter airway Cookie: Result: 1= does not enter airway [place] Thick Liquid via small single sip: cup Trial 3: Result: 1= does not enter airway [place] Thick Liquid via sequential sips:straw: Result: 7= enters airways/below vocal folds/not ejected despite effort [place] Thick Liquid via small single sip: cup Trial 4: Result: 2= enter airway/above vocal folds/ejected Oral Phase Labial Seal: Escape beyond interlabial space; no extension beyond sean border Tongue Control During Bolus Hold: Posterior escape of greater than half of bolus Bolus Preparation/Mastication: Disorganized chewing/mashing with solid pieces ofbolus unchewed Bolus Transport/Lingual Motion: Repetitive/disorganized tongue motion Oral Residue: Residue collection on oral structures Pharyngeal Phase Initiation of Pharyngeal Swallow: Bolus head in pyriforms Soft Palate Elevation: Escape to nasopharynx Laryngeal Elevation: Partial superior movement thyroid cart/partial apprx aryt- epig petiole Anterior Hyoid Excursion: Partial anterior movement Epiglottic Movement: Complete inversion Laryngeal Vestibule Closure at Height of Swallow: Incomplete; narrow column of air/contrast in laryngeal vestibule Pharyngeal Stripping Wave: Present - diminished Pharyngoesophageal Segment Opening: Parital distension and partial duration; parital obstruction offlow Tongue Base Retraction: Wide column of contrast between tongue base & post. pharyngeal wall Pharyngeal Residue: Collection of residue within or on pharyngeal structures Diagnosis/Impression Diagnosis: OROPHARYNGEAL DYSPHAGIA R13.12 Impression: The patient presents with oropharyngeal dysphagia. Oral Phase: Significant oral phase deficits are noted, likely related to underlying Alzheimer?s disease and altered mental status. These include impaired labial seal, poor bolus control with premature spillage, and disorganized mastication. AP transit is slowed, with repetitive, uncoordinated lingual movementsobserved. Pharyngeal Phase: There is evidence of nasopharyngeal escape. Poor airway protection, attributed to delayed pharyngeal swallow initiation and inadequate bolus control. Bolus entry into the airway occurs prior to swallow onset. Laryngeal elevation and closure are incomplete, with reduced anterior hyoid excursion. Consistent laryngeal penetration to the level of the vocal cords and/or aspiration is observed with thin liquids. Notably, single sips of nectar-thick liquids result in improved airway protection. Additional findings include a wide tongue base and diminished pharyngeal stripping wave, contributing to post-swallow residue in the valleculae and pyriform sinuses. Double swallows are most effective in clearing this residue. Recommendations Diet: Puree Textures and Mildly Thick Liquids Compensatory Strategies: Small Bites, Small Sips, No Straws, Slow Rate, Feed only when alert, Multiple Swallows, Alternate bites/solids and sips/liquids, Sitting upright, Remain sitting upright for 30 minutes after PO intake and Assist with verbal cues to use recommended strategies Supervision: Total Feed and 1:1 Direct Supervision Recommend Repeat Modified Barium Swallow: Yes Need for Skilled Speech Therapy Services: Yes Education Completed: 1. Described result of evaluation., 2. Pt understands evaluation & agrees with goals and treatment plan. and 4. Family/caregivers understand evaluation & agree w/ goals & tx plan. Status Active ST Patient: Active Contact Information [facility] Speech Therapy:: Beulah Hunter M.A., CCC-BILINGUAL MANAGER Speech-Language Pathologist [facility] [phone]? ?FAX [phone]? [email or web address] [address] [place] [address]? ?[place] [address] 04/28/25 1214 > Date/Time Beulah Hunter Co-Signature Required for all Medicare patients Date/Time Co-Signature CC: ~ [place] [id number] Progress note Author Vern Luan [facility] Note Date/Time April 27, 2025 6:14 pm [facility] Medical Records Department [address] [place] [address] Progress Note - Hospitalist 04/27/25 180 MR#: [id number] Acct: [id number] Name: MICHAEL MULLINS Rep #:[id number] : 1940 85 From: Vern Rao DO PCP: Dr. Baron Espinoza MD Status:ADM I N Location: ICU CVICU20 2-1 Reason for Visit Reason for Visit: Diagnoses Fracture of unspecified part of neck of left femur, initial encounter for closedfracture (04/23/25) Displaced intertrochanteric fracture of left femur, initial encounter for closedfracture (04/23/25) Unspecified fall, initial encounter (04/23/25) Subjective Subjective Patient was seen and examined today, he had an MRI which again showed a left occipital parietal infarct, there was also 2 smaller infarcts-read out did not mention whether they were new or old. I talked at length to his who was inthe room at the time of my examination, patient's mental status is still somnolent, he does take ice cream orally and he does take his pills with applesauce. I feel he is stable for transfer to PCU for further care at this time. I do not think he is a candidate to go to the rehab unit due to the fact I do not think he can perform 3 hours of physical therapy. I asked the to think about whether she would want a feeding tube if it came down to that scenario, she will discuss this with her children. Objective Data Objective Data Vital Signs: Vital Signs Temp Pulse Resp BP Pulse Ox O2 Del Method O2 Flow Rate 97.9 F 92 19 H 137/82 H 92 Room Air 2 04/27/25 16:04/27/25 16:00 04/27/25 16:04/27/25 16:04/27/25 16:04/27/25 16:04/27/25 13:20 Oxygen Flow Rate (L/min) 2 Oxygen Delivery Method Room Air Weight: 73 kg Body Mass Index (BMI) 25.2 Intake & Output: Intake and Output for Last 24 Hours 04/25/25 04/26/25 04/27/25 23:59 23:59 23:59 Intake Total 3180 / 3180 1448 / 1448 1113.75 / 1113.75 Output Total 250 / 650 1225 / 1575 1350 / 1350 Balance 2930 / 2530 223 / -127 -236.25 / -236.25 Lab / Micro Data 04/26/25 05:53 04/25/25 05:03 Labs: Laboratory Results - last 24 hr 04/23/25 21:46: Crossmatch See Detail 04/26/25 22:56: POC Glucose 77 04/27/25 05:44: POC Glucose 78 04/27/25 13:19: POC Glucose 90 04/27/25 16:15: POC Glucose 99 Radiography Diagnostic Testing: Radiology Impression Brain MRI 04/27/25 09:00 IMPRESSION: 1. Moderately large left parieto-occipital infarction, without associated midline shift or significant mass effect. 2. Moderate generalized cerebral and cerebellar atrophy. 3. At least moderate bilateral cerebral and pontine white matter changes are seen, consistent with chronic ischemic changes of small-vessel disease. 4. Partial opacification of left mastoid air cells, of uncertain chronicity; recommend clinical and historical correlation. 5. Additional findings as noted. Reading Location: [address] Physical Exam Narrative alert, no apparent distress, average body habitus and healthy appearing General Appearance: cooperative, well kempt and well developed Orientation / Consciousness: awake and oriented to person HEENT normocephalic, head/scalp atraumatic and moist oral mucous membranes Head and Scalp: normocephalic Eyes PERRL, EOMs intact bilaterally and conjunctivae normal Neck supple, no JVD, thyroid normal and no carotid bruits General: trachea midline Resp normal respiratory effort, no retractions, no use of accessory muscles and clearto auscultation bilaterally Auscultation: Negative for rales, rhonchi or wheezes Cardio regular rate, regular rhythm, S1 normal heart sound, S2 normal heart sound, no murmurs, no rub and no gallops GI normal to inspection, nondistended, normoactive bowel sounds, soft to palpation,non-tender and non-distended Extremity no clubbing, cyanosis or edema Skin no rashes or lesions noted General Skin Exam: no breakdown Neuro CN's II-XII intact bilaterally, no focal motor deficits and no sensory deficits noted Neuro Narrative: Patient is alert, he is confused, he does not appear agitated Sensorium / Orientation: awake, alert and oriented to person Speech: speech normal Psych Psych Narrative: Patient exhibits cognitive impairment, he is alert and does not carry on a conversation but says a few words which do not make sense. Assessment & Plan Assessment/Plan (1) Intertrochanteric fracture of left femur: (2) Closed fracture of left hip: PLAN: Plan 1. 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 Patient's white blood cell count is slightly high #4 hyperkalemia-BMP will be repeated tomorrow #5 chronic kidney disease stage IV-patient's IV fluids will be continued at 75/h #6 oxegxthi-hjoduvna-stmjbfqhbao care, management, recovery, and prognosis #7 slightly low platelet count-CBC will be rechecked tomorrow #8 acute anemia-secondary to acute blood loss from left hip fracture- CBC will be rechecked tomorrow #9 cardiomyopathy by history-patient's echocardiogram showed an ejection fraction of 55% #10 subacute occipital infarction-patient will remain on rectal aspirin, I will place him on Lovenox for DVT prophylaxis since he is n.p.o. Total clinical time spent by myself addressing the patient's medical issues, reviewing all of his data, and collaborating with the patient's care team: 35 minutes Charges/Coding Visit Charges Inpatient E&M: 58672 Subs Hosp L2 NIHSS NIHSS Nursing Documentation NIHSS Nursing Documentation: NIHSS: Ischemic Stroke/TIA Start: 04/26/25 10:12 Freq: Q4H Status: Active Protocol: Activity Type Activity Date Activity User E-sign Co-sign Detail Recorded Client Recorded Date Recorded By Document 04/27/25 16:00 DS [id number] 04/27/25 16:32 DS 04/27/25 16:00 NIH Stroke Scale [NIHSS] A score of 0 is "normal" or asymptomatic . Total possible score is 42. Inpatient: RN or Physician to activate a stroke alert for onset of new stroke symptoms or with NIHSS increase >/= 3 points. Following change in neurological status, NIHSS will be performed per physician order or more frequently PRN. -1a. Level of Consciousness 1 - Not alert; Arousable by minor stimuli to obey, answer & respond -1b. LOC Questions 2 - Answers NEITHER question correctly -1c. LOC Commands 2 - Performs NEITHER task correctly -3. Visual 0 - No visual loss -4. Facial Palsy 0 - Normal symmetrical movements -5a. Left Arm 2 - Some effort against gravity; -5b. Right Arm 3 - No effort against gravity ; arm falls -6a. Left Leg 3 - No effort against gravity ; leg falls to bed immediately -6b. Right Leg 3 - No effort against gravity ; leg falls to bed immediately -7. Limb Ataxia 0 - Absent -8. Sensory 0 - Normal; no sensory loss -9. Best Language 2 - Severe aphasia; -10. Dysarthria 2 - Severe dysarthria; -11. Extinction and Inattention 0 - No abnormality -Total 20 Query Text:A score of 0 is "normal" or asymptomatic. Total possible score is 42 . ED: Notify Physician for NIHSS increase by > / = 3 points. Inpatient: RN or Physician to activate a stroke alert for NIHSS increase of > / = 3 points. 04/27/251813 <Electronically signed by Vern Rao DO> Cosigner Signature (if applicable): CC: ~ Signed [facility] Work Phone: 1(549) 303-269506-10-2025 Progress note [facility] Medical Records Department [address] [place] [address] Progress Note - Hospitalist 04/27/25 180 MR#: [id number] Acct: [id number] Name: MICHAEL MULLINS Rep #:[id number] : 1940 85 From: Vern Rao DO PCP: Dr. Baron Espinoza MD Status:ADM I N Location: ICU CVICU20 2-1 Reason for Visit Reason for Visit: Diagnoses Fracture of unspecified part of neck of left femur, initial encounter for closedfracture (04/23/25) Displaced intertrochanteric fracture of left femur, initial encounter for closedfracture (04/23/25) Unspecified fall, initial encounter (04/23/25) Subjective Subjective Patient was seen and examined today, he had an MRI which again showed a left occipital parietal infarct, there was also 2 smaller infarcts-read out did not mention whether they were new or old. I talked at length to his who was inthe room at the time of my examination, patient's mental status is still somnolent, he does take ice cream orally and he does take his pills with applesauce. I feelhe is stable for transfer to PCU for further care at this time. I do not think he is a candidate togo to the rehab unit due to the fact I do not think he can perform 3 hours of physical therapy. I asked the to think about whether she would want a feeding tube if it came down to that scenario,she will discuss this with her children. Objective Data Objective Data Vital Signs: Vital Signs Temp Pulse Resp BP Pulse Ox O2 Del Method O2 Flow Rate 97.9 F 92 19 H 137/82 H 92 Room Air 2 04/27/25 16:00 04/27/25 16:00 04/27/25 16:00 04/27/25 16:00 04/27/25 16:00 04/27/25 16:00 04/27/25 13:20 Oxygen Flow Rate (L/min) 2 Oxygen Delivery Method Room Air Weight: 73 kg Body Mass Index (BMI) 25.2 Intake & Output: Intake and Output for Last 24 Hours 04/25/25 04/26/25 04/27/25 23:59 23:59 23:59 Intake Total 3180 / 3180 1448 / 1448 1113.75 / 1113.75 Output Total 250 / 650 1225 / 1575 1350 / 1350 Balance 2930 / 2530 223 / -127 -236.25 / -236.25 Lab / Micro Data 04/26/25 05:53 04/25/25 05:03 Labs: Laboratory Results - last 24 hr 04/23/25 21:46: Crossmatch See Detail 04/26/25 22:56: POC Glucose 77 04/27/25 05:44: POC Glucose 78 04/27/25 13:19: POC Glucose 90 04/27/25 16:15: POC Glucose 99 Radiography Diagnostic Testing: Radiology Impression Brain MRI 04/27/25 09:00 IMPRESSION: 1. Moderately large left parieto-occipital infarction, without associated midline shift or significant mass effect. 2. Moderate generalized cerebral and cerebellar atrophy. 3. At least moderate bilateral cerebral and pontine white matter changes are seen, consistent with chronic ischemic changes of small-vessel disease. 4. Partial opacification of left mastoid air cells, of uncertain chronicity; recommend clinical andhistorical correlation. 5. Additional findings as noted. Reading Location: [address] Physical Exam Narrative alert, no apparent distress, average body habitus and healthy appearing General Appearance: cooperative, well kempt and well developed Orientation / Consciousness: awake and oriented to person HEENT normocephalic, head/scalp atraumatic and moist oral mucous membranes Head and Scalp: normocephalic Eyes PERRL, EOMs intact bilaterally and conjunctivae normal Neck supple, no JVD, thyroid normal and no carotid bruits General: trachea midline Resp normal respiratory effort, no retractions, no use of accessory muscles and clearto auscultation bilaterally Auscultation: Negative for rales, rhonchi or wheezes Cardio regular rate, regular rhythm, S1 normal heart sound, S2 normal heart sound, no murmurs, no rub and no gallops GI normal to inspection, nondistended, normoactive bowel sounds, soft to palpation,non-tender and non-distended Extremity no clubbing, cyanosis or edema Skin no rashes or lesions noted General Skin Exam: no breakdown Neuro CN's II-XII intact bilaterally, no focal motor deficits and no sensory deficits noted Neuro Narrative: Patient is alert, he is confused, he does not appear agitated Sensorium / Orientation: awake, alert and oriented to person Speech: speech normal Psych Psych Narrative: Patient exhibits cognitive impairment, he is alert and does not carry on a conversation but says a few words which do not make sense. Assessment & Plan Assessment/Plan (1) Intertrochanteric fracture of left femur: (2) Closed fracture of left hip: PLAN: Plan 1. 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 Total clinical time spent by myself addressing the patient's medical issues, reviewing all of his data, and collaborating with the patient's care team: 35 minutes Charges/Coding Visit Charges Inpatient E&M: 85237 Subs Hosp L2 NIHSS NIHSS Nursing Documentation NIHSS Nursing Documentation: NIHSS: Ischemic Stroke/TIA Start: 04/26/25 10:12 Freq: Q4H Status: Active Protocol: Activity Type Activity Date Activity User E-sign Co-sign Detail Recorded Client Recorded Date Recorded By Document 04/27/25 16:00 DS [id number] 04/27/25 16:32 DS 04/27/25 16:00 NIH Stroke Scale [NIHSS] A score of 0 is "normal" or asymptomatic . Total possible score is 42. Inpatient: RN or Physician to activate a stroke alert for onset of new stroke symptoms or with NIHSS increase >/= 3 points. Following change in neurological status, NIHSS will be performed per physician order or more frequently PRN. -1a. Level of Consciousness 1 - Not alert; Arousable by minor stimuli to obey, answer & respond -1b. LOC Questions 2 - Answers NEITHER question correctly -1c. LOC Commands 2 - Performs NEITHER task correctly -3. Visual 0 - No visual loss -4. Facial Palsy 0 - Normal symmetrical movements -5a. Left Arm 2 - Some effort against gravity; -5b. Right Arm 3 - No effort against gravity ; arm falls -6a. Left Leg 3 - No effort against gravity ; leg falls to bed immediately -6b. Right Leg 3 - No effort against gravity ; leg falls to bed immediately -7. Limb Ataxia 0 - Absent -8. Sensory 0 - Normal; no sensory loss -9. Best Language 2 - Severe aphasia; -10. Dysarthria 2 - Severe dysarthria; -11. Extinction and Inattention 0 - No abnormality -Total 20 Query Text:A score of 0 is "normal" or asymptomatic. Total possible score is 42 . ED: Notify Physician for NIHSS increase by > / = 3 points. Inpatient: RN or Physician to activate a stroke alert for NIHSS increase of > / = 3 points. 04/27/251813 Cosigner Signature (if applicable): CC: ~ Signed [facility]06-09-2025 Progress note Author Vern Rao [facility] Note Date/Time April 26, 2025 6:52p m [facility] Medical Records Department [address] [place] [address] Progress Note - Hospitalist 04/26/25 1844 MR#: [id number] Acct: [id number] Name: MICHAEL MULLINS Rep #:[id number] : 1940 85 From: Vern Rao DO PCP: Dr. Baron Espinoza MD Status:ADM I N Location: ICU CVICU20 2-1 Reason for Visit Reason for Visit: Diagnoses Fracture of unspecified part of neck of left femur, initial encounter for closedfracture (04/23/25) Displaced intertrochanteric fracture of left femur, initial encounter for closedfracture (04/23/25) Unspecified fall, initial encounter (04/23/25) Subjective Subjective Patient was seen and examined today, a stroke alert was called earlier today andthe patient underwent a CT of the brain which showed a subacute stroke in the occipital area of the left brain. Patient was able to follow most commands on the neuroexam, he denied any vision loss to this examiner. Telestroke neurologyrecommended the patient not received tenecteplase as the timeframe of the patient's neurological deficit was not well-documented. It was recommended the patient remain on his prophylactic DVT dose of apixaban and receive aspirin. Patient is currently n.p.o. per speech therapy, I will transition him over to rectal aspirin. Objective Data Objective Data Vital Signs: Vital Signs Temp Pulse Resp BP Pulse Ox O2 Del Method O2 Flow Rate 97.9 F 95 20 H 194/87 H 89 Room Air 4 04/26/25 17:15 04/26/25 18:00 04/26/25 18:00 04/26/25 18:00 04/26/25 18:00 04/26/25 18:00 04/26/25 17:15 Oxygen Flow Rate (L/min) 4 Oxygen Delivery Method Room Air Weight: 73.5 kg Body Mass Index (BMI) 25.4 Intake & Output: Intake and Output for Last 24 Hours 04/24/25 04/25/25 04/26/25 23:59 23:59 23:59 Intake Total 4142 / 4142 3180 / 3180 1048 / 1048 Output Total 675 / 675 250 / 650 1025 / 1025 Balance 3467 / 3467 2930 / 2530 Lab / Micro Data 04/26/25 05:53 04/25/25 05:03 Labs: Laboratory Results - last 24 hr 04/23/25 21:46: Crossmatch See Detail 04/25/25 16:57: POC Glucose 102 04/25/25 23:08: POC Glucose 130 H 04/26/25 05:53: WBC 10.1, RBC 2.19 L, Hgb 7.1 L, Hct 21.8 L, MCV 99.5 H, MCH 32.4 H, MCHC 32.6, RDW Std Deviation 58.6 H, RDW Coeff of Eduarda 16.0 H, Plt Count 104 L, MPV 11.4, Immature Gran % (Auto) 0.500, Neut % (Auto) 72.4 H, Lymph % (Auto) 17.2 L, Parker % (Auto) 9.2, Eos % (Auto) 0.6, Baso % (Auto) 0.1, Absolute Neuts (auto) 7.3, Absolute Lymphs (auto) 1.73, Nucleated RBC % 0.4 04/26/25 06:36: POC Glucose 79 04/26/25 08:36: POC Glucose 97 04/26/25 11:15: POC Glucose 83 04/26/25 15:36: POC Glucose 82 Radiography Diagnostic Testing: Radiology Impression Head/Neck CTA 04/26/25 08:47 IMPRESSION: No significant stenosis seen. Red Alert: No sig stenosis The critical information above was relayed directly by me by telephone to AnnyluzVern on 04/26/2025 at 9:12 am with readback verification. Reading Location: [facility] 04/26/25 08:48 IMPRESSION: Several old infarcts as detailed above. 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 Call report to Reading Location: [facility] Physical Exam Narrative alert, no apparent distress, average body habitus and healthy appearing General Appearance: cooperative, well kempt and well developed Orientation / Consciousness: awake and oriented to person HEENT normocephalic, head/scalp atraumatic and moist oral mucous membranes Head and Scalp: normocephalic Eyes PERRL, EOMs intact bilaterally and conjunctivae normal Neck supple, no JVD, thyroid normal and no carotid bruits General: trachea midline Resp normal respiratory effort, no retractions, no use of accessory muscles and clearto auscultation bilaterally Auscultation: Negative for rales, rhonchi or wheezes Cardio regular rate, regular rhythm, S1 normal heart sound, S2 normal heart sound, no murmurs, no rub and no gallops GI normal to inspection, nondistended, normoactive bowel sounds, soft to palpation,non-tender and non-distended Extremity no clubbing, cyanosis or edema Skin no rashes or lesions noted General Skin Exam: no breakdown Neuro CN's II-XII intact bilaterally, no focal motor deficits and no sensory deficits noted Neuro Narrative: Patient is alert, he is confused, he does not appear agitated Sensorium / Orientation: awake, alert and oriented to person Speech: speech normal Psych Psych Narrative: Patient exhibits cognitive impairment, he is alert and does not carry on a conversation but says a few words which do not make sense. Assessment & Plan Assessment/Plan (1) Intertrochanteric fracture of left femur: (2) Closed fracture of left hip: PLAN: Plan 1. 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 Total clinical time spent by myself addressing the patient's medical issues, reviewing all of his data, and collaborating with the patient's care team: 35 minutes Charges/Coding Visit Charges Inpatient E&M: 92418 Subs Hosp L2 NIHSS NIHSS Nursing Documentation NIHSS Nursing Documentation: NIHSS: Ischemic Stroke/TIA Start: 04/26/25 10:12 Freq: Q4H Status: Active Protocol: Activity Type Activity Date Activity User E-sign Co-sign Detail Recorded Client Recorded Date Recorded By Document 04/26/25 14:14 CD [id number] 04/26/25 14:17 CD 04/26/25 14:14 NIH Stroke Scale [NIHSS] A score of 0 is "normal" or asymptomatic . Total possible score is 42. Inpatient: RN or Physician to activate a stroke alert for onset of new stroke symptoms or with NIHSS increase >/= 3 points. Following change in neurological status, NIHSS will be performed per physician order or more frequently PRN. -1a. Level of Consciousness 1 - Not alert; Arousable by minor stimuli to obey, answer & respond -1b. LOC Questions 1 - Answers ONE question correctly -1c. LOC Commands 1 - Performs ONE task correctly -2. Best Gaze 0 - Normal -3. Visual 0 - No visual loss -4. Facial Palsy 0 - Normal symmetrical movements -5a. Left Arm 2 - Some effort against gravity; -5b. Right Arm 3 - No effort against gravity ; arm falls -6a. Left Leg 3 - No effort against gravity ; leg falls to bed immediately -6b. Right Leg 3 - No effort against gravity ; leg falls to bed immediately -7. Limb Ataxia 0 - Absent -8. Sensory 0 - Normal; no sensory loss -9. Best Language 2 - Severe aphasia; -10. Dysarthria 2 - Severe dysarthria; -11. Extinction and Inattention 0 - No abnormality -Total 18 Query Text:A score of 0 is "normal" or asymptomatic. Total possible score is 42 . ED: Notify Physician for NIHSS increase by > / = 3 points. Inpatient: RN or Physician to activate a stroke alert for NIHSS increase of > / = 3 points. 04/26/25 185 <Electronically signed by Vern Rao DO> Cosigner Signature (if applicable): CC: ~ Signed [facility] Work Phone: 1(157) 391-614406-09-2025 Progress note [facility] Medical Records Department [address] [place] [address] Progress Note - Hospitalist 04/26/25 1844 MR#: [id number] Acct: [id number] Name: MICHAEL MULLINS Rep #:[id number] : 1940 85 From: Vern Rao DO PCP: Dr. Baron Espinoza MD Status:ADM I N Location: ICU CVICU20 2-1 Reason for Visit Reason for Visit: Diagnoses Fracture of unspecified part of neck of left femur, initial encounter for closedfracture (04/23/25) Displaced intertrochanteric fracture of left femur, initial encounter for closedfracture (04/23/25) Unspecified fall, initial encounter (04/23/25) Subjective Subjective Patient was seen and examined today, a stroke alert was called earlier today andthe patient underwent a CT of the brain which showed a subacute stroke in the occipital area of the left brain. Patientwas able to follow most commands on the neuroexam, he denied any vision loss to this examiner. Telestroke neurologyrecommended the patient not received tenecteplase as the timeframe of the patient's neurological deficit was not well-documented. It was recommended the patient remain on his prophylactic DVT dose of apixaban and receive aspirin. Patient is currently n.p.o. per speech therapy, I willtransition him over to rectal aspirin. Objective Data Objective Data Vital Signs: Vital Signs Temp Pulse Resp BP Pulse Ox O2 Del Method O2 Flow Rate 97.9 F 95 20 H 194/87 H 89 Room Air 4 04/26/25 17:15 04/26/25 18:00 04/26/25 18:00 04/26/25 18:00 04/26/25 18:00 04/26/25 18:00 04/26/25 17:15 Oxygen Flow Rate (L/min) 4 Oxygen Delivery Method Room Air Weight: 73.5 kg Body Mass Index (BMI) 25.4 Intake & Output: Intake and Output for Last 24 Hours 04/24/25 04/25/25 04/26/25 23:59 23:59 23:59 Intake Total 4142 / 4142 3180 / 3180 1048 / 1048 Output Total 675 / 675 250 / 650 1025 / 1025 Balance 3467 / 3467 2930 / 2530 / Lab / Micro Data 04/26/25 05:53 04/25/25 05:03 Labs: Laboratory Results - last 24 hr 04/23/25 21:46: Crossmatch See Detail 04/25/25 16:57: POC Glucose 102 04/25/25 23:08: POC Glucose 130 H 04/26/25 05:53: WBC 10.1, RBC 2.19 L, Hgb 7.1 L, Hct 21.8 L, MCV 99.5 H, MCH 32.4 H, MCHC 32.6, RDWStd Deviation 58.6 H, RDW Coeff of Eduarda 16.0 H, Plt Count 104 L, MPV 11.4, Immature Gran % (Auto) 0.500, Neut % (Auto) 72.4 H, Lymph % (Auto) 17.2 L, Parker % (Auto) 9.2, Eos % (Auto) 0.6, Baso % (Auto)0.1, Absolute Neuts (auto) 7.3, Absolute Lymphs (auto) 1.73, Nucleated RBC % 0.4 04/26/25 06:36: POC Glucose 79 04/26/25 08:36: POC Glucose 97 04/26/25 11:15: POC Glucose 83 04/26/25 15:36: POC Glucose 82 Radiography Diagnostic Testing: Radiology Impression Head/Neck CTA 04/26/25 08:47 IMPRESSION: No significant stenosis seen. Red Alert: No sig stenosis The critical information above was relayed directly by me by telephone to Vern Rao on 04/26/2025 at 9:12 am with readback verification. Reading Location: [facility] 04/26/25 08:48 IMPRESSION: Several old infarcts as detailed above. 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 Call report to Reading Location: [facility] Physical Exam Narrative alert, no apparent distress, average body habitus and healthy appearing General Appearance: cooperative, well kempt and well developed Orientation / Consciousness: awake and oriented to person HEENT normocephalic, head/scalp atraumatic and moist oral mucous membranes Head and Scalp: normocephalic Eyes PERRL, EOMs intact bilaterally and conjunctivae normal Neck supple, no JVD, thyroid normal and no carotid bruits General: trachea midline Resp normal respiratory effort, no retractions, no use of accessory muscles and clearto auscultation bilaterally Auscultation: Negative for rales, rhonchi or wheezes Cardio regular rate, regular rhythm, S1 normal heart sound, S2 normal heart sound, no murmurs, no rub and no gallops GI normal to inspection, nondistended, normoactive bowel sounds, soft to palpation,non-tender and non-distended Extremity no clubbing, cyanosis or edema Skin no rashes or lesions noted General Skin Exam: no breakdown Neuro CN's II-XII intact bilaterally, no focal motor deficits and no sensory deficits noted Neuro Narrative: Patient is alert, he is confused, he does not appear agitated Sensorium / Orientation: awake, alert and oriented to person Speech: speech normal Psych Psych Narrative: Patient exhibits cognitive impairment, he is alert and does not carry on a conversation but says a few words which do not make sense. Assessment & Plan Assessment/Plan (1) Intertrochanteric fracture of left femur: (2) Closed fracture of left hip: PLAN: Plan 1. 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 Total clinical time spent by myself addressing the patient's medical issues, reviewing all of his data, and collaborating with the patient's care team: 35 minutes Charges/Coding Visit Charges Inpatient E&M: 58264 Subs Hosp L2 NIHSS NIHSS Nursing Documentation NIHSS Nursing Documentation: NIHSS: Ischemic Stroke/TIA Start: 04/26/25 10:12 Freq: Q4H Status: Active Protocol: Activity Type Activity Date Activity User E-sign Co-sign Detail Recorded Client Recorded Date Recorded By Document 04/26/25 14:14 CD [id number] 04/26/25 14:17 CD 04/26/25 14:14 NIH Stroke Scale [NIHSS] A score of 0 is "normal" or asymptomatic . Total possible score is 42. Inpatient: RN or Physician to activate a stroke alert for onset of new stroke symptoms or with NIHSS increase >/= 3 points. Following change in neurological status, NIHSS will be performed per physician order or more frequently PRN. -1a. Level of Consciousness 1 - Not alert; Arousable by minor stimuli to obey, answer & respond -1b. LOC Questions 1 - Answers ONE question correctly -1c. LOC Commands 1 - Performs ONE task correctly -2. Best Gaze 0 - Normal -3. Visual 0 - No visual loss -4. Facial Palsy 0 - Normal symmetrical movements -5a. Left Arm 2 - Some effort against gravity; -5b. Right Arm 3 - No effort against gravity ; arm falls -6a. Left Leg 3 - No effort against gravity ; leg falls to bed immediately -6b. Right Leg 3 - No effort against gravity ; leg falls to bed immediately -7. Limb Ataxia 0 - Absent -8. Sensory 0 - Normal; no sensory loss -9. Best Language 2 - Severe aphasia; -10. Dysarthria 2 - Severe dysarthria; -11. Extinction and Inattention 0 - No abnormality -Total 18 Query Text:A score of 0 is "normal" or asymptomatic. Total possible score is 42 . ED: Notify Physician for NIHSS increase by > / = 3 points. Inpatient: RN or Physician to activate a stroke alert for NIHSS increase of > / = 3 points. 04/26/25 185 Cosigner Signature (if applicable): CC: ~ Signed [facility]06-09-2025 Consult note Author Jarret Sam [facility] Note Date/Time April 26, 2025 8:00a [facility] Medical Records Department [address] [place] [address] Anesthesia Postop Eval I 04/24/25 1130 MR#: [id number] Acct: [id number] Name: MICHAEL MULLINS Rep #:[id number] : 1940 85 From: Jarret Sam MD PCP: Dr. Baron Espinoza MD Status:ADM I N Y Race: C Location: [place] [address] Anesthesia: Postop Eval I Current Vital Signs Temperature: 96.3 F Pulse Rate: 50 Blood Pressure: 125/94 Respiratory Rate: 16 Pulse Ox: 94 Assessment Airway patent: Yes Spontaneous unlabored respirations: Yes Mental status: Awake nausea: No Vomiting: No Anesthesia Complication: No Fluid Hydration Crystalloid volume administer (ml): 1,200 Total IV fluid infused: 1,200 Progress Note Anesthesia document: Postop Eval 1 completed: Yes 04/26/25 08 <Electronically signed by Jarret Sam MD > Date _ Jarret Sam MD Cosigner Signature: Date CC: ~ Signed [facility] Work Phone: 1(194) 216-423206-09-2025 Consult note Author Jarret [facility] Note Date/Time April 26, 2025 8:00a [facility] Medical Records Department [address] [place] [address] Anesthesia Postop Eval II 04/26/25 08 MR#: [id number] Acct: [id number] Name: MICHAEL MULLINS Rep #:[id number] : 1940 85 From: Jarret Sam MD PCP: Dr. Baron Espinoza MD Status:ADM I N Y Race: C Location: [place] [address] Anesthesia Postop Eval I Sum Postop Eval Completion status Anesthesia document: Postop Eval 1 completed: Yes Anesthesia Postop Eval I Summary Anesthesia Postop Eval I Summary: Anesthesia Postop Eval I: Assessment Summary Airway patent Yes 04/26/25 08:00 Spontaneous unlabored Yes 04/26/25 08:00 respirations Mental status Awake 04/26/25 08:00 nausea No 04/26/25 08:00 Vomiting No 04/26/25 08:00 Anesthesia Postop Eval I: Fluid Summary Crystalloid volume administer 1,200 04/26/25 08:00 (ml) Colloids volume administered ( ml) Blood Product volume administered (ml) Total IV fluid infused 1,200 04/26/25 08:00 Anesthesia Postop Eval I: Summary Notes Anesthesia Complication No 04/26/25 08:00 Anesthesia Complication Comment: Post-operative progress note Anesthesia: Postop Eval II Evaluation Mental status: Awake Pain Level: 1 nausea: No Vomiting: No Complications Anesthesia Complication: No 04/26/25 0800 <Electronically signed by Jarret Sam MD > Date _ Jarret Sam MD Cosigner Signature: Date CC: ~ Signed [facility] Work Phone: 1(228) 583-419806-09-2025 Radiology Diagnostic study note [facility] Imaging Services [address] [place] [address] [id number] STROKE Brain/Head without Cont MR#: [id number] Acct: [id number] Name: MICHAEL MULLINS Rep #: [id number] : 1940 M 85 From: Boom Sterling MD PCP: Dr. Baron Espinoza MD Status: ADM I N Study:STROKE Brain/Head without Cont Date of Exam: 04/26/25 Exam# [id number] Ordering Dr: Vern Lay DO PROCEDURE: STROKE BRAIN/HEAD WITHOUT CONT 04/26/2025 REASON FOR EXAM: STROKE TECHNIQUE: Head CT without intravenous contrast. Coronal and Sagittal reconstruction serieswere provided. One or more dose reduction techniques were used (e.g., Automated exposure control, adjustment of the mA and/or kV according to patient size, use of iterative reconstruction technique. 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 Finding isnew compared to the previous study May 26, 2021. 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 Thisstable there is periventricular and deep white matter hypodensity indicating chronic small-vessel ischemic disease. CSF Spaces: Dorian cisterna magna. Dilated ventricles and prominent sulci from age-related involution Sinuses/Mastoids: Unremarkable as seen. Motion artifact. Bones: Skull intact. 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 Vern Rao DO; Dr. Baron Espinoza MD ~ Unit Supervisor: Signed [facility]06-09-2025 Radiology Diagnostic study note [facility] Imaging Services [address] [place] [address] STROKE CTA Head AND Neck W/Con MR#: [id number] Acct: [id number] Name: MICHAEL MULLINS Rep #: [id number] : 1940 M 85 From: Boom Sterling MD PCP: Dr. Baron Espinoza MD Status: ADM I N Study:STROKE CTA Head AND Neck W/Con Date of Exam: 04/26/25 Exam# [id number] Ordering Dr: Vern Lay DO PROCEDURE: STROKE CTA HEAD AND NECK W/CON 04/26/2025 REASON FOR EXAM: STROKE TECHNIQUE: CTA imaging of the head and neck from the aortic arch to the skull vertex with out contrast and with intravenous contrast. Multiplanar and multisequence images were obtained. CONTRAST: Isovue-300 VOLUME: 100 mL One or more dose reduction techniques were used (e.g., Automated exposure control, adjustment of the mA and/or kV according to patient size, use of iterative reconstruction technique). RADIATION DOSE SUMMARY: CTDlvol: 40.1 mGy DLP: 699.88 mGycm COMPARISON: None FINDINGS: Aortic Arch: Normal size and branching pattern. Mild atherosclerotic plaque. Brachiocephalic and Subclavians: Mild atherosclerotic plaque without significantstenosis. RIGHT Carotid: Right CCA: Unremarkable. Right ICA: Unremarkable. Right ECA: Unremarkable. LEFT Carotid: Left CCA: Unremarkable. Left ICA: Unremarkable. Left ECA: Unremarkable. Vertebrals: Codominant. Arise from the subclavians. Both vertebrals form the basilar. RIGHT Vertebral: Unremarkable. LEFT Vertebral: Unremarkable. Anatomy: [place] of Simmons anatomy is normal. Aneurysm or avm: No intracranial aneurysms or large vascular malformations are identified. Anterior cerebral arteries: Unremarkable: Middle cerebral arteries: Unremarkable. Basilar artery: Unremarkable. Posterior cerebral arteries: Unremarkable. Other major branches of the posterior circulation: Unremarkable. Major venous structures: Unremarkable. Other findings: Atherosclerotic calcific plaques of the cavernous portions of the internal carotid arteries. Prior fusion of the cervical spine. CT/STROKE CTA Head AND Neck W/Con IMPRESSION: No significant stenosis seen. Red Alert: No sig stenosis The critical information above was relayed directly by me by telephone to Vern Rao on 04/26/2025 at 9:12 am with readback verification. Reading Location: [place] [address] CC: Dr. Vern Rao DO; Dr. Baron Espinoza MD ~ Unit Supervisor: Signed [facility]06-09-2025 Consult note [facility] Medical Records Department [address] [place] [address] Anesthesia Postop Eval I 04/24/25 1130 MR#: [id number] Acct: [id number] Name: MICHAEL MULLINS Rep #:[id number] : 1940 85 From: Jarret Sam MD PCP: Dr. Baron Espinoza MD Status:ADM I N Y Race: C Location: [place] [address] Anesthesia: Postop Eval I Current Vital Signs Temperature: 96.3 F Pulse Rate: 50 Blood Pressure: 125/94 Respiratory Rate: 16 Pulse Ox: 94 Assessment Airway patent: Yes Spontaneous unlabored respirations: Yes Mental status: Awake nausea: No Vomiting: No Anesthesia Complication: No Fluid Hydration Crystalloid volume administer (ml): 1,200 Total IV fluid infused: 1,200 Progress Note Anesthesia document: Postop Eval 1 completed: Yes 04/26/25 0800 > Date _ Jarret Sam MD Cosigner Signature: Date CC: ~ Signed [facility]06-09-2025 Consult note [facility] Medical Records Department [address] [place] [address] Anesthesia Postop Eval II 04/26/25 0800 MR#: [id number] Acct: [id number] Name: MICHAEL MULLINS Rep #:[id number] : 1940 85 From: Jarret Sam MD PCP: Dr. Baron Espinoza MD Status:ADM I N Y Race: C Location: [facility]310 - Anesthesia Postop Eval I Sum Postop Eval Completion status Anesthesia document: Postop Eval 1 completed: Yes Anesthesia Postop Eval I Summary Anesthesia Postop Eval I Summary: Anesthesia Postop Eval I: Assessment Summary Airway patent Yes 04/26/25 08:00 Spontaneous unlabored Yes 04/26/25 08:00 respirations Mental status Awake 04/26/25 08:00 nausea No 04/26/25 08:00 Vomiting No 04/26/25 08:00 Anesthesia Postop Eval I: Fluid Summary Crystalloid volume administer 1,200 04/26/25 08:00 (ml) Colloids volume administered ( ml) Blood Product volume administered (ml) Total IV fluid infused 1,200 04/26/25 08:00 Anesthesia Postop Eval I: Summary Notes Anesthesia Complication No 04/26/25 08:00 Anesthesia Complication Comment: Post-operative progress note Anesthesia: Postop Eval II Evaluation Mental status: Awake Pain Level: 1 nausea: No Vomiting: No Complications Anesthesia Complication: No 04/26/25 0800 > Date _ Jarret Laura Signature: Date CC: ~ Signed [facility]06-08-2025 Progress note Author Vern Rao [facility] Note Date/Time April 25, 2025 1:55p m [facility] Medical Records Department [address] [place] [address] Progress Note - Hospitalist 04/25/25 1349 MR#: [id number] Acct: [id number] Name: MICHAEL MULLINS Rep #:[id number] : 1940 85 From: Vern Rao DO PCP: Dr. Baron Espinoza MD Status:ADM I N Location: [place] [address] Reason for Visit Reason for Visit: Diagnoses Fracture of unspecified part of neck of left femur, initial encounter for closedfracture (04/23/25) Displaced intertrochanteric fracture of left femur, initial encounter for closedfracture (04/23/25) Unspecified fall, initial encounter (04/23/25) Subjective Subjective Patient was seen and examined today, his hemoglobin was low this morning at 7.9,hemoglobin was repeated this afternoon and it was 8. Patient remains confused and talks very little, nursing felt that the patient needed an evaluation by speech therapy. Objective Data Objective Data Vital Signs: Vital Signs Temp Pulse Resp BP Pulse Ox O2 Del Method O2 Flow Rate 98.2 F 67 19 H 122/50 H 96 Nasal Cannula 2 04/25/25 08:33 04/25/25 08:33 04/25/25 08:33 04/25/25 08:33 04/25/25 08:33 04/25/25 08:33 04/25/25 08:33 Oxygen Flow Rate (L/min) 2 Oxygen Delivery Method Nasal Cannula Weight: 73.3 kg Body Mass Index (BMI) 25.3 Intake & Output: Intake and Output for Last 24 Hours 04/23/25 04/24/25 04/25/25 23:59 23:59 23:59 Intake Total 0 / 0 4142 / 4142 2190 / 2190 Output Total 675 / 675 250 / 250 Balance 0 / 0 3467 / 3467 1940 / 1940 Lab / Micro Data 04/25/25 12:46 04/25/25 05:03 Labs: Laboratory Results - last 24 hr 04/24/25 13:04: POC Glucose 131 H 04/24/25 17:05: POC Glucose 135 H 04/24/25 22:41: POC Glucose 110 H 04/25/25 05:03: WBC 9.3, RBC 2.43 L, Hgb 7.9 L, Hct 24.5 L, MCV 100.8 H, MCH 32.5 H, MCHC 32.2, RDW Std Deviation 59.1 H, RDW Coeff of Eduarda 15.9 H, Plt Count 104 L, MPV 12.1 H, Immature Gran % (Auto) 0.300, Neut % (Auto) 67.8, Lymph % (Auto) 22.0, Parker % (Auto) 9.6, Eos % (Auto) 0.2, Baso % (Auto) 0.1, Absolute Neuts (auto) 6.3, Absolute Lymphs (auto) 2.05, Nucleated RBC % 0.2, Sodium 140, Potassium 5.6 H, Chloride 116 H, Carbon Dioxide 16.0 L, Anion Gap 9, BUN 49 H, Creatinine 2.40 H, Estim Creat Clear Calc 21.05 L, Est GFR (MDRD) Non-Af 26 L, BUN/Creatinine Ratio 20.3 H, Glucose 106 H, Calcium 7.1 L 04/25/25 06:19: POC Glucose 110 H 04/25/25 12:42: POC Glucose 112 H 04/25/25 12:46: WBC 11.6 H, RBC 2.47 L, Hgb 8.0 L, Hct 25.2 L, MCV 102.0 H, MCH 32.4 H, MCHC 31.7 L, RDW Std Deviation 58.4 H, RDW Coeff of Eduarda 15.9 H, Plt Count 117 L, MPV 11.9, Immature Gran % (Auto) 0.300, Neut % (Auto) 78.4 H, Lymph% (Auto) 13.3 L, Parker % (Auto) 7.3, Eos % (Auto) 0.5, Baso % (Auto) 0.2, Absolute Neuts (auto) 9.1 H, Absolute Lymphs (auto) 1.54, Nucleated RBC % 0.3 Radiography Diagnostic Testing: Radiology Impression Echocardiogram 04/24/25 00:28 Interpretation Summary The estimated ejection fraction is 55 %. No evidence for diastolic dysfunction. Ordering Physician: Paty Morgan Referring Physician: BARON ESPINOZA Performed By: Anne Marie Cabello RCS Physical Exam Narrative alert, no apparent distress, average body habitus and healthy appearing General Appearance: cooperative, well kempt and well developed Orientation / Consciousness: awake and oriented to person HEENT normocephalic, head/scalp atraumatic and moist oral mucous membranes Head and Scalp: normocephalic Eyes PERRL, EOMs intact bilaterally and conjunctivae normal Neck supple, no JVD, thyroid normal and no carotid bruits General: trachea midline Resp normal respiratory effort, no retractions, no use of accessory muscles and clearto auscultation bilaterally Auscultation: Negative for rales, rhonchi or wheezes Cardio regular rate, regular rhythm, S1 normal heart sound, S2 normal heart sound, no murmurs, no rub and no gallops GI normal to inspection, nondistended, normoactive bowel sounds, soft to palpation,non-tender and non-distended Extremity no clubbing, cyanosis or edema Skin no rashes or lesions noted General Skin Exam: no breakdown Neuro CN's II-XII intact bilaterally, no focal motor deficits and no sensory deficits noted Neuro Narrative: Patient is alert, he is confused, he does not appear agitated Sensorium / Orientation: awake, alert and oriented to person Speech: speech normal Psych Psych Narrative: Patient exhibits cognitive impairment, he is alert and does not carry on a conversation but says a few words which do not make sense. Assessment & Plan Assessment/Plan (1) Intertrochanteric fracture of left femur: (2) Closed fracture of left hip: PLAN: Plan 1. Intertrochanteric fracture of the left hip secondary to osteoporosis-postop day #1 insertion of left hip cephalomedullary nail-continue PT and OT, patient will need inpatient rehab placement #2 essential hypertension-patient is on losartan, his blood pressure is running low today and I have instructed nursing to start some fluids on the patient. Anesthesia is aware of this. 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 Patient's white blood cell count is slightly high #4 hyperkalemia-patient's potassium this morning was 5.6, this may be secondary to the patient's use of losartan, I will repeat the patient's BMP tomorrow, if potassium is more elevated it may be necessary to discontinue his losartan #5 chronic kidney disease stage IV-patient's creatinine this morning was 2.40, continue IV fluids at this time #6 [id number] care, management, recovery, and prognosis #7 slightly low platelet count, I do not feel this will affect the patient for surgery #8 acute anemia-patient's hemoglobin is slightly lower than it was at the time of admission, I attribute this to his left hip fracture. CBC will be repeated tomorrow #9 cardiomyopathy by history-patient's echocardiogram showed an ejection fraction of 55% Total clinical time spent by myself addressing the patient's medical issues, reviewing all of his data, and collaborating with the patient's care team: 35 minutes Charges/Coding Visit Charges Inpatient E&M: 28777 Subs Hosp L2 04/25/25 1782 <Electronically signed by Vern Rao DO> Cosigner Signature (if applicable): CC: ~ Signed [facility] Work Phone: 1(250) 422-850306-08-2025 Progress note [facility] Medical Records Department [address] [place] [address] Progress Note - Hospitalist 04/25/25 1347 MR#: [id number] Acct: [id number] Name: MICHAEL MULLINS Rep #:[id number] : 1940 85 From: Vern Rao DO PCP: Dr. Baron Espinoza MD Status:ADM I N Location: [address] Reason for Visit Reason for Visit: Diagnoses Fracture of unspecified part of neck of left femur, initial encounter for closedfracture (04/23/25) Displaced intertrochanteric fracture of left femur, initial encounter for closedfracture (04/23/25) Unspecified fall, initial encounter (04/23/25) Subjective Subjective Patient was seen and examined today, his hemoglobin was low this morning at 7.9,hemoglobin was repeated this afternoon and it was 8. Patient remains confused and talks very little, nursing felt that the patient needed an evaluation by speech therapy. Objective Data Objective Data Vital Signs: Vital Signs Temp Pulse Resp BP Pulse Ox O2 Del Method O2 Flow Rate 98.2 F 67 19 H 122/50 H 96 Nasal Cannula 2 04/25/25 08:33 04/25/25 08:33 04/25/25 08:33 04/25/25 08:33 04/25/25 08:33 04/25/25 08:33 04/25/25 08:33 Oxygen Flow Rate (L/min) 2 Oxygen Delivery Method Nasal Cannula Weight: 73.3 kg Body Mass Index (BMI) 25.3 Intake & Output: Intake and Output for Last 24 Hours 04/23/25 04/24/25 04/25/25 23:59 23:59 23:59 Intake Total 0 / 0 4142 / 4142 2190 / 2190 Output Total 675 / 675 250 / 250 Balance 0 / 0 3467 / 3467 1939 / 1939 Lab / Micro Data 04/25/25 12:46 04/25/25 05:03 Labs: Laboratory Results - last 24 hr 04/24/25 13:04: POC Glucose 131 H 04/24/25 17:05: POC Glucose 135 H 04/24/25 22:41: POC Glucose 110 H 04/25/25 05:03: WBC 9.3, RBC 2.43 L, Hgb 7.9 L, Hct 24.5 L, MCV 100.8 H, MCH 32.5 H, MCHC 32.2, RDWStd Deviation 59.1 H, RDW Coeff of Eduarda 15.9 H, Plt Count 104 L, MPV 12.1 H, Immature Gran % (Auto) 0.300, Neut % (Auto) 67.8, Lymph % (Auto) 22.0, Parker % (Auto) 9.6, Eos % (Auto) 0.2, Baso % (Auto) 0.1, Absolute Neuts (auto) 6.3, Absolute Lymphs (auto) 2.05, Nucleated RBC % 0.2, Sodium 140, Potassium 5.6 H, Chloride 116 H, Carbon Dioxide 16.0 L, Anion Gap 9, BUN 49 H, Creatinine 2.40 H, Estim Creat Clear Calc 21.05 L, Est GFR (MDRD) Non-Af 26 L, BUN/Creatinine Ratio 20.3 H, Glucose 106 H, Calcium 7.1 L 04/25/25 06:19: POC Glucose 110 H 04/25/25 12:42: POC Glucose 112 H 04/25/25 12:46: WBC 11.6 H, RBC 2.47 L, Hgb 8.0 L, Hct 25.2 L, MCV 102.0 H, MCH 32.4 H, MCHC 31.7 L, RDW Std Deviation 58.4 H, RDW Coeff of Eduarda 15.9 H, Plt Count 117 L, MPV 11.9, Immature Gran % (Auto) 0.300, Neut % (Auto) 78.4 H, Lymph% (Auto) 13.3 L, Parker % (Auto) 7.3, Eos % (Auto) 0.5, Baso % (Auto) 0.2, Absolute Neuts (auto) 9.1 H, Absolute Lymphs (auto) 1.54, Nucleated RBC % 0.3 Radiography Diagnostic Testing: Radiology Impression Echocardiogram 04/24/25 00:28 Interpretation Summary The estimated ejection fraction is 55 %. No evidence for diastolic dysfunction. Ordering Physician: Paty Morgan Referring Physician: BARON ESPINOZA Performed By: Anne Marie Cabello RCS Physical Exam Narrative alert, no apparent distress, average body habitus and healthy appearing General Appearance: cooperative, well kempt and well developed Orientation / Consciousness: awake and oriented to person HEENT normocephalic, head/scalp atraumatic and moist oral mucous membranes Head and Scalp: normocephalic Eyes PERRL, EOMs intact bilaterally and conjunctivae normal Neck supple, no JVD, thyroid normal and no carotid bruits General: trachea midline Resp normal respiratory effort, no retractions, no use of accessory muscles and clearto auscultation bilaterally Auscultation: Negative for rales, rhonchi or wheezes Cardio regular rate, regular rhythm, S1 normal heart sound, S2 normal heart sound, no murmurs, no rub and no gallops GI normal to inspection, nondistended, normoactive bowel sounds, soft to palpation,non-tender and non-distended Extremity no clubbing, cyanosis or edema Skin no rashes or lesions noted General Skin Exam: no breakdown Neuro CN's II-XII intact bilaterally, no focal motor deficits and no sensory deficits noted Neuro Narrative: Patient is alert, he is confused, he does not appear agitated Sensorium / Orientation: awake, alert and oriented to person Speech: speech normal Psych Psych Narrative: Patient exhibits cognitive impairment, he is alert and does not carry on a conversation but says a few words which do not make sense. Assessment & Plan Assessment/Plan (1) Intertrochanteric fracture of left femur: (2) Closed fracture of left hip: PLAN: Plan 1. Intertrochanteric fracture of the left hip secondary to osteoporosis-postop day #1 insertion of left hip cephalomedullary nail-continue PT and OT, patient will need inpatient rehab placement #2 essential hypertension-patient is on losartan, his blood pressure is running low today and I have instructed nursing to start some fluids on the patient. Anesthesia is aware of this. 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 Patient's white blood cell count is slightly high #4 hyperkalemia-patient's potassium this morning was 5.6, this may be secondary to the patient's use of losartan, I will repeat the patient's BMP tomorrow, if potassium is more elevated it may be necessary to discontinue his losartan #5 chronic kidney disease stage IV-patient's creatinine this morning was 2.40, continue IV fluids at this time #6 [id number] care, management, recovery, and prognosis #7 slightly low platelet count, I do not feel this will affect the patient for surgery #8 acute anemia-patient's hemoglobin is slightly lower than it was at the time of admission, I attribute this to his left hip fracture. CBC will be repeated tomorrow #9 cardiomyopathy by history-patient's echocardiogram showed an ejection fraction of 55% Total clinical time spent by myself addressing the patient's medical issues, reviewing all of his data, and collaborating with the patient's care team: 35 minutes Charges/Coding Visit Charges Inpatient E&M: 91415 Subs Hosp L2 04/25/25 1355 Cosigner Signature (if applicable): CC: ~ Signed [facility]06-08-2025 Progress note Author Jose Miranda [facility] Note Date/Time April 25, 2025 8:51a m [facility] Medical Records Department [address] [place] [address] Progress Note - Orthopedic 04/25/25 0845 MR#: [id number] Acct: [id number] Name: MICHAEL MULLINS Rep #:[id number] : 1940 85 From: Jose Talbert PCP: Dr. Baron Espinoza MD Status:ADM I N Location: [place] [address] Subjective Subjective Patient doing well orthopedically. No acute events overnight. Mildly confused this morning. Reports continued pain. Nurse at bedside did note difficulty sitting at edge of bed due to kyphotic posture last evening. Objective Data Objective Data Vital Signs: Vital Signs Temp Pulse Resp BP Pulse Ox O2 Del Method O2 Flow Rate 97.9 F 64 16 102/76 95 Nasal Cannula 2 04/25/25 05:04 04/25/25 05:04 04/25/25 05:04 04/25/25 05:04 04/25/25 05:04 04/25/25 08:01 04/25/25 08:01 Oxygen Flow Rate (L/min) 2 Oxygen Delivery Method Nasal Cannula Weight: 161 lb 9.581 oz Body Mass Index (BMI) 25.3 Intake & Output: Intake and Output for Last 24 Hours 04/23/25 04/24/25 04/25/25 23:59 23:59 23:59 Intake Total 0 / 0 4142 / 4142 890 / 890 Output Total 675 / 675 100 / 100 Balance 0 / 0 3467 / 3467 790 / 790 Lab / Micro Data 04/25/25 05:03 04/25/25 05:03 Labs: Laboratory Results - last 24 hr 04/24/25 05:00: Sodium 140, Potassium 5.5 H, Chloride 111 H, Carbon Dioxide 19.8L, Anion Gap 9, BUN 42 H, Creatinine 2.15 H, Estim Creat Clear Calc 23.49 L, EstGFR (MDRD) Non-Af 30 L, BUN/Creatinine Ratio 19.5, Glucose 119 H, Calcium 8.0, Total Bilirubin 0.53, AST 32, ALT 20, Alkaline Phosphatase 98, Total Protein 5.3L, Albumin 3.3 L, Globulin 2.0 L, Albumin/Globulin Ratio 1.7 04/24/25 13:04: POC Glucose 131 H 04/24/25 17:05: POC Glucose 135 H 04/24/25 22:41: POC Glucose 110 H 04/25/25 05:03: WBC 9.3, RBC 2.43 L, Hgb 7.9 L, Hct 24.5 L, MCV 100.8 H, MCH 32.5 H, MCHC 32.2, RDW Std Deviation 59.1 H, RDW Coeff of Eduarda 15.9 H, Plt Count 104 L, MPV 12.1 H, Immature Gran % (Auto) 0.300, Neut % (Auto) 67.8, Lymph % (Auto) 22.0, Parker % (Auto) 9.6, Eos % (Auto) 0.2, Baso % (Auto) 0.1, Absolute Neuts (auto) 6.3, Absolute Lymphs (auto) 2.05, Nucleated RBC % 0.2, Sodium 140, Potassium 5.6 H, Chloride 116 H, Carbon Dioxide 16.0 L, Anion Gap 9, BUN 49 H, Creatinine 2.40 H, Estim Creat Clear Calc 21.05 L, Est GFR (MDRD) Non-Af 26 L, BUN/Creatinine Ratio 20.3 H, Glucose 106 H, Calcium 7.1 L 04/25/25 06:19: POC Glucose 110 H Decrease in hemoglobin noted. Radiography Diagnostic Testing: Radiology Impression Echocardiogram 04/24/25 00:28 Interpretation Summary The estimated ejection fraction is 55 %. No evidence for diastolic dysfunction. Ordering Physician: Paty Morgan Referring Physician: BARON ESPINOZA Performed By: Anne Marie Cabello RCS Hip X-Ray 04/24/25 09:30 IMPRESSION: Fluoroscopy provided for open reduction internal fixation left hip fracture. For full details, see the operative report Reading Location: [facility] Physical Exam Const alert Constitutional Narrative: Confused due to chronically altered mental status compounded by recent injury and surgery Left lower extremity: Dressing is clean dry and intact Sensations intact to light touch saphenous, sural, superficial peroneal, deep peroneal, and tibial distributions Motors intact EHL, DF, PF calves are soft and supple palpable DP pulse Assessment & Plan Assessment/Plan (1) Intertrochanteric fracture of left femur: PLAN: Postop day 1 left intertrochanteric hip fracture cephalomedullary nail fixation 1. DVT prophylaxis: Patient on Eliquis due to renal failure and concerns for limited mobility. However patient significant fall risk. Would consider baby aspirin twice a day if felt to be too great of a fall risk and bleeding risk. 2. Pain control: Per primary service. Would be careful with narcotics due to patient's mental status 3. Therapy: Weightbearing as tolerated, activity as tolerated within constraints from his mental status 4. Anemia: Acute on chronic due to recent fracture and surgery likely compounded by chronic dehydration. Would recommend beginning iron and folic acid supplements 5. Disposition: Patient is orthopedically stable at this time. Discharge will be dependent on medical stability and mobility. Based on patient's preinjury condition would anticipate need for fpc upon discharge. Plan will be for return to office in 2 weeks. If patient is institutionalized at that time would recommend x-rays at the institution and suture/staple removal on postop day 14 of wound is appropriate. Remove dressing on postoperative day 5 leave open to air if at home. Change dressing every other day and keep covered if in skilled facility until gilda are removed. At this time recommend Eliquis 2.5 mg twice a day for 2 weeks followed by aspirin twice a day for 2 weeks for DVT prophylaxis. If patient has major bleeding risk due to falls recommend 4 weeks total of baby aspirin twice a day. Will defer to medicine service for further risk assessment falls and intracranial bleeding. Please call orthopedics with any further questions or concerns. [facility] Office: 04/25/25850 <Electronically signed by Jose Miranda MD> Cosigner Signature (if applicable): CC: ~ Signed [facility] Work Phone: 1(632) 956-197606-08-2025 Progress note [facility] Medical Records Department [address] [place] [address] Progress Note - Orthopedic 04/25/25844 MR#: [id number] Acct: [id number] Name: MICHAEL MULLINS Rep #:[id number] : 1940 85 From: Jose Talbert PCP: Dr. Baron Espinoza MD Status:ADM I N Location: [place] [address] Subjective Subjective Patient doing well orthopedically. No acute events overnight. Mildly confused this morning. Reportscontinued pain. Nurse at bedside did note difficulty sitting at edge of bed due to kyphotic posturelast evening. Objective Data Objective Data Vital Signs: Vital Signs Temp Pulse Resp BP Pulse Ox O2 Del Method O2 Flow Rate 97.9 F 64 16 102/76 95 Nasal Cannula 2 04/25/25 05:04 04/25/25 05:04 04/25/25 05:04 04/25/25 05:04 04/25/25 05:04 04/25/25 08:01 04/25/25 08:01 Oxygen Flow Rate (L/min) 2 Oxygen Delivery Method Nasal Cannula Weight: 161 lb 9.581 oz Body Mass Index (BMI) 25.3 Intake & Output: Intake and Output for Last 24 Hours 04/23/25 04/24/25 04/25/25 23:59 23:59 23:59 Intake Total 0 / 0 4142 / 4142 890 / 890 Output Total 675 / 675 100 / 100 Balance 0 / 0 3467 / 3467 790 / 790 Lab / Micro Data 04/25/25 05:03 04/25/25 05:03 Labs: Laboratory Results - last 24 hr 04/24/25 05:00: Sodium 140, Potassium 5.5 H, Chloride 111 H, Carbon Dioxide 19.8L, Anion Gap 9, BUN42 H, Creatinine 2.15 H, Estim Creat Clear Calc 23.49 L, EstGFR (MDRD) Non-Af 30 L, BUN/Creatinine Ratio 19.5, Glucose 119 H, Calcium 8.0, Total Bilirubin 0.53, AST 32, ALT 20, Alkaline Phosphatase 98, Total Protein 5.3L, Albumin 3.3 L, Globulin 2.0 L, Albumin/Globulin Ratio 1.7 04/24/25 13:04: POC Glucose 131 H 04/24/25 17:05: POC Glucose 135 H 04/24/25 22:41: POC Glucose 110 H 04/25/25 05:03: WBC 9.3, RBC 2.43 L, Hgb 7.9 L, Hct 24.5 L, MCV 100.8 H, MCH 32.5 H, MCHC 32.2, RDWStd Deviation 59.1 H, RDW Coeff of Eduarda 15.9 H, Plt Count 104 L, MPV 12.1 H, Immature Gran % (Auto) 0.300, Neut % (Auto) 67.8, Lymph % (Auto) 22.0, Parker % (Auto) 9.6, Eos % (Auto) 0.2, Baso % (Auto) 0.1, Absolute Neuts (auto) 6.3, Absolute Lymphs (auto) 2.05, Nucleated RBC % 0.2, Sodium 140, Potassium 5.6 H, Chloride 116 H, Carbon Dioxide 16.0 L, Anion Gap 9, BUN 49 H, Creatinine 2.40 H, Estim Creat Clear Calc 21.05 L, Est GFR (MDRD) Non-Af 26 L, BUN/Creatinine Ratio 20.3 H, Glucose 106 H, Calcium 7.1 L 04/25/25 06:19: POC Glucose 110 H Decrease in hemoglobin noted. Radiography Diagnostic Testing: Radiology Impression Echocardiogram 04/24/25 00:28 Interpretation Summary The estimated ejection fraction is 55 %. No evidence for diastolic dysfunction. Ordering Physician: Paty Morgan Referring Physician: BARON ESPINOZA Performed By: Anne Marie Cabello RCS Hip X-Ray 04/24/25 09:30 IMPRESSION: Fluoroscopy provided for open reduction internal fixation left hip fracture. For full details, see the operative report Reading Location: [facility] Physical Exam Const alert Constitutional Narrative: Confused due to chronically altered mental status compounded by recent injury and surgery Left lower extremity: Dressing is clean dry and intact Sensations intact to light touch saphenous, sural, superficial peroneal, deep peroneal, and tibial distributions Motors intact EHL, DF, PF calves are soft and supple palpable DP pulse Assessment & Plan Assessment/Plan (1) Intertrochanteric fracture of left femur: PLAN: Postop day 1 left intertrochanteric hip fracture cephalomedullary nail fixation 1. DVT prophylaxis: Patient on Eliquis due to renal failure and concerns for limited mobility. However patient significant fall risk. Would consider baby aspirin twice a day if felt to be too great of a fall risk and bleeding risk. 2. Pain control: Per primary service. Would be careful with narcotics due to patient's mental status 3. Therapy: Weightbearing as tolerated, activity as tolerated within constraints from his mental status 4. Anemia: Acute on chronic due to recent fracture and surgery likely compounded by chronic dehydration. Would recommend beginning iron and folic acid supplements 5. Disposition: Patient is orthopedically stable at this time. Discharge will be dependent on medical stability and mobility. Based on patient's preinjury condition would anticipate need for fpc upon discharge. Plan will be for return to office in 2 weeks. If patient is institutionalized at that time would recommend x-rays at the institution and suture/staple removal on postop day 14 of wound is appropriate. Remove dressing on postoperative day 5 leave open to air if at home. Changedressing every other day and keep covered if in skilled facility until gilda are removed. At thistime recommend Eliquis 2.5 mg twice a day for 2 weeks followed by aspirin twice a day for 2 weeks for DVT prophylaxis. If patient has major bleeding risk due to falls recommend 4 weeks total of baby aspirin twice a day. Will defer to medicine service for further risk assessment falls and intracranial bleeding. Please call orthopedics with any further questions or concerns. [facility] Office: 04/25/25 [phone] Cosigner Signature (if applicable): CC: ~ Signed [facility]06-07-2025 Consult note Author Jose Miranda [facility] Note Date/Time April 24, 2025 9:42a m [facility] Medical Records Department [address] [place] [address] Consultation - Orthopedics 04/24/25 0934 MR#: [id number] Acct: [id number] Name: MICHAEL MULLINS Rep #:[id number] : 1940 85 From: Jose Talbert PCP: Dr. Baron Espinoza MD Status:ADM I N Location: [facility] NM752-0 HPI Consult Data Date of Consult: 04/24/25 HPI Narrative Reason for Consultation: Left hip pain HPI Narrative: MICHAEL MULLINS, is a 85 M who presents today with left hip pain. Patient has significant dementia and is largely nonverbal. His is at bedside and givesthe majority of his history. She notes they were leaving the house yesterday inorder to go out to eat and patient had a mechanical fall. Patient was using a cane at that time. He has previously been instructed to use a walker more consistently. He walks with a kyphotic posture and gait. Patient does use a walker inside the home on a consistent basis and is supposed to use it outside the home. Patient's is unable to get him up and he was brought to the emergency department by ambulance. He was found to have a left intertrochanteric hip fracture admitted to the hospital overnight. There was some questions about his ejection fraction and echocardiogram was performed thismorning showing is 55%. Patient's history is limited secondary to inability to give significant information due to his dementia. [facility] Medical History Anxiety and depression COVID-19 Former smoker Degenerative disc disease, cervical Benign prostate hyperplasia Left bundle branch block Mild cognitive impairment with memory loss Alzheimer's disease Hypertension DM2 (diabetes mellitus, type 2) HTN (hypertension) Gout Heart failure with reduced ejection fraction Hairy cell leukemia Hyperlipidemia Home Medications ?Medication ?Instructions ?Recorded ?Last Taken ?Type atorvastatin 10 mg tablet 10 mg PO QHS CHOLESTEROL 01/3104/23/25 History doxazosin 1 mg tablet 1 mg PO QHS prostate 6 04/23/25 History donepezil 5 mg tablet 10 mg PO QHS memory 11/28/17 04/23/25 History paroxetine HCl 10 mg tablet 10 mg PO DAILY anxiety 10/0504/23/25 History allopurinol 300 mg tablet 300 mg PO DAILY GOUT 8 04/23/25 History (Zyloprim) memantine 5 mg tablet 10 mg PO BID memory 05/26/21 04/22/25 History ibuprofen 200 mg capsule 200 mg PO Q4H PRN Pain 03/0504/22/25 History cholecalciferol (vitamin D3) 25 25 mcg PO DAILY ordere d 05/14/23 04/23/25 History mcg (1,000 unit) tablet losartan 50 mg tablet 50 mg PO DAILY BP 04/23/25 0 04/23/25 History Allergy/AdvReac Type Severity Reaction Status Date / Time gabapentin Allergy tremors Verified 04/23/25 20:24 metoprolol (From Toprol XL) Allergy PT UNSURE Verified 04/23/25 20:24 OF REACTION ramipril (From Altace) Allergy PT UNSURE Verified 04/23/25 20:24 OF REACTION Family History Mother Cancer Father Heart disease Hypertension Surgical History History of parathyroid surgery Hx of splenectomy History of appendectomy H/O total hip arthroplasty Social History household members: spouse Smoking Status: Former smoker alcohol intake: never substance use type: does not use ROS ROS Narrative Significant dementia. 14 point review of systems also was mentioned in the HPI is negative or noncontributory today. Vital Signs Vital Signs Vital Signs: 04/23/25 20:24 04/23/25 20:32 04/23/25 22:21 Temperature 97.9 F Temperature Source Oral Pulse Rate 58 L Respiratory Rate 16 Respiratory Effort Normal Non-Labored Respiratory Depth Respiratory Pattern Blood Pressure 159/94 H 94/72 Blood Pressure Mean 115 79 Blood Pressure Source Blood Pressure Position Blood Pressure Location Pulse Ox 95 92 Oxygen Delivery Method Room Air Room Air Oxygen Flow Rate (L/min) 04/23/25 22:33 04/23/25 23:39 04/23/25 23:39 Temperature 97.9 F Temperature Source Pulse Rate 58 L 54 L Respiratory Rate 16 14 Respiratory Effort Respiratory Depth Respiratory Pattern Blood Pressure 102/61 75/41 L Blood Pressure Mean 74 52 Blood Pressure Source Blood Pressure Position Blood Pressure Location Pulse Ox 91 86 97 Oxygen Delivery Method Room Air Nasal Cannula Oxygen Flow Rate (L/min) 3 04/23/25 23:46 04/23/25 23:48 04/23/25 23:50 Temperature Temperature Source Pulse Rate 54 L 53 L 51 L Respiratory Rate 16 14 Respiratory Effort Respiratory Depth Respiratory Pattern Blood Pressure 80/43 L 92/35 L 97/38 L Blood Pressure Mean 55 54 57 Blood Pressure Source Blood Pressure Position Blood Pressure Location Pulse Ox 96 96 Oxygen Delivery Method Nasal Cannula Nasal Cannula Oxygen Flow Rate (L/min) 2 2 04/23/25 23:59 04/24/25 00:10 04/24/25 01:00 Temperature 97 F L Temperature Source Oral Pulse Rate 50 L 54 L 56 L Respiratory Rate 16 16 Respiratory Effort Respiratory Depth Respiratory Pattern Blood Pressure 104/35 L 113/42 L 125/64 H Blood Pressure Mean 58 65 84 Blood Pressure Source Monitor Blood Pressure Position Semi-Fowlers Blood Pressure Location Left Arm Pulse Ox 97 99 Oxygen Delivery Method Nasal Cannula Nasal Cannula Oxygen Flow Rate (L/min) 2 2 04/24/25 01:21 04/24/25 05:00 04/24/25 05:07 Temperature 97.5 F L Temperature Source Temporal Pulse Rate 64 Respiratory Rate 16 Respiratory Effort Normal Non-Labored Respiratory Depth Normal Respiratory Pattern Normal Blood Pressure 103/55 L Blood Pressure Mean 71 Blood Pressure Source Monitor Blood Pressure Position Semi-Fowlers Blood Pressure Location Left Arm Pulse Ox 89 95 Oxygen Delivery Method Nasal Cannula Room Air Nasal Cannula Oxygen Flow Rate (L/min) 2 2 04/24/25 08:05 04/24/25 08:23 04/24/25 09:12 Temperature 97.5 F L 97.6 F L Temperature Source Temporal Pulse Rate 64 53 L Respiratory Rate 16 16 Respiratory Effort Respiratory Depth Respiratory Pattern Blood Pressure 103/55 L 99/51 L Blood Pressure Mean 67 Blood Pressure Source Monitor Blood Pressure Position Semi-Fowlers Blood Pressure Location Right Arm Pulse Ox 94 94 98 Oxygen Delivery Method Nasal Cannula Room Air Oxygen Flow Rate (L/min) 2 2 Weight Weight: 158 lb 15.253 oz Body Mass Index (BMI) 24.9 Physical Exam Const alert Constitutional Narrative: Nonverbal due to dementia HEENT normocephalic Eyes PERRL Neck no JVD Resp normal respiratory effort Cardio Cardio Narrative: Regular pulse GI non-distended Extremity Extremity Narrative: Left lower extremity: Skin clean, dry, and intact. Limb is shortened and externally rotated Motor is intact dorsiflexion, EHL and plantar flexion. Sensation is intact to light touch saphenous, hortencia,l superficial peroneal, deep peroneal and tibial distributions. Calves are soft and supple. Skin no wounds Neuro moves all extremities Speech: speech abnormal Details: Positive for other (Nonverbal due to dementia) Psych Memory / Cognition: cognition impaired Medical Records Data Attestation: I reviewed the patient's medical records Lab / Micro Data Attestation: I reviewed the patient's lab results. 04/24/25 05:00 04/24/25 05:00 Labs: Laboratory Results - last 24 hr 04/23/25 20:25: WBC 7.8, RBC 4.02 L, Hgb 13.1, Hct 39.5 L, MCV 98.3 H, MCH 32.6 H, MCHC 33.2, RDW Std Deviation 53.9 H, RDW Coeff of Eduarda 15.1 H, Plt Count 187, MPV 11.6, Immature Gran % (Auto) 0.500, Neut % (Auto) 52.0, Lymph % (Auto) 37.3,Parker % (Auto) 7.9, Eos % (Auto) 1.9, Baso % (Auto) 0.4, Absolute Neuts (auto) 4.1, Absolute Lymphs (auto) 2.91, Nucleated RBC % 0.3, Sodium 140, Potassium 5.3H, Chloride 107, Carbon Dioxide 23.5, Anion Gap 10, BUN 38 H, Creatinine 1.81 H,Estim Creat Clear Calc 28.91 L, Est GFR (MDRD) Non-Af 37 L, BUN/Creatinine Ratio21.2 H, Glucose 86, Calcium 8.9, Magnesium 2.3 H, NT pro BNP II 1237 04/23/25 21:45: PT 13.9, INR 1.1 04/23/25 21:46: Blood Type O POSITIVE, Antibody Screen NEGATIVE 04/24/25 05:00: WBC 13.9 H, RBC 3.29 L, Hgb 10.7 L, Hct 32.8 L, MCV 99.7 H, MCH 32.5 H, MCHC 32.6, RDW Std Deviation 57.1 H, RDW Coeff of Eduarda 15.5 H, Plt Count 146 L, MPV 10.8, Immature Gran % (Auto) 0.400, Neut % (Auto) 79.5 H, Lymph % (Auto) 12.7 L, Parker % (Auto) 7.3, Eos % (Auto) 0.0, Baso % (Auto) 0.1, Absolute Neuts (auto) 11.0 H, Absolute Lymphs (auto) 1.76, Nucleated RBC % 0.1, Sodium 140, Potassium 5.5 H, Chloride 111 H, Carbon Dioxide 19.8 L, Anion Gap 9, BUN 42H, Creatinine 2.15 H, Estim Creat Clear Calc 23.49 L, Est GFR (MDRD) Non-Af 30 L, BUN/Creatinine Ratio 19.5, Glucose 119 H, Hemoglobin A1c 5.8 H, Calcium 8.0, Total Bilirubin 0.53, AST 32, ALT 20, Alkaline Phosphatase 98, Total Protein 5.3L, Albumin 3.3 L, Globulin 2.0 L, Albumin/Globulin Ratio 1.7 04/24/25 06:38: POC Glucose 108 H Imaging Radiology Impression Hip/Pelvis X-Ray 04/23/25 21:05 IMPRESSION: Acute comminuted intertrochanteric fracture of the left femur with mild shortening and varus angulation. No additional fractures or dislocation. Reading Location: [facility] Independent review shows left displaced intertrochanteric hip fracture. Chest X-Ray 04/23/25 22:45 IMPRESSION: 1. Subtle patchy opacity in the right mid lung zone could represent chronic changes of the lungs, with infection also possible. Correlate with symptoms. 2. Linear opacity in the left mid lung zone likely represents atelectasis or scarring. Reading Location: [id number] Assessment & Plan Assessment/Plan (1) Intertrochanteric fracture of left femur: PLAN: Patient is nonverbal. Due to his dementia minimal communication. Primarycommunication was done with his who is his power of staff attorney. Natural history of the disease process and treatment options were discussed with the patient's family. Did recommend cephalomedullary nail of the left hip. Nonoperative treatment was also discussed but not recommended. Risk and benefits of the procedure were discussed with patient including but not limited to blood loss, DVTs, PEs, nervous damage, infection, general risk of anesthesia including loss of life. We also discussed nonunion, malunion, hardware failure and screw cut out. Patient's /power of staff attorney demonstrates understanding of these risks and wishes to move forward. Will order antibiotics on-call to the operating room. Patient is NPO. Patient has been cleared by medicine for surgery. 04/24/25 0942 <Electronically signed by Jose Miranda MD> Cosigner Signature (if applicable): CC: Dr. Baron Espinoza MD~ Signed [facility] Work Phone: 1(620) 803-998706-07-2025 Progress note Author Vern Rao [facility] Note Date/Time April 24, 2025 9:32a m [facility] Medical Records Department [address] [place] [address] Progress Note - Hospitalist 04/24/2520 MR#: [id number] Acct: [id number] Name: MICHAEL MULLINS Rep #:[id number] : 1940 85 From: Vern Rao DO PCP: Dr. Baron Espinoza MD Status:ADM I N Location: [place] [address] Reason for Visit Reason for Visit: Diagnoses Fracture of unspecified part of neck of left femur, initial encounter for closedfracture (04/23/25) Unspecified fall, initial encounter (04/23/25) Subjective Subjective Patient was seen and examined today, is in the room and I obtained some medical information from her due to the patient's dementia. Patient was admitted last night with a intertrochanteric fracture of the left hip, the plan is to do an intramedullary nail for repair. I talked with orthopedic surgery aswell as anesthesia. Patient appears in no distress, he is on minimal oxygen at 2 L, echocardiogram is being performed at the time my examination. Patient's states that he has a history of leukemia but is under no treatment for it-she states it is in remission. Patient has no history of coronary disease, there is a history of cardiomyopathy not attributed to coronary disease-patient's states the last echocardiogram showed an EF of approximately 30%. Patient has a history of hypertension takes losartan and hyperlipidemia and he takes Lipitor. Patient has a history of peripheral neuropathy but according to the patient's med list, he does not take any medicine for this. Patient is on Paxil for chronic depression, otherwise I feelhe is on minimal medications. Patient has no history of lung disease and does not wear supplemental oxygen at home. Patient underwent repair of his right hipyears ago due to a fall with a fracture. At the time my examination, patient is alert in no distress, he does try to talkbut what he says does not make any sense. Objective Data Objective Data Vital Signs: Vital Signs Temp Pulse Resp BP Pulse Ox O2 Del Method O2 Flow Rate 97.5 F L 64 16 103/55 L 94 Nasal Cannula 2 04/24/25 08:23 04/24/25 08:23 04/24/25 08:23 04/24/25 08:23 04/24/25 08:23 04/24/25 08:05 04/24/25 08:23 Oxygen Flow Rate (L/min) 2 Oxygen Delivery Method Nasal Cannula Weight: 72.1 kg Body Mass Index (BMI) 24.9 Intake & Output: Intake and Output for Last 24 Hours 04/22/25 04/23/25 04/24/25 23:59 23:59 23:59 Intake Total 0 / 0 1000 / 1000 Output Total 125 / 125 Balance 0 / 0 875 / 875 Lab / Micro Data 04/24/25 05:00 04/24/25 05:00 Labs: Laboratory Results - last 24 hr 04/23/25 20:25: WBC 7.8, RBC 4.02 L, Hgb 13.1, Hct 39.5 L, MCV 98.3 H, MCH 32.6 H, MCHC 33.2, RDW Std Deviation 53.9 H, RDW Coeff of Eduarda 15.1 H, Plt Count 187, MPV 11.6, Immature Gran % (Auto) 0.500, Neut % (Auto) 52.0, Lymph % (Auto) 37.3,Parker % (Auto) 7.9, Eos % (Auto) 1.9, Baso % (Auto) 0.4, Absolute Neuts (auto) 4.1, Absolute Lymphs (auto) 2.91, Nucleated RBC % 0.3, Sodium 140, Potassium 5.3H, Chloride 107, Carbon Dioxide 23.5, Anion Gap 10, BUN 38 H, Creatinine 1.81 H,Estim Creat Clear Calc 28.91 L, Est GFR (MDRD) Non-Af 37 L, BUN/Creatinine Ratio21.2 H, Glucose 86, Calcium 8.9, Magnesium 2.3 H, NT pro BNP II 1237 04/23/25 21:45: PT 13.9, INR 1.1 04/23/25 21:46: Blood Type O POSITIVE, Antibody Screen NEGATIVE 04/24/25 05:00: WBC 13.9 H, RBC 3.29 L, Hgb 10.7 L, Hct 32.8 L, MCV 99.7 H, MCH 32.5 H, MCHC 32.6, RDW Std Deviation 57.1 H, RDW Coeff of Eduarda 15.5 H, Plt Count 146 L, MPV 10.8, Immature Gran % (Auto) 0.400, Neut % (Auto) 79.5 H, Lymph % (Auto) 12.7 L, Parker % (Auto) 7.3, Eos % (Auto) 0.0, Baso % (Auto) 0.1, Absolute Neuts (auto) 11.0 H, Absolute Lymphs (auto) 1.76, Nucleated RBC % 0.1, Sodium 140, Potassium 5.5 H, Chloride 111 H, Carbon Dioxide 19.8 L, Anion Gap 9, BUN 42H, Creatinine 2.15 H, Estim Creat Clear Calc 23.49 L, Est GFR (MDRD) Non-Af 30 L, BUN/Creatinine Ratio 19.5, Glucose 119 H, Hemoglobin A1c 5.8 H, Calcium 8.0, Total Bilirubin 0.53, AST 32, ALT 20, Alkaline Phosphatase 98, Total Protein 5.3L, Albumin 3.3 L, Globulin 2.0 L, Albumin/Globulin Ratio 1.7 04/24/25 06:38: POC Glucose 108 H Radiography Diagnostic Testing: Radiology Impression Hip/Pelvis X-Ray 04/23/25 21:05 IMPRESSION: Acute comminuted intertrochanteric fracture of the left femur with mild shortening and varus angulation. No additional fractures or dislocation. Reading Location: [facility] Chest X-Ray 04/23/25 22:45 IMPRESSION: 1. Subtle patchy opacity in the right mid lung zone could represent chronic changes of the lungs, with infection also possible. Correlate with symptoms. 2. Linear opacity in the left mid lung zone likely represents atelectasis or scarring. Reading Location: [id number] Physical Exam Const alert, no apparent distress, average body habitus and healthy appearing General Appearance: cooperative, well kempt and well developed Orientation / Consciousness: awake and oriented to person HEENT normocephalic, head/scalp atraumatic and moist oral mucous membranes Head and Scalp: normocephalic Eyes PERRL, EOMs intact bilaterally and conjunctivae normal Neck supple, no JVD, thyroid normal and no carotid bruits General: trachea midline Resp normal respiratory effort, no retractions, no use of accessory muscles and clearto auscultation bilaterally Auscultation: Negative for rales, rhonchi or wheezes Cardio regular rate, regular rhythm, S1 normal heart sound, S2 normal heart sound, no murmurs, no rub and no gallops GI normal to inspection, nondistended, normoactive bowel sounds, soft to palpation,non-tender and non-distended Extremity no clubbing, cyanosis or edema Skin no rashes or lesions noted General Skin Exam: no breakdown Neuro CN's II-XII intact bilaterally, no focal motor deficits and no sensory deficits noted Neuro Narrative: Patient is alert, he is confused, he does not appear agitated Sensorium / Orientation: awake, alert and oriented to person Speech: speech normal Psych Psych Narrative: Patient exhibits cognitive impairment, he is alert and does not carry on a conversation but says a few words which do not make sense. Assessment & Plan Assessment/Plan (1) Closed fracture of left hip: PLAN: Plan 1. Intertrochanteric fracture of the left hip secondary to osteoporosis-I talked extensively with orthopedic surgery this morning, I also talked with anesthesia and cardiology. I feel the patient is stable for surgery at this time is moderate risk due to his age, he has no history of coronary disease or lung disease and he is not diabetic. #2 essential hypertension-patient is on losartan, his blood pressure is running low today and I have instructed nursing to start some fluids on the patient. Anesthesia is aware of this. 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 Patient's white blood cell count is slightly high #4 hyperkalemia-patient's potassium this morning was 5.5, I do not feel this is significant, I do not feel it needs to be treated. #5 chronic kidney disease stage IV-patient's creatinine this morning was 2.15, Ifeel he is a little bit "dry" and will need some fluids. #6 rxrulmtl-xzomzxsp-fmrfwyotyaq care, management, recovery, and prognosis #7 slightly low platelet count, I do not feel this will affect the patient for surgery #8 acute anemia-patient's hemoglobin is slightly lower than it was at the time of admission, I attribute this to his left hip fracture. #9 cardiomyopathy by history-patient's echocardiogram today appeared to show an ejection fraction of 50 to 55% and no significant valvular heart disease, this will be read out this afternoon when cardiology is here for rounds. I discussed this case with cardiology and I do not feel they need to see the patient, they were okay with this and I have canceled the consult. Total clinical time spent by myself addressing the patient's medical issues, reviewing all of his data, and collaborating with the patient's care team: 55 minutes Charges/Coding Visit Charges Inpatient E&M: 59471 Subs Hosp L3 04/24/25 0932 <Electronically signed by Vern Rao DO> Cosigner Signature (if applicable): CC: ~ Signed [facility] Work Phone: 1(325) 652-481906-07-2025 Radiology Diagnostic study note [facility] Imaging Services [address] [place], [place] [address] Hip Min 2 Views (Portable) MR#: [id number] Acct: [id number] Name: MICHAEL MULLINS Rep #: [id number] : 1940 M 85 From: Pet er Steven PEREA PCP: Dr. Baron Espinoza MD Status: ADM I N Study:Hip Min 2 Views (Portable) Date of Exam : 04/24/25 Exam# [id number] Ordering Dr: Rosalina Miranda MD PROCEDURE: HIP MIN 6 VIEWS (PORTABLE) 04/24/2025. Portable C-arm furnished for left hip fracture REASON FOR EXAM: NAILING TECHNIQUE: Fluoroscopic spot images were obtained with the portable C-arm COMPARISON: Left hip radiographs from 04/23/2020 FINDINGS: 6 fluoroscopic spot images are obtained with images demonstrating placement of long intramedullary left femoral nail and dynamic compression screws in the left hip. Fluoroscopy time: 93.2 seconds. Radiation dose: 18.46 mGy RAD/Hip Min 2 Views (Portable) IMPRESSION: Fluoroscopy provided for open reduction internal fixation left hip fracture. For full details, see the operative report Reading Location[facility] CC: Dr. Jose Miranda MD; Dr. Baron Espinoza MD ~ Unit Supervisor: Signed [facility]06-07-2025 Consult note Author Jarret Sam [facility] Note Date/Time April 24, 2025 9:26a m [facility] Medical Records Department [address] [place] [address] Pre-Anesthesia Evaluation 04/24/25821 MR#: [id number] Acct: [id number] Name: MICHAEL MULLINS Rep #:[id number] : 1940 85 From: Jarret Sam MD PCP: Dr. Baron Espinoza MD Status:ADM I N Y Race: C Location: MA3 [id number] Jarret Sam MD on 04/24/25 at 0926 Addendum Echocardiogram just obtained by hospitalist. Shows an EF of 55% with normal wall motion. Patient is still in left bundle branch block on EKG. Will attemptspinal due to patient's dementia and atelectasis in the lungs. 04/24/25925 <Electronically signed by Jarret Sam MD > Date _ Jarret Sam MD cc: ~* Signed ASA Classification* ASA Classification ASA Classification: 3 and E Assessment & Plan Anesthesia* Anesthesia Assessment Anesthesia Assessment: Discussed sedation and/or anesthesia options, risks, benefits, and alternatives with patient/parents/legal guardian/POA. Questions invited. The patient/parents/legal guardian/POA seems to understand and agrees to proceedwith anesthesia plan. Reviewed the physical assessment, medical history, allergy history and patient home medications list prior to surgery/procedure/anesthetic and documented any changes. Performed airway and anesthesia risk assessments. Anesthesia Type Anesthesia Type: General Anesthesia Focused Assessment* Temperature: 97.5 F Pulse Rate: 64 Blood Pressure: 103/55 Respiratory Rate: 16 Pulse Ox: 94 Oxygen Flow Rate (L/min): 2 Airway Assessment Mouth opens: >3 cm Mallampati Score: II Labs Anesthesia Preop lab: CBC WBC 13.9 K/mm3 (4.4-11.0) H 04/24/25 05:00 5 RBC 3.29 M/mm3 (4.6-6.2) L 04/24/25 05:00 04/24/25 Hgb 10.7 g/dL (13.0-16.5) L 04/24/25 05:00 5 Hct 32.8 % (40-54) L 04/24/25 05:00 04/24/25 Plt Count 146 K/mm3 (150-450) L 04/24/25 05:00 04/24/25 CHEMISTRY Potassium 5.3 mmol/L (3.3-5.1) H 04/23/25 20:25 04/23/25 Sodium 140 mmol/L (133-145) 04/23/25 20:25 04/23/25 Magnesium 2.3 mg/dL (1.5-2.2) H 04/23/25 20:25 04/23/25 Phosphorus 2.5 mg/dL (2.5-4.9) 03/06/23 00:40 03/06/23 BUN 38 mg/dL (4-19) H 04/23/25 20:25 04/23/25 Creatinine 1.81 mg/dL (0.70-1.20) H 04/23/25 20:25 Glucose 86 mg/dL (70-99) 04/23/25 20:25 04/23/25 POC Glucose 108 mg/dL (74-106) H 04/24/25 06:38 04/24/25 TSH 0.26 uIU/mL (0.358-3.74) L 03/06/23 06:05 02/16 08/10 COAG PT 13.9 SECONDS (11.7-14.9) 04/23/25 21:45 Pre-Assessment Diagnosis/Proposed Procedure Planned Operative Procedure(s): GAMMA NAIL LEFT HIP FX Anesthesia History Anesthesia History - head of history: Anesthesia History - head of history Hx Hospitalization Yes: currently hospitalized 08/19/18 19:25 Any Problems With Anesthesia unknown 04/24/25 02:34 Cholinesterase deficiency No 04/24/25 02:34 You/Your Family Experience unknown 04/24/25 02:34 fever (hyperthermia) with Relationship Recent Exposure to Contagious No 04/24/25 02:34 Disease Does patient have nerve No 04/24/25 02:34 stimulator Patient instructed to have No 04/24/25 02:34 device shut off --Does patient have Pacemaker or ICD? When Was Last Pacemaker Check QUESTION #4 FULL TEXT: You/Your Family Experience fever (hyperthermia) with Anesthesia Last Oral Intake Last Oral intake: Last Oral Intake NPO since Meds taken in AM with sips of water? Meds patient instructed to take am of surgery PONV PONV - head of history: PONV - head of history Female HX of Motion Sickness HX of N/V After Surgery Non-Smoker Duration of Surgery greater than 60 minutes Number of Risk Factors PONV Score Height & Weight Height & Weight: Anesthesia: Height & Weight Height 5 ft 6.93 in 04/24/25 01:32 Weight: 72.1 kg 04/24/25 05:45 Body Mass Index (BMI) 24.9 04/24/25 05:45 Respiratory Assessment Respiratory Assessment - head of history: Respiratory Tract Infection Hx - head of history Hx Respiratory Tract Infection No 04/24/25 02:34 STOP Sleep Apnea STOP Sleep Apnea - head of history: STOP Sleep Apnea - head of history Hx Hypertension Yes 04/24/25 02:27 Hx Sleep Apnea No 04/24/25 02:27 CPAP No 03/06/23 01:27 BIPAP No 03/06/23 01:27 Do you snore loudly (louder No 04/24/25 02:27 than talking or can be heard Do you often feel tired/ No 04/24/25 02:27 fatigued/ sleepy during daytime? Has anyone observed you stop No 04/24/25 02:27 breathing during sleep? STOP Results Negative 04/24/25 02:27 QUESTION #5 FULL TEXT : Do you snore loudly (louder than talking or can be heard through closed doors)? Tobacco Use History Tobacco Use History - head of history: Tobacco Use History - head of history Tobacco Use Smoking Status Former smoker 04/24/25 02:27 Hx Tobacco Use No 04/24/25 02:27 Years Smoking Packs Smoked per Day Smoking Cessation Date was No - quit smoking greater 04/24/25 02:27 within the last 15 years than 15 years ago Hx Smoking Cessation Date 05/18/00 04/24/25 02:27 Hx Smoking Cessation No 04/24/25 02:27 Counseling Hematologic Medial History Hematologic Hx - head of history: Hematologic Medical Hx - administrative support manager Hx of Blood Transfusion Hx of Transfusion in last 3 Months Date of Last Transfusion (if within last 3 months) Ever experience any problems with transfusion(s)? Specify any problems Hx of Preganancy in last 3 Months Nurse Filling Out Transfusion & Questions: Date: Time: Patient unable to answer at Yes 04/24/25 02:27 this time (ie. confused, unrespo /Reproduction History /Reproductive History - head of history: /Reproductive Hx- head of history Hx Now Gestational Age (in weeks): EDC: Hx Hx Para Hx Section SAB Active Medications Active Medications: Current Medications Generic Name Dose Route Start Last Admin Trade Name Freq PRN Reason Stop Dose Admin Acetaminophen 650 mg 04/24/25 00:28 04/24/25 05:01 Acetaminophen 325 Mg Tablet PO 650 mg Q4H PRN PRN Administration Fever, pain 1-10 Al Hydroxide/Mg Hydroxide 30 ml 04/24/25 00:28 Mag Hydrox/Al Hydrox/Simeth 30 Ml Udc PO Q6H PRN PRN Gastric Burning Albuterol Sulfate 2.5 mg 04/24/25 00:28 Albuterol 2.5 Mg/3 Ml Vial.Neb. INHALATION Q2H PRN PRN Dyspnea, wheezing Allopurinol 300 mg 04/24/25 08:00 [facility] 300 [facility] Ator[facility] Calcium 10 mg 04/24/25 22:00 Atorvastatin Calcium 10 Mg Tablet PO QHS [facility] Donepezil HCl 10 mg 04/24/25 22:00 Donepezil Hcl 10 Mg Tablet PO QHS [facility] Doxazosin Mesylate 1 mg 04/24/25 22:00 Doxazosin 1 Mg Tablet PO QHS [facility] Protocol Glucagon 1 mg 04/24/25 00:28 Glucagon 1 Mg/Ml Syringe IM X1 PRN HYPOGLYCEMIA Protocol Guaifenesin 20 ml 04/24/25 00:28 Guaifenesin 10 Ml Udc (200mg/10ml) PO Q4H PRN PRN COUGH Hydralazine HCl 10 mg 04/24/25 00:28 Hydralazine 20 Mg/Ml Vial IV Q4H PRN PRN SBP > 160 Protocol Dextrose 250 mls @ 0 mls/hr 04/24/25 00:28 Dextrose 10%-Water IV .Q0M PRN HYPOGLYCEMIA Protocol As Directed Sodium Chloride 250 mls @ 15 mls/hr 04/24/25 00:39 IV .[id number] PRN Saline Flush Sodium Chloride 250 mls @ 15 mls/hr 04/24/25 00:39 IV .[id number] PRN Additional IVPB Infusion Insulin Human Lispro 0 unit 04/24/25 07:00 04/24/25 06:43 Insulin Lispro 100 Unit/Ml Insuln.Pen SC Not Given ACHS [facility] Protocol Losartan Potassium 50 mg 04/24/25 10:00 Losartan Potassium 50 Mg Tablet PO DAILY [facility] Protocol Melatonin 3 mg 04/24/25 00:28 Melatonin 3 Mg Tablet PO QHS PRN PRN INSOMNIA Memantine 10 mg 04/24/25 10:00 Memantine Hydrochloride 10 Mg Tablet PO BID [facility] Morphine Sulfate 2 - 4 mg 04/24/25 00:28 Morphine 4 Mg/Ml Syringe IV Q2H PRN PRN PAIN 4-10 Morphine Sulfate 2 - 4 mg 04/24/25 00:37 Morphine 2 Mg/Ml Syringe IV Q2H PRN PRN PAIN 4-10 Ondansetron HCl 4 mg 04/24/25 00:28 Ondansetron 4 Mg/2 Ml Vial IV Q8H PRN PRN NAUSEA/VOMITING Oxycodone HCl 2.5 - 5 mg 04/24/25 00:28 04/24/25 05:01 Oxycodone 5 Mg Tablet PO 5 mg Q4H PRN PRN Administration PAIN 4-10 Paroxetine HCl 10 mg 04/24/25 10:00 Paroxetine 10 Mg Tablet PO DAILY [facility] Prochlorperazine Edisylate 5 mg 04/24/25 00:28 Prochlorperazine 10 Mg/2 Ml Vial IV Q4H PRN PRN Breakthrough nausea/vomiting Senna/Docusate Sodium 2 tablet 04/24/25 10:00 Senna/Docusate Sodium 1 Tablet PO BID [facility] Sodium Chloride 10 - 40 ml 04/24/25 00:39 0.9% Saline Lock 10 Ml Syringe IV UD PRN SALINE FLUSH PFSH Medical History Anxiety and depression COVID-19 Former smoker Degenerative disc disease, cervical Benign prostate hyperplasia Left bundle branch block Mild cognitive impairment with memory loss Alzheimer's disease Hypertension DM2 (diabetes mellitus, type 2) HTN (hypertension) Gout Heart failure with reduced ejection fraction Hairy cell leukemia Hyperlipidemia Home Medications ?Medication ?Instructions ?Recorded ?Last Taken ?Type atorvastatin 10 mg tablet 10 mg PO QHS CHOLESTEROL 01/3104/23/25 History doxazosin 1 mg tablet 1 mg PO QHS prostate 6 04/23/25 History donepezil 5 mg tablet 10 mg PO QHS memory 11/28/17 04/23/25 History paroxetine HCl 10 mg tablet 10 mg PO DAILY anxiety 10/0504/23/25 History allopurinol 300 mg tablet 300 mg PO DAILY GOUT 8 04/23/25 History (Zyloprim) memantine 5 mg tablet 10 mg PO BID memory 05/26/21 04/22/25 History ibuprofen 200 mg capsule 200 mg PO Q4H PRN Pain 03/0504/22/25 History cholecalciferol (vitamin D3) 25 25 mcg PO DAILY ordere d 05/14/23 04/23/25 History mcg (1,000 unit) tablet losartan 50 mg tablet 50 mg PO DAILY BP 04/23/25 0 04/23/25 History Allergy/AdvReac Type Severity Reaction Status Date / Time gabapentin Allergy tremors Verified 04/23/25 20:24 metoprolol (From Toprol XL) Allergy PT UNSURE Verified 04/23/25 20:24 OF REACTION ramipril (From Altace) Allergy PT UNSURE Verified 04/23/25 20:24 OF REACTION Family History Mother Cancer Father Heart disease Hypertension Surgical History History of parathyroid surgery Hx of splenectomy History of appendectomy H/O total hip arthroplasty Social History household members: spouse Smoking Status: Former smoker alcohol intake: never substance use type: does not use Review of Systems (Anesthesia) ROS Narrative System reviewed and no additional complaints, except as documented. 04/24/25822 <Electronically signed by Jarret Sam MD > Date _ Jarret Laura Signature: Date CC: ~ Signed [facility] Work Phone: [phone] 117-272506-07-2025 Procedure note [facility] Medical Records Department [address] [place] [address] Operative Report 04/24/25 1055 MR#: [id number] Acct: [id number] Name: MICHAEL MULLINS Rep #:[id number] : 1940 85 From: Jose Talbert PCP: Dr. Baron Espinoza MD Status:ADM I N Location: [place] [address] Operative Report (Standard) Operative Information Date of Procedure: 04/24/25 Pre-Operative Diagnosis: Left intertrochanteric hip fracture Post-Operative Diagnosis: Left intertrochanteric hip fracture Surgery/Procedure Performed: Left hip cephalomedullary nail meteorological engineer: Yes Clean Room Technician: Elsa Blunt Tasks completed by nutrition assistant: Opening & closing, Implanting device, Retracting and Other (Fracture reduction and maintenance) Additional accounting administrative assistant?:No Type of Anesthesia: Spinal RN Documented Start/Stop Times: Operation Date: 04/24/25 11:00 Case Time Anesthesia Start 04/24/25 10:09 Into Room 04/24/25 10:09 Procedure Start 04/24/25 10:31 Procedure End 04/24/25 11:12 Anesthesia End 04/24/25 11:18 Out of Room 04/24/25 11:18 Procedure Start Time: 10:31 Procedure Stop Time: 11:12 Select all DRAINS/GRAFTS/IMPLANTS that apply: Prosthetic device Prosthetic device details: [employer] InterTAN nail long 11.5 mm x 38 cm 125 degree neck angle. 105 mm lag screw. 42.5 mm interlocking screw Special Medications: Ancef Estimated Blood Loss: 250 mL Fluids Replaced: 1200 mL crystalloid Specimen collected: No Description of surgery: Brief history operative indications: 85-year-old male with significant dementia fell sustaining a left intertrochanteric hip fracture. After extensive discussion with regards to natural history and procedure were discussed with the power of staff attorney including risk and benefits which include but are not limited to blood loss, PEs, DVTs, neurovascular damage, nonunions, malunions and screw cut out patient has elected to proceed with aleft hip cephalo-medullary nail. Procedure: On the date of the procedure the patient's L hip was marked in the preoperative area and patient was taken back to the operating room. Anesthetic was administered and patient was transferred to the table were all bony prominence identified well-padded and the ipsilateral arm was placed across the chest. Patient was then translated down to the perineal post and the operative leg was placed in the boot while the nonoperative leg was lowered and secured. The operative leg was placed in traction and internal rotation and live fluoroscopy was used to verify adequate reduction. The operative leg was then prepped in a sterile fashion with chlorhexidine while the surgeon scrubbed. Upon reentering the room the operative extremity was draped in the standard orthopedic fashion. Skin incision was marked and a timeout was called. Everyone agreed upon the side, the site, the procedure be performed, patient's identity, and antibiotics given. Skin incision was made and the position of theentry guidepin was verified using live fluoroscopy. Once we were satisfied withour position the pin was advanced in the soft tissue protector was placed over the pin. The entry reamer was then advanced into the proximal portion of the femur. A guidewire was placed down the intramedullary [place] fluoroscopy wasused to verify that the anterior cortex had not been breached distally as well as satisfactory distal positioning. We then used live fluoroscopy to verify thelength of the nail lat[place] [employer] InterTAN 38 cm by 11.5 mm 125 degree neck angle hip nail was selected. The 13 mm reamer was then passed. The nail was then attached to the carbon rod inserter and inserted into the intramedullary canal. The appropriate depth was verified and the skin incision for the lag screw was made. The lag screw guidepin was then placed under live fluoroscopy and when a satisfactory position was obtained the length of the screw was measured and the standard technique to drill for the lag screws was performed. The anti-rotation bar was used. At this time a 105 MM lag screw was selected with its corresponding compression screw. The lag screw was then passed and traction was left off the leg. The compression screw was then passed and the fracture was compressed. The final position of the lag screw was verified underfluoroscopy. Attention was then turned to the distal portion of the nail and a perfect circletechnique was used to locate the distal interlocking screw and a 42.5 mm distal interlocking screw was placed using this technique. Live fluoroscopy was used to verify the position of the interlocking screw and the final position of the hip components. Once we were satisfied with our positioning the wounds were copiously irrigated out with normal saline skin was closed with 2-0 Vicryl and gilda for final skin closure. A sterile dressing was placed with Xeroform. Patient was then awakened by anesthesia transferred from the fracture table backto their hospital bed and transferred to the PACU for recovery. Postoperative plan: Patient will be weight-bear as tolerated. Xarelto 10 mg daily for 2 weeks followed by aspirin 81 mgp.o. twice daily for total of 4 weeks for DVT prophylaxis with thigh-high stockings. Follow up in the office in 2 weeks. Surgical Findings: Stable will reduce fracture. Patient did have a trance trochanteric fracture pattern. The setscrew was left in a locked position creating a fixed angle device. Complications Complications: No Admit VTE Documentation VTE Present on Admission: No VTE Mechan Device Prophylaxis: SCD's and Thigh High DEANGELO Hose VTE Pharm Prophylaxis ordered?: Yes 04/24/25 1124 Cosigner Signature (if applicable): CC: Dr. Paty Morgan MD; Dr. Marcelle Klein MD; Dr. Jose Miranda MD; Dr. Baron Espinoza MD~ Signed [facility]06-07-2025 Consult note [facility] Medical Records Department [address] [place] [address] Consultation - Orthopedics 04/24/25 0934 MR#: [id number] Acct: [id number] Name: MICHAEL MULLINS Rep #:[id number] : 1940 85 From: Jose Talbert PCP: Dr. Baron Espinoza MD Status:ADM I N Location: [place] [address] HPI Consult Data Date of Consult: 04/24/25 HPI Narrative Reason for Consultation: Left hip pain HPI Narrative: MICHAEL MULLINS, is a 85 M who presents today with left hip pain. Patient has significant dementia and is largely nonverbal. His is at bedside and givesthe majority of his history. She notes theywere leaving the house yesterday inorder to go out to eat and patient had a mechanical fall. Patient was using a cane at that time. He has previously been instructed to use a walker more consistently. He walks with a kyphotic posture and gait. Patient does use a walker inside the home on a consistent basis and is supposed to use it outside the home. Patient's is unable to get him up and he was brought to the emergency department by ambulance. He was found to have a left intertrochanteric hip fracture admitted to the hospital overnight. There was some questions about his ejection fractionand echocardiogram was performed thismorning showing is 55%. Patient's history is limited secondaryto inability to give significant information due to his dementia. [facility] Medical History Anxiety and depression COVID-19 Former smoker Degenerative disc disease, cervical Benign prostate hyperplasia Left bundle branch block Mild cognitive impairment with memory loss Alzheimer's disease Hypertension DM2 (diabetes mellitus, type 2) HTN (hypertension) Gout Heart failure with reduced ejection fraction Hairy cell leukemia Hyperlipidemia Home Medications ?Medication ?Instructions ?Recorded ?Last Taken ?Type atorvastatin 10 mg tablet 10 mg PO QHS CHOLESTEROL 01/3104/23/25 History doxazosin 1 mg tablet 1 mg PO QHS prostate 6 04/23/25 History donepezil 5 mg tablet 10 mg PO QHS memory 11/28/17 04/23/25 History paroxetine HCl 10 mg tablet 10 mg PO DAILY anxiety 10/0504/23/25 History allopurinol 300 mg tablet 300 mg PO DAILY GOUT 8 04/23/25 History (Zyloprim) memantine 5 mg tablet 10 mg PO BID memory 05/26/21 04/22/25 History ibuprofen 200 mg capsule 200 mg PO Q4H PRN Pain 03/0504/22/25 History cholecalciferol (vitamin D3) 25 25 mcg PO DAILY ordere d 05/14/23 04/23/25 History mcg (1,000 unit) tablet losartan 50 mg tablet 50 mg PO DAILY BP 04/23/25 0 04/23/25 History Allergy/AdvReac Type Severity Reaction Status Date / Time gabapentin Allergy tremors Verified 04/23/25 20:24 metoprolol (From Toprol XL) Allergy PT UNSURE Verified 04/23/25 20:24 OF REACTION ramipril (From Altace) Allergy PT UNSURE Verified 04/23/25 20:24 OF REACTION Family History Mother Cancer Father Heart disease Hypertension Surgical History History of parathyroid surgery Hx of splenectomy History of appendectomy H/O total hip arthroplasty Social History household members: spouse Smoking Status: Former smoker alcohol intake: never substance use type: does not use ROS ROS Narrative Significant dementia. 14 point review of systems also was mentioned in the HPI is negative or noncontributory today. Vital Signs Vital Signs Vital Signs: 04/23/25 20:24 04/23/25 20:32 04/23/25 22:21 Temperature 97.9 F Temperature Source Oral Pulse Rate 58 L Respiratory Rate 16 Respiratory Effort Normal Non-Labored Respiratory Depth Respiratory Pattern Blood Pressure 159/94 H 94/72 Blood Pressure Mean 115 79 Blood Pressure Source Blood Pressure Position Blood Pressure Location Pulse Ox 95 92 Oxygen Delivery Method Room Air Room Air Oxygen Flow Rate (L/min) 04/23/25 22:33 04/23/25 23:39 04/23/25 23:39 Temperature 97.9 F Temperature Source Pulse Rate 58 L 54 L Respiratory Rate 16 14 Respiratory Effort Respiratory Depth Respiratory Pattern Blood Pressure 102/61 75/41 L Blood Pressure Mean 74 52 Blood Pressure Source Blood Pressure Position Blood Pressure Location Pulse Ox 91 86 97 Oxygen Delivery Method Room Air Nasal Cannula Oxygen Flow Rate (L/min) 3 04/23/25 23:46 04/23/25 23:48 04/23/25 23:50 Temperature Temperature Source Pulse Rate 54 L 53 L 51 L Respiratory Rate 16 14 Respiratory Effort Respiratory Depth Respiratory Pattern Blood Pressure 80/43 L 92/35 L 97/38 L Blood Pressure Mean 55 54 57 Blood Pressure Source Blood Pressure Position Blood Pressure Location Pulse Ox 96 96 Oxygen Delivery Method Nasal Cannula Nasal Cannula Oxygen Flow Rate (L/min) 2 2 04/23/25 23:59 04/24/25 00:10 04/24/25 01:00 Temperature 97 F L Temperature Source Oral Pulse Rate 50 L 54 L 56 L Respiratory Rate 16 16 Respiratory Effort Respiratory Depth Respiratory Pattern Blood Pressure 104/35 L 113/42 L 125/64 H Blood Pressure Mean 58 65 84 Blood Pressure Source Monitor Blood Pressure Position Semi-Fowlers Blood Pressure Location Left Arm Pulse Ox 97 99 Oxygen Delivery Method Nasal Cannula Nasal Cannula Oxygen Flow Rate (L/min) 2 2 04/24/25 01:21 04/24/25 05:00 04/24/25 05:07 Temperature 97.5 F L Temperature Source Temporal Pulse Rate 64 Respiratory Rate 16 Respiratory Effort Normal Non-Labored Respiratory Depth Normal Respiratory Pattern Normal Blood Pressure 103/55 L Blood Pressure Mean 71 Blood Pressure Source Monitor Blood Pressure Position Semi-Fowlers Blood Pressure Location Left Arm Pulse Ox 89 95 Oxygen Delivery Method Nasal Cannula Room Air Nasal Cannula Oxygen Flow Rate (L/min) 2 2 04/24/25 08:05 04/24/25 08:23 04/24/25 09:12 Temperature 97.5 F L 97.6 F L Temperature Source Temporal Pulse Rate 64 53 L Respiratory Rate 16 16 Respiratory Effort Respiratory Depth Respiratory Pattern Blood Pressure 103/55 L 99/51 L Blood Pressure Mean 67 Blood Pressure Source Monitor Blood Pressure Position Semi-Fowlers Blood Pressure Location Right Arm Pulse Ox 94 94 98 Oxygen Delivery Method Nasal Cannula Room Air Oxygen Flow Rate (L/min) 2 2 Weight Weight: 158 lb 15.253 oz Body Mass Index (BMI) 24.9 Physical Exam Const alert Constitutional Narrative: Nonverbal due to dementia HEENT normocephalic Eyes PERRL Neck no JVD Resp normal respiratory effort Cardio Cardio Narrative: Regular pulse GI non-distended Extremity Extremity Narrative: Left lower extremity: Skin clean, dry, and intact. Limb is shortened and externally rotated Motor is intact dorsiflexion, EHL and plantar flexion. Sensation is intact to light touch saphenous, hortencia,l superficial peroneal, deep peroneal and tibialdistributions. Calves are soft and supple. Skin no wounds Neuro moves all extremities Speech: speech abnormal Details: Positive for other (Nonverbal due to dementia) Psych Memory / Cognition: cognition impaired Medical Records Data Attestation: I reviewed the patient's medical records Lab / Micro Data Attestation: I reviewed the patient's lab results. 04/24/25 05:00 04/24/25 05:00 Labs: Laboratory Results - last 24 hr 04/23/25 20:25: WBC 7.8, RBC 4.02 L, Hgb 13.1, Hct 39.5 L, MCV 98.3 H, MCH 32.6 H, MCHC 33.2, RDW Std Deviation 53.9 H, RDW Coeff of Eduarda 15.1 H, Plt Count 187, MPV 11.6, Immature Gran % (Auto) 0.500,Neut % (Auto) 52.0, Lymph % (Auto) 37.3,Parker % (Auto) 7.9, Eos % (Auto) 1.9, Baso % (Auto) 0.4, Absolute Neuts (auto) 4.1, Absolute Lymphs (auto) 2.91, Nucleated RBC % 0.3, Sodium 140, Potassium 5.3H, Chloride 107, Carbon Dioxide 23.5, Anion Gap 10, BUN 38 H, Creatinine 1.81 H,Estim Creat Clear Calc 28.91 L, Est GFR (MDRD) Non-Af 37 L, BUN/Creatinine Ratio21.2 H, Glucose 86, Calcium 8.9, Magnesium 2.3 H, NT pro BNP II 1237 04/23/25 21:45: PT 13.9, INR 1.1 04/23/25 21:46: Blood Type O POSITIVE, Antibody Screen NEGATIVE 04/24/25 05:00: WBC 13.9 H, RBC 3.29 L, Hgb 10.7 L, Hct 32.8 L, MCV 99.7 H, MCH 32.5 H, MCHC 32.6, RDW Std Deviation 57.1 H, RDW Coeff of Eduarda 15.5 H, Plt Count 146 L, MPV 10.8, Immature Gran % (Auto)0.400, Neut % (Auto) 79.5 H, Lymph % (Auto) 12.7 L, Parker % (Auto) 7.3, Eos % (Auto) 0.0, Baso % (Auto) 0.1, Absolute Neuts (auto) 11.0 H, Absolute Lymphs (auto) 1.76, Nucleated RBC % 0.1, Sodium 140,Potassium 5.5 H, Chloride 111 H, Carbon Dioxide 19.8 L, Anion Gap 9, BUN 42H, Creatinine 2.15 H, Estim Creat Clear Calc 23.49 L, Est GFR (MDRD) Non-Af 30 L, BUN/Creatinine Ratio 19.5, Glucose 119 H, Hemoglobin A1c 5.8 H, Calcium 8.0, Total Bilirubin 0.53, AST 32, ALT 20, Alkaline Phosphatase 98, Total Protein 5.3L, Albumin 3.3 L, Globulin 2.0 L, Albumin/Globulin Ratio 1.7 04/24/25 06:38: POC Glucose 108 H Imaging Radiology Impression Hip/Pelvis X-Ray 04/23/25 21:05 IMPRESSION: Acute comminuted intertrochanteric fracture of the left femur with mild shortening and varus angulation. No additional fractures or dislocation. Reading Location: [facility] Independent review shows left displaced intertrochanteric hip fracture. Chest X-Ray 04/23/25 22:45 IMPRESSION: 1. Subtle patchy opacity in the right mid lung zone could represent chronic changes of the lungs, with infection also possible. Correlate with symptoms. 2. Linear opacity in the left mid lung zone likely represents atelectasis or scarring. Reading Location: [facility] Assessment & Plan Assessment/Plan (1) Intertrochanteric fracture of left femur: PLAN: Patient is nonverbal. Due to his dementia minimal communication. Primarycommunication was done with his who is his power of staff attorney. Natural history of the disease process and treatment options were discussed with the patient's family. Did recommend cephalomedullary nail of the left hip. Nonoperative treatment was also discussed but not recommended. Risk and benefits of the procedure were discussed with patient including but not limited to blood loss, DVTs, PEs, nervous damage, infection, general risk of anesthesia including loss of life. We also discussed nonunion, malunion, hardware failure and screw cut out. Patient's /power of staff attorney demonstrates understanding of theserisks and wishes to move forward. Will order antibiotics on-call to the operating room. Patient is NPO. Patient has been cleared by medicine for surgery. 04/24/25 0942 Cosigner Signature (if applicable): CC: Dr. Baron Espinoza MD~ Signed [facility]06-07-2025 Progress note [facility] Medical Records Department [address] [place] [address] Progress Note - Hospitalist 04/24/25919 MR#: [id number] Acct: [id number] Name: MICHAEL MULLINS Rep #:[id number] : 1940 85 From: Vern Rao DO PCP: Dr. Baron Espinoza MD Status:ADM I N [id number] Reason for Visit Reason for Visit: Diagnoses Fracture of unspecified part of neck of left femur, initial encounter for closedfracture (04/23/25) Unspecified fall, initial encounter (04/23/25) Subjective Subjective Patient was seen and examined today, is in the room and I obtained some medical information from her due to the patient's dementia. Patient was admitted last night with a intertrochanteric fracture of the left hip, the plan is to do an intramedullary nail for repair. I talked with orthopedic surgery aswell as anesthesia. Patient appears in no distress, he is on minimal oxygen at 2 L, echocardiogram is being performed at the time my examination. Patient's states that he has a history of leukemia but is under no treatment for it-she statesit is in remission. Patient has no history of coronary disease, there is a history of cardiomyopathy not attributed to coronary disease-patient's states the last echocardiogram showed an EF of approximately 30%. Patient has a history of hypertension takes losartan and hyperlipidemia and he takes Lipitor. Patient has a history of peripheral neuropathy but according to the patient's med list, he does not take any medicine for this. Patient is on Paxil for chronic depression, otherwise I feelh e is on minimal medications. Patient has no history of lung disease and does not wear supplemental oxygen at home. Patient underwent repair of his right hipyears ago due to a fall with a fracture. At the time my examination, patient is alert in no distress, he does try to talkbut what he says does not make any sense. Objective Data Objective Data Vital Signs: Vital Signs Temp Pulse Resp BP Pulse Ox O2 Del Method O2 Flow Rate 97.5 F L 64 16 103/55 L 94 Nasal Cannula 2 04/24/25 08:23 04/24/25 08:23 04/24/25 08:23 04/24/25 08:23 04/24/25 08:23 04/24/25 08:05 04/24/25 08:23 Oxygen Flow Rate (L/min) 2 Oxygen Delivery Method Nasal Cannula Weight: 72.1 kg Body Mass Index (BMI) 24.9 Intake & Output: Intake and Output for Last 24 Hours 04/22/25 04/23/25 04/24/25 23:59 23:59 23:59 Intake Total 0 / 0 1000 / 1000 Output Total 125 / 125 Balance 0 / 0 875 / 875 Lab / Micro Data 04/24/25 05:00 04/24/25 05:00 Labs: Laboratory Results - last 24 hr 04/23/25 20:25: WBC 7.8, RBC 4.02 L, Hgb 13.1, Hct 39.5 L, MCV 98.3 H, MCH 32.6 H, MCHC 33.2, RDW Std Deviation 53.9 H, RDW Coeff of Eduarda 15.1 H, Plt Count 187, MPV 11.6, Immature Gran % (Auto) 0.500,Neut % (Auto) 52.0, Lymph % (Auto) 37.3,Parker % (Auto) 7.9, Eos % (Auto) 1.9, Baso % (Auto) 0.4, Absolute Neuts (auto) 4.1, Absolute Lymphs (auto) 2.91, Nucleated RBC % 0.3, Sodium 140, Potassium 5.3H, Chloride 107, Carbon Dioxide 23.5, Anion Gap 10, BUN 38 H, Creatinine 1.81 H,Estim Creat Clear Calc 28.91 L, Est GFR (MDRD) Non-Af 37 L, BUN/Creatinine Ratio21.2 H, Glucose 86, Calcium 8.9, Magnesium 2.3 H, NT pro BNP II 1237 04/23/25 21:45: PT 13.9, INR 1.1 04/23/25 21:46: Blood Type O POSITIVE, Antibody Screen NEGATIVE 04/24/25 05:00: WBC 13.9 H, RBC 3.29 L, Hgb 10.7 L, Hct 32.8 L, MCV 99.7 H, MCH 32.5 H, MCHC 32.6, RDW Std Deviation 57.1 H, RDW Coeff of Eduarda 15.5 H, Plt Count 146 L, MPV 10.8, Immature Gran % (Auto)0.400, Neut % (Auto) 79.5 H, Lymph % (Auto) 12.7 L, Parker % (Auto) 7.3, Eos % (Auto) 0.0, Baso % (Auto) 0.1, Absolute Neuts (auto) 11.0 H, Absolute Lymphs (auto) 1.76, Nucleated RBC % 0.1, Sodium 140,Potassium 5.5 H, Chloride 111 H, Carbon Dioxide 19.8 L, Anion Gap 9, BUN 42H, Creatinine 2.15 H, Estim Creat Clear Calc 23.49 L, Est GFR (MDRD) Non-Af 30 L, BUN/Creatinine Ratio 19.5, Glucose 119 H, Hemoglobin A1c 5.8 H, Calcium 8.0, Total Bilirubin 0.53, AST 32, ALT 20, Alkaline Phosphatase 98, Total Protein 5.3L, Albumin 3.3 L, Globulin 2.0 L, Albumin/Globulin Ratio 1.7 04/24/25 06:38: POC Glucose 108 H Radiography Diagnostic Testing: Radiology Impression Hip/Pelvis X-Ray 04/23/25 21:05 IMPRESSION: Acute comminuted intertrochanteric fracture of the left femur with mild shortening and varus angulation. No additional fractures or dislocation. Reading Location: [facility] Chest X-Ray 04/23/25 22:45 IMPRESSION: 1. Subtle patchy opacity in the right mid lung zone could represent chronic changes of the lungs, with infection also possible. Correlate with symptoms. 2. Linear opacity in the left mid lung zone likely represents atelectasis or scarring. Reading Location: [id number] Physical Exam Const alert, no apparent distress, average body habitus and healthy appearing General Appearance: cooperative, well kempt and well developed Orientation / Consciousness: awake and oriented to person HEENT normocephalic, head/scalp atraumatic and moist oral mucous membranes Head and Scalp: normocephalic Eyes PERRL, EOMs intact bilaterally and conjunctivae normal Neck supple, no JVD, thyroid normal and no carotid bruits General: trachea midline Resp normal respiratory effort, no retractions, no use of accessory muscles and clearto auscultation bilaterally Auscultation: Negative for rales, rhonchi or wheezes Cardio regular rate, regular rhythm, S1 normal heart sound, S2 normal heart sound, no murmurs, no rub and no gallops GI normal to inspection, nondistended, normoactive bowel sounds, soft to palpation,non-tender and non-distended Extremity no clubbing, cyanosis or edema Skin no rashes or lesions noted General Skin Exam: no breakdown Neuro CN's II-XII intact bilaterally, no focal motor deficits and no sensory deficits noted Neuro Narrative: Patient is alert, he is confused, he does not appear agitated Sensorium / Orientation: awake, alert and oriented to person Speech: speech normal Psych Psych Narrative: Patient exhibits cognitive impairment, he is alert and does not carry on a conversation but says a few words which do not make sense. Assessment & Plan Assessment/Plan (1) Closed fracture of left hip: PLAN: Plan 1. Intertrochanteric fracture of the left hip secondary to osteoporosis-I talked extensively with orthopedic surgery this morning, I also talked with anesthesia and cardiology. I feel the patient is stable for surgery at this time is moderate risk due to his age, he has no history of coronary disease or lung disease and he is not diabetic. #2 essential hypertension-patient is on losartan, his blood pressure is running low today and I have instructed nursing to start some fluids on the patient. Anesthesia is aware of this. 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 Patient's white blood cell count is slightly high #4 hyperkalemia-patient's potassium this morning was 5.5, I do not feel this is significant, I do not feel it needs to be treated. #5 chronic kidney disease stage IV-patient's creatinine this morning was 2.15, Ifeel he is a littlebit "dry" and will need some fluids. #6 xjpqsqva-cilrkidt-bnwwluslomr care, management, recovery, and prognosis #7 slightly low platelet count, I do not feel this will affect the patient for surgery #8 acute anemia-patient's hemoglobin is slightly lower than it was at the time of admission, I attribute this to his left hip fracture. #9 cardiomyopathy by history-patient's echocardiogram today appeared to show an ejection fraction of 50 to 55% and no significant valvular heart disease, this will be read out this afternoon when cardiology is here for rounds. I discussed this case with cardiology and I do not feel they need to see the patient, they were okay with this and I have canceled the consult. Total clinical time spent by myself addressing the patient's medical issues, reviewing all of his data, and collaborating with the patient's care team: 55 minutes Charges/Coding Visit Charges Inpatient E&M: 46005 Subs Hosp L3 04/24/25 0932 Cosigner Signature (if applicable): CC: ~ Signed [facility]06-07-2025 Consult note [facility] Medical Records Department [address] [place] [address] Pre-Anesthesia Evaluation 04/24/25821 MR#: [id number] Acct: [id number] Name: MICHAEL MULLINS Rep #:[id number] : 1940 85 From: Jarret Sam MD PCP: Dr. Baron Espinoza MD Status:ADM I N Y Race: C Location: [place] [address] Jarret Sam MD on 04/24/25 at 0926 Addendum Echocardiogram just obtained by hospitalist. Shows an EF of 55% with normal wall motion. Patient isstill in left bundle branch block on EKG. Will attemptspinal due to patient's dementia and atelectasis in the lungs. 04/24/25925 > Date _ Jarret Sam MD cc: ~* Signed ASA Classification* ASA Classification ASA Classification: 3 and E Assessment & Plan Anesthesia* Anesthesia Assessment Anesthesia Assessment: Discussed sedation and/or anesthesia options, risks, benefits, and alternatives with patient/parents/legal guardian/POA. Questions invited. The patient/parents/legal guardian/POA seems to understand and agrees to proceedwith anesthesia plan. Reviewed the physical assessment, medical history, allergy history and patient home medications list prior to surgery/procedure/anesthetic and documented any changes. Performed airway and anesthesia risk assessments. Anesthesia Type Anesthesia Type: General Anesthesia Focused Assessment* Temperature: 97.5 F Pulse Rate: 64 Blood Pressure: 103/55 Respiratory Rate: 16 Pulse Ox: 94 Oxygen Flow Rate (L/min): 2 Airway Assessment Mouth opens: >3 cm Mallampati Score: II Labs Anesthesia Preop lab: CBC WBC 13.9 K/mm3 (4.4-11.0) H 04/24/25 05:00 5 RBC 3.29 M/mm3 (4.6-6.2) L 04/24/25 05:00 04/24/25 Hgb 10.7 g/dL (13.0-16.5) L 04/24/25 05:00 5 Hct 32.8 % (40-54) L 04/24/25 05:00 04/24/25 Plt Count 146 K/mm3 (150-450) L 04/24/25 05:00 04/24/25 CHEMISTRY Potassium 5.3 mmol/L (3.3-5.1) H 04/23/25 20:25 04/23/25 Sodium 140 mmol/L (133-145) 04/23/25 20:25 04/23/25 Magnesium 2.3 mg/dL (1.5-2.2) H 04/23/25 20:25 04/23/25 Phosphorus 2.5 mg/dL (2.5-4.9) 03/06/23 00:40 03/06/23 BUN 38 mg/dL (4-19) H 04/23/25 20:25 04/23/25 Creatinine 1.81 mg/dL (0.70-1.20) H 04/23/25 20:25 Glucose 86 mg/dL (70-99) 04/23/25 20:25 04/23/25 POC Glucose 108 mg/dL (74-106) H 04/24/25 06:38 04/24/25 TSH 0.26 uIU/mL (0.358-3.74) L 03/06/23 06:05 02/16 08/10 COAG PT 13.9 SECONDS (11.7-14.9) 04/23/25 21:45 Pre-Assessment Diagnosis/Proposed Procedure Planned Operative Procedure(s): GAMMA NAIL LEFT HIP FX Anesthesia History Anesthesia History - head of history: Anesthesia History - head of history Hx Hospitalization Yes: currently hospitalized 08/19/18 19:25 Any Problems With Anesthesia unknown 04/24/25 02:34 Cholinesterase deficiency No 04/24/25 02:34 You/Your Family Experience unknown 04/24/25 02:34 fever (hyperthermia) with Relationship Recent Exposure to Contagious No 04/24/25 02:34 Disease Does patient have nerve No 04/24/25 02:34 stimulator Patient instructed to have No 04/24/25 02:34 device shut off --Does patient have Pacemaker or ICD? When Was Last Pacemaker Check QUESTION #4 FULL TEXT: You/Your Family Experience fever (hyperthermia) with Anesthesia Last Oral Intake Last Oral intake: Last Oral Intake NPO since Meds taken in AM with sips of water? Meds patient instructed to take am of surgery PONV PONV - head of history: PONV - head of history Female HX of Motion Sickness HX of N/V After Surgery Non-Smoker Duration of Surgery greater than 60 minutes Number of Risk Factors PONV Score Height & Weight Height & Weight: Anesthesia: Height & Weight Height 5 ft 6.93 in 04/24/25 01:32 Weight: 72.1 kg 04/24/25 05:45 Body Mass Index (BMI) 24.9 04/24/25 05:45 Respiratory Assessment Respiratory Assessment - head of history: Respiratory Tract Infection Hx - head of history Hx Respiratory Tract Infection No 04/24/25 02:34 STOP Sleep Apnea STOP Sleep Apnea - head of history: STOP Sleep Apnea - head of history Hx Hypertension Yes 04/24/25 02:27 Hx Sleep Apnea No 04/24/25 02:27 CPAP No 03/06/23 01:27 BIPAP No 03/06/23 01:27 Do you snore loudly (louder No 04/24/25 02:27 than talking or can be heard Do you often feel tired/ No 04/24/25 02:27 fatigued/ sleepy during daytime? Has anyone observed you stop No 04/24/25 02:27 breathing during sleep? STOP Results Negative 04/24/25 02:27 QUESTION #5 FULL TEXT : Do you snore loudly (louder than talking or can be heard through closeddoors)? Tobacco Use History Tobacco Use History - head of history: Tobacco Use History - head of history Tobacco Use Smoking Status Former smoker 04/24/25 02:27 Hx Tobacco Use No 04/24/25 02:27 Years Smoking Packs Smoked per Day Smoking Cessation Date was No - quit smoking greater 04/24/25 02:27 within the last 15 years than 15 years ago Hx Smoking Cessation Date 05/18/00 04/24/25 02:27 Hx Smoking Cessation No 04/24/25 02:27 Counseling Hematologic Medial History Hematologic Hx - head of history: Hematologic Medical Hx - administrative support manager Hx of Blood Transfusion Hx of Transfusion in last 3 Months Date of Last Transfusion (if within last 3 months) Ever experience any problems with transfusion(s)? Specify any problems Hx of Preganancy in last 3 Months Nurse Filling Out Transfusion & Questions: Date: Time: Patient unable to answer at Yes 04/24/25 02:27 this time (ie. confused, unrespo /Reproduction History /Reproductive History - head of history: /Reproductive Hx- head of history Hx Now Gestational Age (in weeks): EDC: Hx Hx Para Hx Section SAB Active Medications Active Medications: Current Medications Generic Name Dose Route Start Last Admin Trade Name Freq PRN Reason Stop Dose Admin Acetaminophen 650 mg 04/24/25 00:28 04/24/25 05:01 Acetaminophen 325 Mg Tablet PO 650 mg Q4H PRN PRN Administration Fever, pain 1-10/10 Al Hydroxide/Mg Hydroxide 30 ml 04/24/25 00:28 Mag Hydrox/Al Hydrox/Simeth 30 Ml Udc PO Q6H PRN PRN Gastric Burning Albuterol Sulfate 2.5 mg 04/24/25 00:28 Albuterol 2.5 Mg/3 Ml Vial.Neb. INHALATION Q2H PRN PRN Dyspnea, wheezing Allopurinol 300 mg 04/24/25 08:00 Allopurinol 300 Mg Tablet PO DAILYCM RACHEL Atorvastatin Calcium 10 mg 04/24/25 22:00 Atorvastatin Calcium 10 Mg Tablet PO QHS RACHEL Donepezil HCl 10 mg 04/24/25 22:00 Donepezil Hcl 10 Mg Tablet PO QHS RACHEL Doxazosin Mesylate 1 mg 04/24/25 22:00 Doxazosin 1 Mg Tablet PO QHS RACHEL Protocol Glucagon 1 mg 04/24/25 00:28 Glucagon 1 Mg/Ml Syringe IM X1 PRN HYPOGLYCEMIA Protocol Guaifenesin 20 ml 04/24/25 00:28 Guaifenesin 10 Ml Udc (200mg/10ml) PO Q4H PRN PRN COUGH Hydralazine HCl 10 mg 04/24/25 00:28 Hydralazine 20 Mg/Ml Vial IV Q4H PRN PRN SBP > 160 Protocol Dextrose 250 mls @ 0 mls/hr 04/24/25 00:28 Dextrose 10%-Water IV .Q0M PRN HYPOGLYCEMIA Protocol As Directed Sodium Chloride 250 mls @ 15 mls/hr 04/24/25 00:39 IV .[id number] PRN Saline Flush Sodium Chloride 250 mls @ 15 mls/hr 04/24/25 00:39 IV .[id number] PRN Additional IVPB Infusion Insulin Human Lispro 0 unit 04/24/25 07:00 04/24/25 06:43 Insulin Lispro 100 Unit/Ml Insuln.Pen SC Not Given ACHS [facility] Protocol Losartan Potassium 50 mg 04/24/25 10:00 Losartan Potassium 50 Mg Tablet PO DAILY [facility] Protocol Melatonin 3 mg 04/24/25 00:28 Melatonin 3 Mg Tablet PO QHS PRN PRN INSOMNIA Memantine 10 mg 04/24/25 10:00 Memantine Hydrochloride 10 Mg Tablet PO BID [facility] Morphine Sulfate 2 - 4 mg 04/24/25 00:28 Morphine 4 Mg/Ml Syringe IV Q2H PRN PRN PAIN 4-10 Morphine Sulfate 2 - 4 mg 04/24/25 00:37 Morphine 2 Mg/Ml Syringe IV Q2H PRN PRN PAIN 4-10 Ondansetron HCl 4 mg 04/24/25 00:28 Ondansetron 4 Mg/2 Ml Vial IV Q8H PRN PRN NAUSEA/VOMITING Oxycodone HCl 2.5 - 5 mg 04/24/25 00:28 04/24/25 05:01 Oxycodone 5 Mg Tablet PO 5 mg Q4H PRN PRN Administration PAIN 4-10 Paroxetine HCl 10 mg 04/24/25 10:00 Paroxetine 10 Mg Tablet PO DAILY [facility] Prochlorperazine Edisylate 5 mg 04/24/25 00:28 Prochlorperazine 10 Mg/2 Ml Vial IV Q4H PRN PRN Breakthrough nausea/vomiting Senna/Docusate Sodium 2 tablet 04/24/25 10:00 Senna/Docusate Sodium 1 Tablet PO BID RACHEL Sodium Chloride 10 - 40 ml 04/24/25 00:39 0.9% Saline Lock 10 Ml Syringe IV UD PRN SALINE FLUSH PFSH Medical History Anxiety and depression COVID-19 Former smoker Degenerative disc disease, cervical Benign prostate hyperplasia Left bundle branch block Mild cognitive impairment with memory loss Alzheimer's disease Hypertension DM2 (diabetes mellitus, type 2) HTN (hypertension) Gout Heart failure with reduced ejection fraction Hairy cell leukemia Hyperlipidemia Home Medications ?Medication ?Instructions ?Recorded ?Last Taken ?Type atorvastatin 10 mg tablet 10 mg PO QHS CHOLESTEROL 01/3104/23/25 History doxazosin 1 mg tablet 1 mg PO QHS prostate 6 04/23/25 History donepezil 5 mg tablet 10 mg PO QHS memory 11/28/17 04/23/25 History paroxetine HCl 10 mg tablet 10 mg PO DAILY anxiety 10/0504/23/25 History allopurinol 300 mg tablet 300 mg PO DAILY GOUT 8 04/23/25 History (Zyloprim) memantine 5 mg tablet 10 mg PO BID memory 05/26/21 04/22/25 History ibuprofen 200 mg capsule 200 mg PO Q4H PRN Pain 03/0504/22/25 History cholecalciferol (vitamin D3) 25 25 mcg PO DAILY ordere d 05/14/23 04/23/25 History mcg (1,000 unit) tablet losartan 50 mg tablet 50 mg PO DAILY BP 04/23/25 0 04/23/25 History Allergy/AdvReac Type Severity Reaction Status Date / Time gabapentin Allergy tremors Verified 04/23/25 20:24 metoprolol (From Toprol XL) Allergy PT UNSURE Verified 04/23/25 20:24 OF REACTION ramipril (From Altace) Allergy PT UNSURE Verified 04/23/25 20:24 OF REACTION Family History Mother Cancer Father Heart disease Hypertension Surgical History History of parathyroid surgery Hx of splenectomy History of appendectomy H/O total hip arthroplasty Social History household members: spouse Smoking Status: Former smoker alcohol intake: never substance use type: does not use Review of Systems (Anesthesia) ROS Narrative System reviewed and no additional complaints, except as documented. 04/24/25 0823 > Date _ Jarret Sam MD Cosigner Signature: Date CC: ~ Signed [facility]06-07-2025 History and physical note Author Paty Morgan [facility] Note Date/Time April 24, 2025 1:30a m [facility] Medical Records Department [address] [place] [id number] H&P Exam - Hospitalist 04/23/252155 MR#: [id number] Acct: [id number] Name: TERENCEMICHAEL Gena Rep #:[id number] : 1940 85 From: Paty Morgan MD PCP: Dr. Baron Espinoza MD Status:ADM I N Location: [place] [address] HPI - General General Date of Admission: 04/23/25 Date of Service: 04/23/25 Chief Complaint: Fall, L hip pain. HPI Narrative The patient is an 85 y/o M w/ PMHx: Alzheimer's disease with mild cognitive impairment with unclear behavioral disturbance history, Hairy Cell Leukemia following w/ Dr. Andrade Dx 1982, HFrEF (EF 35%, prior was following w/ [employer] Dr. Wells, s/p cath 2004), CKD stage III unclear subtype per GFR trending, HTH, HLD Gout, chart reported history diabetes mellitus type II, BPH with obstructive pathology, Chronic anemia/iron deficiency anemia anxiety and Depression who presents to the [facility] ED on 04/23/25 with history of walking with hiswife on the sidewalk specifically on the outside toward the curb on the way to getting lunch unfortunately baseline walking over hunched with a cane when his foot folded over the curb and he fell against a vehicle then landing on the ground onto his left hip and leg and eventually falling onto the sidewalk with no head trauma or loss of consciousness but significant onset immediate intractable left hip and leg pain 10 out of 10 in severity, severe sharp with obvious deformity and external rotation prompting ED evaluation. Workup in the ED included T97.9, heart rate 58, BP 159/94, respiratory rate 16, 95% on room air, CBC with WBC 7.8, hemoglobin 13.1, platelet 187 without marked shift, unremarkable coags, BMP with potassium 5.3, BUN/Frankie 38/1.81, GFR 37, chest x-ray with subtle patchy opacity right midlung zone possibly chronic changes, linear opacity left mid lung zone likely atelectasis or scarring, plain film of the left hip and pelvis with an acute comminuted intertrochanteric fracture of the left femur with mild shortening and varus angulation, pending EKG upon evaluation of patient. ED physician did discuss patient with Dr. Miranda orthopedic surgeon with surgeon preference for OR 04/24/2025. [facility] Medical History (Updated 04/24/25 @ 01:[address] Paty Morgan MD) Anxiety and depression COVID-19 Former smoker Degenerative disc disease, cervical Benign prostate hyperplasia Left bundle branch block Mild cognitive impairment with memory loss Alzheimer's disease Hypertension DM2 (diabetes mellitus, type 2) HTN (hypertension) Gout Heart failure with reduced ejection fraction Hairy cell leukemia Hyperlipidemia Home Medications ?Medication ?Instructions ?Recorded ?Last Taken ?Type atorvastatin 10 mg tablet 10 mg PO QHS CHOLESTEROL 01/3104/23/25 History doxazosin 1 mg tablet 1 mg PO QHS prostate 6 04/23/25 History donepezil 5 mg tablet 10 mg PO QHS memory 11/28/17 04/23/25 History paroxetine HCl 10 mg tablet 10 mg PO DAILY anxiety 10/0504/23/25 History allopurinol 300 mg tablet 300 mg PO DAILY GOUT 8 04/23/25 History (Zyloprim) memantine 5 mg tablet 10 mg PO BID memory 05/26/21 04/22/25 History ibuprofen 200 mg capsule 200 mg PO Q4H PRN Pain 03/0504/22/25 History cholecalciferol (vitamin D3) 25 25 mcg PO DAILY ordere d 05/14/23 04/23/25 History mcg (1,000 unit) tablet losartan 50 mg tablet 50 mg PO DAILY BP 04/23/25 0 04/23/25 History Allergy/AdvReac Type Severity Reaction Status Date / Time gabapentin Allergy tremors Verified 04/23/25 20:24 metoprolol (From Toprol XL) Allergy PT UNSURE Verified 04/23/25 20:24 OF REACTION ramipril (From Altace) Allergy PT UNSURE Verified 04/23/25 20:24 OF REACTION Family History Mother Cancer Father Heart disease Hypertension Surgical History History of parathyroid surgery Hx of splenectomy History of appendectomy H/O total hip arthroplasty Social History household members: spouse Smoking Status: [...] throat. SKIN: No rash or itching, lesions, wounds except + very states ecchymoses, abrasions. CARDIOVASCULAR: No chest pain, chest pressure or chest discomfort, palpitations,edema, orthopnea, syncopal events. RESPIRATORY: No shortness of breath, cough or sputum, wheezing, hemoptysis. GASTROINTESTINAL: No anorexia, nausea, vomiting or diarrhea, abdominal pain, melena, BRBPR. GENITOURINARY: + BPH with obstructive pathology. No dysuria, frequency, urgency. NEUROLOGICAL: + Underlying Alzheimer's dementia. No headache, dizziness, syncope, paralysis, ataxia, numbness or tingling in the extremities, focal weakness, change in bowel or bladder control, seizure. MUSCULOSKELETAL: + muscle, back pain, joint pain or stiffness. HEMATOLOGIC: + Chronic anemia, easy bleeding/bruising. LYMPHATICS: No enlarged nodes. No history of splenectomy. PSYCHIATRIC: + History of anxiety and depression. ENDOCRINOLOGIC: No reports of sweating, cold or heat intolerance. No polyuria orpolydipsia. ALLERGIES: No history of asthma, hives, eczema or rhinitis. Vital Signs Vital Signs Vital Signs: 04/23/25 20:24 04/23/25 20:32 Temperature 97.9 F Temperature Source Oral Pulse Rate 58 L Respiratory Rate 16 Respiratory Effort Normal Non-Labored Blood Pressure 159/94 H Blood Pressure Mean 115 Pulse Ox 95 Oxygen Delivery Method Room Air Weight Weight: 158 lb 15.253 oz Body Mass Index (BMI) 24.9 Physical Exam Narrative Physical Examination: General: Awake, alert, oriented to self, place and recent events, does have underlying Alzheimer's dementia with some mild cognitive impairment, remains cooperative, laying in ED bed, notes persistent ongoing severe left hip pain, currently 8 out of 10 in severity. Skin: Normal color, normal turgor, no icterus, no cyanosis except occasional stage ecchymoses, abrasions. HEENT: AT/NC, EOMI, PERRLA, mildly dry MM, no carotid bruits or JVD noted. Lungs: CTA bilaterally, moderate effort, mild decrease BL bases, no rales, ronchi or wheezing. Heart: Mildly bradycardic with regular rhythm; no gallop, rub audible. Abdomen: Soft, NTTP, ND, hyperactive BS, no appreciated HSM. Extremities: No cyanosis, no clubbing, status post fall with left hip fracture with left lower extremity external rotation, peripheral pulses intact, pedal to mid lee chronic edema present. Neurological: Patient awake, alert, oriented as noted, cognitive function currently appears baseline intact per report with underlying mild cognitiveimpairment with dementia; pupils equally reactive to light and accommodation, cranial nerves grossly normal, moving all 4 extremities except extremely limitedleft lower extremity given fall with left hip fracture but able to move toes, strength accordingly severely globally decreased. Psychiatric: Affect appears uncomfortable, no acute evidence of depressive or anxiety feelings but does have underlying history. Results Lab / Micro Data 04/23/25 20:25 04/23/25 20:25 Labs: Laboratory Results - last 24 hr 04/23/25 20:25: WBC 7.8, RBC 4.02 L, Hgb 13.1, Hct 39.5 L, MCV 98.3 H, MCH 32.6 H, MCHC 33.2, RDW Std Deviation 53.9 H, RDW Coeff of Eduarda 15.1 H, Plt Count 187, MPV 11.6, Immature Gran % (Auto) 0.500, Neut % (Auto) 52.0, Lymph % (Auto) 37.3,Parker % (Auto) 7.9, Eos % (Auto) 1.9, Baso % (Auto) 0.4, Absolute Neuts (auto) 4.1, Absolute Lymphs (auto) 2.91, Nucleated RBC % 0.3, Sodium 140, Potassium 5.3H, Chloride 107, Carbon Dioxide 23.5, Anion Gap 10, BUN 38 H, Creatinine 1.81 H,Estim Creat Clear Calc 28.91 L, Est GFR (MDRD) Non-Af 37 L, BUN/Creatinine Ratio21.2 H, Glucose 86, Calcium 8.9 Imaging Radiology Impression Hip/Pelvis X-Ray 04/23/25 21:05 IMPRESSION: Acute comminuted intertrochanteric fracture of the left femur with mild shortening and varus angulation. No additional fractures or dislocation. Reading Location: [facility] Assessment & Plan Assessment/Plan (1) Fall: (2) Closed fracture of left hip: PLAN: Plan The patient is an 85 y/o M w/ PMHx: Alzheimer's disease with mild cognitive impairment with unclear behavioral disturbance history, Hairy Cell Leukemia following w/ Dr. Andrade Dx 1982, HFrEF (EF 35%, prior was following w/ [employer] Dr. Wells, s/p cath 2004), CKD stage III unclear subtype per GFR trending, HTH, HLD Gout, chart reported history diabetes mellitus type II, BPH with obstructive pathology, Chronic anemia/iron deficiency anemia anxiety and Depression who presents to the [facility] ED on 04/23/25 with history of walking with hiswife on the sidewalk specifically on the outside toward the curb on the way to getting lunch unfortunately baseline walking over hunched with a cane when his foot folded over the curb and he fell against a vehicle then landing on the ground onto his left hip and leg and eventually falling onto the sidewalk with no head trauma or loss of consciousness but significant onset immediate intractable left hip and leg pain 10 out of 10 in severity, severe sharp with obvious deformity and external rotation prompting ED evaluation. #1. General debility, left hip pain s/p mechanical fall w/ acute comminuted intertrochanteric fracture of the left femur with mild shortening and varus angulation: Orthopedic surgery consulted from ED. Will admit to MS, maintain NPO, continue gentle IVFs, craig placement, monitor I/Os, frequent positioning, fall precautions, Pain, anti-emetic regimen. PT/OT following operative intervention. CM consulted for discharge planning. Per NSQIP patient does carry significant risk especially given underlying comorbidities and underlying cardiac disease with HF R EF with last EF noted 35%. Discussed with ED physician and EKG is being obtained in addition to plan for echocardiogram, BNP and cardiology evaluation previous to transition to the OR which was relayed to orthopedic surgery. Ideally patient would be seen earlier in the day by cardiology and echocardiogram will be obtained earlier in the day with decision for transition to the OR in the afternoon if amenable. #2. Hyperkalemia, mild: Admission potassium 5.3, judiciously hydrating given n.p.o. status, will repeat CMP in a.m. and if further elevated may consider hyperkalemic protocol. #3. CKD stage III, unclear subtype: Admission BUN/creatinine 38/1.81, GFR 37, baseline creatinine more recently has been 1.4-1.8, continue to trend CMP. #4. BPH: With obstructive pathology we will continue patient home doxazosin home regimen, monitor for retention. #5. Hairy Cell Leukemia: Patient following w/ Dr. Andrade Dx 1982 s/p splenectomy w/ relapse 1984 with Tx Pentastatin/ECOG protocol w/ remission achieved, last visit noted 05/12/2024, encourage continued outpatient follow-up as previously arranged. #6. Chronic macrocytic anemia/iron deficiency anemia: Admission hemoglobin 13.1, MCV 98.3, baseline hemoglobin appears 11-12 however last lab noted 05/12/2024 thus 1 year previous, will continue to trend CBC. #7. Chronic HFrEF: Patient with no echocardiogram noted in the system, last noted EF 35% from remote catheterization 2004 with nonobstructive disease, givenhis history will very judiciously hydrate preop, continue aspirin, statin, continue judicious hydration given his history, continue aspirin, statin, losartan home regimen, not on beta-lynn therapy. Echo cutting requested for preoperative clearance as well as BNP. #8. Alzheimer's disease with associated dementia with associated mild cognitiveimpairment with unclear behavioral disturbance history: Complicates presentation, maintain on fall precautions, continue patient home memantine and donepezil regimen, PT/OT/case management consultation for discharge planning. #9. Anxiety and depression: We will continue patient home paroxetine regimen. #10. Chart reported history diabetes mellitus type II: Not on regimen per current list, he 1 A1c requested, in the interim maintain on ADA diet until n.p.o. status, accu checks w/ ISS. #11. Hypertension: Continue home regimen including losartan cautiously with hold if renal function worsens as noted, PRN hydralazine. #12. Hyperlipidemia: Continue patient home statin therapy. #13. Gout: Continue patient home allopurinol regimen. #14. DVT prophylaxis: SCDs, defer chemoprophylaxis for planned operative intervention per orthopedic surgery. #15. CODE status: Patient AIDAN is his and living will is currently in place. Discussed CODE status at length including difference between FULL code, DNR-CCA and DNR-CC status. Following discussions about the differences in these status, requested continuation of full Code status. Advanced Care Planning Face to Face Time: 16 minutes. Charges/Coding Visit Charges Inpatient E&M: 16253 Init Hosp L3 Procedures Hospitalists Procedures: 62859 Advncd Care Plan 30 Min 04/24/25 0130 <Electronically signed by Paty Morgan MD> Cosigner Signature (if applicable): CC: Dr. Paty Morgan MD; Dr. Baron Espinoza MD~ Signed [facility] Work Phone: 1(255) 568-430706-07-2025 Discharge summary Author Margy Leroy [facility] Note Date/Time April 23, 2025 11:35 pm [facility] Medical Records Department [address] [place] [address] Emergency Department Summary 04/23/25 MR#: [id number] Acct: [id number] Name: MICHAEL MULLINS Rep #:[id number] : 1940 85 From: Margy WARNER PCP: Dr. Baron Espinoza MD Status:ADM I N Location: MS3 TT243-0 HPI <ALANA Bonilla - Last Filed: 04/23/25 21:53> History of Present Illness Chief Complaint: Fall Narrative Narrative: Patient presenting today with his due to a mechanical fall that occurred this evening. They were on their way to [place] when he tripped over the curb and landed on his left hip. He did not hit his head and denies LOC, he is not on any blood thinners. He has an externally rotated and shortened left lower extremity. He denies any other injury aside from left hip pain. He was not able to ambulate, EMS was called and brings him in for evaluation. He has aPMH of CKD, CHF, T2DM. [facility] <ALANA Bonilla - Last Filed: 04/23/25 21:53> [facility] Medical History COVID-19 Former smoker Degenerative disc disease, cervical Benign prostate hyperplasia Left bundle branch block Anxiety Mild cognitive impairment with memory loss Alzheimer's disease Hypertension DM2 (diabetes mellitus, type 2) HTN (hypertension) Gout Heart failure with reduced ejection fraction Hairy cell leukemia Hyperlipidemia Home Medications ?Medication ?Instructions ?Recorded ?Last Taken ?Type atorvastatin 10 mg tablet 10 mg PO QHS CHOLESTEROL 01/3104/23/25 History doxazosin 1 mg tablet 1 mg PO QHS prostate 6 04/23/25 History donepezil 5 mg tablet 10 mg PO QHS memory 11/28/17 04/23/25 History paroxetine HCl 10 mg tablet 10 mg PO DAILY anxiety 10/0504/23/25 History allopurinol 300 mg tablet 300 mg PO DAILY GOUT 8 04/23/25 History (Zyloprim) memantine 5 mg tablet 10 mg PO BID memory 05/26/21 04/22/25 History ibuprofen 200 mg capsule 200 mg PO Q4H PRN Pain 03/0504/22/25 History cholecalciferol (vitamin D3) 25 25 mcg PO DAILY ordere d 05/14/23 04/23/25 History mcg (1,000 unit) tablet losartan 50 mg tablet 50 mg PO DAILY BP 04/23/25 0 04/23/25 History Allergy/AdvReac Type Severity Reaction Status Date / Time gabapentin Allergy tremors Verified 04/23/25 20:24 metoprolol (From Toprol XL) Allergy PT UNSURE Verified 04/23/25 20:24 OF REACTION ramipril (From Altace) Allergy PT UNSURE Verified 04/23/25 20:24 OF REACTION Family History Mother Cancer Father Heart disease Hypertension Surgical History History of parathyroid surgery Hx of splenectomy History of appendectomy H/O total hip arthroplasty Social History household members: spouse Smoking Status: Former smoker alcohol intake: never substance use type: does not use ROS <ALANA Bonilla - Last Filed: 04/23/25 21:53> ROS ED Constitutional Constitutional ED: Denies chills or fever(s) Cardiovascular Cardiovascular: Denies chest pain Respiratory/Chest Respiratory/Chest: Denies dyspnea Gastrointestinal Gastrointestinal: Denies abdominal pain, nausea or vomiting Musculoskeletal Musculoskeletal: Reports arthralgias; Denies back pain or neck pain Integumentary Denies Abrasions Neurologic Neurologic: Denies paresthesias EXAM <ALANA Bonilla - Last Filed: 04/23/25 21:53> Physical Exam Const Vital Signs: 04/23/25 20:24 04/23/25 20:32 Temperature 97.9 F Temperature Source Oral Pulse Rate 58 L Respiratory Rate 16 Respiratory Effort Normal Non-Labored Blood Pressure 159/94 H Blood Pressure Mean 115 Pulse Ox 95 Oxygen Delivery Method Room Air Positive well nourished, well developed and no apparent distress General Appearance ED: well developed HEENT Reports normocephalic and head/scalp atraumatic Mouth ED: Yes moist mucous membranes normal Eyes PERRL and EOMs intact bilaterally Neck full ROM and supple General: Negative for tenderness Chest Wall inspection of chest normal and palpation of chest normal Resp normal respiratory effort and clear to auscultation bilaterally Cardio regular rate and regular rhythm GI soft to palpation, non-tender, non-distended and no masses Back/Spine normal ROM and normal to inspection Extremity Extremity Narrative: Externally rotated and shortened left lower extremity, positive logroll on the left, pain palpation to the left greater trochanter, left DP pulse 2+, good cap refill, sensation intact Neuro oriented x3, CN's II-XII intact bilaterally, moves all extremities, no focal motor deficits and no sensory deficits noted Sensorium / Orientation: awake and alert Psych mental status grossly normal and thought process normal Skin no rashes or lesions noted and no wounds <Dr. Aubrey Pascual DO - Last Filed: 04/23/25 23:35> Physical Exam Const Vital Signs: 04/23/25 20:24 04/23/25 20:32 Temperature 97.9 F Temperature Source Oral Pulse Rate 58 L Respiratory Rate 16 Respiratory Effort Normal Non-Labored Blood Pressure 159/94 H Blood Pressure Mean 115 Pulse Ox 95 Oxygen Delivery Method Room Air MDM <ALANA Bonilla - Last Filed: 04/23/25 21:53> [facility] Narrative Medical decision making narrative: Patient presenting today due to concerns for left hip pain following a mechanical fall that occurred this evening. He did not hit his head, no LOC occurred. He has a externally rotated and shortened left lower extremity concerning for hip fracture. X-ray will be obtained. He was given IV morphine and Zofran for pain. Labs will be obtained. CBC is unremarkable, potassium 5.3, creatinine 1.81 which is consistent with previous labs. X-ray of the hip shows a comminuted intertrochanteric fracture of the left femur. I spoke with Dr. Miranda, he will plan on repairing this tomorrow. I will speak with the hospitalist regarding admission. Additional preop labs/imaging will be obtained. Patient remains in stable condition. Lab Data Attestation: I reviewed the patient's lab results. Labs: Laboratory Results - last 24 hr 04/23/25 04/23/25 20:25 21:45 WBC 7.8 RBC 4.02 L Hgb 13.1 Hct 39.5 L MCV 98.3 H MCH 32.6 H MCHC 33.2 RDW Std Deviation 53.9 H RDW Coeff of Eduarda 15.1 H Plt Count 187 MPV 11.6 Immature Gran % (Auto) 0.500 Neut % (Auto) 52.0 Lymph % (Auto) 37.3 Parker % (Auto) 7.9 Eos % (Auto) 1.9 Baso % (Auto) 0.4 Absolute Neuts (auto) 4.1 Absolute Lymphs (auto) 2.91 Nucleated RBC % 0.3 PT 13.9 INR 1.1 Sodium 140 Potassium 5.3 H Chloride 107 Carbon Dioxide 23.5 Anion Gap 10 BUN 38 H Creatinine 1.81 H Estim Creat Clear Calc 28.91 L Est GFR (MDRD) Non-Af 37 L BUN/Creatinine Ratio 21.2 H Glucose 86 Calcium 8.9 Magnesium 2.3 H Radiography Diagnostic Testing: Clinical Impression(s) from Imaging Studies Hip/Pelvis X-Ray 04/23/25 21:05 IMPRESSION: Acute comminuted intertrochanteric fracture of the left femur with mild shortening and varus angulation. No additional fractures or dislocation. Reading Location: [facility] <Dr. Aubrey Pascual DO - Last Filed: 04/23/25 23:35> [facility] Narrative Medical decision making narrative: Patient presenting today due to concerns for left hip pain following a mechanical fall that occurred this evening. He did not hit his head, no LOC occurred. He has a externally rotated and shortened left lower extremity concerning for hip fracture. X-ray will be obtained. He was given IV morphine and Zofran for pain. Labs will be obtained. CBC is unremarkable, potassium 5.3, creatinine 1.81 which is consistent with previous labs. X-ray of the hip shows a comminuted intertrochanteric fracture of the left femur. I spoke with Dr. Miranda, he will plan on repairing this tomorrow. I will speak with the hospitalist regarding admission. Additional preop labs/imaging will be obtained. Patient remains in stable condition. EKG: Sinus bradycardia, left bundle branch block, no ST changes. Similar to June 2021. Attending note: I have personally performed a face to face assessment of the patient and have reviewed the DEMETRIUS note. I personally made/approved the management plan and take responsibility for the patient management. I performed a substantive portion of the visit including all aspects of the following. My bentley findings include: Mechanical fall left hip injury. Brought in by EMS. No head injuries. No anticoagulants. Right hip repair from fracture [address] Parker. Exam GCS 15. Left lower extremity shortened and rotated positive logroll. Treated for pain three-view x-ray left hip and pelvis intertrochanteric fracture with displacement. 1 view preop chest x- ray inter byself elevated left hemidiaphragm. No infiltrates. EKG sinus rhythm chronic left bundle branch. Labs are stable. We discussed with orthopedist Dr. Miranda admit to medicine with planned surgical intervention tomorrow. Lab Data Labs: Laboratory Results - last 24 hr 04/23/25 04/23/25 20:25 21:45 WBC 7.8 RBC 4.02 L Hgb 13.1 Hct 39.5 L MCV 98.3 H MCH 32.6 H MCHC 33.2 RDW Std Deviation 53.9 H RDW Coeff of Eduarda 15.1 H Plt Count 187 MPV 11.6 Immature Gran % (Auto) 0.500 Neut % (Auto) 52.0 Lymph % (Auto) 37.3 Parker % (Auto) 7.9 Eos % (Auto) 1.9 Baso % (Auto) 0.4 Absolute Neuts (auto) 4.1 Absolute Lymphs (auto) 2.91 Nucleated RBC % 0.3 PT 13.9 INR 1.1 Sodium 140 Potassium 5.3 H Chloride 107 Carbon Dioxide 23.5 Anion Gap 10 BUN 38 H Creatinine 1.81 H Estim Creat Clear Calc 28.91 L Est GFR (MDRD) Non-Af 37 L BUN/Creatinine Ratio 21.2 H Glucose 86 Calcium 8.9 Magnesium 2.3 H Radiography Diagnostic Testing: Clinical Impression(s) from Imaging Studies Hip/Pelvis X-Ray 04/23/25 21:05 IMPRESSION: Acute comminuted intertrochanteric fracture of the left femur with mild shortening and varus angulation. No additional fractures or dislocation. Reading Location: [facility] Discharge Plan Dx/Rx/DC Orders Clinical Impression: Closed fracture of left hip, CKD (chronic kidney disease), Fall Disposition Disposition: Acute Care Hospital [facility] What to do if you have Problems For any increased pain, shortness of breath, bleeding, nausea or vomiting, chestpain, or any unexpected problems, contact your Primary Care Provider. Call [facility] ([phone]) or report to the closest Emergency Room. Call 911 if necessary. 04/23/252152 <Electronically signed by Margy WARNER> Cosigner Signature (if applicable): 04/23/252334 <Electronically signed by Aubrey Fregoso> CC: Dr. Baron Espinoza MD ~ Signed [facility] Work Phone: 1(198) 975-886906-07-2025 History and physical note [facility] Medical Records Department [address] [place] [address] H&P Exam - Hospitalist 04/23/252155 MR#: [id number] Acct: [id number] Name: MICHEAL MULLINS Rep #:[id number] : 1940 85 From: Paty Morgan MD PCP: Dr. Baron Espinoza MD Status:ADM I N [id number] - General General Date of Admission: 04/23/25 Date of Service: 04/23/25 Chief Complaint: Fall, L hip pain. HPI Narrative The patient is an 85 y/o M w/ PMHx: Alzheimer's disease with mild cognitive impairment with unclearbehavioral disturbance history, Hairy Cell Leukemia following w/ Dr. Andrade Dx 1982, HFrEF (EF 35%, prior was following w/ [employer] Dr. Wells, s/p cath 2004), CKD stage III unclear subtype per GFR trending, HTH, HLD Gout, chart reported history diabetes mellitus type II, BPH with obstructive pathology, Chronic anemia/iron deficiency anemia anxiety and Depression who presents to the [facility] ED on 04/23/25 with history of walking with hiswife on the sidewalk specifically on the outside toward the curb on the way to getting lunch unfortunately baseline walking over hunched with a cane when his footfolded over the curb and he fell against a vehicle then landing on the ground onto his left hip andleg and eventually falling onto the sidewalk with no head trauma or loss of consciousness but significant onset immediate intractable left hip and leg pain 10 out of 10 in severity, severe sharp with obvious deformity and external rotation prompting ED evaluation. Workup in the ED included T97.9, heart rate 58, BP 159/94, respiratory rate 16, 95% on room air, CBC with WBC 7.8, hemoglobin 13.1, platelet 187 without marked shift, unremarkable coags, BMP with potassium 5.3, BUN/Frankie 38/1.81, GFR37, chest x- ray with subtle patchy opacity right midlung zone possibly chronic changes, linear opacity left mid lung zone likely atelectasis or scarring, plain film of the left hip and pelvis with anacute comminuted intertrochanteric fracture of the left femur with mild shortening and varus angulation, pending EKG upon evaluation of patient. ED physician did discuss patient with Dr. Miranda orthop edic surgeon with surgeon preference for OR 04/24/2025. [facility] Medical History (Updated 04/24/25 @ 01:[address] Paty Morgan MD) Anxiety and depression COVID-19 Former smoker Degenerative disc disease, cervical Benign prostate hyperplasia Left bundle branch block Mild cognitive impairment with memory loss Alzheimer's disease Hypertension DM2 (diabetes mellitus, type 2) HTN (hypertension) Gout Heart failure with reduced ejection fraction Hairy cell leukemia Hyperlipidemia Home Medications ?Medication ?Instructions ?Recorded ?Last Taken ?Type atorvastatin 10 mg tablet 10 mg PO QHS CHOLESTEROL 01/3104/23/25 History doxazosin 1 mg tablet 1 mg PO QHS prostate 6 04/23/25 History donepezil 5 mg tablet 10 mg PO QHS memory 11/28/17 04/23/25 History paroxetine HCl 10 mg tablet 10 mg PO DAILY anxiety 10/0504/23/25 History allopurinol 300 mg tablet 300 mg PO DAILY GOUT 8 04/23/25 History (Zyloprim) memantine 5 mg tablet 10 mg PO BID memory 05/26/21 04/22/25 History ibuprofen 200 mg capsule 200 mg PO Q4H PRN Pain 03/0504/22/25 History cholecalciferol (vitamin D3) 25 25 mcg PO DAILY ordere d 05/14/23 04/23/25 History mcg (1,000 unit) tablet losartan 50 mg tablet 50 mg PO DAILY BP 04/23/25 0 04/23/25 History Allergy/AdvReac Type Severity Reaction Status Date / Time gabapentin Allergy tremors Verified 04/23/25 20:24 metoprolol (From Toprol XL) Allergy PT UNSURE Verified 04/23/25 20:24 OF REACTION ramipril (From Altace) Allergy PT UNSURE Verified 04/23/25 20:24 OF REACTION Family History Mother Cancer Father Heart disease Hypertension Surgical History History of parathyroid surgery Hx of splenectomy History of appendectomy H/O total hip arthroplasty Social History household members: spouse Smoking Status: [...] throat. SKIN: No rash or itching, lesions, wounds except + very states ecchymoses, abrasions. CARDIOVASCULAR: No chest pain, chest pressure or chest discomfort, palpitations,edema, orthopnea, syncopal events. RESPIRATORY: No shortness of breath, cough or sputum, wheezing, hemoptysis. GASTROINTESTINAL: No anorexia, nausea, vomiting or diarrhea, abdominal pain, melena, BRBPR. GENITOURINARY: + BPH with obstructive pathology. No dysuria, frequency, urgency. NEUROLOGICAL: + Underlying Alzheimer's dementia. No headache, dizziness, syncope, paralysis, ataxia, numbness or tingling in the extremities, focal weakness, change in bowel or bladder control, seizure. MUSCULOSKELETAL: + muscle, back pain, joint pain or stiffness. HEMATOLOGIC: + Chronic anemia, easy bleeding/bruising. LYMPHATICS: No enlarged nodes. No history of splenectomy. PSYCHIATRIC: + History of anxiety and depression. ENDOCRINOLOGIC: No reports of sweating, cold or heat intolerance. No polyuria orpolydipsia. ALLERGIES: No history of asthma, hives, eczema or rhinitis. Vital Signs Vital Signs Vital Signs: 04/23/25 20:24 04/23/25 20:32 Temperature 97.9 F Temperature Source Oral Pulse Rate 58 L Respiratory Rate 16 Respiratory Effort Normal Non-Labored Blood Pressure 159/94 H Blood Pressure Mean 115 Pulse Ox 95 Oxygen Delivery Method Room Air Weight Weight: 158 lb 15.253 oz Body Mass Index (BMI) 24.9 Physical Exam Narrative Physical Examination: General: Awake, alert, oriented to self, place and recent events, does have underlying Alzheimer's dementia with some mild cognitive impairment, remains cooperative, laying in ED bed, notes persistent ongoing severe left hip pain, currently 8 out of 10 in severity. Skin: Normal color, normal turgor, no icterus, no cyanosis except occasional stage ecchymoses, abrasions. HEENT: AT/NC, EOMI, PERRLA, mildly dry MM, no carotid bruits or JVD noted. Lungs: CTA bilaterally, moderate effort, mild decrease BL bases, no rales, ronchi or wheezing. Heart: Mildly bradycardic with regular rhythm; no gallop, rub audible. Abdomen: Soft, NTTP, ND, hyperactive BS, no appreciated HSM. Extremities: No cyanosis, no clubbing, status post fall with left hip fracture with left lower extremity external rotation, peripheral pulses intact, pedal to mid lee chronic edema present. Neurological: Patient awake, alert, oriented as noted, cognitive function currently appears baseline intact per report with underlying mild cognitiveimpairment with dementia; pupils equally reactive to light and accommodation, cranial nerves grossly normal, moving all 4 extremities except extremely limitedleft lower extremity given fall with left hip fracture but able to move toes, strength accordingly severely globally decreased. Psychiatric: Affect appears uncomfortable, no acute evidence of depressive or anxiety feelings but does have underlying history. Results Lab / Micro Data 04/23/25 20:25 04/23/25 20:25 Labs: Laboratory Results - last 24 hr 04/23/25 20:25: WBC 7.8, RBC 4.02 L, Hgb 13.1, Hct 39.5 L, MCV 98.3 H, MCH 32.6 H, MCHC 33.2, RDW Std Deviation 53.9 H, RDW Coeff of Eduarda 15.1 H, Plt Count 187, MPV 11.6, Immature Gran % (Auto) 0.500,Neut % (Auto) 52.0, Lymph % (Auto) 37.3,Parker % (Auto) 7.9, Eos % (Auto) 1.9, Baso % (Auto) 0.4, Absolute Neuts (auto) 4.1, Absolute Lymphs (auto) 2.91, Nucleated RBC % 0.3, Sodium 140, Potassium 5.3H, Chloride 107, Carbon Dioxide 23.5, Anion Gap 10, BUN 38 H, Creatinine 1.81 H,Estim Creat Clear Calc 28.91 L, Est GFR (MDRD) Non-Af 37 L, BUN/Creatinine Ratio21.2 H, Glucose 86, Calcium 8.9 Imaging Radiology Impression Hip/Pelvis X-Ray 04/23/25 21:05 IMPRESSION: Acute comminuted intertrochanteric fracture of the left femur with mild shortening and varus angulation. No additional fractures or dislocation. Reading Location: [facility] Assessment & Plan Assessment/Plan (1) Fall: (2) Closed fracture of left hip: PLAN: Plan The patient is an 85 y/o M w/ PMHx: Alzheimer's disease with mild cognitive impairment with unclearbehavioral disturbance history, Hairy Cell Leukemia following w/ Dr. Andrade Dx 1982, HFrEF (EF 35%, prior was following w/ [employer] Dr. Wells, s/p cath 2004), CKD stage III unclear subtype per GFR trending, HTH, HLD Gout, chart reported history diabetes mellitus type II, BPH with obstructive pathology, Chronic anemia/iron deficiency anemia anxiety and Depression who presents to the [facility] ED on 04/23/25 with history of walking with hiswife on the sidewalk specifically on the outside toward the curb on the way to getting lunch unfortunately baseline walking over hunched with a cane when his footfolded over the curb and he fell against a vehicle then landing on the ground onto his left hip andleg and eventually falling onto the sidewalk with no head trauma or loss of consciousness but significant onset immediate intractable left hip and leg pain 10 out of 10 in severity, severe sharp with obvious deformity and external rotation prompting ED evaluation. #1. General debility, left hip pain s/p mechanical fall w/ acute comminuted intertrochanteric fracture of the left femur with mild shortening and varus angulation: Orthopedic surgery consulted from ED. Will admit to MS, maintain NPO, continue gentle IVFs, craig placement, monitor I/Os, frequent positioning, fall precautions, Pain, anti-emetic regimen. PT/OT following operative intervention. CM consulted for discharge planning. Per NSQIP patient does carry significant risk especially given underlying comorbidities and underlying cardiac disease with HF R EF with last EF noted 35%. Discussed with ED physician and EKG is being obtained in addition to plan for echocardiogram, BNP and cardiology evaluation previous to transition to the OR which was relayed to orthopedic surgery. Ideally patient would be seen earlier in the day by cardiology and echocardiogram will be obtained earlier in the day with decision for transition to the OR in the afternoon if amenable. #2. Hyperkalemia, mild: Admission potassium 5.3, judiciously hydrating given n.p.o. status, will repeat CMP in a.m. and if further elevated may consider hyperkalemic protocol. #3. CKD stage III, unclear subtype: Admission BUN/creatinine 38/1.81, GFR 37, baseline creatinine more recently has been 1.4-1.8, continue to trend CMP. #4. BPH: With obstructive pathology we will continue patient home doxazosin home regimen, monitor for retention. #5. Hairy Cell Leukemia: Patient following w/ Dr. Andrade Dx 1982 s/p splenectomy w/ relapse 1984 withTx Pentastatin/ECOG protocol w/ remission achieved, last visit noted 05/12/2024, encourage continuedoutpatient follow-up as previously arranged. #6. Chronic macrocytic anemia/iron deficiency anemia: Admission hemoglobin 13.1, MCV 98.3, baselinehemoglobin appears 11-12 however last lab noted 05/12/2024 thus 1 year previous, will continue to trend CBC. #7. Chronic HFrEF: Patient with no echocardiogram noted in the system, last noted EF 35% from remote catheterization 2004 with nonobstructive disease, givenhis history will very judiciously hydrate preop, continue aspirin, statin, continue judicious hydration given his history, continue aspirin, statin, losartan home regimen, not on beta-lynn therapy. Echo cutting requested for preoperative clearance as well as BNP. #8. Alzheimer's disease with associated dementia with associated mild cognitiveimpairment with unclear behavioral disturbance history: Complicates presentation, maintain on fall precautions, continuepatient home memantine and donepezil regimen, PT/OT/case management consultation for discharge planning. #9. Anxiety and depression: We will continue patient home paroxetine regimen. #10. Chart reported history diabetes mellitus type II: Not on regimen per current list, he 1 A1c requested, in the interim maintain on ADA diet until n.p.o. status, accu checks w/ ISS. #11. Hypertension: Continue home regimen including losartan cautiously with hold if renal function worsens as noted, PRN hydralazine. #12. Hyperlipidemia: Continue patient home statin therapy. #13. Gout: Continue patient home allopurinol regimen. #14. DVT prophylaxis: SCDs, defer chemoprophylaxis for planned operative intervention per orthopedic surgery. #15. CODE status: Patient AIDAN is his and living will is currently in place. Discussed CODE status at length including difference between FULL code, DNR-CCA and DNR-CC status. Following discussions about the differences in these status, requested continuation of full Code status. Advanced Care Planning Face to Face Time: 16 minutes. Charges/Coding Visit Charges Inpatient E&M: 49118 Init Hosp L3 Procedures Hospitalists Procedures: 22534 Advncd Care Plan 30 Min 04/24/25 0130 Cosigner Signature (if applicable): CC: Dr. Paty Morgan MD; Dr. Baron Espinoza MD~ Signed [facility]06-06-2025 Evaluation note* Diagnosis Onset Date Resolution Status Admit Date Acute ischemic stroke acute Apr 9:57pm Closed fracture of left hip acute April 23, 2025 9:57pm Fall acute April 23, 2025 9:57pm Intertrochanteric fracture o f left femur acute April 23, 2025 9 :57pm [facility] Work Phone: [phone] 182-491406-06-2025 Discharge summary [facility] Medical Records Department [address] [place] [id number] Emergency Department Summary 04/23/25 MR#: [id number] Acct: [id number] Name: MICHAEL MULLINS Rep #:[id number] : 1940 85 From: Margy WARNER PCP: Dr. Baron Espinoza MD Status:ADM I N [facility] History of Present Illness Chief Complaint: Fall Narrative Narrative: Patient presenting today with his due to a mechanical fall that occurred this evening. They were on their way to [facility] when he tripped over the curb and landed on his left hip. He did not hit his head and denies LOC, he is not on any blood thinners. He has an externally rotated and shortened left lower extremity. He denies any other injury aside from left hip pain. He was not able to ambulate, EMS was called and brings him in for evaluation. He has aPMH of CKD, CHF, T2DM. [facility] Medical History COVID-19 Former smoker Degenerative disc disease, cervical Benign prostate hyperplasia Left bundle branch block Anxiety Mild cognitive impairment with memory loss Alzheimer's disease Hypertension DM2 (diabetes mellitus, type 2) HTN (hypertension) Gout Heart failure with reduced ejection fraction Hairy cell leukemia Hyperlipidemia Home Medications ?Medication ?Instructions ?Recorded ?Last Taken ?Type atorvastatin 10 mg tablet 10 mg PO QHS CHOLESTEROL 01/3104/23/25 History doxazosin 1 mg tablet 1 mg PO QHS prostate 6 04/23/25 History donepezil 5 mg tablet 10 mg PO QHS memory 11/28/17 04/23/25 History paroxetine HCl 10 mg tablet 10 mg PO DAILY anxiety 10/0504/23/25 History allopurinol 300 mg tablet 300 mg PO DAILY GOUT 8 04/23/25 History (Zyloprim) memantine 5 mg tablet 10 mg PO BID memory 05/26/21 04/22/25 History ibuprofen 200 mg capsule 200 mg PO Q4H PRN Pain 03/0504/22/25 History cholecalciferol (vitamin D3) 25 25 mcg PO DAILY ordere d 05/14/23 04/23/25 History mcg (1,000 unit) tablet losartan 50 mg tablet 50 mg PO DAILY BP 04/23/25 0 04/23/25 History Allergy/AdvReac Type Severity Reaction Status Date / Time gabapentin Allergy tremors Verified 04/23/25 20:24 metoprolol (From Toprol XL) Allergy PT UNSURE Verified 04/23/25 20:24 OF REACTION ramipril (From Altace) Allergy PT UNSURE Verified 04/23/25 20:24 OF REACTION Family History Mother Cancer Father Heart disease Hypertension Surgical History History of parathyroid surgery Hx of splenectomy History of appendectomy H/O total hip arthroplasty Social History household members: spouse Smoking Status: Former smoker alcohol intake: never substance use type: does not use ROS ROS ED Constitutional Constitutional ED: Denies chills or fever(s) Cardiovascular Cardiovascular: Denies chest pain Respiratory/Chest Respiratory/Chest: Denies dyspnea Gastrointestinal Gastrointestinal: Denies abdominal pain, nausea or vomiting Musculoskeletal Musculoskeletal: Reports arthralgias; Denies back pain or neck pain Integumentary Denies Abrasions Neurologic Neurologic: Denies paresthesias EXAM Physical Exam Const Vital Signs: 04/23/25 20:24 04/23/25 20:32 Temperature 97.9 F Temperature Source Oral Pulse Rate 58 L Respiratory Rate 16 Respiratory Effort Normal Non-Labored Blood Pressure 159/94 H Blood Pressure Mean 115 Pulse Ox 95 Oxygen Delivery Method Room Air Positive well nourished, well developed and no apparent distress General Appearance ED: well developed HEENT Reports normocephalic and head/scalp atraumatic Mouth ED: Yes moist mucous membranes normal Eyes PERRL and EOMs intact bilaterally Neck full ROM and supple General: Negative for tenderness Chest Wall inspection of chest normal and palpation of chest normal Resp normal respiratory effort and clear to auscultation bilaterally Cardio regular rate and regular rhythm GI soft to palpation, non-tender, non-distended and no masses Back/Spine normal ROM and normal to inspection Extremity Extremity Narrative: Externally rotated and shortened left lower extremity, positive logroll on the left, pain palpationto the left greater trochanter, left DP pulse 2+, good cap refill, sensation intact Neuro oriented x3, CN's II-XII intact bilaterally, moves all extremities, no focal motor deficits and no sensory deficits noted Sensorium / Orientation: awake and alert Psych mental status grossly normal and thought process normal Skin no rashes or lesions noted and no wounds Physical Exam Const Vital Signs: 04/23/25 20:24 04/23/25 20:32 Temperature 97.9 F Temperature Source Oral Pulse Rate 58 L Respiratory Rate 16 Respiratory Effort Normal Non-Labored Blood Pressure 159/94 H Blood Pressure Mean 115 Pulse Ox 95 Oxygen Delivery Method Room Air MDM MDM MDM Narrative Medical decision making narrative: Patient presenting today due to concerns for left hip pain following a mechanical fall that occurred this evening. He did not hit his head, no LOC occurred. He has a externally rotated and shortened left lower extremity concerning for hip fracture. X-ray will be obtained. He was given IV morphine an d Zofran for pain. Labs will be obtained. CBC is unremarkable, potassium 5.3, creatinine 1.81 whichis consistent with previous labs. X-ray of the hip shows a comminuted intertrochanteric fracture ofthe left femur. I spoke with Dr. Miranda, he will plan on repairing this tomorrow. I will speak withthe hospitalist regarding admission. Additional preop labs/imaging will be obtained. Patient remains in stable condition. Lab Data Attestation: I reviewed the patient's lab results. Labs: Laboratory Results - last 24 hr 04/23/25 04/23/25 20:25 21:45 WBC 7.8 RBC 4.02 L Hgb 13.1 Hct 39.5 L MCV 98.3 H MCH 32.6 H MCHC 33.2 RDW Std Deviation 53.9 H RDW Coeff of Eduarda 15.1 H Plt Count 187 MPV 11.6 Immature Gran % (Auto) 0.500 Neut % (Auto) 52.0 Lymph % (Auto) 37.3 Parker % (Auto) 7.9 Eos % (Auto) 1.9 Baso % (Auto) 0.4 Absolute Neuts (auto) 4.1 Absolute Lymphs (auto) 2.91 Nucleated RBC % 0.3 PT 13.9 INR 1.1 Sodium 140 Potassium 5.3 H Chloride 107 Carbon Dioxide 23.5 Anion Gap 10 BUN 38 H Creatinine 1.81 H Estim Creat Clear Calc 28.91 L Est GFR (MDRD) Non-Af 37 L BUN/Creatinine Ratio 21.2 H Glucose 86 Calcium 8.9 Magnesium 2.3 H Radiography Diagnostic Testing: Clinical Impression(s) from Imaging Studies Hip/Pelvis X-Ray 04/23/25 21:05 IMPRESSION: Acute comminuted intertrochanteric fracture of the left femur with mild shortening and varus angulation. No additional fractures or dislocation. Reading Location: [facility] Narrative Medical decision making narrative: Patient presenting today due to concerns for left hip pain following a mechanical fall that occurred this evening. He did not hit his head, no LOC occurred. He has a externally rotated and shortened left lower extremity concerning for hip fracture. X-ray will be obtained. He was given IV morphine an d Zofran for pain. Labs will be obtained. CBC is unremarkable, potassium 5.3, creatinine 1.81 whichis consistent with previous labs. X-ray of the hip shows a comminuted intertrochanteric fracture ofthe left femur. I spoke with Dr. Miranda, he will plan on repairing this tomorrow. I will speak withthe hospitalist regarding admission. Additional preop labs/imaging will be obtained. Patient remains in stable condition. EKG: Sinus bradycardia, left bundle branch block, no ST changes. Similar to June 2021. Attending note: I have personally performed a face to face assessment of the patient and have reviewed the DEMETRIUS note. I personally made/approved the management plan and take responsibility for the patient management. I performed a substantive portion of the visit including all aspects of the following. My bentley findings include: Mechanical fall left hip injury. Brought in by EMS. No head injuries. No anticoagulants. Right hip repair from fracture [address] Parker. Exam GCS 15. Left lower extremity shortened and rotated positive logroll. Treated for pain three-view x-ray left hip and pelvis intertrochanteric fracture with displacement. 1 view preop chest x-ray inter byself elevated left hemidiaphragm. No infiltrates. EKG sinus rhythm chronic left bundle branch. Labs are stable. We discussed with orthopedist Dr. Miranda admit to medicine with planned surgical intervention tomorrow. Lab Data Labs: Laboratory Results - last 24 hr 04/23/25 04/23/25 20:25 21:45 WBC 7.8 RBC 4.02 L Hgb 13.1 Hct 39.5 L MCV 98.3 H MCH 32.6 H MCHC 33.2 RDW Std Deviation 53.9 H RDW Coeff of Eduarda 15.1 H Plt Count 187 MPV 11.6 Immature Gran % (Auto) 0.500 Neut % (Auto) 52.0 Lymph % (Auto) 37.3 Parker % (Auto) 7.9 Eos % (Auto) 1.9 Baso % (Auto) 0.4 Absolute Neuts (auto) 4.1 Absolute Lymphs (auto) 2.91 Nucleated RBC % 0.3 PT 13.9 INR 1.1 Sodium 140 Potassium 5.3 H Chloride 107 Carbon Dioxide 23.5 Anion Gap 10 BUN 38 H Creatinine 1.81 H Estim Creat Clear Calc 28.91 L Est GFR (MDRD) Non-Af 37 L BUN/Creatinine Ratio 21.2 H Glucose 86 Calcium 8.9 Magnesium 2.3 H Radiography Diagnostic Testing: Clinical Impression(s) from Imaging Studies Hip/Pelvis X-Ray 04/23/25 21:05 IMPRESSION: Acute comminuted intertrochanteric fracture of the left femur with mild shortening and varus angulation. No additional fractures or dislocation. Reading Location: [facility] Discharge Plan Dx/Rx/DC Orders Clinical Impression: Closed fracture of left hip, CKD (chronic kidney disease), Fall Disposition Disposition: Acute Care [facility] What to do if you have Problems For any increased pain, shortness of breath, bleeding, nausea or vomiting, chestpain, or any unexpected problems, contact your Primary Care Provider. Call [facility] ([phone]) or report tothe closest Emergency Room. Call 911 if necessary. 04/23/252152 Cosigner Signature (if applicable): 04/23/25 2335 CC: Dr. Baron Espinoza MD ~ Signed [facility]06-06-2025 Radiology Diagnostic study note [facility] Imaging Services [address] [place] [address] Chest 1 View MR#: [id number] Acct: [id number] Name: MICHAEL MULLINS Rep #: [id number] : 1940 M 85 From: Afsaneh Hancock MD PCP: Dr. Baron Espinoza MD Status: ADM I N Study:Chest 1 View Date of Exam: 5 Exam# [id number] Ordering Dr: Margy Varma PROCEDURE: CHEST 1 VIEW 04/23/2025 REASON FOR EXAM: PRE-OP TECHNIQUE: Frontal view of the chest. COMPARISON: Chest radiograph on 03/05/2023, CT chest on 07/01/2021 FINDINGS: Unchanged elevation of the left hemidiaphragm, which obscures the cardiomediastinal silhouette. There is subtle patchy opacity in the right mid lung zone and linear opacity in the left mid lung zone. Aorticatherosclerosis. Cervical spine hardware partially imaged. Surgical clips in the upper abdomen. Degenerative changes ofthe spine and shoulders. RAD/Chest 1 View IMPRESSION: 1. Subtle patchy opacity in the right mid lung zone could represent chronic changes of the lungs, with infection also possible. Correlate with symptoms. 2. Linear opacity in the left mid lung zone likely represents atelectasis or scarring. Reading Location: [id number] CC: Dr. Baron Espinoza MD; ALANA Bonilla ~ Unit Supervisor: Signed [facility]06-06-2025 Radiology Diagnostic study note [facility] Imaging Services [address] [place] [address] HIP, UNI W/ Pelvis 2-3 Views MR#: [id number] Acct: [id number] Name: MICHAEL MULLINS Rep #: [id number] : 1940 M 85 From: Christian Jean DO PCP: Dr. Baron Espinoza MD Status: REG E R Study:HIP, UNI W/ Pelvis 2-3 Views Date of Ex am: 04/23/25 Exam# [id number] Ordering Dr: Margy Varma PROCEDURE: HIP, UNI W/ PELVIS 2-3 VIEWS 04/23/2025 REASON FOR EXAM: L HIP PAIN TECHNIQUE: Three views of the pelvis and left hip COMPARISON: None FINDINGS: See impression RAD/HIP, UNI W/ Pelvis 2-3 Views IMPRESSION: Acute comminuted intertrochanteric fracture of the left femur with mild shortening and varus angulation. No additional fractures or dislocation. Reading Location: [facility] CC: Dr. Baron Espinoza MD; ALANA Bonilla ~ Unit Supervisor: Signed [facility]06-06-2025 Discharge summary Author Margy Leroy [facility] Note Date/Time April 23, 2025 11:35 pm [facility] Medical Records Department [address] [place] [address] Emergency Department Summary 04/23/25 MR#: [id number] Acct: [id number] Name: MICHAEL MULLINS Rep #:[id number] : 1940 85 From: Margy WARNER PCP: Dr. Baron Espinoza MD Status:ADM I N Location: [facility] [id number] [facility] <ALANA Bonilla - Last Filed: 04/23/25 21:53> History of Present Illness Chief Complaint: Fall Narrative Narrative: Patient presenting today with his due to a mechanical fall that occurred this evening. [facility] over the curb and landed on his left hip. He did not hit his head and denies LOC, he is not on any blood thinners. He has an externally rotated and shortened left lower extremity. He denies any other injury aside from left hip pain. He was not able to ambulate, EMS was called and brings him in for evaluation. He has aPMH of CKD, CHF, T2DM. [facility] <ALANA Bonilla - Last Filed: 04/23/25 21:53> [facility] Medical History COVID-19 Former smoker Degenerative disc disease, cervical Benign prostate hyperplasia Left bundle branch block Anxiety Mild cognitive impairment with memory loss Alzheimer's disease Hypertension DM2 (diabetes mellitus, type 2) HTN (hypertension) Gout Heart failure with reduced ejection fraction Hairy cell leukemia Hyperlipidemia Home Medications ?Medication ?Instructions ?Recorded ?Last Taken ?Type atorvastatin 10 mg tablet 10 mg PO QHS CHOLESTEROL 01/3104/23/25 History doxazosin 1 mg tablet 1 mg PO QHS prostate 6 04/23/25 History donepezil 5 mg tablet 10 mg PO QHS memory 11/28/17 04/23/25 History paroxetine HCl 10 mg tablet 10 mg PO DAILY anxiety 10/0504/23/25 History allopurinol 300 mg tablet 300 mg PO DAILY GOUT 8 04/23/25 History (Zyloprim) memantine 5 mg tablet 10 mg PO BID memory 05/26/21 04/22/25 History ibuprofen 200 mg capsule 200 mg PO Q4H PRN Pain 03/0504/22/25 History cholecalciferol (vitamin D3) 25 25 mcg PO DAILY ordere d 05/14/23 04/23/25 History mcg (1,000 unit) tablet losartan 50 mg tablet 50 mg PO DAILY BP 04/23/25 0 04/23/25 History Allergy/AdvReac Type Severity Reaction Status Date / Time gabapentin Allergy tremors Verified 04/23/25 20:24 metoprolol (From Toprol XL) Allergy PT UNSURE Verified 04/23/25 20:24 OF REACTION ramipril (From Altace) Allergy PT UNSURE Verified 04/23/25 20:24 OF REACTION Family History Mother Cancer Father Heart disease Hypertension Surgical History History of parathyroid surgery Hx of splenectomy History of appendectomy H/O total hip arthroplasty Social History household members: spouse Smoking Status: Former smoker alcohol intake: never substance use type: does not use ROS <ALANA Bonilla - Last Filed: 04/23/25 21:53> ROS ED Constitutional Constitutional ED: Denies chills or fever(s) Cardiovascular Cardiovascular: Denies chest pain Respiratory/Chest Respiratory/Chest: Denies dyspnea Gastrointestinal Gastrointestinal: Denies abdominal pain, nausea or vomiting Musculoskeletal Musculoskeletal: Reports arthralgias; Denies back pain or neck pain Integumentary Denies Abrasions Neurologic Neurologic: Denies paresthesias EXAM <ALANA Bonilla - Last Filed: 04/23/25 21:53> Physical Exam Const Vital Signs: 04/23/25 20:24 04/23/25 20:32 Temperature 97.9 F Temperature Source Oral Pulse Rate 58 L Respiratory Rate 16 Respiratory Effort Normal Non-Labored Blood Pressure 159/94 H Blood Pressure Mean 115 Pulse Ox 95 Oxygen Delivery Method Room Air Positive well nourished, well developed and no apparent distress General Appearance ED: well developed HEENT Reports normocephalic and head/scalp atraumatic Mouth ED: Yes moist mucous membranes normal Eyes PERRL and EOMs intact bilaterally Neck full ROM and supple General: Negative for tenderness Chest Wall inspection of chest normal and palpation of chest normal Resp normal respiratory effort and clear to auscultation bilaterally Cardio regular rate and regular rhythm GI soft to palpation, non-tender, non-distended and no masses Back/Spine normal ROM and normal to inspection Extremity Extremity Narrative: Externally rotated and shortened left lower extremity, positive logroll on the left, pain palpation to the left greater trochanter, left DP pulse 2+, good cap refill, sensation intact Neuro oriented x3, CN's II-XII intact bilaterally, moves all extremities, no focal motor deficits and no sensory deficits noted Sensorium / Orientation: awake and alert Psych mental status grossly normal and thought process normal Skin no rashes or lesions noted and no wounds <Dr. Aubrey Pascual DO - Last Filed: 04/23/25 23:35> Physical Exam Const Vital Signs: 04/23/25 20:24 04/23/25 20:32 Temperature 97.9 F Temperature Source Oral Pulse Rate 58 L Respiratory Rate 16 Respiratory Effort Normal Non-Labored Blood Pressure 159/94 H Blood Pressure Mean 115 Pulse Ox 95 Oxygen Delivery Method Room Air MDM <ALANA Bonilla - Last Filed: 04/23/25 21:53> [facility] Narrative Medical decision making narrative: Patient presenting today due to concerns for left hip pain following a mechanical fall that occurred this evening. He did not hit his head, no LOC occurred. He has a externally rotated and shortened left lower extremity concerning for hip fracture. X-ray will be obtained. He was given IV morphine and Zofran for pain. Labs will be obtained. CBC is unremarkable, potassium 5.3, creatinine 1.81 which is consistent with previous labs. X-ray of the hip shows a comminuted intertrochanteric fracture of the left femur. I spoke with Dr. Miranda, he will plan on repairing this tomorrow. I will speak with the hospitalist regarding admission. Additional preop labs/imaging will be obtained. Patient remains in stable condition. Lab Data Attestation: I reviewed the patient's lab results. Labs: Laboratory Results - last 24 hr 04/23/25 04/23/25 20:25 21:45 WBC 7.8 RBC 4.02 L Hgb 13.1 Hct 39.5 L MCV 98.3 H MCH 32.6 H MCHC 33.2 RDW Std Deviation 53.9 H RDW Coeff of Eduarda 15.1 H Plt Count 187 MPV 11.6 Immature Gran % (Auto) 0.500 Neut % (Auto) 52.0 Lymph % (Auto) 37.3 Parker % (Auto) 7.9 Eos % (Auto) 1.9 Baso % (Auto) 0.4 Absolute Neuts (auto) 4.1 Absolute Lymphs (auto) 2.91 Nucleated RBC % 0.3 PT 13.9 INR 1.1 Sodium 140 Potassium 5.3 H Chloride 107 Carbon Dioxide 23.5 Anion Gap 10 BUN 38 H Creatinine 1.81 H Estim Creat Clear Calc 28.91 L Est GFR (MDRD) Non-Af 37 L BUN/Creatinine Ratio 21.2 H Glucose 86 Calcium 8.9 Magnesium 2.3 H Radiography Diagnostic Testing: Clinical Impression(s) from Imaging Studies Hip/Pelvis X-Ray 04/23/25 21:05 IMPRESSION: Acute comminuted intertrochanteric fracture of the left femur with mild shortening and varus angulation. No additional fractures or dislocation. Reading Location: [facility] <Dr. Aubrey Pascual, - Last Filed: 04/23/25 23:35> [facility] Narrative Medical decision making narrative: Patient presenting today due to concerns for left hip pain following a mechanical fall that occurred this evening. He did not hit his head, no LOC occurred. He has a externally rotated and shortened left lower extremity concerning for hip fracture. X-ray will be obtained. He was given IV morphine and Zofran for pain. Labs will be obtained. CBC is unremarkable, potassium 5.3, creatinine 1.81 which is consistent with previous labs. X-ray of the hip shows a comminuted intertrochanteric fracture of the left femur. I spoke with Dr. Miranda, he will plan on repairing this tomorrow. I will speak with the hospitalist regarding admission. Additional preop labs/imaging will be obtained. Patient remains in stable condition. EKG: Sinus bradycardia, left bundle branch block, no ST changes. Similar to June 2021. Attending note: I have personally performed a face to face assessment of the patient and have reviewed the DEMETRIUS note. I personally made/approved the management plan and take responsibility for the patient management. I performed a substantive portion of the visit including all aspects of the following. My bentley findings include: Mechanical fall left hip injury. Brought in by EMS. No head injuries. No anticoagulants. Right hip repair from fracture [address] Parker. Exam GCS 15. Left lower extremity shortened and rotated positive logroll. Treated for pain three-view x-ray left hip and pelvis intertrochanteric fracture with displacement. 1 view preop chest x- ray inter byself elevated left hemidiaphragm. No infiltrates. EKG sinus rhythm chronic left bundle branch. Labs are stable. We discussed with orthopedist Dr. Miranda admit to medicine with planned surgical intervention tomorrow. Lab Data Labs: Laboratory Results - last 24 hr 04/23/25 04/23/25 20:25 21:45 WBC 7.8 RBC 4.02 L Hgb 13.1 Hct 39.5 L MCV 98.3 H MCH 32.6 H MCHC 33.2 RDW Std Deviation 53.9 H RDW Coeff of Eduarda 15.1 H Plt Count 187 MPV 11.6 Immature Gran % (Auto) 0.500 Neut % (Auto) 52.0 Lymph % (Auto) 37.3 Parker % (Auto) 7.9 Eos % (Auto) 1.9 Baso % (Auto) 0.4 Absolute Neuts (auto) 4.1 Absolute Lymphs (auto) 2.91 Nucleated RBC % 0.3 PT 13.9 INR 1.1 Sodium 140 Potassium 5.3 H Chloride 107 Carbon Dioxide 23.5 Anion Gap 10 BUN 38 H Creatinine 1.81 H Estim Creat Clear Calc 28.91 L Est GFR (MDRD) Non-Af 37 L BUN/Creatinine Ratio 21.2 H Glucose 86 Calcium 8.9 Magnesium 2.3 H Radiography Diagnostic Testing: Clinical Impression(s) from Imaging Studies Hip/Pelvis X-Ray 04/23/25 21:05 IMPRESSION: Acute comminuted intertrochanteric fracture of the left femur with mild shortening and varus angulation. No additional fractures or dislocation. Reading Location: [facility] Discharge Plan Dx/Rx/DC Orders Clinical Impression: Closed fracture of left hip, CKD (chronic kidney disease), Fall Disposition Disposition: Acute Care Hospital [facility] What to do if you have Problems For any increased pain, shortness of breath, bleeding, nausea or vomiting, chestpain, or any unexpected problems, contact your Primary Care Provider. Call [facility] ([phone]) or report to the closest Emergency Room. Call 911 if necessary. 04/23/252152 <Electronically signed by Margy WARNER> Cosigner Signature (if applicable): 04/23/25 2335 <Electronically signed by Aubrey Fregoso> CC: Dr. Baron Espinoza MD ~ Signed [facility] Work Phone: 1(100) 723-573105-23-2025 NoteHNO ID: [id number] Author: LORI GOODMAN, ? Service: ? Author [...] [facility]: DP and PT pulses are palpable [...] is to RTC in 3-4 months. Lori Goodman, [facility]05-23-2025 NoteHNO ID: [id number] Author: PENELOPE LOPEZ MA Service: ? Author Type: Sales Development Representative Type: Progress Notes Filed: 04/09/2025 09:23 Note Text: AMB ROOMING INTAKE FLOWSHEET DATA Risk Screening Do you have concerns about personal safety or safety in the home?: [facility]04-21-2025 Telephone encounter Note* Telephone Encounter - Shakila Quiroga APRN.CNP - 03/08/2025 11:49 AM EDT Chart reviewed. Doxazosin refilled. Shakila Quiroga APRN.PROCESS LINE OPERATOR [facility]04-21-2025 Miscellaneous Notes* Telephone Encounter - Shakila Quiroga APRN.CNP - 03/08/2025 11:49 AM EDT Chart reviewed. Doxazosin refilled. Shakila Quiroga APRN.CNP * Telephone Encounter - Niya Doran MA - 03/08/2025 11:44 AM EDT Pharmacy faxed requesting the following refill. Requested Prescriptions Pending Prescriptions Disp Refills doxazosin (CARDURA) 8 mg tablet 90 tablet 3 Sig: Take 1 tablet by mouth daily at bedtime. Dr. Gaona is not in the office. Please review medication request. Patient last appointment: 10/02/2024 Patient Phone numbers: [phone] (home) Request is for script(s) to be escript to pharmacy. Niya Doran MA documented in this encounterCoshocton [facility]04-21-2025 Telephone encounter Note * Telephone Encounter - Niya Doran MA - 03/08/2025 11:44 AM EDT Pharmacy faxed requesting the following refill. Requested Prescriptions Pending Prescriptions Disp Refills doxazosin (CARDURA) 8 mg tablet 90 tablet 3 Sig: Take 1 tablet by mouth daily at bedtime. Dr. Gaona is not in the office. Please review medication request. Patient last appointment: 10/02/2024 Patient Phone numbers: [phone] (home) Request is for script(s) to be escript to pharmacy. Niya Doran MA [facility]03-14-2025 Telephone encounter Note* Telephone Encounter - Susannah Kwong - 01/29/2025 2:37 PM EDT Last appointment 11/13/2024 Next appointment 05/17/2025 Patient [...] day. Please review and advise. Susannah Long [facility]03-14-2025 Miscellaneous Notes* Telephone Encounter - Susannah Kwong - 01/29/2025 2:37 PM EDT Last appointment 11/13/2024 Next appointment 05/17/2025 Patient [...] and advise. Susannah Long documented in this encounterCoshocton [facility] Center03-07-2025 Telephone encounter Note * Telephone Encounter - Angie Sepulveda - 01/22/2025 1:58 PM EST Prescription Refill Information The patient has been [...] Angie Sepulveda January 22, 2025 1:59 PM [facility]03-07-2025 Miscellaneous Notes* Telephone Encounter - Coco Angie Mims - 01/22/2025 1:58 PM EST Prescription Refill Information The patient has been [...] 22, 2025 1:59 PM documented in this encounterCoshocton Regional Medical Center02-21-2025 NoteHNO ID: [id number] Author: LORI GOODMAN, ? Service: ? Author [...] [facility] V[facility]: DP and PT pulses are palpable [...] to RTC in 3-4 months. Lori Goodman [facility]02-21-2025 History of Present illness Narrative* Blancolisette Lori - 01/08/2025 9:20 AM EST Last saw pcp: 11/13/24 Subjective: Patient presents [...] in 3-4 months. Lori Goodman DPM * Lashay Brooke LPN - 01/08/2025 9:16 AM EST AMB ROOMING INTAKE FLOWSHEET DATA Pain Pain Level: 7 Pain Location: Foot-Right Duration Units: Months Frequency: Intermittent Intervention/Comfort measure: Medication, Reposition, Relaxation Patient presents with: Left Foot - Established Patient, Follow Up, Diabetic Foot Care Right Foot - Established Patient, Follow Up, Diabetic Foot Care Lashay Brooke LPN documented in this encounterCoshocton Regional Medical Center02-21-2025 Instructions* Patient Instructions* Lori Goodman - 01/08/2025 9:20 AM EST [...] or sore from your shoes, do not "pop" it. Apply a bandage and wear a differentpair of shoes. Take Care of Your Toenails Cut toenails after bathing, when they are soft. Cut toenails straight across and smooth with a nail file. Avoid cutting into the corners of toes. Do not cut cuticles. If you have neuropathy (or decreased sensation in your feet) a billing analyst should always cut your toenails. Be Careful [...] your shoes are too tight. Perform the "footwear test" described below. Footwear Test Use this simple [...] Go to your health care provider or billing analyst to treat these conditions. documented in this encounterCoshocton Regional Medical Center02-21-2025 NoteHNO ID: [id number] Author: LASHAY BROOKE LPN Service: ? Author Type: LICENSED NURSE Type: Progress Notes Filed: 01/08/2025 09:32 Note Text: AMB ROOMING INTAKE FLOWSHEET DATA Pain Pain Level: 7 Pain Location: Foot-Right Duration Units: Months Frequency: Intermittent Intervention/Comfort measure: Medication, Reposition, Relaxation Patient presents with: Left Foot - Established Patient, Follow Up, Diabetic Foot Care Right Foot - Established Patient, Follow Up, Diabetic Foot Care [facility] Telephone encounter Note* Telephone Encounter - Mirlande Keyes RN - 11/17/2024 9:35 AM EST Patient notified of results and provider's instructions. Patient verbalizes understanding. Mirlande Keyes RN [facility]12-31-2024 Miscellaneous Notes* Telephone Encounter - Mirlande Keyes RN - 11/17/2024 9:35 AM EST Patient notified of results and provider's instructions. Patient verbalizes understanding. Mirlande Keyes RN * Telephone Encounter - Nicole Bass LPN - 11/16/2024 3:57 PM EST Left message for to call and speak with nurse. * Telephone Encounter - Baron Espinoza MD - 11/16/2024 11:55 AM EST His kidney function is better but still pretty low. Given his protein in his urine. Recommend he follow with nephrology documented in this encounterCoshocton Regional Medical Center12-30-2024 Telephone encounter Note * Telephone Encounter - Nicole Bass LPN - 11/16/2024 3:57 PM EST Left message for to call and speak with nurse. [facility]12-30-2024 Telephone encounter Note* Telephone Encounter - Baron Espinoza MD - 11/16/2024 11:55 AM EST His kidney function is better but still pretty low. Given his protein in his urine. Recommend he follow with nephrology [facility]12-27-2024 Instructions* Patient Instructions* Baron Espinoza MD - 11/13/2024 10:39 AM EST No more driving-per Dr Espinoza documented in this encounterCoshocton Regional Medical Center12-27-2024 NoteHNO ID: [id number] Author: BARON ESPINOZA MD Service: ? 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 Atherosclerosis of [place] coronary artery of [place] heart without angina pectoris - ICD9: 414.01, [...] diabetes mellitus with other specified complication, without long- term current use of insulin (HCC) - ICD9: [...] ICD9: 274.9, ICD10: M10.9 - URIC ACID Baron Espinoza RTO in six months and prn. documented in this encounterCoshocton Regional Medical Center11-27-2024 Telephone encounter Note * Telephone Encounter - Christina Burgess LPN - 10/14/2024 3:39 PM EST Pt scheduled for Physical 11-13-24. Christina Burgess LPN [facility]11-27-2024 Miscellaneous Notes* Telephone Encounter - Christina Burgess LPN - 10/14/2024 3:39 PM EST Pt scheduled for Physical 11-13-24. Christina Burgess LPN * Telephone Encounter - Baron Espinoza MD - 10/14/2024 2:16 PM EST Needs follow up with one of us * Telephone Encounter - Dorinda Ponce - 10/14/2024 10:35 AM EST Prescription Refill Information The patient has been [...] 14, 2024 10:35 AM documented in this encounterCoshocton Regional Medical Center11-27-2024 Telephone encounter Note * Telephone Encounter - Baron Espinoza MD - 10/14/2024 2:16 PM EST Needs follow up with one of us [facility]11-27-2024 Telephone encounter Note* Telephone Encounter - Dorinda Ponce - 10/14/2024 10:35 AM EST Prescription Refill Information The patient has been [...] Dorinda Long October 14, 2024 10:35 AM [facility] Work Phone: 1(224) 776-658011-15-2024 Instructions* Patient Instructions* Dung Gaona MD - 10/02/2024 10:44 AM EST INSTRUCTIONS FROM DR. GAONA: make sure to hydrate well I will see you in 12 months documented in this encounterCoshocton Regional Medical Center11-15-2024 Nurse Note* Niya Doran MA - 10/02/2024 10:33 AM EST patient declined weigher operator [facility]11-15-2024 Nurse Note* Niya Doran MA - 10/02/2024 10:33 AM EST patient declined weigher operator documented in this encounterCoshocton Regional Medical Center11-15-2024 NoteHNO ID: [id number] Author: DUNG GAONA MD Service: ? Author Type: Physician [...] the Proscar as has low residual urine Brayd the Cardura and he can address with [...] Proscar 5 mg June 29, 2015-seen by [facility] urology- 1 year follow-up previous prostate biopsy 1 year ago was negative. Feels fantastic. No nausea vomiting diarrhea fevers chills or weight loss. No blood pressures consistent with blood in urine. His P's XE Edita 4.2.8. Happy with his clinical status. I reviewed his previous negative biopsy. RADS: May 23, [id number] 2023-Cystoscopy/ultrasound prostate-volume 37.7 cc without enlarged middle [...] learn intermittent catheterization May 10, 2014-ultrasound/biopsy of prostate-[facility] urology--- Volume 57 cc Creatinine Date Value Ref Range Status 12/26/2023 3.41 (H) 0.73 - 1.22 mg/dL Final PSA (ng/mL) Date Value 01/09/2021 4.43 01/12/2019 3.30 07/18/2017 3.05 08/21/2016 2.69 04/19/2016 2.80 06/13/2015 2.83 02/02/2015 2.72 04/08/2014 3.60 01/12/2013 3.00 12/14/2006 2.09 PSA Scree (more content not included)...[facility]11-15-2024 History of Present illness Narrative* Dung Gaona MD - 10/02/2024 10:29 AM EST ESTABLISHED PATIENT OFFICE VISIT PATIENT INFO: Michael [...] again discussed option of stopping the Cardura andhe sees his primary physician in a few [...] Proscar 5 mg June 29, 2015-seen by [facility] urology- 1 year follow-up previous prostate biopsy 1 year ago was negative. Feels fantastic. No nausea vomiting diarrhea fevers chills or weight loss. No blood pressures consistent with blood in urine. His P's XE Edita 4.2.8. Happy with his clinical status. I reviewed his previous negative biopsy. RADS: May 23, [id number] 2023-Cystoscopy/ultrasound prostate-volume 37.7 cc without enlarged middle [...] learn intermittent catheterization May 10, 2014-ultrasound/biopsy of prostate-[facility] urology--- Volume 57 cc Creatinine Date [...] Date Value 03/10/2023 Negative 01/06/2010 neg Specific Hendricks, Ur (no units) Date Value 03/10/2023 1.010 [...] stenosis Vitreous hemorrhage (HCC) 2015 left eye FAMILY HISTORY Problem Relation [...] mouth every 6 hours as neededfor pain. IFEREX 150 150 mg iron capsule [...] needed. (Patient not taking: Reported on 12/09/2023) woelryi-skhbrqvwt-igoojhh D3 (CALCIUM 500+D) 500 mg-5 mcg (200 [...] bladder emptying - ICD9: 788.21, ICD10: R33.9 Dung Gaona The sensitive exam: The sensitive examination was discussed with the Patient or Patient's Authorized Ranch Hand Supervisor. Asapplicable, any other physician, advance practice provider, medical student, or other health professional student that will be observing or involved in the sensitive examination for educational or training purposes was discussed with the Patient or Authorized [place] Supervisor. The Patient or Authorized Ranch [place] Supervisor has agreed to proceed with the sensitive examination. (Sensitive examination includes inspection and/or palpation of the breasts, pelvis, prostate and anorectal regions) Please note: This note has been produced using speech recognition software and may contain errors related to that system including grammar, punctuation, spelling, gender and words and phrases that may be inappropriate. documented in this encounterCoshocton Regional Medical Center11-11-2024 NoteHNO ID: [id number] Author: LORI GOODMAN, ? Service: ? Author [...] Objective: Patient presents to clinic ambulating in [facility] Vasc: DP and PT pulses are [...] to RTC in 3-4 months. Lori Goodman [facility]11-11-2024 History of Present illness Narrative* Lori Goodman - 09/28/2024 10:18 PM EST Last saw pcp: 11/06/23 Subjective: Patient presents [...] Objective: Patient presents to clinic ambulating in sneaker Vasc: DP and PT pulses are palpable [...] in 3-4 months. Lori Goodman DPM * Lashay Brooke LPN - 09/28/2024 2:20 PM EST AMB ROOMING INTAKE FLOWSHEET DATA Patient presents with: Left Foot - Established Patient, Follow Up, Diabetic Foot Care Right Foot - Established Patient, Follow Up, Diabetic Foot Care Lashay Brooke LPN documented in this encounterCoshocton Regional Medical Center11-11-2024 NoteHNO ID: [id number] Author: LASHAY BROOKE LPN Service: ? Author Type: LICENSED NURSE Type: Progress Notes Filed: 09/28/2024 22:22 Note Text: AMB ROOMING INTAKE FLOWSHEET DATA Patient presents with: Left Foot - Established Patient, Follow Up, Diabetic Foot Care Right Foot - Established Patient, Follow Up, Diabetic Foot Care [facility]08-13-2024 Telephone encounter Note* Telephone Encounter - Selena Hoffman LPN - 06/30/2024 2:58 PM EDT Left detailed message on voicemail to return call and schedule. [facility]08-13-2024 Miscellaneous Notes* Telephone Encounter - Selena Hoffman LPN - 06/30/2024 2:58 PM EDT Left detailed message on voicemail to return call and schedule. * Telephone Encounter - Baron Espinoza MD - 06/30/2024 2:39 PM EDT Due for check up with myself, Bisi or Felisa * Telephone Encounter - Skye Arnold - 06/30/2024 2:14 PM EDT Prescription Refill Information The patient has been [...] 30, 2024 2:15 PM documented in this encounterCoshocton Regional Medical Center08-13-2024 Telephone encounter Note * Telephone Encounter - Baron Espinoza MD - 06/30/2024 2:39 PM EDT Due for check up with myself, Bisi or Felisa [facility]08-13-2024 Telephone encounter Note* Telephone Encounter - Skye Arnold - 06/30/2024 2:17 PM EDT Patient requesting medication that is : losartan (COZAAR) 50 mg tablet ( Last office visit: 05-20-24 Future appt scheduled: No PHARMACY: [facility]08-13-2024 Miscellaneous Notes* Telephone Encounter - Skye Arnold - 06/30/2024 2:17 PM EDT Patient requesting medication that is : losartan (COZAAR) 50 mg tablet ( Last office visit: 05-20-24 Future appt scheduled: No PHARMACY: [facility] documented in this encounterCoshocton Regional Medical Center08-13-2024 Telephone encounter Note * Telephone Encounter - Skye Arnold - 06/30/2024 2:14 PM EDT Prescription Refill Information The patient has been [...] Skye Arnold June 30, 2024 2:15 PM [facility]07-09-2024 NoteHNO ID: [id number] Author: LORI GOODMAN, ? Service: ? Author [...] to RTC in 3-4 months. Lori Goodman [facility]07-09-2024 History of Present illness Narrative* Lori Goodman - 05/26/2024 8:23 AM EDT Last saw pcp: 05/20/23 Subjective: Patient presents [...] in 3-4 months. Lori Goodman DPM * Elgin Mayo RN - 05/26/2024 8:03 AM EDT Patient presents with: Left Foot - Established Patient, Follow Up, Diabetic Foot Care Right Foot - Established Patient, Follow Up, Diabetic Foot Care Patient presents for follow up diabetic foot/nail care. [facility] 02/20/24 documented in this encounterCoshocton Regional Medical Center07-09-2024 NoteHNO ID: [id number] Author: ELGIN MAYO RN Service: ? Author Type: Registered Nurse Type: Progress Notes Filed: 05/26/2024 08:25 Note Text: Patient presents with: Left Foot - Established Patient, Follow Up, Diabetic Foot Care Right Foot - Established Patient, Follow Up, Diabetic Foot Care Patient presents for follow up diabetic foot/nail care. [facility] 02/20/24[facility]05-07-2024 Telephone encounter Note* Telephone Encounter - Luzmaria Jaime MA - 03/24/2024 1:59 PM EDT Left message for patient spouse to call back and speak to NURSE on TRIAGE. Please verify what med needs refilled? Patient has never been on metformin or ever had diabetic dx. Spouse (annemarie) is on metfromin, is she looking at her own rx and needing refill for herself? Luzmaria Jaime MA [facility]05-07-2024 Miscellaneous Notes* Telephone Encounter - Luzmaria Jaime MA - 03/24/2024 1:59 PM EDT Left message for patient spouse to call back and speak to NURSE on TRIAGE. Please verify what med needs refilled? Patient has never been on metformin or ever had diabetic dx. Spouse (annemarie) is on metfromin, is she looking at her own rx and needing refill for herself? Luzmaria Jaime MA * Telephone Encounter - Skye Arnold - 03/24/2024 1:36 PM EDT Patient's spouse requesting metFORMIN (GLUCOPHAGE) 500 mg tablet which is no longer on patient list. [facility] documented in this encounterCoshocton Regional Medical Center05-07-2024 Telephone encounter Note * Telephone Encounter - Skye Arnold - 03/24/2024 1:42 PM EDT Patient has been identified by [...] found Please advise. Thank you. Skye Arnold. [facility]05-07-2024 Miscellaneous Notes* Telephone Encounter - Skye Arnold - 03/24/2024 1:42 PM EDT Patient has been identified by [...] Thank you. Skye Arnold. documented in this encounterCoshocton Regional Medical Center05-07-2024 Telephone encounter Note * Telephone Encounter - Skye Arnold - 03/24/2024 1:36 PM EDT Patient's spouse requesting metFORMIN (GLUCOPHAGE) 500 mg tablet which is no longer on patient list. [facility]04-23-2024 Telephone encounter Note* Telephone Encounter - Dayron Torres LPN - 03/10/2024 10:01 AM EDT SAMANTHA: 10/07/2023 NOV: 10/06/2024 Patient phones requesting refills as follows: Requested Prescriptions Pending Prescriptions Disp Refills doxazosin (CARDURA) 8 mg tablet [Pharmacy Med Name: DOXAZOSIN MESYLATE 8 MG TAB] 90 tablet 3 Sig: take 1 tablet by mouth at bedtime Please review and advise. Dayron Torres LPN [facility]04-23-2024 Miscellaneous Notes* Telephone Encounter - Dayron Torres LPN - 03/10/2024 10:01 AM EDT SAMANTHA: 10/07/2023 NOV: 10/06/2024 Patient phones requesting refills as follows: Requested Prescriptions Pending Prescriptions Disp Refills doxazosin (CARDURA) 8 mg tablet [Pharmacy Med Name: DOXAZOSIN MESYLATE 8 MG TAB] 90 tablet 3 Sig: take 1 tablet by mouth at bedtime Please review and advise. Dayron Torres LPN documented in this encounterCoshocton Regional Medical Center04-04-2024 History of Present illness Narrative* Lori Goodman - 02/20/2024 8:09 AM EDT Last saw pcp: 05/20/23 Subjective: Patient presents [...] [facility] V[facility]: DP and PT pulses are palpable [...] in 3-4 months. Lori Goodman DPM * Lashay Brooke LPN - 02/20/2024 8:06 AM EDT AMB ROOMING INTAKE FLOWSHEET DATA [...] care Lashay Brooke LPN documented in this encounterCoshocton Regional Medical Center04-04-2024 Instructions* Patient Instructions* Lori Goodman - 02/20/2024 8:09 AM EDT Diabetes Foot [...] or sore from your shoes, do not "pop" it. Apply a bandage and wear a differentpair of shoes. Take Care of Your Toenails Cut toenails after bathing, when they are soft. Cut toenails straight across and smooth with a nail file. Avoid cutting into the corners of toes. Do not cut cuticles. If you have neuropathy (or decreased sensation in your feet) a billing analyst should always cut your toenails. Be Careful [...] your shoes are too tight. Perform the "footwear test" described below. Footwear Test Use this simple [...] Go to your health care provider or billing analyst to treat these conditions. documented in this encounterCoshocton Regional Medical Center03-04-2024 Miscellaneous Notes* Telephone Encounter - Marisol Birmingham Ma - 01/20/2024 12:43 PM EST Left message for patient to return call. Marisol Birmingham Ma * Telephone Encounter - Selena Velásquez APRN.[employer] PORTAL DEVELOPER - 01/20/2024 12:37 PM EST Please let patient know that kidney function has worsened significantly. 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 Please stop naproxen immediately, metformin immediately. Drink 64 ounces of water daily to flush his kidneys Repeat renal panel on Saturday. * Telephone Encounter - Selena Velásquez APRN.CNS - 01/20/2024 12:31 PM EST Please let patient know that kidney function has worsened significantly. 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 Please stop naproxen immediately, metformin immediately. Drink 64 ounces of water daily to flush his kidneys Repeat renal panel on Saturday. * Telephone Encounter - Perlita Maurice RN - 01/20/2024 10:[address] Holly, could Dr. Espinoza please review pt's CMP done on 12-26-23? His BUN was elevated (49). Thank you. Perlita Maurice, RN documented in this encounterCoshocton Regional Medical Center02-14-2024 History of Present illness Narrative* Dmitry Painting MD - 01/01/2024 8:49 AM EST Assessment and Plan 1. Left posterior capsular opacification 2. Pseudophakia Michael Avery Terence has confirmed that he is no longer [...] laser posterior capsulotomy were discussed with Michael Grecolouisajo-ann in detail. he appeared to understand and [...] and plan as stated above and agree withall of its relevant components. Dmitry Painting MD January 01, 2024 8:49 AM documented in this encounterCoshocton Regional Medical Center02-14-2024 Instructions* Patient Instructions* Dmitry Painting MD - 01/01/2024 8:49 AM EST Images from the original note were not included. documented in this encounterCoshocton Regional Medical Center11-20-2023 NoteHNO ID: [id number] Author: Dung Gaona MD Service: ? Author Type: Physician [...] Proscar 5 mg June 29, 2015-seen by [facility] urology- 1 year follow-up previous prostate biopsy 1 year ago was negative. Feels fantastic. No nausea vomiting diarrhea fevers chills or weight loss. No blood pressures consistent with blood in urine. His P's XE Edita 4.2.8. Happy with his clinical status. I reviewed his previous negative biopsy. RADS: May 23, [id number]-benign 2023-Cystoscopy/ultrasound prostate-volume 37.7 cc without enlarged middle [...] learn intermittent catheterization May 10, 2014-ultrasound/biopsy of prostate-[facility] urology--- Volume 57 cc Creatinine Date [...] Ketones, Urine (no units (more content not included)...[facility]09-14-2023 Miscellaneous Notes* Telephone Encounter - Andie Gonzalez - 08/01/2023 9:14 AM EDT Patient has been identified by name and date of : Yes Requested Prescriptions Pending Prescriptions Disp Refills memantine (NAMENDA) 10 mg tablet 90 tablet 3 Sig: Take 1 tablet by mouth twice daily. SAMANTHA:05-20-23 No appt scheduled. RX INSTRUCTIONS: Patient aware RX will be sent to pharmacy. No need to notify patient. Andie Gonzalez documented in this encounterCoshocton [facility] Center07-13-2023 Nurse Note* Elgin Orellana - 05/30/2023 3:18 PM EDT Patient is back in for a PVR after having his catheter removed this AM for a voiding trial. Patientstated that he was able to urinate multiple times without difficulty. PVR result was - 98 ml Patient instructed that if he has any sudden pain or inability to urinate he is to contact this office ([phone]) during the hours of 08:00 to 16:00. If after those hours, to go to the emergency room. Patient voiced understanding of all instructions. Elgin Orellana RN documented in this encounterCoshocton Regional Medical Center07-13-2023 Nurse Note* Elgin Orellana - 05/30/2023 9:15 AM EDT Patient presents for trial of voiding. Bladder filled with 250 cc of sterile water (as much as pt could tolerate), balloon deflated, craig catheter removed without difficulty, balloon intact. Patientvoided 25 cc's of pink-tinged urine. Pt had to have a BM and states more urine was passed but unable to measure. Pt is to return to office this afternoon for a PVR check. Elgin Orellana RN documented in this encounterCoshocton Regional Medical Center07-10-2023 Nurse Note* Elgin Orellana - 05/27/2023 2:16 PM EDT Pt in office today c/o catheter not draining since 10 pm last night. No urine noted in tubing or drainage bag. Craig catheter irrigated with sterile water. Immediate return of dark brown urine with clots noted. Craig drained of 1000 ml. Catheter irrigated with sterile water until clear/yellow. Pt scheduled for voiding trial this . Discussed with and will monitor urine and okay todo VT on . Elgin Orellana RN documented in this encounterCoshocton Regional Medical Center07-03-2023 Miscellaneous Notes* Telephone Encounter - Bianka Gan - 05/20/2023 4:26 PM EDT Clearance form scanned into pt's chart. Bianka Gan * Telephone Encounter - Christina Jain - 05/20/2023 4:[address] Paige signed form and it was faxed back. Christina Jain * Telephone Encounter - Celena Philippe RN - 05/20/2023 1:49 PM EDT Bianka, home health scheduler from Dr. Gaona's urology called stating pt's PCP would like cardiac clearance, if possible, before pt has TURP on . Bianka has already faxed form to [place] office and was told additionally to send to [place] office. RN informed Bianka that Dr. Holly is not in the office today. Bianka can be reached at [phone] for further discussion. Thank you. Janna Philippe RN * Telephone Encounter - Selena Hoffman LPN - 05/14/2023 12:16 PM EDT Form received. Holding for appointment. * Telephone Encounter - Milagro Sheriff RN - 05/14/2023 11:48 AM EDT Bianka from Dr. Gaona's office in Urology calling and states she will be faxing over a medical clearance form to PCP office for review and completion at pt's 05/[address] Espinoza, if able. Pt is scheduled to have TURP completed 05/23/23. Please contact Bianka or patient if any questions or for information. Milagro Sheriff RN documented in this encounterCoshocton Regional Medical Center07-03-2023 History of Present illness Narrative* Baron Espinoza MD - 05/20/2023 11:20 AM EDT Patient presents with: Medical Clearance HPI: Patient presents today for office visit for pre-op clearance. He is scheduled for a Cystoscopy, TURP at [facility] on 05/23/[address] Gaona. Seeing Hem/Onc on 05/14/23 Labs done. Iron was low. Had infusion on 05/16/23. He'll have another infusion after TURP surgery. Sees Dr Holly, cardiology for his CAD and cardiomyopathy. Has a chronic LBBB No current chest pain or shortness of breath. No edema. No bleeding or bruising issues. His naproxen is on hold. No hx of beal. No personal or family hx of anesthetic [...] tablet by mouth every hour as needed. 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 4. Atherosclerosis of [place] coronary artery of [place] heart without angina pectoris - ICD9: 414.01, [...] symptoms present - ICD9: 600.00, ICD10: N40.0 Baron Espinoza MD documented in this encounterCoshocton Regional Medical Center06-28-2023 Miscellaneous Notes* Telephone Encounter - Bianka Gan - 05/15/2023 12:08 PM EDT Pt's Kyleigh notified. Bianka Gan * Telephone Encounter - Dung Gaona MD - 05/15/2023 11:44 AM EDT It is safe He will be fine * Telephone Encounter - Mirlande Saleem Cma - 05/15/2023 10:59 AM EDT Patient called stating patients sees hematology oncology for history of leukemia. ([phone])has order an iron infusion for next week due to iron deficiency. Patients is concerned because he is scheduled for surgery with you next week and was told he had to stop iron tablets for surgery. Is it safe for iron infusion in the same week of surgery? documented in this encounterCoshocton Regional Medical Center06-28-2023 Miscellaneous Notes* Telephone Encounter - Bianka Gan - 05/15/2023 11:05 AM EDT Pt's Kyleigh notified. Bianka Gan * Telephone Encounter - Dung Gaona MD - 05/15/2023 10:10 AM EDT Inform that + Sent bactrim to pharm for him to start at least by fri documented in this encounterCoshocton Regional Medical Center06-23-2023 History and physical note * Melissa Mendez APRN.PROCESS LINE OPERATOR - 05/10/2023 8:00 AM EDT Images from the original note were not included. HISTORY AND PHYSICAL EXAMINATION SERVICE DATE: 05/10/2023 SERVICE TIME: 8:00 AM PRIMARY CARE PHYSICIAN: Baron Espinoza MD REASON FOR VISIT: Michael Mullins is a 83 year old male who is scheduled for Procedure(s): TURP COMPLETE (N/A) CYSTOSCOPY (N/A) at the request of Dr. Dung Gaona for routine H&P. My final recommendation [...] Microalbuminuria, Without Long-Term Current Use of Insulin(Hcc) Cardiomyopathy, Nonischemic (Hcc) Elevated Alkaline Phosphatase Level Type 2 Diabetes Mellitus, Without Long-Term Current Use of Insulin (Hcc) Joelle (Iron Deficiency Anemia) After Care Nocturia Poor Urinary Stream Pre-Op Examination Retention of Urine, Unspecified COVID-19 Immunization Status COVID-19 VACCINE (Series Information) Completed 11/15/2022 Imm Admin: COVID-19 vaccine, age 12+ yr, bivalent (PFIZER-BIONTECH) 09/15/2021 Imm Admin: COVID-19 original vaccine, age 12+ yr, monovalent (PFIZER- BIONTM[employer], [employer] - PURPLE TOP) 02/04/2021 Outside Immunization: Covid [...] difficulty with urination. He was admitted to [facility] due to weakness when he was found [...] to the pressure being painful but is nothaving much success. Denies any recent fever or [...] complication, without long-term current use of insulin ([facility]) 07/24/2016 Degenerative disc disease, cervical 12/09/2015 Depression Diabetes mellitus (HCC) 07/14/2010 Elevated alkaline phosphatase level 01/10/2021 01/09/21 alk phos 142 Gout 08/25/2012 High cholesterol History of splenectomy 02/07/2015 Hypertension Inguinal hernia 04/08/2014 LBBB (left bundle branch block) Leukemia in remission ([facility]) Lumbar disc disease with radiculopathy 04/06/2013 Mental [...] by mouth every hour as needed. Yes gpbiguq-ivrnlcsph-dnwqswr D3 (CALCIUM 500+D) 500 mg-5 mcg (200 unit) per tablet Take 1 tablet by mouth three times daily with meals. Yes acetaminophen (TYLENOL EXTRA STRENGTH) 500 mg tablet Take 1 tablet by mouth every 6 hours as neededfor pain. Yes memantine (NAMENDA) 10 mg tablet [...] Positive for abnormal gait and limb weakness. Limbweakness located left LE and right LE. PAIN ASSESSMENT: Pain Pain Level: 0 VITALS: BP 135/68 Pulse 60 Temp 97.7 Resp 18 Ht 5' 4" (1.63m) Wt 135 lb (61.2kg) SpO2 98% BMI23.16 kg/(m^2). Diagnostic tests reviewed for today's visit: [...] 486 QTC Calculation (Bazett) 464 Calculated P [place] 38 Calculated R [place] -31 Calculated T [place] 137 Impression SINUS BRADYCARDIA LEFT AXIS DEVIATION COMPLETE LEFT BUNDLE BRANCH BLOCK ABNORMAL ECG Confirmed by DAYRON HUYNH DO ([id number]) on 02/20/2023 4:19:35 PM Recent Results (from the past 65078 hour(s)) ECHO Collection Time: 11/21/21 1:46 PM [...] mellitus, without long-term current use of insulin ([facility]) Metformin. Instructed patient to hold medication morning [...] BMP, CBC, and urine culture ordered in [facility] per surgeon. Patient's given sterile urine specimen cup and biohazard bag and will get urine specimen at home and take to [place] lab due to patient needing to self catheterize. states that they will complete this on Saturday05/13/23 when patient has another appointment at [place] that day. Implantable Devices: bilateral IOLs, and hardware in neck and back Assessment/Plan BPH with obstruction/lower urinary tract symptoms [N40.1, N13.8] Retention of urine, unspecified [R33.9] PLAN Planned Procedure: Procedure(s): TURP COMPLETE (N/A) CYSTOSCOPY (N/A) I spent a total of 50 minutes on the date of the service which included preparing to see the patient, tzfe-zw-wbmr patient care, completing clinical documentation, obtaining and/or [...] 8:00 AM PAGER/CONTACT #: documented in this encounterCoshocton Regional Medical Center06-20-2023 Instructions* Patient Instructions* Melissa Mendez APRN.PROCESS LINE OPERATOR - 05/07/2023 2:45 PM EDT PATIENT PREOPERATIVE INSTRUCTIONS Your surgeon has scheduled for your procedure at this surgery center: [facility]: [phone], [address] [phone] Please enter through the main entrance and [...] a Saturday surgery they will call you Saturdayfor your arrival time. - Please be aware that emergency situations arise, which may delay or change your surgical time. Ifthis happens, we will notify you as soon [...] pain medications that do not contain aspirin orNSAIDS as needed. IF YOU TAKE ANY OF [...] or the morning of surgery. Use the Hibiclens body wash supplied to you along with [...] surgery. - YOU MUST HAVE A RESPONSIBLE MUSIC WRITER TAKE YOU HOME. A SOCIAL SERVICE AGENCY DIRECTOR, CAB OR UBER MUSIC WRITER CANNOT BE MADEA RESPONSIBLE MUSIC WRITER. - You cannot stay in a hotel alone after outpatient surgery. You will not be permitted to have yoursurgery, if you do not have someone to [...] but if you wish to bring undergarments forafter surgery you may. Current Outpatient Medications on [...] needed. Hold 7 days prior to surgery wcmrgxh-epanolfob-bfqlujg D3 (CALCIUM 500+D) 500 mg-5 mcg (200 unit) per tablet Take 1 tablet by mouth three times daily with meals. Hold 7 days prior to surgery acetaminophen (TYLENOL EXTRA STRENGTH) 500 mg tablet Take 1 tablet by mouth every 6 hours as neededfor pain. Ok to continue taking memantine (NAMENDA) [...] Melissa Mendez APRN.CNP 05/10/23 documented in this encounterCoshocton Regional Medical Center06-20-2023 History of Past illness Narrative* Problem Noted [...] of this encounter (statuses as of 05/20/2023) [facility]06[facility] of Past illness Narrative* Problem Noted [...] of this encounter (statuses as of 05/21/2023) [facility]06[facility] of Past illness Narrative* Problem Noted [...] of this encounter (statuses as of 05/28/2023) [facility]06[facility] of Past illness Narrative* Problem Noted [...] of this encounter (statuses as of 05/30/2023) [facility]06[facility] History of Past illness Narrative* Problem Noted [...] of this encounter (statuses as of 05/31/2023) [facility] of Past illness Narrative* Problem Noted [...] of this encounter (statuses as of 08/01/2023) [facility] of Past illness Narrative* Problem Noted [...] of this encounter (statuses as of 01/01/2024) [facility]06[facility] of Past illness Narrative* Problem Noted Date Diagnosed Date Resolved Date Pre-op examination 05/07/2023 Last Assessment & Plan: see note for medical conditions which may affect bertha-operative course that were addressed at today's visit. Shortness of breath 10/30/2021 03/25/20 Personal history of fall 07/28/202006/2023 Last Assessment & Plan: Assessment: hx, uses cane LBBB (left bundle branch block) 06/03/2018 03/25/2023 Last Assessment & Plan: Assessment: hx, per EKG, follows cardiology documented as of this encounter (statuses as of 01/20/2024) [facility] of Past illness Narrative* Problem Noted Date Diagnosed Date Resolved Date Pre-op examination 05/07/2023 Last Assessment & Plan: see note for medical conditions which may affect bertha-operative course that were addressed at today's visit. Shortness of breath 10/30/2021 03/25/20 Personal history of fall 07/28/202006/2023 Last Assessment & Plan: Assessment: hx, uses cane LBBB (left bundle branch block) 06/03/2018 03/25/2023 Last Assessment & Plan: Assessment: hx, per EKG, follows cardiology documented as of this encounter (statuses as of 02/20/2024) [facility]06-16-[facility]23 Miscellaneous Notes* Telephone Encounter - Bianka Gan - 05/03/2023 2:05 PM EDT Pt is scheduled for Cysto, TURP with Dr Gaona at [facility] on 05/23/23 @ 11:45 (9:45 arrival). PAT and labs on 05/10/23 @ 8:00 at [facility]. Medical clearance request faxed to pt's pcp Dr Baron Espinoza, [phone], on 05/03/23. 1 week pvr check with nurse at [place] on 05/30/23 @ 8:30. [address] Gaona on 06/07/23 @ 9:30. Pt and given date, time, prep and arrival instructions in person on 05/03/23. Written info given also. Bianka Gan documented in this encounterCoshocton Regional Medical Center06-16-2023 Instructions* Patient Instructions* Dung Gaona MD - 05/03/2023 10:55 AM EDT [...] prostate cancer in its early stages, the [place] [employer] and the [place] [employer] recommend a screening every year for men ages 50 to 70. They further recommend that men who are at high risk -- such as -[place] men and men with a family history [...] get worse. This approach is sometimes called "watchful waiting" or surveillance. There are a number of [...] and hemostasis is achieved with electrocautery. Graphic 01204 Version 1.0 2020 [employer] and/or its affiliates. All Rights Reserved. documented in this encounterCoshocton Regional Medical Center06-16-2023 History of Present illness Narrative* Dung Gaona MD - 05/03/2023 10:42 AM EDT [...] arrange the testing and consult Lorenzo Carballo, [facility] [place], [facility]-C June 23, 2021-seen by Lorenzo Carballo- Patient here for 1 year follow-up. Feels fantastic. No voiding complaints. PSA - pending . Very stable. Patient prefers conservative management.has not take Proscar 5 mg for some time now Restart Proscar 5 mg June 29, 2015-seen by [facility] urology- 1 year follow-up previous prostate [...] learn intermittent catheterization May 10, 2014-ultrasound/biopsy of prostate-[facility] urology--- Volume 57 cc Creatinine Date [...] Date Value 03/10/2023 Negative 01/06/2010 neg Specific [place], Ur (no units) Date Value 03/10/2023 1.010 [...] tablet by mouth every hour as needed. hyhydbs-ucfuhgdaz-ijhjoss D3 (CALCIUM 500+D) 500 mg-5 mcg (200 [...] and dysuria. Risk of anesthesia complications, stroke, NV, etc.The patient expressed an understandingwith regard to possible complications and outcome. FOLLOW UP (1s&1w; 3s): Return if symptoms worsen or fail to improve. ASSESSMENT/PLAN: 1. Benign prostatic hyperplasia with urinary retention - ICD9: 600.01, 788.20, ICD10: N40.1, R33.8 (primary diagnosis) [facility]-TURP 2. Poor urinary stream - ICD9: 788.62, ICD10: R39.12 Dung Gaona Please note: This note has been produced using speech recognition software and may contain errors related to that system including grammar, punctuation, spelling, gender and words and phrases that may be inappropriate. documented in this encounterCoshocton Regional Medical Center06-14-2023 Miscellaneous Notes* HH PT DISCHARGE - Jennifer Clark, PT - [...] anymore BACKGROUND: Diagnoses (reason for Home Care): [facility]- for weakness then transferred to [facility] 03/08/2023 - 03/18/2023. UTI ,MOISES Weight [...] summary for intervention/education details. documented in this encounterCoshocton Regional Medical Center06-08-2023 Miscellaneous Notes* PT ROUTINE/REASSESSMENT/RECERT/CASE MGMT - Jade Echevarria PTA - 04/25/2023 11:15 AM EDT SITUATION: only patient present during today's visit. patient reports the following since the last homecare visit: medications/allergies--no changes, no fall. patient reports he feels like his legs are getting stronger. BACKGROUND: Diagnoses (reason for Home Care): [facility]- for weakness then transferred to [facility] 03/08/2023 - 03/18/2023. UTI ,MOISES Weight [...] summary for intervention/education details. documented in this encounterCoshocton Regional Medical Center06-06-2023 Miscellaneous Notes* Telephone Encounter - Marisol Birmingham Ma - 04/23/2023 1:25 PM EDT Detailed message left for Cori * Telephone Encounter - Baron Espinoza MD - 04/23/2023 12:19 PM EDT ok * Telephone Encounter - Michelle Yusuf RN - 04/23/2023 11:59 AM EDT Cori- PT- [facility]- asking for verbal order to extend PT 2 x week for 2 more weeks. documented in this encounterCoshocton Regional Medical Center06-02-2023 Miscellaneous Notes* PT ROUTINE/REASSESSMENT/RECERT/CASE MGMT - Cori Chowdhury, PT - 04/19/2023 4:08 PM EDT SITUATION: [...] reps BACKGROUND: Diagnoses (reason for Home Care): [facility]- [facility] weakness [facility] UTI ,MOISES Weight Bearing/Precaution [...] summary for intervention/education details. documented in this encounterCoshocton Regional Medical Center06-02-2023 Miscellaneous Notes* Telephone Encounter - Harinder Isaac RN - 04/19/2023 8:[address] Baron Espinoza, Patient has been discharged per skilled home health nurse as a discipline discharge for home healthcare. Patient is still being seen per home therapy. Thank you for choosing [facility] for [facility] to serve your patient's home careneeds. Harinder Isaac RN documented in this encounterCoshocton Regional Medical Center05-31-2023 Miscellaneous Notes* PT ROUTINE/REASSESSMENT/RECERT/CASE MGMT - Jade [...] again. BACKGROUND: Diagnoses (reason for Home Care): [facility]- [facility] weakness [facility]06[facility]. UTI ,MOISES Weight Bearing/Precaution [...] summary for intervention/education details. documented in this encounterCoshocton Regional Medical Center05-30-2023 Instructions* Patient Instructions* Dung Gaona MD - 2023 3:34 PM EDT [...] prostate cancer in its early stages, the [place] [employer] and the [place] [employer] recommend a screening every year for men ages 50 to 70. They further recommend that men who are at high risk -- such as -[place] men and men with a family history [...] get worse. This approach is sometimes called "watchful waiting" or surveillance. There are a number of [...] and hemostasis is achieved with electrocautery. Graphic 60610 Version 1.0 2020 [employer] and/or its affiliates. All Rights Reserved. documented in this encounterCoshocton Regional Medical Center05-30-2023 Procedure note* Dung Gaona MD - 2023 2:38 PM EDTProcedure(s): CYSTOSCOPY; US, TRANSRECTAL Pre-Procedure Diagnose(s): Benign prostatic hyperplasia with urinary retention Post-Procedure Diagnose(s): Benign prostatic hyperplasia with urinary retention CYSTOSCOPY/TRUS PROCEDURE NOTE: [id number] Craig/complex-[id number] Craig/uncomp-[id number] BLADDER IRRIGATION, SIMPLE, LAVAG [[id number] Ray Gena Mullins is a 83 year old male who presents with /for cystoscopy And TRUS Pt ID verified with patient: yes Procedure verified with patient: cystoscopy/ TRUS Procedure confirmed with physician and manager support services: yes Special equipment-cystoscope with ultrasound of the [...] Plan of Care Visit completed when applicable. Dung Gaona MD A urinalysis was performed---- revealing [...] - US CYSTO/TRUS (POC) GUKI USE ONLY Dung Gaona MD See progress note for plans Dung Gaona MD documented in this encounterCoshocton Regional Medical Center05-30-2023 History of Present illness Narrative* Dung Gaona MD - 2023 2:18 PM EDT [...] arrange the testing and consult Lorenzo Carballo, [facility], [place], PA-C June 23, 2021-seen by Lorenzo Carballo- Patient here for 1 year follow-up. Feels fantastic. No voiding complaints. PSA - pending . Very stable. Patient prefers conservative management.has not take Proscar 5 mg for some time now Restart Proscar 5 mg June 29, 2015-seen by [facility] urology- 1 year follow-up previous prostate [...] learn intermittent catheterization May 10, 2014-ultrasound/biopsy of prostate-[facility] urology--- Volume 57 cc Creatinine Date [...] Date Value 03/10/2023 Negative 01/06/2010 neg Specific [place], Ur (no units) Date Value 03/10/2023 1.010 [...] tablet by mouth every hour as needed. ixcsgwr-ejhryuuat-hqlvman D3 (CALCIUM 500+D) 500 mg-5 mcg (200 [...] dizzines and falls. 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 .dgruroli TUR Prostate I explained the options concerning surgery versus medication.I explained the possibility of impotency, retrograde ejaculation, and incontinence ,the possibility of blood loss, and transfusion and thefact that he may be admitted post operatively. I explained the post operative urgency, frequency, and dysuria. Risk of anesthesia complications, stroke, NV, etc.The patient expressed an understandingwith regard to [...] urinary stream - ICD9: 788.62, ICD10: R39.12 Dung Gaona Please note: This note has been produced using speech recognition software and may contain errors related to that system including grammar, punctuation, spelling, gender and words and phrases that may be inappropriate. documented in this encounterCoshocton Regional Medical Center05-17-2023 Miscellaneous Notes* PT ROUTINE/REASSESSMENT/RECERT/CASE MGMT - Jose Solomon PTA - 04/03/2023 10:56 AM EDT SITUATION: only patient present during today's visit. patient reports the following since the last homecare visit: medications/allergies--no changes, no fall. patient reports that he walks within the home every1-2 hours, has not been compliant to full HEP. Agreeable to PT. BACKGROUND: Diagnoses (reason for Home Care): [facility]- for weakness [facility]06[facility]. UTI ,MOISES Weight Bearing/Precaution [...] summary for intervention/education details. documented in this encounterCoshocton Regional Medical Center05-12-2023 Miscellaneous Notes* SN Routine - Monae Bobo RN - 03/29/2023 1:55 PM EDT SITUATION: [facility] routine visit completed today. only patient present [...] voiding trial, CP check. documented in this encounterCoshocton Regional [facility] Misc[facility] Notes* PT ROUTINE/REASSESSMENT/RECERT/CASE MGMT - Jade Swathi SHIP JOINER - 03/29/2023 12:57 PM EDT SITUATION: only patient present during today's visit. patient reports the following since the last homecare visit: medications/allergies--no changes, no fall. patient reports he just got home alittle while ago from Dr burgess. States he wasnt able to get rid of cathater today. Will go back next week and try again. BACKGROUND: Diagnoses (reason for Home Care): [facility]- for weakness 03/06- [facility] - 03[facility]18[facility]2023. UTI ,MOISES Weight Bearing/Precaution [...] summary for intervention/education details. documented in this encounterCos[facility]05-12-[facility]23 History of Present illness Narrative* Martha Enriquez [...] catheter. Martha Enriquez LPN documented in this encounterCoshocton [facility] Center05-10-2023 Miscellaneous Notes* Telephone Encounter - Martha Enriquez [...] LPN - 03/25/2023 10:24 AM EDT Called patient/Annemarie- no answer- mailbox is full. Patient was scheduled for Lorenzo Carballo PA-C on Saturday but needed scheduled with nurse. Changed appointment to [phone]. If not okay please reschedule. Martha Enriquez LPN documented in this encounterCoshocton [facility] Center05-10-2023 Miscellaneous Notes* PT ROUTINE/REASSESSMENT/RECERT/CASE MGMT - Jade Echevarria PTA - 03/27/2023 12:49 PM EDT SITUATION: spouse present during today's visit. patient and caregiver reports the following since the last homecare visit: medications/allergies--no changes, no fall. patient reports he is feeling better every day. BACKGROUND: Diagnoses (reason for Home Care): [facility]- for weakness 03/06- [facility] - 03[facility]18/2023. UTI ,MOISES Weight Bearing/Precaution [...] summary for intervention/education details. documented in this encounterCoshocton [facility] Center05-08-2023 Miscellaneous Notes* Telephone Encounter - Zina Garcia Faro Dealer - 03/25/2023 9:47 AM EDT There has been a delay in service for Home Care OT Evaluation for this patient due to schedule conflict. Attempted to notify patient - the number listed went to voicemail and I was unable to leave a message because the mailbox is full. Thank you for this referral, please contact us with any questions. Zina Garcia Faro Dealer documented in this encounterCoshocton [facility] Center05-08-2023 History of Present illness Narrative* Baron Espinoza MD - 03/25/2023 8:51 AM EDT Patient presents with: Hospital F/U HPI: Patient presents today for office visit for hospital follow up. Admitted into [facility] on 03/06/23 Transferred to [facility] 03/08/23 for PT and discharged 03/18/23. Initially went to [facility] ER due to weakness, debility and B/L knee pain. Still complains of knee pain.Left knee is more severe. 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 UTI was discovered in [facility]. Straight cath done and over 1200 cc urine output. Cragi inserted. 2 voiding trials done and he's still unable to urinate on his own. Craig still place. Urine yellow and clear. No hematuria. No fever. Seeing urology at [facility]. Goes again on Saturday. Has indwelling craig. Urine clear. Admitted with [facility] with knee pain and and knee effusion. Was placed on steroids and begun on therapy. Was admitted more for safety issues. They did not have him see ortho. Work up included labs. Had xrays and duplex. [facility] is following. Getting VN, physical and [...] tablet by mouth every hour as needed. rhnkadv-gxxpnwmjx-evktwos D3 (CALCIUM 500+D) 500 mg-5 mcg (200 [...] complication, without long-term current use of insulin ([facility]) 07/24/2016 Degenerative disc disease, cervical 12/09/2015 Diabetes [...] 120/70 Pulse 60 Ht 162.6 cm (5' 4") Wt 57 kg (125 lb 9.6 oz) [...] polyneuropathy, without long-term current use of insulin ([facility]) - ICD9: 250.60, 357.2, ICD10: E11.42 - Controlled - Continue current medications 3. Mild cognitive impairment with memory loss - ICD9: 331.83, ICD10: G31.84 - see if improves now that he is back in his normal environment. 4. Lumbar disc disease with radiculopathy - ICD9: 722.10, 724.4, ICD10: M51.16 Chronic low back pain - continue therapy. 5. Atherosclerosis of [place] coronary artery of [place] heart without angina pectoris - ICD9: 414.01, ICD10: I25.10 - stable. 6. Cardiomyopathy, nonischemic (HCC) - ICD9: 425.4, ICD10: I42.8 - stable. 7. Controlled type 2 diabetes mellitus with microalbuminuria, without long-term current use of insulin ([facility]) - ICD9: 250.40, 791.0, ICD10: E11.29, R80.9 - follow. 8. Benign prostatic hyperplasia with urinary obstruction - ICD9: 600.01, 599.69, ICD10: N40.1, N13.8 - seeing urology 9. 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 Andrade. 10. History of splenectomy - ICD9: V45.79, ICD10: Z90.81 - stable. 11. Urinary retention - ICD9: 788.20, ICD10: R33.9 over the horizon targeting supervisor the cardura and use. Hopefully will improve things. 12. Debility - ICD9: 799.3, ICD10: R53.81 - as above. Baron Espinoza RTO in eight weeks or prn documented in this encounterCoshocton [facility] Center05-07-2023 Miscellaneous Notes* PT EVALUATION - Jennifer Clark, PT - 03/24/2023 9:36 AM EDT SITUATION: spouse present during today's visit. patient reports the following since the last homecare visit: medications/allergies--no changes, no fall. patient reports "Im getting better ". BACKGROUND: Diagnoses (reason for Home Care): [facility]- for weakness 03/06- [facility]18[facility]2023. UTI ,MOISES PMH: Hairy Cell Leukemia of Lymph Nodes of Multiple Sites ([facility]) Primary Hypertension Lumbar Spinal Stenosis Coronary Atherosclerosis [...] Lbbb (Left Bundle Branch Block) Cardiomyopathy, Nonischemic ([facility]) Personal History of Fall Elevated Alkaline Phosphatase Level Shortness of Breath Type 2 Diabetes Mellitus With Diabetic Polyneuropathy, Without Long-Term Current Use of Insulin (Hcc) Joelle (Iron Deficiency Anemia) After Care - Precautions/Activity Restrictions: fall, impulsive ASSESSMENT: [facility]. Reviewed and explained homecare [...] summary for intervention/education details. documented in this encounterCoshocton [facility] Center05-05-2023 Miscellaneous Notes* Telephone Encounter - Elicia Man RN - 03/22/2023 3:04 PM EDT Pt spouse calling in, name & verified. Pt calling to report blood in urine and pain 04/27 following craig insertion today in office. Gave pt some pain reliever and he was going to rest tosee if pain subsides.Elicia Man RN documented in this encounterCoshocton [facility] Center05-05-2023 History of Present illness Narrative* Lorenzo Carballo PA-C - 03/22/2023 11:10 AM EDT CC "Craig in Place" HPI: Michael Mullins is a 82 year old male with a history of BPH with Obstruction . patient on Cardura for 1 mg for years as well as Proscar 5 mg Craig insertion occurred on March 10, 2023 after Parathyroid surgery and subsequent hospitalization. He had a UTI and was treated with Keflex at [facility] The patient is here now for [...] TOV in 1 week DAISY [place], [place] IMPRESSION/PLAN: 82 year old male with . [...] ICD10: E11.29, R80.9 > UTI while at [facility] and was given cephALEXin 500 mg [...] catheter. Martha Enriquez LPN documented in this encounterErin [place] [address]-05-2023 Instructions* Patient Instructions* Lorenzo Carballo PA-C - 03/22/2023 11:04 AM EDT > Failed TOV craig back in place - today > Increase Cardura to 8 mg and remain on Proscar 5 mg > Nurse Appointment in 1 week for TOV documented in this encounterCoshocton [facility] Center05-04-2023 Miscellaneous Notes* Telephone Encounter - Martha Enriquez LPN - 03/21/2023 9:14 AM EDT Called patient. No answer- call went to voicemail that is not set up. Patient is scheduled to see Lorenzo tomorrow and was calling to get small history for appointment as we are waiting on records from [facility]. Martha Enriquez LPN documented in this encounterCoshocton [facility] Medical Center05-02-2023 Miscellaneous Notes* SN SOC - María Mcdonnell RN - 03/19/2023 12:52 PM EDT SITUATION: [facility] visit completed today. spouse also present during today's visit. patient and caregiver reports the following: Allergies--reviewed Medications--full medication reconciliation completed Falls--None DME-Reviewed and added to chart BACKGROUND: Discharged/Referral from acute rehab hospital on 03/18/23 following treatment for knee pain, failure to thrive, UTI, urinary retention requiring a craig. (pt admitted to [facility] then transferred to [place] for rehab). Pertinent referral information or other [...] of need to schedule f/u with urology, states,"I am going to call Dr. Carballo today." no change orders noted, pt to f/u [...] urology as been scheduled. documented in this encounterCoshocton [facility] Medical Center04-29-2023 Miscellaneous Notes* Telephone Encounter - Marisol Medina LPN - 03/16/2023 1:19 PM EDT Welcome Home Call: a. Date and Time: 1:19 PM 03/16/2023 b. Contact name/relationship: Annemarie West (Spouse) c. Have you been active with any Home Care company in the last 60 days(such as help with bathing, filling medications, checking your blood pressure) ? No. d. [facility] will be providing your care, are you agreeable to starting these services? yes (yes or no) e. Do you have any upcoming appointments in the next few days, or restrictions to your schedule? no f. Caregiver: Annemarie West (Spouse) g. Confirmed Visited Location and preferred #: yes Please keep our your medications both over the counter and prescribed out for the home care to review, your hospital discharge instructions and write down any questions you might have. In order to maintain a safe environment for our caregivers, [facility] requires anyanimals or weapons present in the home be located in a secured location. Our clinicians will call you the night before or the morning of the appointment. Their # may come up restricted but they'll leave a VM for you. In case you have any questions or concerns in the meantime, our # is [phone], option 5 Thank you for your time and have a great day. Marisol Medina LPN documented in this encounterCoshocton Regional Medical Center04-29-2023 Miscellaneous Notes* Telephone Encounter - Marisol Medina LPN - 03/16/2023 8:08 AM EDT Baron Espinoza MD Please advise if you are agreeable to signing and following for C services? Our Clinicians will be sending the Plan of Care to you for review and approval. They will reach out for any appropriate orders required to provide home care services for the patient. We are not able to initiate HHC services without a following provider. Home care clinicians may also obtain orders from [facility] Virtualist Providers Thank you and we would be happy to answer any questions. Marisol Medina LPN 03/16/2023 8:09 AM documented in this encounterCoshocton Regional Medical Center04-21-[address] Griffiths [facility] March 08, 2023 2:14pm Note Date/Time March 08, 2023 2:1 4pm [facility] Medical Records Department [address] [place] [address] Discharge Summary 03/08/23 1413 MR#: [id number] Acct: [id number] Name: MICHAEL MULLINS Rep #:[id number] : 1940 82 From: James Griffiths DO PCP: Dr. Baron Espinoza MD Status:ADM I NO Location: [place] [address] Providers Date of Admission: 03/06/23 Primary Care Physician: Dr. Baron Espinoza MD Reason For Visit: ADULT FTT [...] anxiety and Depression who presents to the [facility] ED on 03/06/23 with history of [...] renal function worsens as noted, PRN hydralazine. \\ * Hyperlipidemia: Continue patient home statin therapy. [...] Attending Provider: James Griffiths Primary Care Provider: Baron Espinoza Consulting Providers: Paty Morgan Discharge Orders/Prescriptions [...] PRN (Reason: Pain) Referrals / Follow Up: Baron Espinoza MD [Primary Care Provider] - Within 2 Weeks Disposition Disposition (needs filled in before D/C Order can be placed): [facility] Charges/Coding Visit Charges Inpatient E&M: 33749 Disch Hosp 03/08/23 1414 <Electronically signed by James Griffiths DO> Cosigner Signature (if applicable): CC: Dr. James Griffiths DO; Dr. Baron Espinoza MD~ Signed [facility] Work Phone: 1(447) 878-547904-21-[address] Griffiths [facility] March 08, 2023 2:13pm Note Date/Time March 08, 2023 2:0 9pm [facility] Medical Records Department [address] [place] [address] Transfer to [facility] MR#: [id number] Acct: [id number] Name: DENILSONMICHAEL Gaines Rep #:[id number] : 1940 82 From: James Griffiths DO PCP: Dr. Baron Espinoza MD Status:ADM I NO Certification of patient admission REQUIRED AT TIME OF ADMISSION. I CERTIFY THAT POST-HOSPITAL ECF SERVICES ARE REQUIRED TO BE GIVEN ON AN IN-PATIENT BASIS BECAUSE OF THE ABOVE NAMED PATIENT'S NEED FOR SHELTER CARE ON A CONTINUING BASIS FOR THE CONDITION(S) FOR WHICH HE/SHE WAS RECEIVING IN-PATIENT HOSPITAL SERVICES PRIOR TO HIS/HER TRANSFER TO THE [facility]. 03/08/23 1413<Electronically signed by James Griffiths DO> [...] anxiety and Depression who presents to the [facility] ED on 03/06/23 with history of [...] renal function worsens as noted, PRN hydralazine. \\ * Hyperlipidemia: Continue patient home statin therapy. [...] Attending Provider: James Griffiths Primary Care Provider: Baron Espinoza Consulting Providers: Paty Morgan Discharge Orders/Prescriptions [...] PRN (Reason: Pain) Referrals / Follow Up: Baron Espinoza MD [Primary Care Provider] - Within 2 Weeks Disposition Disposition (needs filled in before D/C Order can be placed): [facility] Facility 03/08/23 1413 <Electronically signed by James Griffiths DO> Cosigner Signature (if applicable): CC: Dr. Paty Morgan MD; Dr. Baron Espinoza MD ~ [facility] Work Phone: 1(662) 482-876804-21-[address] Griffiths [facility] March 08, 2023 1:08pm Note Date/Time March 08, 2023 7:1 6am [facility] Medical Records Department [address] [place] [address] Progress Note - Hospitalist 03/08/23 0713 MR#: [id number] Acct: [id number] Name: MICHAEL MULLINS Rep #:[id number] : 1940 82 From: James Griffiths DO PCP: Dr. Baron Espinoza MD Status:ADM I NO Location: MS3 GT128-0 Reason for Visit Reason for Visit: Diagnoses [...] anxiety and Depression who presents to the [facility] ED on 03/06/23 with history of [...] renal function worsens as noted, PRN hydralazine. \\ * Hyperlipidemia: Continue patient home statin therapy. * Gout: Continue patient home allopurinol regimen. * BPH: We will continue patient home finasteride, doxazosin home regimen. DVT prophylaxis: Lovenox. CODE status: Full code Disposition: to SNF pending insurance authorization. Charges/Coding Visit Charges Inpatient E&M: 53683 Subs Hosp L1 03/08/23 1306 <Electronically signed by James Griffiths DO> Cosigner Signature (if applicable): CC: ~ Signed [facility] Work Phone: 1(323) 613-239304-20-[address] Griffiths [facility] March 07, 2023 11:58am Note Date/Time March 07, 2023 7:2 6am [facility] Medical Records Department [address] [place] [address] Progress Note - Hospitalist 03/07/23722 MR#: [id number] Acct: [id number] Name: MICHAEL MULLINS Rep #:[id number] : 1940 82 From: James Griffiths DO PCP: Dr. Baron Espinoza MD Status:ADM I NO Location: [facility]3 WM655-1 Reason for Visit Reason for Visit: Diagnoses Effusion, right knee (03/06/23) Weakness (03/06/23) Subjective Subjective Was able to work with therapy using a walker. Denies any current knee pain. Objective Data Objective Data Vital Signs: Vital Signs Temp Pulse Resp BP Pulse Ox O2 Del Method 36.7 C 70 18 135/80 H 95 Room Air 03/07/23 06:00 03/07/23 06:00 03/07/23 06:00 03/07/23 [...] anxiety and Depression who presents to the [facility] ED on 03/06/23 with history of [...] renal function worsens as noted, PRN hydralazine. \\ * Hyperlipidemia: Continue patient home statin therapy. * Gout: Continue patient home allopurinol regimen. * BPH: We will continue patient home finasteride, doxazosin home regimen. DVT prophylaxis: Lovenox. CODE status: Full code Disposition: to SNF pending insurance authorization. Charges/Coding Visit Charges Inpatient E&M: 81780 Subs Hosp L2 03/07/23 1158 <Electronically signed by James Griffiths DO> Cosigner Signature (if applicable): CC: ~ Signed [facility] Work Phone: 1(750) 177-351804-19-[address] Griffiths [facility] March 06, 2023 2:51pm Note Date/Time March 06, 2023 7:5 4am [facility] Medical Records Department [address] [place] [address] Progress Note - Hospitalist 03/06/23 0747 MR#: [id number] Acct: [id number] Name: MICHAEL MULLINS Rep #:[id number] : 1940 82 From: James Griffiths DO PCP: Dr. Baron Espinoza MD Status:ADM I NO Location: MA3 OP702-1 Reason for Visit Reason for Visit: Diagnoses Weakness (03/06/23) Subjective Subjective Pt had been weak with "shuffling" gait. Saturday, he got increasingly weak. Complains [...] 75.4 H, Lymph % (Auto) 13.3 L, Parker % (Auto) 9.3, Eos % (Auto) 1.4, [...] Clarity Clear, Urine pH 8.0, Ur Specific Hendricks 1.010, Urine Protein 100 H, Urine Glucose [...] 75.5 H, Lymph % (Auto) 13.3 L, Parker % (Auto) 9.7, Eos % (Auto) 0.8, [...] Signed: Roberth Diez MD at 23:40 EDT Reading Location ID and State: [facility] Tel , Service support , Chest X-Ray 03/05/23 22:48 IMPRESSION: Hypoinflated [...] anxiety and Depression who presents to the [facility] ED on 03/06/23 with history of [...] renal function worsens as noted, PRN hydralazine. \\ * Hyperlipidemia: Continue patient home statin therapy. * Gout: Continue patient home allopurinol regimen. * BPH: We will continue patient home finasteride, doxazosin home regimen. DVT prophylaxis: Lovenox. CODE status: Full code Charges/Coding Visit Charges Inpatient E&M: 34942 Subs Hosp L2 03/06/23 1457 <Electronically signed by James Griffiths DO> Cosigner Signature (if applicable): CC: ~ Signed [facility] Work Phone: 1(838) 533-669804-19-2023 Discharge summary Author Christiano [facility] March 06, 2023 5:18am Note Date/Time March 06, 2023 12: 26am [facility] Medical Records Department [address] [place] [address] Emergency Department Summary 03/06/23 MR#: [id number] Acct: [id number] Name: MICHAEL MULLINS Rep #:[id number] : 1940 82 From: Christiano Eastman DO PCP: Dr. Baron Espinoza MD Status:ADM I NO Location: [address] History of Present Illness Chief Complaint: Weakness Narrative Narrative: Patient is 82-year-old male from home with past medical history of hypertension diabetes BPH and congestive heart failure. According to patient and he hashad generalized weakness "since COVID". However he underwent a parathyroid gland removal roughly 6 days ago and since that time has had increased weakness. Patient and state that he cannot get up on his own and once he does he just "shuffles his legs in place" and does not ambulate. The states that as they are at home alone they have no one who can help care for him and with his increased weakness and recent surgery brought him in for evaluation [facility] Medical History Alzheimer's disease Anxiety Benign [...] thathe may need placement in rehab or residential since he cannot ambulate and he is [...] 75.4 H Lymph % (Auto) 13.3 L Parker % (Auto) 9.3 Eos % (Auto) 1.4 [...] Clarity Clear Urine pH 8.0 Ur Specific Hendricks 1.010 Urine Protein 100 H Urine Glucose [...] Signed: Roberth Diez MD at 23:40 EDT Reading Location ID and State: [facility] Tel , Service support , Chest X-Ray 03/05/23 22:48 IMPRESSION: Hypoinflated study without radiographic evidence of acute cardiopulmonary disease. Electronically Signed: Roberth Diez MD at 23:14 EDT Reading Location ID and State: [address] [place] [address] Tel , Service support , Chest x-ray as interpreted by the emergency medicine physician reveals elevationof the left hemidiaphragm which is chronic in nature without acute infiltrate pneumothorax or pleural effusion Management Discussion w/another healthcare provider: Hospitalist Discharge Plan Dx/Rx/DC Orders Clinical Impression: Generalized weakness, Hypertension, Inability to walk Disposition Disposition: Acute Care Hospital [facility] Discharge Date/Time: 03/06/23 01:14 What to do if you have Problems For any increased pain, shortness of breath, bleeding, nausea or vomiting, chestpain, or any unexpected problems, contact your Primary Care Provider. Call [facility] ([phone]) or report to the closest Emergency Room. Call 911 if necessary. 03/06/23517 <Electronically signed by Christiano Eastman DO> Cosigner Signature (if applicable): CC: Dr. Baron Espinoza MD ~ Signed [facility] Work Phone: 1([phone]) 446-442604-19-2023 History and physical note Author Dr. Morgan [facility] March 06, 2023 1:05am Note Date/Time March 06, 2023 12: 37am [facility] Medical Records Department [address] [place] [address] History & Physical Exam 03/06/23 0024 MR#: [id number] Acct: [id number] Name: MICHAEL MULLINS Rep #:[id number] : 1940 82 From: Paty Morgan MD PCP: Dr. Baron Espinoza MD Status:ADM I NO Location: [place] [address] HPI - General General Date of Admission: [...] anxiety and Depression who presents to the [facility] ED on 03/06/23 with history of [...] patient ministered 1 L normal saline bolus. [facility] Medical History Alzheimer's disease Anxiety Benign prostate [...] 75.4 H, Lymph % (Auto) 13.3 L, Parker % (Auto) 9.3, Eos % (Auto) 1.4, [...] Clarity Clear, Urine pH 8.0, Ur Specific Hendricks 1.010, Urine Protein 100 H, Urine Glucose [...] anxiety and Depression who presents to the [facility] ED on 03/06/23 with history of [...] DVT prophylaxis: Lovenox. #15. CODE status: Patient HCPOA is his and living will is currently [...] 55 minutes. Charges/Coding Visit Charges Inpatient E&M: 52981 Init Hosp L2 Procedures Hospitalists Procedures: 30848 Advncd Care Plan 30 Min 03/06/23 0105 <Electronically signed by Paty Morgan MD> Cosigner Signature (if applicable): CC: Dr. Paty Morgan MD; Dr. Baron Espinoza MD~ Signed [facility] Work Phone: 1(656) 551-602204-13-2023 NoteHNO ID: [id number] Author: Cliff Castro MD Service: Endocrine Surgery [...] (Oral) Resp 18 Ht 160 cm (5' 3") Wt 52.9 kg (116 lb 10 oz) [...] PRN Karyna Reeves Jr., MD phenol 1 [place] (CHLORASEPTIC) 1 [place] MUCOUS MEMBRANE (TOPICAL MOUTH AND THROAT) q 2 H PRN Karyna Reeves Jr., MD ibuprofen 600 mg tab(s) (MOTRIN) 600 mg ORAL q 6 H PRN Karyna Reeves Jr., MD acetaminophen 500 mg tab(s) (TYLENOL) 500 mg ORAL q 4 H PRN Karyna Reeves Jr., MD 500 mg at 02/27/232017 qswsmpt-umskazoiw-cfxwrti D3 500 mg-5 mcg (200 unit) 1 [...] Karyna Reeves Jr., MD 500 mg at 02/27/232006 PARoxetine 10 mg tab(s) (PAXIL) 10 mg ORAL DAILY Karyna Reeves Jr., MD donepezil 10 mg tab(s) (ARICEPT) 10 mg ORAL AT BEDTIME Karyna Reeves Jr., MD 10 mg at 02/27/23 2007 losartan 50 mg tab(s) (COZAAR) 50 mg ORAL DAILY Karyna Reeves Jr., MD Date 02/27/23 07 - 02/28/23 0659 02/28/23 07 - 03/01/23 0659 Shift 4407-0866 9958-5268 1857-3084 24 Hour Total 4459-7699 [id number] 24 Hour Total INTAKE IV 1400 1400 [...] of care. Cliff Castro MD General Surgery PGY-1MMary Rutan [id number] NoteHNO ID: [id number] Author: Karyna Reeves Jr., MD Service: ? [...] (Oral) Resp 18 Ht 160 cm (5' 3") Wt 52.9 kg (116 lb 10 oz) [...] PRN Karyna Reeves Jr., MD phenol 1 [place] (CHLORASEPTIC) 1 [place] MUCOUS MEMBRANE (TOPICAL MOUTH AND THROAT) q 2 H PRN Karyna Reeves Jr., MD ibuprofen 600 mg tab(s) (MOTRIN) 600 mg ORAL q 6 H PRN Karyna Reeves Jr., MD acetaminophen 500 mg tab(s) (TYLENOL) 500 mg ORAL q 4 H PRN Karyna Reeves Jr., MD 500 mg at 02/27/23 1138 nucgrsr-hlbvtcnop-duxhrys D3 500 mg-5 mcg (200 unit) 1 [...] Admitted) 02/27/23 0700 - 02/28/23 0659 Shift [id number] [id number] 24 Hour Total [id number] [id number] 3423-8316 24 Hour Total INTAKE IV 1400 1400 [...] Karyna reeves Jr, MD Clinical Associate [facility]04[facility]12-2023 NoteHNO ID: [id number] Author: GRACY Frausto Service: ? Author Type: Superintendent Logging Type: Anesthesia Procedure Notes Filed: 02/27/2023 8:08 AM Note Text: ANESTHESIOLOGY PROCEDURE NOTE Airway General Information Procedure Start Time/Medication Administration: 02/27/2023 7:43 AM Patient location during procedure: OR Timeout Performed Pre-procedure: timeout performed Consent Obtained: Yes Patient identity confirmed: arm band, care steam box tender and patient Staffing CAA: GRACY Frausto Indications and Patient Condition Indications for airway management: anesthesia Preoxygenated: yes anesthesia circuit Method: asleep Cricoid Pressure: No Manual In-Line Stabilization: No Difficult Mask: No Final Airway Details Final airway type: endotracheal airway Final Endotracheal Airway: ETT (nerveanna) Cuffed: yes Successful intubation technique: video laryngoscopy Devices used: [employer] Endotracheal tube insertion site: oral Blade size: #4 ETT size (mm): 8.0 Measurement (cm): 22 Placement verified by: capnometry Cormack-Lehane Classification: grade I - full view of glottis Number of attempts at approach: 1 Failed airway: no Unrecognized esophageal intubation: no Airway not difficult SIGNATURE: GRACY Frausto PATIENT NAME: Michael Mullins DATE: February 27, 2023 TIME: 8:06 AM CSN: [id number] Miscellaneous Notes* Telephone Encounter - Nicole Bass [...] patient. Nicole Bass LPN documented in this encounterCoshocton [facility]03-24-2023 Miscellaneous Notes* Telephone Encounter - Meño Ledbetter LPN - 02/08/2023 10:47 AM EDT Patient phones requesting refills as follows: Requested Prescriptions Pending Prescriptions Disp Refills allopurinol (ZYLOPRIM) 300 mg tablet 90 tablet 3 Sig: TAKE 1 TABLET BY MOUTH ONCE DAILY. FOR GOUT. SAMANTHA 11/15/22 NOV no upcoming appt Please review and advise. Meño Ledbetter LPN documented in this encounterCoshocton Regional Medical Center03-15-2023 Miscellaneous Notes* Telephone Encounter - NAILA Sparks - 01/30/2023 4:01 PM EDT SAMANTHA 11/15/22 with [facility] No appointment scheduled Please [...] pharmacy. No need to notify patient. Vera Hurtado documented in this encounterCoshocton Regional Medical Center02-09-2023 History of Present illness Narrative* Valerie Munoz MD - 12/27/2022 11:40 AM EST Valerie Munoz M.D. Department of Endocrine Surgery Endocrinology [place] [address] ENDOCRINE SURGERY NEW PATIENT VISIT NAME: Michael Mullins [facility] NO: [id number] : 1940 History of Present Illness: Michael [...] 143/70 Pulse 63 Ht 157.5 cm (5' 2.01") Wt 59.4 kg (131 lb) BMI 23.95 [...] which included preparing to see the patient, yvhp-lq-[id number] patient care, completing clinical documentation, obtaining and/or [...] me should you have additional questions. Sincerely, Valerie Munoz M.D. Endocrine Surgeon [facility] documented in this encounterCoshocton Regional Medical Center02-09-2023 History of Present illness Narrative* Hayley Freeman, RT(R) - 12/27/2022 10:30 AM EST RADIOLOGY [...] 0940 PATIENT DISCHARGED TO: Ambulatory patient, left DE department area. A Diagnostic radioactive procedure has taken place, with no further precautions necessary other than routine body substance precautions. More information regarding radiation safety can be found usingthis link: [email or web address] SIGNATURE: RT Krzysztof(William) PATIENT NAME: Michael Mullins DATE: December 27, 2022 TIME: 10:47 AM PAGER/CONTACT #: documented in this encounterCoshocton Regional Medical Center02-09-2023 Instructions* Patient Instructions* Florence Gan Ma - 12/27/2022 10:03 AM EST Thank you for choosing the [facility] Department of Endocrinology, Diabetes and Metabolism. Did you know that you need to call 48 hours in advance of your scheduled visit, if you are unable to make your appointment? The [facility]in[facility] [place] thanks you for your commitment, because patients not showing to their appointment results in a lost opportunity for patients to receive [facility] health care at the [facility]. To Cancel an appointment, please choose one of the following: - Call the Appointment Call Center at [phone] - From [facility], Go to Appointments - Cancel Appts If cancelling, consider your need to reschedule to prevent further delays in your care. To Schedule an appointment, please choose one of the following: - Call the Appointment Call Center at [phone] - From [facility], Go to Appointments - Request an Appt documented in this encounterCoshocton Regional Medical Center02-09-2023 History of Present illness Narrative* Destini Zamora [...] 27, 2022 8:37 AM documented in this encounterCoshocton Regional Medical Center02-01-2023 Miscellaneous Notes* Telephone Encounter - Marisol Hayes - 12/19/2022 4:57 PM EST ENDOCRINE SURGERY PATIENT WORKSHEET Initial Call Date: December 19, 2022 Reason for Consult/ Referral: Hyperparathyroid PATIENT DEMOGRAPHICS Name: Michael Mullins C[facility]#: [id number] : 1940 AGE: [age] year old Contact Numbers: Home: (home) Work: There is no work phone number on file. PATIENT PHYSICIAN INFORMATION Referring Doctor: Shanthi Rangel Address: Phone: [employer]: same Address: Phone: PCP: Baron Espinoza [address] [place] [address] PAST TREATMENT Office notes: SEE EPIC Medications: [...] - 4.8 mg/dL 3.0 Imaging Reports: SEE [facility] CD of Images: SEE EPIC FNA: no FNA Slides: N/A Has the patient ever had thyroid or parathyroid surgery before: No Operative Reports: NONE AVAILABLE Pathology Reports: NONE AVAILABLE documented in this encounterCoshocton Regional Medical Center01-31-2023 History of Present illness Narrative* Lori Goodman - 12/18/2022 8:34 AM EST Last saw [...] Objective: Patient presents to clinic ambulating in [facility] Vasc: DP and PT pulses [...] in 3-4 months. Lori Goodman DPM * Elgin Mayo RN - 12/18/2022 8:29 AM EST Patient presents with: Right Foot - Established Patient, Follow Up, Pain, Diabetic Foot Care Left Foot - Established Patient, Follow Up, Diabetic Foot Care Patient presents for diabetic foot care. documented in this encounterCoshocton Regional Medical Center01-31-2023 Instructions* Patient Instructions* Lori Goodman - 12/18/2022 [...] or sore from your shoes, do not "pop" it. Apply a bandage and wear a differentpair of shoes. Take Care of Your Toenails Cut toenails after bathing, when they are soft. Cut toenails straight across and smooth with a nail file. Avoid cutting into the corners of toes. Do not cut cuticles. If you have neuropathy (or decreased sensation in your feet) a billing analyst should always cut your toenails. Be Careful [...] your shoes are too tight. Perform the "footwear test" described below. Footwear Test Use this simple [...] Go to your health care provider or billing analyst to treat these conditions. documented in this encounterCoshocton Regional Medical Center01-26-2023 History of Present illness Narrative* Shanthi Rangel [...] likely due to primary hyperparathyroidism. FHH is u nlikely given the age of [...] which included preparing to see the patient, kyny-xo-zwsw patient care, completing clinical documentation, obtaining and/or reviewing separately obtained history, counseling and educating the patient/family/caregiver, and ordering medications, tests, or procedures. This note was created using Coradiant dictation software. You may find errors that were missed during proofreading. They are purely unintentional and if there are any concerns regarding this dictation, please do not hesitate to contact the dictating provider for clarification. Shanthi Rangel MD documented in this encounterCoshocton Regional Medical Center01-26-2023 Instructions* Patient Instructions* Shanthi Rangel MD - 12/13/2022 1:16 PM EST - We will do parathyroid SPECT scan. Please call [phone] to schedule - We will refer you to endocrine surgery clinic to discuss surgery for the parathyroid gland Thank you for choosing the [facility] Department of Endocrinology, Diabetes and Metabolism. Did you know that you need to call 48 hours in advance of your scheduled visit, if you are unable to make your appointment? The [facility]inology [facility] [place] thanks you for your commitment, because patients not showing to their appointment results in a lost opportunity for patients to receive [facility] health care at the [facility]. To Cancel an appointment, please choose one of the following: - Call the Appointment Call Center at [phone] - From [facility], Go to Appointments - Cancel Appts If cancelling, consider your need to reschedule to prevent further delays in your care. To Schedule an appointment, please choose one of the following: - Call the Appointment Call Center at [phone] - From [facility], Go to Appointments - Request an Appt documented in this encounterCoshocton Regional Medical Center01-20-2023 Miscellaneous Notes* Telephone Encounter - Ayan Mahoney Ma - 12/07/2022 2:39 PM EST Patient notified via [employer]. * Telephone Encounter - Ara Long - 12/07/2022 2:25 PM EST Pharmacy verified [...] 59 kg (130 lb) Please advise. Ara Long documented in this encounterCoshocton Regional Medical Center01-09-2023 History of Present illness Narrative* Ian Holly MD - 11/26/2022 2:32 PM EST Images from the original note were not included. Ian Holly MD Interventional Cardiology [address] [place] [address] Chief Complaint Patient presents with: Established Patient [...] (BD POSIFLUSH) 10 mL INTRAVENOUS DIRECTED PRN Ina Holly MD Review of Systems Constitutional: Negative [...] to correct any errors. documented in this encounterCoshocton Regional Medical Center01-06-2023 Instructions* Patient Instructions* Lorenzo Carballo PA-C - 11/23/2022 2:46 PM EST > 1 year Appt w/ DAISY Villalba, CARMEN HERNANDEZ for annual follow-up and refills. documented in this encounterCoshocton Regional Medical Center01-06-2023 History of Present illness Narrative* Lorenzo Carballo PA-C - 11/23/2022 9:12 AM EST Images from the original note were not included. [facility] ESTABLISHED PATIENT CLINIC NOTE [...] 2002 back surgery PAST SURGICAL HISTORY OF 2000 [...] resp. rate 16, height 157.5 cm (5' 2"), weight 59 kg (130 lb), SpO2 93 [...] symptoms present - ICD9: 600.00, ICD10: N40.0 DAISY [place], [place], CARMEN * Martha Mina MARCUM - 11/23/2022 9:00 AM EST Verified name and date of . CC Post Void Residual HPI: Michael Mullins is a 82 year old male. The patient is here now for an appointment with Lorenzo Carballo, DAISY, [place], PA-COV. Procedure: Explained procedure to patient and verbalizes understanding. Performed a PVR. Patient urinated and instructed to empty bladder as much as possible just prior to having PVR done using bladder ultrasound scanner. Results of scan: 0 mL The patient tolerated the procedure well. Plan: Appointment with Lorenzo. documented in this encounterCoshocton Regional Medical Center10-25-2022 Miscellaneous Notes* Telephone Encounter - Cori Bynum Pss - 09/11/2022 11:15 AM EDT Please note that pharmacy told patient he doesn't have any refills of atorvastatin left. Should have 1 refill left on current rx. * Telephone Encounter - Cori Bynum [facility] - 09/11/2022 11:14 AM EDT Patient has [...] pharmacy. No need to notify patient. Cori Bynum Pss documented in this encounterCoshocton Regional Medical Center09-28-2022 Miscellaneous Notes* Telephone Encounter - Dorinda Heart [...] patient. Dorinda Heart Pss documented in this encounterCoshocton Regional Medical Center09-09-2022 History of Present illness Narrative* Lori Goodman [...] thickness. Small bleed present to left hallux. Bandaide applied. Discussed likely nevus of left leg. This measures 2.5 cm x 2.0 cm. He is unsure how long it has been present. Discussed having him seen by dermatology. Could get him in with derm in [place] or [facility]. He has elected to monitor. If he reconsiders, would send him to [facility] as this is local Patient was instructed [...] Patient, Debridement of Nail documented in this encounterCoshocton Regional Medical Center09-09-2022 Instructions* Patient Instructions* Lori Goodman - 07/27/2022 [...] or sore from your shoes, do not "pop" it. Apply a bandage and wear a differentpair of shoes. Take Care of Your Toenails Cut toenails after bathing, when they are soft. Cut toenails straight across and smooth with a nail file. Avoid cutting into the corners of toes. Do not cut cuticles. If you have neuropathy (or decreased sensation in your feet) a billing analyst should always cut your toenails. Be Careful [...] your shoes are too tight. Perform the "footwear test" described below. Footwear Test Use this simple [...] Go to your health care provider or billing analyst to treat these conditions. documented in this encounterCoshocton Regional Medical Center09-08-2022 Miscellaneous Notes* Telephone Encounter - Meño Ledbetter LPN - 07/26/2022 11:28 AM EDT SAMANTHA 05/07/22 NOV 11/15/22 * Telephone Encounter - [...] notify patient. Marysol Long documented in this encounterCoshocton Regional Medical Center08-12-2022 Miscellaneous Notes* Telephone Encounter - Dorinda Heart [...] patient. Dorinda Heart Pss documented in this encounterCoshocton Regional Medical Center07-19-2022 Instructions* Patient Instructions* Shanthi Rangel MD - 06/05/2022 4:18 PM EDT - We will do blood tests and 24 hour urine collection at your convenience - We will also do bone density scan. Please call [phone] to schedule - Avoid calcium pills, but [...] canned with bones 3 oz 325 mg [place], canned with bones 3 oz 180 mg Shrimp, canned 3 oz 125 mg Dairy Serving Size Estimated Calcium* Ricotta, part-skim 4 oz 335 mg Yogurt, plain, low-fat 6 oz 310 mg Milk, skim, low-fat, whole 8 oz 300 mg Yogurt with fruit, low-fat 6 oz 260 mg Mozzarella, part-skim 1 oz 210 mg Cheddar 1 oz 205 mg Yogurt, Kyrgyz 6 oz 200 mg Slovenian Cheese 1 oz 195 mg Feta Cheese 4 oz 140 mg Cottage Cheese, 2% 4 oz 105 mg Frozen yogurt, vanilla 8 oz 105 mg Ice Cream, vanilla 8 oz 85 mg Parmesan 1 tbsp 55 mg Fortified Food Serving Size Estimated Calcium* Magnolia milk, rice milk or soy milk, fortified 8 oz 300 mg [place] juice and other fruit juices, fortified 8 oz 300 mg Tofu, prepared with calcium 4 oz 205 mg Waffle, frozen, fortified 2 pieces 200 mg Oatmeal, fortified 1 packet 140 mg Finnish muffin, fortified 1 muffin 100 mg Cereal, fortified 8 oz 100-1,000 mg Other Serving Size Estimated Calcium* Mac & cheese, frozen 1 package 325 mg Pizza, cheese, frozen 1 serving 115 mg Pudding, chocolate, prepared with 2% milk 4 oz 160 mg Beans, baked, canned 4 oz 160 mg documented in this encounterCoshocton Regional Medical Center07-19-2022 History of Present illness Narrative* Shanthi Rangel MD - 06/05/2022 3:40 PM EDT Images from the original note were not included. ENDOCRINOLOGY CLINIC NOTE Mr. 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 Baron Espinoza for evaluation and management of hypercalcemia [...] mL (BD POSIFLUSH) 10 mL INTRAVENOUS DIRECTED HERIBERTO Holly MD COMPLETE REVIEW OF SYSTEMS: 10 [...] with more than 50% of the total nkry-lc-mkkd time of the visit in counseling / coordination of care. This note was created using Coradiant dictation software. You may find errors that were missed during proofreading. They are purely unintentional and if there are any concerns regarding this dictation, please do not hesitate to contact the dictating provider for clarification. Shanthi Rangel MD documented in this encounterCoshocton Regional Medical Center07-07-2022 Miscellaneous Notes* Telephone Encounter - Dorinda Light [...] Meño Ledbetter LPN * Telephone Encounter - Baron Espinoza MD - 05/09/2022 1:25 PM EDT His labs are stable, except his calcium and parathyroid hormone are both up. Can be from an overactive parathyroid gland. Would recommend seeing endo documented in this encounterCoshocton Regional Medical Center06-20-2022 Instructions* Patient Instructions* Baron Espinoza MD - 05/07/2022 10:59 AM EDT Do Your Daily Exercises. -per Dr. Espinoza. documented in this encounterCoshocton Regional Medical Center06-20-2022 History of Present illness Narrative* Baron Espinoza MD - 05/07/2022 10:12 AM EDT [...] foot. Nurses check foot for sores. Sees billing analyst every 3 mo. ONCOLOGY:follow with Dr. Andrade. [...] 433.10, 433.30, ICD10: I65.23 - will follow. Baron Espinoza RTO in six months and prn. documented in this encounterCoshocton Regional Medical Center05-31-2022 History of Present illness Narrative* Lori Goodman [...] Objective: Patient presents to clinic ambulating in [facility] Vasc: DP and PT pulses are [...] months. Lori Goodman DPM documented in this encounterCoshocton Regional Medical Center05-31-2022 Instructions* Patient Instructions* Lori Goodman - 04/17/2022 8:26 AM EDT Diabetes Foot [...] or sore from your shoes, do not "pop" it. Apply a bandage and wear a differentpair of shoes. Take Care of Your Toenails Cut toenails after bathing, when they are soft. Cut toenails straight across and smooth with a nail file. Avoid cutting into the corners of toes. Do not cut cuticles. If you have neuropathy (or decreased sensation in your feet) a billing analyst should always cut your toenails. Be Careful [...] your shoes are too tight. Perform the "footwear test" described below. Footwear Test Use this simple [...] Go to your health care provider or billing analyst to treat these conditions. documented in this encounterCoshocton Regional Medical Center05-27-2022 Miscellaneous Notes* Telephone Encounter - Luzmaria Jaime [...] notify patient. Marysol Long documented in this encounterCoshocton Regional Medical Center05-05-2022 Miscellaneous Notes* Telephone Encounter - Marisol Birmingham Ma - 03/22/2022 3:22 PM EDT [facility] 11/06/21 Namenda was sent in today * [...] notify patient. Marysol Long documented in this encounterCoshocton Regional Medical Center05-04-2022 Miscellaneous Notes* Telephone Encounter - Maru Washburn LPN - 03/21/2022 5:54 PM EDT Patient phones requesting refills as follows: Pending Prescriptions Disp Refills MEMANTINE 5 MG TABLET 60 tablet 5 Sig: take 1 tablet by mouth twice a day WALDEMAR: Yes SAMANTHA-11/06/21 Labs-11/06/21 NOV-05/07/22 med filled 06/30/21 Please review and advise. Maru Washburn LPN documented in this encounterCoshocton Regional Medical Center04-18-2022 Miscellaneous Notes* Telephone Encounter - NAILA Sparks [...] patient. Dorinda Heart Pss documented in this encounterCoshocton Regional Medical Center12-13-2021 History of Past illness Narrative* Problem Noted Date Resolved Date Shortness of breath 10/30/2021 03/25/2023 Personal history of fall 07/28/2020 023 Last Assessment & Plan: Assessment: hx, uses cane LBBB (left bundle branch block) 06/03/2018 03/25/2023 Last Assessment & Plan: Assessment: hx, per EKG, follows cardiology documented as of this encounter (statuses as of 03/25/2023) [facility] History of Past illness Narrative* Problem Noted Date Resolved Date Shortness of breath 10/30/2021 03/25/2023 Personal history of fall 07/28/2020 023 Last Assessment & Plan: Assessment: hx, uses cane LBBB (left bundle branch block) 06/03/2018 03/25/2023 Last Assessment & Plan: Assessment: hx, per EKG, follows cardiology documented as of this encounter (statuses as of 03/25/2023) [facility] of Past illness Narrative* Problem Noted Date Resolved Date Shortness of breath 10/30/2021 03/25/2023 Personal history of fall 07/28/2020 023 Last Assessment & Plan: Assessment: hx, uses cane LBBB (left bundle branch block) 06/03/2018 03/25/2023 Last Assessment & Plan: Assessment: hx, per EKG, follows cardiology documented as of this encounter (statuses as of 03/27/2023) [facility] of Past illness Narrative* Problem Noted Date Resolved Date Shortness of breath 10/30/2021 03/25/2023 Personal history of fall 07/28/2020 023 Last Assessment & Plan: Assessment: hx, uses cane LBBB (left bundle branch block) 06/03/2018 03/25/2023 Last Assessment & Plan: Assessment: hx, per EKG, follows cardiology documented as of this encounter (statuses as of 03/27/2023) [facility] of Past illness Narrative* Problem Noted Date Resolved Date Shortness of breath 10/30/2021 03/25/2023 Personal history of fall 07/28/2020 023 Last Assessment & Plan: Assessment: hx, uses cane LBBB (left bundle branch block) 06/03/2018 03/25/2023 Last Assessment & Plan: Assessment: hx, per EKG, follows cardiology documented as of this encounter (statuses as of 03/29/2023) [facility] of Past illness Narrative* Problem Noted Date Resolved Date Shortness of breath 10/30/2021 03/25/2023 Personal history of fall 07/28/2020 023 Last Assessment & Plan: Assessment: hx, uses cane LBBB (left bundle branch block) 06/03/2018 03/25/2023 Last Assessment & Plan: Assessment: hx, per EKG, follows cardiology documented as of this encounter (statuses as of 03/30/2023) [facility] of Past illness Narrative* Problem Noted Date Resolved Date Shortness of breath 10/30/2021 03/25/2023 Personal history of fall 07/28/2020 023 Last Assessment & Plan: Assessment: hx, uses cane LBBB (left bundle branch block) 06/03/2018 03/25/2023 Last Assessment & Plan: Assessment: hx, per EKG, follows cardiology documented as of this encounter (statuses as of 04/01/2023) [facility] of Past illness Narrative* Problem Noted Date Resolved Date Shortness of breath 10/30/2021 03/25/2023 Personal history of fall 07/28/2020 023 Last Assessment & Plan: Assessment: hx, uses cane LBBB (left bundle branch block) 06/03/2018 03/25/2023 Last Assessment & Plan: Assessment: hx, per EKG, follows cardiology documented as of this encounter (statuses as of 04/03/2023) [facility] of Past illness Narrative* Problem Noted Date Resolved Date Shortness of breath 10/30/2021 03/25/2023 Personal history of fall 07/28/2020 023 Last Assessment & Plan: Assessment: hx, uses cane LBBB (left bundle branch block) 06/03/2018 03/25/2023 Last Assessment & Plan: Assessment: hx, per EKG, follows cardiology documented as of this encounter (statuses as of 04/25/2023) [facility] of Past illness Narrative* Problem Noted Date Resolved Date Shortness of breath 10/30/2021 03/25/2023 Personal history of fall 07/28/2020 023 Last Assessment & Plan: Assessment: hx, uses cane LBBB (left bundle branch block) 06/03/2018 03/25/2023 Last Assessment & Plan: Assessment: hx, per EKG, follows cardiology documented as of this encounter (statuses as of 04/17/2023) [facility]12-13-2021 History of Past illness Narrative* Problem Noted Date Resolved Date Shortness of breath 10/30/2021 03/25/2023 Personal history of fall 07/28/2020 023 Last Assessment & Plan: Assessment: hx, uses cane LBBB (left bundle branch block) 06/03/2018 03/25/2023 Last Assessment & Plan: Assessment: hx, per EKG, follows cardiology documented as of this encounter (statuses as of 04/18/2023) [facility]12-13-2021 History of Past illness Narrative* Problem Noted Date Resolved Date Shortness of breath 10/30/2021 03/25/2023 Personal history of fall 07/28/2020 023 Last Assessment & Plan: Assessment: hx, uses cane LBBB (left bundle branch block) 06/03/2018 03/25/2023 Last Assessment & Plan: Assessment: hx, per EKG, follows cardiology documented as of this encounter (statuses as of 04/19/2023) [facility]12-13-2021 History of Past illness Narrative* Problem Noted Date Resolved Date Shortness of breath 10/30/2021 03/25/2023 Personal history of fall 07/28/2020 023 Last Assessment & Plan: Assessment: hx, uses cane LBBB (left bundle branch block) 06/03/2018 03/25/2023 Last Assessment & Plan: Assessment: hx, per EKG, follows cardiology documented as of this encounter (statuses as of 04/23/2023) [facility]12[facility]13[facility]2021 History of Past illness Narrative* Problem Noted Date Resolved Date Shortness of breath 10/30/2021 03/25/2023 Personal history of fall 07/28/2020 023 Last Assessment & Plan: Assessment: hx, uses cane LBBB (left bundle branch block) 06/03/2018 03/25/2023 Last Assessment & Plan: Assessment: hx, per EKG, follows cardiology documented as of this encounter (statuses as of 04/23/2023) [facility] History of Past illness Narrative* Problem Noted Date Resolved Date Shortness of breath 10/30/2021 03/25/2023 Personal history of fall 07/28/2020 023 Last Assessment & Plan: Assessment: hx, uses cane LBBB (left bundle branch block) 06/03/2018 03/25/2023 Last Assessment & Plan: Assessment: hx, per EKG, follows cardiology documented as of this encounter (statuses as of 04/24/2023) [facility]12-13-2021 History of Past illness Narrative* Problem Noted Date Resolved Date Shortness of breath 10/30/2021 03/25/2023 Personal history of fall 07/28/2020 023 Last Assessment & Plan: Assessment: hx, uses cane LBBB (left bundle branch block) 06/03/2018 03/25/2023 Last Assessment & Plan: Assessment: hx, per EKG, follows cardiology documented as of this encounter (statuses as of 05/02/2023) [facility]12[facility] History of Past illness Narrative* Problem Noted Date Resolved Date Shortness of breath 10/30/2021 03/25/2023 Personal history of fall 07/28/2020 023 Last Assessment & Plan: Assessment: hx, uses cane LBBB (left bundle branch block) 06/03/2018 03/25/2023 Last Assessment & Plan: Assessment: hx, per EKG, follows cardiology documented as of this encounter (statuses as of 05/03/2023) [facility] History of Past illness Narrative* Problem Noted Date Resolved Date Shortness of breath 10/30/2021 03/25/2023 Personal history of fall 07/28/2020 023 Last Assessment & Plan: Assessment: hx, uses cane LBBB (left bundle branch block) 06/03/2018 03/25/2023 Last Assessment & Plan: Assessment: hx, per EKG, follows cardiology documented as of this encounter (statuses as of 05/03/2023) [facility] History of Past illness Narrative* Problem Noted Date Resolved Date Shortness of breath 10/30/2021 03/25/2023 Personal history of fall 07/28/2020 023 Last Assessment & Plan: Assessment: hx, uses cane LBBB (left bundle branch block) 06/03/2018 03/25/2023 Last Assessment & Plan: Assessment: hx, per EKG, follows cardiology documented as of this encounter (statuses as of 05/10/2023) [facility] History of Past illness Narrative* Problem Noted Date Resolved Date Shortness of breath 10/30/2021 03/25/2023 Personal history of fall 07/28/2020 023 Last Assessment & Plan: Assessment: hx, uses cane LBBB (left bundle branch block) 06/03/2018 03/25/2023 Last Assessment & Plan: Assessment: hx, per EKG, follows cardiology documented as of this encounter (statuses as of 05/15/2023) [facility]11-09-2021 History of Present illness Narrative* Lorri Thomas [...] 26, 2021 2:52 PM [facility] Narrative* Problem Noted Date Resolved Date History of falling 07/28/2020 11/15/2022 documented as of this encounter (statuses as of 11/24/2022) [facility] History of Past illness Narrative* Problem Noted Date Resolved Date History of falling 07/28/2020 11/15/2022 documented as of this encounter (statuses as of 11/26/2022) [facility] History of Past illness Narrative* Problem Noted Date Resolved Date History of falling 07/28/2020 11/15/2022 documented as of this encounter (statuses as of 12/07/2022) [address]10-2020 History of Past illness Narrative* Problem Noted Date Resolved Date History of falling 07/28/2020 11/15/2022 documented as of this encounter (statuses as of 12/13/2022) [address]2020 History of Past illness Narrative* Problem Noted Date Resolved Date History of falling 07/28/2020 11/15/2022 documented as of this encounter (statuses as of 12/18/2022) [address] History of Past illness Narrative* Problem Noted Date Resolved Date History of falling 07/28/2020 11/15/2022 documented as of this encounter (statuses as of 12/20/2022) [address] History of Past illness Narrative* Problem Noted Date Resolved Date History of falling 07/28/2020 11/15/2022 documented as of this encounter (statuses as of 12/27/2022) [address] History of Past illness Narrative* Problem Noted Date Resolved Date History of falling 07/28/2020 11/15/2022 documented as of this encounter (statuses as of 12/27/2022) [place] [address] History of Past illness Narrative* Problem Noted Date Resolved Date History of falling 07/28/2020 11/15/2022 documented as of this encounter (statuses as of 12/28/2022) [address] History of Past illness Narrative* Problem Noted Date Resolved Date History of falling 07/28/2020 11/15/2022 documented as of this encounter (statuses as of 12/28/2022) [place] [address] History of Past illness Narrative* Problem Noted Date Resolved Date History of falling 07/28/2020 11/15/2022 documented as of this encounter (statuses as of 12/28/2022) [place] [address] History of Past illness Narrative* Problem Noted Date Resolved Date History of falling 07/28/2020 11/15/2022 documented as of this encounter (statuses as of 01/30/2023) [place] [address] History of Past illness Narrative* Problem Noted Date Resolved Date History of falling 07/28/2020 11/15/2022 documented as of this encounter (statuses as of 02/08/2023) [facility] Anxiety state Anxiety state, unspecified [facility] Diagnosis Onychomycosis- Primary Dermatophytosis of nail Pain in toe of left foot Pain in limb Pain in toe of right foot Pain in limb Diabetic polyneuropathy associated with type 2 diabetes mellitus (HCC) Hyperkeratosis Acquired keratoderma Nevus Benign neoplasm of skin, site unspecified [facility] Diagnosis Hypercalcemia- Primary Anemia, unspecified type [...] kidney and ureter [facility] Diagnosis Hypercalcemia- Primary [facility] Diagnosis Hyperparathyroidism (HCC)- Primary Hyperparathyroidism, unspecified Hypercalcemia [facility] Diagnosis Onychomycosis- Primary Dermatophytosis of nail Pain in toe of left foot Pain in limb Pain in toe of right foot Pain in limb Diabetic polyneuropathy associated with type 2 diabetes mellitus (HCC) Hyperkeratosis Acquired keratoderma Nevus Benign neoplasm of skin, site unspecified [facility] Diagnosis Hyperlipidemia LDL goal <100 Other and unspecified hyperlipidemia Anxiety state Anxiety state, unspecified [facility] Diagnosis Benign prostatic hyperplasia, unspecified whether lower urinary tract symptoms present- Primary [facility] Diagnosis Primary hypertension- Primary Unspecified essential hypertension Atherosclerosis of [place] coronary artery of [place] heart without angina pectoris Hyperlipidemia LDL goal <100 Other and unspecified hyperlipidemia LBBB (left bundle branch block) Other left bundle branch block Cardiomyopathy, nonischemic (HCC) Other primary cardiomyopathies [facility] Diagnosis Hyperlipidemia LDL goal <100 Other and unspecified hyperlipidemia [facility] Diagnosis Hypercalcemia- Primary Primary hyperparathyroidism (HCC) Primary hyperparathyroidism [facility] Diagnosis Onychomycosis- Primary Dermatophytosis of nail Pain in toe of left foot Pain in limb Pain in toe of right foot Pain in limb Diabetic polyneuropathy associated with type 2 diabetes mellitus (HCC) Xerosis cutis Other specified disease of sebaceous glands [facility] Diagnosis Hyperparathyroidism (HCC)- Primary Hyperparathyroidism, unspecified documented in this encounter [facility] note* Diagnosis Primary hyperparathyroidism (HCC) Primary hyperparathyroidism documented in this encounter [facility] note* Diagnosis Hypercalcemia Hyperparathyroidism (HCC) Hyperparathyroidism, unspecified [facility] Diagnosis Hypercalcemia [facility] Diagnosis Hyperparathyroidism (HCC)- Primary Hyperparathyroidism, unspecified Hyperparathyroidism (HCC) Hyperparathyroidism, unspecified documented in this encounter [facility] note* Diagnosis Controlled type 2 diabetes mellitus with microalbuminuria, without long-term current use of insulin (HCC) Hyperparathyroidism (HCC) Hyperparathyroidism, unspecified [facility] Diagnosis Gout, unspecified cause, unspecified chronicity, unspecified site Hyperparathyroidism (HCC) Hyperparathyroidism, unspecified [facility] Diagnosis Hyperparathyroidism (HCC)- Primary Hyperparathyroidism, unspecified documented in this encounter [facility] note* Diagnosis Hyperparathyroidism (HCC)- Primary Hyperparathyroidism, unspecified documented in this encounter [facility] note* Diagnosis Onset Date Resolution Status Generalized weakness acute Inability to walk acute Hypertension [facility] Work Phone: Evaluation note* Diagnosis Onset Date Resolution Status Effusion, right knee acute Generalized weakness acute Inability to walk acute Hypertension [facility] Work Phone: Evaluation note* Diagnosis Benign prostatic hyperplasia with urinary obstruction- Primary 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, without long-term current use of insulin (HCC) [facility] Diagnosis Osteoarthritis of both knees, unspecified osteoarthritis type- Primary Type 2 diabetes mellitus with diabetic polyneuropathy, without long-term current use of insulin (HCC) Mild cognitive impairment with memory loss Mild cognitive impairment, so stated Lumbar disc disease with radiculopathy Displacement of lumbar intervertebral disc without myelopathy Atherosclerosis of [place] coronary artery of [place] heart without angina pectoris Cardiomyopathy, nonischemic (HCC) [...] Anxiety state, unspecified [facility] Benign prostatic hyperplasia with urinary obstruction- Primary [facility] Benign prostatic hyperplasia with urinary obstruction- Primary Nocturia Poor urinary stream Slowing of urinary stream [facility] Diagnosis Benign prostatic hyperplasia with urinary retention- Primary Poor urinary stream Slowing of urinary stream BPH with obstruction/lower urinary tract symptoms Hypertrophy of prostate with urinary obstruction and other lower urinary tract symptoms (LUTS) Retention of urine, unspecified [facility] Diagnosis Pre-op examination Preoperative examination, unspecified Benign prostatic hyperplasia with urinary retention Retention of urine, unspecified Hyperlipidemia LDL goal <100 Other and unspecified hyperlipidemia Primary hypertension Unspecified essential hypertension Atherosclerosis of [place] coronary artery of [place] heart without angina pectoris Cardiomyopathy, nonischemic (HCC) [...] of urine, unspecified [facility] Diagnosis Urinary retention- Primary Retention of urine, unspecified Anemia, unspecified type Mild cognitive impairment with memory loss Mild cognitive impairment, so stated Atherosclerosis of [place] coronary artery of [place] heart without angina pectoris Cardiomyopathy, nonischemic (HCC) [...] of urine, unspecified [facility] Benign prostatic hyperplasia with urinary retention- Primary [facility] Diagnosis Benign prostatic hyperplasia with urinary retention- Primary [facility] Diagnosis Left posterior capsular opacification- Primary After-cataract, unspecified Pseudophakia Lens replaced by other means Amblyopia, right eye Amblyopia, unspecified Hypertensive retinopathy, bilateral [facility] Diagnosis MOISES (acute kidney injury) ([facility])- Primary Acute kidney failure, unspecified Anemia, unspecified type [facility] Diagnosis Onychomycosis- Primary Dermatophytosis of nail Pain in toe of left foot Pain in limb Pain in toe of right foot Pain in limb Xerosis cutis Other specified disease of sebaceous glands Callus of foot Corns and callosities Hammer toe of left foot Diabetic polyneuropathy associated with type 2 diabetes mellitus (HCC) [facility] Diagnosis Benign prostatic hyperplasia with urinary obstruction [facility] Diagnosis Gout, unspecified cause, unspecified chronicity, unspecified site Anxiety state Anxiety state, unspecified [facility] Diagnosis Onychomycosis- Primary Dermatophytosis of nail Pain in toe of left foot Pain in limb Pain in toe of right foot Pain in limb Callus of foot Corns and callosities Diabetic polyneuropathy associated with type 2 diabetes mellitus (HCC) Hammer toe of left foot [facility] Diagnosis Pre-operative examination- Primary Preoperative examination, unspecified Non-recurrent unilateral inguinal hernia without obstruction or gangrene Mild cognitive impairment with memory loss Mild cognitive impairment, so stated LBBB (left bundle branch block) Other left bundle branch block Hyperlipidemia LDL goal <100 Other and unspecified hyperlipidemia Essential hypertension, benign Atherosclerosis of coronary artery of [place] heart without angina pectoris, unspecified vessel or [...] Degeneration of cervical intervertebral disc Atherosclerosis of [place] coronary artery of [place] heart without angina pectoris Benign prostatic hyperplasia, [...] Primary hypertension Unspecified essential hypertension Atherosclerosis of [place] coronary artery of [place] heart without angina pectoris Cardiomyopathy, nonischemic (HCC) Other primary cardiomyopathies Type 2 diabetes mellitus with other specified complication, without long-term current use of insulin (HCC) Iron deficiency anemia, unspecified iron deficiency anemia type Arteriosclerosis of both carotid arteries Mild cognitive impairment with memory loss Mild cognitive impairment, so stated [facility] Pre-operative examination- Primary Preoperative examination, unspecified Non-recurrent unilateral inguinal hernia without obstruction or gangrene Mild cognitive impairment with memory loss Mild cognitive impairment, so stated LBBB (left bundle branch block) Other left bundle branch block Hyperlipidemia LDL goal <100 Other and unspecified hyperlipidemia Essential hypertension, benign Atherosclerosis of coronary artery of [place] heart without angina pectoris, unspecified vessel or [...] Degeneration of cervical intervertebral disc Atherosclerosis of [place] coronary artery of [place] heart without angina pectoris Benign prostatic hyperplasia, [...] Primary hypertension Unspecified essential hypertension Atherosclerosis of [place] coronary artery of [place] heart without angina pectoris Cardiomyopathy, nonischemic (HCC) [...] of left foot [facility] Pre-operative examination- Primary Preoperative examination, unspecified Non-recurrent unilateral inguinal hernia without obstruction or gangrene Mild cognitive impairment with memory loss Mild cognitive impairment, so stated LBBB (left bundle branch block) Other left bundle branch block Hyperlipidemia LDL goal <100 Other and unspecified hyperlipidemia Essential hypertension, benign Atherosclerosis of coronary artery of [place] heart without angina pectoris, unspecified vessel or [...] Degeneration of cervical intervertebral disc Atherosclerosis of [place] coronary artery of [place] heart without angina pectoris Benign prostatic hyperplasia, [...] Primary hypertension Unspecified essential hypertension Atherosclerosis of [place] coronary artery of [place] heart without angina pectoris Cardiomyopathy, nonischemic (HCC) [...] Incomplete bladder emptying [facility] Pre-operative examination- Primary Preoperative examination, unspecified Non-recurrent unilateral inguinal hernia without obstruction or gangrene Mild cognitive impairment with memory loss Mild cognitive impairment, so stated LBBB (left bundle branch block) Other left bundle branch block Hyperlipidemia LDL goal <100 Other and unspecified hyperlipidemia Essential hypertension, benign Atherosclerosis of coronary artery of [place] heart without angina pectoris, unspecified vessel or [...] Degeneration of cervical intervertebral disc Atherosclerosis of [place] coronary artery of [place] heart without angina pectoris Benign prostatic hyperplasia, [...] Primary hypertension Unspecified essential hypertension Atherosclerosis of [place] coronary artery of [place] heart without angina pectoris Cardiomyopathy, nonischemic (HCC) [...] vaccination against single bacterial disease Atherosclerosis of [place] coronary artery of [place] heart without angina pectoris Hyperlipidemia LDL goal [...] chronicity, unspecified site [facility] Diagnosis Pre-operative examination- Primary Preoperative examination, unspecified Non-recurrent unilateral inguinal hernia without obstruction or gangrene Mild cognitive impairment with memory loss Mild cognitive impairment, so stated LBBB (left bundle branch block) Other left bundle branch block Hyperlipidemia LDL goal <100 Other and unspecified hyperlipidemia Essential hypertension, benign Atherosclerosis of coronary artery of [place] heart without angina pectoris, unspecified vessel or [...] Degeneration of cervical intervertebral disc Atherosclerosis of [place] coronary artery of [place] heart without angina pectoris Benign prostatic hyperplasia, [...] Primary hypertension Unspecified essential hypertension Atherosclerosis of [place] coronary artery of [place] heart without angina pectoris Cardiomyopathy, nonischemic (HCC) [...] CKD (HCC)- Primary [facility] Diagnosis Pre-operative examination- Primary Preoperative examination, unspecified Non-recurrent unilateral inguinal hernia without obstruction or gangrene Mild cognitive impairment with memory loss Mild cognitive impairment, so stated LBBB (left bundle branch block) Other left bundle branch block Hyperlipidemia LDL goal <100 Other and unspecified hyperlipidemia Essential hypertension, benign Atherosclerosis of coronary artery of [place] heart without angina pectoris, unspecified vessel or [...] Degeneration of cervical intervertebral disc Atherosclerosis of [place] coronary artery of [place] heart without angina pectoris Benign prostatic hyperplasia, [...] Primary hypertension Unspecified essential hypertension Atherosclerosis of [place] coronary artery of [place] heart without angina pectoris Cardiomyopathy, nonischemic (HCC) [...] Corns and callosities [facility] Pre-operative examination- Primary Preoperative examination, unspecified Non-recurrent unilateral inguinal hernia without obstruction or gangrene Mild cognitive impairment with memory loss Mild cognitive impairment, so stated LBBB (left bundle branch block) Other left bundle branch block Hyperlipidemia LDL goal <100 Other and unspecified hyperlipidemia Essential hypertension, benign Atherosclerosis of coronary artery of [place] heart without angina pectoris, unspecified vessel or [...] Degeneration of cervical intervertebral disc Atherosclerosis of [place] coronary artery of [place] heart without angina pectoris Benign prostatic hyperplasia, [...] Primary hypertension Unspecified essential hypertension Atherosclerosis of [place] coronary artery of [place] heart without angina pectoris Cardiomyopathy, nonischemic (HCC) Other primary cardiomyopathies Type 2 diabetes mellitus with other specified complication, without long-term current use of insulin (HCC) Iron deficiency anemia, unspecified iron deficiency anemia type Arteriosclerosis of both carotid arteries Mild cognitive impairment with memory loss Mild cognitive impairment, so stated Hyperlipidemia LDL goal <100 Other and unspecified hyperlipidemia [facility] Pre-operative examination- Primary Preoperative examination, unspecified Non-recurrent unilateral inguinal hernia without obstruction or gangrene Mild cognitive impairment with memory loss Mild cognitive impairment, so stated LBBB (left bundle branch block) Other left bundle branch block Hyperlipidemia LDL goal <100 Other and unspecified hyperlipidemia Essential hypertension, benign Atherosclerosis of coronary artery of [place] heart without angina pectoris, unspecified vessel or [...] Degeneration of cervical intervertebral disc Atherosclerosis of [place] coronary artery of [place] heart without angina pectoris Benign prostatic hyperplasia, [...] Primary hypertension Unspecified essential hypertension Atherosclerosis of [place] coronary artery of [place] heart without angina pectoris Cardiomyopathy, nonischemic (HCC) Other primary cardiomyopathies Type 2 diabetes mellitus with other specified complication, without long-term current use of insulin (HCC) Iron deficiency anemia, unspecified iron deficiency anemia type Arteriosclerosis of both carotid arteries Mild cognitive impairment with memory loss Mild cognitive impairment, so stated Benign prostatic hyperplasia with urinary obstruction [facility] Diagnosis Onset Date Resolution Status Admit Date Fall acute April 23, 2025 9:57pm [facility] Work Phone: History and physical note Author Dr. Morgan [facility] March 06, 2023 1:05am Note Date/Time March 06, 2023 12: 37am [facility] Medical Records Department [address] [place] [address] History & Physical Exam 03/06/23 0024 MR#: [id number] Acct: [id number] Name: MICHAEL MULLINS Rep #:[id number] : 1940 82 From: Paty Morgan MD PCP: Dr. Baron Espinoza MD Status:ADM I NO [facility] - General General Date of Admission: [...] anxiety and Depression who presents to the [facility] ED on 03/06/23 with history of [...] patient ministered 1 L normal saline bolus. [facility] Medical History Alzheimer's disease Anxiety Benign prostate [...] 75.4 H, Lymph % (Auto) 13.3 L, Parker % (Auto) 9.3, Eos % (Auto) 1.4, [...] Clarity Clear, Urine pH 8.0, Ur Specific Hendricks 1.010, Urine Protein 100 H, Urine Glucose [...] anxiety and Depression who presents to the [facility] ED on 03/06/23 with history of [...] DVT prophylaxis: Lovenox. #15. CODE status: Patient [place]UM[place] is his and living will is currently [...] 55 minutes. Charges/Coding Visit Charges Inpatient E&M: 26475 Init Hosp L2 Procedures Hospitalists Procedures: [id number] Advncd Care Plan 30 Min 03/06/23 0105 <Electronically signed by Paty Morgan MD> Cosigner Signature (if applicable): CC: Dr. Paty Morgan MD; Dr. Baron Espinoza MD~ Signed [facility] Work Phone: Patient's home Plan of care note* Visit Details Visit Type -SN SOC Discipline -Senior Care Problems Problem Description Start Date Status Goals [...] to notify physician. [facility] Visit Details [...] teach back instruction, to be achieved by 6/30/23. PT Cardiovascular Disease No Interventions Intervention Associated [...] and weight tracking. [facility] Visit Details Visit Type -SHIP JOINER ROUTINE Discipline -Physical Therapy Problems Problem Description [...] and activity guidelines. documented in this encounter [facility]'s home Plan of care note* Visit Details Visit Type -SHIP JOINER ROUTINE Discipline -Physical Therapy Problems Problem Description [...] home exercise program. [facility] Visit Details Visit Type -SN ROUTINE Discipline -Senior Care Problems Problem Description Start Date Status Goals [...] urinary catheter Description: Urinary catheter is a criag catheter. Problem:SN Genitourinary disease process Goal:Patient/Caregiv er [...] earlier this week. documented in this encounter [facility]'s home Plan of care note* Visit Details Visit Type -SHIP JOINER ROUTINE Discipline -Physical Therapy Problems Problem Description [...] and activity guidelines. [facility] Visit Details Visit Type -SHIP JOINER ROUTINE Discipline -Physical Therapy Problems Problem Description [...] home exercise program. documented in this encounter [facility]'s home Plan of care note* Visit Details Visit Type -SHIP JOINER ROUTINE Discipline -Physical Therapy Problems Problem Description Start Date Status Goals Interve ntions Medication Education Disciplines: Skilled Services 03/19/2023 Active 1 goal linked to scheduled/document ed intervention 1 goal intervention scheduled/documen deaneglo in this visit Sepsis Disciplines: Skilled Services [...] on energy conservation. documented in this encounter [facility]'s home Plan of care note* [...] home exercise program. [facility] Visit Details Visit Type -PT AGENCY CHRISTIAN W Dev GERMAN Discipline -Physical Therapy Problems Problem Description Start [...] activity guidelines. documented in this encounter [facility] for referral (narrative)* Outpatient Procedure (Routine) - Authorized Specialty Diagnoses / Procedures Referred By Contac t Referred To Contact [facility] Diagnoses Arteriosclerosis of both carotid arteries Procedures US CAROTID ARTERIES WILY VAS LAB DUPLEX SCAN EXTRACRANIAL ART COMPL BI STUDY Baron Espinoza MD [address] [place] [address] [facility] [address] [facility] [place] [place] [address] Referral ID Status Reason Start Date Expiration Date Visits Requested Visits Authorized [id number] Authorized Auto-Generat ed Referral 05/07/2022 05/07/2023 1 1 [facility] for referral (narrative)* Diagnostic Procedure Only (Routine) - Pending Review Specialty Diagnoses / Procedures Referred By Contac t Referred To Contact XR IMAGING Diagnoses Hypercalcemia Hyperparathyroidism (HCC) Procedures DXA-FOREARM SKELETON DXA BONE DENSITY STUDY 1/>SITES Shanthi Aguilera MD [address] [place] [address] Xr Imaging Referral ID Status Reason Start Date Expiration Date Visits Requested Visits Authorized [id number] Pending Review Auto-Generat ed Referral 06/05/2022 07/05/2023 1 1 [facility] for referral (narrative)* Diagnostic Procedure Only (Routine) - Closed Specialty Diagnoses / Procedures Referred By Contac t Referred To Contact XR IMAGING Diagnoses Hypercalcemia Hyperparathyroidism (HCC) Procedures DXA-FOREARM SKELETON DXA BONE DENSITY STUDY 1/>SITES Shanthi Aguilera MD [address] [place] [address] Xr Imaging Referral ID Status Reason Start Date Expiration Date V isits Requested Visits Authorized [id number] Closed Auto-Generate d Referral 06/05/2022 07/05/2023 1 1 [facility] for referral (narrative)* Diagnostic Procedure Only (Routine) - Closed Specialty Diagnoses / Procedures Referred By Arya colunga Referred To Contact MOLECULAR & FUNCTIONAL IMAGING Diagnoses Hypercalcemia Procedures NM PARATHYROID W SPECT/CT PARATHYROID IMAGING W/TOMOGRAPHIC SPECT & CT Shanthi Rangel MD [address] [place] [address] Molecular & Functional Imaging [address] [place] [address] Referral ID Status Reason Start Date Expiration Date V isits Requested Visits Authorized [id number] Closed Auto-Generate d Referral 12/20/2022 02/03/2023 1 1 [facility] for referral (narrative)* Outpatient Procedure (Routine) - Pending Review Specialty Diagnoses / Procedures Referred By Arya colunga Referred To Contact [facility] Diagnoses Benign prostatic hyperplasia with urinary obstruction Procedures TRUS ONLY US, TRANSRECTAL Dung Gaona MD [address] [place] [address] [place] [address] Referral ID Status Reason Start Date Expiration Date Visits Requested Visits Authorized [id number] Pending Review Auto-Generat ed Referral 2023 2024 1 1 [facility] for referral (narrative)No reason for referral information [facility]WCh[facility] Work Phone: Reason for visit Narrative* Diagnostic Procedure Only (Routine) - Closed Specialty Diagnoses / Procedures Referred By Arya colunga Referred To Contact XR IMAGING Diagnoses Hypercalcemia Hyperparathyroidism (HCC) Procedures DXA-FOREARM SKELETON DXA BONE DENSITY STUDY 1/>SITES APPENDICLR Shanthi Michelle MD [address] [place] [address] Xr Imaging Referral ID Status Reason Start Date Expiration Date V isits Requested Visits Authorized [id number] Closed Auto-Generate d Referral 06/05/2022 07/05/2023 1 1 [facility]* Diagnostic Procedure Only (Routine) - Closed Specialty Diagnoses / Procedures Referred By Contac t Referred To Contact [facility]LECULAR & FUNCTIONAL IMAGING Diagnoses Hypercalcemia Procedures NM PARATHYROID W SPECT/CT PARATHYROID IMAGING W/TOMOGRAPHIC SPECT & CT Shanthi Rangel MD [address] [place] [address] Molecular [facility] Functional Imaging [address] [place] [id number] Referral ID Status Reason Start Date Expiration Date V isits Requested Visits Authorized [id number] Closed Auto-Generate d Referral 12/20/2022 02/03/2023 1 1 [facility] Summary Purpose Family History No Family History Records Found Relationship Condition Age at Onset Recorded Date/T tommy mother Malignant neoplasm Unknown father Cardiac disease Unknown Hypertension Unknown Advance Directives No Advanced Directives Records FoundDocuments on File Type Date Recorded 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 Advance Directive(s) 03/20/2023 1:29 PM Date Activated Date Inactivated Comments 03/19/2023 9:34 PM 05/23/2023 8:32 AM Latest Code Status on File Code Status Date Activated Date Inactivated Comments Full Code 03/19/2023 9:34 PM Documents on File Type Date Recorded 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 Advance Directive(s) 08/29/2020 6:48 AM Advance Directive(s) 08/11/2020 10:04 AM Advance Directive(s) 06/03/2018 7:39 AM Documents on File Type Date Recorded 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 Advance Directive(s) 08/29/2020 6:48 AM Advance Directive(s) 08/11/2020 10:04 AM Advance Directive(s) 06/03/2018 7:39 AM Advance Directive Response Recorded Date/ Time Name of Medical Power of Geodesist alex escobar March 05, 2023 9:33pm Advance Directives Yes November 25, 2015 6:44pm Living Will Yes March 05, 2023 9:33pm Power of Geodesist Yes March 05 9:33pm Advance Directive Response Recorded Date/ Time Name of Medical Power of Geodesist alex leal shawn March 06, 2023 1:27am Advance Directives Yes November 25, 2015 6:44pm Living Will Yes March 06, 2023 1:27am Power of Geodesist Yes March 06 1:27am Documents on File Type Date Recorded 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 Yes April 23, 2025 8:29pm Advance Directives Yes November 25, 2015 6:44pm Advance Directive Response Recorded Date/ Time Do you have a Healthcare Power of Geodesist? No April 24, 2025 2:27am Advance Directives Yes November 25, 2015 6:44pm Reason for Referral Specialty Diagnoses / Procedures Referred By Contac t Referred To Contact Endocrinology Diagnoses Hypercalcemia Procedures CONSULT TO ENDOCRINOLOGY OFFICE/OUTPATIENT [facility] 60-74 MINUTES Baron Espinoza MD [facility] [place] [address] Referral ID Status Reason Start Date Expiration Date Visits Requested Visits Authorized [id number] Authorized PCP Requested Referral 05/09/2022 05/09/2023 1 1 Specialty Diagnoses / Procedures Referred By Contac t Referred To Contact Diagnoses Primary hyperparathyroidism (HCC) Procedures CONSULT TO ENDOCRINE SURGERY OFFICE/OUTPATIENT [facility] 60-74 MINUTES Shanthi Rangel MD [address] [place] [id number] Referral ID Status Reason Start Date Expiration Date Visits Requested Visits Authorized [id number] Authorized PCP Requested Referral 12/13/2022 12/13/2023 1 1 Specialty Diagnoses / Procedures Referred By Contac t Referred To Contact [facility]LECULAR & FUNCTIONAL IMAGING Diagnoses Hypercalcemia Procedures NM PARATHYROID W SPECT/CT PARATHYROID IMAGING W/TOMOGRAPHIC SPECT & CT Shanthi Rangel MD [address] [place] [address] Molecular [facility] Functional Imaging [address] [place] [address] Referral ID Status Reason Start Date Expiration Date Visits Requested Visits Authorized [id number] Pending Review Auto-Generat ed Referral 12/13/2022 01/12/2024 1 1 Specialty Diagnoses / Procedures Referred By Contac t Referred To Contact Diagnoses Hyperparathyroidism (HCC) Procedures IN PERSON CONSULT TO PACC Valerie Munoz MD [facility] [place] [id number] Referral ID Status Reason Start Date Expiration Date Visits Requested Visits Authorized [id number] Ref Not Required PCP Requested Referral 12/28/2022 03/27/2023 1 1 Specialty Diagnoses / Procedures Referred By Contac t Referred To Contact [facility] Diagnoses Hyperparathyroidism (HCC) Procedures ECG COMPLETE ECG ROUTINE ECG W/LEAST 12 LDS W/I&R Valerie Munoz MD [address] [place] [address] [facility] [address] [place] [id number] Referral ID Status Reason Start Date Expiration Date Visits Requested Visits Authorized [id number] Pending Review Auto-Generat ed Referral 12/28/2022 12/27/2023 1 1 Specialty Diagnoses / Procedures Referred By Contac t Referred To Contact Cardiology Diagnoses Cardiomyopathy, nonischemic (HCC) Chronic systolic heart failure (HCC) Controlled type 2 diabetes mellitus with microalbuminuria, without long-term current use of insulin (HCC) (HCC) Procedures CONSULT TO CARDIOLOGY OFFICE/OUTPATIENT [facility] MDM 60 MINUTES Baron Espinoza MD [address] [place] [address] Referral ID Status Reason Start Date Expiration Date Visits Requested Visits Authorized [id number] Authorized PCP Requested Referral 11/13/2025 1 1 Specialty Diagnoses / Procedures Referred By Contac t Referred To Contact Nephrology Diagnoses Stage 3 chronic kidney disease, unspecified whether stage 3a or 3b CKD (HCC) Procedures CONSULT TO NEPHROLOGY OFFICE/OUTPATIENT NEW HIGH MDM 60 MINUTES Baron Espinoza MD [address] [place] [address] Referral ID Status Reason Start Date Expiration Date Visits Requested Visits Authorized [id number] Authorized PCP Requested Referral 11/16/2025 1 1 Chief Complaint and Reason for Visit Chief Complaint ADULT FTT Reason for Visit Generalized weakness Inability to walk Hypertension Chief Complaint ADULT FTT ADULT FTT ADULT FTT Reason for Visit Effusion, right knee Generalized weakness Inability to walk Hypertension Chief Complaint Admit Date FALL, L HIP FRACTURE April 23, 2025 9:57 pm Reason for Visit Admit Date Fall April 23, 2025 9:57p m Chief Complaint Admit Date FALL, L HIP FRACTURE April 23, 2025 9:57 pm FALL, L HIP FRACTURE April 24, 2025 9:20 am FALL, L HIP FRACTURE April 25, 2025 1:49 pm FALL, L HIP FRACTURE April 26, 2025 6:44 pm FALL, L HIP FRACTURE April 27, 2025 6:0 9pm FALL, L HIP FRACTURE April 28, 2025 7:1 0pm CP April 29, 2025 7:55 am FALL, L HIP FRACTURE April 29, 2025 7:2 7pm FALL, L HIP FRACTURE April 30, 2025 6:5 9pm FALL, L HIP FRACTURE May 01, 2025 5:2 8pm FALL, L HIP FRACTURE May 02, 2025 12: 25pm FALL, L HIP FRACTURE May 03, 2025 7:0 8pm FALL, L HIP FRACTURE May 04, 2025 6:5 7pm FALL, L HIP FRACTURE May 05, 2025 7:3 3pm FALL, L HIP FRACTURE May 06, 2025 1:0 2pm Reason for Visit Admit Date Acute ischemic stroke April 23, 2025 9:5 7pm Closed fracture of left hip April 23 9:57pm Fall April 23, 2025 9:57p m Intertrochanteric fracture of left femur April 23, 2025 9:57pm Medications Administered Section Inactive Administered Medications - [...] section and content) DATE CREATED AUTHOR 08/29/2020 [facility] DATE CREATED AUTHOR AUTHOR'S ORGANIZ ATION 03/04/2023 [facility] DATE CREATED AUTHOR AUTHOR'S ORGANIZ ATION 10/04/2024 [facility] DATE CREATED AUTHOR AUTHOR'S ORGANIZ ATION 04/15/2025 [facility] DATE CREATED AUTHOR AUTHOR'S ORGANIZ ATION 05/07/2025 [facility] Source Comments (unrecognize d section and content) In the event this informatio n is protected by the Federal Confidentiality of Alcohol and Drug Abuse Patient Records regulations: The Federal rules restrict any use of the information to criminally investigate or prosecute any alcohol or drug abuse patient.[facility] the event this information is protected by the Federal Confidentiality of Alcohol and Drug Abuse Patient Records regulations: The Federal rules restrict any use of the information to criminally investigate or prosecute any alcohol or drug abuse patient.[facility] the event this information is protected by the Federal Confidentiality of Alcohol and Drug Abuse Patient Records regulations: The Federal rules restrict any use of the information to criminally investigate or prosecute any alcohol or drug abuse patient.[facility] the event this information is protected by the Federal Confidentiality of Alcohol and Drug Abuse Patient Records regulations: The Federal rules restrict any use of the information to criminally investigate or prosecute any alcohol or drug abuse patient.[facility] the event this information is protected by the Federal Confidentiality of Alcohol and Drug Abuse Patient Records regulations: The Federal rules restrict any use of the information to criminally investigate or prosecute any alcohol or drug abuse patient.[facility] the event this information is protected by the Federal Confidentiality of Alcohol and Drug Abuse Patient Records regulations: The Federal rules restrict any use of the information to criminally investigate or prosecute any alcohol or drug abuse patient.[facility] the event this information is protected by the Federal Confidentiality of Alcohol and Drug Abuse Patient Records regulations: The Federal rules restrict any use of the information to criminally investigate or prosecute any alcohol or drug abuse patient.[facility] the event this information is protected by the Federal Confidentiality of Alcohol and Drug Abuse Patient Records regulations: The Federal rules restrict any use of the information to criminally investigate or prosecute any alcohol or drug abuse patient.[facility] the event this information is protected by the Federal Confidentiality of Alcohol and Drug Abuse Patient Records regulations: The Federal rules restrict any use of the information to criminally investigate or prosecute any alcohol or drug abuse patient.[facility] the event this information is protected by the Federal Confidentiality of Alcohol and Drug Abuse Patient Records regulations: The Federal rules restrict any use of the information to criminally investigate or prosecute any alcohol or drug abuse patient.[facility] the event this information is protected by the Federal Confidentiality of Alcohol and Drug Abuse Patient Records regulations: The Federal rules restrict any use of the information to criminally investigate or prosecute any alcohol or drug abuse patient.[facility] Center[facility] the event this information is protected by the Federal Confidentiality of Alcohol and Drug Abuse Patient Records regulations: The Federal rules restrict any use of the information to criminally investigate or prosecute any alcohol or drug abuse patient.[facility] Center[facility] the event this information is protected by the Federal Confidentiality of Alcohol and Drug Abuse Patient Records regulations: The Federal rules restrict any use of the information to criminally investigate or prosecute any alcohol or drug abuse patient.[facility] the event this information is protected by the Federal Confidentiality of Alcohol and Drug Abuse Patient Records regulations: The Federal rules restrict any use of the information to criminally investigate or prosecute any alcohol or drug abuse patient.[facility] Center[facility] the event this information is protected by the Federal Confidentiality of Alcohol and Drug Abuse Patient Records regulations: The Federal rules restrict any use of the information to criminally investigate or prosecute any alcohol or drug abuse patient.[facility] Center[facility] the event this information is protected by the Federal Confidentiality of Alcohol and Drug Abuse Patient Records regulations: The Federal rules restrict any use of the information to criminally investigate or prosecute any alcohol or drug abuse patient.[facility] CenterIn the event this information is protected by the Federal Confidentiality of Alcohol and Drug Abuse Patient Records regulations: The Federal rules restrict any use of the information to criminally investigate or prosecute any alcohol or drug abuse patient.[facility] CenterIn the event this information is protected by the Federal Confidentiality of Alcohol and Drug Abuse Patient Records regulations: The Federal rules restrict any use of the information to criminally investigate or prosecute any alcohol or drug abuse patient.[facility] the event this information is protected by the Federal Confidentiality of Alcohol and Drug Abuse Patient Records regulations: The Federal rules restrict any use of the information to criminally investigate or prosecute any alcohol or drug abuse patient.[facility] CenterIn the event this information is protected by the Federal Confidentiality of Alcohol and Drug Abuse Patient Records regulations: The Federal rules restrict any use of the information to criminally investigate or prosecute any alcohol or drug abuse patient.[facility] CenterIn the event this information is protected by the Federal Confidentiality of Alcohol and Drug Abuse Patient Records regulations: The Federal rules restrict any use of the information to criminally investigate or prosecute any alcohol or drug abuse patient.[facility] CenterIn the event this information is protected by the Federal Confidentiality of Alcohol and Drug Abuse Patient Records regulations: The Federal rules restrict any use of the information to criminally investigate or prosecute any alcohol or drug abuse patient.[facility] CenterIn the event this information is protected by the Federal Confidentiality of Alcohol and Drug Abuse Patient Records regulations: The Federal rules restrict any use of the information to criminally investigate or prosecute any alcohol or drug abuse patient.[facility] CenterIn the event this information is protected by the Federal Confidentiality of Alcohol and Drug Abuse Patient Records regulations: The Federal rules restrict any use of the information to criminally investigate or prosecute any alcohol or drug abuse patient.[facility] CenterIn the event this information is protected by the Federal Confidentiality of Alcohol and Drug Abuse Patient Records regulations: The Federal rules restrict any use of the information to criminally investigate or prosecute any alcohol or drug abuse patient.[facility] CenterIn the event this information is protected by the Federal Confidentiality of Alcohol and Drug Abuse Patient Records regulations: The Federal rules restrict any use of the information to criminally investigate or prosecute any alcohol or drug abuse patient.[facility] CenterIn the event this information is protected by the Federal Confidentiality of Alcohol and Drug Abuse Patient Records regulations: The Federal rules restrict any use of the information to criminally investigate or prosecute any alcohol or drug abuse patient.[facility] CenterIn the event this information is protected by the Federal Confidentiality of Alcohol and Drug Abuse Patient Records regulations: The Federal rules restrict any use of the information to criminally investigate or prosecute any alcohol or drug abuse patient.[facility] CenterIn the event this information is protected by the Federal Confidentiality of Alcohol and Drug Abuse Patient Records regulations: The Federal rules restrict any use of the information to criminally investigate or prosecute any alcohol or drug abuse patient.[facility] CenterIn the event this information is protected by the Federal Confidentiality of Alcohol and Drug Abuse Patient Records regulations: The Federal rules restrict any use of the information to criminally investigate or prosecute any alcohol or drug abuse patient.[facility] CenterIn the event this information is protected by the Federal Confidentiality of Alcohol and Drug Abuse Patient Records regulations: The Federal rules restrict any use of the information to criminally investigate or prosecute any alcohol or drug abuse patient.[facility] CenterIn the event this information is protected by the Federal Confidentiality of Alcohol and Drug Abuse Patient Records regulations: The Federal rules restrict any use of the information to criminally investigate or prosecute any alcohol or drug abuse patient.[facility] CenterIn the event this information is protected by the Federal Confidentiality of Alcohol and Drug Abuse Patient Records regulations: The Federal rules restrict any use of the information to criminally investigate or prosecute any alcohol or drug abuse patient.[facility] CenterIn the event this information is protected by the Federal Confidentiality of Alcohol and Drug Abuse Patient Records regulations: The Federal rules restrict any use of the information to criminally investigate or prosecute any alcohol or drug abuse patient.[facility] CenterIn the event this information is protected by the Federal Confidentiality of Alcohol and Drug Abuse Patient Records regulations: The Federal rules restrict any use of the information to criminally investigate or prosecute any alcohol or drug abuse patient.[facility] CenterIn the event this information is protected by the Federal Confidentiality of Alcohol and Drug Abuse Patient Records regulations: The Federal rules restrict any use of the information to criminally investigate or prosecute any alcohol or drug abuse patient.[facility] CenterIn the event this information is protected by the Federal Confidentiality of Alcohol and Drug Abuse Patient Records regulations: The Federal rules restrict any use of the information to criminally investigate or prosecute any alcohol or drug abuse patient.[facility] CenterIn the event this information is protected by the Federal Confidentiality of Alcohol and Drug Abuse Patient Records regulations: The Federal rules restrict any use of the information to criminally investigate or prosecute any alcohol or drug abuse patient.[facility] CenterIn the event this information is protected by the Federal Confidentiality of Alcohol and Drug Abuse Patient Records regulations: The Federal rules restrict any use of the information to criminally investigate or prosecute any alcohol or drug abuse patient.[facility] CenterIn the event this information is protected by the Federal Confidentiality of Alcohol and Drug Abuse Patient Records regulations: The Federal rules restrict any use of the information to criminally investigate or prosecute any alcohol or drug abuse patient.[facility] CenterIn the event this information is protected by the Federal Confidentiality of Alcohol and Drug Abuse Patient Records regulations: The Federal rules restrict any use of the information to criminally investigate or prosecute any alcohol or drug abuse patient.[facility] CenterIn the event this information is protected by the Federal Confidentiality of Alcohol and Drug Abuse Patient Records regulations: The Federal rules restrict any use of the information to criminally investigate or prosecute any alcohol or drug abuse patient.[facility] CenterIn the event this information is protected by the Federal Confidentiality of Alcohol and Drug Abuse Patient Records regulations: The Federal rules restrict any use of the information to criminally investigate or prosecute any alcohol or drug abuse patient.[facility] CenterIn the event this information is protected by the Federal Confidentiality of Alcohol and Drug Abuse Patient Records regulations: The Federal rules restrict any use of the information to criminally investigate or prosecute any alcohol or drug abuse patient.[facility] CenterIn the event this information is protected by the Federal Confidentiality of Alcohol and Drug Abuse Patient Records regulations: The Federal rules restrict any use of the information to criminally investigate or prosecute any alcohol or drug abuse patient.[facility] CenterIn the event this information is protected by the Federal Confidentiality of Alcohol and Drug Abuse Patient Records regulations: The Federal rules restrict any use of the information to criminally investigate or prosecute any alcohol or drug abuse patient.[facility] CenterIn the event this information is protected by the Federal Confidentiality of Alcohol and Drug Abuse Patient Records regulations: The Federal rules restrict any use of the information to criminally investigate or prosecute any alcohol or drug abuse patient.[facility] CenterIn the event this information is protected by the Federal Confidentiality of Alcohol and Drug Abuse Patient Records regulations: The Federal rules restrict any use of the information to criminally investigate or prosecute any alcohol or drug abuse patient.[facility] CenterIn the event this information is protected by the Federal Confidentiality of Alcohol and Drug Abuse Patient Records regulations: The Federal rules restrict any use of the information to criminally investigate or prosecute any alcohol or drug abuse patient.[facility] CenterIn the event this information is protected by the Federal Confidentiality of Alcohol and Drug Abuse Patient Records regulations: The Federal rules restrict any use of the information to criminally investigate or prosecute any alcohol or drug abuse patient.[facility] CenterIn the event this information is protected by the Federal Confidentiality of Alcohol and Drug Abuse Patient Records regulations: The Federal rules restrict any use of the information to criminally investigate or prosecute any alcohol or drug abuse patient.[facility] CenterIn the event this information is protected by the Federal Confidentiality of Alcohol and Drug Abuse Patient Records regulations: The Federal rules restrict any use of the information to criminally investigate or prosecute any alcohol or drug abuse patient.[facility] CenterIn the event this information is protected by the Federal Confidentiality of Alcohol and Drug Abuse Patient Records regulations: The Federal rules restrict any use of the information to criminally investigate or prosecute any alcohol or drug abuse patient.[facility] CenterIn the event this information is protected by the Federal Confidentiality of Alcohol and Drug Abuse Patient Records regulations: The Federal rules restrict any use of the information to criminally investigate or prosecute any alcohol or drug abuse patient.[facility] CenterIn the event this information is protected by the Federal Confidentiality of Alcohol and Drug Abuse Patient Records regulations: The Federal rules restrict any use of the information to criminally investigate or prosecute any alcohol or drug abuse patient.[facility] CenterIn the event this information is protected by the Federal Confidentiality of Alcohol and Drug Abuse Patient Records regulations: The Federal rules restrict any use of the information to criminally investigate or prosecute any alcohol or drug abuse patient.[facility] CenterIn the event this information is protected by the Federal Confidentiality of Alcohol and Drug Abuse Patient Records regulations: The Federal rules restrict any use of the information to criminally investigate or prosecute any alcohol or drug abuse patient.[facility] CenterIn the event this information is protected by the Federal Confidentiality of Alcohol and Drug Abuse Patient Records regulations: The Federal rules restrict any use of the information to criminally investigate or prosecute any alcohol or drug abuse patient.[facility] CenterIn the event this information is protected by the Federal Confidentiality of Alcohol and Drug Abuse Patient Records regulations: The Federal rules restrict any use of the information to criminally investigate or prosecute any alcohol or drug abuse patient.[facility] CenterIn the event this information is protected by the Federal Confidentiality of Alcohol and Drug Abuse Patient Records regulations: The Federal rules restrict any use of the information to criminally investigate or prosecute any alcohol or drug abuse patient.[facility] CenterIn the event this information is protected by the Federal Confidentiality of Alcohol and Drug Abuse Patient Records regulations: The Federal rules restrict any use of the information to criminally investigate or prosecute any alcohol or drug abuse patient.[facility] CenterIn the event this information is protected by the Federal Confidentiality of Alcohol and Drug Abuse Patient Records regulations: The Federal rules restrict any use of the information to criminally investigate or prosecute any alcohol or drug abuse patient.[facility] CenterIn the event this information is protected by the Federal Confidentiality of Alcohol and Drug Abuse Patient Records regulations: The Federal rules restrict any use of the information to criminally investigate or prosecute any alcohol or drug abuse patient.[facility] CenterIn the event this information is protected by the Federal Confidentiality of Alcohol and Drug Abuse Patient Records regulations: The Federal rules restrict any use of the information to criminally investigate or prosecute any alcohol or drug abuse patient.[facility] CenterIn the event this information is protected by the Federal Confidentiality of Alcohol and Drug Abuse Patient Records regulations: The Federal rules restrict any use of the information to criminally investigate or prosecute any alcohol or drug abuse patient.[facility] CenterIn the event this information is protected by the Federal Confidentiality of Alcohol and Drug Abuse Patient Records regulations: The Federal rules restrict any use of the information to criminally investigate or prosecute any alcohol or drug abuse patient.[facility] CenterIn the event this information is protected by the Federal Confidentiality of Alcohol and Drug Abuse Patient Records regulations: The Federal rules restrict any use of the information to criminally investigate or prosecute any alcohol or drug abuse patient.[facility] CenterIn the event this information is protected by the Federal Confidentiality of Alcohol and Drug Abuse Patient Records regulations: The Federal rules restrict any use of the information to criminally investigate or prosecute any alcohol or drug abuse patient.[facility] the event this information is protected by the Federal Confidentiality of Alcohol and Drug Abuse Patient Records regulations: The Federal rules restrict any use of the information to criminally investigate or prosecute any alcohol or drug abuse patient.[facility] CenterIn the event this information is protected by the Federal Confidentiality of Alcohol and Drug Abuse Patient Records regulations: The Federal rules restrict any use of the information to criminally investigate or prosecute any alcohol or drug abuse patient.[facility] CenterIn the event this information is protected by the Federal Confidentiality of Alcohol and Drug Abuse Patient Records regulations: The Federal rules restrict any use of the information to criminally investigate or prosecute any alcohol or drug abuse patient.[facility] CenterIn the event this information is protected by the Federal Confidentiality of Alcohol and Drug Abuse Patient Records regulations: The Federal rules restrict any use of the information to criminally investigate or prosecute any alcohol or drug abuse patient.[facility] CenterIn the event this information is protected by the Federal Confidentiality of Alcohol and Drug Abuse Patient Records regulations: The Federal rules restrict any use of the information to criminally investigate or prosecute any alcohol or drug abuse patient.[facility] CenterIn the event this information is protected by the Federal Confidentiality of Alcohol and Drug Abuse Patient Records regulations: The Federal rules restrict any use of the information to criminally investigate or prosecute any alcohol or drug abuse patient.[facility] CenterIn the event this information is protected by the Federal Confidentiality of Alcohol and Drug Abuse Patient Records regulations: The Federal rules restrict any use of the information to criminally investigate or prosecute any alcohol or drug abuse patient.[facility] CenterIn the event this information is protected by the Federal Confidentiality of Alcohol and Drug Abuse Patient Records regulations: The Federal rules restrict any use of the information to criminally investigate or prosecute any alcohol or drug abuse patient.[facility] CenterIn the event this information is protected by the Federal Confidentiality of Alcohol and Drug Abuse Patient Records regulations: The Federal rules restrict any use of the information to criminally investigate or prosecute any alcohol or drug abuse patient.[facility] CenterIn the event this information is protected by the Federal Confidentiality of Alcohol and Drug Abuse Patient Records regulations: The Federal rules restrict any use of the information to criminally investigate or prosecute any alcohol or drug abuse patient.[facility] CenterIn the event this information is protected by the Federal Confidentiality of Alcohol and Drug Abuse Patient Records regulations: The Federal rules restrict any use of the information to criminally investigate or prosecute any alcohol or drug abuse patient.[facility] CenterIn the event this information is protected by the Federal Confidentiality of Alcohol and Drug Abuse Patient Records regulations: The Federal rules restrict any use of the information to criminally investigate or prosecute any alcohol or drug abuse patient.[facility] CenterIn the event this information is protected by the Federal Confidentiality of Alcohol and Drug Abuse Patient Records regulations: The Federal rules restrict any use of the information to criminally investigate or prosecute any alcohol or drug abuse patient.[facility] CenterIn the event this information is protected by the Federal Confidentiality of Alcohol and Drug Abuse Patient Records regulations: The Federal rules restrict any use of the information to criminally investigate or prosecute any alcohol or drug abuse patient.[facility] CenterIn the event this information is protected by the Federal Confidentiality of Alcohol and Drug Abuse Patient Records regulations: The Federal rules restrict any use of the information to criminally investigate or prosecute any alcohol or drug abuse patient.[facility] CenterIn the event this information is protected by the Federal Confidentiality of Alcohol and Drug Abuse Patient Records regulations: The Federal rules restrict any use of the information to criminally investigate or prosecute any alcohol or drug abuse patient.[facility] Reason for Visit (unrecogniz ed section and [...] Diagnoses Hypercalcemia Procedures CONSULT TO ENDOCRINOLOGY OFFICE/OUTPATIENT [facility] 60-74 MINUTES Baron Espinoza MD [address] [place] [address] Referral ID Status Reason Start Date Expiration Date V isits Requested Visits Authorized [id number] Closed PCP Requested Referral 05/09/2022 05/09/2023 1 [...] symptoms present Procedures CONSULT TO UROLOGY OFFICE/OUTPATIENT [facility] MDM 60-74 MINUTES Baron Espinoza MD [address] [place] [address] Referral ID Status Reason Start Date Expiration Date V isits Requested Visits Authorized [id number] Closed PCP Requested Referral 11/15/2022 11/15/2023 1 1 Reason Comments Established Patient Reason Onset Date Comments Refill Request 12/07/2022 Reason Comments Established Patient Follow Up Pain Diabetic Foot Care Reason Comments Consult Face Sheet Reason Comments Hyperparathyroidism Specialty Diagnoses / Procedures Referred By Contac t Referred To Contact Diagnoses Primary hyperparathyroidism (HCC) Procedures CONSULT TO ENDOCRINE SURGERY OFFICE/OUTPATIENT NEW HIGH MDM 60-74 MINUTES Shanthi Rangel MD [address] [place] [address] Referral ID Status Reason Start Date Expiration Date V isits Requested Visits Authorized [id number] Closed PCP Requested Referral 12/13/2022 12/13/2023 1 1 Reason Comments Radiology NM Specialty Diagnoses / Procedures Referred By Contac t Referred To Contact MOLECULAR & FUNCTIONAL IMAGING Diagnoses Hypercalcemia Procedures NM PARATHYROID W SPECT/CT PARATHYROID IMAGING W/TOMOGRAPHIC SPECT & CT Shanthi Rangel MD [address] [place] [address] Molecular & Functional Imaging [address] [place] [address] Referral ID Status Reason Start Date Expiration Date V isits Requested Visits Authorized [id number] Closed Auto-Generate d Referral 12/20/2022 02/03/2023 1 [...] t Referred To Contact PRE SURG TESTING [facility] Diagnoses CYSTO, TURP Procedures COMPLETE PST Dung Voss MD [address] [place] [address] Pre Surg Testing [facility] [address] [place] [address] Referral ID Status Reason Start Date Expiration Date Visits Re quested Visits Authorized [id number] Closed 05/06/2023 11/17/2023 1 1 Reason Comments [...] Care Teams (unrecognized sec tion and content) Team Status: Active Member Role Status Dates Dr. Baron Espinoza MD Primary Care Provider Active Team Status: Inactive Member Role Status Dates Dr. Baron Espinoza MD Primary Care Provider Active Start: April 23, 2025 End: May 06, 2025 Dr. Aubrey Pascual , Emergency Provider Active Start : April 23, 2025 End: May 06, 2025 Dr. Paty Morgan MD Admit Provider Active St art: April 23, 2025 End: May 06, 2025 Dr. Payt Morgan MD Other Provider Active St art: April 23, 2025 End: May 06, 2025 Dr. Jose Miranda MD Other Provider Active Sta rt: April 23, 2025 End: May 06, 2025 Dr. Alfonso Albarado DO Other Provider Active Sta rt: April 23, 2025 End: May 06, 2025 Dr. Sonia Torres MD Other Provider Active Start : April 23, 2025 End: May 06, 2025 Dr. Ara Nunez MD Other Provider Active St art: April 23, 2025 End: May 06, 2025 Naima Bennett NP-C Other Provider Active Sta rt: April 23, 2025 End: May 06, 2025 Karli Rollins NP, [employer]TING [employer]ACHINE [employer]PERATOR [employer]PER-C Other Provider Active Start: April 23, 2025 End: May 06, 2025 ALANA Starr Other Provider Active Start: 2024 End: May 06, 2025 Dr. Raven Ayala MD Attending Provider Active Start: April 23, 2025 End: May 06, 2025 Dr. Vern Rao DO Other Provider Active S tart: April 23, 2025 End: May 06, 2025 Team Status: Active Member Role Status Dates Dr. Baron Espinoza MD Primary Care Provider Active Start: April 24, 2025 Dr. Marcelle Klein MD Attending Provider Activ e Start: April 24, 2025 Team Status: Active Member Role Status Dates Dr. Baron Espinoza MD Primary Care Provider Active Start: April 24, 2025 Dr. Aubrey Pacsual DO Emergency Provider Active Start : April 24, 2025 Dr. Paty Morgan MD Admit Provider Active St art: April 24, 2025 Dr. Paty Morgan MD Other Provider Active St art: April 24, 2025 Dr. Marcelle Klein MD Other Provider Active Start: April 24, 2025 Dr. Jose Miranda MD Other Provider Active Sta rt: April 24, 2025 Dr. Vern Rao DO Attending Provider Active Start: April 24, 2025 Team Status: Active Member Role Status Dates Dr. Baron Espinoza MD Primary Care Provider Active Start: April 25, 2025 Dr. Aubrey Pascual DO Emergency Provider Active Start : April 25, 2025 Dr. Paty Morgan MD Admit Provider Active St art: April 25, 2025 Dr. Paty Morgan MD Other Provider Active St art: April 25, 2025 Dr. Jose Miranda MD Other Provider Active Sta rt: April 25, 2025 Dr. Vern Rao DO Attending Provider Active Start: April 25, 2025 Dr. Vern Rao DO Other Provider Active S tart: April 25, 2025 Team Status: Active Member Role Status Dates Dr. Baron Espinoza MD Primary Care Provider Active Start: April 26, 2025 Dr. Aubrey Pascual DO Emergency Provider Active Start : April 26, 2025 Dr. Paty Morgan MD Admit Provider Active St art: April 26, 2025 Dr. Paty Morgan MD Other Provider Active St art: April 26, 2025 Dr. Vern Rao DO Attending Provider Active Start: April 26, 2025 Dr. Vern Rao DO Other Provider Active S tart: April 26, 2025 Dr. Jose Miranda MD Other Provider Active Sta rt: April 26, 2025 Team Status: Active Member Role Status Dates Dr. Baron Espinoza MD Primary Care Provider Active Start: April 27, 2025 Dr. Aubrey Pascual DO Emergency Provider Active Start : April 27, 2025 Dr. Paty Morgan MD Admit Provider Active St art: April 27, 2025 Dr. Paty Morgan MD Other Provider Active St art: April 27, 2025 Dr. Vern Rao DO Attending Provider Active Start: April 27, 2025 Dr. Vern Rao DO Other Provider Active S tart: April 27, 2025 Dr. Jose Miranda MD Other Provider Active Sta rt: April 27, 2025 Team Status: Active Member Role Status Dates Dr. Baron Espinoza MD Primary Care Provider Active Start: April 28, 2025 Dr. Aubrey Pascual DO Emergency Provider Active Start : April 28, 2025 Dr. Paty Morgan MD Admit Provider Active St art: April 28, 2025 Dr. Paty Morgan MD Other Provider Active St art: April 28, 2025 Dr. Vern Rao DO Attending Provider Active Start: April 28, 2025 Dr. Vern Rao DO Other Provider Active S tart: April 28, 2025 Dr. Jose Miranda MD Other Provider Active Sta rt: April 28, 2025 Team Status: Active Member Role Status Dates Dr. Baron Espinoza MD Primary Care Provider Active Start: April 29, 2025 End: April 29, 2025 Dr. Kolby Cr MD Attending Provider Active Start: April 29, 2025 End: April 29, 2025 Dr. Vern Rao DO Referring Provider Active Start: April 29, 2025 End: April 29, 2025 Team Status: Active Member Role Status Dates Dr. Baron Espinoza MD Primary Care Provider Active Start: April 29, 2025 Dr. Aubrey Pascual DO Emergency Provider Active Start : April 29, 2025 Dr. Paty Morgan MD Admit Provider Active St art: April 29, 2025 Dr. Paty Morgan MD Other Provider Active St art: April 29, 2025 Dr. Vern Rao DO Attending Provider Active Start: April 29, 2025 Dr. Vern Rao DO Other Provider Active S tart: April 29, 2025 Dr. Jose Miranda MD Other Provider Active Sta rt: April 29, 2025 Team Status: Active Member Role Status Dates Dr. Baron Espinoza MD Primary Care Provider Active Start: April 30, 2025 Dr. Aubrey Pascual DO Emergency Provider Active Start : April 30, 2025 Dr. Paty Morgan MD Admit Provider Active St art: April 30, 2025 Dr. Paty Morgan MD Other Provider Active St art: April 30, 2025 Dr. Vern Rao DO Attending Provider Active Start: April 30, 2025 Dr. Vern Rao DO Other Provider Active S tart: April 30, 2025 Dr. Jose Miranda MD Other Provider Active Sta rt: April 30, 2025 Team Status: Active Member Role Status Dates Dr. Baron Espinoza MD Primary Care Provider Active Start: May 01, 2025 Dr. Aubrey Pascual DO Emergency Provider Active Start : May 01, 2025 Dr. Paty Morgan MD Admit Provider Active St art: May 01, 2025 Dr. Paty Morgan MD Other Provider Active St art: May 01, 2025 Dr. Vern Rao DO Attending Provider Active Start: May 01, 2025 Dr. Vern Rao DO Other Provider Active S tart: May 01, 2025 Dr. Jose Miranda MD Other Provider Active Sta rt: May 01, 2025 Team Status: Active Member Role Status Dates Dr. Baron Espinoza MD Primary Care Provider Active Start: May 02, 2025 Dr. Aubrey Pascual DO Emergency Provider Active Start : May 02, 2025 Dr. Paty Morgan MD Admit Provider Active St art: May 02, 2025 Dr. Paty Morgan MD Other Provider Active St art: May 02, 2025 Dr. Vern Tereletsky , DO Attending Provider Active Start: May 02, 2025 Dr. Vern Rao , DO Other Provider Active S tart: May 02, 2025 Dr. Jose Miranda MD Other Provider Active Sta rt: May 02, 2025 Team Status: Active Member Role Status Dates Dr. Baron Espinoza MD Primary Care Provider Active Start: May 03, 2025 Dr. Aubrey Pascual , DO Emergency Provider Active Start : May 03, 2025 Dr. Paty Morgan MD Admit Provider Active St art: May 03, 2025 Dr. Paty Morgan MD Other Provider Active St art: May 03, 2025 Dr. Vern Rao , DO Attending Provider Active Start: May 03, 2025 Dr. Vern Rao , DO Other Provider Active S tart: May 03, 2025 Dr. Jose Miranda MD Other Provider Active Sta rt: May 03, 2025 Dr. Alfonso Albarado , DO Other Provider Active Sta rt: May 03, 2025 Dr. Sonia Torres MD Other Provider Active Start : May 03, 2025 Dr. Ara Nunez MD Other Provider Active St art: May 03, 2025 Naima Bennett NP-C Other Provider Active Sta rt: May 03, 2025 Karli Rollins NP, FLAME CUTTING MACHINE OPERATOR HELPER-C Other Provider Active Start: May 03, 2025 ALANA Starr Other Provider Active Start: J 2024 Team Status: Active Member Role Status Dates Dr. Baron Espinoza MD Primary Care Provider Active Start: May 04, 2025 Dr. Aubrey Pascual , DO Emergency Provider Active Start : May 04, 2025 Dr. Paty Morgan MD Admit Provider Active St art: May 04, 2025 Dr. Paty Morgan MD Other Provider Active St art: May 04, 2025 Dr. Vern Rao , DO Attending Provider Active Start: May 04, 2025 Dr. Vern Rao , DO Other Provider Active S tart: May 04, 2025 Dr. Jose Miranda MD Other Provider Active Sta rt: May 04, 2025 Dr. Alfonso Albarado , DO Other Provider Active Sta rt: May 04, 2025 Dr. Sonia Torres MD Other Provider Active Start : May 04, 2025 Dr. Ara Nunez MD Other Provider Active St art: May 04, 2025 Namia Bennett NP-C Other Provider Active Sta rt: May 04, 2025 Karli Rollins NP FLAME CUTTING MACHINE OPERATOR HELPER-C Other Provider Active Start: May 04, 2025 ALANA Starr Other Provider Active Start: J une 2024 Team Status: Active Member Role Status Dates Dr. Baron Espinoza MD Primary Care Provider Active Start: May 05, 2025 Dr. Aubrey Pascual , Emergency Provider Active Start : May 05, 2025 Dr. Paty Morgan MD Admit Provider Active St art: May 05, 2025 Dr. Paty Morgan MD Other Provider Active St art: May 05, 2025 Dr. Jose Miranda MD Other Provider Active Sta rt: May 05, 2025 Dr. Alfonso Albarado , Other Provider Active Sta rt: May 05, 2025 Dr. Sonia Torres MD Other Provider Active Start : May 05, 2025 Dr. Ara Nunez MD Other Provider Active St art: May 05, 2025 JUSTIN LeslieC Other Provider Active Sta rt: May 05, 2025 Karli Rollins NP FLAME CUTTING MACHINE OPERATOR HELPER-C Other Provider Active Start: May 05, 2025 ALANA Starr Other Provider Active Start: J une 2024 Dr. Raven Ayala MD Attending Provider Active Start: May 05, 2025 Dr. Raven Ayala MD Other Provider Active Star t: May 05, 2025 Dr. Vern Rao , Other Provider Active S tart: May 05, 2025 Team Status: Active Member Role Status Dates Dr. Baron Espinoza MD Primary Care Provider Active Start: May 06, 2025 Dr. Aubrey Pascual DO Emergency Provider Active Start : May 06, 2025 Dr. Paty Morgan MD Admit Provider Active St art: May 06, 2025 Dr. Paty Morgan MD Other Provider Active St art: May 06, 2025 Dr. Jose Miranda MD Other Provider Active Sta rt: May 06, 2025 Dr. Alfonso Albarado , Other Provider Active Sta rt: May 06, 2025 Dr. Sonia Torres MD Other Provider Active Start : May 06, 2025 Dr. Ara Nunez MD Other Provider Active St art: May 06, 2025 Naima Bennett NP-C Other Provider Active Sta rt: May 06, 2025 Karli Rollins NP, FLAME CUTTING MACHINE OPERATOR HELPER-C Other Provider Active Start: May 06, 2025 ALANA Starr Other Provider Active Start: J 2024 Dr. Raven Ayala MD Attending Provider Active Start: May 06, 2025 Dr. Raven Ayala MD Other Provider Active Star t: May 06, 2025 Dr. Vern Rao DO Other Provider Active S tart: May 06, 2025 Java Web Architect Relationship Specialty Start Date End Date Baron Espinoza MD [address] [place] [address] PCP - General Family Practice 10/04/21 Java Web Architect Relationship Specialty Start Date End Date Baron Espinoza MD [address] [place] [address] PCP - General Family Practice 10/04/21 Java Web Architect Relationship Specialty Start Date End Date Baron Espinoza MD [address] [place] [address] PCP - General Family Practice 10/04/21 Java Web Architect Relationship Specialty Start Date End Date Baron Espinoza MD [address] [place] [address] PCP - General Family Practice 10/04/21 Java Web Architect Relationship Specialty Start Date End Date Baron Espinoza MD [address] [facility] [address] PCP - General Family Practice 10/04/21 Java Web Architect Relationship Specialty Start Date End Date Baron Espinoza MD [address] [place] [address] PCP - General Family Practice 10/04/21 Java Web Architect Relationship Specialty Start Date End Date Baron Espinoza MD [address] [facility] [place] [address] PCP - General Family Practice 10/04/21 Java Web Architect Relationship Specialty Start Date End Date Baron Espinoza MD [address] [facility] [place] [address] PCP - General Family Practice 10/04/21 Java Web Architect Relationship Specialty Start Date End Date Baron Espinoza MD [address] [facility] [place] [address] PCP - General Family Medicine 10/04/21 Java Web Architect Relationship Specialty Start Date End Date Baron Espinoza MD [address] [facility] [place] [address] PCP - General Family Medicine 10/04/21 Java Web Architect Relationship Specialty Start Date End Date Baron Espinoza MD [address] [facility] [place] [address] PCP - General Family Medicine 10/04/21 Java Web Architect Relationship Specialty Start Date End Date Baron Espinoza MD [address] [facility] [place] [address] PCP - General Family Medicine 10/04/21 Java Web Architect Relationship Specialty Start Date End Date Baron Espinoza MD [address] [facility] [place] [address] PCP - General Family Medicine 10/04/21 Java Web Architect Relationship Specialty Start Date End Date Baron Espinoza MD [address] [facility] [place] [address] PCP - General Family Medicine 10/04/21 Java Web Architect Relationship Specialty Start Date End Date Baron Espinoza MD [address] [facility] [place] [address] PCP - General Family Medicine 10/04/21 Java Web Architect Relationship Specialty Start Date End Date Baron Espinoza MD [address] [facility] [place] [address] PCP - General Family Medicine 10/04/21 Java Web Architect Relationship Specialty Start Date End Date Baron Espinoza MD [address] [facility] [place] [address] PCP - General Family Medicine 10/04/21 Java Web Architect Relationship Specialty Start Date End Date Baron Espinoza MD [address] [facility] [place] [address] PCP - General Family Medicine 10/04/21 Java Web Architect Relationship Specialty Start Date End Date Baron Espinoza MD [address] [facility] [place] [address] PCP - General Family Medicine 10/04/21 Java Web Architect Relationship Specialty Start Date End Date Baron Espinoza MD [address] [place] [place] [address] PCP - General Family Medicine 10/04/21 Java Web Architect Relationship Specialty Start Date End Date Baron Espinoza MD [address] [facility] [place] [address] PCP - General Family Medicine 10/04/21 Java Web Architect Relationship Specialty Start Date End Date Baron Espinoza MD [address] [place] [address] PCP - General Family Medicine 10/04/21 Team Status: Active Member Role Status Dates Dr. Wilfred Vázquez III, MD Family Provider Active Dr. Baron Espinoza MD Primary Care Provider Active Team Status: Active Member Role Status Dates Dr. Baron Espinoza MD Primary Care Provider Active Dr. Christiano Eastman DO Emergency Provider Active Dr. Paty Morgan MD Admit Provider, Attending Prov ider Active Team Status: Active Member Role Status Dates Dr. Baron Espinoza MD Primary Care Provider Active Dr. Christiano Eastman DO Emergency Provider Active Dr. Paty Morgan MD Admit Provider, Other Provider Active Dr. James Griffiths , Attending Provider, Other Provid er Active Team Status: Inactive Member Role Status Dates Dr. Baron Espinoza MD Primary Care Provider Active Dr. Christiano Eastman , Emergency Provider Active Dr. Paty Morgan MD Admit Provider, Other Provider Active Dr. James Griffiths , Attending Provider Active Java Web Architect Relationship Specialty Start Date End Date Baron Espinoza MD [address] [place], [place] [address] PCP - General Family Medicine 10/04/21 Meka Wilkerson, BRICK DROPPER.PROCESS LINE OPERATOR [address] [place], [place] [id number] Referring Internal Medicine 03/16/23 Java Web Architect Relationship Specialty Start Date End Date Baron Espinoza MD [address] [place] [address] PCP - General Family Medicine 10/04/21 Meka Wilkerson, BRICK DROPPER.PROCESS LINE OPERATOR [address] [place] [address] Referring Internal Medicine 03/16/23 Baron Espinoza MD [address] [place] [address] Home Care Provider Family Medicine 03/18/23 Harinder Isaac, RN [address] [place] [address] [employer] Post Acute Care 03/18/23 Java Web Architect Relationship Specialty Start Date End Date Baron Espinoza MD [address] [place], [place] [address] PCP - General Family Medicine 10/04/21 Meka Wilkerson, BRICK DROPPER.PROCESS LINE OPERATOR [address] [place] [address] Referring Internal Medicine 03/16/23 Baron Espinoza MD [address] [place] [address] Home Care Provider Family Medicine 03/18/23 Harinder Isaac, TRACY [address] [place] [address] [employer] Post Acute Care 03/18/23 Java Web Architect Relationship Specialty Start Date End Date Baron Espinoza MD [address] [place] [address] PCP - General Family Medicine 10/04/21 Meka Wilkerson, BRICK DROPPER.PROCESS LINE OPERATOR [address] [place] [address] Referring Internal Medicine 03/16/23 Baron Espinoza MD [address] [place] [address] Home Care Provider Family Medicine 03/18/23 Harinder Isaac RN [address] [place] [address] [employer] Post Acute Care 03/18/23 Java Web Architect Relationship Specialty Start Date End Date Baron Espinoza MD [address] [place] [address] PCP - General Family Medicine 10/04/21 Meka Wilkerson, BRICK DROPPER.PROCESS LINE OPERATOR [address] [place] [address] Referring Internal Medicine 03/16/23 Baron Espinoza MD [address] [place] [address] Home Care Provider Family Medicine 03/18/23 Harinder Isaac RN [address] [place] [address] [employer] Post Acute Care 03/18/23 Java Web Architect Relationship Specialty Start Date End Date Baron Espinoza MD [address] [place] [address] PCP - General Family Medicine 10/04/21 Meka Wilkerson, BRICK DROPPER.PROCESS LINE OPERATOR [address] [place], [place] [id number] Referring Internal Medicine 03/16/23 Baron Espinoza MD [address] [place] [address] Home Care Provider Family Medicine 03/18/23 Harinder Isaac, RN [address] [place] [address] [employer] Post Acute Care 03/18/23 Java Web Architect Relationship Specialty Start Date End Date Baron Espinoza MD [address] [place] [address] PCP - General Family Medicine 10/04/21 Meka Wilkerson, BRICK DROPPER.PROCESS LINE OPERATOR [address] [place] [address] Referring Internal Medicine 03/16/23 Baron Espinoza MD [address] [place] [address] Home Care Provider Family Medicine 03/18/23 Harinder Isaac, RN [address] [place] [address] [employer] Post Acute Care 03/18/23 Java Web Architect Relationship Specialty Start Date End Date Baron Espinoza MD [address] [place] [address] PCP - General Family Medicine 10/04/21 Meka Wilkerson, BRICK DROPPER.PROCESS LINE OPERATOR [address] [place], [place] [id number] Referring Internal Medicine 03/16/23 Baron Espinoza MD [address] [place] [address] Home Care Provider Family Medicine 03/18/23 Harinder Isaac, TRACY [address] [place] [address] [employer] Post Acute Care 03/18/23 Java Web Architect Relationship Specialty Start Date End Date Baron Espinoza MD [address] [place] [address] PCP - General Family Medicine 10/04/21 Meka Wilkerson, BRICK DROPPER.PROCESS LINE OPERATOR [address] [place] [address] Referring Internal Medicine 03/16/23 Baron Espinoza MD [address] [place] [address] Home Care Provider Family Medicine 03/18/23 Harinder Isaac RN [address] [place] [address] [employer] Post Acute Care 03/18/23 Java Web Architect Relationship Specialty Start Date End Date Baron Espinoza MD [address] [place] [address] PCP - General Family Medicine 10/04/21 Meka Wilkerson, BRICK DROPPER.PROCESS LINE OPERATOR [address] [place] [address] Referring Internal Medicine 03/16/23 Baron Espinoza MD [address] [place] [address] Home Care Provider Family Medicine 03/18/23 Harinder Isaac RN [address] [place] [address] [employer] Post Acute Care 03/18/23 Java Web Architect Relationship Specialty Start Date End Date Baron Espinoza MD [address] [place] [address] PCP - General Family Medicine 10/04/21 Meka Wilkerson, BRICK DROPPER.PROCESS LINE OPERATOR [address] [place] [address] Referring Internal Medicine 03/16/23 Baron Espinoza MD [address] [place] [address] Home Care Provider Family Medicine 03/18/23 Harinder Isaac, TRACY [address] [place] [address] [employer] Post Acute Care 03/18/23 Java Web Architect Relationship Specialty Start Date End Date Baron Espinoza MD [address] [place] [address] PCP - General Family Medicine 10/04/21 Meka Wilkerson, BRICK DROPPER.PROCESS LINE OPERATOR [address] [place] [address] Referring Internal Medicine 03/16/23 Baron Espinoza MD [address] [place] [address] Home Care Provider Family Medicine 03/18/23 Harinder Isaac, TRACY [address] [place] [address] [employer] Post Acute Care 03/18/23 Java Web Architect Relationship Specialty Start Date End Date Baron Espinoza MD [address] [place] [address] PCP - General Family Medicine 10/04/21 Meka Wilkerson, BRICK DROPPER.PROCESS LINE OPERATOR [address] [place] [address] Referring Internal Medicine 03/16/23 Baron Espinoza MD [address] [place] [address] Home Care Provider Family Medicine 03/18/23 Java Web Architect Relationship Specialty Start Date End Date Baron Espinoza MD [address] [place] [address] PCP - General Family Medicine 10/04/21 Meka Wilkerson, BRICK DROPPER.PROCESS LINE OPERATOR [address] [place] [address] Referring Internal Medicine 03/16/23 Baron Espinoza MD [address] [place] [address] Home Care Provider Family Medicine 03/18/23 Harinder Isaac, RN [address] [place] [address] [employer] Post Acute Care 03/18/23 Java Web Architect Relationship Specialty Start Date End Date Baron Espinoza MD [address] [place] [address] PCP - General Family Medicine 10/04/21 Meka Wilkerson, BRICK DROPPER.PROCESS LINE OPERATOR [address] [place] [address] Referring Internal Medicine 03/16/23 Baron Espinoza MD [address] [place] [address] Home Care Provider Family Medicine 03/18/23 Harinder Isaac, TRACY [address] [place] [address] [employer] Post Acute Care 03/18/23 Java Web Architect Relationship Specialty Start Date End Date Baron Espinoza MD [address] [place] [address] PCP - General Family Medicine 10/04/21 Meka Wilkerson, BRICK DROPPER.PROCESS LINE OPERATOR [address] [place] [address] Referring Internal Medicine 03/16/23 Baron Espinoza MD [address] [place] [address] Home Care Provider Family Medicine 03/18/23 Java Web Architect Relationship Specialty Start Date End Date Baron Espinoza MD [address] [place] [address] PCP - General Family Medicine 10/04/21 Meka Wilkerson, BRICK DROPPER.PROCESS LINE OPERATOR [address] [place] [address] Referring Internal Medicine 03/16/23 Baron Espinoza MD [address] [place] [address] Home Care Provider Family Medicine 03/18/23 Java Web Architect Relationship Specialty Start Date End Date Baron Espinoza MD [address] [place] [address] PCP - General Family Medicine 10/04/21 Meka Wilkerson, BRICK DROPPER.PROCESS LINE OPERATOR [address] [place] [address] Referring Internal Medicine 03/16/23 Baron Espinoza MD [address] [place] [address] Home Care Provider Family Medicine 03/18/23 Java Web Architect Relationship Specialty Start Date End Date Baron Espinoza MD [address] [place] [address] PCP - General Family Medicine 10/04/21 Meka Wilkerson, BRICK DROPPER.PROCESS LINE OPERATOR [address] [place] [address] Referring Internal Medicine 03/16/23 Baron Espinoza MD [address] [place] [address] Home Care Provider Family Medicine 03/18/23 Java Web Architect Relationship Specialty Start Date End Date Baron Espinoza MD [address] [place] [address] PCP - General Family Medicine 10/04/21 Meka Wilkerson, BRICK DROPPER.PROCESS LINE OPERATOR [address] [place] [address] Referring Internal Medicine 03/16/23 Baron Espinoza MD [address] [place] [address] Home Care Provider Family Medicine 03/18/23 Java Web Architect Relationship Specialty Start Date End Date Baron Espinoza MD [address] [place] [address] PCP - General Family Medicine 10/04/21 Meka Wilkerson, BRICK DROPPER.PROCESS LINE OPERATOR [address] [place] [address] Referring Internal Medicine 03/16/23 Baron Espinoza MD [address] [place] [address] Home Care Provider Family Medicine 03/18/23 Java Web Architect Relationship Specialty Start Date End Date Baron Espinoza MD [address] [place] [address] PCP - General Family Medicine 10/04/21 Meka Wilkerson, BRICK DROPPER.PROCESS LINE OPERATOR [address] [place] [address] Referring Internal Medicine 03/16/23 Baron Espinoza MD [address] [place] [address] Home Care Provider Family Medicine 03/18/23 Java Web Architect Relationship Specialty Start Date End Date Baron Espinoza MD [address] [place] [address] PCP - General Family Medicine 10/04/21 Meka Wilkerson, BRICK DROPPER.PROCESS LINE OPERATOR [address] [place] [address] Referring Internal Medicine 03/16/23 Baron Espinoza MD [address] [place] [address] Home Care Provider Family Medicine 03/18/23 Java Web Architect Relationship Specialty Start Date End Date Baron Espinoza MD [address] [place] [address] PCP - General Family Medicine 10/04/21 Meka Wilkersno BRICK DROPPER.PROCESS LINE OPERATOR [address] [place] [address] Referring Internal Medicine 03/16/23 Baron Espinoza MD [address] [place] [address] Home Care Provider Family Medicine 03/18/23 Java Web Architect Relationship Specialty Start Date End Date Baron Espinoza MD [address] [place], [place] [address] PCP - General Family Medicine 10/04/21 Meka Wilkerson, BRICK DROPPER.PROCESS LINE OPERATOR [address] [place] [address] Referring Internal Medicine 03/16/23 Baron Espinoza MD [address] [place], [place] 547021 Home Care Provider Family Medicine 03/18/23 Java Web Architect Relationship Specialty Start Date End Date Baron Espinoza MD [address] [place], [place] 423731 PCP - General Family Medicine 10/04/21 Meka Wilkerson, BRICK DROPPER.PROCESS LINE OPERATOR [address] [place] [address] Referring Internal Medicine 03/16/23 Baron Espinoza MD [address] [place] [address] Home Care Provider Family Medicine 03/18/23 Java Web Architect Relationship Specialty Start Date End Date Baron Espinoza MD [address] [place] [address] PCP - General Family Medicine 10/04/21 Meka Wilkerson, BRICK DROPPER.PROCESS LINE OPERATOR [address] [place] [address] Referring Internal Medicine 03/16/23 Baron Espinoza MD [address] [place], [place] 593071 Home Care Provider Family Medicine 03/18/23 Java Web Architect Relationship Specialty Start Date End Date Baron Espinoza MD [address] [place], [place] [address] PCP - General Family Medicine 10/04/21 Meka Wilkerson, BRICK DROPPER.PROCESS LINE OPERATOR [address] [place] [address] Referring Internal Medicine 03/16/23 Baron Espinoza MD [address] [place] [address] Home Care Provider Family Medicine 03/18/23 Java Web Architect Relationship Specialty Start Date End Date Baron Espinoza MD [address] [place], [place] [address] PCP - General Family Medicine 10/04/21 Meka Wilkerson APRN.PROCESS LINE OPERATOR [address] [place] [address] Referring Internal Medicine 03/16/23 Baron Espinoza MD [address] [place] [address] Home Care Provider Family Medicine 03/18/23 Java Web Architect Relationship Specialty Start Date End Date Baron Espinoza MD [address] [place], [place] [address]81 PCP - General Family Medicine 10/04/21 Meka Wilkerson APRN.PROCESS LINE OPERATOR [address] [place] [address] Referring Internal Medicine 03/16/23 Baron Espinoza MD [address] [place] [address] Home Care Provider Family Medicine 03/18/23 Java Web Architect Relationship Specialty Start Date End Date Baron Espinoza MD [address] [place] [address] PCP - General Family Medicine 10/04/21 Meka Samson APRN.PROCESS LINE OPERATOR [address] [place] [id number] Referring Internal Medicine 03/16/23 Baron Espinoza MD [address] [place], [place] 449931 Home Care Provider Family Medicine 03/18/23 Java Web Architect Relationship Specialty Start Date End Date Baron Espinoza MD [address] [place], [place] 6[address]21 PCP - General Family Medicine 10/04/21 Meka Samson APRN.PROCESS LINE OPERATOR [address] [place], [place] [id number] Referring Internal Medicine 03/16/23 Baron Espinoza MD [address] [place], [place] [address] Home Care Provider Family Medicine 03/18/23 Java Web Architect Relationship Specialty Start Date End Date Baron Espinoza MD [address] [place], [place] [address]81 PCP - General Family Medicine 10/04/21 Meka Samson BRICK DROPPER.PROCESS LINE OPERATOR [address] [place], [place] [id number] Referring Internal Medicine 03/16/23 Baron Espinoza MD [address] [place], [place] [address] Home Care Provider Family Medicine 03/18/23 Java Web Architect Relationship Specialty Start Date End Date Alex Sexton BRICK DROPPER.ADELINA, DNP [address] [place] [address] PCP - General Family Medicine 06/01/21 10/03/21 Java Web Architect Relationship Specialty Start Date End Date Baron Espinoza MD [address] [place], [place] [address]64351 PCP - General Family Medicine 10/04/21 Meka Samson APRN.PROCESS LINE OPERATOR [address] [place] [address] Referring Internal Medicine 03/16/23 Baron Espinoza MD [address] [place] [address] Home Care Provider Family Medicine 03/18/23 Java Web Architect Relationship Specialty Start Date End Date Baron Espinoza MD [address] [place], [place] 6[address]41 PCP - General Family Medicine 10/04/21 Meka Samson APRN.PROCESS LINE OPERATOR [address] [place] [address] Referring Internal Medicine 03/16/23 Baron Espinoza MD [address] [place] [address] Home Care Provider Family Medicine 03/18/23 Java Web Architect Relationship Specialty Start Date End Date Baron Espinoza MD [address] [place] [address] PCP - General Family Medicine 10/04/21 Meka Samson APRN.PROCESS LINE OPERATOR [address] [place] [address] Referring Internal Medicine 03/16/23 Baron Espinoza MD [address] [place] [address] Home Care Provider Family Medicine 03/18/23 Java Web Architect Relationship Specialty Start Date End Date Baron Espinoza MD [address] [place], [place] [address] PCP - General Family Medicine 10/04/21 Meka Samson APRN.PROCESS LINE OPERATOR [address] [place] [address] Referring Internal Medicine 03/16/23 Baron Espinoza MD [address] [place] [address] Home Care Provider Family Medicine 03/18/23 Bisi Buenrostro APRN.PROCESS LINE OPERATOR [address] [place] [address] Supervisor Coin Machine Family Medicine 10/26/24 Selena Velásquez APRN.PROCESS LINE OPERATOR [address] [place] [address] Supervisor [employer] Family Medicine 10/26/24 Java Web Architect Relationship Specialty Start Date End Date Baron Epsinoza MD [address] [place], [place] [id number] PCP - General Family Medicine 10/04/21 Meka Samson APRN.PROCESS LINE OPERATOR [address] [place] [id number] Referring Internal Medicine 03/16/23 Baron Espinoza MD [address] [place], [place] [address] Home Care Provider Family Medicine 03/18/23 Bisi Buenorstro APRN.PROCESS LINE OPERATOR [address] [place], [place] [id number] Supervisor [employer] Family Medicine 10/26/24 Selena Velásquez BRICK DROPPER.PROCESS LINE OPERATOR [address] [facility] [place] [address] Supervisor [employer] Family Medicine 10/26/24 Java Web Architect Relationship Specialty Start Date End Date Baron Espinoza MD [address] [facility], [place] [id number] PCP - General Family Medicine 10/04/21 Meka Samson BRICK DROPPER.PROCESS LINE OPERATOR [address] [place] [phone] Referring Internal Medicine 03/16/23 Baron Espinoza MD [address] [facility] [place] [address] Home Care Provider Family Medicine 03/18/23 Bisi Buenrostro BRICK DROPPER.PROCESS LINE OPERATOR [address] [place] [address] Supervisor Coin Machine Family Medicine 10/26/24 Selena Velásquez BRICK DROPPER.PROCESS LINE OPERATOR [address] [facility] [place] [address] Supervisor [employer] Family Medicine 10/26/24 Java Web Architect Relationship Specialty Start Date End Date Baron Espinoza MD [address] [facility] [place] [address] PCP - General Family Medicine 10/04/21 Meka Samson, BRICK DROPPER.PROCESS LINE OPERATOR [address] [place], [place] [phone] Referring Internal Medicine 03/16/23 Baron Espinoza MD [address] [place] [address] Home Care Provider Family Medicine 03/18/23 Bisi Buenrostro APRN.PROCESS LINE OPERATOR [address] [facility] [place] [address] Supervisor Coin Machine Family Medicine 10/26/24 Selena Velásquez BRICK DROPPER.PROCESS LINE OPERATOR [address] [facility] [place] [address] Supervisor Coin Machine Family Medicine 10/26/24 Java Web Architect Relationship Specialty Start Date End Date Baron Espinoza MD [address] [place] [address] PCP - General Family Medicine 10/04/21 Meka Samson APRN.PROCESS LINE OPERATOR [address] [place] [id number] Referring Internal Medicine 03/16/23 Baron Espinoza MD [address] [place], [place] [address]391 Home Care Provider Family Medicine 03/18/23 Bisi Buenrostro BRICK DROPPER.PROCESS LINE OPERATOR [address] [place] [address] Supervisor Coin Machine Family Medicine 10/26/24 Selena Velásquez BRICK DROPPER.PROCESS LINE OPERATOR [address] [place], [place] [id number] Supervisor Coin Machine Family Medicine 10/26/24 Java Web Architect Relationship Specialty Start Date End Date Baron Espinoza MD [address] [facility] [place] [phone] PCP - General Family Medicine 10/04/21 Meka Samson, ESTHER.PROCESS LINE OPERATOR [address] [place] [address] Referring Internal Medicine 03/16/23 Baron Espinoza MD [address] [place], [place] 540571 Home Care Provider Family Medicine 03/18/23 Bisi Buenrostro APRN.PROCESS LINE OPERATOR [address] [place], [place] [phone] Supervisor Coin Machine [facility] 10/26/24 Selena Velásquez BRICK DROPPER.PROCESS LINE OPERATOR [address] [place], [place] [phone] Supervisor Coin Machine [facility] 10/26/24 Team Status: Active Member Role Status Dates Dr. Baron Espinoza MD Primary Care Provider Active Start: April 23, 2025 Dr. Aubrey Pascual DO Emergency Provider Active Start : April 23, 2025 Dr. Paty Morgan MD Admit Provider Active St art: April 23, 2025 Dr. Paty Morgan MD Attending Provider Active Start: April 23, 2025 Goals (unrecognized section and content) Goals may be documented in a n alternate sectionGoals may be documented in an alternate section Active Administered Medications - up [...] on Sat01/01/24 at 0800, Until Sat01/01/24 at 1959, Administer for dilation Given 01/01/2024 7:54 AM [...] BE BASED ON THE PRIMARY CLINICAL RECORDS. [facility] [employer] [facility]. provides no warranty or guarantee of the accuracy or completeness of information in this document.
[2025-05-10 08:49] LABS: Hematocrit 14.9 % (40-54); Mean Corp Hgb Conc 30.9 g/dL (32-36); Mean Corpuscular Hgb 32.9 pg (27.0-32.0); Mean Corpuscular Volume 106.4 fL (80-94); Mean Platelet Vol. 11.3 fl (6.2-12.0); POSITIVE COUNT YES; POSITIVE MORPHOLOGY YES; Platelet Count 441 K/mm3 (150-450); RBC Distribution Width CV 21.3 % (11.6-14.6); White Blood Count 13.7 K/mm3 (4.4-11.0)
[2025-05-10 08:58] LABS: Scan Indicated on CBC? Y/N YES- FLAGS NOTED
[2025-05-10 08:59] LABS: Hemoglobin 4.6 g/dL (13.0-16.5)
[2025-05-10 09:40] LABS: Differential Comment SCANNED
[2025-05-10 10:01] LABS: Anion Gap 14 (5-15); BUN 103 mg/dL (4-19); BUN/Creat Ratio 37.1 RATIO (10-20); Calcium,Total 7.9 mg/dL (7.6-11.0); Carbon Dioxide 18.4 mmol/L (21.0-32.0); Chloride 124 mmol/L (98-108); Creatinine, Serum 2.78 mg/dL (0.70-1.20); EST Glomerular Filtration Rate 22 (>60); Glucose 141 mg/dL (70-99); Potassium 4.4 mmol/L (3.3-5.1); Sodium Level 156 mmol/L (133-145)
== END ==
LOC: OLS.WCC 04:00
PROVIDERS: PCP Family Medicine; Referring Provider Family Medicine; Visit Provider Family Medicine
DX: F03.90 Unspecified dementia, unspecified severity, without behavioral disturbance, psychotic disturbance, mood disturbance, and anxiety (principal)
CPT/HCPCS: 36415; 80048; 85027